=== PATIENT | male | born 1950 | race Caucasian/White ===

== ENCOUNTER 2016-10-31 15:22 | Emergency (ER) | payer OTHER ==
[~2016-10-31] VITALS: Ht 177.8 cm; Wt 120.2 kg
[~2016-10-31 15:22] MED LIST: AMLODIPINE10 MG PO; ASPIRIN EC81 M1 PO; ATENOLOL50 MG PO; BACTRIM DS 8001 TAB PO; CLONIDINE HCL0.1 MG PO; CLONIDINE HYDR0.1 MG PO; FLEXERIL 5MG TAB5 MG PO; GLIMEPIRIDE1 MG PO; GOOD SENSE ASP325 MG PO; HYZAAR 25 MG-101 TAB PO; LANTUS SOL100 UNIT/1 SC; LANTUS SOLOS100 U/ML SC; LEVOTHYROXIN0.137 MG PO; LEVOTHYROXINE137 MCG PO; MEDROL4 MG PO; METOPROLOL TAR100 M1 PO; MIRALAX17 GM PO; OMEPRAZOLE40 MG PO; PERCOCET 325 MG1 TA2 PO; PRAVASTATIN SOD40 MG PO; PRAVASTATIN40 MG PO; PYRIDIUM200 MG PO; ROXICODONE5 MG PO; SENNA CON/DOCUS1 TAB PO; TAMSULOSIN HCL0.4 M1 PO; TRAZODONE HCL150 M1 PO; TRAZODONE150 MG PO; ULTRAM(MONOGRAP50 MG PO; VALIUM2 MG PO; VALIUM5 M1 PO; VICODIN5-300 PO; VICTOZA 3-0.6 MG/0.1 PO; VICTOZA6 MG/ML SC; VOLTAREN GEL1% TOP; ZOFRAN4 M1 SL
--- NOTE | 2016-10-31 15:54 | ED DYSPNEA/ASTHMA COMPLAINT ---
History of Present Illness General Chief Complaint: Dyspnea (COPD, CHF, Other) Stated Complaint: BIBA FOR DYSPNEA ON EXERTION Source: patient, old records Exam Limitations: no limitations Allergies Coded Allergies: morphine (Mild, LOOPY 10/31/16) hydromorphone (DEPRESSED RESPIRATIONS 10/31/16) Reconcile Medications Amlodipine Besylate (Amlodipine) 10 MG TABLET 1 TAB PO DAILY HEART (Reported) Aspirin (Ecotrin*) 325 MG TABLET.DR 1 TAB PO DAILY HEART/BLOOD (Reported) Clonidine HCl 0.1 MG TABLET 1 TAB PO BID BP (Reported) Fluticasone/Vilanterol (Breo Ellipta 100-25 Mcg INH) (Unknown Strength) BLST.W.DEV (Unknown Dose) INH PRN RESPIRATORY (Reported) Folic Acid 1 MG TABLET 1 TAB PO DAILY SUPPLEMENT (Reported) Glimepiride 1 MG TAB 1 TAB PO DAILY DIABETES (Reported) Insulin Glargine,Hum.rec.anlog (Lantus Solostar) 100 UNIT/1 ML INSULN.PEN 68 UNITS SC AT BEDTIME DIABETES (Reported) Levothyroxine Sodium 137 MCG TABLET 2 TAB PO DAILY AC THYROID (Reported) Liraglutide (Victoza 3-Zeus) 0.6 MG/0.1 ML PEN.INJCTR 1.8 MG PO DAILY DIABETES (Reported) Losartan/Hydrochlorothiazide (Losartan-Hctz 100-25 MG Tab) 100 MG-25 MG TABLET 1 TAB PO DAILY BP (Reported) Metoprolol Tartrate 100 MG TABLET 1 TAB PO DAILY HEART (Reported) Omeprazole 40 MG CAPSULE.DR 1 CAP PO DAILY GI (Reported) Pravastatin Sodium (Pravastatin) 40 MG TAB 2 TAB PO QPM CHOLESTEROL (Reported ) Tamsulosin HCl 0.4 MG CAP.ER.24H 1 CAP PO DAILY PROSTATE (Reported) Trazodone HCl 150 MG TABLET 2 TAB PO QPM SLEEP (Reported) Triage Note: BIBA FROM HOME FOR SOB XMONTHS, PALPITATIONS, AND RIGHT SIDED CHEST PAIN. PT STATES PAIN RADIATES INTO BACK. UPON ARRIVAL PT A+OX4, CHEERFUL, SPEAKING IN LONG SENTENCES WITH NO RESP DIFFICULTY. 02 97% ON RA. Triage Nurses Notes Reviewed? yes Onset: Gradual Duration: constant Timing: recent history Severity: severe Activities at Onset: none HPI: Patient is a 66-year-old male with a past medical history of type 2 diabetes insulin-dependent, CKD, COPD not on home O2, previous smoker for 40 year history of 4 times a day smoking discontinued smoking approximately 3 years ago, CAD with 2 stents and thyroid cancer in remission who presents to emergency room same that yesterday evening at rest patient had dyspepsia epigastric discomfort and belching gas pain in which he states that it went away however an hour later patient then started complaining of gradual onset of substernal chest heaviness. Patient states that the chest heaviness has persisted for the past 18 hours and which she has had associated symptoms of left neck and jaw and arm heaviness. Patient does present with a remote chronic history of dyspnea and dyspnea on exertion FOR THE past 18 hours symptoms have been worse. Patient did take 325 mg aspirin today Patient denies any fever, chills, nausea vomiting back pain abdominal pain leg swelling hemoptysis (SEVEN CHANG) Vital Signs & Intake/Output Vital Signs & Intake/Output Vital Signs Date Time Temp Pulse Resp B/P Pulse O2 O2 Flow FiO2 Ox Delivery Rate 10/31 1753 86 106/00 10/31 1730 97.2 90 16 100/68 97 Room Air 10/31 1701 87 16 152/84 10/31 1531 83 16 137/90 97 Room Air 10/31 1530 97 Room Air Past History Travel History Traveled to [place] past 21 day No Medical History Any Pertinent Medical History? see below for history Neurological: NONE EENT: NONE Cardiovascular: CAD, hypertension Respiratory: COPD Gastrointestinal: NONE Hepatic: NONE Renal: chronic kidney disease Musculoskeletal: NONE Psychiatric: NONE Endocrine: diabetes, THYROID CA Cancer(s): THYROID CA History of MRSA: No History of VRE: No History of CDIFF: No Surgical History Surgical History: CARDIAC STENTS, THYROIDECTOMY Psychosocial History Who do you live with Significant Other Services at Home None What is your primary language Nepali Tobacco Use: Quit >30 days ago ETOH Use: denies use Illicit Drug Use: denies illicit drug use Family History Family History, If Any: FATHER Relation not specified for: FH: heart disease Hx Contributory? No (SEVEN CHANG) Review of Systems Review of Systems Constitutional: Reports: no symptoms. EENTM: Reports: no symptoms. Respiratory: Reports: see HPI. Cardiovascular: Reports: see HPI. GI: Reports: no symptoms. Genitourinary: Reports: no symptoms. Musculoskeletal: Reports: no symptoms. Skin: Reports: no symptoms. Neurological/Psychological: Reports: no symptoms. Hematologic/Endocrine: Reports: no symptoms. Immunologic/Allergic: Reports: no symptoms. All Other Systems: Reviewed and Negative (CHERYL VARGAS,SEVEN) Physical Exam Physical Exam General Appearance: no apparent distress, alert, comfortable Respiratory: chest non-tender, quiet respiration, decreased breath sounds Comments: HEENT: Normal EENT exam, extraocular motion intact, no nystagmus. Pupils equally round and reactive to light and accommodation. Nose is atraumatic. External auditory canal and Tympanic membranes clear. Pharynx normal. No swelling or edema. Neck: Supple, no lymphadenopathy, normal range of motion without pain or tenderness Back: Nontender, no CVA tenderness. Cardiovascular: Regular rate and rhythms no murmurs rubs or gallops, normal JVP Respiratory: Chest nontender. No respiratory distress.breath sounds clear to auscultation bilaterally Abdomen: Soft, nontender nondistended, no appreciable organomegaly. Normal bowel sounds. No ascites Extremity: No edema, no calf tenderness to palpation, normal and equal pulses. Neuro: Alert oriented x3, motor sensory normal, Skin: No appreciable rash on exposed skin, skin is warm and dry. Psych: Mood and affect is normal, memory and judgment is normal. Core Measures ACS in differential dx? Yes ASA ordered for poss ACS? WAS ADMINISTERED PRIOR TO ARRIVAL Severe Sepsis Present: No Septic Shock Present: No (CHERYL VARGAS,SEVEN) Progress Differential Diagnosis: asthma, AMI, bronchitis, costochondritis, CHF, COPD, musculoskeletal pain, pericarditis, pulmonary embolism, pneumonia, pneumothorax, rib fracture, unstable angina, CAD Diagnostic Imaging: Viewed by Me: Radiology Read. Radiology Impression: no acute abnormality Initial ED EKG: SINUS RHYTHM NOTED 83 BPM, LAD Prior EKG: unchanged Comments: PATIENT: DEEPIKA BRANDT PRESENT AGE: 66 PATIENT ACCOUNT NO: [id number] : 52 LOCATION: [facility] ORDERING PHYSICIAN: SEVEN VARGAS SERVICE DATE: 10/31/169335 EXAM TYPE: RAD - XRY-CHEST XRAY, PA AND LATERAL EXAMINATION: XR CHEST CLINICAL INFORMATION: Shortness breath. Chest pain. COMPARISON: Chest x-ray 03/02/2016 TECHNIQUE: PA and lateral views of the chest were obtained. FINDINGS: Asymmetric elevation of right diaphragm compared to left. No acute abnormality. No pulmonary vascular congestion. Lungs are clear. No pleural effusion pneumothorax. Orthopedic plate and screw at lower cervical spine. Multilevel degenerative spondylosis of dorsal spine Compared to prior study no change. IMPRESSION: No acute abnormality. (CHERYL VARGAS,SEVEN) Plan of Care: Orders Procedure Date/time Status Telemetry/Environmental Health Manager 10/31 1559 Active THYROID STIMULATING HORMONE 10/31 155 Complete TROPONIN LEVEL 10/31 155 Complete LIPASE 10/31 1559 Complete FREE T4 10/31 1559 Complete D-DIMER 10/31 1559 Complete COMPREHENSIVE METABOLIC PANEL 10/31 1559 Complete CBC WITHOUT DIFFERENTIAL 10/31 1559 Complete B-TYPE NATRIURETIC PEP (BNP) 10/31 155 Complete AMYLASE 10/31 155 Complete EKG 10/31 1523 Active Current Medications Sig/Julissa Start time Last Medication Dose Stop Time Status Admin Heparin Sodium 5,000 UNIT ONCE ONE 10/31 1745 CAN (Porcine) 10/31 1746 (Heparin Bolus) Nitroglycerin 0.4 MG ONCE ONE 10/31 1730 CAN (Nitrostat) 10/31 1731 Laboratory Tests 10/31/16 1607: Anion Gap 12, Estimated GFR 17 L, BUN/Creatinine Ratio 11.9, Glucose 69, Calcium 6.1 L, Total Bilirubin 0.6, AST 21, ALT 15 L, Alkaline Phosphatase 77, Troponin I 2.60 *H, Naw-Q-Udlthpxvijr Pept 9880 H, Total Protein 6.3, Albumin 3.4 L, Globulin 2.9, Albumin/Globulin Ratio 1.2, Amylase 45, Lipase 144, TSH < 0.015 L, Free T4 1.77, D-Dimer 430 H, CBC w Diff NO MAN DIFF REQ, RBC 4.71, MCV 77.6 L, MCH 26.6 L, RDW 12.6, MPV 7.0 L, Gran % 74.0, Lymphocytes % 15.3 L, Monocytes % 8.9, Eosinophils % 1.5, Basophils % 0.3, Absolute Granulocytes 5.0, Absolute Lymphocytes 1.0 L, Absolute Monocytes 0.6, Absolute Eosinophils 0.1, Absolute Basophils 0, PUBS MCHC 34.3 Patient on initial exam was in no apparent distress no respiratory distress patient did take 325 mg of aspirin earlier today. Patient still had concerning unrelenting chest heaviness for the past 18 hours. Patient was given sublingual nitroglycerin with no relief of symptoms. I discussed patient with Dr. Lee who evaluated patient's EKG which showed no concerning acute findings and no change from previous EKG on February 2016. It was noted through Dr. Lee that patient had a stress test performed last December with no acute findings however we discussed that due to patient's significant comorbidities and concerning chest heaviness that patient should be admitted. Discussed admission with Dr. RUELAS who evaluate the patient and agrees with disposition and plan. It was noted that patient did have a critical finding of a 2.6 troponin which I discussed again symptoms with Dr. Lee and which after second sublingual nitroglycerin glycerin he still had 5-10 chest heaviness in which at this time Dr. Lee had requested patient to be transferred to [facility] for cardiac catheterization in which Dr. VELAZCO was accepting physician for catheterization. Discussed disposition plan with patient who agrees and signed consent form to be transferred. Patient also was advised by Dr. Lee to receive IV heparin and heparin bolus. Patient had a negative fecal occult blood test administered prior to IV heparin Patient also was provided with Nitropaste and Lopressor On discharge patient was in no apparent distress and stable (SEVEN CHANG) Departure Departure Disposition: OTHER [facility] (ACUTE) Condition: Critical Clinical Impression Primary Impression: ACS (acute coronary syndrome) Secondary Impressions: Acute on chronic renal failure, Elevated troponin Referrals: CARLITA PAGE DO (PCP/Family) Departure Forms: Customer Survey General Discharge Information (SEVEN CHANG) PA/CHESTNUT TANNER Co-Sign Statement Statement: ED Attending supervision documentation- x I saw and evaluated the patient. I have also reviewed all the pertinent lab results and diagnostic results. I agree with the findings and the plan of care as documented in the PA's/CHESTNUT TANNER's documentation. [] I have reviewed the ED Record and agree with the PA's/CHESTNUT TANNER's documentation. [] Additions or exceptions (if any) to the PAs/CHESTNUT TANNER's note and plan are summarized below: [] (JESSENIA ELDRIDGE,SANYA) Critical Care Note Critical Care Note Critical Care Time: 30-74 min (SEVEN CHANG)
[2016-10-31 16:15] LABS: ABSOLUTE BASOPHIL COUNT 0 /CUMM (0.0-0.2); ABSOLUTE EOSINOPHIL COUNT 0.1 /CUMM (0.0-0.7); ABSOLUTE MONOCYTE COUNT 0.6 /CUMM (0.10-0.60); BASOPHIL % 0.3 % (0.0-2.0); EOSINOPHIL % 1.5 % (0-5); HEMATOCRIT 36.6 % (42-52); MEAN CORPUSCULAR HGB 26.6 PG (27.0-31.0); MEAN CORPUSCULAR HGB CONC 34.3 G/DL (33.0-37.0); MEAN CORPUSCULAR VOLUME 77.6 FL (80.0-94.0); PLATELET COUNT 277 /CUMM (130-400); RBC DISTRIBUTION WIDTH 12.6 % (11.5-14.5); RED BLOOD CELL CT 4.71 /CUMM (4.70-6.10); WHITE BLOOD CELL COUNT 6.8 /CUMM (4.8-10.8)
[2016-10-31] MEDS ORDERED: ASPIRIN EC325 M2 PO (16:21)
[2016-10-31] MEDS ORDERED: FOLIC ACID1 M1 PO (16:24)
[2016-10-31] MEDS ORDERED: LOSARTAN-HCTZ1 EAC2 PO (16:24)
[2016-10-31] MEDS ORDERED: BREO ELLIPTA 11 EACH INH (16:25)
--- NOTE | 2016-10-31 17:07 | RADIOLOGY REPORT ---
EXAMINATION: XR CHEST CLINICAL INFORMATION: Shortness breath. Chest pain. COMPARISON: Chest x-ray 03/02/2016 TECHNIQUE: PA and lateral views of the chest were obtained. FINDINGS: Asymmetric elevation of right diaphragm compared to left. No acute abnormality. No pulmonary vascular congestion. Lungs are clear. No pleural effusion pneumothorax. Orthopedic plate and screw at lower cervical spine. Multilevel degenerative spondylosis of dorsal spine Compared to prior study no change. IMPRESSION: No acute abnormality.
[2016-10-31 17:53] VITALS: BP 106/00
[2017-01-11] MEDS ORDERED: LIPITOR80 M1 PO (15:58)
[2017-01-11] MEDS ORDERED: ASPIRIN EC81 M1 PO (15:58)
[2017-01-11] MEDS ORDERED: BRILINTA90 M1 PO (15:58)
[2017-01-11] MEDS ORDERED: ISOSORBIDE MONO60 M1 PO (15:58)
[2017-01-11] MEDS ORDERED: RENVELA800 M1 PO (15:59)
[2017-01-11] MEDS ORDERED: NORVASC10 M1 PO (15:59)
== END 2016-10-31 17:57 | disposition short-term general hospital (02) ==
LOC: ERH 15:22
PROVIDERS: Physician Assistant
DX: I24.8 Other forms of acute ischemic heart disease (principal); N17.9 Acute kidney failure, unspecified; N18.9 Chronic kidney disease, unspecified; R77.8 Other specified abnormalities of plasma proteins; I10 Essential (primary) hypertension; J44.9 Chronic obstructive pulmonary disease, unspecified; Z87.891 Personal history of nicotine dependence
CPT/HCPCS: 93005; 93010; 96374; 96375; 99291; J1644; J3490

== ENCOUNTER → 2017-01-17 | Day surgery (SDC) | payer OTHER, MEDICARE ==
[~2017-01-17] VITALS: Ht 177.8 cm; Wt 108.9 kg
[~2017-01-17] MED LIST changes: +ASPIRIN EC325 M2 PO; +BREO ELLIPTA 11 EACH INH; +BRILINTA90 M1 PO; +FOLIC ACID1 M1 PO; +ISOSORBIDE MONO60 M1 PO; +LANTUS SOL100 UNIT/1 SQ; +LASIX40 M1 PO; +LEVEMIR100 UNIT/1 SC; +LIPITOR80 M1 PO; +LOSARTAN-HCTZ1 EAC2 PO; +NEPRO CARB STE237 ML PO; +NORVASC10 M1 PO; +PLAVIX75 M1 PO; +PROAIR HFA8.5 GM INH; +RENVELA800 M1 PO; +ROZEREM8 M1 PO; +SENNA S TABLET1 EACH PO; +SYMBICORT 16010.2 GM INH; +SYNTHROID200 MCG PO; +SYNTHROID25 MCG PO; +XANAX0.5 M1 PO; +ZOLOFT100 M1 PO; +ZOLOFT50 M1 PO
--- NOTE | 2017-01-17 09:55 | Operative Report ---
Operative/Inv Procedure Report Surgery Date: 01/17/17 Name of Procedure: L BRACHEOCEPHALIC AV FISTULA Pre-Operative Diagnosis: Chronic kidney disease Post-Operative Diagnosis: Same Estimated Blood Loss: scant Surgeon/Log Buyer: EDMUNDO PENA MD Anesthesia: local monitored anesthesi Operative/Procedure Note Note: The patient was brought to the operating room and placed on the operating table in the supine position and prepped and draped in the usual fashion. Prior to starting the procedure, a timeout was taken to confirm the patient and procedure. Additionally, a preoperative dose of Ancef was administered prior to incision. We began by anesthetizing the region beneath the antecubital crease on the left arm with 1% lidocaine and half percent Marcaine mixed 50-50. Approximately 3 cm incision was made to encompass the cephalic vein and the brachial artery. We dissected down to the brachial artery through the aponeurosis of the biceps muscle and encircled it proximally and distally. The cephalic vein was freed up for approximately 3 cm, and ligated distally at a bifurcation. The patient was given 3000 units of heparin which were allowed to circulate. We then swung the cephalic vein over to approximate the brachial artery. An end-to-side anastomosis was performed with a running 6-0 Prolene suture. At the completion, there was a strong thrill felt in the cephalic vein and a palpable left radial pulse. I irrigated the wound with nonheparinized saline. Some topical fibrillar was placed for hemostasis. The wound was closed in 2 layers including a running 3-0 Vicryl for the subcutaneous tissues, a running 4-0 Monocryl for the subcuticular layer and topical skin glue was placed. I was present and scrubbed throughout the procedure, there were no specimens sent. Needle counts were correct. CC: JULIA CHE MD; Geo SHINE MD
== END ==
LOC: STS 01:02
DX: E11.22 Type 2 diabetes mellitus with diabetic chronic kidney disease (principal); I13.10 Hypertensive heart and chronic kidney disease without heart failure, with stage 1 through stage 4 chronic kidney disease, or unspecified chronic kidney disease; N18.6 End stage renal disease; Z79.4 Long term (current) use of insulin; J44.9 Chronic obstructive pulmonary disease, unspecified; Z87.891 Personal history of nicotine dependence
CPT/HCPCS: J0690; J1644; J2250

== ENCOUNTER 2017-01-18 11:15 | Emergency (ER) | payer OTHER, MEDICARE ==
[~2017-01-18] VITALS: Ht 177.8 cm; Wt 108.9 kg
[~2017-01-18 11:15] MED LIST changes: -LANTUS SOL100 UNIT/1 SQ; -LASIX40 M1 PO; -LEVEMIR100 UNIT/1 SC; -NEPRO CARB STE237 ML PO; -PLAVIX75 M1 PO; -PROAIR HFA8.5 GM INH; -ROZEREM8 M1 PO; -SENNA S TABLET1 EACH PO; -SYMBICORT 16010.2 GM INH; -SYNTHROID200 MCG PO; -SYNTHROID25 MCG PO; -XANAX0.5 M1 PO; -ZOLOFT100 M1 PO; -ZOLOFT50 M1 PO
--- NOTE | 2017-01-18 13:19 | ED CARDIAC/CP/PALPITATIONS ---
History of Present Illness General Chief Complaint: General Adult Stated Complaint: PT FEEL LIKE HIS HEART IS POUNDING Source: patient, family, old records Exam Limitations: no limitations Vital Signs & Intake/Output Vital Signs & Intake/Output Vital Signs Date Time Temp Pulse Resp B/P Pulse O2 O2 Flow FiO2 Ox Delivery Rate 01/18 1330 97.7 92 18 131/75 96 Room Air 01/18 1144 98.9 96 20 111/69 100 Room Air Allergies Coded Allergies: morphine (Mild, LOOPY 01/18/17) hydromorphone (DEPRESSED RESPIRATIONS 01/18/17) Uncoded Allergies: CONTRAST DYE (CONTRAINDICATED 01/11/17) Reconcile Medications Amlodipine Besylate (Amlodipine) 10 MG TABLET 1 TAB PO DAILY HEART (Reported) Amlodipine Besylate (Norvasc) 10 MG TABLET 1 TAB PO DAILY HTN (Reported) Aspirin (Ecotrin*) 325 MG TABLET.DR 1 TAB PO DAILY HEART/BLOOD (Reported) Aspirin (Ecotrin*) 81 MG TABLET.DR 1 TAB PO DAILY CAD (Reported) Atorvastatin Calcium (Lipitor) 80 MG TABLET 1 TAB PO DAILY CHOLESTEROL ( Reported) Clonidine HCl 0.1 MG TABLET 1 TAB PO BID BP (Reported) Fluticasone/Vilanterol (Breo Ellipta 100-25 Mcg INH) (Unknown Strength) BLST.W.DEV (Unknown Dose) INH PRN RESPIRATORY (Reported) Folic Acid 1 MG TABLET 1 TAB PO DAILY SUPPLEMENT (Reported) Insulin Glargine,Hum.rec.anlog (Lantus Solostar) 100 UNIT/1 ML INSULN.PEN 62 UNITS SC AT BEDTIME DIABETES (Reported) Isosorbide Mononitrate (Isosorbide Mononitrate ER) 60 MG TAB.ER.24H 1 TAB PO DAILY CAD (Reported) Levothyroxine Sodium 137 MCG TABLET 2 TAB PO DAILY AC THYROID (Reported) Liraglutide (Victoza 3-Zeus) 0.6 MG/0.1 ML PEN.INJCTR 1.8 MG PO DAILY DIABETES (Reported) Metoprolol Tartrate 100 MG TABLET 1 TAB PO DAILY HEART (Reported) Omeprazole 40 MG CAPSULE.DR 1 CAP PO DAILY GI (Reported) Sevelamer Carbonate (Renvela) 800 MG TABLET 2 TAB PO TID ESRD (Reported) Tamsulosin HCl 0.4 MG CAP.ER.24H 1 CAP PO DAILY PROSTATE (Reported) Ticagrelor (Brilinta) 90 MG TABLET 1 TAB PO BID CAD (Reported) Trazodone HCl 150 MG TABLET 1 TAB PO QPM SLEEP (Reported) Triage Note: TRIAGE: PT TO ER WITH S/O C/C "I HAD A PROCEDURE DONE YESTERDAY IN MY ARM. THEY PUT A FISTULA IN. I CAME HOME AND WAS FINE UNTIL LAST NIGHT AT 11 PM I TOOK 2 PERCOCET AND I WOKE UP THIS MORNING ABOUT 4 O'CLOCK AND I JUST FEEL TERRIBLE. MY HEAD IS SPINNING. I HAVE NAUSEA. SPOTS BEFORE MY EYES. I THOUGHT MY PULSE WAS A LITTLE HIGH." PT COMPLAINS OF 02/16 TO L ARM S/P PROCEDURE YESTERDAY, SHARP IN NATURE, WORSE WITH MOVEMENT AND PAIN FREE IF NOT MOVING. Triage Nurses Notes Reviewed? yes HPI: Patient is a 67-year-old male postop day 1 left upper extremity AV fistula placement presents complaining of nausea and lightheadedness. Patient reports that he felt nauseous his way home from the surgery yesterday and vomited once. At 5:00 this morning patient awoke with nausea and lightheadedness. Mild to moderate pain to the area of the surgery. Patient took a dose of Percocet yesterday evening, has not taken any pain medication today. Patient concerned that there is infection related to the surgery and presents for evaluation. Surgery was performed at [facility] by Dr. Rodriguez. Patient has not spoken with his surgeon today. Patient denies chest pain, palpitations, difficulty breathing, fevers, chills, abdominal pain, diarrhea (NATALIA VARGAS,JOAN) Past History Travel History Traveled to [place] past 21 day No Medical History Any Pertinent Medical History? 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 No (JOAN MERCADO) Review of Systems Review of Systems Constitutional: Denies: chills, fever. EENTM: Reports: no symptoms. Respiratory: Denies: cough, short of breath. Cardiovascular: Denies: chest pain, palpitations. GI: Reports: nausea, vomiting (1 episode yesterday). Denies: abdominal pain. Musculoskeletal: Reports: see HPI. Skin: Reports: see HPI. Neurological/Psychological: Reports: no symptoms. Hematologic/Endocrine: Reports: bruising (mild around surgical site). Immunologic/Allergic: Reports: no symptoms. (JOAN MERCADO) Physical Exam Physical Exam General Appearance: alert, awake Head: atraumatic, normal appearance Eyes: Bilateral: normal appearance, PERRL, EOMI. Ears, Nose, Throat: normal pharynx, normal ENT inspection, hearing grossly normal Neck: normal inspection, supple, full range of motion Respiratory: normal breath sounds, chest non-tender, no respiratory distress, lungs clear Cardiovascular: regular rate/rhythm Peripheral Pulses: 2+ radial (L) Back: normal inspection, normal range of motion Neurologic/Psych: no motor/sensory deficits, awake, alert, oriented x 3, normal gait Skin: surgical wound left upper extremity anteriorly with Steri-Strips in place. 2-3 cm of surrounding ecchymosis. No erythema. No induration. No drainage Lymphatic: no axillary adenopathy Core Measures ACS in differential dx? Yes ASA ordered for poss ACS? No-ACS ruled out Severe Sepsis Present: No Septic Shock Present: No (JOAN MERCADO) Progress Differential Diagnosis: postoperative infection, postoperative seroma, hematoma, acute coronary syndrome, DVT Initial ED EKG: sinus rhythm 94 bpm left axis deviation, prolonged QT intervals, no acute changes from previous EKG Prior EKG: unchanged Rhythm Strip: normal sinus rhythm (JOAN MERCADO) Plan of Care: Orders Procedure Date/time Status EKG 01/18 1119 Active No signs of infection on exam. Patient denies chest pain or dyspnea. Does not feel similar to previous heart attack. I suspect that symptoms are secondary to anesthesia of his recent seizure as the nausea began on his way home from the hospital yesterday. Discussed with and seen by Dr. Joy. Discussed with Ezequiel Allison PA-C for Dr. Rodriguez: Have patient contact office for his post op visit, usually 10-14 days after surgery. Can be seen earlier if continues with any problems. (JOAN MERCADO) Departure Departure Time of Disposition: 1408 Disposition: HOME OR SELF CARE Condition: Stable Clinical Impression Primary Impression: Nausea Secondary Impressions: Lightheadedness Referrals: CARLITA PAGE DO (PCP/Family) Additional Instructions: Follow up with Dr. Rodriguez for further evaluation. Call today to arrange for your post-operative follow up appointment. Return to the ER if fevers, redness spreading from the surgical wound, pus from the wound or worsening of symptoms. Departure Forms: Customer Survey General Discharge Information (JOAN MERCADO) PA/PUBLICATION MANAGER Co-Sign Statement Statement: ED Attending supervision documentation- [X] I saw and evaluated the patient. I have also reviewed all the pertinent lab results and diagnostic results. I agree with the findings and the plan of care as documented in the PA's/PUBLICATION MANAGER's documentation. [] I have reviewed the ED Record and agree with the PA's/PUBLICATION MANAGER's documentation. [] Additions or exceptions (if any) to the PAs/PUBLICATION MANAGER's note and plan are summarized below: [] (JIMBO ELDRIDGE,TESFAYE Telles) Critical Care Note Critical Care Note Critical Care Time: non-applicable (JOAN MERCADO)
[2017-01-18 13:30] VITALS: BP 131/75
== END 2017-01-18 14:20 ==
LOC: ERH 11:15
DX: R11.0 Nausea (principal); R42 Dizziness and giddiness
CPT/HCPCS: 93005; 93010

== ENCOUNTER 2017-01-24 00:49 | Inpatient (IN) | payer OTHER, MEDICARE ==
[~2017-01-24] VITALS: Ht 177.8 cm; Wt 105.4 kg
--- NOTE | 2017-01-24 00:53 | ED CARDIAC/CP/PALPITATIONS ---
History of Present Illness General Chief Complaint: Chest Pain Stated Complaint: BIBA FOR CHEST PRESSURE Source: patient, old records, EMS Exam Limitations: no limitations Vital Signs & Intake/Output Vital Signs & Intake/Output Vital Signs Date Time Temp Pulse Resp B/P Pulse O2 O2 Flow FiO2 Ox Delivery Rate 01/24 0305 98.2 104 20 161/81 01/24 0305 104 161/81 01/24 0251 98.5 102 20 151/79 97 Nasal 2.0L Cannula 01/24 0204 97 Nasal 2.0L Cannula 01/24 0150 102 22 144/66 97 Nasal 2.0L Cannula 01/24 0135 104 158/72 01/24 0052 99.1 109 22 158/72 98 Nasal 2.0L Cannula Allergies Coded Allergies: morphine (Mild, LOOPY 01/18/17) hydromorphone (DEPRESSED RESPIRATIONS 01/18/17) Uncoded Allergies: CONTRAST DYE (CONTRAINDICATED 01/11/17) Reconcile Medications Amlodipine Besylate (Amlodipine) 10 MG TABLET 1 TAB PO DAILY HEART (Reported) Amlodipine Besylate (Norvasc) 10 MG TABLET 1 TAB PO DAILY HTN (Reported) Aspirin (Ecotrin*) 325 MG TABLET.DR 1 TAB PO DAILY HEART/BLOOD (Reported) Aspirin (Ecotrin*) 81 MG TABLET.DR 1 TAB PO DAILY CAD (Reported) Atorvastatin Calcium (Lipitor) 80 MG TABLET 1 TAB PO DAILY CHOLESTEROL ( Reported) Clonidine HCl 0.1 MG TABLET 1 TAB PO BID BP (Reported) Fluticasone/Vilanterol (Breo Ellipta 100-25 Mcg INH) (Unknown Strength) BLST.W.DEV (Unknown Dose) INH PRN RESPIRATORY (Reported) Folic Acid 1 MG TABLET 1 TAB PO DAILY SUPPLEMENT (Reported) Insulin Glargine,Hum.rec.anlog (Lantus Solostar) 100 UNIT/1 ML INSULN.PEN 62 UNITS SC AT BEDTIME DIABETES (Reported) Isosorbide Mononitrate (Isosorbide Mononitrate ER) 60 MG TAB.ER.24H 1 TAB PO DAILY CAD (Reported) Levothyroxine Sodium 137 MCG TABLET 2 TAB PO DAILY AC THYROID (Reported) Liraglutide (Victoza 3-Zeus) 0.6 MG/0.1 ML PEN.INJCTR 1.8 MG PO DAILY DIABETES (Reported) Metoprolol Tartrate 100 MG TABLET 1 TAB PO DAILY HEART (Reported) Omeprazole 40 MG CAPSULE.DR 1 CAP PO DAILY GI (Reported) Sevelamer Carbonate (Renvela) 800 MG TABLET 2 TAB PO TID ESRD (Reported) Tamsulosin HCl 0.4 MG CAP.ER.24H 1 CAP PO DAILY PROSTATE (Reported) Ticagrelor (Brilinta) 90 MG TABLET 1 TAB PO BID CAD (Reported) Trazodone HCl 150 MG TABLET 1 TAB PO QPM SLEEP (Reported) Triage Nurses Notes Reviewed? yes Onset: Gradual Duration: day(s):, waxing and waning Timing: recent history Quality/Severity: moderate Location: central Radiation: no radiation Activities at Onset: none Prior Chest Pain/Card Workup: heart attack Aspirin Today: 325 mg x 1, provided by EMS Associated Symptoms: chest pain, dyspnea, HPI: 67yo gentleman, h/o stents x 3 from [place] 2 months ago, presents with 1 day of substernal chest pressure, off and on, associated with shortness of breath, exertional, with pre-syncopal symptoms. He notes, "I can't lay flat... I prefer to sit straight up.... I've been like this all day." No lower extremity swelling, fever, chills, cough, sputum. Past History Travel History Traveled to [place] past 21 day No Medical History Any Pertinent Medical History? 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 No Review of Systems Review of Systems Constitutional: Reports: no symptoms. EENTM: Reports: no symptoms. Respiratory: Reports: no symptoms. Cardiovascular: Reports: no symptoms. GI: Reports: no symptoms. Genitourinary: Reports: no symptoms. Musculoskeletal: Reports: no symptoms. Skin: Reports: no symptoms. Neurological/Psychological: Reports: no symptoms. Hematologic/Endocrine: Reports: no symptoms. Immunologic/Allergic: Reports: no symptoms. All Other Systems: Reviewed and Negative Physical Exam Physical Exam General Appearance: well developed/nourished, mild distress Head: atraumatic, normal appearance Eyes: Bilateral: normal appearance. Ears, Nose, Throat: normal pharynx, normal ENT inspection Neck: normal inspection, supple, full range of motion Respiratory: normal breath sounds, chest non-tender, no respiratory distress, quiet respiration, lungs clear Cardiovascular: regular rate/rhythm Gastrointestinal: normal bowel sounds, soft, non-tender, no organomegaly Rectal: normal exam, heme negative stool Back: normal inspection, normal range of motion Extremities: normal inspection, normal capillary refill, normal range of motion, trace edema Neurologic/Psych: no motor/sensory deficits, awake, alert, oriented x 3 Skin: intact, normal color, warm/dry Core Measures ACS in differential dx? Yes ASA ordered for poss ACS? Yes-ordered Severe Sepsis Present: No Septic Shock Present: No Progress Differential Diagnosis: AMI, CHF/pulm edema, costochondritis, pneumonia Plan of Care: Orders Procedure Date/time Status Admit to inpatient 01/25 332 Active Patient Data 01/24 030 Active TROPONIN LEVEL 01/24 53 Complete PARTIAL THROMBOPLASTIN TIME 01/24 53 Complete PROTHROMBIN TIME 01/24 53 Complete COMPREHENSIVE METABOLIC PANEL 01/24 53 Complete CBC WITHOUT DIFFERENTIAL 01/24 53 Complete EKG 01/24 51 Active Current Medications Sig/Julissa Start time Last Medication Dose Stop Time Status Admin Heparin Sodium 25,000 UNIT Q24H 01/24 330 UNVr (Porcine) (Heparin) Sodium Chloride 500 ML Heparin Sodium 5,000 UNIT ONCE ONE 01/24 330 UNVr (Porcine) 01/24 331 (Heparin Bolus) Laboratory Tests 01/24/17 0125: Anion Gap 13, Estimated GFR 14 L, BUN/Creatinine Ratio 9.8, Glucose 98, Calcium 6.6 L, Total Bilirubin 0.7, AST 19, ALT 17 L, Alkaline Phosphatase 91, Troponin I 0.61 *H, Total Protein 6.2 L, Albumin 3.5, Globulin 2.7, Albumin/ Globulin Ratio 1.3, PT 11.8, INR 1.13, APTT 30, CBC w Diff NO MAN DIFF REQ, RBC 3.90 L, MCV 79.7 L, MCH 26.4 L, RDW 13.5, MPV 7.1 L, Gran % 80.7 H, Lymphocytes % 10.5 L, Monocytes % 7.7, Eosinophils % 1.1, Basophils % 0 L, Absolute Granulocytes 8.2 H, Absolute Lymphocytes 1.1 L, Absolute Monocytes 0.8 H, Absolute Eosinophils 0.1, Absolute Basophils 0, PUBS MCHC 33.2 Diagnostic Imaging: Viewed by Me: Radiology Read. Discussed w/RAD: Radiology Read. CXR Impression: MILD EDEMA... FULL REPORT BELOW. Pre-Hospital EKG: normal axis, normal intervals, normal p-waves, normal QRS complex, normal sinus rhythm Initial ED EKG: normal axis, normal intervals, normal p-waves, normal QRS complex, normal sinus rhythm, q waves v1,v2.. no change from prior Comments: PATIENT: DEEPIKA BRANDT PRESENT AGE: 67 PATIENT ACCOUNT NO: [id number] : 52 LOCATION: [facility] ORDERING PHYSICIAN: ONI GARCIA MD SERVICE DATE: 01/24/17 EXAM TYPE: RAD - XRY-PORTABLE CHEST XRAY EXAMINATION: XR PORTABLE CHEST CLINICAL INFORMATION: Dyspnea. COMPARISON: Chest radiograph 10/31/2016. TECHNIQUE: Portable AP view of the chest was obtained. FINDINGS: There is hilar vascular engorgement and increased interstitial markings with a lower lobe predominant distribution. Airspace disease cannot be excluded. There is central peribronchial thickening. No pneumothorax. The heart and upper mediastinal contours unremarkable. No acute osseous finding. Chronic changes of an anterior cervical discectomy and fusion within the lower cervical spine is done. IMPRESSION: There is hilar vascular engorgement and mild interstitial edema. DICTATED BY: KURT CANNON MD DATE/TIME DICTATED:01/24/17150 FISHER REEF NET:SAVANA DATE/TIME TRANSCRIBED:01/24/17150 CONFIDENTIAL, DO NOT COPY WITHOUT APPROPRIATE AUTHORIZATION. <Electronically signed in Other Vendor System> SIGNED BY: KURT CANNON MD 01/24 Departure Departure Disposition: STILL A PATIENT Condition: Stable Clinical Impression Primary Impression: Acute coronary syndrome Referrals: CARLITA PAGE DO (PCP/Family) Departure Forms: Customer Survey General Discharge Information Comments 4/17/17, 2:59am...discussed with dr. moreland. pt to be admitted to icu given + troponin. medical management. Admission Note Spoke With: RICH PELAEZ MDAlia Documentation of Exam: Documentation of any treatments & extenuating circumstances including Concerns Regarding Discharge (functional status, medication knowledge or non-compliance, living conditions, etc.) that warrant an admission rather than observation: pt with esrd, positive troponin, feeling better... given his comorbidities, pt to be admitted to the icu, cards to evaluate in AM. Critical Care Note Critical Care Note Critical Care Time: 30-74 min
[2017-01-24 01:43] LABS: ABSOLUTE BASOPHIL COUNT 0 /CUMM (0.0-0.2); ABSOLUTE EOSINOPHIL COUNT 0.1 /CUMM (0.0-0.7); ABSOLUTE GRANULOCYTE CT 8.2 /CUMM (1.4-6.5); ABSOLUTE LYMPH COUNT 1.1 /CUMM (1.2-3.4); ABSOLUTE MONOCYTE COUNT 0.8 /CUMM (0.10-0.60); BASOPHIL % 0 % (0.0-2.0); EOSINOPHIL % 1.1 % (0-5); GRANULOCYTE % 80.7 % (42.2-75.2); HEMATOCRIT 31.1 % (42-52); MEAN CORPUSCULAR HGB 26.4 PG (27.0-31.0); MEAN CORPUSCULAR HGB CONC 33.2 G/DL (33.0-37.0); MEAN CORPUSCULAR VOLUME 79.7 FL (80.0-94.0); MEAN PLATELET VOLUME 7.1 FL (7.4-10.4); PLATELET COUNT 311 /CUMM (130-400); RBC DISTRIBUTION WIDTH 13.5 % (11.5-14.5); WHITE BLOOD CELL COUNT 10.2 /CUMM (4.8-10.8)
[2017-01-24 01:52] LABS: PT 11.8 SEC (9.4-12.5); PTT 30 SEC (25-37)
--- NOTE | 2017-01-24 01:57 | RADIOLOGY REPORT ---
EXAMINATION: XR PORTABLE CHEST CLINICAL INFORMATION: Dyspnea. COMPARISON: Chest radiograph 10/31/2016. TECHNIQUE: Portable AP view of the chest was obtained. FINDINGS: There is hilar vascular engorgement and increased interstitial markings with a lower lobe predominant distribution. Airspace disease cannot be excluded. There is central peribronchial thickening. No pneumothorax. The heart and upper mediastinal contours unremarkable. No acute osseous finding. Chronic changes of an anterior cervical discectomy and fusion within the lower cervical spine is done. IMPRESSION: There is hilar vascular engorgement and mild interstitial edema.
--- NOTE | 2017-01-24 03:19 | History & Physical ---
LUKE ELDRIDGE,DAILY 01/24/17 0314: General Information and HPI MD Statement: I have seen and personally examined DEEPIKA BRANDT and documented this H&P. The patient is a 67 year old M who presented with a patient stated chief complaint of []. Source of Information: patient, family, EMS Exam Limitations: no limitations History of Present Illness: Patient is a 67-year-old male with significant past medical history of chronic back pain , cervical spine surgery(2013), hypertension, hyperlipidemia, hypothyroidism, type 2 diabetes mellitus, diabetic neuropathy, end-stage renal disease, AVF in left arm ( 01/17/2017, not used for dialysis), coronary artery disease, RCA 100%,distal LAD 80% s/p 6 stent, last stent placement was done 2 months ago, presented with history of gradually progressive heaviness of the chest, shortness of breath with exertion and presyncopal symptoms since 1 day He was complaining of chest pain localized to the center of the chest, 03/19. He feels like elephant is sitting on his chest. He took a couple of Tums but it did not help him. He thinks this pain is different from his previous pain when he had [place]. He was also complaining of generalized weakness, anorexia and decreased appetite. He lost around 30lb. According to the patient, he was not able to the sleep last night, he was sitting on the kitchen table all night. He feels short of breath, more when lying down and taking deep breathing. Denies cough, sore throat, stress, changes in the medication, palpitation, dizziness, dysuria, belly pain, leg swelling. According to him when he has his last WY, couple of years ago. He was sent to [facility] angiography and angioplasty. From there he was sent [place]. It was later decided him to have angioplasty. Because of the dye his kidney got affected, and he needed peritoneal dialysis twice.He had AVF 7 days ago, for possible dialysis in future. . Allergies -morphine, hydromorphine Family history -mother - heart disease Personal [id number] quit 4 years ago after smoking for about 40 years, alcohol-quit 30 years ago. Allergies/Medications Allergies: Coded Allergies: morphine (Mild, LOOPY 01/18/17) hydromorphone (DEPRESSED RESPIRATIONS 01/18/17) Uncoded Allergies: CONTRAST DYE (CONTRAINDICATED 01/11/17) Home Med list Amlodipine Besylate (Norvasc) 10 MG TABLET 1 TAB PO DAILY HTN (Reported) Aspirin (Ecotrin*) 81 MG TABLET.DR 1 TAB PO DAILY CAD (Reported) Atorvastatin Calcium (Lipitor) 80 MG TABLET 1 TAB PO DAILY CHOLESTEROL ( Reported) Clonidine HCl 0.1 MG TABLET 1 TAB PO BID BP (Reported) Folic Acid 1 MG TABLET 1 TAB PO DAILY SUPPLEMENT (Reported) Insulin Glargine,Hum.rec.anlog (Lantus Solostar) 100 UNIT/1 ML INSULN.PEN 62 UNITS SC AT BEDTIME DIABETES (Reported) Isosorbide Mononitrate (Isosorbide Mononitrate ER) 60 MG TAB.ER.24H 1 TAB PO DAILY CAD (Reported) Levothyroxine Sodium 137 MCG TABLET 2 TAB PO DAILY AC THYROID (Reported) Liraglutide (Victoza 3-Zeus) 0.6 MG/0.1 ML PEN.INJCTR 1.8 MG PO DAILY DIABETES (Reported) Metoprolol Tartrate 100 MG TABLET 1 TAB PO DAILY HEART (Reported) Sevelamer Carbonate (Renvela) 800 MG TABLET 2 TAB PO TID ESRD (Reported) Tamsulosin HCl 0.4 MG CAP.ER.24H 1 CAP PO DAILY PROSTATE (Reported) Ticagrelor (Brilinta) 90 MG TABLET 1 TAB PO BID CAD (Reported) Trazodone HCl 150 MG TABLET 1 TAB PO QPM SLEEP (Reported) Past History Travel History Traveled to [place] past 21 day No Medical History Neurological: NONE EENT: NONE Cardiovascular: CAD, hypertension Respiratory: COPD Gastrointestinal: NONE Hepatic: NONE Renal: chronic kidney disease, L ARM AVF PLACED 01/17/17 Musculoskeletal: chronic back pain, ?BACK PROBLEM REQUIRE SX Psychiatric: NONE Endocrine: diabetes Blood Disorders: NONE Cancer(s): THYROID CA 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 Denies: chills, diaphoresis, fever. Cardiovascular: Reports: orthopena, peripheral edema. Denies: chest pain, edema, palpitations. Respiratory: Reports: orthopnea, short of breath. Denies: cough, hemoptysis, sputum production, stridor, wheezing. GI: Denies: abdominal pain, bloating, constipation, diarrhea, distention, bowel incontinence, melena, nausea, bloody stool. Genitourinary: Denies: no symptoms. Musculoskeletal: Denies: no symptoms. Skin: Denies: no symptoms. Neurological/Psychological: Denies: anxiety, depressed. Exam & Diagnostic Data Last 24 Hrs of Vital Signs/I&O Vital Signs Date Time Temp Pulse Resp B/P Pulse O2 O2 Flow FiO2 Ox Delivery Rate 01/24 0430 97.9 99 20 142/69 99 Nasal 2.0L Cannula 01/24 0305 98.2 104 20 161/81 01/24 0305 104 161/81 01/24 0251 98.5 102 20 151/79 97 Nasal 2.0L Cannula 01/24 0204 97 Nasal 2.0L Cannula 01/24 0150 102 22 144/66 97 Nasal 2.0L Cannula 01/24 0135 104 158/72 01/24 0052 99.1 109 22 158/72 98 Nasal 2.0L Cannula Intake & Output 01/24 0800 01/24 0000 01/23 1600 Intake Total 0 Output Total Balance 0 Intake, Oral 0 Patient 106.594 kg Weight Physical Exam General Appearance Alert, Oriented X3, Cooperative, No Acute Distress Skin No Rashes, No Breakdown HEENT Atraumatic, PERRLA, EOMI Neck Supple, No JVD Cardiovascular Normal S1, Normal S2 Lungs Clear to Auscultation, Normal Air Movement Abdomen Soft, No Tenderness, distended Neurological Normal Speech Extremities No Clubbing, No Cyanosis, mild pedal edema Vascular Normal Pulses, Pulses Symmetrical Last 24 Hrs of Labs/Angus: Laboratory Tests 01/24/17 0125: Anion Gap 13, Estimated GFR 14 L, BUN/Creatinine Ratio 9.8, Glucose 98, Calcium 6.6 L, Total Bilirubin 0.7, AST 19, ALT 17 L, Alkaline Phosphatase 91, Troponin I 0.61 *H, Total Protein 6.2 L, Albumin 3.5, Globulin 2.7, Albumin/ Globulin Ratio 1.3, PT 11.8, INR 1.13, APTT 30, CBC w Diff NO MAN DIFF REQ, RBC 3.90 L, MCV 79.7 L, MCH 26.4 L, RDW 13.5, MPV 7.1 L, Gran % 80.7 H, Lymphocytes % 10.5 L, Monocytes % 7.7, Eosinophils % 1.1, Basophils % 0 L, Absolute Granulocytes 8.2 H, Absolute Lymphocytes 1.1 L, Absolute Monocytes 0.8 H, Absolute Eosinophils 0.1, Absolute Basophils 0, PUBS MCHC 33.2 Diagnostic Data EKG Results HR 94,NSR, Qs -V1,V2 CXR Results hilar vascular engorgement and mild interstitial edema. Assessment/Plan Assessment: Patient is a 67-year-old male with significant past medical history of chronic back pain , cervical spine surgery(2013), hypertension, hyperlipidemia, hypothyroidism, type 2 diabetes mellitus, diabetic neuropathy, end-stage renal disease, AVF in left arm ( 01/17/2017, not used for dialysis), coronary artery disease, RCA 100%,distal LAD 80% s/p stent presented with history of gradually progressive heaviness of the chest and shortness of breath since 1 day Vital signs at time of admission-temperature 99.1, pulse 109, respiratory rate 22, blood pressure 158/72, SPO2 98% and on 2 liters of nasal cannula Pertinent labs -hemoglobin 10 point 3, hematocrit 31.1, MCV 79.7, BUN / creatinine-42/4.3 Chest x-ray -hilar vascular engorgement and mild interstitial edema Echocardiogram 12/31/2015 LVEF 55-60%, mild to moderate aortic sclerosis and calcification, and TSH. Mild inferoposterior hypokinesia, Mild diastolic dysfunction Dipyridamole stress with nuclear imaging-no EKG evidence of stress-induced [place] Pulmonary function test 01/01/16 -restrictive ventilatory defect Plan - Chest pain secondary to Coronary artery disease - NSTEMI * We will admit the patient to ICU * We'll continue tab aspirin, isosorbide mononitrate * It is a possibility that patient had stent thrombosis. We will to see the EKG/ troponin. * We will follow the echocardiogram * We will follow cardiology recommendations * We will keep patient NPO for possible coronary catheterization * We'll continue heparin drip till Cardiac catheterization Hypertension * We will continue amlodipine, clonidine Hyperlipidemia * We will continue tablet atorvastatin Hypothyroidism * We'll continue levothyroxine Type 2 diabetes mellitus, * We will check the blood sugar TID/HS * Was given all of according to the sliding scale * Patient already had Lantus 62 U, we will start him on Levemir 31U BID CKD * Patient is having history of diabetes and also in the past he had contrast- induced nephropathy. * BUN /creatinine-42/4.3 * Patient recently had a fistula, a week ago for possible dialysis in future * We will regularly follow creatinine * If needed, then we will place a consult for per diem rn Diet -nothing by mouth for possible cardiac catheterization DVT prophylaxis-ALP S CODE STATUS-full code As Ranked By This Provider Problem List: 1. Acute on chronic renal failure 2. Elevated troponin 3. ACS (acute coronary syndrome) Core Measures/Miscellaneous Acute Coronary Syndrome ACS Diagnosis: Yes Date of most recent Echo 12/30/16 Last Known EF % 55 SHERRELL/ARB For EF <40% No No SHERRELL/ARB d/t Medical Contraindication ASA W/I 24hr of admit Yes Beta-Christine W/I 24hrs Yes LDL assessed W/I 24 hrs No Currently on Statin Yes Cerebrovascular Accident CVA/TIA Diagnosis: No Congestive Heart Failure CHF Diagnosis: No Venous Thromboembolism VTE Risk Factors: Age > 40, Obesity No [facility] VTE prophylaxis d/t: No contraindications No VTE Pharm Prophylaxis d/t: No contraindications VTE Diagnosis: No VTE Type: NONE VTE Confirmed by (Test): NONE Severe Sepsis Severe Sepsis Present: No Septic Shock Septic Shock Present: No Miscellaneous Documentation Attending Case Discussed With: Dr Daly Primary Care Physician: CARLITA PAGE DO Patient sees these Specialists Endocrinology-Manuel Agrawal MD Pulmonology-Dr. Moyer Cardiology-Dr. Rosa Mclaughlin Level of Patient Care: Critical Care (CRI) JESUS GREY 01/24/17 0319: Resident Review Statement Resident Statement: examined this patient, discussed with promotions intern, agreed with promotions intern, discussed with family, reviewed EMR data (avail), discussed with nursing , discussed with case mgmt, reviewed images, amended to note Other Findings: 67-year-old male with a past medical history of insulin-dependent diabetes complicated by neuropathy, hypertension, obstructive sleep apnea, severe neck pain secondary to cervical myelopathy, coronary artery disease status post cardiac stents, thyroid cancer status post thyroidectomy, presents to the ED with chief complaints of chest pressure. According to the patient he was in his usual state of health up until Tuesday night into Tuesday morning when he had this chest pressure that kept him up the whole night sitting on the kitchen table because he was unable to catch his breath if he laid down. He states that his symptoms resolved around Tuesday morning and it was not until he went to bed tonight but he woke up about 20 minutes later with similar complaints of chest pressure. He grades his stress pressure is a 6 out of 10 which is a 7 out of 10 when on its worst. He also describes it as a gas bubble and states that he took health services for and Tums but it did not really help with his indigestion. He states that this pain is different from the one that he had when he underwent a cardiac 2 months ago stating that that felt more like a knife going through distress. Of note patient was recently transferred from [facility] 4-year -old about 2 months ago where he underwent 3 stent placements. He states since then he's had a 30 pound weight loss. Patient states that the cardiac cath at left to him developing contrast-induced nephropathy with serum creatinine rising to up to 12. In anticipation of hemodialysis, he underwent AV fistula this past Tuesday. Patient denies any fever, chills, lower extremity swelling, states that he is much compliant with his medications as well as diet, denies nausea, palpitations , headache, lightheadedness, urinary complaints. He followed up with Dr. Lee about a month ago and apparently everything was normal. Vitals on admission blood pressure 158/72, respiratory rate 22, pulse 109, MAXIMUM TEMPERATURE 99.1 saturating 98% on 2 L of oxygen via nasal cannula. On physical exam he is alert and oriented 3 and in no acute distress sitting in bed. HEENT revealed PERRLA, moist mucous membranes. Examination of the neck did not reveal an elevated JVD, cardiovascular exam was pertinent for normal heart sounds, no murmurs rubs or gallops appreciated. A 2 exam was pertinent for mild basilar crackles. Abdominal exam is benign with abdomen soft, nontender, nondistended with normal bowel sounds heard in all 4 quadrants. Examination of lower extremities revealed trace edema bilaterally. Neuro exam was grossly unremarkable. Labs pertinent for normal white blood cell count of 10,200, and H&H of 10.3/31.1 , and MCV of 79.7 and a platelet count of 311,000. Serum chemistries revealed a sodium of 140, potassium of 4.1, bicarbonate 24, anion gap of 13, BUN 42 and a creatinine of 4.3 baseline is 2.6. LFTs pertinent for a total belligerent 0.7, AST/ALT of 19/17 and alkaline phosphatase of 91 with first set of troponin elevated at 0.61. Wax pertinent for an INR of 1.13. Chest x-ray consistent with hilar vascular engorgement and mild interstitial edema. EKG revealed sinus tachycardia with a heart rate of 109, Q waves in lead 1 and aVL. DE interval is 148, QTC 491 within normal axis. Echocardiogram done in December 2015 revealed normal left ventricular ejection fraction of 55-60%, hypokinetic inferior wall with normal posterior wall motion. Stress with nuclear imaging 100 revealed no EKG evidence of stress induced myocardial ischemia. In the ER he received 325 mg of aspirin 1, Lopressor 5 mg IV 1, Nitro-Bid 2 g topical patch was started on heparin drip. Assessment and plan Admit patient to critical care unit # Typical chest pain - NSTEMI vs unstable angina vs stent rethrombosis (unlikely - no EKG changes). elevated trops could just be because of Stage 4 CKD - Trend trops and EKG @ 6:30 AM and 12:30 PM Echocardiogram to rule out any regional wall motion abnormalities Cardiology consult with Dr. Lee in a.m. Nothing by mouth for now in anticipation of rising troponins and the possibility of a cardiac Continue on heparin for anticoagulation for now until pending cardiology recommendations #Coronary artery disease status post stent placement Continue on aspirin, Brillenta 90 mg twice a day, Lipitor 80 mg daily, isosorbide 60 mg daily, metoprolol 100 mg daily #BPH Continue on Flomax 0.4 mg daily #Anxiety Continue trazodone 150 g at bedtime #Hypothyroidism Continue on levothyroxine 0.274 mg #Hypertension Continue on amlodipine 10 mg daily, clonidine 0.1 mg twice a day by mouth #Insulin-dependent diabetes mellitus Patient is on Lantus 62 units at bedtime and on the toes on Continue to hold these medications and start him on Levemir 31 units twice a day and NovoLog sliding scale every 6 hours and sees currently nothing by mouth - DVT prophylaxis On IV heparin Diet Nothing by mouth for now CODE STATUS Full code BENIGNO ELDRIDGE, [facility] 01/24/17 0451: Attending MD Review Statement Attending Statement Attending MD Statement: examined this patient, discuss w/resident/PA/AUTO BODY REPAIR TECHNICIAN, agreed w/resident/PA/AUTO BODY REPAIR TECHNICIAN Attending Assessment/Plan: 67 yo M with h/o CAD s/p 3 stents (~ 2004), T2DM with neuropathy, CKD stage 4 -5 , HTN, PAD, hypothyroidism s/p thyroidectomy for thyroid cancer, was seen in the ER on Oct 31 for chest pain --> ACS--> transferred for cardiac cath to [facility] then to [facility] where he underwent cath and 3 stents were placed. Today, he is here for chest pressure that is ongoing since Tuesday night, causing him dyspnea and orthopnea. He transiently felt better on Tuesday morning but symptoms never completely resolved. Denies nausea, diaphoresis or palpitations. In the ER, nitro and aspirin were given with minimal relief in symptoms per patient. Of note, patient underwent left bracheocephalic AV fistula on January [address] Rodriguez in anticipation of dialysis. Vitals: afebrile, tachycardic to 100-110's, BP 142/69, sats 94% on 2L. Exam: AAO , no distress, No JVD. Chest b/l clear, Heart S1S2, systolic murmur+, Extremities: trace edema. Labs: microcytic anemia, BUN 42, creat 4.3, calcium 6.6, troponin 0.61, EKG: Sinus tachycardia, no acute changes, Qtc 491. CXR: hilar vascular engorgement and mild interstitial edema. Echo (2016): EF 55-60%, mild diastolic dysfunction. Rectal exam: guaiac neg. 1. ACS/ NSTEMI. ICU admit, vitals Q1 hour, serial EKG and troponin, Echo, aspirin, brillinta, IV heparin initiated, guaiac all stools. Cardio consult (Dr. Lee). Check lipid panel, TSH, free T4, HbA1c. Continue nitropaste, BB and statin. NPO pending cardiac eval. 2. Dyspnea/ Orthopnea could also be attributed to mild CHF. Daily weight, strict I/O's, check proBNP. Patient is not hypoxic, cannot appreciate JVD. CXR suggestive of mild interstitial edema. Patient has trace pedal edema. Will hold off on diuretics given patient has stage 4-5 CKD. Await cardiac recs. DVT ppx IV heparin. Full code. TTS > 45 mins
--- NOTE | 2017-01-24 04:52 | Admission Certification ---
Admission Certification Certification Statement - As attending physician, I certify that at the time of - admission, based on clinical presentation, severity of - symptoms, need for further diagnostic testing and - therapeutic interventions, and risk of adverse outcomes - without in-hospital treatment, in my clinical assessment, - this patient requires an acute hospital stay for a minimum - of two nights or longer. I have also considered psychsocial - factors such as support system, advanced age, financial - issues, cognitive issues, and failed out-patient treatments, - past re-admission history, safety of patient, and lack of - compliance as applicable. Specific rationale supporting this admission is: NSTEMI
--- NOTE | 2017-01-24 09:49 | Cons- Cardiology ---
General Information and HPI Consulting Request Date of Consult: 01/24/17 Requested By: BENIGNO ELDRIDGE,JOSE LUIS Reason for Consult: CAD, chest pain History of Present Illness: The patient is a 67-year-old male with history of diabetes mellitus, hypertension, hyperlipidemia, and CAD, status post stents, chronic kidney disease who presents with complaint of chest discomfort. In October he presented with chest discomfort and positive troponin, and he was transferred at that time to [facility] where cardiac catheterization showed multivessel CAD. Stents were placed in his diagonal and ramus arteries. His renal insufficiency was exacerbated by the catheterization, and he temporarily received dialysis which was discontinued after improvement in his renal function. One week ago, he underwent placement of an AV fistula in preparation for possible future dialysis. 2 days ago, he developed substernal chest pressure which has been intermittent since that time. The pressure has been up to an 8 out of 10 in severity, and has been associated with shortness of breath. The shortness of breath is worse with standing up. The chest discomfort is different from what he had 2 months ago, because his pain at that time was a sharp pain. No palpitations. No lightheadedness or dizziness. No nausea or vomiting. No diaphoresis. No syncope. No orthopnea. Allergies/Medications Allergies: Coded Allergies: morphine (Mild, LOOPY 01/18/17) hydromorphone (DEPRESSED RESPIRATIONS 01/18/17) Uncoded Allergies: CONTRAST DYE (CONTRAINDICATED 01/11/17) Home Med List: Amlodipine Besylate (Norvasc) 10 MG TABLET 1 TAB PO DAILY HTN (Reported) Aspirin (Ecotrin*) 81 MG TABLET.DR 1 TAB PO DAILY CAD (Reported) Atorvastatin Calcium (Lipitor) 80 MG TABLET 1 TAB PO DAILY CHOLESTEROL ( Reported) Clonidine HCl 0.1 MG TABLET 1 TAB PO BID BP (Reported) Folic Acid 1 MG TABLET 1 TAB PO DAILY SUPPLEMENT (Reported) Insulin Glargine,Hum.rec.anlog (Lantus Solostar) 100 UNIT/1 ML INSULN.PEN 62 UNITS SC AT BEDTIME DIABETES (Reported) Isosorbide Mononitrate (Isosorbide Mononitrate ER) 60 MG TAB.ER.24H 1 TAB PO DAILY CAD (Reported) Levothyroxine Sodium 137 MCG TABLET 2 TAB PO DAILY AC THYROID (Reported) Liraglutide (Victoza 3-Zeus) 0.6 MG/0.1 ML PEN.INJCTR 1.8 MG PO DAILY DIABETES (Reported) Metoprolol Tartrate 100 MG TABLET 1 TAB PO DAILY HEART (Reported) Sevelamer Carbonate (Renvela) 800 MG TABLET 2 TAB PO TID ESRD (Reported) Tamsulosin HCl 0.4 MG CAP.ER.24H 1 CAP PO DAILY PROSTATE (Reported) Ticagrelor (Brilinta) 90 MG TABLET 1 TAB PO BID CAD (Reported) Trazodone HCl 150 MG TABLET 1 TAB PO QPM SLEEP (Reported) Current Medications: Current Medications Sig/Julissa Start time Last Medication Dose Route Stop Time Status Admin Acetaminophen 650 MG Q6P PRN 01/24 0445 AC PO Acetaminophen 1,000 MG Q6P PRN 01/24 0445 AC IV Amlodipine Besylate 10 MG DAILY 01/24 1000 AC PO Aspirin 0 .STK-MED ONE 01/24 0305 DC PO Aspirin 325 MG ONCE ONE 01/24 0245 DC 01/24 PO 01/24 0246 0305 Aspirin Buffered 81 MG DAILY 01/24 1000 AC PO Atorvastatin Calcium 80 MG 1700 01/24 1700 AC PO Clonidine 0.1 MG BID 01/24 1000 AC PO Folic Acid 1 MG DAILY 01/24 1000 AC PO Heparin Sodium 0 .STK-MED ONE 01/24 0341 DC (Porcine) .ROUTE Heparin Sodium 25,000 UNIT Q24H 01/24 0330 AC 01/24 (Porcine) IV 0345 Sodium Chloride 500 ML Heparin Sodium 5,000 UNIT ONCE ONE 01/24 0330 DC 01/24 (Porcine) IV 01/24 0331 0345 Insulin Aspart 0 TIDAC 01/24 0800 CAN SC Insulin Detemir 31 UNITS BID 01/24 2200 AC SC Insulin Human Regular 0 Q6 01/24 0600 AC 01/24 SC 0637 Isosorbide 60 MG DAILY 01/24 1000 AC Mononitrate PO Levothyroxine Sodium 0.274 MG DAILY AC 01/24 0700 AC 01/24 PO 0700 Metoprolol Tartrate 100 MG DAILY 01/24 1000 AC PO Metoprolol Tartrate 0 .STK-MED ONE 01/24 0305 DC IV Metoprolol Tartrate 5 MG ONCE ONE 01/24 0245 DC 01/24 IV 01/24 0246 0305 Nitroglycerin 0 .STK-MED ONE 01/24 0702 DC TOP Nitroglycerin 0 .STK-MED ONE 01/24 0328 DC SL Nitroglycerin 0.4 MG ONCE ONE 01/24 0315 DC 01/24 SL 01/25 316 0329 Nitroglycerin 0 .STK-MED ONE 01/24 0142 DC TOP Nitroglycerin 2 GM Q6 01/24 0058 AC 01/24 TOP 0700 Sevelamer Carbonate 1,600 MG TID 01/24 1000 AC PO Tamsulosin HCl 0.4 MG DAILY 01/24 1000 AC PO Ticagrelor 90 MG BID 01/24 1000 AC PO Trazodone HCl 150 MG AT BEDTIME 01/24 2200 AC PO Review of Systems Review of Systems: No rash. No tremor. No melena. No hemoptysis. No hematemesis. All other systems were reviewed, and were noted to be negative. 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 Surgical History Surgical History: CARDIAC STENTS THYROIDECTOMY Family History Relations & Conditions If Any: FATHER FH: heart disease Psychosocial History Services at Home: None ETOH Use: denies use Illicit Drug Use: denies illicit drug use Exam & Diagnostic Data Vital Signs and I&O Vital Signs Date Time Temp Pulse Resp B/P Pulse O2 O2 Flow FiO2 Ox Delivery Rate 01/24 0840 96 20 147/73 97 Nasal 2.0L Cannula 01/24 0740 93 20 141/71 94 Nasal 2.0L Cannula 01/24 0627 97.4 95 20 144/72 96 Nasal 2.0L Cannula 01/24 0530 98.0 95 20 140/69 94 Nasal 2.0L Cannula 01/24 0430 97.9 99 20 142/69 99 Nasal 2.0L Cannula 01/24 0305 98.2 104 20 161/81 01/24 0305 104 161/81 01/24 0251 98.5 102 20 151/79 97 Nasal 2.0L Cannula 01/24 0204 97 Nasal 2.0L Cannula 01/24 0150 102 22 144/66 97 Nasal 2.0L Cannula 01/24 0135 104 158/72 01/24 0052 99.1 109 22 158/72 98 Nasal 2.0L Cannula Intake & Output 01/24 1600 01/24 0801/24 0000 01/23 0801/23 0000 Intake Total 0 Output Total 500 Balance -500 0 Intake, Oral 0 Output, Urine 500 Patient 235 lb Weight Physical Exam: Gen: The patient is in no acute distress HEENT: Normal nose, ears, and oropharynx. Pupils equal bilaterally. Conjunctiva normal. Neck: Supple with no JVD, no masses, and no thyromegaly Lungs: few scattered rales with normal respiratory effort Heart: RRR, S1, S2, 1/6 systolic murmur. Trace peripheral edema, 2+ pulses in the lower extremities bilaterally Abdomen: Soft, nontender, no masses. No hepatomegaly. No splenomegaly Extremities: No clubbing or cyanosis. Normal muscle strength in the upper and lower extremities Skin: Normal skin turgor with no skin ulcers or lesions noted. Neuro: Cranial nerves intact. Sensation intact Psych: Alert and oriented 3 with appropriate affect Labs/Angus Results: Laboratory Tests 01/24 01/24 0840 0625 Chemistry Phosphorus (2.5 - 4.5 mg/dL) 5.1 H Magnesium (1.6 - 2.3 mg/dL) 2.8 H Total Bilirubin (0.2 - 1.3 mg/dL) 0.8 Direct Bilirubin (< 0.4 mg/dL) 0.4 AST (17 - 59 U/L) 20 ALT (21 - 72 U/L) 22 Alkaline Phosphatase (< 127 U/L) 78 Troponin I (<0.11 ng/ml) 0.84 *H Total Protein (6.3 - 8.2 g/dL) 6.0 L Albumin (3.5 - 5.0 g/dL) 3.2 L Triglycerides (<150 mg/dL) 86 Cholesterol (< 200 MG/DL) 93 LDL Cholesterol, Calc (65 - 129 mg/dL) 42 L HDL Cholesterol (40 - 60 mg/dL) 34 L Cholesterol/HDL Ratio (0.00 - 4.88 %) 2.7 Urines Urinalysis LIGHT H Urine Color (YEL,AMB,STR) YEL Urine Clarity (CLEAR) CLEAR Urine pH (5.0 - 8.0) 6.0 Ur Specific [place] (1.001 - 1.035) 1.020 Urine Protein (NEG,<30 MG/DL) >=300 H Urine Ketones (NEG) NEG Urine Nitrite (NEG) NEG Urine Bilirubin (NEG) NEG Urine Urobilinogen (0.1 - 1.0 EU/dl) 0.2 Ur Leukocyte Esterase (NEG) NEG Ur Microscopic SEDIMENT EXAMINED Urine RBC (0 - 5 /HPF) RARE Urine WBC (0 - 2 /HPF) RARE Ur Epithelial Cells (NONE,FEW) FEW Granular Casts (NONE /LPF) RARE H Urine Mucus (FEW,NONE) FEW Urine Hemoglobin (NEG) SMALL H Urine Glucose (N MG/DL) NEG 01/24 0125 Chemistry Sodium (137 - 145 mmol/L) 140 Potassium (3.5 - 5.1 mmol/L) 4.1 Chloride (98 - 107 mmol/L) 102 Carbon Dioxide (22 - 30 mmol/L) 24 Anion Gap (5 - 16) 13 BUN (9 - 20 mg/dL) 42 H Creatinine (0.7 - 1.2 mg/dL) 4.3 H Estimated GFR (>60 ml/min) 14 L BUN/Creatinine Ratio (7 - 25 %) 9.8 Glucose (65 - 99 mg/dL) 98 Calcium (8.4 - 10.2 mg/dL) 6.6 L Magnesium (1.6 - 2.3 mg/dL) 2.2 Total Bilirubin (0.2 - 1.3 mg/dL) 0.7 AST (17 - 59 U/L) 19 ALT (21 - 72 U/L) 17 L Alkaline Phosphatase (< 127 U/L) 91 Troponin I (<0.11 ng/ml) 0.61 *H Hku-K-Pquuteexgce Pept (<125 pg/mL) 68490 H Total Protein (6.3 - 8.2 g/dL) 6.2 L Albumin (3.5 - 5.0 g/dL) 3.5 Globulin (1.9 - 4.2 gm/dL) 2.7 Albumin/Globulin Ratio (1.1 - 2.2 %) 1.3 Coagulation PT (9.4 - 12.5 SEC) 11.8 INR (0.90 - 1.17) 1.13 APTT (25 - 37 SEC) 30 Hematology CBC w Diff NO MAN DIFF REQ WBC (4.8 - 10.8 /CUMM) 10.2 RBC (4.70 - 6.10 /CUMM) 3.90 L Hgb (14.0 - 18.0 G/DL) 10.3 L Hct (42 - 52 %) 31.1 L MCV (80.0 - 94.0 FL) 79.7 L MCH (27.0 - 31.0 PG) 26.4 L RDW (11.5 - 14.5 %) 13.5 Plt Count (130 - 400 /CUMM) 311 MPV (7.4 - 10.4 FL) 7.1 L Gran % (42.2 - 75.2 %) 80.7 H Lymphocytes % (20.5 - 51.1 %) 10.5 L Monocytes % (1.7 - 9.3 %) 7.7 Eosinophils % (0 - 5 %) 1.1 Basophils % (0.0 - 2.0 %) 0 L Absolute Granulocytes (1.4 - 6.5 /CUMM) 8.2 H Absolute Lymphocytes (1.2 - 3.4 /CUMM) 1.1 L Absolute Monocytes (0.10 - 0.60 /CUMM) 0.8 H Absolute Eosinophils (0.0 - 0.7 /CUMM) 0.1 Absolute Basophils (0.0 - 0.2 /CUMM) 0 PUBS MCHC (33.0 - 37.0 G/DL) 33.2 Diagnostic Data EKG Results EKG tracing is independently reviewed, and reveals normal sinus rhythm at 94, left atrial abnormality, borderline left axis deviation, possible anteroseptal infarct age undetermined CXR Results There is hilar vascular engorgement and mild interstitial edema. Assessment/Plan Assessment/Plan Assessment: The patient is 67-year-old male with history of diabetes mellitus, chronic kidney disease, CAD status post multiple stents entering with chest pressure 2 days. He has a mild troponin elevation concerning for possible non-ST elevation myocardial infarction, however this may be exacerbated by the chronic kidney disease. When he presented in October he had a troponin of 2.6, and he was transferred for catheterization and stent placement at that time. Chest x-ray is consistent with some degree of congestive heart failure. Recommendations: * Continue aspirin * Continue Brilinta * IV heparin per protocol * Consult nephrology * Echocardiogram * Changed from Imdur to nitroglycerin paste, and titrate to symptom relief and blood pressure. * Sublingual nitroglycerin prn * Continue to monitor serial troponin * Given the significantly elevated creatinine, we will hold off for now on catheterization * Consult nephrology regarding whether a catheterization can be safely performed if needed. He was likely require dialysis after the catheterization. His AV fistula was placed one week ago, and not yet usable. * We will hold off on diuretic therapy for now given the elevated BUN and creatinine. * Continue serial troponin. * Would start diabetic diet since catheterization not planned for today Consult Acknowledgment - Thank you for your consult request.
[2017-01-24 10:00] VITALS: BP 152/86
[2017-01-24 10:51] LABS: PTT 39 SEC (25-37)
--- NOTE | 2017-01-24 13:55 | Cons- Nephrology ---
General Information and HPI Consulting Request Date of Consult: 01/24/17 Requested By: BENIGNO ELDRIDGE,JOSE LUIS Reason for Consult: CKD History of Present Illness: 67 yo male with advanced CKD due to diabetes. He was admitted to [facility] in October of 2016 with NSTEMI, had cardiac cathx2 with stenting. Baseline creatinine was in the 3s, he developed SABRINA and required acute PD for about 4 days before recovering function. Acute catheter was removed and he was followed by [facility] (previously by Dr. Palma) with a creatinine inthe 4s. He had a KAREY AVF created a week ago by Dr. Rodriguez. He now is admitted with substernal chest pressure and SOB. Cardiology is considering repeat cathterization and I was asked to see the patient. Family History: Negative for kidney disease. Allergies/Medications Allergies: Coded Allergies: morphine (Mild, LOOPY 01/18/17) hydromorphone (DEPRESSED RESPIRATIONS 01/18/17) Uncoded Allergies: CONTRAST DYE (CONTRAINDICATED 01/11/17) Home Med List: Amlodipine Besylate (Norvasc) 10 MG TABLET 1 TAB PO DAILY HTN (Reported) Aspirin (Ecotrin*) 81 MG TABLET.DR 1 TAB PO DAILY CAD (Reported) Atorvastatin Calcium (Lipitor) 80 MG TABLET 1 TAB PO DAILY CHOLESTEROL ( Reported) Clonidine HCl 0.1 MG TABLET 1 TAB PO BID BP (Reported) Folic Acid 1 MG TABLET 1 TAB PO DAILY SUPPLEMENT (Reported) Insulin Glargine,Hum.rec.anlog (Lantus Solostar) 100 UNIT/1 ML INSULN.PEN 62 UNITS SC AT BEDTIME DIABETES (Reported) Isosorbide Mononitrate (Isosorbide Mononitrate ER) 60 MG TAB.ER.24H 1 TAB PO DAILY CAD (Reported) Levothyroxine Sodium 137 MCG TABLET 2 TAB PO DAILY AC THYROID (Reported) Liraglutide (Victoza 3-Zeus) 0.6 MG/0.1 ML PEN.INJCTR 1.8 MG PO DAILY DIABETES (Reported) Metoprolol Tartrate 100 MG TABLET 1 TAB PO DAILY HEART (Reported) Sevelamer Carbonate (Renvela) 800 MG TABLET 2 TAB PO TID ESRD (Reported) Tamsulosin HCl 0.4 MG CAP.ER.24H 1 CAP PO DAILY PROSTATE (Reported) Ticagrelor (Brilinta) 90 MG TABLET 1 TAB PO BID CAD (Reported) Trazodone HCl 150 MG TABLET 1 TAB PO QPM SLEEP (Reported) Current Medications: Current Medications Sig/Julissa Start time Last Medication Dose Route Stop Time Status Admin Acetaminophen 650 MG Q6P PRN 01/24 0445 AC PO Acetaminophen 1,000 MG Q6P PRN 01/24 0445 AC IV Amlodipine Besylate 10 MG DAILY 01/24 1000 AC 01/24 PO 1058 Aspirin 0 .STK-MED ONE 01/24 0305 DC PO Aspirin 325 MG ONCE ONE 01/24 0245 DC 01/24 PO 01/24 0246 0305 Aspirin Buffered 81 MG DAILY 01/24 1000 AC 01/24 PO 1059 Atorvastatin Calcium 80 MG 1700 01/24 1700 AC PO Clonidine 0.1 MG BID 01/24 1000 AC 01/24 PO 1058 Folic Acid 1 MG DAILY 01/24 1000 AC 01/24 PO 1059 Heparin Sodium 6,400 UNIT ONCE ONE 01/24 1200 DC 01/24 (Porcine) IV 01/24 1201 1259 Heparin Sodium 0 .STK-MED ONE 01/24 0341 DC (Porcine) .ROUTE Heparin Sodium 25,000 UNIT Q24H 01/24 0330 AC 01/24 (Porcine) IV 0345 Sodium Chloride 500 ML Heparin Sodium 5,000 UNIT ONCE ONE 01/24 0330 DC 01/24 (Porcine) IV 01/24 0331 0345 Insulin Aspart 0 TIDAC 01/24 1700 AC SC Insulin Aspart 0 TIDAC 01/24 0800 CAN SC Insulin Detemir 31 UNITS BID 01/24 2200 AC SC Insulin Human Regular 0 Q6 01/24 0600 DC 01/24 SC 0637 Isosorbide 60 MG DAILY 01/24 1000 DC 01/24 Mononitrate PO 1059 Levothyroxine Sodium 0.274 MG DAILY AC 01/24 0700 AC 01/24 PO 0700 Metoprolol Tartrate 100 MG DAILY 01/24 1000 AC 01/24 PO 1100 Metoprolol Tartrate 0 .STK-MED ONE 01/24 0305 DC IV Metoprolol Tartrate 5 MG ONCE ONE 01/24 0245 DC 01/24 IV 01/24 0246 0305 Nitroglycerin 0 .STK-MED ONE 01/24 0702 DC TOP Nitroglycerin 0 .STK-MED ONE 01/24 0328 DC SL Nitroglycerin 0.4 MG ONCE ONE 01/24 0315 DC 01/24 SL 01/24 0316 0329 Nitroglycerin 0 .STK-MED ONE 01/24 0142 DC TOP Nitroglycerin 2 GM Q6 01/24 0058 AC 01/24 TOP 1255 Sevelamer Carbonate 1,600 MG TID 01/24 1000 AC 01/24 PO 1059 Tamsulosin HCl 0.4 MG DAILY 01/24 1000 AC 01/24 PO 1327 Ticagrelor 90 MG BID 01/24 1000 AC 01/24 PO 1059 Trazodone HCl 150 MG AT BEDTIME 01/24 2200 AC PO Review of Systems Review of Systems: No N/V. Negative except as noted above. 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 Home Services at Home: None Smoking Status: Former Smoker ETOH Use: denies use Illicit Drug Use: denies illicit drug use Exam & Diagnostic Data Vital Signs and I&O Vital Signs Date Time Temp Pulse Resp B/P Pulse O2 O2 Flow FiO2 Ox Delivery Rate 01/24 1327 88 128/68 01/24 1200 97 Nasal 2.0L Cannula 01/24 1100 93 144/90 01/24 1059 93 144/80 01/24 1058 93 144/80 01/24 1058 93 144/80 01/24 1000 98.6 96 18 152/86 95 Room Air 01/24 1000 97 Nasal 2.0L Cannula 01/24 0840 96 20 147/73 97 Nasal 2.0L Cannula 01/24 0740 93 20 141/71 94 Nasal 2.0L Cannula 01/24 0627 97.4 95 20 144/72 96 Nasal 2.0L Cannula 01/24 0530 98.0 95 20 140/69 94 Nasal 2.0L Cannula 01/24 0430 97.9 99 20 142/69 99 Nasal 2.0L Cannula 01/24 0305 98.2 104 20 161/81 01/24 0305 104 161/81 01/24 0251 98.5 102 20 151/79 97 Nasal 2.0L Cannula 01/24 0204 97 Nasal 2.0L Cannula 01/24 0150 102 22 144/66 97 Nasal 2.0L Cannula 01/24 0135 104 158/72 01/24 0052 99.1 109 22 158/72 98 Nasal 2.0L Cannula Intake & Output 01/24 1600 01/24 0400 01/23 0400 01/22 0400 Intake Total 0 Output Total 500 Balance -500 0 Intake, Oral 0 Output, Urine 500 Patient 236 lb 235 lb Weight Physical Exam: NAD. VS as above. Eyes: anicteric, YOAN Neck: no mas or thryomegaly Nodes: negative cervical/inguinal Skin: no rash or induration Lungs: clear P&A CV: no rub or murmur Abd: nontender, no organomegaly, BS positive Exts: no edema, good bruit over KAREY AVF Neuro: A&O, CN intact. No asterixis. Results Pertinent Lab Results: Laboratory Tests 01/24 01/24 01/24 1310 1000 0840 Chemistry Troponin I Pending Coagulation APTT (25 - 37 SEC) 39 H Urines Urinalysis LIGHT H Urine Color (YEL,AMB,STR) YEL Urine Clarity (CLEAR) CLEAR Urine pH (5.0 - 8.0) 6.0 Ur Specific [place] (1.001 - 1.035) 1.020 Urine Protein (NEG,<30 MG/DL) >=300 H Urine Ketones (NEG) NEG Urine Nitrite (NEG) NEG Urine Bilirubin (NEG) NEG Urine Urobilinogen (0.1 - 1.0 EU/dl) 0.2 Ur Leukocyte Esterase (NEG) NEG Ur Microscopic SEDIMENT EXAMINED Urine RBC (0 - 5 /HPF) RARE Urine WBC (0 - 2 /HPF) RARE Ur Epithelial Cells (NONE,FEW) FEW Granular Casts (NONE /LPF) RARE H Urine Mucus (FEW,NONE) FEW Urine Hemoglobin (NEG) SMALL H Urine Glucose (N MG/DL) NEG 01/24 01/24 0625 0125 Chemistry Sodium (137 - 145 mmol/L) 140 Potassium (3.5 - 5.1 mmol/L) 4.1 Chloride (98 - 107 mmol/L) 102 Carbon Dioxide (22 - 30 mmol/L) 24 Anion Gap (5 - 16) 13 BUN (9 - 20 mg/dL) 42 H Creatinine (0.7 - 1.2 mg/dL) 4.3 H Estimated GFR (>60 ml/min) 14 L BUN/Creatinine Ratio (7 - 25 %) 9.8 Glucose (65 - 99 mg/dL) 98 Calcium (8.4 - 10.2 mg/dL) 6.6 L Phosphorus (2.5 - 4.5 mg/dL) 5.1 H Magnesium (1.6 - 2.3 mg/dL) 2.8 H 2.2 Total Bilirubin (0.2 - 1.3 mg/dL) 0.8 0.7 Direct Bilirubin (< 0.4 mg/dL) 0.4 AST (17 - 59 U/L) 20 19 ALT (21 - 72 U/L) 22 17 L Alkaline Phosphatase (< 127 U/L) 78 91 Troponin I (<0.11 ng/ml) 0.84 *H 0.61 *H Ahr-T-Rojusnmrtak Pept (<125 pg/mL) 09124 H Total Protein (6.3 - 8.2 g/dL) 6.0 L 6.2 L Albumin (3.5 - 5.0 g/dL) 3.2 L 3.5 Globulin (1.9 - 4.2 gm/dL) 2.7 Albumin/Globulin Ratio (1.1 - 2.2 %) 1.3 Triglycerides (<150 mg/dL) 86 Cholesterol (< 200 MG/DL) 93 LDL Cholesterol, Calc (65 - 129 mg/dL) 42 L HDL Cholesterol (40 - 60 mg/dL) 34 L Cholesterol/HDL Ratio (0.00 - 4.88 %) 2.7 Coagulation PT (9.4 - 12.5 SEC) 11.8 INR (0.90 - 1.17) 1.13 APTT (25 - 37 SEC) 30 Hematology CBC w Diff NO MAN DIFF REQ WBC (4.8 - 10.8 /CUMM) 10.2 RBC (4.70 - 6.10 /CUMM) 3.90 L Hgb (14.0 - 18.0 G/DL) 10.3 L Hct (42 - 52 %) 31.1 L MCV (80.0 - 94.0 FL) 79.7 L MCH (27.0 - 31.0 PG) 26.4 L RDW (11.5 - 14.5 %) 13.5 Plt Count (130 - 400 /CUMM) 311 MPV (7.4 - 10.4 FL) 7.1 L Gran % (42.2 - 75.2 %) 80.7 H Lymphocytes % (20.5 - 51.1 %) 10.5 L Monocytes % (1.7 - 9.3 %) 7.7 Eosinophils % (0 - 5 %) 1.1 Basophils % (0.0 - 2.0 %) 0 L Absolute Granulocytes (1.4 - 6.5 /CUMM) 8.2 H Absolute Lymphocytes (1.2 - 3.4 /CUMM) 1.1 L Absolute Monocytes (0.10 - 0.60 /CUMM) 0.8 H Absolute Eosinophils (0.0 - 0.7 /CUMM) 0.1 Absolute Basophils (0.0 - 0.2 /CUMM) 0 PUBS MCHC (33.0 - 37.0 G/DL) 33.2 Assessment/Plan Assessment/Recommendations Assessment: CKD stage 5, not yet requiring dialysis. Electroylytes acceptable, except hypocalcemic, and patient not volume overloaded. He has known severe CAD and now presents with chest pressure and subjective SOB. He may requiring further cardiac intervention but he is reluctant given high risk of repeat SABRINA. He realizes that if he does have further renal function decline he would need dialysis by a dialysis catheter and that there is some risk of infection from that line. Eventually he is going to be on dialysis so it would be unfoturnate to suffer further myocardial damange just to avoid catheter and dialysis a few weeks/months earlier then he might otherwise. Unfortunately there is not much we can do to mitigate the catheterization risk other than some volume expansion beforehand and minimizing dye load. Recommendations: Patient and cardiology trying to decide on appropiate course at this point. Does not appear to need diuresis. If he goes for catheterization would try and give him NS at 100 cc/hr about 10 hours before cath and continue for 8 hours after cath. While in hospital I would get daily labs to track his renal function. I would check his PTH and vitamin D levels as I dont' see them in [facility] labs. Would consider stopping Renagel and use CaCO3 2500 mg po tid with meals as his phosphate binder.
[2017-01-24 16:00] VITALS: BP 1330/82
[2017-01-24 21:20] LABS: PTT > 120 SEC (25-37)
[2017-01-25] VITALS: BP 140/90
[2017-01-25 04:46] LABS: ABSOLUTE BASOPHIL COUNT 0 /CUMM (0.0-0.2); ABSOLUTE EOSINOPHIL COUNT 0.1 /CUMM (0.0-0.7); ABSOLUTE GRANULOCYTE CT 5.4 /CUMM (1.4-6.5); ABSOLUTE LYMPH COUNT 1.2 /CUMM (1.2-3.4); ABSOLUTE MONOCYTE COUNT 0.7 /CUMM (0.10-0.60); BASOPHIL % 0.3 % (0.0-2.0); EOSINOPHIL % 1.9 % (0-5); GRANULOCYTE % 72.3 % (42.2-75.2); HEMATOCRIT 28.3 % (42-52); MEAN CORPUSCULAR HGB 26.3 PG (27.0-31.0); MEAN CORPUSCULAR HGB CONC 33.1 G/DL (33.0-37.0); MEAN CORPUSCULAR VOLUME 79.6 FL (80.0-94.0); MEAN PLATELET VOLUME 6.9 FL (7.4-10.4); PLATELET COUNT 269 /CUMM (130-400); RBC DISTRIBUTION WIDTH 13.9 % (11.5-14.5); RED BLOOD CELL CT 3.56 /CUMM (4.70-6.10); WHITE BLOOD CELL COUNT 7.4 /CUMM (4.8-10.8)
[2017-01-25 04:58] LABS: PTT 39 SEC (25-37)
--- NOTE | 2017-01-25 07:06 | ECHOCARDIOGRAM REPORT ---
DEEPIKA BRANDT Age: 67 : 1950 Gender: M Exam Date: 01/24/2017 19:15 Exam Location: [facility] Ht (in): 70 Wt (lb): 235 BSA: 2.33 BP: 147 / 73 Ordering Physician: JESUS GREY MD Referring Physician: Lilibeth Lee MD Technologist: Pebbles Joseph CELINA Room Number: [id number] Indications: CHEST PAIN Rhythm: Sinus Technical Quality: Fair FINDINGS Left Ventricle Normal size left ventricle. Davey hypokinetic. Left ventricular wall thickness increased. Borderline normal left ventricular ejection fraction estimated at 50-55%. Right Ventricle Right ventricle not well visualized, grossly normal. Right Atrium Normal right atrial size. Left Atrium Moderate left atrial dilatation. Mitral Valve Mitral valve thickened. Moderate mitral regurgitation. Aortic Valve Trileaflet aortic valve. Diffuse thickening (sclerosis) of the aortic valve cusps without reduced excursion. No aortic stenosis. No aortic regurgitation. Tricuspid Valve Tricuspid valve not well visualized, grossly normal. Mild tricuspid regurgitation. Pulmonic Valve Pulmonic valve not well visualized, grossly normal. Trace pulmonic regurgitation. Pericardium No pericardial effusion. Great Vessels Normal size aortic root and proximal ascending aorta. CONCLUSIONS 1. Mild aortic sclerosis is present with no valvular stenosis or insufficiency. 2. Mitral leaflet thickening is present with moderate mitral insufficiency and moderate left atrial enlargement. 3. There is no significant pericardial fluid present. 4. The left ventricular chamber size is normal. There is focal hypokinesia of the distal septum and apical segments with an ejection fraction of 50-55%. 5. The right heart structures are grossly normal. Mild tricuspid insufficiency is present with minimal pulmonic insufficiency and no significant pulmonary hypertension. 6. Left ventricular diastolic dysfunction is present. Lilibeth Lee M.D. (Electronically Signed) Final Date: 25 January 2017 07:06 MEASUREMENTS (Male / Female) Normal Values 2D ECHO LV Diastolic Diameter PLAX 5.0 cm 4.2 - 5.9 / 3.9 - 5.3 cm LV Systolic Diameter PLAX 3.8 cm 2.1 - 4.0 cm LV Fractional Shortening PLAX 24.0 % 25 - 46 % LV Ejection Fraction 2D Teich 47.6 % IVS Diastolic Thickness 1.5 cm LVPW Diastolic Thickness 1.5 cm LV Relative Wall Thickness 0.6 RV Internal Dim ED PLAX 2.1 cm 1.9 - 3.8 cm LVOT Diameter 2.0 cm Aortic Root Diameter 3.4 cm LA Systolic Diameter LX 5.4 cm 3.0 - 4.0 / 2.7 - 3.8 cm LA Volume 59.0 cm 18 - 58 / 22 - 52 cm Ascending Aorta Diameter 3.2 cm DOPPLER AV Peak Velocity 129.0 cm/s AV Peak Gradient 6.7 mmHg AV Mean Velocity 97.2 cm/s AV Mean Gradient 4.0 mmHg AV Velocity Time Integral 28.9 cm LVOT Peak Velocity 84.2 cm/s LVOT Peak Gradient 2.8 mmHg LVOT Mean Velocity 64.2 cm/s LVOT Mean Gradient 2.0 mmHg LVOT Velocity Time Integral 18.5 cm LVOT Stroke Volume 58.1 cm AV Area Cont Eq vti 2.0 cm AV Area Cont Eq pk 2.1 cm MV Peak Velocity 139.0 cm/s MV Peak Gradient 7.7 mmHg MV Mean Velocity 81.9 cm/s MV Mean Gradient 3.0 mmHg Mitral E Point Velocity 143.0 cm/s Mitral A Point Velocity 76.5 cm/s Mitral E to A Ratio 1.9 MV PHT Velocity 147.0 cm/s MV Deceleration [place] 690.0 cm/s MV Pressure Half Time 63.9 ms MV Area PHT 3.4 cm MV Deceleration Time 132.0 ms TR Peak Velocity 89.5 cm/s TR Peak Gradient 3.2 mmHg Right Atrial Pressure 10.0 mmHg Pulmonary Artery Systolic Pressu 13.2 mmHg Right Ventricular Systolic Press 13.2 mmHg PV Peak Velocity 119.0 cm/s PV Peak Gradient 5.7 mmHg PV Mean Velocity 69.7 cm/s PV Mean Gradient 2.0 mmHg PV Velocity Time Integral 20.8 cm LV E' Lateral Velocity 6.8 cm/s Mitral E to LV E' Lateral Ratio 21.0 LV E' Septal Velocity 5.1 cm/s Mitral E to LV E' Septal Ratio 28.2
--- NOTE | 2017-01-25 07:28 | PN- Resident CRCU ---
Subjective HPI/CRCU Issues: I saw and examined the patient this am, he is sitting in bed alert and oriented not in distress. Denies any chest heaviness. Denies any SOB, dizziness, headache. Denies any abdominal pain, diarrhea or constipation. Patient reports anxiety attacks with feeling of heaviness on the chest, also reports improvement of his symptoms when he received melatonin. 24 Hour Events: Vital Signs Date Time Temp Pulse Resp B/P Pulse O2 O2 Flow FiO2 Ox Delivery Rate 01/25 1200 96 Nasal 2.0L Cannula 01/25 1006 91 148/76 01/25 1006 91 148/76 01/25 1006 91 148/76 01/25 1005 91 148/76 01/25 0800 97 Nasal 2.0L Cannula 01/25 0800 98.7 96 20 158/68 97 Nasal 2.0L Cannula 01/25 0400 96 Nasal 2.0L Cannula 01/25 0000 96 Nasal 2.0L Cannula 01/25 0000 98.8 104 20 140/90 96 Nasal 2.0L Cannula 01/24 2223 95 156/72 01/24 2000 Nasal 2.0L Cannula 01/24 1600 96 Nasal 2.0L Cannula 01/24 1600 98.4 90 18 1330/82 96 Room Air Intake & Output 01/25 1600 01/25 0800 01/25 0000 Intake Total 420 1151 Output Total 600 Balance -180 1151 Intake, IV 180 191 Intake, Oral 240 960 Output, Urine 600 Patient 107.076 kg Weight Objective Vital Signs & I&O Last 8 Hrs of Vitals and I&O: max Temp 99.5 GA 92-104 RR 16-29 BP 152/91 to 160/74 SO2 94-98% on 2L per NC Exam General Appearance: no apparent distress, alert, awake, comfortable Head: atraumatic, normal appearance Ears, Nose, Throat: normal ENT inspection Neck: supple Respiratory: normal breath sounds, chest non-tender, no respiratory distress Cardiovascular: regular rate/rhythm Gastrointestinal: soft, non-tender Extremities: normal inspection, normal capillary refill Skin: normal color, warm/dry Current Medications: Current Medications Sig/Julissa Start time Last Medication Dose Route Stop Time Status Admin Acetaminophen 650 MG Q6P PRN 01/24 0445 AC PO Acetaminophen 1,000 MG Q6P PRN 01/24 0445 AC IV Amlodipine Besylate 10 MG DAILY 01/24 1000 AC 01/25 PO 1005 Aspirin Buffered 81 MG DAILY 01/24 1000 AC 01/25 PO 1007 Atorvastatin Calcium 80 MG 1700 01/24 1700 AC 01/24 PO 1705 Calcium Carbonate 2,500 MG TID 01/24 1600 AC 01/25 PO 1009 Clonidine 0.1 MG BID 01/24 1000 AC 01/25 PO 1006 Folic Acid 1 MG DAILY 01/24 1000 AC 01/25 PO 1007 Heparin Sodium 6,408 UNIT BOLUS ONE 01/25 0530 DC 01/25 (Porcine) IV 01/25 0531 0553 Heparin Sodium 5,000 UNIT .STK-MED ONE 01/25 0529 DC (Porcine) IV 01/25 0530 Heparin Sodium 25,000 UNIT Q24H 01/24 0330 AC 01/25 (Porcine) IV 0314 Sodium Chloride 500 ML Insulin Aspart 0 TIDAC 01/24 1700 AC 01/25 SC 1150 Insulin Detemir 31 UNITS BID 01/24 2200 AC 01/25 SC 1009 Levothyroxine Sodium 0.274 MG DAILY AC 01/24 0700 AC 01/25 PO 0537 Melatonin 5 MG ONCE ONE 01/25 0330 DC 01/25 PO 01/25 0331 0321 Metoprolol Tartrate 100 MG DAILY 01/24 1000 AC 01/25 PO 1006 Nitroglycerin 2 GM Q6 01/24 0058 AC 01/25 TOP 1238 Sevelamer Carbonate 1,600 MG TID 01/24 1000 DC 01/24 PO 1059 Tamsulosin HCl 0.4 MG DAILY 01/24 1000 AC 01/25 PO 1006 Ticagrelor 90 MG BID 01/24 1000 AC 01/25 PO 1007 Trazodone HCl 150 MG AT BEDTIME 01/24 2200 AC 01/24 PO 2223 Impression/Plan Impression/Problem List Impression: Patient is a 67-year-old male with significant past medical history of chronic back pain , cervical spine surgery(2013), hypertension, hyperlipidemia, hypothyroidism, type 2 diabetes mellitus, diabetic neuropathy, end-stage renal disease, AVF in left arm ( 01/17/2017, not used for dialysis), coronary artery disease, RCA 100%, distal LAD 80% s/p stent presented with history of gradually progressive heaviness of the chest and shortness of breath since for 1 day. Vital signs at time of admission-temperature 99.1, pulse 109, respiratory rate 22, blood pressure 158/72, SPO2 98% and on 2 liters of nasal cannula Pertinent labs -hemoglobin 10 point 3, hematocrit 31.1, MCV 79.7, BUN / creatinine-42/4.3 Chest x-ray -hilar vascular engorgement and mild interstitial edema Echocardiogram on 12/31/2015 LVEF 55-60%, mild to moderate aortic sclerosis and calcification, and TSH. Mild inferoposterior hypokinesia, Mild diastolic dysfunction Dipyridamole stress with nuclear imaging-no EKG evidence of stress-induced VT Pulmonary function test 01/01/16 -restrictive ventilatory defect Problem list and plan: NSTEMI Currently no chest pain, troponin trended down to 0.46 today from peak of 0.84, no changes noted in the last EKG ECHO: Borderline normal left ventricular ejection fraction estimated at 50-55%. Patient reports that the heaviness he feels in the chest happens even when he is not exerting and he feels anxious at the same time that adds to the feeling. He was given melatonin last night that helped with his anxiety and could go to sleep. * continue aspirin, isosorbide mononitrate * We will follow cardiology recommendations * continuing heparin drip for today, may DC heparin per cardiology tomorrow * ordered melatonin at bed time as he reported it helped with his chest heaviness and anxiety * may benefit from treatment for anxiety Anemia seems to be chronic, microcytic most likely due to underlying CKD patient had colonoscopy 2 years ago, is due for colonoscopy in 1-2 months as he says, previous time he had 11 polyps removed as he reports and they were premalignant. does not report any recent changes in bowel habits, is usually constipated and when has severe constipation notices blood in the stool. * iron studies ordered this pm * will consider ferrous sulfate, also epogen per nephrology Hypertension * continue amlodipine, clonidine Hyperlipidemia * continue atorvastatin Hypothyroidism * continue levothyroxine Type 2 diabetes mellitus * Accuchecks TID AC * Insulin novolog SS CKD Patient is having history of diabetes with a recent contrast-induced nephropathy after cardiac catheterization. Patient has a fistula created on the left arm a week ago for possible need for dialysis in the future. BUN /creatinine - 45/4.5 today, slightly higher than yesterday * repeat BEP in am Diet - CC2 DVT prophylaxis-ALPS CODE STATUS-full code Problem List: 1. Type 2 diabetes mellitus Pain Ratin Tomorrow's Labs & Rationales: CBC (anemia), BEP (monitor Cr) Plan DVT/Prophylaxis: pharmacological, IV heparin
[2017-01-25 08:00] VITALS: BP 158/68
--- NOTE | 2017-01-25 08:15 | PN- Nephrology ---
Assessment/Plan Assessment: Stable from renal standpoint. Hemoglobin drifting down and I spoke with him about eventually needing EPO. Suggestion: No changes currently. Patient reluctant to have further cardiac intervention. Subjective Subjective: Complaining of some gas pains in epigastrium after eating. Objective Vital Signs and I&Os Vital Signs Date Time Temp Pulse Resp B/P Pulse O2 O2 Flow FiO2 Ox Delivery Rate 01/25 0400 96 Nasal 2.0L Cannula 01/25 0000 96 Nasal 2.0L Cannula 01/25 0000 98.8 104 20 140/90 96 Nasal 2.0L Cannula 01/24 2223 95 156/72 01/24 2000 Nasal 2.0L Cannula 01/24 1600 96 Nasal 2.0L Cannula 01/24 1600 98.4 90 18 1330/82 96 Room Air 01/24 1327 88 128/68 01/24 1200 97 Nasal 2.0L Cannula 01/24 1100 93 144/90 01/24 1059 93 144/80 01/24 1058 93 144/80 01/24 1058 93 144/80 01/24 1000 98.6 96 18 152/86 95 Room Air 01/24 1000 97 Nasal 2.0L Cannula 01/24 0840 96 20 147/73 97 Nasal 2.0L Cannula Intake & Output 01/25 1600 01/25 0400 01/24 1600 01/24 0400 01/23 1600 01/23 0400 Intake Total 420 1151 470 0 Output Total 600 500 Balance -180 1151 -30 0 Intake, IV 180 191 230 Intake, Oral 240 960 240 0 Output, Urine 600 500 Patient 236 lb 236 lb 235 lb Weight Physical Exam: NAD VS as above Lungs: clear CV: no rub Abd: non-tender Exts: no edema Neuro: A&O Current Medications: Current Medications Sig/Julissa Start time Last Medication Dose Route Stop Time Status Admin Acetaminophen 650 MG Q6P PRN 01/24 0445 AC PO Acetaminophen 1,000 MG Q6P PRN 01/24 0445 AC IV Amlodipine Besylate 10 MG DAILY 01/24 1000 AC 01/24 PO 1058 Aspirin Buffered 81 MG DAILY 01/24 1000 AC 01/24 PO 1059 Atorvastatin Calcium 80 MG 1700 01/24 1700 AC 01/24 PO 1705 Calcium Carbonate 2,500 MG TID 01/24 1600 AC 01/24 PO 2223 Clonidine 0.1 MG BID 01/24 1000 AC 01/24 PO 2223 Folic Acid 1 MG DAILY 01/24 1000 AC 01/24 PO 1059 Heparin Sodium 6,408 UNIT BOLUS ONE 01/25 0530 DC 01/25 (Porcine) IV 01/25 0531 0553 Heparin Sodium 10,000 UNIT .STK-MED ONE 01/24 1220 DC (Porcine) IV 01/24 1221 Heparin Sodium 6,400 UNIT ONCE ONE 01/24 1200 DC 01/24 (Porcine) IV 01/24 1201 1259 Heparin Sodium 25,000 UNIT Q24H 01/24 0330 AC 01/25 (Porcine) IV 0314 Sodium Chloride 500 ML Insulin Aspart 0 TIDAC 01/24 1700 AC 01/24 SC 1704 Insulin Detemir 31 UNITS BID 01/24 2200 01/24 SC 2223 Insulin Human Regular 0 Q6 01/24 0600 DC 01/24 SC 0637 Isosorbide 60 MG DAILY 01/24 1000 DC 01/24 Mononitrate PO 1059 Levothyroxine Sodium 0.274 MG DAILY AC 01/24 0700 AC 01/25 PO 0537 Melatonin 5 MG ONCE ONE 01/25 0330 DC 01/25 PO 01/25 0331 0321 Metoprolol Tartrate 100 MG DAILY 01/24 1000 AC 01/24 PO 1100 Nitroglycerin 2 GM Q6 01/24 0058 AC 01/25 TOP 0537 Sevelamer Carbonate 1,600 MG TID 01/24 1000 DC 01/24 PO 1059 Tamsulosin HCl 0.4 MG DAILY 01/24 1000 AC 01/24 PO 1327 Ticagrelor 90 MG BID 01/24 1000 AC 01/24 PO 2353 Trazodone HCl 150 MG AT BEDTIME 01/24 2200 01/24 PO 2223 Results Pertinent Lab Results: Laboratory Tests 01/25 01/24 01/24 0430 2035 1828 Chemistry Sodium (137 - 145 mmol/L) 137 Potassium (3.5 - 5.1 mmol/L) 4.5 Chloride (98 - 107 mmol/L) 99 Carbon Dioxide (22 - 30 mmol/L) 25 Anion Gap (5 - 16) 13 BUN (9 - 20 mg/dL) 45 H Creatinine (0.7 - 1.2 mg/dL) 4.5 H Estimated GFR (>60 ml/min) 13 L Glucose (65 - 99 mg/dL) 94 Calcium (8.4 - 10.2 mg/dL) 7.0 L Phosphorus (2.5 - 4.5 mg/dL) 5.0 H Magnesium (1.6 - 2.3 mg/dL) 2.5 H Total Bilirubin (0.2 - 1.3 mg/dL) 0.8 AST (17 - 59 U/L) 15 L ALT (21 - 72 U/L) 29 Troponin I (<0.11 ng/ml) Pending 0.57 *H Albumin (3.5 - 5.0 g/dL) 3.3 L Coagulation APTT (25 - 37 SEC) 39 H > 120 *H Hematology CBC w Diff NO MAN DIFF REQ WBC (4.8 - 10.8 /CUMM) 7.4 RBC (4.70 - 6.10 /CUMM) 3.56 L Hgb (14.0 - 18.0 G/DL) 9.4 L Hct (42 - 52 %) 28.3 L MCV (80.0 - 94.0 FL) 79.6 L MCH (27.0 - 31.0 PG) 26.3 L RDW (11.5 - 14.5 %) 13.9 Plt Count (130 - 400 /CUMM) 269 MPV (7.4 - 10.4 FL) 6.9 L Gran % (42.2 - 75.2 %) 72.3 Lymphocytes % (20.5 - 51.1 %) 15.8 L Monocytes % (1.7 - 9.3 %) 9.7 H Eosinophils % (0 - 5 %) 1.9 Basophils % (0.0 - 2.0 %) 0.3 Absolute Granulocytes (1.4 - 6.5 /CUMM) 5.4 Absolute Lymphocytes (1.2 - 3.4 /CUMM) 1.2 Absolute Monocytes (0.10 - 0.60 /CUMM) 0.7 H Absolute Eosinophils (0.0 - 0.7 /CUMM) 0.1 Absolute Basophils (0.0 - 0.2 /CUMM) 0 PUBS MCHC (33.0 - 37.0 G/DL) 33.1 01/24 01/24 01/24 1310 1000 0840 Chemistry Troponin I (<0.11 ng/ml) 0.78 *H Coagulation APTT (25 - 37 SEC) 39 H Urines Urinalysis LIGHT H Urine Color (YEL,AMB,STR) YEL Urine Clarity (CLEAR) CLEAR Urine pH (5.0 - 8.0) 6.0 Ur Specific [place] (1.001 - 1.035) 1.020 Urine Protein (NEG,<30 MG/DL) >=300 H Urine Ketones (NEG) NEG Urine Nitrite (NEG) NEG Urine Bilirubin (NEG) NEG Urine Urobilinogen (0.1 - 1.0 EU/dl) 0.2 Ur Leukocyte Esterase (NEG) NEG Ur Microscopic SEDIMENT EXAMINED Urine RBC (0 - 5 /HPF) RARE Urine WBC (0 - 2 /HPF) RARE Ur Epithelial Cells (NONE,FEW) FEW Granular Casts (NONE /LPF) RARE H Urine Mucus (FEW,NONE) FEW Urine Hemoglobin (NEG) SMALL H Urine Glucose (N MG/DL) NEG 01/24 01/24 0625 0125 Chemistry Sodium (137 - 145 mmol/L) 140 Potassium (3.5 - 5.1 mmol/L) 4.1 Chloride (98 - 107 mmol/L) 102 Carbon Dioxide (22 - 30 mmol/L) 24 Anion Gap (5 - 16) 13 BUN (9 - 20 mg/dL) 42 H Creatinine (0.7 - 1.2 mg/dL) 4.3 H Estimated GFR (>60 ml/min) 14 L BUN/Creatinine Ratio (7 - 25 %) 9.8 Glucose (65 - 99 mg/dL) 98 Calcium (8.4 - 10.2 mg/dL) 6.6 L Phosphorus (2.5 - 4.5 mg/dL) 5.1 H Magnesium (1.6 - 2.3 mg/dL) 2.8 H 2.2 Total Bilirubin (0.2 - 1.3 mg/dL) 0.8 0.7 Direct Bilirubin (< 0.4 mg/dL) 0.4 AST (17 - 59 U/L) 20 19 ALT (21 - 72 U/L) 22 17 L Alkaline Phosphatase (< 127 U/L) 78 91 Troponin I (<0.11 ng/ml) 0.84 *H 0.61 *H [id number] Pept (<125 pg/mL) 43653 H Total Protein (6.3 - 8.2 g/dL) 6.0 L 6.2 L Albumin (3.5 - 5.0 g/dL) 3.2 L 3.5 Globulin (1.9 - 4.2 gm/dL) 2.7 Albumin/Globulin Ratio (1.1 - 2.2 %) 1.3 Triglycerides (<150 mg/dL) 86 Cholesterol (< 200 MG/DL) 93 LDL Cholesterol, Calc (65 - 129 mg/dL) 42 L HDL Cholesterol (40 - 60 mg/dL) 34 L Cholesterol/HDL Ratio (0.00 - 4.88 %) 2.7 25-OH Vitamin D Total (30 - 100 ng/ml) 18.7 L PTH Intact (13.8 - 85 pg/ml) 58.1 Coagulation PT (9.4 - 12.5 SEC) 11.8 INR (0.90 - 1.17) 1.13 APTT (25 - 37 SEC) 30 Hematology CBC w Diff NO MAN DIFF REQ WBC (4.8 - 10.8 /CUMM) 10.2 RBC (4.70 - 6.10 /CUMM) 3.90 L Hgb (14.0 - 18.0 G/DL) 10.3 L Hct (42 - 52 %) 31.1 L MCV (80.0 - 94.0 FL) 79.7 L MCH (27.0 - 31.0 PG) 26.4 L RDW (11.5 - 14.5 %) 13.5 Plt Count (130 - 400 /CUMM) 311 MPV (7.4 - 10.4 FL) 7.1 L Gran % (42.2 - 75.2 %) 80.7 H Lymphocytes % (20.5 - 51.1 %) 10.5 L Monocytes % (1.7 - 9.3 %) 7.7 Eosinophils % (0 - 5 %) 1.1 Basophils % (0.0 - 2.0 %) 0 L Absolute Granulocytes (1.4 - 6.5 /CUMM) 8.2 H Absolute Lymphocytes (1.2 - 3.4 /CUMM) 1.1 L Absolute Monocytes (0.10 - 0.60 /CUMM) 0.8 H Absolute Eosinophils (0.0 - 0.7 /CUMM) 0.1 Absolute Basophils (0.0 - 0.2 /CUMM) 0 PUBS MCHC (33.0 - 37.0 G/DL) 33.2
--- NOTE | 2017-01-25 12:52 | PN- Cardiology ---
Subjective Subjective: The patient reports that he is comfortable. The chest pressure has resolved. No shortness of breath. No diaphoresis. No palpitations. No lightheadedness or dizziness. Objective Vital Signs and I&Os Vital Signs Date Time Temp Pulse Resp B/P Pulse O2 O2 Flow FiO2 Ox Delivery Rate 01/25 1006 91 148/76 01/25 1006 91 148/76 01/25 1006 91 148/76 01/25 1005 91 148/76 01/25 0800 97 Nasal 2.0L Cannula 01/25 0800 98.7 96 20 158/68 97 Nasal 2.0L Cannula 01/25 0400 96 Nasal 2.0L Cannula 01/25 0000 96 Nasal 2.0L Cannula 01/25 0000 98.8 104 20 140/90 96 Nasal 2.0L Cannula 01/24 2223 95 156/72 01/24 2000 Nasal 2.0L Cannula 01/24 1600 96 Nasal 2.0L Cannula 01/24 1600 98.4 90 18 1330/82 96 Room Air 01/24 1327 88 128/68 Intake & Output 01/25 1600 01/25 0800 01/25 0000 01/24 1600 01/24 0800 01/24 0000 Intake Total 420 1151 470 0 Output Total 600 500 Balance -180 1151 -30 0 Intake, IV 180 191 230 Intake, Oral 240 960 240 0 Output, Urine 600 500 Patient 236 lb 236 lb 235 lb Weight Physical Exam: Gen: The patient is in no acute distress HEENT: Normal nose, ears, and oropharynx. Pupils equal bilaterally. Conjunctiva normal. Neck: Supple with no JVD, no masses, and no thyromegaly Lungs: few scattered rales with normal respiratory effort Heart: RRR, S1, S2, 1/6 systolic murmur. Trace peripheral edema, 2+ pulses in the lower extremities bilaterally Abdomen: Soft, nontender, no masses. No hepatomegaly. No splenomegaly Extremities: No clubbing or cyanosis. Normal muscle strength in the upper and lower extremities Skin: Normal skin turgor with no skin ulcers or lesions noted. Current Medications: Current Medications Sig/Julissa Start time Last Medication Dose Route Stop Time Status Admin Acetaminophen 650 MG Q6P PRN 01/24 0445 AC PO Acetaminophen 1,000 MG Q6P PRN 01/24 0445 AC IV Amlodipine Besylate 10 MG DAILY 01/24 1000 AC 01/25 PO 1005 Aspirin Buffered 81 MG DAILY 01/24 1000 AC 01/25 PO 1007 Atorvastatin Calcium 80 MG 1700 01/24 1700 AC 01/24 PO 1705 Calcium Carbonate 2,500 MG TID 01/24 1600 AC 01/25 PO 1009 Clonidine 0.1 MG BID 01/24 1000 AC 01/25 PO 1006 Folic Acid 1 MG DAILY 01/24 1000 AC 01/25 PO 1007 Heparin Sodium 6,408 UNIT BOLUS ONE 01/25 0530 DC 01/25 (Porcine) IV 01/25 0531 0553 Heparin Sodium 25,000 UNIT Q24H 01/24 0330 AC 01/25 (Porcine) IV 0314 Sodium Chloride 500 ML Insulin Aspart 0 TIDAC 01/24 1700 AC 01/25 SC 1150 Insulin Detemir 31 UNITS BID 01/24 2200 AC 01/25 SC 1009 Isosorbide 60 MG DAILY 01/24 1000 DC 01/24 Mononitrate PO 1059 Levothyroxine Sodium 0.274 MG DAILY AC 01/24 0700 AC 01/25 PO 0537 Melatonin 5 MG ONCE ONE 01/25 0330 DC 01/25 PO 01/25 0331 0321 Metoprolol Tartrate 100 MG DAILY 01/24 1000 AC 01/25 PO 1006 Nitroglycerin 2 GM Q6 01/24 0058 AC 01/25 TOP 1238 Sevelamer Carbonate 1,600 MG TID 01/24 1000 DC 01/24 PO 1059 Tamsulosin HCl 0.4 MG DAILY 01/24 1000 AC 01/25 PO 1006 Ticagrelor 90 MG BID 01/24 1000 AC 01/25 PO 1007 Trazodone HCl 150 MG AT BEDTIME 01/24 2200 AC 01/24 PO 2223 Results Last 48 Hrs of Labs/Mics: Laboratory Tests 01/25/17 1240: APTT Pending 01/25/17 0430: Anion Gap 13, Estimated GFR 13 L, Glucose 94, Calcium 7.0 L, Phosphorus 5.0 H , Magnesium 2.5 H, Total Bilirubin 0.8, AST 15 L, ALT 29, Troponin I 0.46 *H, Albumin 3.3 L, APTT 39 H, CBC w Diff NO MAN DIFF REQ, RBC 3.56 L, MCV 79.6 L , MCH 26.3 L, RDW 13.9, MPV 6.9 L, Gran % 72.3, Lymphocytes % 15.8 L, Monocytes % 9.7 H, Eosinophils % 1.9, Basophils % 0.3, Absolute Granulocytes 5.4, Absolute Lymphocytes 1.2, Absolute Monocytes 0.7 H, Absolute Eosinophils 0.1, Absolute Basophils 0, PUBS MCHC 33.1 01/24/17 2035: Troponin I 0.57 *H 01/24/17 1828: APTT > 120 *H 01/24/17 1310: Troponin I 0.78 *H 01/24/17 1000: APTT 39 H 01/24/17 0840: Urinalysis LIGHT H, Urine Color YEL, Urine Clarity CLEAR, Urine pH 6.0, Ur Specific [place] 1.020, Urine Protein >=300 H, Urine Ketones NEG, Urine Nitrite NEG, Urine Bilirubin NEG, Urine Urobilinogen 0.2, Ur Leukocyte Esterase NEG, Ur Microscopic SEDIMENT EXAMINED, Urine RBC RARE, Urine WBC RARE, Ur Epithelial Cells FEW, Granular Casts RARE H, Urine Mucus FEW, Urine Hemoglobin SMALL H, Urine Glucose NEG 01/24/17 0625: Phosphorus 5.1 H, Magnesium 2.8 H, Total Bilirubin 0.8, Direct Bilirubin 0.4, AST 20, ALT 22, Alkaline Phosphatase 78, Troponin I 0.84 *H, Total Protein 6.0 L, Albumin 3.2 L, Triglycerides 86, Cholesterol 93, LDL Cholesterol, Calc 42 L , HDL Cholesterol 34 L, Cholesterol/HDL Ratio 2.7 01/24/17 0125: Anion Gap 13, Estimated GFR 14 L, BUN/Creatinine Ratio 9.8, Glucose 98, Calcium 6.6 L, Magnesium 2.2, Total Bilirubin 0.7, AST 19, ALT 17 L, Alkaline Phosphatase 91, Troponin I 0.61 *H, Isz-[id number]-Ulashriwusf Pept 06036 H, Total Protein 6.2 L, Albumin 3.5, Globulin 2.7, Albumin/Globulin Ratio 1.3, 25-OH Vitamin D Total 18.7 L, PTH Intact 58.1, PT 11.8, INR 1.13, APTT 30, CBC w Diff NO MAN DIFF REQ, RBC 3.90 L, MCV 79.7 L, MCH 26.4 L, RDW 13.5, MPV 7.1 L, Gran % 80.7 H, Lymphocytes % 10.5 L, Monocytes % 7.7, Eosinophils % 1.1, Basophils % 0 L, Absolute Granulocytes 8.2 H, Absolute Lymphocytes 1.1 L, Absolute Monocytes 0.8 H, Absolute Eosinophils 0.1, Absolute Basophils 0, PUBS MCHC 33.2 Recent Imaging Studies: Echocardiogram: 1. Mild aortic sclerosis is present with no valvular stenosis or insufficiency. 2. Mitral leaflet thickening is present with moderate mitral insufficiency and moderate left atrial enlargement. 3. There is no significant pericardial fluid present. 4. The left ventricular chamber size is normal. There is focal hypokinesia of the distal septum and apical segments with an ejection fraction of 50-55%. 5. The right heart structures are grossly normal. Mild tricuspid insufficiency is present with minimal pulmonic insufficiency and no significant pulmonary hypertension. 6. Left ventricular diastolic dysfunction is present. Assessment/Plan Assessment/Plan Assessment: 1. Diabetes mellitus 2. Chronic kidney disease 3. CAD, status post multiple stents 4. Chest discomfort with mild troponin elevation, possible non-ST elevation OR versus demand ischemia. 5. LVEF 50-55 percent with hypokinetic apex on echocardiogram Plan: * I discussed possible cardiac catheterization. This would need to be followed by dialysis using a temporary catheter. The patient expresses a desire to off for now on catheterization to avoid the need for a temporary dialysis catheter. * Continue current cardiac medications. * We will hold off on giving diuretics given the elevated creatinine * The patient may be transferred to the telemetry floor from a cardiac standpoint. Continue telemetry? Yes
[2017-01-25 13:13] LABS: PTT 105 SEC (25-37)
[2017-01-25 16:00] VITALS: BP 128/68
[2017-01-25 18:47] VITALS: BP 132/78
[2017-01-25 22:31] LABS: PTT 35 SEC (25-37)
[2017-01-26 00:04] VITALS: BP 130/70
[2017-01-26 00:10] VITALS: BP 130/70
--- NOTE | 2017-01-26 07:21 | PN- Housestaff ---
Subjective Follow-up For: NSTEMI Tele-Events Since Last Visit: Normal sinus rhythm HR 78-100 No events Subjective: Patient complained of chest discomfort overnight describing it as something heavy "sitting on his chest". Serial EKGs showed no ST-T wave abnormalities. Troponins were checked and found to be trending down. Patient was able to sleep after receiving 0.5 mg of PO Xanax. Patient seen and examined this morning. He continues to have chest discomfort but it is improved compared to last night. He is satting well on 3 L NC. Review of Systems Constitutional: Reports: see HPI. Objective Last 24 Hrs of Vital Signs/I&O Vital Signs Date Time Temp Pulse Resp B/P B/P Pulse O2 O2 Flow FiO2 Mean Ox Delivery Rate 01/26 2147 94 126/70 01/26 1530 98.3 79 18 122/64 93 Nasal 4.0L Cannula 01/26 1151 Nasal 4.0L Cannula 01/26 1150 90 Nasal 3.0L Cannula 01/26 1033 94 144/68 01/26 1033 94 144/68 01/26 1032 94 144/68 01/26 1032 94 144/68 01/26 0800 94 Nasal 3.0L Cannula 01/26 0753 98.7 103 20 144/68 94 Nasal 3.0L Cannula 01/26 0115 93 Nasal 3.0L Cannula 01/26 0010 98.2 92 20 130/70 90 Nasal 2.0L Cannula 01/26 0004 98.2 92 20 130/70 90 Nasal 2.0L Cannula 01/26 0000 96 Nasal 2.0L Cannula Intake & Output 01/26 1600 01/26 0800 01/26 0000 Intake Total 847.8 550 600 Output Total 400 700 Balance 447.8 -150 600 Intake, IV 147.8 Intake, Oral 700 550 600 Number 1 Bowel Movements Output, Urine 400 700 Patient 105.404 kg Weight Weight Standing Scale Measurement Method Physical Exam General Appearance: Alert, Oriented X3, No Acute Distress HEENT: Atraumatic, Mucous Membr. moist/pink Cardiovascular: Regular Rate, Normal S1, Normal S2 Lungs: Clear to Auscultation Abdomen: Soft, No Tenderness, Positive Bowel Sounds, Distended Extremities: No Clubbing, No Cyanosis, No Edema, AVF in Left Arm Current Medications: Current Medications Sig/Julissa Start time Last Medication Dose Route Stop Time Status Admin Acetaminophen 650 MG Q6P PRN 01/24 0445 AC PO Acetaminophen 1,000 MG Q6P PRN 01/24 0445 AC IV Albuterol Sulfate 3 ML ONCE ONE 01/26 0045 DC 01/26 INH 01/26 0046 0057 Alprazolam 0.5 MG ONCE ONE 01/26 1930 DC 01/26 PO 01/26 1931 1926 Alprazolam 0.5 MG ONCE ONE 01/26 0145 DC 01/26 PO 01/26 0146 0142 Amlodipine Besylate 10 MG DAILY 01/24 1000 AC 01/26 PO 1033 Aspirin Buffered 81 MG DAILY 01/24 1000 AC 01/26 PO 1032 Atorvastatin Calcium 80 MG 1700 01/24 1700 AC 01/26 PO 1637 Bisacodyl 5 MG DAILY 01/25 203 AC 01/26 PO 1038 Calcium Carbonate 2,500 MG TID 01/24 1600 AC 01/26 PO 2147 Clonidine 0.1 MG BID 01/24 1000 AC 01/26 PO 2147 Folic Acid 1 MG DAILY 01/24 1000 AC 01/26 PO 1032 Guaifenesin 10 ML Q6P PRN 01/26 0145 AC PO Heparin Sodium 6,426 UNIT BOLUS ONE 01/25 2325 DC 01/25 (Porcine) IV 01/25 2326 2347 Heparin Sodium 10,000 UNIT .STK-MED ONE 01/25 2319 DC (Porcine) IV 01/25 2320 Heparin Sodium 25,000 UNIT Q24H 01/24 0330 DC 01/26 (Porcine) IV 0238 Sodium Chloride 500 ML Insulin Aspart 0 TIDAC 01/24 1700 AC 01/26 SC 1749 Insulin Detemir 31 UNITS BID 01/24 2200 AC 01/26 SC 2148 Levothyroxine Sodium 0.274 MG DAILY AC 01/24 0700 AC 01/26 PO 0604 Melatonin 5 MG AT BEDTIME 01/25 2200 AC 01/26 PO 2148 Metoprolol Tartrate 100 MG DAILY 01/24 1000 AC 01/26 PO 1033 Nitroglycerin 2 GM Q6 01/24 0058 AC 01/26 TOP 1749 Polyethylene Glycol 17 GM DAILY 01/25 2037 AC PO Senna 187 MG AT BEDTIME 01/25 2200 AC 01/26 PO 2148 Tamsulosin HCl 0.4 MG DAILY 01/24 1000 AC 01/26 PO 1032 Ticagrelor 90 MG BID 01/24 1000 AC 01/26 PO 2147 Trazodone HCl 150 MG AT BEDTIME 01/24 2200 AC 01/26 PO 214 Last 24 Hrs of Lab/Angus Results Last 24 Hrs of Labs/Mics: Laboratory Tests 01/26/17 1600: APTT Cancelled 01/26/17 0620: Anion Gap 13, Estimated GFR 14 L, BUN/Creatinine Ratio 9.8, Magnesium 2.4 H, Troponin I 0.23 *H, APTT > 120 *H 01/26/17 0040: Troponin I 0.28 *H Orders Radiology Findings: Central vascular prominence without overt edema. Assessment/Plan Assessment: 67 y/o M with PMHx of T2DM, CAD c/b recent [place] s/p stent placement x3 and CKD stage 4-5 who presents with chest discomfort. #Chest pain: NSTEMI vs demand ischemia in the setting of troponin elevation, maximum troponin 0.84. Troponins have trended down. ECHO with hypokinetic apex and borderline normal LVEF estimated at 50-55%. * Continue telemetry monitoring. * Cardiology following. Appreciate their recs. * Discontinue IV heparin. * Ambulate with physical therapy. * Cardiac catheterization deferred due to risk of worsening kidney function. * Per cardiology, pharmacologic nuclear stress is unlikely to yield any useful information. * Continue topical nitroglycerin 2 mg PO Q6H. #Acute hypoxemic respiratory failure: History of MILES but not on CPAP. Currently requiring 3-4 L of NC. Was not on supplemental oxygen prior to admission. * Check ambulatory oxygen saturation. If normal, check nocturnal oxygen saturation. #CKD: No evidence of volume overload on exam. Creatinine 4.4 today. * Nephrology following. Appreciate their recs. * Continue to monitor lytes and kidney function. #Insulin-dependent T2DM: On Lantus 62 units SQ QHS and liraglutide 1.8 mg PO daily as outpatient. * Hold oral hypoglycemic agents while inpatient. * Continue Levemir 31 units SQ BID. * Accu-checks and low-dose Novolog SSI TIDAC. Diet: Consistent Carbohydrate 2 DVT PPx: ALPs CODE: FULL Problem List: 1. CKD (chronic kidney disease) 2. Elevated troponin 3. Chest pain 4. Acute hypoxemic respiratory failure 5. MILES (obstructive sleep apnea) 6. Insulin dependent type 2 diabetes mellitus Pain Ratin Pain Location: N/A Pain Goal: Remain pain free Pain Plan: Tylenol 1 g IV Q6H for moderate pain (scale 4-6) Tylenol 650 mg PO Q6H for mild pain (scale 1-3) Tomorrow's Labs & Rationales: BMP to monitor lytes and renal function in the setting of CKD
[2017-01-26 07:53] VITALS: BP 144/68
[2017-01-26 08:44] LABS: PTT > 120 SEC (25-37)
--- NOTE | 2017-01-26 09:17 | PN- Nephrology ---
Assessment/Plan Assessment: Stable from renal standpoint. Does not appear volume overloaded on exam. Suggestion: No changes currently. Subjective Subjective: Still with some chest discomfort overnight but doesn't want cath. Discussed with him worse case scenario is that he got cath and required dialysis through cathteter for 2-3 months before AVF ready. Although not ideal, this is certainly tolerable if he cannot otherwise function without chest pressure. Objective Vital Signs and I&Os Vital Signs Date Time Temp Pulse Resp B/P B/P Pulse O2 O2 Flow FiO2 Mean Ox Delivery Rate 01/26 0753 98.7 103 20 144/68 94 Nasal 3.0L Cannula 01/26 0115 93 Nasal 3.0L Cannula 01/26 0010 98.2 92 20 130/70 90 Nasal 2.0L Cannula 01/26 0004 98.2 92 20 130/70 90 Nasal 2.0L Cannula 01/26 0000 96 Nasal 2.0L Cannula 01/25 2206 83 132/78 01/25 1847 98.0 83 20 132/78 94 Nasal 3.0L Cannula 01/25 1600 96 Nasal 2.0L Cannula 01/25 1600 98.8 78 22 128/68 96 Nasal 2.0L Cannula 01/25 1200 96 Nasal 2.0L Cannula 01/25 1006 91 148/76 01/25 1006 91 148/76 01/25 1006 91 148/76 01/25 1005 91 148/76 Intake & Output 01/26 1600 01/26 0400 01/25 1600 01/25 0400 01/24 1600 01/24 0400 Intake Total 087 167 1372 1151 470 0 Output Total 700 1400 500 Balance -150 600 -90 1151 -30 0 Intake, IV 370 191 230 Intake, Oral 550 600 940 960 240 0 Output, Urine 700 1400 500 Patient 232 lb 236 lb 236 lb 235 lb Weight Weight Standing Scale Measurement Method Physical Exam: NAD VS as above Lungs: clear CV: no rub Abd: non-tender Exts: no edema Neuro: A&O Current Medications: Current Medications Sig/Julissa Start time Last Medication Dose Route Stop Time Status Admin Acetaminophen 650 MG Q6P PRN 01/24 445 AC PO Acetaminophen 1,000 MG Q6P PRN 01/24 445 AC IV Albuterol Sulfate 3 ML ONCE ONE 01/26 45 DC 01/26 INH 04/19 0046 0057 Alprazolam 0.5 MG ONCE ONE 01/26 0145 DC 01/26 PO 01/26 0146 0142 Amlodipine Besylate 10 MG DAILY 01/24 1000 AC 01/25 PO 1005 Aspirin Buffered 81 MG DAILY 01/24 1000 AC 01/25 PO 1007 Atorvastatin Calcium 80 MG 1700 01/24 1700 AC 01/25 PO 1622 Bisacodyl 5 MG DAILY 01/25 2037 AC PO Calcium Carbonate 2,500 MG TID 01/24 1600 AC 01/25 PO 2206 Clonidine 0.1 MG BID 01/24 1000 AC 01/25 PO 2206 Folic Acid 1 MG DAILY 01/24 1000 AC 01/25 PO 1007 Guaifenesin 10 ML Q6P PRN 01/26 0145 AC PO Heparin Sodium 6,426 UNIT BOLUS ONE 01/25 2325 DC 01/25 (Porcine) IV 01/25 2326 2347 Heparin Sodium 10,000 UNIT .STK-MED ONE 01/25 2319 DC (Porcine) IV 01/25 2320 Heparin Sodium 25,000 UNIT Q24H 01/24 0330 AC 01/26 (Porcine) IV 0238 Sodium Chloride 500 ML Insulin Aspart 0 TIDAC 01/24 1700 AC 01/25 SC 1150 Insulin Detemir 31 UNITS BID 01/24 2200 AC 01/25 SC 2207 Levothyroxine Sodium 0.274 MG DAILY AC 01/24 0700 AC 01/26 PO 0604 Melatonin 5 MG AT BEDTIME 01/25 2200 AC 01/25 PO 2206 Metoprolol Tartrate 100 MG DAILY 01/24 1000 AC 01/25 PO 1006 Nitroglycerin 2 GM Q6 01/24 0058 AC 01/26 TOP 0604 Polyethylene Glycol 17 GM DAILY 01/25 203 AC PO Senna 187 MG AT BEDTIME 01/25 2200 AC 01/25 PO 2227 Tamsulosin HCl 0.4 MG DAILY 01/24 1000 AC 01/25 PO 1006 Ticagrelor 90 MG BID 01/24 1000 AC 01/25 PO 2207 Trazodone HCl 150 MG AT BEDTIME 01/24 2200 AC 01/25 PO 220 Results Pertinent Lab Results: Laboratory Tests 01/26 01/26 01/25 01/25 0620 0040 2027 1240 Chemistry Sodium (137 - 145 mmol/L) 137 Potassium (3.5 - 5.1 mmol/L) 4.2 Chloride (98 - 107 mmol/L) 100 Carbon Dioxide (22 - 30 mmol/L) 25 Anion Gap (5 - 16) 13 BUN (9 - 20 mg/dL) 43 H Creatinine (0.7 - 1.2 mg/dL) 4.4 H Estimated GFR (>60 ml/min) 14 L BUN/Creatinine Ratio (7 - 25 %) 9.8 Magnesium (1.6 - 2.3 mg/dL) 2.4 H Troponin I (<0.11 ng/ml) 0.23 *H 0.28 *H Coagulation APTT (25 - 37 SEC) > 120 *H 35 105 *H 01/25 01/24 01/24 0430 2035 1828 Chemistry Sodium (137 - 145 mmol/L) 137 Potassium (3.5 - 5.1 mmol/L) 4.5 Chloride (98 - 107 mmol/L) 99 Carbon Dioxide (22 - 30 mmol/L) 25 Anion Gap (5 - 16) 13 BUN (9 - 20 mg/dL) 45 H Creatinine (0.7 - 1.2 mg/dL) 4.5 H Estimated GFR (>60 ml/min) 13 L Glucose (65 - 99 mg/dL) 94 Calcium (8.4 - 10.2 mg/dL) 7.0 L Phosphorus (2.5 - 4.5 mg/dL) 5.0 H Magnesium (1.6 - 2.3 mg/dL) 2.5 H Iron (49 - 181 ug/dL) 38 L TIBC (261 - 462 ug/dL) 229 L Ferritin (17.9 - 464 ng/mL) 158.0 Total Bilirubin (0.2 - 1.3 mg/dL) 0.8 AST (17 - 59 U/L) 15 L ALT (21 - 72 U/L) 29 Troponin I (<0.11 ng/ml) 0.46 *H 0.57 *H Albumin (3.5 - 5.0 g/dL) 3.3 L Coagulation APTT (25 - 37 SEC) 39 H > 120 *H Hematology CBC w Diff NO MAN DIFF REQ WBC (4.8 - 10.8 /CUMM) 7.4 RBC (4.70 - 6.10 /CUMM) 3.56 L Hgb (14.0 - 18.0 G/DL) 9.4 L Hct (42 - 52 %) 28.3 L MCV (80.0 - 94.0 FL) 79.6 L MCH (27.0 - 31.0 PG) 26.3 L RDW (11.5 - 14.5 %) 13.9 Plt Count (130 - 400 /CUMM) 269 MPV (7.4 - 10.4 FL) 6.9 L Gran % (42.2 - 75.2 %) 72.3 Lymphocytes % (20.5 - 51.1 %) 15.8 L Monocytes % (1.7 - 9.3 %) 9.7 H Eosinophils % (0 - 5 %) 1.9 Basophils % (0.0 - 2.0 %) 0.3 Absolute Granulocytes (1.4 - 6.5 /CUMM) 5.4 Absolute Lymphocytes (1.2 - 3.4 /CUMM) 1.2 Absolute Monocytes (0.10 - 0.60 /CUMM) 0.7 H Absolute Eosinophils (0.0 - 0.7 /CUMM) 0.1 Absolute Basophils (0.0 - 0.2 /CUMM) 0 PUBS MCHC (33.0 - 37.0 G/DL) 33.1 01/24 01/24 01/24 1310 1000 0840 Chemistry Troponin I (<0.11 ng/ml) 0.78 *H Coagulation APTT (25 - 37 SEC) 39 H Urines Urinalysis LIGHT H Urine Color (YEL,AMB,STR) YEL Urine Clarity (CLEAR) CLEAR Urine pH (5.0 - 8.0) 6.0 Ur Specific [place] (1.001 - 1.035) 1.020 Urine Protein (NEG,<30 MG/DL) >=300 H Urine Ketones (NEG) NEG Urine Nitrite (NEG) NEG Urine Bilirubin (NEG) NEG Urine Urobilinogen (0.1 - 1.0 EU/dl) 0.2 Ur Leukocyte Esterase (NEG) NEG Ur Microscopic SEDIMENT EXAMINED Urine RBC (0 - 5 /HPF) RARE Urine WBC (0 - 2 /HPF) RARE Ur Epithelial Cells (NONE,FEW) FEW Granular Casts (NONE /LPF) RARE H Urine Mucus (FEW,NONE) FEW Urine Hemoglobin (NEG) SMALL H Urine Glucose (N MG/DL) NEG 01/24 01/24 0625 0125 Chemistry Sodium (137 - 145 mmol/L) 140 Potassium (3.5 - 5.1 mmol/L) 4.1 Chloride (98 - 107 mmol/L) 102 Carbon Dioxide (22 - 30 mmol/L) 24 Anion Gap (5 - 16) 13 BUN (9 - 20 mg/dL) 42 H Creatinine (0.7 - 1.2 mg/dL) 4.3 H Estimated GFR (>60 ml/min) 14 L BUN/Creatinine Ratio (7 - 25 %) 9.8 Glucose (65 - 99 mg/dL) 98 Calcium (8.4 - 10.2 mg/dL) 6.6 L Phosphorus (2.5 - 4.5 mg/dL) 5.1 H Magnesium (1.6 - 2.3 mg/dL) 2.8 H 2.2 Total Bilirubin (0.2 - 1.3 mg/dL) 0.8 0.7 Direct Bilirubin (< 0.4 mg/dL) 0.4 AST (17 - 59 U/L) 20 19 ALT (21 - 72 U/L) 22 17 L Alkaline Phosphatase (< 127 U/L) 78 91 Troponin I (<0.11 ng/ml) 0.84 *H 0.61 *H Mnb-[id number]-[id number] Pept (<125 pg/mL) 42807 H Total Protein (6.3 - 8.2 g/dL) 6.0 L 6.2 L Albumin (3.5 - 5.0 g/dL) 3.2 L 3.5 Globulin (1.9 - 4.2 gm/dL) 2.7 Albumin/Globulin Ratio (1.1 - 2.2 %) 1.3 Triglycerides (<150 mg/dL) 86 Cholesterol (< 200 MG/DL) 93 LDL Cholesterol, Calc (65 - 129 mg/dL) 42 L HDL Cholesterol (40 - 60 mg/dL) 34 L Cholesterol/HDL Ratio (0.00 - 4.88 %) 2.7 25-OH Vitamin D Total (30 - 100 ng/ml) 18.7 L PTH Intact (13.8 - 85 pg/ml) 58.1 Coagulation PT (9.4 - 12.5 SEC) 11.8 INR (0.90 - 1.17) 1.13 APTT (25 - 37 SEC) 30 Hematology CBC w Diff NO MAN DIFF REQ WBC (4.8 - 10.8 /CUMM) 10.2 RBC (4.70 - 6.10 /CUMM) 3.90 L Hgb (14.0 - 18.0 G/DL) 10.3 L Hct (42 - 52 %) 31.1 L MCV (80.0 - 94.0 FL) 79.7 L MCH (27.0 - 31.0 PG) 26.4 L RDW (11.5 - 14.5 %) 13.5 Plt Count (130 - 400 /CUMM) 311 MPV (7.4 - 10.4 FL) 7.1 L Gran % (42.2 - 75.2 %) 80.7 H Lymphocytes % (20.5 - 51.1 %) 10.5 L Monocytes % (1.7 - 9.3 %) 7.7 Eosinophils % (0 - 5 %) 1.1 Basophils % (0.0 - 2.0 %) 0 L Absolute Granulocytes (1.4 - 6.5 /CUMM) 8.2 H Absolute Lymphocytes (1.2 - 3.4 /CUMM) 1.1 L Absolute Monocytes (0.10 - 0.60 /CUMM) 0.8 H Absolute Eosinophils (0.0 - 0.7 /CUMM) 0.1 Absolute Basophils (0.0 - 0.2 /CUMM) 0 PUBS MCHC (33.0 - 37.0 G/DL) 33.2
--- NOTE | 2017-01-26 11:17 | RADIOLOGY REPORT ---
EXAMINATION: XR PORTABLE CHEST CLINICAL INFORMATION: Shortness of breath. COMPARISON: 01/24/2017 TECHNIQUE: Portable AP view of the chest was obtained. FINDINGS: Cervical fusion hardware is noted. Cardiac leads overlie the chest. Central vascular prominence without overt edema. No pleural effusion or pneumothorax. The cardiomediastinal silhouette is within normal limits. IMPRESSION: Central vascular prominence without overt edema.
[2017-01-26 15:30] VITALS: BP 122/64
--- NOTE | 2017-01-26 16:01 | PN- Att Addend ---
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, reviewed EMR data (avail), discussed w/nursing, discussed w/ case mgmt Attending Assessment/Plan: Laboratory Tests 01/26/17 0620: Anion Gap 13, Estimated GFR 14 L, BUN/Creatinine Ratio 9.8, Magnesium 2.4 H, Troponin I 0.23 *H, APTT > 120 *H 01/26/17 0040: Troponin I 0.28 *H 01/25/172027: APTT 35 Vital Signs Date Time Temp Pulse Resp B/P B/P Pulse O2 O2 Flow FiO2 Mean Ox Delivery Rate 01/26 1151 Nasal 4.0L Cannula 01/26 1150 90 Nasal 3.0L Cannula 01/26 1033 94 144/68 01/26 1033 94 144/68 01/26 1032 94 144/68 01/26 1032 94 144/68 01/26 0800 94 Nasal 3.0L Cannula 01/26 0753 98.7 103 20 144/68 94 Nasal 3.0L Cannula 01/26 0115 93 Nasal 3.0L Cannula 01/26 0010 98.2 92 20 130/70 90 Nasal 2.0L Cannula 01/26 0004 98.2 92 20 130/70 90 Nasal 2.0L Cannula 01/26 0000 96 Nasal 2.0L Cannula 01/25 2206 83 132/78 04 1847 98.0 83 20 132/78 94 Nasal 3.0L Cannula 01/25 1600 96 Nasal 2.0L Cannula 01/25 1600 98.8 78 22 128/68 96 Nasal 2.0L Cannula pt seen and examined at bedside. Pt with recent [place] with CAD s/p stenting at [place]. Pt admitted with NSTEMI. Pt still requiring oxygen and on iv heparin drip. WIll d/w cardiology about stopping heparin drip. Pt has sleep apnea but has not used CPAP. will get oxygen evaluation and if needed will do nocturnal oxygen study. d/w pt the care plan in detail CKD- creatinine stable. will cont to monitor closely.
--- NOTE | 2017-01-26 18:21 | PN- Cardiology ---
Subjective Subjective: Feeling well with no further symptoms. NO chest pain of dyspnea. Objective Vital Signs and I&Os Vital Signs Date Time Temp Pulse Resp B/P B/P Pulse O2 O2 Flow FiO2 Mean Ox Delivery Rate 01/26 1530 98.3 79 18 122/64 93 Nasal 4.0L Cannula 01/26 1151 Nasal 4.0L Cannula 01/26 1150 90 Nasal 3.0L Cannula 01/26 1033 94 144/68 01/26 1033 94 144/68 01/26 1032 94 144/68 01/26 1032 94 144/68 01/26 0800 94 Nasal 3.0L Cannula 01/26 0753 98.7 103 20 144/68 94 Nasal 3.0L Cannula 01/26 0115 93 Nasal 3.0L Cannula 01/26 0010 98.2 92 20 130/70 90 Nasal 2.0L Cannula 01/26 0004 98.2 92 20 130/70 90 Nasal 2.0L Cannula 01/26 0000 96 Nasal 2.0L Cannula 01/25 2206 83 132/78 01/25 1847 98.0 83 20 132/78 94 Nasal 3.0L Cannula Intake & Output 01/26 1600 01/26 0800 01/26 0000 01/25 1600 01/25 0800 01/25 0000 Intake Total 847.8 550 600 454 593 8126 Output Total 400 700 800 600 Balance 447.8 -150 600 90 -180 1151 Intake, IV 147.8 190 180 191 Intake, Oral 700 550 600 700 240 960 Number 1 Bowel Movements Output, Urine 400 700 800 600 Patient 232 lb 236 lb Weight Weight Standing Scale Measurement Method Physical Exam: General Appearance Alert, Oriented X3, Cooperative, No Acute Distress Skin No Rashes, No Breakdown HEENT Atraumatic, PERRLA, EOMI Neck Supple, No JVD Cardiovascular Normal S1, Normal S2, 1/6 systolic murmur Lungs Clear to Auscultation, Normal Air Movement Abdomen Soft, No Tenderness, distended Neurological Normal Speech Extremities No Clubbing, No Cyanosis, mild pedal edema; AVF left arm Vascular Normal Pulses, Pulses Symmetrical Current Medications: Current Medications Sig/Julissa Start time Last Medication Dose Route Stop Time Status Admin Acetaminophen 650 MG Q6P PRN 01/24 445 AC PO Acetaminophen 1,000 MG Q6P PRN 01/245 AC IV Albuterol Sulfate 3 ML ONCE ONE 01/26 0045 DC 01/26 INH 01/26 0046 0057 Alprazolam 0.5 MG ONCE ONE 01/26 0145 DC 01/26 PO 01/26 0146 0142 Amlodipine Besylate 10 MG DAILY 01/24 1000 AC 01/26 PO 1033 Aspirin Buffered 81 MG DAILY 01/24 1000 AC 01/26 PO 1032 Atorvastatin Calcium 80 MG 1700 01/24 1700 AC 01/26 PO 1637 Bisacodyl 5 MG DAILY 01/25 2037 AC 01/26 PO 1038 Calcium Carbonate 2,500 MG TID 01/24 1600 AC 01/26 PO 1637 Clonidine 0.1 MG BID 01/24 1000 AC 01/26 PO 1032 Folic Acid 1 MG DAILY 01/24 1000 AC 01/26 PO 1032 Guaifenesin 10 ML Q6P PRN 01/26 0145 AC PO Heparin Sodium 6,426 UNIT BOLUS ONE 01/25 2325 DC 01/25 (Porcine) IV 01/25 2326 2347 Heparin Sodium 10,000 UNIT .STK-MED ONE 01/25 2319 DC (Porcine) IV 01/25 2320 Heparin Sodium 25,000 UNIT Q24H 01/24 0330 NM 01/26 (Porcine) IV 0238 Sodium Chloride 500 ML Insulin Aspart 0 TIDAC 01/24 1700 AC 01/26 SC 1749 Insulin Detemir 31 UNITS BID 01/24 2200 AC 01/26 SC 1035 Levothyroxine Sodium 0.274 MG DAILY AC 01/24 0700 AC 01/26 PO 0604 Melatonin 5 MG AT BEDTIME 01/25 2200 AC 01/25 PO 2206 Metoprolol Tartrate 100 MG DAILY 01/24 1000 AC 01/26 PO 1033 Nitroglycerin 2 GM Q6 01/24 0058 AC 01/26 TOP 1749 Polyethylene Glycol 17 GM DAILY 01/25 2037 AC PO Senna 187 MG AT BEDTIME 01/25 2200 AC 01/25 PO 2227 Tamsulosin HCl 0.4 MG DAILY 01/24 1000 AC 01/26 PO 1032 Ticagrelor 90 MG BID 01/24 1000 AC 01/26 PO 1030 Trazodone HCl 150 MG AT BEDTIME 01/24 2200 AC 01/25 PO 2206 Results Last 48 Hrs of Labs/Mics: Laboratory Tests 01/26/17 1600: APTT Cancelled 01/26/17 0620: Anion Gap 13, Estimated GFR 14 L, BUN/Creatinine Ratio 9.8, Magnesium 2.4 H, Troponin I 0.23 *H, APTT > 120 *H 01/26/17 0040: Troponin I 0.28 *H 01/25/172027: APTT 35 01/25/17 1240: APTT 105 *H 01/25/17 0430: Anion Gap 13, Estimated GFR 13 L, Glucose 94, Calcium 7.0 L, Phosphorus 5.0 H , Magnesium 2.5 H, Iron 38 L, TIBC 229 L, Ferritin 158.0, Total Bilirubin 0.8 , AST 15 L, ALT 29, Troponin I 0.46 *H, Albumin 3.3 L, APTT 39 H, CBC w Diff NO MAN DIFF REQ, RBC 3.56 L, MCV 79.6 L, MCH 26.3 L, RDW 13.9, MPV 6.9 L, Gran % 72.3, Lymphocytes % 15.8 L, Monocytes % 9.7 H, Eosinophils % 1.9, Basophils % 0.3, Absolute Granulocytes 5.4, Absolute Lymphocytes 1.2, Absolute Monocytes 0.7 H, Absolute Eosinophils 0.1, Absolute Basophils 0, PUBS MCHC 33.1 01/24/172034: Troponin I 0.57 *H 01/24/171827: APTT > 120 *H Assessment/Plan Assessment/Plan Assessment: 1. Diabetes mellitus 2. Chronic kidney disease 3. CAD, status post multiple stents 4. Chest discomfort with mild troponin elevation, possible non-ST elevation DE versus demand ischemia. 5. LVEF 50-55 percent with hypokinetic apex on echocardiogram Recommendations: - I had an extended discussion with the patient today about his current status and options for further evaluation vs watchful waiting. - After an extended discussion, we agreed that further evaluation, for now, will be placed on hold due to the risk of worsening renal function with invasive testing and the likelihood that non invasive testing with pharmacologic nuclear stress testing would be unlikley to yield any usefule information. - Discontinue heparin today. - COntinue other meds - OOB and ambulate Continue telemetry? Yes
[2017-01-26 23:41] VITALS: BP 130/62
--- NOTE | 2017-01-27 07:04 | PN- Housestaff ---
Subjective Follow-up For: NSTEMI Acute hypoxemic respiratory failure Anxiety Tele-Events Since Last Visit: Sinus rhythm HR 82-94 No events Subjective: No acute events overnight. Patient seen and examined this morning. He had an episode of anxiety overnight and felt like he could not breathe. It resolved after receiving 0.5 mg PO Xanax. This morning he denies chest pain or shortness of breath. His oxygen saturation was 91% after ambulation. His oxygen requirement has improved and he is on 2 L NC. Review of Systems Constitutional: Reports: see HPI. Objective Last 24 Hrs of Vital Signs/I&O Vital Signs Date Time Temp Pulse Resp B/P B/P Pulse O2 O2 Flow FiO2 Mean Ox Delivery Rate 01/27 0000 96 Nasal 4.0L Cannula 01/26 2341 99.4 88 18 130/62 96 Nasal Cannula 01/26 2147 94 126/70 01/26 1530 98.3 79 18 122/64 93 Nasal 4.0L Cannula 01/26 1151 Nasal 4.0L Cannula 01/26 1150 90 Nasal 3.0L Cannula 01/26 1033 94 144/68 01/26 1033 94 144/68 01/26 1032 94 144/68 01/26 1032 94 144/68 01/26 0800 94 Nasal 3.0L Cannula Intake & Output 01/27 0800 01/27 0000 01/26 1600 Intake Total 620 300 847.8 Output Total 450 400 Balance 170 300 447.8 Intake, IV 147.8 Intake, Oral 620 300 700 Number 1 Bowel Movements Output, Urine 450 400 Patient 107.048 kg Weight Weight Standing Scale Measurement Method Physical Exam General Appearance: Alert, Oriented X3, No Acute Distress HEENT: Atraumatic, Mucous Membr. moist/pink Neck: Supple Cardiovascular: Regular Rate, Normal S1, Normal S2, No Murmurs, Gallops, Rubs Lungs: Clear to Auscultation Abdomen: Soft, No Tenderness, Positive Bowel Sounds Extremities: No Clubbing, No Cyanosis, AVF in Left Arm Current Medications: Current Medications Sig/Julissa Start time Last Medication Dose Route Stop Time Status Admin Acetaminophen 650 MG Q6P PRN 01/24 445 AC PO Acetaminophen 1,000 MG Q6P PRN 01/24 445 AC IV Alprazolam 0.5 MG ONCE ONE 01/26 1930 DC 01/26 PO 04/19 1931 1926 Amlodipine Besylate 10 MG DAILY 01/24 1000 AC 01/26 PO 1033 Aspirin Buffered 81 MG DAILY 01/24 1000 AC 01/26 PO 1032 Atorvastatin Calcium 80 MG 1700 01/24 1700 AC 01/26 PO 1637 Bisacodyl 5 MG DAILY 01/25 203 AC 01/26 PO 1038 Calcium Carbonate 2,500 MG TID 01/24 1600 AC 01/26 PO 2147 Clonidine 0.1 MG BID 01/24 1000 AC 01/26 PO 2147 Folic Acid 1 MG DAILY 01/24 1000 AC 01/26 PO 1032 Guaifenesin 10 ML Q6P PRN 01/26 0145 AC PO Heparin Sodium 25,000 UNIT Q24H 01/24 0330 DC 01/26 (Porcine) IV 0238 Sodium Chloride 500 ML Insulin Aspart 0 TIDAC 01/24 1700 AC 01/26 SC 1749 Insulin Detemir 31 UNITS BID 01/24 220 AC 01/26 SC 2148 Levothyroxine Sodium 0.274 MG DAILY AC 01/24 0700 AC 01/26 PO 0604 Melatonin 5 MG AT BEDTIME 01/25 2200 AC 01/26 PO 2148 Metoprolol Tartrate 100 MG DAILY 01/24 1000 AC 01/26 PO 1033 Nitroglycerin 2 GM Q6 01/24 0058 AC 01/27 TOP 0602 Polyethylene Glycol 17 GM DAILY 01/25 2037 AC PO Senna 187 MG AT BEDTIME 01/25 220 AC 01/26 PO 2148 Tamsulosin HCl 0.4 MG DAILY 01/24 1000 AC 01/26 PO 1032 Ticagrelor 90 MG BID 01/24 1000 AC 01/26 PO 2147 Trazodone HCl 150 MG AT BEDTIME 01/24 2200 AC 01/26 PO 2147 Last 24 Hrs of Lab/Angus Results Last 24 Hrs of Labs/Mics: Laboratory Tests 01/27 0612 Chemistry Sodium (137 - 145 mmol/L) 137 Potassium (3.5 - 5.1 mmol/L) 4.4 Chloride (98 - 107 mmol/L) 100 Carbon Dioxide (22 - 30 mmol/L) 24 Anion Gap (5 - 16) 12 BUN (9 - 20 mg/dL) 47 H Creatinine (0.7 - 1.2 mg/dL) 4.4 H Estimated GFR (>60 ml/min) 14 L BUN/Creatinine Ratio (7 - 25 %) 10.7 Assessment/Plan Assessment: 67 y/o M with PMHx of T2DM, CAD c/b recent SC s/p stent placement x3 and CKD stage 4-5 who presents with chest discomfort. #Chest pain: NSTEMI vs demand ischemia in the setting of troponin elevation, maximum troponin 0.84. Troponins have trended down. ECHO with hypokinetic apex and borderline normal LVEF estimated at 50-55%. Stable off IV heparin. * Continue telemetry monitoring. * Cardiology following. Appreciate their recs. * Ambulate with physical therapy. * Further evaluation deferred since cardiac catheterization would have the risk of worsening kidney function and pharmacologic nuclear stress is unlikely to yield any useful information. * Continue topical nitroglycerin 2 mg Q6H. #Acute hypoxemic respiratory failure: Oxygenation requirement improved today, on 2 L NC. Ambulatory oxygen saturation was 91%. Pulmonology consulted. Per their eval, SOB is currently likely secondary to anxiety although it may have been initially secondary [place] [address]. Underlying COPD is stable with a restrictive pattern on pulmonary function tests with a possible mild obstruction. Patient is enrolled in low-dose CT scan screening given his extensive smoking history and next CT is scheduled in July 2017. * Follow up with coal feeder operator Dr. Moyer on discharge. * Outpatient sleep study planned for MILES per pulmonology. * Start Symbicort 160 over 4.5 g 2 puffs BID with rinsing of the mouth. * Add rescue inhaler to discharge medications. #Anxiety: Has been having nocturnal anxiety attacks. Suspected etiology for his shortness of breath per pulmonology. * Start Xanax 0.5 mg PO BID PRN for anxiety. #CKD: No evidence of volume overload on exam. Creatinine stable at 4.4 today. * Nephrology following. Appreciate their recs. * Continue to monitor lytes and kidney function. #Insulin-dependent T2DM: On Lantus 62 units SQ QHS and liraglutide 1.8 mg PO daily as outpatient. * Hold oral hypoglycemic agents while inpatient. * Continue Levemir 31 units SQ BID. * Accu-checks and low-dose Novolog SSI TIDAC. Diet: Consistent Carbohydrate 2 DVT PPx: ALPs CODE: FULL Problem List: 1. Insulin dependent type 2 diabetes mellitus 2. MILES (obstructive sleep apnea) 3. Acute hypoxemic respiratory failure 4. Chest pain 5. CKD (chronic kidney disease) 6. Elevated troponin 7. COPD (chronic obstructive pulmonary disease) 8. Anxiety 9. Presence of stent in coronary artery in patient with coronary artery disease Pain Ratin Pain Location: N/A Pain Goal: Remain pain free Pain Plan: Tylenol 1 g IV Q6H PRN for moderate pain (scale 4-6) Tylenol 650 mg PO Q6H PRN for mild pain (scale 1-3) Tomorrow's Labs & Rationales: BMP to monitor lytes and kidney function in the setting of CKD Discharge Plan Discharge Disposition: home Anticipated Discharge (Day): tomorrow
[2017-01-27 08:17] VITALS: BP 152/72
--- NOTE | 2017-01-27 09:22 | PN- Nephrology ---
Assessment/Plan Assessment: Stable creatinne. Not volume overloaded. Suggestion: No changes. Subjective Subjective: Still with a lot of anxiety at night. Unclear if having myocardial ischemia. Objective Vital Signs and I&Os Vital Signs Date Time Temp Pulse Resp B/P B/P Pulse O2 O2 Flow FiO2 Mean Ox Delivery Rate 01/27 0817 99.9 104 20 152/72 95 Nasal 4.0L Cannula 01/27 0800 Nasal 4.0L Cannula 01/27 0000 96 Nasal 4.0L Cannula 01/26 2341 99.4 88 18 130/62 96 Nasal Cannula 01/26 2147 94 126/70 01/26 1530 98.3 79 18 122/64 93 Nasal 4.0L Cannula 01/26 1151 Nasal 4.0L Cannula 01/26 1150 90 Nasal 3.0L Cannula 01/26 1033 94 144/68 01/26 1033 94 144/68 01/26 1032 94 144/68 01/26 1032 94 144/68 Intake & Output 01/27 1600 01/27 0400 01/26 1600 01/26 0400 01/25 1600 01/25 0400 Intake Total 448 413 0745.8 600 1310 1151 Output Total 450 1100 1400 Balance 170 300 297.8 600 -90 1151 Intake, IV 147.8 370 191 Intake, Oral 804 569 2769 600 940 960 Number 1 Bowel Movements Output, Urine 450 1100 1400 Patient 236 lb 232 lb 236 lb Weight Weight Standing Scale Standing Scale Measurement Method Physical Exam: NAD VS as above Lungs: clear CV: no rub Abd: non-tender Exts: no edema Neuro: A&O Current Medications: Current Medications Sig/Julissa Start time Last Medication Dose Route Stop Time Status Admin Acetaminophen 650 MG Q6P PRN 01/24 0445 AC PO Acetaminophen 1,000 MG Q6P PRN 01/24 0445 AC IV Alprazolam 0.5 MG ONCE ONE 01/26 1930 DC 01/26 PO 01/26 Amlodipine Besylate 10 MG DAILY 01/24 1000 AC 01/26 PO 1033 Aspirin Buffered 81 MG DAILY 01/24 1000 AC 01/26 PO 1032 Atorvastatin Calcium 80 MG 1700 01/24 1700 AC 01/26 PO 1637 Bisacodyl 5 MG DAILY 01/25 2037 AC 01/26 PO 1038 Calcium Carbonate 2,500 MG TID 01/24 1600 AC 01/26 PO 2147 Clonidine 0.1 MG BID 01/24 1000 AC 01/26 PO 2147 Folic Acid 1 MG DAILY 01/24 1000 AC 01/26 PO 1032 Guaifenesin 10 ML Q6P PRN 01/26 0145 AC PO Heparin Sodium 25,000 UNIT Q24H 01/24 0330 DC 01/26 (Porcine) IV 0238 Sodium Chloride 500 ML Insulin Aspart 0 TIDAC 01/24 1700 AC 01/26 SC 1749 Insulin Detemir 31 UNITS BID 01/24 2200 AC 01/26 SC 2148 Levothyroxine Sodium 0.274 MG DAILY AC 01/24 0700 AC 01/26 PO 0604 Melatonin 5 MG AT BEDTIME 01/25 2200 AC 01/26 PO 214 Metoprolol Tartrate 100 MG DAILY 01/24 1000 AC 01/26 PO 1033 Nitroglycerin 2 GM Q6 01/24 0058 AC 01/27 TOP 0602 Polyethylene Glycol 17 GM DAILY 01/25 203 AC PO Senna 187 MG AT BEDTIME 01/25 2200 AC 01/26 PO 2148 Tamsulosin HCl 0.4 MG DAILY 01/24 1000 AC 01/26 PO 1032 Ticagrelor 90 MG BID 01/24 1000 AC 01/26 PO 2147 Trazodone HCl 150 MG AT BEDTIME 01/24 2200 AC 01/26 PO 214 Results Pertinent Lab Results: Laboratory Tests 01/27 01/26 01/26 01/26 01/25 0612 1600 0620 0040 2027 Chemistry Sodium (137 - 145 mmol/L) 137 137 Potassium (3.5 - 5.1 mmol/L) 4.4 4.2 Chloride (98 - 107 mmol/L) 100 100 Carbon Dioxide (22 - 30 mmol/L) 24 25 Anion Gap (5 - 16) 12 13 BUN (9 - 20 mg/dL) 47 H 43 H Creatinine (0.7 - 1.2 mg/dL) 4.4 H 4.4 H Estimated GFR (>60 ml/min) 14 L 14 L BUN/Creatinine Ratio (7 - 25 %) 10.7 9.8 Magnesium (1.6 - 2.3 mg/dL) 2.4 H Troponin I (<0.11 ng/ml) 0.23 *H 0.28 *H Coagulation APTT (25 - 37 SEC) Cancelled > 120 *H 35 04/18 04/18 04/17 1240 4010 5 Chemistry Sodium (137 - 145 mmol/L) 137 Potassium (3.5 - 5.1 mmol/L) 4.5 Chloride (98 - 107 mmol/L) 99 Carbon Dioxide (22 - 30 mmol/L) 25 Anion Gap (5 - 16) 13 BUN (9 - 20 mg/dL) 45 H Creatinine (0.7 - 1.2 mg/dL) 4.5 H Estimated GFR (>60 ml/min) 13 L Glucose (65 - 99 mg/dL) 94 Calcium (8.4 - 10.2 mg/dL) 7.0 L Phosphorus (2.5 - 4.5 mg/dL) 5.0 H Magnesium (1.6 - 2.3 mg/dL) 2.5 H Iron (49 - 181 ug/dL) 38 L TIBC (261 - 462 ug/dL) 229 L Ferritin (17.9 - 464 ng/mL) 158.0 Total Bilirubin (0.2 - 1.3 mg/dL) 0.8 AST (17 - 59 U/L) 15 L ALT (21 - 72 U/L) 29 Troponin I (<0.11 ng/ml) 0.46 *H 0.57 *H Albumin (3.5 - 5.0 g/dL) 3.3 L Coagulation APTT (25 - 37 SEC) 105 *H 39 H Hematology CBC w Diff NO MAN DIFF REQ WBC (4.8 - 10.8 /CUMM) 7.4 RBC (4.70 - 6.10 /CUMM) 3.56 L Hgb (14.0 - 18.0 G/DL) 9.4 L Hct (42 - 52 %) 28.3 L MCV (80.0 - 94.0 FL) 79.6 L MCH (27.0 - 31.0 PG) 26.3 L RDW (11.5 - 14.5 %) 13.9 Plt Count (130 - 400 /CUMM) 269 MPV (7.4 - 10.4 FL) 6.9 L Gran % (42.2 - 75.2 %) 72.3 Lymphocytes % (20.5 - 51.1 %) 15.8 L Monocytes % (1.7 - 9.3 %) 9.7 H Eosinophils % (0 - 5 %) 1.9 Basophils % (0.0 - 2.0 %) 0.3 Absolute Granulocytes (1.4 - 6.5 /CUMM) 5.4 Absolute Lymphocytes (1.2 - 3.4 /CUMM) 1.2 Absolute Monocytes (0.10 - 0.60 /CUMM) 0.7 H Absolute Eosinophils (0.0 - 0.7 /CUMM) 0.1 Absolute Basophils (0.0 - 0.2 /CUMM) 0 PUBS MCHC (33.0 - 37.0 G/DL) 33.1 01/24 01/24 01/24 1828 1310 1000 Chemistry Troponin I (<0.11 ng/ml) 0.78 *H Coagulation APTT (25 - 37 SEC) > 120 *H 39 H
[2017-01-27] MEDS ORDERED: XANAX0.5 M1 PO (11:14)
--- NOTE | 2017-01-27 11:42 | Cons- Pulmonary ---
General Information and HPI Consulting Request Date of Consult: 01/27/17 Requested By: Dr. Shoemaker Reason for Consult: dyspnea Source of Information: patient Exam Limitations: no limitations History of Present Illness: Consultation requested for a 67 year old man for dyspnea. Known to me from the office. Last seen 05/2016. Carries a diagnosis of severe obstructive sleep apnea with loud snoring there were significant number of periodic limb movements. AHI is elevated to 42.4 per hour sleep with an oxygen saturation lowest 89%. Due to his previous financial circumstances he chose not to pursue therapy at that time and was to return for follow up. He also has COPD and has tried BREO without benefit, but has benefit from proair prior to exertion. Sees Dr. Benedict. Pt has a significant hx of DM, HNT, heart disease, high cholesterol, CKD, obesity. He also has chest pain on exertion that he has evaluated by Dr. Lee. He does have sleep disturbances and fatigue including significant snoring and has had a history of apneic episodes. He is a former smoker quit in 2012 however he has smoked up to 4 packs per day and has a very significant smoking history. LDCT - Chest CT performed in July 2015 for lung cancer screening. He is a right diaphragmatic elevation suggesting of possible right phrenic dysfunction and compressive atelectasis in the right lung base. It is noncalcified and calcified nodules in the right lung the largest being 0.5 cm. Three-vessel coronary artery atherosclerosis is noted. Lung cancer screening follow-up was recommended in 12 months. He has been prescribed pro-air in the past he is also on beta blockers. He has had Xopenex HFA as well. Pulmonary function testing was performed 01/01/2016 showing a restrictive ventilatory pattern. With a significant bronchodilator response suggesting reactive airway disease or mild obstruction. Allergies/Medications Allergies: Coded Allergies: morphine (Mild, LOOPY 01/18/17) hydromorphone (DEPRESSED RESPIRATIONS 01/18/17) Uncoded Allergies: CONTRAST DYE (CONTRAINDICATED 01/11/17) Home Med List: Alprazolam (Xanax) 0.5 MG TABLET 1 TAB PO DAILY PRN ANXIETY Amlodipine Besylate (Norvasc) 10 MG TABLET 1 TAB PO DAILY HTN (Reported) Aspirin (Ecotrin*) 81 MG TABLET.DR 1 TAB PO DAILY CAD (Reported) Atorvastatin Calcium (Lipitor) 80 MG TABLET 1 TAB PO DAILY CHOLESTEROL ( Reported) Clonidine HCl 0.1 MG TABLET 1 TAB PO BID BP (Reported) Folic Acid 1 MG TABLET 1 TAB PO DAILY SUPPLEMENT (Reported) Insulin Glargine,Hum.rec.anlog (Lantus Solostar) 100 UNIT/1 ML INSULN.PEN 62 UNITS SC AT BEDTIME DIABETES (Reported) Isosorbide Mononitrate (Isosorbide Mononitrate ER) 60 MG TAB.ER.24H 1 TAB PO DAILY CAD (Reported) Levothyroxine Sodium 137 MCG TABLET 2 TAB PO DAILY AC THYROID (Reported) Liraglutide (Victoza 3-Zeus) 0.6 MG/0.1 ML PEN.INJCTR 1.8 MG PO DAILY DIABETES (Reported) Metoprolol Tartrate 100 MG TABLET 1 TAB PO DAILY HEART (Reported) Sevelamer Carbonate (Renvela) 800 MG TABLET 2 TAB PO TID ESRD (Reported) Tamsulosin HCl 0.4 MG CAP.ER.24H 1 CAP PO DAILY PROSTATE (Reported) Ticagrelor (Brilinta) 90 MG TABLET 1 TAB PO BID CAD (Reported) Trazodone HCl 150 MG TABLET 1 TAB PO QPM SLEEP (Reported) Current Medications: Current Medications Sig/Julissa Start time Last Medication Dose Route Stop Time Status Admin Acetaminophen 650 MG Q6P PRN 01/24 0445 AC PO Acetaminophen 1,000 MG Q6P PRN 01/24 0445 AC IV Alprazolam 0.5 MG ONCE PRN 01/27 1045 AC PO 02/03 1044 Alprazolam 0.5 MG ONCE ONE 01/26 1930 DC 01/26 PO 01/26 193 1926 Amlodipine Besylate 10 MG DAILY 01/24 1000 AC 01/27 PO 1013 Aspirin Buffered 81 MG DAILY 01/24 1000 AC 01/27 PO 1013 Atorvastatin Calcium 80 MG 1700 01/24 1700 AC 01/26 PO 1637 Bisacodyl 5 MG DAILY 01/25 2037 AC 01/26 PO 1038 Budesonide/ 2 PUF BID 01/27 1120 AC Formoterol Fumarate INH Calcium Carbonate 2,500 MG TID 01/24 1600 AC 01/27 PO 1012 Clonidine 0.1 MG BID 01/24 1000 AC 01/27 PO 1013 Folic Acid 1 MG DAILY 01/24 1000 AC 01/27 PO 1013 Guaifenesin 10 ML Q6P PRN 01/26 0145 AC PO Heparin Sodium 25,000 UNIT Q24H 01/24 0330 DC 01/26 (Porcine) IV 0238 Sodium Chloride 500 ML Insulin Aspart 0 TIDAC 01/24 1700 AC 01/26 SC 1749 Insulin Detemir 31 UNITS BID 01/24 2200 AC 01/27 SC 1011 Levothyroxine Sodium 0.274 MG DAILY AC 01/24 0700 AC 01/27 PO 1012 Melatonin 5 MG AT BEDTIME 01/25 2200 AC 01/26 PO 2148 Metoprolol Tartrate 100 MG DAILY 01/24 1000 AC 01/27 PO 1013 Nitroglycerin 2 GM Q6 01/24 0058 AC 01/27 TOP 0602 Polyethylene Glycol 17 GM DAILY 01/25 2037 AC 01/27 PO 1013 Senna 187 MG AT BEDTIME 01/25 220 AC 01/26 PO 2148 Tamsulosin HCl 0.4 MG DAILY 01/24 1000 AC 01/27 PO 1013 Ticagrelor 90 MG BID 01/24 1000 AC 01/27 PO 1012 Trazodone HCl 150 MG AT BEDTIME 01/24 2200 AC 01/26 PO 2147 Review of Systems Comments 18 point review of systems performed. Pertinent positive and negative findings are in the HPI, otherwise negative. 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 Home Services at Home: None Smoking Status: Former Smoker ETOH Use: denies use Illicit Drug Use: denies illicit drug use Exam & Diagnostic Data Last 24 Hrs of Vital Signs/I&O Vital Signs Date Time Temp Pulse Resp B/P B/P Pulse O2 O2 Flow FiO2 Mean Ox Delivery Rate 01/27 1013 99.9 104 20 152/72 01/27 1013 99.9 104 20 152/72 01/27 1013 99.9 104 20 152/72 01/27 1013 99.9 104 20 152/72 01/27 0817 99.9 104 20 152/72 95 Nasal 4.0L Cannula 01/27 0800 Nasal 4.0L Cannula 01/27 0000 96 Nasal 4.0L Cannula 01/26 2341 99.4 88 18 130/62 96 Nasal Cannula 01/26 2147 94 126/70 01/26 1530 98.3 79 18 122/64 93 Nasal 4.0L Cannula 01/26 1151 Nasal 4.0L Cannula 01/26 1150 90 Nasal 3.0L Cannula Intake & Output 01/27 1600 01/27 0800 01/27 0000 Intake Total 620 300 Output Total 450 Balance 170 300 Intake, Oral 620 300 Output, Urine 450 Patient 236 lb Weight Weight Standing Scale Measurement Method Physical Exam Other Physical Findings: Gen - alert and awake HEENT - NCAT, pharyngeal crowding CVS - S1, S2, no murmurs, rubs or gallops Lungs - clear to auscultation bilaterally, prolonged expiratory phase Abdomen - soft, non-tender, bs+ Ext - no edema, no cyanosis Last 48 Hrs of Labs/Angus: Laboratory Tests 01/27/17 0612: Anion Gap 12, Estimated GFR 14 L, BUN/Creatinine Ratio 10.7 01/26/17 1600: APTT Cancelled 01/26/17 0620: Anion Gap 13, Estimated GFR 14 L, BUN/Creatinine Ratio 9.8, Magnesium 2.4 H, Troponin I 0.23 *H, APTT > 120 *H 01/26/17 0040: Troponin I 0.28 *H 01/25/17 2028: APTT 35 01/25/17 1240: APTT 105 *H Assessment/Plan Impression/Plan: Impression 67-year-old man * Shortness of breath that is likely initially from an elevated BNP and a fluid overload component that he currently does not have, his current shortness of breath is most likely secondary to an element of anxiety that the patient admits to. * Underlying COPD seems to be stable and has more of a restrictive pattern on PFTs with a possible mild obstruction * Underlying untreated sleep apnea that needs to be reevaluated on an outpatient basis Plan -Anxiolysis is recommended -Symbicort 160 over 4.5 g 2 puffs twice a day with rinsing of the mouth as a trial -Ensure the patient has a rescue inhaler with at home -Outpatient restudy of his sleep apnea -He is enrolled in the low-dose CAT scan screening for lung cancer program next one due in July 2017 DVT prophylaxis at all times Consult Acknowledgment - Thank you for your consult request.
--- NOTE | 2017-01-27 15:51 | PN- Att Addend ---
Attending MD Review Statement Attending Statement Attending MD Statement: examined this patient, discuss w/resident/PA/HUMAN CAPITAL CONSULTANT, agreed w/resident/PA/HUMAN CAPITAL CONSULTANT, reviewed EMR data (avail), discussed w/nursing, discussed w/ case mgmt Attending Assessment/Plan: Laboratory Tests 01/27/17 0612: Anion Gap 12, Estimated GFR 14 L, BUN/Creatinine Ratio 10.7 01/26/17 1600: APTT Cancelled Vital Signs Date Time Temp Pulse Resp B/P B/P Pulse O2 O2 Flow FiO2 Mean Ox Delivery Rate 01/27 1425 95 Venti Mask 28% 01/27 1013 99.9 104 20 152/72 01/27 1013 99.9 104 20 152/72 01/27 1013 99.9 104 20 152/72 01/27 1013 99.9 104 20 152/72 01/27 0817 99.9 104 20 152/72 95 Nasal 4.0L Cannula 01/27 0800 Nasal 4.0L Cannula 01/27 0000 96 Nasal 4.0L Cannula 01/26 2341 99.4 88 18 130/62 96 Nasal Cannula 01/26 2147 94 126/70 Patient seen and examined at bedside. Discussed with patient the care plan. Patient had an acute episode of anxiety this morning which was relieved with Ativan this morning. Patient continues to have anxiety and the sleep issues. We consulted Dr. Moyer from pulmonology given his prior history of sleep apnea and not using any CPAP at home. Dr. Moyer discussed with the patient and he will be scheduling patient for another sleep study. We will monitor the patient for anxiety attacks tonight and if he is stable we will discharge the patient on when necessary Ativan tomorrow.
[2017-01-27 16:00] VITALS: BP 134/82
--- NOTE | 2017-01-27 16:48 | PN- Cardiology ---
Subjective Subjective: Doing OK with no further chest discomfort. Episodes of nocturnal "anxiety" noted. Still desating with ambulation and on supplemental O2. Objective Vital Signs and I&Os Vital Signs Date Time Temp Pulse Resp B/P B/P Pulse O2 O2 Flow FiO2 Mean Ox Delivery Rate 01/27 1425 95 Venti Mask 28% 01/27 1013 99.9 104 20 152/72 01/27 1013 99.9 104 20 152/72 01/27 1013 99.9 104 20 152/72 01/27 1013 99.9 104 20 152/72 01/27 0817 99.9 104 20 152/72 95 Nasal 4.0L Cannula 01/27 0800 Nasal 4.0L Cannula 01/27 0000 96 Nasal 4.0L Cannula 01/26 2341 99.4 88 18 130/62 96 Nasal Cannula 01/26 2147 94 126/70 Intake & Output 01/27 1600 01/27 0800 01/27 0000 01/26 1600 01/26 0800 01/26 0000 Intake Total 560 620 300 847.8 550 600 Output Total 400 450 400 700 Balance 160 170 300 447.8 -150 600 Intake, IV 147.8 Intake, Oral 560 620 300 700 550 600 Number 1 Bowel Movements Output, Urine 400 450 400 700 Patient 236 lb 232 lb Weight Weight Standing Scale Standing Scale Measurement Method Current Medications: Current Medications Sig/Julissa Start time Last Medication Dose Route Stop Time Status Admin Acetaminophen 650 MG Q6P PRN 01/24 0445 AC PO Acetaminophen 1,000 MG Q6P PRN 01/24 0445 AC IV Alprazolam 0.5 MG BID PRN 01/27 1600 AC PO 02/03 1558 Alprazolam 0.5 MG ONCE PRN 01/27 1045 DC 01/27 PO 02/03 1044 1435 Alprazolam 0.5 MG ONCE ONE 01/26 1930 DC 01/26 PO 01/26 193 1926 Amlodipine Besylate 10 MG DAILY 01/24 1000 AC 01/27 PO 1013 Aspirin Buffered 81 MG DAILY 01/24 1000 AC 01/27 PO 1013 Atorvastatin Calcium 80 MG 1700 01/24 1700 AC 01/26 PO 1637 Bisacodyl 5 MG DAILY 01/25 2037 AC 01/26 PO 1038 Budesonide/ 2 PUF BID 01/27 1120 AC Formoterol Fumarate INH Calcium Carbonate 2,500 MG TID 01/24 1600 AC 01/27 PO 1012 Clonidine 0.1 MG BID 01/24 1000 AC 01/27 PO 1013 Folic Acid 1 MG DAILY 01/24 1000 AC 01/27 PO 1013 Guaifenesin 10 ML Q6P PRN 01/26 0145 AC PO Insulin Aspart 0 TIDAC 01/24 1700 AC 01/27 SC 1306 Insulin Detemir 31 UNITS BID 01/24 2200 AC 01/27 SC 1011 Levothyroxine Sodium 0.274 MG DAILY AC 01/24 0700 AC 01/27 PO 1012 Melatonin 5 MG AT BEDTIME 01/25 2200 AC 01/26 PO 2148 Metoprolol Tartrate 100 MG DAILY 01/24 1000 AC 01/27 PO 1013 Nitroglycerin 2 GM Q6 01/24 0058 AC 01/27 TOP 1251 Patient Medication 1 ED .STK-MED ONE 01/27 1151 NH Teaching ED 01/27 1152 Polyethylene Glycol 17 GM DAILY 01/25 2037 AC 01/27 PO 1013 Senna 187 MG AT BEDTIME 01/25 2200 AC 01/26 PO 2148 Tamsulosin HCl 0.4 MG DAILY 01/24 1000 AC 01/27 PO 1013 Ticagrelor 90 MG BID 01/24 1000 AC 01/27 PO 1012 Trazodone HCl 150 MG AT BEDTIME 01/24 2200 AC 01/26 PO 2147 Results Last 48 Hrs of Labs/Mics: Laboratory Tests 01/27/17 0612: Anion Gap 12, Estimated GFR 14 L, BUN/Creatinine Ratio 10.7 01/26/17 1600: APTT Cancelled 01/26/17 0620: Anion Gap 13, Estimated GFR 14 L, BUN/Creatinine Ratio 9.8, Magnesium 2.4 H, Troponin I 0.23 *H, APTT > 120 *H 01/26/17 0040: Troponin I 0.28 *H 01/25/172027: APTT 35 Assessment/Plan Assessment/Plan Assessment: 1. Diabetes mellitus 2. Chronic kidney disease 3. CAD, status post multiple stents 4. Chest discomfort with mild troponin elevation, possible non-ST elevation [place] versus demand ischemia. 5. LVEF 50-55 percent with hypokinetic apex on echocardiogram Recommendations: - I had an extended discussion with the patient today about his current status and options for further evaluation vs watchful waiting. - After an extended discussion, we agreed that further evaluation, for now, will be placed on hold due to the risk of worsening renal function with invasive testing and the likelihood that non invasive testing with pharmacologic nuclear stress testing would be unlikley to yield any usefule information. - Stable off heparin - In view of the patient's continued oxygen requirements, consider input from Dr. Moyer. - OOB as tolerated. Continue telemetry? Yes
[2017-01-27 23:56] VITALS: BP 124/82
--- NOTE | 2017-01-28 07:19 | PN- Housestaff ---
Subjective Follow-up For: Chest pain with troponin elevation, possible NSTEMI versus demand ischemia Dyspnea Anxiety Tele-Events Since Last Visit: Sinus rhythm HR 71-84 PVCs No events Subjective: No acute events overnight. Patient seen and examined this morning. He feels good and has no complaints. He took Xanax and melatonin last night which allowed him to sleep well without panic attacks. He denies chest pain. His oxygen saturation was 87% at rest and 86% with ambulation on room air. Review of Systems Constitutional: Reports: see HPI. Objective Last 24 Hrs of Vital Signs/I&O Vital Signs Date Time Temp Pulse Resp B/P B/P Pulse O2 O2 Flow FiO2 Mean Ox Delivery Rate 01/28 0944 90 134/72 01/28 0943 90 134/72 01/28 0939 90 134/72 01/28 0938 90 134/72 01/28 0842 98.3 90 18 134/72 94 Nasal 2.0L Cannula 01/28 0822 95 Nasal 2.0L Cannula 01/28 0000 96 Nasal 3.0L Cannula 01/27 2356 98.2 88 20 124/82 94 Nasal Cannula 01/27 2246 88 138/70 Intake & Output 01/28 1600 01/28 0800 01/28 0000 Intake Total 400 600 600 Output Total 375 Balance 400 600 225 Intake, Oral 400 600 600 Output, Urine 375 Patient 105.404 kg 105.233 kg Weight Weight Standing Scale Measurement Method Physical Exam General Appearance: Alert, Oriented X3, No Acute Distress HEENT: Atraumatic, Mucous Membr. moist/pink Neck: Supple Cardiovascular: Regular Rate, Normal S1, Normal S2, No Murmurs, Gallops, Rubs Lungs: Clear to Auscultation Abdomen: Soft, No Tenderness, Positive Bowel Sounds Extremities: No Clubbing, No Cyanosis, No Edema Current Medications: Current Medications Sig/Julissa Start time Last Medication Dose Route Stop Time Status Admin Acetaminophen 650 MG Q6P PRN 01/24 0445 DCD PO Acetaminophen 1,000 MG Q6P PRN 01/24 0445 DCD IV Alprazolam 0.5 MG ONCE ONE 01/28 0930 DC 01/28 PO 01/28 0931 0935 Alprazolam 0.5 MG AT BEDTIME PRN 01/28 0800 DCD PO 02/04 0759 Alprazolam 0.5 MG BID PRN 01/27 1600 DC 01/27 PO 02/03 1558 2245 Amlodipine Besylate 10 MG DAILY 01/24 1000 DCD 01/28 PO 0944 Aspirin Buffered 81 MG DAILY 01/24 1000 DCD 01/28 PO 0938 Atorvastatin Calcium 80 MG 1700 01/24 1700 DCD 01/27 PO 1722 Bisacodyl 5 MG DAILY 01/25 2037 DCD 01/26 PO 1038 Budesonide/ 2 PUF BID 01/27 1120 DCD 01/28 Formoterol Fumarate INH 0945 Calcium Carbonate 2,500 MG TID 01/24 1600 DCD 01/28 PO 1432 Clonidine 0.1 MG BID 01/24 1000 DCD 01/28 PO 0938 Folic Acid 1 MG DAILY 01/24 1000 DCD 01/28 PO 0940 Guaifenesin 10 ML Q6P PRN 01/26 0145 DCD PO Insulin Aspart 0 TIDAC 01/24 1700 DCD 01/28 SC 1221 Insulin Detemir 31 UNITS BID 01/24 2200 DCD 01/28 SC 0940 Levothyroxine Sodium 0.274 MG DAILY AC 01/24 0700 DCD 01/28 PO 0641 Melatonin 5 MG AT BEDTIME 01/25 2200 DCD 01/27 PO 2245 Metoprolol Tartrate 100 MG DAILY 01/24 1000 DCD 01/28 PO 0943 Nitroglycerin 2 GM Q6 01/24 0058 DCD 01/28 TOP 1221 Polyethylene Glycol 17 GM DAILY 01/25 2037 DCD 01/27 PO 1013 Senna 187 MG AT BEDTIME 01/25 2200 DCD 01/26 PO 2148 Tamsulosin HCl 0.4 MG DAILY 01/24 1000 DCD 01/28 PO 0939 Ticagrelor 90 MG BID 01/24 1000 DCD 01/28 PO 0935 Trazodone HCl 150 MG AT BEDTIME 01/24 2200 DCD 01/27 PO 2245 Last 24 Hrs of Lab/Angus Results Last 24 Hrs of Labs/Mics: Laboratory Tests 01/28/17 1000: Anion Gap 13, Estimated GFR 13 L, BUN/Creatinine Ratio 10.7 Assessment/Plan Assessment: 67 y/o M with PMHx of T2DM, CAD c/b recent [place] s/p stent placement x3 and CKD stage 4-5 who presents with chest discomfort. #Chest pain: NSTEMI vs demand ischemia in the setting of troponin elevation, maximum troponin 0.84. Troponins have trended down. ECHO with hypokinetic apex and borderline normal LVEF estimated at 50-55%. Stable off IV heparin. * Discharge home today with physical therapy. * Further evaluation deferred since cardiac catheterization would have the risk of worsening kidney function and pharmacologic nuclear stress is unlikely to yield any useful information. * Continue prior to admission cardiac medications including metoprolol 100 mg PO daily, aspirin 81 mg PO daily, atorvastatin 80 mg PO daily, Brilinta 90 mg PO BID, amlodipine 10 mg PO daily and Imdur 60 mg ER PO daily on discharge. #Acute hypoxemic respiratory failure: Likely secondary to anxiety per pulmonology. Underlying COPD is stable with a restrictive pattern on pulmonary function tests with a possible mild obstruction. SOB subjectively improved today but SpO2 was 86% at rest and 87% with ambulation on room air. * Follow up with hand ii cutter Dr. Moyer on discharge. * Send home with oxygen. * Outpatient sleep study planned for MILES per pulmonology. * Continue Symbicort 160 over 4.5 g 2 puffs BID with rinsing of the mouth on discharge. * Albuterol rescue inhaler added to discharge medications. * Patient is enrolled in low-dose CT scan screening given his extensive smoking history and next CT is scheduled in July 2017. #Anxiety: Has been having nocturnal anxiety attacks. Improved with Xanax. * 15-tab supply of Xanax 0.5 mg PO BID PRN for anxiety provided on discharge. #CKD: No evidence of volume overload on exam. Creatinine stable. * Follow up with mold stacker on discharge. Diet: Consistent Carbohydrate 2 DVT PPx: ALPs CODE: FULL Problem List: 1. Chest pain 2. Elevated troponin 3. CKD (chronic kidney disease) 4. Anxiety 5. Acute hypoxemic respiratory failure 6. MILES (obstructive sleep apnea) 7. COPD (chronic obstructive pulmonary disease) 8. Dyspnea Pain Ratin Pain Location: N/A Pain Goal: Remain pain free Pain Plan: Tylenol 650 mg PO Q6H PRN for mild pain (scale 1-3) Tylenol 1 g IV Q6H PRN for moderate pain (scale 4-6) Tomorrow's Labs & Rationales: None Discharge Plan Discharge Disposition: home Stable for Discharge? Yes Anticipated Discharge (Day): today
[2017-01-28] MEDS ORDERED: PROAIR HFA8.5 GM INH (07:21)
[2017-01-28] MEDS ORDERED: SYMBICORT 16010.2 GM INH ×2 (07:21→13:25)
--- NOTE | 2017-01-28 08:01 | PN- Cardiology ---
Subjective Subjective: The patient reports that he is feeling well. No further chest pain. No shortness of breath. No palpitations. No lightheadedness or dizziness. No diaphoresis. His anxiety is improved. Objective Vital Signs and I&Os Vital Signs Date Time Temp Pulse Resp B/P B/P Pulse O2 O2 Flow FiO2 Mean Ox Delivery Rate 01/28 0000 96 Nasal 3.0L Cannula 01/27 2356 98.2 88 20 124/82 94 Nasal Cannula 01/27 2246 88 138/70 01/27 1600 96 Nasal 2.0L Cannula 01/27 1600 98.4 80 20 134/82 92 Nasal 2.0L Cannula 01/27 1425 95 Venti Mask 28% 01/27 1013 99.9 104 20 152/72 01/27 1013 99.9 104 20 152/72 01/27 1013 99.9 104 20 152/72 01/27 1013 99.9 104 20 152/72 01/27 0817 99.9 104 20 15272 95 Nasal 4.0L Cannula 01/27 0800 Nasal 4.0L Cannula Intake & Output 01/28 0800 01/28 0000 01/27 1600 01/27 0800 01/27 0000 01/26 1600 Intake Total 600 600 560 620 300 847.8 Output Total 375 400 450 400 Balance 600 225 160 170 300 447.8 Intake, IV 147.8 Intake, Oral 600 600 560 620 300 700 Number 1 Bowel Movements Output, Urine 375 400 450 400 Patient 232 lb 236 lb Weight Weight Standing Scale Standing Scale Measurement Method Physical Exam: Gen: The patient is in no acute distress HEENT: Normal nose, ears, and oropharynx. Pupils equal bilaterally. Conjunctiva normal. Neck: Supple with no JVD, no masses, and no thyromegaly Lungs: few scattered rales with normal respiratory effort Heart: RRR, S1, S2, 1/6 systolic murmur. Trace peripheral edema, 2+ pulses in the lower extremities bilaterally Abdomen: Soft, nontender, no masses. No hepatomegaly. No splenomegaly Extremities: No clubbing or cyanosis. Normal muscle strength in the upper and lower extremities Skin: Normal skin turgor with no skin ulcers or lesions noted. Current Medications: Current Medications Sig/Julissa Start time Last Medication Dose Route Stop Time Status Admin Acetaminophen 650 MG Q6P PRN 01/24 0445 AC PO Acetaminophen 1,000 MG Q6P PRN 01/24 0445 AC IV Alprazolam 0.5 MG AT BEDTIME PRN 01/28 0800 AC PO 02/04 0759 Alprazolam 0.5 MG BID PRN 01/27 1600 DC 01/27 PO 02/03 1558 2245 Alprazolam 0.5 MG ONCE PRN 01/27 1045 DC 01/27 PO 02/03 1044 1435 Amlodipine Besylate 10 MG DAILY 01/24 1000 AC 01/27 PO 1013 Aspirin Buffered 81 MG DAILY 01/24 1000 AC 01/27 PO 1013 Atorvastatin Calcium 80 MG 1700 01/24 1700 AC 01/27 PO 1722 Bisacodyl 5 MG DAILY 01/25 2037 AC 01/26 PO 1038 Budesonide/ 2 PUF BID 01/27 1120 AC 01/27 Formoterol Fumarate INH 2244 Calcium Carbonate 2,500 MG TID 01/24 1600 AC 01/27 PO 2246 Clonidine 0.1 MG BID 01/24 1000 AC 01/27 PO 2246 Folic Acid 1 MG DAILY 01/24 1000 AC 01/27 PO 1013 Guaifenesin 10 ML Q6P PRN 01/26 0145 AC PO Insulin Aspart 0 TIDAC 01/24 1700 AC 01/27 SC 1726 Insulin Detemir 31 UNITS BID 01/24 2200 AC 01/27 SC 2246 Levothyroxine Sodium 0.274 MG DAILY AC 01/24 0700 AC 01/28 PO 0641 Melatonin 5 MG AT BEDTIME 01/25 2200 AC 01/27 PO 2245 Metoprolol Tartrate 100 MG DAILY 01/24 1000 AC 01/27 PO 1013 Nitroglycerin 2 GM Q6 01/24 0058 AC 01/28 TOP 0635 Patient Medication 1 ED .STK-MED ONE 01/27 1151 DC Teaching ED 01/27 1152 Polyethylene Glycol 17 GM DAILY 01/25 2037 AC 01/27 PO 1013 Senna 187 MG AT BEDTIME 01/25 2200 AC 01/26 PO 2148 Sodium Chloride 2 SPRAY ONCE ONE 01/27 1730 DC DALIA 01/27 1731 Tamsulosin HCl 0.4 MG DAILY 01/24 1000 AC 01/27 PO 1013 Ticagrelor 90 MG BID 01/24 1000 AC 01/27 PO 2247 Trazodone HCl 150 MG AT BEDTIME 01/24 2200 AC 01/27 PO 2245 Results Last 48 Hrs of Labs/Mics: Laboratory Tests 01/27/17 0612: Anion Gap 12, Estimated GFR 14 L, BUN/Creatinine Ratio 10.7 01/26/17 1600: APTT Cancelled Recent Imaging Studies: Chest x-ray 01/26/17: Central vascular prominence without overt edema. Assessment/Plan Assessment/Plan Assessment: 1. Diabetes mellitus 2. Chronic kidney disease 3. CAD, status post multiple stents 4. Chest discomfort with mild troponin elevation, possible non-ST elevation [place] versus demand ischemia. 5. LVEF 50-55 percent with hypokinetic apex on echocardiogram Plan: * Coronary artery disease will be treated conservatively for now given the risk of worsening renal function with invasive testing. * Continue current cardiac medications. * Follow up with Dr. Lee in one week after discharge. Continue telemetry? No
--- NOTE | 2017-01-28 08:06 | Patient Discharge Instructions ---
Discharge Instructions General Discharge Information You were seen/treated for: Chest pain with troponin elevation, possible NSTEMI versus demand ischemia Chronic kidney disease Dyspnea Watch for these problems: Chest pain, pressure or tightness Pain in your jaw, neck, arm, stomach or back Difficulty breathing Nausea or vomiting Dizziness or confusion Special Instructions: Please follow up with your primary care physician Dr. Lakeisha Benedict within one week of discharge. Please follow up with your pharmacy informatics manager Dr. Trevor Lee for your heart within one week of discharge Please follow up with your bond clerk Dr. Trevor Escamilla for your kidneys within two weeks of discharge. Please follow up with your welt slasher Dr. Inocencio Moyer for your lungs within two weeks of discharge. Please take all medications as prescribed. You can take [id number] melatonin at bedtime as needed for sleep. Diet Recommended Diet: Diabetic, Heart Healthy Activity Full Activity/No Limits: Yes Acute Coronary Syndrome Inclusion Criteria At DC or during hospital stay patient has or had the following: ACS DIAGNOSIS Yes Discharge Core Measures Meds if any: Prescribed or Continued at Discharge SHERRELL/ARB if EF <40% No (LVEF estimated at 50-55%) Aspirin Yes Beta-Christine Yes Statin Yes Meds if any: NOT Prescribed or Continued at Discharge Congestive Heart Failure Inclusion Criteria At DC or during hospital stay patient has or had the following: CHF DIAGNOSIS No Discharge Core Measures Meds if any: Prescribed or Continued at Discharge Meds if any: NOT Prescribed or Continued at Discharge Cerebrovascular accident Inclusion Criteria At DC or during hospital stay patient has or had the following: CVA/TIA Diagnosis No Discharge Core Measures Meds if any: Prescribed or Continued at Discharge Meds if any: NOT Prescribed or Continued at Discharge Venous thromboembolism Inclusion Criteria VTE Diagnosis No VTE Type NONE VTE Confirmed by (Test) NONE Discharge Core Measures - Per Current guidelines, there needs to be overlap - treatment for the first 5 days of Warfarin therapy. - If discharged on Warfarin prior to 5 days of - overlap therapy, the patient will need to be - assessed for post discharge needs including - *Post discharge parental anticoagulation - *Warfarin and/or parental anticoagulation education - *Follow up date to check INR post discharge At least 5 days overlap therapy as Inpatient No Meds if any: Prescribed or Continued at Discharge Note: Overlap Therapy is Warfarin and Anticoagulant Meds if any: NOT Prescribed or Continued at Discharge
--- NOTE | 2017-01-28 08:39 | PN- Nephrology ---
Assessment/Plan Assessment: Stable creatinne. Not volume overloaded. Suggestion: OK for discharge from renal standpoint. He will follow up with Dr. Espinoza in [place]. Subjective Subjective: Patient with no chest pain or anxiety attacks over night. Probably being discharged today. Objective Vital Signs and I&Os Vital Signs Date Time Temp Pulse Resp B/P B/P Pulse O2 O2 Flow FiO2 Mean Ox Delivery Rate 01/28 0822 95 Nasal 2.0L Cannula 01/28 0000 96 Nasal 3.0L Cannula 01/27 2356 98.2 88 20 124/82 94 Nasal Cannula 01/27 2246 88 138/70 01/27 1600 96 Nasal 2.0L Cannula 01/27 1600 98.4 80 20 134/82 92 Nasal 2.0L Cannula 01/27 1425 95 Venti Mask 28% 01/27 1013 99.9 104 20 152/72 01/27 1013 99.9 104 20 152/72 01/27 1013 99.9 104 20 152/72 01/27 1013 99.9 104 20 152/72 Intake & Output 01/28 1600 01/28 0400 01/27 1600 01/27 0400 01/26 1600 01/26 0400 Intake Total 353 907 3866 300 1397.8 600 Output Total 031 421 0408 Balance 600 225 330 300 297.8 600 Intake, IV 147.8 Intake, Oral 260 784 4584 300 1250 600 Number 1 Bowel Movements Output, Urine 657 020 2726 Patient 232 lb 236 lb 232 lb Weight Weight Standing Scale Standing Scale Standing Scale Measurement Method Physical Exam: NAD VS as above Lungs: clear CV: no rub Abd: non-tender Exts: no edema Neuro: A&O Current Medications: Current Medications Sig/Julissa Start time Last Medication Dose Route Stop Time Status Admin Acetaminophen 650 MG Q6P PRN 01/24 0445 AC PO Acetaminophen 1,000 MG Q6P PRN 01/24 0445 AC IV Alprazolam 0.5 MG AT BEDTIME PRN 01/28 0800 AC PO 02/04 0759 Alprazolam 0.5 MG BID PRN 01/27 1600 DC 01/27 PO 02/03 1558 2245 Alprazolam 0.5 MG ONCE PRN 01/27 1045 DC 01/27 PO 02/03 1044 1435 Amlodipine Besylate 10 MG DAILY 01/24 1000 AC 01/27 PO 1013 Aspirin Buffered 81 MG DAILY 01/24 1000 AC 01/27 PO 1013 Atorvastatin Calcium 80 MG 1700 01/24 1700 AC 01/27 PO 1722 Bisacodyl 5 MG DAILY 01/25 203 AC 01/26 PO 1038 Budesonide/ 2 PUF BID 01/27 1120 AC 01/27 Formoterol Fumarate INH 2244 Calcium Carbonate 2,500 MG TID 01/24 1600 AC 01/27 PO 2246 Clonidine 0.1 MG BID 01/24 1000 AC 01/27 PO 2246 Folic Acid 1 MG DAILY 01/24 1000 AC 01/27 PO 1013 Guaifenesin 10 ML Q6P PRN 01/26 0145 AC PO Insulin Aspart 0 TIDAC 01/24 1700 AC 01/27 SC 1726 Insulin Detemir 31 UNITS BID 01/24 220 AC 01/27 SC 2246 Levothyroxine Sodium 0.274 MG DAILY AC 01/24 0700 AC 01/28 PO 0641 Melatonin 5 MG AT BEDTIME 01/25 220 AC 01/27 PO 2245 Metoprolol Tartrate 100 MG DAILY 01/24 1000 AC 01/27 PO 1013 Nitroglycerin 2 GM Q6 01/24 0058 AC 01/28 TOP 0635 Patient Medication 1 ED .STK-MED ONE 01/27 1151 DC Teaching ED 01/27 1152 Polyethylene Glycol 17 GM DAILY 01/25 2037 AC 01/27 PO 1013 Senna 187 MG AT BEDTIME 01/25 220 AC 01/26 PO 2148 Sodium Chloride 2 SPRAY ONCE ONE 01/27 1730 DC DALIA 01/27 1731 Tamsulosin HCl 0.4 MG DAILY 01/24 1000 AC 01/27 PO 1013 Ticagrelor 90 MG BID 01/24 1000 AC 01/27 PO 2247 Trazodone HCl 150 MG AT BEDTIME 01/24 220 AC 01/27 PO 2245 Results Pertinent Lab Results: Laboratory Tests 01/27 01/26 01/26 01/26 01/25 0612 1600 0620 0040 2027 Chemistry Sodium (137 - 145 mmol/L) 137 137 Potassium (3.5 - 5.1 mmol/L) 4.4 4.2 Chloride (98 - 107 mmol/L) 100 100 Carbon Dioxide (22 - 30 mmol/L) 24 25 Anion Gap (5 - 16) 12 13 BUN (9 - 20 mg/dL) 47 H 43 H Creatinine (0.7 - 1.2 mg/dL) 4.4 H 4.4 H Estimated GFR (>60 ml/min) 14 L 14 L BUN/Creatinine Ratio (7 - 25 %) 10.7 9.8 Magnesium (1.6 - 2.3 mg/dL) 2.4 H Troponin I (<0.11 ng/ml) 0.23 *H 0.28 *H Coagulation APTT (25 - 37 SEC) Cancelled > 120 *H 35 01/25 1240 Coagulation APTT (25 - 37 SEC) 105 *H
[2017-01-28 08:42] VITALS: BP 134/72
[2017-01-28 09:44] VITALS: BP 134/72
[2017-01-28] MEDS ORDERED: XANAX0.5 M1 PO (10:03)
--- NOTE | 2017-01-28 10:21 | PN- Pulmonary ---
Subjective HPI/Critical Care Issues: pt seen and examined feeling much better anxiolysis provided significant relief did not desaturate on room air Objective Current Medications: Current Medications Sig/Julissa Start time Last Medication Dose Route Stop Time Status Admin Acetaminophen 650 MG Q6P PRN 01/24 0445 AC PO Acetaminophen 1,000 MG Q6P PRN 01/24 0445 AC IV Alprazolam 0.5 MG ONCE ONE 01/28 0930 DC 01/28 PO 01/28 0931 0935 Alprazolam 0.5 MG AT BEDTIME PRN 01/28 0800 AC PO 02/04 0759 Alprazolam 0.5 MG BID PRN 01/27 1600 DC 01/27 PO 02/03 1558 2245 Alprazolam 0.5 MG ONCE PRN 01/27 1045 DC 01/27 PO 02/03 1044 1435 Amlodipine Besylate 10 MG DAILY 01/24 1000 AC 01/28 PO 0944 Aspirin Buffered 81 MG DAILY 01/24 1000 AC 01/28 PO 0938 Atorvastatin Calcium 80 MG 1700 01/24 1700 AC 01/27 PO 1722 Bisacodyl 5 MG DAILY 01/25 2037 AC 01/26 PO 1038 Budesonide/ 2 PUF BID 01/27 1120 AC 01/28 Formoterol Fumarate INH 0945 Calcium Carbonate 2,500 MG TID 01/24 1600 AC 01/28 PO 0936 Clonidine 0.1 MG BID 01/24 1000 AC 01/28 PO 0938 Folic Acid 1 MG DAILY 01/24 1000 AC 01/28 PO 0940 Guaifenesin 10 ML Q6P PRN 01/26 0145 AC PO Insulin Aspart 0 TIDAC 01/24 1700 AC 01/27 SC 1726 Insulin Detemir 31 UNITS BID 01/24 2200 AC 01/28 SC 0940 Levothyroxine Sodium 0.274 MG DAILY AC 01/24 0700 AC 01/28 PO 0641 Melatonin 5 MG AT BEDTIME 01/25 2200 AC 01/27 PO 2245 Metoprolol Tartrate 100 MG DAILY 01/24 1000 AC 01/28 PO 0943 Nitroglycerin 2 GM Q6 01/24 0058 AC 01/28 TOP 0635 Patient Medication 1 ED .STK-MED ONE 01/27 1151 DC Teaching ED 01/27 1152 Polyethylene Glycol 17 GM DAILY 01/25 2037 AC 04/20 PO 1013 Senna 187 MG AT BEDTIME 01/25 2200 AC 01/26 PO 2148 Sodium Chloride 2 SPRAY ONCE ONE 01/27 1730 DC DALIA 01/27 1731 Tamsulosin HCl 0.4 MG DAILY 01/24 1000 AC 01/28 PO 0939 Ticagrelor 90 MG BID 01/24 1000 AC 01/28 PO 0935 Trazodone HCl 150 MG AT BEDTIME 01/24 2200 AC 01/27 PO 2245 Vital Signs & I&O Last 24 Hrs of Vitals and I&O: Vital Signs Date Time Temp Pulse Resp B/P B/P Pulse O2 O2 Flow FiO2 Mean Ox Delivery Rate 01/28 0944 90 134/72 01/28 0943 90 134/72 01/28 0939 90 134/72 01/28 0938 90 134/72 01/28 0842 98.3 90 18 134/72 94 Nasal 2.0L Cannula 01/28 0822 95 Nasal 2.0L Cannula 01/28 0000 96 Nasal 3.0L Cannula 01/27 2356 98.2 88 20 124/82 94 Nasal Cannula 01/27 2246 88 138/70 01/27 1600 96 Nasal 2.0L Cannula 01/27 1600 98.4 80 20 134/82 92 Nasal 2.0L Cannula 01/27 1425 95 Venti Mask 28% Intake & Output 01/28 1600 01/28 0800 01/28 0000 Intake Total 600 600 Output Total 375 Balance 600 225 Intake, Oral 600 600 Output, Urine 375 Patient 232 lb Weight Weight Standing Scale Measurement Method Exam Other Physical Findings: Gen - alert and awake HEENT - NCAT, pharyngeal crowding CVS - S1, S2, no murmurs, rubs or gallops Lungs - clear to auscultation bilaterally, prolonged expiratory phase Abdomen - soft, non-tender, bs+ Ext - no edema, no cyanosis Results Last 24 Hrs of Lab Results: Laboratory Tests 01/28/17 1000: Sodium Pending, Potassium Pending, Chloride Pending, Carbon Dioxide Pending, Anion Gap Pending, BUN Pending, Creatinine Pending, BUN/Creatinine Ratio Pending Impression/Plan Impression/Plan Impression/Plan: Impression 67-year-old man * Shortness of breath improved, most likely anxiety component contributed * Underlying COPD seems to be stable and has more of a restrictive pattern on PFTs with a possible mild obstruction * Underlying untreated sleep apnea that needs to be reevaluated on an outpatient basis Plan -Anxiolysis -Symbicort 160 over 4.5 g 2 puffs twice a day with rinsing of the mouth -Ensure the patient has a rescue inhaler with at home -Outpatient restudy of his sleep apnea -He is enrolled in the low-dose CAT scan screening for lung cancer program next one due in July 2017 DVT prophylaxis at all times Okay for dc from pulmonary perspective
--- NOTE | 2017-01-28 14:41 | PN- Att Addend ---
Attending MD Review Statement Attending Statement Attending MD Statement: examined this patient, discuss w/resident/PA/JUNIOR NET DEVELOPER, agreed w/resident/PA/JUNIOR NET DEVELOPER, discussed with family, reviewed EMR data (avail), discussed w/ nursing Attending Assessment/Plan: Laboratory Tests 01/28/17 1000: Anion Gap 13, Estimated GFR 13 L, BUN/Creatinine Ratio 10.7 Vital Signs Date Time Temp Pulse Resp B/P B/P Pulse O2 O2 Flow FiO2 Mean Ox Delivery Rate 01/28 0944 90 134/72 01/28 0943 90 134/72 01/28 0939 90 134/72 01/28 0938 90 134/72 01/28 0842 98.3 90 18 134/72 94 Nasal 2.0L Cannula 01/28 0822 95 Nasal 2.0L Cannula 01/28 0000 96 Nasal 3.0L Cannula 01/27 2356 98.2 88 20 124/82 94 Nasal Cannula 01/27 2246 88 138/70 01/27 1600 96 Nasal 2.0L Cannula 01/27 1600 98.4 80 20 134/82 92 Nasal 2.0L Cannula Patient seen and examined at bedside. Discussed with patient the care plan. Discussed with offender job retention specialist Dr. Moyer the care plan. Patient is given a be discharged home today with oxygen. Patient will follow-up with cardiology packaging engineer and offender job retention specialist after discharge. Patient is in a be scheduled for sleep study by pulmonology.
[2017-01-28] MEDS ORDERED: ISOSORBIDE MONO60 M1 PO (15:45)
--- NOTE | 2017-01-28 15:55 | Discharge Summary ---
Visit Information Visit Dates Admission Date: 01/24/17 Discharge Date: 01/28/17 Hospital Course Course Attending Physician: ERWIN WHITLEY MD Primary Care Physician: LAKEISHA PAGE DO Other Care Providers: Language Asst Manuel Agrawal MD [employer] Inocencio Moyer MD Sodium Methylate Operator Trevor Lee MD Chief Psychology Tyrone Mclaughlin MD Consulting Request: 1 Consulting Specialty: Cardiology Consulting Physician: Jose Angel Zamudio MD Reason for Consult: CAD, chest pain Consulting Request: 2 Consulting Specialty: Nephrology Consulting Physician: Trevor Escamilla MD Reason for Consult: CKD Consulting Request: 3 Consulting Specialty: Pulmonary Disease Consulting Physician: Inocencio Moyer MD Reason for Consult: Dyspnea Hospital Course: Mr. Dodd is a 67 y/o M with PMHx of CAD with stent placement, T2DM c/b peripheral neuropathy and CKD stage 5 who presented with intermittent chest discomfort associated with shortness of breath x2 days. Of note, patient was seen in the ED three months prior to current presentation for chest pain, diagnosed with ACS and transferred to [facility] where cardiac catheterization showed multivessel CABG with subsequent placement of stents in his diagonal and ramus arteries. He developed SABRINA secondary to contrast received during catheterization , and required temporary peritoneal dialysis for 4 days until his renal function recovered. One week ago, an AV fistula was placed in his left arm for possible future dialysis. On initial presentation, vitals were temp 99.1, HR 109, BP 158/ 72 and SpO2 98% on 2 L NC. Labs were remarkable for BUN/Cr 42/4.3, calcium 6.6, proBNP 53193 and troponin 0.61. EKG showed sinus tachycardia without any ST-T wave abnormalities. CXR was significant for hilar vascular engorgement and mild interstitial edema. In the ED, patient was given nitroglycerin and aspirin with minimal relief in his symptoms, as well as 5 mg of IV metoprolol with improvement of his tachycardia and blood pressure. He was started on IV heparin and subsequently admitted for suspected ACS. Below are the issues that were addressed during current admission: #NSTEMI: Serial EKGs and troponins were followed. Troponins peaked to 0.84 on the second set but later trended down. Current presentation was felt to represent NSTEMI in the setting of chest pain with mild troponin elevation. After interdisciplinary discussions involving cardiology and nephrology, cardiac catheterization was held due to risk of worsening renal function and pharmacologic nuclear stress was not performed as it was unlikely to yield any useful information. Patient was continued on his outpatient aspirin, Brilinta and metoprolol. [id number] Imdur was held and patient was started on nitroglycerin patch. ECHO was performed which revealed focal hypokinesia of the distal septum and apical segments with LVEF of 50-55%. Lipid panel was checked which revealed low HDL of 34 but normal total cholesterol, LDL and triglycerides. Chest discomfort had resolved by day 2 of admission. IV heparin was discontinued on day 3 of admission. * Patient was instructed to follow up with esthetician/spa coordinator Dr. Trevor Lee on discharge. * Patient will continue prior to admission cardiac medications including metoprolol 100 mg PO daily, aspirin 81 mg PO daily, atorvastatin 80 mg PO daily, Brilinta 90 mg PO BID, amlodipine 10 mg PO daily and Imdur 60 mg PO daily on discharge. #Acute hypoxemic respiratory failure: Patient endorsed shortness of breath throughout current hospitalization and required mostly 2-3 L NC. He also had episodes of anxiety during which he became increasingly dyspneic and desaturated requiring 4 L NC. Repeat CXR was ordered on day 3 of admission, which showed central vascular prominence without overt edema. Patient's professor of literature Dr. Moyer was consulted who felt that patient's shortness of breath was initially likely secondary to fluid overload in view of elevated proBNP and initial CXR with mild interstitial edema. However during the latter part of the admission, his shortness of breath was most likely secondary to anxiety. Patient was started on Xanax with resolution of anxiety attacks and improvement of his shortness of breath. Patient's COPD, which had shown a restrictive pattern on pulmonary function testing with possible mild obstruction, was felt to be stable and he was started on Symbicort. Of note, patient had severe MILES for which he had chosen not to pursue therapy in view of financial difficulties. On day of discharge, patient was still oxygen-dependent with an SpO2 of 86% at rest and 87 % with ambulation on room air. * Patient was discharged home on home oxygen and occupational therapy. * Patient was instructed to follow up with his professor of literature Dr. Moyer on discharge. * Outpatient sleep study is planned for MILES. * Patient will continue Symbicort 160 over 4.5 g 2 puffs BID with rinsing of the mouth on discharge. * Albuterol rescue inhaler was added to discharge medications. * 15-tab supply of Xanax 0.5 mg PO BID PRN for anxiety was provided on discharge. * Patient was instructed to take tfya-sey-peptrey melatonin as needed for sleep. * Patient is enrolled in low-dose CT scan screening given his extensive smoking history with next CT scheduled in July 2017. #CKD stage 5: Patient was seen by nephrology who felt that patient would have further decline in his renal function and would likely need dialysis by a dialysis catheter if he received cardiac catheterization as the left AV fistula had not matured yet. Patient expressed his desire to hold off on cardiac catheterization to avoid the need for a temporary dialysis catheter. Although patient presented with mild volume overload, diuresis was held in view of renal insufficiency. Renal function and lytes were monitored daily and BUN/Cr remained relatively stable throughout hospitalization. PTH and vitamin D levels were checked: PTH was normal at 58.1 and 25-OH vitamin D was low at 18.7. Iron studies were checked and revealed low iron and TIBC but normal ferritin. * Patient was instructed to follow up with his marble installer after discharge. Allergies: Coded Allergies: morphine (Mild, LOOPY 01/18/17) hydromorphone (DEPRESSED RESPIRATIONS 01/18/17) Uncoded Allergies: CONTRAST DYE (CONTRAINDICATED 01/11/17) Disposition Summary Disposition Principal Diagnosis: NSTEMI Additional Diagnosis: Acute hypoxemic respiratory failure Chronic kidney disease stage 5 Discharge Disposition: home health services Discharge Instructions General Discharge Information Code Status: Full Code Patient's Diet: Diabetic, Heart Healthy Patient's Activity: Full Activity/No Limits Follow-Up Instructions/Appts: Please follow up with your primary care physician Dr. Lakeisha Page within one week of discharge. Please follow up with your esthetician/spa coordinator Dr. Trevor Lee for your heart within one week of discharge Please follow up with your marble installer Dr. Trevor Escamilla for your kidneys within two weeks of discharge. Please follow up with your professor of literature Dr. Inocencio Moyer for your lungs within two weeks of discharge. Please take all medications as prescribed. You can take mnyc-kqt-gyxabyf melatonin at bedtime as needed for sleep. Medications at Discharge Discharge Medications: Continue taking these medications: Insulin Glargine,Hum.rec.anlog (Lantus Solostar) 100 UNIT/1 ML INSULN.PEN 62 Units Inject into fatty tissue AT BEDTIME Qty = 15 Comments: Last Taken:01/28/17 Time:31U LEMIMIR 2XS DAILY Liraglutide (Victoza 3-Zeus) 0.6 MG/0.1 ML PEN.INJCTR 1.8 Milligram ORAL DAILY Qty = 9 Metoprolol Tartrate (Metoprolol Tartrate) 100 MG TABLET 1 Tablet ORAL DAILY Qty = 14 Comments: Last Taken:02/01/17 Time:8AM Clonidine HCl (Clonidine HCl) 0.1 MG TABLET 1 Tablet ORAL TWICE DAILY Qty = 60 Comments: Last Taken:02/01/17 Time:8AM Levothyroxine Sodium (Levothyroxine Sodium) 137 MCG TABLET 2 Tablet ORAL DAILY BEFORE BREAKFAST Qty = 28 Comments: Last Taken:02/01/17 Time:0700 Trazodone HCl (Trazodone HCl) 150 MG TABLET 1 Tablet ORAL Every night Qty = 35 Comments: Last Taken:01/31/17 Time:2200 Tamsulosin HCl (Tamsulosin HCl) 0.4 MG CAP.ER.24H 1 Capsule ORAL DAILY Qty = 30 Comments: Last Taken:02/01/17 Time:8AM Folic Acid (Folic Acid) 1 MG TABLET 1 Tablet ORAL DAILY Qty = 30 Comments: Last Taken:02/01/17 Time 8AM Aspirin (Ecotrin*) 81 MG TABLET.DR 1 Tablet ORAL DAILY Comments: Last Taken:02/01/17 Time 8AM Atorvastatin Calcium (Lipitor) 80 MG TABLET 1 Tablet ORAL DAILY Comments: Last Taken:02/01/17 Time: 4:30 PM Ticagrelor (Brilinta) 90 MG TABLET 1 Tablet ORAL TWICE DAILY Comments: Last Taken:02/01/17 Time:8AM Amlodipine Besylate (Norvasc) 10 MG TABLET 1 Tablet ORAL DAILY Comments: Last Taken:02/01/17 Time:8AM Sevelamer Carbonate (Renvela) 800 MG TABLET 2 Tablet ORAL THREE TIMES DAILY Comments: Last Taken:02/01/17 Time: 4:30 PM Isosorbide Mononitrate (Isosorbide Mononitrate ER) 60 MG TAB.ER.24H 1 Tablet ORAL DAILY Qty = 30 Comments: Last Taken:02/01/17 Time:8AM This prescription has been renewed Start taking the following new medications: Alprazolam (Xanax) 0.5 MG TABLET 1 Tablet ORAL TWICE DAILY as needed for ANXIETY Qty = 15 No Refills Comments: NOT GIVEN Budesonide/Formoterol Fumarate (Symbicort 160-4.5 Mcg Inhaler) 160 MCG-4.5 MCG/ ACTUATION HFA.AER.AD 2 Puff Inhale through mouth TWICE DAILY Qty = 1 No Refills Instructions: Rinse your mouth after using inhaler. Comments: Last Taken:02/01/17 Time:1000 Albuterol Sulfate (Proair Hfa) 90 MCG HFA.AER.AD 2 Puff Inhale through mouth EVERY 4-6 HOURS NEEDED as needed for SHORTNESS OF BREATH Qty = 1 No Refills Comments: Last Taken:01/28/17 Time:1000 Copies To: CYDNEY PAGE DO, MD,TYRONE Osborne; RL ELDRIDGE,Geo KELLY; TERESA ELDRIDGE,INOCENCIO Attending MD Review Statement Documenting Attending: GUTIERREZ ELDRIDGE,ERWIN Mandel Other Findings: please see my separate attending note for more details
== END 2017-01-28 15:56 | disposition home health service (06) | DRG 280 ==
LOC: ENRESERVTM → ENRESERVDT → ERH 00:49 → CRI 03:32 → ERHI 03:32 → 1NO 03:32 → CRI 09:29 → 1NO 01-25 18:46 → ENPENDDIS 01-28 15:38 → 1NO 01-28 15:56
PROVIDERS: Internal Medicine; Internal Medicine Cardiovascular Disease; Internal Medicine Infectious Disease; Ophthalmology; Pediatrics; ADMIT Student in an Organized Health Care Education/Training Program
DX: I21.4 Non-ST elevation (NSTEMI) myocardial infarction (principal); J96.01 Acute respiratory failure with hypoxia; N17.9 Acute kidney failure, unspecified; F50.00 Anorexia nervosa, unspecified; I12.0 Hypertensive chronic kidney disease with stage 5 chronic kidney disease or end stage renal disease; I50.32 Chronic diastolic (congestive) heart failure; N18.5 Chronic kidney disease, stage 5; J98.11 Atelectasis; E11.40 Type 2 diabetes mellitus with diabetic neuropathy, unspecified; E11.22 Type 2 diabetes mellitus with diabetic chronic kidney disease; J44.9 Chronic obstructive pulmonary disease, unspecified; E78.5 Hyperlipidemia, unspecified; E03.9 Hypothyroidism, unspecified; Z79.4 Long term (current) use of insulin; G47.33 Obstructive sleep apnea (adult) (pediatric); I25.10 Atherosclerotic heart disease of native coronary artery without angina pectoris; Z95.5 Presence of coronary angioplasty implant and graft; Z87.891 Personal history of nicotine dependence; Z85.850 Personal history of malignant neoplasm of thyroid; N40.0 Benign prostatic hyperplasia without lower urinary tract symptoms; Z99.2 Dependence on renal dialysis
CPT/HCPCS: 1NSP; CCU; 36415; 81001; 82436; 93005; 93010; 93306; 96374; 96375; 97116-GO; 97161-GP; 97530-GO; 99291; J1644; J3490

== ENCOUNTER 2017-01-31 03:26 | Observation (INO) | payer OTHER, MEDICARE ==
[~2017-01-31] VITALS: Ht 177.8 cm; Wt 103.1 kg
[~2017-01-31 03:26] MED LIST changes: +PROAIR HFA8.5 GM INH; +SYMBICORT 16010.2 GM INH; +XANAX0.5 M1 PO
--- NOTE | 2017-01-31 03:28 | ED DYSPNEA/ASTHMA COMPLAINT ---
History of Present Illness General Chief Complaint: Dyspnea (COPD, CHF, Other) Stated Complaint: BIBA SOB Source: patient, old records, EMS Exam Limitations: no limitations Vital Signs & Intake/Output Vital Signs & Intake/Output Vital Signs Date Time Temp Pulse Resp B/P B/P Pulse O2 O2 Flow FiO2 Mean Ox Delivery Rate 01/31 0341 97.9 90 22 144/75 96 Nasal 2.0L Cannula 01/31 0337 96 Nasal 2.0L Cannula Allergies Coded Allergies: morphine (Mild, LOOPY 01/18/17) hydromorphone (DEPRESSED RESPIRATIONS 01/18/17) Uncoded Allergies: CONTRAST DYE (CONTRAINDICATED 01/11/17) Reconcile Medications Albuterol Sulfate (Proair Hfa) 90 MCG HFA.AER.AD 2 PUF INH Q4-6 PRN PRN SHORTNESS OF BREATH Alprazolam (Xanax) 0.5 MG TABLET 1 TAB PO BID PRN ANXIETY Amlodipine Besylate (Norvasc) 10 MG TABLET 1 TAB PO DAILY HTN (Reported) Aspirin (Ecotrin*) 81 MG TABLET.DR 1 TAB PO DAILY CAD (Reported) Atorvastatin Calcium (Lipitor) 80 MG TABLET 1 TAB PO DAILY CHOLESTEROL ( Reported) Budesonide/Formoterol Fumarate (Symbicort 160-4.5 Mcg Inhaler) 160 MCG-4.5 MCG/ ACTUATION HFA.AER.AD 2 PUF INH BID COPD Rinse your mouth after using inhaler. Clonidine HCl 0.1 MG TABLET 1 TAB PO BID BP (Reported) Folic Acid 1 MG TABLET 1 TAB PO DAILY SUPPLEMENT (Reported) Insulin Glargine,Hum.rec.anlog (Lantus Solostar) 100 UNIT/1 ML INSULN.PEN 62 UNITS SC AT BEDTIME DIABETES (Reported) Isosorbide Mononitrate (Isosorbide Mononitrate ER) 60 MG TAB.ER.24H 1 TAB PO DAILY CAD Levothyroxine Sodium 137 MCG TABLET 2 TAB PO DAILY AC THYROID (Reported) Liraglutide (Victoza 3-Zeus) 0.6 MG/0.1 ML PEN.INJCTR 1.8 MG PO DAILY DIABETES (Reported) Metoprolol Tartrate 100 MG TABLET 1 TAB PO DAILY HEART (Reported) Sevelamer Carbonate (Renvela) 800 MG TABLET 2 TAB PO TID ESRD (Reported) Tamsulosin HCl 0.4 MG CAP.ER.24H 1 CAP PO DAILY PROSTATE (Reported) Ticagrelor (Brilinta) 90 MG TABLET 1 TAB PO BID CAD (Reported) Trazodone HCl 150 MG TABLET 1 TAB PO QPM SLEEP (Reported) Triage Nurses Notes Reviewed? yes Onset: Gradual Duration: day(s): Timing: recent history Severity: moderate Activities at Onset: none Prior Episodes/Possible Cause: frequent episodes Modifying Factors: Improves With: rest. Associated Symptoms: WEAKNESS, DYSPNEA, HYPOXIA HPI: 67 yo gentleman with stage iv esrd, chf, discharged 3 days ago, presents with 3 days of progressive shortness of breath, windedness. He notes that he increased his nasal cannula 02 from 2 to 4lpm. He is unable to lie flat. He has no fever, chills, wheezing, sputum, chest pain. 911 was called. They found him with an 02 sat of 86-88% on 4l nc. He was given an albuterol neb without much relief. He is otherwise well. Past History Travel History Traveled to [place] past 21 day No Medical History Any Pertinent Medical History? 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 No Review of Systems Review of Systems Constitutional: Reports: no symptoms. EENTM: Reports: no symptoms. Respiratory: Reports: no symptoms. Cardiovascular: Reports: no symptoms. GI: Reports: no symptoms. Genitourinary: Reports: no symptoms. Musculoskeletal: Reports: no symptoms. Skin: Reports: no symptoms. Neurological/Psychological: Reports: no symptoms. Hematologic/Endocrine: Reports: no symptoms. Immunologic/Allergic: Reports: no symptoms. All Other Systems: Reviewed and Negative Physical Exam Physical Exam General Appearance: well developed/nourished, mild distress Head: atraumatic, normal appearance Eyes: Bilateral: normal appearance. Ears, Nose, Throat: normal pharynx Neck: normal inspection Respiratory: diminished at bases, no wheeze Cardiovascular: regular rate/rhythm Gastrointestinal: normal bowel sounds, soft, non-tender, no organomegaly Extremities: normal inspection, normal capillary refill, normal range of motion, trace edema bilateral lower extremities Neurologic/Psych: no motor/sensory deficits, awake, alert, oriented x 3 Skin: intact, normal color, warm/dry Core Measures ACS in differential dx? Yes ASA ordered for poss ACS? Yes-ordered Severe Sepsis Present: No Septic Shock Present: No Progress Differential Diagnosis: chf, copd, vs other. Plan of Care: Orders Procedure Date/time Status Nothing by Mouth 01/31 B Active Saline Lock 01/[address] in observation 01/31 455 Active Misc Message 01/31 455 Active ED Holding Orders 01/31 455 Active Patient Data 01/31 455 Active Vital Signs 01/31 455 Active Code Status 01/31 455 Active TROPONIN LEVEL 01/31 329 Complete PARTIAL THROMBOPLASTIN TIME 01/31 329 Complete PROTHROMBIN TIME 01/31 032 Complete COMPREHENSIVE METABOLIC PANEL 01/31 032 Complete CBC WITHOUT DIFFERENTIAL 01/31 032 Complete B-TYPE NATRIURETIC PEP (BNP) 01/31 032 Complete EKG 01/31 329 Active Current Medications Sig/Julissa Start time Last Medication Dose Stop Time Status Admin Aspirin 325 MG ONCE ONE 01/31 0500 UNVr (Aspirin) 01/31 0501 Laboratory Tests 01/31/17 0356: Anion Gap 14, Estimated GFR 13 L, BUN/Creatinine Ratio 10.9, Glucose 112 H, Calcium 8.1 L, Total Bilirubin 0.5, AST 12 L, ALT 27, Alkaline Phosphatase 73, Troponin I 0.50 *H, [id number]-H-Xmkxvvjztrh Pept 25988 H, Total Protein 6.0 L, Albumin 3.3 L, Globulin 2.7, Albumin/Globulin Ratio 1.2, PT 11.3, INR 1.08, APTT 32, CBC w Diff NO MAN DIFF REQ, RBC 3.64 L, MCV 80.0, MCH 26.3 L, RDW 13.4, MPV 6.4 L, Gran % 53.8, Lymphocytes % 31.4, Monocytes % 11.0 H, Eosinophils % 3.3, Basophils % 0.5, Absolute Granulocytes 3.3, Absolute Lymphocytes 1.9, Absolute Monocytes 0.7 H, Absolute Eosinophils 0.2, Absolute Basophils 0, PUBS MCHC 32.9 L Diagnostic Imaging: Viewed by Me: Radiology Read. Discussed w/RAD: Radiology Read. CXR Impression: hypoexpanded, small effusions. Initial ED EKG: normal axis, normal intervals, normal p-waves, normal QRS complex, normal sinus rhythm Prior EKG: unchanged Comments: PATIENT: DEEPIKA BRANDT PRESENT AGE: 67 PATIENT ACCOUNT NO: [id number] : 52 LOCATION: [facility] ORDERING PHYSICIAN: ONI GARCIA MD SERVICE DATE: 01/31/17 EXAM TYPE: RAD - XRY-PORTABLE CHEST XRAY EXAMINATION: XR PORTABLE CHEST CLINICAL INFORMATION: Dyspnea. Hypoxia. COMPARISON: 01/26/2017 TECHNIQUE: Portable AP view of the chest was obtained. FINDINGS: Cervical fusion hardware present. Low lung volumes. Small bilateral pleural effusions with basilar airspace opacities. No pneumothorax. The cardiomediastinal silhouette is unchanged. No acute osseous abnormality. IMPRESSION: Hypoexpanded lungs. Small pleural effusions with basilar airspace opacities which favor atelectasis, although pneumonia not excluded. DICTATED BY: RICHARD SHEPHERD MD DATE/TIME DICTATED:01/31/17435 PLANNING RN:SAVANA DATE/TIME TRANSCRIBED:01/31/17435 CONFIDENTIAL, DO NOT COPY WITHOUT APPROPRIATE AUTHORIZATION. <Electronically signed in Other Vendor System> SIGNED BY: RICHARD SHEPHERD MD 01/31 044 Departure Departure Disposition: STILL A PATIENT Condition: Stable Clinical Impression Primary Impression: Volume overload Secondary Impressions: Elevated troponin, ESRD (end stage renal disease) Referrals: CARLITA PAGE DO (PCP/Family) Departure Forms: Customer Survey General Discharge Information Comments 01/31/17, 5:04am... discussed with dr. mesa (cards)... pt with +troponin, no ekg changes, no chest pain... pt stable for tele. Observation Note Spoke With: NURIS CORTEZ MD Physician Advisor Notified: TESFAYE MONSON DO Place Patient In: Non-ED OBS Care Area Rationale for Observation: My rational for observation is as follows . Pt with volume overload, likely due to esrd. pt hypoxic to 86-88% on his baseline 02. now doing better with repositioning and increased 02... pt merits cards consult for elevated troponin (trending upwards) as well as renal consult to consider initiating dialysis Critical Care Note Critical Care Note Critical Care Time: 30-74 min
--- NOTE | 2017-01-31 03:39 | NUR ---
67YO MALE TO RM 5 VIA AMB FROM HOME W/CO SOB ON AND OFF TUESDAY AND TONITE. PT NORMALLY ON 2L NASAL 02 AND INCREASED HIMSELF TO 4L TONITE W/OUT RELIEF. HX DC 2MONTHS AGO, NEW ONSET RENAL FAILURE W/NEW FISTULA L AC AREA. STTES "HE HAS NOT NEEDED DIALYSIS JUST YET" DENIES ANY PAIN. UPON ARRIVAL O2 SAT ON 2L = [address] GARCIA.
--- NOTE | 2017-01-31 04:00 | NUR ---
BLOOD DRAWN AND SENT TO LAB [facility]
[2017-01-31 04:07] LABS: ABSOLUTE BASOPHIL COUNT 0 /CUMM (0.0-0.2); ABSOLUTE EOSINOPHIL COUNT 0.2 /CUMM (0.0-0.7); ABSOLUTE GRANULOCYTE CT 3.3 /CUMM (1.4-6.5); ABSOLUTE LYMPH COUNT 1.9 /CUMM (1.2-3.4); ABSOLUTE MONOCYTE COUNT 0.7 /CUMM (0.10-0.60); BASOPHIL % 0.5 % (0.0-2.0); EOSINOPHIL % 3.3 % (0-5); GRANULOCYTE % 53.8 % (42.2-75.2); HEMATOCRIT 29.1 % (42-52); MEAN CORPUSCULAR HGB 26.3 PG (27.0-31.0); MEAN CORPUSCULAR HGB CONC 32.9 G/DL (33.0-37.0); MEAN PLATELET VOLUME 6.4 FL (7.4-10.4); PLATELET COUNT 330 /CUMM (130-400); RBC DISTRIBUTION WIDTH 13.4 % (11.5-14.5); RED BLOOD CELL CT 3.64 /CUMM (4.70-6.10); WHITE BLOOD CELL COUNT 6.1 /CUMM (4.8-10.8)
[2017-01-31 04:24] LABS: PT 11.3 SEC (9.4-12.5); PTT 32 SEC (25-37)
--- NOTE | 2017-01-31 04:30 | NUR ---
PORTABLE CHEST XRAY DONE,PT STILL ATTACHED TO MONITOR, AWAITING RESULT.
--- NOTE | 2017-01-31 04:41 | RADIOLOGY REPORT ---
EXAMINATION: XR PORTABLE CHEST CLINICAL INFORMATION: Dyspnea. Hypoxia. COMPARISON: 01/26/2017 TECHNIQUE: Portable AP view of the chest was obtained. FINDINGS: Cervical fusion hardware present. Low lung volumes. Small bilateral pleural effusions with basilar airspace opacities. No pneumothorax. The cardiomediastinal silhouette is unchanged. No acute osseous abnormality. IMPRESSION: Hypoexpanded lungs. Small pleural effusions with basilar airspace opacities which favor atelectasis, although pneumonia not excluded.
--- NOTE | 2017-01-31 04:48 | NUR ---
CRITICAL TEST RESULTS [id number] DEEPIKA BRANDT 67 M TESTS AND RESULTS: TROP = 0.50 Results received and read back by: JIA MONTIEL Results received date and time: 01/31/17 0449 The following provider was notified of the results, and read the results back: DR GARCIA Notified date and time: 01/31/17 at 0442
--- NOTE | 2017-01-31 05:10 | History & Physical ---
LUKE ELDRIDGE,DAILY 01/31/17 0501: General Information and HPI MD Statement: I have seen and personally examined DEEPIKA BRANDT and documented this H&P. The patient is a 67 year old M who presented with a patient stated chief complaint of []. Source of Information: patient, family, old records Exam Limitations: no limitations History of Present Illness: Patient is a 67-year-old male with significant past medical history of chronic back pain , cervical spine surgery(2013), hypertension, hyperlipidemia, hypothyroidism, type 2 diabetes mellitus, diabetic neuropathy, end-stage renal disease, AVF in left arm ( 01/17/2017, not used for dialysis), coronary artery disease, RCA 100%,distal LAD 80% s/p 6 stent, last stent placement was done 2 months ago, BIBA from home with complaints of shortness of breath He was discharged on 2 liters of oxygen by nasal cannula. According to the patient he was doing well for the last 2 days, he started having shortness of breath, especially on lying in evening. Because of the shortness of breath he increased oxygen to 4 liter without any relief, creatinine to [facility]. He also claims that he is having cough and bringing up yellowish-green sputum. It first started when he was in the hospital but not bothering him. Denies -fever, chills, dizziness, chest pain, nausea, vomiting, abdominal pain, constipation, diarrhea, bilateral lower leg swelling. Allergies -morphine, hydromorphine Family history -mother - heart disease Personal [id number]-[id number]-du quit 4 years ago after smoking for about 40 years, alcohol-quit 30 years ago. Allergies/Medications Allergies: Coded Allergies: morphine (Mild, LOOPY 01/18/17) hydromorphone (DEPRESSED RESPIRATIONS 01/18/17) Uncoded Allergies: CONTRAST DYE (CONTRAINDICATED 01/11/17) Past History Travel History Traveled to [place] past 21 day No Medical History Neurological: NONE EENT: NONE Cardiovascular: CAD, hypertension, 6 CARDIAC STENTS Respiratory: COPD Gastrointestinal: constipation Hepatic: NONE Renal: chronic kidney disease, L ARM AVF PLACED 01/17/17 Musculoskeletal: chronic back pain, ?BACK PROBLEM REQUIRE SX Psychiatric: NONE Endocrine: diabetes Blood Disorders: NONE Cancer(s): THYROID CA CAFE LEAD/Reproductive: NONE History of MRSA: No History of VRE: No History of CDIFF: No Influenza Vaccine: 07/10/16 Surgical History Surgical History: CARDIAC STENTS X 6 THYROIDECTOMY LEFT LEG FX REPAIR ELBOW FX REPAIR SPINAL FUSION C4-C5 Past Family/Social History Family History Relations & Conditions if any FATHER FH: heart disease Psychosocial History Services at Home: None Review of Systems Review of Systems Constitutional: Denies: chills, diaphoresis, fever, malaise, weakness. Cardiovascular: Reports: orthopena, peripheral edema. Denies: chest pain, edema, palpitations, syncope. Respiratory: Reports: cough, orthopnea, short of breath, sputum production. Denies: hemoptysis, stridor, wheezing. GI: Denies: abdominal pain, bloating, constipation, diarrhea, distention, bowel incontinence, nausea, vomiting. Genitourinary: Denies: no symptoms. Musculoskeletal: Denies: no symptoms. Skin: Denies: no symptoms. Neurological/Psychological: Denies: no symptoms. Exam & Diagnostic Data Last 24 Hrs of Vital Signs/I&O Vital Signs Date Time Temp Pulse Resp B/P B/P Pulse O2 O2 Flow FiO2 Mean Ox Delivery Rate 01/31 0511 92 20 95 Nasal 2.0L Cannula 01/31 0341 97.9 90 22 144/75 96 Nasal 2.0L Cannula 01/31 0337 96 Nasal 2.0L Cannula Intake & Output 01/31 0800 01/31 0000 01/30 1600 Intake Total Output Total 370 Balance -370 Output, Urine 370 Patient 107.048 kg Weight Physical Exam General Appearance Alert, Oriented X3, Cooperative, No Acute Distress HEENT Atraumatic, PERRLA, EOMI Neck Supple, No JVD, No thryomegaly Cardiovascular Normal S1, Normal S2 Lungs Normal Air Movement, mild left basal crackles Abdomen Soft, No Tenderness Neurological Normal Speech Extremities No Clubbing, No Cyanosis, mild pitting edema Vascular Normal Pulses, Pulses Symmetrical Last 24 Hrs of Labs/Angus: Laboratory Tests 01/31/17 0356: Anion Gap 14, Estimated GFR 13 L, BUN/Creatinine Ratio 10.9, Glucose 112 H, Calcium 8.1 L, Total Bilirubin 0.5, AST 12 L, ALT 27, Alkaline Phosphatase 73, Troponin I 0.50 *H, Upy-U-Iqrhevtrytb Pept 38228 H, Total Protein 6.0 L, Albumin 3.3 L, Globulin 2.7, Albumin/Globulin Ratio 1.2, TSH 0.031 L, Free T4 1.86, PT 11.3, INR 1.08, APTT 32, CBC w Diff NO MAN DIFF REQ, RBC 3.64 L, MCV 80.0, MCH 26.3 L, RDW 13.4, MPV 6.4 L, Gran % 53.8, Lymphocytes % 31.4, Monocytes % 11.0 H, Eosinophils % 3.3, Basophils % 0.5, Absolute Granulocytes 3.3, Absolute Lymphocytes 1.9, Absolute Monocytes 0.7 H, Absolute Eosinophils 0.2, Absolute Basophils 0, PUBS MCHC 32.9 L Microbiology 01/31 549 URINE ROUT: Legionella Antigen - ORD 01/31 549 URINE ROUT: Streptococcus pneumoniae Antigen (M - ORD 01/31 538 LOWER RESP: Respiratory Culture - ORD 01/31 538 LOWER RESP: Gram Stain - ORD Diagnostic Data EKG Results Heart rate 89, NJ 180, QTC 487, QRS complex in V1, V2, V3 CXR Results Small bilateral pleural effusions with basilar airspace opacities. Assessment/Plan Assessment: Patient is a 67-year-old male with significant past medical history of chronic back pain , cervical spine surgery(2013), hypertension, hyperlipidemia, hypothyroidism, type 2 diabetes mellitus, diabetic neuropathy, end-stage renal disease, AVF in left arm ( 01/17/2017, not used for dialysis), coronary artery disease, RCA 100%,distal LAD 80% s/p 6 stent, last stent placement was done 2 months ago, presented with history of BIBA from home with complaints of shortness of breath Vital signs at time of temperature 97.9, pulse 90, respiratory rate 22, blood pressure 140/75, SPO2 96% on 2 liters of nasal cannula Pertinent labs -hemoglobin 9.6, hematocrit 29.1, MCV 80,K-5.3, BUN /creatinine- 51/4.7, proBNP-[id number], troponin 0.55 Chest x-ray -Small bilateral pleural effusions with basilar airspace opacities. Echocardiogram 12/31/2015 LVEF 55-60%, mild to moderate aortic sclerosis and calcification, and TSH. Mild inferoposterior hypokinesia, Mild diastolic dysfunction Dipyridamole stress with nuclear imaging-no EKG evidence of stress-induced CO Echocardiogram 01/24/2017 LVEF-50-55%,Left ventricular diastolic dysfunction Pulmonary function test 01/01/16 -restrictive ventilatory defect Plan - Shortness of breath, under evaluation troponins positive ruling out acute coronary syndrome , probably pulmonary hypertension * We will admit the patient to telemetry for observation * We'll continue tab aspirin, isosorbide mononitrate * We'll do serial the EKG/troponin. * We will follow cardiology recommendations * Patient was also complaining of the cough and bringing up some sputum, will get a sputum culture. Patient started having fever, then we will treat with antibiotic. * Is noncompliant with the CPAP and was advised to have sleep study as an outpatient. We will place pulmonary consult for further evaluation and management Hypertension * We will continue amlodipine, clonidine Hyperlipidemia * We will continue tablet atorvastatin Hypothyroidism * We'll continue levothyroxine Type 2 diabetes mellitus, * We will check the blood sugar TID/HS * Was given all of according to the sliding scale * Patient already had Lantus 62 U, we will start him on Levemir 31U BID CKD * Patient is having history of diabetes and also in the past he had contrast- induced nephropathy. * BUN /creatinine-51/4.7 * Patient recently had a fistula, 2 week ago for possible dialysis in future * We will regularly follow creatinine * If needed, then we will place a consult for stationary engineer supervisor Diet -renal dialysis diet DVT prophylaxis-ALP S CODE STATUS-full code As Ranked By This Provider Problem List: 1. Shortness of breath 2. ESRD (end stage renal disease) 3. CAD (coronary artery disease) Core Measures/Miscellaneous Acute Coronary Syndrome ACS Diagnosis: No Cerebrovascular Accident CVA/TIA Diagnosis: No Congestive Heart Failure CHF Diagnosis: No Venous Thromboembolism VTE Risk Factors: Age > 40, Obesity No [facility] VTE prophylaxis d/t: No contraindications No VTE Pharm Prophylaxis d/t: No contraindications VTE Diagnosis: No VTE Type: NONE VTE Confirmed by (Test): NONE Severe Sepsis Severe Sepsis Present: No Septic Shock Septic Shock Present: No Miscellaneous Documentation Attending Case Discussed With: NURIS CORTEZ MD Primary Care Physician: CARLITA PAGE DO Patient sees these Specialists Non Emergency Services Ambulance Driver-Dr. Lee Aircraft Avionics Technician Director [employer]-Dr. Moyer Level of Patient Care: Telemetry JESUS GREY 01/31/17 0514: Resident Review Statement Resident Statement: examined this patient, discussed with architecture intern, agreed with architecture intern, discussed with family, reviewed EMR data (avail), discussed with nursing , discussed with case mgmt, reviewed images, amended to note Other Findings: 67-year-old male with a past medical history of coronary artery disease status post stents and diagonal and rami, AK I secondary to contrast received during cath status post temporary peritoneal dialysis for 4 days, MILES, type 2 diabetes complicated by peripheral neuropathy, CKD stage IV who was recently discharged from the hospital on 01/28/2017 when he was admitted for CHF exacerbation presents to the ER with complaints of shortness of breath. According to the patient he was artur tomas on Tuesday01/28/17,a nd thought that he was doing better as he was able to lie flat in the bed without getting SOB. However, Tuesday inti Tuesday, his symptoms progressively worsened and he had to go up on his O2 requirements from 2.0 liters to 4.0 liters. Deneis fever, chills, worsening lower extremity swelling, non-complinace with meds, abdominal pain, nausea, vomiting, diarrhea, but does endorse purulent productive phlegm, and generalized wekaness with worsening shortness of breath. Rest of the history please refer to Dr. Chen's note above. . Vitals on admission blood pressure 144/75, respiratory rate 22, pulse 90, afebrile saturating 96% on 2 L of oxygen via nasal cannula. On physical exam he is alert, lethargic. HEENT revealed PERRLA, moist mucous membranes. Examination of the neck did not reveal an elevated JVD. Cardiovascular exam pertinent for normal S1, S2, no murmurs rubs or gallops appreciated. Chest was clear to auscultation bilaterally with no crackles or rhonchi appreciated. Abdominal exam was benign abdomen soft, nontender, nondistended normal bowel sounds in all 4 quadrants. Examination of the extremities revealed trace edema bilaterally. Neuro exam was grossly unremarkable. Labs pertinent for H&H of 9.6/29.1, normal MCV of 80.0, platelet count of 330, 000. Serum chemistries revealed a sodium of 140, particularly male with a potassium of 5.3, bicarbonate 24, anion gap of 14, BUN/creatinine 51 with a creatinine of 4.7. Serum glucose elevated to 112. LFTs unremarkable with an AST/ALT of 12/27 alkaline phosphatase of 73 with first set of troponin elevated 0.50 and a proBNP elevated to 12,200. INR was 1.08. Chest x-ray revealed hypoexpanded lungs, small pleural effusions with bibasilar airspace opacities consistent with atelectasis although pneumonia cannot be excluded. In the ED he received aspirin 325 mg orally 1. Last echocardiogram was done on 01/24/2017 which revealed mild aortic sclerosis with no valvular stenosis or insufficiency, mitral leaflet thickening with moderate mitral insufficiency and left atrial enlargement, no significant pericardial fluid, focal hypokinesia of the distal septum and apical segments with an EF of 50-55%. EKG: NSR, HR: 89, poor R wave progression, normal axis, no ST-T chanegs. - Assessment and plan Place patient on Telemetry under observation #Acute on chronic hyopxemic respiratory failure 2/2 CHF exacerbation vs HCAP given he was recentky discharged from hospital (has productiev purulent cugh, but no fever, leukocytosis) LRC and urinary antigen for strep PNA and Legionella. Castañeda off ABx for now, unless he spikes a temp. Continue to titrate oxygen to maintain O2 sats > 92%. #SABRINA on CKD stage - Cr : 4.7, previous admission was 4.2 - Most likely pre-renal. - Consider Nephro consult in AM - Avoid nephrotoxic agents. - Of note patient has an AV fistula on his left arm about two weeks ago. As per Nephro notes this past admission #Anemia - 2/2 anemia of chronic disease, insetting of renal failure, may require Epogen in future. # Elevated troponins - 2/2 Stage 4 CKD - Trend trops and EKG @ 12:00 4:00 PM Castañeda off heparin for now given no evidence of chest discomfort or EKG changes Cardiology consult with Dr. Lee in a.m. Patient recently had an echocardiogram that showed focal hypokinesia of the distal septum and apical segments with an EF of 50-55% #Coronary artery disease status post stent placement Continue on aspirin, Brillenta 90 mg twice a day, Lipitor 80 mg daily, isosorbide 60 mg daily, metoprolol 100 mg daily Treatment of coronary artery disease risk was consulted for now given worsening renal function with invasive testing # MILES noncompliant with using CPAP at home Patient was scheduled to follow-up with Dr. Moyer as an outpatient for sleep study For now continue on Symbicort 160 over 4.5 g 2 puffs twice a day #BPH Continue on Flomax 0.4 mg daily #Anxiety Continue trazodone 150 g at bedtime #Hypothyroidism Continue on levothyroxine 0.274 mg #Hypertension Continue on amlodipine 10 mg daily, clonidine 0.1 mg twice a day by mouth #Insulin-dependent diabetes mellitus Patient is on Lantus 62 units at bedtime and on the toes on Continue to hold these medications and start him on Levemir 31 units twice a day and NovoLog sliding scale every 6 hours and sees currently nothing by mouth - DVT prophylaxis Heparin 5000IU TID SC Diet Consistent carb 2 CODE STATUS Full code MARYLOU WHITLEYANTOINETTE 02/10/17 6060: General Information and HPI Allergies/Medications Home Med list Albuterol Sulfate (Proair Hfa) 90 MCG HFA.AER.AD 2 PUF INH Q4-6 PRN PRN SHORTNESS OF BREATH Alprazolam (Xanax) 0.5 MG TABLET 1 TAB PO BID PRN ANXIETY Amlodipine Besylate (Norvasc) 10 MG TABLET 1 TAB PO DAILY HTN (Reported) Aspirin (Ecotrin*) 81 MG TABLET.DR 1 TAB PO DAILY CAD (Reported) Atorvastatin Calcium (Lipitor) 80 MG TABLET 1 TAB PO DAILY CHOLESTEROL ( Reported) Budesonide/Formoterol Fumarate (Symbicort 160-4.5 Mcg Inhaler) 160 MCG-4.5 MCG/ ACTUATION HFA.AER.AD 2 PUF INH BID COPD Rinse your mouth after using inhaler. Clonidine HCl 0.1 MG TABLET 1 TAB PO BID BP (Reported) Folic Acid 1 MG TABLET 1 TAB PO DAILY SUPPLEMENT (Reported) Insulin Glargine,Hum.rec.anlog (Lantus Solostar) 100 UNIT/1 ML INSULN.PEN 62 UNITS SC AT BEDTIME DIABETES (Reported) Isosorbide Mononitrate (Isosorbide Mononitrate ER) 60 MG TAB.ER.24H 1 TAB PO DAILY CAD Levothyroxine Sodium (Synthroid) 200 MCG TABLET 0.2 MG PO DAILY AC THYROID Levothyroxine Sodium (Synthroid) 25 MCG TABLET 0.025 MG PO DAILY AC THYROID Liraglutide (Victoza 3-Zeus) 0.6 MG/0.1 ML PEN.INJCTR 1.8 MG PO DAILY DIABETES (Reported) Metoprolol Tartrate 100 MG TABLET 1 TAB PO DAILY HEART (Reported) Ramelteon (Rozerem) 8 MG TABLET 1 TAB PO AT BEDTIME SLEEP HELP Sertraline HCl (Zoloft) 50 MG TABLET 1 TAB PO DAILY ANXIETY Take 1/2 tab tomorrow (02/02), followed by 1 tab daily (02/03-) Sevelamer Carbonate (Renvela) 800 MG TABLET 2 TAB PO TID ESRD (Reported) Tamsulosin HCl 0.4 MG CAP.ER.24H 1 CAP PO DAILY PROSTATE (Reported) Ticagrelor (Brilinta) 90 MG TABLET 1 TAB PO BID CAD (Reported) Trazodone HCl 150 MG TABLET 1 TAB PO QPM SLEEP (Reported) Attending MD Review Statement Attending Statement Attending MD Statement: examined this patient, discuss w/resident/PA/AGRICULTURAL PRODUCE SORTER, agreed w/resident/PA/AGRICULTURAL PRODUCE SORTER, discussed with family, reviewed EMR data (avail), discussed with nursing Attending Assessment/Plan: please see my separate attending note for more details
--- NOTE | 2017-01-31 05:11 | NUR ---
ASA GIVEN PO DENIES ANY CP AT THIS TIME. 02 SAT ON 2L = 95
--- NOTE | 2017-01-31 05:40 | NUR ---
HOUSE STAFF HERE TO EVAL AND ENTER TELE ORDERS.
--- NOTE | 2017-01-31 06:26 | NUR ---
SPOKE W/ MD GARCIA AND MD STOVALL, PATIENT TO REMAIN TELE OBS, NOT TELE FULL ADMIT.
--- NOTE | 2017-01-31 07:18 | Event Note ---
Event Note Event Note: Update (01/31/17): - Patient's second set of troponins came back at 0.51, slightly increased from 0.50 on the first set. Patient continued to deny chest discomfort. Repeat EKG showed no ST-T abnormalities. Mild troponin elevation was was likely demand ischemia in the setting of CKD. - Patient was started on Lasix 40 mg IV x 1 followed by Lasix 40 mg PO daily with close monitoring of I/Os and daily BMPs by nephrology recommendations for mild fluid overload secondary to his CKD and acute on chronic diastolic CHF. Cardiology was in agreement. - Psychiatry consult was obtained for anxiety which was felt to be contributing to shortness of breath. Patient was started on Zoloft 25 mg PO daily with plans to increase to 50 mg PO daily after 3 days if patient tolerates medication as well as Rozerem 8 mg daily at bedtime for sleep. Xanax 0.25 mg PO TID PRN was continued.
--- NOTE | 2017-01-31 08:42 | NUR ---
BLOOD SUGAR CHECKED, 82. NO INSULINE GIVEN PSS. ON C2 DIET, JUST DELIVERED. PT EATING AND PLEASE.
--- NOTE | 2017-01-31 09:35 | NUR ---
MORNING MEDS GIVE, NO PROBLEMS SWALLOWING THEM AT ALL.
--- NOTE | 2017-01-31 10:45 | NUR ---
CRITICAL TEST RESULTS [id number] DEEPIKA BRANDT 67 M TESTS AND RESULTS: TROP 00.51 Results received and read back by: JULIA CUEVAS Results received date and time: 01/31/17 1808 The following provider was notified of the results, and read the results back: DR. MOSLEY Notified date and time: 01/31/17 at 1042
--- NOTE | 2017-01-31 11:22 | PN- Nephrology ---
Assessment/Plan Assessment: Renal function near recent baseline. CXR with some pleural fluid and mild edema on exam Suggestion: Would give pt dose of 40 mg of IV lasix today and start on 40 mg po daily. Watch BUN/cr which may increase with diuresis. Subjective Subjective: Patient just discharged so won't repeat consult. Readmitted with some SOB, anxiety. He has not been on lasix but noted some pedal swelling. Objective Vital Signs and I&Os Vital Signs Date Time Temp Pulse Resp B/P B/P Pulse O2 O2 Flow FiO2 Mean Ox Delivery Rate 01/31 1102 98.0 72 20 135/77 01/31 0934 84 152/78 01/31 0934 84 152/78 01/31 0934 84 152/78 01/31 0933 84 152/78 01/31 0933 84 152/78 01/31 0812 98.0 84 22 152/78 01/31 0643 96.1 96 20 156/74 93 Nasal 2.0L Cannula 01/31 0511 92 20 95 Nasal 2.0L Cannula 01/31 0341 97.9 90 22 144/75 96 Nasal 2.0L Cannula 01/31 0337 96 Nasal 2.0L Cannula Intake & Output 01/31 1600 01/31 0400 01/30 1600 01/30 0400 01/29 1600 01/29 0400 Intake Total Output Total 1120 Balance -1120 Output, Urine 1120 Patient 236 lb Weight Physical Exam: NAD VS as above Lungs: clear CV: no rub Abd: nontender Exts: 1+ ankle edema Neuro: A&O Current Medications: Current Medications Sig/Julissa Start time Last Medication Dose Route Stop Time Status Admin Acetaminophen 650 MG Q6P PRN 01/31 0530 AC PO Acetaminophen 1,000 MG Q6P PRN 01/31 0530 AC IV Alprazolam 0.25 MG TID PRN 01/31 0545 AC PO 02/07 0544 Amlodipine Besylate 10 MG DAILY 01/31 1000 AC 01/31 PO 0934 Aspirin 0 .STK-MED ONE 01/31 0510 DC PO Aspirin 325 MG ONCE ONE 01/31 0500 DC 01/31 PO 01/31 0501 0511 Aspirin Buffered 81 MG DAILY 01/31 1000 AC 01/31 PO 0933 Atorvastatin Calcium 80 MG 1700 01/31 1700 AC PO Budesonide/ 2 PUF BID 01/31 1000 AC 01/31 Formoterol Fumarate INH 0934 Budesonide/ 2 PUF BID 01/31 1000 CAN Formoterol Fumarate INH Clonidine 0.1 MG BID 01/31 1000 AC 01/31 PO 0933 Folic Acid 1 MG DAILY 01/31 1000 AC 01/31 PO 0934 Heparin Sodium 0 .STK-MED ONE 01/31 0645 DC (Porcine) .ROUTE Heparin Sodium 5,000 UNIT Q8 01/31 0600 AC 01/31 (Porcine) SC 0645 Insulin Aspart 0 TIDAC 01/31 0800 AC SC Insulin Detemir 31 UNITS BID 01/31 2200 AC SC Isosorbide 60 MG DAILY 01/31 1000 AC 01/31 Mononitrate PO 0933 Levothyroxine Sodium 0.274 MG DAILY AC 01/31 0700 AC 01/31 PO 0646 Metoprolol Tartrate 100 MG DAILY 01/31 1000 AC 01/31 PO 0934 Morphine Sulfate 2 MG Q4P PRN 01/31 0530 DC IV Sevelamer Carbonate 1,600 MG TID 01/31 1000 AC 01/31 PO 0934 Tamsulosin HCl 0.4 MG DAILY 01/31 1000 AC 01/31 PO 0934 Ticagrelor 90 MG BID 01/31 1000 AC 01/31 PO 0933 Trazodone HCl 150 MG QPM 01/31 2200 AC PO Results Pertinent Lab Results: Laboratory Tests 01/31 01/31 1006 0356 Chemistry Sodium (137 - 145 mmol/L) 140 Potassium (3.5 - 5.1 mmol/L) 5.3 H Chloride (98 - 107 mmol/L) 102 Carbon Dioxide (22 - 30 mmol/L) 24 Anion Gap (5 - 16) 14 BUN (9 - 20 mg/dL) 51 H Creatinine (0.7 - 1.2 mg/dL) 4.7 H Estimated GFR (>60 ml/min) 13 L BUN/Creatinine Ratio (7 - 25 %) 10.9 Glucose (65 - 99 mg/dL) 112 H Calcium (8.4 - 10.2 mg/dL) 8.1 L Total Bilirubin (0.2 - 1.3 mg/dL) 0.5 AST (17 - 59 U/L) 12 L ALT (21 - 72 U/L) 27 Alkaline Phosphatase (< 127 U/L) 73 Troponin I (<0.11 ng/ml) 0.51 *H 0.50 *H Zev-C-Bcsugbwyjjs Pept (<125 pg/mL) 20508 H Total Protein (6.3 - 8.2 g/dL) 6.0 L Albumin (3.5 - 5.0 g/dL) 3.3 L Globulin (1.9 - 4.2 gm/dL) 2.7 Albumin/Globulin Ratio (1.1 - 2.2 %) 1.2 TSH (0.270 - 4.200 uIU/mL) 0.031 L Free T4 (0.78 - 2.44 ng/dL) 1.86 Coagulation PT (9.4 - 12.5 SEC) 11.3 INR (0.90 - 1.17) 1.08 APTT (25 - 37 SEC) 32 Hematology CBC w Diff NO MAN DIFF REQ WBC (4.8 - 10.8 /CUMM) 6.1 RBC (4.70 - 6.10 /CUMM) 3.64 L Hgb (14.0 - 18.0 G/DL) 9.6 L Hct (42 - 52 %) 29.1 L MCV (80.0 - 94.0 FL) 80.0 MCH (27.0 - 31.0 PG) 26.3 L RDW (11.5 - 14.5 %) 13.4 Plt Count (130 - 400 /CUMM) 330 MPV (7.4 - 10.4 FL) 6.4 L Gran % (42.2 - 75.2 %) 53.8 Lymphocytes % (20.5 - 51.1 %) 31.4 Monocytes % (1.7 - 9.3 %) 11.0 H Eosinophils % (0 - 5 %) 3.3 Basophils % (0.0 - 2.0 %) 0.5 Absolute Granulocytes (1.4 - 6.5 /CUMM) 3.3 Absolute Lymphocytes (1.2 - 3.4 /CUMM) 1.9 Absolute Monocytes (0.10 - 0.60 /CUMM) 0.7 H Absolute Eosinophils (0.0 - 0.7 /CUMM) 0.2 Absolute Basophils (0.0 - 0.2 /CUMM) 0 PUBS MCHC (33.0 - 37.0 G/DL) 32.9 L
--- NOTE | 2017-01-31 11:47 | NUR ---
BED 187
--- NOTE | 2017-01-31 11:53 | Cons- Cardiology ---
General Information and HPI Consulting Request Date of Consult: 01/31/17 Requested By: ERWIN WHITLEY MD Reason for Consult: Congestive heart failure History of Present Illness: The patient is a 67-year-old male with history of hypertension, diabetes mellitus, coronary artery disease, and chronic kidney disease who is followed in the office by Dr. Lee. He is status post placement of an AV fistula 2 weeks ago in preparation for possible future dialysis. He was recently admitted with chest discomfort and mild troponin elevation. He was managed conservatively because of his significant chronic kidney disease, and because his dialysis catheters not yet functional. Discharge to home 3 days ago. Over the next few days he developed runs of breath and orthopnea. His oxygen requirement increased to 4 L without relief. He has not had recent chest pain. He complains of cough with yellowish-green sputum. No syncope. No palpitations. No diaphoresis. No nausea or vomiting. Allergies/Medications Allergies: Coded Allergies: morphine (Mild, LOOPY 01/18/17) hydromorphone (DEPRESSED RESPIRATIONS 01/18/17) Uncoded Allergies: CONTRAST DYE (CONTRAINDICATED 01/11/17) Home Med List: Albuterol Sulfate (Proair Hfa) 90 MCG HFA.AER.AD 2 PUF INH Q4-6 PRN PRN SHORTNESS OF BREATH Alprazolam (Xanax) 0.5 MG TABLET 1 TAB PO BID PRN ANXIETY Amlodipine Besylate (Norvasc) 10 MG TABLET 1 TAB PO DAILY HTN (Reported) Aspirin (Ecotrin*) 81 MG TABLET.DR 1 TAB PO DAILY CAD (Reported) Atorvastatin Calcium (Lipitor) 80 MG TABLET 1 TAB PO DAILY CHOLESTEROL ( Reported) Budesonide/Formoterol Fumarate (Symbicort 160-4.5 Mcg Inhaler) 160 MCG-4.5 MCG/ ACTUATION HFA.AER.AD 2 PUF INH BID COPD Rinse your mouth after using inhaler. Clonidine HCl 0.1 MG TABLET 1 TAB PO BID BP (Reported) Folic Acid 1 MG TABLET 1 TAB PO DAILY SUPPLEMENT (Reported) Insulin Glargine,Hum.rec.anlog (Lantus Solostar) 100 UNIT/1 ML INSULN.PEN 62 UNITS SC AT BEDTIME DIABETES (Reported) Isosorbide Mononitrate (Isosorbide Mononitrate ER) 60 MG TAB.ER.24H 1 TAB PO DAILY CAD Levothyroxine Sodium 137 MCG TABLET 2 TAB PO DAILY AC THYROID (Reported) Liraglutide (Victoza 3-Zeus) 0.6 MG/0.1 ML PEN.INJCTR 1.8 MG PO DAILY DIABETES (Reported) Metoprolol Tartrate 100 MG TABLET 1 TAB PO DAILY HEART (Reported) Sevelamer Carbonate (Renvela) 800 MG TABLET 2 TAB PO TID ESRD (Reported) Tamsulosin HCl 0.4 MG CAP.ER.24H 1 CAP PO DAILY PROSTATE (Reported) Ticagrelor (Brilinta) 90 MG TABLET 1 TAB PO BID CAD (Reported) Trazodone HCl 150 MG TABLET 1 TAB PO QPM SLEEP (Reported) Current Medications: Current Medications Sig/Julissa Start time Last Medication Dose Route Stop Time Status Admin Acetaminophen 650 MG Q6P PRN 01/31 0530 AC PO Acetaminophen 1,000 MG Q6P PRN 01/31 0530 AC IV Alprazolam 0.25 MG TID PRN 01/31 0545 AC PO 02/07 0544 Amlodipine Besylate 10 MG DAILY 01/31 1000 AC 01/31 PO 0934 Aspirin 0 .STK-MED ONE 01/31 0510 DC PO Aspirin 325 MG ONCE ONE 01/31 0500 DC 01/31 PO 01/31 0501 0511 Aspirin Buffered 81 MG DAILY 01/31 1000 AC 01/31 PO 0933 Atorvastatin Calcium 80 MG 1700 01/31 1700 AC PO Budesonide/ 2 PUF BID 01/31 1000 AC 01/31 Formoterol Fumarate INH 0934 Budesonide/ 2 PUF BID 01/31 1000 CAN Formoterol Fumarate INH Clonidine 0.1 MG BID 01/31 1000 AC 01/31 PO 0933 Folic Acid 1 MG DAILY 01/31 1000 AC 01/31 PO 0934 Heparin Sodium 0 .STK-MED ONE 01/31 0645 DC (Porcine) .ROUTE Heparin Sodium 5,000 UNIT Q8 01/31 0600 AC 01/31 (Porcine) SC 0645 Insulin Aspart 0 TIDAC 01/31 0800 AC SC Insulin Detemir 31 UNITS BID 01/31 2200 AC SC Isosorbide 60 MG DAILY 01/31 1000 AC 01/31 Mononitrate PO 0933 Levothyroxine Sodium 0.274 MG DAILY AC 01/31 0700 AC 01/31 PO 0646 Metoprolol Tartrate 100 MG DAILY 01/31 1000 AC 01/31 PO 0934 Morphine Sulfate 2 MG Q4P PRN 01/31 0530 DC IV Sevelamer Carbonate 1,600 MG TID 01/31 1000 AC 01/31 PO 0934 Tamsulosin HCl 0.4 MG DAILY 01/31 1000 AC 01/31 PO 0934 Ticagrelor 90 MG BID 01/31 1000 AC 01/31 PO 0933 Trazodone HCl 150 MG QPM 01/31 2200 AC PO Review of Systems Review of Systems: No fever. No chills. All other systems were reviewed, and were noted to be negative. 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: NONE Surgical History Surgical History: CARDIAC STENTS X 6 THYROIDECTOMY LEFT LEG FX REPAIR ELBOW FX REPAIR SPINAL FUSION C4-C5 Family History Relations & Conditions If Any: FATHER FH: heart disease Psychosocial History Services at Home: None Exam & Diagnostic Data Vital Signs and I&O Vital Signs Date Time Temp Pulse Resp B/P B/P Pulse O2 O2 Flow FiO2 Mean Ox Delivery Rate 01/31 1102 98.0 72 20 135/77 01/31 0934 84 152/78 01/31 0934 84 152/78 01/31 0934 84 152/78 01/31 0933 84 152/78 01/31 0933 84 152/78 01/31 0812 98.0 84 22 152/78 01/31 0800 97 Nasal 2.0L Cannula 01/31 0643 96.1 96 20 156/74 93 Nasal 2.0L Cannula 01/31 0511 92 20 95 Nasal 2.0L Cannula 01/31 0341 97.9 90 22 144/75 96 Nasal 2.0L Cannula 01/31 0337 96 Nasal 2.0L Cannula Intake & Output 01/31 1600 01/31 0800 01/31 0000 01/30 1600 01/30 0800 01/30 0000 Intake Total Output Total 750 370 Balance -750 -370 Output, Urine 750 370 Patient 236 lb Weight Physical Exam: Gen: The patient is in no acute distress HEENT: Normal nose, ears, and oropharynx. Pupils equal bilaterally. Conjunctiva normal. Neck: Supple with no JVD, no masses, and no thyromegaly Lungs: Rales in the bases bilaterally with normal respiratory effort Heart: RRR, S1, S2, 1/6 systolic murmur. 1+ peripheral edema, 2+ pulses in the lower extremities bilaterally Abdomen: Soft, nontender, no masses. No hepatomegaly. No splenomegaly Extremities: No clubbing or cyanosis. Normal muscle strength in the upper and lower extremities Skin: Normal skin turgor with no skin ulcers or lesions noted. Neuro: Cranial nerves intact. Sensation intact Psych: Alert and oriented 3 with appropriate affect Labs/Angus Results: Laboratory Tests 01/31 01/31 1006 0356 Chemistry Sodium (137 - 145 mmol/L) 140 Potassium (3.5 - 5.1 mmol/L) 5.3 H Chloride (98 - 107 mmol/L) 102 Carbon Dioxide (22 - 30 mmol/L) 24 Anion Gap (5 - 16) 14 BUN (9 - 20 mg/dL) 51 H Creatinine (0.7 - 1.2 mg/dL) 4.7 H Estimated GFR (>60 ml/min) 13 L BUN/Creatinine Ratio (7 - 25 %) 10.9 Glucose (65 - 99 mg/dL) 112 H Calcium (8.4 - 10.2 mg/dL) 8.1 L Total Bilirubin (0.2 - 1.3 mg/dL) 0.5 AST (17 - 59 U/L) 12 L ALT (21 - 72 U/L) 27 Alkaline Phosphatase (< 127 U/L) 73 Troponin I (<0.11 ng/ml) 0.51 *H 0.50 *H Usv-C-Lnkuvevqlaw Pept (<125 pg/mL) 39449 H Total Protein (6.3 - 8.2 g/dL) 6.0 L Albumin (3.5 - 5.0 g/dL) 3.3 L Globulin (1.9 - 4.2 gm/dL) 2.7 Albumin/Globulin Ratio (1.1 - 2.2 %) 1.2 TSH (0.270 - 4.200 uIU/mL) 0.031 L Free T4 (0.78 - 2.44 ng/dL) 1.86 Coagulation PT (9.4 - 12.5 SEC) 11.3 INR (0.90 - 1.17) 1.08 APTT (25 - 37 SEC) 32 Hematology CBC w Diff NO MAN DIFF REQ WBC (4.8 - 10.8 /CUMM) 6.1 RBC (4.70 - 6.10 /CUMM) 3.64 L Hgb (14.0 - 18.0 G/DL) 9.6 L Hct (42 - 52 %) 29.1 L MCV (80.0 - 94.0 FL) 80.0 MCH (27.0 - 31.0 PG) 26.3 L RDW (11.5 - 14.5 %) 13.4 Plt Count (130 - 400 /CUMM) 330 MPV (7.4 - 10.4 FL) 6.4 L Gran % (42.2 - 75.2 %) 53.8 Lymphocytes % (20.5 - 51.1 %) 31.4 Monocytes % (1.7 - 9.3 %) 11.0 H Eosinophils % (0 - 5 %) 3.3 Basophils % (0.0 - 2.0 %) 0.5 Absolute Granulocytes (1.4 - 6.5 /CUMM) 3.3 Absolute Lymphocytes (1.2 - 3.4 /CUMM) 1.9 Absolute Monocytes (0.10 - 0.60 /CUMM) 0.7 H Absolute Eosinophils (0.0 - 0.7 /CUMM) 0.2 Absolute Basophils (0.0 - 0.2 /CUMM) 0 PUBS MCHC (33.0 - 37.0 G/DL) 32.9 L Diagnostic Data EKG Results EKG tracing is independently reviewed, and reveals normal sinus rhythm at 92, left axis deviation, possible anteroseptal infarct age undetermined CXR Results Hypoexpanded lungs. Small pleural effusions with basilar airspace opacities which favor atelectasis, although pneumonia not excluded. Other Results Echocardiogram 01/25/17: 1. Mild aortic sclerosis is present with no valvular stenosis or insufficiency. 2. Mitral leaflet thickening is present with moderate mitral insufficiency and moderate left atrial enlargement. 3. There is no significant pericardial fluid present. 4. The left ventricular chamber size is normal. There is focal hypokinesia of the distal septum and apical segments with an ejection fraction of 50-55%. 5. The right heart structures are grossly normal. Mild tricuspid insufficiency is present with minimal pulmonic insufficiency and no significant pulmonary hypertension. 6. Left ventricular diastolic dysfunction is present. Assessment/Plan Assessment/Plan Assessment: 1. Diabetes mellitus 2. Chronic kidney disease 3. CAD, status post multiple stents 4. Chest discomfort with mild troponin elevation, possible recent non-ST elevation LA versus demand ischemia 5. LVEF 50-55 percent with hypokinetic apex on echocardiogram 6. Acute on chronic diastolic heart failure Plan: * Agree with plan for Lasix 40 mg IV 1 followed by 40 mg by mouth daily as per nephrology * Monitor input and output * Basic metabolic profile daily Consult Acknowledgment - Thank you for your consult request.
[2017-01-31 13:03] VITALS: BP 113/66
--- NOTE | 2017-01-31 13:58 | PN- Student ---
Subjective Subjective: Medical Student Daily Progress Note: Mr. Sergei Dodd is a 67yo M with PMH significant for CAD s/p multiple stents, type 2 DM, COPD, and ESRD with a recent admission for chest pain and positive troponins, felt to be NSTEMI vs demand ischemia. A cardiac cath was thought to be necessary on his last admission, but was delayed d/t ESRD. He was discharged on 01/28/17, and has had progressive dyspnea since, prompting his return to the ED on 01/31/17. Since admission, Mr. Dodd has complained of dyspnea. He feels like he can't catch his breath. He denies headache, vision changes, chest pain, nausea, vomiting, change in bowel habits, fever, chills, or any othr s/s of infection. He admits to a minimal cough with minimal productivity. He expresses frustration at not knowing exactly what is going on or what to expect in terms of illness and lifestyle limitations. Has mentioned "taking the easy or fast way out," although he denies that he actually wishes to harm himself. Current Medications Sig/Julissa Start time Last Medication Dose Route Stop Time Status Admin Acetaminophen 650 MG Q6P PRN 01/31 0530 AC PO Acetaminophen 1,000 MG Q6P PRN 01/31 0530 AC IV Alprazolam 0.25 MG TID PRN 01/31 0545 AC PO 02/07 0544 Amlodipine Besylate 10 MG DAILY 01/31 1000 AC 01/31 PO 0934 Aspirin 0 .STK-MED ONE 01/31 0510 DC PO Aspirin 325 MG ONCE ONE 01/31 0500 DC 01/31 PO 01/31 0501 0511 Aspirin Buffered 81 MG DAILY 01/31 1000 AC 01/31 PO 0933 Atorvastatin Calcium 80 MG 1700 01/31 1700 AC PO Budesonide/ 2 PUF BID 01/31 1000 AC 01/31 Formoterol Fumarate INH 0934 Budesonide/ 2 PUF BID 01/31 1000 CAN Formoterol Fumarate INH Clonidine 0.1 MG BID 01/31 1000 AC 01/31 PO 0933 Folic Acid 1 MG DAILY 01/31 1000 AC 01/31 PO 0934 Heparin Sodium 0 .STK-MED ONE 01/31 0645 DC (Porcine) .ROUTE Heparin Sodium 5,000 UNIT Q8 01/31 0600 AC 01/31 (Porcine) SC 0645 Insulin Aspart 0 TIDAC 01/31 0800 AC SC Insulin Detemir 31 UNITS BID 01/31 2200 AC SC Isosorbide 60 MG DAILY 01/31 1000 AC 01/31 Mononitrate PO 0933 Levothyroxine Sodium 0.274 MG DAILY AC 01/31 0700 AC 01/31 PO 0646 Metoprolol Tartrate 100 MG DAILY 01/31 1000 AC 01/31 PO 0934 Morphine Sulfate 2 MG Q4P PRN 01/31 0530 DC IV Sevelamer Carbonate 1,600 MG TID 01/31 1000 AC 01/31 PO 0934 Tamsulosin HCl 0.4 MG DAILY 01/31 1000 AC 01/31 PO 0934 Ticagrelor 90 MG BID 01/31 1000 AC 01/31 PO 0933 Trazodone HCl 150 MG QPM 01/31 2200 AC PO Objective Objective: Vital Signs Date Time Temp Pulse Resp B/P B/P Pulse O2 O2 Flow FiO2 Mean Ox Delivery Rate 01/31 1303 96.8 75 20 113/66 94 Nasal 2.0L Cannula 01/31 1102 98.0 72 20 135/77 01/31 0934 84 152/78 01/31 0934 84 152/78 01/31 0934 84 152/78 01/31 0933 84 152/78 01/31 0933 84 152/78 01/31 0812 98.0 84 22 152/78 01/31 0800 97 Nasal 2.0L Cannula 01/31 0643 96.1 96 20 156/74 93 Nasal 2.0L Cannula 01/31 0511 92 20 95 Nasal 2.0L Cannula 01/31 0341 97.9 90 22 144/75 96 Nasal 2.0L Cannula 01/31 0337 96 Nasal 2.0L Cannula Intake & Output 01/31 1600 01/31 0800 01/31 0000 Intake Total Output Total 750 370 Balance -750 -370 Output, Urine 750 370 Patient 186 lb 186 lb Weight Weight Reported by Patient Measurement Method Telemetry: NSR, rate in 70's General: awake, anxious HEENT: moist oral mucosa, no scleral icterus or conjunctival pallor CV: RRR, no murmurs Pulmonary: diminished, slight crackles on LLL GI: abdomen soft, non-tender. bowel sounds present Extremities: trace to +1 pitting edema of BLE Results Results: Laboratory Tests 01/31/17 1006: Troponin I 0.51 *H 01/31/17 0356: Anion Gap 14, Estimated GFR 13 L, BUN/Creatinine Ratio 10.9, Glucose 112 H, Calcium 8.1 L, Total Bilirubin 0.5, AST 12 L, ALT 27, Alkaline Phosphatase 73, Troponin I 0.50 *H, Dfh-R-Krbynyfmhnj Pept 27069 H, Total Protein 6.0 L, Albumin 3.3 L, Globulin 2.7, Albumin/Globulin Ratio 1.2, TSH 0.031 L, Free T4 1.86, PT 11.3, INR 1.08, APTT 32, CBC w Diff NO MAN DIFF REQ, RBC 3.64 L, MCV 80.0, MCH 26.3 L, RDW 13.4, MPV 6.4 L, Gran % 53.8, Lymphocytes % 31.4, Monocytes % 11.0 H, Eosinophils % 3.3, Basophils % 0.5, Absolute Granulocytes 3.3, Absolute Lymphocytes 1.9, Absolute Monocytes 0.7 H, Absolute Eosinophils 0.2, Absolute Basophils 0, PUBS MCHC 32.9 L Assessment/Plan Assessment: Mr. Sergei Dodd is a 67yo M with PMH significant for CAD s/p multiple stents, type 2 DM, COPD, and ESRD with progressive dyspnea since discharge from the hospital on 01/28/17. Plan: Dyspnea: CXR on admission showed bilateral pleural effusions with basilar airspace opacities. [place]-BNP [place] 47907. Likely d/t volume overload 2/2 renal failure. Anxiety could also be a factor. * Continue supplemental oxygen * Wean oxygen as tolerated * Lasix 40mg daily; IV 1x, po after * Continue Symbicort CAD: has had multiple stents, most recent in 10/2016. Cath was recommended on last admission, but delayed d/t ESRD. Treated conservatively with IV heparin, discharged on Brilinta, ASA. No CP on this admission, but troponin was 0.50 at time of admission. * Continue Brilinta 90 mg BID * Continue ASA 81 mg daily * Continue antihypertensive therapy with amlodipine 10mg daily, clonidine 0.1mg BID * Continue metoprolol 100 mg daily * Continue atorvastatin 80mg daily * Serial EKG and Troponin * Continue Telemetry monitoring * Cardiology consult and recommendations * Strict I&O, daily weight ESRD: has AVF in [facility], not yet matured. BUN/Cr: 51/4.7 on admission, Potassium 5.3. On Renvela 1600mg TID. * Nephrology recommendations * Continue Renvela * Monitor BMP daily * Renal/dialysis diet Insulin Dependent Type 2 DM: on insulin aspart SSI with meals, Levemir 31units at bedtime. Blood glucose relatively well controlled * Will continue SSI with meals * Continue Levemir at bedtime * Diabetic diet Hypothyroidism 2/2 thyroidectomy: patient has PMH of thyroid cancer s/p thyroidectomy. On levothyroxine 137mcg x2 tabs daily. * Continue levothyroxine Anxiety: Patient expresses frustration with current situation. Has made multiple statements about the "easy" or "fast" way out. Denies any intent to self harm. * Psychiatry consult * Continue Xanax 0.5mg BID prn * Continue psychiatric medication regimen Code Status: Full Diet: CC2 + 2gm Na/2 gm K restriction DVT prophylaxis: HSQ
--- NOTE | 2017-01-31 14:29 | NUR ---
Received pt from ER. Report from Chris MATTHEWS. Pt placed on tele-NSR 70s. 2L 94-96%, lungs sound clear/diminished bases. Pt states having difficulty breathing. No other complaints from pt. Skin CDI. No edema noted. Resting in recliner chair. Oriented to room. Will CTM.
--- NOTE | 2017-01-31 15:43 | PN- Att Addend ---
Attending Addendum Attending Brief Note Laboratory Tests 01/31/17 1006: Troponin I 0.51 *H 01/31/17 0356: Anion Gap 14, Estimated GFR 13 L, BUN/Creatinine Ratio 10.9, Glucose 112 H, Calcium 8.1 L, Total Bilirubin 0.5, AST 12 L, ALT 27, Alkaline Phosphatase 73, Troponin I 0.50 *H, Bvc-R-Xeffqjhyrtt Pept 79351 H, Total Protein 6.0 L, Albumin 3.3 L, Globulin 2.7, Albumin/Globulin Ratio 1.2, TSH 0.031 L, Free T4 1.86, PT 11.3, INR 1.08, APTT 32, CBC w Diff NO MAN DIFF REQ, RBC 3.64 L, MCV 80.0, MCH 26.3 L, RDW 13.4, MPV 6.4 L, Gran % 53.8, Lymphocytes % 31.4, Monocytes % 11.0 H, Eosinophils % 3.3, Basophils % 0.5, Absolute Granulocytes 3.3, Absolute Lymphocytes 1.9, Absolute Monocytes 0.7 H, Absolute Eosinophils 0.2, Absolute Basophils 0, PUBS MCHC 32.9 L Microbiology 01/31 811 URINE ROUT: Legionella Antigen - COMP 01/31 811 URINE ROUT: Streptococcus pneumoniae Antigen (M - COMP Vital Signs Date Time Temp Pulse Resp B/P B/P Pulse O2 O2 Flow FiO2 Mean Ox Delivery Rate 01/31 1303 96.8 75 20 113/66 94 Nasal 2.0L Cannula 01/31 1102 98.0 72 20 135/77 01/31 0934 84 152/78 01/31 0934 84 152/78 01/31 0934 84 152/78 01/31 0933 84 152/78 01/31 0933 84 152/78 01/31 0812 98.0 84 22 152/78 01/31 0800 97 Nasal 2.0L Cannula 01/31 0643 96.1 96 20 156/74 93 Nasal 2.0L Cannula 01/31 0511 92 20 95 Nasal 2.0L Cannula 01/31 0341 97.9 90 22 144/75 96 Nasal 2.0L Cannula 01/31 0337 96 Nasal 2.0L Cannula pt seen and examined at bedside. Discussed with patient the care plan. Patient was recently discharged from the hospital and has significant past medical history of CKD and CHF and anxiety issues and also has underlying sleep apnea. Patient did okay for 2 days post discharge but the third day he started having shortness of breath and anxiety issues and decided to come back to the ER for further evaluation. For his shortness of breath likely secondary to fluid overload related to his CKD as well as acute on chronic diastolic CHF we will give a trial of Lasix and monitor his renal functions very closely. Nephrology has been consulted and they will follow-up closely with us. Anxiety-we will consult psychiatry to see him for his anxiety issues. Troponin elevation-likely secondary to demand ischemia versus secondary to his chronic kidney disease, type 2 TX. d/w pt the care plan.
[2017-01-31 16:33] VITALS: BP 124/61
--- NOTE | 2017-01-31 17:21 | Cons- Psychiatry ---
Psychiatric Consult Date of Consult: 01/31/17 Reason for Consult: "Anxiety, overwhelmed with situation" History of Present Illness: Identifying Info: 67-year-old male presents to [facility] emergency department on 01/31/17 with 3 days of progressive shortness of breath and admitted to medicine. Of note, patient was discharged from [place] 3 days ago. CC: "I'm a miserable son of a bitch." HPI: Patient has been experiencing increasing anxiety over the past several months related to his deteriorating physical condition. He has been especially troubled by periods of shortness of breath during which he feels his anxiety increases greatly which makes it even more difficult for him to catch her breath. Denies any previous issues with anxiety and depression. Patient reports that for most of his life he has had somewhat of a "violent temper" and is quick to react to perceived slights. Of note the patient has been and 4 times. PMH: Please see the H&P for a complete listing Chronic back pain , cervical spine surgery(2013), hypertension, hyperlipidemia, hypothyroidism, type 2 diabetes mellitus, diabetic neuropathy, end-stage renal disease, AVF in left arm ( 01/17/2017, not used for dialysis), coronary artery disease, RCA 100%,distal LAD 80% s/p 6 stent, last stent placement was done 2 months ago Past Psych History: Denies One previous consult evaluation for capacity in October of 2014, during that time he was diagnosed with delirium due to medical condition versus (hospital administered) opiate intoxication Family Psych History: Son Bipolar Ex Bipolar Substance History Reports 17 years sobriety with history of polysubstance abuse including ETOH, hallucinogens "pretty much anything except for needles" Former 4 pack per day smoker, has not smoked for 4 years -Treatment Denies Family Substance History: Unobtained Social: Patient has 4 children aged 14-45 and 4 previous divorces. 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 Born and raised in [facility] now lives in [place] with his girlfriend. Abuse/Trauma: Unobtained Current Home Psychotropic Medications: Trazodone 150mg qhs Xanax 0.25 mg 3 times a day recently prescribed by [facility] Current Hospital Psychotropic Medications: Med Alprazolam 0.25 MG PO TID PRN 01/31/17 0545 Trazodone HCl 150 MG PO QPM 01/31/17 2200 Allergies: Coded Allergies: morphine (Mild, LOOPY 01/18/17) hydromorphone (DEPRESSED RESPIRATIONS 01/18/17) Uncoded Allergies: CONTRAST DYE (CONTRAINDICATED 01/11/17) Current Medications: Current Medications Sig/Julissa Start time Last Medication Dose Route Stop Time Status Admin Acetaminophen 650 MG Q6P PRN 01/31 0530 AC PO Acetaminophen 1,000 MG Q6P PRN 01/31 0530 AC IV Alprazolam 0.25 MG TID PRN 01/31 0545 AC PO 02/07 0544 Amlodipine Besylate 10 MG DAILY 01/31 1000 AC 01/31 PO 0934 Aspirin 0 .STK-MED ONE 01/31 0510 DC PO Aspirin 325 MG ONCE ONE 01/31 0500 DC 01/31 PO 01/31 0501 0511 Aspirin Buffered 81 MG DAILY 01/31 1000 AC 01/31 PO 0933 Atorvastatin Calcium 80 MG 1700 01/31 1700 AC 01/31 PO 1711 Budesonide/ 2 PUF BID 01/31 1000 AC 01/31 Formoterol Fumarate INH 0934 Budesonide/ 2 PUF BID 01/31 1000 CAN Formoterol Fumarate INH Clonidine 0.1 MG BID 01/31 1000 AC 01/31 PO 0933 Folic Acid 1 MG DAILY 01/31 1000 AC 01/31 PO 0934 Furosemide 40 MG DAILY 02/01 1000 AC PO Furosemide 40 MG ONCE ONE 01/31 1530 DC 01/31 IV 01/31 1531 1712 Heparin Sodium 0 .STK-MED ONE 01/31 0645 DC (Porcine) .ROUTE Heparin Sodium 5,000 UNIT Q8 01/31 0600 AC 01/31 (Porcine) SC 1712 Insulin Aspart 0 TIDAC 01/31 0800 AC SC Insulin Detemir 31 UNITS BID 01/31 2200 AC SC Isosorbide 60 MG DAILY 01/31 1000 AC 01/31 Mononitrate PO 0933 Levothyroxine Sodium 0.274 MG DAILY AC 01/31 0700 AC 01/31 PO 0646 Metoprolol Tartrate 100 MG DAILY 01/31 1000 AC 01/31 PO 0934 Morphine Sulfate 2 MG Q4P PRN 01/31 0530 DC IV Ramelteon 8 MG AT BEDTIME 01/31 2200 AC PO Sertraline HCl 25 MG DAILY 01/31 1600 AC 01/31 PO 1713 Sevelamer Carbonate 1,600 MG TID 01/31 1000 AC 01/31 PO 1712 Tamsulosin HCl 0.4 MG DAILY 01/31 1000 AC 01/31 PO 0934 Ticagrelor 90 MG BID 01/31 1000 AC 01/31 PO 0933 Trazodone HCl 150 MG QPM 01/31 2200 AC PO Past History Past Medical History Neurological: NONE EENT: NONE Cardiovascular: CAD, hypertension, 6 CARDIAC STENTS Respiratory: COPD Gastrointestinal: constipation Hepatic: NONE Renal: chronic kidney disease, L ARM AVF PLACED 01/17/17 Musculoskeletal: chronic back pain, ?BACK PROBLEM REQUIRE SX Psychiatric: NONE Endocrine: diabetes Blood Disorders: NONE Cancer(s): THYROID CA 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 Past Surgical History Surgical History: CARDIAC STENTS X 6 THYROIDECTOMY LEFT LEG FX REPAIR ELBOW FX REPAIR SPINAL FUSION C4-C5 Psychosocial History Strengths/Capabilities: Treatment motivated, supportive family Physical Limitations (Interventions): Multiple medical illnesses Psychiatric Treatment History Psych Treatment Psychiatric Treatment No Diagnosis: None previously Risk Factors: age (under 24/over 65), access to lethal means, chronic/serious med cond., high anxiety/distress, male Substance Use/Abuse History Drug Use/Abuse Substances Used/Abused Yes ((as above)) Substance Abuse Treatment Substance Abuse Treatment Past Substance Abuse [place] No Assessment/Plan Mental Status Mental Status Exam: Mental Status Exam Presentation/Appearance: Cooperative with evaluation. Hospital garb. Sitting in chair. Bearded. Orientation: Oriented to self, place, and situation, month but not day Sensorium: Awake and alert Eye contact: Appropriate Affect: Full range congruent with stated mood Mood: "Miserable" Depression: Denies Anxiety: Endorses when SOB Thought Content:. - Endorses chronic passive SI. No plan or intent. States and also believes they will not kill themselves. - Denies /HI, AH/VH, PI. - Denies Hopeless/Helpless Thoughts Thought Process: Linear Speech: Normal tone and rate Judgment: Intact Insight: Intact Cognition: Memory: Grossly intact Attention/Concentration: Grossly intact Brief ROS Gait:Not observed Sleep: Poor Appetite: Adequate Energy: Low IADLs/ADLs: Independent Patient is agreeable to trialing new medication for sleep, an antidepressant for anxiety, and following up outpatient psychiatric treatment at [facility] psychiatric services. Lab Results: Laboratory Tests 01/31/17 1006: Troponin I 0.51 *H 01/31/17 0356: Anion Gap 14, Estimated GFR 13 L, BUN/Creatinine Ratio 10.9, Glucose 112 H, Calcium 8.1 L, Total Bilirubin 0.5, AST 12 L, ALT 27, Alkaline Phosphatase 73, Troponin I 0.50 *H, [id number] Pept 53171 H, Total Protein 6.0 L, Albumin 3.3 L, Globulin 2.7, Albumin/Globulin Ratio 1.2, TSH 0.031 L, Free T4 1.86, PT 11.3, INR 1.08, APTT 32, CBC w Diff NO MAN DIFF REQ, RBC 3.64 L, MCV 80.0, MCH 26.3 L, RDW 13.4, MPV 6.4 L, Gran % 53.8, Lymphocytes % 31.4, Monocytes % 11.0 H, Eosinophils % 3.3, Basophils % 0.5, Absolute Granulocytes 3.3, Absolute Lymphocytes 1.9, Absolute Monocytes 0.7 H, Absolute Eosinophils 0.2, Absolute Basophils 0, PUBS MCHC 32.9 L Microbiology 01/31 811 URINE ROUT: Legionella Antigen - COMP 01/31 811 URINE ROUT: Streptococcus pneumoniae Antigen (M - COMP 01/31 538 LOWER RESP: Respiratory Culture - ORD 01/31 538 LOWER RESP: Gram Stain - ORD 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 Of note he has a history of impulsivity in remote history of polysubstance use but no floridly manic or depressive episodes. He would benefit from medication with anxiolytic properties that will not impact his breathing as well as psychotherapy. Provisional Treatment Plan: 1. Please order Zoloft 25 mg daily. If tolerated for 3 days increase to 50 mg. 2. Please start Rozerem 8 mg daily at bedtime for sleep. 3. Please continue current psychotropics as presently ordered. Could potentially benefit from alternate anxiolytic agent that would not impact respiratory status. Gabapentin as needed may be considered, however due to renal excretion would request nephrology and pharmacy input on dosing prior to initiating. Additional benzodiazepines, Atarax, and atypical antipsychotics should be avoided due to medical comorbidities. 4. Once disposition is known we will schedule the patient with [facility] outpatient psychiatry for intake appointment. Thank you for including psychiatry in this case we'll continue to follow.
[2017-02-01 00:50] VITALS: BP 146/79
--- NOTE | 2017-02-01 07:32 | PN- Housestaff ---
Subjective Follow-up For: Shortness of breath Acute on chronic diastolic CHF CKD stage 5 Anxiety disorder Tele-Events Since Last Visit: Sinus rhythm HR 73-78 No events Subjective: No acute events overnight. Patient seen and examined this morning. Shortness of breath has improved. He reports that he slept really well last night. He denies chest pain. He is dissatisfied with the sodium- and potassium-restricted diet that he is currently on. Review of Systems Constitutional: Reports: see HPI. Objective Last 24 Hrs of Vital Signs/I&O Vital Signs Date Time Temp Pulse Resp B/P B/P Pulse O2 O2 Flow FiO2 Mean Ox Delivery Rate 02/01 1530 97.9 75 18 124/78 96 Nasal Cannula 02/01 1411 96 Nasal 2.0L Cannula 02/01 0905 98.2 81 22 120/54 96 Nasal 2.0L Cannula 02/01 0809 97.8 90 22 146/79 02/01 0809 97.8 90 22 146/79 02/01 0809 97.8 90 22 146/79 02/01 0809 97.8 90 22 146/79 02/01 0808 97.8 90 22 146/79 02/01 0800 Nasal 2.0L Cannula 02/01 0050 97.8 90 22 146/79 98 Nasal Cannula 02/01 0000 Nasal 2.0L Cannula 01/31 2245 Nasal 2.0L Cannula 01/31 2233 84 138/78 Intake & Output 02/01 1600 02/01 0800 02/01 0000 Intake Total 800 480 570 Output Total 700 1600 1100 Balance 100 -1120 -530 Intake, IV 20 Intake, Oral 800 480 550 Number 0 Bowel Movements Output, Urine 700 1600 1100 Patient 103.079 kg Weight Weight Chair scale Measurement Method Physical Exam General Appearance: Alert, Oriented X3, No Acute Distress HEENT: Atraumatic, Mucous Membr. moist/pink Neck: Supple Cardiovascular: Regular Rate, Normal S1, Normal S2 Lungs: Few Bibasilar Crackles Abdomen: Soft, No Tenderness, Positive Bowel Sounds Extremities: No Clubbing, No Cyanosis, 1+ Pitting Edema on Bilateral Lower Extremities Current Medications: Current Medications Sig/Julissa Start time Last Medication Dose Route Stop Time Status Admin Acetaminophen 650 MG Q6P PRN 01/31 0530 AC PO Acetaminophen 1,000 MG Q6P PRN 01/31 0530 AC IV Albuterol Sulfate 3 ML Q4P PRN 01/31 2300 AC 01/31 INH 1955 Alprazolam 0.25 MG TID PRN 01/31 0545 AC PO 02/07 0544 Amlodipine Besylate 10 MG DAILY 01/31 1000 AC 02/01 PO 0809 Aspirin Buffered 81 MG DAILY 01/31 1000 AC 02/01 PO 0809 Atorvastatin Calcium 80 MG 1700 01/31 1700 AC 02/01 PO 1632 Budesonide/ 2 PUF BID 01/31 1000 AC 02/01 Formoterol Fumarate INH 0808 Clonidine 0.1 MG BID 01/31 1000 AC 02/01 PO 0809 Dextrose 25 GM ONCE ONE 02/01 0900 DC IV 02/01 0901 Folic Acid 1 MG DAILY 01/31 1000 AC 02/01 PO 0809 Furosemide 40 MG DAILY 02/01 1000 DC 02/01 PO 0809 Heparin Sodium 5,000 UNIT Q8 01/31 0600 AC 02/01 (Porcine) SC 1320 Insulin Aspart 0 TIDAC 01/31 0800 AC 02/01 SC 1708 Insulin Detemir 31 UNITS BID 01/31 2200 AC 02/01 SC 0814 Isosorbide 60 MG DAILY 01/31 1000 AC 02/01 Mononitrate PO 0808 Levothyroxine Sodium 0.225 MG DAILY AC 02/02 0700 CAN PO Levothyroxine Sodium 0.2 MG DAILY AC 02/02 0700 AC PO Levothyroxine Sodium 0.025 MG DAILY AC 02/02 0700 AC PO Levothyroxine Sodium 0.274 MG DAILY AC 01/31 0700 DC 02/01 PO 0640 Loperamide HCl 2 MG ONE ONE 02/01 1630 DC 02/01 PO 02/01 1631 1632 Metoprolol Tartrate 100 MG DAILY 01/31 1000 AC 02/01 PO 0809 Patient Medication 1 ED .STK-MED ONE 02/01 1356 DC Teaching ED 02/01 1357 Ramelteon 8 MG AT BEDTIME 01/31 2200 AC 01/31 PO 2230 Sertraline HCl 25 MG DAILY 01/31 1600 AC 02/01 PO 02/02 1001 0810 Sevelamer Carbonate 1,600 MG TID 01/31 1000 AC 02/01 PO 1632 Tamsulosin HCl 0.4 MG DAILY 01/31 1000 AC 02/01 PO 0809 Ticagrelor 90 MG BID 01/31 1000 AC 02/01 PO 0808 Trazodone HCl 150 MG QPM 01/31 2200 AC 01/31 PO 2228 Last 24 Hrs of Lab/Angus Results Last 24 Hrs of Labs/Mics: Laboratory Tests 02/01/17 0614: Anion Gap 14, Estimated GFR 12 L, BUN/Creatinine Ratio 10.6, Phosphorus 6.2 H, CBC w Diff NO MAN DIFF REQ, RBC 3.68 L, MCV 78.9 L, MCH 26.4 L, RDW 13.3, MPV 7.4, Gran % 59.6, Lymphocytes % 26.1, Monocytes % 10.5 H, Eosinophils % 3.0, Basophils % 0.8, Absolute Granulocytes 3.4, Absolute Lymphocytes 1.5, Absolute Monocytes 0.6, Absolute Eosinophils 0.2, Absolute Basophils 0, PUBS MCHC 33.5 Assessment/Plan Assessment: 67 y/o M with PMHx of CAD s/p multiple stent placement, CKD stage V and insulin- dependent T2DM who is under observation for shortness of breath, 3 days after being discharged from [place] where he was admitted for NSTEMI and acute hypoxemic respiratory failure. #SOB: Likely secondary to volume overload in the setting of CKD and acute on chronic diastolic CHF with contributions from anxiety. S/p 40 mg of IV Lasix yesterday and 40 mg PO Lasix this morning. No signs of CHF today. Remains on 2 L NC which is his new baseline oxygen requirement. * Patient is currently under observation. Discharge home today. * Patient instructed to follow up with cardiology after discharge. * Patient counseled on dietary habits and advised to follow diabetic diet with sodium and 1.5 L fluid restriction on discharge. #CKD stage V: Cr has increased slightly to 4.9 today from 4.7 after receiving 1 dose of IV Lasix. * Patient instructed to follow up with his induction b[facility] Dr. Nikolay Mclaughlin on discharge. * Hold Lasix on discharge per nephrology in light of worsening renal function. #Anxiety disorder: * Rozerem 8 mg PO daily added to discharge medications. * Patient will continue Zoloft on discharge. He will take 25 mg PO tomorrow () and increase dose to 50 mg the following day (02/03-). * Continue [id number] Xanax 0.5 mg PO BID PRN on discharge. * Appointment with [facility] scheduled on 02/14/17. #Hypothyroidism: TSH noted to be low at 0.031. * Levothyroxine dose decreased to 0.225 mg PO AC daily on discharge. Diet: Consistent Carbohydrate 3 with 2 g Na and 2 g K restriction DVT PPx: HSQ and ALPs CODE: FULL Problem List: 1. Shortness of breath 2. Volume overload 3. Anxiety disorder 4. Insulin dependent type 2 diabetes mellitus 5. CKD (chronic kidney disease), stage V 6. Hypothyroidism 7. Acute on chronic diastolic (congestive) heart failure Pain Ratin Pain Location: N/A Pain Goal: Remain pain free Pain Plan: Tylenol 1 g IV Q6H PRN for moderate pain (scale 4-6) Tylenol 650 mg PO Q6H PRN for mild pain (scale 1-3) Tomorrow's Labs & Rationales: None Discharge Plan Discharge Disposition: home Stable for Discharge? Yes Anticipated Discharge (Day): today
[2017-02-01 08:33] LABS: ABSOLUTE BASOPHIL COUNT 0 /CUMM (0.0-0.2); ABSOLUTE EOSINOPHIL COUNT 0.2 /CUMM (0.0-0.7); ABSOLUTE GRANULOCYTE CT 3.4 /CUMM (1.4-6.5); ABSOLUTE LYMPH COUNT 1.5 /CUMM (1.2-3.4); ABSOLUTE MONOCYTE COUNT 0.6 /CUMM (0.10-0.60); BASOPHIL % 0.8 % (0.0-2.0); GRANULOCYTE % 59.6 % (42.2-75.2); MEAN CORPUSCULAR HGB 26.4 PG (27.0-31.0); MEAN CORPUSCULAR HGB CONC 33.5 G/DL (33.0-37.0); MEAN CORPUSCULAR VOLUME 78.9 FL (80.0-94.0); MEAN PLATELET VOLUME 7.4 FL (7.4-10.4); PLATELET COUNT 384 /CUMM (130-400); RBC DISTRIBUTION WIDTH 13.3 % (11.5-14.5); RED BLOOD CELL CT 3.68 /CUMM (4.70-6.10); WHITE BLOOD CELL COUNT 5.7 /CUMM (4.8-10.8)
[2017-02-01 09:05] VITALS: BP 120/54
--- NOTE | 2017-02-01 09:29 | PN- Nephrology ---
Assessment/Plan Assessment: Renal function slight worse after Lasix yesterday. No signs of CHF today. Suggestion: Hold off on oral Lasix and watch volume status. Still no dialysis indication. Subjective Subjective: Patient slept well, no chest pain or SOB. Angry about diet. Objective Vital Signs and I&Os Vital Signs Date Time Temp Pulse Resp B/P B/P Pulse O2 O2 Flow FiO2 Mean Ox Delivery Rate 02/01 0905 98.2 81 22 120/54 96 Nasal 2.0L Cannula 02/01 0809 97.8 90 22 146/79 02/01 0809 97.8 90 22 146/79 02/01 0809 97.8 90 22 146/79 02/01 0809 97.8 90 22 146/79 02/01 0808 97.8 90 22 146/79 02/01 0800 Nasal 2.0L Cannula 02/01 0050 97.8 90 22 146/79 98 Nasal Cannula 02/01 0000 Nasal 2.0L Cannula 01/31 2245 Nasal 2.0L Cannula 01/31 2233 84 138/78 01/31 1633 96.8 78 22 124/61 96 Nasal 2.0L Cannula 01/31 1600 95 Nasal 2.0L Cannula 01/31 1303 96.8 75 20 113/66 94 Nasal 2.0L Cannula 01/31 1102 98.0 72 20 135/77 01/31 0934 84 152/78 01/31 0934 84 152/78 01/31 0934 84 152/78 01/31 0933 84 152/78 01/31 0933 84 152/78 Intake & Output 02/01 1600 02/01 0400 01/31 1600 01/31 0400 01/30 1600 01/30 0400 Intake Total 480 570 Output Total 1600 1100 1120 Balance -1120 -530 -1120 Intake, IV 20 Intake, Oral 480 550 Number 0 Bowel Movements Output, Urine 1600 1100 1120 Patient 227 lb 186 lb 236 lb Weight Weight Chair scale Reported by Patient Measurement Method Physical Exam: NAD VS as above Lungs: clear CV: no rub Abd: non-tender Exts: no edema Neuro: A&O Current Medications: Current Medications Sig/Julissa Start time Last Medication Dose Route Stop Time Status Admin Acetaminophen 650 MG Q6P PRN 01/31 0530 AC PO Acetaminophen 1,000 MG Q6P PRN 01/31 0530 AC IV Albuterol Sulfate 3 ML Q4P PRN 01/31 2300 AC 01/31 INH 1955 Alprazolam 0.25 MG TID PRN 01/31 0545 AC PO 02/07 0544 Amlodipine Besylate 10 MG DAILY 01/31 1000 AC 02/01 PO 0809 Aspirin Buffered 81 MG DAILY 01/31 1000 AC 02/01 PO 0809 Atorvastatin Calcium 80 MG 1700 01/31 1700 AC 01/31 PO 1711 Budesonide/ 2 PUF BID 01/31 1000 AC 02/01 Formoterol Fumarate INH 0808 Clonidine 0.1 MG BID 01/31 1000 AC 02/01 PO 0809 Dextrose 25 GM ONCE ONE 02/01 0900 DC IV 02/01 0901 Folic Acid 1 MG DAILY 01/31 1000 AC 02/01 PO 0809 Furosemide 40 MG DAILY 02/01 1000 AC 02/01 PO 0809 Furosemide 40 MG ONCE ONE 01/31 1530 DC 01/31 IV 01/31 1531 1712 Heparin Sodium 5,000 UNIT Q8 01/31 0600 AC 02/01 (Porcine) SC 0640 Insulin Aspart 0 TIDAC 01/31 0800 AC SC Insulin Detemir 31 UNITS BID 01/31 2200 AC 02/01 SC 0814 Isosorbide 60 MG DAILY 01/31 1000 AC 02/01 Mononitrate PO 0808 Levothyroxine Sodium 0.274 MG DAILY AC 01/31 0700 AC 02/01 PO 0640 Metoprolol Tartrate 100 MG DAILY 01/31 1000 AC 02/01 PO 0809 Ramelteon 8 MG AT BEDTIME 01/31 2200 AC 01/31 PO 2230 Sertraline HCl 25 MG DAILY 01/31 1600 AC 02/01 PO 02/02 1001 0810 Sevelamer Carbonate 1,600 MG TID 01/31 1000 AC 02/01 PO 0809 Tamsulosin HCl 0.4 MG DAILY 01/31 1000 AC 02/01 PO 0809 Ticagrelor 90 MG BID 01/31 1000 AC 02/01 PO 0808 Trazodone HCl 150 MG QPM 01/31 2200 AC 01/31 PO 2228 Results Pertinent Lab Results: Laboratory Tests 02/01 01/31 0614 1006 Chemistry Sodium (137 - 145 mmol/L) 141 Potassium (3.5 - 5.1 mmol/L) 4.7 Chloride (98 - 107 mmol/L) 102 Carbon Dioxide (22 - 30 mmol/L) 25 Anion Gap (5 - 16) 14 BUN (9 - 20 mg/dL) 52 H Creatinine (0.7 - 1.2 mg/dL) 4.9 H Estimated GFR (>60 ml/min) 12 L BUN/Creatinine Ratio (7 - 25 %) 10.6 Phosphorus (2.5 - 4.5 mg/dL) 6.2 H Troponin I (<0.11 ng/ml) 0.51 *H Hematology CBC w Diff NO MAN DIFF REQ WBC (4.8 - 10.8 /CUMM) 5.7 RBC (4.70 - 6.10 /CUMM) 3.68 L Hgb (14.0 - 18.0 G/DL) 9.7 L Hct (42 - 52 %) 29.0 L MCV (80.0 - 94.0 FL) 78.9 L MCH (27.0 - 31.0 PG) 26.4 L RDW (11.5 - 14.5 %) 13.3 Plt Count (130 - 400 /CUMM) 384 MPV (7.4 - 10.4 FL) 7.4 Gran % (42.2 - 75.2 %) 59.6 Lymphocytes % (20.5 - 51.1 %) 26.1 Monocytes % (1.7 - 9.3 %) 10.5 H Eosinophils % (0 - 5 %) 3.0 Basophils % (0.0 - 2.0 %) 0.8 Absolute Granulocytes (1.4 - 6.5 /CUMM) 3.4 Absolute Lymphocytes (1.2 - 3.4 /CUMM) 1.5 Absolute Monocytes (0.10 - 0.60 /CUMM) 0.6 Absolute Eosinophils (0.0 - 0.7 /CUMM) 0.2 Absolute Basophils (0.0 - 0.2 /CUMM) 0 PUBS MCHC (33.0 - 37.0 G/DL) 33.5 01/31 0356 Chemistry Sodium (137 - 145 mmol/L) 140 Potassium (3.5 - 5.1 mmol/L) 5.3 H Chloride (98 - 107 mmol/L) 102 Carbon Dioxide (22 - 30 mmol/L) 24 Anion Gap (5 - 16) 14 BUN (9 - 20 mg/dL) 51 H Creatinine (0.7 - 1.2 mg/dL) 4.7 H Estimated GFR (>60 ml/min) 13 L BUN/Creatinine Ratio (7 - 25 %) 10.9 Glucose (65 - 99 mg/dL) 112 H Calcium (8.4 - 10.2 mg/dL) 8.1 L Total Bilirubin (0.2 - 1.3 mg/dL) 0.5 AST (17 - 59 U/L) 12 L ALT (21 - 72 U/L) 27 Alkaline Phosphatase (< 127 U/L) 73 Troponin I (<0.11 ng/ml) 0.50 *H [id number] Pept (<125 pg/mL) 25946 H Total Protein (6.3 - 8.2 g/dL) 6.0 L Albumin (3.5 - 5.0 g/dL) 3.3 L Globulin (1.9 - 4.2 gm/dL) 2.7 Albumin/Globulin Ratio (1.1 - 2.2 %) 1.2 TSH (0.270 - 4.200 uIU/mL) 0.031 L Free T4 (0.78 - 2.44 ng/dL) 1.86 Coagulation PT (9.4 - 12.5 SEC) 11.3 INR (0.90 - 1.17) 1.08 APTT (25 - 37 SEC) 32 Hematology CBC w Diff NO MAN DIFF REQ WBC (4.8 - 10.8 /CUMM) 6.1 RBC (4.70 - 6.10 /CUMM) 3.64 L Hgb (14.0 - 18.0 G/DL) 9.6 L Hct (42 - 52 %) 29.1 L MCV (80.0 - 94.0 FL) 80.0 MCH (27.0 - 31.0 PG) 26.3 L RDW (11.5 - 14.5 %) 13.4 Plt Count (130 - 400 /CUMM) 330 MPV (7.4 - 10.4 FL) 6.4 L Gran % (42.2 - 75.2 %) 53.8 Lymphocytes % (20.5 - 51.1 %) 31.4 Monocytes % (1.7 - 9.3 %) 11.0 H Eosinophils % (0 - 5 %) 3.3 Basophils % (0.0 - 2.0 %) 0.5 Absolute Granulocytes (1.4 - 6.5 /CUMM) 3.3 Absolute Lymphocytes (1.2 - 3.4 /CUMM) 1.9 Absolute Monocytes (0.10 - 0.60 /CUMM) 0.7 H Absolute Eosinophils (0.0 - 0.7 /CUMM) 0.2 Absolute Basophils (0.0 - 0.2 /CUMM) 0 PUBS MCHC (33.0 - 37.0 G/DL) 32.9 L
[2017-02-01] MEDS ORDERED: SYNTHROID200 MCG PO (13:07)
[2017-02-01] MEDS ORDERED: SYNTHROID25 MCG PO (13:07)
--- NOTE | 2017-02-01 13:09 | PN- Cardiology ---
Subjective Subjective: Shortness of breath improved. No chest pain. No palpitations. No diaphoresis. Objective Vital Signs and I&Os Vital Signs Date Time Temp Pulse Resp B/P B/P Pulse O2 O2 Flow FiO2 Mean Ox Delivery Rate 02/01 0905 98.2 81 22 120/54 96 Nasal 2.0L Cannula 02/01 0809 97.8 90 22 146/79 02/01 0809 97.8 90 22 146/79 02/01 0809 97.8 90 22 146/79 02/01 0809 97.8 90 22 146/79 02/01 0808 97.8 90 22 146/79 02/01 0800 Nasal 2.0L Cannula 02/01 0050 97.8 90 22 146/79 98 Nasal Cannula 02/01 0000 Nasal 2.0L Cannula 01/31 2245 Nasal 2.0L Cannula 01/31 2233 84 138/78 01/31 1633 96.8 78 22 124/61 96 Nasal 2.0L Cannula 01/31 1600 95 Nasal 2.0L Cannula Intake & Output 02/01 1600 02/01 0800 02/01 0000 01/31 1600 01/31 0800 01/31 0000 Intake Total 480 570 Output Total 1600 1100 750 370 Balance -1120 -530 -750 -370 Intake, IV 20 Intake, Oral 480 550 Number 0 Bowel Movements Output, Urine 1600 1100 750 370 Patient 227 lb 186 lb 186 lb Weight Weight Chair scale Reported by Patient Measurement Method Physical Exam: Gen: The patient is in no acute distress HEENT: Normal nose, ears, and oropharynx. Pupils equal bilaterally. Conjunctiva normal. Neck: Supple with no JVD, no masses, and no thyromegaly Lungs: Rales in the bases bilaterally with normal respiratory effort Heart: RRR, S1, S2, 1/6 systolic murmur. 1+ peripheral edema, 2+ pulses in the lower extremities bilaterally Abdomen: Soft, nontender, no masses. No hepatomegaly. No splenomegaly Extremities: No clubbing or cyanosis. Normal muscle strength in the upper and lower extremities Skin: Normal skin turgor with no skin ulcers or lesions noted. Neuro: Cranial nerves intact. Sensation intact Current Medications: Current Medications Sig/Julissa Start time Last Medication Dose Route Stop Time Status Admin Acetaminophen 650 MG Q6P PRN 01/31 0530 AC PO Acetaminophen 1,000 MG Q6P PRN 01/31 0530 AC IV Albuterol Sulfate 3 ML Q4P PRN 01/31 2300 AC 01/31 INH 1955 Alprazolam 0.25 MG TID PRN 01/31 0545 AC PO 02/07 0544 Amlodipine Besylate 10 MG DAILY 01/31 1000 AC 02/01 PO 0809 Aspirin Buffered 81 MG DAILY 01/31 1000 AC 02/01 PO 0809 Atorvastatin Calcium 80 MG 1700 01/31 1700 AC 01/31 PO 1711 Budesonide/ 2 PUF BID 01/31 1000 AC 02/01 Formoterol Fumarate INH 0808 Clonidine 0.1 MG BID 01/31 1000 AC 02/01 PO 0809 Dextrose 25 GM ONCE ONE 02/01 0900 DC IV 02/01 0901 Folic Acid 1 MG DAILY 01/31 1000 AC 02/01 PO 0809 Furosemide 40 MG DAILY 02/01 1000 DC 02/01 PO 0809 Furosemide 40 MG ONCE ONE 01/31 1530 DC 01/31 IV 01/31 1531 1712 Heparin Sodium 5,000 UNIT Q8 01/31 0600 AC 02/01 (Porcine) SC 0640 Insulin Aspart 0 TIDAC 01/31 0800 AC SC Insulin Detemir 31 UNITS BID 01/31 2200 AC 02/01 SC 0814 Isosorbide 60 MG DAILY 01/31 1000 AC 02/01 Mononitrate PO 0808 Levothyroxine Sodium 0.225 MG DAILY AC 02/02 0700 CAN PO Levothyroxine Sodium 0.2 MG DAILY AC 02/02 0700 AC PO Levothyroxine Sodium 0.025 MG DAILY AC 02/02 0700 AC PO Levothyroxine Sodium 0.274 MG DAILY AC 01/31 0700 DC 02/01 PO 0640 Metoprolol Tartrate 100 MG DAILY 01/31 1000 AC 02/01 PO 0809 Ramelteon 8 MG AT BEDTIME 01/31 2200 AC 01/31 PO 2230 Sertraline HCl 25 MG DAILY 01/31 1600 AC 02/01 PO 02/02 1001 0810 Sevelamer Carbonate 1,600 MG TID 01/31 1000 AC 02/01 PO 0809 Tamsulosin HCl 0.4 MG DAILY 01/31 1000 AC 02/01 PO 0809 Ticagrelor 90 MG BID 01/31 1000 AC 02/01 PO 0808 Trazodone HCl 150 MG QPM 01/31 2200 AC 01/31 PO 2228 Results Last 48 Hrs of Labs/Mics: Laboratory Tests 02/01/17 0614: Anion Gap 14, Estimated GFR 12 L, BUN/Creatinine Ratio 10.6, Phosphorus 6.2 H, CBC w Diff NO MAN DIFF REQ, RBC 3.68 L, MCV 78.9 L, MCH 26.4 L, RDW 13.3, MPV 7.4, Gran % 59.6, Lymphocytes % 26.1, Monocytes % 10.5 H, Eosinophils % 3.0, Basophils % 0.8, Absolute Granulocytes 3.4, Absolute Lymphocytes 1.5, Absolute Monocytes 0.6, Absolute Eosinophils 0.2, Absolute Basophils 0, PUBS MCHC 33.5 01/31/17 1006: Troponin I 0.51 *H 01/31/17 0356: Anion Gap 14, Estimated GFR 13 L, BUN/Creatinine Ratio 10.9, Glucose 112 H, Calcium 8.1 L, Total Bilirubin 0.5, AST 12 L, ALT 27, Alkaline Phosphatase 73, Troponin I 0.50 *H, Yoo-V-Qxswwfepsti Pept 19252 H, Total Protein 6.0 L, Albumin 3.3 L, Globulin 2.7, Albumin/Globulin Ratio 1.2, TSH 0.031 L, Free T4 1.86, PT 11.3, INR 1.08, APTT 32, CBC w Diff NO MAN DIFF REQ, RBC 3.64 L, MCV 80.0, MCH 26.3 L, RDW 13.4, MPV 6.4 L, Gran % 53.8, Lymphocytes % 31.4, Monocytes % 11.0 H, Eosinophils % 3.3, Basophils % 0.5, Absolute Granulocytes 3.3, Absolute Lymphocytes 1.9, Absolute Monocytes 0.7 H, Absolute Eosinophils 0.2, Absolute Basophils 0, PUBS MCHC 32.9 L Microbiology 01/31 811 URINE ROUT: Legionella Antigen - COMP 01/31 811 URINE ROUT: Streptococcus pneumoniae Antigen (M - COMP Recent Imaging Studies: Chest x-ray: Hypoexpanded lungs. Small pleural effusions with basilar airspace opacities which favor atelectasis, although pneumonia not excluded. Assessment/Plan Assessment/Plan Assessment: 1. Diabetes mellitus 2. Chronic kidney disease 3. CAD, status post multiple stents 4. Chest discomfort with mild troponin elevation, possible recent non-ST elevation NM versus demand ischemia 5. LVEF 50-55 percent with hypokinetic apex on echocardiogram 6. Acute on chronic diastolic heart failure Plan: * Lasix to be held today as per nephrology * If okay with nephrology, would discharge on a low dose of oral Lasix to avoid recurrence of CHF. Continue telemetry? Yes
--- NOTE | 2017-02-01 13:14 | PN- Psychiatry ---
See Addendum Assessment/Plan Impression: Identifying Info: 67-year-old male presents to [facility] emergency department on 01/31/17 with 3 days of progressive shortness of breath and admitted to medicine. He currently resides with his signifcant other. SUBJECTIVE "I'm miserable... I wish I could take a shower." Pt reports some disapointment r/t changes in diet and not taking a shower in a few days but no other complaints at this time. Brief ROS Gait: Not observed Sleep: Improved but interupted r/t waking up to void Appetite: Adequate OBJECTIVE Mental Status Exam Presentation/Appearance: Cooperative with evaluation. Hospital garb. Sitting in chair. Bearded. Orientation: Oriented to self, place, and situation, month but not day Sensorium: Awake and alert Eye contact: Appropriate Affect: Full range congruent with stated mood Mood: "Pretty good" Depression: Denies Anxiety: Improved today, no periods of difficulty breathing Thought Content:. - Endorsed chronic passive SI yesterday, none today. No plan or intent. States and also believes they will not kill themselves. - Denies HI, AH/VH, PI. - Denies Hopeless/Helpless Thoughts Thought Process: Linear Speech: Normal tone and rate Judgment: Intact Insight: Intact Cognition: Memory: Grossly intact ASSESSMENT 67-year-old male presents with increased anxiety in the context of shortness of breath and several medical illnesses that could contribute to this feeling. Today presents with some improvement in mood and anxiety. Of note no passive SI today. Will likely see continued improvement as medical condition continues to improve. Differential diagnosis Anxiety disorder due to another medical condition Rule out unspecified bipolar spectrum disorder Suggestion: 1. Continue psychotropic medication as currently ordered, advance Zoloft to 50 mg on 02/03/2017. 2. Once disposition is known we will schedule the patient with [facility] outpatient psychiatry for intake appointment. Thank you for including psychiatry in this case we'll continue to follow. Subjective Subjective: (as above) Objective Last 24 Hrs of Vital Signs/I&O Current Medications Sig/Julissa Start time Last Medication Dose Route Stop Time Status Admin Acetaminophen 650 MG Q6P PRN 01/31 0530 AC PO Acetaminophen 1,000 MG Q6P PRN 01/31 0530 AC IV Albuterol Sulfate 3 ML Q4P PRN 01/31 2300 AC 04/24 INH 1955 Alprazolam 0.25 MG TID PRN 01/31 0545 AC PO 02/07 0544 Amlodipine Besylate 10 MG DAILY 01/31 1000 AC 02/01 PO 0809 Aspirin Buffered 81 MG DAILY 01/31 1000 AC 02/01 PO 0809 Atorvastatin Calcium 80 MG 1700 01/31 1700 AC 01/31 PO 1711 Budesonide/ 2 PUF BID 01/31 1000 AC 02/01 Formoterol Fumarate INH 0808 Clonidine 0.1 MG BID 01/31 1000 AC 02/01 PO 0809 Dextrose 25 GM ONCE ONE 02/01 0900 DC IV 02/01 0901 Folic Acid 1 MG DAILY 01/31 1000 AC 02/01 PO 0809 Furosemide 40 MG DAILY 02/01 1000 DC 02/01 PO 0809 Furosemide 40 MG ONCE ONE 01/31 1530 DC 01/31 IV 01/31 1531 1712 Heparin Sodium 5,000 UNIT Q8 01/31 0600 AC 02/01 (Porcine) SC 0640 Insulin Aspart 0 TIDAC 01/31 0800 AC SC Insulin Detemir 31 UNITS BID 01/31 2200 AC 02/01 SC 0814 Isosorbide 60 MG DAILY 01/31 1000 AC 02/01 Mononitrate PO 0808 Levothyroxine Sodium 0.225 MG DAILY AC 02/02 0700 CAN PO Levothyroxine Sodium 0.2 MG DAILY AC 02/02 0700 AC PO Levothyroxine Sodium 0.025 MG DAILY AC 02/02 0700 AC PO Levothyroxine Sodium 0.274 MG DAILY AC 01/31 0700 DC 02/01 PO 0640 Metoprolol Tartrate 100 MG DAILY 01/31 1000 AC 02/01 PO 0809 Ramelteon 8 MG AT BEDTIME 01/31 2200 AC 01/31 PO 2230 Sertraline HCl 25 MG DAILY 01/31 1600 AC 02/01 PO 02/02 1001 0810 Sevelamer Carbonate 1,600 MG TID 01/31 1000 AC 02/01 PO 0809 Tamsulosin HCl 0.4 MG DAILY 01/31 1000 AC 02/01 PO 0809 Ticagrelor 90 MG BID 01/31 1000 AC 02/01 PO 0808 Trazodone HCl 150 MG QPM 01/31 2200 AC 01/31 PO 2228 Laboratory Tests 02/01/17 0614: Anion Gap 14, Estimated GFR 12 L, BUN/Creatinine Ratio 10.6, Phosphorus 6.2 H, CBC w Diff NO MAN DIFF REQ, RBC 3.68 L, MCV 78.9 L, MCH 26.4 L, RDW 13.3, MPV 7.4, Gran % 59.6, Lymphocytes % 26.1, Monocytes % 10.5 H, Eosinophils % 3.0, Basophils % 0.8, Absolute Granulocytes 3.4, Absolute Lymphocytes 1.5, Absolute Monocytes 0.6, Absolute Eosinophils 0.2, Absolute Basophils 0, PUBS MCHC 33.5 Vital Signs Date Time Temp Pulse Resp B/P B/P Pulse O2 O2 Flow FiO2 Mean Ox Delivery Rate 02/01 0905 98.2 81 22 120/54 96 Nasal 2.0L Cannula 02/01 0809 97.8 90 22 146/79 02/01 0809 97.8 90 22 146/79 02/01 0809 97.8 90 22 146/79 02/01 0809 97.8 90 22 146/79 02/01 0808 97.8 90 22 146/79 02/01 0800 Nasal 2.0L Cannula 02/01 0050 97.8 90 22 146/79 98 Nasal Cannula 02/01 0000 Nasal 2.0L Cannula 01/31 2245 Nasal 2.0L Cannula 01/31 2233 84 138/78 01/31 1633 96.8 78 22 124/61 96 Nasal 2.0L Cannula 01/31 1600 95 Nasal 2.0L Cannula 01/31 1303 96.8 75 20 113/66 94 Nasal 2.0L Cannula Intake & Output 02/01 1600 02/01 0800 02/01 0000 Intake Total 480 570 Output Total 1600 1100 Balance -1120 -530 Intake, IV 20 Intake, Oral 480 550 Number 0 Bowel Movements Output, Urine 1600 1100 Patient 227 lb Weight Weight Chair scale Measurement Method
[2017-02-01 15:30] VITALS: BP 124/78
--- NOTE | 2017-02-01 15:43 | Patient Discharge Instructions ---
Discharge Instructions General Discharge Information You were seen/treated for: Dyspnea Acute on chronic diastolic heart failure Chronic kidney disease Anxiety disorder Demand ischemia Watch for these problems: Difficulty breathing Chest pain or discomfort Nausea or vomiting Lightheadedness or cold sweat Confusion or tiredness Special Instructions: Please follow up with your primary care physician Dr. Lakeisha Benedict within one week of discharge. Please follow up with your machinist/machine builder Dr. Trevor Lee for your heart within one week of discharge. Please follow up with your workforce planner Dr. Nikolay Mclaughlin for your kidneys within one week of discharge. Please follow up at the [facility] at [address] [place] [address] on 02/14/17 at 8:15 AM with Ting Tripathi LCSW. Diet Recommended Diet: Diabetic, Heart Healthy, 1500 ml fluid restriction Activity Full Activity/No Limits: Yes Acute Coronary Syndrome Inclusion Criteria At DC or during hospital stay patient has or had the following: ACS DIAGNOSIS No Discharge Core Measures Meds if any: Prescribed or Continued at Discharge Meds if any: NOT Prescribed or Continued at Discharge Congestive Heart Failure Inclusion Criteria At DC or during hospital stay patient has or had the following: CHF DIAGNOSIS Yes Discharge Core Measures Meds if any: Prescribed or Continued at Discharge SHERRELL/ARB for EF <40% No (LVEF estimated at 50-55%) Meds if any: NOT Prescribed or Continued at Discharge Cerebrovascular accident Inclusion Criteria At DC or during hospital stay patient has or had the following: CVA/TIA Diagnosis No Discharge Core Measures Meds if any: Prescribed or Continued at Discharge Meds if any: NOT Prescribed or Continued at Discharge Venous thromboembolism Inclusion Criteria VTE Diagnosis No VTE Type NONE VTE Confirmed by (Test) NONE Discharge Core Measures - Per Current guidelines, there needs to be overlap - treatment for the first 5 days of Warfarin therapy. - If discharged on Warfarin prior to 5 days of - overlap therapy, the patient will need to be - assessed for post discharge needs including - *Post discharge parental anticoagulation - *Warfarin and/or parental anticoagulation education - *Follow up date to check INR post discharge At least 5 days overlap therapy as Inpatient No Meds if any: Prescribed or Continued at Discharge Note: Overlap Therapy is Warfarin and Anticoagulant Meds if any: NOT Prescribed or Continued at Discharge
[2017-02-01] MEDS ORDERED: ROZEREM8 M1 PO (15:50)
[2017-02-01] MEDS ORDERED: ZOLOFT50 M1 PO (15:52)
--- NOTE | 2017-02-01 16:44 | PN- Att Addend ---
Attending MD Review Statement Attending Statement Attending MD Statement: examined this patient, discuss w/resident/PA/MANAGER RESEARCH, agreed w/resident/PA/MANAGER RESEARCH, reviewed EMR data (avail), discussed w/nursing, discussed w/ case mgmt Attending Assessment/Plan: Laboratory Tests 02/01/17 0614: Anion Gap 14, Estimated GFR 12 L, BUN/Creatinine Ratio 10.6, Phosphorus 6.2 H, CBC w Diff NO MAN DIFF REQ, RBC 3.68 L, MCV 78.9 L, MCH 26.4 L, RDW 13.3, MPV 7.4, Gran % 59.6, Lymphocytes % 26.1, Monocytes % 10.5 H, Eosinophils % 3.0, Basophils % 0.8, Absolute Granulocytes 3.4, Absolute Lymphocytes 1.5, Absolute Monocytes 0.6, Absolute Eosinophils 0.2, Absolute Basophils 0, PUBS MCHC 33.5 Vital Signs Date Time Temp Pulse Resp B/P B/P Pulse O2 O2 Flow FiO2 Mean Ox Delivery Rate 02/01 1530 97.9 75 18 124/78 96 Nasal Cannula 02/01 1411 96 Nasal 2.0L Cannula 02/01 0905 98.2 81 22 120/54 96 Nasal 2.0L Cannula 02/01 0809 97.8 90 22 146/79 02/01 0809 97.8 90 22 146/79 02/01 0809 97.8 90 22 146/79 02/01 0809 97.8 90 22 146/79 02/01 0808 97.8 90 22 146/79 02/01 0800 Nasal 2.0L Cannula 02/01 0050 97.8 90 22 146/79 98 Nasal Cannula 02/01 0000 Nasal 2.0L Cannula 01/31 2245 Nasal 2.0L Cannula 01/31 2233 84 138/78 Patient seen and examined at bedside. Discussed with patient the care plan. Patient is being started on Zoloft per psychiatry recommendation as well as Rozerem for sleep. Patient will be discharged home and we have decreased his levothyroxine dose to 225 g daily given his suppressed TSH. 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 Patient will follow-up with psychiatry post discharge for adjustment of his medications for anxiety. Patient was also counseled about fluid restriction to 1-1/2 L a day and was also consult on sodium restriction. Patient does understand the importance of fluid restriction and sodium restriction in his diet. Possible discharge today if his diarrhea resolves.
== END 2017-02-01 19:14 ==
LOC: ERH 03:26 → ERHI 04:55 → 1NO 04:55 → ENRESERV 05:55 → CANRESERV 06:13 → ENRESERV 06:13 → ERHI 08:31 → ENRESERV 11:26 → 1NO 13:06 → ENPENDDIS 02-01 16:10 → 1NO 02-01 19:14
PROVIDERS: Internal Medicine Infectious Disease; Pediatrics; ADMIT Internal Medicine
DX: I13.2 Hypertensive heart and chronic kidney disease with heart failure and with stage 5 chronic kidney disease, or end stage renal disease (principal); I50.33 Acute on chronic diastolic (congestive) heart failure; N17.9 Acute kidney failure, unspecified; I25.10 Atherosclerotic heart disease of native coronary artery without angina pectoris; E03.9 Hypothyroidism, unspecified; E78.5 Hyperlipidemia, unspecified; G47.33 Obstructive sleep apnea (adult) (pediatric); N40.0 Benign prostatic hyperplasia without lower urinary tract symptoms; F41.9 Anxiety disorder, unspecified; E11.22 Type 2 diabetes mellitus with diabetic chronic kidney disease; N18.6 End stage renal disease; E11.40 Type 2 diabetes mellitus with diabetic neuropathy, unspecified; Z79.4 Long term (current) use of insulin
CPT/HCPCS: 1NP; 82436; 87070; 87449; 87450; 93005; 93010; 96372; 96374; 99232; 99233; G0378; J0131; J1644; J1940; J3490

== ENCOUNTER 2017-02-20 02:53 | Inpatient (IN) | payer OTHER, MEDICARE ==
[~2017-02-20] VITALS: Ht 177.8 cm; Wt 99.8 kg
[~2017-02-20 02:53] MED LIST changes: +ROZEREM8 M1 PO; +SYNTHROID200 MCG PO; +SYNTHROID25 MCG PO; +ZOLOFT50 M1 PO
--- NOTE | 2017-02-20 02:54 | NUR ---
PT BIBA C/O 2/10 CHEST PAIN UNDERNEATH LEFT BREAST AND SLIGHT SHORTNESS OF BREATH. PT HAS EXTENSIVE CARDIAC HISTORY (STENTS), COPD, ACUTE KIDNEY FAILURE. PT IS GOING TO START DIALYSIS, FISTULA IN LEFT ARM. PT WEARS 2L NC AT BASELINE. PT RECIEVED 324MG ASPIRIN AND 2 SL NITRO BY EMS, PT REPORTS NO RELIEF FROM S/S.
--- NOTE | 2017-02-20 03:09 | NUR ---
AT BEDSIDE FOR PT EVAL
--- NOTE | 2017-02-20 03:17 | ED CARDIAC/CP/PALPITATIONS ---
History of Present Illness General Chief Complaint: Chest Pain Stated Complaint: BIBA, CP Source: patient, old records, EMS Exam Limitations: no limitations Vital Signs & Intake/Output Vital Signs & Intake/Output Vital Signs Date Time Temp Pulse Resp B/P B/P Pulse O2 O2 Flow FiO2 Mean Ox Delivery Rate 02/20 0338 97.6 84 20 132/62 02/20 0307 93 Nasal 2.0L Cannula 02/20 025 97.6 84 20 132 94 Nasal 2.0L Cannula Allergies Coded Allergies: morphine (Mild, LOOPY 01/18/17) hydromorphone (DEPRESSED RESPIRATIONS 01/18/17) Uncoded Allergies: CONTRAST DYE (CONTRAINDICATED 01/11/17) Reconcile Medications Albuterol Sulfate (Proair Hfa) 90 MCG HFA.AER.AD 2 PUF INH Q4-6 PRN PRN SHORTNESS OF BREATH Alprazolam (Xanax) 0.5 MG TABLET 1 TAB PO BID PRN ANXIETY Amlodipine Besylate (Norvasc) 10 MG TABLET 1 TAB PO DAILY HTN (Reported) Aspirin (Ecotrin*) 81 MG TABLET.DR 1 TAB PO DAILY CAD (Reported) Atorvastatin Calcium (Lipitor) 80 MG TABLET 1 TAB PO DAILY CHOLESTEROL ( Reported) Budesonide/Formoterol Fumarate (Symbicort 160-4.5 Mcg Inhaler) 160 MCG-4.5 MCG/ ACTUATION HFA.AER.AD 2 PUF INH BID COPD Rinse your mouth after using inhaler. Clonidine HCl 0.1 MG TABLET 1 TAB PO BID BP (Reported) Folic Acid 1 MG TABLET 1 TAB PO DAILY SUPPLEMENT (Reported) Insulin Glargine,Hum.rec.anlog (Lantus Solostar) 100 UNIT/1 ML INSULN.PEN 62 UNITS SC AT BEDTIME DIABETES (Reported) Isosorbide Mononitrate (Isosorbide Mononitrate ER) 60 MG TAB.ER.24H 1 TAB PO DAILY CAD Levothyroxine Sodium (Synthroid) 200 MCG TABLET 0.2 MG PO DAILY AC THYROID Levothyroxine Sodium (Synthroid) 25 MCG TABLET 0.025 MG PO DAILY AC THYROID Liraglutide (Victoza 3-Zeus) 0.6 MG/0.1 ML PEN.INJCTR 1.8 MG PO DAILY DIABETES (Reported) Metoprolol Tartrate 100 MG TABLET 1 TAB PO DAILY HEART (Reported) Ramelteon (Rozerem) 8 MG TABLET 1 TAB PO AT BEDTIME SLEEP HELP Sertraline HCl (Zoloft) 50 MG TABLET 1 TAB PO DAILY ANXIETY Take 1/2 tab tomorrow (02/02), followed by 1 tab daily (02/03-) Sevelamer Carbonate (Renvela) 800 MG TABLET 2 TAB PO TID ESRD (Reported) Tamsulosin HCl 0.4 MG CAP.ER.24H 1 CAP PO DAILY PROSTATE (Reported) Ticagrelor (Brilinta) 90 MG TABLET 1 TAB PO BID CAD (Reported) Trazodone HCl 150 MG TABLET 1 TAB PO QPM SLEEP (Reported) Triage Note: PT BIBA C/O 2/10 CHEST PAIN UNDERNEATH LEFT BREAST AND SLIGHT SHORTNESS OF BREATH. PT HAS EXTENSIVE CARDIAC HISTORY (STENTS), COPD, ACUTE KIDNEY FAILURE. PT IS GOING TO START DIALYSIS, FISTULA IN LEFT ARM. PT WEARS 2L NC AT BASELINE. PT RECIEVED 324MG ASPIRIN AND 2 SL NITRO BY EMS, PT REPORTS NO RELIEF FROM S/S. Triage Nurses Notes Reviewed? yes Onset: 5 hours Duration: hour(s):, constant, continues in ED Timing: recent history Quality/Severity: severe, pressure Location: central Radiation: no radiation Activities at Onset: rest Prior Chest Pain/Card Workup: cardiac cath, echocardiography, heart attack Modifying Factors: Improves With: nitroglycerin, rest. Nitro Today/Relief: 0.4 mg x 2, provided by EMS, provided by ED Aspirin Today: 81 mg x 4, provided by EMS Associated Symptoms: shortness of breath, weakness HPI: 5 hours prior to admission patient developed recurrent severe heavy substernal chest pain nonradiating constant worse with exertion associated with shortness of breath leg swelling. He denies fever chills nausea vomiting diarrhea abdominal pain headache dysuria rash bleeding. Past History Travel History Traveled to [place] past 21 day No Medical History Any Pertinent Medical History? 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 Yes Review of Systems Review of Systems Constitutional: Reports: no symptoms. EENTM: Reports: no symptoms. Respiratory: Reports: see HPI, short of breath. Cardiovascular: Reports: see HPI, chest pain, edema, peripheral edema. GI: Reports: no symptoms. Genitourinary: Reports: no symptoms. Musculoskeletal: Reports: no symptoms. Skin: Reports: no symptoms. Neurological/Psychological: Reports: no symptoms. Hematologic/Endocrine: Reports: no symptoms. Immunologic/Allergic: Reports: no symptoms. All Other Systems: Reviewed and Negative Physical Exam Physical Exam General Appearance: well developed/nourished, alert, awake, anxious, moderate distress, obese Head: atraumatic, normal appearance Eyes: Bilateral: normal appearance, PERRL, EOMI. Ears, Nose, Throat: normal pharynx, normal ENT inspection, hearing grossly normal, moist mucus membranes Neck: normal inspection, supple, full range of motion, no midline tenderness Respiratory: normal breath sounds, chest non-tender, no respiratory distress, quiet respiration, lungs clear Cardiovascular: regular rate/rhythm, normal peripheral pulses, norml femoral pulses equa Peripheral Pulses: 4+ carotid (R), 4+ carotid (L) Gastrointestinal: normal bowel sounds, soft, non-tender, no organomegaly Back: normal inspection, normal range of motion, no vertebral tenderness Extremities: normal capillary refill, normal range of motion, pedal edema, no ligament instability Neurologic/Psych: no motor/sensory deficits, awake, alert, oriented x 3, normal gait, normal mood/affect, medical i d sales II-XII nml as tested Reflexes: 2+: bicep (R), bicep (L). Skin: intact, normal color, warm/dry Lymphatic: no anterior cervical юлия Core Measures ACS in differential dx? Yes ASA ordered for poss ACS? Yes-ordered Severe Sepsis Present: No Septic Shock Present: No Progress Differential Diagnosis: AMI, CHF/pulm edema, costochondritis, hyperkalemia, pneumonia Plan of Care: Orders Procedure Date/time Status Regular Diet 05/14 B Active Patient Data 02/21 524 Active OXYGEN SETUP (GEN) 02/20 422 Active Saline Lock 02/20 422 Active Admit to inpatient 02/20 422 Active Vital Signs 02/20 422 Active Activity/Ambulation 02/20 422 Active Code Status 02/20 422 Active Intake & Output 02/20 339 Active TROPONIN LEVEL 02/21 316 Complete MAGNESIUM 02/21 316 Complete COMPREHENSIVE METABOLIC PANEL 02/21 316 Complete CBC WITHOUT DIFFERENTIAL 02/21 316 Complete B-TYPE NATRIURETIC PEP (BNP) 02/21 316 Complete EKG 02/20 254 Active Laboratory Tests 02/20/17 0329: Anion Gap 14, Estimated GFR 14 L, BUN/Creatinine Ratio 8.9, Glucose 73, Calcium 7.1 L, Magnesium 2.1, Total Bilirubin 0.6, AST 13 L, ALT 14 L, Alkaline Phosphatase 73, Troponin I 0.32 *H, Ifo-U-Ojotrgjfpsr Pept 48163 H, Total Protein 6.0 L, Albumin 3.4 L, Globulin 2.6, Albumin/Globulin Ratio 1.3, CBC w Diff NO MAN DIFF REQ, RBC 3.65 L, MCV 78.9 L, MCH 26.3 L, RDW 14.3, MPV 7.3 L, Gran % 68.8, Lymphocytes % 19.5 L, Monocytes % 9.4 H, Eosinophils % 1.8, Basophils % 0.5, Absolute Granulocytes 3.8, Absolute Lymphocytes 1.1 L, Absolute Monocytes 0.5, Absolute Eosinophils 0.1, Absolute Basophils 0, PUBS MCHC 33.4 Diagnostic Imaging: Viewed by Me: Radiology Read. Discussed w/RAD: Radiology Read. CXR Impression: no acute abnormality Initial ED EKG: normal axis, normal intervals, normal p-waves, normal QRS complex, normal sinus rhythm, nonspecific ST T wave chg Prior EKG: unchanged Rhythm Strip: normal sinus rhythm Departure Departure Time of Disposition: 356 Disposition: STILL A PATIENT Condition: Stable Clinical Impression Primary Impression: CHF (congestive heart failure) Qualifiers: Congestive heart failure type: unspecified congestive heart failure type Congestive heart failure chronicity: acute on chronic Qualified Code: I50.9 - Heart failure, unspecified Secondary Impressions: Chest pain Qualifiers: Chest pain type: chest pain due to myocardial ischemia Ischemic chest pain type: stable angina pectoris Qualified Code: I20.8 - Other forms of angina pectoris Elevated troponin ESRD (end stage renal disease) Referrals: CARLITA PAGE DO (PCP/Family) Departure Forms: Customer Survey General Discharge Information Admission Note Spoke With: R[facility]ELAEZ [facility] Documentation of Exam: Documentation of any treatments & extenuating circumstances including Concerns Regarding Discharge (functional status, medication knowledge or non-compliance, living conditions, etc.) that warrant an admission rather than observation: Cardiac monitoring serial lab exam serial EKG cardiology evaluation medication adjustment physical therapy continuing care discharge planning Critical Care Note Critical Care Note Critical Care Time: non-applicable
--- NOTE | 2017-02-20 03:29 | NUR ---
BLOOD OBTAINED AND SENT TO LAB -[facility]
--- NOTE | 2017-02-20 03:33 | RADIOLOGY REPORT ---
EXAMINATION: CHEST 1 VIEW CLINICAL INFORMATION: Chest pain, shortness of breath. COMPARISON: January 31, 2017. TECHNIQUE: An AP view of the chest is provided. FINDINGS: The cardiac silhouette is not enlarged. The mediastinal and hilar contours are unremarkable. There are neither pleural effusions nor pneumothoraces. In the setting of low lung volumes, there is streaky bibasilar opacification. The osseous structures are stable. Partially visualized is cervical spine fusion hardware. IMPRESSION: Limited evaluation secondary to low lung volumes. There is streaky bibasilar opacification which could be accentuated due to low lung volumes.
--- NOTE | 2017-02-20 03:38 | NUR ---
PT MEDICATED WITH 40MG LASIX, 2.5MG LOPRESSOR, 1G OFFIRMEV, AND 1SL NITRO PER EMAR
--- NOTE | 2017-02-20 03:39 | NUR ---
PT BP 132/62, O2 SAT 93% ON 2L
[2017-02-20 03:42] LABS: ABSOLUTE BASOPHIL COUNT 0 /CUMM (0.0-0.2); ABSOLUTE EOSINOPHIL COUNT 0.1 /CUMM (0.0-0.7); ABSOLUTE GRANULOCYTE CT 3.8 /CUMM (1.4-6.5); ABSOLUTE LYMPH COUNT 1.1 /CUMM (1.2-3.4); ABSOLUTE MONOCYTE COUNT 0.5 /CUMM (0.10-0.60); BASOPHIL % 0.5 % (0.0-2.0); EOSINOPHIL % 1.8 % (0-5); GRANULOCYTE % 68.8 % (42.2-75.2); HEMATOCRIT 28.8 % (42-52); MEAN CORPUSCULAR HGB 26.3 PG (27.0-31.0); MEAN CORPUSCULAR HGB CONC 33.4 G/DL (33.0-37.0); MEAN CORPUSCULAR VOLUME 78.9 FL (80.0-94.0); MEAN PLATELET VOLUME 7.3 FL (7.4-10.4); PLATELET COUNT 245 /CUMM (130-400); RBC DISTRIBUTION WIDTH 14.3 % (11.5-14.5); RED BLOOD CELL CT 3.65 /CUMM (4.70-6.10); WHITE BLOOD CELL COUNT 5.5 /CUMM (4.8-10.8)
--- NOTE | 2017-02-20 04:13 | NUR ---
CRITICAL TEST RESULTS [id number] JOVANNIJACKIEALFRED HerreraE 67 M TESTS AND RESULTS: TROPONIN 0.32 Results received and read back by: JEANNETTE MARIN Results received date and time: 02/20/17 0413 The following provider was notified of the results, and read the results back: Notified date and time: 02/20/17 at 0418
--- NOTE | 2017-02-20 04:38 | NUR ---
SECOND IV EST #20 IN RIGHT CEPHALLIC
--- NOTE | 2017-02-20 05:05 | History & Physical ---
BUNNY ELDRIDGE,[facility] 02/20/17 0504: General Information and HPI MD Statement: I have seen and personally examined DEEPIKA BRANDT and documented this H&P. The patient is a 67 year old M who presented with a patient stated chief complaint of [chest tightness]. Source of Information: patient Exam Limitations: no limitations History of Present Illness: Patient is a 67 year old gentleman with PMH of CAD s/p mutiple stent placements, T2DM, peripheral neuropathy, CKD stage 5, who presented with chest tightness and pressure that started 2:30 am last during the past night. Patient was sleeping at that time, he reports that he suddenly woke up and realized he has feeling of heaviness in the middle of the chest. Pain was 2/10, pressure like, constant with no radiation not associated with diaphoresis, dizziness, palpitation. Pain alleviates with sitting up and leaning forward. Patient also reports worsening leg edema for 2 days. Patient denies any exertional dyspnea or worsening chest pain on ambulation. Reports chronic feeling of SOB, however attributes it to anxiety and SO2 does not decrease. He is on 2L O2 per NC at home. He was recently discharged from [facility] January 2017, after an episode of SOB and chest tightness of similar nature. Troponin was elevated at that time which was thought to be due to the CKD or possible demand ischemia. Cardiac catheterization was not considered due to risk of worsening renal function. Also pharmacologic nuclear stress was not indicated as it was highly unlikely to provide additional information (patient had a cardiac cath. with stents placed 3 months prior to that episode). Allergies/Medications Allergies: Coded Allergies: morphine (Mild, LOOPY 01/18/17) hydromorphone (DEPRESSED RESPIRATIONS 01/18/17) Uncoded Allergies: CONTRAST DYE (CONTRAINDICATED 01/11/17) Home Med list Albuterol Sulfate (Proair Hfa) 90 MCG HFA.AER.AD 2 PUF INH Q4-6 PRN PRN SHORTNESS OF BREATH Alprazolam (Xanax) 0.5 MG TABLET 1 TAB PO BID PRN ANXIETY Amlodipine Besylate (Norvasc) 10 MG TABLET 1 TAB PO DAILY HTN (Reported) Aspirin (Ecotrin*) 81 MG TABLET.DR 1 TAB PO DAILY CAD (Reported) Atorvastatin Calcium (Lipitor) 80 MG TABLET 1 TAB PO DAILY CHOLESTEROL ( Reported) Budesonide/Formoterol Fumarate (Symbicort 160-4.5 Mcg Inhaler) 160 MCG-4.5 MCG/ ACTUATION HFA.AER.AD 2 PUF INH BID COPD Rinse your mouth after using inhaler. Clonidine HCl 0.1 MG TABLET 1 TAB PO BID BP (Reported) Folic Acid 1 MG TABLET 1 TAB PO DAILY SUPPLEMENT (Reported) Insulin Glargine,Hum.rec.anlog (Lantus Solostar) 100 UNIT/1 ML INSULN.PEN 62 UNITS SC AT BEDTIME DIABETES (Reported) Isosorbide Mononitrate (Isosorbide Mononitrate ER) 60 MG TAB.ER.24H 1 TAB PO DAILY CAD Levothyroxine Sodium (Synthroid) 200 MCG TABLET 0.2 MG PO DAILY AC THYROID Levothyroxine Sodium (Synthroid) 25 MCG TABLET 0.025 MG PO DAILY AC THYROID Liraglutide (Victoza 3-Zeus) 0.6 MG/0.1 ML PEN.INJCTR 1.8 MG PO DAILY DIABETES (Reported) Metoprolol Tartrate 100 MG TABLET 1 TAB PO DAILY HEART (Reported) Ramelteon (Rozerem) 8 MG TABLET 1 TAB PO AT BEDTIME SLEEP HELP Sertraline HCl (Zoloft) 50 MG TABLET 1 TAB PO DAILY ANXIETY Take 1/2 tab tomorrow (02/02), followed by 1 tab daily (02/03-) Sevelamer Carbonate (Renvela) 800 MG TABLET 2 TAB PO TID ESRD (Reported) Tamsulosin HCl 0.4 MG CAP.ER.24H 1 CAP PO DAILY PROSTATE (Reported) Ticagrelor (Brilinta) 90 MG TABLET 1 TAB PO BID CAD (Reported) Trazodone HCl 150 MG TABLET 1 TAB PO QPM SLEEP (Reported) Past History Travel History Traveled to [place] past 21 day No Medical History Neurological: NONE EENT: NONE Cardiovascular: CAD, hypertension, 6 CARDIAC STENTS Respiratory: COPD Gastrointestinal: constipation Hepatic: NONE Renal: chronic kidney disease, L ARM AVF PLACED 01/17/17 Musculoskeletal: chronic back pain, ?BACK PROBLEM REQUIRE SX Psychiatric: NONE Endocrine: diabetes Blood Disorders: NONE 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 Ambulation: cane IADLs Independent: shopping, housework, finances, food prep, telephone, transportation , medication admin. Review of Systems Review of Systems Constitutional: Denies: chills, fever, malaise, weakness, unexplained weight loss. EENTM: Reports: no symptoms. Cardiovascular: Reports: chest pain, edema. Denies: orthopena, palpitations, peripheral edema, syncope. Respiratory: Reports: cough (chronic), sputum production (increased recently). Denies: orthopnea, wheezing. GI: Denies: abdominal pain, changes in stool. Genitourinary: Denies: frequency, nocturia. Musculoskeletal: Reports: no symptoms. Skin: Reports: no symptoms. Neurological/Psychological: Reports: anxiety. Hematologic/Endocrine: Reports: no symptoms. Exam & Diagnostic Data Last 24 Hrs of Vital Signs/I&O Vital Signs Date Time Temp Pulse Resp B/P B/P Pulse O2 O2 Flow FiO2 Mean Ox Delivery Rate 02/20 0546 97.4 82 18 139/75 93 Nasal 2.0L Cannula 02/20 0338 97.6 84 20 132/62 02/20 0307 93 Nasal 2.0L Cannula 02/20 0254 97.6 84 20 132/62 94 Nasal 2.0L Cannula Intake & Output 02/20 0800 02/20 0000 02/19 1600 Intake Total 400 Output Total 625 Balance -225 Intake, IV 400 Output, Urine 625 Patient 107.955 kg Weight Weight Reported by Patient Measurement Method Physical Exam General Appearance Alert, Oriented X3, Cooperative, No Acute Distress Skin No Significant Lesion Skin Temp/Moisture Exam: Warm/Dry Sepsis Skin Exam (color): Normal for Ethnicity HEENT Atraumatic, EOMI, Mucous Membr. moist/pink, pupils round and reactive to light Neck Supple, No JVD Cardiovascular Regular Rate, Normal S1, Normal S2, No Murmurs Lungs Clear to Auscultation, Normal Air Movement Abdomen Normal Bowel Sounds, Soft, No Tenderness Neurological Normal Speech, Strength at 5/5 X4 Ext, Normal Tone, Sensation Intact Extremities 2+ pitting edema Bilaterally Vascular Normal Pulses, Pulses Symmetrical Last 24 Hrs of Labs/Angus: Laboratory Tests 02/20/17 0329: Anion Gap 14, Estimated GFR 14 L, BUN/Creatinine Ratio 8.9, Glucose 73, Calcium 7.1 L, Magnesium 2.1, Total Bilirubin 0.6, AST 13 L, ALT 14 L, Alkaline Phosphatase 73, Troponin I 0.32 *H, [id number] Pept 50376 H, Total Protein 6.0 L, Albumin 3.4 L, Globulin 2.6, Albumin/Globulin Ratio 1.3, CBC w Diff NO MAN DIFF REQ, RBC 3.65 L, MCV 78.9 L, MCH 26.3 L, RDW 14.3, MPV 7.3 L, Gran % 68.8, Lymphocytes % 19.5 L, Monocytes % 9.4 H, Eosinophils % 1.8, Basophils % 0.5, Absolute Granulocytes 3.8, Absolute Lymphocytes 1.1 L, Absolute Monocytes 0.5, Absolute Eosinophils 0.1, Absolute Basophils 0, PUBS MCHC 33.4 Microbiology 02/20 0650 BLOOD: Blood Culture - RECD 02/20 0635 BLOOD: Blood Culture - RECD 02/20 0630 URINE ROUT: Urine Culture - RECD Assessment/Plan Assessment: Patient is a 67 year old gentleman with PMH of CAD s/p stent placement, T2DM, peripheral neuropathy, CKD stage 5 (after a recent cardiac cath, fistula recently created in anticipation of possible need for dialysis), who presented with chest tightness and pressure. Problem list and plan: Chest tightness, elevated troponin, rule out ACS * constant pain, 2/10, midsternal, not positional. similar to last admission in January 2017, stress test was not done as the patient recently had cath. and stent placed. * EKG unremarkable, troponin 0.32 (lower than last troponin at discharge on ) - etiologies: demand ischemia, NSTEMI, CKD. * Follow up serial troponin and EKG x2 s and troponins were followed. * Place consult cardiology clinical nutrition manager * Continue metoprolol 100 mg PO daily, aspirin 81 mg PO daily, atorvastatin 80 mg PO daily, Brillinta 90 mg PO BID, amlodipine 10 mg PO daily and Imdur 60 mg PO daily COPD - stable * on 2L O2 at home * reports SOB off and on, attributes to anxiety, SO2 stays in normal range * O2 supplementation as needed * TRC/Nebs * smoking cessation counseling CKD stage 5 - stable * patient follows up with Dr. Jernigan. * Etiology is thought to be the underlying diabetes as well as the SABRINA superimposed by IV contrast during cardiac cath. * nephrology consult * monitor kidney function DM * Accuchecks TID AC HS * Levemir 25 units twice a day * Novolog sliding scale Anemia - stable * H/H 9.6/28.8, MCV 78.9, serum iron 38, TIBC 229, ferritin 158 * most likely due to chronic kidney disease Hypothyroidism * Continue levothyroxine 0.2574 mg MILES noncompliant with CPAP * Continue Symbicort BPH * Continue Flomax 0.4 mg daily Anxiety * Continue trazodone 150 mg daily Regular diet Mild pain pathway Full code As Ranked By This Provider Problem List: 1. Hypothyroidism 2. Diabetes mellitus 3. Elevated troponin 4. CKD (chronic kidney disease) 5. Chest pain Qualifiers Chest pain type: chest pain due to myocardial ischemia Ischemic chest pain type : stable angina pectoris Qualified Code: I20.8 - Other forms of angina pectoris 6. COPD (chronic obstructive pulmonary disease) 7. Anxiety Core Measures/Miscellaneous Acute Coronary Syndrome ACS Diagnosis: No Cerebrovascular Accident CVA/TIA Diagnosis: No Congestive Heart Failure CHF Diagnosis: No Venous Thromboembolism VTE Risk Factors: Acute medical illness, Age > 40 [facility] prophylaxis d/t: VTE low risk, No contraindications No VTE Pharm Prophylaxis d/t: VTE low risk, No contraindications VTE Diagnosis: No VTE Type: NONE VTE Confirmed by (Test): NONE Severe Sepsis Severe Sepsis Present: No Septic Shock Septic Shock Present: No Miscellaneous Documentation Attending Case Discussed With: IRENE KERN MD Primary Care Physician: CARLITA PAGE DO Patient sees these Specialists nephrology, Dr. Jernigan cardiology, Dr. Lee Level of Patient Care: Telemetry CHUCHO FONSECA 02/20/17 0548: Resident Review Statement Resident Statement: examined this patient, discussed with engineer internship, agreed with engineer internship Other Findings: This is a 67-year-old man with past medical history of coronary artery disease status post stent placement (Diagnol and RAMI),CKD stage 4 managed with peritoneal dialysis ( previosuly) however recently received a fistula placement with plan for hemodialysis ( in near future), obstructive sleep apnea noncompliant with cpap, type 2 diabetes mellitus complicated by peripheral neuropathy, COPD with last admission 01/31/2017 for acute on chronic hypoxic respiratory failure, SABRINA on CKD, elevated troponins probably secondary to stage IV CKD versus and NSTEMI in the setting of chest pain with mild troponin elevation. Echo performed in January 2017 showed focal hypokinesia of the distal septum and apical segments with LV EF of 50-55%.Patient was found to have acute hypoxemic respiratory failure secondary to anxiety, with restrictive pattern on the pulmonary function test. This time he was brought in with chief complain of chest pain underneath the left breast and mild shortness of breath. Pain started on the night of the admission, it was pressure-like pain 2 out of 10, moderate intensity, did not move anywhere, did not change with exertion, he said he felt better when he was in sitting position, no association with respiration. At baseline he uses 2 L of oxygen. He was found to have chronic kidney disease which was being managed with peritoneal dialysis however the plan was now up to get hemodialysis.He follows up with Dr jernigan as his nehprologist. Patient received 324 mg aspirin and 2 sublingual nitroglycerin by the EMS. He did not report much relief in his symptoms. Left arm fistula was placed 01/17/2017. vitals on admission temperature of 97.6, pulse of 84, respiration of 20, blood pressure 132/62. He was 93% saturating on 2 L of nasal cannula. White count of 5.5 ,H/H of 9.6/28.8, platelet of 245. Chemistries potassium of 3.5, sodium of 141, BUN/creatinine 39/4.4% (baseline is 4.4 in last few months, last noted to be 2.8 in February 2016, 3.6 in October 2016). Initial set of troponin positive at 0.32, proBNP elevated at 16,200. Previously also had elevated troponins alongwith elevated proBNP ( last troponin after trending up in january 2017 was 0.51) [place] [address]. Chest x-ray showed streaky bibasilar opacification with low lung volumes. EKG : NSR, 80, with old PA, no new St tave changes. Problem list along with assessment and plan #1 Elevated troponin in the Setting of CKD with mild pressure like CP, no new EKG changes and lower than previous admission troponin. Most likely secondary to CKD, but we will need to rule out ACS, NSTEMI Pain present at exertion as well as rest, not worsening, no change with inspiration, however does feel little better when sitting up. It is to be noted that patient has elevated troponins even on previous admission in january 2017, and they peaked at 0.51, however they were not trended further, prior ot that he is s/p stent placement after transferred in Oct 2016 at [facility]. * Trend troponins and EKG. * Cardiology consult with Dr. Calixto in the a.m. * Normally the patient follows with Dr. Lee. * Patient has a recent echocardiogram that showed focal hypokinesia of the distal septum and apical septum with an EF of 50-55% * Patient has h/o acute on chronic diastolic dysfunction and has b/l pedal edema and some crackles, hiwever xray doesnt show congestion. * Ct ASA, Brillinta, Statin. #2 CKD stage IV. * Baseline creatinine 4.4, current creatinine 4.8. * Most likely prerenal. * Patient has a AV fistula placed in January 2017. * Patient follows with Dr jernigan as OP. * Nephrology consult in a.m. * Further decision for dialysis as per nephrology. #3 Anemia - borderline microcytic * H/H 9.6/28.8 ,MCV 78.9,serum iron 38 mildly low, tibc 229 mildyl low, ferritin 158 - normal ( january 2017)possible secondary to anemia of chronic disease, in the setting of renal failure, and some iron deficiency. #4 Coronary artery disease status post stent placement. * Patient received 2 pills of 325 mg aspirin en route and nitroglycerin for chest pain. * Continue aspirin, Brylinta 90 mg twice a day, Lipitor 80 mg daily, isosorbide 60 mg daily, Toprol 100 mg daily. #5 Obstructive sleep apnea noncompliant with CPAP. * Continue Symbicort at home dosage. #6 BPH. * Continue Flomax 0.4 mg daily. #7 anxiety. * Continue trazodone 150 mg daily at bedtime. #8 hypothyroidism. * Continue levothyroxine 0.2574 mg. #9 hypertension. * Continue the gabapentin , clonidine 0.1 mg twice a day. #10 History of diabetes mellitus. * Continue fingerstick monitoring. * He is on Lantus 62 units at bedtime. * Hold all his antidiabetic medication. * Continue Levemir at 20% of the home dosage. * We will continue Levemir 25 units twice a day. * NovoLog sliding scale. DVT prophylaxis with heparin. Consistent carbohydrate Diet. Patient is full code. Mild Pain pathway with po tylenol for mild and iv tylenol for moderate and percocet 1 tab Q6P for severe PP. IRENE KERN MD 02/20/17 1443: Attending MD Review Statement Attending Statement Attending MD Statement: examined this patient, discuss w/resident/PA/DOLLY OPERATOR, agreed w/resident/PA/DOLLY OPERATOR, reviewed EMR data (avail), discussed with nursing, reviewed images, amended to note Attending Assessment/Plan: The patient is a 67 yo male with h/o CAD (s/p stents), COPD, DM2 (with neuropathy), CKD5 (s/p recent fistula placement) who presented on the morning of admission with substernal chest heaviness that came on at rest at 2:30 am that woke him from sleep. In the ED he received ASA and NTG with no relief. The patient states pain feels better when sitting up and leaning forward. Was noted to have elevated troponin I (however was less than on prior admit and patient has chronic renal failure). BNP was also elevated, however patient denies dyspnea (is on chronic oxygen 2L) and had no radiographic CHF and normal pulse oximetry on his usual level of oxygen. He had noted some increasing leg swelling x 2 days with pain behind left knee. Physical Exam: VS: T 97.4, P 84, R 20, BP 132/62, PO 94% 2L HEENT: eyes- PERRLA, EOMI kim- moist mucosa w/o lesions Neck: no JVD or bruits Chest: diminished BS, otherwise clear Cor: RRR, nl S1, S2 w/o murm or rub Abd: BS+, soft, NT Ext: tr-1+ edema bilaterally (at time of my exam), + tenderness left popliteal and distal thigh w/o cords palpable; + bruit in arm/fistula Neuro: alert & oriented x 3, non-focal exam except diminished sensory in distal LE Labs/Tests- as above Impression/Plan: #Chest Pain- as above, sudden onset of substernal chest heaviness at rest early this morning. Pain did not respond to NTG in ED. EKG w/o ischemic changes. Does feel better sitting up and leaning forward. Troponin I elevated (however less than prior admit and patient has CKD). Concern this could represent ACS. Other possibilities include uremic pericarditis with renal failure. Muscular also possibility. Plan: Admit to telemetry. Check serial troponin I levels to see if any "bump" occurs. Cardiology consult - Dr. Belcher (for Dr. Lee). Continue Metoprolol/ASA/Atorvastatin/Imdur/Brilinta/Amlodipine. Check ESR and ECHO (for pericarditis) along with uric acid level. #Chronic Hypoxic Respiratory Failure- patient on chronic oxygen at home and not requiring any greater amount at present. Presume COPD as cause. Plan: Continue oxygen and follow pulse oximetry. #COPD- has been stable. Plan: Continue Albuterol/Symbicort, etc. #CKD- stage 5- Creatinine is stable. Has fistula anticipating eventual dialysis. Followed by Dr. Jernigan. Plan: Continue to follow as per Nephrology. #Essential HTN- BP stable on meds. Plan: Continue Metoprolol/Amlodipine/Clonidine. #DM2- Sugars have been stable. Plan: Continue insulin/Victosa and follow sugars. #BPH- on Tamsulosin and stable. Plan: Continue Tamsulosin. #Anxiety/Depression- stable on Xanax, Trazodone and Sertraline. Plan: Continue meds #Hypothyroid- on Levothyroxine. Clinically euthyroid. Plan: Continue Levothyroxine. #Hypothyroid- on Levothyroxine. Clinically euthyroid. Plan: Continue Levothyroxine.
--- NOTE | 2017-02-20 06:07 | NUR ---
HOUSE STAFF AT BEDSIDE
--- NOTE | 2017-02-20 06:32 | NUR ---
URINE TRIO SENT BY THIS [facility]
--- NOTE | 2017-02-20 06:37 | NUR ---
PT GOING TO ROOM 174-1
--- NOTE | 2017-02-20 07:04 | NUR ---
PT BG [id number], HOUSE STAFF PAGER NUMBER [phone] MADE AWARE. PER HOUSE STAFF THEY WILL BE PUTTING ORDERS IN
--- NOTE | 2017-02-20 07:11 | NUR ---
RECEIVED REPORT ON PT FROM NURSE MACHADO AND SHE INFORMED ME THAT HOUSE STAFF WAS NOTIFIED OF PT'S BLD SUGAR AND DEXTROSE ORDERED. VITALS TAKEN AND PT OFFERED APPLE JUICE SINCE HE CAN NOT TOLERATE ORANGE JUICE OR MILK. PT IS NOT SYMPTOMATIC AND VITALS STABLE NOW. NURSE CHEEK CALLED AND WAS GIVEN REPORT. PT MEDICATED WITH MORNING MEDS EXCEPT FOR THE DEXTROSE ORDER. JACKSON OUT TO DR. POOL AND INFORMED OF PT'S CONDITION AND THAT HE IS DRINKING AND NOT SYMPTOMATIC AND PER HER HOLD OFF AND RECHECK PT'S BS AT 8AM AND NOTIFY HER AND WE WILL DECIDE THEN WHETHER TO ADMINISTER DEXTROSE OR NOT. PT AWARE OF POC AND NURSE CHEEK TO BE INFORMED
--- NOTE | 2017-02-20 08:00 | NUR ---
RECEIVED FROM ER: A 67 YEAR OLD MALE ADMITTED WITH CHF. SETTLED INTO BED. PLACED ON MONITOR NSR IN 80'S. ON 2L NC (BASELINE) SATURATION = 96%. PATIENT REPORTING AT HOME HAD BEEN FEELING CHEST HEAVINESS/SOB INCREASED. REVIEWED POC WITH PATIENT. SEE NURSING ASSESSMENT FLOWSHEETS FOR FURTHER DOCUMENTATION. CALL CHOI IN REACH.
[2017-02-20 08:04] VITALS: BP 148/80
--- NOTE | 2017-02-20 11:23 | ULTRASOUND REPORT ---
EXAMINATION: US VENOUS ULTRASOUND WITH DOPPLER LOWER EXTREMITY, RIGHT CLINICAL INFORMATION: Right leg and calf pain. Leg tenderness on exam. COMPARISON: Bilateral leg venous ultrasound 11/07/2014. TECHNIQUE: Ultrasound of the deep veins is performed from the hip to the calf with compression sonography and color and pulse Doppler assessment. Spectral analysis with color-flow imaging is performed. FINDINGS: There is normal venous compression and respiratory variation and augmented flow throughout the deep veins. The visualized common femoral vein, superficial femoral vein, profunda femoral vein, popliteal vein, and the trifurcation region shows no evidence of deep venous thrombosis. There is no significant popliteal fossa cyst. If the patient's symptoms persist, followup ultrasound in 5 days 7 days might be of value to exclude proximal propagation from a non-visualized calf vein. IMPRESSION: No DVT demonstrated in the right lower extremity.
--- NOTE | 2017-02-20 13:59 | Admission Certification ---
Admission Certification Certification Statement - As attending physician, I certify that at the time of - admission, based on clinical presentation, severity of - symptoms, need for further diagnostic testing and - therapeutic interventions, and risk of adverse outcomes - without in-hospital treatment, in my clinical assessment, - this patient requires an acute hospital stay for a minimum - of two nights or longer. I have also considered psychsocial - factors such as support system, advanced age, financial - issues, cognitive issues, and failed out-patient treatments, - past re-admission history, safety of patient, and lack of - compliance as applicable. Specific rationale supporting this admission is: The patient presents with substernal chest pressure and elevated troponin I level (?acute coronary syndrome) and elevated BNP. Needs telemetry admission to trend troponin levels. Cardiology consult Dr. Calixto (for Dr. Lee), ECHO, ESR, monitor chest pain.
[2017-02-20 15:00] VITALS: BP 140/74
--- NOTE | 2017-02-20 15:00 | NUR ---
PATIENT REPORTING 3/10 CHEST PAIN, ACHE FEELING. BP 140/74, P 80, 93% ON 3L NC. NOTIFIED [employer] DR REYES AND DR Chino LLANOS. [employer] ORDERED TROPONIN AND EKG, AND ORDERED TO GIVE PO PRN TYLENOL. WILL CONTINUE TO MONITOR.
--- NOTE | 2017-02-20 15:05 | Cons- Cardiology ---
General Information and HPI Consulting Request Date of Consult: 02/20/17 Requested By: BENIGNO ELDRIDGE,JOSE LUIS Reason for Consult: CHF and positive troponin in a 67-year-old man with known coronary artery disease and chronic kidney disease. Source of Information: patient, old records Exam Limitations: no limitations History of Present Illness: The patient is a 67-year-old man who has known diabetes, hypertension, coronary artery disease with multiple interventions in the past. He also has chronic kidney disease stage V and is being prepared for dialysis. He has been here twice in the last month for chest pain and elevated troponins and shortness of breath. Most recent admission was 01/31/2017. On that admission his troponin peaked at 0.51. On previous admission of 01/24/2017 his troponin peaked at 0.84 , and finally in October he had a peak troponin of 2.6. On his last admission he was discharged with the diagnosis of acute on chronic diastolic heart failure. On his October ER visit he was transferred from the ER to [facility] for intervention; the patient states he ended up with a 3 or 4 stents at that time in addition to previous stenting. He is not sure of the details. The patient has an AV fistula in the left arm but it is not ready for dialysis at this time. The patient was admitted with some chest pain which he describes as upper sternal discomfort in the middle of the night also associated with some shortness of breath. He also has had some edema recently. He is not apparently on any diuretics at home. Allergies/Medications Allergies: Coded Allergies: morphine (Mild, LOOPY 01/18/17) hydromorphone (DEPRESSED RESPIRATIONS 01/18/17) Uncoded Allergies: CONTRAST DYE (CONTRAINDICATED 01/11/17) Home Med List: Albuterol Sulfate (Proair Hfa) 90 MCG HFA.AER.AD 2 PUF INH Q4-6 PRN PRN SHORTNESS OF BREATH Alprazolam (Xanax) 0.5 MG TABLET 1 TAB PO BID PRN ANXIETY Amlodipine Besylate (Norvasc) 10 MG TABLET 1 TAB PO DAILY HTN (Reported) Aspirin (Ecotrin*) 81 MG TABLET.DR 1 TAB PO DAILY CAD (Reported) Atorvastatin Calcium (Lipitor) 80 MG TABLET 1 TAB PO DAILY CHOLESTEROL ( Reported) Budesonide/Formoterol Fumarate (Symbicort 160-4.5 Mcg Inhaler) 160 MCG-4.5 MCG/ ACTUATION HFA.AER.AD 2 PUF INH BID COPD Rinse your mouth after using inhaler. Clonidine HCl 0.1 MG TABLET 1 TAB PO BID BP (Reported) Folic Acid 1 MG TABLET 1 TAB PO DAILY SUPPLEMENT (Reported) Furosemide (Lasix) 40 MG TABLET 80 MG PO DAILY diuresis Insulin Glargine,Hum.rec.anlog (Lantus Solostar) 100 UNIT/ML (3 ML) INSULN.PEN 15 UNITS SQ BID DIABETES Isosorbide Mononitrate (Isosorbide Mononitrate ER) 60 MG TAB.ER.24H 1 TAB PO DAILY CAD Levothyroxine Sodium (Synthroid) 200 MCG TABLET 0.2 MG PO DAILY AC THYROID Levothyroxine Sodium (Synthroid) 25 MCG TABLET 0.025 MG PO DAILY AC THYROID Liraglutide (Victoza 3-Zeus) 0.6 MG/0.1 ML PEN.INJCTR 1.8 MG PO DAILY DIABETES (Reported) Metoprolol Tartrate 100 MG TABLET 1 TAB PO DAILY HEART (Reported) Ramelteon (Rozerem) 8 MG TABLET 1 TAB PO AT BEDTIME SLEEP HELP Sertraline HCl (Zoloft) 50 MG TABLET 1 TAB PO DAILY ANXIETY Take 1/2 tab tomorrow (02/02), followed by 1 tab daily (02/03-) Sevelamer Carbonate (Renvela) 800 MG TABLET 2 TAB PO TID ESRD (Reported) Tamsulosin HCl 0.4 MG CAP.ER.24H 1 CAP PO DAILY PROSTATE (Reported) Ticagrelor (Brilinta) 90 MG TABLET 1 TAB PO BID CAD (Reported) Trazodone HCl 150 MG TABLET 1 TAB PO QPM SLEEP (Reported) Current Medications: Current Medications Sig/Julissa Start time Last Medication Dose Route Stop Time Status Admin Acetaminophen 650 MG Q6P PRN 02/20 0600 AC PO Acetaminophen 0 .STK-MED ONE 02/21 336 DC IV Acetaminophen 1,000 MG ONCE ONE 02/20 330 DC 02/20 IV 02/20 Aspirin Buffered 81 MG DAILY 02/20 1000 AC 02/20 PO 1115 Atorvastatin Calcium 80 MG 1700 02/20 1700 AC PO Clonidine 0.1 MG BID 02/20 1000 AC 02/20 PO 1115 Dextrose 25 GM ONCE ONE 02/20 0715 DC IV 02/20 0716 Furosemide 0 .STK-MED ONE 02/20 0336 DC IV Furosemide 40 MG ONCE ONE 02/20 0330 DC 02/20 IV 02/20 0331 0338 Heparin Sodium 0 .STK-MED ONE 02/20 0730 DC (Porcine) .ROUTE Heparin Sodium 5,000 UNIT Q8 02/20 0600 AC 02/20 (Porcine) SC 1454 Insulin Detemir 25 UNITS BID 02/20 1000 AC 02/20 SC 1128 Levothyroxine Sodium 0.2 MG DAILY AC 02/20 0700 AC 02/20 PO 0735 Metoprolol Tartrate 0 .STK-MED ONE 02/20 0336 DC IV Metoprolol Tartrate 2.5 MG ONCE ONE 02/20 0330 DC 02/20 IV 02/20 0331 0338 Multivitamins 1 TAB DAILY 02/20 1000 AC 02/20 PO 1115 Nitroglycerin 0 .STK-MED ONE 02/20 0336 DC SL Nitroglycerin 0.4 MG ONCE ONE 02/20 0330 DC 02/20 SL 02/20 0331 0338 Polyethylene Glycol 17 GM DAILY PRN 02/20 0915 AC PO Senna 187 MG AT BEDTIME 02/20 2200 AC PO Senna 187 MG DAILY 02/20 1000 DC PO Tamsulosin HCl 0.4 MG DAILY 02/20 1000 AC 02/20 PO 1115 Ticagrelor 90 MG BID 02/20 1000 AC 02/20 PO 1114 Trazodone HCl 150 MG QPM 02/20 2200 AC PO Review of Systems Review of Systems: He has no other complaints in the review of systems. Past History Travel History Traveled to [place] past 21 day No Medical History Blood Transfusion Hx: No Neurological: NONE EENT: NONE Cardiovascular: CAD, hypertension, 6 CARDIAC STENTS Respiratory: COPD Gastrointestinal: constipation Hepatic: NONE Renal: chronic kidney disease, L ARM AVF PLACED 01/17/17 Musculoskeletal: chronic back pain, ?BACK PROBLEM REQUIRE SX Psychiatric: NONE Endocrine: diabetes Blood Disorders: NONE Cancer(s): THYROID CA WORK[employer]/Reproductive: NONE Surgical History Surgical History: CARDIAC STENTS X 6 THYROIDECTOMY LEFT LEG FX REPAIR ELBOW FX REPAIR SPINAL FUSION C4-C5 Family History Relations & Conditions If Any: FATHER FH: heart disease Psychosocial History Services at Home: None Smoking Status: Former Smoker (40 years 4p/d, quit 4 yrs ago) ETOH Use: occasional use Illicit Drug Use: denies illicit drug use Functional Ability ADLs Independent: dressing, eating, toileting, bathing. Ambulation: cane IADLs Independent: shopping, housework, finances, food prep, telephone, transportation , medication admin. Exam & Diagnostic Data Vital Signs and I&O Vital Signs Date Time Temp Pulse Resp B/P B/P Pulse O2 O2 Flow FiO2 Mean Ox Delivery Rate 02/20 1451 Nasal 3.0L Cannula 02/20 1115 74 144/70 02/20 0804 97.8 84 22 148/80 96 Nasal 2.0L Cannula 02/20 0800 96 Nasal 2.0L Cannula 02/20 0715 97.6 66 21 146/79 96 Nasal 2.0L Cannula 02/20 0546 97.4 82 18 139/75 93 Nasal 2.0L Cannula 02/20 0338 97.6 84 20 132/62 02/20 0307 93 Nasal 2.0L Cannula 02/20 0254 97.6 84 20 132/62 94 Nasal 2.0L Cannula Intake & Output 02/20 1600 02/20 0800 02/20 0000 02/19 1600 02/19 0800 02/19 0000 Intake Total 400 Output Total 625 Balance -225 Intake, IV 400 Output, Urine 625 Patient 227 lb Weight Weight Chair scale Measurement Method Physical Exam: The patient is a late middle-aged overweight male in no acute distress HEENT exam is normal Chest reveals bibasilar crackles about one third of the way up Heart reveals regular rhythm and no murmurs Extremities reveal 1-2+ edema of the ankles and lower legs Labs/Angus Results: Laboratory Tests 02/20 02/20 0945 0329 Chemistry Sodium (137 - 145 mmol/L) 141 Potassium (3.5 - 5.1 mmol/L) 3.5 Chloride (98 - 107 mmol/L) 105 Carbon Dioxide (22 - 30 mmol/L) 22 Anion Gap (5 - 16) 14 BUN (9 - 20 mg/dL) 39 H Creatinine (0.7 - 1.2 mg/dL) 4.4 H Estimated GFR (>60 ml/min) 14 L BUN/Creatinine Ratio (7 - 25 %) 8.9 Glucose (65 - 99 mg/dL) 73 Uric Acid (3.5 - 8.5 mg/dL) 9.3 H Calcium (8.4 - 10.2 mg/dL) 7.1 L Magnesium (1.6 - 2.3 mg/dL) 2.1 Total Bilirubin (0.2 - 1.3 mg/dL) 0.6 AST (17 - 59 U/L) 13 L ALT (21 - 72 U/L) 14 L Alkaline Phosphatase (< 127 U/L) 73 Troponin I (<0.11 ng/ml) 0.24 *H 0.32 *H [id number]-[id number] Pept (<125 pg/mL) 70633 H Total Protein (6.3 - 8.2 g/dL) 6.0 L Albumin (3.5 - 5.0 g/dL) 3.4 L Globulin (1.9 - 4.2 gm/dL) 2.6 Albumin/Globulin Ratio (1.1 - 2.2 %) 1.3 Hematology CBC w Diff NO MAN DIFF REQ WBC (4.8 - 10.8 /CUMM) 5.5 RBC (4.70 - 6.10 /CUMM) 3.65 L Hgb (14.0 - 18.0 G/DL) 9.6 L Hct (42 - 52 %) 28.8 L MCV (80.0 - 94.0 FL) 78.9 L MCH (27.0 - 31.0 PG) 26.3 L RDW (11.5 - 14.5 %) 14.3 Plt Count (130 - 400 /CUMM) 245 MPV (7.4 - 10.4 FL) 7.3 L Gran % (42.2 - 75.2 %) 68.8 Lymphocytes % (20.5 - 51.1 %) 19.5 L Monocytes % (1.7 - 9.3 %) 9.4 H Eosinophils % (0 - 5 %) 1.8 Basophils % (0.0 - 2.0 %) 0.5 Absolute Granulocytes (1.4 - 6.5 /CUMM) 3.8 Absolute Lymphocytes (1.2 - 3.4 /CUMM) 1.1 L Absolute Monocytes (0.10 - 0.60 /CUMM) 0.5 Absolute Eosinophils (0.0 - 0.7 /CUMM) 0.1 Absolute Basophils (0.0 - 0.2 /CUMM) 0 PUBS MCHC (33.0 - 37.0 G/DL) 33.4 ESR Westergren (0 - 10 MM) 74 H Diagnostic Data EKG Results EKG shows sinus rhythm at 80 with probable old anteroseptal myocardial infarction. There is no significant change from previous EKG. CXR Results PATIENT: DEEPIKA BRANDT PRESENT AGE: 67 PATIENT ACCOUNT NO: [id number] : 52 LOCATION: [facility] ORDERING PHYSICIAN: SANYA RUELAS MD SERVICE DATE: 02/20/17 EXAM TYPE: RAD - XRY-PORTABLE CHEST XRAY EXAMINATION: CHEST 1 VIEW CLINICAL INFORMATION: Chest pain, shortness of breath. COMPARISON: January 31, 2017. TECHNIQUE: An AP view of the chest is provided. FINDINGS: The cardiac silhouette is not enlarged. The mediastinal and hilar contours are unremarkable. There are neither pleural effusions nor pneumothoraces. In the setting of low lung volumes, there is streaky bibasilar opacification. The osseous structures are stable. Partially visualized is cervical spine fusion hardware. IMPRESSION: Limited evaluation secondary to low lung volumes. There is streaky bibasilar opacification which could be accentuated due to low lung volumes. DICTATED BY: IRENE DIAZ MD DATE/TIME DICTATED:02/20/17328 SYSTEM SUPPORT ANALYST:SAVANA DATE/TIME TRANSCRIBED:02/20/17328 CONFIDENTIAL, DO NOT COPY WITHOUT APPROPRIATE AUTHORIZATION. <Electronically signed in Other Vendor System> SIGNED BY: IRENE DIAZ MD 02/20/17 0333 Other Results CONCLUSIONS 1. Mild aortic sclerosis is present with no valvular stenosis or insufficiency. 2. Mitral leaflet thickening is present with moderate mitral insufficiency and moderate left atrial enlargement. 3. There is no significant pericardial fluid present. 4. The left ventricular chamber size is normal. There is focal hypokinesia of the distal septum and apical segments with an ejection fraction of 50-55%. 5. The right heart structures are grossly normal. Mild tricuspid insufficiency is present with minimal pulmonic insufficiency and no significant pulmonary hypertension. 6. Left ventricular diastolic dysfunction is present. Lilibeth Shine M.D. (Electronically Signed) Final Date: 25 January 2017 07:06 Assessment/Plan Assessment/Plan The patient is a 67-year-old man with extensive coronary artery disease, diabetes, end-stage renal disease, hypertension, dyslipidemia. He has been here 3 times in the past one month for chest pain and congestive heart failure and elevated troponins. He presents again with a similar presentation. On examination and chest x-ray he is in congestive heart failure (even though the chest x-ray was not read that way it is clearly congestive heart failure), and elevated troponin to 0.32 which has already decreased to 0.24. His BUN and creatinine are actually slightly lower than on his previous discharge. At the current time he is actually having some left-sided chest pain which is different from his previous admissions when he had upper sternal chest pain. He has not had any arrhythmias and his EKG doesn't show any acute changes. I recommend diuresing the patient with Lasix intravenously twice a day. I would repeat his chest x-ray tomorrow to see if there is clearing of his pulmonary edema. I would continue to trend his troponins. I would continue the rest of his medications. He should probably be discharged on a diuretic at the end of his stay. Nephrology should be consulted. Most likely he does not need further cardiac intervention but this will be decided by his further course. Copies To: Geo SHINE MD Consult Acknowledgment - Thank you for your consult request.
[2017-02-20 23:54] VITALS: BP 142/70
--- NOTE | 2017-02-21 06:24 | Event Note ---
Event Note Event Note: one set of blood cultures positve for gram postive cocci patient is afebrile, no white count,not septic or signs of infection. Plan : * will check morning labs. * Will hold off Antibiotics for now. * Ct to follow Cx ,most likely a contaminant.
--- NOTE | 2017-02-21 07:39 | NUR ---
0530 PT PRESENTED SLIGHTY CONFUSED AND FORGETTFUL, BS WAS 51, DELANEY HOLLIS MD AWARE AND 1 AMP OF DEXTROSE ORDERED AND ADMINISTERED. UPON RECHECK BS WAS 146. WILL CONTINUE TO MONITOR.
[2017-02-21 07:47] VITALS: BP 142/74
--- NOTE | 2017-02-21 08:10 | PN- Housestaff ---
Subjective Follow-up For: Chest pain Subjective: Seen and examined at bedside, seated comfortably. Reports that he had a good sleep after getting BZDZ. No longer reporting anxiety. Denies any chest pain, palpitation,shortness of breath,diaphoresis,focal neurological deficit,fever, chills,nausea, or vomiting. Acute o/n event of hypoglycemia is noted. Review of Systems Constitutional: Reports: no symptoms. Objective Last 24 Hrs of Vital Signs/I&O Vital Signs Date Time Temp Pulse Resp B/P B/P Pulse O2 O2 Flow FiO2 Mean Ox Delivery Rate 02/21 1655 98.3 85 20 134/74 97 Room Air 02/21 0902 82 142/74 02/21 0902 82 142/74 02/21 0853 97 Nasal 2.0L Cannula 02/21 0800 98 Nasal 2.0L Cannula 02/21 0747 98.1 82 20 142/74 95 Nasal 3.0L Cannula 02/21 0000 Nasal 3.0L Cannula 02/20 2354 99.0 78 20 142/70 97 Nasal Cannula 02/20 2201 81 158/82 Intake & Output 02/21 1600 02/21 0800 02/21 0000 Intake Total 300 490 Output Total 675 1500 1350 Balance -375 -1500 -860 Intake, IV 10 Intake, Oral 300 480 Number 2 Bowel Movements Output, Urine 675 1500 1350 Physical Exam General Appearance: Alert, Oriented X3, Cooperative Other Physical Findings: Skin No Significant Lesion Skin Temp/Moisture Exam: Warm/Dry Sepsis Skin Exam (color): Normal for Ethnicity HEENT Atraumatic, EOMI, Mucous Membr. moist/pink, pupils round and reactive to light Neck Supple, No JVD Cardiovascular Regular Rate, Normal S1, Normal S2, No Murmurs Lungs Clear to Auscultation, Normal Air Movement Abdomen Normal Bowel Sounds, Soft, No Tenderness Neurological Normal Speech, Strength at 5/5 X4 Ext, Normal Tone, Sensation Intact Extremities 2+ pitting edema Bilaterally Vascular Normal Pulses, Pulses Symmetrical Current Medications: Current Medications Sig/Julissa Start time Last Medication Dose Route Stop Time Status Admin Acetaminophen 1,000 MG Q6P PRN 02/20 2145 AC IV Acetaminophen 650 MG Q6P PRN 02/20 0600 AC 02/20 PO 1506 Alprazolam 0.25 MG ONCE ONE 02/21 1915 DC 02/21 PO 05/15 1916 1923 Alprazolam 0.5 MG BID PRN 02/20 1845 AC 02/20 PO 02/27 184 2202 Aspirin Buffered 81 MG DAILY 02/20 1000 AC 02/21 PO 0901 Atorvastatin Calcium 80 MG 1700 02/20 1700 AC 02/21 PO 1707 Clonidine 0.1 MG BID 02/20 1000 AC 02/21 PO 0902 Dextrose 25 GM ONCE ONE 02/21 0545 CAN PO 02/21 0546 Dextrose 25 GM ONCE ONE 02/21 0545 DC 02/21 IV 02/21 0546 0546 Furosemide 40 MG 7:30 AM, & 4:30 PM 02/21 0730 AC 02/21 IV 1708 Heparin Sodium 5,000 UNIT Q8 02/20 0600 AC 02/21 (Porcine) SC 1456 Insulin Aspart 0 TIDAC 02/21 1200 AC SC Insulin Detemir 15 UNITS BID 02/21 1000 AC 02/21 SC 1004 Insulin Detemir 25 UNITS BID 02/20 1000 DC 02/20 SC 2202 Levothyroxine Sodium 0.025 MG DAILY AC 02/21 0804 AC 02/21 PO 1004 Levothyroxine Sodium 0.2 MG DAILY AC 02/20 0700 AC 02/21 PO 0544 Multivitamins 1 TAB DAILY 02/20 1000 AC 02/21 PO 0901 Oxycodone/ 1 TAB Q6P PRN 02/20 2145 AC Acetaminophen PO Polyethylene Glycol 17 GM DAILY PRN 02/20 0915 AC PO Senna 187 MG AT BEDTIME 02/20 2200 AC 02/20 PO 2201 Sevelamer Carbonate 1,600 MG TIDPC 02/21 1300 DC PO Sevelamer Carbonate 1,600 MG WITH MEALS 02/21 1200 AC 02/21 PO 1707 Tamsulosin HCl 0.4 MG DAILY 02/20 1000 AC 02/21 PO 0902 Ticagrelor 90 MG BID 02/20 1000 AC 02/21 PO 0900 Trazodone HCl 150 MG QPM 02/20 2200 AC 02/20 PO 2201 Last 24 Hrs of Lab/Angus Results Last 24 Hrs of Labs/Mics: Laboratory Tests 02/21/17 1140: Troponin I 0.43 *H 02/21/17 0845: CBC w Diff NO MAN DIFF REQ, RBC 4.26 L, MCV 79.4 L, MCH 26.2 L, RDW 13.9, MPV 7.6, Gran % 65.1, Lymphocytes % 21.9, Monocytes % 10.4 H, Eosinophils % 2.2, Basophils % 0.4, Absolute Granulocytes 4.0, Absolute Lymphocytes 1.3, Absolute Monocytes 0.6, Absolute Eosinophils 0.1, Absolute Basophils 0, PUBS MCHC 33.0 02/21/17 0530: Anion Gap 16, Estimated GFR 14 L, BUN/Creatinine Ratio 9.8, Phosphorus 6.4 H, Magnesium 2.0, Iron 40 L, TIBC 285, % Saturation 14 L, Ferritin 94.8, Troponin I 0.31 *H 02/20/172049: Estimated GFR 14 L, BUN/Creatinine Ratio 9.3, Troponin I 0.30 *H [facility] 02/21 114 BLOOD: Blood Culture - RECD 02/21 114 BLOOD: Blood Culture - RECD Assessment/Plan Assessment: This is a 67 year old very pleasent gentleman with PMH of CAD s/p stent placement, T2DM, peripheral neuropathy, CKD stage 5 (after a recent cardiac cath , fistula recently created in anticipation of possible need for dialysis), presented with chest tightness and pressure. Problem list and plan: Chest tightness, elevated troponin, rule out ACS * Mild elevation of troponin with levels downtrending, Given patient's significant CKD, decreased troponin washout is expected. EKG unremarkable for any acute ischemic changes. Patient rcved BZDZP dose last night and report resolution of chest pain. Pt chest pain could most likely be anxiety related and less likely ACS. * Continue metoprolol 100 mg PO daily, aspirin 81 mg PO daily, atorvastatin 80 mg PO daily, Brillinta 90 mg PO BID, amlodipine 10 mg PO daily and Imdur 60 mg PO daily * Will continue to follow cardiology reccomendations COPD - stable * on 2L O2 at home * reports SOB off and on, attributes to anxiety, SO2 stays in normal range * O2 supplementation as needed * TRC/Nebs * smoking cessation counseling CKD stage 5 - stable * Etiology is thought to be the underlying diabetes as well as the SABRINA superimposed by IV contrast during cardiac cath. * Restarted Sevelemer and will continue furoseide diuresis of 80mg/day per nephro reccs (appreciated) DM * Accuchecks TID AC HS * Will decrease levemir to 15 bid * Novolog sliding scale Anemia - stable * H/H 9.6/28.8, MCV 78.9, serum iron 38, TIBC 229, ferritin 158 * most likely due to chronic kidney disease Hypothyroidism * Continue levothyroxine 0.2574 mg MILES noncompliant with CPAP * Continue Symbicort BPH * Continue Flomax 0.4 mg daily Anxiety * Continue trazodone 150 mg daily Regular diet Mild pain pathway Full code Problem List: 1. ESRD (end stage renal disease) Pain Ratin Pain Location: none Pain Goal: Remain pain free Pain Plan: per pain pathway Tomorrow's Labs & Rationales: BEP-CKD
--- NOTE | 2017-02-21 09:51 | Cons- Nephrology ---
General Information and HPI Consulting Request Date of Consult: 02/21/17 Requested By: FATOUMATA ELDRIDGE,LINDA Reason for Consult: CKD Source of Information: patient, old records Exam Limitations: no limitations History of Present Illness: 67 yr old WM w mult med problems including DM, HTN, severe CAD s/p mult PCIs, & advanced CKD admit yesterday w substernal chest pressure w/o radiation, SOB, diaphoresis, nausea, or vomiting. Similar admission last month but repeat cardiac cath deferred because of SABRINA risk. Known baseline Cr mid 4s in setting of hi grade proteinuria & retinopathy complicated by post cath/contrast ATN earlier this yr requiring course acute PD at [facility]. Had KAREY AVF created earlier in spring in anticipation future HD need. No current uremic sx. Denies SOB but has leg swelling. On ARB in past but no record of any recent CINTHIA interruption. Allergies/Medications Allergies: Coded Allergies: morphine (Mild, LOOPY 01/18/17) hydromorphone (DEPRESSED RESPIRATIONS 01/18/17) Uncoded Allergies: CONTRAST DYE (CONTRAINDICATED 01/11/17) Home Med List: Albuterol Sulfate (Proair Hfa) 90 MCG HFA.AER.AD 2 PUF INH Q4-6 PRN PRN SHORTNESS OF BREATH Alprazolam (Xanax) 0.5 MG TABLET 1 TAB PO BID PRN ANXIETY Amlodipine Besylate (Norvasc) 10 MG TABLET 1 TAB PO DAILY HTN (Reported) Aspirin (Ecotrin*) 81 MG TABLET.DR 1 TAB PO DAILY CAD (Reported) Atorvastatin Calcium (Lipitor) 80 MG TABLET 1 TAB PO DAILY CHOLESTEROL ( Reported) Budesonide/Formoterol Fumarate (Symbicort 160-4.5 Mcg Inhaler) 160 MCG-4.5 MCG/ ACTUATION HFA.AER.AD 2 PUF INH BID COPD Rinse your mouth after using inhaler. Clonidine HCl 0.1 MG TABLET 1 TAB PO BID BP (Reported) Folic Acid 1 MG TABLET 1 TAB PO DAILY SUPPLEMENT (Reported) Insulin Glargine,Hum.rec.anlog (Lantus Solostar) 100 UNIT/1 ML INSULN.PEN 62 UNITS SC AT BEDTIME DIABETES (Reported) Isosorbide Mononitrate (Isosorbide Mononitrate ER) 60 MG TAB.ER.24H 1 TAB PO DAILY CAD Levothyroxine Sodium (Synthroid) 200 MCG TABLET 0.2 MG PO DAILY AC THYROID Levothyroxine Sodium (Synthroid) 25 MCG TABLET 0.025 MG PO DAILY AC THYROID Liraglutide (Victoza 3-Zeus) 0.6 MG/0.1 ML PEN.INJCTR 1.8 MG PO DAILY DIABETES (Reported) Metoprolol Tartrate 100 MG TABLET 1 TAB PO DAILY HEART (Reported) Ramelteon (Rozerem) 8 MG TABLET 1 TAB PO AT BEDTIME SLEEP HELP Sertraline HCl (Zoloft) 50 MG TABLET 1 TAB PO DAILY ANXIETY Take 1/2 tab tomorrow (02/02), followed by 1 tab daily (02/03-) Sevelamer Carbonate (Renvela) 800 MG TABLET 2 TAB PO TID ESRD (Reported) Tamsulosin HCl 0.4 MG CAP.ER.24H 1 CAP PO DAILY PROSTATE (Reported) Ticagrelor (Brilinta) 90 MG TABLET 1 TAB PO BID CAD (Reported) Trazodone HCl 150 MG TABLET 1 TAB PO QPM SLEEP (Reported) Current Medications: Current Medications Sig/Julissa Start time Last Medication Dose Route Stop Time Status Admin Acetaminophen 1,000 MG Q6P PRN 02/20 2145 AC IV Acetaminophen 650 MG Q6P PRN 02/20 0600 AC 02/20 PO 1506 Alprazolam 0.5 MG BID PRN 02/20 1845 AC 02/20 PO 02/27 1844 2202 Aspirin Buffered 81 MG DAILY 02/20 1000 AC 02/21 PO 0901 Atorvastatin Calcium 80 MG 1700 02/20 1700 AC 02/20 PO 1658 Clonidine 0.1 MG BID 02/20 1000 AC 02/21 PO 0902 Dextrose 25 GM ONCE ONE 02/21 0545 CAN PO 02/21 0546 Dextrose 25 GM ONCE ONE 02/21 0545 DC 02/21 IV 02/21 0546 0546 Furosemide 40 MG 7:30 AM, & 4:30 PM 02/21 0730 AC 02/21 IV 0814 Furosemide 40 MG ONCE ONE 02/20 1515 DC 02/20 IV 02/20 1516 1658 Heparin Sodium 5,000 UNIT Q8 02/20 0600 AC 02/21 (Porcine) SC 0544 Insulin Aspart 0 TIDAC 02/21 1200 AC SC Insulin Detemir 15 UNITS BID 02/21 1000 AC SC Insulin Detemir 25 UNITS BID 02/20 1000 DC 02/20 SC 2202 Levothyroxine Sodium 0.025 MG DAILY AC 02/21 0804 AC PO Levothyroxine Sodium 0.2 MG DAILY AC 02/20 0700 AC 02/21 PO 0544 Multivitamins 1 TAB DAILY 02/20 1000 AC 02/21 PO 0901 Oxycodone/ 1 TAB Q6P PRN 02/20 2145 AC Acetaminophen PO Patient Medication 1 UNIT ONE NR 02/20 1600 DC Teaching ED 02/20 1630 Polyethylene Glycol 17 GM DAILY PRN 02/20 0915 AC PO Ramelteon 8 MG ONCE ONE 02/20 1845 DC 02/20 PO 02/20 1846 2202 Senna 187 MG AT BEDTIME 02/20 2200 AC 02/20 PO 2201 Senna 187 MG DAILY 02/20 1000 DC PO Tamsulosin HCl 0.4 MG DAILY 02/20 1000 AC 02/21 PO 0902 Ticagrelor 90 MG BID 02/20 1000 AC 02/21 PO 0900 Trazodone HCl 150 MG QPM 02/20 2200 AC 02/20 PO 2201 Review of Systems Review of Systems Constitutional: Reports: no symptoms. EENTM: Reports: no symptoms. Cardiovascular: Reports: chest pain. Respiratory: Reports: no symptoms. GI: Reports: no symptoms. Genitourinary: Reports: no symptoms. Musculoskeletal: Reports: no symptoms. Skin: Reports: no symptoms. Neurological/Psychological: Reports: no symptoms. Hematologic/Endocrine: Reports: no symptoms. Immunologic/Allergic: Reports: no symptoms. All Other Systems: Reviewed and Negative Past History Travel History Traveled to [place] past 21 day No Medical History Blood Transfusion Hx: No Neurological: NONE EENT: NONE Cardiovascular: CAD, hypertension, hyperlipidemia, 6 CARDIAC STENTS Respiratory: COPD Gastrointestinal: constipation Hepatic: NONE Renal: chronic kidney disease, L ARM AVF PLACED 01/17/17 Musculoskeletal: chronic back pain, ?BACK PROBLEM REQUIRE SX Psychiatric: NONE Endocrine: diabetes Blood Disorders: NONE Cancer(s): THYROID CA EDUCATION MANAGERS/Reproductive: NONE Surgical History Surgical History: CARDIAC STENTS X 6 THYROIDECTOMY LEFT LEG FX REPAIR ELBOW FX REPAIR SPINAL FUSION C4-C5 Family History Relations & Conditions If Any: FATHER FH: heart disease Relation not specified for: FH: diabetes mellitus FH: hypertension Psychosocial History Services at Home: None Smoking Status: Former Smoker (40 years 4p/d, quit 4 yrs ago) ETOH Use: occasional use Illicit Drug Use: denies illicit drug use Functional Ability ADLs Independent: dressing, eating, toileting, bathing. Ambulation: cane IADLs Independent: shopping, housework, finances, food prep, telephone, transportation , medication admin. 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[employer]) Exam & Diagnostic Data Vital Signs and I&O Vital Signs Date Time Temp Pulse Resp B/P B/P Pulse O2 O2 Flow FiO2 Mean Ox Delivery Rate 02/21 0902 82 142/74 02/21 0902 82 142/74 02/21 0853 97 Nasal 2.0L Cannula 02/21 0747 98.1 82 20 142/74 95 Nasal 3.0L Cannula 02/21 0000 Nasal 3.0L Cannula 02/20 2354 99.0 78 20 142/70 97 Nasal Cannula 02/20 2201 81 158/82 02/20 1600 96 Nasal 3.0L Cannula 02/20 1500 98.7 80 22 140/74 95 Nasal 3.0L Cannula 02/20 1451 Nasal 3.0L Cannula 02/20 1115 74 144/70 Intake & Output 02/21 1600 02/21 0400 02/20 1600 02/20 0400 02/19 1600 02/19 0400 Intake Total 490 360 400 Output Total 1500 1350 1525 Balance -1500 -860 -1165 400 Intake, IV 10 400 Intake, Oral 480 360 Output, Urine 1500 1350 1525 Patient 227 lb 238 lb Weight Weight Chair scale Reported by Patient Measurement Method Physical Exam General Appearance: well developed/nourished, no apparent distress, alert Head: atraumatic, normal appearance Eyes: Bilateral: normal appearance. Ears, Nose, Throat: normal ENT inspection Neck: normal inspection Respiratory: no respiratory distress, quiet respiration, decreased breath sounds (L base) Cardiovascular: regular rate/rhythm, friction rub (none) Gastrointestinal: soft, non-tender, no organomegaly Back: normal inspection Extremities: normal inspection (tr - 1+ legs), swelling (trace - 1+), + bruit KAREY AVF Neurologic/Psych: no motor/sensory deficits, awake, alert, oriented x 3, lead nurse II- XII nml as tested, no asterixis Skin: intact, normal color, warm/dry Lymphatic: no anterior cervical юлия, no axilary adenopathy Results Pertinent Lab Results: Laboratory Tests 02/21 02/21 02/20 02/20 02/20 0845 0530 2050 1510 0992 Chemistry Sodium (137 - 145 mmol/L) 142 Potassium (3.5 - 5.1 mmol/L) 3.9 Chloride (98 - 107 mmol/L) 105 Carbon Dioxide (22 - 30 mmol/L) 22 Anion Gap (5 - 16) 16 BUN (9 - 20 mg/dL) 41 H 41 H Creatinine (0.7 - 1.2 mg/dL) 4.2 H 4.4 H Estimated GFR (>60 ml/min) 14 L 14 L BUN/Creatinine Ratio (7 - 25 %) 9.8 9.3 Magnesium (1.6 - 2.3 mg/dL) 2.0 Troponin I (<0.11 ng/ml) 0.31 *H 0.30 *H 0.24 *H 0.24 *H Hematology CBC w Diff Pending WBC Pending RBC Pending Hgb Pending Hct Pending MCV Pending MCH Pending RDW Pending Plt Count Pending MPV Pending PUBS MCHC Pending ESR Westergren (0 - 10 MM) 74 H 02/20 0329 Chemistry Sodium (137 - 145 mmol/L) 141 Potassium (3.5 - 5.1 mmol/L) 3.5 Chloride (98 - 107 mmol/L) 105 Carbon Dioxide (22 - 30 mmol/L) 22 Anion Gap (5 - 16) 14 BUN (9 - 20 mg/dL) 39 H Creatinine (0.7 - 1.2 mg/dL) 4.4 H Estimated GFR (>60 ml/min) 14 L BUN/Creatinine Ratio (7 - 25 %) 8.9 Glucose (65 - 99 mg/dL) 73 Uric Acid (3.5 - 8.5 mg/dL) 9.3 H Calcium (8.4 - 10.2 mg/dL) 7.1 L Magnesium (1.6 - 2.3 mg/dL) 2.1 Total Bilirubin (0.2 - 1.3 mg/dL) 0.6 AST (17 - 59 U/L) 13 L ALT (21 - 72 U/L) 14 L Alkaline Phosphatase (< 127 U/L) 73 Troponin I (<0.11 ng/ml) 0.32 *H [id number] Pept (<125 pg/mL) 17892 H Total Protein (6.3 - 8.2 g/dL) 6.0 L Albumin (3.5 - 5.0 g/dL) 3.4 L Globulin (1.9 - 4.2 gm/dL) 2.6 Albumin/Globulin Ratio (1.1 - 2.2 %) 1.3 Hematology CBC w Diff NO MAN DIFF REQ WBC (4.8 - 10.8 /CUMM) 5.5 RBC (4.70 - 6.10 /CUMM) 3.65 L Hgb (14.0 - 18.0 G/DL) 9.6 L Hct (42 - 52 %) 28.8 L MCV (80.0 - 94.0 FL) 78.9 L MCH (27.0 - 31.0 PG) 26.3 L RDW (11.5 - 14.5 %) 14.3 Plt Count (130 - 400 /CUMM) 245 MPV (7.4 - 10.4 FL) 7.3 L Gran % (42.2 - 75.2 %) 68.8 Lymphocytes % (20.5 - 51.1 %) 19.5 L Monocytes % (1.7 - 9.3 %) 9.4 H Eosinophils % (0 - 5 %) 1.8 Basophils % (0.0 - 2.0 %) 0.5 Absolute Granulocytes (1.4 - 6.5 /CUMM) 3.8 Absolute Lymphocytes (1.2 - 3.4 /CUMM) 1.1 L Absolute Monocytes (0.10 - 0.60 /CUMM) 0.5 Absolute Eosinophils (0.0 - 0.7 /CUMM) 0.1 Absolute Basophils (0.0 - 0.2 /CUMM) 0 PUBS MCHC (33.0 - 37.0 G/DL) 33.4 Imaging/Other Studies: SERVICE DATE: 02/20/17 EXAM TYPE: RAD - XRY-PORTABLE CHEST XRAY EXAMINATION: CHEST 1 VIEW CLINICAL INFORMATION: Chest pain, shortness of breath. COMPARISON: January 31, 2017. TECHNIQUE: An AP view of the chest is provided. FINDINGS: The cardiac silhouette is not enlarged. The mediastinal and hilar contours are unremarkable. There are neither pleural effusions nor pneumothoraces. In the setting of low lung volumes, there is streaky bibasilar opacification. The osseous structures are stable. Partially visualized is cervical spine fusion hardware. IMPRESSION: Limited evaluation secondary to low lung volumes. There is streaky bibasilar opacification which could be accentuated due to low lung volumes. Assessment/Plan Assessment/Recommendations Assessment: 1. CKD: severe, advanced stage - early 5, due to presumed underlying diabetic & HTN nephrosclerosis & previous severe ATN. At baseline GFR w/o immediate renal replacement need but hi risk contrast ATN if requires repat cath/coronary angio --> pt aware. 2. Volume overload: mild w edema --> need maintenance diuretics. 3. Anemia: prob due to CKD; needs Fe stores checked --> can consider KATHARINE as oupt Recommendations: 1. Lasix 80 mg po qday 2. check phos 3. sevelamer 1600 mg meals 4. repeat renal function 5. check Fe sat & ferritin
[2017-02-21 10:42] LABS: ABSOLUTE BASOPHIL COUNT 0 /CUMM (0.0-0.2); ABSOLUTE MONOCYTE COUNT 0.6 /CUMM (0.10-0.60); RBC DISTRIBUTION WIDTH 13.9 % (11.5-14.5)
[2017-02-21 11:07] LABS: ABSOLUTE EOSINOPHIL COUNT 0.1 /CUMM (0.0-0.7); ABSOLUTE LYMPH COUNT 1.3 /CUMM (1.2-3.4); BASOPHIL % 0.4 % (0.0-2.0); EOSINOPHIL % 2.2 % (0-5); GRANULOCYTE % 65.1 % (42.2-75.2); MEAN CORPUSCULAR HGB 26.2 PG (27.0-31.0); MEAN CORPUSCULAR VOLUME 79.4 FL (80.0-94.0); MEAN PLATELET VOLUME 7.6 FL (7.4-10.4); PLATELET COUNT 234 /CUMM (130-400); RED BLOOD CELL CT 4.26 /CUMM (4.70-6.10); WHITE BLOOD CELL COUNT 6.1 /CUMM (4.8-10.8)
[2017-02-21 11:15] LABS: HEMATOCRIT 33.9 % (42-52)
--- NOTE | 2017-02-21 11:31 | PN- Cardiology ---
Subjective Subjective: Feeling better. Shortness of breath improving. No chest pain. No palpitations. No lightheadedness or dizziness. Objective Vital Signs and I&Os Vital Signs Date Time Temp Pulse Resp B/P B/P Pulse O2 O2 Flow FiO2 Mean Ox Delivery Rate 02/21 0902 82 142/74 02/21 0902 82 142/74 02/21 0853 97 Nasal 2.0L Cannula 02/21 0747 98.1 82 20 142/74 95 Nasal 3.0L Cannula 02/21 0000 Nasal 3.0L Cannula 02/20 2354 99.0 78 20 142/70 97 Nasal Cannula 02/20 2201 81 158/82 02/20 1600 96 Nasal 3.0L Cannula 02/20 1500 98.7 80 22 140/74 95 Nasal 3.0L Cannula 02/20 1451 Nasal 3.0L Cannula Intake & Output 02/21 1600 02/21 0800 02/21 0000 02/20 1600 02/20 0800 02/20 0000 Intake Total 490 360 400 Output Total 1500 1350 900 625 Balance -1500 -860 -540 -225 Intake, IV 10 400 Intake, Oral 480 360 Output, Urine 1500 1350 900 625 Patient 227 lb Weight Weight Chair scale Measurement Method Physical Exam: Gen: NAD HEENT: normal Lungs: Rales bilaterally, normal resp. effort Heart: RRR, S1, S2, no murmurs Abdomen: Soft, nontender, no masses Extremities: 1+ edema Neuro: Alert and oriented x 3, cranial nerves intact Current Medications: Current Medications Sig/Julissa Start time Last Medication Dose Route Stop Time Status Admin Acetaminophen 1,000 MG Q6P PRN 02/20 2145 AC IV Acetaminophen 650 MG Q6P PRN 02/20 0600 AC 02/20 PO 1506 Alprazolam 0.5 MG BID PRN 02/20 1845 AC 02/20 PO 02/27 184 2202 Aspirin Buffered 81 MG DAILY 02/20 1000 AC 02/21 PO 0901 Atorvastatin Calcium 80 MG 1700 02/20 1700 AC 02/20 PO 1658 Clonidine 0.1 MG BID 02/20 1000 AC 02/21 PO 0902 Dextrose 25 GM ONCE ONE 02/21 0545 CAN PO 02/21 0546 Dextrose 25 GM ONCE ONE 02/21 0545 DC 02/21 IV 02/21 0546 0546 Furosemide 40 MG 7:30 AM, & 4:30 PM 02/21 0730 AC 02/21 IV 0814 Furosemide 40 MG ONCE ONE 02/20 1515 DC 02/20 IV 02/20 1516 1658 Heparin Sodium 5,000 UNIT Q8 02/20 0600 AC 02/21 (Porcine) SC 0544 Insulin Aspart 0 TIDAC 02/21 1200 AC SC Insulin Detemir 15 UNITS BID 02/21 1000 AC 02/21 SC 1004 Insulin Detemir 25 UNITS BID 02/20 1000 DC 02/20 SC 2202 Levothyroxine Sodium 0.025 MG DAILY AC 02/21 0804 AC 02/21 PO 1004 Levothyroxine Sodium 0.2 MG DAILY AC 02/20 0700 AC 02/21 PO 0544 Multivitamins 1 TAB DAILY 02/20 1000 AC 02/21 PO 0901 Oxycodone/ 1 TAB Q6P PRN 02/20 2145 AC Acetaminophen PO Patient Medication 1 UNIT ONE NR 02/20 1600 DC Teaching ED 02/20 1630 Polyethylene Glycol 17 GM DAILY PRN 02/20 0915 AC PO Ramelteon 8 MG ONCE ONE 02/20 1845 DC 02/20 PO 02/20 1846 2202 Senna 187 MG AT BEDTIME 02/20 2200 AC 02/20 PO 2201 Senna 187 MG DAILY 02/20 1000 DC PO Tamsulosin HCl 0.4 MG DAILY 02/20 1000 AC 02/21 PO 0902 Ticagrelor 90 MG BID 02/20 1000 AC 02/21 PO 0900 Trazodone HCl 150 MG QPM 02/20 2200 AC 02/20 PO 2201 Results Last 48 Hrs of Labs/Mics: Laboratory Tests 02/21/17 0845: CBC w Diff NO MAN DIFF REQ, RBC 4.26 L, MCV 79.4 L, MCH 26.2 L, RDW 13.9, MPV 7.6, Gran % 65.1, Lymphocytes % 21.9, Monocytes % 10.4 H, Eosinophils % 2.2, Basophils % 0.4, Absolute Granulocytes 4.0, Absolute Lymphocytes 1.3, Absolute Monocytes 0.6, Absolute Eosinophils 0.1, Absolute Basophils 0, PUBS MCHC 33.0 02/21/17 0530: Anion Gap 16, Estimated GFR 14 L, BUN/Creatinine Ratio 9.8, Magnesium 2.0, Troponin I 0.31 *H 02/20/17 2050: Estimated GFR 14 L, BUN/Creatinine Ratio 9.3, Troponin I 0.30 *H 02/20/17 1510: Troponin I 0.24 *H 02/20/17 0945: Troponin I 0.24 *H, ESR Westergren 74 H 02/20/17 0329: Anion Gap 14, Estimated GFR 14 L, BUN/Creatinine Ratio 8.9, Glucose 73, Uric Acid 9.3 H, Calcium 7.1 L, Magnesium 2.1, Total Bilirubin 0.6, AST 13 L, ALT 14 L, Alkaline Phosphatase 73, Troponin I 0.32 *H, Xnx-V-Xpadpxnfsig Pept 31713 H, Total Protein 6.0 L, Albumin 3.4 L, Globulin 2.6, Albumin/Globulin Ratio 1.3, CBC w Diff NO MAN DIFF REQ, RBC 3.65 L, MCV 78.9 L, MCH 26.3 L, RDW 14.3 , MPV 7.3 L, Gran % 68.8, Lymphocytes % 19.5 L, Monocytes % 9.4 H, Eosinophils % 1.8, Basophils % 0.5, Absolute Granulocytes 3.8, Absolute Lymphocytes 1.1 L, Absolute Monocytes 0.5, Absolute Eosinophils 0.1, Absolute Basophils 0, PUBS MCHC 33.4 Assessment/Plan Assessment/Plan Assessment: 1. CAD 2. Diabetes mellitus 3. Chronic kidney disease, stage V 4. Acute HFpEF with improvement with diuresis Plan: * Continue IV Lasix * Monitor input and output * Check basic about profile daily * Likely ready for discharge tomorrow on by mouth Lasix Continue telemetry? Yes
--- NOTE | 2017-02-21 11:48 | PN- Att Addend ---
Attending Addendum Attending Brief Note Patient seen and examined, overall feeling better. He currently denies any chest pain/pressure or shortness of breath. No tele events overnight. Vital Signs Date Time Temp Pulse Resp B/P B/P Pulse O2 O2 Flow FiO2 Mean Ox Delivery Rate 02/21 0902 82 142/74 02/21 0902 82 142/74 02/21 0853 97 Nasal 2.0L Cannula 02/21 0747 98.1 82 20 142/74 95 Nasal 3.0L Cannula 02/21 0000 Nasal 3.0L Cannula 02/20 2354 99.0 78 20 142/70 97 Nasal Cannula 02/20 2201 81 158/82 02/20 1600 96 Nasal 3.0L Cannula 02/20 1500 98.7 80 22 140/74 95 Nasal 3.0L Cannula 02/20 1451 Nasal 3.0L Cannula on exam; aox3, nad. cv; s1,s2, rrr resp; clear b/l abd; soft, nt, bs+ ext; trace edema. Laboratory Tests 02/21 02/21 02/20 0845 0530 2049 Chemistry Sodium (137 - 145 mmol/L) 142 Potassium (3.5 - 5.1 mmol/L) 3.9 Chloride (98 - 107 mmol/L) 105 Carbon Dioxide (22 - 30 mmol/L) 22 Anion Gap (5 - 16) 16 BUN (9 - 20 mg/dL) 41 H 41 H Creatinine (0.7 - 1.2 mg/dL) 4.2 H 4.4 H Estimated GFR (>60 ml/min) 14 L 14 L BUN/Creatinine Ratio (7 - 25 %) 9.8 9.3 Magnesium (1.6 - 2.3 mg/dL) 2.0 Troponin I (<0.11 ng/ml) 0.31 *H 0.30 *H Hematology CBC w Diff NO MAN DIFF REQ WBC (4.8 - 10.8 /CUMM) 6.1 RBC (4.70 - 6.10 /CUMM) 4.26 L Hgb (14.0 - 18.0 G/DL) 11.2 L Hct (42 - 52 %) 33.9 L MCV (80.0 - 94.0 FL) 79.4 L MCH (27.0 - 31.0 PG) 26.2 L RDW (11.5 - 14.5 %) 13.9 Plt Count (130 - 400 /CUMM) 234 MPV (7.4 - 10.4 FL) 7.6 Gran % (42.2 - 75.2 %) 65.1 Lymphocytes % (20.5 - 51.1 %) 21.9 Monocytes % (1.7 - 9.3 %) 10.4 H Eosinophils % (0 - 5 %) 2.2 Basophils % (0.0 - 2.0 %) 0.4 Absolute Granulocytes (1.4 - 6.5 /CUMM) 4.0 Absolute Lymphocytes (1.2 - 3.4 /CUMM) 1.3 Absolute Monocytes (0.10 - 0.60 /CUMM) 0.6 Absolute Eosinophils (0.0 - 0.7 /CUMM) 0.1 Absolute Basophils (0.0 - 0.2 /CUMM) 0 PUBS MCHC (33.0 - 37.0 G/DL) 33.0 05/14 1510 Chemistry Troponin I (<0.11 ng/ml) 0.24 *H A/P; 67 y/o M with pmh sig for CAD s/p mutiple stent placements, T2DM, peripheral neuropathy, CKD stage 5, has an IIV fistula which is still maturing, admitted with Chest pain, fluid overload and + troponins. Patient has been started on IV Lasix. He did diurese significant amount of urine. Has been seen by nephrology and they are okay keeping the patient on maintenance diuretics. At this point we'll keep him on IV Lasix and likely tomorrow he will be switched to oral. Blood sugars stable on current regimen of insulin. Continue other current meds. DVT px; Hep sq.
--- NOTE | 2017-02-21 16:09 | RADIOLOGY REPORT ---
EXAMINATION: XR PORTABLE CHEST CLINICAL INFORMATION: Congestive heart failure. COMPARISON: 01/26/2017 and 02/20/2017 TECHNIQUE: Portable AP view of the chest was obtained. FINDINGS: Lungs remain hypoinflated. However, the aeration of the lower lobes has improved compared to 02/20/2017. The basilar opacities have significantly diminished. There is some residual atelectasis in the medial right base. The costophrenic sulci appear blunted, suggestive of small pleural effusions. Cardiac silhouette is normal in size. There is stable prominence of central pulmonary vessels without evidence of interstitial edema. The visualized cervical fusion hardware is intact. IMPRESSION: Lower lobe aeration has significantly improved compared to 02/20/2017. The interstitial prominence on the prior exam from 02/20/2017 might have been related to the hypoinflation and/or vascular congestion. This has improved. Currently, there is no evidence of interstitial edema. Small pleural effusions are present.
[2017-02-21 16:55] VITALS: BP 134/74
[2017-02-21 19:25] VITALS: BP 140/68
[2017-02-21 20:54] VITALS: BP 152/88
--- NOTE | 2017-02-21 21:05 | NUR ---
1900: PATIENT C/O MILD SOB AND ANXIETY, DENIES CP, DENIES HEART BURN, DENIES NUMBNES OR TINGLINGS, NO N&V. VSS AND RECORDED. PATIENT ASKING FOR ZOLOFT HOME MEDICATION. MD GRAPHIC DESIGNER NOTIFIED. 0.25MG XANAX ORDERED AND GIVEN. BP 140/68, HR 97, RR 18, SPO2 95% ON RA, TEMP 98.5 ORAL, NO PAIN. WCTM.
--- NOTE | 2017-02-21 21:10 | NUR ---
PATIENT C/O 2/10 CP DESCRIBED "IS LITTLE ACHING IN MY CHEST". VSS BP 152/88, HR 91, NSR, RR 18, SPO2 93% ON RA, TEMP 98.4 ORAL. PATIENT RESTING COMFORTABLY IN BED. DENIES ANY OTHER DISCOMFORT NO N&V, NO NUMBNES OR TINGLINGS. PATIENTS SAID "I FEEL FULL LIKE I ATE THANKSGIVING DINNER". MD CENTRAL OFFICE MAINTAINER NOTIFIED, EKG AND LABS ORDERED AND DONE. PRILOSEC ORDERED, WCTM.
[2017-02-21 23:30] VITALS: BP 132/78
--- NOTE | 2017-02-22 07:52 | PN- Housestaff ---
AMY ELDRIDGE,[facility] 02/22/17 0752: Subjective Follow-up For: Chest pain Subjective: Seen and examined at bedside. Currently does not endorse any acute complaints including increased anxiety, chest pain, palpitation, fever, chills, nausea, vomiting, abdominal pain or dysuria. Overnight event of anxiety requiring an alprazolam dose is noted. No other acute overnight event reported by nursing staff. Patient reports that his well feeling good and is ready for discharge. Review of Systems Constitutional: Reports: see HPI. Objective Last 24 Hrs of Vital Signs/I&O Vital Signs Date Time Temp Pulse Resp B/P B/P Pulse O2 O2 Flow FiO2 Mean Ox Delivery Rate 02/22 1206 94 Room Air 02/22 0909 80 108/68 02/22 0909 80 108/68 02/22 0812 99.0 80 18 108/68 93 Room Air 02/22 0800 96 Room Air 02/22 0000 95 Nasal 2.0L Cannula 02/21 2330 99.1 81 18 132/78 99 Nasal 2.0L Cannula 02/21 2124 92 152/88 02/21 2054 98.4 91 18 152/88 93 Room Air 02/21 2021 94 Room Air 02/21 1925 98.5 97 18 140/68 95 Room Air 02/21 1655 98.3 85 20 134/74 97 Room Air Intake & Output 02/22 1600 02/22 0800 02/22 0000 Intake Total 118 350 Output Total 825 1700 Balance -707 -1350 Intake, Oral 118 350 Output, Urine 825 1700 Patient 99.79 kg Weight Weight Chair scale Measurement Method Physical Exam General Appearance: Alert, Oriented X3, Cooperative Neck: Supple, No JVD Lymphatic: Axillary nl, Cervical nl Cardiovascular: Regular Rate, Normal S1, Normal S2 Lungs: Clear to Auscultation, Normal Air Movement Abdomen: Normal Bowel Sounds, Soft, No Tenderness, No Hepatospenomegaly Current Medications: Current Medications Sig/Julissa Start time Last Medication Dose Route Stop Time Status Admin Acetaminophen 1,000 MG Q6P PRN 02/20 2145 DCD IV Acetaminophen 650 MG Q6P PRN 02/20 0600 DCD 02/20 PO 1506 Alprazolam 0.25 MG ONCE ONE 02/22 0845 DC PO 02/22 0846 Alprazolam 0.25 MG ONCE ONE 02/21 1915 DC 02/21 PO 02/21 191 1923 Alprazolam 0.5 MG BID PRN 02/20 1845 DCD 02/21 PO 02/28 1844 2306 Aspirin Buffered 81 MG DAILY 02/20 1000 DCD 02/22 PO 0909 Atorvastatin Calcium 80 MG 1700 02/20 1700 DCD 02/21 PO 1707 Clonidine 0.1 MG BID 02/20 1000 DCD 02/22 PO 0909 Furosemide 80 MG DAILY 02/23 1000 DCD PO Furosemide 40 MG 7:30 AM, & 4:30 PM 02/21 0730 DC 02/22 IV 0650 Heparin Sodium 5,000 UNIT Q8 02/20 0600 DCD 02/22 (Porcine) SC 0650 Insulin Aspart 0 TIDAC 02/21 1200 DCD 02/22 SC 1214 Insulin Detemir 15 UNITS BID 02/21 1000 DCD 02/22 SC 0909 Levothyroxine Sodium 0.025 MG DAILY AC 02/21 0804 DCD 02/22 PO 0648 Levothyroxine Sodium 0.2 MG DAILY AC 02/20 0700 DCD 02/22 PO 0648 Multivitamins 1 TAB DAILY 02/20 1000 DCD 02/22 PO 0909 Omeprazole 40 MG DAILY AC 02/22 0700 DCD 02/22 PO 0648 Omeprazole 40 MG ONCE ONE 02/21 2100 DC 02/21 PO 02/21 2101 212 Oxycodone/ 1 TAB Q6P PRN 02/20 2145 DCD Acetaminophen PO Patient Medication 1 ED .STK-MED ONE 02/22 1341 PR Teaching ED 02/22 1342 Polyethylene Glycol 17 GM DAILY PRN 02/20 0915 DCD PO Senna 187 MG AT BEDTIME 02/20 2200 DCD 02/21 PO 2124 Sertraline HCl 50 MG DAILY 02/22 1000 DCD 02/22 PO 1020 Sevelamer Carbonate 1,600 MG WITH MEALS 02/21 1200 DCD 02/22 PO 1214 Tamsulosin HCl 0.4 MG DAILY 02/20 1000 DCD 02/22 PO 0909 Ticagrelor 90 MG BID 02/20 1000 DCD 02/22 PO 0909 Trazodone HCl 150 MG QPM 02/20 2200 DCD 02/21 PO 2124 Last 24 Hrs of Lab/Angus Results Last 24 Hrs of Labs/Mics: Laboratory Tests 02/22/17 0647: Anion Gap 14, Estimated GFR 14 L, BUN/Creatinine Ratio 10.5 02/21/17 2110: Troponin I 0.34 *H Assessment/Plan Assessment: This is a 67 year old very pleasent gentleman with PMH of CAD s/p stent placement, T2DM, peripheral neuropathy, CKD stage 5 (after a recent cardiac cath , fistula recently created in anticipation of possible need for dialysis), presented with chest tightness and pressure. Problem list and plan: Acute CHF with preserved ejection fraction * Patient improved with diuresis with follow-up chest x-ray shows interval improvement, will discharge patient with Lasix 80 mg by mouth daily. * Pt will follow up with Dr. Lee on an outpatient basis Chest tightness, elevated troponin, rule out ACS * Mild elevation of troponin with levels downtrending, Given patient's significant CKD, decreased troponin washout is expected. EKG unremarkable for any acute ischemic changes. Patient rcved BZDZP dose last night and report resolution of chest pain. Pt chest pain could most likely be anxiety related and less likely ACS. * Continue metoprolol 100 mg PO daily, aspirin 81 mg PO daily, atorvastatin 80 mg PO daily, Brillinta 90 mg PO BID, amlodipine 10 mg PO daily and Imdur 60 mg PO daily * Will continue to follow cardiology reccomendations COPD - stable * on 2L O2 at home * reports SOB off and on, attributes to anxiety, SO2 stays in normal range * O2 supplementation as needed * TRC/Nebs * smoking cessation counseling CKD stage 5 - stable * Etiology is thought to be the underlying diabetes as well as the SABRINA superimposed by IV contrast during cardiac cath. * Restarted Sevelemer and will continue furoseide diuresis of 80mg/day per nephro reccs (appreciated) DM * Accuchecks TID AC HS * will discharge with lantus 15 units bid with instruction to f/u with Dr Fajardo Anemia - stable * H/H 9.6/28.8, MCV 78.9, serum iron 38, TIBC 229, ferritin 158 * most likely due to chronic kidney disease Hypothyroidism * Continue levothyroxine 0.2574 mg MILES noncompliant with CPAP * Continue Symbicort BPH * Continue Flomax 0.4 mg daily Anxiety * Continue trazodone 150 mg daily Regular diet Mild pain pathway Full code Problem List: 1. Elevated troponin 2. ESRD (end stage renal disease) Pain Ratin Pain Location: none Pain Goal: Remain pain free Pain Plan: none Tomorrow's Labs & Rationales: none-discharge LINDA HAM MD 02/22/17 1140: Attending MD Review Statement Attending Statement Attending MD Statement: examined this patient, discuss w/resident/PA/CLINICAL BIOSTATISTICS DIRECTOR, agreed w/resident/PA/CLINICAL BIOSTATISTICS DIRECTOR, reviewed EMR data (avail), discussed with nursing, discussed with case mgmt, reviewed images, amended to note Attending Assessment/Plan: Patient seen and examined, had some chest pain last night she said that was helped by the antacid. Troponin was drawn but it was negative. This am he denies nay cp or sob. Vital Signs Date Time Temp Pulse Resp B/P B/P Pulse O2 O2 Flow FiO2 Mean Ox Delivery Rate 02/22 0909 80 108/68 02/22 0909 80 108/68 02/22 0812 99.0 80 18 108/68 93 Room Air 02/22 0800 96 Room Air 02/22 0000 95 Nasal 2.0L Cannula 02/21 2330 99.1 81 18 132/78 99 Nasal 2.0L Cannula 02/21 2124 92 152/88 02/21 2054 98.4 91 18 152/88 93 Room Air 02/21 2021 94 Room Air 02/21 1925 98.5 97 18 140/68 95 Room Air 02/21 1655 98.3 85 20 134/74 97 Room Air on exam; aox3, and. cv; s1, s2, rrr resp; clear abd; soft, nt, bs+ ext; trace edema. Laboratory Tests 02/22 02/21 0647 2110 Chemistry Sodium (137 - 145 mmol/L) 137 Potassium (3.5 - 5.1 mmol/L) 3.8 Chloride (98 - 107 mmol/L) 102 Carbon Dioxide (22 - 30 mmol/L) 21 L Anion Gap (5 - 16) 14 BUN (9 - 20 mg/dL) 44 H Creatinine (0.7 - 1.2 mg/dL) 4.2 H Estimated GFR (>60 ml/min) 14 L BUN/Creatinine Ratio (7 - 25 %) 10.5 Troponin I (<0.11 ng/ml) 0.34 *H A/P; 67 y/o M with pmh sig for CAD s/p mutiple stent placements, T2DM, peripheral neuropathy, CKD stage 5, has an IIV fistula which is still maturing, admitted with atypical Chest pain, fluid overload and + troponins which is chronic. Patient diuresed well on IV Lasix. Will be switched to oral Lasix for maintenance. Had been seen by nephrology and will be followed by his outpatient manager validation. I checked with him about his insulin. He was taking 50 units of Lantus at home. Here he is only getting 15 units twice a day ophthalmia. At this point we'll keep him on 30 units of Lantus upon discharge. This was confirmed with his emergency department director Manuel Agrawal MD. Patient was encouraged to keep monitoring his blood sugars. He will follow per Dr. Agrawal as outpatient for further insulin adjustment. Continue the rest of his renal medications as well as other medications. Patient medically stable for discharge home today.
[2017-02-22 08:12] VITALS: BP 108/68
--- NOTE | 2017-02-22 08:40 | PN- Nephrology ---
Assessment/Plan Assessment: 1. 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 Anemia: improved - no KATHARINE need 3. Volume overload: improved Suggestion: no objection to maintenance Lasix OK for discharge from renal perspective Subjective Subjective: Doing better w/o SOB or CP this morning No uremic sx Objective Vital Signs and I&Os Vital Signs Date Time Temp Pulse Resp B/P B/P Pulse O2 O2 Flow FiO2 Mean Ox Delivery Rate 02/22 0812 99.0 80 18 108/68 93 Room Air 02/22 0800 96 Room Air 02/22 0000 95 Nasal 2.0L Cannula 02/21 2330 99.1 81 18 132/78 99 Nasal 2.0L Cannula 02/21 2124 92 152/88 02/21 2054 98.4 91 18 152/88 93 Room Air 02/21 2021 94 Room Air 02/21 1925 98.5 97 18 140/68 95 Room Air 02/21 1655 98.3 85 20 134/74 97 Room Air 02/21 0902 82 142/74 02/21 0902 82 142/74 02/21 0853 97 Nasal 2.0L Cannula Intake & Output 02/22 1600 02/22 0400 02/21 1600 02/21 0400 02/20 1600 02/20 0400 Intake Total 118 350 300 490 360 400 Output Total 825 1700 2175 1350 1525 Balance -707 -1350 -1875 -860 -1165 400 Intake, IV 10 400 Intake, Oral 118 350 300 480 360 Number 2 Bowel Movements Output, Urine 825 1700 2175 1350 1525 Patient 220 lb 227 lb 238 lb Weight Weight Chair scale Chair scale Reported by Patient Measurement Method Physical Exam General Appearance: well developed/nourished, no apparent distress Head: atraumatic, normal appearance Respiratory: decreased breath sounds (L base) Cardiovascular: regular rate/rhythm, friction rub (none) Abdomen: soft, non-tender Extremities: no edema, + bruit L arm AVF Neurologic/Psychiatric: awake, alert Current Medications: Current Medications Sig/Julissa Start time Last Medication Dose Route Stop Time Status Admin Acetaminophen 1,000 MG Q6P PRN 02/20 2145 AC IV Acetaminophen 650 MG Q6P PRN 02/20 0600 AC 02/20 PO 1506 Alprazolam 0.25 MG ONCE ONE 02/21 1915 DC 02/21 PO 02/21 191 1923 Alprazolam 0.5 MG BID PRN 02/20 1845 AC 02/21 PO 02/27 184 2306 Aspirin Buffered 81 MG DAILY 02/20 1000 AC 02/21 PO 0901 Atorvastatin Calcium 80 MG 1700 02/20 1700 AC 02/21 PO 1707 Clonidine 0.1 MG BID 02/20 1000 AC 02/21 PO 2124 Furosemide 80 MG DAILY 02/23 1000 AC PO Furosemide 40 MG 7:30 AM, & 4:30 PM 02/21 0730 DC 02/22 IV 0650 Heparin Sodium 5,000 UNIT Q8 02/20 0600 AC 02/22 (Porcine) SC 0650 Insulin Aspart 0 TIDAC 02/21 1200 AC SC Insulin Detemir 15 UNITS BID 02/21 1000 AC 02/21 SC 2125 Levothyroxine Sodium 0.025 MG DAILY AC 02/21 0804 AC 02/22 PO 0648 Levothyroxine Sodium 0.2 MG DAILY AC 02/20 0700 AC 02/22 PO 0648 Multivitamins 1 TAB DAILY 02/20 1000 AC 02/21 PO 0901 Omeprazole 40 MG DAILY AC 02/22 0700 AC 02/22 PO 0648 Omeprazole 40 MG ONCE ONE 02/21 2100 DC 02/21 PO 02/21 Oxycodone/ 1 TAB Q6P PRN 02/20 2145 AC Acetaminophen PO Polyethylene Glycol 17 GM DAILY PRN 02/20 0915 AC PO Senna 187 MG AT BEDTIME 02/20 2200 AC 02/21 PO 212 Sertraline HCl 50 MG DAILY 02/22 1000 UNVr PO Sevelamer Carbonate 1,600 MG TIDPC 02/21 1300 DC PO Sevelamer Carbonate 1,600 MG WITH MEALS 02/21 1200 AC 02/22 PO 0815 Tamsulosin HCl 0.4 MG DAILY 02/20 1000 AC 02/21 PO 0902 Ticagrelor 90 MG BID 02/20 1000 AC 02/21 PO 212 Trazodone HCl 150 MG QPM 02/20 2200 AC 02/21 PO 2123 Results Pertinent Lab Results: Laboratory Tests 02/22 02/21 02/21 0647 2110 1140 Chemistry Sodium (137 - 145 mmol/L) 137 Potassium (3.5 - 5.1 mmol/L) 3.8 Chloride (98 - 107 mmol/L) 102 Carbon Dioxide (22 - 30 mmol/L) 21 L Anion Gap (5 - 16) 14 BUN (9 - 20 mg/dL) 44 H Creatinine (0.7 - 1.2 mg/dL) 4.2 H Estimated GFR (>60 ml/min) 14 L BUN/Creatinine Ratio (7 - 25 %) 10.5 Troponin I (<0.11 ng/ml) 0.34 *H 0.43 *H 02/21 02/21 02/20 0845 0530 2050 Chemistry Sodium (137 - 145 mmol/L) 142 Potassium (3.5 - 5.1 mmol/L) 3.9 Chloride (98 - 107 mmol/L) 105 Carbon Dioxide (22 - 30 mmol/L) 22 Anion Gap (5 - 16) 16 BUN (9 - 20 mg/dL) 41 H 41 H Creatinine (0.7 - 1.2 mg/dL) 4.2 H 4.4 H Estimated GFR (>60 ml/min) 14 L 14 L BUN/Creatinine Ratio (7 - 25 %) 9.8 9.3 Phosphorus (2.5 - 4.5 mg/dL) 6.4 H Magnesium (1.6 - 2.3 mg/dL) 2.0 Iron (49 - 181 ug/dL) 40 L TIBC (261 - 462 ug/dL) 285 % Saturation (16 - 45 %) 14 L Ferritin (17.9 - 464 ng/mL) 94.8 Troponin I (<0.11 ng/ml) 0.31 *H 0.30 *H Hematology CBC w Diff NO MAN DIFF REQ WBC (4.8 - 10.8 /CUMM) 6.1 RBC (4.70 - 6.10 /CUMM) 4.26 L Hgb (14.0 - 18.0 G/DL) 11.2 L Hct (42 - 52 %) 33.9 L MCV (80.0 - 94.0 FL) 79.4 L MCH (27.0 - 31.0 PG) 26.2 L RDW (11.5 - 14.5 %) 13.9 Plt Count (130 - 400 /CUMM) 234 MPV (7.4 - 10.4 FL) 7.6 Gran % (42.2 - 75.2 %) 65.1 Lymphocytes % (20.5 - 51.1 %) 21.9 Monocytes % (1.7 - 9.3 %) 10.4 H Eosinophils % (0 - 5 %) 2.2 Basophils % (0.0 - 2.0 %) 0.4 Absolute Granulocytes (1.4 - 6.5 /CUMM) 4.0 Absolute Lymphocytes (1.2 - 3.4 /CUMM) 1.3 Absolute Monocytes (0.10 - 0.60 /CUMM) 0.6 Absolute Eosinophils (0.0 - 0.7 /CUMM) 0.1 Absolute Basophils (0.0 - 0.2 /CUMM) 0 PUBS MCHC (33.0 - 37.0 G/DL) 33.0 02/20 02/20 02/20 1510 0945 0329 Chemistry Sodium (137 - 145 mmol/L) 141 Potassium (3.5 - 5.1 mmol/L) 3.5 Chloride (98 - 107 mmol/L) 105 Carbon Dioxide (22 - 30 mmol/L) 22 Anion Gap (5 - 16) 14 BUN (9 - 20 mg/dL) 39 H Creatinine (0.7 - 1.2 mg/dL) 4.4 H Estimated GFR (>60 ml/min) 14 L BUN/Creatinine Ratio (7 - 25 %) 8.9 Glucose (65 - 99 mg/dL) 73 Uric Acid (3.5 - 8.5 mg/dL) 9.3 H Calcium (8.4 - 10.2 mg/dL) 7.1 L Magnesium (1.6 - 2.3 mg/dL) 2.1 Total Bilirubin (0.2 - 1.3 mg/dL) 0.6 AST (17 - 59 U/L) 13 L ALT (21 - 72 U/L) 14 L Alkaline Phosphatase (< 127 U/L) 73 Troponin I (<0.11 ng/ml) 0.24 *H 0.24 *H 0.32 *H [id number] Pept (<125 pg/mL) 73089 H Total Protein (6.3 - 8.2 g/dL) 6.0 L Albumin (3.5 - 5.0 g/dL) 3.4 L Globulin (1.9 - 4.2 gm/dL) 2.6 Albumin/Globulin Ratio (1.1 - 2.2 %) 1.3 Hematology CBC w Diff NO MAN DIFF REQ WBC (4.8 - 10.8 /CUMM) 5.5 RBC (4.70 - 6.10 /CUMM) 3.65 L Hgb (14.0 - 18.0 G/DL) 9.6 L Hct (42 - 52 %) 28.8 L MCV (80.0 - 94.0 FL) 78.9 L MCH (27.0 - 31.0 PG) 26.3 L RDW (11.5 - 14.5 %) 14.3 Plt Count (130 - 400 /CUMM) 245 MPV (7.4 - 10.4 FL) 7.3 L Gran % (42.2 - 75.2 %) 68.8 Lymphocytes % (20.5 - 51.1 %) 19.5 L Monocytes % (1.7 - 9.3 %) 9.4 H Eosinophils % (0 - 5 %) 1.8 Basophils % (0.0 - 2.0 %) 0.5 Absolute Granulocytes (1.4 - 6.5 /CUMM) 3.8 Absolute Lymphocytes (1.2 - 3.4 /CUMM) 1.1 L Absolute Monocytes (0.10 - 0.60 /CUMM) 0.5 Absolute Eosinophils (0.0 - 0.7 /CUMM) 0.1 Absolute Basophils (0.0 - 0.2 /CUMM) 0 PUBS MCHC (33.0 - 37.0 G/DL) 33.4 ESR Westergren (0 - 10 MM) 74 H Imaging/Other Studies: CXR: Lower lobe aeration has significantly improved compared to 02/20/2017. The interstitial prominence on the prior exam from 02/20/2017 might have been related to the hypoinflation and/or vascular congestion. This has improved. Currently, there is no evidence of interstitial edema. Small pleural effusions are present.
[2017-02-22 09:09] VITALS: BP 108/68
[2017-02-22] MEDS ORDERED: LASIX40 M1 PO ×2 (09:37→09:54)
--- NOTE | 2017-02-22 09:42 | Patient Discharge Instructions ---
Discharge Instructions General Discharge Information You were seen/treated for: CHEST PAIN Special Instructions: PLEASE FOLLOW UP WITH YOUR PRIMARY CARE WITHIN 1 WEEK PLEASE SEK MEDICAL ATTENTION IF YOUR DEVELOP CHEST PAIN PLEASE FOLLOW UP WITH YOUR NEPHROLOGY CLINIC AT [facility] WITHIN 1 WEEK THERE HAS BEEN CHANGES TO YOUR LANTUS INSULIN (DOSE HAS BEEN DECREASED). PLEASE CHECK YOUR SUGARS REGULARLY AND WATCH FOR LOW SUGARS PLEASE FOLLOW UP WTH YOUR CLINICAL STAFF PHARMACIST WITHIN 1 WEEK PLEASE FOLLOW UP WITH THE [employer] LINE WORKER REFERRAL (DR SHINE) WITHIN 1 WEEK Acute Coronary Syndrome Inclusion Criteria At DC or during hospital stay patient has or had the following: ACS DIAGNOSIS No Discharge Core Measures Meds if any: Prescribed or Continued at Discharge Meds if any: NOT Prescribed or Continued at Discharge Congestive Heart Failure Inclusion Criteria At DC or during hospital stay patient has or had the following: CHF DIAGNOSIS No Discharge Core Measures Meds if any: Prescribed or Continued at Discharge Meds if any: NOT Prescribed or Continued at Discharge Cerebrovascular accident Inclusion Criteria At DC or during hospital stay patient has or had the following: CVA/TIA Diagnosis No Discharge Core Measures Meds if any: Prescribed or Continued at Discharge Meds if any: NOT Prescribed or Continued at Discharge Venous thromboembolism Inclusion Criteria VTE Diagnosis No VTE Type NONE VTE Confirmed by (Test) NONE Discharge Core Measures - Per Current guidelines, there needs to be overlap - treatment for the first 5 days of Warfarin therapy. - If discharged on Warfarin prior to 5 days of - overlap therapy, the patient will need to be - assessed for post discharge needs including - *Post discharge parental anticoagulation - *Warfarin and/or parental anticoagulation education - *Follow up date to check INR post discharge At least 5 days overlap therapy as Inpatient No Meds if any: Prescribed or Continued at Discharge Note: Overlap Therapy is Warfarin and Anticoagulant Meds if any: NOT Prescribed or Continued at Discharge
[2017-02-22] MEDS ORDERED: LEVEMIR100 UNIT/1 SC (11:18)
[2017-02-22] MEDS ORDERED: LANTUS SOL100 UNIT/1 SQ (11:34)
--- NOTE | 2017-02-22 12:23 | PN- Cardiology ---
Subjective Subjective: The patient reports that he is feeling better. Shortness of breath is significantly improved. No chest pain. No palpitations. No diaphoresis. No lightheadedness or dizziness. No nausea or vomiting. Objective Vital Signs and I&Os Vital Signs Date Time Temp Pulse Resp B/P B/P Pulse O2 O2 Flow FiO2 Mean Ox Delivery Rate 02/22 1206 94 Room Air 02/22 0909 80 108/68 02/22 0909 80 108/68 02/22 0812 99.0 80 18 108/68 93 Room Air 02/22 0800 96 Room Air 02/22 0000 95 Nasal 2.0L Cannula 02/21 2330 99.1 81 18 132/78 99 Nasal 2.0L Cannula 02/21 2124 92 152/88 02/21 2054 98.4 91 18 152/88 93 Room Air 02/21 2021 94 Room Air 02/21 1925 98.5 97 18 140/68 95 Room Air 02/21 1655 98.3 85 20 134/74 97 Room Air Intake & Output 02/22 1600 02/22 0800 02/22 0000 02/21 1600 02/21 0800 02/21 0000 Intake Total 118 350 300 490 Output Total 825 7258 266 5208 1350 Balance -707 -1350 -375 -1500 -860 Intake, IV 10 Intake, Oral 118 350 300 480 Number 2 Bowel Movements Output, Urine 825 0554 428 3585 1350 Patient 220 lb Weight Weight Chair scale Measurement Method Physical Exam: Gen: NAD HEENT: normal Lungs: Rales bilaterally, normal resp. effort Heart: RRR, S1, S2, no murmurs Abdomen: Soft, nontender, no masses Extremities: 1+ edema Neuro: Alert and oriented x 3, cranial nerves intact Current Medications: Current Medications Sig/Julissa Start time Last Medication Dose Route Stop Time Status Admin Acetaminophen 1,000 MG Q6P PRN 02/20 2145 AC IV Acetaminophen 650 MG Q6P PRN 02/20 0600 AC 02/20 PO 1506 Alprazolam 0.25 MG ONCE ONE 02/22 0845 DC PO 02/22 0846 Alprazolam 0.25 MG ONCE ONE 02/21 1915 DC 02/21 PO 02/21 191 1923 Alprazolam 0.5 MG BID PRN 02/20 1845 AC 02/21 PO 05/21 1844 2306 Aspirin Buffered 81 MG DAILY 02/20 1000 AC 02/22 PO 0909 Atorvastatin Calcium 80 MG 1700 02/20 1700 AC 02/21 PO 1707 Clonidine 0.1 MG BID 02/20 1000 AC 02/22 PO 0909 Furosemide 80 MG DAILY 02/23 1000 AC PO Furosemide 40 MG 7:30 AM, & 4:30 PM 02/21 0730 DC 02/22 IV 0650 Heparin Sodium 5,000 UNIT Q8 02/20 0600 AC 02/22 (Porcine) SC 0650 Insulin Aspart 0 TIDAC 02/21 1200 AC 02/22 SC 1214 Insulin Detemir 15 UNITS BID 02/21 1000 AC 02/22 SC 0909 Levothyroxine Sodium 0.025 MG DAILY AC 02/21 0804 AC 02/22 PO 0648 Levothyroxine Sodium 0.2 MG DAILY AC 02/20 0700 AC 02/22 PO 0648 Multivitamins 1 TAB DAILY 02/20 1000 AC 02/22 PO 0909 Omeprazole 40 MG DAILY AC 02/22 0700 AC 02/22 PO 0648 Omeprazole 40 MG ONCE ONE 02/21 2100 DC 02/21 PO 02/21 210 2124 Oxycodone/ 1 TAB Q6P PRN 02/20 2145 AC Acetaminophen PO Polyethylene Glycol 17 GM DAILY PRN 02/20 0915 AC PO Senna 187 MG AT BEDTIME 02/20 2200 AC 02/21 PO 2124 Sertraline HCl 50 MG DAILY 02/22 1000 AC 02/22 PO 1020 Sevelamer Carbonate 1,600 MG TIDPC 02/21 1300 DC PO Sevelamer Carbonate 1,600 MG WITH MEALS 02/21 1200 AC 02/22 PO 1214 Tamsulosin HCl 0.4 MG DAILY 02/20 1000 AC 02/22 PO 0909 Ticagrelor 90 MG BID 02/20 1000 AC 02/22 PO 0909 Trazodone HCl 150 MG QPM 02/20 2200 AC 02/21 PO 2124 Results Last 48 Hrs of Labs/Mics: Laboratory Tests 02/22/17 0647: Anion Gap 14, Estimated GFR 14 L, BUN/Creatinine Ratio 10.5 02/21/17 2110: Troponin I 0.34 *H 02/21/17 1140: Troponin I 0.43 *H 02/21/17 0845: CBC w Diff NO MAN DIFF REQ, RBC 4.26 L, MCV 79.4 L, MCH 26.2 L, RDW 13.9, MPV 7.6, Gran % 65.1, Lymphocytes % 21.9, Monocytes % 10.4 H, Eosinophils % 2.2, Basophils % 0.4, Absolute Granulocytes 4.0, Absolute Lymphocytes 1.3, Absolute Monocytes 0.6, Absolute Eosinophils 0.1, Absolute Basophils 0, PUBS MCHC 33.0 02/21/17 0530: Anion Gap 16, Estimated GFR 14 L, BUN/Creatinine Ratio 9.8, Phosphorus 6.4 H, Magnesium 2.0, Iron 40 L, TIBC 285, % Saturation 14 L, Ferritin 94.8, Troponin I 0.31 *H 02/20/17 2050: Estimated GFR 14 L, BUN/Creatinine Ratio 9.3, Troponin I 0.30 *H 02/20/17 1510: Troponin I 0.24 *H Assessment/Plan Assessment/Plan Assessment: 1. CAD 2. Diabetes mellitus 3. Chronic kidney disease, stage V 4. Acute HFpEF with improvement with diuresis Plan: * Change Lasix to 80 mg by mouth daily * Clear for discharge to home from cardiac standpoint. * Follow up with Dr. Lee in one week. Continue telemetry? No
--- NOTE | 2017-02-23 07:44 | ECHOCARDIOGRAM REPORT ---
DEEPIKA BRANDT Age: 67 : 1950 Gender: M Exam Date: 02/21/2017 16:09 Exam Location: [place] Ht (in): 70 Wt (lb): 238 BSA: 2.35 BP: 142 / 74 Ordering Physician: VICTORIA RUSSELL MD Referring Physician: Lilibeth Lee MD Technologist: Pebbles Joseph [facility] Room Number: 171 Indications: CHEST PAIN Rhythm: Sinus Technical Quality: Fair FINDINGS Left Ventricle Normal size left ventricle. Borderline normal left ventricular ejection fraction estimated at 50-55%. Hypokinetic septum. [place] hypokinetic. Right Ventricle Right ventricle not well visualized, grossly normal. Right Atrium Normal right atrial size. Left Atrium Moderate left atrial dilatation. Mitral Valve Mitral valve thickened. Mitral annular calcification. Mild-to- moderate mitral regurgitation. Aortic Valve Trileaflet aortic valve. Diffuse thickening (sclerosis) of the aortic valve cusps without reduced excursion. No aortic stenosis. No aortic regurgitation. Tricuspid Valve Tricuspid valve not well visualized, grossly normal. Trace to mild tricuspid regurgitation. Pulmonic Valve Structurally normal pulmonic valve. Trace pulmonic regurgitation. Pericardium No pericardial effusion. Great Vessels Aortic root and proximal ascending aorta not well visualized, grossly normal. CONCLUSIONS 1. This was a technically difficult examination. 2. Aortic sclerosis is present with no valvular stenosis or insufficiency. 3. Mitral leaflet thickening is present with anular calcification and mild to moderate mitral insufficiency with moderate left atrial enlargement. 4. There is no significant pericardial fluid present. 5. The left ventricular chamber size is normal with hypokinesia of the distal septum and apex and an ejection fraction of approximately 50-55%. 6. Minimal to mild tricuspid aind pulmonic insufficiency are present. The RV systolic pressure was not accurately assessed. Lilibeth Lee M.D. (Electronically Signed) Final Date: 23 Feb 2017 07:43 MEASUREMENTS (Male / Female) Normal Values 2D ECHO LV Diastolic Diameter PLAX 5.5 cm 4.2 - 5.9 / 3.9 - 5.3 cm LV Systolic Diameter PLAX 3.4 cm 2.1 - 4.0 cm LV Fractional Shortening PLAX 38.2 % 25 - 46 % LV Ejection Fraction 2D Teich 67.8 % IVS Diastolic Thickness 1.1 cm LVPW Diastolic Thickness 1.1 cm LV Relative Wall Thickness 0.4 RV Internal Dim ED PLAX 3.0 cm 1.9 - 3.8 cm LVOT Diameter 2.1 cm Aortic Root Diameter 3.2 cm LA Systolic Diameter LX 5.3 cm 3.0 - 4.0 / 2.7 - 3.8 cm LA Volume 70.0 cm 18 - 58 / 22 - 52 cm Ascending Aorta Diameter 3.3 cm DOPPLER AV Peak Velocity 138.0 cm/s AV Peak Gradient 7.6 mmHg AV Mean Velocity 99.6 cm/s AV Mean Gradient 4.0 mmHg AV Velocity Time Integral 32.0 cm LVOT Peak Velocity 76.0 cm/s LVOT Peak Gradient 2.3 mmHg LVOT Mean Velocity 48.4 cm/s LVOT Mean Gradient 1.0 mmHg LVOT Velocity Time Integral 17.9 cm LVOT Stroke Volume 62.0 cm AV Area Cont Eq vti 1.9 cm AV Area Cont Eq pk 1.9 cm MV Peak Velocity 126.0 cm/s MV Peak Gradient 6.4 mmHg MV Mean Velocity 74.1 cm/s MV Mean Gradient 3.0 mmHg Mitral E Point Velocity 109.0 cm/s Mitral A Point Velocity 86.6 cm/s Mitral E to A Ratio 1.3 MV PHT Velocity 128.0 cm/s MV Deceleration [place] 646.0 cm/s MV Pressure Half Time 59.4 ms MV Area PHT 3.7 cm MV Deceleration Time 153.0 ms PV Peak Velocity 93.0 cm/s PV Peak Gradient 3.5 mmHg PV Mean Velocity 64.2 cm/s PV Mean Gradient 2.0 mmHg PV Velocity Time Integral 20.3 cm LV E' Lateral Velocity 8.0 cm/s Mitral E to LV E' Lateral Ratio 13.6 LV E' Septal Velocity 4.6 cm/s Mitral E to LV E' Septal Ratio 23.8
--- NOTE | 2017-03-23 17:13 | Discharge Summary ---
Visit Information Visit Dates Admission Date: 02/20/17 Discharge Date: 02/22/17 Hospital Course Course Attending Physician: LINDA HAM MD Primary Care Phys[facility]: This is a 67 yo male with past medical hx of CAD s/p stents, COPD, DM2 (with neuropathy), CKD5 (s/p recent fistula placement) who presented to [facility] with substernal chest heaviness that came on at rest at aorund 2:30 am that woke him from his sleep sleep.The patient states pain feels better when sitting up and leaning forward. He also complained of lower extremity edema but no dyspnea. In the ED he received ASA and NTG with no relief. VS at presentation: T 97.4, P 84, R 20, BP 132/62, PO 94% 2L Physiscal exam General: AOx3 Skin No Significant Lesion Skin Temp/Moisture Exam: Warm/Dry Sepsis Skin Exam (color): Normal for Ethnicity HEENT Atraumatic, EOMI, Mucous Membr. moist/pink, pupils round and reactive to light Neck Supple, No JVD Cardiovascular Regular Rate, Normal S1, Normal S2, No Murmurs Lungs Clear to Auscultation, Normal Air Movement Abdomen Normal Bowel Sounds, Soft, No Tenderness Neurological Normal Speech, Strength at 5/5 X4 Ext, Normal Tone, Sensation Intact Extremities 2+ pitting edema Bilaterally Vascular Normal Pulses, Pulses Symmetrica WBC of 5.5 ,H/H of 9.6/28.8, platelet of 245. Potassium of 3.5, sodium of 141, BUN/creatinine 39/4.4% (baseline is 4.4 in last few months, last noted to be 2.8 in February 2016, 3.6 in October 2016). Initial set of troponin positive at 0.32, proBNP elevated at 16,200. Previously also had elevated troponins alongwith elevated proBNP ( last troponin after trending up in january 2017 was 0.51) [place] [id number] Chest x-ray showed streaky bibasilar opacification with low lung volumes. EKG : NSR, 80, with old MA, no new St tave changes. Pt was then admitted to Telemetry floor for 3 days. The following issues were addressed during hospital stay: #Chest Pain- patient did present with slightly elevated troponins, but trended down from 0.31 to 0.43 to 0.31 measured at 6h intervals. Serial EKGs obtain did not show any acute ischemic changes. Given that the patient has chronic kidney disease the slight elevation of troponin was expected. Cardiology was consulted and did not feel that this was an ACS event. There was initial concern for [place] pericarditis, however echo was unremarkable and patient chest pain subsided the following day. #CKD stage V with volume overload- As evident by lower extremity edema. Pt had a left hand fistula that was still not matured , placed less than 2 months ago, in anticipation of dialysis. Nephrology was consulted, and patient was started on IV 80 mg Lasix and several SEVELEMR 1600 mg with meals. Patient diuresed well and on discharge date was sent home with 80 mg oral lasix Rx and to f/u with nephrology regarding dialysis planning. #Chronic Hypoxic Respiratory Failure- patient on chronic oxygen at home and did not requiring any greater amount at present. #Essential HTN- BP stable on meds. Continued on Metoprolol/Amlodipine/Clonidine. #Anxiety/Depression- Patient did have some episodes of increased anxiety while hospitalized , this was believed to have been contributory to his chest pain. He received 0.25 mg Xanax as needed for his anxiety. His trazodone and sertraline was continued during hospital stay. Allergies: Coded Allergies: Iodinated Contrast- Oral and IV Dye (PER PT STATES HIS KIDNEYS ARE SHOT HE IS ON DIALYSIS 03/27/17) morphine (Mild, LOOPY 01/18/17) hydromorphone (DEPRESSED RESPIRATIONS 01/18/17) Significant Procedures: EXAM TYPE: CARD - ECHOCARDIOGRAM DEEPIKA BRANDT Age: 67 : 1950 Gender: M Exam Date: 02/21/2017 16:09 Exam Location: [place] Ht (in): 70 Wt (lb): 238 BSA: 2.35 BP: 142 / 74 Ordering Physician: VICTORIA RUSSELL MD Referring Physician: Lilibeth Shine MD Technologist: Pebbles Jsoeph [facility] Room Number: 171 Indications: CHEST PAIN Rhythm: Sinus Technical Quality: Fair FINDINGS Left Ventricle Normal size left ventricle. Borderline normal left ventricular ejection fraction estimated at 50-55%. Hypokinetic septum. [place] hypokinetic. Right Ventricle Right ventricle not well visualized, grossly normal. Right Atrium Normal right atrial size. Left Atrium Moderate left atrial dilatation. Mitral Valve Mitral valve thickened. Mitral annular calcification. Mild-to- moderate mitral regurgitation. Aortic Valve Trileaflet aortic valve. Diffuse thickening (sclerosis) of the aortic valve cusps without reduced excursion. No aortic stenosis. No aortic regurgitation. Tricuspid Valve Tricuspid valve not well visualized, grossly normal. Trace to mild tricuspid regurgitation. Pulmonic Valve Structurally normal pulmonic valve. Trace pulmonic regurgitation. Pericardium No pericardial effusion. Great Vessels Aortic root and proximal ascending aorta not well visualized, grossly normal. CONCLUSIONS 1. This was a technically difficult examination. 2. Aortic sclerosis is present with no valvular stenosis or insufficiency. 3. Mitral leaflet thickening is present with anular calcification and mild to moderate mitral insufficiency with moderate left atrial enlargement. 4. There is no significant pericardial fluid present. 5. The left ventricular chamber size is normal with hypokinesia of the distal septum and apex and an ejection fraction of approximately 50-55%. 6. Minimal to mild tricuspid aind pulmonic insufficiency are present. The RV systolic pressure was not accurately assessed. Lilibeth Shine M.D. (Electronically Signed) Final Date: 23 Feb 2017 07:43 MEASUREMENTS (Male / Female) Normal Values 2D ECHO LV Diastolic Diameter PLAX 5.5 cm 4.2 - 5.9 / 3.9 - 5.3 cm LV Systolic Diameter PLAX 3.4 cm 2.1 - 4.0 cm LV Fractional Shortening PLAX 38.2 % 25 - 46 % LV Ejection Fraction 2D Teich 67.8 % IVS Diastolic Thickness 1.1 cm LVPW Diastolic Thickness 1.1 cm LV Relative Wall Thickness 0.4 RV Internal Dim ED PLAX 3.0 cm 1.9 - 3.8 cm LVOT Diameter 2.1 cm Aortic Root Diameter 3.2 cm LA Systolic Diameter LX 5.3 cm 3.0 - 4.0 / 2.7 - 3.8 cm LA Volume 70.0 cm 18 - 58 / 22 - 52 cm Ascending Aorta Diameter 3.3 cm DOPPLER AV Peak Velocity 138.0 cm/s AV Peak Gradient 7.6 mmHg AV Mean Velocity 99.6 cm/s AV Mean Gradient 4.0 mmHg AV Velocity Time Integral 32.0 cm LVOT Peak Velocity 76.0 cm/s LVOT Peak Gradient 2.3 mmHg LVOT Mean Velocity 48.4 cm/s LVOT Mean Gradient 1.0 mmHg LVOT Velocity Time Integral 17.9 cm LVOT Stroke Volume 62.0 cm AV Area Cont Eq vti 1.9 cm AV Area Cont Eq pk 1.9 cm MV Peak Velocity 126.0 cm/s MV Peak Gradient 6.4 mmHg MV Mean Velocity 74.1 cm/s MV Mean Gradient 3.0 mmHg Mitral E Point Velocity 109.0 cm/s Mitral A Point Velocity 86.6 cm/s Mitral E to A Ratio 1.3 MV PHT Velocity 128.0 cm/s MV Deceleration [place] 646.0 cm/s MV Pressure Half Time 59.4 ms MV Area PHT 3.7 cm MV Deceleration Time 153.0 ms PV Peak Velocity 93.0 cm/s PV Peak Gradient 3.5 mmHg PV Mean Velocity 64.2 cm/s PV Mean Gradient 2.0 mmHg PV Velocity Time Integral 20.3 cm LV E' Lateral Velocity 8.0 cm/s Mitral E to LV E' Lateral Ratio 13.6 LV E' Septal Velocity 4.6 cm/s Mitral E to LV E' Septal Ratio 23.8 DICTATED BY: Geo SHINE MD Disposition Summary Disposition Principal Diagnosis: CHEST PAIN Additional Diagnosis: FLUID OVERLOAD Discharge Disposition: home health services Discharge Instructions General Discharge Information Code Status: Full Code Patient's Diet: DIABETIC Patient's Activity: TOLERATED Follow-Up Instructions/Appts: PT TO F/U WITH PCP PT TO F/U WITH NEPHROLOGY. Medications at Discharge Discharge Medications: Continue taking these medications: Liraglutide (Victoza 3-Zeus) 0.6 MG/0.1 ML PEN.INJCTR 1.8 Milligram ORAL TAKE AT BEDTIME Qty = 9 Comments: Last Taken: 03/23/17 Time: 11:30 AM Metoprolol Tartrate (Metoprolol Tartrate) 100 MG TABLET 1 Tablet ORAL DAILY Qty = 14 Comments: Last Taken: 03/23/17 Time:11:30 AM Clonidine HCl (Clonidine HCl) 0.1 MG TABLET 1 Tablet ORAL TWICE DAILY Qty = 60 Comments: NOT GIVEN IN HOSPITAL Trazodone HCl (Trazodone HCl) 150 MG TABLET 1 Tablet ORAL Every night Qty = 35 Comments: Last Taken: 03/22/17 Time: 10:00 PM Tamsulosin HCl (Tamsulosin HCl) 0.4 MG CAP.ER.24H 1 Capsule ORAL DAILY Qty = 30 Comments: NOT GIVEN IN HOSPITAL Folic Acid (Folic Acid) 1 MG TABLET 1 Tablet ORAL DAILY Qty = 30 Comments: Last Taken: 03/23/17 Time:11:30 AM Aspirin (Ecotrin*) 81 MG TABLET.DR 1 Tablet ORAL TAKE AT BEDTIME Comments: Last Taken: 03/23/17 Time 11:00 AM Atorvastatin Calcium (Lipitor) 80 MG TABLET 1 Tablet ORAL TAKE AT BEDTIME Comments: Last Taken: 03/22/17 Time: 6:30 PM Ticagrelor (Brilinta) 90 MG TABLET 1 Tablet ORAL TWICE DAILY Comments: Last Taken: NOT GIVEN IN HOSPITAL Time: Amlodipine Besylate (Norvasc) 10 MG TABLET 1 Tablet ORAL DAILY Comments: NOT GIVEN IN HOSPITAL Sevelamer Carbonate (Renvela) 800 MG TABLET 2 Tablet ORAL THREE TIMES DAILY Comments: NOT GIVEN IN HOSPITAL Alprazolam (Xanax) 0.5 MG TABLET 1 Tablet ORAL TWICE DAILY as needed for ANXIETY Qty = 15 Comments: Last Taken: 03/23/17 Time: 11:30 AM Budesonide/Formoterol Fumarate (Symbicort 160-4.5 Mcg Inhaler) 160 MCG-4.5 MCG/ ACTUATION HFA.AER.AD 2 Puff Inhale through mouth TWICE DAILY Qty = 1 Instructions: Rinse your mouth after using inhaler. Comments: Last Taken: 03/23/17 Time: 11:30 AM Isosorbide Mononitrate (Isosorbide Mononitrate ER) 60 MG TAB.ER.24H 1 Tablet ORAL DAILY Qty = 30 Comments: Last Taken: 03/23/17 Time: 11:30 AM Levothyroxine Sodium (Synthroid) 200 MCG TABLET 0.2 Milligram ORAL DAILY BEFORE BREAKFAST Days = 28 Comments: Last Taken: 03/23/17 Time: 11:30 AM Ramelteon (Rozerem) 8 MG TABLET 1 Tablet ORAL AT BEDTIME Qty = 30 Comments: Last Taken: 03/22/17 Time: 10:00 PM Start taking the following new medications: Furosemide (Lasix) 40 MG TABLET 80 Milligram ORAL DAILY Qty = 30 No Refills Comments: Last Taken: 03/23/17 Time: 11:30 AM The following medications have been changed: Old: Insulin Glargine,Hum.rec.anlog (Lantus Solostar) 100 UNIT/1 ML INSULN.PEN 62 Units Inject into fatty tissue AT BEDTIME Qty = 15 New: Insulin Glargine,Hum.rec.anlog (Lantus Solostar) 100 UNIT/ML (3 ML) INSULN.PEN 15 Units SUB-Q TWICE DAILY Qty = 30 Comments: NOT GIVEN IN HOSPITAL Copies To: CARLITA PAGE DO Qty = 30 No Refills Comments: Last Taken: 03/23/17 Time: 11:30 AM The following medications have been changed: Old: Insulin Glargine,Hum.rec.anlog (Lantus Solostar) 100 UNIT/1 ML INSULN.PEN 62 Units Inject into fatty tissue AT BEDTIME Qty = 15 New: Insulin Glargine,Hum.rec.anlog (Lantus Solostar) 100 UNIT/ML (3 ML) INSULN.PEN 15 Units SUB-Q TWICE DAILY Qty = 30 Comments: NOT GIVEN IN HOSPITAL Copies To: CARLITA PAGE DO
== END 2017-02-22 12:45 | disposition home health service (06) | DRG 291 ==
LOC: ERH 02:53 → 1NO 04:22 → ERHI 04:22 → ENRESERV 06:46 → 1NO 07:52
PROVIDERS: Emergency Medicine; Ophthalmology; ADMIT Student in an Organized Health Care Education/Training Program
DX: I13.2 Hypertensive heart and chronic kidney disease with heart failure and with stage 5 chronic kidney disease, or end stage renal disease (principal); I50.33 Acute on chronic diastolic (congestive) heart failure; J96.11 Chronic respiratory failure with hypoxia; N18.5 Chronic kidney disease, stage 5; E11.22 Type 2 diabetes mellitus with diabetic chronic kidney disease; E11.42 Type 2 diabetes mellitus with diabetic polyneuropathy; I25.10 Atherosclerotic heart disease of native coronary artery without angina pectoris; Z95.5 Presence of coronary angioplasty implant and graft; J44.9 Chronic obstructive pulmonary disease, unspecified; G47.33 Obstructive sleep apnea (adult) (pediatric); Z91.19 Patient's noncompliance with other medical treatment and regimen; E03.9 Hypothyroidism, unspecified; D63.1 Anemia in chronic kidney disease; Z85.850 Personal history of malignant neoplasm of thyroid; Z87.891 Personal history of nicotine dependence; Z79.4 Long term (current) use of insulin; N40.0 Benign prostatic hyperplasia without lower urinary tract symptoms; E78.5 Hyperlipidemia, unspecified
CPT/HCPCS: 1NP; 1NSP; 36415; 82436; 87040; 87086; 87147; 90834; 93005; 93010; 93306; 96374; 96375; J0131; J1644; J1940; J3490

== ENCOUNTER 2017-03-13 02:14 | Inpatient (IN) | payer OTHER, MEDICARE ==
[~2017-03-13] VITALS: Ht 177.8 cm; Wt 92.8 kg
[~2017-03-13 02:14] MED LIST changes: +LANTUS SOL100 UNIT/1 SQ; +LASIX40 M1 PO; +LEVEMIR100 UNIT/1 SC
--- NOTE | 2017-03-13 02:28 | ED DYSPNEA/ASTHMA COMPLAINT ---
History of Present Illness General Chief Complaint: Dyspnea (COPD, CHF, Other) Stated Complaint: SOB Source: patient, old records, EMS Exam Limitations: no limitations Vital Signs & Intake/Output Vital Signs & Intake/Output Vital Signs Date Time Temp Pulse Resp B/P B/P Pulse O2 O2 Flow FiO2 Mean Ox Delivery Rate 03/13 0236 97.6 83 28 117/65 97 Nasal 3.0L Cannula Allergies Coded Allergies: morphine (Mild, LOOPY 01/18/17) hydromorphone (DEPRESSED RESPIRATIONS 01/18/17) Uncoded Allergies: CONTRAST DYE (CONTRAINDICATED 01/11/17) Reconcile Medications Albuterol Sulfate (Proair Hfa) 90 MCG HFA.AER.AD 2 PUF INH Q4-6 PRN PRN SHORTNESS OF BREATH Alprazolam (Xanax) 0.5 MG TABLET 1 TAB PO BID PRN ANXIETY Amlodipine Besylate (Norvasc) 10 MG TABLET 1 TAB PO DAILY HTN (Reported) Aspirin (Ecotrin*) 81 MG TABLET.DR 1 TAB PO DAILY CAD (Reported) Atorvastatin Calcium (Lipitor) 80 MG TABLET 1 TAB PO DAILY CHOLESTEROL ( Reported) Budesonide/Formoterol Fumarate (Symbicort 160-4.5 Mcg Inhaler) 160 MCG-4.5 MCG/ ACTUATION HFA.AER.AD 2 PUF INH BID COPD Rinse your mouth after using inhaler. Clonidine HCl 0.1 MG TABLET 1 TAB PO BID BP (Reported) Folic Acid 1 MG TABLET 1 TAB PO DAILY SUPPLEMENT (Reported) Furosemide (Lasix) 40 MG TABLET 80 MG PO DAILY diuresis Insulin Glargine,Hum.rec.anlog (Lantus Solostar) 100 UNIT/ML (3 ML) INSULN.PEN 15 UNITS SQ BID DIABETES Isosorbide Mononitrate (Isosorbide Mononitrate ER) 60 MG TAB.ER.24H 1 TAB PO DAILY CAD Levothyroxine Sodium (Synthroid) 200 MCG TABLET 0.2 MG PO DAILY AC THYROID Levothyroxine Sodium (Synthroid) 25 MCG TABLET 0.025 MG PO DAILY AC THYROID Liraglutide (Victoza 3-Zeus) 0.6 MG/0.1 ML PEN.INJCTR 1.8 MG PO DAILY DIABETES (Reported) Metoprolol Tartrate 100 MG TABLET 1 TAB PO DAILY HEART (Reported) Ramelteon (Rozerem) 8 MG TABLET 1 TAB PO AT BEDTIME SLEEP HELP Sertraline HCl (Zoloft) 100 MG TABLET 1 TAB PO DAILY ANXIETY (Reported) Sertraline HCl (Zoloft) 50 MG TABLET 1 TAB PO DAILY ANXIETY Take 1/2 tab tomorrow (02/02), followed by 1 tab daily (02/03-) Sevelamer Carbonate (Renvela) 800 MG TABLET 2 TAB PO TID ESRD (Reported) Tamsulosin HCl 0.4 MG CAP.ER.24H 1 CAP PO DAILY PROSTATE (Reported) Ticagrelor (Brilinta) 90 MG TABLET 1 TAB PO BID CAD (Reported) Trazodone HCl 150 MG TABLET 1 TAB PO QPM SLEEP (Reported) Triage Nurses Notes Reviewed? yes HPI: This is 67 year old male with history of stage renal disease, CAD, 6 cardiac stents (3 in october 2016) who presents with 3 months of progressive worsening shortness of breath but worse in the last 2 days. He states that unless he bends forward and has his legs leaning off a bed, that he feels a 300 lb weight on his chest. Patient reports lasix 80 mg daily. Received full aspirin by EMS. Patient denies any significant change in his weight but states he goes up or down by half a pound. He states his numbers have recently been getting worse. He follows up with Dr. Shine, Dr. Moyer and Lakeisha Page DO. He uses oxygen at baseline 2 L. 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 Patient has a left arm fistula that he states is not mature to use yet. Past History Travel History Traveled to [place] past 21 day No Medical History Any Pertinent Medical History? see below for history Neurological: NONE EENT: NONE Cardiovascular: CAD, hypertension, hyperlipidemia, 6 CARDIAC STENTS Respiratory: COPD Gastrointestinal: constipation Hepatic: NONE Renal: chronic kidney disease, L ARM AVF PLACED 01/17/17 Musculoskeletal: chronic back pain, ?BACK PROBLEM REQUIRE SX Psychiatric: NONE Endocrine: diabetes Blood Disorders: NONE Cancer(s): THYROID [place] [employer]ER/Reproductive: NONE History of MRSA: No History of VRE: No History of CDIFF: No Surgical History Surgical History: CARDIAC STENTS X 6 THYROIDECTOMY LEFT LEG FX REPAIR ELBOW FX REPAIR SPINAL FUSION C4-C5 Psychosocial History Who do you live with Significant Other Services at Home None What is your primary language Malay Tobacco Use: Quit >30 days ago Family History Family History, If Any: FATHER FH: heart disease Relation not specified for: FH: diabetes mellitus FH: hypertension Hx Contributory? Yes Review of Systems Review of Systems Constitutional: Denies: chills, fever. EENTM: Reports: no symptoms. Respiratory: Reports: short of breath. Denies: cough, sputum production. Cardiovascular: Denies: chest pain. GI: Denies: abdominal pain. Genitourinary: Reports: no symptoms. Musculoskeletal: Reports: no symptoms. Skin: Reports: no symptoms. Neurological/Psychological: Reports: no symptoms. Hematologic/Endocrine: Denies: bruising, bleeding, polyuria, polydipsia. Immunologic/Allergic: Denies: splenectomy. All Other Systems: Reviewed and Negative Progress Differential Diagnosis: AMI, CHF, pneumonia, PERICARDITIS, UREMIA Plan of Care: Orders Procedure Date/time Status Consistent Carbohydrate 1 03/13 B Active LACTIC ACID 03/13 0524 Active Patient Data 03/[address] in observation 03/13 412 Active ED Holding Orders 03/13 412 Active Vital Signs 03/13 412 Active Code Status 03/13 041 Active EKG 03/13 0401 Active PARTIAL THROMBOPLASTIN TIME 03/13 224 Complete PROTHROMBIN TIME 03/13 224 Complete LACTIC ACID 03/13 224 Complete Telemetry/Track Service Person 03/13 221 Active BLOOD CULTURE 03/13 221 Active TROPONIN LEVEL 03/13 221 Complete COMPREHENSIVE METABOLIC PANEL 03/13 221 Complete CBC WITHOUT DIFFERENTIAL 03/13 221 Complete B-TYPE NATRIURETIC PEP (BNP) 03/13 221 Complete EKG 03/13 221 Active Laboratory Tests 03/13/17 0300: Lactic Acid 0.9 03/13/17 0300: Anion Gap 17 H, Estimated GFR 9 L, BUN/Creatinine Ratio 13.5, Glucose 127 H, Calcium 6.4 L, Total Bilirubin 0.9, AST 19, ALT 27, Alkaline Phosphatase 82, Troponin I 0.52 *H, Emj-C-Sthsxklxysc Pept 21630 H, Total Protein 6.8, Albumin 4.1, Globulin 2.7, Albumin/Globulin Ratio 1.5, PT 11.8, INR 1.13, APTT 29, CBC w Diff NO MAN DIFF REQ, RBC 3.49 L, MCV 77.9 L, MCH 26.4 L, RDW 13.8, MPV 7.4, Gran % 64.9, Lymphocytes % 21.5, Monocytes % 10.7 H, Eosinophils % 2.3, Basophils % 0.6, Absolute Granulocytes 4.1, Absolute Lymphocytes 1.3, Absolute Monocytes 0.7 H, Absolute Eosinophils 0.1, Absolute Basophils 0, PUBS MCHC 33.8 Microbiology 03/13 0315 BLOOD: Blood Culture - RECD 03/13 0300 BLOOD: Blood Culture - RECD Diagnostic Imaging: Viewed by Me: Radiology Read. Discussed w/RAD: Radiology Read. CXR Impression: PATIENT: DEEPIKA BRANDT PRESENT AGE: 67 PATIENT ACCOUNT NO: [id number] : 52 LOCATION: [facility] [place] ORDERING PHYSICIAN: YARON NIEVES MD SERVICE DATE: 03/13/17 EXAM TYPE: RAD - XRY -PORTABLE CHEST XRAY EXAMINATION: XR PORTABLE CHEST CLINICAL INFORMATION: Dyspnea for months. COMPARISON: 02/21/2017 TECHNIQUE: Portable frontal view of the chest was obtained. FINDINGS: Low lung volumes. Small pleural effusions with basilar opacities. Central vascular prominence. No overt edema. No pneumothorax. The cardiomediastinal silhouette is grossly unchanged, although visualization is limited. IMPRESSION: Small bilateral pleural effusions with associated airspace opacity. This is increased from prior. Central vascular prominence without overt edema. DICTATED BY: RICHARD SHEPHERD MD DATE/TIME DICTATED:03/13/17242 LOST AND FOUND CLERK:SAVANA DATE/TIME TRANSCRIBED:03/13/17242 CONFIDENTIAL, DO NOT COPY WITHOUT APPROPRIATE AUTHORIZATION. <Electronically signed in Other Vendor System> SIGNED BY: RICHARD SHEPHERD MD 03/13/17246 Initial ED EKG: NSR Prior EKG: unchanged Repeat EKG: unchanged Rhythm Strip: normal sinus rhythm Departure Departure Time of Disposition: 403 Disposition: STILL A PATIENT Condition: Stable Clinical Impression Primary Impression: Pleural effusion associated with hepatic disorder Secondary Impressions: Elevated troponin, Uremic pericarditis Referrals: LAKEISHA PAGE DO (PCP/Family) Geo SHINE MD, MD, ROMAN Departure Forms: Customer Survey General Discharge Information Admission Note Documentation of Exam: Documentation of any treatments & extenuating circumstances including Concerns Regarding Discharge (functional status, medication knowledge or non-compliance, living conditions, etc.) that warrant an admission rather than observation: Observation Note Spoke With: BENIGNO ELDRIDGE,[facility] Physician Advisor Notified: TESFAYE MONSON DO Place Patient In: Non-ED OBS Care Area Rationale for Observation: My rational for observation is as follows [TELE MONITOR, DIURESIS, ASPIRIN, NITRATES, CARDIOLOGY CONSULTATION, RENAL EVALUATION FOR POSSIBLE DIALYSIS WORSENING CREATINING IN SETTING OF CHF, TREND TROPONINS].
--- NOTE | 2017-03-13 02:35 | NUR ---
PER PT FEELING UNWELL X 3 MONTHS IN AND OUT OF HOSPITAL, REPORTS UNABLE TO SIT UP OR LIE FLAT ONLY GOOD BREATHING WHEN SITTING OFF SIDE OF BED, REPORTS INCREASED PEDAL EDEMA.. TOOK 3 SL NTG WITHOUT EFFECT. REPORTS NO INCREASED CP. GIVEN 324 MG ASA IN FIELD.
--- NOTE | 2017-03-13 02:38 | NUR ---
PER PT UNABLE TO USE L ARM SHUNT PLACED IN JANUARY FOR FUTURE DIALYSIS. RESTICTED BAND PLACED.
--- NOTE | 2017-03-13 02:47 | RADIOLOGY REPORT ---
EXAMINATION: XR PORTABLE CHEST CLINICAL INFORMATION: Dyspnea for months. COMPARISON: 02/21/2017 TECHNIQUE: Portable frontal view of the chest was obtained. FINDINGS: Low lung volumes. Small pleural effusions with basilar opacities. Central vascular prominence. No overt edema. No pneumothorax. The cardiomediastinal silhouette is grossly unchanged, although visualization is limited. IMPRESSION: Small bilateral pleural effusions with associated airspace opacity. This is increased from prior. Central vascular prominence without overt edema.
--- NOTE | 2017-03-13 02:52 | NUR ---
PT BASELINE 2 LITERS NC. NO RELIEF FROM FIELD NTG. ALERT MENTATING WELL
--- NOTE | 2017-03-13 03:10 | NUR ---
SITTING UP ON SIDE ON BED LEANING ON BEDSIDE TABLE --STTES "THIS IS THE BEST POSITION FOR ME" CM = NSR 70'S
[2017-03-13 03:15] LABS: ABSOLUTE BASOPHIL COUNT 0 /CUMM (0.0-0.2); ABSOLUTE EOSINOPHIL COUNT 0.1 /CUMM (0.0-0.7); ABSOLUTE GRANULOCYTE CT 4.1 /CUMM (1.4-6.5); ABSOLUTE LYMPH COUNT 1.3 /CUMM (1.2-3.4); ABSOLUTE MONOCYTE COUNT 0.7 /CUMM (0.10-0.60); BASOPHIL % 0.6 % (0.0-2.0); EOSINOPHIL % 2.3 % (0-5); GRANULOCYTE % 64.9 % (42.2-75.2); HEMATOCRIT 27.2 % (42-52); MEAN CORPUSCULAR HGB 26.4 PG (27.0-31.0); MEAN CORPUSCULAR HGB CONC 33.8 G/DL (33.0-37.0); MEAN CORPUSCULAR VOLUME 77.9 FL (80.0-94.0); MEAN PLATELET VOLUME 7.4 FL (7.4-10.4); PLATELET COUNT 369 /CUMM (130-400); RBC DISTRIBUTION WIDTH 13.8 % (11.5-14.5); RED BLOOD CELL CT 3.49 /CUMM (4.70-6.10); WHITE BLOOD CELL COUNT 6.3 /CUMM (4.8-10.8)
[2017-03-13 03:22] LABS: PT 11.8 SEC (9.4-12.5); PTT 29 SEC (25-37)
[2017-03-13] MEDS ORDERED: ZOLOFT100 M1 PO (03:35)
--- NOTE | 2017-03-13 04:59 | NUR ---
Emergency Dept [facility] Admit Note: To be admitted to [facility] by DR. PELAEZ with CHEST PAIN as the diagnosis, to TELE 1NO RM#[id number] A 23HR OBS location. Nursing Planner Scheduler and admitting notified 03/13/17 at [id number]
--- NOTE | 2017-03-13 05:10 | NUR ---
HOUSE STAFF HERE TO JF
--- NOTE | 2017-03-13 05:26 | History & Physical ---
LEE ELDRIDGE,JAKUBDON 03/13/17 0512: General Information and HPI MD Statement: I have seen and personally examined DEEPIKA BRANDT and documented this H&P. The patient is a 67 year old M who presented with a patient stated chief complaint of [chest pain]. Source of Information: patient, old records Exam Limitations: no limitations History of Present Illness: This is a 67 year old male with PMH of CAD s/p stent placement, DM 2 on insulin, peripheral neuropathy, hyperlipidemia, CKD V with l. arm fistula placed around 2 months ago, who comes to ED for a CC of chest pressure and SOB. Pt denies cp but states that he has chest pressure. It started over a month ago , and is what brought him for his last hospitalization. The chest pressure went away in the interim after he left [facility] but about 5 days ago the pressure came back "all of a sudden." Pt is unable to quantify orthopnea other than he was ablet to lie flat about 5 days ago but now he needs to sleep in upright position. Pain is NOT sharp or stabbing. Deep breath increases the pressure sensation. He states that this pain is different from his CO. He also states pain is positional and worsens when laying back, its better when he leans forward. Since last admission, for elevated troponin and chest pain, he states that he was initially improving. He was d/c on O2 but was he weaned off O2 at rest and was evenutally able to go 400 ft w/o O2. Pt states he has acutely worsened in the last 4-5 days. On inital questioning his complaints seem predominantly sleep related despite a potent cocktail of sleep medication. UPon further questioning he reveals that his O2 requirement has acutely worsened over the past 5 days and that his exercise tolerance has substantially acutely decreased. No change in medications. He has an immature fistual never used for dialysis. Has had dialysis one in past this Luke for double dose of contrast and apparently acute worsening of renal function. Fistula placed month and a half ago. No recent illnesses, no sick contacts, no recent travel. No nausea or vomiting. No diarrhea. Has intermittent constipation. Sees Dr. Moyer for pulm, Dr. Lee for cardio, Dr. Mclaughlin for nephro Allergies/Medications Allergies: Coded Allergies: morphine (Mild, LOOPY 01/18/17) hydromorphone (DEPRESSED RESPIRATIONS 01/18/17) Uncoded Allergies: CONTRAST DYE (CONTRAINDICATED 01/11/17) Home Med list Albuterol Sulfate (Proair Hfa) 90 MCG HFA.AER.AD 2 PUF INH Q4-6 PRN PRN SHORTNESS OF BREATH Alprazolam (Xanax) 0.5 MG TABLET 1 TAB PO BID PRN ANXIETY Amlodipine Besylate (Norvasc) 10 MG TABLET 1 TAB PO DAILY HTN (Reported) Aspirin (Ecotrin*) 81 MG TABLET.DR 1 TAB PO DAILY CAD (Reported) Atorvastatin Calcium (Lipitor) 80 MG TABLET 1 TAB PO DAILY CHOLESTEROL ( Reported) Budesonide/Formoterol Fumarate (Symbicort 160-4.5 Mcg Inhaler) 160 MCG-4.5 MCG/ ACTUATION HFA.AER.AD 2 PUF INH BID COPD Rinse your mouth after using inhaler. Clonidine HCl 0.1 MG TABLET 1 TAB PO BID BP (Reported) Folic Acid 1 MG TABLET 1 TAB PO DAILY SUPPLEMENT (Reported) Furosemide (Lasix) 40 MG TABLET 80 MG PO DAILY diuresis Insulin Glargine,Hum.rec.anlog (Lantus Solostar) 100 UNIT/ML (3 ML) INSULN.PEN 15 UNITS SQ BID DIABETES Isosorbide Mononitrate (Isosorbide Mononitrate ER) 60 MG TAB.ER.24H 1 TAB PO DAILY CAD Levothyroxine Sodium (Synthroid) 200 MCG TABLET 0.2 MG PO DAILY AC THYROID Levothyroxine Sodium (Synthroid) 25 MCG TABLET 0.025 MG PO DAILY AC THYROID Liraglutide (Victoza 3-Zeus) 0.6 MG/0.1 ML PEN.INJCTR 1.8 MG PO DAILY DIABETES (Reported) Metoprolol Tartrate 100 MG TABLET 1 TAB PO DAILY HEART (Reported) Ramelteon (Rozerem) 8 MG TABLET 1 TAB PO AT BEDTIME SLEEP HELP Sertraline HCl (Zoloft) 100 MG TABLET 1 TAB PO DAILY ANXIETY (Reported) Sertraline HCl (Zoloft) 50 MG TABLET 1 TAB PO DAILY ANXIETY Take 1/2 tab tomorrow (02/02), followed by 1 tab daily (02/03-) Sevelamer Carbonate (Renvela) 800 MG TABLET 2 TAB PO TID ESRD (Reported) Tamsulosin HCl 0.4 MG CAP.ER.24H 1 CAP PO DAILY PROSTATE (Reported) Ticagrelor (Brilinta) 90 MG TABLET 1 TAB PO BID CAD (Reported) Trazodone HCl 150 MG TABLET 1 TAB PO QPM SLEEP (Reported) Past History Travel History Traveled to [place] past 21 day No Medical History Neurological: NONE EENT: NONE Cardiovascular: CAD, hypertension, hyperlipidemia, 6 CARDIAC STENTS Respiratory: COPD Gastrointestinal: constipation Hepatic: NONE Renal: chronic kidney disease, L ARM AVF PLACED 01/17/17 Musculoskeletal: chronic back pain, ?BACK PROBLEM REQUIRE SX Psychiatric: NONE Endocrine: diabetes Blood Disorders: NONE Cancer(s): THYROID CA 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 Ambulation: cane IADLs Independent: shopping, housework, finances, food prep, telephone, transportation , medication admin. Review of Systems Review of Systems Constitutional: Reports: see HPI. Exam & Diagnostic Data Last 24 Hrs of Vital Signs/I&O Vital Signs Date Time Temp Pulse Resp B/P B/P Pulse O2 O2 Flow FiO2 Mean Ox Delivery Rate 03/13 0843 Nasal 2.0L Cannula 03/13 0644 92 Nasal 3.0L Cannula 03/13 0637 97.5 78 22 138/68 92 Nasal 3.0L Cannula / 0545 97.1 75 20 125/63 94 Nasal 4.0L Cannula 03/13 0340 72 16 110/62 96 Nasal 2.0L Cannula / 0236 97.6 83 28 117/65 97 Nasal 3.0L Cannula Intake & Output 03/13 1600 / 0800 03/13 0000 Intake Total Output Total Balance Patient 97.296 kg Weight Weight Chair scale Measurement Method Physical Exam General Appearance Alert, Oriented X3, Cooperative, Mild Distress HEENT Atraumatic, PERRLA, EOMI Neck Supple Cardiovascular Normal S1, Normal S2 Lungs Normal Air Movement Abdomen Normal Bowel Sounds, Soft, No Tenderness Extremities fistula l. kayli with audible flow, 2+ edema in bilat LE. Assessment/Plan Assessment: This is a 67 yo male with significant cardiac history for CAD and stent placement, T2DM on insulin, hyperlipidemia, CKD V who comes for CC Sob and Chest pressure. Pt is placed in telemetry for obs. PLAN Chest pressure: Pt states that his pressure started over a month ago but it seems to have worsened in the last five days. There was initial concern for pericarditis given the positional nature of his pain and his acutel worsening renal function. However, given his description of pain, it doesn't seem to fit; however cannot rule out. His presentation of orthopnea, worsening bilat LE edema and SOB seems to fit with CHF exacerbation. Pt was seen by Dr. Lee last week and asked to continue Lasix. Pt does have + trop of .52; however he has had troponins consistently positive in his previous admissions. * vitals * I/Os * daily weight * trop and ekg to rule out acs * cardio consult * Echo * Lasix 40mg IV BID * Metoprolol PO bid * ASA 81 Acute Injury on CKD V: Pt now has Cr 6. This is worse than his baseline, likely 2/2 his worsening cardiovascular status. * renal consult DM: Chronic and stable. * FS * RISS * Levemir As Ranked By This Provider Problem List: 1. Elevated troponin 2. Acute on chronic renal failure Core Measures/Miscellaneous Acute Coronary Syndrome ACS Diagnosis: No Cerebrovascular Accident CVA/TIA Diagnosis: No Congestive Heart Failure CHF Diagnosis: No Venous Thromboembolism VTE Risk Factors: Acute medical illness, Age > 40 No [facility] VTE prophylaxis d/t: VTE low risk, No contraindications No VTE Pharm Prophylaxis d/t: VTE low risk, No contraindications VTE Diagnosis: No VTE Type: NONE VTE Confirmed by (Test): NONE Severe Sepsis Severe Sepsis Present: No Septic Shock Septic Shock Present: No Miscellaneous Documentation Attending Case Discussed With: BENIGNO ELDRIDGE,[facility] Primary Care Physician: CARLITA PAGE DO Patient sees these Specialists UNKNOWN Level of Patient Care: Telemetry HENRI FIGUEROA MD,TESHA 03/13/17 0541: Resident Review Statement Resident Statement: examined this patient, discussed with product management intern, agreed with product management intern, reviewed EMR data (avail) Other Findings: 67-year-old male with past medical history significant for coronary artery disease status post stent placement, diabetes type 2 on insulin dependence, peripheral neuropathy, hyperlipidemia, COPD, chronic kidney disease stage V, left-sided fistula placed by nephrology pocket which or, came to emergency department with chief complaint of inability to sleep because of chest pressure on lying down and shortness of breath. Patient categorically denied any chest pain. According to the patient when he was discharged from [facility] last time, he was able to wean him off from oxygen and was walking without requiring any oxygen. He was also able to sleep straight on the bed. 5 days ago patient started feeling some trouble breathing and was only able to sleep for 3-1/2 hours in a recliner. Patient started requiring 2 L of oxygen but that still did not help him to sleep and decreases shortness of breath on exertion. According to the patient the symptoms started only 5 days ago. He denied any upper respiratory tract infection, any sick contacts or any chest pain during this course of time. Patient also noticed increased bilateral lower extremity edema during this course of time. Vitals on admission, patient afebrile no tachycardia but tachypnea, systolic blood pressure of 117 diastolic 65, oxygen saturation of 97 on 3 L of oxygen. On examination patient was alert and oriented to time person and place and mild distress when he laid down and was able to sit with minimal discomfort in sitting position. S1 and S2 audible without any rub or murmur. Left arm revealed healing AV fistula, abdominal examination was benign, bilateral lower extremity 2-3+ edema, grossly intact neurological examination. Patient was admitted on telemetry so for the management of following problems Acute on chronic congestive heart failure with preserved ejection fraction/rule out ACS -Most likely acute CHF exacerbation vs ACS vs non compliance with medications -No acute EKG ST changes and negative troponin 0.52 - Hemodynamically stable, 2-3+ve B/L Lowr extremity edema - CXR Small bilateral pleural effusions with associated airspace opacity. This is increased from prior. Central vascular prominence without overt edema. Patient saw Dr. Lee a week ago before this admission stored continue by mouth Lasix. - Admit to telemetry - Vitals q Shift - Monitor I/O - Daily weight - Trend troponins and EKG to rule out the possibility of ACS, positive troponins of 0.52 might be demand ischemia - Cardio consult placed - Last Echo was done in 02/21/17 and showed left ventricular ejection fraction estimated at 50-55%. - ECHO - Consider Furosemide 40mg IV BID for now - Continue Metoprolol PO Daily - lipid panel checked recently - ASA 81 mg Po daily. - CHF diet Acute on chronic kidney injury Most likely secondary to decreased effective arterial volume secondary to congestive heart failure leading to acute on chronic kidney injury. Patient might respond to Lasix, follow-up with morning BEP. Renal consult placed Insulin-dependent diabetes mellitus Accu-Cheks Continuing insulin sliding scale and long-acting insulin Patient is on subcutaneous heparin for DVT prophylaxis Patient is full code Patient is currently on diabetic diet Patient is on pain pathway but will only use mild pain pathway since patient is allergic to morphine and hydromorphone. Patient is under observation on Telemetry BENIGNO ELDRIDGE, [facility] 03/13/17 0707: Attending MD Review Statement Attending Statement Attending MD Statement: examined this patient, discuss w/resident/PA/PORTER SAMPLE CASE, agreed w/resident/PA/PORTER SAMPLE CASE Attending Assessment/Plan: 67 yo M with h/o CAD s/p stents (Oct 2016), COPD, T2DM, neuropathy, chronic hypoxic respiratory failure on 2L O2 (that was recently weaned off per patient), MILES noncompliant with CPAP, HFpEF, CKD stage 5 s/p AV fistula 2 months ago, has been admitted thrice over past 2 months (most recently discharged February 22) for chest pain, dyspnea and positive troponins, is here for c/o chest pressure ( under bilateral breast) worse with lying down better leaning forward, dyspnea on exertion, and LE edema over the past 1 week. He reports compliance with Lasix. No recent URI. VSS, except for sats 92% on 3L. Labs: H/H 9.2/27.2, microcytic anemia, Na 135, AG 17, BUN 88, creat 6.5, lactic acid normal, Ca 6.4, Trop 0.52, proBNP 82436. CXR: small bilateral pleural effusions increased from prior, no overt edema. Echo (February 2017): EF 50-55%. EKG: SR, LBBB. 1. Acute on chronic HfpEF with worsening renal functions, demand ischemia vs. NSTEMI. Uremic pericarditis is a possibility given his symptoms. Tele 23 Obs, strict I/O's, daily weights, IV lasix 40 mg given in ER, monitor diuresis, reassess need for further lasix in AM, monitor renal functions. Trend troponin, no need to repeat Echo. Obtain Cardio and nephro consult. ?eventual need for dialysis. Continue aspirin, imdur, brillinta and metoprolol. 2. Chronic microcytic anemia ?anemia of chronic disease in the setting of renal failure. 3. Diabetes management. DVT ppx Hep SC. Full code
--- NOTE | 2017-03-13 05:51 | NUR ---
REPORT CALLED TO CASSIE COLBERT
[2017-03-13 06:37] VITALS: BP 138/68
--- NOTE | 2017-03-13 06:46 | NUR ---
PT ARRIVED TO THE UNIT APPROX 0615 VIA STRETCHER. WEIGHED PRIOR TO PLACING IN HOSPITAL BED- 214.8LBS. A/OX3. CLEAR SPEECH. C/O WEAKNESS WHEN AMBULATING LONG DISTANCES. LUNG SOUNDS DIMINISHED AT BASES. C/O EX SOB. NO COUGH. NAD. SAT 92% ON 3LNC. BASELINE 2LNC. RRR. STATES NO CHEST PAIN WHEN SITTING UP BUT PRESSURE WHEN LAYING DOWN. BLE +1 EDEMA. SKIN INTACT OTHERWISE. VSS. LAYING COMFORTABLY IN BED. WILL CTM.
--- NOTE | 2017-03-13 09:52 | PN- Att Addend ---
Attending Addendum Attending Brief Note Patient seen and examined, claims that he received breathing treatment if her breathing is slightly better this morning but he is sure that this improvement but not last longer. Vital Signs Date Time Temp Pulse Resp B/P B/P Pulse O2 O2 Flow FiO2 Mean Ox Delivery Rate 03/13 0843 Nasal 2.0L Cannula 03/13 0644 92 Nasal 3.0L Cannula 03/13 0637 97.5 78 22 138/68 92 Nasal 3.0L Cannula 03/13 0545 97.1 75 20 125/63 94 Nasal 4.0L Cannula 03/13 0340 72 16 110/62 96 Nasal 2.0L Cannula 03/13 0236 97.6 83 28 117/65 97 Nasal 3.0L Cannula on exam; aox3, nad. cv; s1, s2, rrr resp; b/l basal crackles. abd; soft, nt, bs+ ext 1+ edema. Laboratory Tests 03/13 03/13 03/13 0850 0524 0300 Chemistry Sodium Pending Potassium Pending Chloride Pending Carbon Dioxide Pending Anion Gap Pending BUN Pending Creatinine Pending BUN/Creatinine Ratio Pending Lactic Acid (0.7 - 2.1 mmol/L) Cancelled 0.9 Troponin I Pending 03/13 0300 Chemistry Sodium (137 - 145 mmol/L) 135 L Potassium (3.5 - 5.1 mmol/L) 3.9 Chloride (98 - 107 mmol/L) 95 L Carbon Dioxide (22 - 30 mmol/L) 22 Anion Gap (5 - 16) 17 H BUN (9 - 20 mg/dL) 88 H Creatinine (0.7 - 1.2 mg/dL) 6.5 *H Estimated GFR (>60 ml/min) 9 L BUN/Creatinine Ratio (7 - 25 %) 13.5 Glucose (65 - 99 mg/dL) 127 H Calcium (8.4 - 10.2 mg/dL) 6.4 L Total Bilirubin (0.2 - 1.3 mg/dL) 0.9 AST (17 - 59 U/L) 19 ALT (21 - 72 U/L) 27 Alkaline Phosphatase (< 127 U/L) 82 Troponin I (<0.11 ng/ml) 0.52 *H [id number] Pept (<125 pg/mL) 01146 H Total Protein (6.3 - 8.2 g/dL) 6.8 Albumin (3.5 - 5.0 g/dL) 4.1 Globulin (1.9 - 4.2 gm/dL) 2.7 Albumin/Globulin Ratio (1.1 - 2.2 %) 1.5 Coagulation PT (9.4 - 12.5 SEC) 11.8 INR (0.90 - 1.17) 1.13 APTT (25 - 37 SEC) 29 Hematology CBC w Diff NO MAN DIFF REQ WBC (4.8 - 10.8 /CUMM) 6.3 RBC (4.70 - 6.10 /CUMM) 3.49 L Hgb (14.0 - 18.0 G/DL) 9.2 L Hct (42 - 52 %) 27.2 L MCV (80.0 - 94.0 FL) 77.9 L MCH (27.0 - 31.0 PG) 26.4 L RDW (11.5 - 14.5 %) 13.8 Plt Count (130 - 400 /CUMM) 369 MPV (7.4 - 10.4 FL) 7.4 Gran % (42.2 - 75.2 %) 64.9 Lymphocytes % (20.5 - 51.1 %) 21.5 Monocytes % (1.7 - 9.3 %) 10.7 H Eosinophils % (0 - 5 %) 2.3 Basophils % (0.0 - 2.0 %) 0.6 Absolute Granulocytes (1.4 - 6.5 /CUMM) 4.1 Absolute Lymphocytes (1.2 - 3.4 /CUMM) 1.3 Absolute Monocytes (0.10 - 0.60 /CUMM) 0.7 H Absolute Eosinophils (0.0 - 0.7 /CUMM) 0.1 Absolute Basophils (0.0 - 0.2 /CUMM) 0 PUBS MCHC (33.0 - 37.0 G/DL) 33.8 A/P; 67 y/o M with pmh sig for CAD s/p stents (Oct 2016), COPD, T2DM, neuropathy , chronic hypoxic respiratory failure on 2L O2 (that was recently weaned off per patient), MILES noncompliant with CPAP, HFpEF, CKD stage 5 s/p AV fistula 2 months ago, has been admitted multiple times for the same complaint and now is placed on telemetry observation with some chest pressure, chronically positive troponins as well as some fluid overload on the chest x-ray. This morning second troponin is pending. Continue IV Lasix at 40 mg daily. Nephrology and cardiology consults are pending. Continue other current home medications/current medications. Nephrology to decide about timing for hemodialysis. DVT px; Hep sq.
--- NOTE | 2017-03-13 13:04 | Cons- Cardiology ---
General Information and HPI Consulting Request Date of Consult: 03/13/17 Requested By: BENIGNO ELDRIDGE,JOSE LUIS Reason for Consult: Congestive heart failure Source of Information: patient, old records History of Present Illness: This is a 67 y/o Male with a PMF of CAD s/p multiple PCI, diabetes, HTN, CKD stage 5 s/p AV fistula creation (not mature), and HFpEF with multiple recent admissions for dyspnea with volume overload, chest discomfort, and elevated troponin. He presents to [place] with recurrent symptoms, primarily dyspnea with worsening orthopnea and increased LE edema. Also asscoaited with chest discomfort although somewhat different from his pre-PCI angina earlier this year. Denies syncope, slurring of speech, focal weakness, or fevers. Has decreased exertional tolerance. Recently weaned off home O2. Allergies/Medications Allergies: Coded Allergies: morphine (Mild, LOOPY 01/18/17) hydromorphone (DEPRESSED RESPIRATIONS 01/18/17) Uncoded Allergies: CONTRAST DYE (CONTRAINDICATED 01/11/17) Home Med List: Albuterol Sulfate (Proair Hfa) 90 MCG HFA.AER.AD 2 PUF INH Q4-6 PRN PRN SHORTNESS OF BREATH Alprazolam (Xanax) 0.5 MG TABLET 1 TAB PO BID PRN ANXIETY Amlodipine Besylate (Norvasc) 10 MG TABLET 1 TAB PO DAILY HTN (Reported) Aspirin (Ecotrin*) 81 MG TABLET.DR 1 TAB PO DAILY CAD (Reported) Atorvastatin Calcium (Lipitor) 80 MG TABLET 1 TAB PO DAILY CHOLESTEROL ( Reported) Budesonide/Formoterol Fumarate (Symbicort 160-4.5 Mcg Inhaler) 160 MCG-4.5 MCG/ ACTUATION HFA.AER.AD 2 PUF INH BID COPD Rinse your mouth after using inhaler. Clonidine HCl 0.1 MG TABLET 1 TAB PO BID BP (Reported) Folic Acid 1 MG TABLET 1 TAB PO DAILY SUPPLEMENT (Reported) Furosemide (Lasix) 40 MG TABLET 80 MG PO DAILY diuresis Insulin Glargine,Hum.rec.anlog (Lantus Solostar) 100 UNIT/ML (3 ML) INSULN.PEN 15 UNITS SQ BID DIABETES Isosorbide Mononitrate (Isosorbide Mononitrate ER) 60 MG TAB.ER.24H 1 TAB PO DAILY CAD Levothyroxine Sodium (Synthroid) 200 MCG TABLET 0.2 MG PO DAILY AC THYROID Levothyroxine Sodium (Synthroid) 25 MCG TABLET 0.025 MG PO DAILY AC THYROID Liraglutide (Victoza 3-Zeus) 0.6 MG/0.1 ML PEN.INJCTR 1.8 MG PO DAILY DIABETES (Reported) Metoprolol Tartrate 100 MG TABLET 1 TAB PO DAILY HEART (Reported) Ramelteon (Rozerem) 8 MG TABLET 1 TAB PO AT BEDTIME SLEEP HELP Sertraline HCl (Zoloft) 100 MG TABLET 1 TAB PO DAILY ANXIETY (Reported) Sertraline HCl (Zoloft) 50 MG TABLET 1 TAB PO DAILY ANXIETY Take 1/2 tab tomorrow (02/02), followed by 1 tab daily (02/03-) Sevelamer Carbonate (Renvela) 800 MG TABLET 2 TAB PO TID ESRD (Reported) Tamsulosin HCl 0.4 MG CAP.ER.24H 1 CAP PO DAILY PROSTATE (Reported) Ticagrelor (Brilinta) 90 MG TABLET 1 TAB PO BID CAD (Reported) Trazodone HCl 150 MG TABLET 1 TAB PO QPM SLEEP (Reported) Current Medications: Current Medications Sig/Julissa Start time Last Medication Dose Route Stop Time Status Admin Acetaminophen 650 MG Q6P PRN 03/13 0700 AC PO Albuterol Sulfate 3 ML BID 03/13 1000 AC INH Albuterol Sulfate 2 PUF Q4-6 PRN PRN 03/13 0600 AC INH Alprazolam 0.5 MG BID 03/13 1000 AC 03/13 PO 03/20 0959 1049 Aspirin Buffered 81 MG DAILY 03/13 1000 AC 03/13 PO 1050 Atorvastatin Calcium 80 MG 1700 03/13 1700 AC PO Budesonide/ 2 PUF BID 03/13 1000 AC 03/13 Formoterol Fumarate INH 1051 Folic Acid 1 MG DAILY 03/13 1000 AC 03/13 PO 1050 Furosemide 0 .STK-MED ONE 03/13 0419 DC IV Furosemide 40 MG ONCE ONE 03/13 0300 DC 03/13 IV 03/13 0301 0417 Heparin Sodium 5,000 UNIT Q8 03/13 0658 AC (Porcine) SC Insulin Aspart 0 TIDAC 03/13 0800 AC 03/13 SC 1213 Insulin Detemir 15 UNITS BID 03/13 1000 AC 03/13 SC 1049 Isosorbide 60 MG DAILY 03/13 1000 AC 06/ Mononitrate PO 1050 Levothyroxine Sodium 0.2 MG DAILY AC 03/13 0700 AC 06/ PO 1049 Metoprolol Tartrate 100 MG DAILY 03/13 1000 AC / PO 1050 Ramelteon 8 MG AT BEDTIME /04 2200 AC PO Sertraline HCl 100 MG DAILY / 1000 AC 06/ PO 1050 Ticagrelor 90 MG BID 03/13 1000 AC 06/ PO 1049 Trazodone HCl 150 MG AT BEDTIME /04 2200 AC PO Review of Systems Review of Systems: Review of systems as per HPI. The remainder of a 10 point review of systems was reviewed and was otherwise negative. 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 Ambulation: cane IADLs Independent: shopping, housework, finances, food prep, telephone, transportation , medication admin. Exam & Diagnostic Data Vital Signs and I&O Vital Signs Date Time Temp Pulse Resp B/P B/P Pulse O2 O2 Flow FiO2 Mean Ox Delivery Rate / 1050 78 138/68 / 1050 78 138/68 / 0843 Nasal 2.0L Cannula 03/13 0644 92 Nasal 3.0L Cannula 03/13 0637 97.5 78 22 138/68 92 Nasal 3.0L Cannula 03/13 0545 97.1 75 20 125/63 94 Nasal 4.0L Cannula 03/13 0340 72 16 110/62 96 Nasal 2.0L Cannula 03/13 0236 97.6 83 28 117/65 97 Nasal 3.0L Cannula Intake & Output 03/13 1600 03/13 0800 03/13 0000 03/12 1600 03/12 0800 03/12 0000 Intake Total Output Total Balance Patient 215 lb Weight Weight Chair scale Measurement Method Physical Exam: General: no apparent distress. Alert. On nasal cannula. Eyes: No obvious scleral icterus. HEENT: Mild JVD Cardiovascular: Normal intensity S1/S2. PMI not grossly displaced. Respiratory: Basilar rales Abdomen: no guarding or rebound tenderness. Musculoskeletal: No clubbing or cyanosis noted, 1+ lower extremity edema Skin: Warm, fistula noted Neurologic: No gross focal deficits noted. Labs/Angus Results: Laboratory Tests 03/13 03/13 03/13 03/13 1430 0850 0524 0300 Chemistry Sodium (137 - 145 mmol/L) 137 Potassium (3.5 - 5.1 mmol/L) 3.8 Chloride (98 - 107 mmol/L) 98 Carbon Dioxide (22 - 30 mmol/L) 22 Anion Gap (5 - 16) 17 H BUN (9 - 20 mg/dL) 86 H Creatinine (0.7 - 1.2 mg/dL) 6.1 *H Estimated GFR (>60 ml/min) 9 L BUN/Creatinine Ratio (7 - 25 %) 14.1 Lactic Acid (0.7 - 2.1 mmol/L) Cancelled 0.9 Troponin I (<0.11 ng/ml) 0.42 *H 0.46 *H 03/13 0300 Chemistry Sodium (137 - 145 mmol/L) 135 L Potassium (3.5 - 5.1 mmol/L) 3.9 Chloride (98 - 107 mmol/L) 95 L Carbon Dioxide (22 - 30 mmol/L) 22 Anion Gap (5 - 16) 17 H BUN (9 - 20 mg/dL) 88 H Creatinine (0.7 - 1.2 mg/dL) 6.5 *H Estimated GFR (>60 ml/min) 9 L BUN/Creatinine Ratio (7 - 25 %) 13.5 Glucose (65 - 99 mg/dL) 127 H Calcium (8.4 - 10.2 mg/dL) 6.4 L Total Bilirubin (0.2 - 1.3 mg/dL) 0.9 AST (17 - 59 U/L) 19 ALT (21 - 72 U/L) 27 Alkaline Phosphatase (< 127 U/L) 82 Troponin I (<0.11 ng/ml) 0.52 *H Uvo-W-Gqumzvwqhyh Pept (<125 pg/mL) 47583 H Total Protein (6.3 - 8.2 g/dL) 6.8 Albumin (3.5 - 5.0 g/dL) 4.1 Globulin (1.9 - 4.2 gm/dL) 2.7 Albumin/Globulin Ratio (1.1 - 2.2 %) 1.5 Coagulation PT (9.4 - 12.5 SEC) 11.8 INR (0.90 - 1.17) 1.13 APTT (25 - 37 SEC) 29 Hematology CBC w Diff NO MAN DIFF REQ WBC (4.8 - 10.8 /CUMM) 6.3 RBC (4.70 - 6.10 /CUMM) 3.49 L Hgb (14.0 - 18.0 G/DL) 9.2 L Hct (42 - 52 %) 27.2 L MCV (80.0 - 94.0 FL) 77.9 L MCH (27.0 - 31.0 PG) 26.4 L RDW (11.5 - 14.5 %) 13.8 Plt Count (130 - 400 /CUMM) 369 MPV (7.4 - 10.4 FL) 7.4 Gran % (42.2 - 75.2 %) 64.9 Lymphocytes % (20.5 - 51.1 %) 21.5 Monocytes % (1.7 - 9.3 %) 10.7 H Eosinophils % (0 - 5 %) 2.3 Basophils % (0.0 - 2.0 %) 0.6 Absolute Granulocytes (1.4 - 6.5 /CUMM) 4.1 Absolute Lymphocytes (1.2 - 3.4 /CUMM) 1.3 Absolute Monocytes (0.10 - 0.60 /CUMM) 0.7 H Absolute Eosinophils (0.0 - 0.7 /CUMM) 0.1 Absolute Basophils (0.0 - 0.2 /CUMM) 0 PUBS MCHC (33.0 - 37.0 G/DL) 33.8 Diagnostic Data EKG Results Tracing personally reviewed; SR at 77 bpm, prwp, LVH with QRS widening CXR Results IMPRESSION: Small bilateral pleural effusions with associated airspace opacity. This is increased from prior. Central vascular prominence without overt edema. Other Results Recent Echo: 1. This was a technically difficult examination. 2. Aortic sclerosis is present with no valvular stenosis or insufficiency. 3. Mitral leaflet thickening is present with anular calcification and mild to moderate mitral insufficiency with moderate left atrial enlargement. 4. There is no significant pericardial fluid present. 5. The left ventricular chamber size is normal with hypokinesia of the distal septum and apex and an ejection fraction of approximately 50-55%. 6. Minimal to mild tricuspid aind pulmonic insufficiency are present. The RV systolic pressure was not accurately assessed. Telemetry tracings personally reviewed; shows sinus rhythm. Assessment/Plan Assessment/Plan 1. Acute on chronic HFpEF 2. CKD V with immature AV fistula 3. CAD s/p prior multiple PCI 4. Demand ischemia from volume overload 5. HTN/diabetes 6. Anemia Symptoms primarily from recurrent volume overload with flat troponin curve not consistent with acute coronary syndrome. Dialysis plan per Nephrology; AV fistula has not been felt mature for use and patient has been reluctant to use dialysis catheter. Agree with need for IV diuresis despite increased creatinine. He is not hyperkalemic. Continue antianginal regimen including B-surya and Imdur. Ranexa is not recommended in advanced CKD. Repeat Echo not required at this time. Continue on telemetry today. James Romero MD [facility] Consult Acknowledgment - Thank you for your consult request.
--- NOTE | 2017-03-13 13:36 | Cons- Nephrology ---
General Information and HPI Consulting Request Date of Consult: 03/13/17 Requested By: BENIGNO ELDRIDGE,RICHAlia Reason for Consult: CKD History of Present Illness: 68 yo male with history of DM, htn, severe CAD s/p multiple stents. He has advanced ckd followed in [place], had AVF created in January of this year. He has had SABRINA from cardiac cath in past and requried a few days of acute PD. He is now admitted with chest pressure, SOB. He has a large anxiety component to his discomfort but is volume overloaded. He was started on IV lasix and had had some improvement in his symptoms. FH: negative for renal disease. Allergies/Medications Allergies: Coded Allergies: morphine (Mild, LOOPY 01/18/17) hydromorphone (DEPRESSED RESPIRATIONS 01/18/17) Uncoded Allergies: CONTRAST DYE (CONTRAINDICATED 01/11/17) Home Med List: Albuterol Sulfate (Proair Hfa) 90 MCG HFA.AER.AD 2 PUF INH Q4-6 PRN PRN SHORTNESS OF BREATH Alprazolam (Xanax) 0.5 MG TABLET 1 TAB PO BID PRN ANXIETY Amlodipine Besylate (Norvasc) 10 MG TABLET 1 TAB PO DAILY HTN (Reported) Aspirin (Ecotrin*) 81 MG TABLET.DR 1 TAB PO DAILY CAD (Reported) Atorvastatin Calcium (Lipitor) 80 MG TABLET 1 TAB PO DAILY CHOLESTEROL ( Reported) Budesonide/Formoterol Fumarate (Symbicort 160-4.5 Mcg Inhaler) 160 MCG-4.5 MCG/ ACTUATION HFA.AER.AD 2 PUF INH BID COPD Rinse your mouth after using inhaler. Clonidine HCl 0.1 MG TABLET 1 TAB PO BID BP (Reported) Folic Acid 1 MG TABLET 1 TAB PO DAILY SUPPLEMENT (Reported) Furosemide (Lasix) 40 MG TABLET 80 MG PO DAILY diuresis Insulin Glargine,Hum.rec.anlog (Lantus Solostar) 100 UNIT/ML (3 ML) INSULN.PEN 15 UNITS SQ BID DIABETES Isosorbide Mononitrate (Isosorbide Mononitrate ER) 60 MG TAB.ER.24H 1 TAB PO DAILY CAD Levothyroxine Sodium (Synthroid) 200 MCG TABLET 0.2 MG PO DAILY AC THYROID Levothyroxine Sodium (Synthroid) 25 MCG TABLET 0.025 MG PO DAILY AC THYROID Liraglutide (Victoza 3-Zeus) 0.6 MG/0.1 ML PEN.INJCTR 1.8 MG PO DAILY DIABETES (Reported) Metoprolol Tartrate 100 MG TABLET 1 TAB PO DAILY HEART (Reported) Ramelteon (Rozerem) 8 MG TABLET 1 TAB PO AT BEDTIME SLEEP HELP Sertraline HCl (Zoloft) 100 MG TABLET 1 TAB PO DAILY ANXIETY (Reported) Sertraline HCl (Zoloft) 50 MG TABLET 1 TAB PO DAILY ANXIETY Take 1/2 tab tomorrow (02/02), followed by 1 tab daily (02/03-) Sevelamer Carbonate (Renvela) 800 MG TABLET 2 TAB PO TID ESRD (Reported) Tamsulosin HCl 0.4 MG CAP.ER.24H 1 CAP PO DAILY PROSTATE (Reported) Ticagrelor (Brilinta) 90 MG TABLET 1 TAB PO BID CAD (Reported) Trazodone HCl 150 MG TABLET 1 TAB PO QPM SLEEP (Reported) Current Medications: Current Medications Sig/Julissa Start time Last Medication Dose Route Stop Time Status Admin Acetaminophen 650 MG Q6P PRN 03/13 0700 AC PO Albuterol Sulfate 3 ML BID 03/13 1000 AC INH Albuterol Sulfate 2 PUF Q4-6 PRN PRN 03/13 0600 AC INH Alprazolam 0.5 MG BID 03/13 1000 AC 03/13 PO 03/20 0959 1049 Aspirin Buffered 81 MG DAILY 03/13 1000 AC 03/13 PO 1050 Atorvastatin Calcium 80 MG 1700 03/13 1700 AC PO Budesonide/ 2 PUF BID 03/13 1000 AC 03/13 Formoterol Fumarate INH 1051 Folic Acid 1 MG DAILY 03/13 1000 AC 03/13 PO 1050 Furosemide 40 MG DAILY 03/13 1325 AC IV Furosemide 0 .STK-MED ONE 03/13 0419 DC IV Furosemide 40 MG ONCE ONE 03/13 0300 DC / IV 03/13 0301 0417 Heparin Sodium 5,000 UNIT Q8 03/13 0658 AC (Porcine) SC Insulin Aspart 0 TIDAC 03/13 0800 AC 03/13 SC 1213 Insulin Detemir 15 UNITS BID 03/13 1000 AC 03/13 SC 1049 Isosorbide 60 MG DAILY 03/13 1000 AC 03/13 Mononitrate PO 1050 Levothyroxine Sodium 0.2 MG DAILY AC 03/13 0700 AC / PO 1049 Metoprolol Tartrate 100 MG DAILY 03/13 1000 AC 06/ PO 1050 Ramelteon 8 MG AT BEDTIME / 2200 AC PO Sertraline HCl 100 MG DAILY / 1000 AC 06/ PO 1050 Ticagrelor 90 MG BID / 1000 AC 06/ PO 1049 Trazodone HCl 150 MG AT BEDTIME / 2200 AC PO Review of Systems Review of Systems: Negative except as noted above. 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 Ambulation: cane IADLs Independent: shopping, housework, finances, food prep, telephone, transportation , medication admin. Exam & Diagnostic Data Vital Signs and I&O Vital Signs Date Time Temp Pulse Resp B/P B/P Pulse O2 O2 Flow FiO2 Mean Ox Delivery Rate 03/13 1050 78 138/68 03/13 1050 78 138/68 / 0843 Nasal 2.0L Cannula 03/13 0644 92 Nasal 3.0L Cannula 03/13 0637 97.5 78 22 138/68 92 Nasal 3.0L Cannula 03/13 0545 97.1 75 20 125/63 94 Nasal 4.0L Cannula / 0340 72 16 110/62 96 Nasal 2.0L Cannula / 0236 97.6 83 28 117/65 97 Nasal 3.0L Cannula Intake & Output 03/13 1600 03/13 0400 03/12 1600 03/12 0400 03/11 0400 Intake Total Output Total Balance Patient 215 lb 223 lb Weight Weight Chair scale Measurement Method Physical Exam: NAD. VS as above. Eyes: anicteric, YOAN Neck: no mas or thryomegaly Nodes: negative cervical/inguinal Skin: no rash or induration Lungs: clear P&A CV: no rub or murmur Abd: nontender, no organomegaly, BS positive Exts: 2+ edema , good bruit over KAREY AVF but poor proxiimal vein development Neuro: A&O, CN intact. No asterixis. Results Pertinent Lab Results: Laboratory Tests 03/13 03/13 03/13 0850 0524 0300 Chemistry Sodium (137 - 145 mmol/L) 137 Potassium (3.5 - 5.1 mmol/L) 3.8 Chloride (98 - 107 mmol/L) 98 Carbon Dioxide (22 - 30 mmol/L) 22 Anion Gap (5 - 16) 17 H BUN (9 - 20 mg/dL) 86 H Creatinine (0.7 - 1.2 mg/dL) 6.1 *H Estimated GFR (>60 ml/min) 9 L BUN/Creatinine Ratio (7 - 25 %) 14.1 Lactic Acid (0.7 - 2.1 mmol/L) Cancelled 0.9 Troponin I (<0.11 ng/ml) 0.46 *H 03/13 0300 Chemistry Sodium (137 - 145 mmol/L) 135 L Potassium (3.5 - 5.1 mmol/L) 3.9 Chloride (98 - 107 mmol/L) 95 L Carbon Dioxide (22 - 30 mmol/L) 22 Anion Gap (5 - 16) 17 H BUN (9 - 20 mg/dL) 88 H Creatinine (0.7 - 1.2 mg/dL) 6.5 *H Estimated GFR (>60 ml/min) 9 L BUN/Creatinine Ratio (7 - 25 %) 13.5 Glucose (65 - 99 mg/dL) 127 H Calcium (8.4 - 10.2 mg/dL) 6.4 L Total Bilirubin (0.2 - 1.3 mg/dL) 0.9 AST (17 - 59 U/L) 19 ALT (21 - 72 U/L) 27 Alkaline Phosphatase (< 127 U/L) 82 Troponin I (<0.11 ng/ml) 0.52 *H Xir-[id number]-Nnuqtpneabq Pept (<125 pg/mL) 03114 H Total Protein (6.3 - 8.2 g/dL) 6.8 Albumin (3.5 - 5.0 g/dL) 4.1 Globulin (1.9 - 4.2 gm/dL) 2.7 Albumin/Globulin Ratio (1.1 - 2.2 %) 1.5 Coagulation PT (9.4 - 12.5 SEC) 11.8 INR (0.90 - 1.17) 1.13 APTT (25 - 37 SEC) 29 Hematology CBC w Diff NO MAN DIFF REQ WBC (4.8 - 10.8 /CUMM) 6.3 RBC (4.70 - 6.10 /CUMM) 3.49 L Hgb (14.0 - 18.0 G/DL) 9.2 L Hct (42 - 52 %) 27.2 L MCV (80.0 - 94.0 FL) 77.9 L MCH (27.0 - 31.0 PG) 26.4 L RDW (11.5 - 14.5 %) 13.8 Plt Count (130 - 400 /CUMM) 369 MPV (7.4 - 10.4 FL) 7.4 Gran % (42.2 - 75.2 %) 64.9 Lymphocytes % (20.5 - 51.1 %) 21.5 Monocytes % (1.7 - 9.3 %) 10.7 H Eosinophils % (0 - 5 %) 2.3 Basophils % (0.0 - 2.0 %) 0.6 Absolute Granulocytes (1.4 - 6.5 /CUMM) 4.1 Absolute Lymphocytes (1.2 - 3.4 /CUMM) 1.3 Absolute Monocytes (0.10 - 0.60 /CUMM) 0.7 H Absolute Eosinophils (0.0 - 0.7 /CUMM) 0.1 Absolute Basophils (0.0 - 0.2 /CUMM) 0 PUBS MCHC (33.0 - 37.0 G/DL) 33.8 Assessment/Plan Assessment/Recommendations Assessment: CKD, advanced, now presents with some volume overload and chest pain. Has O2 at home but was sob despite using. Volume overloaded. Creatinine higher but no absolute reason to start dialysis, AVF may not be ready, patient doese not want dialsyis catheter. Iron studies last time were borderline low. Recommendations: Would continue patient on IV Lasix. May need Epo but would need to be managed by [facility] who are is nephrologists. While in the hospital would give him Venofrer 200 mg IV daily x [address] Rodriguez for possible augmentation angioplasty of AVF. He should get daily labs and if fails to repond to diuresis or if chemistries worsen he migh need to start dialsyis through [facility].
[2017-03-13 15:30] VITALS: BP 116/64
--- NOTE | 2017-03-13 17:01 | NUR ---
THIS RN WAS PASSING PATIENT HIS MEDS @ 1050 WHEN HE STARTED TO C/O C/P 5-[address] ONEIL (AGING ROOM OPERATOR) ENTERED ROOM AT THIS TIME TO ASSESS PATIENT. REPORTED SYMPTOMS TO DR. TRACI REYES, COVERING DRIER AND PULVERIZER TENDER. TROPONINS TRENDING DOWN, NEXT TROPONIN TO BE DRAWN AT 1400.
--- NOTE | 2017-03-13 17:21 | Cons- Vascular Surgery ---
General Information and HPI Consulting Request Date of Consult: 03/13/17 Requested By: BENIGNO ELDRIDGE,JOSE LUIS Reason for Consult: Evaluation of AV fistula Source of Information: patient, old records Exam Limitations: no limitations History of Present Illness: 67-year-old male with extensive medical history including chronic kidney disease and recent placement of AV fistula pending dialysis treatment was admitted overnight for chest pain, mildly elevated troponin and CHF. He has a past medical history significant for coronary artery disease with stents, COPD type 2 diabetes and sleep apnea, chronic hypoxic respiratory failure chronic kidney disease stage V, placement of a brachiocephalic AV fistula of the left upper extremity on 01/17/[address] Rodriguez. Vascular surgery was asked to comment on the status of the AV fistula as dialysis may be required due to patient's fluid overload status. Patient has no complaints of pain in the left upper extremity and has had no problems since the fistula was placed. Allergies/Medications Allergies: Coded Allergies: morphine (Mild, LOOPY 01/18/17) hydromorphone (DEPRESSED RESPIRATIONS 01/18/17) Uncoded Allergies: CONTRAST DYE (CONTRAINDICATED 01/11/17) Home Med List: Albuterol Sulfate (Proair Hfa) 90 MCG HFA.AER.AD 2 PUF INH Q4-6 PRN PRN SHORTNESS OF BREATH Alprazolam (Xanax) 0.5 MG TABLET 1 TAB PO BID PRN ANXIETY Amlodipine Besylate (Norvasc) 10 MG TABLET 1 TAB PO DAILY HTN (Reported) Aspirin (Ecotrin*) 81 MG TABLET.DR 1 TAB PO DAILY CAD (Reported) Atorvastatin Calcium (Lipitor) 80 MG TABLET 1 TAB PO DAILY CHOLESTEROL ( Reported) Budesonide/Formoterol Fumarate (Symbicort 160-4.5 Mcg Inhaler) 160 MCG-4.5 MCG/ ACTUATION HFA.AER.AD 2 PUF INH BID COPD Rinse your mouth after using inhaler. Clonidine HCl 0.1 MG TABLET 1 TAB PO BID BP (Reported) Folic Acid 1 MG TABLET 1 TAB PO DAILY SUPPLEMENT (Reported) Furosemide (Lasix) 40 MG TABLET 80 MG PO DAILY diuresis Insulin Glargine,Hum.rec.anlog (Lantus Solostar) 100 UNIT/ML (3 ML) INSULN.PEN 15 UNITS SQ BID DIABETES Isosorbide Mononitrate (Isosorbide Mononitrate ER) 60 MG TAB.ER.24H 1 TAB PO DAILY CAD Levothyroxine Sodium (Synthroid) 200 MCG TABLET 0.2 MG PO DAILY AC THYROID Levothyroxine Sodium (Synthroid) 25 MCG TABLET 0.025 MG PO DAILY AC THYROID Liraglutide (Victoza 3-Zeus) 0.6 MG/0.1 ML PEN.INJCTR 1.8 MG PO DAILY DIABETES (Reported) Metoprolol Tartrate 100 MG TABLET 1 TAB PO DAILY HEART (Reported) Ramelteon (Rozerem) 8 MG TABLET 1 TAB PO AT BEDTIME SLEEP HELP Sertraline HCl (Zoloft) 100 MG TABLET 1 TAB PO DAILY ANXIETY (Reported) Sertraline HCl (Zoloft) 50 MG TABLET 1 TAB PO DAILY ANXIETY Take 1/2 tab tomorrow (02/02), followed by 1 tab daily (02/03-) Sevelamer Carbonate (Renvela) 800 MG TABLET 2 TAB PO TID ESRD (Reported) Tamsulosin HCl 0.4 MG CAP.ER.24H 1 CAP PO DAILY PROSTATE (Reported) Ticagrelor (Brilinta) 90 MG TABLET 1 TAB PO BID CAD (Reported) Trazodone HCl 150 MG TABLET 1 TAB PO QPM SLEEP (Reported) Past History Medical History Blood Transfusion Hx: No Neurological: NONE EENT: NONE Cardiovascular: CAD, hypertension, hyperlipidemia, 6 CARDIAC STENTS Respiratory: COPD Gastrointestinal: constipation Hepatic: NONE Renal: chronic kidney disease, L ARM AVF PLACED 01/17/17 Musculoskeletal: chronic back pain, ?BACK PROBLEM REQUIRE SX Psychiatric: NONE Endocrine: diabetes Blood Disorders: NONE 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 Ambulation: cane IADLs Independent: shopping, housework, finances, food prep, telephone, transportation , medication admin. Review of Systems Review of Systems: Review of systems: See HPI, all other systems negative. Constitutional: No chills fever or weight loss HEENT: No visual changes no sore throat no congestion Cardiovascular: Chest pain and shortness of breath, positive lower extremity edema that has been increasing over the last few days. Respiratory: Positive shortness of breath dyspnea on exertion, GI: No nausea no vomiting : No dysuria no hematuria Skin: No rashes Musclulo skeletal: No back pain no neck pain, Neurologic: No numbness no confusion Psych: No stress anxiety or depression,. Heme/endocrine: No bruising no bleeding no polyuria or polydipsia Immunology: No splenectomy or history of AIDS Exam & Diagnostic Data Vital Signs and I&O Vital Signs Date Time Temp Pulse Resp B/P B/P Pulse O2 O2 Flow FiO2 Mean Ox Delivery Rate 03/13 1530 97.5 74 16 116/64 92 Nasal 3.0L Cannula 03/13 1050 78 138/68 03/13 1050 78 138/68 03/13 0843 Nasal 2.0L Cannula 03/13 0800 92 Nasal 2.0L Cannula 03/13 0644 92 Nasal 3.0L Cannula 03/13 0637 97.5 78 22 138/68 92 Nasal 3.0L Cannula 03/13 0545 97.1 75 20 125/63 94 Nasal 4.0L Cannula 03/13 0340 72 16 110/62 96 Nasal 2.0L Cannula 03/13 0236 97.6 83 28 117/65 97 Nasal 3.0L Cannula Intake & Output 03/13 1600 03/13 0800 /04 0000 06/03 1600 03 0800 03/12 0000 Intake Total 600 Output Total 850 Balance -250 Intake, Oral 600 Number 0 Bowel Movements Output, Urine 850 Patient 215 lb Weight Weight Chair scale Measurement Method Physical Exam: Well-developed well-nourished no apparent distress. Sitting in a chair, on nasal cannula HEENT: Atraumatic, extraocular motion intact Neck: Supple, no lymphadenopathy Respiratory: No respiratory distress Extremities: +2 pitting bilateral lower extremity edema, no calf pain Neuro: Alert and oriented x3 Psych: Mood affect normal, normal memory normal judgment. Skin: Warm and dry, no rash on exposed skin Left upper extremity AV fistula: Positive thrill, positive radial pulse 1+. Minimal swelling around the fistula site, incision is well-healed, clean dry and intact, no erythema. The arm is neurovascularly intact. Last 24 Hours of Labs: Laboratory Tests 03/13 03/13 03/13 03/13 1430 0850 0524 0300 Chemistry Sodium (137 - 145 mmol/L) 137 Potassium (3.5 - 5.1 mmol/L) 3.8 Chloride (98 - 107 mmol/L) 98 Carbon Dioxide (22 - 30 mmol/L) 22 Anion Gap (5 - 16) 17 H BUN (9 - 20 mg/dL) 86 H Creatinine (0.7 - 1.2 mg/dL) 6.1 *H Estimated GFR (>60 ml/min) 9 L BUN/Creatinine Ratio (7 - 25 %) 14.1 Lactic Acid (0.7 - 2.1 mmol/L) Cancelled 0.9 Troponin I (<0.11 ng/ml) 0.42 *H 0.46 *H 03/13 0300 Chemistry Sodium (137 - 145 mmol/L) 135 L Potassium (3.5 - 5.1 mmol/L) 3.9 Chloride (98 - 107 mmol/L) 95 L Carbon Dioxide (22 - 30 mmol/L) 22 Anion Gap (5 - 16) 17 H BUN (9 - 20 mg/dL) 88 H Creatinine (0.7 - 1.2 mg/dL) 6.5 *H Estimated GFR (>60 ml/min) 9 L BUN/Creatinine Ratio (7 - 25 %) 13.5 Glucose (65 - 99 mg/dL) 127 H Calcium (8.4 - 10.2 mg/dL) 6.4 L Total Bilirubin (0.2 - 1.3 mg/dL) 0.9 AST (17 - 59 U/L) 19 ALT (21 - 72 U/L) 27 Alkaline Phosphatase (< 127 U/L) 82 Troponin I (<0.11 ng/ml) 0.52 *H [id number] Pept (<125 pg/mL) 10379 H Total Protein (6.3 - 8.2 g/dL) 6.8 Albumin (3.5 - 5.0 g/dL) 4.1 Globulin (1.9 - 4.2 gm/dL) 2.7 Albumin/Globulin Ratio (1.1 - 2.2 %) 1.5 Coagulation PT (9.4 - 12.5 SEC) 11.8 INR (0.90 - 1.17) 1.13 APTT (25 - 37 SEC) 29 Hematology CBC w Diff NO MAN DIFF REQ WBC (4.8 - 10.8 /CUMM) 6.3 RBC (4.70 - 6.10 /CUMM) 3.49 L Hgb (14.0 - 18.0 G/DL) 9.2 L Hct (42 - 52 %) 27.2 L MCV (80.0 - 94.0 FL) 77.9 L MCH (27.0 - 31.0 PG) 26.4 L RDW (11.5 - 14.5 %) 13.8 Plt Count (130 - 400 /CUMM) 369 MPV (7.4 - 10.4 FL) 7.4 Gran % (42.2 - 75.2 %) 64.9 Lymphocytes % (20.5 - 51.1 %) 21.5 Monocytes % (1.7 - 9.3 %) 10.7 H Eosinophils % (0 - 5 %) 2.3 Basophils % (0.0 - 2.0 %) 0.6 Absolute Granulocytes (1.4 - 6.5 /CUMM) 4.1 Absolute Lymphocytes (1.2 - 3.4 /CUMM) 1.3 Absolute Monocytes (0.10 - 0.60 /CUMM) 0.7 H Absolute Eosinophils (0.0 - 0.7 /CUMM) 0.1 Absolute Basophils (0.0 - 0.2 /CUMM) 0 PUBS MCHC (33.0 - 37.0 G/DL) 33.8 Imaging Results: Ultrasound of the left upper extremity to evaluate the shunt was performed today , results are pending Assessment/Plan Assessment/Plan 67-year-old male with multiple comorbidities including diabetes coronary disease chronic kidney disease stage V who previously had an AV fistula place on January 17, approximately 7 weeks ago, presents now with fluid overload status and renal insufficiency with chest pain and shortness ob breath and possible need for dialysis. DW Dr Brito. Await results of ultrasound. Would hold off on use of fistula at this time, this could take a few more weeks to mature. If urgent dialysis is needed, recommend placement of a Srinath catheter. Vascular surgeon to evaluate in the next 1-2 days. Problem List: 1. Acute on chronic renal failure 2. CHF (congestive heart failure) Consult Acknowledgment - Thank you for your consult request.
[2017-03-13 22:02] VITALS: BP 120/60
--- NOTE | 2017-03-13 23:02 | NUR ---
2129 PATIENT C/O EPISTAXIS TO LEFT NARIS. GAUZE PACKED AND PRESSURE APPLIED. MD HOWARD NOTIFIED AND IN TO ASSESS. PACKING WET AND REAPPLIED, PRESSURE APPLIED. SC HEPARIN HELD PER MD HOWARD ORDER. MD HOWARD AND MD ÁLVAREZ CAROLINA IN ROOM TO REASSESS, WCTM.
--- NOTE | 2017-03-14 06:23 | Event Note ---
Event Note Event Note: Pt had epistaxis overnight. On anticoagulants, ASA and on NC O2. Attempted to pack and hold pressure; pt con't bleed. Changed NC to face mask and applied intranasal Oxymetazoline. Bleeding stopped.
[2017-03-14 08:00] VITALS: BP 120/70
--- NOTE | 2017-03-14 08:11 | PN- Housestaff ---
AMY ELDRIDGE,TRACI 03/14/17 0810: Subjective Follow-up For: CHEST PAIN Subjective: Seen and examined at bedside. Overnight event of transient episode of epistaxis requiring oxymetazoline spray is noted. Currently does not endorse any chest pain or palpitation. No acute overnight telemetry event noted. Review of Systems Constitutional: Reports: see HPI. Objective Last 24 Hrs of Vital Signs/I&O Vital Signs Date Time Temp Pulse Resp B/P B/P Pulse O2 O2 Flow FiO2 Mean Ox Delivery Rate 03/14 1045 92 Nasal 4.0L Cannula 03/14 0957 97.8 78 20 120/70 / 0957 97.8 78 20 120/70 / 0800 94 Nasal 3.0L Cannula / 0800 97.8 78 20 120/70 94 Nasal 3.0L Cannula 03/14 0643 94 Nasal 4.0L Cannula 03/14 0000 Nasal 3.5L Cannula 03/13 2202 97.3 81 22 120/60 93 Nasal 3.0L Cannula 03/13 1855 92 Nasal 2.0L Cannula 03/13 1600 93 Nasal 2.0L Cannula 03/13 1530 97.5 74 16 116/64 92 Nasal 3.0L Cannula Intake & Output 03/14 1600 06/05 0800 06/05 0000 Intake Total 980 770 Output Total 800 200 Balance 180 570 Intake, IV 10 120 Intake, Oral 970 650 Number 0 Bowel Movements Output, Urine 800 200 Patient 98.43 kg Weight Weight Standing Scale Measurement Method Physical Exam General Appearance: Alert, Oriented X3, Cooperative Neck: Supple, No JVD, No thryomegaly Lymphatic: Cervical nl Cardiovascular: Regular Rate, Normal S1, Normal S2 Lungs: Left basilar crackles. Neurological: Normal Speech, Sensation Intact Extremities: No Clubbing, No Cyanosis, bilateral lower extremity edema +2 Assessment/Plan Assessment: This is a 67-year-old male with past medical history significant for coronary artery disease status post stent placement, diabetes type 2 on insulin dependence, peripheral neuropathy, hyperlipidemia, COPD, chronic kidney disease stage V, left-sided fistula placed by nephrology (2months), came to emergency department with chief complaint of inability to sleep because of chest pressure on lying down and shortness of breath. Serial troponins and EKG was trend and ACS was ruled out. Pt labs were remarkable for acute worsening of BUN and creatinine. Impression and plan #Volume overload. Acute worsening CKD super imposed by acute CHF Decompensation. Patient clinically has lower extremity edema and shortness of breath with BP remarkable for increasing creatinine and BUN. Eventual plan was for patient to start dialysis as the left arm fistula was placed 2 months ago but currently patent but not ready for use. She was started on Lasix IV 40 mg yesterday however did not diurese adequately. Was seen by nephrology today who recommended increasing Lasix to 80 twice a day with a diuresis goal of 2 L per day. #Hx of CAD ACS r/out. Continue ASA, statin. #Hx of Hypothyroidism Continue Levothyroxine #Hx of Diabetes Novolog ssc Accu cheks tid/hs Problem List: 1. Acute on chronic renal failure Pain Ratin Pain Location: NONE Pain Goal: Remain pain free Pain Plan: PER PATHWAY Tomorrow's Labs & Rationales: ANNIE SMITH MD,DAVE 03/14/17 1457: Attending MD Review Statement Attending Statement Attending MD Statement: examined this patient, discuss w/resident/PA/POEM WRITER, agreed w/resident/PA/POEM WRITER, reviewed EMR data (avail), discussed with nursing, discussed with case mgmt, amended to note Attending Assessment/Plan: Patient seen and examined. Resting comfortably not in acute distress. Reports feeling better. Denies any symptoms at rest. Patient however continues to show evidence of volume overload. He continues to require oxygen supplementation currently requiring 4 L as opposed to his 2 L at home. On examination breath sounds are markedly diminished in the bases. He continues to have 1+ pedal edema bilateral lower extremities. He in and out shows a positive fluid balance yesterday and so far today. Patient is now agreeable to undergoing hemodialysis via an Bao catheter is a need requires. Nephrology and cardiology follow-up appreciated. Recommendations: -Increase Lasix dose as recommended by nephrology service with close monitoring. -Vascular surgery consultation to expedite maturation of his dialysis access. -Taper down oxygen supplementation as tolerated.
--- NOTE | 2017-03-14 08:59 | ULTRASOUND REPORT ---
EXAMINATION: US HEMODIALYSIS ACCESS SHUNT CLINICAL INFORMATION: Difficulty accessing hemodialysis fistula. COMPARISON: None TECHNIQUE: Bedside portable ultrasound of the left upper extremity hemodialysis access was performed using grayscale, color Doppler, and spectral Doppler technique.. FINDINGS: Limited bedside portable exam. The proximal brachial artery is patent with a low resistance waveform. The cephalic vein fistula is patent with a low resistance waveform. There is mild aneurysmal change just distal to the arterial anastomosis. There is no mural thrombus. No fluid collection. IMPRESSION: Limited bedside portable exam shows that the left upper extremity brachiocephalic hemodialysis fistula is patent.
--- NOTE | 2017-03-14 10:23 | PN- Cardiology ---
Subjective Subjective: Shortness of breath is somewhat better today, however he remains significantly short of breath. No chest pain. No palpitations. No diaphoresis. No nausea or vomiting Objective Vital Signs and I&Os Vital Signs Date Time Temp Pulse Resp B/P B/P Pulse O2 O2 Flow FiO2 Mean Ox Delivery Rate 03/14 0957 97.8 78 20 120/70 03/14 0957 97.8 78 20 120/70 / 0800 97.8 78 20 120/70 94 Nasal 3.0L Cannula 03/14 0643 94 Nasal 4.0L Cannula 03/14 0000 Nasal 3.5L Cannula 03/13 2202 97.3 81 22 120/60 93 Nasal 3.0L Cannula 03/13 1855 92 Nasal 2.0L Cannula 03/13 1600 93 Nasal 2.0L Cannula 03/13 1530 97.5 74 16 116/64 92 Nasal 3.0L Cannula 03/13 1050 78 138/68 03/13 1050 78 138/68 Intake & Output 03/14 1600 03/14 0800 03/14 0000 03/13 1600 03/13 0800 03/13 0000 Intake Total 980 770 600 Output Total 800 200 850 Balance 180 570 -250 Intake, IV 10 120 Intake, Oral 970 650 600 Number 0 0 Bowel Movements Output, Urine 800 200 850 Patient 217 lb 215 lb Weight Weight Standing Scale Chair scale Measurement Method Physical Exam: Gen: NAD HEENT: normal Lungs: Scattered rales bilaterally, normal resp. effort Heart: RRR, S1, S2, no murmurs Abdomen: Soft, nontender, no masses Extremities: 2+ edema Neuro: Alert and oriented x 3, cranial nerves intact Current Medications: Current Medications Sig/Julissa Start time Last Medication Dose Route Stop Time Status Admin Acetaminophen 650 MG Q6P PRN 03/13 0700 AC PO Albuterol Sulfate 3 ML BID 03/13 1000 AC 03/14 INH 0642 Albuterol Sulfate 2 PUF Q4-6 PRN PRN 03/13 0600 AC 03/13 INH 1702 Alprazolam 0.5 MG BID 03/13 1000 AC 03/14 PO 03/20 0959 0957 Aspirin Buffered 81 MG DAILY 03/13 1000 AC 03/14 PO 0957 Atorvastatin Calcium 80 MG 1700 03/13 1700 AC 03/13 PO 1703 Budesonide/ 2 PUF BID 03/13 1000 AC 03/14 Formoterol Fumarate INH 0956 Folic Acid 1 MG DAILY 03/13 1000 AC 03/14 PO 0957 Furosemide 40 MG DAILY 03/13 1325 AC 03/14 IV 0958 Heparin Sodium 5,000 UNIT Q8 03/13 0658 AC 03/14 (Porcine) SC 0605 Insulin Aspart 0 TIDAC 03/13 0800 AC 03/13 SC 1704 Insulin Detemir 15 UNITS BID 03/13 1000 AC 03/14 SC 0958 Iron Sucrose 200 MG DAILY@1500 03/13 1500 AC 03/13 Sodium Chloride 100 ML IV 03/17 1514 1704 Isosorbide 60 MG DAILY 03/13 1000 AC 03/14 Mononitrate PO 0957 Levothyroxine Sodium 0.2 MG DAILY AC 03/13 0700 AC 03/14 PO 0601 Metoprolol Tartrate 100 MG DAILY 03/13 1000 AC 03/14 PO 0957 Non-Formulary 0 SEE ADMIN CRITERIA 03/13 1345 CAN Medication ANY Oxymetazoline HCl 2 SPRAY BID 03/13 2200 AC 03/14 DALIA 1006 Phenylephrine HCl 2 SPRAY Q6P PRN 03/13 2200 DC DALIA Ramelteon 8 MG AT BEDTIME 03/13 2200 AC 03/13 PO 2059 Sertraline HCl 100 MG DAILY 03/13 1000 AC 03/14 PO 0957 Sodium Chloride 2 SPRAY Q4P PRN 03/13 2130 AC DALIA Ticagrelor 90 MG BID 03/13 1000 AC 03/14 PO 0959 Trazodone HCl 150 MG AT BEDTIME 03/13 2200 AC 03/13 PO 205 Results Last 48 Hrs of Labs/Mics: Laboratory Tests 03/14/17 0557: Anion Gap 18 H, Estimated GFR 8 L, BUN/Creatinine Ratio 13.7 03/13/17 1430: Troponin I 0.42 *H 03/13/17 0850: Anion Gap 17 H, Estimated GFR 9 L, BUN/Creatinine Ratio 14.1, Troponin I 0.46 *H 03/13/17 0524: Lactic Acid Cancelled 03/13/17 0300: Lactic Acid 0.9 03/13/17 0300: Anion Gap 17 H, Estimated GFR 9 L, BUN/Creatinine Ratio 13.5, Glucose 127 H, Calcium 6.4 L, Total Bilirubin 0.9, AST 19, ALT 27, Alkaline Phosphatase 82, Troponin I 0.52 *H, [id number] Pept 44660 H, Total Protein 6.8, Albumin 4.1, Globulin 2.7, Albumin/Globulin Ratio 1.5, PT 11.8, INR 1.13, APTT 29, CBC w Diff NO MAN DIFF REQ, RBC 3.49 L, MCV 77.9 L, MCH 26.4 L, RDW 13.8, MPV 7.4, Gran % 64.9, Lymphocytes % 21.5, Monocytes % 10.7 H, Eosinophils % 2.3, Basophils % 0.6, Absolute Granulocytes 4.1, Absolute Lymphocytes 1.3, Absolute Monocytes 0.7 H, Absolute Eosinophils 0.1, Absolute Basophils 0, PUBS MCHC 33.8 Recent Imaging Studies: Chest x-ray 03/13/17: Small bilateral pleural effusions with associated airspace opacity. This is increased from prior. Central vascular prominence without overt edema. Echocardiogram: 1. This was a technically difficult examination. 2. Aortic sclerosis is present with no valvular stenosis or insufficiency. 3. Mitral leaflet thickening is present with annular calcification and mild to moderate mitral insufficiency with moderate left atrial enlargement. 4. There is no significant pericardial fluid present. 5. The left ventricular chamber size is normal with hypokinesia of the distal septum and apex and an ejection fraction of approximately 50-55%. 6. Minimal to mild tricuspid aind pulmonic insufficiency are present. The RV systolic pressure was not accurately assessed. Assessment/Plan Assessment/Plan Assessment: 1. CAD 2. Diabetes mellitus 3. Chronic kidney disease, stage V 4. Acute HFpEF, somewhat better with diuresis, however creatinine is increased Plan: * Continue IV Lasix if okay with nephrology * Possible dialysis if indicated as per nephrology Continue telemetry? Yes
--- NOTE | 2017-03-14 13:28 | PN- Nephrology ---
Assessment/Plan Assessment: CKD V. CHF. Still volume overloaded. Rec: 1) Lasix 80 IV bid target U.O . > 2L day 2) Please check PT/INR/PTT, hepatitis B S Ag, Ab, hep C Ab (can do in AM) - he will need these if he starts dailysis (likely) 3) Daily labs 4) Please ask Dr. Rodriguez to f/u AVF.may need additonal maturation procedure. It looks good and is developing reasonably well It is too early to use, however. he will need an ROBINA if he starts HD. I spoke to Mr. Dodd at length today about his CKD and dialysis. We discussed where he would get dialysis (his [facility] is in [place]). He had already been thinking about this and wants to go to [place] if he needs dialysis. I did ask him to let Dr. Mclaughlin know this (I suspect he is already aware given pt's home). Serg Pradhan MD. Suggestion: . Subjective Subjective: PT still edematous. Coming to the conclusion he will need to start dialysis. Objective Vital Signs and I&Os Vital Signs 120/70 78 97.8 Wt 217 Lungs diminished bases Cor RRR Abd soft n/T Ext 2+edema Results Pertinent Lab Results: 138/ 96 / 92 / 3.7 / 24 / 6.7\
[2017-03-14 15:30] VITALS: BP 102/60
[2017-03-15 00:08] VITALS: BP 122/62
--- NOTE | 2017-03-15 06:36 | PN- Housestaff ---
JAIRO PEÑA MD 03/15/17 0636: Subjective Follow-up For: Acute on chronic CHF CKD Stage V Tele-Events Since Last Visit: NSR HR 76-83 Subjective: Patient seen and examined. He is seen sitting upright in his chair resting comfortably maintained on supplemental oxygen via nasal cannula. He appears to be in no acute distress. He reports sleeping "the best he has slept in five months". He admits to a persistent chest discomfort that is characterized as "someone sitting" on his chest. He otherwise feels fine and denies any new subjective complaints. Additionally he denies any headache, fever, chills, palpitations, worsening shortness of breath, nausea, vomiting, diarrhea. No overnight events reported. Review of Systems Constitutional: Reports: see HPI. Objective Last 24 Hrs of Vital Signs/I&O Vital Signs Date Time Temp Pulse Resp B/P B/P Pulse O2 O2 Flow FiO2 Mean Ox Delivery Rate 03/15 0008 98.0 81 22 122/62 91 Nasal 4.0L Cannula 03/15 0000 94 Nasal 3.0L Cannula 03/14 1835 92 Nasal 4.0L Cannula / 1600 94 Nasal 3.0L Cannula /05 1530 98.0 76 16 102/60 93 Nasal 4.0L Cannula /05 1045 92 Nasal 4.0L Cannula /05 0957 97.8 78 20 120/70 06/05 0957 97.8 78 20 120/70 06/05 0800 94 Nasal 3.0L Cannula /05 0800 97.8 78 20 120/70 94 Nasal 3.0L Cannula Intake & Output 03/15 0800 06/ 0000 03/14 1600 Intake Total 240 450 480 Output Total 700 500 Balance -460 -50 480 Intake, Oral 240 450 480 Number 1 Bowel Movements Output, Urine 700 500 Patient 98.146 kg Weight Weight Standing Scale Measurement Method Physical Exam General Appearance: Alert, Oriented X3, Cooperative, No Acute Distress Other Physical Findings: General- well developed, obese middle aged man in no acute distress HEENT- NCAT, PERRL, EOMI, anicteric sclera, moist mucous membranes, nasal cannula in place Neck- Supple, no JVD CVS- S1, S2 w/o m/g/r; RRR Resp- CTA bilaterally GI- Soft, obese, nontender, nondistended, bowel sounds intact Neuro- Awake and alert, CN II - XII grossly intact Ext- normal pulses, 2+ bilateral lower extremity edema, no cyanosis Current Medications: Current Medications Sig/Julissa Start time Last Medication Dose Route Stop Time Status Admin Acetaminophen 650 MG Q6P PRN 03/13 0700 AC PO Albuterol Sulfate 3 ML BID 03/13 1000 AC 03/14 INH 2200 Albuterol Sulfate 2 PUF Q4-6 PRN PRN 03/13 0600 AC 03/14 INH 2139 Alprazolam 0.5 MG BID 03/13 1000 AC / PO 03/20 0959 2142 Aspirin Buffered 81 MG DAILY / 1000 AC / PO 0957 Atorvastatin Calcium 80 MG 1700 / 1700 AC 03/14 PO 1637 Budesonide/ 2 PUF BID 03/13 1000 AC 03/14 Formoterol Fumarate INH 2135 Folic Acid 1 MG DAILY / 1000 AC 03/14 PO 0957 Furosemide 80 MG BID 03/14 2200 AC 03/14 IV 2031 Furosemide 40 MG ONCE ONE 03/14 1345 DC 06/ IV 03/14 1346 1637 Furosemide 40 MG DAILY 03/13 1325 DC 06/ IV 0958 Heparin Sodium 5,000 UNIT Q8 03/13 0658 AC 03/15 (Porcine) SC 0603 Insulin Aspart 0 TIDAC 03/13 0800 AC 03/14 SC 1227 Insulin Detemir 15 UNITS BID 03/13 1000 AC 03/14 SC 2142 Iron Sucrose 200 MG DAILY@1500 / 1500 AC 03/14 Sodium Chloride 100 ML IV 03/17 1514 1635 Isosorbide 60 MG DAILY 03/13 1000 AC 03/14 Mononitrate PO 0957 Levothyroxine Sodium 0.2 MG DAILY AC 03/13 0700 AC 03/15 PO 0604 Metoprolol Tartrate 100 MG DAILY 03/13 1000 AC / PO 0957 Oxymetazoline HCl 2 SPRAY BID 03/13 2200 AC 03/14 DALIA 2135 Patient Medication 1 ED .STK-MED ONE 03/14 1417 DC Teaching ED 03/14 1418 Potassium Chloride 40 MEQ ONCE ONE 03/14 1400 DC 06/05 PO 03/14 1401 1637 Ramelteon 8 MG AT BEDTIME 03/13 2200 AC 03/14 PO 2136 Senna 374 MG AT BEDTIME 03/140 AC 03/14 PO 2135 Sertraline HCl 100 MG DAILY 03/13 1000 AC 03/14 PO 0957 Sodium Chloride 2 SPRAY Q4P PRN 03/13 2130 AC DALIA Ticagrelor 90 MG BID 03/13 1000 AC 03/14 PO 2136 Trazodone HCl 150 MG AT BEDTIME 03/130 AC 03/14 PO 2135 Last 24 Hrs of Lab/Angus Results Last 24 Hrs of Labs/Mics: Laboratory Tests 03/15/17 0617: Sodium Pending, Potassium Pending, Chloride Pending, Carbon Dioxide Pending, Anion Gap Pending, BUN Pending, Creatinine Pending, BUN/Creatinine Ratio Pending , PT Pending, INR Pending, Hepatitis A IgM Ab Pending, Hep Bs Antigen Pending, Hep B Core IgM Ab Conf Pending, Hepatitis C Antibody Pending Assessment/Plan Assessment: Patient continues to require supplemental oxygen higher than his home dose. He otherwise feels well, but reports persistent chest discomfort and mildly worse lower extremity swelling. Patient denies any further episodes of epistaxis. Case was discussed with interventional radiologist and nephrology mobile sales consultant and it was determined that patient will likely require an dialysis catheter; however is currently on ticagrelor and should be held off this medication prior to the procedure. Ticagrelor will be held in anticipation for this procedure later this week. Acute Systolic Congestive Heart Failure / Atrial Flutter / CKD V / CAD / HLD Patient with extesive cardiac history seen for evaluation of chest pain and shortness of breath. Patient of origination specialist Dr. Lee. -Telemetry -Daily weights, strict ins & outs, goal 2.0L negative balance / day -Lasix 80mg IV BID -Aspirin 81mg PO Daily -Atorvastatin 80mg PO Daily -Metoprolol 100mg PO Daily -Ticagrelor ON HOLD -Imdur 60mg PO Daily -Venofer 200mg IV Daily, x5 doses -Cardiology consult, following -Nephrology consult, following -Vascular surgery consult, following Chronic Obstructive Pulmonary Disease Patient with history of -TRC with albuterol/ipratropoum PRN -Supplemental oxygen, taper as tolerated, 2.0L baseline -Symbicort Insulin-dependent Diabetes Mellitus -Accuchecks TIDAC/HS -Hold oral hypoglycemics -Novolog SSI -Levemir 15 Units SC BID Anxiety / Depression -Sertraline 100mg PO Daily -Alprazolam 0.5mg PO BID Hypothyroidism-Levothyroixine 200mcg PO Daily Pain Plan-Acetaminophen Bowel Regimen-Senna Insomnia-Ramelteon / Trazodone Diet- CHF Diet DVT PPx- Subcutaneous Heparin Code Status- FULL CODE Problem List: 1. CHF (congestive heart failure) 2. CKD (chronic kidney disease), stage V Pain Ratin Pain Location: Chest Pain Goal: Pain 4 or less Pain Plan: See assessment Tomorrow's Labs & Rationales: BEP - CKD DAVE SMITH MD 03/15/17 0942: Attending MD Review Statement Attending Statement Attending MD Statement: examined this patient, discuss w/resident/PA/PODIATRY ASSISTANT, agreed w/resident/PA/PODIATRY ASSISTANT, reviewed EMR data (avail), discussed with nursing, discussed with case mgmt, amended to note Attending Assessment/Plan: Patient seen and examined. Resting comfortably and not in any acute distress. No issues overnight. However continues to complain of shortness of breath with exertion. Continues complain of chest pain on and off. He continues to be on an increased oxygen supplementation compared to baseline. Breath sounds remain diminished in the bases and peripheral edema is persistent. Had a positive fluid balance over 24 hours yesterday. So far today he appears to be maintaining a negative fluid balance. The vascular surgery service has been contacted and they're currently deferring any procedure to augment maturation of his fistula. Recommendations: -Scheduled kev catheter placement by the interventional radiology service today. -Continue Lasix 80 mg IV twice daily pending initiation of hemodialysis. -Following initiation of hemodialysis recommend follow-up with the cardiology service regarding any need for further ischemic workup in the future given his complaints of chest pain on and off, hypokinesis on echocardiogram and positive troponins, although his elevated troponins may be attributable to his renal disease. disease.
[2017-03-15 08:00] VITALS: BP 100/64
[2017-03-15 08:18] LABS: PT 12.7 SEC (9.4-12.5)
--- NOTE | 2017-03-15 09:38 | PN- Cardiology ---
Subjective Subjective: Shortness of breath is slightly better. He notes occasional mild tightness in the chest. No palpitations. No shortness of breath. No diaphoresis. No nausea or vomiting. Objective Vital Signs and I&Os Vital Signs Date Time Temp Pulse Resp B/P B/P Pulse O2 O2 Flow FiO2 Mean Ox Delivery Rate 03/15 0816 94 Nasal 4.0L Cannula 03/15 0800 94 Nasal 3.0L Cannula 03/15 08 98.2 83 24 100/64 94 Nasal 4.0L Cannula 03/15 0008 98.0 81 22 122/62 91 Nasal 4.0L Cannula 03/15 0000 94 Nasal 3.0L Cannula 03/14 1835 92 Nasal 4.0L Cannula 03/14 1600 94 Nasal 3.0L Cannula 03/14 1530 98.0 76 16 102/60 93 Nasal 4.0L Cannula 03/14 1045 92 Nasal 4.0L Cannula 03/14 0957 97.8 78 20 120/70 03/14 0957 97.8 78 20 120/70 Intake & Output 03/15 1600 03/15 0800 03/15 0000 03/14 1600 03/14 0800 03/14 0000 Intake Total 240 450 480 980 770 Output Total 700 500 800 200 Balance -460 -50 480 180 570 Intake, IV 10 120 Intake, Oral 240 450 480 970 650 Number 1 0 Bowel Movements Output, Urine 700 500 800 200 Patient 216 lb 217 lb Weight Weight Standing Scale Standing Scale Measurement Method Physical Exam: Gen: NAD HEENT: normal Lungs: Scattered rales bilaterally, normal resp. effort Heart: RRR, S1, S2, no murmurs Abdomen: Soft, nontender, no masses Extremities: 2+ edema Neuro: Alert and oriented x 3, cranial nerves intact Results Last 48 Hrs of Labs/Mics: Laboratory Tests 03/15/17 0617: Anion Gap 18 H, Estimated GFR 9 L, BUN/Creatinine Ratio 14.5, PT 12.7 H, INR 1.21 H, Hepatitis A IgM Ab Pending, Hep Bs Antigen Pending, Hep B Core IgM Ab Conf Pending, Hepatitis C Antibody Pending 03/14/17 0557: Anion Gap 18 H, Estimated GFR 8 L, BUN/Creatinine Ratio 13.7 03/13/17 1430: Troponin I 0.42 *H Assessment/Plan Assessment/Plan Assessment: 1. CAD 2. Diabetes mellitus 3. Chronic kidney disease, stage V 4. Acute HFpEF, somewhat better with diuresis Plan: * Continue 80 mg IV every 12 hours if okay with nephrology * Possible dialysis if indicated as per nephrology * Follow input and output * Check basic metabolic profile daily Continue telemetry? Yes
--- NOTE | 2017-03-15 14:57 | PN- Nephrology ---
Assessment/Plan Assessment: CKD V. CHF. Good diuresis to lasix. Poor po intake (no appetite). IR would like Brillinta (anti platelet agent off for a while prior to ROBINA placement). Mr Dodd is agreeable in starting dialysis. There is no role for a temporary catheter as it gives him two procedures (he would need an ROBINA) and its concomittent risk including higher infection risk of non-tunnelled catheter. I would avoid unnecessary procedures (a temporary catheter would be an unnecessary procedure) Stop Brillinta as you have done. Continue IV lasix bid as you are doing (he is having an excellent diuresis). If appetite does not improve would arrange for ROBINA catheter later this week. Please ask PT to see and assess/ ambulate. Discussed with medical team. Serg Pradhan MD. Suggestion: . Subjective Subjective: PT still weak. SOB a bit better, no appetite energy. Objective Vital Signs and I&Os Vital Signs M Weak BP 110/60 P 88 T 98.2 Lungs diminished bases Cor RRR Abd soft Ext 2+edema Results Pertinent Lab Results: Laboratory Tests 03/15 03/14 03/13 03/13 0617 0557 1430 0850 Chemistry Sodium (137 - 145 mmol/L) 137 138 137 Potassium (3.5 - 5.1 mmol/L) 4.2 3.7 3.8 Chloride (98 - 107 mmol/L) 97 L 96 L 98 Carbon Dioxide (22 - 30 mmol/L) 22 24 22 Anion Gap (5 - 16) 18 H 18 H 17 H BUN (9 - 20 mg/dL) 93 H 92 H 86 H Creatinine (0.7 - 1.2 mg/dL) 6.4 *H 6.7 *H 6.1 *H Estimated GFR (>60 ml/min) 9 L 8 L 9 L BUN/Creatinine Ratio (7 - 25 %) 14.5 13.7 14.1 Troponin I (<0.11 ng/ml) 0.42 *H 0.46 *H Coagulation PT (9.4 - 12.5 SEC) 12.7 H INR (0.90 - 1.17) 1.21 H Serology Hepatitis A IgM Ab (NONREACTIVE) NONREACTIVE Hep Bs Antigen (NONREACTIVE) NONREACTIVE Hep B Core IgM Ab Conf (NONREACTIVE) NONREACTIVE Hepatitis C Antibody (NONREACTIVE) NONREACTIVE 03/13 03/13 03/13 0524 0300 0300 Chemistry Sodium (137 - 145 mmol/L) 135 L Potassium (3.5 - 5.1 mmol/L) 3.9 Chloride (98 - 107 mmol/L) 95 L Carbon Dioxide (22 - 30 mmol/L) 22 Anion Gap (5 - 16) 17 H BUN (9 - 20 mg/dL) 88 H Creatinine (0.7 - 1.2 mg/dL) 6.5 *H Estimated GFR (>60 ml/min) 9 L BUN/Creatinine Ratio (7 - 25 %) 13.5 Glucose (65 - 99 mg/dL) 127 H Lactic Acid (0.7 - 2.1 mmol/L) Cancelled 0.9 Calcium (8.4 - 10.2 mg/dL) 6.4 L Total Bilirubin (0.2 - 1.3 mg/dL) 0.9 AST (17 - 59 U/L) 19 ALT (21 - 72 U/L) 27 Alkaline Phosphatase (< 127 U/L) 82 Troponin I (<0.11 ng/ml) 0.52 *H [id number] Pept (<125 pg/mL) 68463 H Total Protein (6.3 - 8.2 g/dL) 6.8 Albumin (3.5 - 5.0 g/dL) 4.1 Globulin (1.9 - 4.2 gm/dL) 2.7 Albumin/Globulin Ratio (1.1 - 2.2 %) 1.5 Coagulation PT (9.4 - 12.5 SEC) 11.8 INR (0.90 - 1.17) 1.13 APTT (25 - 37 SEC) 29 Hematology CBC w Diff NO MAN DIFF REQ WBC (4.8 - 10.8 /CUMM) 6.3 RBC (4.70 - 6.10 /CUMM) 3.49 L Hgb (14.0 - 18.0 G/DL) 9.2 L Hct (42 - 52 %) 27.2 L MCV (80.0 - 94.0 FL) 77.9 L MCH (27.0 - 31.0 PG) 26.4 L RDW (11.5 - 14.5 %) 13.8 Plt Count (130 - 400 /CUMM) 369 MPV (7.4 - 10.4 FL) 7.4 Gran % (42.2 - 75.2 %) 64.9 Lymphocytes % (20.5 - 51.1 %) 21.5 Monocytes % (1.7 - 9.3 %) 10.7 H Eosinophils % (0 - 5 %) 2.3 Basophils % (0.0 - 2.0 %) 0.6 Absolute Granulocytes (1.4 - 6.5 /CUMM) 4.1 Absolute Lymphocytes (1.2 - 3.4 /CUMM) 1.3 Absolute Monocytes (0.10 - 0.60 /CUMM) 0.7 H Absolute Eosinophils (0.0 - 0.7 /CUMM) 0.1 Absolute Basophils (0.0 - 0.2 /CUMM) 0 PUBS MCHC (33.0 - 37.0 G/DL) 33.8
[2017-03-15 15:30] VITALS: BP 108/78
[2017-03-15 19:54] VITALS: BP 124/70
[2017-03-16 01:00] VITALS: BP 122/70
--- NOTE | 2017-03-16 07:01 | PN- Housestaff ---
JAIRO PEÑA MD 03/16/17 0701: Subjective Follow-up For: Acute on chronic CHF CKD Stage V Subjective: Patient seen and examined. He is seen sitting upright in his chair at bedside maintained on supplemental oxygen via nasal cannula. He appears to be in no acute distress. He reports sleeping well last night and denies any new subjective complaints. He shortness of breath persists, but is no better or worse. He still has a nonproductive cough. His left lower extremity feels more swollen to him than yesterday. He denies any chest pain/discomfort. Additionally he denies any fever, chills, palpitations, nausea, vomiting, diarrhea. No overnight events reported. Review of Systems Constitutional: Reports: see HPI. Objective Last 24 Hrs of Vital Signs/I&O Vital Signs Date Time Temp Pulse Resp B/P B/P Pulse O2 O2 Flow FiO2 Mean Ox Delivery Rate 03/16 0100 97.8 91 18 122/70 92 Nasal 4.0L Cannula 03/16 0000 Nasal 4.0L Cannula 03/15 1954 82 124/70 03/15 1733 95 Nasal 4.0L Cannula 03/15 1600 Nasal 3.0L Cannula 03/15 1530 97.8 71 18 108/78 93 Nasal 4.0L Cannula 03/15 1047 88 110/60 03/15 1046 88 110/64 03/15 0936 Nasal 4.0L Cannula 03/15 0816 94 Nasal 4.0L Cannula 03/15 0800 94 Nasal 3.0L Cannula 03/15 0800 98.2 83 24 100/64 94 Nasal 4.0L Cannula Intake & Output 03/16 0800 06/ 0000 03/15 1600 Intake Total 240 440 440 Output Total 650 475 250 Balance -410 -35 190 Intake, Oral 240 440 440 Number 1 1 Bowel Movements Output, Urine 650 475 250 Patient 97.636 kg 97.976 kg Weight Weight Chair scale Chair scale Measurement Method Physical Exam General Appearance: Alert, Oriented X3, Cooperative, No Acute Distress Other Physical Findings: General- well developed, obese middle aged man in no acute distress HEENT- NCAT, PERRL, EOMI, anicteric sclera, moist mucous membranes, nasal cannula in place Neck- Supple, no JVD CVS- S1, S2 w/o m/g/r; RRR Resp- CTA bilaterally GI- Soft, obese, nontender, nondistended, bowel sounds intact Neuro- Awake and alert, CN II - XII grossly intact Ext- normal pulses, 2+ bilateral lower extremity edema, no cyanosis Current Medications: Current Medications Sig/Julissa Start time Last Medication Dose Route Stop Time Status Admin Acetaminophen 650 MG Q6P PRN 03/13 0700 AC PO Albuterol Sulfate 3 ML BID 03/13 1000 AC 03/15 INH 2150 Albuterol Sulfate 2 PUF Q4-6 PRN PRN 03/13 0600 AC 03/14 INH 2139 Alprazolam 0.5 MG BID 03/13 1000 AC 03/15 PO 03/20 0959 2139 Aspirin Buffered 81 MG DAILY 03/13 1000 AC 03/15 PO 1047 Atorvastatin Calcium 80 MG 1700 03/13 1700 AC 03/15 PO 1708 Budesonide/ 2 PUF BID 03/13 1000 AC 03/15 Formoterol Fumarate INH 2139 Folic Acid 1 MG DAILY 03/13 1000 AC 03/15 PO 1047 Furosemide 80 MG BID 03/14 2200 AC 03/15 IV 1954 Heparin Sodium 5,000 UNIT Q8 03/13 0658 AC 03/16 (Porcine) SC 0512 Insulin Aspart 0 TIDAC 03/13 0800 AC 03/14 SC 1227 Insulin Detemir 15 UNITS BID 03/13 1000 AC 03/15 SC 2139 Iron Sucrose 200 MG DAILY@1500 03/13 1500 AC 03/15 Sodium Chloride 100 ML IV 03/17 1514 1447 Isosorbide 60 MG DAILY 03/13 1000 AC 03/15 Mononitrate PO 1047 Levothyroxine Sodium 0.2 MG DAILY AC 03/16 0700 AC 03/16 PO 0624 Levothyroxine Sodium 0.2 MG DAILY AC 03/13 0700 DC 03/15 PO 0604 Metoprolol Tartrate 100 MG DAILY 03/13 1000 AC 03/15 PO 1046 Oxymetazoline HCl 2 SPRAY BID 03/13 2200 AC 03/15 DALIA 1048 Ramelteon 8 MG AT BEDTIME 03/13 2200 AC 03/15 PO 2139 Senna 374 MG AT BEDTIME 03/14 2200 AC 03/14 PO 2136 Sertraline HCl 100 MG DAILY 03/13 1000 AC 03/15 PO 1047 Sodium Chloride 2 SPRAY Q4P PRN 03/13 2130 AC DALIA Ticagrelor 90 MG BID 03/13 1000 DC 03/15 PO 1049 Trazodone HCl 150 MG AT BEDTIME 03/13 2200 AC 03/15 PO 2138 Last 24 Hrs of Lab/Angus Results Last 24 Hrs of Labs/Mics: Laboratory Tests 03/16/17 0700: Sodium Pending, Potassium Pending, Chloride Pending, Carbon Dioxide Pending, Anion Gap Pending, BUN Pending, Creatinine Pending, BUN/Creatinine Ratio Pending Assessment/Plan Assessment: Patient is still requiring 4.0L oxygen, which is more than his baseline 2.0L. He otherwise feels well and denies any further chest discomfort. He does feel his left leg is more swollen today. The extremity is more tense than yesterday. Ticagrelor remains on hold in anticipation of the Bao Cath placement on tomorrow. He is to be kept NPO in anticipation of this. Formal vascular surgeon recommendations still pending. Acute Systolic Congestive Heart Failure / Atrial Flutter / CKD V / CAD / HLD Patient with extesive cardiac history seen for evaluation of chest pain and shortness of breath. Patient of corporate paralegal Dr. Lee. -Telemetry -Daily weights, strict ins & outs, goal 2.0L negative balance / day -Lasix 80mg IV BID -Aspirin 81mg PO Daily -Atorvastatin 80mg PO Daily -Metoprolol 100mg PO Daily -Ticagrelor ON HOLD -Imdur 60mg PO Daily -Venofer 200mg IV Daily, x5 doses -Cardiology consult, following -Nephrology consult, following -Vascular surgery consult, following Chronic Obstructive Pulmonary Disease / Chronic Hypoxic Respiratory Failure -TRC with albuterol/ipratropoum PRN -Supplemental oxygen, taper as tolerated, 2.0L baseline -Symbicort Insulin-dependent Diabetes Mellitus -Accuchecks TIDAC/HS -Hold oral hypoglycemics -Novolog SSI -Levemir 15 Units SC BID Anxiety / Depression -Sertraline 100mg PO Daily -Alprazolam 0.5mg PO BID Hypothyroidism-Levothyroixine 200mcg PO Daily Pain Plan-Acetaminophen Bowel Regimen-Senna Insomnia-Ramelteon / Trazodone Diet- CHF Diet DVT PPx- Subcutaneous Heparin Code Status- FULL CODE Problem List: 1. CHF (congestive heart failure) Pain Ratin Pain Location: None Pain Goal: Remain pain free Pain Plan: See assessment Tomorrow's Labs & Rationales: BEP-CKD LUIS ELDRIDGE,DAVE 03/16/17 1346: Attending MD Review Statement Attending Statement Attending MD Statement: examined this patient, discuss w/resident/PA/BRIM EDGE TRIMMER, agreed w/resident/PA/BRIM EDGE TRIMMER, reviewed EMR data (avail), discussed with nursing, discussed with case mgmt, amended to note Attending Assessment/Plan: Problems: -Acute on chronic systolic heart failure -Coronary artery disease status post cardiac catheterization October 2016. Revealed extensive coronary artery disease not amenable to optimal revascularization. He does have 2 drug-eluting stents in place. He was deemed not a candidate for CABG due to the nature of his cardiac vasculature. -End-stage renal disease. -COPD -Insulin-dependent diabetes mellitus -Anxiety disorder/depression -Hypothyroidism -Chronic anemia. Plan: -Case discussed with patient's corporate paralegal Lilibeth Lee MD. Due to the fact that patient had a drug-eluting stent placed earlier on this ear he should ideally have uninterrupted antiplatelet therapy however due to the risk of bleeding intervention radiology service as recommended briefly holding his antiplatelet therapy. Procedure was initially planned to be done on Tuesday however Colin discussion with Lilibeth Lee MD interventional radiology service will be placing his Bao catheter tomorrow. --Following the procedure since patient will be on hemodialysis he'll receive antiplatelet therapy with Plavix going forward. He will receive a loading of 300 mg and then maintenance dose of 75 mg daily. - pending hemodialysis continue aggressive diuresis with Lasix 80 mg IV twice daily. -Continue his other cardiac regimen. -Continue IV iron per recommendations of the nephrology service. -Hopefully his cardiac symptoms were resolved following hemodialysis. Due to the low likelihood of optimal revascularization he will continue with medical management for his coronary artery disease.
[2017-03-16 08:06] VITALS: BP 120/70
--- NOTE | 2017-03-16 09:25 | NUR ---
Physical Therapy - Consult received and chart reviewed, pt is mobilizing independent in room per nursing. Nursing to increase activity as tolerated, no acute skilled PT needed at this time. Please reconsult if mobility status declines.
[2017-03-16 16:11] VITALS: BP 120/80
--- NOTE | 2017-03-16 16:40 | PN- Nephrology ---
Assessment/Plan Assessment: CKD V. CHF. Plans noted. Pt for ROBINA noted. Will start dialysis after ROBINA placed (either tomorrow or Tuesday depending on timing of placement). Serg Pradhan MD. Suggestion: . Subjective Subjective: Still edematous. Plans noted. ROBINA tomorrow. Objective Vital Signs and I&Os Vital Signs 120.80 80 98.3 Lungs clear Cor RRR Abd soft N/T Ext neg edema Results Pertinent Lab Results: 138 / 95 / 88 / 3.8 / 26 /6.2\
--- NOTE | 2017-03-16 20:09 | PN- Cardiology ---
Subjective Subjective: Stable and unchanged. Still with MORALES. Objective Vital Signs and I&Os Vital Signs Date Time Temp Pulse Resp B/P B/P Pulse O2 O2 Flow FiO2 Mean Ox Delivery Rate 03/16 1925 91 Nasal 4.0L Cannula 03/16 1611 98.3 80 20 120/80 91 03/16 1050 95 Nasal 4.0L Cannula 03/16 1029 84 120/70 03/16 1029 84 120/70 03/16 0806 98.4 84 18 120/70 94 Nasal 4.0L Cannula 03/16 0800 94 Nasal 4.0L Cannula 03/16 0100 97.8 91 18 122/70 92 Nasal 4.0L Cannula 03/16 0000 Nasal 4.0L Cannula Intake & Output 03/16 1600 03/16 0803/16 0000 03/15 1600 03/15 0800 03/15 0000 Intake Total 720 240 440 440 240 450 Output Total 175 650 475 250 700 500 Balance 545 -410 -35 190 -460 -50 Intake, Oral 720 240 440 440 240 450 Number 1 1 1 Bowel Movements Output, Urine 175 650 475 250 700 500 Patient 215 lb 216 lb 216 lb Weight Weight Chair scale Chair scale Standing Scale Measurement Method Current Medications: Current Medications Sig/Julissa Start time Last Medication Dose Route Stop Time Status Admin Acetaminophen 650 MG Q6P PRN 03/13 0700 AC PO Albuterol Sulfate 3 ML BID 03/13 1000 AC 03/16 INH 1925 Albuterol Sulfate 2 PUF Q4-6 PRN PRN 03/13 0600 AC 03/14 INH 2139 Alprazolam 0.5 MG BID 03/13 1000 AC 03/16 PO 03/20 0959 1032 Aspirin Buffered 81 MG DAILY 03/13 1000 AC 03/16 PO 1029 Atorvastatin Calcium 80 MG 1700 / 1700 AC 03/16 PO 1710 Budesonide/ 2 PUF BID 03/13 1000 AC 03/16 Formoterol Fumarate INH 1028 Folic Acid 1 MG DAILY / 1000 AC 03/16 PO 1029 Furosemide 80 MG BID 03/14 2200 AC 03/16 IV 1028 Heparin Sodium 5,000 UNIT Q8 / 0658 AC 03/16 (Porcine) SC 1451 Insulin Aspart 0 TIDAC 03/13 0800 AC 03/16 SC 1710 Insulin Detemir 15 UNITS BID 06/04 1000 AC 03/16 SC 1028 Iron Sucrose 200 MG DAILY@1500 03/13 1500 AC 03/16 Sodium Chloride 100 ML IV 03/17 1514 1710 Isosorbide 60 MG DAILY 03/13 1000 AC 03/16 Mononitrate PO 1029 Levothyroxine Sodium 0.2 MG DAILY AC 03/16 0700 AC 03/16 PO 0624 Levothyroxine Sodium 0.2 MG DAILY AC 03/13 0700 DC 03/15 PO 0604 Metoprolol Tartrate 100 MG DAILY 03/13 1000 AC 03/16 PO 1029 Oxymetazoline HCl 2 SPRAY BID 03/13 2200 AC 03/15 DALIA 1048 Ramelteon 8 MG AT BEDTIME 03/13 2200 AC 03/15 PO 2139 Senna 374 MG AT BEDTIME 03/14 2200 AC 03/14 PO 2136 Sertraline HCl 100 MG DAILY 03/13 1000 AC 03/16 PO 1029 Sodium Chloride 2 SPRAY Q4P PRN 03/13 2130 AC 03/16 DALIA 1036 Trazodone HCl 150 MG AT BEDTIME 03/13 2200 AC 03/15 PO 2138 Results Last 48 Hrs of Labs/Mics: Laboratory Tests 03/16/17 0700: Anion Gap 18 H, Estimated GFR 9 L, BUN/Creatinine Ratio 14.2 03/15/17 0617: Anion Gap 18 H, Estimated GFR 9 L, BUN/Creatinine Ratio 14.5, PT 12.7 H, INR 1.21 H, Hepatitis A IgM Ab NONREACTIVE, Hep Bs Antigen NONREACTIVE, Hep B Core IgM Ab Conf NONREACTIVE, Hepatitis C Antibody NONREACTIVE Assessment/Plan Assessment/Plan Assessment: 1. CAD 2. Diabetes mellitus 3. Chronic kidney disease, stage V 4. Acute HFpEF, somewhat better with diuresis Plan: * Continue 80 mg IV every 12 hours if okay with nephrology * Possible dialysis if indicated as per nephrology * Follow input and output * Check basic metabolic profile daily I discussed the situation with the IM team and with interventional radiology. In view of the multiple recent drug eluting stents, I would favor minimizing the patients time off of antiplatelet therapy. After extended discussion,we have arrived at the following plan: - AshCath placement tomorrow. - Post catheter placement, restart ASA and start Plavix 300 mg x one dose, followed by 75 mg daily to begin the following day. - Dialysis per Nephrology. - THe plan was discussed in detail with the patient as well. Continue telemetry? Yes
--- NOTE | 2017-03-16 21:01 | NUR ---
PT HAS A 10 RUN BEAT OF V TACHY AT ABOUT 18:53 TODAY. PT IS ASYMPTOMATIC. PT IS SPEAKING CLEARLY. NO NUMBNESS/TINGLING. EQUAL FACIAL SYMMETRY. PT STATES "I FEEL FINE." NO C/O CP. DR. PEÑA INFORMED AND ASSESSED PT. CONTINUING TO MONITOR PT.
[2017-03-17 00:21] VITALS: BP 136/74
--- NOTE | 2017-03-17 06:04 | PN- Housestaff ---
JAIRO PEÑA MD 03/17/17 0603: Subjective Follow-up For: Acute on chronic CHF CKD Stage V Tele-Events Since Last Visit: NSR HR 80-90 No ectopy overnight 10-beat VT yesterday afternoon Subjective: Patient seen and examined. He is seen sitting upright in his chair at bedside resting comfortably maintained on supplemental oxygen via nasal cannula. He appears to be in no acute distress. He reports not sleeping well last night, but otherwise feels well. He reports his lower extremities are persistently swollen but do appear mildly improved today. He reports that he is now making small amounts of urine. Additionally he denies any headache, fever, chills, chest pain/discomfort, palpitiations, shortness of breath, nausea, vomiting, diarrhea. No overnight events reported. Review of Systems Constitutional: Reports: see HPI. Objective Last 24 Hrs of Vital Signs/I&O Vital Signs Date Time Temp Pulse Resp B/P B/P Pulse O2 O2 Flow FiO2 Mean Ox Delivery Rate 03/17 0945 94 Nasal 4.0L Cannula 03/17 0916 90 122/70 03/17 0916 90 122/70 03/17 0842 98.6 90 18 122/70 03/17 0021 98.1 94 20 136/74 90 Nasal Cannula 03/17 0000 Nasal 4.0L Cannula 03/16 1925 91 Nasal 4.0L Cannula 03/16 1611 98.3 80 20 120/80 91 /07 1600 92 Nasal 4.0L Cannula Intake & Output 03/17 1600 08 0800 0608 0000 Intake Total 300 180 Output Total 950 300 Balance -650 -120 Intake, IV 300 30 Intake, Oral 0 150 Output, Urine 950 300 Patient 97.069 kg Weight Weight Chair scale Measurement Method Physical Exam General Appearance: Alert, Oriented X3, Cooperative, No Acute Distress Other Physical Findings: General- well developed, obese middle aged man in no acute distress HEENT- NCAT, PERRL, EOMI, anicteric sclera, moist mucous membranes, nasal cannula in place Neck- Supple, no JVD CVS- S1, S2 w/o m/g/r; RRR Resp- CTA bilaterally GI- Soft, obese, nontender, nondistended, bowel sounds intact Neuro- Awake and alert, CN II - XII grossly intact Ext- normal pulses, 2+ bilateral lower extremity edema, no cyanosis Current Medications: Current Medications Sig/Julissa Start time Last Medication Dose Route Stop Time Status Admin Acetaminophen 650 MG Q6P PRN 03/13 0700 AC PO Albuterol Sulfate 3 ML BID 03/13 1000 AC 03/17 INH 0943 Albuterol Sulfate 2 PUF Q4-6 PRN PRN 03/13 0600 AC 06 INH 2139 Alprazolam 0.5 MG BID 03/13 1000 AC / PO 06 0959 0914 Aspirin Buffered 81 MG DAILY 03/13 1000 AC 03/17 PO 0915 Atorvastatin Calcium 80 MG 1700 06/04 1700 AC 03/16 PO 1710 Budesonide/ 2 PUF BID 03/13 1000 AC 03/17 Formoterol Fumarate INH 0913 Dextrose/Sodium 1,000 ML Q20H / 0300 AC 03/17 Chloride IV 0302 Folic Acid 1 MG DAILY 03/13 1000 AC 03/17 PO 0915 Furosemide 80 MG BID 03/14 2200 AC 03/17 IV 0913 Heparin Sodium 5,000 UNIT Q8 / 0658 AC 03/17 (Porcine) SC 0656 Insulin Aspart 0 TIDAC 03/13 0800 DC 03/16 SC 1710 Insulin Detemir 7 UNITS BID 03/17 1000 AC 03/17 SC 0914 Insulin Detemir 15 UNITS BID 03/13 1000 DC 03/16 SC 2156 Insulin Human Regular 0 Q6 /08 0600 AC 03/17 SC 0657 Iron Sucrose 200 MG DAILY@1500 / 1500 AC 03/16 Sodium Chloride 100 ML IV 03/17 1514 1710 Isosorbide 60 MG DAILY 03/13 1000 AC 03/17 Mononitrate PO 0916 Levothyroxine Sodium 0.2 MG DAILY AC 03/16 0700 AC 03/17 PO 0656 Lidocaine 0 .STK-MED ONE 03/17 1028 DC .ROUTE Lidocaine/Epinephrine 0 .STK-MED ONE 03/17 1029 DC .ROUTE Metoprolol Tartrate 100 MG DAILY 03/13 1000 AC 03/17 PO 0916 Oxymetazoline HCl 2 SPRAY BID 03/13 2200 AC 03/15 DALIA 1048 Ramelteon 8 MG AT BEDTIME 03/13 2200 AC 03/16 PO 2156 Senna 374 MG AT BEDTIME 03/14 2200 AC 03/16 PO 2155 Sertraline HCl 100 MG DAILY 03/13 1000 AC 03/17 PO 0916 Sodium Chloride 2 SPRAY Q4P PRN 03/13 2130 AC 03/16 DALIA 1036 Trazodone HCl 150 MG AT BEDTIME 03/13 2200 AC 03/16 PO 2155 Last 24 Hrs of Lab/Angus Results Last 24 Hrs of Labs/Mics: Laboratory Tests 03/17/17 0612: Anion Gap 18 H, Estimated GFR 10 L, BUN/Creatinine Ratio 15.8 Assessment/Plan Assessment: Patient was kept NPO overnight in anticipation of placement of a dialysis catheter today. Patient underwent the procedure and tolerated it well for which he then went to hemodialysis. He is still requiring 4.0L supplemental oxygen. He was given plavix 300mg by mouth after the procedure and will be continued on 75mg daily thereafter. Acute Systolic Congestive Heart Failure / Atrial Flutter / CKD V / CAD / HLD Patient with extesive cardiac history seen for evaluation of chest pain and shortness of breath. Patient of manager art Dr. Lee. -Telemetry -Daily weights, strict ins & outs -Lasix 80mg IV BID -Aspirin 81mg PO Daily -Atorvastatin 80mg PO Daily -Metoprolol 100mg PO Daily -Ticagrelor ON HOLD -Imdur 60mg PO Daily -Venofer 200mg IV Daily, x5 doses -Cardiology consult, following -Nephrology consult, following -Vascular surgery consult, recommendations pending Chronic Obstructive Pulmonary Disease / Chronic Hypoxic Respiratory Failure -TRC with albuterol/ipratropoum PRN -Supplemental oxygen, taper as tolerated, 2.0L baseline -Symbicort Insulin-dependent Diabetes Mellitus -Accuchecks TIDAC/HS -Hold oral hypoglycemics -Novolog SSI -Levemir 15 Units SC BID Anxiety / Depression -Sertraline 100mg PO Daily -Alprazolam 0.5mg PO BID Hypothyroidism-Levothyroixine 200mcg PO Daily Pain Plan-Acetaminophen Bowel Regimen-Senna Insomnia-Ramelteon / Trazodone Diet- CHF Diet DVT PPx- Subcutaneous Heparin Code Status- FULL CODE Problem List: 1. CHF (congestive heart failure) 2. CKD (chronic kidney disease), stage V Pain Ratin Pain Location: None Pain Goal: Remain pain free Pain Plan: See assessment Tomorrow's Labs & Rationales: ANNIE SMITH MDDAVE 03/17/17 1059: Attending MD Review Statement Attending Statement Attending MD Statement: examined this patient, discuss w/resident/PA/STEEL MELTER, agreed w/resident/PA/STEEL MELTER, reviewed EMR data (avail), discussed with nursing, discussed with case mgmt, amended to note Attending Assessment/Plan: Patient seen and examined. Resting comfortably not in any acute distress. No issues overnight. So far patient remains hemodynamically stable. Weight has been stable over the past 2 days with no changes. He continues to require oxygen supplementation at 4 L/m. Breath sounds remain diminished on examination however peripheral edema has significantly improved. Scheduled to undergo Bao catheter placement today. Hemodialysis will be initiated per recommendations of the nephrology service. He will receive Plavix loading after placement of the Bao catheter. Once hemodialysis has been initiated outpatient is cleared by the nephrology service he will be discharged home to continue outpatient hemodialysis.
[2017-03-17 08:42] VITALS: BP 122/70
--- NOTE | 2017-03-17 10:39 | NUR ---
PHYSICAL THERAPY: PT REFUSING PT TODAY DUE TO GOING FOR PROCEDURE THIS MORNING
--- NOTE | 2017-03-17 10:43 | PN- Nephrology ---
Assessment/Plan Assessment: CKD V. CHF. ROBINA today around 11AM. If that goes close to on time I will plan 1st HD this afternoon with fluid removal as tolerated. Serg Pradhan MD. Suggestion: . Subjective Subjective: Still SOB. For ROBINA today. Walked a bit yesterday but SOB/fatigue to door. PT saw patient. Objective Vital Signs and I&Os M weak 122/70 90 98.6 Lungs diminished bases Cor RRR Abd soft n/T Ext 2+edema Results Pertinent Lab Results: 137 / 95 / 90 / 4.0 / 18 / 5.7\ Hep B S Ag negative
--- NOTE | 2017-03-17 13:24 | PN- Cardiology ---
Subjective Subjective: Stable and slightly improved clinically today. Respiratory status somewhat better. NO new cardiovascular symptoms. Dialysis catheter placement today. Objective Vital Signs and I&Os Vital Signs Date Time Temp Pulse Resp B/P B/P Pulse O2 O2 Flow FiO2 Mean Ox Delivery Rate 03/17 0945 94 Nasal 4.0L Cannula 03/17 0916 90 122/70 03/17 0916 90 122/70 03/17 0842 98.6 90 18 122/70 03/17 0800 91 Nasal 4.0L Cannula 03/17 0021 98.1 94 20 136/74 90 Nasal Cannula 03/17 0000 Nasal 4.0L Cannula 03/16 1925 91 Nasal 4.0L Cannula 03/16 1611 98.3 80 20 120/80 91 03/16 1600 92 Nasal 4.0L Cannula Intake & Output 03/17 1600 03/17 0800 03/17 0000 03/16 1600 03/16 0800 03/16 0000 Intake Total 30 300 180 720 240 440 Output Total 300 950 300 175 650 475 Balance -270 -650 -120 545 -410 -35 Intake, IV 300 30 Intake, Oral 30 0 150 720 240 440 Number 1 Bowel Movements Output, Urine 300 950 300 175 650 475 Patient 214 lb 215 lb 216 lb Weight Weight Chair scale Chair scale Chair scale Measurement Method Physical Exam: General- well developed, obese WM in NAD; alert and oriented HEENT- NCAT, PERRL, EOMI, anicteric sclera, moist mucous membranes, nasal cannula in place Neck- Supple, no JVD, carotids normal bilaterally6 CVS- Regular S1, S2 , 1/6 systolic murmur LSB Resp- Clear bilaterally GI- Soft, obese, nontender, nondistended, bowel sounds intact Neuro- Awake and alert, CN II - XII grossly intact Ext- normal pulses, 2+ bilateral lower extremity edema, no cyanosis Current Medications: Current Medications Sig/Julissa Start time Last Medication Dose Route Stop Time Status Admin Acetaminophen 650 MG Q6P PRN 03/13 07 AC PO Albuterol Sulfate 3 ML BID 03/13 1000 AC 03/17 INH 0943 Albuterol Sulfate 2 PUF Q4-6 PRN PRN 03/13 0600 AC 03/14 INH 2139 Alprazolam 0.5 MG BID 03/13 1000 AC 03/17 PO 03/20 0959 0914 Aspirin Buffered 81 MG DAILY 03/13 1000 AC PO 0915 Atorvastatin Calcium 80 MG 1700 06/04 1700 AC 06/ PO 1710 Budesonide/ 2 PUF BID 06/04 1000 AC 06/08 Formoterol Fumarate INH 0913 Dextrose/Sodium 1,000 ML Q20H 06/08 0300 AC 06/08 Chloride IV 0302 Folic Acid 1 MG DAILY 06/04 1000 AC 06/ PO 0915 Furosemide 80 MG BID 06/ 2200 AC 06/ IV 0913 Heparin Sodium 5,000 UNIT Q8 / 0658 AC 03/17 (Porcine) SC 0656 Insulin Aspart 0 TIDAC / 0800 DC 03/16 SC 1710 Insulin Detemir 7 UNITS BID 03/17 1000 AC 03/17 SC 0914 Insulin Detemir 15 UNITS BID / 1000 DC 03/16 SC 2156 Insulin Human Regular 0 Q6 / 0600 AC 03/17 SC 0657 Iron Sucrose 200 MG DAILY@1500 / 1500 AC 03/16 Sodium Chloride 100 ML IV 03/17 1514 1710 Isosorbide 60 MG DAILY 03/13 1000 AC 03/17 Mononitrate PO 0916 Levothyroxine Sodium 0.2 MG DAILY AC 03/16 0700 AC 03/17 PO 0656 Lidocaine 0 .STK-MED ONE 03/17 1028 DC .ROUTE Lidocaine/Epinephrine 0 .STK-MED ONE 03/17 1029 DC .ROUTE Metoprolol Tartrate 100 MG DAILY / 1000 AC / PO 0916 Oxymetazoline HCl 2 SPRAY BID 03/13 2200 AC 03/15 DALIA 1048 Patient Medication 1 ED .STK-MED ONE 03/17 1312 DC Teaching ED 03/17 1313 Ramelteon 8 MG AT BEDTIME / 2200 AC /07 PO 2156 Senna 374 MG AT BEDTIME / 2200 AC / PO 2155 Sertraline HCl 100 MG DAILY / 1000 AC / PO 0916 Sodium Chloride 2 SPRAY Q4P PRN 03/13 2130 AC 03/16 DALIA 1036 Trazodone HCl 150 MG AT BEDTIME / 2200 AC / PO 2155 Results Last 48 Hrs of Labs/Mics: Laboratory Tests 03/17/17 0612: Anion Gap 18 H, Estimated GFR 10 L, BUN/Creatinine Ratio 15.8 03/16/17 0700: Anion Gap 18 H, Estimated GFR 9 L, BUN/Creatinine Ratio 14.2 Assessment/Plan Assessment/Plan Assessment: 1. CAD 2. Diabetes mellitus 3. Chronic kidney disease, stage V 4. Acute HFpEF, somewhat better with diuresis Plan: * Continue 80 mg IV every 12 hours if okay with nephrology * Possible dialysis if indicated as per nephrology * Follow input and output * Check basic metabolic profile daily I discussed the situation with the IM team and with interventional radiology. In view of the multiple recent drug eluting stents, I would favor minimizing the patients time off of antiplatelet therapy. After extended discussion,we have arrived at the following plan: - AshCath placement today - Post catheter placement, restart ASA and start Plavix 300 mg x one dose, followed by 75 mg daily to begin the following day. - Dialysis per Nephrology. - THe plan was discussed in detail with the patient as well.
--- NOTE | 2017-03-17 15:05 | NUR ---
janae working on dialysis slot
[2017-03-17 16:00] LABS: ABSOLUTE BASOPHIL COUNT 0 /CUMM (0.0-0.2); ABSOLUTE EOSINOPHIL COUNT 0.1 /CUMM (0.0-0.7); ABSOLUTE GRANULOCYTE CT 4.3 /CUMM (1.4-6.5); ABSOLUTE LYMPH COUNT 0.9 /CUMM (1.2-3.4); ABSOLUTE MONOCYTE COUNT 0.6 /CUMM (0.10-0.60); BASOPHIL % 0.5 % (0.0-2.0); EOSINOPHIL % 2.5 % (0-5); GRANULOCYTE % 71.3 % (42.2-75.2); HEMATOCRIT 26.3 % (42-52); MEAN CORPUSCULAR HGB 26.3 PG (27.0-31.0); MEAN CORPUSCULAR HGB CONC 33.2 G/DL (33.0-37.0); MEAN CORPUSCULAR VOLUME 79.2 FL (80.0-94.0); MEAN PLATELET VOLUME 7.6 FL (7.4-10.4); PLATELET COUNT 292 /CUMM (130-400); RBC DISTRIBUTION WIDTH 14.4 % (11.5-14.5); RED BLOOD CELL CT 3.32 /CUMM (4.70-6.10); WHITE BLOOD CELL COUNT 6.1 /CUMM (4.8-10.8)
[2017-03-17 17:00] VITALS: BP 122/78
--- NOTE | 2017-03-17 17:12 | INTERVENTIONAL RADIOLOGY RPT ---
CLINICAL HISTORY: The patient is a 67-year-old male with ESRD, who presents to interventional radiology for placement of a tunneled central venous catheter for hemodialysis. PROCEDURES: 1. Real-time ultrasound-guided access into the right internal jugular vein after documentation of selected vessel patency, and permanent imaging storing in the patient records. 2. Placement of a tunneled 15.5 Fr 27 cm tip to cuff length dual lumen central venous catheter. PHYSICIANS: Dr. Pb Subramanian (attending). The attending radiologist was present during the procedure and related imaging, and reviewed the report. MONITORING: The procedure was performed with monitored anesthesia care. Continuous blood pressure, pulse oximetry as well as heartrate monitoring was performed by and anesthesiologist. MEDICATIONS: 1. 10 mL of 1% lidocaine SQ. 2. 10 mL of 1% lidocaine with epinephrine SQ. 3. Please see anesthesia charting for additional medications given during the procedure. COMPLICATIONS: None. ESTIMATED BLOOD LOSS: <5 mL SPECIMENS: None. CONTRAST: None. FLUOROSCOPY TIME: 3.4 minutes PROCEDURE NOTE: Informed consent was obtained from the patient prior to the procedure. During this process, the procedure and potential alternatives were explained along with the intended outcome and benefits. The risks of the procedure, including the possibility of an unsuccessful procedure, as well as the risk of not doing the procedure, were discussed. The patient was given the opportunity to ask questions regarding the procedure and appeared competent to make decisions. A signed consent form documenting this discussion was placed in the medical record. A time-out procedure was performed. The patient was placed supine on the fluoroscopy table. The neck and chest were prepped and draped in usual sterile fashion. All elements of maximal sterile barrier technique followed including use of cap, mask, sterile gown, sterile gloves, a sterile full body drape and hand hygiene. Also followed skin preparation with 2% chlorhexidine for cutaneous antisepsis, and sterile ultrasound preparation with sterile gel and probe cover when applicable. Local anesthesia was administered to the access site with lidocaine. The right internal jugular vein was accessed using ultrasound with a 5 Fr Micropuncture set. A 0.018 wire was advanced into the high right atrium for measuring purposes. The 0.018 wire was subsequently exchanged for a 0.035 Amplatz wire that was advanced to the IVC to maintain access during the tunneling process. Next, subcutaneous lidocaine was administered to the chest, and a subcutaneous tunnel that connects to the venotomy site was created using blunt dissection. The dialysis catheter was sized for the correct tunnel length. The catheter was then pulled through the tunnel. The micropuncture set sheath in the IJ was exchanged over the wire for sequential dilators and lastly a peel-away sheath. The inner dilator and Amplatz wire were removed, and the catheter was advanced through the sheath. The sheath was peeled away. The catheter was tested, flushed, and sutured to the skin with its tip in the high right atrium. The catheter ports were packed with normal saline as the patient was going directly to hemodialysis. The dermatotomy site at the neck was closed with a 4-0 Vicryl suture. FINDINGS: 1. Patent right internal jugular vein. 2. Tip of catheter in the high right atrium. 3. Catheter flushes and aspirates very well with a 10 mL syringe. 4. No pneumothorax. IMPRESSION: Successful and uncomplicated placement of a right internal jugular tunneled hemodialysis catheter. PLAN: 1. The patient was stable after the procedure and was transferred to the interventional recovery area. The patient will be transferred to dialysis. 2. The catheter may be used immediately. 3. The suture securing the catheter should remain in place for 4 weeks or greater.
[2017-03-17 23:13] VITALS: BP 122/60
--- NOTE | 2017-03-18 07:00 | PN- Housestaff ---
JAIRO PEÑA MD 03/18/17 0700: Subjective Follow-up For: Acute on chronic CHF CKD Stage V Tele-Events Since Last Visit: NSR HR 80's-90's 3-beat VT Subjective: Patient seen and examined. He is seen sitting upright in his chair at bedside resting comfortably maintained on supplemental oxygen. He appears to be in no acute distress. He reports sleeping "great" last night and admits to dramatic improved in his lower extremity swelling. He tolerated the dialysis well yesterday and overall feels much improved. He does however admit to still being weak, only able to ambulate to the bathroom and back comfortably. Otherwise he denies any fevever, chills, chest pain/discomfort, worsening shortness of breath, cough, nausea, vomiting. No overnight events reported. Review of Systems Constitutional: Reports: see HPI. Objective Last 24 Hrs of Vital Signs/I&O Vital Signs Date Time Temp Pulse Resp B/P B/P Pulse O2 O2 Flow FiO2 Mean Ox Delivery Rate 03/18 0000 94 Nasal 3.5L Cannula 03/17 2313 99.3 95 16 122/60 91 Nasal Cannula 03/17 1815 94 Nasal 3.5L Cannula 03/17 1700 99.3 81 18 122/78 95 Nasal 3.5L Cannula 03/17 1600 Nasal 4.0L Cannula 03/17 0945 94 Nasal 4.0L Cannula 03/17 0916 90 122/70 03/17 0916 90 122/70 03/17 0842 98.6 90 18 122/70 Intake & Output 03/18 1600 03/18 0800 03/18 0000 Intake Total 200 500 Output Total 300 300 Balance -100 200 Intake, IV 20 Intake, Oral 200 480 Output, Urine 300 300 Patient 93.497 kg Weight Weight Chair scale Measurement Method Physical Exam General Appearance: Alert, Oriented X3, Cooperative, No Acute Distress Other Physical Findings: General- well developed, obese middle aged man in no acute distress HEENT- NCAT, PERRL, EOMI, anicteric sclera, moist mucous membranes, nasal cannula in place Neck- Supple, no JVD CVS- S1, S2 w/o m/g/r; RRR Resp- CTA bilaterally GI- Soft, obese, nontender, nondistended, bowel sounds intact Neuro- Awake and alert, CN II - XII grossly intact Ext- normal pulses, no cyanosis/clubbing/edema Current Medications: Current Medications Sig/Julissa Start time Last Medication Dose Route Stop Time Status Admin Acetaminophen 650 MG .STK-MED ONE 03/17 2058 DC PO 03/17 2059 Acetaminophen 650 MG Q6P PRN 03/13 0700 AC 03/17 PO 205 Albuterol Sulfate 3 ML BID 03/13 1000 AC 03/17 INH 1815 Albuterol Sulfate 2 PUF Q4-6 PRN PRN 03/13 0600 AC 03/14 INH 2139 Alprazolam 0.5 MG BID 03/13 1000 AC 03/17 PO 03/20 0959 2058 Aspirin Buffered 81 MG DAILY 03/13 1000 AC 03/17 PO 0915 Atorvastatin Calcium 80 MG 1700 03/13 1700 AC 03/17 PO 1844 Budesonide/ 2 PUF BID 03/13 1000 AC 03/17 Formoterol Fumarate INH 2057 Clopidogrel Bisulfate 75 MG DAILY 03/18 1000 AC PO Clopidogrel Bisulfate 300 MG ONCE ONE 03/17 1445 DC 03/17 PO 03/17 1446 1845 Dextrose/Sodium 1,000 ML Q20H / 0300 DC 03/17 Chloride IV 0302 Fentanyl Citrate 200 MCG .STK-MED ONE 03/17 1237 DC IM 03/17 1238 Folic Acid 1 MG DAILY 03/13 1000 AC 03/17 PO 0915 Furosemide 80 MG BID 03/14 2200 AC 03/17 IV 2058 Heparin Sodium 5,000 UNIT Q8 03/13 0658 AC 03/18 (Porcine) SC 0618 Insulin Aspart 0 TIDAC 03/17 1700 AC SC Insulin Detemir 15 UNITS BID 03/17 2200 AC 03/17 SC 205 Insulin Detemir 7 UNITS BID 03/17 1000 DC 03/17 SC 0914 Insulin Human Regular 0 Q6 03/17 0600 DC 03/17 SC 0657 Iron Sucrose 200 MG DAILY@1500 03/13 1500 DC 03/17 Sodium Chloride 100 ML IV 03/17 1514 1844 Isosorbide 60 MG DAILY 03/13 1000 AC 03/17 Mononitrate PO 0916 Ketamine HCl 50 MG .STK-MED ONE 03/17 1237 DC IM 03/17 1238 Levothyroxine Sodium 0.2 MG DAILY AC 03/16 0700 AC 03/18 PO 0619 Lidocaine 0 .STK-MED ONE 03/17 1028 DC .ROUTE Lidocaine/Epinephrine 0 .STK-MED ONE 03/17 1029 DC .ROUTE Metoprolol Tartrate 100 MG DAILY 03/13 1000 AC 03/17 PO 09 Midazolam HCl 5 MG .STK-MED ONE 03/17 1236 DC IM 03/17 1237 Oxymetazoline HCl 2 SPRAY BID 03/13 2200 AC 03/15 DALIA 1048 Patient Medication 1 ED .STK-MED ONE 03/17 1312 DC Teaching ED 03/17 1313 Ramelteon 8 MG AT BEDTIME 03/13 2200 AC 03/17 PO 2058 Senna 374 MG AT BEDTIME 03/14 2200 AC 03/17 PO 2057 Sertraline HCl 100 MG DAILY 03/13 1000 AC 03/17 PO 09 Sodium Chloride 2 SPRAY Q4P PRN 03/13 2130 AC 03/16 DALIA 1036 Trazodone HCl 150 MG AT BEDTIME 03/13 2200 AC 03/17 PO 2058 Last 24 Hrs of Lab/Angus Results Last 24 Hrs of Labs/Mics: Laboratory Tests 03/17/17 1428: Anion Gap 14, Estimated GFR 10 L, BUN/Creatinine Ratio 15.2, Glucose 137 H, Calcium 6.0 L, CBC w Diff NO MAN DIFF REQ, RBC 3.32 L, MCV 79.2 L, MCH 26.3 L, RDW 14.4, MPV 7.6, Gran % 71.3, Lymphocytes % 15.3 L, Monocytes % 10.4 H, Eosinophils % 2.5, Basophils % 0.5, Absolute Granulocytes 4.3, Absolute Lymphocytes 0.9 L, Absolute Monocytes 0.6, Absolute Eosinophils 0.1, Absolute Basophils 0, PUBS MCHC 33.2, Hep Bs Antibody Pending Assessment/Plan Assessment: Patient underwent hemodialysis yesterday and reported dramatic improvement. He is tolerating plavix well with no complications. He is to undergo another session of hemodialysis today and will most likely stay over the weekend. He oxygen requirements remain elevated but are somewhat improved today. He is encouraged to ambulate. PA/Lateral CXR will be obtained after tomororws hemodialysis session. Acute Systolic Congestive Heart Failure / Atrial Flutter / CKD V / CAD / HLD Patient with extesive cardiac history seen for evaluation of chest pain and shortness of breath. Patient of stem roller Dr. Lee. -Telemetry -Daily weights, strict ins & outs -Lasix 80mg IV BID -Aspirin 81mg PO Daily -Atorvastatin 80mg PO Daily -Metoprolol 100mg PO Daily -Ticagrelor ON HOLD -Imdur 60mg PO Daily -Venofer 200mg IV Daily, x5 doses -Cardiology consult, following -Nephrology consult, following -Vascular surgery consult, recommendations pending Chronic Obstructive Pulmonary Disease / Chronic Hypoxic Respiratory Failure -TRC with albuterol/ipratropoum PRN -Supplemental oxygen, taper as tolerated, 2.0L baseline -Symbicort Insulin-dependent Diabetes Mellitus -Accuchecks TIDAC/HS -Hold oral hypoglycemics -Novolog SSI -Levemir 15 Units SC BID Anxiety / Depression -Sertraline 100mg PO Daily -Alprazolam 0.5mg PO BID Hypothyroidism-Levothyroixine 200mcg PO Daily Pain Plan-Acetaminophen Bowel Regimen-Senna Insomnia-Ramelteon / Trazodone Diet- CHF Diet DVT PPx- Subcutaneous Heparin Code Status- FULL CODE Problem List: 1. CHF (congestive heart failure) 2. ESRD (end stage renal disease) Pain Ratin Pain Location: None Pain Goal: Remain pain free Pain Plan: See assessment Tomorrow's Labs & Rationales: None, being ordered by Hemodialysis team [facility]17 1135: Attending MD Review Statement Attending Statement Attending MD Statement: examined this patient, discuss w/resident/PA/VARIETY LATHE OPERATOR, agreed w/resident/PA/VARIETY LATHE OPERATOR, reviewed EMR data (avail), discussed with nursing, discussed with case mgmt, amended to note Attending Assessment/Plan: Patient seen and examined. Resting comfortably and not in any acute distress. He feels better after hemodialysis yesterday. He has lost 4 kg overnight. On examination his peripheral edema has improved significantly and is currently nonexistent. He is maintaining saturation on 3 L of oxygen. Recommendations: -Patient is scheduled for another session of hemodialysis today. -Please follow-up with the nephrology service whether dialysis is going to be just temporary for the hospitalization will be continued long-term upon discharge. -Due to his physical deconditioning she will be discharged to shelter facility once a bed becomes available an outpatient dialysis arrangements have been made if necessary. -His new discharge medications include Plavix 75 mg orally daily. Please follow -up with the nephrology service regarding the need for Lasix orally daily upon discharge. -Case discussed with the nephrology service, So far the nephrology service recommends monitoring the patient in the hospital over the weekend. Further decisions regarding the need for outpatient dialysis will be decided at that time per their recommendation. -Discontinue telemetry monitoring and transfer patient to the general medicine floor once cleared by the cardiology service.
--- NOTE | 2017-03-18 08:59 | PN- Cardiology ---
Subjective Subjective: Dialysis catheter has been placed, and dialysis initiated. The patient reports feeling much better since starting dialysis. Shortness of breath is improving. No chest pain. No palpitations. No diaphoresis. Objective Vital Signs and I&Os Vital Signs Date Time Temp Pulse Resp B/P B/P Pulse O2 O2 Flow FiO2 Mean Ox Delivery Rate 03/18 0847 95 Nasal 3.0L Cannula 03/18 0000 94 Nasal 3.5L Cannula 03/17 2313 99.3 95 16 122/60 91 Nasal Cannula 03/17 1815 94 Nasal 3.5L Cannula 03/17 1700 99.3 81 18 122/78 95 Nasal 3.5L Cannula 03/17 1600 Nasal 4.0L Cannula 03/17 0945 94 Nasal 4.0L Cannula 03/17 0916 90 122/70 03/17 0916 90 122/70 Intake & Output 03/18 1600 09 0800 /09 0000 03/17 1600 03/17 0800 03/17 0000 Intake Total 200 500 30 300 180 Output Total 300 300 300 950 300 Balance -100 200 -270 -650 -120 Intake, IV 20 300 30 Intake, Oral 200 480 30 0 150 Output, Urine 300 300 300 950 300 Patient 206 lb 214 lb 214 lb Weight Weight Chair scale Chair scale Measurement Method Physical Exam: Gen: NAD HEENT: normal Lungs: Scattered rales bilaterally, normal resp. effort Heart: RRR, S1, S2, no murmurs Abdomen: Soft, nontender, no masses Extremities: 2+ edema Neuro: Alert and oriented x 3, cranial nerves intact Current Medications: Current Medications Sig/Julissa Start time Last Medication Dose Route Stop Time Status Admin Acetaminophen 650 MG .STK-MED ONE 03/17 2058 DC PO 03/17 2059 Acetaminophen 650 MG Q6P PRN 03/13 07 AC 03/17 PO 2057 Albuterol Sulfate 3 ML BID 03/13 1000 AC 03/18 INH 0839 Albuterol Sulfate 2 PUF Q4-6 PRN PRN 03/13 06 AC 03/14 INH 2139 Alprazolam 0.5 MG BID 03/13 1000 AC 03/17 PO 03/20 959 205 Aspirin Buffered 81 MG DAILY 03/13 1000 AC 03/17 PO 0915 Atorvastatin Calcium 80 MG 1700 03/13 1700 AC 03/17 PO 1844 Budesonide/ 2 PUF BID 03/13 1000 AC 03/17 Formoterol Fumarate INH 2058 Clopidogrel Bisulfate 75 MG DAILY 03/18 1000 AC PO Clopidogrel Bisulfate 300 MG ONCE ONE 03/17 1445 DC 03/17 PO 03/17 1446 1845 Dextrose/Sodium 1,000 ML Q20H 03/17 0300 DC 03/17 Chloride IV 0302 Fentanyl Citrate 200 MCG .STK-MED ONE 03/17 1237 DC IM 03/17 1238 Folic Acid 1 MG DAILY 03/13 1000 AC 03/17 PO 0915 Furosemide 80 MG BID 03/14 2200 AC 03/17 IV 2058 Heparin Sodium 5,000 UNIT Q8 03/13 0658 AC 03/18 (Porcine) SC 0618 Insulin Aspart 0 TIDAC 03/17 1700 AC SC Insulin Detemir 15 UNITS BID 03/17 2200 AC 03/17 SC 205 Insulin Detemir 7 UNITS BID 03/17 1000 DC 03/17 SC 0914 Insulin Human Regular 0 Q6 03/17 0600 DC 03/17 SC 0657 Iron Sucrose 200 MG DAILY@1500 03/13 1500 DC 03/17 Sodium Chloride 100 ML IV 03/17 1514 1844 Isosorbide 60 MG DAILY 03/13 1000 AC 03/17 Mononitrate PO 0916 Ketamine HCl 50 MG .STK-MED ONE 03/17 1237 DC IM 03/17 1238 Levothyroxine Sodium 0.2 MG DAILY AC 03/16 0700 AC 03/18 PO 0619 Lidocaine 0 .STK-MED ONE 03/17 1028 DC .ROUTE Lidocaine/Epinephrine 0 .STK-MED ONE 03/17 1029 DC .ROUTE Metoprolol Tartrate 100 MG DAILY 03/13 1000 AC 03/17 PO 0916 Midazolam HCl 5 MG .STK-MED ONE 03/17 1236 DC IM 03/17 1237 Oxymetazoline HCl 2 SPRAY BID 03/13 2200 AC 03/15 DALIA 1048 Patient Medication 1 ED .STK-MED ONE 03/17 1312 DC Teaching ED 03/17 1313 Ramelteon 8 MG AT BEDTIME 03/13 2200 AC 03/17 PO 2058 Senna 374 MG AT BEDTIME 03/14 2200 AC 03/17 PO 2057 Sertraline HCl 100 MG DAILY 03/13 1000 AC 03/17 PO 0916 Sodium Chloride 2 SPRAY Q4P PRN 03/13 2130 AC 03/16 DALIA 1036 Trazodone HCl 150 MG AT BEDTIME 03/13 2200 AC 03/17 PO 2059 Results Last 48 Hrs of Labs/Mics: Laboratory Tests 03/17/17 1428: Anion Gap 14, Estimated GFR 10 L, BUN/Creatinine Ratio 15.2, Glucose 137 H, Calcium 6.0 L, CBC w Diff NO MAN DIFF REQ, RBC 3.32 L, MCV 79.2 L, MCH 26.3 L, RDW 14.4, MPV 7.6, Gran % 71.3, Lymphocytes % 15.3 L, Monocytes % 10.4 H, Eosinophils % 2.5, Basophils % 0.5, Absolute Granulocytes 4.3, Absolute Lymphocytes 0.9 L, Absolute Monocytes 0.6, Absolute Eosinophils 0.1, Absolute Basophils 0, PUBS MCHC 33.2, Hep Bs Antibody Pending 03/17/17 0612: Anion Gap 18 H, Estimated GFR 10 L, BUN/Creatinine Ratio 15.8 Assessment/Plan Assessment/Plan Assessment: 1. CAD 2. Diabetes mellitus 3. Chronic kidney disease, stage V 4. Acute HFpEF, somewhat better with diuresis Plan: * Dialysis as per nephrology * Check with nephrology regarding whether to continue Lasix now that the patient is on dialysis. * Follow input and output * Check basic metabolic profile daily Continue telemetry? Yes
[2017-03-18 10:00] VITALS: BP 120/68
[2017-03-18 14:14] LABS: ABSOLUTE BASOPHIL COUNT 0 /CUMM (0.0-0.2); ABSOLUTE EOSINOPHIL COUNT 0.1 /CUMM (0.0-0.7); ABSOLUTE GRANULOCYTE CT 4.5 /CUMM (1.4-6.5); ABSOLUTE LYMPH COUNT 0.5 /CUMM (1.2-3.4); ABSOLUTE MONOCYTE COUNT 0.6 /CUMM (0.10-0.60); BASOPHIL % 0.6 % (0.0-2.0); EOSINOPHIL % 1.4 % (0-5); GRANULOCYTE % 78.5 % (42.2-75.2); HEMATOCRIT 28.6 % (42-52); MEAN CORPUSCULAR HGB 26.2 PG (27.0-31.0); MEAN CORPUSCULAR HGB CONC 32.7 G/DL (33.0-37.0); MEAN CORPUSCULAR VOLUME 80.1 FL (80.0-94.0); MEAN PLATELET VOLUME 7.7 FL (7.4-10.4); PLATELET COUNT 270 /CUMM (130-400); RBC DISTRIBUTION WIDTH 14.8 % (11.5-14.5); RED BLOOD CELL CT 3.57 /CUMM (4.70-6.10); WHITE BLOOD CELL COUNT 5.7 /CUMM (4.8-10.8)
--- NOTE | 2017-03-18 14:30 | Discharge Summary ---
Visit Information Visit Dates Admission Date: 03/15/17 Discharge Date: 03/23/17 Hospital Course Course Attending Physician: DAVE SMITH M.D Primary Care Physician: CARLITA PAGE DO Consulting Request: 1 Consulting Specialty: Cardiology Consulting Request: 2 Consulting Specialty: Nephrology Consulting Request: 3 Consulting Specialty: Thoracic/Vascular Surgery Hospital Course: 67-year-old male with a past medical history of coronary artery disease status post stent placements, insulin-dependent diabetes mellitus, peripheral neuropathy, hyperlipidemia, CK D stage V status post left-sided fistula placed by nephrology prior to coming to the ED presented with chief complaint of inability to sleep because of chest pressure on lying down and shortness of breath. Vitals at the time of admission blood pressure 138/68, respiratory rate of 22, pulse 78, afebrile saturating 92% on 3 L of oxygen via nasal cannula. On physical exam he is alert and oriented 3, in mild distress on lying down. Cardiovascular exam pertinent for a normal S1, S2, no murmurs rubs appreciated. Examination of the extremities revealed a left arm well-healing AV fistula, bilateral lower extremity 2-3+ edema. Abdominal exam was benign abdomen soft, nontender, normal bowel sounds in all 4 quadrants. Neuro exam was grossly unremarkable. Labs were pertinent for microcytic anemia with an H&H of 9.2/27.2, normal white blood cell count 6300 and a platelet count of 369,000. Serum chemistries pertinent for hyponatremia with a sodium of 135, potassium of 3.9, BUN 88 with a creatinine of 6.5. BNP was elevated to 25,400. First set of troponin positive at 0.52. LFTs unremarkable with an AST/ALT of 19/27, total bili of 0.9 and alkaline phosphatase of 82. Chest x-ray revealed small bilateral pleural effusions have increased from prior , no overt edema. Echo done in February 2017 showed an EF of 50-55%. EKG showed normal sinus rhythm with left bundle branch block He was admitted to the telemetry floor for acute on chronic heart failure with worsening renal function, demand ischemia. He was evaluated by cardiology, vascular surgery and nephrology and the following problems were addressed: #Acute hypoxemic respiratory failure This was thought to be secondary to fluid overload in the setting of worsening renal function. He was diuresed with IV Lasix to achieve a net negative of 2 L on a daily basis. Of note he had an AV fistula that was placed on 01/17/2017 approximately 7 weeks prior to arrival in the ER. Vascular was consulted who recommended holding off the use of fistula at this time and if it was deemed to have urgent dialysis that an Bao cath be placed. Patient was on dual antiplatelet therapy including Brilinta which was held in anticipation of placement of Bao cath. He was started on Plavix post placement/ He also underwent dialysis and will be following up with Nephrology on discharge. # CKD Stage V Patient underwent Bao Cath placement and was started on dialysis. Of note, he continues to produce minimal amount of urine. He is to F/U with his news assignment editor upon discharge. He was also placed on Lasix 80mg PO daily as per cardiology and nephro recs. He has an outpatient dialysis slot at [facility] for tomorrow at 2 PM. He will aslo be started on Epogen with dialysis as an outpatient. #COPD He was continued on TRC/Nebs. Supplemental O2 with 2.0 liters being at baseline. #IDDM We held his OHG agents in the hospital. He was maintained on Novolog sliding scale. His FSGs ranged 117-264. #CAD S/P stents He was continued on ASA 81 mg daily, Atorvstatin 80mg daily, Imdur 60mg daily, Lopressor 100mg BID. Brillinta was D/C and he was started on Plavix 75mg daily s/p Bao Cath placement. Amlodipine was also discontinued as per nephro recs. #Hypothyroidism - He was continued on Levothyroxine 200mcg PO daily. #Anxiety/ Depression He was continued on Sertraline 100mg PO daily, and Alprazolam 0.5mg BID PO. Complications: None Allergies: Coded Allergies: morphine (Mild, LOOPY 01/18/17) hydromorphone (DEPRESSED RESPIRATIONS 01/18/17) Uncoded Allergies: CONTRAST DYE (CONTRAINDICATED 01/11/17) Significant Procedures: SERVICE DATE: 03/13/17- EXAM TYPE: US - US-HEMODIAL ACCESS SHUNT FINDINGS: Limited bedside portable exam. The proximal brachial artery is patent with a low resistance waveform. The cephalic vein fistula is patent with a low resistance waveform. There is mild aneurysmal change just distal to the arterial anastomosis. There is no mural thrombus. No fluid collection. IMPRESSION: Limited bedside portable exam shows that the left upper extremity brachiocephalic hemodialysis fistula is patent. SERVICE DATE: 03/13/17 EXAM TYPE: RAD - XRY-PORTABLE CHEST XRAY FINDINGS: Low lung volumes. Small pleural effusions with basilar opacities. Central vascular prominence. No overt edema. No pneumothorax. The cardiomediastinal silhouette is grossly unchanged, although visualization is limited. IMPRESSION: Small bilateral pleural effusions with associated airspace opacity. This is increased from prior. Central vascular prominence without overt edema. SERVICE DATE: 03/17/17 EXAM TYPE: IR - FLUORO GUID VENOUS ACCESS; INTERVENTIONAL SETUP; US-GUIDANCE VASCULAR ACCESS CLINICAL HISTORY: The patient is a 67-year-old male with ESRD, who presents to interventional radiology for placement of a tunneled central venous catheter for hemodialysis. PROCEDURES: 1. Real-time ultrasound-guided access into the right internal jugular vein after documentation of selected vessel patency, and permanent imaging storing in the patient records. 2. Placement of a tunneled 15.5 Fr 27 cm tip to cuff length dual lumen central venous catheter. PHYSICIANS: Dr. Pb Subramanian (attending). The attending radiologist was present during the procedure and related imaging, and reviewed the report. MONITORING: The procedure was performed with monitored anesthesia care. Continuous blood pressure, pulse oximetry as well as heartrate monitoring was performed by and anesthesiologist. MEDICATIONS: 1. 10 mL of 1% lidocaine SQ. 2. 10 mL of 1% lidocaine with epinephrine SQ. 3. Please see anesthesia charting for additional medications given during the procedure. COMPLICATIONS: None. ESTIMATED BLOOD LOSS: <5 mL SPECIMENS: None. CONTRAST: None. FLUOROSCOPY TIME: 3.4 minutes PROCEDURE NOTE: Informed consent was obtained from the patient prior to the procedure. During this process, the procedure and potential alternatives were explained along with the intended outcome and benefits. The risks of the procedure, including the possibility of an unsuccessful procedure, as well as the risk of not doing the procedure, were discussed. The patient was given the opportunity to ask questions regarding the procedure and appeared competent to make decisions. A signed consent form documenting this discussion was placed in the medical record. A time-out procedure was performed. The patient was placed supine on the fluoroscopy table. The neck and chest were prepped and draped in usual sterile fashion. All elements of maximal sterile barrier technique followed including use of cap, mask, sterile gown, sterile gloves, a sterile full body drape and hand hygiene. Also followed skin preparation with 2% chlorhexidine for cutaneous antisepsis, and sterile ultrasound preparation with sterile gel and probe cover when applicable. Local anesthesia was administered to the access site with lidocaine. The right internal jugular vein was accessed using ultrasound with a 5 Fr Micropuncture set. A 0.018 wire was advanced into the high right atrium for measuring purposes. The 0.018 wire was subsequently exchanged for a 0.035 Amplatz wire that was advanced to the IVC to maintain access during the tunneling process. Next, subcutaneous lidocaine was administered to the chest, and a subcutaneous tunnel that connects to the venotomy site was created using blunt dissection. The dialysis catheter was sized for the correct tunnel length. The catheter was then pulled through the tunnel. The micropuncture set sheath in the IJ was exchanged over the wire for sequential dilators and lastly a peel-away sheath. The inner dilator and Amplatz wire were removed, and the catheter was advanced through the sheath. The sheath was peeled away. The catheter was tested, flushed, and sutured to the skin with its tip in the high right atrium. The catheter ports were packed with normal saline as the patient was going directly to hemodialysis. The dermatotomy site at the neck was closed with a 4-0 Vicryl suture. FINDINGS: 1. Patent right internal jugular vein. 2. Tip of catheter in the high right atrium. 3. Catheter flushes and aspirates very well with a 10 mL syringe. 4. No pneumothorax. IMPRESSION: Successful and uncomplicated placement of a right internal jugular tunneled hemodialysis catheter. PLAN: 1. The patient was stable after the procedure and was transferred to the interventional recovery area. The patient will be transferred to dialysis. 2. The catheter may be used immediately. 3. The suture securing the catheter should remain in place for 4 weeks or greater. Disposition Summary Disposition Principal Diagnosis: Acute hypoxic respiratory failure 2/2 volume overload. ESRD Additional Diagnosis: CAD s/p stents Hypothyroidism IDDM Anxiey/ Depression COPD on home O2 (2.0 lietrs) Discharge Disposition: SNF Discharge Instructions General Discharge Information Code Status: Full Code Patient's Diet: Renal dialysis Patient's Activity: As tolerated Follow-Up Instructions/Appts: Please follow up with your primary care physician in one week. Please follow up with your news assignment editor in one week. Please follow up with your cook night in one week. Please follow up with your vascular surgeon in one week. Medications at Discharge Discharge Medications: Stop taking the following medications: Ticagrelor (Brilinta) 90 MG TABLET ORAL TWICE DAILY Amlodipine Besylate (Norvasc) 10 MG TABLET ORAL DAILY Continue taking these medications: Liraglutide (Victoza 3-Zeus) 0.6 MG/0.1 ML PEN.INJCTR 1.8 Milligram ORAL DAILY Qty = 9 Comments: Last Taken: 03/23/17 Time: 11:30 AM Metoprolol Tartrate (Metoprolol Tartrate) 100 MG TABLET 1 Tablet ORAL DAILY Qty = 14 Comments: Last Taken: 03/23/17 Time:11:30 AM Clonidine HCl (Clonidine HCl) 0.1 MG TABLET 1 Tablet ORAL TWICE DAILY Qty = 60 Comments: NOT GIVEN IN HOSPITAL Trazodone HCl (Trazodone HCl) 150 MG TABLET 1 Tablet ORAL Every night Qty = 35 Comments: Last Taken: 03/22/17 Time: 10:00 PM Tamsulosin HCl (Tamsulosin HCl) 0.4 MG CAP.ER.24H 1 Capsule ORAL DAILY Qty = 30 Comments: NOT GIVEN IN HOSPITAL Folic Acid (Folic Acid) 1 MG TABLET 1 Tablet ORAL DAILY Qty = 30 Comments: Last Taken: 03/23/17 Time:11:30 AM Aspirin (Ecotrin*) 81 MG TABLET.DR 1 Tablet ORAL DAILY Comments: Last Taken: 03/23/17 Time 11:00 AM Atorvastatin Calcium (Lipitor) 80 MG TABLET 1 Tablet ORAL DAILY Comments: Last Taken: 03/22/17 Time: 6:30 PM Sevelamer Carbonate (Renvela) 800 MG TABLET 2 Tablet ORAL THREE TIMES DAILY Comments: NOT GIVEN IN HOSPITAL Albuterol Sulfate (Proair Hfa) 90 MCG HFA.AER.AD 2 Puff Inhale through mouth EVERY 4-6 HOURS NEEDED as needed for SHORTNESS OF BREATH Qty = 1 Comments: Last Taken: 03/14/17 Time: 9:30 PM Alprazolam (Xanax) 0.5 MG TABLET 1 Tablet ORAL TWICE DAILY as needed for ANXIETY Qty = 15 Comments: Last Taken: 03/23/17 Time: 11:30 AM Budesonide/Formoterol Fumarate (Symbicort 160-4.5 Mcg Inhaler) 160 MCG-4.5 MCG/ ACTUATION HFA.AER.AD 2 Puff Inhale through mouth TWICE DAILY Qty = 1 Instructions: Rinse your mouth after using inhaler. Comments: Last Taken: 03/23/17 Time: 11:30 AM Isosorbide Mononitrate (Isosorbide Mononitrate ER) 60 MG TAB.ER.24H 1 Tablet ORAL DAILY Qty = 30 Comments: Last Taken: 03/23/17 Time: 11:30 AM Levothyroxine Sodium (Synthroid) 200 MCG TABLET 0.2 Milligram ORAL DAILY BEFORE BREAKFAST Days = 28 Comments: Last Taken: 03/23/17 Time: 11:30 AM Levothyroxine Sodium (Synthroid) 25 MCG TABLET 0.025 Milligram ORAL DAILY BEFORE BREAKFAST Days = 30 Comments: NOT GIVEN IN HOSPITAL Ramelteon (Rozerem) 8 MG TABLET 1 Tablet ORAL AT BEDTIME Qty = 30 Comments: Last Taken: 03/22/17 Time: 10:00 PM Sertraline HCl (Zoloft) 50 MG TABLET 1 Tablet ORAL DAILY Qty = 30 Instructions: Take 1/2 tab tomorrow (02/02), followed by 1 tab daily (02/03-) Comments: Last Taken: 03/23/17 Time: 11:30 AM Furosemide (Lasix) 40 MG TABLET 80 Milligram ORAL DAILY Qty = 30 Comments: Last Taken: 03/23/17 Time: 11:30 AM Insulin Glargine,Hum.rec.anlog (Lantus Solostar) 100 UNIT/ML (3 ML) INSULN.PEN 15 Units SUB-Q TWICE DAILY Qty = 30 Comments: NOT GIVEN IN HOSPITAL Sertraline HCl (Zoloft) 100 MG TABLET 1 Tablet ORAL DAILY Comments: Last Taken:03/23/17 Time:11:30 AM Start taking the following new medications: Clopidogrel Bisulfate (Plavix) 75 MG TABLET 75 Milligram ORAL DAILY Qty = 30 No Refills Comments: Last Taken:03/23/17 Time:11:30 AM Copies To: CARLITA PAGE DO; GEOVANY ELDRIDGE,TYRONE PENA MD,EDMUNDO; RL ELDRIDGE,Geo KELLY Attending MD Review Statement Documenting Attending: DAVE SMITH M.D Other Findings: I have reviewed the discharge summary. LETICIA Attending MD Review Statement Documenting Attending: DAVE SMITH M.D
--- NOTE | 2017-03-18 14:35 | PN- Nephrology ---
Assessment/Plan Assessment: ESRD. Had 1st Rx yesterday. Will plan dialysis today with 2-3L UF and again tomorrow. Please recheck CXR PA/Lateral after Tuesday's Rx. Continue to ambulate. Serg Pradhan MD. Suggestion: . Subjective Subjective: Patient starting dialysis. Appreciate IR help with line yesterday. Had 1st HD yesterday with 3L removed. feels better today but still with MORALES (only able to walk to door). Objective Vital Signs and I&Os 120/68 98 99.3 Lungs diminished no rales Cor RRR Abd soft Ext tr edema Results Pertinent Lab Results: labs pending
[2017-03-18 15:30] VITALS: BP 122/68
[2017-03-19 00:30] VITALS: BP 116/84
--- NOTE | 2017-03-19 08:17 | PN- Housestaff ---
JAIRO PEÑA MD 03/19/17 0817: Subjective Follow-up For: Acute on chronic CHF CKD Stage V Subjective: Patient seen and examined. He is seen sitting upright in bed resting comfortably maintained on supplemental oxygen via nasal cannula. He appears to be in no acute distress. He reports feeling dramatically better after his several rounds of hemodialysis, but admits to persistent shortness of breath and decreased exercise tolerance. Otherwise he denies any fever, chills, chest pain, palpitations, shortness of breath, nausea, vomiting, diarrhea. Review of Systems Constitutional: Reports: see HPI. Objective Last 24 Hrs of Vital Signs/I&O Vital Signs Date Time Temp Pulse Resp B/P B/P Pulse O2 O2 Flow FiO2 Mean Ox Delivery Rate 03/20 0000 96 Nasal 3.0L Cannula 03/19 195 97 Nasal 3.0L Cannula 03/19 1716 94 Nasal 3.0L Cannula 03/19 1013 140/64 03/19 1012 140/68 03/19 1007 98 Nasal 3.0L Cannula 03/19 0907 94 Nasal 3.0L Cannula 03/19 09 98.4 83 20 140/70 98 Nasal Cannula Intake & Output 03/20 0800 03/20 0000 03/19 1600 Intake Total 200 400 Output Total 250 450 Balance -50 -50 Intake, Oral 200 400 Output, Urine 250 450 Physical Exam General Appearance: Alert, Oriented X3, Cooperative, No Acute Distress Other Physical Findings: General- well developed, obese middle aged man in no acute distress HEENT- NCAT, PERRL, EOMI, anicteric sclera, moist mucous membranes, nasal cannula in place Neck- Supple, no JVD CVS- S1, S2 w/o m/g/r; RRR Resp- CTA bilaterally GI- Soft, obese, nontender, nondistended, bowel sounds intact Neuro- Awake and alert, CN II - XII grossly intact Ext- normal pulses, no cyanosis/clubbing/edema Current Medications: Current Medications: Current Medications Sig/Julissa Start time Last Medication Dose Route Stop Time Status Admin Acetaminophen 650 MG Q6P PRN 03/13 0700 AC 03/18 PO 2257 Al Hydroxide/Mg 30 ML Q4-6 PRN PRN 03/18 2200 AC 03/18 Hydroxide PO 215 Albuterol Sulfate 3 ML BID 03/13 1000 AC 03/19 INH 195 Albuterol Sulfate 2 PUF Q4-6 PRN PRN 03/13 0600 AC 03/14 INH 213 Alprazolam 0.5 MG BID 03/13 1000 AC 03/19 PO 03/20 0959 2124 Aspirin Buffered 81 MG DAILY 03/13 1000 AC 03/19 PO 1013 Atorvastatin Calcium 80 MG 1700 03/13 1700 AC 03/19 PO 1931 Budesonide/ 2 PUF BID 03/13 1000 AC 03/19 Formoterol Fumarate INH 2126 Clopidogrel Bisulfate 75 MG DAILY 03/18 1000 AC 03/19 PO 1013 Folic Acid 1 MG DAILY 03/13 1000 AC 03/19 PO 1013 Furosemide 80 MG DAILY 03/20 1000 AC PO Furosemide 80 MG BID 03/14 2200 DC 03/19 IV 1012 Heparin Sodium 5,000 UNIT Q8 03/13 0658 AC 03/20 (Porcine) SC 0607 Insulin Aspart 0 TIDAC 03/17 1700 AC 03/19 SC 1301 Insulin Detemir 15 UNITS BID 03/17 2200 AC 03/19 SC 2125 Isosorbide 60 MG DAILY 03/13 1000 AC 03/19 Mononitrate PO 1013 Levothyroxine Sodium 0.2 MG DAILY AC 03/16 0700 AC 03/20 PO 0608 Metoprolol Tartrate 100 MG DAILY 03/13 1000 AC 03/19 PO 1012 Oxymetazoline HCl 2 SPRAY BID 03/13 2200 AC 03/19 DALIA 1024 Ramelteon 8 MG AT BEDTIME 03/13 2200 AC 03/19 PO 2125 Senna 374 MG AT BEDTIME 03/14 2200 AC 03/19 PO 2124 Sertraline HCl 100 MG DAILY 03/13 1000 AC 03/19 PO 1012 Sodium Chloride 2 SPRAY Q4P PRN 03/13 2130 AC 03/16 DALIA 1036 Trazodone HCl 150 MG AT BEDTIME 03/13 2200 AC 03/19 PO 212 Last 24 Hrs of Lab/Angus Results Last 24 Hrs of Labs/Mics: Laboratory Tests 03/19/17 1413: Glucose 207 H, Calcium 7.2 L, CBC w Diff NO MAN DIFF REQ, RBC 3.62 L, MCV 80.5, MCH 25.9 L, RDW 15.0 H, MPV 7.4, Gran % 72.4, Lymphocytes % 13.1 L, Monocytes % 11.8 H, Eosinophils % 2.1, Basophils % 0.6, Absolute Granulocytes 4.9, Absolute Lymphocytes 0.9 L, Absolute Monocytes 0.8 H, Absolute Eosinophils 0.1, Absolute Basophils 0, PUBS MCHC 32.2 L 03/19/17 0705: Anion Gap 15, Estimated GFR 17 L, BUN/Creatinine Ratio 9.2 Assessment/Plan Assessment: Patient continues with hemodialysis with improving creatinine day over day. He does have persistent shortness of breath. PA/Lateral chest x-ray demonstrated cardiomegaly without acute pulmonary edema and small pleural effusions. He is continued on higher than baseline supplemental oxygen. Lasix were converted to 80mg by mouth daily per recommendations of nephrology windows consultant. PT evaluation remains with recommendations to have patient attend short term rehabiliation. Acute Systolic Congestive Heart Failure / Atrial Flutter / CKD V / CAD / HLD Patient with extesive cardiac history seen for evaluation of chest pain and shortness of breath. Patient of supervisor beehive kiln Dr. Lee. -Telemetry -Daily weights, strict ins & outs -Lasix 80mg IV BID -Aspirin 81mg PO Daily -Atorvastatin 80mg PO Daily -Metoprolol 100mg PO Daily -Ticagrelor ON HOLD -Imdur 60mg PO Daily -Venofer 200mg IV Daily, x5 doses -Cardiology consult, following -Nephrology consult, following -Vascular surgery consult, recommendations pending Chronic Obstructive Pulmonary Disease / Chronic Hypoxic Respiratory Failure -TRC with albuterol/ipratropoum PRN -Supplemental oxygen, taper as tolerated, 2.0L baseline -Symbicort Insulin-dependent Diabetes Mellitus -Accuchecks TIDAC/HS -Hold oral hypoglycemics -Novolog SSI -Levemir 15 Units SC BID Anxiety / Depression -Sertraline 100mg PO Daily -Alprazolam 0.5mg PO BID Hypothyroidism-Levothyroixine 200mcg PO Daily Pain Plan-Acetaminophen Bowel Regimen-Senna Insomnia-Ramelteon / Trazodone Diet- CHF Diet DVT PPx- Subcutaneous Heparin Code Status- FULL CODE Problem List: 1. CHF (congestive heart failure) Pain Ratin Pain Location: None Pain Goal: Remain pain free Pain Plan: See assessment Tomorrow's Labs & Rationales: BEP Consulting Request: Consulting Specialty: Thoracic/Vascular Surgery SHERLY ELDRIDGE,NYE 03/19/17 1331: Attending MD Review Statement Attending Statement Attending MD Statement: examined this patient, discuss w/resident/PA/RN GYN, agreed w/resident/PA/RN GYN, reviewed EMR data (avail), discussed with nursing, discussed with case mgmt, reviewed images, amended to note Attending Assessment/Plan: 67-year-old gentleman with past medical history significant for stage V CKD most likely due to diabetes mellitus, coronary artery disease, hypertension, hyperlipidemia, atrial flutter, CHF has been admitted on the floor for fluid overload due to chronic kidney disease and acute on chronic congestive heart failure. And was seen and examined while he was laying on his bed with no active issues or complaints. Patient has been started on dialysis recently and an Bao catheter has been placed which is yet to be matured. He is also kept on IV Lasix and is being followed by supervisor beehive kiln and endorsement clerk. Patient will remain on the floor over the weekend and most likely will get his dialysis today.
[2017-03-19 09:00] VITALS: BP 140/70
--- NOTE | 2017-03-19 13:04 | PN- Cardiology ---
Subjective Subjective: * Patient remains short of breath and can only walk a couple steps before becoming winded. * sinus rhythm * calcium decreased to 6.0 * creatinine 3.7 and now on dialysis Objective Vital Signs and I&Os Vital Signs Date Time Temp Pulse Resp B/P B/P Pulse O2 O2 Flow FiO2 Mean Ox Delivery Rate 03/19 1013 140/64 03/19 1012 140/68 03/19 1007 98 Nasal 3.0L Cannula 03/19 0907 94 Nasal 3.0L Cannula 03/19 0900 98.4 83 20 140/70 98 Nasal Cannula 03/19 0030 99.1 88 18 116/84 20 03/19 0000 92 Nasal 3.0L Cannula 03/18 1953 97 Nasal 3.0L Cannula 03/18 1600 92 Nasal 3.0L Cannula 03/18 1530 98.4 71 16 122/68 92 Nasal 3.0L Cannula Intake & Output 03/19 1600 03/19 0800 03/19 0000 03/18 1600 03/18 0800 03/18 0000 Intake Total 100 400 400 200 500 Output Total 150 200 300 300 Balance 100 250 200 -100 200 Intake, IV 20 Intake, Oral 100 400 400 200 480 Output, Urine 150 200 300 300 Patient 205 lb 203 lb 206 lb Weight Weight Chair scale Chair scale Measurement Method Physical Exam: General: WD/ WN male in NAD; alert and oriented x 3 Neck: no JVD Heart: RRR w/o murmur Lungs: scant crackles at the bases bilaterally Extremities: no edema Assessment/Plan Assessment/Plan * Patient is doing better now that dialysis has been initiated although he still has significant exertional shortness of breath. Obtain a PA and lateral chest X- ray. * Check corrected calcium level and replete is necessary. * Continue IV Lasix for now. Continue telemetry? Yes
[2017-03-19 15:16] LABS: ABSOLUTE BASOPHIL COUNT 0 /CUMM (0.0-0.2); ABSOLUTE EOSINOPHIL COUNT 0.1 /CUMM (0.0-0.7); ABSOLUTE GRANULOCYTE CT 4.9 /CUMM (1.4-6.5); ABSOLUTE LYMPH COUNT 0.9 /CUMM (1.2-3.4); ABSOLUTE MONOCYTE COUNT 0.8 /CUMM (0.10-0.60); BASOPHIL % 0.6 % (0.0-2.0); EOSINOPHIL % 2.1 % (0-5); GRANULOCYTE % 72.4 % (42.2-75.2); HEMATOCRIT 29.1 % (42-52); MEAN CORPUSCULAR HGB 25.9 PG (27.0-31.0); MEAN CORPUSCULAR HGB CONC 32.2 G/DL (33.0-37.0); MEAN CORPUSCULAR VOLUME 80.5 FL (80.0-94.0); MEAN PLATELET VOLUME 7.4 FL (7.4-10.4); PLATELET COUNT 274 /CUMM (130-400); RED BLOOD CELL CT 3.62 /CUMM (4.70-6.10); WHITE BLOOD CELL COUNT 6.7 /CUMM (4.8-10.8)
--- NOTE | 2017-03-19 18:13 | PN- Nephrology ---
Assessment/Plan Assessment: ESRD. On dialysis now. Plan about 2L . Still SOB with walking. would check CXR today or tomorrow. Serg Pradhan MD. Suggestion: . Subjective Subjective: Pt on dialysis now. feels better. still sob but energy much better. Objective Vital Signs and I&Os 140/64 83 98.4 Lungs clear distant BS Cor RRR Abd soft Ext neg edema Results Pertinent Lab Results: labs pending
--- NOTE | 2017-03-19 18:58 | RADIOLOGY REPORT ---
EXAMINATION: XR CHEST CLINICAL INFORMATION: Acute hypoxic respiratory failure. COMPARISON: 03/13/2017 TECHNIQUE: 2 views of the chest were obtained. FINDINGS: Lungs are hypoinflated resulting in crowding of bronchovascular structures in the bases. There are small pleural effusions with bibasilar atelectasis. No evidence of cephalization of pulmonary venous flow or interstitial edema. Cardiac silhouette is mildly enlarged. The tip of the tunneled central venous catheter is in the region of the proximal right atrium. No pneumothorax. No acute skeletal abnormality. The visualized fusion hardware in the lower cervical spine is grossly intact IMPRESSION: 1. Cardiomegaly without acute pulmonary edema. 2. Small pleural effusions and bibasilar atelectasis.
--- NOTE | 2017-03-20 07:12 | PN- Housestaff ---
SHERLY ELDRIDGE,[facility] 03/20/17 0712: Subjective Follow-up For: Acute on chronic CHF CKD Stage V Tele-Events Since Last Visit: Sinus rhythm heart rate 86-100 Subjective: Recent seen and examined this morning. He is lying comfortably in bed in no acute distress, offers no complaints. Review of Systems Constitutional: Reports: see HPI. Objective Last 24 Hrs of Vital Signs/I&O Vital Signs Date Time Temp Pulse Resp B/P B/P Pulse O2 O2 Flow FiO2 Mean Ox Delivery Rate 03/20 0000 96 Nasal 3.0L Cannula 03/19 195 97 Nasal 3.0L Cannula 03/19 1716 94 Nasal 3.0L Cannula 03/19 1013 140/64 03/19 1012 140/68 03/19 1007 98 Nasal 3.0L Cannula 03/19 0907 94 Nasal 3.0L Cannula 03/19 0900 98.4 83 20 140/70 98 Nasal Cannula Intake & Output 03/20 0800 03/20 0000 03/19 1600 Intake Total 480 200 400 Output Total 250 2250 450 Balance 230 -2050 -50 Intake, Oral 480 200 400 Output, 2000 Dialysate Output, Urine 250 250 450 Physical Exam General Appearance: Alert, Oriented X3, Cooperative, No Acute Distress Cardiovascular: Regular Rate, Normal S1, Normal S2, No Murmurs Lungs: Clear to Auscultation, Normal Air Movement Abdomen: Normal Bowel Sounds, Soft, No Tenderness, No Hepatospenomegaly Extremities: No Clubbing, No Cyanosis, No Edema Current Medications: Current Medications Sig/Julissa Start time Last Medication Dose Route Stop Time Status Admin Acetaminophen 650 MG Q6P PRN 03/13 0700 AC 03/18 PO 2257 Al Hydroxide/Mg 30 ML Q4-6 PRN PRN 03/18 2200 AC 03/18 Hydroxide PO 215 Albuterol Sulfate 3 ML BID 03/13 1000 AC 03/19 INH 195 Albuterol Sulfate 2 PUF Q4-6 PRN PRN 03/13 0600 AC 03/14 INH 213 Alprazolam 0.5 MG BID 03/13 1000 AC 03/19 PO 03/20 959 2124 Aspirin Buffered 81 MG DAILY 03/13 1000 AC 03/19 PO 1013 Atorvastatin Calcium 80 MG 1700 / 1700 AC 03/19 PO 1931 Budesonide/ 2 PUF BID 03/13 1000 AC 03/19 Formoterol Fumarate INH 2126 Clopidogrel Bisulfate 75 MG DAILY 03/18 1000 AC 03/19 PO 1013 Folic Acid 1 MG DAILY 03/13 1000 AC 03/19 PO 1013 Furosemide 80 MG DAILY 03/20 1000 AC PO Furosemide 80 MG BID 03/14 2200 DC 03/19 IV 1012 Heparin Sodium 5,000 UNIT Q8 03/13 0658 AC 03/20 (Porcine) SC 0607 Insulin Aspart 0 TIDAC 03/17 1700 AC 03/19 SC 1301 Insulin Detemir 15 UNITS BID 03/17 2200 AC 03/19 SC 2125 Isosorbide 60 MG DAILY 03/13 1000 AC 03/19 Mononitrate PO 1013 Levothyroxine Sodium 0.2 MG DAILY AC 03/16 0700 AC 03/20 PO 0608 Metoprolol Tartrate 100 MG DAILY 03/13 1000 AC 03/19 PO 1012 Oxymetazoline HCl 2 SPRAY BID 03/13 2200 AC 03/19 DALIA 1024 Ramelteon 8 MG AT BEDTIME 03/13 2200 AC 03/19 PO 2125 Senna 374 MG AT BEDTIME 03/14 2200 AC 03/19 PO 2124 Sertraline HCl 100 MG DAILY 03/13 1000 AC 03/19 PO 1012 Sodium Chloride 2 SPRAY Q4P PRN 03/13 2130 AC 03/16 DALIA 1036 Trazodone HCl 150 MG AT BEDTIME 03/13 2200 AC 03/19 PO 2124 Last 24 Hrs of Lab/Angus Results Last 24 Hrs of Labs/Mics: Laboratory Tests 03/20/17 0620: Anion Gap 13, Estimated GFR 19 L, BUN/Creatinine Ratio 7.0 03/19/17 1413: Glucose 207 H, Calcium 7.2 L, CBC w Diff NO MAN DIFF REQ, RBC 3.62 L, MCV 80.5, MCH 25.9 L, RDW 15.0 H, MPV 7.4, Gran % 72.4, Lymphocytes % 13.1 L, Monocytes % 11.8 H, Eosinophils % 2.1, Basophils % 0.6, Absolute Granulocytes 4.9, Absolute Lymphocytes 0.9 L, Absolute Monocytes 0.8 H, Absolute Eosinophils 0.1, Absolute Basophils 0, PUBS MCHC 32.2 L Assessment/Plan Assessment: Patient continues with hemodialysis with improving creatinine day over day. He does have persistent shortness of breath. PA/Lateral chest x-ray demonstrated cardiomegaly without acute pulmonary edema and small pleural effusions. He is continued on higher than baseline supplemental oxygen. Lasix were converted to 80mg by mouth daily per recommendations of nephrology biometrics consultant. PT evaluation remains with recommendations to have patient attend short term rehabiliation. Acute Systolic Congestive Heart Failure / Atrial Flutter / CKD V / CAD / HLD Patient with extesive cardiac history seen for evaluation of chest pain and shortness of breath. Patient of [address] year [address] Lee. -Telemetry -Daily weights, strict ins & outs -Lasix 80mg IV BID -Aspirin 81mg PO Daily -Atorvastatin 80mg PO Daily -Metoprolol 100mg PO Daily -Ticagrelor ON HOLD -Imdur 60mg PO Daily -Venofer 200mg IV Daily, x5 doses -Cardiology consult, following -Nephrology consult, following -Vascular surgery consult, recommendations pending Chronic Obstructive Pulmonary Disease / Chronic Hypoxic Respiratory Failure -TRC with albuterol/ipratropoum PRN -Supplemental oxygen, taper as tolerated, 2.0L baseline -Symbicort Insulin-dependent Diabetes Mellitus -Accuchecks TIDAC/HS -Hold oral hypoglycemics -Novolog SSI -Levemir 15 Units SC BID Anxiety / Depression -Sertraline 100mg PO Daily -Alprazolam 0.5mg PO BID Hypothyroidism-Levothyroixine 200mcg PO Daily Pain Plan-Acetaminophen Bowel Regimen-Senna Insomnia-Ramelteon / Trazodone Diet- CHF Diet DVT PPx- Subcutaneous Heparin Code Status- FULL CODE Problem List: 1. CHF (congestive heart failure) Pain Ratin Pain Location: none Pain Goal: Remain pain free Pain Plan: miold pain pathway Tomorrow's Labs & Rationales: bep Consulting Request: Consulting Specialty: Thoracic/Vascular Surgery SHERLY ELDRIDGE,[facility] 03/20/17 1257: Attending Review Statement Attending Statement Attending MD Statement: examined this patient, discuss w/resident/PA/DIRECTOR [employer], agreed w/resident/PA/DIRECTOR [employer], reviewed EMR data (avail), discussed with nursing, discussed with case mgmt, reviewed images, amended to note Attending Assessment/Plan: 67-year-old gentleman with past medical history significant for stage V CKD most likely due to long standing diabetes mellitus, coronary artery disease, hypertension, hyperlipidemia, atrial flutter, CHF has been admitted on the floor for fluid overload due to chronic kidney disease and acute on chronic congestive heart failure. He was seen and examined while he was laying on his bed with no active issues or complaints. Patient has been started on dialysis recently and an Bao catheter has been placed which is yet to be matured. He is also kept on IV Lasix and is being followed by 4 year olds preschool teacher and remote advisor. About 8 L of fluid were taken out of yesterday through dialysis and patient reports that his shortness of breath has mildly improved.
[2017-03-20 08:37] VITALS: BP 138/60
[2017-03-20 16:25] VITALS: BP 118/65
[2017-03-20 23:38] VITALS: BP 124/70
--- NOTE | 2017-03-21 07:28 | PN- Housestaff ---
MARIANA ELDRIDGE,JAIRO 03/21/17 0728: Subjective Follow-up For: Acute on chronic CHF CKD Stage V Subjective: Patient seen and examined. He is seen sitting upright in bed resting comfortably. He appears mildly uncomfortably, leaning over a garbage can. He reports vomititng just prior to my arrival, stating that he had a "sick stomach " after dialysis. He states it feels like heartburn. Otherwise he still has mild shortness of breath and feels weak. Additionally he denies any headache, fever, chills, chest pain, palpitations, diarrhea. Review of Systems Constitutional: Reports: see HPI. Objective Last 24 Hrs of Vital Signs/I&O Vital Signs Date Time Temp Pulse Resp B/P B/P Pulse O2 O2 Flow FiO2 Mean Ox Delivery Rate 03/21 1410 86 163/73 03/21 1409 80 163/93 03/21 0845 Nasal 4.0L Cannula 03/21 0800 Nasal 3.0L Cannula 03/21 0000 Nasal 3.0L Cannula 03/20 2338 97.9 86 20 124/70 96 Nasal Cannula 03/20 1635 98 Nasal 3.0L Cannula 03/20 1625 99.1 75 20 118/65 99 Nasal 3.0L Cannula Intake & Output 03/21 1600 03/21 0800 03/21 0000 Intake Total 100 100 Output Total Balance 100 100 Intake, Oral 100 100 Patient 92.079 kg Weight Weight Standing Scale Measurement Method Physical Exam General Appearance: Alert, Oriented X3, Cooperative, Mild Distress Other Physical Findings: General- well developed, obese middle aged man in mild distress HEENT- NCAT, PERRL, EOMI, anicteric sclera, moist mucous membranes, nasal cannula in place Neck- Supple, no JVD CVS- S1, S2 w/o m/g/r; RRR Resp- CTA bilaterally GI- Soft, obese, nontender, nondistended, bowel sounds intact Neuro- Awake and alert, CN II - XII grossly intact Ext- normal pulses, no cyanosis/clubbing/edema Current Medications: Current Medications Sig/Julissa Start time Last Medication Dose Route Stop Time Status Admin Acetaminophen 650 MG Q6P PRN 03/13 0700 AC 03/18 PO 2257 Al Hydroxide/Mg 30 ML ONCE ONE 03/21 1330 DC 03/21 Hydroxide PO 03/21 1331 1401 Al Hydroxide/Mg 30 ML .STK-MED ONE 03/20 2021 DC Hydroxide PO 03/20 2022 Al Hydroxide/Mg 30 ML Q4-6 PRN PRN 03/18 2200 AC 03/20 Hydroxide PO 2019 Albuterol Sulfate 3 ML BID 06/ 1000 AC 03/20 INH 1537 Albuterol Sulfate 2 PUF Q4-6 PRN PRN 03/13 0600 AC 03/14 INH 2139 Alprazolam 0.5 MG BID 03/20 1515 AC 03/21 PO 03/27 1514 1400 Aspirin Buffered 81 MG DAILY 03/13 1000 AC 03/21 PO 1411 Atorvastatin Calcium 80 MG 1700 03/13 1700 AC 03/20 PO 1604 Budesonide/ 2 PUF BID 03/13 1000 AC 03/21 Formoterol Fumarate INH 1408 Clopidogrel Bisulfate 75 MG DAILY 03/18 1000 AC 03/21 PO 1410 Folic Acid 1 MG DAILY / 1000 AC 03/21 PO 1409 Furosemide 80 MG DAILY 03/20 1000 AC 03/21 PO 1401 Heparin Sodium 5,000 UNIT Q8 / 0658 AC 03/21 (Porcine) SC 1408 Insulin Aspart 0 TIDAC 03/17 1700 AC 03/20 SC 1210 Insulin Detemir 15 UNITS BID 03/17 2200 AC 03/21 SC 1402 Isosorbide 60 MG DAILY 03/13 1000 AC 03/21 Mononitrate PO 1410 Levothyroxine Sodium 0.2 MG DAILY AC 03/16 0700 AC 03/21 PO 0603 Metoprolol Tartrate 100 MG DAILY 03/13 1000 AC 03/21 PO 1409 Ondansetron HCl 4 MG Q6P PRN 03/21 1600 AC IV Oxymetazoline HCl 2 SPRAY BID 03/13 2200 AC 03/20 DALIA 2113 Ramelteon 8 MG AT BEDTIME 03/13 2200 AC 03/20 PO 211 Senna 374 MG AT BEDTIME 03/14 2200 AC 03/20 PO 211 Sertraline HCl 100 MG DAILY 03/13 1000 AC 03/21 PO 1402 Sodium Chloride 2 SPRAY Q4P PRN 03/13 2130 AC 03/16 DALIA 1036 Trazodone HCl 150 MG AT BEDTIME 03/13 2200 AC 03/20 PO 211 Last 24 Hrs of Lab/Angus Results Last 24 Hrs of Labs/Mics: Laboratory Tests 03/21/17 0835: Anion Gap 12, Estimated GFR 14 L, BUN/Creatinine Ratio 9.5, CBC w Diff NO MAN DIFF REQ, RBC 3.55 L, MCV 79.0 L, MCH 26.4 L, RDW 14.4, MPV 7.5, Gran % 64.2, Lymphocytes % 20.5, Monocytes % 11.3 H, Eosinophils % 3.4, Basophils % 0.6, Absolute Granulocytes 3.6, Absolute Lymphocytes 1.2, Absolute Monocytes 0.6, Absolute Eosinophils 0.2, Absolute Basophils 0, PUBS MCHC 33.3 Assessment/Plan Assessment: Patient developed nausea with nonbloody, bilious vomiting after his session of hemodialysis today with associated heartburn. Vitals remain within normal limts, physical exam demonstrates clear lungs with markedly improved lower extremity edema. Telemetry is discontinued and patient is to be transferred to the general medicine floor. He is to remain in hospital for further dialysis sessions per nephroloy. Discharge dose of lasix must be confirmed with nephrology. Acute Systolic Congestive Heart Failure / Atrial Flutter / CKD V / CAD / HLD Patient with extesive cardiac history seen for evaluation of chest pain and shortness of breath. Patient of orthopedic designer Dr. Lee. -Telemetry -Daily weights, strict ins & outs -Lasix 80mg PO Daily -Aspirin 81mg PO Daily -Atorvastatin 80mg PO Daily -Metoprolol 100mg PO Daily -Plavix 75mg PO Daily -Imdur 60mg PO Daily -Venofer 200mg IV Daily, x5 doses -Cardiology consult, following -Nephrology consult, following Chronic Obstructive Pulmonary Disease / Chronic Hypoxic Respiratory Failure -TRC with albuterol/ipratropoum PRN -Supplemental oxygen, taper as tolerated, 2.0L baseline -Symbicort Insulin-dependent Diabetes Mellitus -Accuchecks TIDAC/HS -Hold oral hypoglycemics -Novolog SSI -Levemir 15 Units SC BID Anxiety / Depression -Sertraline 100mg PO Daily -Alprazolam 0.5mg PO BID Hypothyroidism-Levothyroixine 200mcg PO Daily Pain Plan-Acetaminophen Bowel Regimen-Senna Insomnia-Ramelteon / Trazodone Diet- CHF Diet DVT PPx- Subcutaneous Heparin Code Status- FULL CODE Problem List: 1. CHF (congestive heart failure) Pain Ratin Pain Location: None Pain Goal: Remain pain free Pain Plan: See assessment Tomorrow's Labs & Rationales: BEP with hemodialysis Consulting Request: Consulting Specialty: Thoracic/Vascular Surgery DENICE SMITH MDANDRIYSHERYL 03/21/17 9548: Attending MD Review Statement Attending Statement Attending MD Statement: examined this patient, discuss w/resident/PA/TECHNICIAN PREVENTATIVE MEDICINE, agreed w/resident/PA/TECHNICIAN [employer]AT[employer] MEDICINE, reviewed EMR data (avail), discussed with nursing, discussed with case mgmt, amended to note Attending Assessment/Plan: Patient seen and examined. He has lost significant weight with dialysis. His weight is down about 9kg. Peripheral edema has completely resolved. Examination he has audible entry in the lung bases. He subjectively reports feeling better however he still admits to dyspnea with exertion. He also continues to require oxygen supplementation. Given his significant volume loss with dialysis over the weekend there is concern that his ongoing symptoms may be of cardiac etiology rather than purely volume related. Unfortunately he known coronary artery disease not amenable to revascularization. We'll continue to optimize medical therapy as directed by the cardiology service. We'll continue with dialysis in the inpatient setting until he is deemed optimal for discharge and outpatient hemodialysis. He remains on diuretic therapy with Lasix for now.
[2017-03-21] MEDS ORDERED: PLAVIX75 M1 PO (07:51)
--- NOTE | 2017-03-21 07:53 | Patient Discharge Instructions ---
Discharge Instructions General Discharge Information Special Instructions: Take Plavix as directed, stop taking Ticagrelor. Continue all your previous home medications. Follow up with your plastic mixer and speech therapy teacher for further evaluation. Schedule as appointment with your primary care provider in the near future. Acute Coronary Syndrome Inclusion Criteria At DC or during hospital stay patient has or had the following: ACS DIAGNOSIS No Discharge Core Measures Meds if any: Prescribed or Continued at Discharge Meds if any: NOT Prescribed or Continued at Discharge Congestive Heart Failure Inclusion Criteria At DC or during hospital stay patient has or had the following: CHF DIAGNOSIS Yes Discharge Core Measures Meds if any: Prescribed or Continued at Discharge SHERRELL/ARB for EF <40% No Meds if any: NOT Prescribed or Continued at Discharge No SHERRELL/ARB d/t Renal Failure/Azotemia Cerebrovascular accident Inclusion Criteria At DC or during hospital stay patient has or had the following: CVA/TIA Diagnosis No Discharge Core Measures Meds if any: Prescribed or Continued at Discharge Meds if any: NOT Prescribed or Continued at Discharge Venous thromboembolism Inclusion Criteria VTE Diagnosis No VTE Type NONE VTE Confirmed by (Test) NONE Discharge Core Measures - Per Current guidelines, there needs to be overlap - treatment for the first 5 days of Warfarin therapy. - If discharged on Warfarin prior to 5 days of - overlap therapy, the patient will need to be - assessed for post discharge needs including - *Post discharge parental anticoagulation - *Warfarin and/or parental anticoagulation education - *Follow up date to check INR post discharge At least 5 days overlap therapy as Inpatient No Meds if any: Prescribed or Continued at Discharge Note: Overlap Therapy is Warfarin and Anticoagulant Meds if any: NOT Prescribed or Continued at Discharge
--- NOTE | 2017-03-21 08:52 | PN- Nephrology ---
Assessment/Plan Assessment: Better with dialysis but still with signficant MORALES, not yet ready for discharge. Suggestion: UF 2 liters today with dialysis. Continue with ambulation/PT. Subjective Subjective: Patient seen on dialysis. He still gets SOB on exertion. No chest pain. Objective Vital Signs and I&Os Vital Signs Date Time Temp Pulse Resp B/P B/P Pulse O2 O2 Flow FiO2 Mean Ox Delivery Rate 03/21 0000 Nasal 3.0L Cannula 03/20 2338 97.9 86 20 124/70 96 Nasal Cannula 03/20 1635 98 Nasal 3.0L Cannula 03/20 1625 99.1 75 20 118/65 99 Nasal 3.0L Cannula 03/20 1540 99 Nasal 3.0L Cannula 03/20 1004 134/64 03/20 1003 134/64 03/20 0901 98 Nasal 3.0L Cannula 03/20 0851 94 Nasal 3.0L Cannula Intake & Output 03/21 1600 03/21 0400 03/20 1600 03/20 0400 03/19 1600 03/19 0400 Intake Total 100 100 880 200 500 400 Output Total 700 2250 450 150 Balance 100 100 180 -2050 50 250 Intake, Oral 100 100 880 200 500 400 Output, 2000 Dialysate Output, Urine 700 250 450 150 Patient 203 lb 205 lb 203 lb Weight Weight Standing Scale Chair scale Measurement Method Physical Exam: NAD VS as above Lungs: decreased breath sounds CV: no rub Abd: nontedner Exts: no edema Neuro A&O,no asterixis Current Medications: Current Medications Sig/Julissa Start time Last Medication Dose Route Stop Time Status Admin Acetaminophen 650 MG Q6P PRN 03/13 0700 AC 03/18 PO 2257 Al Hydroxide/Mg 30 ML .STK-MED ONE 03/20 2021 DC Hydroxide PO 03/20 2022 Al Hydroxide/Mg 30 ML Q4-6 PRN PRN 03/18 2200 AC 03/20 Hydroxide PO 2019 Albuterol Sulfate 3 ML BID 03/13 1000 AC 03/20 INH 1537 Albuterol Sulfate 2 PUF Q4-6 PRN PRN 03/13 0600 AC 03/14 INH 2139 Alprazolam 0.5 MG BID 03/20 220 DC PO 03/27 215 Alprazolam 0.5 MG BID 03/20 1515 AC 03/20 PO 03/27 1514 2114 Alprazolam 0.5 MG BID 03/13 1000 DC 03/19 PO 03/20 0959 2124 Aspirin Buffered 81 MG DAILY 03/13 1000 AC 03/20 PO 1003 Atorvastatin Calcium 80 MG 1700 03/13 1700 AC 03/20 PO 1604 Budesonide/ 2 PUF BID 03/13 1000 AC 03/20 Formoterol Fumarate INH 2115 Clopidogrel Bisulfate 75 MG DAILY 03/18 1000 AC 03/20 PO 1004 Folic Acid 1 MG DAILY 03/13 1000 AC 03/20 PO 1003 Furosemide 80 MG DAILY 03/20 1000 AC 03/20 PO 1003 Heparin Sodium 5,000 UNIT Q8 03/13 0658 AC 03/21 (Porcine) SC 06 Insulin Aspart 0 TIDAC 03/17 1700 AC 03/20 SC 1210 Insulin Detemir 15 UNITS BID 03/17 2200 AC 03/20 SC 211 Isosorbide 60 MG DAILY 03/13 1000 AC 03/20 Mononitrate PO 1003 Levothyroxine Sodium 0.2 MG DAILY AC 03/16 0700 AC 03/21 PO 0603 Metoprolol Tartrate 100 MG DAILY 03/13 1000 AC 03/20 PO 1004 Oxymetazoline HCl 2 SPRAY BID 03/13 2200 AC 03/20 DALIA 211 Ramelteon 8 MG AT BEDTIME 03/13 220 AC 03/20 PO 211 Senna 374 MG AT BEDTIME 03/14 2200 AC 03/20 PO 211 Sertraline HCl 100 MG DAILY 03/13 1000 AC 03/20 PO 1004 Sodium Chloride 2 SPRAY Q4P PRN 03/13 2130 AC 03/16 DALIA 1036 Trazodone HCl 150 MG AT BEDTIME 03/13 220 AC 03/20 PO 2112 Results Pertinent Lab Results: Laboratory Tests 03/20 03/19 03/19 0620 1413 0705 Chemistry Sodium (137 - 145 mmol/L) 136 L 140 Potassium (3.5 - 5.1 mmol/L) 4.3 3.9 Chloride (98 - 107 mmol/L) 97 L 99 Carbon Dioxide (22 - 30 mmol/L) 25 26 Anion Gap (5 - 16) 13 15 BUN (9 - 20 mg/dL) 23 H 34 H Creatinine (0.7 - 1.2 mg/dL) 3.3 H 3.7 H Estimated GFR (>60 ml/min) 19 L 17 L BUN/Creatinine Ratio (7 - 25 %) 7.0 9.2 Glucose (65 - 99 mg/dL) 207 H Calcium (8.4 - 10.2 mg/dL) 7.2 L Hematology CBC w Diff NO MAN DIFF REQ WBC (4.8 - 10.8 /CUMM) 6.7 RBC (4.70 - 6.10 /CUMM) 3.62 L Hgb (14.0 - 18.0 G/DL) 9.4 L Hct (42 - 52 %) 29.1 L MCV (80.0 - 94.0 FL) 80.5 MCH (27.0 - 31.0 PG) 25.9 L RDW (11.5 - 14.5 %) 15.0 H Plt Count (130 - 400 /CUMM) 274 MPV (7.4 - 10.4 FL) 7.4 Gran % (42.2 - 75.2 %) 72.4 Lymphocytes % (20.5 - 51.1 %) 13.1 L Monocytes % (1.7 - 9.3 %) 11.8 H Eosinophils % (0 - 5 %) 2.1 Basophils % (0.0 - 2.0 %) 0.6 Absolute Granulocytes (1.4 - 6.5 /CUMM) 4.9 Absolute Lymphocytes (1.2 - 3.4 /CUMM) 0.9 L Absolute Monocytes (0.10 - 0.60 /CUMM) 0.8 H Absolute Eosinophils (0.0 - 0.7 /CUMM) 0.1 Absolute Basophils (0.0 - 0.2 /CUMM) 0 PUBS MCHC (33.0 - 37.0 G/DL) 32.2 L 03/18 1315 Chemistry Sodium (137 - 145 mmol/L) 135 L Potassium (3.5 - 5.1 mmol/L) 4.2 Chloride (98 - 107 mmol/L) 94 L Carbon Dioxide (22 - 30 mmol/L) 27 Anion Gap (5 - 16) 14 BUN (9 - 20 mg/dL) 58 H Creatinine (0.7 - 1.2 mg/dL) 4.7 H Estimated GFR (>60 ml/min) 13 L BUN/Creatinine Ratio (7 - 25 %) 12.3 Hematology CBC w Diff NO MAN DIFF REQ WBC (4.8 - 10.8 /CUMM) 5.7 RBC (4.70 - 6.10 /CUMM) 3.57 L Hgb (14.0 - 18.0 G/DL) 9.4 L Hct (42 - 52 %) 28.6 L MCV (80.0 - 94.0 FL) 80.1 MCH (27.0 - 31.0 PG) 26.2 L RDW (11.5 - 14.5 %) 14.8 H Plt Count (130 - 400 /CUMM) 270 MPV (7.4 - 10.4 FL) 7.7 Gran % (42.2 - 75.2 %) 78.5 H Lymphocytes % (20.5 - 51.1 %) 8.2 L Monocytes % (1.7 - 9.3 %) 11.3 H Eosinophils % (0 - 5 %) 1.4 Basophils % (0.0 - 2.0 %) 0.6 Absolute Granulocytes (1.4 - 6.5 /CUMM) 4.5 Absolute Lymphocytes (1.2 - 3.4 /CUMM) 0.5 L Absolute Monocytes (0.10 - 0.60 /CUMM) 0.6 Absolute Eosinophils (0.0 - 0.7 /CUMM) 0.1 Absolute Basophils (0.0 - 0.2 /CUMM) 0 PUBS MCHC (33.0 - 37.0 G/DL) 32.7 L
[2017-03-21 09:26] LABS: ABSOLUTE BASOPHIL COUNT 0 /CUMM (0.0-0.2); ABSOLUTE EOSINOPHIL COUNT 0.2 /CUMM (0.0-0.7); ABSOLUTE GRANULOCYTE CT 3.6 /CUMM (1.4-6.5); ABSOLUTE LYMPH COUNT 1.2 /CUMM (1.2-3.4); ABSOLUTE MONOCYTE COUNT 0.6 /CUMM (0.10-0.60); BASOPHIL % 0.6 % (0.0-2.0); EOSINOPHIL % 3.4 % (0-5); GRANULOCYTE % 64.2 % (42.2-75.2); MEAN CORPUSCULAR HGB 26.4 PG (27.0-31.0); MEAN CORPUSCULAR HGB CONC 33.3 G/DL (33.0-37.0); MEAN PLATELET VOLUME 7.5 FL (7.4-10.4); PLATELET COUNT 244 /CUMM (130-400); RBC DISTRIBUTION WIDTH 14.4 % (11.5-14.5); RED BLOOD CELL CT 3.55 /CUMM (4.70-6.10); WHITE BLOOD CELL COUNT 5.7 /CUMM (4.8-10.8)
--- NOTE | 2017-03-21 09:49 | NUR ---
janae working with Sana at [facility] to obtain a outpt slot for pt . Pt EKG is in his hard chart and when he is done with dialysis Janae will send, completing record for slot. Sana will report slot and note it in sw record and report to cm.
--- NOTE | 2017-03-21 11:15 | PN- Cardiology ---
Subjective Subjective: The patient is seen on dialysis. He reports that he is feeling better. Shortness of breath is improving. No chest pain. No diaphoresis. No palpitations. Objective Vital Signs and I&Os Vital Signs Date Time Temp Pulse Resp B/P B/P Pulse O2 O2 Flow FiO2 Mean Ox Delivery Rate 03/21 0845 Nasal 4.0L Cannula 03/21 0800 Nasal 3.0L Cannula 03/21 0000 Nasal 3.0L Cannula 03/20 2338 97.9 86 20 124/70 96 Nasal Cannula 03/20 1635 98 Nasal 3.0L Cannula 03/20 1625 99.1 75 20 118/65 99 Nasal 3.0L Cannula 03/20 1540 99 Nasal 3.0L Cannula Intake & Output 03/21 1600 03/21 0800 03/21 0000 03/20 1600 03/20 0800 03/20 0000 Intake Total 100 100 400 480 200 Output Total 321 259 2034 Balance 100 100 -50 230 -2050 Intake, Oral 100 100 400 480 200 Output, 2000 Dialysate Output, Urine 450 250 250 Patient 203 lb Weight Weight Standing Scale Measurement Method Physical Exam: Gen: NAD HEENT: normal Lungs: Scattered rales bilaterally, normal resp. effort Heart: RRR, S1, S2, no murmurs Abdomen: Soft, nontender, no masses Extremities: 2+ edema Neuro: Alert and oriented x 3, cranial nerves intact Current Medications: Current Medications Sig/Julissa Start time Last Medication Dose Route Stop Time Status Admin Acetaminophen 650 MG Q6P PRN 03/13 0700 AC 03/18 PO 2257 Al Hydroxide/Mg 30 ML .STK-MED ONE 03/20 2021 DC Hydroxide PO 03/20 2022 Al Hydroxide/Mg 30 ML Q4-6 PRN PRN 03/18 2200 AC 03/20 Hydroxide PO 2019 Albuterol Sulfate 3 ML BID 03/13 1000 AC 03/20 INH 1537 Albuterol Sulfate 2 PUF Q4-6 PRN PRN 03/13 0600 AC 03/14 INH 2139 Alprazolam 0.5 MG BID 03/20 220 DC PO 03/27 215 Alprazolam 0.5 MG BID 03/20 1515 AC 03/20 PO 03/27 151 2114 Aspirin Buffered 81 MG DAILY 03/13 1000 AC 03/20 PO 1003 Atorvastatin Calcium 80 MG 1700 03/13 1700 AC 03/20 PO 1604 Budesonide/ 2 PUF BID 03/13 1000 AC 03/20 Formoterol Fumarate INH 2115 Clopidogrel Bisulfate 75 MG DAILY 03/18 1000 AC 03/20 PO 1004 Folic Acid 1 MG DAILY 03/13 1000 AC 03/20 PO 1003 Furosemide 80 MG DAILY 03/20 1000 AC 03/20 PO 1003 Heparin Sodium 5,000 UNIT Q8 03/13 0658 AC 03/21 (Porcine) SC 06 Insulin Aspart 0 TIDAC 03/17 1700 AC 03/20 SC 1210 Insulin Detemir 15 UNITS BID 03/17 2200 AC 03/20 SC 2113 Isosorbide 60 MG DAILY 03/13 1000 AC 03/20 Mononitrate PO 1003 Levothyroxine Sodium 0.2 MG DAILY AC 03/16 0700 AC 03/21 PO 0603 Metoprolol Tartrate 100 MG DAILY 03/13 1000 AC 03/20 PO 1004 Oxymetazoline HCl 2 SPRAY BID 03/13 2200 AC 03/20 DALIA 2113 Ramelteon 8 MG AT BEDTIME 03/13 2200 AC 03/20 PO 2114 Senna 374 MG AT BEDTIME 05 2200 AC 03/20 PO 2115 Sertraline HCl 100 MG DAILY 03/13 1000 AC 03/20 PO 1004 Sodium Chloride 2 SPRAY Q4P PRN 03/13 2130 AC 03/16 DALIA 1036 Trazodone HCl 150 MG AT BEDTIME 04 2200 AC 03/20 PO 211 Results Last 48 Hrs of Labs/Mics: Laboratory Tests 03/21/17 0835: Anion Gap 12, Estimated GFR 14 L, BUN/Creatinine Ratio 9.5, CBC w Diff NO MAN DIFF REQ, RBC 3.55 L, MCV 79.0 L, MCH 26.4 L, RDW 14.4, MPV 7.5, Gran % 64.2, Lymphocytes % 20.5, Monocytes % 11.3 H, Eosinophils % 3.4, Basophils % 0.6, Absolute Granulocytes 3.6, Absolute Lymphocytes 1.2, Absolute Monocytes 0.6, Absolute Eosinophils 0.2, Absolute Basophils 0, PUBS MCHC 33.3 03/20/17 0620: Anion Gap 13, Estimated GFR 19 L, BUN/Creatinine Ratio 7.0 03/19/17 1413: Glucose 207 H, Calcium 7.2 L, CBC w Diff NO MAN DIFF REQ, RBC 3.62 L, MCV 80.5, MCH 25.9 L, RDW 15.0 H, MPV 7.4, Gran % 72.4, Lymphocytes % 13.1 L, Monocytes % 11.8 H, Eosinophils % 2.1, Basophils % 0.6, Absolute Granulocytes 4.9, Absolute Lymphocytes 0.9 L, Absolute Monocytes 0.8 H, Absolute Eosinophils 0.1, Absolute Basophils 0, PUBS MCHC 32.2 L Recent Imaging Studies: Chest x-ray 03/19/17: 1. Cardiomegaly without acute pulmonary edema. 2. Small pleural effusions and bibasilar atelectasis. Assessment/Plan Assessment/Plan Assessment: 1. CAD 2. Diabetes mellitus 3. Chronic kidney disease, stage V 4. Acute HFpEF, improving with dialysis Plan: * Dialysis as per nephrology * Continue by mouth Lasix. * Check basic metabolic profile daily Continue telemetry? Yes
--- NOTE | 2017-03-21 11:53 | NUR ---
PHYSICAL THERAPY: ATTMEPTED TO SEE Pt THIS A.M.; Pt OFF THE FLOOR AT DIALYSIS. WILL F/U ABLE UPON RETURN TO FLOOR.
--- NOTE | 2017-03-21 13:23 | NUR ---
PHYSICAL THERAPY: ATTEMPTED TO SEE Pt UPON ARRIVAL BACK TO ROOM, Pt SEATED EDGE OF BED, VOMITTING. PER RN, Pt NAUSEA AND VOMITTING SINCE DIALYSIS, AWAITING MD CONSULT. WILL DEFER P.T. AT THIS TIME; F/U APPROPRIATE.
[2017-03-21 16:07] VITALS: BP 169/61
[2017-03-22 00:08] VITALS: BP 110/60
[2017-03-22 00:17] VITALS: BP 110/60
--- NOTE | 2017-03-22 07:10 | PN- Housestaff ---
JAIRO PEÑA MD 03/22/17 0710: Subjective Follow-up For: Acute on chronic CHF CKD Stage V Tele-Events Since Last Visit: Gen Med Hold Subjective: Patient seen and examined. He is seen sitting upright in his chair at bedside not wearing any supplemental oxygen. He appears to be in no acute distress. He admits to a long lasting episode of nausea with nonbloody, bilious vomiting and heart burn for several hours that started during hemodialysis. His symptoms resolved with maalox and with eating. He otherwise felt well and slept comfortably. He is breathing well on room air today and saturating adequately, he is on 2.0L baseline oxygen at home. He denies any new subjective complaints. Additionally he denies any headache, fever, chills, chest pain, palpitations, shortness of breath, nausea, vomiting, diarrhea. Review of Systems Constitutional: Reports: see HPI. Objective Last 24 Hrs of Vital Signs/I&O Vital Signs Date Time Temp Pulse Resp B/P B/P Pulse O2 O2 Flow FiO2 Mean Ox Delivery Rate 03/22 0825 98.5 80 20 118/62 92 03/22 0017 99.3 76 18 110/60 95 Room Air 03/22 0008 99.3 76 18 110/60 95 Room Air 03/22 0000 Room Air 03/21 1930 98 Room Air 03/21 1607 99.1 78 16 169/61 100 Nasal 3.0L Cannula 03/21 1600 97 Room Air 03/21 1410 86 163/73 03/21 1409 80 163/93 Intake & Output 03/22 1600 03/22 0800 03/22 0000 Intake Total 240 420 Output Total Balance 240 420 Intake, IV 20 Intake, Oral 240 400 Number 0 Bowel Movements Patient 91.399 kg Weight Weight Standing Scale Measurement Method Physical Exam General Appearance: Alert, Oriented X3, Cooperative, No Acute Distress Other Physical Findings: General- well developed, obese middle aged man in mild distress HEENT- NCAT, PERRL, EOMI, anicteric sclera, moist mucous membranes Neck- Supple, no JVD Chest- S1, S2 w/o m/g/r; RRR, Bao-cath in place without any surrounding erythema /drainage/induration Resp- CTA bilaterally GI- Soft, obese, nontender, nondistended, bowel sounds intact Neuro- Awake and alert, CN II - XII grossly intact Ext- normal pulses, no cyanosis/clubbing/edema Current Medications: Current Medications Sig/Julissa Start time Last Medication Dose Route Stop Time Status Admin Acetaminophen 650 MG Q6P PRN 03/13 0700 AC 06 PO 2257 Al Hydroxide/Mg 30 ML .STK-MED ONE 03/21 1602 DC Hydroxide PO 03/21 1603 Al Hydroxide/Mg 30 ML ONCE ONE 03/21 1330 DC 06 Hydroxide PO 03/21 1331 1401 Al Hydroxide/Mg 30 ML Q4-6 PRN PRN 03/18 2200 AC 03/21 Hydroxide PO 1603 Albuterol Sulfate 3 ML BID / 1000 AC 03/20 INH 1537 Albuterol Sulfate 2 PUF Q4-6 PRN PRN 03/13 0600 AC 03/14 INH 2139 Alprazolam 0.5 MG BID 03/20 1515 AC 03/21 PO 03/27 1514 2216 Aspirin Buffered 81 MG DAILY / 1000 AC 03/21 PO 1411 Atorvastatin Calcium 80 MG 1700 06/04 1700 AC 03/21 PO 1801 Budesonide/ 2 PUF BID / 1000 AC 03/21 Formoterol Fumarate INH 2217 Clopidogrel Bisulfate 75 MG DAILY / 1000 AC 03/21 PO 1410 Folic Acid 1 MG DAILY /04 1000 AC 03/21 PO 1409 Furosemide 80 MG DAILY 03/20 1000 AC 03/21 PO 1401 Heparin Sodium 5,000 UNIT Q8 / 0658 AC 03/22 (Porcine) SC 0611 Insulin Aspart 0 TIDAC 03/17 1700 AC 03/21 SC 1803 Insulin Detemir 15 UNITS BID 03/17 2200 AC 03/21 SC 2218 Isosorbide 60 MG DAILY / 1000 AC 03/21 Mononitrate PO 1410 Levothyroxine Sodium 0.2 MG DAILY AC 03/16 0700 AC 03/22 PO 0611 Magnesium Hydroxide 30 ML .STK-MED ONE 03/21 1359 DC PO 03/21 1400 Metoprolol Tartrate 100 MG DAILY /04 1000 AC 03/21 PO 1409 Ondansetron HCl 4 MG Q6P PRN 03/21 1600 DC 03/21 IV 1603 Oxymetazoline HCl 2 SPRAY BID 03/13 2200 AC 03/20 DALIA 2113 Pantoprazole Sodium 40 MG DAILY 03/21 1815 AC 03/21 IV 1931 Ramelteon 8 MG AT BEDTIME 03/13 2200 AC / PO 2217 Senna 374 MG AT BEDTIME /05 2200 AC / PO 2217 Sertraline HCl 100 MG DAILY 03/13 1000 AC / PO 1402 Sodium Chloride 2 SPRAY Q4P PRN 03/13 2130 AC 06/07 DALIA 1036 Trazodone HCl 150 MG AT BEDTIME 03/13 2200 AC 03/21 PO 2216 Assessment/Plan Assessment: Patient is markedly clinically improved today after several session of hemodialysis in the previous days. His lower extremity swelling has long since improved. He is to receive dialysis tomororw and is anticipated to be dishcarged to home. Nephro vitamins started. Follow up iron studies and phosphorus. Confirm with Nephrology the need for lasix on discharge and any dose adjustments. Acute Systolic Congestive Heart Failure / Atrial Flutter / CKD V / CAD / HLD Patient with extesive cardiac history seen for evaluation of chest pain and shortness of breath. Patient of tube drawer Dr. Lee. -Telemetry -Daily weights, strict ins & outs -Lasix 80mg PO Daily -Aspirin 81mg PO Daily -Atorvastatin 80mg PO Daily -Metoprolol 100mg PO Daily -Plavix 75mg PO Daily -Imdur 60mg PO Daily -Nepho-vitamins -Venofer 200mg IV Daily, x5 doses -Cardiology consult, following -Nephrology consult, following Chronic Obstructive Pulmonary Disease / Chronic Hypoxic Respiratory Failure -TRC with albuterol/ipratropoum PRN -Supplemental oxygen, taper as tolerated, 2.0L baseline -Symbicort Insulin-dependent Diabetes Mellitus -Accuchecks TIDAC/HS -Hold oral hypoglycemics -Novolog SSI -Levemir 15 Units SC BID Anxiety / Depression -Sertraline 100mg PO Daily -Alprazolam 0.5mg PO BID Hypothyroidism-Levothyroixine 200mcg PO Daily Pain Plan-Acetaminophen Bowel Regimen-Senna Insomnia-Ramelteon / Trazodone Diet- CHF Diet DVT PPx- Subcutaneous Heparin Code Status- FULL CODE Problem List: 1. CHF (congestive heart failure) 2. CKD (chronic kidney disease), stage V Pain Ratin Pain Location: None Pain Goal: Remain pain free Pain Plan: See assessment Tomorrow's Labs & Rationales: Labs with hemodialysis Consulting Request: Consulting Specialty: Thoracic/Vascular Surgery DENICE SMITH MDJAZMYNESharon 03/22/17 1127: Attending MD Review Statement Attending Statement Attending MD Statement: examined this patient, discuss w/resident/PA/PRODUCTION OPERATOR, agreed w/resident/PA/PRODUCTION OPERATOR, discussed with family, reviewed EMR data (avail), discussed with nursing, discussed with case mgmt, amended to note Attending Assessment/Plan: Patient seen and examined. Resting comfortably and not in any acute distress. He feels much better today. He continues to lose weight with dialysis. He has been weaned off oxygen supplementation. Lungs are clear to auscultation bilaterally. He has no peripheral edema. He is looking for to ambulating around the nursing unit today. Recommendations: -Follow-up with the nephrology service regarding need for ongoing diuretic therapy. Patient's urine output daily is about 700 mL. -A recommendations are to discontinue Lasix we will consider resuming his amlodipine for blood pressure control. Currently he has been doing well off amlodipine. -Patient is medically stable to be discharged once cleared by the nephrology service. He'll be [facility] [place] a [place] [facility] for [facility]-term rehabilitation due to his deconditioning. He has been downgraded to general medical service.
[2017-03-22 08:25] VITALS: BP 118/62
--- NOTE | 2017-03-22 09:34 | PN- Cardiology ---
[facility] 03/22/17 0933: Subjective Subjective: Patient seen and examined, he reports that he feels great today, he slept comfortably at night, he denies any shortness of breath, chest pain, heart racing, no fever, chills, and there is no change in bowel habits. He reports that after he lost a lot amount of fluid he feels some pain in his bilateral foot when he walk. He reported that he still produces clear phlegm when he cough. Vitals stable He is in negative fluid balance, his weight is a stable 202Ib, yesterday 203Ib. Review of Systems Constitutional: Reports: no symptoms. EENTM: Reports: no symptoms. Cardiovascular: Reports: no symptoms. Respiratory: Reports: no symptoms. Gastrointestinal: Reports: no symptoms. Genitourinary: Reports: no symptoms. Musculoskeletal: Reports: see HPI. Skin: Reports: no symptoms. Neurological/Psychological: Reports: no symptoms. Hematologic/Endocrine: Reports: no symptoms. Immunologic/Allergic: Reports: no symptoms. All Other Systems: Reviewed and Negative Objective Vital Signs and I&Os Vital Signs Date Time Temp Pulse Resp B/P B/P Pulse O2 O2 Flow FiO2 Mean Ox Delivery Rate 03/22 0854 95 Nasal 3.0L Cannula 03/22 0825 98.5 80 20 118/62 92 03/22 0017 99.3 76 18 110/60 95 Room Air 03/22 0008 99.3 76 18 110/60 95 Room Air 03/22 0000 Room Air 03/21 1930 98 Room Air 03/21 1607 99.1 78 16 169/61 100 Nasal 3.0L Cannula 03/21 1600 97 Room Air 03/21 1410 86 163/73 03/21 1409 80 163/93 Intake & Output 03/22 1600 03/22 0800 03/22 0000 03/21 1600 03/21 0800 03/21 0000 Intake Total 240 420 240 100 100 Output Total 1999 Balance 240 420 -1760 100 100 Intake, IV 20 Intake, Oral 240 400 240 100 100 Number 0 Bowel Movements Output, 1999 Dialysate Patient 202 lb 203 lb Weight Weight Standing Scale Standing Scale Measurement Method Physical Exam General Appearance: well developed/nourished, no apparent distress, alert, awake , comfortable Head: atraumatic, normal appearance Neck: normal inspection, supple, full range of motion Respiratory: normal breath sounds, no respiratory distress, decrease breath sound at the bases Cardiovascular: regular rate/rhythm, normal peripheral pulses Peripheral Pulses: 3+ dorsalis pedis (R), 3+ dorsalis pedis (L) Abdomen: normal bowel sounds, soft, non-tender Extremities: normal inspection, normal capillary refill, normal range of motion, no edema Current Medications: Current Medications Sig/Julissa Start time Last Medication Dose Route Stop Time Status Admin Acetaminophen 650 MG Q6P PRN 03/13 0700 AC 03/18 PO 2257 Al Hydroxide/Mg 30 ML .STK-MED ONE 03/21 1602 DC Hydroxide PO 03/21 1603 Al Hydroxide/Mg 30 ML ONCE ONE 03/21 1330 DC 03/21 Hydroxide PO 03/21 1331 1401 Al Hydroxide/Mg 30 ML Q4-6 PRN PRN 03/18 2200 AC 03/21 Hydroxide PO 1603 Albuterol Sulfate 3 ML BID / 1000 AC 03/20 INH 1537 Albuterol Sulfate 2 PUF Q4-6 PRN PRN 03/13 0600 AC 03/14 INH 2139 Alprazolam 0.5 MG BID 03/20 1515 AC 03/21 PO 03/27 1514 2216 Aspirin Buffered 81 MG DAILY / 1000 AC 03/21 PO 1411 Atorvastatin Calcium 80 MG 1700 03/13 1700 AC 03/21 PO 1801 Budesonide/ 2 PUF BID / 1000 AC 03/21 Formoterol Fumarate INH 2217 Clopidogrel Bisulfate 75 MG DAILY 03/18 1000 AC 03/21 PO 1410 Folic Acid 1 MG DAILY / 1000 AC 03/21 PO 1409 Furosemide 80 MG DAILY 03/20 1000 AC 03/21 PO 1401 Heparin Sodium 5,000 UNIT Q8 / 0658 AC 03/22 (Porcine) SC 0611 Insulin Aspart 0 TIDAC 03/17 1700 AC 03/21 SC 1803 Insulin Detemir 15 UNITS BID 03/17 2200 AC 03/21 SC 2218 Isosorbide 60 MG DAILY / 1000 AC 03/21 Mononitrate PO 1410 Levothyroxine Sodium 0.2 MG DAILY AC 03/16 0700 AC 03/22 PO 0611 Magnesium Hydroxide 30 ML .STK-MED ONE 03/21 1359 DC PO 03/21 1400 Metoprolol Tartrate 100 MG DAILY 03/13 1000 AC 03/21 PO 1409 Ondansetron HCl 4 MG Q6P PRN 03/21 1600 DC 03/21 IV 1603 Oxymetazoline HCl 2 SPRAY BID 03/13 220 AC 03/20 DALIA 2113 Pantoprazole Sodium 40 MG DAILY 03/21 1815 AC 03/21 IV 1931 Ramelteon 8 MG AT BEDTIME 03/13 2200 AC 03/21 PO 2217 Senna 374 MG AT BEDTIME 03/14 2200 AC 03/21 PO 2217 Sertraline HCl 100 MG DAILY 03/13 1000 AC 03/21 PO 1402 Sodium Chloride 2 SPRAY Q4P PRN 03/13 2130 AC 03/16 DALIA 1036 Trazodone HCl 150 MG AT BEDTIME 03/13 220 AC 03/21 PO 2216 Results Last 48 Hrs of Labs/Mics: Laboratory Tests 03/21/17 0835: Anion Gap 12, Estimated GFR 14 L, BUN/Creatinine Ratio 9.5, Troponin I 0.13 *H, CBC w Diff NO MAN DIFF REQ, RBC 3.55 L, MCV 79.0 L, MCH 26.4 L, RDW 14.4, MPV 7.5, Gran % 64.2, Lymphocytes % 20.5, Monocytes % 11.3 H, Eosinophils % 3.4, Basophils % 0.6, Absolute Granulocytes 3.6, Absolute Lymphocytes 1.2, Absolute Monocytes 0.6, Absolute Eosinophils 0.2, Absolute Basophils 0, PUBS MCHC 33.3 Recent Imaging Studies: CXR on 03/22/2017: 1. Cardiomegaly without acute pulmonary edema. 2. Small pleural effusions and bibasilar atelectasis. Assessment/Plan Assessment/Plan 67-year-old male with a past medical history of coronary artery disease status post stent placements, insulin-dependent diabetes mellitus, peripheral neuropathy, hyperlipidemia, CK D stage V status post left-sided fistula placed by nephrology prior to coming to the ED presented with chief complaint of inability to sleep because of chest pressure on lying down and shortness of breath. Admitted to telemetry floor to manage acute on chronic HFpEF, chronic kidney disease stage V, demand ischemia from volume overload. Currently patient is status post dialysis cath placement and he got 3 dialysis. Assessment; #CAD #Chronic kidney disease, stage V, status post dialysis cath placement (he already got 3 dialysis) #Acute HFpEF improving #History of diabetes Plan; * Continue by mouth Lasix 80 mg daily * Continue other cardiac medication which includes: Atorvastatin 80 mg by mouth daily, metoprolol 100 mg by mouth daily, Plavix 75 mg by mouth daily, Imdur 60 mg by mouth daily and aspirin 81 mg daily. * Check BEP every day * Strict I's and O's and daily weights * Dialysis as per nephrology, Creainine today is 4.3 * PT DVT prophylaxis Full code Continue telemetry? Yes Problem List: 1. CKD (chronic kidney disease), stage V 2. Acute on chronic diastolic (congestive) heart failure MARIA GUADALUPE KAHN MD 03/22/17 1045: Attending MD Review Statement Attending Statement Attending MD Statement: examined this patient, discuss w/resident/PA/WARP DRAWER, agreed w/resident/PA/WARP DRAWER, discussed with family, reviewed EMR data (avail), discussed w/ nursing, reviewed images, amended to note Attending Assessment/Plan: The patient is feeling better. No chest pain. No palpitations. No shortness of breath. No diaphoresis. Laboratory Tests 03/21 0835 Chemistry Sodium (137 - 145 mmol/L) 133 L Potassium (3.5 - 5.1 mmol/L) 4.1 Chloride (98 - 107 mmol/L) 95 L Carbon Dioxide (22 - 30 mmol/L) 26 Anion Gap (5 - 16) 12 BUN (9 - 20 mg/dL) 41 H Creatinine (0.7 - 1.2 mg/dL) 4.3 H Estimated GFR (>60 ml/min) 14 L BUN/Creatinine Ratio (7 - 25 %) 9.5 Troponin I (<0.11 ng/ml) 0.13 *H Hematology CBC w Diff NO MAN DIFF REQ WBC (4.8 - 10.8 /CUMM) 5.7 RBC (4.70 - 6.10 /CUMM) 3.55 L Hgb (14.0 - 18.0 G/DL) 9.3 L Hct (42 - 52 %) 28.0 L MCV (80.0 - 94.0 FL) 79.0 L MCH (27.0 - 31.0 PG) 26.4 L RDW (11.5 - 14.5 %) 14.4 Plt Count (130 - 400 /CUMM) 244 MPV (7.4 - 10.4 FL) 7.5 Gran % (42.2 - 75.2 %) 64.2 Lymphocytes % (20.5 - 51.1 %) 20.5 Monocytes % (1.7 - 9.3 %) 11.3 H Eosinophils % (0 - 5 %) 3.4 Basophils % (0.0 - 2.0 %) 0.6 Absolute Granulocytes (1.4 - 6.5 /CUMM) 3.6 Absolute Lymphocytes (1.2 - 3.4 /CUMM) 1.2 Absolute Monocytes (0.10 - 0.60 /CUMM) 0.6 Absolute Eosinophils (0.0 - 0.7 /CUMM) 0.2 Absolute Basophils (0.0 - 0.2 /CUMM) 0 PUBS MCHC (33.0 - 37.0 G/DL) 33.3 Vital Signs Date Time Temp Pulse Resp B/P B/P Pulse O2 O2 Flow FiO2 Mean Ox Delivery Rate 03/22 1014 120/62 03/22 1014 120/62 03/22 0854 95 Nasal 3.0L Cannula 03/22 0825 98.5 80 20 118/62 92 03/22 0017 99.3 76 18 110/60 95 Room Air 03/22 0008 99.3 76 18 110/60 95 Room Air 03/22 0000 Room Air 03/21 1930 98 Room Air 03/21 1607 99.1 78 16 169/61 100 Nasal 3.0L Cannula 03/21 1600 97 Room Air 03/21 1410 86 163/73 03/21 1409 80 163/93 Physical Exam: Gen: NAD HEENT: normal Lungs: Scattered rales bilaterally, normal resp. effort Heart: RRR, S1, S2, no murmurs Abdomen: Soft, nontender, no masses Extremities: 2+ edema Neuro: Alert and oriented x 3, cranial nerves intact Assessment: 1. CAD 2. Diabetes mellitus 3. Chronic kidney disease, stage V 4. Acute HFpEF, improving with dialysis Plan: * Dialysis as per nephrology * Continue by mouth Lasix. * Check basic metabolic profile daily
[2017-03-22 12:49] VITALS: BP 112/70
--- NOTE | 2017-03-22 12:59 | NUR ---
PT ARRIVED TO FLOOR FROM 1NO VIA STRETCHER. VSS. pt stated he ate lunch but sugar had not been checked. will check sugar and update provider on reason if it is high. NO C/O CP OR SOB. NON-SKID SOCKS PROVIDED. SAFETY MAINTAINED. CALL LIGHT IN REACH.
--- NOTE | 2017-03-22 14:26 | PN- Nephrology ---
Assessment/Plan Assessment: 1. 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 Congestive heart failure, improved and negative enzymes 3. Elevated troponin levels consistent with non-ST elevation [place] versus demand ischemia. 4. Anemia Suggestion: 1. Will arrange for hemodialysis tomorrow and can then be discharged after treatment to short-term rehabilitation 2. Patient has an outpatient dialysis slot at [facility] for 03/24 at 2 PM 3. Please check serum phosphorus level and iron stores in anticipation of possible need for a phosphate binder and an KATHARINE 4. Begin Nephro-Khanh 1 daily Subjective Subjective: Patient states that he "feels great" without any shortness of breath or pain. He was dialyzed uneventfully yesterday and has an outpatient slot for at 2 PM at [facility]. Objective Vital Signs and I&Os Vital Signs Date Time Temp Pulse Resp B/P B/P Pulse O2 O2 Flow FiO2 Mean Ox Delivery Rate 03/22 1249 98.2 75 18 112/70 92 Room Air 03/22 1054 91 Room Air 03/22 1014 120/62 03/22 1014 120/62 03/22 0854 95 Nasal 3.0L Cannula 03/22 0825 98.5 80 20 118/62 92 03/22 0017 99.3 76 18 110/60 95 Room Air 03/22 0008 99.3 76 18 110/60 95 Room Air 03/22 0000 Room Air 03/21 1930 98 Room Air 03/21 1607 99.1 78 16 169/61 100 Nasal 3.0L Cannula 03/21 1600 97 Room Air Intake & Output 03/22 1600 03/22 0400 03/21 1600 03/21 0400 03/20 1600 03/20 0400 Intake Total 240 420 340 100 880 200 Output Total 1999 700 2250 Balance 240 420 -1660 100 180 -2050 Intake, IV 20 Intake, Oral 240 400 340 100 880 200 Number 0 Bowel Movements Output, 1999 1999 Dialysate Output, Urine 700 250 Patient 202 lb 203 lb Weight Weight Standing Scale Standing Scale Measurement Method Physical Exam: General: Well-developed white male in no acute distress Skin: No rash or jaundice HEENT: Conjunctivae pink, sclerae anicteric, mucous membranes moist Chest: Clear with diminished breath sounds in general and especially at bases Heart: Regular rate and rhythm without S3 or rub Abdomen: Soft and nontender Extremities: Without cyanosis or edema; the left upper arm AVF is patent Neuro: No asterixis or myoclonus Current Medications: Current Medications Sig/Julissa Start time Last Medication Dose Route Stop Time Status Admin Acetaminophen 650 MG Q6P PRN 06/ 0700 AC 03/18 PO 2257 Al Hydroxide/Mg 30 ML .STK-MED ONE 03/21 1602 DC Hydroxide PO 03/21 1603 Al Hydroxide/Mg 30 ML Q4-6 PRN PRN 03/18 2200 AC 03/21 Hydroxide PO 1603 Albuterol Sulfate 3 ML BID / 1000 AC 03/22 INH 1044 Albuterol Sulfate 2 PUF Q4-6 PRN PRN 03/13 0600 AC 03/14 INH 2139 Alprazolam 0.5 MG BID 03/20 1515 AC 03/22 PO 03/27 1514 1014 Aspirin Buffered 81 MG DAILY / 1000 AC 03/22 PO 1014 Atorvastatin Calcium 80 MG 1700 03/13 1700 AC 03/21 PO 1801 Budesonide/ 2 PUF BID / 1000 AC 03/22 Formoterol Fumarate INH 1017 Clopidogrel Bisulfate 75 MG DAILY 03/18 1000 AC 03/22 PO 1015 Folic Acid 1 MG DAILY / 1000 AC 03/22 PO 1014 Furosemide 80 MG DAILY 03/20 1000 AC 03/22 PO 1014 Heparin Sodium 5,000 UNIT Q8 / 0658 AC 03/22 (Porcine) SC 1334 Insulin Aspart 0 TIDAC 03/17 1700 AC 03/22 SC 1209 Insulin Detemir 15 UNITS BID 03/17 2200 AC 03/22 SC 1015 Isosorbide 60 MG DAILY / 1000 AC 03/22 Mononitrate PO 1014 Levothyroxine Sodium 0.2 MG DAILY AC 03/16 0700 AC 03/22 PO 0611 Metoprolol Tartrate 100 MG DAILY 03/13 1000 AC 03/22 PO 1014 Ondansetron HCl 4 MG Q6P PRN 03/21 1600 DC 03/21 IV 1603 Oxymetazoline HCl 2 SPRAY BID 03/13 2200 AC 03/22 DALIA 1017 Pantoprazole Sodium 40 MG DAILY@03/22 2000 AC IV Pantoprazole Sodium 40 MG DAILY 03/21 1815 DC 03/21 IV 1931 Patient Medication 1 ED .STK-MED ONE 03/22 1406 [facility] ED 03/22 1407 Ramelteon 8 MG AT BEDTIME / 2200 AC / PO 2217 Senna 374 MG AT BEDTIME 03/14 2200 AC 03/21 PO 2217 Sertraline HCl 100 MG DAILY 03/13 1000 AC 03/22 PO 1017 Sodium Chloride 2 SPRAY Q4P PRN 03/13 2130 AC 03/16 DALIA 1036 Trazodone HCl 150 MG AT BEDTIME 03/13 2200 AC 03/21 PO 2216 Results Pertinent Lab Results: Laboratory Tests 03/21 03/20 0835 0620 Chemistry Sodium (137 - 145 mmol/L) 133 L 136 L Potassium (3.5 - 5.1 mmol/L) 4.1 4.3 Chloride (98 - 107 mmol/L) 95 L 97 L Carbon Dioxide (22 - 30 mmol/L) 26 25 Anion Gap (5 - 16) 12 13 BUN (9 - 20 mg/dL) 41 H 23 H Creatinine (0.7 - 1.2 mg/dL) 4.3 H 3.3 H Estimated GFR (>60 ml/min) 14 L 19 L BUN/Creatinine Ratio (7 - 25 %) 9.5 7.0 Troponin I (<0.11 ng/ml) 0.13 *H Hematology CBC w Diff NO MAN DIFF REQ WBC (4.8 - 10.8 /CUMM) 5.7 RBC (4.70 - 6.10 /CUMM) 3.55 L Hgb (14.0 - 18.0 G/DL) 9.3 L Hct (42 - 52 %) 28.0 L MCV (80.0 - 94.0 FL) 79.0 L MCH (27.0 - 31.0 PG) 26.4 L RDW (11.5 - 14.5 %) 14.4 Plt Count (130 - 400 /CUMM) 244 MPV (7.4 - 10.4 FL) 7.5 Gran % (42.2 - 75.2 %) 64.2 Lymphocytes % (20.5 - 51.1 %) 20.5 Monocytes % (1.7 - 9.3 %) 11.3 H Eosinophils % (0 - 5 %) 3.4 Basophils % (0.0 - 2.0 %) 0.6 Absolute Granulocytes (1.4 - 6.5 /CUMM) 3.6 Absolute Lymphocytes (1.2 - 3.4 /CUMM) 1.2 Absolute Monocytes (0.10 - 0.60 /CUMM) 0.6 Absolute Eosinophils (0.0 - 0.7 /CUMM) 0.2 Absolute Basophils (0.0 - 0.2 /CUMM) 0 PUBS MCHC (33.0 - 37.0 G/DL) 33.3
[2017-03-22 15:07] VITALS: BP 110/70
[2017-03-22 22:24] VITALS: BP 118/68
[2017-03-23 06:00] VITALS: BP 110/60
--- NOTE | 2017-03-23 07:26 | PN- Housestaff ---
See Addendum Subjective Follow-up For: Acute on chronic CHF CKD Stage V Subjective: Patient seen and examined this morning. He is resting comfortably in chair with no acute complaints. Denies shortness of breath, chest pain, palpitations, headache, fever, chills, c/d/n/v. No events reported overnight. Review of Systems Constitutional: Reports: see HPI. Objective Last 24 Hrs of Vital Signs/I&O Vital Signs Date Time Temp Pulse Resp B/P B/P Pulse O2 O2 Flow FiO2 Mean Ox Delivery Rate 03/23 0600 98.1 74 18 110/60 93 Room Air 03/22 2224 99.6 89 19 118/68 93 Room Air 03/22 1955 Room Air 03/22 1530 Nasal 2.0L Cannula 03/22 1507 98.4 72 18 110/70 92 Room Air 03/22 1249 98.2 75 18 112/70 92 Room Air 03/22 1054 91 Room Air 03/22 1014 120/62 03/22 1014 120/62 03/22 0854 95 Nasal 3.0L Cannula 03/22 0825 98.5 80 20 118/62 92 Intake & Output 03/23 0800 03/23 0000 03/22 1600 Intake Total 20 Output Total 150 Balance -130 Intake, IV 20 Output, Urine 150 Physical Exam General Appearance: Alert, Oriented X3, Cooperative, No Acute Distress Other Physical Findings: HEENT- NCAT, PERRL, EOMI, anicteric sclera, moist mucous membranes, nasal cannula in place Neck- Supple, no JVD CVS- S1, S2 w/o m/g/r; RRR Resp- CTA bilaterally GI- Soft, obese, nontender, nondistended, bowel sounds intact Neuro- Awake and alert, CN II - XII grossly intact Ext- normal pulses, no cyanosis/clubbing/edema Current Medications: Current Medications Sig/Julissa Start time Last Medication Dose Route Stop Time Status Admin Acetaminophen 650 MG Q6P PRN 03/13 0700 AC 03/18 PO 2257 Al Hydroxide/Mg 30 ML Q4-6 PRN PRN 03/18 2200 AC 03/21 Hydroxide PO 1603 Albuterol Sulfate 3 ML BID 03/13 1000 AC 03/22 INH 1950 Albuterol Sulfate 2 PUF Q4-6 PRN PRN 03/13 0600 AC 03/14 INH 2139 Alprazolam 0.5 MG BID 03/20 1515 AC 03/22 PO 03/27 1514 2203 Aspirin Buffered 81 MG DAILY 03/13 1000 AC 03/22 PO 1014 Atorvastatin Calcium 80 MG 1700 03/13 1700 AC 03/22 PO 1827 Budesonide/ 2 PUF BID 03/13 1000 AC 03/22 Formoterol Fumarate INH 2205 Clopidogrel Bisulfate 75 MG DAILY 03/18 1000 AC 03/22 PO 1015 Folic Acid 1 MG DAILY 03/13 1000 AC 03/22 PO 1014 Furosemide 80 MG DAILY 03/20 1000 AC 03/22 PO 1014 Heparin Sodium 5,000 UNIT Q8 03/13 0658 AC 03/23 (Porcine) SC 0627 Insulin Aspart 0 TIDAC 03/17 1700 AC 03/22 SC 1209 Insulin Detemir 15 UNITS BID 03/17 2200 AC 03/22 SC 2209 Isosorbide 60 MG DAILY 03/13 1000 AC 03/22 Mononitrate PO 1014 Levothyroxine Sodium 0.2 MG DAILY AC 03/16 0700 AC 03/22 PO 0611 Metoprolol Tartrate 100 MG DAILY 03/13 1000 AC 03/22 PO 1014 Multivitamins 1 TAB DAILY 03/22 1658 AC 03/22 PO 2203 Oxymetazoline HCl 2 SPRAY BID 03/13 2200 AC 03/22 DALIA 1017 Pantoprazole Sodium 40 MG DAILY@03/22 2000 AC 03/22 IV 2211 Pantoprazole Sodium 40 MG DAILY 03/21 1815 DC 03/21 IV 1931 Patient Medication 1 ED .STK-MED ONE 03/22 1406 ME Teaching ED 03/22 1407 Ramelteon 8 MG AT BEDTIME 03/13 2200 AC 03/22 PO 2203 Senna 374 MG AT BEDTIME 03/14 2200 AC 03/22 PO 2203 Sertraline HCl 100 MG DAILY 03/13 1000 AC 03/22 PO 1017 Sodium Chloride 2 SPRAY Q4P PRN 03/13 2130 AC 03/16 DALIA 1036 Trazodone HCl 150 MG AT BEDTIME 03/13 2200 AC 03/22 PO 2203 Assessment/Plan Assessment: Patient is markedly clinically improved today after several session of hemodialysis in the previous days. His lower extremity swelling has long since improved. He is to receive dialysis tomororw and is anticipated to be dishcarged to home. Nephro vitamins started. Follow up iron studies and phosphorus. Confirm with Nephrology the need for lasix on discharge and any dose adjustments. Acute Systolic Congestive Heart Failure / Atrial Flutter / CKD V / CAD / HLD Patient with extesive cardiac history seen for evaluation of chest pain and shortness of breath. 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 -Telemetry -Daily weights, strict ins & outs -Lasix 80mg PO Daily -Aspirin 81mg PO Daily -Atorvastatin 80mg PO Daily -Metoprolol 100mg PO Daily -Plavix 75mg PO Daily -Imdur 60mg PO Daily -Nepho-vitamins -Venofer 200mg IV Daily, x5 doses -Cardiology consult, following -Nephrology consult, following Chronic Obstructive Pulmonary Disease / Chronic Hypoxic Respiratory Failure -TRC with albuterol/ipratropoum PRN -Supplemental oxygen, taper as tolerated, 2.0L baseline -Symbicort Insulin-dependent Diabetes Mellitus -Accuchecks TIDAC/HS -Hold oral hypoglycemics -Novolog SSI -Levemir 15 Units SC BID Anxiety / Depression -Sertraline 100mg PO Daily -Alprazolam 0.5mg PO BID Hypothyroidism-Levothyroixine 200mcg PO Daily Pain Plan-Acetaminophen Bowel Regimen-Senna Insomnia-Ramelteon / Trazodone Diet- CHF Diet DVT PPx- Subcutaneous Heparin Code Status- FULL CODE Problem List: 1. COPD (chronic obstructive pulmonary disease) 2. Insulin dependent type 2 diabetes mellitus 3. MILES (obstructive sleep apnea) 4. CHF (congestive heart failure) 5. Pleural effusion associated with hepatic disorder 6. CKD (chronic kidney disease), stage V 7. Acute on chronic diastolic (congestive) heart failure Pain Ratin Pain Location: 0 Pain Goal: Remain pain free Pain Plan: Mild pathway Tomorrow's Labs & Rationales: None Consulting Request: Consulting Specialty: Thoracic/Vascular Surgery Consulting Request: Consulting Specialty: Thoracic/Vascular Surgery
--- NOTE | 2017-03-23 09:35 | PN- Nephrology ---
Assessment/Plan Assessment: 1. 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 Congestive heart failure 3. Elevated troponin levels consistent with non-ST elevation [place] versus demand ischemia. 4. Anemia Suggestion: 1. Hemodialysis today in progress with ultrafiltration to approximately 90 kg which will be his target weight for now. 2. Patient has an outpatient dialysis slot at [facility] for tomorrow at 2 PM 3. Will start Epogen with dialysis as an outpatient 4. Okay for discharge after dialysis today to short-term rehabilitation Subjective Subjective: Patient offers no complaints today. Seen with dialysis. Phosphorus level 5.0, iron stores appear to be adequate. Objective Vital Signs and I&Os Vital Signs Date Time Temp Pulse Resp B/P B/P Pulse O2 O2 Flow FiO2 Mean Ox Delivery Rate 03/23 0600 98.1 74 18 110/60 93 Room Air 03/22 2224 99.6 89 19 118/68 93 Room Air 03/22 1955 Room Air 03/22 1530 Nasal 2.0L Cannula 03/22 1507 98.4 72 18 110/70 92 Room Air 03/22 1249 98.2 75 18 112/70 92 Room Air 03/22 1054 91 Room Air 03/22 1014 120/62 03/22 1014 120/62 Intake & Output 03/23 1600 03/23 0400 03/22 1600 03/22 0400 03/21 1600 03/21 0400 Intake Total 240 20 240 420 340 100 Output Total 150 2000 Balance 240 -130 240 420 -1660 100 Intake, IV 20 20 Intake, Oral 240 240 400 340 100 Number 0 Bowel Movements Output, 2000 Dialysate Output, Urine 150 Patient 205 lb 202 lb 203 lb Weight Weight Standing Scale Standing Scale Measurement Method Physical Exam: General: Well-developed white male in no acute distress Skin: No rash or jaundice HEENT: Conjunctivae pink, sclerae anicteric, mucous membranes moist Chest: Clear with diminished breath sounds in general and especially at bases Heart: Regular rate and rhythm without S3 or rub Abdomen: Soft and nontender Extremities: Without cyanosis or edema; the left upper arm AVF is patent Neuro: No asterixis or myoclonus Current Medications: Current Medications Sig/Julissa Start time Last Medication Dose Route Stop Time Status Admin Acetaminophen 650 MG Q6P PRN 03/13 0700 AC 03/18 PO 2257 Al Hydroxide/Mg 30 ML Q4-6 PRN PRN 06/09 2200 AC 03/21 Hydroxide PO 1603 Albuterol Sulfate 3 ML BID / 1000 AC 03/22 INH 1950 Albuterol Sulfate 2 PUF Q4-6 PRN PRN 03/13 0600 AC 03/14 INH 2139 Alprazolam 0.5 MG BID 03/20 1515 AC 03/22 PO 18 1514 2203 Aspirin Buffered 81 MG DAILY / 1000 AC 03/22 PO 1014 Atorvastatin Calcium 80 MG 1700 03/13 1700 AC 03/22 PO 1827 Budesonide/ 2 PUF BID / 1000 AC 03/22 Formoterol Fumarate INH 2205 Clopidogrel Bisulfate 75 MG DAILY 03/18 1000 AC 03/22 PO 1015 Folic Acid 1 MG DAILY 03/13 1000 AC 03/22 PO 1014 Furosemide 80 MG DAILY 03/20 1000 AC 03/22 PO 1014 Heparin Sodium 5,000 UNIT Q8 / 0658 AC 03/23 (Porcine) SC 0627 Insulin Aspart 0 TIDAC 03/17 1700 AC 03/22 SC 1209 Insulin Detemir 15 UNITS BID 03/17 2200 AC 03/22 SC 2209 Isosorbide 60 MG DAILY 03/13 1000 AC 03/22 Mononitrate PO 1014 Levothyroxine Sodium 0.2 MG DAILY AC 03/16 0700 AC 03/22 PO 0611 Metoprolol Tartrate 100 MG DAILY 03/13 1000 AC 03/22 PO 1014 Multivitamins 1 TAB DAILY 03/22 1658 AC 03/22 PO 2203 Oxymetazoline HCl 2 SPRAY BID 03/13 2200 AC 03/22 DALIA 1017 Pantoprazole Sodium 40 MG DAILY@03/22 AC 03/22 IV 2211 Pantoprazole Sodium 40 MG DAILY 03/21 1815 DC 03/21 IV 1931 Patient Medication 1 ED .STK-MED ONE 03/22 1406 DC Teaching ED 03/22 1407 Ramelteon 8 MG AT BEDTIME 03/13 2200 AC 03/22 PO 2203 Senna 374 MG AT BEDTIME 03/14 2200 AC 03/22 PO 2203 Sertraline HCl 100 MG DAILY 03/13 1000 AC 03/22 PO 1017 Sodium Chloride 2 SPRAY Q4P PRN 03/13 2130 AC 03/16 DALIA 1036 Trazodone HCl 150 MG AT BEDTIME 03/13 2200 AC 03/22 PO 2203 Results Pertinent Lab Results: Laboratory Tests 03/21 0835 Chemistry Sodium (137 - 145 mmol/L) 133 L Potassium (3.5 - 5.1 mmol/L) 4.1 Chloride (98 - 107 mmol/L) 95 L Carbon Dioxide (22 - 30 mmol/L) 26 Anion Gap (5 - 16) 12 BUN (9 - 20 mg/dL) 41 H Creatinine (0.7 - 1.2 mg/dL) 4.3 H Estimated GFR (>60 ml/min) 14 L BUN/Creatinine Ratio (7 - 25 %) 9.5 Phosphorus (2.5 - 4.5 mg/dL) 5.0 H Iron (49 - 181 ug/dL) 57 TIBC (261 - 462 ug/dL) 269 Ferritin (17.9 - 464 ng/mL) 415.0 Troponin I (<0.11 ng/ml) 0.13 *H Hematology CBC w Diff NO MAN DIFF REQ WBC (4.8 - 10.8 /CUMM) 5.7 RBC (4.70 - 6.10 /CUMM) 3.55 L Hgb (14.0 - 18.0 G/DL) 9.3 L Hct (42 - 52 %) 28.0 L MCV (80.0 - 94.0 FL) 79.0 L MCH (27.0 - 31.0 PG) 26.4 L RDW (11.5 - 14.5 %) 14.4 Plt Count (130 - 400 /CUMM) 244 MPV (7.4 - 10.4 FL) 7.5 Gran % (42.2 - 75.2 %) 64.2 Lymphocytes % (20.5 - 51.1 %) 20.5 Monocytes % (1.7 - 9.3 %) 11.3 H Eosinophils % (0 - 5 %) 3.4 Basophils % (0.0 - 2.0 %) 0.6 Absolute Granulocytes (1.4 - 6.5 /CUMM) 3.6 Absolute Lymphocytes (1.2 - 3.4 /CUMM) 1.2 Absolute Monocytes (0.10 - 0.60 /CUMM) 0.6 Absolute Eosinophils (0.0 - 0.7 /CUMM) 0.2 Absolute Basophils (0.0 - 0.2 /CUMM) 0 PUBS MCHC (33.0 - 37.0 G/DL) 33.3
[2017-03-23 09:50] LABS: ABSOLUTE BASOPHIL COUNT 0 /CUMM (0.0-0.2); ABSOLUTE EOSINOPHIL COUNT 0.1 /CUMM (0.0-0.7); ABSOLUTE GRANULOCYTE CT 3.5 /CUMM (1.4-6.5); ABSOLUTE LYMPH COUNT 1.1 /CUMM (1.2-3.4); ABSOLUTE MONOCYTE COUNT 0.5 /CUMM (0.10-0.60); BASOPHIL % 0.5 % (0.0-2.0); EOSINOPHIL % 1.3 % (0-5); GRANULOCYTE % 66.4 % (42.2-75.2); HEMATOCRIT 26.6 % (42-52); MEAN CORPUSCULAR HGB 26.3 PG (27.0-31.0); MEAN CORPUSCULAR HGB CONC 32.9 G/DL (33.0-37.0); MEAN PLATELET VOLUME 8.2 FL (7.4-10.4); PLATELET COUNT 197 /CUMM (130-400); RBC DISTRIBUTION WIDTH 15.5 % (11.5-14.5); RED BLOOD CELL CT 3.33 /CUMM (4.70-6.10); WHITE BLOOD CELL COUNT 5.2 /CUMM (4.8-10.8)
--- NOTE | 2017-03-23 10:16 | NUR ---
physical therapy p off floor at dialysis at this time, cancel PT for today
--- NOTE | 2017-03-23 10:33 | PN- Cardiology ---
LI,[facility] 03/23/17 1032: Subjective Subjective: Patient seen and examined. he is not in acute distress, he denies any headache, fever, chills, chest pain, palpitations, diarrhea. Vitals stable Review of Systems Constitutional: Reports: no symptoms. EENTM: Reports: no symptoms. Cardiovascular: Reports: no symptoms. Respiratory: Reports: no symptoms. Gastrointestinal: Reports: nausea, vomiting. Genitourinary: Reports: no symptoms. Musculoskeletal: Reports: no symptoms. Skin: Reports: no symptoms. Neurological/Psychological: Reports: no symptoms. All Other Systems: Reviewed and Negative Objective Vital Signs and I&Os Vital Signs Date Time Temp Pulse Resp B/P B/P Pulse O2 O2 Flow FiO2 Mean Ox Delivery Rate 03/23 0600 98.1 74 18 110/60 93 Room Air 03/22 2224 99.6 89 19 118/68 93 Room Air 03/22 1955 Room Air 03/22 1530 Nasal 2.0L Cannula 03/22 1507 98.4 72 18 110/70 92 Room Air 03/22 1249 98.2 75 18 112/70 92 Room Air 03/22 1054 91 Room Air Intake & Output 03/23 1600 03/23 0800 03/23 0000 03/22 1600 03/22 0800 03/22 0000 Intake Total 240 20 240 420 Output Total 150 Balance 240 -130 240 420 Intake, IV 20 20 Intake, Oral 240 240 400 Number 0 Bowel Movements Output, Urine 150 Patient 205 lb 202 lb Weight Weight Standing Scale Measurement Method Physical Exam General Appearance: well developed/nourished, no apparent distress, alert, awake Head: atraumatic, normal appearance Neck: normal inspection, supple Respiratory: normal breath sounds, chest non-tender, no respiratory distress Cardiovascular: regular rate/rhythm, edema, normal peripheral pulses Peripheral Pulses: 3+ dorsalis pedis (R), 3+ dorsalis pedis (L) Abdomen: normal bowel sounds, soft, non-tender Extremities: normal inspection, normal capillary refill, normal range of motion, no edema Current Medications: Current Medications Sig/Julissa Start time Last Medication Dose Route Stop Time Status Admin Acetaminophen 650 MG Q6P PRN 06/ 0700 AC 03/18 PO 2257 Al Hydroxide/Mg 30 ML Q4-6 PRN PRN 03/18 2200 AC 03/21 Hydroxide PO 1603 Albuterol Sulfate 3 ML BID 03/13 1000 AC 03/22 INH 1950 Albuterol Sulfate 2 PUF Q4-6 PRN PRN 03/13 0600 AC 03/14 INH 2139 Alprazolam 0.5 MG BID 03/20 1515 AC 03/22 PO 03/27 1514 2203 Aspirin Buffered 81 MG DAILY 03/13 1000 AC 03/22 PO 1014 Atorvastatin Calcium 80 MG 1700 03/13 1700 AC 03/22 PO 1827 Budesonide/ 2 PUF BID 03/13 1000 AC 03/22 Formoterol Fumarate INH 2205 Clopidogrel Bisulfate 75 MG DAILY 03/18 1000 AC 03/22 PO 1015 Folic Acid 1 MG DAILY 03/13 1000 AC 03/22 PO 1014 Furosemide 80 MG DAILY 03/20 1000 AC 03/22 PO 1014 Heparin Sodium 5,000 UNIT Q8 03/13 0658 AC 03/23 (Porcine) SC 0627 Insulin Aspart 0 TIDAC 03/17 1700 AC 03/22 SC 1209 Insulin Detemir 15 UNITS BID 03/17 2200 AC 03/22 SC 2209 Isosorbide 60 MG DAILY 03/13 1000 AC 03/22 Mononitrate PO 1014 Levothyroxine Sodium 0.2 MG DAILY AC 03/16 0700 AC 03/22 PO 0611 Metoprolol Tartrate 100 MG DAILY 03/13 1000 AC 03/22 PO 1014 Multivitamins 1 TAB DAILY 03/22 1658 AC 03/22 PO 2203 Oxymetazoline HCl 2 SPRAY BID 03/13 2200 AC 03/22 DALIA 1017 Pantoprazole Sodium 40 MG DAILY@03/22 AC 03/22 IV 2211 Patient Medication 1 ED .STK-MED ONE 03/22 1406 DC Teaching ED 03/22 1407 Ramelteon 8 MG AT BEDTIME 03/13 2200 AC 03/22 PO 2203 Senna 374 MG AT BEDTIME 03/14 2200 AC 03/22 PO 2203 Sertraline HCl 100 MG DAILY 03/13 1000 AC 03/22 PO 1017 Sodium Chloride 2 SPRAY Q4P PRN 03/13 2130 AC 03/16 DALIA 1036 Trazodone HCl 150 MG AT BEDTIME 03/13 2200 AC 03/22 PO 2203 Results Last 48 Hrs of Labs/Mics: Laboratory Tests 03/23/17 0800: Anion Gap 14, Estimated GFR 12 L, BUN/Creatinine Ratio 8.2, Glucose 147 H, Calcium 7.6 L, Magnesium 2.3, Albumin 3.7, CBC w Diff NO MAN DIFF REQ, RBC 3.33 L, MCV 80.0, MCH 26.3 L, RDW 15.5 H, MPV 8.2, Gran % 66.4, Lymphocytes % 21.8 , Monocytes % 10.0 H, Eosinophils % 1.3, Basophils % 0.5, Absolute Granulocytes 3.5, Absolute Lymphocytes 1.1 L, Absolute Monocytes 0.5, Absolute Eosinophils 0.1, Absolute Basophils 0, PUBS MCHC 32.9 L Assessment/Plan Assessment/Plan 67-year-old male with a past medical history of coronary artery disease status post stent placements, insulin-dependent diabetes mellitus, peripheral neuropathy, hyperlipidemia, CK D stage V status post left-sided fistula placed by nephrology prior to coming to the ED presented with chief complaint of inability to sleep because of chest pressure on lying down and shortness of breath. Admitted to telemetry floor to manage acute on chronic HFpEF, chronic kidney disease stage V, demand ischemia from volume overload. Currently patient is status post dialysis cath placement and he got 3 dialysis. Assessment; #CAD #Chronic kidney disease, stage V, status post dialysis cath placement s/p dialysis today #Acute HFpEF improving #History of diabetes Plan; * Continue by mouth Lasix 80 mg daily * Continue other cardiac medications which includes: Atorvastatin 80 mg by mouth daily, metoprolol 100 mg by mouth daily, Plavix 75 mg by mouth daily, Imdur 60 mg by mouth daily and aspirin 81 mg daily. * Had dialysis today. * Anticipated discharge * F/U with DVT prophylaxis Full code Continue telemetry? Not applicable Problem List: 1. CHF (congestive heart failure) 2. ESRD (end stage renal disease) MARIA GUADALUPE KAHN MD 03/23/17 1456: Attending MD Review Statement Attending Statement Attending MD Statement: examined this patient, discuss w/resident/PA/SOLAR MANUFACTURER'S REPRESENTATIVE, agreed w/resident/PA/SOLAR MANUFACTURER'S REPRESENTATIVE, discussed with family, reviewed EMR data (avail), discussed w/ nursing, reviewed images, amended to note Attending Assessment/Plan: The patient is comfortable. He is ready for discharge. Shortness of breath is improved. No chest pain. No palpitations. Gen: NAD HEENT: normal Lungs: Scattered rales bilaterally, normal resp. effort Heart: RRR, S1, S2, no murmurs Abdomen: Soft, nontender, no masses Extremities: 2+ edema Neuro: Alert and oriented x 3, cranial nerves intact Assessment: 1. CAD 2. Diabetes mellitus 3. Chronic kidney disease, stage V 4. Acute HFpEF, improving with dialysis Plan: * Dialysis as per nephrology * Continue by mouth Lasix. * Patient is planned for discharge today. * Follow up with Dr. Lee in one to 2 weeks.
[2017-03-23 11:20] VITALS: BP 118/74
[2017-03-23 12:12] VITALS: BP 118/74
--- NOTE | 2017-03-23 13:18 | NUR ---
Aware of patient initiating hemodialysis; presumably chronic. My colleague, Femi Bahena, had met with patient last week and was in communication with [facility] regarding a slot in the outpatient setting. Yesterday, received a call from [facility] informing me that a slot has been assigned beginning March 24 at 2:00pm. Mr. Dodd has also decided to accept a bed offer at [facility] for STR; transportation to dialysis will be provided by [employer] on Tuesdays and ; he will utilize his significant other and [employer] on other days. First transport arranged for tomorrow afternon. packing room supervisor at [facility] between 1:15 and 1:45. This information has been provided to [facility]. Please call if other social work needs arise.
== END 2017-03-23 14:47 | DRG 291 ==
LOC: ERH 02:14 → 1NO 04:12 → ERHI 04:12 → ENRESERV 04:57 → 1NO 06:09 → 2NB 03-22 12:41 → ENPENDDIS 03-23 08:22 → 2NB 03-23 14:47
PROVIDERS: Emergency Medicine; Internal Medicine Nephrology; Student in an Organized Health Care Education/Training Program; ADMIT Student in an Organized Health Care Education/Training Program
PROC: 5A1D60Z (ICD-10-PCS; 2017-03-15)
PROC: 02HV33Z Insertion of Infusion Device into Superior Vena Cava, Percutaneous Approach (ICD-10-PCS; principal; 2017-03-17)
PROC: B518ZZA Fluoroscopy of Superior Vena Cava, Guidance (ICD-10-PCS; principal; 2017-03-17)
DX: I13.2 Hypertensive heart and chronic kidney disease with heart failure and with stage 5 chronic kidney disease, or end stage renal disease (principal); N17.9 Acute kidney failure, unspecified; I50.33 Acute on chronic diastolic (congestive) heart failure; J96.10 Chronic respiratory failure, unspecified whether with hypoxia or hypercapnia; E11.22 Type 2 diabetes mellitus with diabetic chronic kidney disease; E11.42 Type 2 diabetes mellitus with diabetic polyneuropathy; Z99.81 Dependence on supplemental oxygen; N18.6 End stage renal disease; I24.8 Other forms of acute ischemic heart disease; I48.92 Unspecified atrial flutter; J44.9 Chronic obstructive pulmonary disease, unspecified; I25.10 Atherosclerotic heart disease of native coronary artery without angina pectoris; E78.5 Hyperlipidemia, unspecified; Z79.4 Long term (current) use of insulin; G47.33 Obstructive sleep apnea (adult) (pediatric); Z87.891 Personal history of nicotine dependence
CPT/HCPCS: 04007; 1NP; 2NBP; 36415; 77001; 82436; 87040; 93005; 93010; 97110-GO; 97116-GO; 97161-GP; C1752; J1644; J1756; J1815; J1940; J2405; J3490; J7042

== ENCOUNTER 2017-03-27 13:40 | Inpatient (IN) | payer OTHER, MEDICARE ==
[~2017-03-27] VITALS: Ht 177.8 cm; Wt 91.9 kg
[~2017-03-27 13:40] MED LIST changes: +PLAVIX75 M1 PO; +ZOLOFT100 M1 PO
--- NOTE | 2017-03-27 13:49 | NUR ---
TRIAGE: 67 Y/O MALE BIBA FROM [facility] WITH MULTIPLE COMPLAINTS: "I'VE BEEN CONSTIPATED, I HAVE ANXIETY, I'VE BEEN VOMITING." NO VOMITING NOTICED IN TRIAGE. AFEBRILE. ON 2L SUPPLEMENTAL OXYGEN FOR HX OF COPD - SPO2 100%. NO RESP DISTRESS NOTED.
--- NOTE | 2017-03-27 14:03 | NUR ---
PT NOW COMPLAINING OF CP, EKG ORDERED
--- NOTE | 2017-03-27 14:38 | ED GI/GU/ABDOMINAL COMPLAINT ---
History of Present Illness General Chief Complaint: General Adult Stated Complaint: BIBA, +NV, CONSTIPATION Source: patient, old records Exam Limitations: no limitations Vital Signs & Intake/Output Vital Signs & Intake/Output Vital Signs Date Time Temp Pulse Resp B/P B/P Pulse O2 O2 Flow FiO2 Mean Ox Delivery Rate 03/28 0036 99 Room Air 03/28 0013 136/70 03/27 2158 98.0 86 16 119/68 98 Room Air 03/27 1729 99.0 90 18 131/68 100 Nasal 2.0L Cannula 03/27 1447 100 Nasal 2.0L Cannula 03/27 1347 99.1 115 22 124/73 100 Nasal 2.0L Cannula ED Intake and Output 03/28 0000 03/27 1200 Intake Total Output Total Balance Patient 210 lb Weight Weight Reported by Patient Measurement Method Allergies Coded Allergies: Iodinated Contrast- Oral and IV Dye (PER PT STATES HIS KIDNEYS ARE SHOT HE IS ON DIALYSIS 03/27/17) morphine (Mild, LOOPY 01/18/17) hydromorphone (DEPRESSED RESPIRATIONS 01/18/17) Reconcile Medications Albuterol Sulfate (Proair Hfa) 90 MCG HFA.AER.AD 2 PUF INH Q4H PRN SOB ( Reported) Alprazolam (Xanax) 0.5 MG TABLET 1 TAB PO BID PRN ANXIETY Aspirin (Ecotrin*) 81 MG TABLET.DR 1 TAB PO QHS CAD (Reported) Atorvastatin Calcium (Lipitor) 80 MG TABLET 1 TAB PO QHS CHOLESTEROL ( Reported) Budesonide/Formoterol Fumarate (Symbicort 160-4.5 Mcg Inhaler) 160 MCG-4.5 MCG/ ACTUATION HFA.AER.AD 2 PUF INH BID COPD Rinse your mouth after using inhaler. Clonidine HCl 0.1 MG TABLET 1 TAB PO BID BP (Reported) Clopidogrel Bisulfate (Plavix) 75 MG TABLET 75 MG PO DAILY ANTIPLATELET Folic Acid 1 MG TABLET 1 TAB PO DAILY SUPPLEMENT (Reported) Furosemide (Lasix) 40 MG TABLET 80 MG PO DAILY diuresis Insulin Glargine,Hum.rec.anlog (Lantus Solostar) 100 UNIT/ML (3 ML) INSULN.PEN 15 UNITS SQ BID DIABETES Isosorbide Mononitrate (Isosorbide Mononitrate ER) 60 MG TAB.ER.24H 1 TAB PO DAILY CAD Levothyroxine Sodium (Synthroid) 200 MCG TABLET 0.2 MG PO DAILY AC THYROID Liraglutide (Victoza 3-Zeus) 0.6 MG/0.1 ML PEN.INJCTR 1.8 MG PO QHS DIABETES ( Reported) Metoprolol Tartrate 100 MG TABLET 1 TAB PO DAILY HEART (Reported) Nut.tx.impaired Renal Fxn,Soy (Nepro Carb Steady) (Unknown Strength) LIQUID 120 ML PO BID UNKNOWN (Reported) Ramelteon (Rozerem) 8 MG TABLET 1 TAB PO AT BEDTIME SLEEP HELP Sennosides/Docusate Sodium (Senna S Tablet) 8.6 MG-50 MG TABLET 2 TAB PO QHS GI (Reported) Sertraline HCl (Zoloft) 100 MG TABLET 1 TAB PO DAILY ANXIETY (Reported) Sevelamer Carbonate (Renvela) 800 MG TABLET 2 TAB PO TID ESRD (Reported) Tamsulosin HCl 0.4 MG CAP.ER.24H 1 CAP PO DAILY PROSTATE (Reported) Trazodone HCl 150 MG TABLET 1 TAB PO QPM SLEEP (Reported) Triage Note: TRIAGE: 67 Y/O MALE BIBA FROM [facility] WITH MULTIPLE COMPLAINTS: "I'VE BEEN CONSTIPATED, I HAVE ANXIETY, I'VE BEEN VOMITING." NO VOMITING NOTICED IN TRIAGE. AFEBRILE. ON 2L SUPPLEMENTAL OXYGEN FOR HX OF COPD - SPO2 100%. NO RESP DISTRESS NOTED. Triage Nurses Notes Reviewed? yes Onset: Abrupt Duration: hour(s):, day(s): (8), constant, continues in ED, getting worse Timing: single episode today Quality/Severity: fullness, moderate Severity Numbers: 6 Location: generalized abdomen Radiation: no radiation Activities at Onset: rest Prior Abdominal Problems: constipation Past Sexual History: Unobtainable at this time Sexually Active: No No Modifying Factors: none Associated Symptoms: abdominal pain, fever/chills, nausea/vomiting, constipation HPI: 67-year-old male with a past medical history of chronic kidney disease on dialysis, CAD status post stents, COPD on when necessary oxygen, and hypertension brought in by ambulance [facility] for evaluation of nausea and vomiting fever abdominal pain and constipation for the past day. Patient reports that when he woke up this morning he was experiencing shaking chills, sweats, nausea, abdominal pain, multiple episodes of vomiting and increased anxiety. Abdominal pain is located in the bilateral lower abdomen and described as pressure or fullness. he rates the pain as a 6 out of 10 that does not radiate. Patient reports that he has a history of constipation and has not had a bowel movement since Tuesday. I taking MiraLAX without any improvement. Additionally patient reports that every few breaths he will get a pain on the left side of his chest. Pain is very brief and only several seconds. And is described as sharp 3 out of 10. 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 (JD BERNAL PA-C) Past History Travel History Traveled to [place] past 21 day No Medical History Any Pertinent Medical History? 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 Yes (JD BERNAL PA-C) Review of Systems Review of Systems Constitutional: Reports: see HPI, chills, fever. EENTM: Reports: no symptoms. Respiratory: Reports: see HPI, short of breath. Cardiovascular: Reports: see HPI, chest pain. GI: Reports: see HPI, abdominal pain, constipation, nausea, vomiting. Genitourinary: Reports: no symptoms. Musculoskeletal: Reports: no symptoms. Skin: Reports: no symptoms. Neurological/Psychological: Reports: no symptoms. Hematologic/Endocrine: Reports: no symptoms. Immunologic/Allergic: Reports: no symptoms. All Other Systems: Reviewed and Negative (JD BERNAL PA-C) Physical Exam Physical Exam General Appearance: well developed/nourished, no apparent distress, alert, awake , anxious, mild distress Head: atraumatic, normal appearance Eyes: Bilateral: normal appearance, PERRL, EOMI, normal inspection. Ears, Nose, Throat, Mouth: hearing grossly normal, moist mucous membrane, Tympanic normal Neck: normal inspection, supple, full range of motion, normal alignment, no midline tenderness Respiratory: normal breath sounds, chest non-tender, crackles Cardiovascular: regular rate/rhythm, normal peripheral pulses Peripheral Pulses: 2+ radial (R), 2+ radial (L), 2+ dorsalis pedis (R), 2+ dorsalis pedis (L) Gastrointestinal: normal bowel sounds, soft, distention, tenderness (diffuse) Rectal: normal inspection, normal rectal tone, heme negative stool Back: normal inspection, normal range of motion, no vertebral tenderness Extremities: normal range of motion, pain with movement Neurologic/Psych: no motor/sensory deficits, awake, alert, oriented x 3, normal gait, normal mood/affect Skin: intact, normal color, diaphoresis Core Measures ACS in differential dx? Yes Severe Sepsis Present: No Septic Shock Present: No (GABE LAWRENCE,JD) Progress Differential Diagnosis: AMI, appendicitis, biliary colic, bowel obstruction, cholecystitis, diverticulitis, gastritis, ischemic bowel, peptic ulcer, PUD/GERD , SBO, chf, copd, sepsis, pna Plan of Care: Orders Procedure Date/time Status Clear Liquid Diet 03/28 B Active CBC WITHOUT DIFFERENTIAL 03/28 0600 Active BASIC ELECTROLYTES PLUS BUN&CR 03/28 0600 Active EKG 03/28 0600 Active TROPONIN LEVEL 03/28 0400 Active EKG 03/28 0400 Active Vital Signs 03/27 2320 Complete Teach/Educate 03/27 2320 Active Pain Treatment and Response 03/27 2320 Active Nutritional Intake, Monitor 03/27 232 Active Isolation 03/27 2320 Active Intake & Output 03/27 2320 Complete Patient Care Conference 03/27 2320 Active Activity/Ambulation 03/27 2320 Complete TROPONIN LEVEL 03/27 2216 Complete EKG 03/27 2215 Active PT Evaluate & Treat 03/27 2208 Active Pathway - chart 03/27 2208 Active House Staff 03/27 2208 Active Code Status 03/27 2208 Active Add-on Test (ER Only) 03/27 2112 Active BLOOD CULTURE 03/27 2021 Active BLOOD CULTURE 03/27 2020 Active Patient Data 03/27 1957 Active Saline Lock 03/27 194 Active Misc Message 03/27 194 Active ED Holding Orders 03/27 194 Active Admit to inpatient 03/27 194 Active Vital Signs 03/27 194 Active Code Status 03/27 194 Complete EKG 03/27 1735 Active Add-on Test (ER Only) 03/27 1506 Active Telemetry/Desk Monitor 03/27 1506 Active D-DIMER 03/27 1506 Complete TROPONIN LEVEL 03/27 1430 Complete LIPASE 03/27 1430 Complete DIRECT BILIRUBIN 03/27 1430 Complete C-REACTIVE PROTEIN 03/27 1430 Complete B-TYPE NATRIURETIC PEP (BNP) 03/27 1430 Complete COMPREHENSIVE METABOLIC PANEL 03/27 1424 Complete CBC WITHOUT DIFFERENTIAL 03/27 1424 Complete EKG 03/27 1403 Active Intake & Output 03/27 1346 Active TRC EVALUATION (GEN) 03/27 UNK Active Weight 03/27 UNK Active VTE Mechanical Prophylaxis 03/27 UNK Complete VTE Mechanical Prophylaxis 03/27 UNK Active Vital Signs 03/27 UNK Complete Intake & Output 03/27 UNK Complete FingerStick- Glucose 03/27 UNK Active Activity/Ambulation 03/27 UNK Active NUTRITIONAL CONSULT 03/27 UNK Active Current Medications Sig/Julissa Start time Last Medication Dose Stop Time Status Admin Aspirin Buffered 81 MG AT BEDTIME 03/280 AC (Ecotrin) Atorvastatin Calcium 80 MG AT BEDTIME 03/28 2200 AC (Lipitor) Ramelteon 8 MG AT BEDTIME 03/28 2200 AC (Rozerem) Senna/Docusate Sodium 2 TAB AT BEDTIME 03/28 2200 AC (Senokot S) Trazodone HCl 150 MG QPM 03/28 2200 AC (Desyrel) Clonidine 0.1 MG BID 03/28 1000 AC (Catapres) Clopidogrel Bisulfate 75 MG DAILY 03/28 1000 AC (Plavix) Folic Acid 1 MG DAILY 03/28 1000 AC (Folic Acid) Furosemide 80 MG DAILY 03/28 1000 AC (Lasix) Isosorbide 60 MG DAILY 03/28 1000 AC Mononitrate (Imdur) Metoprolol Tartrate 100 MG DAILY 03/28 1000 AC (Lopressor) Sertraline HCl 100 MG DAILY 03/28 1000 AC (Zoloft) Sevelamer Carbonate 1,600 MG TID 03/28 1000 AC (Renvela) Tamsulosin HCl 0.4 MG DAILY 03/28 1000 AC (Flomax) Insulin Aspart 0 TIDAC 03/28 0800 AC (NovoLOG) Levothyroxine Sodium 0.2 MG DAILY AC 03/28 0700 AC (Synthroid) Heparin Sodium 5,000 UNIT Q8 03/28 06 AC (Porcine) Albuterol Sulfate 2 PUF Q4P PRN 03/27 221 AC (Ventolin) Alprazolam 0.5 MG BID PRN 03/27 2215 AC 03/28 (Xanax) 04/03 2214 0010 Prochlorperazine 10 MG Q6-PRN PRN 03/27 221 AC (Compazine) Budesonide/ 2 PUF BID 03/27 221 AC Formoterol Fumarate (Symbicort) Acetaminophen 650 MG Q6P PRN 03/27 2200 AC (Tylenol) Acetaminophen 1,000 MG Q8P PRN 03/27 2200 AC (Ofirmev) Laboratory Tests 03/27/17 2255: Troponin I 0.71 *H 03/27/17 1506: Troponin I Cancelled, C-Reactive Prot, Quant Cancelled, Vra-G-Wzvdgjmkdwc Pept Cancelled, Lipase Cancelled 03/27/17 1430: Anion Gap 20 H, Estimated GFR 17 L, BUN/Creatinine Ratio 6.9 L, Glucose 106 H, Calcium 8.6, Total Bilirubin 2.0 H, Direct Bilirubin 0.5 H, AST 32, ALT 50, Alkaline Phosphatase 99, Troponin I 0.18 *H, C-Reactive Prot, Quant 2.6 H, Pro- B-Natriuretic Pept 12321 H, Total Protein 7.4, Albumin 4.3, Globulin 3.1, Albumin/Globulin Ratio 1.4, Lipase 166, D-Dimer High Sensitivty 2992 H, CBC w Diff NO MAN DIFF REQ, RBC 4.00 L, MCV 80.1, MCH 26.5 L, RDW 16.2 H, MPV 7.9, Gran % 90.0 H, Lymphocytes % 4.4 L, Monocytes % 5.0, Eosinophils % 0.5, Basophils % 0.1, Absolute Granulocytes 4.5, Absolute Lymphocytes 0.2 L, Absolute Monocytes 0.3, Absolute Eosinophils 0, Absolute Basophils 0, PUBS MCHC 33.1 Microbiology 03/27 2255 BLOOD: Blood Culture - RECD 03/27 2037 BLOOD: Blood Culture - RECD 3:00 PM: Seen and evaluated. As time he is reporting abdominal pain, constipation and increased anxiety. Patient reports that he vomited up his Xanax earlier today. She does appear to be breathing rapidly but his oxygen saturation is 100 on 2 L nasal cannula. Patient feels as though the breathing is related to his anxiety. Basic blood will be drawn, noncontrast CT of the abdomen and pelvis ordered. We'll consider glycerin suppository. 4:14 PM she reevaluated. He reports increasing nausea and upset stomach. Zofran 4 mg IV ordered. 517 p.m.: Patient reports improvement in nausea with Zofran. He still reporting lower abdominal pressure. CT scan of the abdomen and pelvis did not show any acute abnormalities. small Bilateral pleural effusions present and Mild constipation was present. Patient reports he has not had a normal bowel movement since last Tuesday. Patient will be given a bisacodyl suppository per rectum to stimulate a bowel movement. So waiting on BNP, d-dimer, and troponin. Otherwise lab results are unchanged from previous. 538 PM: Troponin is elevated to 0.18 and BNP is elevated to 31,000. Previous lab results indicate that patient has had elevated troponin for a significant amount of time. BNP has been increasing for the last few months. Patient is still reporting pain on the left side of his upper abdomen/chest and shortness of breath. Dr. Zamudio was paged for input as to patient's disposition. Spoke with Dr. Zamudio at 6:17 PM and he feels that the patient should be brought in as a full admit. We will discuss the case with case management. Spoke with Dr. Boss patient will be admitted to telemetry for acute coronary syndrome and chf Exacerbation. Blood cultures were added due to the fact the patient reports signs of fever and jail reported 101 temp earlier in the day. (GABE LAWRENCE,JD) Initial ED EKG: sinus tach, left atrial abn, incomplete LBBB, LVH Prior EKG: unchanged Comments: PATIENT: DEEPIKA BRANDT PRESENT AGE: 67 PATIENT ACCOUNT NO: [id number] : 52 LOCATION: [facility] ORDERING PHYSICIAN: JD BERNAL PA-C SERVICE DATE: 03/27/17 EXAM TYPE: RAD - XRY-PORTABLE CHEST XRAY EXAMINATION: XR PORTABLE CHEST CLINICAL INFORMATION: Shortness of breath. Chest pain. COMPARISON: Chest x-ray 03/19/2017. TECHNIQUE: Portable frontal view of the chest was obtained. FINDINGS: The lungs are well-expanded and clear without focal airspace consolidation. No pleural effusions or pneumothoraces are identified. Cardiomediastinal contours are within normal limits. There is a large bore right jugular central venous catheter terminating within the right atrium. Soft tissues are unremarkable. No acute osseous abnormality is identified. IMPRESSION: No acute pulmonary process. DICTATED BY: PEGGY HERNANDEZ MD DATE/TIME DICTATED:03/27/171542 PRECIPITATE WASHER:SAVANA DATE/TIME TRANSCRIBED:03/27/171542 CONFIDENTIAL, DO NOT COPY WITHOUT APPROPRIATE AUTHORIZATION. <Electronically signed in Other Vendor System> SIGNED BY: PEGGY HERNANDEZ MD 03/27/171546 PATIENT: DEEPIKA BRANDT PRESENT AGE: 67 PATIENT ACCOUNT NO: [id number] : 52 LOCATION: [facility] ORDERING PHYSICIAN: JD BERNAL PA-C SERVICE DATE: 03/27/17 EXAM TYPE: CAT - CT ABD & PELVIS W/O IV CONTRAS EXAMINATION: CT ABDOMEN AND PELVIS WITHOUT CONTRAST CLINICAL INFORMATION: Diffuse abdominal pain, nausea, vomiting and constipation. COMPARISON: CT abdomen and pelvis without IV contrast 05/30/2015. TECHNIQUE: Multidetector volumetric imaging was performed from the superior aspect of the liver through the pubic symphysis. Sagittal and coronal reformatted images were obtained on the technologist's workstation. DLP: 804 mGy-cm. FINDINGS: LUNG BASES: There is a right lower lobe 5 mm nodule image 4, series 2. It is new since 2015 exam. There is a right middle lobe bandlike atelectasis. There is bilateral pleural effusion slightly greater on the left. There is a calcified granuloma right lower lobe. Heart size is normal. There are coronary artery calcifications. There is a tunneled central venous catheter in proximal right atrium. LIVER, GALLBLADDER, AND BILIARY TREE: The liver is normal in size, shape, and attenuation. There is small coarse calcifications in the left lobe of liver. No focal mass seen. The gallbladder is unremarkable with no evidence of radiopaque gallstones, gallbladder wall thickening, or obvious pericholecystic inflammatory changes. PANCREAS: Unremarkable. SPLEEN: Unremarkable. ADRENAL GLANDS: Unremarkable. KIDNEYS AND URETERS: The kidneys are normal in size, shape, and attenuation. There is a moderate size cyst midpole right measuring 5.2 cm. There are additional exophytic small lesions in both kidneys and small cysts in the left kidney. There are bilateral renal hilar calcifications. Small stone in the renal hilar region cannot be excluded. There is no hydronephrosis seen. BLADDER: Unremarkable. GASTROINTESTINAL TRACT: There is scattered stool seen throughout entire colon without distention. The small bowel loops are normal caliber. No free air or free fluid seen. There is inflammatory process seen in the abdomen. ABDOMINAL WALL: There is small ill-defined densities in the anterior abdominal wall probably injections granuloma. There is a moderate size well-defined lipoma left lower lateral abdominal wall measuring 10.7 x 5.5 cm. It is probably the same size as before. No evidence of abdominal wall hernia seen. LYMPH NODES: Normal. VASCULAR: Unremarkable. PELVIC VISCERA: The prostate gland is small. There is no free fluid. No abnormal pelvic lymph nodes noted. OSSEOUS STRUCTURES: No lytic or sclerotic process seen. There is mild ventral spondylosis lower dorsal spine. IMPRESSION: No acute intra-abdominal process seen. Minimal constipation without obstruction. Bilateral cortical and exophytic renal cysts are stable. Multiple renal vascular hilar calcifications are noted. Small stones cannot be excluded. However there is no hydronephrosis. Small nodule right lower lobe. Bilateral small pleural effusions slightly greater on the left. Recommend CT chest correlation. There is bandlike atelectasis right middle lobe. Small lateral abdominal wall lipoma. It is stable compared to previous study. DICTATED BY: DON MONZON MD DATE/TIME DICTATED:03/27/171535 PRECIPITATE WASHER:SAVANA DATE/TIME TRANSCRIBED:03/27/171535 CONFIDENTIAL, DO NOT COPY WITHOUT APPROPRIATE AUTHORIZATION. <Electronically signed in Other Vendor System> SIGNED BY: DON MONZON MD 03/27/17 1630 (JD BERNAL PA-C) Departure Departure Disposition: STILL A PATIENT Condition: Stable Clinical Impression Primary Impression: Chest pain Qualifiers: Chest pain type: chest pain on breathing Qualified Code: R07.1 - Chest pain on breathing Secondary Impressions: CHF (congestive heart failure) Qualifiers: Congestive heart failure type: unspecified congestive heart failure type Congestive heart failure chronicity: acute on chronic Qualified Code: I50.9 - Heart failure, unspecified SOB (shortness of breath) Referrals: CARLITA PAGE DO (PCP/Family) Departure Forms: Customer Survey General Discharge Information Admission Note Spoke With: JOSE LUIS PELAEZ MD Documentation of Exam: Documentation of any treatments & extenuating circumstances including Concerns Regarding Discharge (functional status, medication knowledge or non-compliance, living conditions, etc.) that warrant an admission rather than observation: Patient will require dialysis, serial labs, cardiology consult, nephrology consult, medication adjustment, physical therapy consult, serial imaging, rule out acute coronary syndrome. (GABE LAWRENCE,JD) PA/COMPOUNDING SCALER Co-Sign Statement Statement: ED Attending supervision documentation- [] I saw and evaluated the patient. I have also reviewed all the pertinent lab results and diagnostic results. I agree with the findings and the plan of care as documented in the PA's/COMPOUNDING SCALER's documentation. [x] I have reviewed the ED Record and agree with the PA's/COMPOUNDING SCALER's documentation. [] Additions or exceptions (if any) to the PAs/COMPOUNDING SCALER's note and plan are summarized below: [] (RADHA ELDRIDGE,ONI Neri)
--- NOTE | 2017-03-27 14:43 | NUR ---
PROVIDER AT BEDSIDE FOR EVAL. IV EST TO RAC
[2017-03-27 14:51] LABS: ABSOLUTE BASOPHIL COUNT 0 /CUMM (0.0-0.2); ABSOLUTE EOSINOPHIL COUNT 0 /CUMM (0.0-0.7); ABSOLUTE GRANULOCYTE CT 4.5 /CUMM (1.4-6.5); ABSOLUTE LYMPH COUNT 0.2 /CUMM (1.2-3.4); ABSOLUTE MONOCYTE COUNT 0.3 /CUMM (0.10-0.60); BASOPHIL % 0.1 % (0.0-2.0); EOSINOPHIL % 0.5 % (0-5); MEAN CORPUSCULAR HGB 26.5 PG (27.0-31.0); MEAN CORPUSCULAR HGB CONC 33.1 G/DL (33.0-37.0); MEAN CORPUSCULAR VOLUME 80.1 FL (80.0-94.0); MEAN PLATELET VOLUME 7.9 FL (7.4-10.4); PLATELET COUNT 216 /CUMM (130-400); RBC DISTRIBUTION WIDTH 16.2 % (11.5-14.5); WHITE BLOOD CELL COUNT 5.1 /CUMM (4.8-10.8)
[2017-03-27 15:01] LABS: HEMATOCRIT 32.1 % (42-52)
--- NOTE | 2017-03-27 15:25 | NUR ---
PATIENT RETURNS FROM CT SCAN.
--- NOTE | 2017-03-27 15:47 | RADIOLOGY REPORT ---
EXAMINATION: XR PORTABLE CHEST CLINICAL INFORMATION: Shortness of breath. Chest pain. COMPARISON: Chest x-ray 03/19/2017. TECHNIQUE: Portable frontal view of the chest was obtained. FINDINGS: The lungs are well-expanded and clear without focal airspace consolidation. No pleural effusions or pneumothoraces are identified. Cardiomediastinal contours are within normal limits. There is a large bore right jugular central venous catheter terminating within the right atrium. Soft tissues are unremarkable. No acute osseous abnormality is identified. IMPRESSION: No acute pulmonary process.
--- NOTE | 2017-03-27 16:14 | NUR ---
PT MEDICATED PER EMAR
--- NOTE | 2017-03-27 16:30 | CT SCAN REPORT ---
EXAMINATION: CT ABDOMEN AND PELVIS WITHOUT CONTRAST CLINICAL INFORMATION: Diffuse abdominal pain, nausea, vomiting and constipation. COMPARISON: CT abdomen and pelvis without IV contrast 05/30/2015. TECHNIQUE: Multidetector volumetric imaging was performed from the superior aspect of the liver through the pubic symphysis. Sagittal and coronal reformatted images were obtained on the technologist's workstation. DLP: 804 mGy-cm. FINDINGS: LUNG BASES: There is a right lower lobe 5 mm nodule image 4, series 2. It is new since 2015 exam. There is a right middle lobe bandlike atelectasis. There is bilateral pleural effusion slightly greater on the left. There is a calcified granuloma right lower lobe. Heart size is normal. There are coronary artery calcifications. There is a tunneled central venous catheter in proximal right atrium. LIVER, GALLBLADDER, AND BILIARY TREE: The liver is normal in size, shape, and attenuation. There is small coarse calcifications in the left lobe of liver. No focal mass seen. The gallbladder is unremarkable with no evidence of radiopaque gallstones, gallbladder wall thickening, or obvious pericholecystic inflammatory changes. PANCREAS: Unremarkable. SPLEEN: Unremarkable. ADRENAL GLANDS: Unremarkable. KIDNEYS AND URETERS: The kidneys are normal in size, shape, and attenuation. There is a moderate size cyst midpole right measuring 5.2 cm. There are additional exophytic small lesions in both kidneys and small cysts in the left kidney. There are bilateral renal hilar calcifications. Small stone in the renal hilar region cannot be excluded. There is no hydronephrosis seen. BLADDER: Unremarkable. GASTROINTESTINAL TRACT: There is scattered stool seen throughout entire colon without distention. The small bowel loops are normal caliber. No free air or free fluid seen. There is inflammatory process seen in the abdomen. ABDOMINAL WALL: There is small ill-defined densities in the anterior abdominal wall probably injections granuloma. There is a moderate size well-defined lipoma left lower lateral abdominal wall measuring 10.7 x 5.5 cm. It is probably the same size as before. No evidence of abdominal wall hernia seen. LYMPH NODES: Normal. VASCULAR: Unremarkable. PELVIC VISCERA: The prostate gland is small. There is no free fluid. No abnormal pelvic lymph nodes noted. OSSEOUS STRUCTURES: No lytic or sclerotic process seen. There is mild ventral spondylosis lower dorsal spine. IMPRESSION: No acute intra-abdominal process seen. Minimal constipation without obstruction. Bilateral cortical and exophytic renal cysts are stable. Multiple renal vascular hilar calcifications are noted. Small stones cannot be excluded. However there is no hydronephrosis. Small nodule right lower lobe. Bilateral small pleural effusions slightly greater on the left. Recommend CT chest correlation. There is bandlike atelectasis right middle lobe. Small lateral abdominal wall lipoma. It is stable compared to previous study.
--- NOTE | 2017-03-27 17:00 | NUR ---
PT STATES THAT HIS NAUSEA IS MUCH BETTER S/P MEDICATION. SAM BERNAL AWARE
--- NOTE | 2017-03-27 17:30 | NUR ---
CRITICAL TEST RESULTS [id number] DEEPIKA BRANDT 67 M TESTS AND RESULTS: TROPONIN 0.18 Results received and read back by: ALFA MERCEDES Results received date and time: 03/27/17 1731 The following provider was notified of the results, and read the results back: SAM BERNAL Notified date and time: 03/27/17 at 1730
--- NOTE | 2017-03-27 17:31 | NUR ---
PA AT BEDSIDE AND PT PLACED ON MONITOR
[2017-03-27] MEDS ORDERED: PROAIR HFA8.5 GM INH (17:36)
[2017-03-27] MEDS ORDERED: SENNA S TABLET1 EACH PO (17:40)
[2017-03-27] MEDS ORDERED: NEPRO CARB STE237 ML PO (17:42)
--- NOTE | 2017-03-27 18:28 | NUR ---
A FRIEND OF THE PT CALLED HER NAME IS BLU AND ASKED IF PT WAS IN ER AND STATUS OF PT.. PRIOR TO THIS PERSON GETTING ANY INFO ON PT, PT WAS ASKED IF IT IS OK TO STATE THAT HE IS HERE AND HIS STATUS.. PT SAID "YES, SHE IS THE BOSS"
--- NOTE | 2017-03-27 20:38 | NUR ---
TBA BLOOD CULTURES ORDERED REPEAT ZOFRAN DOSE FOR NAUSEA
--- NOTE | 2017-03-27 20:49 | NUR ---
PT'S RM ASSIGNMENT 175 BED 1
--- NOTE | 2017-03-27 21:33 | NUR ---
PT RESTING WITH LIGHTS OFF.. PT CALLED GIRLFRIEND TO UPDATE. NAUSEA IS UNDER CONTROL.
--- NOTE | 2017-03-27 21:52 | History & Physical ---
JEAN-CLAUDE JACKSON 03/27/17 2151: General Information and HPI MD Statement: I have seen and personally examined DEEPIKA BRANDT and documented this H&P. The patient is a 67 year old M who presented with a patient stated chief complaint of vomitting Source of Information: patient, old records Exam Limitations: no limitations History of Present Illness: 67 year old gentleman from [facility], with past medical hx of CAD s/p stents , COPD on intermittent oxygen, DM2 complicated with neuropathy, ESRD s/p immature fistula after which BAO cath was placed, on hemodialysis TTS brought to ED for evaluation of multiple episodes of vomitting. He was was admitted 03/15/17 for acute hypoxemic respiratory failure secondary to fluid overload and was discharged to [facility] for rehab on 03/23/17. Since discharge he has been feel better and states that he was very active and mobile there. This morning when he woke he felt very cold and had chills, this was followed by multiple episodes of non bloody bilious vomitting which was associated with non radiating 4/10 midepigastric band like pain. On interview he denied abdominal pain. A fever of 100.1 was also documented. For dinner he had a ham sandwhich and this morning he had yoruba toast. Endorses 4 day history of constipation which was relieved after he had formed nonbloody BM today. Denied chest pain, shortness of breath, dizziness, dysuria, unsure about sick contacts. Continues to have decreased UO. Allergies/Medications Allergies: Coded Allergies: Iodinated Contrast- Oral and IV Dye (PER PT STATES HIS KIDNEYS ARE SHOT HE IS ON DIALYSIS 03/27/17) morphine (Mild, LOOPY 01/18/17) hydromorphone (DEPRESSED RESPIRATIONS 01/18/17) Home Med list Albuterol Sulfate (Proair Hfa) 90 MCG HFA.AER.AD 2 PUF INH Q4H PRN SOB ( Reported) Alprazolam (Xanax) 0.5 MG TABLET 1 TAB PO BID PRN ANXIETY Aspirin (Ecotrin*) 81 MG TABLET.DR 1 TAB PO QHS CAD (Reported) Atorvastatin Calcium (Lipitor) 80 MG TABLET 1 TAB PO QHS CHOLESTEROL ( Reported) Budesonide/Formoterol Fumarate (Symbicort 160-4.5 Mcg Inhaler) 160 MCG-4.5 MCG/ ACTUATION HFA.AER.AD 2 PUF INH BID COPD Rinse your mouth after using inhaler. Clonidine HCl 0.1 MG TABLET 1 TAB PO BID BP (Reported) Clopidogrel Bisulfate (Plavix) 75 MG TABLET 75 MG PO DAILY ANTIPLATELET Folic Acid 1 MG TABLET 1 TAB PO DAILY SUPPLEMENT (Reported) Furosemide (Lasix) 40 MG TABLET 80 MG PO DAILY diuresis Insulin Glargine,Hum.rec.anlog (Lantus Solostar) 100 UNIT/ML (3 ML) INSULN.PEN 15 UNITS SQ BID DIABETES Isosorbide Mononitrate (Isosorbide Mononitrate ER) 60 MG TAB.ER.24H 1 TAB PO DAILY CAD Levothyroxine Sodium (Synthroid) 200 MCG TABLET 0.2 MG PO DAILY AC THYROID Liraglutide (Victoza 3-Zeus) 0.6 MG/0.1 ML PEN.INJCTR 1.8 MG PO QHS DIABETES ( Reported) Metoprolol Tartrate 100 MG TABLET 1 TAB PO DAILY HEART (Reported) Nut.tx.impaired Renal Fxn,Soy (Nepro Carb Steady) (Unknown Strength) LIQUID 120 ML PO BID UNKNOWN (Reported) Ramelteon (Rozerem) 8 MG TABLET 1 TAB PO AT BEDTIME SLEEP HELP Sennosides/Docusate Sodium (Senna S Tablet) 8.6 MG-50 MG TABLET 2 TAB PO QHS GI (Reported) Sertraline HCl (Zoloft) 100 MG TABLET 1 TAB PO DAILY ANXIETY (Reported) Sevelamer Carbonate (Renvela) 800 MG TABLET 2 TAB PO TID ESRD (Reported) Tamsulosin HCl 0.4 MG CAP.ER.24H 1 CAP PO DAILY PROSTATE (Reported) Trazodone HCl 150 MG TABLET 1 TAB PO QPM SLEEP (Reported) Compliance With Home Meds: GOOD Past History Travel History Traveled to [place] past 21 day No Medical History Neurological: NONE EENT: NONE Cardiovascular: CAD, hypertension, hyperlipidemia, 6 CARDIAC STENTS Respiratory: COPD Gastrointestinal: constipation Hepatic: NONE Renal: chronic kidney disease, L ARM AVF PLACED 01/17/17 Musculoskeletal: chronic back pain, ?BACK PROBLEM REQUIRE SX Psychiatric: NONE Endocrine: diabetes Blood Disorders: NONE Cancer(s): THYROID CA 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 Ambulation: cane IADLs Independent: shopping, housework, finances, food prep, telephone, transportation , medication admin. Sexual History Past Sexual History Unobtainable at this time Sexually Active No Review of Systems Review of Systems Constitutional: Reports: chills, fever. Cardiovascular: Denies: chest pain, edema, orthopena, palpitations, peripheral edema, syncope. Respiratory: Denies: cough, hemoptysis, orthopnea, short of breath, sputum production, stridor, wheezing. GI: Reports: abdominal pain, vomiting. Denies: bloating, constipation, diarrhea, distention, bowel incontinence, melena, nausea, bloody stool, changes in stool, steatorrhea. Genitourinary: Denies: discharge, dysuria, frequency, hematuria, hesitation, nocturia, pain, urgency. Exam & Diagnostic Data Last 24 Hrs of Vital Signs/I&O Vital Signs Date Time Temp Pulse Resp B/P B/P Pulse O2 O2 Flow FiO2 Mean Ox Delivery Rate 03/27 2158 98.0 86 16 119/68 98 Room Air 03/27 1729 99.0 90 18 131/68 100 Nasal 2.0L Cannula 03/27 1447 100 Nasal 2.0L Cannula 03/27 1347 99.1 115 22 124/73 100 Nasal 2.0L Cannula Intake & Output 03/27 1600 03/27 0800 03/27 0000 Intake Total Output Total Balance Patient 210 lb Weight Weight Reported by Patient Measurement Method Physical Exam General Appearance Alert, Oriented X3, Cooperative, No Acute Distress Skin Bao cath on right upper chest, no signs of infection in surrounding skin HEENT Atraumatic, PERRLA, EOMI, Mucous Membr. moist/pink Neck Supple Lymphatic Cervical nl Cardiovascular Regular Rate, Normal S1, Normal S2 Lungs decreased breath sounds on left middle lung area Abdomen Normal Bowel Sounds, Soft, mild guarding, tenderness to palpation in LLQ Extremities No Edema, Normal Pulses Last 24 Hrs of Labs/Angus: Laboratory Tests 03/27/17 1506: Troponin I Cancelled, C-Reactive Prot, Quant Cancelled, Bkd-R-Hewbstlagug Pept Cancelled, Lipase Cancelled 03/27/17 1430: Anion Gap 20 H, Estimated GFR 17 L, BUN/Creatinine Ratio 6.9 L, Glucose 106 H, Calcium 8.6, Total Bilirubin 2.0 H, Direct Bilirubin 0.5 H, AST 32, ALT 50, Alkaline Phosphatase 99, Troponin I 0.18 *H, C-Reactive Prot, Quant 2.6 H, Pro- B-Natriuretic Pept 86407 H, Total Protein 7.4, Albumin 4.3, Globulin 3.1, Albumin/Globulin Ratio 1.4, Lipase 166, D-Dimer High Sensitivty 2992 H, CBC w Diff NO MAN DIFF REQ, RBC 4.00 L, MCV 80.1, MCH 26.5 L, RDW 16.2 H, MPV 7.9, Gran % 90.0 H, Lymphocytes % 4.4 L, Monocytes % 5.0, Eosinophils % 0.5, Basophils % 0.1, Absolute Granulocytes 4.5, Absolute Lymphocytes 0.2 L, Absolute Monocytes 0.3, Absolute Eosinophils 0, Absolute Basophils 0, PUBS MCHC 33.1 Microbiology 03/27 2037 BLOOD: Blood Culture - RECD 03/27 2021 BLOOD: Blood Culture - ORD Diagnostic Data EKG Results sinus tachycardia, LBBB CXR Results FINDINGS: The lungs are well-expanded and clear without focal airspace consolidation. No pleural effusions or pneumothoraces are identified. Cardiomediastinal contours are within normal limits. There is a large bore right jugular central venous catheter terminating within the right atrium. Soft tissues are unremarkable. No acute osseous abnormality is identified. IMPRESSION: No acute pulmonary process. Other Results CT ABDOMEN AND PELVIS WITHOUT CONTRAST FINDINGS: LUNG BASES: There is a right lower lobe 5 mm nodule image 4, series 2. It is new since 2015 exam. There is a right middle lobe bandlike atelectasis. There is bilateral pleural effusion slightly greater on the left. There is a calcified granuloma right lower lobe. Heart size is normal. There are coronary artery calcifications. There is a tunneled central venous catheter in proximal right atrium. LIVER, GALLBLADDER, AND BILIARY TREE: The liver is normal in size, shape, and attenuation. There is small coarse calcifications in the left lobe of liver. No focal mass seen. The gallbladder is unremarkable with no evidence of radiopaque gallstones, gallbladder wall thickening, or obvious pericholecystic inflammatory changes. PANCREAS: Unremarkable. SPLEEN: Unremarkable. ADRENAL GLANDS: Unremarkable. KIDNEYS AND URETERS: The kidneys are normal in size, shape, and attenuation. There is a moderate size cyst midpole right measuring 5.2 cm. There are additional exophytic small lesions in both kidneys and small cysts in the left kidney. There are bilateral renal hilar calcifications. Small stone in the renal hilar region cannot be excluded. There is no hydronephrosis seen. BLADDER: Unremarkable. GASTROINTESTINAL TRACT: There is scattered stool seen throughout entire colon without distention. The small bowel loops are normal caliber. No free air or free fluid seen. There is inflammatory process seen in the abdomen. ABDOMINAL WALL: There is small ill-defined densities in the anterior abdominal wall probably injections granuloma. There is a moderate size well-defined lipoma left lower lateral abdominal wall measuring 10.7 x 5.5 cm. It is probably the same size as before. No evidence of abdominal wall hernia seen. LYMPH NODES: Normal. VASCULAR: Unremarkable. PELVIC VISCERA: The prostate gland is small. There is no free fluid. No abnormal pelvic lymph nodes noted. OSSEOUS STRUCTURES: No lytic or sclerotic process seen. There is mild ventral spondylosis lower dorsal spine. IMPRESSION: No acute intra-abdominal process seen. Minimal constipation without obstruction. Bilateral cortical and exophytic renal cysts are stable. Multiple renal vascular hilar calcifications are noted. Small stones cannot be excluded. However there is no hydronephrosis. Small nodule right lower lobe. Bilateral small pleural effusions slightly greater on the left. Recommend CT chest correlation. There is bandlike atelectasis right middle lobe. Small lateral abdominal wall lipoma. It is stable compared to previous study. Assessment/Plan Assessment: 67 year old gentleman from [facility], with past medical hx of CAD s/p stents , COPD on intermittent oxygen, DM2 complicated with neuropathy, ESRD s/p immature fistula after which BAO cath was placed, on hemodialysis TTS brought to ED for evaluation of multiple episodes of vomitting. Labs significant for positive trop,elevated probnp, elevated D-dimer, Creatinine at his current baseline. As Ranked By This Provider Problem List: 1. Bilious vomiting Assessment/Plan d/d gastroenteritis vs diverticulits (LLQ pain to tenderness, no h/o diverticulosis) manage nausea with zofran or tigan if QTC prolonged no further episodes in ED afebrile, no increased wbc, watch off antibiotics no acute pathology on CT ABD/Pelvis 2. CKD (chronic kidney disease), stage V Assessment/Plan nephro consult placed dialysis on TTS Continue Renvela, Nephro krish 3. Congestive heart failure with preserved left ventricular function, NYHA class 1 Assessment/Plan Elevated ProbNp however Clinically no evidence of CHF exacerbation admit to tele floor elevated trop mostly likely demand ischemia 2/2 underlying renal d/s, will continue to trend trop and EKG elevated dimer possible secondary to renal insufficiency, well score 0, EKG NSR continue home dose of lasix and imur Echo 02/21/17 EF 50-55%, hypokinetic septum and apex cardio consult in am 4. Insulin dependent type 2 diabetes mellitus Assessment/Plan accuchecks hold oral hypoglycemis place on ISS and long acting insulin 5. Hypothyroidism Assessment/Plan continue synthroid 6. CAD (coronary artery disease) Assessment/Plan continue metoprolol, asa, liptor, clonidine, plavix 7. COPD (chronic obstructive pulmonary disease) Assessment/Plan TRC/neb continue proair and symbicort CXR normal outpt f/up for 5mm lung nodule in RLL new from previous scan of 2014 8. DVT prophylaxis Assessment/Plan sc heparin 9. Full code status Core Measures/Miscellaneous Acute Coronary Syndrome ACS Diagnosis: No Cerebrovascular Accident CVA/TIA Diagnosis: No Congestive Heart Failure CHF Diagnosis: Yes Date of most recent Echo: 03/10/17 VTE (View Protocol) VTE Risk Factors: Acute medical illness, Age > 40 [facility] d/t: No contraindications No VTE Pharm Prophylaxis d/t: No contraindications VTE Diagnosis: No VTE Type: NONE VTE Confirmed by (Test): NONE Sepsis (View Protocol) Severe Sepsis Present: No Septic Shock Septic Shock Present: No Miscellaneous Documentation Attending Case Discussed With: DAVE SMITH M.D Primary Care Physician: CARLITA PAGE DO Patient sees these Specialists none Level of Patient Care: Telemetry JASON LUIS 03/28/17 0206: Resident Review Statement Resident Statement: examined this patient, discussed with gallery intern, reviewed images, amended to note Other Findings: 67-year-old gentleman with extensive past medical history presented to the hospital ED with multiple episodes of vomiting, soon after the patient finished his breakfast; Brune[place] toast. Patient did have ham sandwich last night. Also reports constipation for several days. Found to have mild rise in troponin. To be admitted for telemetry to rule out ACS. Acute gastroenteritis: CT abdomen pelvis obtained, unrevealing of any intra- abdominal pathology. Current illness characterized by episodes of vomiting, likely of viral origin-rotavirus, norovirus etc. Clear liquid diet. Symptomatic treatment. Type II PA: Serial troponins and EKG. Cardiology evaluation. End-stage renal disease on hemodialysis: Nephrology consult. Essential hypertension: Continue home medications. Continue home medications for anxiety and depression. Full code Heparin for DVT prophylaxis. Clear liquid diet, advance as tolerated. BENIGNO ELDRIDGE, [facility] 03/28/17 0346: Attending MD Review Statement Attending Statement Attending MD Statement: examined this patient, discuss w/resident/PA/COVERING MACHINE OPERATOR HELPER, agreed w/resident/PA/COVERING MACHINE OPERATOR HELPER Attending Assessment/Plan: 67 yo M with h/o CAD s/p stents (Oct 2016), COPD, T2DM, neuropathy, chronic hypoxic respiratory failure on 2L O2, MILES noncompliant with CPAP, HFpEF, CKD stage 5 s/p AV fistula (January 2017), multiple admits for chest pain, dyspnea and elevated troponins, initiated on HD (TTS) via [facility] during recent admission for fluid voerload (03/15-03/23) and then discharged to [facility], is brought in for evaluation of shaking chills, fever of 101.7, nausea, vomiting, lower abdominal cramping and dyspnea. He reports eating ham sandwich last night and a yoruba toast this morning, nothing out of the usual. He denies abdominal pain, reports constipation which has resolved after he got a suppository in the ER. He reports the chest discomfort is no different from the last time, though it is intermittent. Vitals: Tmax 99.1, initially tachycardic to 110's, BP 131/68, sats 100% on 2L. Exam: AAO, MMM, Chest bibasilar crackles+, Right Bao cath site C/D/I, Heart S1S2 regular, Abd soft NT, LE: no edema. Left arm AV-fistula+. Labs: H/H 10/32.1, D- dimer 2992, AG 20, BUN 25, creat 3.6, T. Bili 2.0, normal transaminases, troponin 0.18, CRP 2.6, proBNP 98846. CT abd/pelvis: no acute process, constipation, renal cysts, RLL small nodule, bilateral pleural effusions. CXR: right jugular CVC, no acute process. Echo (February 2017): EF 50-55%. EKG: Sinus tachycardia, LVH, Qtc 508. Rectal exam: guaiac neg stool. 1. Nausea, vomiting, lower abdominal cramps likely 2/[address] is negative for acute pathology. Monitor for fever. Blood cultures drawn in ER. Monitor off antibiotics. Supportive care with anti-emetics , encourage clear liquids, no IV fluids given dialysis patient. Nutrition consult to help patient with dialysis diet. 2. Elevated troponin in this patient with h/o CAD. No new EKG changes. Demand ischemia. Tele admit, will trend troponins. Continue aspirin and plavix, imdur, metoprolol and statin. Cardio consult in AM. No need to repeat Echo. 3. CKD stage 5 on dialysis, not in fluid overload state, with chronically elevated proBNP not in acute worsening of HFpEF. Plan for scheduled dialysis on Tuesday. Obtain nephro consult. Continue lasix. 4. Chronic hypoxic respiratory failure, COPD, MILES, using intermittent 2L O2 via NC. Continue TRC nebs and symbicort. Outpatient restudy of sleep apnea pending. Low dose CT screening for lung cancer due in July 2017. DVT ppx Hep SC. Full code.
--- NOTE | 2017-03-27 23:10 | NUR ---
REPORT GIVEN TO CASSIE PORTILLO
--- NOTE | 2017-03-28 00:17 | Admission Certification ---
Admission Certification Certification Statement - As attending physician, I certify that at the time of - admission, based on clinical presentation, severity of - symptoms, need for further diagnostic testing and - therapeutic interventions, and risk of adverse outcomes - without in-hospital treatment, in my clinical assessment, - this patient requires an acute hospital stay for a minimum - of two nights or longer. I have also considered psychsocial - factors such as support system, advanced age, financial - issues, cognitive issues, and failed out-patient treatments, - past re-admission history, safety of patient, and lack of - compliance as applicable. Specific rationale supporting this admission is: Gastroenteritis, fever, elevated troponin, ESRD on dialysis.
[2017-03-28 06:23] LABS: ABSOLUTE BASOPHIL COUNT 0 /CUMM (0.0-0.2); ABSOLUTE EOSINOPHIL COUNT 0.2 /CUMM (0.0-0.7); ABSOLUTE LYMPH COUNT 1.3 /CUMM (1.2-3.4); ABSOLUTE MONOCYTE COUNT 0.7 /CUMM (0.10-0.60); BASOPHIL % 0.8 % (0.0-2.0); EOSINOPHIL % 2.9 % (0-5); GRANULOCYTE % 57.7 % (42.2-75.2); HEMATOCRIT 28.2 % (42-52); MEAN CORPUSCULAR HGB 26.5 PG (27.0-31.0); MEAN CORPUSCULAR HGB CONC 32.7 G/DL (33.0-37.0); MEAN CORPUSCULAR VOLUME 80.9 FL (80.0-94.0); MEAN PLATELET VOLUME 8.2 FL (7.4-10.4); PLATELET COUNT 214 /CUMM (130-400); RBC DISTRIBUTION WIDTH 16.4 % (11.5-14.5); RED BLOOD CELL CT 3.49 /CUMM (4.70-6.10); WHITE BLOOD CELL COUNT 5.2 /CUMM (4.8-10.8)
--- NOTE | 2017-03-28 08:05 | Cons- Urology ---
General Information and HPI Consulting Request Date of Consult: 03/28/17 Requested By: DAVE SMITH M.D Reason for Consult: bilateral renal cysts. ? bilateral stones Source of Information: patient, old records Exam Limitations: no limitations History of Present Illness: 67-year-old gentleman with multiple medical problems, including renal failure on hemodialysis. The patient was in a longterm facility and brought to the [facility] with complaints of nausea vomiting. CAT scan was performed revealing no evidence of solid tumor in either kidney, renal artery calcification, no evidence of stone or obstruction. Additionally the patient denies renal colic. The patient voiced once a week easily, with no hematuria. Allergies/Medications Allergies: Coded Allergies: Iodinated Contrast- Oral and IV Dye (PER PT STATES HIS KIDNEYS ARE SHOT HE IS ON DIALYSIS 03/27/17) morphine (Mild, LOOPY 01/18/17) hydromorphone (DEPRESSED RESPIRATIONS 01/18/17) Home Med List: Albuterol Sulfate (Proair Hfa) 90 MCG HFA.AER.AD 2 PUF INH Q4H PRN SOB ( Reported) Alprazolam (Xanax) 0.5 MG TABLET 1 TAB PO BID PRN ANXIETY Aspirin (Ecotrin*) 81 MG TABLET.DR 1 TAB PO QHS CAD (Reported) Atorvastatin Calcium (Lipitor) 80 MG TABLET 1 TAB PO QHS CHOLESTEROL ( Reported) Budesonide/Formoterol Fumarate (Symbicort 160-4.5 Mcg Inhaler) 160 MCG-4.5 MCG/ ACTUATION HFA.AER.AD 2 PUF INH BID COPD Rinse your mouth after using inhaler. Clonidine HCl 0.1 MG TABLET 1 TAB PO BID BP (Reported) Clopidogrel Bisulfate (Plavix) 75 MG TABLET 75 MG PO DAILY ANTIPLATELET Folic Acid 1 MG TABLET 1 TAB PO DAILY SUPPLEMENT (Reported) Furosemide (Lasix) 40 MG TABLET 80 MG PO DAILY diuresis Insulin Glargine,Hum.rec.anlog (Lantus Solostar) 100 UNIT/ML (3 ML) INSULN.PEN 15 UNITS SQ BID DIABETES Isosorbide Mononitrate (Isosorbide Mononitrate ER) 60 MG TAB.ER.24H 1 TAB PO DAILY CAD Levothyroxine Sodium (Synthroid) 200 MCG TABLET 0.2 MG PO DAILY AC THYROID Liraglutide (Victoza 3-Zeus) 0.6 MG/0.1 ML PEN.INJCTR 1.8 MG PO QHS DIABETES ( Reported) Metoprolol Tartrate 100 MG TABLET 1 TAB PO DAILY HEART (Reported) Nut.tx.impaired Renal Fxn,Soy (Nepro Carb Steady) (Unknown Strength) LIQUID 120 ML PO BID UNKNOWN (Reported) Ramelteon (Rozerem) 8 MG TABLET 1 TAB PO AT BEDTIME SLEEP HELP Sennosides/Docusate Sodium (Senna S Tablet) 8.6 MG-50 MG TABLET 2 TAB PO QHS GI (Reported) Sertraline HCl (Zoloft) 100 MG TABLET 1 TAB PO DAILY ANXIETY (Reported) Sevelamer Carbonate (Renvela) 800 MG TABLET 2 TAB PO TID ESRD (Reported) Tamsulosin HCl 0.4 MG CAP.ER.24H 1 CAP PO DAILY PROSTATE (Reported) Trazodone HCl 150 MG TABLET 1 TAB PO QPM SLEEP (Reported) Current Medications: Current Medications Sig/Julissa Start time Last Medication Dose Route Stop Time Status Admin Acetaminophen 650 MG Q6P PRN 03/27 2200 AC PO Acetaminophen 1,000 MG Q8P PRN 03/27 2200 AC IV Albuterol Sulfate 2 PUF Q4P PRN 03/27 2215 AC INH Alprazolam 0.5 MG BID PRN 03/27 2215 AC 03/28 PO 04/03 2214 0010 Aspirin Buffered 81 MG AT BEDTIME 03/28 2200 AC PO Atorvastatin Calcium 80 MG AT BEDTIME 03/28 2200 AC PO Bisacodyl 10 MG ONCE ONE 03/27 1715 DC 03/27 KS 03/27 1716 1724 Budesonide/ 2 PUF BID 03/27 2211 AC 03/27 Formoterol Fumarate INH 2215 Clonidine 0.1 MG BID 03/28 1000 AC PO Clonidine 0.1 MG ONCE ONE 03/27 2345 DC 03/28 PO 03/27 2346 0013 Clopidogrel Bisulfate 75 MG DAILY 03/28 1000 AC PO Folic Acid 1 MG DAILY 03/28 1000 AC PO Furosemide 80 MG DAILY 03/28 1000 AC PO Heparin Sodium 5,000 UNIT Q8 03/28 0600 AC 03/28 (Porcine) SC 0643 Insulin Aspart 0 TIDAC 03/28 0800 AC SC Isosorbide 60 MG DAILY 03/28 1000 AC Mononitrate PO Levothyroxine Sodium 0.2 MG DAILY AC 03/28 0700 AC 03/28 PO 0643 Metoprolol Tartrate 100 MG DAILY 03/28 1000 AC PO Ondansetron HCl 4 MG ONCE ONE 03/27 2045 DC 03/27 IV 03/27 Ondansetron HCl 0 .STK-MED ONE 03/27 2037 DC .ROUTE Ondansetron HCl 0 .STK-MED ONE 03/27 161 DC .ROUTE Ondansetron HCl 4 MG ONCE ONE 03/27 1615 DC 03/27 IV 03/27 161 1614 Prochlorperazine 10 MG Q6-PRN PRN 03/27 2215 AC IV Ramelteon 8 MG AT BEDTIME 03/28 2200 AC PO Ramelteon 8 MG ONCE ONE 03/27 2345 DC 03/28 PO 03/27 2346 0010 Senna/Docusate Sodium 2 TAB AT BEDTIME 03/28 2200 AC PO Sertraline HCl 100 MG DAILY 03/28 1000 AC PO Sevelamer Carbonate 1,600 MG TID 03/28 1000 AC PO Tamsulosin HCl 0.4 MG DAILY 03/28 1000 AC PO Trazodone HCl 150 MG QPM 03/28 2200 DC PO Trazodone HCl 150 MG QPM 03/28 2200 AC PO Trazodone HCl 150 MG ONCE ONE 03/27 2345 DC 03/28 PO 03/27 2346 0017 Past History Medical History Neurological: NONE EENT: NONE Cardiovascular: CAD, hypertension, hyperlipidemia, 6 CARDIAC STENTS Respiratory: COPD Gastrointestinal: constipation Hepatic: NONE Renal: chronic kidney disease, L ARM AVF PLACED 01/17/17 Musculoskeletal: chronic back pain, ?BACK PROBLEM REQUIRE SX Psychiatric: NONE Endocrine: diabetes Blood Disorders: NONE 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 Acute Rehab Services at Home: Physical Therapy Smoking Status: Former Smoker ETOH Use: denies use Illicit Drug Use: denies illicit drug use Functional Ability ADLs Independent: dressing, eating, toileting, bathing. Ambulation: cane IADLs Independent: shopping, housework, finances, food prep, telephone, transportation , medication admin. Review of Systems Review of Systems Constitutional: Reports: no symptoms. EENTM: Reports: no symptoms. Cardiovascular: Reports: no symptoms. Respiratory: Reports: no symptoms. GI: Reports: no symptoms. Genitourinary: Reports: no symptoms. Skin: Reports: no symptoms. Exam & Diagnostic Data Vital Signs and I&O Vital Signs Date Time Temp Pulse Resp B/P B/P Pulse O2 O2 Flow FiO2 Mean Ox Delivery Rate 03/28 0036 99 Room Air 03/28 0013 136/70 03/27 2158 98.0 86 16 119/68 98 Room Air 03/27 1729 99.0 90 18 131/68 100 Nasal 2.0L Cannula 03/27 1447 100 Nasal 2.0L Cannula 03/27 1347 99.1 115 22 124/73 100 Nasal 2.0L Cannula Intake & Output 03/28 1600 03/28 0800 03/28 0000 03/27 1600 03/27 0800 03/27 0000 Intake Total 680 Output Total Balance 680 Intake, Oral 680 Patient 200 lb 210 lb Weight Weight Standing Scale Reported by Patient Measurement Method Physical Exam General Appearance: well developed/nourished, no apparent distress Head: atraumatic, normal appearance Eyes: Bilateral: normal appearance. Neck: normal inspection Respiratory: normal breath sounds Cardiovascular: regular rate/rhythm Gastrointestinal: normal bowel sounds, soft Back: no vertebral tenderness Extremities: normal inspection Reproductive: Normal male genitalia Last 24 Hours of Labs: Laboratory Tests 03/28 03/28 03/27 0530 0530 2255 Chemistry Sodium (137 - 145 mmol/L) 136 L Potassium (3.5 - 5.1 mmol/L) 3.6 Chloride (98 - 107 mmol/L) 98 Carbon Dioxide (22 - 30 mmol/L) 25 Anion Gap (5 - 16) 14 BUN (9 - 20 mg/dL) 34 H Creatinine (0.7 - 1.2 mg/dL) 4.2 H Estimated GFR (>60 ml/min) 14 L BUN/Creatinine Ratio (7 - 25 %) 8.1 Troponin I (<0.11 ng/ml) 0.75 *H 0.71 *H Hematology CBC w Diff NO MAN DIFF REQ WBC (4.8 - 10.8 /CUMM) 5.2 RBC (4.70 - 6.10 /CUMM) 3.49 L Hgb (14.0 - 18.0 G/DL) 9.2 L Hct (42 - 52 %) 28.2 L MCV (80.0 - 94.0 FL) 80.9 MCH (27.0 - 31.0 PG) 26.5 L RDW (11.5 - 14.5 %) 16.4 H Plt Count (130 - 400 /CUMM) 214 MPV (7.4 - 10.4 FL) 8.2 Gran % (42.2 - 75.2 %) 57.7 Lymphocytes % (20.5 - 51.1 %) 25.3 Monocytes % (1.7 - 9.3 %) 13.3 H Eosinophils % (0 - 5 %) 2.9 Basophils % (0.0 - 2.0 %) 0.8 Absolute Granulocytes (1.4 - 6.5 /CUMM) 3.0 Absolute Lymphocytes (1.2 - 3.4 /CUMM) 1.3 Absolute Monocytes (0.10 - 0.60 /CUMM) 0.7 H Absolute Eosinophils (0.0 - 0.7 /CUMM) 0.2 Absolute Basophils (0.0 - 0.2 /CUMM) 0 PUBS MCHC (33.0 - 37.0 G/DL) 32.7 L 03/27 03/27 1506 1430 Chemistry Sodium (137 - 145 mmol/L) 140 Potassium (3.5 - 5.1 mmol/L) 3.7 Chloride (98 - 107 mmol/L) 97 L Carbon Dioxide (22 - 30 mmol/L) 22 Anion Gap (5 - 16) 20 H BUN (9 - 20 mg/dL) 25 H Creatinine (0.7 - 1.2 mg/dL) 3.6 H Estimated GFR (>60 ml/min) 17 L BUN/Creatinine Ratio (7 - 25 %) 6.9 L Glucose (65 - 99 mg/dL) 106 H Calcium (8.4 - 10.2 mg/dL) 8.6 Total Bilirubin (0.2 - 1.3 mg/dL) 2.0 H Direct Bilirubin (< 0.4 mg/dL) 0.5 H AST (17 - 59 U/L) 32 ALT (21 - 72 U/L) 50 Alkaline Phosphatase (< 127 U/L) 99 Troponin I (<0.11 ng/ml) Cancelled 0.18 *H C-Reactive Prot, Quant (<1.0 mg/dL) Cancelled 2.6 H Jet-A-Mcpqgsedpht Pept (<125 pg/mL) Cancelled 82110 H Total Protein (6.3 - 8.2 g/dL) 7.4 Albumin (3.5 - 5.0 g/dL) 4.3 Globulin (1.9 - 4.2 gm/dL) 3.1 Albumin/Globulin Ratio (1.1 - 2.2 %) 1.4 Lipase (23 - 300 U/L) Cancelled 166 Coagulation D-Dimer High Sensitivty (0 - 243 ng/ml) 2992 H Hematology CBC w Diff NO MAN DIFF REQ WBC (4.8 - 10.8 /CUMM) 5.1 RBC (4.70 - 6.10 /CUMM) 4.00 L Hgb (14.0 - 18.0 G/DL) 10.6 L Hct (42 - 52 %) 32.1 L MCV (80.0 - 94.0 FL) 80.1 MCH (27.0 - 31.0 PG) 26.5 L RDW (11.5 - 14.5 %) 16.2 H Plt Count (130 - 400 /CUMM) 216 MPV (7.4 - 10.4 FL) 7.9 Gran % (42.2 - 75.2 %) 90.0 H Lymphocytes % (20.5 - 51.1 %) 4.4 L Monocytes % (1.7 - 9.3 %) 5.0 Eosinophils % (0 - 5 %) 0.5 Basophils % (0.0 - 2.0 %) 0.1 Absolute Granulocytes (1.4 - 6.5 /CUMM) 4.5 Absolute Lymphocytes (1.2 - 3.4 /CUMM) 0.2 L Absolute Monocytes (0.10 - 0.60 /CUMM) 0.3 Absolute Eosinophils (0.0 - 0.7 /CUMM) 0 Absolute Basophils (0.0 - 0.2 /CUMM) 0 PUBS MCHC (33.0 - 37.0 G/DL) 33.1 Imaging Results: PATIENT: DEEPIKA BRANDT PRESENT AGE: 67 PATIENT ACCOUNT NO: [id number] : 52 LOCATION: [facility] ORDERING PHYSICIAN: JD BERNAL PA-C SERVICE DATE: 03/27/177066 EXAM TYPE: CAT - CT ABD & PELVIS W/O IV CONTRAS EXAMINATION: CT ABDOMEN AND PELVIS WITHOUT CONTRAST CLINICAL INFORMATION: Diffuse abdominal pain, nausea, vomiting and constipation. COMPARISON: CT abdomen and pelvis without IV contrast 05/30/2015. TECHNIQUE: Multidetector volumetric imaging was performed from the superior aspect of the liver through the pubic symphysis. Sagittal and coronal reformatted images were obtained on the technologist's workstation. DLP: 804 mGy-cm. FINDINGS: LUNG BASES: There is a right lower lobe 5 mm nodule image 4, series 2. It is new since 2015 exam. There is a right middle lobe bandlike atelectasis. There is bilateral pleural effusion slightly greater on the left. There is a calcified granuloma right lower lobe. Heart size is normal. There are coronary artery calcifications. There is a tunneled central venous catheter in proximal right atrium. LIVER, GALLBLADDER, AND BILIARY TREE: The liver is normal in size, shape, and attenuation. There is small coarse calcifications in the left lobe of liver. No focal mass seen. The gallbladder is unremarkable with no evidence of radiopaque gallstones, gallbladder wall thickening, or obvious pericholecystic inflammatory changes. PANCREAS: Unremarkable. SPLEEN: Unremarkable. ADRENAL GLANDS: Unremarkable. KIDNEYS AND URETERS: The kidneys are normal in size, shape, and attenuation. There is a moderate size cyst midpole right measuring 5.2 cm. There are additional exophytic small lesions in both kidneys and small cysts in the left kidney. There are bilateral renal hilar calcifications. Small stone in the renal hilar region cannot be excluded. There is no hydronephrosis seen. BLADDER: Unremarkable. GASTROINTESTINAL TRACT: There is scattered stool seen throughout entire colon without distention. The small bowel loops are normal caliber. No free air or free fluid seen. There is inflammatory process seen in the abdomen. ABDOMINAL WALL: There is small ill-defined densities in the anterior abdominal wall probably injections granuloma. There is a moderate size well-defined lipoma left lower lateral abdominal wall measuring 10.7 x 5.5 cm. It is probably the same size as before. No evidence of abdominal wall hernia seen. LYMPH NODES: Normal. VASCULAR: Unremarkable. PELVIC VISCERA: The prostate gland is small. There is no free fluid. No abnormal pelvic lymph nodes noted. OSSEOUS STRUCTURES: No lytic or sclerotic process seen. There is mild ventral spondylosis lower dorsal spine. IMPRESSION: No acute intra-abdominal process seen. Minimal constipation without obstruction. Bilateral cortical and exophytic renal cysts are stable. Multiple renal vascular hilar calcifications are noted. Small stones cannot be excluded. However there is no hydronephrosis. Small nodule right lower lobe. Bilateral small pleural effusions slightly greater on the left. Recommend CT chest correlation. There is bandlike atelectasis right middle lobe. Small lateral abdominal wall lipoma. It is stable compared to previous study. Assessment/Plan Assessment/Plan Patient with multiple medical problems admitted with vague abdominal pain. Symptoms of renal colic was not elicited on history intake. Additionally there is no CVA tenderness bilaterally. CT scan confirms bilateral renal cysts, likely acquired on dialysis. No evidence of obstructing stone bilaterally. No evidence of solid tumor bilaterally. Latter and prostate are unremarkable. Plans for the patient to be evaluated for other causes of abdominal pain, but currently is pain-free. No additional recommendations at this time. Copies To: BENTON BENAVIDES MD Consult Acknowledgment - Thank you for your consult request. Attending MD Review Statement Attending Statement Attending MD Statement: examined this patient, discussed w/nursing Attending Assessment/Plan: pt with vague abdominal pain: unlikely of origin.
[2017-03-28 08:20] VITALS: BP 110/60
--- NOTE | 2017-03-28 10:22 | PN- Att Addend ---
Attending Addendum Attending Brief Note Patient seen and examined. Jovial, resting comfortably, not in any distress. Denies chest pain or shortness of breath. Denies palpitations. He did well ambulating with physical therapy services morning and is excited to hear that can go home once medically cleared rather than go back to the senior living facility. He denies nausea vomiting. Denies abdominal pain. Denies diarrhea. He admits to avoiding school amounts of urine and denies dysuria. On examination he is nontoxic looking. Right-sided tunnel catheter is intact with minimal erythema entry point. There is no discharge. The area is not tender to touch. He has mildly diminished breath sounds in lung bases. Lungs otherwise clear to auscultation. Abdomen is soft and nontender. He has no peripheral edema. Problems: 1. Fever with concern for sepsis. 2. Elevated troponins; with no EKG changes or symptoms. 3. End-stage renal disease on hemodialysis; awaiting maturation of AV fistula. Currently being dialyzed via recently placed tunneled catheter Plan: -Follow-up blood cultures. -Follow-up with the nephrology service for hemodialysis tomorrow. -He did well with physical therapy service and has been cleared for discharge home once medically ready. -He stable for a pulmonary standpoint maintaining saturation on room air. He saturating 99% on room air.
--- NOTE | 2017-03-28 13:58 | PN- Housestaff ---
Subjective Follow-up For: Gastroenteritis Elevated troponins Subjective: This morning patient is alert, awake and oriented. He denies any nausea, vomiting, abdominal pain. He had a bowel movement yesterday after suppository. He is passing flatus. He is tolerating clear liquid diet. Review of Systems Constitutional: Reports: see HPI. Objective Last 24 Hrs of Vital Signs/I&O Vital Signs Date Time Temp Pulse Resp B/P B/P Pulse O2 O2 Flow FiO2 Mean Ox Delivery Rate 03/28 1043 110/60 03/28 0922 Room Air Room Air 03/28 0922 99 Room Air Room Air 03/28 0910 110/60 03/28 0909 110/60 03/28 0909 110/60 03/28 0820 98.0 73 18 110/60 94 Room Air 03/28 0036 99 Room Air 03/28 0013 136/70 03/27 2158 98.0 86 16 119/68 98 Room Air 03/27 1729 99.0 90 18 131/68 100 Nasal 2.0L Cannula 03/27 1447 100 Nasal 2.0L Cannula 03/27 1347 99.1 115 22 124/73 100 Nasal 2.0L Cannula Intake & Output 03/28 1600 03/28 0800 03/28 0000 Intake Total 680 Output Total Balance 680 Intake, Oral 680 Patient 200 lb 200 lb Weight Weight Standing Scale Measurement Method Physical Exam General Appearance: Alert, Oriented X3, Cooperative, No Acute Distress Skin: Right sided upper chest [place] Cardiovascular: Regular Rate, No Murmurs Lungs: Clear to Auscultation Abdomen: Normal Bowel Sounds, Soft, No Tenderness Neurological: Normal Speech, Strength at 5/5 X4 Ext, Sensation Intact, Cranial Nerves 3-12 NL Extremities: No Edema Current Medications: Current Medications Sig/Julissa Start time Last Medication Dose Route Stop Time Status Admin Acetaminophen 650 MG Q6P PRN 03/27 2200 AC PO Acetaminophen 1,000 MG Q8P PRN 03/27 2200 AC IV Albuterol Sulfate 3 ML Q4H PRN 03/28 930 AC INH Albuterol Sulfate 2 PUF Q4P PRN 03/27 2215 AC INH Alprazolam 0.5 MG BID PRN 03/27 2215 AC 03/28 PO 04/03 Aspirin Buffered 81 MG AT BEDTIME 03/28 2200 AC PO Atorvastatin Calcium 80 MG AT BEDTIME 03/28 2200 AC PO Bisacodyl 10 MG ONCE ONE 03/27 1715 DC 03/27 KS 03/27 1716 1724 Budesonide/ 2 PUF BID 03/27 2211 AC 03/28 Formoterol Fumarate INH 0912 Clonidine 0.1 MG BID 03/28 1000 AC 03/28 PO 1043 Clonidine 0.1 MG ONCE ONE 03/27 2345 DC 03/28 PO 03/27 2346 0013 Clopidogrel Bisulfate 75 MG DAILY 03/28 1000 AC 03/28 PO 0910 Folic Acid 1 MG DAILY 03/28 1000 AC 03/28 PO 0909 Furosemide 80 MG DAILY 03/28 1000 AC 03/28 PO 0909 Heparin Sodium 5,000 UNIT Q8 03/28 0600 AC 03/28 (Porcine) SC 0643 Insulin Aspart 0 TIDAC 03/28 0800 AC SC Isosorbide 60 MG DAILY 03/28 1000 AC 03/28 Mononitrate PO 0909 Levothyroxine Sodium 0.2 MG DAILY AC 03/28 0700 AC 03/28 PO 0643 Metoprolol Tartrate 100 MG DAILY 03/28 1000 AC 03/28 PO 0910 Ondansetron HCl 4 MG ONCE ONE 03/27 2045 DC 03/27 IV 03/27 2046 2046 Ondansetron HCl 0 .STK-MED ONE 03/27 2037 DC .ROUTE Ondansetron HCl 0 .STK-MED ONE 03/27 1616 DC .ROUTE Ondansetron HCl 4 MG ONCE ONE 03/27 1615 DC 03/27 IV 03/27 1616 1614 Prochlorperazine 10 MG Q6-PRN PRN 03/27 2215 AC 03/28 IV 1207 Ramelteon 8 MG AT BEDTIME 03/28 2200 AC PO Ramelteon 8 MG ONCE ONE 03/27 2345 DC 03/28 PO 03/27 2346 0010 Senna/Docusate Sodium 2 TAB AT BEDTIME 03/28 2200 AC PO Sertraline HCl 100 MG DAILY 03/28 1000 AC 03/28 PO 0910 Sevelamer Carbonate 1,600 MG TID 03/28 1000 AC 03/28 PO 0910 Tamsulosin HCl 0.4 MG DAILY 03/28 1000 AC 03/28 PO 0909 Trazodone HCl 150 MG QPM 06/19 2200 DC PO Trazodone HCl 150 MG QPM 03/28 2200 AC PO Trazodone HCl 150 MG ONCE ONE 03/27 2345 DC 03/28 PO 03/27 2346 0017 Last 24 Hrs of Lab/Angus Results Last 24 Hrs of Labs/Mics: Laboratory Tests 03/28/17 1240: Troponin I 0.50 *H 03/28/17 0530: Troponin I 0.75 *H 03/28/17 0530: Anion Gap 14, Estimated GFR 14 L, BUN/Creatinine Ratio 8.1, CBC w Diff NO MAN DIFF REQ, RBC 3.49 L, MCV 80.9, MCH 26.5 L, RDW 16.4 H, MPV 8.2, Gran % 57.7, Lymphocytes % 25.3, Monocytes % 13.3 H, Eosinophils % 2.9, Basophils % 0.8, Absolute Granulocytes 3.0, Absolute Lymphocytes 1.3, Absolute Monocytes 0.7 H, Absolute Eosinophils 0.2, Absolute Basophils 0, PUBS MCHC 32.7 L 03/27/17 2255: Troponin I 0.71 *H 03/27/17 1506: Troponin I Cancelled, C-Reactive Prot, Quant Cancelled, Itz-Y-Tqwagbysuzm Pept Cancelled, Lipase Cancelled 03/27/17 1430: Anion Gap 20 H, Estimated GFR 17 L, BUN/Creatinine Ratio 6.9 L, Glucose 106 H, Calcium 8.6, Total Bilirubin 2.0 H, Direct Bilirubin 0.5 H, AST 32, ALT 50, Alkaline Phosphatase 99, Troponin I 0.18 *H, C-Reactive Prot, Quant 2.6 H, Pro- B-Natriuretic Pept 48653 H, Total Protein 7.4, Albumin 4.3, Globulin 3.1, Albumin/Globulin Ratio 1.4, Lipase 166, D-Dimer High Sensitivty 2992 H, CBC w Diff NO MAN DIFF REQ, RBC 4.00 L, MCV 80.1, MCH 26.5 L, RDW 16.2 H, MPV 7.9, Gran % 90.0 H, Lymphocytes % 4.4 L, Monocytes % 5.0, Eosinophils % 0.5, Basophils % 0.1, Absolute Granulocytes 4.5, Absolute Lymphocytes 0.2 L, Absolute Monocytes 0.3, Absolute Eosinophils 0, Absolute Basophils 0, PUBS MCHC 33.1 Microbiology 03/28 0756 BLOOD: Blood Culture - CAN Cancelled: Cancelled via OE: Per MD Decision 03/27 6587 BLOOD: Blood Culture - RECD 03/27 2037 BLOOD: Blood Culture - RECD Assessment/Plan Assessment: 67 year old Man with PMH of CAD s/p stents (Oct 2016), COPD, T2DM, neuropathy, chronic hypoxic respiratory failure on 2L O2, MILES noncompliant with CPAP, HFpEF, CKD stage 5 s/p AV fistula (January 2017), multiple admits for chest pain, dyspnea and elevated troponins, initiated on HD (TTS) via [facility] during recent admission for fluid voerload (03/15-03/23). Problem list 1. Nausea/vomiting/abdominal pain. most likely Gastroenteritis. Likely viral. Afebrile since admission. WBC count is normal. CT is negative for acute pathology. Blood cultures pending. 2. Elevated troponins. Most likely secondary to chronic kidney disease and poor clearance Denies chest pain. No EKG changes. Troponins are chronically elevated since October. 3. History of end-stage renal disease on dialysis, Tuesday and Tuesday 4. Bilateral cortical and exophytic renal cysts. stable PLAN * Monitor vitals closely. Watch for fevers * Followup blood cultures * Appreciated urology consult * Cardio consult pending * Patient is due for hemodialysis tomorrow * Advance diet as tolerated * Bowel regimen * Continue home medications * Physical therapy evaluation and treatment * Subcutaneous heparin for DVT prophylaxis * Full code Problem List: 1. Bilious vomiting Pain Ratin Pain Location: none Pain Goal: Pain 4 or less Pain Plan: tylenol Tomorrow's Labs & Rationales: bep DVT/Prophylaxis: pharmacological
[2017-03-28 15:48] VITALS: BP 96/54
--- NOTE | 2017-03-28 16:09 | PN- Nephrology ---
Assessment/Plan Assessment: 1. ESRD secondary to diabetic nephropathy - on hemodialysis Tuesday, and Tuesday 2. Transient vomiting and fever with negative blood cultures and normal WBC; no further GI symptoms at this time 3. Elevated troponins likely secondary to demand ischemia in setting of CKD 4. 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 Continue to monitor off antibiotics 2. We will arrange for hemodialysis here tomorrow with ultrafiltration to his target weight over 4 hours as tolerated 3. Continue outpatient medications 4. Diet: 2 g sodium, 2 g potassium, 80 g protein, no concentrated sweets, 1200 mL fluid limit per day 5. Mobilize as feasible Subjective Subjective: Patient was readmitted several days after discharge because of vomiting and fever. These symptoms and findings appear to have been transient and may have represented an acute gastroenteritis. He is no longer febrile and WBC remains within normal limits. It is always of concern when a patient with a dialysis catheter presents with fever but he does not appear to be septic, there is no leukocytosis and his blood cultures are negative. He appears to have clinically stabilized at this time and his dialysis day is tomorrow. Objective Vital Signs and I&Os Vital Signs Date Time Temp Pulse Resp B/P B/P Pulse O2 O2 Flow FiO2 Mean Ox Delivery Rate 03/28 1548 99.4 80 18 96/54 94 Room Air 03/28 1043 110/60 03/28 0922 Room Air Room Air 03/28 0922 99 Room Air Room Air 03/28 0910 110/60 03/28 0909 110/60 03/28 0909 110/60 03/28 0820 98.0 73 18 110/60 94 Room Air 03/28 0036 99 Room Air 03/28 0013 136/70 03/27 2158 98.0 86 16 119/68 98 Room Air 03/27 1729 99.0 90 18 131/68 100 Nasal 2.0L Cannula Intake & Output 03/28 1600 03/28 0400 03/27 1600 03/27 0400 03/26 1600 03/26 0400 Intake Total 1080 Output Total 300 Balance 780 Intake, Oral 1080 Output, 50 Emesis Output, Urine 250 Patient 200 lb 200 lb 210 lb Weight Weight Standing Scale Standing Scale Reported by Patient Measurement Method Physical Exam: General: Well-developed white male in no acute distress Skin: No rash or jaundice HEENT: Conjunctivae pink, sclerae anicteric, mucous membranes moist Chest: Clear with diminished breath sounds in general and especially at bases Heart: Regular rate and rhythm without S3 or rub Abdomen: Soft and nontender without palpable masses or organomegaly Extremities: Without cyanosis or edema; the left upper arm AVF is patent Neuro: No asterixis or myoclonus Results Pertinent Lab Results: Laboratory Tests 03/28 03/28 03/28 1240 0530 0530 Chemistry Sodium (137 - 145 mmol/L) 136 L Potassium (3.5 - 5.1 mmol/L) 3.6 Chloride (98 - 107 mmol/L) 98 Carbon Dioxide (22 - 30 mmol/L) 25 Anion Gap (5 - 16) 14 BUN (9 - 20 mg/dL) 34 H Creatinine (0.7 - 1.2 mg/dL) 4.2 H Estimated GFR (>60 ml/min) 14 L BUN/Creatinine Ratio (7 - 25 %) 8.1 Troponin I (<0.11 ng/ml) 0.50 *H 0.75 *H Hematology CBC w Diff NO MAN DIFF REQ WBC (4.8 - 10.8 /CUMM) 5.2 RBC (4.70 - 6.10 /CUMM) 3.49 L Hgb (14.0 - 18.0 G/DL) 9.2 L Hct (42 - 52 %) 28.2 L MCV (80.0 - 94.0 FL) 80.9 MCH (27.0 - 31.0 PG) 26.5 L RDW (11.5 - 14.5 %) 16.4 H Plt Count (130 - 400 /CUMM) 214 MPV (7.4 - 10.4 FL) 8.2 Gran % (42.2 - 75.2 %) 57.7 Lymphocytes % (20.5 - 51.1 %) 25.3 Monocytes % (1.7 - 9.3 %) 13.3 H Eosinophils % (0 - 5 %) 2.9 Basophils % (0.0 - 2.0 %) 0.8 Absolute Granulocytes (1.4 - 6.5 /CUMM) 3.0 Absolute Lymphocytes (1.2 - 3.4 /CUMM) 1.3 Absolute Monocytes (0.10 - 0.60 /CUMM) 0.7 H Absolute Eosinophils (0.0 - 0.7 /CUMM) 0.2 Absolute Basophils (0.0 - 0.2 /CUMM) 0 PUBS MCHC (33.0 - 37.0 G/DL) 32.7 L 03/27 03/27 03/27 2255 1506 1430 Chemistry Sodium (137 - 145 mmol/L) 140 Potassium (3.5 - 5.1 mmol/L) 3.7 Chloride (98 - 107 mmol/L) 97 L Carbon Dioxide (22 - 30 mmol/L) 22 Anion Gap (5 - 16) 20 H BUN (9 - 20 mg/dL) 25 H Creatinine (0.7 - 1.2 mg/dL) 3.6 H Estimated GFR (>60 ml/min) 17 L BUN/Creatinine Ratio (7 - 25 %) 6.9 L Glucose (65 - 99 mg/dL) 106 H Calcium (8.4 - 10.2 mg/dL) 8.6 Total Bilirubin (0.2 - 1.3 mg/dL) 2.0 H Direct Bilirubin (< 0.4 mg/dL) 0.5 H AST (17 - 59 U/L) 32 ALT (21 - 72 U/L) 50 Alkaline Phosphatase (< 127 U/L) 99 Troponin I (<0.11 ng/ml) 0.71 *H Cancelled 0.18 *H C-Reactive Prot, Quant (<1.0 mg/dL) Cancelled 2.6 H [id number] Pept (<125 pg/mL) Cancelled 66514 H Total Protein (6.3 - 8.2 g/dL) 7.4 Albumin (3.5 - 5.0 g/dL) 4.3 Globulin (1.9 - 4.2 gm/dL) 3.1 Albumin/Globulin Ratio (1.1 - 2.2 %) 1.4 Lipase (23 - 300 U/L) Cancelled 166 Coagulation D-Dimer High Sensitivty (0 - 243 ng/ml) 2992 H Hematology CBC w Diff NO MAN DIFF REQ WBC (4.8 - 10.8 /CUMM) 5.1 RBC (4.70 - 6.10 /CUMM) 4.00 L Hgb (14.0 - 18.0 G/DL) 10.6 L Hct (42 - 52 %) 32.1 L MCV (80.0 - 94.0 FL) 80.1 MCH (27.0 - 31.0 PG) 26.5 L RDW (11.5 - 14.5 %) 16.2 H Plt Count (130 - 400 /CUMM) 216 MPV (7.4 - 10.4 FL) 7.9 Gran % (42.2 - 75.2 %) 90.0 H Lymphocytes % (20.5 - 51.1 %) 4.4 L Monocytes % (1.7 - 9.3 %) 5.0 Eosinophils % (0 - 5 %) 0.5 Basophils % (0.0 - 2.0 %) 0.1 Absolute Granulocytes (1.4 - 6.5 /CUMM) 4.5 Absolute Lymphocytes (1.2 - 3.4 /CUMM) 0.2 L Absolute Monocytes (0.10 - 0.60 /CUMM) 0.3 Absolute Eosinophils (0.0 - 0.7 /CUMM) 0 Absolute Basophils (0.0 - 0.2 /CUMM) 0 PUBS MCHC (33.0 - 37.0 G/DL) 33.1
[2017-03-28 23:41] VITALS: BP 110/66
[2017-03-29 08:00] VITALS: BP 108/64
[2017-03-29 08:17] LABS: ABSOLUTE BASOPHIL COUNT 0 /CUMM (0.0-0.2); ABSOLUTE EOSINOPHIL COUNT 0.1 /CUMM (0.0-0.7); ABSOLUTE GRANULOCYTE CT 2.6 /CUMM (1.4-6.5); ABSOLUTE MONOCYTE COUNT 0.6 /CUMM (0.10-0.60); BASOPHIL % 0.4 % (0.0-2.0); EOSINOPHIL % 3.2 % (0-5); GRANULOCYTE % 58.9 % (42.2-75.2); HEMATOCRIT 25.4 % (42-52); MEAN CORPUSCULAR HGB 26.4 PG (27.0-31.0); MEAN CORPUSCULAR HGB CONC 32.7 G/DL (33.0-37.0); MEAN CORPUSCULAR VOLUME 80.6 FL (80.0-94.0); MEAN PLATELET VOLUME 8.6 FL (7.4-10.4); PLATELET COUNT 159 /CUMM (130-400); RBC DISTRIBUTION WIDTH 16.6 % (11.5-14.5); RED BLOOD CELL CT 3.15 /CUMM (4.70-6.10); WHITE BLOOD CELL COUNT 4.4 /CUMM (4.8-10.8)
--- NOTE | 2017-03-29 10:26 | PN- Housestaff ---
VICTORIA RUSSELL 03/29/17 1017: Subjective Follow-up For: Nausea/vomiting/abdominal pain Elevated troponins Tele-Events Since Last Visit: Sinus rhythm heart rate in the range of 60-70 Subjective: This morning patient is alert, awake and oriented. His vitals are stable. He is still complaining of nausea after eating food. Still on full liquid diet. Reports chills and sweats yesterday. Denies any vomiting and abdominal pain. Going for dialysis today. Review of Systems Constitutional: Reports: see HPI. Objective Last 24 Hrs of Vital Signs/I&O Vital Signs Date Time Temp Pulse Resp B/P B/P Pulse O2 O2 Flow FiO2 Mean Ox Delivery Rate 03/29 09 124/70 03/29 0926 124/70 03/29 0925 124/70 03/29 0925 124/70 03/29 0800 97.8 68 18 108/64 98 Room Air 03/28 2341 98.1 70 18 110/66 97 Room Air 03/28 2130 97 Room Air 03/28 2114 80 110/60 03/28 1548 99.4 80 18 96/54 94 Room Air 03/28 1043 110/60 Intake & Output 03/29 1600 03/29 0800 03/29 0000 Intake Total 100 200 Output Total Balance 100 200 Intake, Oral 100 200 Patient 205 lb Weight Weight Standing Scale Measurement Method Physical Exam General Appearance: Alert, Oriented X3, Cooperative, No Acute Distress Neck: right-sided dialysis catheter Cardiovascular: Regular Rate Lungs: Clear to Auscultation Abdomen: Normal Bowel Sounds, Soft, No Tenderness Neurological: Normal Speech, Strength at 5/5 X4 Ext, Sensation Intact, Cranial Nerves 3-12 NL Extremities: No Edema Current Medications: Current Medications Sig/Julissa Start time Last Medication Dose Route Stop Time Status Admin Acetaminophen 650 MG Q6P PRN 03/27 2200 AC PO Acetaminophen 1,000 MG Q8P PRN 03/27 2200 AC IV Albuterol Sulfate 3 ML Q4H PRN 03/28 930 AC INH Albuterol Sulfate 2 PUF Q4P PRN 03/27 2215 AC INH Alprazolam 0.5 MG BID PRN 03/27 2215 AC 03/29 PO 04/03 Aspirin Buffered 81 MG AT BEDTIME 03/28 2200 AC 03/28 PO 2114 Atorvastatin Calcium 80 MG AT BEDTIME 03/28 2200 AC 03/28 PO 2114 Budesonide/ 2 PUF BID 03/27 2211 AC 03/29 Formoterol Fumarate INH 0935 Clonidine 0.1 MG BID 03/28 1000 AC 03/29 PO 09 Clopidogrel Bisulfate 75 MG DAILY 03/28 1000 AC 03/29 PO 09 Folic Acid 1 MG DAILY 03/28 1000 AC 03/29 PO 0926 Furosemide 80 MG DAILY 03/28 1000 AC 03/29 PO 09 Heparin Sodium 5,000 UNIT Q8 03/28 0600 AC 03/29 (Porcine) SC 06 Insulin Aspart 0 TIDAC 03/28 0800 AC 03/29 SC 0934 Isosorbide 60 MG DAILY 03/28 1000 AC 03/29 Mononitrate PO 09 Levothyroxine Sodium 0.2 MG DAILY AC 03/28 0700 AC 03/29 PO 0639 Metoprolol Tartrate 100 MG DAILY 03/28 1000 AC 03/29 PO 09 Polyethylene Glycol 17 GM DAILY 03/28 1353 AC 03/29 PO 09 Prochlorperazine 10 MG Q6-PRN PRN 03/27 221 AC 03/28 IV 1207 Promethazine HCl 25 MG .STK-MED ONE 03/28 1156 DC IM 03/28 1157 Ramelteon 8 MG AT BEDTIME 03/28 2200 AC 03/28 PO 2115 Senna/Docusate Sodium 2 TAB AT BEDTIME 03/28 2200 AC 03/28 PO 2111 Sertraline HCl 100 MG DAILY 03/28 1000 AC 03/29 PO 925 Sevelamer Carbonate 1,600 MG TID 03/28 1000 AC 03/29 PO 09 Tamsulosin HCl 0.4 MG DAILY 03/28 1000 AC 03/29 PO 09 Trazodone HCl 150 MG QPM 03/28 2200 DC PO Trazodone HCl 150 MG QPM 03/280 AC 03/28 PO 2112 Last 24 Hrs of Lab/Angus Results Last 24 Hrs of Labs/Mics: Laboratory Tests 03/29/17 0717: Anion Gap 12, Estimated GFR 11 L, BUN/Creatinine Ratio 8.5, CBC w Diff NO MAN DIFF REQ, RBC 3.15 L, MCV 80.6, MCH 26.4 L, RDW 16.6 H, MPV 8.6, Gran % 58.9, Lymphocytes % 22.9, Monocytes % 14.6 H, Eosinophils % 3.2, Basophils % 0.4, Absolute Granulocytes 2.6, Absolute Lymphocytes 1.0 L, Absolute Monocytes 0.6, Absolute Eosinophils 0.1, Absolute Basophils 0, PUBS MCHC 32.7 L 03/28/17 1240: Troponin I 0.50 *H Microbiology 03/29 1000 BLOOD: Blood Culture - ORD Assessment/Plan Assessment: 67 year old Man with PMH of CAD s/p stents (Oct 2016), COPD, T2DM, neuropathy, chronic hypoxic respiratory failure on 2L O2, MILES noncompliant with CPAP, HFpEF, CKD stage 5 s/p AV fistula (January 2017), multiple admits for chest pain, dyspnea and elevated troponins, initiated on HD (TTS) via [facility] during recent admission for fluid overload (03/15-03/23). Problem list 1. Nausea/vomiting/abdominal pain. most likely Gastroenteritis. Likely viral. No fever reported so far. WBC count is normal. Blood cultures negative to date 2. Elevated troponins. Most likely secondary to chronic kidney disease and poor clearance. 3. History of end-stage renal disease on dialysis, Tuesday and Tuesday 4. Bilateral cortical and exophytic renal cysts. stable PLAN * Monitor vitals closely. Watch for fevers * Followup final blood cultures * We'll try to obtain blood cultures from dialysis catheter * Cardio consult pending * Patient is due for hemodialysis today * Advanced diet to regular today * Continue Bowel regimen * Continue home medications * Continue Physical therapy * Subcutaneous heparin for DVT prophylaxis * Full code Problem List: 1. Elevated troponin Pain Ratin Pain Location: none Pain Goal: Pain 4 or less Pain Plan: tylenol Tomorrow's Labs & Rationales: bep DVT/Prophylaxis: pharmacological Consulting Request: Consulting Specialty: Cardiology DAVE SMITH MD 03/29/17 1705: Attending MD Review Statement Attending Statement Attending MD Statement: examined this patient, discuss w/resident/PA/CLIP BAKER, agreed w/resident/PA/CLIP BAKER, reviewed EMR data (avail), discussed with nursing, discussed with case mgmt, amended to note Attending Assessment/Plan: Patient seen and examined. Resting comfortably limits in any acute distress. His been afebrile hemodynamically stable. This morning denied nausea vomiting. Denied abdominal pain. Was tolerating his meals. He was scheduled to be discharged home after hemodialysis today but developed right course and feeling of malaise. On exam lungs are clear bilaterally. Abdomen is soft and nontender. He has no peripheral edema. He has no evidence of infection at present. Images complain of right was repeat blood cultures have been sent. We will reevaluate patient after results are obtained.
--- NOTE | 2017-03-29 10:43 | Patient Discharge Instructions ---
Discharge Instructions General Discharge Information You were seen/treated for: Bacterial infection in the blood Hemodialysis for kidney disease You had these procedures: Dialysis Watch for these problems: #1 fever, associated with chills. #2 shortness of breath, chest pain, palpitations/tachycardia/racing of heart. #3 lightheadedness, dizziness. Special Instructions: #1 please follow-up with your primary care doctor within 1-2 weeks of discharge. #2 please follow-up with your kidney doctor within 1-2 weeks of discharge. Please continue to follow your hemodialysis schedule. #3 please follow-up with your real estate professional/heart doctor within 1-2 weeks of discharge. #4 please take your medications as prescribed. Diet Continue normal diet: Yes Activity Full Activity/No Limits: Yes Acute Coronary Syndrome Inclusion Criteria At DC or during hospital stay patient has or had the following: ACS DIAGNOSIS No Discharge Core Measures Meds if any: Prescribed or Continued at Discharge Meds if any: NOT Prescribed or Continued at Discharge Congestive Heart Failure Inclusion Criteria At DC or during hospital stay patient has or had the following: CHF DIAGNOSIS No Discharge Core Measures Meds if any: Prescribed or Continued at Discharge Meds if any: NOT Prescribed or Continued at Discharge Cerebrovascular accident Inclusion Criteria At DC or during hospital stay patient has or had the following: CVA/TIA Diagnosis No Discharge Core Measures Meds if any: Prescribed or Continued at Discharge Meds if any: NOT Prescribed or Continued at Discharge Venous thromboembolism Inclusion Criteria VTE Diagnosis No VTE Type NONE VTE Confirmed by (Test) NONE Discharge Core Measures - Per Current guidelines, there needs to be overlap - treatment for the first 5 days of Warfarin therapy. - If discharged on Warfarin prior to 5 days of - overlap therapy, the patient will need to be - assessed for post discharge needs including - *Post discharge parental anticoagulation - *Warfarin and/or parental anticoagulation education - *Follow up date to check INR post discharge At least 5 days overlap therapy as Inpatient No Meds if any: Prescribed or Continued at Discharge Note: Overlap Therapy is Warfarin and Anticoagulant Meds if any: NOT Prescribed or Continued at Discharge
--- NOTE | 2017-03-29 11:49 | Cons- Cardiology ---
General Information and HPI Consulting Request Date of Consult: 03/29/17 Requested By: DAVE SMITH M.D Reason for Consult: Congestive heart failure History of Present Illness: The patient is a 67-year-old male with history of coronary artery disease, status post multiple PCI, diabetes mellitus, hypertension, HFpEF, and end-stage renal disease. He was recently started on dialysis, and discharged to short- term rehabilitation. Yesterday morning he awakened with complaint of chills. He had multiple vomiting episodes. He was found to have a fever and abdominal discomfort. He is admitted for gastroenteritis. He has had no recent chest pain. No palpitations. No syncope. No orthopnea. No lightheadedness or dizziness. He continues to complain of chills. Allergies/Medications Allergies: Coded Allergies: Iodinated Contrast- Oral and IV Dye (PER PT STATES HIS KIDNEYS ARE SHOT HE IS ON DIALYSIS 03/27/17) morphine (Mild, LOOPY 01/18/17) hydromorphone (DEPRESSED RESPIRATIONS 01/18/17) Home Med List: Albuterol Sulfate (Proair Hfa) 90 MCG HFA.AER.AD 2 PUF INH Q4H PRN SOB ( Reported) Alprazolam (Xanax) 0.5 MG TABLET 1 TAB PO BID PRN ANXIETY Aspirin (Ecotrin*) 81 MG TABLET.DR 1 TAB PO QHS CAD (Reported) Atorvastatin Calcium (Lipitor) 80 MG TABLET 1 TAB PO QHS CHOLESTEROL ( Reported) Budesonide/Formoterol Fumarate (Symbicort 160-4.5 Mcg Inhaler) 160 MCG-4.5 MCG/ ACTUATION HFA.AER.AD 2 PUF INH BID COPD Rinse your mouth after using inhaler. Clonidine HCl 0.1 MG TABLET 1 TAB PO BID BP (Reported) Clopidogrel Bisulfate (Plavix) 75 MG TABLET 75 MG PO DAILY ANTIPLATELET Folic Acid 1 MG TABLET 1 TAB PO DAILY SUPPLEMENT (Reported) Furosemide (Lasix) 40 MG TABLET 80 MG PO DAILY diuresis Insulin Glargine,Hum.rec.anlog (Lantus Solostar) 100 UNIT/ML (3 ML) INSULN.PEN 15 UNITS SQ BID DIABETES Isosorbide Mononitrate (Isosorbide Mononitrate ER) 60 MG TAB.ER.24H 1 TAB PO DAILY CAD Levothyroxine Sodium (Synthroid) 200 MCG TABLET 0.2 MG PO DAILY AC THYROID Liraglutide (Victoza 3-Zeus) 0.6 MG/0.1 ML PEN.INJCTR 1.8 MG PO QHS DIABETES ( Reported) Metoprolol Tartrate 100 MG TABLET 1 TAB PO DAILY HEART (Reported) Nut.tx.impaired Renal Fxn,Soy (Nepro Carb Steady) (Unknown Strength) LIQUID 120 ML PO BID UNKNOWN (Reported) Ramelteon (Rozerem) 8 MG TABLET 1 TAB PO AT BEDTIME SLEEP HELP Sennosides/Docusate Sodium (Senna S Tablet) 8.6 MG-50 MG TABLET 2 TAB PO QHS GI (Reported) Sertraline HCl (Zoloft) 100 MG TABLET 1 TAB PO DAILY ANXIETY (Reported) Sevelamer Carbonate (Renvela) 800 MG TABLET 2 TAB PO TID ESRD (Reported) Tamsulosin HCl 0.4 MG CAP.ER.24H 1 CAP PO DAILY PROSTATE (Reported) Trazodone HCl 150 MG TABLET 1 TAB PO QPM SLEEP (Reported) Current Medications: Current Medications Sig/Julissa Start time Last Medication Dose Route Stop Time Status Admin Acetaminophen 650 MG Q6P PRN 03/27 2200 AC PO Acetaminophen 1,000 MG Q8P PRN 03/27 2200 AC IV Albuterol Sulfate 3 ML Q4H PRN 03/28 0930 AC INH Albuterol Sulfate 2 PUF Q4P PRN 03/27 2215 AC INH Alprazolam 0.5 MG BID PRN 03/27 2215 AC 03/29 PO 04/03 221 0929 Aspirin Buffered 81 MG AT BEDTIME 03/28 2200 AC 03/28 PO 2114 Atorvastatin Calcium 80 MG AT BEDTIME 03/28 220 AC 03/28 PO 2114 Budesonide/ 2 PUF BID 03/27 221 AC 03/29 Formoterol Fumarate INH 0935 Clonidine 0.1 MG BID 03/28 1000 AC 03/29 PO 924 Clopidogrel Bisulfate 75 MG DAILY 03/28 1000 AC 03/29 PO 09 Epoetin [place] 8,000 UNIT TuThSa PRN 03/29 1100 AC IV Folic Acid 1 MG DAILY 03/28 1000 AC 03/29 PO 09 Furosemide 80 MG DAILY 03/28 1000 AC 03/29 PO 09 Heparin Sodium 5,000 UNIT Q8 03/28 0600 AC 03/29 (Porcine) SC 0600 Insulin Aspart 0 TIDAC 03/28 0800 AC 03/29 SC 0934 Isosorbide 60 MG DAILY 03/28 1000 AC 03/29 Mononitrate PO 0925 Levothyroxine Sodium 0.2 MG DAILY AC 03/28 0700 AC 03/29 PO 0639 Metoprolol Tartrate 100 MG DAILY 03/28 1000 AC 03/29 PO 0926 Polyethylene Glycol 17 GM DAILY 03/28 1353 AC 03/29 PO 0927 Prochlorperazine 10 MG Q6-PRN PRN 03/27 2215 AC 03/28 IV 1207 Promethazine HCl 25 MG .STK-MED ONE 03/28 1156 DC IM 03/28 1157 Ramelteon 8 MG AT BEDTIME 03/28 2200 AC 03/28 PO 211 Senna/Docusate Sodium 2 TAB AT BEDTIME 03/28 2200 AC 03/28 PO 211 Sertraline HCl 100 MG DAILY 03/28 1000 AC 03/29 PO 0926 Sevelamer Carbonate 1,600 MG TID 03/28 1000 AC 03/29 PO 0926 Tamsulosin HCl 0.4 MG DAILY 03/28 1000 AC 03/29 PO 0926 Trazodone HCl 150 MG QPM 03/28 220 DC PO Trazodone HCl 150 MG QPM 03/28 2200 AC 03/28 PO 211 Review of Systems Review of Systems: No rash. No tremor. No melena. All other systems were reviewed, and were noted to be negative. 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 Acute Rehab Services at Home: Physical Therapy Smoking Status: Former Smoker ETOH Use: denies use Illicit Drug Use: denies illicit drug use Functional Ability ADLs Independent: dressing, eating, toileting, bathing. Ambulation: cane IADLs Independent: shopping, housework, finances, food prep, telephone, transportation , medication admin. Exam & Diagnostic Data Vital Signs and I&O Vital Signs Date Time Temp Pulse Resp B/P B/P Pulse O2 O2 Flow FiO2 Mean Ox Delivery Rate 03/29 1102 91 Room Air Room Air 03/29 0926 124/70 03/29 0926 124/70 03/29 0925 124/70 03/29 0925 124/70 03/29 0800 97.8 68 18 108/64 98 Room Air 03/28 2341 98.1 70 18 110/66 97 Room Air 03/28 2130 97 Room Air 03/28 2114 80 110/60 03/28 1548 99.4 80 18 96/54 94 Room Air Intake & Output 03/29 1600 03/29 0800 03/29 0000 03/28 1600 03/28 0800 03/28 0000 Intake Total 100 200 400 680 Output Total 300 Balance 100 200 100 680 Intake, Oral 100 200 400 680 Output, 50 Emesis Output, Urine 250 Patient 205 lb 200 lb 200 lb Weight Weight Standing Scale Standing Scale Measurement Method Physical Exam: Gen: The patient is in no acute distress HEENT: Normal nose, ears, and oropharynx. Pupils equal bilaterally. Conjunctiva normal. Neck: Supple with no JVD, no masses, and no thyromegaly Lungs: Scattered rales with normal respiratory effort Heart: RRR, S1, S2, 1/6 systolic murmur. 2+ edema, 2+ pulses in the lower extremities bilaterally Abdomen: Soft, nontender, no masses. No hepatomegaly. No splenomegaly Extremities: No clubbing or cyanosis. Normal muscle strength in the upper and lower extremities Skin: Normal skin turgor with no skin ulcers or lesions noted. Neuro: Cranial nerves intact. Sensation intact Psych: Alert and oriented 3 with appropriate affect Labs/Angus Results: Laboratory Tests 03/29 03/28 03/28 0717 1240 0530 Chemistry Sodium (137 - 145 mmol/L) 131 L Potassium (3.5 - 5.1 mmol/L) 3.5 Chloride (98 - 107 mmol/L) 94 L Carbon Dioxide (22 - 30 mmol/L) 24 Anion Gap (5 - 16) 12 BUN (9 - 20 mg/dL) 45 H Creatinine (0.7 - 1.2 mg/dL) 5.3 *H Estimated GFR (>60 ml/min) 11 L BUN/Creatinine Ratio (7 - 25 %) 8.5 Troponin I (<0.11 ng/ml) 0.50 *H 0.75 *H Hematology CBC w Diff NO MAN DIFF REQ WBC (4.8 - 10.8 /CUMM) 4.4 L RBC (4.70 - 6.10 /CUMM) 3.15 L Hgb (14.0 - 18.0 G/DL) 8.3 L Hct (42 - 52 %) 25.4 L MCV (80.0 - 94.0 FL) 80.6 MCH (27.0 - 31.0 PG) 26.4 L RDW (11.5 - 14.5 %) 16.6 H Plt Count (130 - 400 /CUMM) 159 MPV (7.4 - 10.4 FL) 8.6 Gran % (42.2 - 75.2 %) 58.9 Lymphocytes % (20.5 - 51.1 %) 22.9 Monocytes % (1.7 - 9.3 %) 14.6 H Eosinophils % (0 - 5 %) 3.2 Basophils % (0.0 - 2.0 %) 0.4 Absolute Granulocytes (1.4 - 6.5 /CUMM) 2.6 Absolute Lymphocytes (1.2 - 3.4 /CUMM) 1.0 L Absolute Monocytes (0.10 - 0.60 /CUMM) 0.6 Absolute Eosinophils (0.0 - 0.7 /CUMM) 0.1 Absolute Basophils (0.0 - 0.2 /CUMM) 0 PUBS MCHC (33.0 - 37.0 G/DL) 32.7 L 03/28 03/27 03/27 0530 2255 1506 Chemistry Sodium (137 - 145 mmol/L) 136 L Potassium (3.5 - 5.1 mmol/L) 3.6 Chloride (98 - 107 mmol/L) 98 Carbon Dioxide (22 - 30 mmol/L) 25 Anion Gap (5 - 16) 14 BUN (9 - 20 mg/dL) 34 H Creatinine (0.7 - 1.2 mg/dL) 4.2 H Estimated GFR (>60 ml/min) 14 L BUN/Creatinine Ratio (7 - 25 %) 8.1 Troponin I (<0.11 ng/ml) 0.71 *H Cancelled C-Reactive Prot, Quant Cancelled Jsu-B-Hodtdgxptjg Pept Cancelled Lipase Cancelled Hematology CBC w Diff NO MAN DIFF REQ WBC (4.8 - 10.8 /CUMM) 5.2 RBC (4.70 - 6.10 /CUMM) 3.49 L Hgb (14.0 - 18.0 G/DL) 9.2 L Hct (42 - 52 %) 28.2 L MCV (80.0 - 94.0 FL) 80.9 MCH (27.0 - 31.0 PG) 26.5 L RDW (11.5 - 14.5 %) 16.4 H Plt Count (130 - 400 /CUMM) 214 MPV (7.4 - 10.4 FL) 8.2 Gran % (42.2 - 75.2 %) 57.7 Lymphocytes % (20.5 - 51.1 %) 25.3 Monocytes % (1.7 - 9.3 %) 13.3 H Eosinophils % (0 - 5 %) 2.9 Basophils % (0.0 - 2.0 %) 0.8 Absolute Granulocytes (1.4 - 6.5 /CUMM) 3.0 Absolute Lymphocytes (1.2 - 3.4 /CUMM) 1.3 Absolute Monocytes (0.10 - 0.60 /CUMM) 0.7 H Absolute Eosinophils (0.0 - 0.7 /CUMM) 0.2 Absolute Basophils (0.0 - 0.2 /CUMM) 0 PUBS MCHC (33.0 - 37.0 G/DL) 32.7 L 03/27 1430 Chemistry Sodium (137 - 145 mmol/L) 140 Potassium (3.5 - 5.1 mmol/L) 3.7 Chloride (98 - 107 mmol/L) 97 L Carbon Dioxide (22 - 30 mmol/L) 22 Anion Gap (5 - 16) 20 H BUN (9 - 20 mg/dL) 25 H Creatinine (0.7 - 1.2 mg/dL) 3.6 H Estimated GFR (>60 ml/min) 17 L BUN/Creatinine Ratio (7 - 25 %) 6.9 L Glucose (65 - 99 mg/dL) 106 H Calcium (8.4 - 10.2 mg/dL) 8.6 Total Bilirubin (0.2 - 1.3 mg/dL) 2.0 H Direct Bilirubin (< 0.4 mg/dL) 0.5 H AST (17 - 59 U/L) 32 ALT (21 - 72 U/L) 50 Alkaline Phosphatase (< 127 U/L) 99 Troponin I (<0.11 ng/ml) 0.18 *H C-Reactive Prot, Quant (<1.0 mg/dL) 2.6 H Ehj-L-Tyxzsjnpmgn Pept (<125 pg/mL) 80621 H Total Protein (6.3 - 8.2 g/dL) 7.4 Albumin (3.5 - 5.0 g/dL) 4.3 Globulin (1.9 - 4.2 gm/dL) 3.1 Albumin/Globulin Ratio (1.1 - 2.2 %) 1.4 Lipase (23 - 300 U/L) 166 Coagulation D-Dimer High Sensitivty (0 - 243 ng/ml) 2992 H Hematology CBC w Diff NO MAN DIFF REQ WBC (4.8 - 10.8 /CUMM) 5.1 RBC (4.70 - 6.10 /CUMM) 4.00 L Hgb (14.0 - 18.0 G/DL) 10.6 L Hct (42 - 52 %) 32.1 L MCV (80.0 - 94.0 FL) 80.1 MCH (27.0 - 31.0 PG) 26.5 L RDW (11.5 - 14.5 %) 16.2 H Plt Count (130 - 400 /CUMM) 216 MPV (7.4 - 10.4 FL) 7.9 Gran % (42.2 - 75.2 %) 90.0 H Lymphocytes % (20.5 - 51.1 %) 4.4 L Monocytes % (1.7 - 9.3 %) 5.0 Eosinophils % (0 - 5 %) 0.5 Basophils % (0.0 - 2.0 %) 0.1 Absolute Granulocytes (1.4 - 6.5 /CUMM) 4.5 Absolute Lymphocytes (1.2 - 3.4 /CUMM) 0.2 L Absolute Monocytes (0.10 - 0.60 /CUMM) 0.3 Absolute Eosinophils (0.0 - 0.7 /CUMM) 0 Absolute Basophils (0.0 - 0.2 /CUMM) 0 PUBS MCHC (33.0 - 37.0 G/DL) 33.1 Diagnostic Data EKG Results EKG tracing is independently reviewed, and reveals normal sinus rhythm at 97, left atrial abnormality, incomplete left bundle-branch block, left clavicle hypertrophy CXR Results No acute pulmonary process. Other Results 1. This was a technically difficult examination. 2. Aortic sclerosis is present with no valvular stenosis or insufficiency. 3. Mitral leaflet thickening is present with anular calcification and mild to moderate mitral insufficiency with moderate left atrial enlargement. 4. There is no significant pericardial fluid present. 5. The left ventricular chamber size is normal with hypokinesia of the distal septum and apex and an ejection fraction of approximately 50-55%. 6. Minimal to mild tricuspid aind pulmonic insufficiency are present. The RV systolic pressure was not accurately assessed. Assessment/Plan Assessment/Plan Assessment: 1. Coronary artery disease, stable 2. Diabetes mellitus 3. End-stage renal disease, on hemodialysis 4. Chronic HFpEF, improved on dialysis 5. Acute gastroenteritis, likely viral 6. Elevated troponin secondary to demand ischemia, stable Plan: * Continue by mouth Lasix * Dialysis as per nephrology * Continue other cardiac medications Consult Acknowledgment - Thank you for your consult request.
--- NOTE | 2017-03-29 14:58 | PN- Nephrology ---
Assessment/Plan Assessment: 1. ESRD secondary to diabetic nephropathy - on hemodialysis Tuesday, and Tuesday 2. Transient vomiting and fever with negative blood cultures and normal WBC; nausea this a.m., rigors during dialysis 3. Elevated troponins likely secondary to demand ischemia in setting of CKD 4. 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 Hemodialysis today in progress 2. Will obtain blood cultures during dialysis 3. Continue to monitor off antibiotics Subjective Subjective: Having severe rigors during dialysis today without associated fever. He was nauseated this morning but no vomiting. Hemodialysis in progress. Objective Vital Signs and I&Os Vital Signs Date Time Temp Pulse Resp B/P B/P Pulse O2 O2 Flow FiO2 Mean Ox Delivery Rate 03/29 1102 91 Room Air Room Air 03/29 0926 124/70 03/29 0926 124/70 03/29 0925 124/70 03/29 0925 124/70 03/29 0800 97.8 68 18 108/64 98 Room Air 03/28 2341 98.1 70 18 110/66 97 Room Air 03/28 2130 97 Room Air 03/28 2114 80 110/60 03/28 1548 99.4 80 18 96/54 94 Room Air Intake & Output 03/29 1600 03/29 0400 03/28 1600 03/28 0400 03/27 1600 03/27 0400 Intake Total 050 959 5944 Output Total 300 Balance 100 200 780 Intake, Oral 213 473 1425 Output, 50 Emesis Output, Urine 250 Patient 205 lb 200 lb 200 lb 210 lb Weight Weight Standing Scale Standing Scale Standing Scale Reported by Patient Measurement Method Physical Exam: General: Well-developed white male in no acute distress Skin: No rash or jaundice HEENT: Conjunctivae pink, sclerae anicteric, mucous membranes moist Chest: Clear with diminished breath sounds in general and especially at bases Heart: Regular rate and rhythm without S3 or rub Abdomen: Soft and nontender without palpable masses or organomegaly Extremities: Without cyanosis or edema; the left upper arm AVF is patent Neuro: No asterixis or myoclonus Results Pertinent Lab Results: Laboratory Tests 03/29 03/28 03/28 0717 1240 0530 Chemistry Sodium (137 - 145 mmol/L) 131 L Potassium (3.5 - 5.1 mmol/L) 3.5 Chloride (98 - 107 mmol/L) 94 L Carbon Dioxide (22 - 30 mmol/L) 24 Anion Gap (5 - 16) 12 BUN (9 - 20 mg/dL) 45 H Creatinine (0.7 - 1.2 mg/dL) 5.3 *H Estimated GFR (>60 ml/min) 11 L BUN/Creatinine Ratio (7 - 25 %) 8.5 Troponin I (<0.11 ng/ml) 0.50 *H 0.75 *H Hematology CBC w Diff NO MAN DIFF REQ WBC (4.8 - 10.8 /CUMM) 4.4 L RBC (4.70 - 6.10 /CUMM) 3.15 L Hgb (14.0 - 18.0 G/DL) 8.3 L Hct (42 - 52 %) 25.4 L MCV (80.0 - 94.0 FL) 80.6 MCH (27.0 - 31.0 PG) 26.4 L RDW (11.5 - 14.5 %) 16.6 H Plt Count (130 - 400 /CUMM) 159 MPV (7.4 - 10.4 FL) 8.6 Gran % (42.2 - 75.2 %) 58.9 Lymphocytes % (20.5 - 51.1 %) 22.9 Monocytes % (1.7 - 9.3 %) 14.6 H Eosinophils % (0 - 5 %) 3.2 Basophils % (0.0 - 2.0 %) 0.4 Absolute Granulocytes (1.4 - 6.5 /CUMM) 2.6 Absolute Lymphocytes (1.2 - 3.4 /CUMM) 1.0 L Absolute Monocytes (0.10 - 0.60 /CUMM) 0.6 Absolute Eosinophils (0.0 - 0.7 /CUMM) 0.1 Absolute Basophils (0.0 - 0.2 /CUMM) 0 PUBS MCHC (33.0 - 37.0 G/DL) 32.7 L 03/28 03/27 03/27 0530 2255 1506 Chemistry Sodium (137 - 145 mmol/L) 136 L Potassium (3.5 - 5.1 mmol/L) 3.6 Chloride (98 - 107 mmol/L) 98 Carbon Dioxide (22 - 30 mmol/L) 25 Anion Gap (5 - 16) 14 BUN (9 - 20 mg/dL) 34 H Creatinine (0.7 - 1.2 mg/dL) 4.2 H Estimated GFR (>60 ml/min) 14 L BUN/Creatinine Ratio (7 - 25 %) 8.1 Troponin I (<0.11 ng/ml) 0.71 *H Cancelled C-Reactive Prot, Quant Cancelled Xvf-L-Tgtavfadmyo Pept Cancelled Lipase Cancelled Hematology CBC w Diff NO MAN DIFF REQ WBC (4.8 - 10.8 /CUMM) 5.2 RBC (4.70 - 6.10 /CUMM) 3.49 L Hgb (14.0 - 18.0 G/DL) 9.2 L Hct (42 - 52 %) 28.2 L MCV (80.0 - 94.0 FL) 80.9 MCH (27.0 - 31.0 PG) 26.5 L RDW (11.5 - 14.5 %) 16.4 H Plt Count (130 - 400 /CUMM) 214 MPV (7.4 - 10.4 FL) 8.2 Gran % (42.2 - 75.2 %) 57.7 Lymphocytes % (20.5 - 51.1 %) 25.3 Monocytes % (1.7 - 9.3 %) 13.3 H Eosinophils % (0 - 5 %) 2.9 Basophils % (0.0 - 2.0 %) 0.8 Absolute Granulocytes (1.4 - 6.5 /CUMM) 3.0 Absolute Lymphocytes (1.2 - 3.4 /CUMM) 1.3 Absolute Monocytes (0.10 - 0.60 /CUMM) 0.7 H Absolute Eosinophils (0.0 - 0.7 /CUMM) 0.2 Absolute Basophils (0.0 - 0.2 /CUMM) 0 PUBS MCHC (33.0 - 37.0 G/DL) 32.7 L 03/27 1430 Chemistry Sodium (137 - 145 mmol/L) 140 Potassium (3.5 - 5.1 mmol/L) 3.7 Chloride (98 - 107 mmol/L) 97 L Carbon Dioxide (22 - 30 mmol/L) 22 Anion Gap (5 - 16) 20 H BUN (9 - 20 mg/dL) 25 H Creatinine (0.7 - 1.2 mg/dL) 3.6 H Estimated GFR (>60 ml/min) 17 L BUN/Creatinine Ratio (7 - 25 %) 6.9 L Glucose (65 - 99 mg/dL) 106 H Calcium (8.4 - 10.2 mg/dL) 8.6 Total Bilirubin (0.2 - 1.3 mg/dL) 2.0 H Direct Bilirubin (< 0.4 mg/dL) 0.5 H AST (17 - 59 U/L) 32 ALT (21 - 72 U/L) 50 Alkaline Phosphatase (< 127 U/L) 99 Troponin I (<0.11 ng/ml) 0.18 *H C-Reactive Prot, Quant (<1.0 mg/dL) 2.6 H Swg-W-Bmhsbwfuogq Pept (<125 pg/mL) 29722 H Total Protein (6.3 - 8.2 g/dL) 7.4 Albumin (3.5 - 5.0 g/dL) 4.3 Globulin (1.9 - 4.2 gm/dL) 3.1 Albumin/Globulin Ratio (1.1 - 2.2 %) 1.4 Lipase (23 - 300 U/L) 166 Coagulation D-Dimer High Sensitivty (0 - 243 ng/ml) 2992 H Hematology CBC w Diff NO MAN DIFF REQ WBC (4.8 - 10.8 /CUMM) 5.1 RBC (4.70 - 6.10 /CUMM) 4.00 L Hgb (14.0 - 18.0 G/DL) 10.6 L Hct (42 - 52 %) 32.1 L MCV (80.0 - 94.0 FL) 80.1 MCH (27.0 - 31.0 PG) 26.5 L RDW (11.5 - 14.5 %) 16.2 H Plt Count (130 - 400 /CUMM) 216 MPV (7.4 - 10.4 FL) 7.9 Gran % (42.2 - 75.2 %) 90.0 H Lymphocytes % (20.5 - 51.1 %) 4.4 L Monocytes % (1.7 - 9.3 %) 5.0 Eosinophils % (0 - 5 %) 0.5 Basophils % (0.0 - 2.0 %) 0.1 Absolute Granulocytes (1.4 - 6.5 /CUMM) 4.5 Absolute Lymphocytes (1.2 - 3.4 /CUMM) 0.2 L Absolute Monocytes (0.10 - 0.60 /CUMM) 0.3 Absolute Eosinophils (0.0 - 0.7 /CUMM) 0 Absolute Basophils (0.0 - 0.2 /CUMM) 0 PUBS MCHC (33.0 - 37.0 G/DL) 33.1
[2017-03-29 17:26] VITALS: BP 98/60
[2017-03-29 22:00] VITALS: BP 110/68
[2017-03-30 08:12] VITALS: BP 124/78
--- NOTE | 2017-03-30 09:19 | PN- Housestaff ---
VICTORIA RUSSELL 03/30/17 0919: Subjective Follow-up For: Nausea/vomiting/abdominal pain Elevated troponins fever Tele-Events Since Last Visit: Sinus rhythm Heart rate 66-71 No overnight events Subjective: This morning patient is alert, awake and oriented. He is tolerating his diet well. MAXIMUM TEMPERATURE 100.4 this morning. Denies any cough, chest pain, abdominal pain, diarrhea or urinary symptoms. Review of Systems Constitutional: Reports: see HPI. Objective Last 24 Hrs of Vital Signs/I&O Vital Signs Date Time Temp Pulse Resp B/P B/P Pulse O2 O2 Flow FiO2 Mean Ox Delivery Rate 03/30 1139 69 124/78 03/30 1138 69 124/78 03/30 1138 69 124/78 03/30 1138 69 124/78 03/30 1018 97 Room Air 03/30 0812 100.4 69 20 124/78 98 Room Air 03/29 2200 98.0 79 20 110/68 95 Room Air 03/29 2055 79 110/68 03/29 1726 97.7 80 20 98/60 Intake & Output 03/30 1600 03/30 0800 03/30 0000 Intake Total 120 120 Output Total 200 Balance -80 120 Intake, Oral 120 120 Output, Urine 200 Patient 206 lb 205 lb Weight Weight Chair scale Chair scale Measurement Method Physical Exam General Appearance: Alert, Oriented X3, Cooperative, No Acute Distress Neck: Supple Cardiovascular: Regular Rate Lungs: Clear to Auscultation Abdomen: Normal Bowel Sounds, Soft, No Tenderness Extremities: No Edema Current Medications: Current Medications Sig/Julissa Start time Last Medication Dose Route Stop Time Status Admin Acetaminophen 650 MG Q6P PRN 03/27 2200 AC PO Acetaminophen 1,000 MG Q8P PRN 03/27 2200 AC IV Albuterol Sulfate 3 ML Q4H PRN 03/28 930 AC INH Albuterol Sulfate 2 PUF Q4P PRN 03/27 2215 AC INH Alprazolam 0.5 MG BID PRN 03/27 2215 AC 03/30 PO 04/03 2214 114 Aspirin Buffered 81 MG AT BEDTIME 03/28 2200 AC 03/29 PO 2049 Atorvastatin Calcium 80 MG AT BEDTIME 03/28 2200 AC 03/29 PO 2049 Budesonide/ 2 PUF BID 03/27 2211 AC 03/30 Formoterol Fumarate INH 1140 Clonidine 0.1 MG BID 03/28 1000 AC 03/30 PO 1138 Clopidogrel Bisulfate 75 MG DAILY 03/28 1000 AC 03/30 PO 1139 Epoetin [place] 8,000 UNIT TuThSa PRN 03/29 1100 AC IV Folic Acid 1 MG DAILY 03/28 1000 AC 03/30 PO 1138 Furosemide 80 MG DAILY 03/28 1000 AC 03/30 PO 1138 Heparin Sodium 5,000 UNIT Q8 03/28 0600 AC 03/30 (Porcine) SC 1137 Insulin Aspart 1 UNITS ONCE ONE 03/29 2115 DC 03/29 SC 03/29 Insulin Aspart 0 TIDAC 03/28 0800 AC 03/30 SC 1148 Isosorbide 60 MG DAILY 03/28 1000 AC 03/30 Mononitrate PO 1138 Levothyroxine Sodium 0.2 MG DAILY AC 03/28 0700 AC 03/30 PO 0547 Metoprolol Tartrate 100 MG DAILY 03/28 1000 AC 03/30 PO 1139 Polyethylene Glycol 17 GM DAILY 03/28 1353 AC 03/30 PO 1139 Prochlorperazine 10 MG Q6-PRN PRN 03/27 2215 AC 03/30 IV 1425 Ramelteon 8 MG AT BEDTIME 03/28 2200 AC 03/29 PO 2049 Senna/Docusate Sodium 2 TAB AT BEDTIME 03/28 2200 AC 03/29 PO 2049 Sertraline HCl 100 MG DAILY 03/28 1000 AC 03/30 PO 1137 Sevelamer Carbonate 1,600 MG TID 03/28 1000 AC 03/30 PO 1139 Tamsulosin HCl 0.4 MG DAILY 03/28 1000 AC 03/30 PO 1138 Trazodone HCl 150 MG QPM 03/28 2200 AC 03/29 PO 2049 Last 24 Hrs of Lab/Angus Results Last 24 Hrs of Labs/Mics: Laboratory Tests 03/30/17 0900: Anion Gap 11, Estimated GFR 16 L, BUN/Creatinine Ratio 6.7 L, CBC w Diff NO MAN DIFF REQ, RBC 3.33 L, MCV 81.1, MCH 26.5 L, RDW 17.1 H, MPV 9.2, Gran % 67.8, Lymphocytes % 18.8 L, Monocytes % 10.7 H, Eosinophils % 2.3, Basophils % 0.4, Absolute Granulocytes 2.3, Absolute Lymphocytes 0.6 L, Absolute Monocytes 0.4, Absolute Eosinophils 0.1, Absolute Basophils 0, PUBS MCHC 32.7 L Microbiology 03/29 1515 BLOOD: Blood Culture - RES 03/29 1505 BLOOD: Blood Culture - RES Assessment/Plan Assessment: 67 year old Man with PMH of CAD s/p stents (Oct 2016), COPD, T2DM, neuropathy, chronic hypoxic respiratory failure on 2L O2, MILES noncompliant with CPAP, HFpEF, CKD stage 5 s/p AV fistula (January 2017), multiple admits for chest pain, dyspnea and elevated troponins, initiated on HD (TTS) via [facility] during recent admission for fluid overload (03/15-03/23). Problem list 1. Nausea/vomiting/abdominal pain. most likely Gastroenteritis. Likely viral. 2. Elevated troponins. Most likely secondary to chronic kidney disease and poor clearance. 3. History of end-stage renal disease on dialysis, Tuesday and Tuesday 4. Bilateral cortical and exophytic renal cysts. stable 5. fever. etiology unclear. No obvious source of infection PLAN * Monitor vitals closely. * Followup final blood cultures * Cardio consult appreciated * Patient is due for hemodialysis tomorrow * Continue Bowel regimen * Continue home medications * Continue Physical therapy * Anticipated discharge for tomorrow * Continue to monitor off antibiotics * Subcutaneous heparin for DVT prophylaxis * Full code Problem List: 1. 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 Resting comfortably and not in any acute distress. No events on telemetry. He is alert and oriented 3. Denies nausea vomiting. Denies abdominal pain. Denies diarrhea. Earlier on this morning he had a temperature 100.4. He however does not appear toxic. Is hemodynamically stable. He is currently afebrile. Denies cough or shortness of breath. Denies abdominal pain. Denies diarrhea. On examination he has no rash on his body. No jugular venous distention. Lungs are clear to auscultation bilaterally. Abdomen is soft and nontender. He has no peripheral edema. Blood cultures from admission and blood cultures repeated yesterday are negative. We'll continue to monitor him clinically for any obvious source of infection. If he remains afebrile overnight he'll be discharged home after hemodialysis tomorrow.
--- NOTE | 2017-03-30 10:03 | PN- Cardiology ---
Subjective Subjective: Patient seen and examined, he slept well overnight but they changed the bedding twice because of profound sweating, he still feel nauseous but no more vomiting, he denies any chest pain, shortness of breath, palpitation, fever, chills, and there is no change in urinary or bowel habits. Vitals is a stable except for low-grade fever today at a.m. 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 EENTM: Reports: no symptoms. Cardiovascular: Reports: no symptoms. Respiratory: Reports: no symptoms. Gastrointestinal: Reports: nausea. Genitourinary: Reports: no symptoms. Musculoskeletal: Reports: no symptoms. Skin: Reports: no symptoms. Neurological/Psychological: Reports: no symptoms. Hematologic/Endocrine: Reports: no symptoms. Immunologic/Allergic: Reports: no symptoms. All Other Systems: Reviewed and Negative Objective Vital Signs and I&Os Vital Signs Date Time Temp Pulse Resp B/P B/P Pulse O2 O2 Flow FiO2 Mean Ox Delivery Rate 03/30 0812 100.4 69 20 124/78 98 Room Air 03/29 2200 98.0 79 20 110/68 95 Room Air 03/29 2055 79 110/68 03/29 1726 97.7 80 20 98/60 03/29 1102 91 Room Air Room Air Intake & Output 03/30 1600 03/30 0800 03/30 0000 03/29 1600 03/29 0800 03/29 0000 Intake Total 120 120 400 100 200 Output Total 200 100 Balance -80 120 300 100 200 Intake, Oral 120 120 400 100 200 Number 2 Bowel Movements Output, Urine 200 100 Patient 206 lb 205 lb 205 lb Weight Weight Chair scale Chair scale Standing Scale Measurement Method Physical Exam General Appearance: well developed/nourished, no apparent distress, alert, anxious, comfortable Head: atraumatic, normal appearance Ears, Nose, Throat: normal pharynx, normal ENT inspection Neck: normal inspection, supple, full range of motion Respiratory: normal breath sounds, chest non-tender, no respiratory distress, bibasilar crackles Cardiovascular: regular rate/rhythm, normal peripheral pulses, no edema Peripheral Pulses: 3+ dorsalis pedis (R), 3+ dorsalis pedis (L) Abdomen: normal bowel sounds, soft, non-tender Extremities: normal inspection, no edema Current Medications: Current Medications Sig/Julissa Start time Last Medication Dose Route Stop Time Status Admin Acetaminophen 650 MG Q6P PRN 03/27 2200 AC PO Acetaminophen 1,000 MG Q8P PRN 03/27 2200 AC IV Albuterol Sulfate 3 ML Q4H PRN 03/28 0930 AC INH Albuterol Sulfate 2 PUF Q4P PRN 03/27 2215 AC INH Alprazolam 0.5 MG BID PRN 03/27 2215 AC 03/29 PO 04/03 [id number] Aspirin Buffered 81 MG AT BEDTIME 03/28 2200 AC 03/29 PO 2049 Atorvastatin Calcium 80 MG AT BEDTIME 03/28 2200 AC 03/29 PO 2049 Budesonide/ 2 PUF BID 03/27 2211 AC 03/29 Formoterol Fumarate INH 2048 Clonidine 0.1 MG BID 03/28 1000 AC 03/29 PO 2054 Clopidogrel Bisulfate 75 MG DAILY 03/28 1000 AC 03/29 PO 09 Epoetin [place] 8,000 UNIT TuThSa PRN 03/29 1100 AC IV Folic Acid 1 MG DAILY 03/28 1000 AC 03/29 PO 0926 Furosemide 80 MG DAILY 03/28 1000 AC 03/29 PO 0926 Heparin Sodium 5,000 UNIT Q8 03/28 06 AC 03/30 (Porcine) SC 0547 Insulin Aspart 1 UNITS ONCE ONE 03/29 2115 DC 03/29 SC 03/29 Insulin Aspart 0 TIDAC 03/28 0800 AC 03/29 SC 0934 Isosorbide 60 MG DAILY 03/28 1000 AC 03/29 Mononitrate PO 0925 Levothyroxine Sodium 0.2 MG DAILY AC 03/28 0700 AC 03/30 PO 0547 Metoprolol Tartrate 100 MG DAILY 03/28 1000 AC 03/29 PO 0926 Polyethylene Glycol 17 GM DAILY 03/28 1353 AC 03/29 PO 27 Prochlorperazine 10 MG Q6-PRN PRN 03/27 221 AC 03/29 IV 203 Ramelteon 8 MG AT BEDTIME 03/28 2200 AC 03/29 PO 2049 Senna/Docusate Sodium 2 TAB AT BEDTIME 03/28 2200 AC 03/29 PO 2049 Sertraline HCl 100 MG DAILY 03/28 1000 AC 03/29 PO 925 Sevelamer Carbonate 1,600 MG TID 03/28 1000 AC 03/29 PO 2048 Tamsulosin HCl 0.4 MG DAILY 03/28 1000 AC 03/29 PO 09 Trazodone HCl 150 MG QPM 03/28 2200 AC 03/29 PO 2049 Results Last 48 Hrs of Labs/Mics: Laboratory Tests 03/30/17 0900: Sodium Pending, Potassium Pending, Chloride Pending, Carbon Dioxide Pending, Anion Gap Pending, BUN Pending, Creatinine Pending, BUN/Creatinine Ratio Pending , CBC w Diff Pending, WBC Pending, RBC Pending, Hgb Pending, Hct Pending, MCV Pending, MCH Pending, RDW Pending, Plt Count Pending, MPV Pending, PUBS MCHC Pending 03/29/17 0717: Anion Gap 12, Estimated GFR 11 L, BUN/Creatinine Ratio 8.5, CBC w Diff NO MAN DIFF REQ, RBC 3.15 L, MCV 80.6, MCH 26.4 L, RDW 16.6 H, MPV 8.6, Gran % 58.9, Lymphocytes % 22.9, Monocytes % 14.6 H, Eosinophils % 3.2, Basophils % 0.4, Absolute Granulocytes 2.6, Absolute Lymphocytes 1.0 L, Absolute Monocytes 0.6, Absolute Eosinophils 0.1, Absolute Basophils 0, PUBS MCHC 32.7 L 03/28/17 1240: Troponin I 0.50 *H Recent Imaging Studies: CXR: No acute pulmonary process. Abdomen/pelvis CT: No acute intra-abdominal process seen. Minimal constipation without obstruction. Bilateral cortical and exophytic renal cysts are stable. Multiple renal vascular hilar calcifications are noted. Small stones cannot be excluded. However there is no hydronephrosis. Small nodule right lower lobe. Bilateral small pleural effusions slightly greater on the left. Recommend CT chest correlation. There is bandlike atelectasis right middle lobe. Small lateral abdominal wall lipoma. It is stable compared to previous study. Assessment/Plan Assessment/Plan 67 yo M with h/o CAD s/p stents (Oct 2016), COPD, T2DM, neuropathy, chronic hypoxic respiratory failure on 2L O2, MILES noncompliant with CPAP, HFpEF, CKD stage 5 s/p AV fistula (January 2017), multiple admits for chest pain, dyspnea and elevated troponins, initiated on HD (TTS) via [facility] during recent admission for fluid voerload (03/15-03/23) and then discharged to [facility], is brought in for evaluation of shaking chills, fever of 101.7, nausea, vomiting, lower abdominal cramping and dyspnea. Admitted for viral gastroenteritis and found to have elevated troponin with no new EKG changes. Assessment: #Viral gastroenteritis #Elevated troponin which is most likely related to demand ischemia in the setting of chronic kidney disease #CHFrEF #CKD stage V on dialysis #Chronic hypoxic respiratory failure related to COPD/obstructive sleep apnea on 2 L oxygen Plan: * Continue to trend troponin until peaked * Continue by mouth Lasix 80 mg daily * Continue other cardiac medications which includes: Atorvastatin 80 mg by mouth daily, metoprolol 100 mg by mouth daily, Plavix 75 mg by mouth daily, Imdur 60 mg by mouth daily and aspirin 81 mg daily. * HD per nephrology Continue telemetry? Yes Problem List: 1. Congestive heart failure with preserved left ventricular function, NYHA class 1 2. COPD (chronic obstructive pulmonary disease) 3. ESRD (end stage renal disease) 4. Gastroenteritis
[2017-03-30 10:04] LABS: ABSOLUTE BASOPHIL COUNT 0 /CUMM (0.0-0.2); ABSOLUTE EOSINOPHIL COUNT 0.1 /CUMM (0.0-0.7); ABSOLUTE GRANULOCYTE CT 2.3 /CUMM (1.4-6.5); ABSOLUTE LYMPH COUNT 0.6 /CUMM (1.2-3.4); ABSOLUTE MONOCYTE COUNT 0.4 /CUMM (0.10-0.60); BASOPHIL % 0.4 % (0.0-2.0); EOSINOPHIL % 2.3 % (0-5); GRANULOCYTE % 67.8 % (42.2-75.2); MEAN CORPUSCULAR HGB 26.5 PG (27.0-31.0); MEAN CORPUSCULAR HGB CONC 32.7 G/DL (33.0-37.0); MEAN CORPUSCULAR VOLUME 81.1 FL (80.0-94.0); MEAN PLATELET VOLUME 9.2 FL (7.4-10.4); PLATELET COUNT 128 /CUMM (130-400); RBC DISTRIBUTION WIDTH 17.1 % (11.5-14.5); RED BLOOD CELL CT 3.33 /CUMM (4.70-6.10); WHITE BLOOD CELL COUNT 3.4 /CUMM (4.8-10.8)
--- NOTE | 2017-03-30 11:02 | PN- Nephrology ---
Assessment/Plan Assessment: 1. ESRD secondary to diabetic nephropathy - on hemodialysis Tuesday, and Tuesday 2. Transient vomiting and fever with negative blood cultures and normal WBC, rigors during dialysis yesterday, none since then. 3. Elevated troponins likely secondary to demand ischemia in setting of CKD 4. 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 Hemodialysis scheduled for tomorrow 2. Consider discharge after dialysis tomorrow if stable 3. Continue to monitor off antibiotics Subjective Subjective: Patient looks and feels well. He had no further rigors or any other symptoms after dialysis yesterday. He did have a low grade temperature this morning of 100.4 and on questioning he had some night sweats last evening. Objective Vital Signs and I&Os Vital Signs Date Time Temp Pulse Resp B/P B/P Pulse O2 O2 Flow FiO2 Mean Ox Delivery Rate 03/30 1018 97 Room Air 03/30 0812 100.4 69 20 124/78 98 Room Air 03/29 2200 98.0 79 20 110/68 95 Room Air 03/29 2055 79 110/68 03/29 1726 97.7 80 20 98/60 03/29 1102 91 Room Air Room Air Intake & Output 03/30 1600 03/30 0400 03/29 1600 03/29 0400 03/28 1600 03/28 0400 Intake Total 120 120 173 019 8712 Output Total 200 100 300 Balance -80 120 400 200 780 Intake, Oral 120 120 982 828 7014 Number 2 Bowel Movements Output, 50 Emesis Output, Urine 200 100 250 Patient 206 lb 205 lb 205 lb 200 lb 200 lb Weight Weight Chair scale Chair scale Standing Scale Standing Scale Standing Scale Measurement Method Physical Exam: General: Well-developed white male in no acute distress Skin: No rash or jaundice HEENT: Conjunctivae pink, sclerae anicteric, mucous membranes moist Chest: Clear with diminished breath sounds in general and especially at bases Heart: Regular rate and rhythm without S3 or rub Abdomen: Soft and nontender without palpable masses or organomegaly Extremities: Without cyanosis or edema; the left upper arm AVF is patent Neuro: No asterixis or myoclonus Current Medications: Current Medications Sig/Julissa Start time Last Medication Dose Route Stop Time Status Admin Acetaminophen 650 MG Q6P PRN 03/27 2200 AC PO Acetaminophen 1,000 MG Q8P PRN 03/27 2200 AC IV Albuterol Sulfate 3 ML Q4H PRN 03/28 0930 AC INH Albuterol Sulfate 2 PUF Q4P PRN 03/27 221 AC INH Alprazolam 0.5 MG BID PRN 03/27 2215 AC 03/29 PO 04/03 Aspirin Buffered 81 MG AT BEDTIME 03/28 220 AC 03/29 PO 2049 Atorvastatin Calcium 80 MG AT BEDTIME 03/28 220 AC 03/29 PO 2049 Budesonide/ 2 PUF BID 03/27 221 AC 03/29 Formoterol Fumarate INH 2048 Clonidine 0.1 MG BID 03/28 1000 AC 03/29 PO 2054 Clopidogrel Bisulfate 75 MG DAILY 03/28 1000 AC 03/29 PO 09 Epoetin [place] 8,000 UNIT TuThSa PRN 03/29 1100 AC IV Folic Acid 1 MG DAILY 03/28 1000 AC 03/29 PO 09 Furosemide 80 MG DAILY 03/28 1000 AC 03/29 PO 09 Heparin Sodium 5,000 UNIT Q8 03/28 0600 AC 03/30 (Porcine) SC 0547 Insulin Aspart 1 UNITS ONCE ONE 03/29 2115 DC 03/29 SC 03/296 2115 Insulin Aspart 0 TIDAC 03/28 0800 AC 03/29 SC 0934 Isosorbide 60 MG DAILY 03/28 1000 AC 03/29 Mononitrate PO 924 Levothyroxine Sodium 0.2 MG DAILY AC 03/28 0700 AC 03/30 PO 0547 Metoprolol Tartrate 100 MG DAILY 03/28 1000 AC 03/29 PO 0926 Polyethylene Glycol 17 GM DAILY 03/28 1353 AC 03/29 PO 0927 Prochlorperazine 10 MG Q6-PRN PRN 03/27 221 AC 03/29 IV 2039 Ramelteon 8 MG AT BEDTIME 03/28 2200 AC 03/29 PO 2049 Senna/Docusate Sodium 2 TAB AT BEDTIME 03/28 2200 AC 03/29 PO 2049 Sertraline HCl 100 MG DAILY 03/28 1000 AC 03/29 PO 925 Sevelamer Carbonate 1,600 MG TID 03/28 1000 AC 03/29 PO 2048 Tamsulosin HCl 0.4 MG DAILY 03/28 1000 AC 03/29 PO 925 Trazodone HCl 150 MG QPM 03/28 2200 AC 03/29 PO 2049 Results Pertinent Lab Results: Lobe rales and is more lower abnormal lesions. There is Laboratory Tests 03/30 03/29 0900 0717 Chemistry Sodium (137 - 145 mmol/L) 132 L 131 L Potassium (3.5 - 5.1 mmol/L) 4.1 3.5 Chloride (98 - 107 mmol/L) 95 L 94 L Carbon Dioxide (22 - 30 mmol/L) 26 24 Anion Gap (5 - 16) 11 12 BUN (9 - 20 mg/dL) 26 H 45 H Creatinine (0.7 - 1.2 mg/dL) 3.9 H 5.3 *H Estimated GFR (>60 ml/min) 16 L 11 L BUN/Creatinine Ratio (7 - 25 %) 6.7 L 8.5 Hematology CBC w Diff NO MAN DIFF REQ NO MAN DIFF REQ WBC (4.8 - 10.8 /CUMM) 3.4 L 4.4 L RBC (4.70 - 6.10 /CUMM) 3.33 L 3.15 L Hgb (14.0 - 18.0 G/DL) 8.8 L 8.3 L Hct (42 - 52 %) 27.0 L 25.4 L MCV (80.0 - 94.0 FL) 81.1 80.6 MCH (27.0 - 31.0 PG) 26.5 L 26.4 L RDW (11.5 - 14.5 %) 17.1 H 16.6 H Plt Count (130 - 400 /CUMM) 128 L 159 MPV (7.4 - 10.4 FL) 9.2 8.6 Gran % (42.2 - 75.2 %) 67.8 58.9 Lymphocytes % (20.5 - 51.1 %) 18.8 L 22.9 Monocytes % (1.7 - 9.3 %) 10.7 H 14.6 H Eosinophils % (0 - 5 %) 2.3 3.2 Basophils % (0.0 - 2.0 %) 0.4 0.4 Absolute Granulocytes (1.4 - 6.5 /CUMM) 2.3 2.6 Absolute Lymphocytes (1.2 - 3.4 /CUMM) 0.6 L 1.0 L Absolute Monocytes (0.10 - 0.60 /CUMM) 0.4 0.6 Absolute Eosinophils (0.0 - 0.7 /CUMM) 0.1 0.1 Absolute Basophils (0.0 - 0.2 /CUMM) 0 0 PUBS MCHC (33.0 - 37.0 G/DL) 32.7 L 32.7 L 03/28 03/28 03/28 1240 0530 0530 Chemistry Sodium (137 - 145 mmol/L) 136 L Potassium (3.5 - 5.1 mmol/L) 3.6 Chloride (98 - 107 mmol/L) 98 Carbon Dioxide (22 - 30 mmol/L) 25 Anion Gap (5 - 16) 14 BUN (9 - 20 mg/dL) 34 H Creatinine (0.7 - 1.2 mg/dL) 4.2 H Estimated GFR (>60 ml/min) 14 L BUN/Creatinine Ratio (7 - 25 %) 8.1 Troponin I (<0.11 ng/ml) 0.50 *H 0.75 *H Hematology CBC w Diff NO MAN DIFF REQ WBC (4.8 - 10.8 /CUMM) 5.2 RBC (4.70 - 6.10 /CUMM) 3.49 L Hgb (14.0 - 18.0 G/DL) 9.2 L Hct (42 - 52 %) 28.2 L MCV (80.0 - 94.0 FL) 80.9 MCH (27.0 - 31.0 PG) 26.5 L RDW (11.5 - 14.5 %) 16.4 H Plt Count (130 - 400 /CUMM) 214 MPV (7.4 - 10.4 FL) 8.2 Gran % (42.2 - 75.2 %) 57.7 Lymphocytes % (20.5 - 51.1 %) 25.3 Monocytes % (1.7 - 9.3 %) 13.3 H Eosinophils % (0 - 5 %) 2.9 Basophils % (0.0 - 2.0 %) 0.8 Absolute Granulocytes (1.4 - 6.5 /CUMM) 3.0 Absolute Lymphocytes (1.2 - 3.4 /CUMM) 1.3 Absolute Monocytes (0.10 - 0.60 /CUMM) 0.7 H Absolute Eosinophils (0.0 - 0.7 /CUMM) 0.2 Absolute Basophils (0.0 - 0.2 /CUMM) 0 PUBS MCHC (33.0 - 37.0 G/DL) 32.7 L 03/27 03/27 03/27 2255 1506 1430 Chemistry Sodium (137 - 145 mmol/L) 140 Potassium (3.5 - 5.1 mmol/L) 3.7 Chloride (98 - 107 mmol/L) 97 L Carbon Dioxide (22 - 30 mmol/L) 22 Anion Gap (5 - 16) 20 H BUN (9 - 20 mg/dL) 25 H Creatinine (0.7 - 1.2 mg/dL) 3.6 H Estimated GFR (>60 ml/min) 17 L BUN/Creatinine Ratio (7 - 25 %) 6.9 L Glucose (65 - 99 mg/dL) 106 H Calcium (8.4 - 10.2 mg/dL) 8.6 Total Bilirubin (0.2 - 1.3 mg/dL) 2.0 H Direct Bilirubin (< 0.4 mg/dL) 0.5 H AST (17 - 59 U/L) 32 ALT (21 - 72 U/L) 50 Alkaline Phosphatase (< 127 U/L) 99 Troponin I (<0.11 ng/ml) 0.71 *H Cancelled 0.18 *H C-Reactive Prot, Quant (<1.0 mg/dL) Cancelled 2.6 H [id number] Pept (<125 pg/mL) Cancelled 79152 H Total Protein (6.3 - 8.2 g/dL) 7.4 Albumin (3.5 - 5.0 g/dL) 4.3 Globulin (1.9 - 4.2 gm/dL) 3.1 Albumin/Globulin Ratio (1.1 - 2.2 %) 1.4 Lipase (23 - 300 U/L) Cancelled 166 Coagulation D-Dimer High Sensitivty (0 - 243 ng/ml) 2992 H Hematology CBC w Diff NO MAN DIFF REQ WBC (4.8 - 10.8 /CUMM) 5.1 RBC (4.70 - 6.10 /CUMM) 4.00 L Hgb (14.0 - 18.0 G/DL) 10.6 L Hct (42 - 52 %) 32.1 L MCV (80.0 - 94.0 FL) 80.1 MCH (27.0 - 31.0 PG) 26.5 L RDW (11.5 - 14.5 %) 16.2 H Plt Count (130 - 400 /CUMM) 216 MPV (7.4 - 10.4 FL) 7.9 Gran % (42.2 - 75.2 %) 90.0 H Lymphocytes % (20.5 - 51.1 %) 4.4 L Monocytes % (1.7 - 9.3 %) 5.0 Eosinophils % (0 - 5 %) 0.5 Basophils % (0.0 - 2.0 %) 0.1 Absolute Granulocytes (1.4 - 6.5 /CUMM) 4.5 Absolute Lymphocytes (1.2 - 3.4 /CUMM) 0.2 L Absolute Monocytes (0.10 - 0.60 /CUMM) 0.3 Absolute Eosinophils (0.0 - 0.7 /CUMM) 0 Absolute Basophils (0.0 - 0.2 /CUMM) 0 PUBS MCHC (33.0 - 37.0 G/DL) 33.1
--- NOTE | 2017-03-30 11:35 | PN- Cardiology ---
Subjective Subjective: The patient appears stable from a cardiac standpoint. No new cardiac symptoms or issues. Objective Vital Signs and I&Os Vital Signs Date Time Temp Pulse Resp B/P B/P Pulse O2 O2 Flow FiO2 Mean Ox Delivery Rate 03/30 1018 97 Room Air 03/30 0812 100.4 69 20 124/78 98 Room Air 03/290 98.0 79 20 110/68 95 Room Air 03/295 79 110/68 03/29 1726 97.7 80 20 98/60 Intake & Output 03/30 1600 03/30 0800 03/30 0000 03/29 1600 03/29 0800 03/29 0000 Intake Total 120 120 400 100 200 Output Total 200 100 Balance -80 120 300 100 200 Intake, Oral 120 120 400 100 200 Number 2 Bowel Movements Output, Urine 200 100 Patient 206 lb 205 lb 205 lb Weight Weight Chair scale Chair scale Standing Scale Measurement Method Physical Exam: General Appearance Alert, Oriented X3, Cooperative, No Acute Distress Skin Bao cath on right upper chest, no signs of infection in surrounding skin HEENT Atraumatic, PERRLA, EOMI, Mucous Membr. moist/pink Neck Supple, JVP normal, carotid shows normal Lymphatic Cervical nl Cardiovascular Regular Rate, Normal S1, Normal S2, 1/6 systolic murmur Lungs scattered rhonchi Abdomen Normal Bowel Sounds, Soft, mild guarding, tenderness to palpation in LLQ Extremities No Edema, Normal Pulses Current Medications: Current Medications Sig/Julissa Start time Last Medication Dose Route Stop Time Status Admin Acetaminophen 650 MG Q6P PRN 03/27 2200 AC PO Acetaminophen 1,000 MG Q8P PRN 03/27 2200 AC IV Albuterol Sulfate 3 ML Q4H PRN 03/28 930 AC INH Albuterol Sulfate 2 PUF Q4P PRN 03/27 2215 AC INH Alprazolam 0.5 MG BID PRN 03/27 2215 AC 03/29 PO 04/03 Aspirin Buffered 81 MG AT BEDTIME 03/28 2200 AC 03/29 PO 2049 Atorvastatin Calcium 80 MG AT BEDTIME 03/28 2200 AC 03/29 PO 2049 Budesonide/ 2 PUF BID 03/27 2211 AC 03/29 Formoterol Fumarate INH 2048 Clonidine 0.1 MG BID 03/28 1000 AC 03/29 PO 2054 Clopidogrel Bisulfate 75 MG DAILY 03/28 1000 AC 03/29 PO 09 Epoetin [place] 8,000 UNIT TuThSa PRN 03/29 1100 AC IV Folic Acid 1 MG DAILY 03/28 1000 AC 03/29 PO 09 Furosemide 80 MG DAILY 03/28 1000 AC 03/29 PO 09 Heparin Sodium 5,000 UNIT Q8 03/28 0600 AC 03/30 (Porcine) SC 0547 Insulin Aspart 1 UNITS ONCE ONE 03/29 2115 DC 03/29 SC 03/29 Insulin Aspart 0 TIDAC 03/28 0800 AC 03/29 SC 0934 Isosorbide 60 MG DAILY 03/28 1000 AC 03/29 Mononitrate PO 09 Levothyroxine Sodium 0.2 MG DAILY AC 03/28 0700 AC 03/30 PO 0547 Metoprolol Tartrate 100 MG DAILY 03/28 1000 AC 03/29 PO 09 Polyethylene Glycol 17 GM DAILY 03/28 1353 AC 03/29 PO 0927 Prochlorperazine 10 MG Q6-PRN PRN 03/27 2215 AC 03/29 IV 203 Ramelteon 8 MG AT BEDTIME 03/28 2200 AC 03/29 PO 2049 Senna/Docusate Sodium 2 TAB AT BEDTIME 03/28 2200 AC 03/29 PO 2049 Sertraline HCl 100 MG DAILY 03/28 1000 AC 03/29 PO 925 Sevelamer Carbonate 1,600 MG TID 03/28 1000 AC 03/29 PO 2048 Tamsulosin HCl 0.4 MG DAILY 03/28 1000 AC 03/29 PO 09 Trazodone HCl 150 MG QPM 03/28 2200 AC 03/29 PO 2049 Results Last 48 Hrs of Labs/Mics: Laboratory Tests 03/30/17 0900: Anion Gap 11, Estimated GFR 16 L, BUN/Creatinine Ratio 6.7 L, CBC w Diff NO MAN DIFF REQ, RBC 3.33 L, MCV 81.1, MCH 26.5 L, RDW 17.1 H, MPV 9.2, Gran % 67.8, Lymphocytes % 18.8 L, Monocytes % 10.7 H, Eosinophils % 2.3, Basophils % 0.4, Absolute Granulocytes 2.3, Absolute Lymphocytes 0.6 L, Absolute Monocytes 0.4, Absolute Eosinophils 0.1, Absolute Basophils 0, PUBS MCHC 32.7 L 03/29/17 0717: Anion Gap 12, Estimated GFR 11 L, BUN/Creatinine Ratio 8.5, CBC w Diff NO MAN DIFF REQ, RBC 3.15 L, MCV 80.6, MCH 26.4 L, RDW 16.6 H, MPV 8.6, Gran % 58.9, Lymphocytes % 22.9, Monocytes % 14.6 H, Eosinophils % 3.2, Basophils % 0.4, Absolute Granulocytes 2.6, Absolute Lymphocytes 1.0 L, Absolute Monocytes 0.6, Absolute Eosinophils 0.1, Absolute Basophils 0, PUBS MCHC 32.7 L 03/28/17 1240: Troponin I 0.50 *H Assessment/Plan Assessment/Plan Assessment: #Viral gastroenteritis #Elevated troponin which is most likely related to demand ischemia in the setting of chronic kidney disease #CHFrEF #CKD stage V on dialysis #Chronic hypoxic respiratory failure related to COPD/obstructive sleep apnea on 2 L oxygen Recommendations: -Continue as outlined by the medical staff. -Trend troponin - If the troponin increases repeat echocardiogram to reassess LV wall motion. Continue telemetry? Yes
[2017-03-30 16:54] VITALS: BP 98/60
[2017-03-30 18:00] VITALS: BP 80/48
--- NOTE | 2017-03-30 18:00 | NUR ---
PATIENT REPORTS WEAKNESS/DIZZINESS UPON STANDING TO ATTEMPT TO GET TO TOILET; PATIENT NOW DIAPHORETIC; BP 80/48 FINGERSTICK 203; PER DR. TAMMI BUTLER BOLUS TOTAL 500MLS; PATIENT PLACED IN [place] BUT NOT TOLERATING DUE TO HEADACHE; MD AWARE WILL MONITOR
[2017-03-30 19:00] VITALS: BP 90/60
--- NOTE | 2017-03-30 19:00 | NUR ---
RECHECK BP 90/60 -DR LUIGI FRANCIS NOTIFIED; PER MD BOLUS ANOTHER 500MLS IVFL; WILL MONITOR
--- NOTE | 2017-03-30 20:18 | Event Note ---
Event Note Event Note: I was called by the nurse that the patient has having low blood pressure, 70/60 and generalized sweating. I went at the bedside monitor the blood pressure by myself, which was very low 78/60. We gave 500 mL IV bolus, take the blood sugar which was 203, did EKG which showed no any new changes and order Troponin state. After 500 bolus, the blood pressure was up to 98/60.Later he patient also complained of severe headache, although neurological examination was normal, so we gave IV, acetaminophen. We signed out to night team to follow-up with troponin and if needed, call cardiology consult.
--- NOTE | 2017-03-30 20:23 | Event Note ---
Event Note Event Note: Notified by RN of critical value on Mr. Dodd. Troponin increased from 0.5 to 2.76. Patient completely asymptomatic, including no chest pain, palpitations, shortness of breath or any other headache. EKG obtained shows NSR HR [address]/T wave changes but QRS complexes changes from prior, possibly suggesting misplacement of limb leads. Will repeat EKG now. Repeat EKG shows no significant change from initial EKG suggesting possible limb lead switch. Notified patient's acting manager Dr. Rosa MD who suggested trending troponins and continue ASA/plavix/statin. Follow troponin elevated to 5.12. Patient asymptomatic. EKG shows no new ST/T wave changes. This can be due to new ACS event vs hypotensive episode patient previously had. Will continue to trend with next trop/EKG at [address] Addy MD updated as well as attending acting manager Dr. Rosa MD. No response has been heard so far. Peripheral blood cultures returned 1/4 positive for GPCs in clusters which may represent contamination. Initial BCs from admission show NGTD. On examination, patient completely asymptomatic without focal process evident. Examination benign (including no adventitious sounds on lung examination, abdominal exam non -tender to palpation with +BS x4). CXR and abdominal imaging from admission show no identifiable source of infection. However, patient did have a low grade fever yesterday which is concerning. We would consider vancomycin, however patient is a dialysis patient and is due for dialysis today. Will discuss this with AM team and further decision about dosing vancomycin or other antibiotic therapy after dialysis can be entertained.
[2017-03-30 22:00] VITALS: BP 110/0
--- NOTE | 2017-03-30 22:00 | NUR ---
RECHECK BP 110/D; PATIENT NO LONGER DIAPHORETIC; STILL REPORTS HEADACHE BUT REFUSING TYLENOL- DR JAQUELIN FRANZ NOTIFIED
[2017-03-30 23:55] VITALS: BP 106/0
--- NOTE | 2017-03-31 07:32 | RADIOLOGY REPORT ---
EXAMINATION:\H\ \N\XR CHEST CLINICAL INFORMATION: Increased oxygen requirement. Possible pneumonia. COMPARISON: Chest radiograph 03/27/2017, CT abdomen and pelvis 03/27/2017. TECHNIQUE: Frontal view of the chest was obtained. FINDINGS: A right internal jugular dual lumen catheter is again noted terminating projection with the right atrium. Low lung volumes are present with the right hemidiaphragm terminating projection with the anterior segment of the right fourth rib. Mild right base airspace opacity is present with partial obscuration of the right hemidiaphragmatic margin. Mild blunting of right costophrenic sulcus is noted. No pneumothoraces are visualized. Cardiac silhouette is grossly normal in size making allowances for portable technique and low inspiratory effort. Partial visualization is made of a lower cervical anterior spinal fusion plate. Multiple artifacts overlie the thorax. IMPRESSION: 1. Small right pleural effusion and mild right base airspace disease. The right base airspace disease may represent compressive atelectasis secondary to the small pleural effusion or early radiographic evidence of pneumonia. The pleural effusion appears increased in size compared with 03/27/2017.
[2017-03-31 08:29] VITALS: BP 102/60
[2017-03-31 09:18] LABS: ABSOLUTE BASOPHIL COUNT 0 /CUMM (0.0-0.2); ABSOLUTE EOSINOPHIL COUNT 0.1 /CUMM (0.0-0.7); ABSOLUTE GRANULOCYTE CT 3.7 /CUMM (1.4-6.5); ABSOLUTE LYMPH COUNT 0.6 /CUMM (1.2-3.4); ABSOLUTE MONOCYTE COUNT 0.4 /CUMM (0.10-0.60); BASOPHIL % 0.4 % (0.0-2.0); EOSINOPHIL % 1.9 % (0-5); GRANULOCYTE % 77.2 % (42.2-75.2); HEMATOCRIT 23.7 % (42-52); MEAN CORPUSCULAR HGB 25.9 PG (27.0-31.0); MEAN CORPUSCULAR HGB CONC 31.9 G/DL (33.0-37.0); MEAN CORPUSCULAR VOLUME 81.3 FL (80.0-94.0); MEAN PLATELET VOLUME 9.2 FL (7.4-10.4); PLATELET COUNT 127 /CUMM (130-400); RBC DISTRIBUTION WIDTH 16.8 % (11.5-14.5); RED BLOOD CELL CT 2.91 /CUMM (4.70-6.10); WHITE BLOOD CELL COUNT 4.8 /CUMM (4.8-10.8)
--- NOTE | 2017-03-31 09:32 | PN- Housestaff ---
VICTORIA RUSSELL 03/31/17 0919: Subjective Follow-up For: Nausea/vomiting/abdominal pain Elevated troponins fever Tele-Events Since Last Visit: 4 beats run of V. tach Subjective: Yesterday his blood pressure was on low side and he was given IV fluids. He was also shaky and having Rigors. No fever reported last night. This morning patient is feeling better. He reports mild cough with clear phlegm but denies any nasal congestion, sinus congestion, chest pain or discomfort, breathing difficulty, nausea, vomiting, abdominal pain, diarrhea or constipation. He reports urinary frequency but denies any pain or burning on micturition. Review of Systems Constitutional: Reports: see HPI. Objective Last 24 Hrs of Vital Signs/I&O Vital Signs Date Time Temp Pulse Resp B/P B/P Pulse O2 O2 Flow FiO2 Mean Ox Delivery Rate 03/31 0829 97.8 70 20 102/60 97 Room Air 03/31 0000 Nasal 3.0L Cannula 03/30 2355 99.6 66 20 106/0 94 Room Air 03/30 2242 110/0 03/30 2200 110/0 03/30 1905 94 Nasal 2.0L Cannula 03/30 1900 90/60 03/30 1800 98.7 78 18 80/48 97 Nasal 3.0L Cannula 03/30 1654 99.4 78 20 98/60 98 03/30 1600 Nasal 2.0L Cannula 03/30 1139 69 124/78 03/30 1138 69 124/78 03/30 1138 69 124/78 03/30 1138 69 124/78 03/30 1018 97 Room Air Intake & Output 03/31 1600 03/31 0800 03/31 0000 Intake Total 220 1120 Output Total 300 Balance -80 1120 Intake, IV 1000 Intake, Oral 220 120 Number 1 Bowel Movements Output, Urine 300 Patient 211 lb Weight Weight Chair scale Measurement Method Physical Exam General Appearance: Alert, Oriented X3, Cooperative, No Acute Distress Skin: right dialysis catheter. No signs of infection HEENT: Mucous Membr. moist/pink Neck: Supple Cardiovascular: Regular Rate, No Murmurs Lungs: Clear to Auscultation Abdomen: Normal Bowel Sounds, Soft, No Tenderness, obese Neurological: Normal Speech, Strength at 5/5 X4 Ext, Sensation Intact, Cranial Nerves 3-12 NL Extremities: No Edema, No Tenderness/Swelling Current Medications: Current Medications Sig/Julissa Start time Last Medication Dose Route Stop Time Status Admin Acetaminophen 650 MG Q6P PRN 03/27 2200 AC 03/30 PO 1642 Acetaminophen 1,000 MG Q8P PRN 03/27 220 AC IV Albuterol Sulfate 3 ML Q4H PRN 03/28 0930 AC INH Albuterol Sulfate 2 PUF Q4P PRN 03/27 221 AC INH Alprazolam 0.5 MG BID PRN 03/27 2215 AC 03/30 PO 04/03 221 221 Aspirin Buffered 81 MG AT BEDTIME 03/28 2200 AC 03/30 PO 2206 Atorvastatin Calcium 80 MG AT BEDTIME 03/28 2200 AC 03/30 PO 2207 Budesonide/ 2 PUF BID 03/27 221 AC 03/30 Formoterol Fumarate INH 2206 Clonidine 0.1 MG BID 03/28 1000 AC 03/30 PO 1138 Clopidogrel Bisulfate 75 MG DAILY 03/28 1000 AC 03/30 PO 1139 Epoetin [place] 8,000 UNIT TuThSa PRN 03/29 1100 AC IV Folic Acid 1 MG DAILY 03/28 1000 AC 03/30 PO 1138 Furosemide 80 MG DAILY 03/28 1000 AC 03/30 PO 1138 Heparin Sodium 5,000 UNIT Q8 03/28 0600 AC 03/31 (Porcine) SC 0605 Insulin Aspart 0 TIDAC 03/28 0800 AC 03/30 SC 1148 Isosorbide 60 MG DAILY 03/28 1000 AC 03/30 Mononitrate PO 1138 Levothyroxine Sodium 0.2 MG DAILY AC 03/28 0700 AC 03/31 PO 0600 Metoprolol Tartrate 100 MG DAILY 03/28 1000 AC 03/30 PO 1139 Polyethylene Glycol 17 GM DAILY 03/28 1353 AC 03/30 PO 1139 Prochlorperazine 10 MG Q6-PRN PRN 03/27 2215 AC 03/30 IV 2215 Ramelteon 8 MG AT BEDTIME 03/28 2200 AC 03/30 PO 2206 Senna/Docusate Sodium 2 TAB AT BEDTIME 03/28 2200 AC 03/30 PO 2206 Sertraline HCl 100 MG DAILY 03/28 1000 AC 03/30 PO 1137 Sevelamer Carbonate 1,600 MG WM 03/30 1700 AC PO Sevelamer Carbonate 1,600 MG TID 03/28 1000 DC 03/30 PO 1139 Sodium Chloride 500 ML BOLUS ONE 03/30 2000 DC 03/30 IV 03/30 Sodium Chloride 250 ML BOLUS ONE 03/30 1800 DC 03/30 IV 03/30 1859 1850 Sodium Chloride 250 ML BOLUS ONE 03/30 1745 DC 03/30 IV 03/30 1844 1834 Tamsulosin HCl 0.4 MG DAILY 03/28 1000 AC 03/30 PO 1138 Trazodone HCl 150 MG QPM 03/28 2200 AC 03/30 PO 2206 Last 24 Hrs of Lab/Angus Results Last 24 Hrs of Labs/Mics: Laboratory Tests 03/31/17 0830: Sodium Pending, Potassium Pending, Chloride Pending, Carbon Dioxide Pending, Anion Gap Pending, BUN Pending, Creatinine Pending, BUN/Creatinine Ratio Pending , Calcium Pending, Phosphorus Pending, Magnesium Pending, Albumin Pending, CBC w Diff Pending, WBC Pending, RBC Pending, Hgb Pending, Hct Pending, MCV Pending, MCH Pending, RDW Pending, Plt Count Pending, MPV Pending, PUBS MCHC Pending 03/31/17 0640: Troponin I 4.64 *H 03/31/17 0115: Troponin I 5.12 *H 03/30/17 1915: Troponin I 2.76 *H Microbiology 03/31 0739 URINE ROUT: Urine Culture - ORD 03/31 0703 URINE ROUT: Urine Culture - ORD Assessment/Plan Assessment: 67 year old Man with PMH of CAD s/p stents (Oct 2016), COPD, T2DM, neuropathy, MILES noncompliant with CPAP, HFpEF, CKD stage 5 s/p AV fistula (January 2017), multiple admits for chest pain, dyspnea and elevated troponins, initiated on HD (TTS) via [facility] during recent admission for fluid overload (03/15-03/23). Problem list 1. Nausea/vomiting/abdominal pain. most likely Gastroenteritis. Likely viral. resolved 2. Elevated troponins. Most likely secondary to chronic kidney disease and poor clearance. Troponins bumped up to 5 last night. No significant EKG changes. Patient is asymptomatic 3. History of end-stage renal disease on dialysis, Tuesday and Tuesday 4. Bilateral cortical and exophytic renal cysts. stable 5. fever/chills and rigors. etiology unclear. No obvious source of infection. Blood culture March 29 one set growing gram-positive cocci. Dialysis catheter site does not show any evidence of infection. Reports urinary frequency. 6. Chronic anemia due to iron deficiency and CKD. H&H 7.04/01.7 today PLAN * Monitor vitals closely. * Followup final blood cultures identification and sensitivities * follow-up cardio recommendations for today * ID consult * Follow-up UA and urine culture * Patient is going for hemodialysis today * Continue Bowel regimen PRN * Stool Guaiac * Continue home medications * Continue Physical therapy * Continue to monitor off antibiotics for now * Subcutaneous heparin for DVT prophylaxis * Full code Problem List: 1. Gastroenteritis Pain Ratin Pain Location: none Pain Goal: Pain 4 or less Pain Plan: tylenol Tomorrow's Labs & Rationales: cbc DVT/Prophylaxis: pharmacological Consulting Request: Consulting Specialty: Infectious Disease LUIS ELDRIDGE,DAVE 03/31/17 1700: Attending MD Review Statement Attending Statement Attending MD Statement: examined this patient, discuss w/resident/PA/SWEATBAND FLANGER, agreed w/resident/PA/SWEATBAND FLANGER, reviewed EMR data (avail), discussed with nursing, discussed with case mgmt, amended to note Attending Assessment/Plan: Patient seen and examined. Overnight events noted. Currently afebrile and hemodynamically stable. Denies chest pain or shortness of breath. He denies any redness today despite hemodialysis. His blood pressure has been stable post dialysis despite hemofiltration today. He continues to maintain saturation on room air. On examination breath sounds are decreased on the right side consistent with a small right pleural effusion and airspace disease noted on x- ray. X-ray suggests increased in size compared to March 27. He is clinically stable however his fever yesterday morning, complaint of rigors on/off, hypotension, and positive blood cultures (1 out of 2 sets) raises concern for an infectious process. He was seen by the ID service and started on IV vancomycin. Laboratory data shows a downward trend of his hemoglobin level this morning with no evidence of bleeding externally. His cardiac enzymes are starting to trend downwards. On examination his right IJ Bao catheter site shows no evidence of inflammation. There is no erythema, swelling or tenderness. His left AV fistula is also without evidence of inflammation. Problems: 1. Bacteremia; with concern for sepsis 2. New right-sided pleural effusion 3. End-stage renal disease with dialysis via recently placed right sided catheter 4. Coronary artery disease status post PCI and stent placement earlier on this year on dual antiplatelet therapy. Per discussion with his cardiology service he does have known coronary disease not amenable to revascularization intervention. Plan: Plan: -Continue IV vancomycin as recommended by the ID service. Follow blood cultures. -Obtain chest CT for better evaluation of his right-sided pleural effusion particularly in the setting of decreasing hemoglobin level and concern for sepsis in a patient with a recently placed right-sided catheter. - Repeat hemoglobin level this evening and transfuse to keep hemoglobin greater than 7. Check stool guaiac -Continue telemetry monitoring.
--- NOTE | 2017-03-31 10:55 | PN- Nephrology ---
Assessment/Plan Assessment: is 1. ESRD secondary to diabetic nephropathy - on hemodialysis Tuesday, and Tuesday 2. Transient vomiting and fever with one of 2 blood cultures positive for gram- positive cocci; afebrile today with normal WBC 3. Elevated troponins likely secondary to demand ischemia in setting of CKD 4. 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 Hemodialysis today in progress with ultrafiltration to his dry weight 2. Suggest empiric antibiotic therapy i.e. vancomycin pending final culture results 3. ID consult Subjective Subjective: Patient had a low-grade fever yesterday of 100.4 but has been afebrile since then. One of 2 blood cultures growing gram-positive cocci in clusters. WBC remains within normal limits. Patient has had sweats at night but no rigors today. Seen with hemodialysis. Objective Vital Signs and I&Os Vital Signs Date Time Temp Pulse Resp B/P B/P Pulse O2 O2 Flow FiO2 Mean Ox Delivery Rate 03/31 0829 97.8 70 20 102/60 97 Room Air 03/31 0000 Nasal 3.0L Cannula 03/30 2355 99.6 66 20 106/0 94 Room Air 03/30 2242 110/0 03/30 2200 110/0 03/30 1905 94 Nasal 2.0L Cannula 03/30 1900 90/60 03/30 1800 98.7 78 18 80/48 97 Nasal 3.0L Cannula 03/30 1654 99.4 78 20 98/60 98 03/30 1600 Nasal 2.0L Cannula 03/30 1139 69 124/78 03/30 1138 69 124/78 03/30 1138 69 124/78 03/30 1138 69 124/78 Intake & Output 03/31 1600 03/31 0400 03/30 1600 03/30 0400 03/29 1600 03/29 0400 Intake Total 220 1120 1320 120 500 200 Output Total 300 1700 100 Balance -80 1120 -380 120 400 200 Intake, IV 1000 Intake, Oral 995 272 9796 120 500 200 Number 1 1 2 Bowel Movements Output, Urine 300 1700 100 Patient 211 lb 206 lb 205 lb 205 lb Weight Weight Chair scale Chair scale Chair scale Standing Scale Measurement Method Physical Exam: General: Well-developed white male in no acute distress Skin: No rash or jaundice HEENT: Conjunctivae pink, sclerae anicteric, mucous membranes moist Chest: Clear anterolaterally Heart: Regular rate and rhythm without S3 or rub Abdomen: Soft and nontender without palpable masses or organomegaly Extremities: Without cyanosis or edema; the left upper arm AVF is patent Neuro: No asterixis or myoclonus Current Medications: Current Medications Sig/Julissa Start time Last Medication Dose Route Stop Time Status Admin Acetaminophen 650 MG Q6P PRN 03/27 2200 AC 03/30 PO 1642 Acetaminophen 1,000 MG Q8P PRN 03/27 2200 AC IV Albuterol Sulfate 3 ML Q4H PRN 03/28 0930 AC INH Albuterol Sulfate 2 PUF Q4P PRN 03/27 221 AC INH Alprazolam 0.5 MG BID PRN 03/27 2215 AC 03/30 PO 04/03 221 221 Aspirin Buffered 81 MG AT BEDTIME 03/28 2200 AC 03/30 PO 2206 Atorvastatin Calcium 80 MG AT BEDTIME 03/28 2200 AC 03/30 PO 2207 Budesonide/ 2 PUF BID 03/27 221 AC 03/30 Formoterol Fumarate INH 2206 Clonidine 0.1 MG BID 03/28 1000 AC 03/30 PO 1138 Clopidogrel Bisulfate 75 MG DAILY 03/28 1000 AC 03/30 PO 1139 Epoetin [place] 8,000 UNIT TuThSa PRN 03/29 1100 AC IV Folic Acid 1 MG DAILY 03/28 1000 AC 03/30 PO 1138 Furosemide 80 MG DAILY 03/28 1000 AC 03/30 PO 1138 Heparin Sodium 5,000 UNIT Q8 03/28 0600 AC 03/31 (Porcine) SC 0605 Insulin Aspart 0 TIDAC 03/28 0800 AC 03/30 SC 1148 Isosorbide 60 MG DAILY 03/28 1000 AC 03/30 Mononitrate PO 1138 Levothyroxine Sodium 0.2 MG DAILY AC 03/28 0700 AC 03/31 PO 0600 Metoprolol Tartrate 100 MG DAILY 03/28 1000 AC 03/30 PO 1139 Polyethylene Glycol 17 GM DAILY 03/28 1353 AC 03/30 PO 1139 Prochlorperazine 10 MG Q6-PRN PRN 03/27 2215 AC 03/30 IV 2215 Ramelteon 8 MG AT BEDTIME 03/28 2200 AC 03/30 PO 2206 Senna/Docusate Sodium 2 TAB AT BEDTIME 03/28 2200 AC 03/30 PO 220 Sertraline HCl 100 MG DAILY 03/28 1000 AC 03/30 PO 1137 Sevelamer Carbonate 1,600 MG WM 03/30 1700 AC PO Sevelamer Carbonate 1,600 MG TID 03/28 1000 DC 03/30 PO 1139 Sodium Chloride 500 ML BOLUS ONE 03/30 2000 DC 03/30 IV 03/30 Sodium Chloride 250 ML BOLUS ONE 03/30 1800 DC 03/30 IV 03/30 185 185 Sodium Chloride 250 ML BOLUS ONE 03/30 174 DC 03/30 IV 03/30 184 1834 Tamsulosin HCl 0.4 MG DAILY 03/28 1000 AC 03/30 PO 1138 Trazodone HCl 150 MG QPM 03/28 2200 AC 03/30 PO 2205 Results Pertinent Lab Results: Laboratory Tests 03/31 03/31 03/31 0921 0830 0640 Chemistry Sodium (137 - 145 mmol/L) 130 L Potassium (3.5 - 5.1 mmol/L) 3.8 Chloride (98 - 107 mmol/L) 97 L Carbon Dioxide (22 - 30 mmol/L) 24 Anion Gap (5 - 16) 10 BUN (9 - 20 mg/dL) 42 H Creatinine (0.7 - 1.2 mg/dL) 4.9 H Estimated GFR (>60 ml/min) 12 L BUN/Creatinine Ratio (7 - 25 %) 8.6 Calcium (8.4 - 10.2 mg/dL) 6.7 L Phosphorus (2.5 - 4.5 mg/dL) 4.5 Magnesium (1.6 - 2.3 mg/dL) 2.4 H Troponin I (<0.11 ng/ml) Cancelled 4.64 *H Albumin (3.5 - 5.0 g/dL) 3.3 L Hematology CBC w Diff NO MAN DIFF REQ WBC (4.8 - 10.8 /CUMM) 4.8 RBC (4.70 - 6.10 /CUMM) 2.91 L Hgb (14.0 - 18.0 G/DL) 7.6 L Hct (42 - 52 %) 23.7 L MCV (80.0 - 94.0 FL) 81.3 MCH (27.0 - 31.0 PG) 25.9 L RDW (11.5 - 14.5 %) 16.8 H Plt Count (130 - 400 /CUMM) 127 L MPV (7.4 - 10.4 FL) 9.2 Gran % (42.2 - 75.2 %) 77.2 H Lymphocytes % (20.5 - 51.1 %) 11.9 L Monocytes % (1.7 - 9.3 %) 8.6 Eosinophils % (0 - 5 %) 1.9 Basophils % (0.0 - 2.0 %) 0.4 Absolute Granulocytes (1.4 - 6.5 /CUMM) 3.7 Absolute Lymphocytes (1.2 - 3.4 /CUMM) 0.6 L Absolute Monocytes (0.10 - 0.60 /CUMM) 0.4 Absolute Eosinophils (0.0 - 0.7 /CUMM) 0.1 Absolute Basophils (0.0 - 0.2 /CUMM) 0 PUBS MCHC (33.0 - 37.0 G/DL) 31.9 L 03/31 03/30 03/30 0115 1915 0900 Chemistry Sodium (137 - 145 mmol/L) 132 L Potassium (3.5 - 5.1 mmol/L) 4.1 Chloride (98 - 107 mmol/L) 95 L Carbon Dioxide (22 - 30 mmol/L) 26 Anion Gap (5 - 16) 11 BUN (9 - 20 mg/dL) 26 H Creatinine (0.7 - 1.2 mg/dL) 3.9 H Estimated GFR (>60 ml/min) 16 L BUN/Creatinine Ratio (7 - 25 %) 6.7 L Troponin I (<0.11 ng/ml) 5.12 *H 2.76 *H Hematology CBC w Diff NO MAN DIFF REQ WBC (4.8 - 10.8 /CUMM) 3.4 L RBC (4.70 - 6.10 /CUMM) 3.33 L Hgb (14.0 - 18.0 G/DL) 8.8 L Hct (42 - 52 %) 27.0 L MCV (80.0 - 94.0 FL) 81.1 MCH (27.0 - 31.0 PG) 26.5 L RDW (11.5 - 14.5 %) 17.1 H Plt Count (130 - 400 /CUMM) 128 L MPV (7.4 - 10.4 FL) 9.2 Gran % (42.2 - 75.2 %) 67.8 Lymphocytes % (20.5 - 51.1 %) 18.8 L Monocytes % (1.7 - 9.3 %) 10.7 H Eosinophils % (0 - 5 %) 2.3 Basophils % (0.0 - 2.0 %) 0.4 Absolute Granulocytes (1.4 - 6.5 /CUMM) 2.3 Absolute Lymphocytes (1.2 - 3.4 /CUMM) 0.6 L Absolute Monocytes (0.10 - 0.60 /CUMM) 0.4 Absolute Eosinophils (0.0 - 0.7 /CUMM) 0.1 Absolute Basophils (0.0 - 0.2 /CUMM) 0 PUBS MCHC (33.0 - 37.0 G/DL) 32.7 L 03/29 03/28 0717 1240 Chemistry Sodium (137 - 145 mmol/L) 131 L Potassium (3.5 - 5.1 mmol/L) 3.5 Chloride (98 - 107 mmol/L) 94 L Carbon Dioxide (22 - 30 mmol/L) 24 Anion Gap (5 - 16) 12 BUN (9 - 20 mg/dL) 45 H Creatinine (0.7 - 1.2 mg/dL) 5.3 *H Estimated GFR (>60 ml/min) 11 L BUN/Creatinine Ratio (7 - 25 %) 8.5 Troponin I (<0.11 ng/ml) 0.50 *H Hematology CBC w Diff NO MAN DIFF REQ WBC (4.8 - 10.8 /CUMM) 4.4 L RBC (4.70 - 6.10 /CUMM) 3.15 L Hgb (14.0 - 18.0 G/DL) 8.3 L Hct (42 - 52 %) 25.4 L MCV (80.0 - 94.0 FL) 80.6 MCH (27.0 - 31.0 PG) 26.4 L RDW (11.5 - 14.5 %) 16.6 H Plt Count (130 - 400 /CUMM) 159 MPV (7.4 - 10.4 FL) 8.6 Gran % (42.2 - 75.2 %) 58.9 Lymphocytes % (20.5 - 51.1 %) 22.9 Monocytes % (1.7 - 9.3 %) 14.6 H Eosinophils % (0 - 5 %) 3.2 Basophils % (0.0 - 2.0 %) 0.4 Absolute Granulocytes (1.4 - 6.5 /CUMM) 2.6 Absolute Lymphocytes (1.2 - 3.4 /CUMM) 1.0 L Absolute Monocytes (0.10 - 0.60 /CUMM) 0.6 Absolute Eosinophils (0.0 - 0.7 /CUMM) 0.1 Absolute Basophils (0.0 - 0.2 /CUMM) 0 PUBS MCHC (33.0 - 37.0 G/DL) 32.7 L
--- NOTE | 2017-03-31 11:01 | PN- Cardiology ---
Subjective Subjective: Denies any chest discomfort. Elevated troponin noted. NO new ECG changes Protracted episode of rigors / chills yesterday followed by diaphoresis and prolonged period of profoiund fatigue noted by patient Objective Vital Signs and I&Os Vital Signs Date Time Temp Pulse Resp B/P B/P Pulse O2 O2 Flow FiO2 Mean Ox Delivery Rate 03/31 0829 97.8 70 20 102/60 97 Room Air 03/31 0000 Nasal 3.0L Cannula 03/30 2355 99.6 66 20 106/0 94 Room Air 03/30 2242 110/0 03/30 2200 110/0 03/30 1905 94 Nasal 2.0L Cannula 03/30 1900 90/60 03/30 1800 98.7 78 18 80/48 97 Nasal 3.0L Cannula 03/30 1654 99.4 78 20 98/60 98 03/30 1600 Nasal 2.0L Cannula 03/30 1139 69 124/78 03/30 1138 69 124/78 03/30 1138 69 124/78 03/30 1138 69 124/78 Intake & Output 03/31 1600 03/31 0800 03/31 0000 03/30 1600 03/30 0800 03/30 0000 Intake Total 220 1120 1200 120 120 Output Total 300 1500 200 Balance -80 1120 -300 -80 120 Intake, IV 1000 Intake, Oral 264 405 4326 120 120 Number 1 1 Bowel Movements Output, Urine 300 1500 200 Patient 211 lb 206 lb 205 lb Weight Weight Chair scale Chair scale Chair scale Measurement Method Current Medications: Current Medications Sig/Julissa Start time Last Medication Dose Route Stop Time Status Admin Acetaminophen 650 MG Q6P PRN 03/27 2200 AC 03/30 PO 1642 Acetaminophen 1,000 MG Q8P PRN 03/27 2200 AC IV Albuterol Sulfate 3 ML Q4H PRN 03/28 0930 AC INH Albuterol Sulfate 2 PUF Q4P PRN 03/27 2215 AC INH Alprazolam 0.5 MG BID PRN 03/27 2215 AC 03/30 PO 04/03 Aspirin Buffered 81 MG AT BEDTIME 03/28 2200 AC 03/30 PO 2205 Atorvastatin Calcium 80 MG AT BEDTIME 03/28 2200 AC 03/30 PO 2206 Budesonide/ 2 PUF BID 03/27 2211 AC 03/30 Formoterol Fumarate INH 2206 Clonidine 0.1 MG BID 03/28 1000 AC 03/30 PO 1138 Clopidogrel Bisulfate 75 MG DAILY 03/28 1000 AC 03/30 PO 1139 Epoetin [place] 8,000 UNIT TuThSa PRN 03/29 1100 AC IV Folic Acid 1 MG DAILY 03/28 1000 AC 03/30 PO 1138 Furosemide 80 MG DAILY 03/28 1000 AC 03/30 PO 1138 Heparin Sodium 5,000 UNIT Q8 03/28 0600 AC 03/31 (Porcine) SC 0605 Insulin Aspart 0 TIDAC 03/28 0800 AC 03/30 SC 1148 Isosorbide 60 MG DAILY 03/28 1000 AC 03/30 Mononitrate PO 1138 Levothyroxine Sodium 0.2 MG DAILY AC 03/28 0700 AC 03/31 PO 0600 Metoprolol Tartrate 100 MG DAILY 03/28 1000 AC 03/30 PO 1139 Polyethylene Glycol 17 GM DAILY 03/28 1353 AC 03/30 PO 1139 Prochlorperazine 10 MG Q6-PRN PRN 03/27 2215 AC 03/30 IV 2215 Ramelteon 8 MG AT BEDTIME 03/28 2200 AC 03/30 PO 2206 Senna/Docusate Sodium 2 TAB AT BEDTIME 03/28 2200 AC 03/30 PO 2206 Sertraline HCl 100 MG DAILY 03/28 1000 AC 03/30 PO 1137 Sevelamer Carbonate 1,600 MG WM 03/30 1700 AC PO Sevelamer Carbonate 1,600 MG TID 03/28 1000 DC 03/30 PO 1139 Sodium Chloride 500 ML BOLUS ONE 03/30 2000 DC 03/30 IV 03/30 Sodium Chloride 250 ML BOLUS ONE 03/30 1800 DC 03/30 IV 03/30 185 1850 Sodium Chloride 250 ML BOLUS ONE 03/30 1745 DC 03/30 IV 03/30 1844 1834 Tamsulosin HCl 0.4 MG DAILY 03/28 1000 AC 03/30 PO 1138 Trazodone HCl 150 MG QPM 03/28 2200 AC 03/30 PO 2206 Results Last 48 Hrs of Labs/Mics: Laboratory Tests 03/31/17 0921: Troponin I Cancelled 03/31/17 0830: Anion Gap 10, Estimated GFR 12 L, BUN/Creatinine Ratio 8.6, Calcium 6.7 L, Phosphorus 4.5, Magnesium 2.4 H, Albumin 3.3 L, CBC w Diff NO MAN DIFF REQ, RBC 2.91 L, MCV 81.3, MCH 25.9 L, RDW 16.8 H, MPV 9.2, Gran % 77.2 H, Lymphocytes % 11.9 L, Monocytes % 8.6, Eosinophils % 1.9, Basophils % 0.4, Absolute Granulocytes 3.7, Absolute Lymphocytes 0.6 L, Absolute Monocytes 0.4, Absolute Eosinophils 0.1, Absolute Basophils 0, PUBS MCHC 31.9 L 03/31/17 0640: Troponin I 4.64 *H 03/31/17 0115: Troponin I 5.12 *H 03/30/17 1915: Troponin I 2.76 *H 03/30/17 0900: Anion Gap 11, Estimated GFR 16 L, BUN/Creatinine Ratio 6.7 L, CBC w Diff NO MAN DIFF REQ, RBC 3.33 L, MCV 81.1, MCH 26.5 L, RDW 17.1 H, MPV 9.2, Gran % 67.8, Lymphocytes % 18.8 L, Monocytes % 10.7 H, Eosinophils % 2.3, Basophils % 0.4, Absolute Granulocytes 2.3, Absolute Lymphocytes 0.6 L, Absolute Monocytes 0.4, Absolute Eosinophils 0.1, Absolute Basophils 0, PUBS MCHC 32.7 L Assessment/Plan Assessment/Plan Assessment: #Viral gastroenteritis #Elevated troponin which is most likely related to demand ischemia in the setting of chronic kidney disease #CHFrEF #CKD stage V on dialysis #Chronic hypoxic respiratory failure related to COPD/obstructive sleep apnea on 2 L oxygen Recommendations: -Continue as outlined by the medical staff. -Trend troponin - If the troponin increases repeat echocardiogram to reassess LV wall motion. - Echo pending - Inview of recurrent episodes of chills, decreasing WBC count, etc. consider input from ID.
--- NOTE | 2017-03-31 12:55 | Cons- Infect Disease ---
General Information and HPI Consulting Request Date of Consult: 03/31/17 Requested By: DAVE SMITH M.D Reason for Consult: Positive blood culture for gram-positive cocci in clusters Source of Information: patient, old records History of Present Illness: This is a 67-year-old man with a history of coronary artery disease, status post stents, COPD, diabetes complicated by neuropathy and end-stage renal disease, status post creation of a left upper extremity AV fistula 2 months prior to admission and hospitalized 2 weeks prior to admission with volume overload, at which time an Bao catheter was placed in the right IJ and he was begun on hemodialysis, discharged just 4 days prior to admission to a short-term rehabilitation facility and continued on dialysis with no problems reported, admitted on March 27 with the acute onset of rigors, nausea and vomiting. On admission he was afebrile. Laboratory data revealed a white blood cell count of 5000, BUN/creatinine 25 and 3.6, bilirubin 2.0, troponin 0.18, proBNP 31,400, d- dimer 2992. Chest x-ray was negative. CT of the abdomen and pelvis was negative for any acute process. He was followed off antibiotics. Since admission he has continued to have rigors once daily. He remained afebrile until March 30, when he developed a temperature to 100.4, but he has had no recurrent fevers. Last evening he developed hypotension associated with a headache, and he was given 500 mL of fluid. This was associated with an increasing troponin, which is felt by Cardiology to represent demand ischemia. He continues to report occasional nausea but has had no further vomiting and denies any abdominal pain or diarrhea. He did report chest pain in the emergency room but has had no further chest pain and has no shortness of breath. He does report a mild cough with occasional white phlegm. He urinates a minimal amount but has no dysuria and reports no back pain. Allergies/Medications Allergies: Coded Allergies: Iodinated Contrast- Oral and IV Dye (PER PT STATES HIS KIDNEYS ARE SHOT HE IS ON DIALYSIS 03/27/17) morphine (Mild, LOOPY 01/18/17) hydromorphone (DEPRESSED RESPIRATIONS 01/18/17) Home Med List: Albuterol Sulfate (Proair Hfa) 90 MCG HFA.AER.AD 2 PUF INH Q4H PRN SOB ( Reported) Alprazolam (Xanax) 0.5 MG TABLET 1 TAB PO BID PRN ANXIETY Aspirin (Ecotrin*) 81 MG TABLET.DR 1 TAB PO QHS CAD (Reported) Atorvastatin Calcium (Lipitor) 80 MG TABLET 1 TAB PO QHS CHOLESTEROL ( Reported) Budesonide/Formoterol Fumarate (Symbicort 160-4.5 Mcg Inhaler) 160 MCG-4.5 MCG/ ACTUATION HFA.AER.AD 2 PUF INH BID COPD Rinse your mouth after using inhaler. Clonidine HCl 0.1 MG TABLET 1 TAB PO BID BP (Reported) Clopidogrel Bisulfate (Plavix) 75 MG TABLET 75 MG PO DAILY ANTIPLATELET Folic Acid 1 MG TABLET 1 TAB PO DAILY SUPPLEMENT (Reported) Furosemide (Lasix) 40 MG TABLET 80 MG PO DAILY diuresis Insulin Glargine,Hum.rec.anlog (Lantus Solostar) 100 UNIT/ML (3 ML) INSULN.PEN 15 UNITS SQ BID DIABETES Isosorbide Mononitrate (Isosorbide Mononitrate ER) 60 MG TAB.ER.24H 1 TAB PO DAILY CAD Levothyroxine Sodium (Synthroid) 200 MCG TABLET 0.2 MG PO DAILY AC THYROID Liraglutide (Victoza 3-Zeus) 0.6 MG/0.1 ML PEN.INJCTR 1.8 MG PO QHS DIABETES ( Reported) Metoprolol Tartrate 100 MG TABLET 1 TAB PO DAILY HEART (Reported) Nut.tx.impaired Renal Fxn,Soy (Nepro Carb Steady) (Unknown Strength) LIQUID 120 ML PO BID UNKNOWN (Reported) Ramelteon (Rozerem) 8 MG TABLET 1 TAB PO AT BEDTIME SLEEP HELP Sennosides/Docusate Sodium (Senna S Tablet) 8.6 MG-50 MG TABLET 2 TAB PO QHS GI (Reported) Sertraline HCl (Zoloft) 100 MG TABLET 1 TAB PO DAILY ANXIETY (Reported) Sevelamer Carbonate (Renvela) 800 MG TABLET 2 TAB PO TID ESRD (Reported) Tamsulosin HCl 0.4 MG CAP.ER.24H 1 CAP PO DAILY PROSTATE (Reported) Trazodone HCl 150 MG TABLET 1 TAB PO QPM SLEEP (Reported) Past History Travel History Traveled to [place] past 21 day No Medical History Neurological: NONE EENT: NONE Cardiovascular: CAD, hypertension, hyperlipidemia, PVD, 6 CARDIAC STENTS Respiratory: COPD Hepatic: NONE Renal: chronic kidney disease, L ARM AVF PLACED 01/17/17 Musculoskeletal: chronic back pain, ?BACK PROBLEM REQUIRE SX Psychiatric: NONE Endocrine: diabetes Blood Disorders: NONE Cancer(s): THYROID CA BACK PANEL PADDER/Reproductive: NONE History of MRSA: No History of VRE: No History of CDIFF: No Isolation History: Standard Surgical History Surgical History: CARDIAC STENTS X 6 THYROIDECTOMY LEFT LEG FX REPAIR ELBOW FX REPAIR SPINAL FUSION C4-C5 AV fistula Family History Relations & Conditions If Any: FATHER FH: heart disease Relation not specified for: FH: diabetes mellitus FH: hypertension Psychosocial History Where Do You Live? Acute Rehab Services at Home: Physical Therapy Smoking Status: Former Smoker ETOH Use: denies use Illicit Drug Use: denies illicit drug use Functional Ability ADLs Independent: dressing, eating, toileting, bathing. Ambulation: cane IADLs Independent: shopping, housework, finances, food prep, telephone, transportation , medication admin. Sexual History Sexually Active: No Review of Systems Review of Systems GI: Reports: constipation. All Other Systems: Reviewed and Negative Exam & Diagnostic Data Last 24 Hrs of Vital Signs/I&O Vital Signs Date Time Temp Pulse Resp B/P B/P Pulse O2 O2 Flow FiO2 Mean Ox Delivery Rate 03/31 0829 97.8 70 20 102/60 97 Room Air 03/31 0000 Nasal 3.0L Cannula 03/30 2355 99.6 66 20 106/0 94 Room Air 03/30 2242 110/0 03/30 2200 110/0 03/30 1905 94 Nasal 2.0L Cannula 03/30 1900 90/60 03/30 1800 98.7 78 18 80/48 97 Nasal 3.0L Cannula 03/30 1654 99.4 78 20 98/60 98 03/30 1600 Nasal 2.0L Cannula Intake & Output 03/31 1600 03/31 0800 03/31 0000 Intake Total 220 1120 Output Total 300 Balance -80 1120 Intake, IV 1000 Intake, Oral 220 120 Number 1 Bowel Movements Output, Urine 300 Patient 211 lb Weight Weight Chair scale Measurement Method Physical Exam Other Physical Findings: He is awake and alert in no acute distress. MAXIMUM TEMPERATURE 100.4. Skin ecchymosis over the right lower quadrant. HEENT exam is negative. Neck is supple with no adenopathy; right IJ Bao catheter with no inflammation at the site. Lungs decreased breath sounds at the right base. Heart regular rhythm with no murmur. Abdomen is soft, nontender with positive bowel sounds. Back no CVA tenderness. Extremities no cyanosis, clubbing or edema; left upper extremity AV fistula with a positive bruit and thrill with no overlying inflammation. Neuro is without focality. Last 24 Hours of Lab Results: Laboratory Tests 03/31 03/31 03/31 0921 0830 0640 Chemistry Sodium (137 - 145 mmol/L) 130 L Potassium (3.5 - 5.1 mmol/L) 3.8 Chloride (98 - 107 mmol/L) 97 L Carbon Dioxide (22 - 30 mmol/L) 24 Anion Gap (5 - 16) 10 BUN (9 - 20 mg/dL) 42 H Creatinine (0.7 - 1.2 mg/dL) 4.9 H Estimated GFR (>60 ml/min) 12 L BUN/Creatinine Ratio (7 - 25 %) 8.6 Calcium (8.4 - 10.2 mg/dL) 6.7 L Phosphorus (2.5 - 4.5 mg/dL) 4.5 Magnesium (1.6 - 2.3 mg/dL) 2.4 H Troponin I (<0.11 ng/ml) Cancelled 4.64 *H Albumin (3.5 - 5.0 g/dL) 3.3 L Hematology CBC w Diff NO MAN DIFF REQ WBC (4.8 - 10.8 /CUMM) 4.8 RBC (4.70 - 6.10 /CUMM) 2.91 L Hgb (14.0 - 18.0 G/DL) 7.6 L Hct (42 - 52 %) 23.7 L MCV (80.0 - 94.0 FL) 81.3 MCH (27.0 - 31.0 PG) 25.9 L RDW (11.5 - 14.5 %) 16.8 H Plt Count (130 - 400 /CUMM) 127 L MPV (7.4 - 10.4 FL) 9.2 Gran % (42.2 - 75.2 %) 77.2 H Lymphocytes % (20.5 - 51.1 %) 11.9 L Monocytes % (1.7 - 9.3 %) 8.6 Eosinophils % (0 - 5 %) 1.9 Basophils % (0.0 - 2.0 %) 0.4 Absolute Granulocytes (1.4 - 6.5 /CUMM) 3.7 Absolute Lymphocytes (1.2 - 3.4 /CUMM) 0.6 L Absolute Monocytes (0.10 - 0.60 /CUMM) 0.4 Absolute Eosinophils (0.0 - 0.7 /CUMM) 0.1 Absolute Basophils (0.0 - 0.2 /CUMM) 0 PUBS MCHC (33.0 - 37.0 G/DL) 31.9 L 03/31 03/30 0115 1915 Chemistry Troponin I (<0.11 ng/ml) 5.12 *H 2.76 *H Last 24 Hours of Angus Results: Blood cultures 2 March 27 negative Blood cultures March 29 one bottle positive for gram-positive cocci in clusters Diagnostic Data Recent Imaging Findings: Chest x-ray March 31 reveals a small right pleural effusion and mild right basilar airspace disease CT of the abdomen and pelvis March 27 no acute process, but does reveal right middle lobe atelectasis Assessment/Plan Assessment/Plan Impression: This is a 67-year-old man with coronary artery disease, COPD and diabetes, with end-stage renal disease, status post creation of a left upper extremity AV fistula 2 months prior to admission and begun on dialysis on his recent admission just 2 weeks prior to admission via a right IJ Bao catheter which was placed on that admission, admitted on March 27, just 4 days after discharge, with the acute onset of rigors with nausea and vomiting, found to be afebrile with a normal white blood cell count, with continued rigors since admission and with a low-grade fever yesterday now found to have 1 blood culture from yesterday positive for gram-positive cocci in clusters. The significance of this culture is unclear. It may represent a contaminant, as only one bottle is positive, but , given the low-grade fever and hypotension yesterday and his complaints of daily rigors the possibility of line sepsis must be considered, and he should be treated for this possibility pending further evaluation. He has no other obvious source of sepsis, with his chest x-ray more suggestive of atelectasis than pneumonia, and with the recent CT of the abdomen and pelvis negative for any acute intra-abdominal process. The elevated troponin is felt to represent demand ischemia but he may warrant further evaluation per Cardiology. Suggestion: 1. Repeat blood cultures 2 from the periphery and 1 from the dialysis catheter at dialysis 2. Urinalysis and urine culture 3. Further evaluation of the increasing troponin per Cardiology 4. Begin Vancomycin 1 g IV 1 pending above Consult Acknowledgment - Thank you for your consult request.
--- NOTE | 2017-03-31 14:46 | NUR ---
ALL PT MEDS WERE SCANNED AND THEN COMPUTER FROZE. IT HAD TO OVERRIDE AND MEDS WERE DOCUMENTED 30MINUTES LATER. ANDRES IS AWARE
[2017-03-31 15:30] VITALS: BP 110/68
[2017-03-31 17:53] LABS: ABSOLUTE BASOPHIL COUNT 0 /CUMM (0.0-0.2); ABSOLUTE EOSINOPHIL COUNT 0 /CUMM (0.0-0.7); ABSOLUTE GRANULOCYTE CT 3.2 /CUMM (1.4-6.5); ABSOLUTE LYMPH COUNT 0.2 /CUMM (1.2-3.4); ABSOLUTE MONOCYTE COUNT 0 /CUMM (0.10-0.60); BASOPHIL % 0.2 % (0.0-2.0); EOSINOPHIL % 1.2 % (0-5); HEMATOCRIT 27.9 % (42-52); MEAN CORPUSCULAR HGB 26.5 PG (27.0-31.0); MEAN CORPUSCULAR HGB CONC 32.9 G/DL (33.0-37.0); MEAN CORPUSCULAR VOLUME 80.6 FL (80.0-94.0); MEAN PLATELET VOLUME 8.9 FL (7.4-10.4); PLATELET COUNT 175 /CUMM (130-400); RBC DISTRIBUTION WIDTH 16.9 % (11.5-14.5); RED BLOOD CELL CT 3.46 /CUMM (4.70-6.10); WHITE BLOOD CELL COUNT 3.5 /CUMM (4.8-10.8)
--- NOTE | 2017-03-31 19:11 | CT SCAN REPORT ---
EXAMINATION: CT CHEST WITHOUT CONTRAST CLINICAL INFORMATION: Chills and rigors without leukocytosis. Evaluate for worsening effusion or bleed. New right IJ line and effusion. COMPARISON: 07/26/2016, chest x-ray performed earlier the same day and 03/19/2017. Chest x-ray 03/02/2016. Abdomen and pelvis CT 03/27/2017. TECHNIQUE: Multidetector volumetric CT imaging of the chest was done. Axial MIP volume rendering provided. Sagittal and coronal reformatted images were obtained. DLP: 451 mGy-cm FINDINGS: There are small bilateral pleural effusions, right side greater than left which are a new finding compared with the most recent chest CT, and increased in size on the right side compared with the abdominal CT 03/27/2017. Hounsfield unit measurements bilaterally are consistent with simple fluid or a transudate without evidence of an exudative effusion or hemothorax. Right hemidiaphragm remains elevated with associated right middle lobe atelectasis which has increased compared with the previous exam. No suspicious-appearing pulmonary nodules are seen. A few under 6 mm pulmonary nodules in the right lung base are unchanged compared to the July 2015 exam likely incidental. There is a new right-sided dual-lumen hemodialysis catheter not completely visualized proximally with its tip low in the right atrium just proximal to the valve. There is no mediastinal, lower cervical, or hilar lymphadenopathy identified. There is extensive atherosclerotic coronary calcifications with mild prominence of the left ventricle. Nodularity in the retroareolar left breast greater than right suggests gynecomastia. Clinical correlation recommended. The left side appears largely unchanged, right side appears slightly increased. There is no evidence of axillary lymphadenopathy. Included portions of the upper abdomen demonstrate a somewhat collapsed gallbladder without evidence of radiopaque calculi. Mild mural thickening and pericholecystic fluid is suggested. Clinical correlation for acute cholecystitis is recommended. Findings are new compared with the 03/27/2017 CT scan. A few scattered calcified hepatic granulomas are seen. Splenic size is upper limits normal. There is an exophytic 5 cm cyst partially visualized off the medial right kidney. Calcifications lower pole right kidney are likely vascular. No aggressive-appearing osseous lesions are seen. There are postsurgical changes in the lower cervical spine. IMPRESSION: 1. There is stable elevated right hemidiaphragm with associated right middle lobe atelectasis and bilateral pleural effusions increasing on the right, stable on the left since the recent abdominal CT. 2. A right-sided dual-lumen hemodialysis catheter is identified with its tip extending deep into the right atrium with the patient in the supine position. Clinical correlation recommended. 3. Stable-appearing under 6 mm pulmonary nodules in the right lower lung field. 4. Stable-appearing nodularity in the left breast. 5. Gallbladder is somewhat contracted limiting evaluation with question of developing acute cholecystitis. Clinical correlation recommended.
[2017-04-01 00:30] VITALS: BP 102/52
[2017-04-01 07:56] VITALS: BP 110/74
[2017-04-01 08:00] LABS: ABSOLUTE BASOPHIL COUNT 0 /CUMM (0.0-0.2); ABSOLUTE EOSINOPHIL COUNT 0 /CUMM (0.0-0.7); ABSOLUTE LYMPH COUNT 0.5 /CUMM (1.2-3.4); ABSOLUTE MONOCYTE COUNT 0.4 /CUMM (0.10-0.60)
[2017-04-01 08:24] LABS: ABSOLUTE GRANULOCYTE CT 5.5 /CUMM (1.4-6.5); BASOPHIL % 0.3 % (0.0-2.0); EOSINOPHIL % 0.1 % (0-5); GRANULOCYTE % 84.9 % (42.2-75.2); HEMATOCRIT 24.3 % (42-52); MEAN CORPUSCULAR HGB 26.7 PG (27.0-31.0); MEAN CORPUSCULAR HGB CONC 33.5 G/DL (33.0-37.0); MEAN CORPUSCULAR VOLUME 79.7 FL (80.0-94.0); MEAN PLATELET VOLUME 9.7 FL (7.4-10.4); PLATELET COUNT 138 /CUMM (130-400); RBC DISTRIBUTION WIDTH 17.2 % (11.5-14.5); RED BLOOD CELL CT 3.05 /CUMM (4.70-6.10)
[2017-04-01 08:29] LABS: WHITE BLOOD CELL COUNT 6.5 /CUMM (4.8-10.8)
--- NOTE | 2017-04-01 09:08 | PN- Housestaff ---
VICTORIA RUSSELL 04/01/17 0907: Subjective Follow-up For: Nausea/vomiting/abdominal pain Elevated troponins fever Tele-Events Since Last Visit: Sinus rhythm Heart rate 50-63 No overnight events Subjective: Patient is alert, awake and oriented. He is still complaining of Rigors and chills daily. Reports nausea and Vomited yesterday. He denies any abdominal pain or urinary symptoms. Review of Systems Constitutional: Reports: see HPI. Objective Last 24 Hrs of Vital Signs/I&O Vital Signs Date Time Temp Pulse Resp B/P B/P Pulse O2 O2 Flow FiO2 Mean Ox Delivery Rate 04/01 1319 97.6 96 Nasal 2.0L Cannula 04/01 1136 91 Room Air Room Air 04/01 0917 98.1 62 14 102/52 04/01 0917 98.1 62 14 102/52 04/01 0916 98.1 14 102/52 04/01 0915 62 102/52 04/01 0756 98.1 62 14 110/74 93 Room Air 04/01 0030 98.2 60 18 102/52 100 Room Air 04/01 0000 Nasal 2.0L Cannula 03/31 2125 92/50 03/31 2016 97 Room Air Room Air 03/31 1600 Nasal 2.0L Cannula 03/31 1530 98.6 67 18 110/68 95 Room Air 03/31 1419 97 Room Air Room Air 03/31 1416 136/70 03/31 1416 136/60 03/31 1416 136/70 03/31 1416 136/70 Intake & Output 04/01 1600 04/01 0800 04/01 0000 Intake Total 120 60 Output Total 200 100 Balance -80 -40 Intake, Oral 120 60 Number 2 Bowel Movements Output, 100 Emesis Output, Urine 200 Patient 206 lb Weight Weight Chair scale Measurement Method Physical Exam General Appearance: Alert, Oriented X3, Cooperative, No Acute Distress Neck: Supple Cardiovascular: Regular Rate Lungs: Clear to Auscultation Abdomen: Normal Bowel Sounds, Soft, No Tenderness Extremities: No Edema Current Medications: Current Medications Sig/Julissa Start time Last Medication Dose Route Stop Time Status Admin Acetaminophen 650 MG Q6P PRN 03/27 2200 AC 04/01 PO 1253 Acetaminophen 1,000 MG Q8P PRN 03/27 2200 AC IV Albuterol Sulfate 3 ML Q4H PRN 03/28 0930 AC INH Albuterol Sulfate 2 PUF Q4P PRN 03/27 2215 AC INH Alprazolam 0.5 MG BID PRN 03/27 2215 AC 04/01 PO 04/03 2214 0916 Aspirin Buffered 81 MG AT BEDTIME 03/28 2200 AC 03/31 PO 2123 Atorvastatin Calcium 80 MG AT BEDTIME 03/28 2200 AC 03/31 PO 2123 Budesonide/ 2 PUF BID 03/27 2211 AC 04/01 Formoterol Fumarate INH 0912 Clonidine 0.1 MG BID 03/28 1000 AC 03/31 PO 1416 Clopidogrel Bisulfate 75 MG DAILY 03/28 1000 AC 04/01 PO 0916 Epoetin [place] 8,000 UNIT TuThSa PRN 03/29 1100 AC IV Folic Acid 1 MG DAILY 03/28 1000 AC 04/01 PO 0917 Furosemide 80 MG DAILY 03/28 1000 AC 04/01 PO 0917 Heparin Sodium 5,000 UNIT Q8 03/28 0600 AC 04/01 (Porcine) SC 0603 Insulin Aspart 0 TIDAC 03/28 0800 AC 03/30 SC 1148 Isosorbide 60 MG DAILY 03/28 1000 AC 03/31 Mononitrate PO 1416 Levothyroxine Sodium 0.2 MG DAILY AC 03/28 0700 AC 04/01 PO 0603 Metoprolol Tartrate 100 MG DAILY 03/28 1000 AC 04/01 PO 0916 Polyethylene Glycol 17 GM DAILY 03/28 1353 AC 03/30 PO 1139 Prochlorperazine 10 MG Q6-PRN PRN 03/27 2215 AC 04/01 IV 1030 Ramelteon 8 MG AT BEDTIME 03/28 2200 AC 03/31 PO 2123 Senna/Docusate Sodium 2 TAB AT BEDTIME 03/28 2200 AC 03/30 PO 2206 Sertraline HCl 100 MG DAILY 03/28 1000 AC 04/01 PO 0916 Sevelamer Carbonate 1,600 MG WM 03/30 1700 AC 04/01 PO 0818 Tamsulosin HCl 0.4 MG DAILY 03/28 1000 AC 04/01 PO 0917 Trazodone HCl 150 MG QPM 03/28 2200 AC 03/31 PO 2123 Trimethobenzamide HCl 200 MG 4 TIMES/DAY PRN 03/31 1730 AC 04/01 IM 1245 Vancomycin HCl 1,250 MG ONCE ONE 03/31 1300 DC 03/31 Sodium Chloride 250 ML IV 03/31 4773 6115 Last 24 Hrs of Lab/Angus Results Last 24 Hrs of Labs/Mics: Laboratory Tests 04/01/17 0605: CBC w Diff NO MAN DIFF REQ, RBC 3.05 L, MCV 79.7 L, MCH 26.7 L, RDW 17.2 H, MPV 9.7, Gran % 84.9 H, Lymphocytes % 8.0 L, Monocytes % 6.7, Eosinophils % 0.1, Basophils % 0.3, Absolute Granulocytes 5.5, Absolute Lymphocytes 0.5 L, Absolute Monocytes 0.4, Absolute Eosinophils 0, Absolute Basophils 0, PUBS MCHC 33.5 03/31/17 1738: CBC w Diff NO MAN DIFF REQ, RBC 3.46 L, MCV 80.6, MCH 26.5 L, RDW 16.9 H, MPV 8.9, Gran % 92.0 H, Lymphocytes % 5.4 L, Monocytes % 1.2 L, Eosinophils % 1.2 , Basophils % 0.2, Absolute Granulocytes 3.2, Absolute Lymphocytes 0.2 L, Absolute Monocytes 0 L, Absolute Eosinophils 0, Absolute Basophils 0, PUBS MCHC 32.9 L 03/31/17 1431: Urinalysis HEAVY H, Urine Color YEL, Urine Clarity CLDY H, Urine pH 5.5, Ur Specific Harmon >= 1.030, Urine Protein >=300 H, Urine Ketones TRACE H, Urine Nitrite NEG, Urine Bilirubin POS@ICTO H, Urine Urobilinogen 0.2, Ur Leukocyte Esterase NEG, Ur Microscopic SEDIMENT EXAMINED, Urine WBC 10-15 H, Granular Casts 5-10 H, Micro UA Comment , Urine Hemoglobin SMALL H, Urine Glucose NEG Microbiology 03/31 1431 URINE ROUT: Urine Culture - RES 03/31 1405 BLOOD: Blood Culture - RES 03/31 1400 BLOOD: Blood Culture - RES Assessment/Plan Assessment: 67 year old Man with PMH of CAD s/p stents (Oct 2016), COPD, T2DM, neuropathy, MILES noncompliant with CPAP, HFpEF, CKD stage 5 s/p AV fistula (January 2017), multiple admits for chest pain, dyspnea and elevated troponins, initiated on HD (TTS) via [facility] during recent admission for fluid overload (03/15-03/23). Problem list 1. Naueas/Vomiting/chills and rigors/. etiology unclear. Could be a dialysis catheter vs ? Acute cholecystitis. Blood culture March 29 one set growing staph coagulase negative. Most likely contamination. 2. Elevated troponins. Most likely secondary to chronic kidney disease and poor clearance. Repeat echocardiogram shows worsening of the apical wall motion abnormality. Ejection fraction approximate 45%. 3. History of end-stage renal disease on dialysis, Tuesday and Tuesday 4. Bilateral cortical and exophytic renal cysts. stable 5. Chronic anemia due to iron deficiency and CKD. H&H 8.11/02.3 today PLAN * Monitor vitals closely. * Followup blood cultures and line culture * Off Abx per ID * RUQ U/S abdomen * NPO * ? Surgical consult * High risk for any surgical intervention for cardiac standpoint * Continue home medications * Subcutaneous heparin for DVT prophylaxis * Full code Problem List: 1. Nausea Pain Ratin Pain Location: none Pain Goal: Pain 4 or less Pain Plan: tylenol Tomorrow's Labs & Rationales: cbc,bep,LFTs DVT/Prophylaxis: pharmacological SVITLANA SMITH MD 04/01/17 1231: Attending MD Review Statement Attending Statement Attending MD Statement: examined this patient, discuss w/resident/PA/TOW PICKER, agreed w/resident/PA/TOW PICKER, reviewed EMR data (avail), discussed with nursing, reviewed images Attending Assessment/Plan: Patient continues to complain of rigors and not feeling good. He also has some nausea. He says his rigors come every day around [address] chest reviewed and it shows mild pericholecystic fluid and possibility of acute cholecystitis. Physical exam rodriguez he has right lower quadrant tenderness I couldn't appreciate significant right upper quadrant tenderness. This is a 67-year-old male with significant coronary artery disease whose had drug-eluting stents placed 2 months ago and is on dual antiplatelet therapy, he also has diabetes and ESRD on hemodialysis via a right IJ catheter. He is being treated for sepsis as evidenced by hypotension, low-grade fever, bacteremia with coag negative staph (but now is of unclear significance). And the issue is the question of acute cholecystitis. He is nothing by mouth awaiting an ultrasound later today and if the ultrasound results are equivocal he'll likely need a HIDA scan. I did speak to the b2b sales representative Dr. Lee and given all of his multiple comorbidities and specifically his significant triple-vessel coronary artery disease he is very high risk for any surgical intervention and will need to talk to ID and surgery based on his ultrasound results.
--- NOTE | 2017-04-01 10:55 | PN- Infect Dx ---
Subjective Subjective: Afebrile. He again had rigors last evening but his night was otherwise uneventful. He does continue to report nausea, with no vomiting, and soft stools, with no abdominal pain. Objective Last 24 Hrs of Vital Signs/I&O Vital Signs Date Time Temp Pulse Resp B/P B/P Pulse O2 O2 Flow FiO2 Mean Ox Delivery Rate 04/01 917 98.1 62 14 102/52 04/01 0917 98.1 62 14 102/52 04/01 0916 98.1 14 102/52 04/01 0915 62 102/52 04/01 0756 98.1 62 14 110/74 93 Room Air 04/01 0030 98.2 60 18 102/52 100 Room Air 04/01 0000 Nasal 2.0L Cannula 03/31 2125 92/50 03/31 2016 97 Room Air Room Air 03/31 1600 Nasal 2.0L Cannula 03/31 1530 98.6 67 18 110/68 95 Room Air 03/31 1419 97 Room Air Room Air 03/31 1416 136/70 03/31 1416 136/60 03/31 1416 136/70 03/31 1416 136/70 Intake & Output 04/01 1600 04/01 0800 04/01 0000 Intake Total 120 60 Output Total 200 100 Balance -80 -40 Intake, Oral 120 60 Number 2 Bowel Movements Output, 100 Emesis Output, Urine 200 Patient 206 lb Weight Weight Chair scale Measurement Method Physical Exam Other Physical Findings: He appears comfortable in no acute distress Neck right IJ Bao catheter with no inflammation at the site Lungs decreased breath sounds at the right base Heart regular rhythm with no murmur Abdomen is soft, tender on deep palpation of the right lower quadrant, with no guarding or rebound, positive bowel sounds Extremities trace edema both lower extremities Results Last 24 Hours of Lab Results: Laboratory Tests 04/01 03/31 0605 1738 Hematology CBC w Diff NO MAN DIFF REQ NO MAN DIFF REQ WBC (4.8 - 10.8 /CUMM) 6.5 3.5 L RBC (4.70 - 6.10 /CUMM) 3.05 L 3.46 L Hgb (14.0 - 18.0 G/DL) 8.1 L 9.2 L Hct (42 - 52 %) 24.3 L 27.9 L MCV (80.0 - 94.0 FL) 79.7 L 80.6 MCH (27.0 - 31.0 PG) 26.7 L 26.5 L RDW (11.5 - 14.5 %) 17.2 H 16.9 H Plt Count (130 - 400 /CUMM) 138 175 MPV (7.4 - 10.4 FL) 9.7 8.9 Gran % (42.2 - 75.2 %) 84.9 H 92.0 H Lymphocytes % (20.5 - 51.1 %) 8.0 L 5.4 L Monocytes % (1.7 - 9.3 %) 6.7 1.2 L Eosinophils % (0 - 5 %) 0.1 1.2 Basophils % (0.0 - 2.0 %) 0.3 0.2 Absolute Granulocytes (1.4 - 6.5 /CUMM) 5.5 3.2 Absolute Lymphocytes (1.2 - 3.4 /CUMM) 0.5 L 0.2 L Absolute Monocytes (0.10 - 0.60 /CUMM) 0.4 0 L Absolute Eosinophils (0.0 - 0.7 /CUMM) 0 0 Absolute Basophils (0.0 - 0.2 /CUMM) 0 0 PUBS MCHC (33.0 - 37.0 G/DL) 33.5 32.9 L 03/31 03/31 1431 1256 Chemistry BUN (9 - 20 mg/dL) 12 Urines Urinalysis HEAVY H Urine Color (YEL,AMB,STR) YEL Urine Clarity (CLEAR) CLDY H Urine pH (5.0 - 8.0) 5.5 Ur Specific [place] (1.001 - 1.035) >= 1.030 Urine Protein (NEG,<30 MG/DL) >=300 H Urine Ketones (NEG) TRACE H Urine Nitrite (NEG) NEG Urine Bilirubin (NEG) POS@ICTO H Urine Urobilinogen (0.1 - 1.0 EU/dl) 0.2 Ur Leukocyte Esterase (NEG) NEG Ur Microscopic SEDIMENT EXAMINED Urine WBC (0 - 2 /HPF) 10-15 H Granular Casts (NONE /LPF) 5-10 H Micro UA Comment Urine Hemoglobin (NEG) SMALL H Urine Glucose (N MG/DL) NEG Last 24 Hours of Angus Results: Blood cultures March 29 one bottle positive for coag-negative Staph Blood cultures March 31 negative so far Urine culture March 31 negative Recent Imaging Studies: CT of the chest March 31 reveals small bilateral pleural effusions, right greater than left, not seen on the previous CT, suggestive of simple fluid or a transudate; elevated right hemidiaphragm with associated right middle lobe atelectasis; collapsed gallbladder with no evidence of calculi, but with mild mural thickening and pericholecystic fluid Assessment/Plan Impression: Recurrent rigors with no further fevers and with white blood cell count remaining normal now on Vancomycin, begun yesterday for one positive blood culture, identified today as a coag-negative Staph, which may represent a contaminant particularly as the repeat blood cultures sent yesterday are so far negative. The CT scan of the chest does suggest possible cholecystitis and, with his continued complaints of nausea and his presenting symptoms of nausea and vomiting with an elevated bilirubin, this should be pursued. Of note his CT of the abdomen and pelvis on admission was negative for any acute process, but was without contrast. Suggestion: 1. Right upper quadrant ultrasound 2. Further evaluation, for example HIDA scan, based on above 3. Follow-up recent cultures 4. Follow off antibiotics pending above
--- NOTE | 2017-04-01 11:00 | NUR ---
PATIENT HAD AN EPISODE OF SHIVERING ACCOMPANIED WITH NAUSEA. PATIENT REPORTED HAVING THE CHILLS. TEMP 97.8. BP 100/48. HR 68. DR SMITH AWARE OF PATIENT HAVING THESE EPISODES. ABDOMINAL U/S ORDERED. PATIENT GIVEN TIGAN IM FOR NAUSEA. PATIENT REPORTED HAVING THESE SYMPTOMS DAILY WHICH LASTED FOR APPRX 2HRS AND HE HAS BEING SEEING ID DOCTOR. HE IS CURRENTLY ON IV VANCO. LAST DIALYZE 03/31. HE REMAINS ALERT AND ORIENTATED DURING EPISODE. WILL CONTINUE TO MONITOR.
--- NOTE | 2017-04-01 13:12 | PN- Cardiology ---
Subjective Subjective: The patient is doing okay from a cardiac standpoint. He had another episode of [place] and sweats earlier this morning. Feeling better now. Infectious disease input noted. Objective Vital Signs and I&Os Vital Signs Date Time Temp Pulse Resp B/P B/P Pulse O2 O2 Flow FiO2 Mean Ox Delivery Rate 04/01 1136 91 Room Air Room Air 04/01 0917 98.1 62 14 102/52 04/01 0917 98.1 62 14 102/52 04/01 0916 98.1 14 102/52 04/01 0915 62 102/52 04/01 0756 98.1 62 14 110/74 93 Room Air 04/01 0030 98.2 60 18 102/52 100 Room Air 04/01 0000 Nasal 2.0L Cannula 03/31 2125 92/50 03/31 2016 97 Room Air Room Air 03/31 1600 Nasal 2.0L Cannula 03/31 1530 98.6 67 18 110/68 95 Room Air 03/31 1419 97 Room Air Room Air 03/31 1416 136/70 03/31 1416 136/60 03/31 1416 136/70 03/31 1416 136/70 Intake & Output 04/01 1600 04/01 0800 04/01 0000 03/31 1600 03/31 0800 03/31 0000 Intake Total 240 21 5471 220 1120 Output Total 200 100 200 300 Balance -80 -40 2250 -80 1120 Intake, 2000 Dialysate Intake, IV 50 1000 Intake, Oral 120 60 400 220 120 Number 2 1 Bowel Movements Output, 100 Emesis Output, Urine 200 200 300 Patient 206 lb 211 lb Weight Weight Chair scale Chair scale Measurement Method Current Medications: Current Medications Sig/Julissa Start time Last Medication Dose Route Stop Time Status Admin Acetaminophen 650 MG Q6P PRN 03/27 2200 AC 04/01 PO 1253 Acetaminophen 1,000 MG Q8P PRN 03/27 2200 AC IV Albuterol Sulfate 3 ML Q4H PRN 03/28 930 AC INH Albuterol Sulfate 2 PUF Q4P PRN 03/27 2215 AC INH Alprazolam 0.5 MG BID PRN 03/27 2215 AC 04/01 PO 04/0316 Aspirin Buffered 81 MG AT BEDTIME 03/28 2200 AC 03/31 PO 2122 Atorvastatin Calcium 80 MG AT BEDTIME 03/28 2200 AC 03/31 PO 2123 Budesonide/ 2 PUF BID 03/27 2211 AC 04/01 Formoterol Fumarate INH 0912 Clonidine 0.1 MG BID 03/28 1000 AC 03/31 PO 1416 Clopidogrel Bisulfate 75 MG DAILY 03/28 1000 AC 04/01 PO 0916 Epoetin [place] 8,000 UNIT TuThSa PRN 03/29 1100 AC IV Folic Acid 1 MG DAILY 03/28 1000 AC 04/01 PO 0917 Furosemide 80 MG DAILY 03/28 1000 AC 04/01 PO 0917 Heparin Sodium 5,000 UNIT Q8 03/28 0600 AC 04/01 (Porcine) SC 0603 Insulin Aspart 0 TIDAC 03/28 0800 AC 03/30 SC 1148 Isosorbide 60 MG DAILY 03/28 1000 AC 03/31 Mononitrate PO 1416 Levothyroxine Sodium 0.2 MG DAILY AC 03/28 0700 AC 04/01 PO 0603 Metoprolol Tartrate 100 MG DAILY 03/28 1000 AC 04/01 PO 0916 Polyethylene Glycol 17 GM DAILY 03/28 1353 AC 03/30 PO 1139 Prochlorperazine 10 MG Q6-PRN PRN 03/27 2215 AC 04/01 IV 1030 Ramelteon 8 MG AT BEDTIME 03/28 2200 AC 03/31 PO 2123 Senna/Docusate Sodium 2 TAB AT BEDTIME 03/28 2200 AC 03/30 PO 2206 Sertraline HCl 100 MG DAILY 03/28 1000 AC 04/01 PO 0916 Sevelamer Carbonate 1,600 MG WM 03/30 1700 AC 04/01 PO 0818 Tamsulosin HCl 0.4 MG DAILY 03/28 1000 AC 04/01 PO 0917 Trazodone HCl 150 MG QPM 03/28 2200 AC 03/31 PO 2123 Trimethobenzamide HCl 200 MG 4 TIMES/DAY PRN 03/31 1730 AC 04/01 IM 1245 Vancomycin HCl 1,250 MG ONCE ONE 03/31 1300 DC 03/31 Sodium Chloride 250 ML IV 03/31 1359 1445 Results Last 48 Hrs of Labs/Mics: Laboratory Tests 04/01/17 0605: CBC w Diff NO MAN DIFF REQ, RBC 3.05 L, MCV 79.7 L, MCH 26.7 L, RDW 17.2 H, MPV 9.7, Gran % 84.9 H, Lymphocytes % 8.0 L, Monocytes % 6.7, Eosinophils % 0.1, Basophils % 0.3, Absolute Granulocytes 5.5, Absolute Lymphocytes 0.5 L, Absolute Monocytes 0.4, Absolute Eosinophils 0, Absolute Basophils 0, PUBS MCHC 33.5 03/31/17 1738: CBC w Diff NO MAN DIFF REQ, RBC 3.46 L, MCV 80.6, MCH 26.5 L, RDW 16.9 H, MPV 8.9, Gran % 92.0 H, Lymphocytes % 5.4 L, Monocytes % 1.2 L, Eosinophils % 1.2 , Basophils % 0.2, Absolute Granulocytes 3.2, Absolute Lymphocytes 0.2 L, Absolute Monocytes 0 L, Absolute Eosinophils 0, Absolute Basophils 0, PUBS MCHC 32.9 L 03/31/17 1431: Urinalysis HEAVY H, Urine Color YEL, Urine Clarity CLDY H, Urine pH 5.5, Ur Specific [place] >= 1.030, Urine Protein >=300 H, Urine Ketones TRACE H, Urine Nitrite NEG, Urine Bilirubin POS@ICTO H, Urine Urobilinogen 0.2, Ur Leukocyte Esterase NEG, Ur Microscopic SEDIMENT EXAMINED, Urine WBC 10-15 H, Granular Casts 5-10 H, Micro UA Comment , Urine Hemoglobin SMALL H, Urine Glucose NEG 03/31/17 1256: 03/31/17 0921: Troponin I Cancelled 03/31/17 0830: Anion Gap 10, Estimated GFR 12 L, BUN/Creatinine Ratio 8.6, Calcium 6.7 L, Phosphorus 4.5, Magnesium 2.4 H, Albumin 3.3 L, CBC w Diff NO MAN DIFF REQ, RBC 2.91 L, MCV 81.3, MCH 25.9 L, RDW 16.8 H, MPV 9.2, Gran % 77.2 H, Lymphocytes % 11.9 L, Monocytes % 8.6, Eosinophils % 1.9, Basophils % 0.4, Absolute Granulocytes 3.7, Absolute Lymphocytes 0.6 L, Absolute Monocytes 0.4, Absolute Eosinophils 0.1, Absolute Basophils 0, PUBS MCHC 31.9 L 03/31/17 0739: Urine Color Cancelled, Urine Clarity Cancelled, Urine pH Cancelled, Ur Specific [place] Cancelled, Urine Protein Cancelled, Urine Ketones Cancelled, Urine Nitrite Cancelled, Urine Bilirubin Cancelled, Urine Urobilinogen Cancelled, Ur Leukocyte Esterase Cancelled, Ur Microscopic Cancelled, Urine Hemoglobin Cancelled, Urine Glucose Cancelled 03/31/17 0700: CBC w Diff Cancelled, WBC Cancelled, RBC Cancelled, Hgb Cancelled, Hct Cancelled , MCV Cancelled, MCH Cancelled, RDW Cancelled, Plt Count Cancelled, MPV Cancelled, PUBS MCHC Cancelled 03/31/17 0640: Troponin I 4.64 *H 03/31/17 0115: Troponin I 5.12 *H 03/30/17 1915: Troponin I 2.76 *H Assessment/Plan Assessment/Plan Assessment: #Viral gastroenteritis #Elevated troponin which is most likely related to demand ischemia in the setting of chronic kidney disease #CHFrEF #CKD stage V on dialysis #Chronic hypoxic respiratory failure related to COPD/obstructive sleep apnea on 2 L oxygen Recommendations: -Continue as outlined - Repeat echocardiogram shows worsening of the apical wall motion abnormality. Current ejection fraction approximate 45%. -Infectious disease input noted. Possibility of cholecystitis noted. Gallbladder ultrasound pending. Further plans after that. -From the point of view of the patient's cardiac status, the patient would be elevated at elevated risk for any surgical intervention. The patient had 2 high risk drug eluting stents placed in late October. If at all possible, his dual antiplatelet regimen should be maintained. In addition, the patient had a recent elevated troponin of greater than 5 and his echocardiogram shows worsening of his left ventricular function with worsening of his apical wall motion abnormality. Any consideration for a cholecystostomy tube would have to taken to consideration the fact that we will prefer to avoid any interruption of his dual antiplatelet regimen.
--- NOTE | 2017-04-01 15:24 | ULTRASOUND REPORT ---
EXAMINATION: US ABDOMEN COMPLETE CLINICAL INFORMATION: CT chest suspects acute cholecystitis. COMPARISON: CT chest 03/31/2017, CT abdomen and pelvis 03/27/2017. TECHNIQUE: Real-time imaging of the abdominal viscera. Technically difficult exam due to overlying bowel gas. FINDINGS: PANCREAS: The visualized pancreatic head and body are unremarkable. The tail is obscured by bowel gas. ABDOMINAL AORTA: Not well visualized. INFERIOR VENA CAVA: Visualized portions are normal. LIVER: Normal. The liver demonstrates normal size, contour and echogenicity. No focal lesion or intrahepatic biliary duct dilatation. GALLBLADDER: The gallbladder is physiologically distended, no gallstones or sludge identified. There is gallbladder wall thickening measuring 8 mm with a small amount of pericholecystic fluid. The sonographic Lester's sign is reportedly negative. COMMON BILE DUCT: Normal in caliber measuring 3 cm in diameter. RIGHT KIDNEY: A 3.7 x 3.9 x 3.7 cm cyst in the upper pole of the right kidney. No hydronephrosis or renal calculi are identified. There is increased renal cortical echogenicity. The kidney measures 9.6 cm in maximum dimension. LEFT KIDNEY: A 3.1 x 3.6 x 3.5 cm cyst in the lower pole of the left kidney and a 1.6 x 1.5 x 1.2 cm cyst in the interpolar region of the left kidney. There is increased renal cortical echogenicity. No hydronephrosis. No renal calculi or focal parenchymal lesions. The kidney measures 11.2 cm in maximum dimension. SPLEEN: The spleen is enlarged measuring 16 cm in maximal diameter. FREE FLUID: There is a right-sided pleural effusion noted. IMPRESSION: 1. Gallbladder wall thickening and a small amount of pericholecystic fluid is present. No stones or sludge identified within the gallbladder and sonographic Lester's sign is reportedly negative. Findings are nonspecific. If there is clinical concern for acute cholecystitis, would recommend further evaluation with a HIDA scan. 2. Bilateral renal cysts. Increased renal parenchymal echogenicity suggests underlying medical renal disease. 3. Mild splenomegaly. 4. Right pleural effusion.
--- NOTE | 2017-04-01 16:12 | PN- Nephrology ---
Assessment/Plan Assessment: 1. ESRD secondary to diabetic nephropathy - on hemodialysis Tuesday, and Tuesday 2. Transient vomiting and fever with one of 4 blood cultures positive for coag neg staph; yesterday's culture results x3 pending; afebrile last 48 hrs, with normal WBC 3. Imaging studies --> R pleral effusion, increase GB wall thickness without calculi or sludge; T.bili 2.0, o/w nl LFT's 4. Elevated troponins likely secondary to demand ischemia in setting of CKD 5. 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 Consider HIDA scan 2. Hemodialysis tomorrow; will increase dialysate calcium to 3.0 mEq per liter 3. Observe off abx per ID, pending culture results Subjective Subjective: Patient had rigors again last evening but he remains afebrile with normal WBC. One of 4 blood cultures have grown coagulase-negative staph; results of 3 blood cultures from yesterday still pending. Imaging studies showed a right pleural effusion and thickness of the gallbladder wall but without cholelithiasis or sludge. LFTs have been normal except for an elevated total bilirubin of 2.0. Objective Vital Signs and I&Os Vital Signs Date Time Temp Pulse Resp B/P B/P Pulse O2 O2 Flow FiO2 Mean Ox Delivery Rate 04/01 1319 97.6 96 Nasal 2.0L Cannula 04/01 1136 91 Room Air Room Air 04/01 0917 98.1 62 14 102/52 04/01 0917 98.1 62 14 102/52 04/01 0916 98.1 14 102/52 04/01 0915 62 102/52 04/01 0756 98.1 62 14 110/74 93 Room Air 04/01 0030 98.2 60 18 102/52 100 Room Air 04/01 0000 Nasal 2.0L Cannula 03/31 2125 92/50 03/31 2016 97 Room Air Room Air Intake & Output 04/01 1600 04/01 0400 03/31 1600 03/31 0400 03/30 1600 03/30 0400 Intake Total 028 08 3331 1120 1320 120 Output Total 200 734 468 0401 Balance 160 -40 2170 1120 -380 120 Intake, 2000 Dialysate Intake, IV 50 1000 Intake, Oral 360 60 431 182 0588 120 Number 2 1 1 Bowel Movements Output, 100 Emesis Output, Urine 974 257 9711 Patient 206 lb 211 lb 206 lb 205 lb Weight Weight Chair scale Chair scale Chair scale Chair scale Measurement Method Physical Exam: General: Well-developed white male in no acute distress Skin: No rash or jaundice HEENT: Conjunctivae pink, sclerae anicteric, mucous membranes moist Chest: Clear with diminished breath sounds at right base Heart: Regular rate and rhythm without S3 or rub Abdomen: Soft and nontender without palpable masses or organomegaly; +/- Lester sign Extremities: Without cyanosis or edema; the left upper arm AVF is patent Neuro: No asterixis or myoclonus Current Medications: Current Medications Sig/Julissa Start time Last Medication Dose Route Stop Time Status Admin Acetaminophen 650 MG Q6P PRN 03/27 2200 AC 04/01 PO 1253 Acetaminophen 1,000 MG Q8P PRN 03/27 2200 AC IV Albuterol Sulfate 3 ML Q4H PRN 03/28 0930 AC INH Albuterol Sulfate 2 PUF Q4P PRN 03/27 221 AC INH Alprazolam 0.5 MG BID PRN 03/27 2215 AC 04/01 PO 04/03 221 0916 Aspirin Buffered 81 MG AT BEDTIME 03/28 2200 AC 03/31 PO 2123 Atorvastatin Calcium 80 MG AT BEDTIME 03/28 2200 AC 03/31 PO 2123 Budesonide/ 2 PUF BID 03/27 221 AC 04/01 Formoterol Fumarate INH 0912 Clonidine 0.1 MG BID 03/28 1000 AC 03/31 PO 1416 Clopidogrel Bisulfate 75 MG DAILY 03/28 1000 AC 04/01 PO 0916 Epoetin [place] 8,000 UNIT TuThSa PRN 03/29 1100 AC IV Folic Acid 1 MG DAILY 03/28 1000 AC 04/01 PO 0917 Furosemide 80 MG DAILY 03/28 1000 AC 04/01 PO 0917 Heparin Sodium 5,000 UNIT Q8 03/28 06 AC 04/01 (Porcine) SC 1406 Insulin Aspart 0 TIDAC 03/28 0800 AC 03/30 SC 1148 Isosorbide 60 MG DAILY 03/28 1000 AC 03/31 Mononitrate PO 1416 Levothyroxine Sodium 0.2 MG DAILY AC 03/28 0700 AC 04/01 PO 0603 Metoprolol Tartrate 100 MG DAILY 03/28 1000 AC 04/01 PO 0916 Polyethylene Glycol 17 GM DAILY 03/28 1353 AC 03/30 PO 1139 Prochlorperazine 10 MG Q6-PRN PRN 03/27 2215 AC 04/01 IV 1030 Ramelteon 8 MG AT BEDTIME 03/28 2200 AC 03/31 PO 2123 Senna/Docusate Sodium 2 TAB AT BEDTIME 03/28 2200 AC 03/30 PO 2206 Sertraline HCl 100 MG DAILY 03/28 1000 AC 04/01 PO 0916 Sevelamer Carbonate 1,600 MG WM 03/30 1700 AC 04/01 PO 0818 Tamsulosin HCl 0.4 MG DAILY 03/28 1000 AC 04/01 PO 0917 Trazodone HCl 150 MG QPM 03/28 2200 AC 03/31 PO 2123 Trimethobenzamide HCl 200 MG 4 TIMES/DAY PRN 03/31 1730 AC 04/01 IM 1245 Results Pertinent Lab Results: Laboratory Tests 04/01 03/31 0605 1738 Hematology CBC w Diff NO MAN DIFF REQ NO MAN DIFF REQ WBC (4.8 - 10.8 /CUMM) 6.5 3.5 L RBC (4.70 - 6.10 /CUMM) 3.05 L 3.46 L Hgb (14.0 - 18.0 G/DL) 8.1 L 9.2 L Hct (42 - 52 %) 24.3 L 27.9 L MCV (80.0 - 94.0 FL) 79.7 L 80.6 MCH (27.0 - 31.0 PG) 26.7 L 26.5 L RDW (11.5 - 14.5 %) 17.2 H 16.9 H Plt Count (130 - 400 /CUMM) 138 175 MPV (7.4 - 10.4 FL) 9.7 8.9 Gran % (42.2 - 75.2 %) 84.9 H 92.0 H Lymphocytes % (20.5 - 51.1 %) 8.0 L 5.4 L Monocytes % (1.7 - 9.3 %) 6.7 1.2 L Eosinophils % (0 - 5 %) 0.1 1.2 Basophils % (0.0 - 2.0 %) 0.3 0.2 Absolute Granulocytes (1.4 - 6.5 /CUMM) 5.5 3.2 Absolute Lymphocytes (1.2 - 3.4 /CUMM) 0.5 L 0.2 L Absolute Monocytes (0.10 - 0.60 /CUMM) 0.4 0 L Absolute Eosinophils (0.0 - 0.7 /CUMM) 0 0 Absolute Basophils (0.0 - 0.2 /CUMM) 0 0 PUBS MCHC (33.0 - 37.0 G/DL) 33.5 32.9 L 03/31 03/31 03/31 1431 1256 0921 Chemistry BUN (9 - 20 mg/dL) 12 Troponin I Cancelled Urines Urinalysis HEAVY H Urine Color (YEL,AMB,STR) YEL Urine Clarity (CLEAR) CLDY H Urine pH (5.0 - 8.0) 5.5 Ur Specific [place] (1.001 - 1.035) >= 1.030 Urine Protein (NEG,<30 MG/DL) >=300 H Urine Ketones (NEG) TRACE H Urine Nitrite (NEG) NEG Urine Bilirubin (NEG) POS@ICTO H Urine Urobilinogen (0.1 - 1.0 EU/dl) 0.2 Ur Leukocyte Esterase (NEG) NEG Ur Microscopic SEDIMENT EXAMINED Urine WBC (0 - 2 /HPF) 10-15 H Granular Casts (NONE /LPF) 5-10 H Micro UA Comment Urine Hemoglobin (NEG) SMALL H Urine Glucose (N MG/DL) NEG 03/31 03/31 03/31 0830 0739 0700 Chemistry Sodium (137 - 145 mmol/L) 130 L Potassium (3.5 - 5.1 mmol/L) 3.8 Chloride (98 - 107 mmol/L) 97 L Carbon Dioxide (22 - 30 mmol/L) 24 Anion Gap (5 - 16) 10 BUN (9 - 20 mg/dL) 42 H Creatinine (0.7 - 1.2 mg/dL) 4.9 H Estimated GFR (>60 ml/min) 12 L BUN/Creatinine Ratio (7 - 25 %) 8.6 Calcium (8.4 - 10.2 mg/dL) 6.7 L Phosphorus (2.5 - 4.5 mg/dL) 4.5 Magnesium (1.6 - 2.3 mg/dL) 2.4 H Albumin (3.5 - 5.0 g/dL) 3.3 L Hematology CBC w Diff NO MAN DIFF REQ Cancelled WBC (4.8 - 10.8 /CUMM) 4.8 Cancelled RBC (4.70 - 6.10 /CUMM) 2.91 L Cancelled Hgb (14.0 - 18.0 G/DL) 7.6 L Cancelled Hct (42 - 52 %) 23.7 L Cancelled MCV (80.0 - 94.0 FL) 81.3 Cancelled MCH (27.0 - 31.0 PG) 25.9 L Cancelled RDW (11.5 - 14.5 %) 16.8 H Cancelled Plt Count (130 - 400 /CUMM) 127 L Cancelled MPV (7.4 - 10.4 FL) 9.2 Cancelled Gran % (42.2 - 75.2 %) 77.2 H Lymphocytes % (20.5 - 51.1 %) 11.9 L Monocytes % (1.7 - 9.3 %) 8.6 Eosinophils % (0 - 5 %) 1.9 Basophils % (0.0 - 2.0 %) 0.4 Absolute Granulocytes (1.4 - 6.5 /CUMM) 3.7 Absolute Lymphocytes (1.2 - 3.4 /CUMM) 0.6 L Absolute Monocytes (0.10 - 0.60 /CUMM) 0.4 Absolute Eosinophils (0.0 - 0.7 /CUMM) 0.1 Absolute Basophils (0.0 - 0.2 /CUMM) 0 PUBS MCHC (33.0 - 37.0 G/DL) 31.9 L Cancelled Urines Urine Color Cancelled Urine Clarity Cancelled Urine pH Cancelled Ur Specific [place] Cancelled Urine Protein Cancelled Urine Ketones Cancelled Urine Nitrite Cancelled Urine Bilirubin Cancelled Urine Urobilinogen Cancelled Ur Leukocyte Esterase Cancelled Ur Microscopic Cancelled Urine Hemoglobin Cancelled Urine Glucose Cancelled 03/31 03/31 03/30 0640 0115 1915 Chemistry Troponin I (<0.11 ng/ml) 4.64 *H 5.12 *H 2.76 *H 03/30 0900 Chemistry Sodium (137 - 145 mmol/L) 132 L Potassium (3.5 - 5.1 mmol/L) 4.1 Chloride (98 - 107 mmol/L) 95 L Carbon Dioxide (22 - 30 mmol/L) 26 Anion Gap (5 - 16) 11 BUN (9 - 20 mg/dL) 26 H Creatinine (0.7 - 1.2 mg/dL) 3.9 H Estimated GFR (>60 ml/min) 16 L BUN/Creatinine Ratio (7 - 25 %) 6.7 L Hematology CBC w Diff NO MAN DIFF REQ WBC (4.8 - 10.8 /CUMM) 3.4 L RBC (4.70 - 6.10 /CUMM) 3.33 L Hgb (14.0 - 18.0 G/DL) 8.8 L Hct (42 - 52 %) 27.0 L MCV (80.0 - 94.0 FL) 81.1 MCH (27.0 - 31.0 PG) 26.5 L RDW (11.5 - 14.5 %) 17.1 H Plt Count (130 - 400 /CUMM) 128 L MPV (7.4 - 10.4 FL) 9.2 Gran % (42.2 - 75.2 %) 67.8 Lymphocytes % (20.5 - 51.1 %) 18.8 L Monocytes % (1.7 - 9.3 %) 10.7 H Eosinophils % (0 - 5 %) 2.3 Basophils % (0.0 - 2.0 %) 0.4 Absolute Granulocytes (1.4 - 6.5 /CUMM) 2.3 Absolute Lymphocytes (1.2 - 3.4 /CUMM) 0.6 L Absolute Monocytes (0.10 - 0.60 /CUMM) 0.4 Absolute Eosinophils (0.0 - 0.7 /CUMM) 0.1 Absolute Basophils (0.0 - 0.2 /CUMM) 0 PUBS MCHC (33.0 - 37.0 G/DL) 32.7 L
--- NOTE | 2017-04-01 16:52 | ECHOCARDIOGRAM REPORT ---
DEEPIKA BRANDT Age: 67 : 1950 Gender: M Exam Date: 03/31/2017 18:49 Exam Location: [place] Ht (in): 70 Wt (lb): 211 BSA: 2.20 BP: 136 / 70 Ordering Physician: VICTORIA RUSSELL MD Referring Physician: Lilibeth Lee MD Technologist: Pebbles Joseph [facility] Room Number: 176 Indications: HYPOTENSION Rhythm: Sinus Technical Quality: Fair, Technically difficult study FINDINGS Left Ventricle Normal size left ventricle. Hypokinetic septum. Allen akinetic. Mildly abnormal left ventricular ejection fraction estimated at 40- 45%. Right Ventricle Right ventricle not well visualized, grossly normal. Right Atrium Normal right atrial size. Left Atrium Mild to moderate left atrial dilatation. Mitral Valve Mitral valve thickened. Mild mitral annular calcification. Mild mitral regurgitation. Aortic Valve Trileaflet aortic valve. Diffuse thickening (sclerosis) of the aortic valve cusps without reduced excursion. No aortic stenosis. No aortic regurgitation. Tricuspid Valve Tricuspid valve not well visualized, grossly normal. Mild-to- moderate tricuspid regurgitation. Right ventricular systolic pressure estimated at 38 mmHg. Pulmonic Valve Pulmonic valve not well visualized, grossly normal. Mild pulmonic regurgitation. Pericardium No pericardial effusion. Normal pericardium. Great Vessels Aortic root and proximal ascending aorta not well visualized, grossly normal. CONCLUSIONS 1. MIld to moderate aortic sclerosis is present with no valvular stenosis or insufficiency. 2. Mitral leaflet thickening is present with mild to moderate anular calcification and mild mitral insufficiency with mild to moderate left atrial enlargement. 3. There is no pericardial fluid detected on this study. 4. The left ventricular chamber size is normal with mild LVH and an ejection fraction of approximately 45%. There is hypokines of the septum and essential akinesia with some dyskinesia of the apical segments with no evidence of thrombus. Additional images were obtained after the administration of IV contrast. 5. Mild to moderate tricuspid insufficiency is present with mild pulmonic insufficiency and no significant pulmonary hypertension. 6. Since the prior study, the apical wall motion abnormality appears to be worse and the LV ejection fraction has decreased slightly. Lilibeth Lee M.D. (Electronically Signed) Final Date: 01 April 2017 16:51 MEASUREMENTS (Male / Female) Normal Values 2D ECHO LV Diastolic Diameter PLAX 5.1 cm 4.2 - 5.9 / 3.9 - 5.3 cm LV Systolic Diameter PLAX 3.6 cm 2.1 - 4.0 cm LV Fractional Shortening PLAX 29.4 % 25 - 46 % LV Ejection Fraction 2D Teich 56.0 % IVS Diastolic Thickness 1.1 cm LVPW Diastolic Thickness 1.2 cm LV Relative Wall Thickness 0.5 RV Internal Dim ED PLAX 2.8 cm 1.9 - 3.8 cm LVOT Diameter 2.1 cm Aortic Root Diameter 3.1 cm LA Systolic Diameter LX 4.5 cm 3.0 - 4.0 / 2.7 - 3.8 cm LA Volume 56.0 cm 18 - 58 / 22 - 52 cm Ascending Aorta Diameter 3.3 cm DOPPLER AV Peak Velocity 131.0 cm/s AV Peak Gradient 6.9 mmHg AV Mean Velocity 94.7 cm/s AV Mean Gradient 4.0 mmHg AV Velocity Time Integral 26.1 cm LVOT Peak Velocity 119.0 cm/s LVOT Peak Gradient 5.7 mmHg LVOT Mean Velocity 81.5 cm/s LVOT Mean Gradient 3.0 mmHg LVOT Velocity Time Integral 18.7 cm LVOT Stroke Volume 64.8 cm AV Area Cont Eq vti 2.5 cm AV Area Cont Eq pk 3.1 cm MV Peak Velocity 96.3 cm/s MV Peak Gradient 3.7 mmHg MV Mean Velocity 51.9 cm/s MV Mean Gradient 1.0 mmHg Mitral E Point Velocity 98.2 cm/s Mitral A Point Velocity 68.6 cm/s Mitral E to A Ratio 1.4 MV PHT Velocity 100.0 cm/s MV Deceleration Elk 487.0 cm/s MV Pressure Half Time 61.6 ms MV Area PHT 3.6 cm MV Deceleration Time 177.0 ms TR Peak Velocity 282.0 cm/s TR Peak Gradient 31.8 mmHg Right Atrial Pressure 5.0 mmHg Pulmonary Artery Systolic Pressu 36.8 mmHg Right Ventricular Systolic Press 36.8 mmHg PV Peak Velocity 99.3 cm/s PV Peak Gradient 3.9 mmHg PV Mean Velocity 67.5 cm/s PV Mean Gradient 2.0 mmHg PV Velocity Time Integral 20.8 cm LV E' Lateral Velocity 15.6 cm/s Mitral E to LV E' Lateral Ratio 6.3 LV E' Septal Velocity 6.2 cm/s Mitral E to LV E' Septal Ratio 15.7
[2017-04-01 17:40] VITALS: BP 108/58
--- NOTE | 2017-04-01 17:46 | NUCLEAR MEDICINE REPORT ---
EXAMINATION: NM HIDA SCAN CLINICAL INFORMATION: Acute cholecystitis. COMPARISON: Ultrasound performed earlier the same day. TECHNIQUE: Exam was performed after injection of 5.7 mCi of technetium 99m Choletec. Images were acquired over a 45 minute time period. FINDINGS: There is normal uptake of radiopharmaceutical in the gallbladder with excretion into the duodenum. No ejection fraction was calculated. IMPRESSION: Normal hepatobiliary scan.
[2017-04-01 23:28] VITALS: BP 102/58
[2017-04-02 08:34] VITALS: BP 112/62
[2017-04-02 09:12] LABS: ABSOLUTE BASOPHIL COUNT 0 /CUMM (0.0-0.2); ABSOLUTE EOSINOPHIL COUNT 0.1 /CUMM (0.0-0.7); ABSOLUTE GRANULOCYTE CT 4.1 /CUMM (1.4-6.5); ABSOLUTE LYMPH COUNT 0.7 /CUMM (1.2-3.4); ABSOLUTE MONOCYTE COUNT 0.7 /CUMM (0.10-0.60); BASOPHIL % 0.3 % (0.0-2.0); EOSINOPHIL % 1.8 % (0-5); GRANULOCYTE % 73.3 % (42.2-75.2); HEMATOCRIT 23.5 % (42-52); MEAN CORPUSCULAR HGB 26.1 PG (27.0-31.0); MEAN CORPUSCULAR HGB CONC 32.3 G/DL (33.0-37.0); MEAN CORPUSCULAR VOLUME 80.9 FL (80.0-94.0); MEAN PLATELET VOLUME 10.2 FL (7.4-10.4); PLATELET COUNT 129 /CUMM (130-400); RBC DISTRIBUTION WIDTH 16.8 % (11.5-14.5); RED BLOOD CELL CT 2.91 /CUMM (4.70-6.10); WHITE BLOOD CELL COUNT 5.6 /CUMM (4.8-10.8)
--- NOTE | 2017-04-02 10:24 | PN- Housestaff ---
LUKE ELDRIDGE,DAILY 04/02/17 1024: Subjective Follow-up For: Gram-positive Septicemia , probably secondary to dialysis catheter infection Complaints: abdominal discomfort, distension Tele-Events Since Last Visit: Normal sinus rhythm, heart rate between 59-68, No any overnight events Subjective: Patient is seen and examined at the bedside. He was feeling better but he still having abdominal discomfort. He had a soft bowel movement. Denies of any loose bowel movement. He thinks Maalox help him, for a while. We discussed and I added the Maalox and famotidine in regular doses. I was called by the pharmacy that Maalox is not appropriate for patient with chronic kidney disease. We stopped Maalox start patient on simethicon. We also decreased the dose of famotidine to once a day. Discussed with Dr. Larios, that his blood culture is growing gram-positive cocci in clusters. He advised to take the blood culture from the venous side and catheter site. He also advised to do randam vancomycin level, which come back as 8.4. Discussed with the pharmacy and we gave one dose of 1 gram of vancomycin. Patient again had an episode of chills in evening around 4 o'clock. Review of Systems Constitutional: Reports: no symptoms. Gastrointestinal: Reports: abdominal pain, bloating, distention. Objective Last 24 Hrs of Vital Signs/I&O Vital Signs Date Time Temp Pulse Resp B/P B/P Pulse O2 O2 Flow FiO2 Mean Ox Delivery Rate 04/02 2150 96 Nasal 2.0L Cannula 04/02 1706 98.8 69 20 110/60 94 Nasal 2.0L Cannula 04/02 1330 74 150/72 04/02 1330 97.3 74 150/72 04/02 1330 97.3 74 150/72 04/02 1330 97.3 74 18 150/72 04/02 0834 97.3 63 18 112/62 98 Room Air 04/02 0000 Nasal 2.0L Cannula 04/01 2328 98.9 61 18 102/58 95 Room Air 04/01 2235 62 112/60 Intake & Output 04/02 1600 04/02 0800 04/02 0000 Intake Total 240 100 320 Output Total 1500 0 120 Balance -1260 100 200 Intake, Oral 240 100 320 Output, 1500 Dialysate Output, Urine 0 120 Patient 94.404 kg 95.254 kg Weight Weight Chair scale Standing Scale Measurement Method Physical Exam General Appearance: Alert, Oriented X3, Cooperative, Mild Distress Skin: pale Cardiovascular: Normal S1, Normal S2 Lungs: Clear to Auscultation, Normal Air Movement Abdomen: Soft, tender,distended, bowel sounds is positive Extremities: No Clubbing, No Cyanosis, No Edema Current Medications: Current Medications Sig/Julissa Start time Last Medication Dose Route Stop Time Status Admin Acetaminophen 650 MG Q6P PRN 03/27 2200 AC 04/02 PO 1657 Acetaminophen 1,000 MG Q8P PRN 03/27 2200 AC IV Al Hydroxide/Mg 30 ML Q6 04/02 1350 DC Hydroxide PO Al Hydroxide/Mg 30 ML ONCE ONE 04/02 0515 DC 04/02 Hydroxide PO 04/02 0516 0513 Al Hydroxide/Mg 30 ML .STK-MED ONE 04/02 0314 DC Hydroxide PO 04/02 0315 Al Hydroxide/Mg 30 ML ONCE ONE 04/01 2215 DC 04/01 Hydroxide PO 04/01 221 2220 Al Hydroxide/Mg 30 ML .STK-MED ONE 04/01 2204 DC Hydroxide PO 04/01 2205 Albuterol Sulfate 3 ML Q4H PRN 03/28 0930 AC INH Albuterol Sulfate 2 PUF Q4P PRN 03/27 2215 AC INH Alprazolam 0.5 MG BID PRN 03/27 2215 AC 04/02 PO 04/03 2214 2141 Aspirin Buffered 81 MG AT BEDTIME 03/28 2200 AC 04/02 PO 2141 Atorvastatin Calcium 80 MG AT BEDTIME 03/28 2200 AC 04/02 PO 2142 Budesonide/ 2 PUF BID 03/27 2211 AC 04/02 Formoterol Fumarate INH 2141 Clonidine 0.1 MG BID 03/28 1000 AC 04/02 PO 2141 Clopidogrel Bisulfate 75 MG DAILY 03/28 1000 AC 04/02 PO 1329 Epoetin [place] 8,000 UNIT TuThSa PRN 03/29 1100 AC IV Famotidine 20 MG DAILY 04/03 1000 AC PO Famotidine 20 MG BID 04/02 1400 DC PO Famotidine 20 MG ONCE ONE 04/02 0715 DC 04/02 PO 04/02 0716 0728 Folic Acid 1 MG DAILY 03/28 1000 AC 04/02 PO 1331 Furosemide 80 MG DAILY 03/28 1000 AC 04/02 PO 1330 Heparin Sodium 5,000 UNIT Q8 03/28 0600 AC 04/02 (Porcine) SC 2147 Insulin Aspart 0 TIDAC 03/28 0800 AC 04/02 SC 1804 Isosorbide 60 MG DAILY 03/28 1000 AC 04/02 Mononitrate PO 1330 Levothyroxine Sodium 0.2 MG DAILY AC 03/28 0700 AC 04/02 PO 0630 Metoprolol Tartrate 100 MG DAILY 03/28 1000 AC 04/02 PO 1330 Polyethylene Glycol 17 GM DAILY 03/28 1353 AC 03/30 PO 1139 Prochlorperazine 10 MG Q6-PRN PRN 03/27 2215 AC 04/02 IV 1323 Ramelteon 8 MG AT BEDTIME 03/28 2200 AC 04/02 PO 2141 Senna/Docusate Sodium 2 TAB AT BEDTIME 03/28 2200 AC 04/02 PO 1330 Sertraline HCl 100 MG DAILY 03/28 1000 AC 04/02 PO 1329 Sevelamer Carbonate 1,600 MG WM 03/30 1700 AC 04/02 PO 1800 Simethicone 80 MG Q8 04/02 1402 AC 04/02 PO 2142 Tamsulosin HCl 0.4 MG DAILY 03/28 1000 AC 04/02 PO 1330 Trazodone HCl 150 MG QPM 03/28 2200 AC 04/02 PO 2142 Trimethobenzamide HCl 200 MG 4 TIMES/DAY PRN 03/31 1730 AC 04/01 IM 2057 Vancomycin HCl 1,000 MG ONCE ONE 04/02 1100 DC 04/02 Sodium Chloride 250 ML IV 04/02 1159 1326 Last 24 Hrs of Lab/Angus Results Last 24 Hrs of Labs/Mics: Laboratory Tests 04/02/17 1355: PT 12.1, INR 1.15 04/02/17 1006: Vancomycin Trough Cancelled 04/02/17 0805: Anion Gap 13, Estimated GFR 14 L, BUN/Creatinine Ratio 9.5, Glucose 157 H, Calcium 6.9 L, Total Bilirubin 1.1, Direct Bilirubin 0.7 H, AST 65 H, ALT 75 H, Alkaline Phosphatase 81, Total Protein 6.0 L, Albumin 3.3 L, CBC w Diff NO MAN DIFF REQ, RBC 2.91 L, MCV 80.9, MCH 26.1 L, RDW 16.8 H, MPV 10.2, Gran % 73.3, Lymphocytes % 13.0 L, Monocytes % 11.6 H, Eosinophils % 1.8, Basophils % 0.3, Absolute Granulocytes 4.1, Absolute Lymphocytes 0.7 L, Absolute Monocytes 0.7 H, Absolute Eosinophils 0.1, Absolute Basophils 0, PUBS MCHC 32.3 L, Random Vancomycin 8.4 04/02/17 0600: Sodium Cancelled, Potassium Cancelled, Chloride Cancelled, Carbon Dioxide Cancelled, Anion Gap Cancelled, BUN Cancelled, Creatinine Cancelled, BUN/ Creatinine Ratio Cancelled, Total Bilirubin Cancelled, Direct Bilirubin Cancelled, AST Cancelled, ALT Cancelled, Alkaline Phosphatase Cancelled, Total Protein Cancelled, Albumin Cancelled, CBC w Diff Cancelled, WBC Cancelled, RBC Cancelled, Hgb Cancelled, Hct Cancelled, MCV Cancelled, MCH Cancelled, RDW Cancelled, Plt Count Cancelled, MPV Cancelled, PUBS MCHC Cancelled Microbiology 04/02 1355 BLOOD: Blood Culture - RECD 04/02 1044 BLOOD: Blood Culture - RECD Assessment/Plan Assessment: 67 year old Man with PMH of CAD s/p stents (Oct 2016), COPD, T2DM, neuropathy, MILES noncompliant with CPAP, HFpEF, CKD stage 5 s/p AV fistula (January 2017), multiple admits for chest pain, dyspnea and elevated troponins, initiated on HD (TTS) via [facility] during recent admission for fluid overload (03/15-03/23). Problem list 1. Naueas/Vomiting/chills and rigors/. etiology unclear. Could be a dialysis catheter vs ? Acute cholecystitis. Blood culture March 29 one set growing staph coagulase negative. Most likely contamination. 2. Elevated troponins. Most likely secondary to chronic kidney disease and poor clearance. Repeat echocardiogram shows worsening of the apical wall motion abnormality. Ejection fraction approximate 45%. 3. History of end-stage renal disease on dialysis, Tuesday and Tuesday 4. Bilateral cortical and exophytic renal cysts. stable 5. Chronic anemia due to iron deficiency and CKD. H&H 8.11/02.3 today PLAN * Monitor vitals closely. * Followup blood cultures and line culture * We dosed vancomycin today- 1gm, advised to follow-up with Hollis Larios MD in regards to vancomycin trough level and further dosing. * High risk for any surgical intervention for cardiac standpoint * Continue home medications * Subcutaneous heparin for DVT prophylaxis * Full code Problem List: 1. ESRD (end stage renal disease) 2. Type 2 diabetes mellitus 3. Septicemia 4. Infection, dialysis vascular access Pain Ratin Pain Location: Abdomen Pain Goal: Remain pain free Pain Plan: Tylenol as needed Tomorrow's Labs & Rationales: We'll decide after asking to the attending DVT/Prophylaxis: mechanical, pharmacological, early ambulation low risk [id number] 04/02/17 1047: Attending MD Review Statement Attending Statement Attending MD Statement: examined this patient, discuss w/resident/PA/BUSINESS TECHNOLOGY ANALYST, agreed w/resident/PA/BUSINESS TECHNOLOGY ANALYST, discussed with family, reviewed EMR data (avail), discussed with nursing, discussed with case mgmt, reviewed images, amended to note Attending Assessment/Plan: "67-year-old male with history of coronary artery disease status post PCI earlier on this year on aspirin/Plavix, end-stage renal disease started on hemodialysis via right IJ catheter earlier this month while awaiting maturity of his left AV fistula. He was managed earlier this month for volume overload which responded to diuresis and he was discharged to [facility]. He returned with complaints of abdominal pain diarrhea and fever. He has been asymptomatic and hemodynamically stable here. Blood cultures were negative and he was afebrile until he started complaining of rigors. He then developed a fever of 100.4. Repeat blood cultures are now growing GPC in 1 out of 2 bottles. Seen by ID and started on IV vancomycin on . Currently afebrile and hemodynamically stable. " Patient is extremely high risk for any kind of surgical procedure as he has significant triple-vessel disease with recent drug-eluting stents and is on dual antiplatelet therapy which per cardiology should not be stopped. USG was equivocal and HIDA was done which was negative. denies any new complaints, vital stable, labs reviewed Patient is in HD, f/u ID, repeat blood culture, vanco dosing.
--- NOTE | 2017-04-02 10:50 | PN- Infect Dx ---
Subjective Subjective: Afebrile. He complains of indigestion, but denies any nausea or vomiting. He has no abdominal pain. He had rigors again yesterday but they were less severe and lasted for a shorter period of time. Objective Last 24 Hrs of Vital Signs/I&O Vital Signs Date Time Temp Pulse Resp B/P B/P Pulse O2 O2 Flow FiO2 Mean Ox Delivery Rate 04/02 0834 97.3 63 18 112/62 98 Room Air 04/02 0000 Nasal 2.0L Cannula 04/01 2328 98.9 61 18 102/58 95 Room Air 04/01 2235 62 112/60 04/01 1740 98.8 63 18 108/58 95 Nasal 2.0L Cannula 04/01 1600 95 Nasal 2.0L Cannula 04/01 1319 97.6 96 Nasal 2.0L Cannula 04/01 1136 91 Room Air Room Air Intake & Output 04/02 1600 04/02 0800 04/02 0000 Intake Total 100 320 Output Total 0 120 Balance 100 200 Intake, Oral 100 320 Output, Urine 0 120 Patient 210 lb Weight Weight Standing Scale Measurement Method Physical Exam Other Physical Findings: He appears comfortable, currently on dialysis, in no acute distress Neck right IJ Bao catheter with no inflammation at the site Lungs are clear Heart regular rhythm with no murmur Abdomen soft, nontender with positive bowel sounds Extremities no cyanosis, clubbing or edema Results Last 24 Hours of Lab Results: Laboratory Tests 04/02 04/02 04/02 1006 0805 0600 Chemistry Sodium (137 - 145 mmol/L) 131 L Cancelled Potassium (3.5 - 5.1 mmol/L) 3.4 L Cancelled Chloride (98 - 107 mmol/L) 93 L Cancelled Carbon Dioxide (22 - 30 mmol/L) 24 Cancelled Anion Gap (5 - 16) 13 Cancelled BUN (9 - 20 mg/dL) 41 H Cancelled Creatinine (0.7 - 1.2 mg/dL) 4.3 H Cancelled Estimated GFR (>60 ml/min) 14 L BUN/Creatinine Ratio (7 - 25 %) 9.5 Cancelled Glucose (65 - 99 mg/dL) 157 H Calcium (8.4 - 10.2 mg/dL) 6.9 L Total Bilirubin (0.2 - 1.3 mg/dL) 1.1 Cancelled Direct Bilirubin (< 0.4 mg/dL) 0.7 H Cancelled AST (17 - 59 U/L) 65 H Cancelled ALT (21 - 72 U/L) 75 H Cancelled Alkaline Phosphatase (< 127 U/L) 81 Cancelled Total Protein (6.3 - 8.2 g/dL) 6.0 L Cancelled Albumin (3.5 - 5.0 g/dL) 3.3 L Cancelled Hematology CBC w Diff NO MAN DIFF REQ WBC (4.8 - 10.8 /CUMM) 5.6 RBC (4.70 - 6.10 /CUMM) 2.91 L Hgb (14.0 - 18.0 G/DL) 7.6 L Hct (42 - 52 %) 23.5 L MCV (80.0 - 94.0 FL) 80.9 MCH (27.0 - 31.0 PG) 26.1 L RDW (11.5 - 14.5 %) 16.8 H Plt Count (130 - 400 /CUMM) 129 L MPV (7.4 - 10.4 FL) 10.2 Gran % (42.2 - 75.2 %) 73.3 Lymphocytes % (20.5 - 51.1 %) 13.0 L Monocytes % (1.7 - 9.3 %) 11.6 H Eosinophils % (0 - 5 %) 1.8 Basophils % (0.0 - 2.0 %) 0.3 Absolute Granulocytes (1.4 - 6.5 /CUMM) 4.1 Absolute Lymphocytes (1.2 - 3.4 /CUMM) 0.7 L Absolute Monocytes (0.10 - 0.60 /CUMM) 0.7 H Absolute Eosinophils (0.0 - 0.7 /CUMM) 0.1 Absolute Basophils (0.0 - 0.2 /CUMM) 0 PUBS MCHC (33.0 - 37.0 G/DL) 32.3 L Toxicology Vancomycin Trough Cancelled Random Vancomycin (ug/ml) Pending Last 24 Hours of Angus Results: Blood cultures March 31 one bottle (drawn peripherally) positive for gram- positive cocci in clusters, with the second set drawn peripherally and a third set drawn via the Bao catheter negative so far Urine culture March 31 negative Recent Imaging Studies: Abdominal ultrasound April 01 reveals gallbladder wall thickening with a small amount of pericholecystic fluid, with no stones or sludge and with a negative Lester sign; mild splenomegaly; right pleural effusion HIDA scan April 01 negative Assessment/Plan Impression: Recurrent rigors, though apparently less severe, with no further fevers and with white blood cell count remaining normal status post 1 dose of Vancomycin, given after dialysis 2 days ago, for one positive blood culture, identified as coag- negative Staph, and now with a second blood culture, sent 2 days ago, positive. Though these may both represent contaminants the possibility of line sepsis secondary to the Bao catheter must be considered and would continue him on Vancomycin pending further evaluation. If this does represent line sepsis the catheter may be able to be kept in if his blood cultures clear. His workup for cholecystitis was negative with a negative HIDA scan. Suggestion: 1. Repeat blood cultures 2 today (1 from the periphery and 1 from the Bao catheter) 2. Add Vancomycin random level to this morning's labs 3. Follow-up recent cultures 4. Re-dose with Vancomycin today based on his random level per dialysis protocol
--- NOTE | 2017-04-02 13:09 | Discharge Summary ---
Visit Information Visit Dates Admission Date: 03/27/17 Hospital Course Course Attending Physician: RICARDO ELDRIDGE,[place] [facility]: 67 yo M with h/o CAD s/p 2 drug eluting stents (Oct 2016) on dual antiplatelet therapy, COPD, T2DM, neuropathy, chronic hypoxic respiratory failure on 2L O2, MILES noncompliant with CPAP, HFpEF, CKD stage 5 s/p AV fistula (January 2017), multiple admits for chest pain, dyspnea and elevated troponins, initiated on HD (TTS) via [facility] during recent admission for fluid voerload (03/15-03/23) [facility] ER for evaluation of shaking chills, fever of 101.7, nausea, vomiting, lower abdominal cramping and dyspnea. Vitals: Tmax 99.1, initially tachycardic to 110's, BP 131/68, sats 100% on 2L. Exam: AAO, MMM, Chest bibasilar crackles+, Right Bao cath site C/D/I, Heart S1S2 regular, Abd soft NT, LE: no edema. Left arm AV-fistula+. Labs: H/H 10/32.1, D-dimer 2992, AG 20, BUN 25, creat 3.6, T. Bili 2.0, normal transaminases, troponin 0.18, CRP 2.6, proBNP 19311. CT abd/pelvis: no acute process, constipation, renal cysts, RLL small nodule, bilateral pleural effusions. CXR: right jugular CVC, no acute process. Echo (February 2017): EF 50-55%. EKG: Sinus tachycardia, LVH, Qtc 508. Rectal exam: guaiac neg stool. He was admitted on telemetry floor. 1. Nausea/vomiting/lower abdominal pain/episodes of chills and rigors: Most likely secondary to acute viral gastroenteritis. He was monitored off antibiotics. Supportive care was provided including antiemetics and increased fluid intake. His symptoms got better initially. Later on he was again nauseaous with poor appetite. Blood culture on March 29 grew staph coagulase negative. He continued having episodes of chills and rigors followed by sweating and lack of energy almost everyday lasting for 45 min to 1 hour. He also developed temperature to 100.41 time. He also became hypotensive. ID was consulted for sepsis. He was seen by Dr. Larios. According to his opinion it could be contaminant as only one bottle is positive but given the low-grade fever and hypotension Line sepsis could be a possibility. Blood cultures were repeated both peripheral and from dialysis catheter. Vancomycin was started per dialysis protocol. One set of blood cultures drawn again grew staph coagulase negative. Line Cultures remained negative. Urine culture was also negative. Vancomycin was continued. Per ID continue Vancomycin per dialysis protocol to plan on a 10-14 day course of treatment. He also had CT chest without IV contrast on March 31. IMPRESSION: 1. There is stable elevated right hemidiaphragm with associated right middle lobe atelectasis and bilateral pleural effusions increasing on the right, stable on the left since the recent abdominal CT. 2. A right-sided dual-lumen hemodialysis catheter is identified with its tip extending deep into the right atrium with the patient in the supine position. Clinical correlation recommended. 3. Stable-appearing under 6 mm pulmonary nodules in the right lower lung field. 4. Stable-appearing nodularity in the left breast. 5. Gallbladder is somewhat contracted limiting evaluation with question of developing acute cholecystitis. For suspicion of cholecystitis he was made nothing by mouth. Also had an abdominal ultrasound. ABD USG: IMPRESSION: 1. Gallbladder wall thickening and a small amount of pericholecystic fluid is present. No stones or sludge identified within the gallbladder and sonographic Lester's sign is reportedly negative. Findings are nonspecific. If there is clinical concern for acute cholecystitis, would recommend further evaluation with a HIDA scan. 2. Bilateral renal cysts. Increased renal parenchymal echogenicity suggests underlying medical renal disease. 3. Mild splenomegaly. 4. Right pleural effusion. Abdominal ultrasound was inconclusive so HIDA scan was ordered to confirm cholecystitis. HIDA SCAN was done on 04/01/17 and it was normal. Patient continued having episodes of chills and rigors but definite etiology was still not clear. Vancomycin was continued per ID recommendations. No more fevers reported. Thyroid function tests were normal. 2. Elevated troponins Patient had chronically elevated troponins on admission. He was seen by risk specialist. As patient was not complaining of any chest pain and there were no acute EKG changes so it was thought that it was most likely related to demand ischemia in the setting of chronic kidney disease. During the course of hospitalization patient's troponins bumped up to 5.12 and then trended down. No EKG changes. Per cardio echocardiogram was repeated. ECHO 03/31/17 CONCLUSIONS 1. MIld to moderate aortic sclerosis is present with no valvular stenosis or insufficiency. 2. Mitral leaflet thickening is present with mild to moderate anular calcification and mild mitral insufficiency with mild to moderate left atrial enlargement. 3. There is no pericardial fluid detected on this study. 4. The left ventricular chamber size is normal with mild LVH and an ejection fraction of approximately 45%. There is hypokines of the septum and essential akinesia with some dyskinesia of the apical segments with no evidence of thrombus. Additional images were obtained after the administration of IV contrast. 5. Mild to moderate tricuspid insufficiency is present with mild pulmonic insufficiency and no significant pulmonary hypertension. 6. Since the prior study, the apical wall motion abnormality appears to be worse and the LV ejection fraction has decreased slightly. 3. ESRD secondary to diabetic nephropathy - on hemodialysis Tuesday, and Tuesday. He was seen by title department manager and hemodialysis was continued as scheduled. As patient had staph coagulase bacteremia and after ruling out all other sources it was presumed that dialysis catheter could be the source. Vascular surgery was called regarding status of his left upper extremity AV fistula. Later on after discussion with Dr. Vigil and Dr. Larios Plan was to removal of Bao cath after Dialysis on tuesday (04/08/2017) and Vancomycin per dialysis protocol. Then replacement of tunneled dialysis catheter by IR on Tuesday (04/11/2017). Patient was updated about the plan. He would be NPO after midnight tuesday night. 4. Acute on chronic Anemia On admission his H&H was 10.6/32.1. He was on dual antiplatelet therapy for recent drug-eluting stents. His H&H dropped down to 6.9/20.9. He was given 2 units of blood transfusion with dialysis on April 05. His hematocrit remained stable after that. Stool guaiac was checked......... 5. Bilateral cortical and exophytic renal cysts on CT scan He was seen by urologist, Dr. Chairez. As symptoms of renal colic were not elicited on history intake. Additionally there was no CVA tenderness bilaterally. CT scan showed no evidence of obstructing stone bilaterally. No evidence of solid tumor bilaterally. Bladder and prostate were unremarkable. He did not give any additional recommendations for that. Complications: Staph coagulase bacteremia Allergies: Coded Allergies: Iodinated Contrast- Oral and IV Dye (PER PT STATES HIS KIDNEYS ARE SHOT HE IS ON DIALYSIS 03/27/17) morphine (Mild, LOOPY 01/18/17) hydromorphone (DEPRESSED RESPIRATIONS 01/18/17) Disposition Summary Disposition Principal Diagnosis: Staph coagulase bacteremia Additional Diagnosis: Acute on chronic anemia Discharge Disposition: home or self care Discharge Instructions General Discharge Information Code Status: Full Code Patient's Diet: Renal dialysis diet Patient's Activity: Independent Follow-Up Instructions/Appts: 1. Please follow-up with her primary care provider after discharge 2. Please follow-up with your risk specialist after discharge 3. Please follow-up with your title department manager after discharge Medications at Discharge Discharge Medications: Continue taking these medications: Liraglutide (Victoza 3-Zeus) 0.6 MG/0.1 ML PEN.INJCTR 1.8 Milligram ORAL TAKE AT BEDTIME Qty = 9 Comments: NOT GIVEN IN HOSPITAL Metoprolol Tartrate (Metoprolol Tartrate) 100 MG TABLET 1 Tablet ORAL DAILY Qty = 14 Comments: Last Taken: 04/15/17 Time:2:00 PM Clonidine HCl (Clonidine HCl) 0.1 MG TABLET 1 Tablet ORAL TWICE DAILY Qty = 60 Comments: Last Taken:04/15/16 Time:2:00 PM Trazodone HCl (Trazodone HCl) 150 MG TABLET 1 Tablet ORAL Every night Qty = 35 Comments: Last Taken: 04/15/17 Time: 10:30 PM Tamsulosin HCl (Tamsulosin HCl) 0.4 MG CAP.ER.24H 1 Capsule ORAL DAILY Qty = 30 Comments: Last Taken:04/15/17 Time:2:00 PM Folic Acid (Folic Acid) 1 MG TABLET 1 Tablet ORAL DAILY Qty = 30 Comments: Last Taken: 04/15/17 Time:2:00 PM Aspirin (Ecotrin*) 81 MG TABLET.DR 1 Tablet ORAL TAKE AT BEDTIME Comments: Last Taken: 04/14/17 Time 10:30 PM Atorvastatin Calcium (Lipitor) 80 MG TABLET 1 Tablet ORAL TAKE AT BEDTIME Comments: Last Taken: 04/14/17 Time: 10:30 PM Sevelamer Carbonate (Renvela) 800 MG TABLET 2 Tablet ORAL THREE TIMES DAILY Comments: Last Taken:04/15/17 Time:1:30 PM Alprazolam (Xanax) 0.5 MG TABLET 1 Tablet ORAL TWICE DAILY as needed for ANXIETY Qty = 15 Comments: Last Taken: 04/15/17 Time: 2:15 PM Budesonide/Formoterol Fumarate (Symbicort 160-4.5 Mcg Inhaler) 160 MCG-4.5 MCG/ ACTUATION HFA.AER.AD 2 Puff Inhale through mouth TWICE DAILY Qty = 1 Instructions: Rinse your mouth after using inhaler. Comments: Last Taken: 04/15/17 Time: 2:00 PM Isosorbide Mononitrate (Isosorbide Mononitrate ER) 60 MG TAB.ER.24H 1 Tablet ORAL DAILY Qty = 30 Comments: Last Taken: 04/15/17 Time: 2:00 PM Levothyroxine Sodium (Synthroid) 200 MCG TABLET 0.2 Milligram ORAL DAILY BEFORE BREAKFAST Days = 28 Comments: Last Taken: 04/14/17 Time: 5:45 AM Ramelteon (Rozerem) 8 MG TABLET 1 Tablet ORAL AT BEDTIME Qty = 30 Comments: NOT GIVEN IN HOSPITAL Furosemide (Lasix) 40 MG TABLET 80 Milligram ORAL DAILY Qty = 30 Comments: Last Taken: 04/15/17 Time: 2:00 PM Insulin Glargine,Hum.rec.anlog (Lantus Solostar) 100 UNIT/ML (3 ML) INSULN.PEN 15 Units SUB-Q TWICE DAILY Qty = 30 Comments: NOT GIVEN IN HOSPITAL Sertraline HCl (Zoloft) 100 MG TABLET 1 Tablet ORAL DAILY Comments: Last Taken:04/15/17 Time:2:00 PM Clopidogrel Bisulfate (Plavix) 75 MG TABLET 75 Milligram ORAL DAILY Qty = 30 Comments: Last Taken:04/15/17 Time:2:00 PM Albuterol Sulfate (Proair Hfa) 90 MCG HFA.AER.AD 2 Puff Inhale through mouth Q4H as needed for SOB Comments: NOT GIVEN IN HOSPITAL Sennosides/Docusate Sodium (Senna S Tablet) 8.6 MG-50 MG TABLET 2 Tablet ORAL TAKE AT BEDTIME Comments: Last Taken:04/14/17 Time:10:30 PM Nut.tx.impaired Renal Fxn,Soy (Nepro Carb Steady) (Unknown Strength) LIQUID 120 Milliliters ORAL TWICE DAILY Comments: NOT GIVEN IN HOSPITAL Copies To: CARLITA PAGE DO
[2017-04-02 15:10] LABS: PT 12.1 SEC (9.4-12.5)
--- NOTE | 2017-04-02 16:47 | PN- Nephrology ---
Assessment/Plan Assessment: ESRD - HD performed earlier today. KAREY AVF looks like it's developing well. Bacteremia - Again was noted to have GPC's. Otherwise afebrile with normal WBC. Is being followed by ID. Currently on treatment with Vanc. Cultures drawn again today. Obvious concern is for infection related to his line which may need to be removed. Suggestion: -Dialysis performed earlier today -f/u blood cultures from today - if positive, may need to remove line. Next dialysis is not until Tuesday -Please call the office at [phone] or my cell [phone] if cultures from today are positive -Appreciate ID recs Please call [phone] with ?'s Subjective Subjective: Dialysis performed earlier today Pt still feeling crappy Objective Vital Signs and I&Os Vital Signs Date Time Temp Pulse Resp B/P B/P Pulse O2 O2 Flow FiO2 Mean Ox Delivery Rate 04/02 1330 74 150/72 04/02 1330 97.3 74 150/72 04/02 1330 97.3 74 150/72 04/02 1330 97.3 74 18 150/72 04/02 0834 97.3 63 18 112/62 98 Room Air 04/02 0000 Nasal 2.0L Cannula 04/01 2328 98.9 61 18 102/58 95 Room Air 04/01 2235 62 112/60 04/01 1740 98.8 63 18 108/58 95 Nasal 2.0L Cannula Intake & Output 04/02 1600 04/02 0400 04/01 1600 04/01 0400 03/31 1600 03/31 0400 Intake Total 340 320 024 44 2667 1120 Output Total 1500 120 200 100 500 Balance -1160 200 160 -40 2170 1120 Intake, 2000 Dialysate Intake, IV 50 1000 Intake, Oral 340 320 360 60 620 120 Number 2 1 Bowel Movements Output, 1500 Dialysate Output, 100 Emesis Output, Urine 0 120 200 500 Patient 208 lb 206 lb 211 lb Weight Weight Chair scale Chair scale Chair scale Measurement Method Physical Exam: Gen - OK appearing HEENT - supple CV - RRR, no m/r/g Chest - clear, no w/r/r Abd - soft, nondistended Ext - no significant edema Neuro - AOX3, grossly nonfocal Access - ROBINA cath, KAREY AVF +thrill/+bruit Current Medications: Current Medications Sig/Julissa Start time Last Medication Dose Route Stop Time Status Admin Acetaminophen 650 MG Q6P PRN 03/27 2200 AC 04/01 PO 1253 Acetaminophen 1,000 MG Q8P PRN 03/27 2200 AC IV Al Hydroxide/Mg 30 ML Q6 04/02 1350 DC Hydroxide PO Al Hydroxide/Mg 30 ML ONCE ONE 04/02 0515 DC 04/02 Hydroxide PO 04/02 0516 0513 Al Hydroxide/Mg 30 ML .STK-MED ONE 04/02 0314 DC Hydroxide PO 04/02 0315 Al Hydroxide/Mg 30 ML ONCE ONE 04/01 2215 DC 04/01 Hydroxide PO 04/01 2216 2220 Al Hydroxide/Mg 30 ML .STK-MED ONE 04/01 2204 DC Hydroxide PO 04/01 2205 Albuterol Sulfate 3 ML Q4H PRN 03/28 0930 AC INH Albuterol Sulfate 2 PUF Q4P PRN 03/27 2215 AC INH Alprazolam 0.5 MG BID PRN 03/27 2215 AC 04/02 PO 04/03 2214 1329 Aspirin Buffered 81 MG AT BEDTIME 03/28 2200 AC 04/01 PO 2235 Atorvastatin Calcium 80 MG AT BEDTIME 03/28 2200 AC 04/01 PO 2235 Budesonide/ 2 PUF BID 03/27 2211 AC 04/02 Formoterol Fumarate INH 1329 Clonidine 0.1 MG BID 03/28 1000 AC 04/02 PO 1330 Clopidogrel Bisulfate 75 MG DAILY 03/28 1000 AC 04/02 PO 1329 Epoetin [place] 8,000 UNIT TuThSa PRN 03/29 1100 AC IV Famotidine 20 MG DAILY 04/03 1000 AC PO Famotidine 20 MG BID 04/02 1400 DC PO Famotidine 20 MG ONCE ONE 04/02 0715 DC 04/02 PO 04/02 0716 0728 Folic Acid 1 MG DAILY 03/28 1000 AC 04/02 PO 1331 Furosemide 80 MG DAILY 03/28 1000 AC 04/02 PO 1330 Heparin Sodium 5,000 UNIT Q8 03/28 0600 AC 04/02 (Porcine) SC 1338 Insulin Aspart 0 TIDAC 03/28 0800 AC 04/02 SC 1336 Isosorbide 60 MG DAILY 03/28 1000 AC 04/02 Mononitrate PO 1330 Levothyroxine Sodium 0.2 MG DAILY AC 03/28 0700 AC 04/02 PO 0630 Metoprolol Tartrate 100 MG DAILY 03/28 1000 AC 04/02 PO 1330 Polyethylene Glycol 17 GM DAILY 03/28 1353 AC 03/30 PO 1139 Prochlorperazine 10 MG Q6-PRN PRN 03/27 2215 AC 04/02 IV 1323 Ramelteon 8 MG AT BEDTIME 03/28 2200 AC 04/01 PO 2235 Senna/Docusate Sodium 2 TAB AT BEDTIME 03/28 2200 AC 04/02 PO 1330 Sertraline HCl 100 MG DAILY 03/28 1000 AC 04/02 PO 1329 Sevelamer Carbonate 1,600 MG WM 03/30 1700 AC 04/02 PO 1331 Simethicone 80 MG Q8 04/02 1402 AC PO Tamsulosin HCl 0.4 MG DAILY 03/28 1000 AC 04/02 PO 1330 Trazodone HCl 150 MG QPM 03/28 2200 AC 04/01 PO 2235 Trimethobenzamide HCl 200 MG 4 TIMES/DAY PRN 03/31 1730 AC 04/01 IM 2057 Vancomycin HCl 1,000 MG ONCE ONE 04/02 1100 DC 04/02 Sodium Chloride 250 ML IV 04/02 1159 1326 Results Pertinent Lab Results: Laboratory Tests 04/02 04/02 04/02 1355 1006 0805 Chemistry Sodium (137 - 145 mmol/L) 131 L Potassium (3.5 - 5.1 mmol/L) 3.4 L Chloride (98 - 107 mmol/L) 93 L Carbon Dioxide (22 - 30 mmol/L) 24 Anion Gap (5 - 16) 13 BUN (9 - 20 mg/dL) 41 H Creatinine (0.7 - 1.2 mg/dL) 4.3 H Estimated GFR (>60 ml/min) 14 L BUN/Creatinine Ratio (7 - 25 %) 9.5 Glucose (65 - 99 mg/dL) 157 H Calcium (8.4 - 10.2 mg/dL) 6.9 L Total Bilirubin (0.2 - 1.3 mg/dL) 1.1 Direct Bilirubin (< 0.4 mg/dL) 0.7 H AST (17 - 59 U/L) 65 H ALT (21 - 72 U/L) 75 H Alkaline Phosphatase (< 127 U/L) 81 Total Protein (6.3 - 8.2 g/dL) 6.0 L Albumin (3.5 - 5.0 g/dL) 3.3 L Coagulation PT (9.4 - 12.5 SEC) 12.1 INR (0.90 - 1.17) 1.15 Hematology CBC w Diff NO MAN DIFF REQ WBC (4.8 - 10.8 /CUMM) 5.6 RBC (4.70 - 6.10 /CUMM) 2.91 L Hgb (14.0 - 18.0 G/DL) 7.6 L Hct (42 - 52 %) 23.5 L MCV (80.0 - 94.0 FL) 80.9 MCH (27.0 - 31.0 PG) 26.1 L RDW (11.5 - 14.5 %) 16.8 H Plt Count (130 - 400 /CUMM) 129 L MPV (7.4 - 10.4 FL) 10.2 Gran % (42.2 - 75.2 %) 73.3 Lymphocytes % (20.5 - 51.1 %) 13.0 L Monocytes % (1.7 - 9.3 %) 11.6 H Eosinophils % (0 - 5 %) 1.8 Basophils % (0.0 - 2.0 %) 0.3 Absolute Granulocytes (1.4 - 6.5 /CUMM) 4.1 Absolute Lymphocytes (1.2 - 3.4 /CUMM) 0.7 L Absolute Monocytes (0.10 - 0.60 /CUMM) 0.7 H Absolute Eosinophils (0.0 - 0.7 /CUMM) 0.1 Absolute Basophils (0.0 - 0.2 /CUMM) 0 PUBS MCHC (33.0 - 37.0 G/DL) 32.3 L Toxicology Vancomycin Trough Cancelled Random Vancomycin (ug/ml) 8.4 04/02 04/01 0600 0605 Chemistry Sodium Cancelled Potassium Cancelled Chloride Cancelled Carbon Dioxide Cancelled Anion Gap Cancelled BUN Cancelled Creatinine Cancelled BUN/Creatinine Ratio Cancelled Total Bilirubin Cancelled Direct Bilirubin Cancelled AST Cancelled ALT Cancelled Alkaline Phosphatase Cancelled Total Protein Cancelled Albumin Cancelled Hematology CBC w Diff Cancelled NO MAN DIFF REQ WBC (4.8 - 10.8 /CUMM) Cancelled 6.5 RBC (4.70 - 6.10 /CUMM) Cancelled 3.05 L Hgb (14.0 - 18.0 G/DL) Cancelled 8.1 L Hct (42 - 52 %) Cancelled 24.3 L MCV (80.0 - 94.0 FL) Cancelled 79.7 L MCH (27.0 - 31.0 PG) Cancelled 26.7 L RDW (11.5 - 14.5 %) Cancelled 17.2 H Plt Count (130 - 400 /CUMM) Cancelled 138 MPV (7.4 - 10.4 FL) Cancelled 9.7 Gran % (42.2 - 75.2 %) 84.9 H Lymphocytes % (20.5 - 51.1 %) 8.0 L Monocytes % (1.7 - 9.3 %) 6.7 Eosinophils % (0 - 5 %) 0.1 Basophils % (0.0 - 2.0 %) 0.3 Absolute Granulocytes (1.4 - 6.5 /CUMM) 5.5 Absolute Lymphocytes (1.2 - 3.4 /CUMM) 0.5 L Absolute Monocytes (0.10 - 0.60 /CUMM) 0.4 Absolute Eosinophils (0.0 - 0.7 /CUMM) 0 Absolute Basophils (0.0 - 0.2 /CUMM) 0 PUBS MCHC (33.0 - 37.0 G/DL) Cancelled 33.5 03/31 03/31 3619 3261 Hematology CBC w Diff NO MAN DIFF REQ WBC (4.8 - 10.8 /CUMM) 3.5 L RBC (4.70 - 6.10 /CUMM) 3.46 L Hgb (14.0 - 18.0 G/DL) 9.2 L Hct (42 - 52 %) 27.9 L MCV (80.0 - 94.0 FL) 80.6 MCH (27.0 - 31.0 PG) 26.5 L RDW (11.5 - 14.5 %) 16.9 H Plt Count (130 - 400 /CUMM) 175 MPV (7.4 - 10.4 FL) 8.9 Gran % (42.2 - 75.2 %) 92.0 H Lymphocytes % (20.5 - 51.1 %) 5.4 L Monocytes % (1.7 - 9.3 %) 1.2 L Eosinophils % (0 - 5 %) 1.2 Basophils % (0.0 - 2.0 %) 0.2 Absolute Granulocytes (1.4 - 6.5 /CUMM) 3.2 Absolute Lymphocytes (1.2 - 3.4 /CUMM) 0.2 L Absolute Monocytes (0.10 - 0.60 /CUMM) 0 L Absolute Eosinophils (0.0 - 0.7 /CUMM) 0 Absolute Basophils (0.0 - 0.2 /CUMM) 0 PUBS MCHC (33.0 - 37.0 G/DL) 32.9 L Urines Urinalysis HEAVY H Urine Color (YEL,AMB,STR) YEL Urine Clarity (CLEAR) CLDY H Urine pH (5.0 - 8.0) 5.5 Ur Specific [place] (1.001 - 1.035) >= 1.030 Urine Protein (NEG,<30 MG/DL) >=300 H Urine Ketones (NEG) TRACE H Urine Nitrite (NEG) NEG Urine Bilirubin (NEG) POS@ICTO H Urine Urobilinogen (0.1 - 1.0 EU/dl) 0.2 Ur Leukocyte Esterase (NEG) NEG Ur Microscopic SEDIMENT EXAMINED Urine WBC (0 - 2 /HPF) 10-15 H Granular Casts (NONE /LPF) 5-10 H Micro UA Comment Urine Hemoglobin (NEG) SMALL H Urine Glucose (N MG/DL) NEG 03/31 03/31 03/31 1256 0921 0830 Chemistry Sodium (137 - 145 mmol/L) 130 L Potassium (3.5 - 5.1 mmol/L) 3.8 Chloride (98 - 107 mmol/L) 97 L Carbon Dioxide (22 - 30 mmol/L) 24 Anion Gap (5 - 16) 10 BUN (9 - 20 mg/dL) 12 42 H Creatinine (0.7 - 1.2 mg/dL) 4.9 H Estimated GFR (>60 ml/min) 12 L BUN/Creatinine Ratio (7 - 25 %) 8.6 Calcium (8.4 - 10.2 mg/dL) 6.7 L Phosphorus (2.5 - 4.5 mg/dL) 4.5 Magnesium (1.6 - 2.3 mg/dL) 2.4 H Troponin I Cancelled Albumin (3.5 - 5.0 g/dL) 3.3 L Hematology CBC w Diff NO MAN DIFF REQ WBC (4.8 - 10.8 /CUMM) 4.8 RBC (4.70 - 6.10 /CUMM) 2.91 L Hgb (14.0 - 18.0 G/DL) 7.6 L Hct (42 - 52 %) 23.7 L MCV (80.0 - 94.0 FL) 81.3 MCH (27.0 - 31.0 PG) 25.9 L RDW (11.5 - 14.5 %) 16.8 H Plt Count (130 - 400 /CUMM) 127 L MPV (7.4 - 10.4 FL) 9.2 Gran % (42.2 - 75.2 %) 77.2 H Lymphocytes % (20.5 - 51.1 %) 11.9 L Monocytes % (1.7 - 9.3 %) 8.6 Eosinophils % (0 - 5 %) 1.9 Basophils % (0.0 - 2.0 %) 0.4 Absolute Granulocytes (1.4 - 6.5 /CUMM) 3.7 Absolute Lymphocytes (1.2 - 3.4 /CUMM) 0.6 L Absolute Monocytes (0.10 - 0.60 /CUMM) 0.4 Absolute Eosinophils (0.0 - 0.7 /CUMM) 0.1 Absolute Basophils (0.0 - 0.2 /CUMM) 0 PUBS MCHC (33.0 - 37.0 G/DL) 31.9 L 03/31 03/31 03/31 03/31 03/30 0739 0700 0640 0115 1915 Chemistry Troponin I (<0.11 ng/ml) 4.64 *H 5.12 *H 2.76 *H Hematology CBC w Diff Cancelled WBC Cancelled RBC Cancelled Hgb Cancelled Hct Cancelled MCV Cancelled MCH Cancelled RDW Cancelled Plt Count Cancelled MPV Cancelled PUBS MCHC Cancelled Urines Urine Color Cancelled Urine Clarity Cancelled Urine pH Cancelled Ur Specific [place] Cancelled Urine Protein Cancelled Urine Ketones Cancelled Urine Nitrite Cancelled Urine Bilirubin Cancelled Urine Urobilinogen Cancelled Ur Leukocyte Esterase Cancelled Ur Microscopic Cancelled Urine Hemoglobin Cancelled Urine Glucose Cancelled Imaging/Other Studies: EXAM TYPE: NUC - HIDA SCAN EXAMINATION: NM HIDA SCAN CLINICAL INFORMATION: Acute cholecystitis. COMPARISON: Ultrasound performed earlier the same day. TECHNIQUE: Exam was performed after injection of 5.7 mCi of technetium 99m Choletec. Images were acquired over a 45 minute time period. FINDINGS: There is normal uptake of radiopharmaceutical in the gallbladder with excretion into the duodenum. No ejection fraction was calculated. IMPRESSION: Normal hepatobiliary scan.
[2017-04-02 17:06] VITALS: BP 110/60
--- NOTE | 2017-04-02 18:00 | NUR ---
PATIENT BACK FROM HEMODIALYSIS C/O NAUSEA COMPAZINE IV GIVEN. PATIENT STARTED COMPLAINING OF CHILLS AND SHIVERING. VITAL SIGN ASSESS. BP 142/68, HR 68, TEMP 97.9. RR 20. PATIENT O2 SAT 84. PATIENT ALSO COMPLAINED OF SLIGHT HEADACHE AND WAS GIVEN TYLENOL. HYDRAULIC PLUMBER HELPER SLIM AWARE. BLOOD CULTURES DRAWN AND SENT. IV VANCO GIVEN. WILL FOLLOW PLAN OF CARE.
--- NOTE | 2017-04-02 19:52 | PN- Cardiology ---
Subjective Subjective: Overall feels improved, but did have a 45 minute episode of shaking chills earlier. Objective Vital Signs and I&Os Vital Signs Date Time Temp Pulse Resp B/P B/P Pulse O2 O2 Flow FiO2 Mean Ox Delivery Rate 04/02 1706 98.8 69 20 110/60 94 Nasal 2.0L Cannula 04/02 1330 74 150/72 04/02 1330 97.3 74 150/72 04/02 1330 97.3 74 150/72 04/02 1330 97.3 74 18 150/72 04/02 0834 97.3 63 18 112/62 98 Room Air 04/02 0000 Nasal 2.0L Cannula 04/01 2328 98.9 61 18 102/58 95 Room Air 04/01 2235 62 112/60 Intake & Output 04/02 1600 04/02 0800 04/02 0000 04/01 1600 04/01 0800 04/01 0000 Intake Total 240 100 320 240 120 60 Output Total 1500 0 120 200 100 Balance -1260 100 200 240 -80 -40 Intake, Oral 240 100 320 240 120 60 Number 2 Bowel Movements Output, 1500 Dialysate Output, 100 Emesis Output, Urine 0 120 200 Patient 208 lb 210 lb 206 lb Weight Weight Chair scale Standing Scale Chair scale Measurement Method Physical Exam: Well-developed, overweight male in no acute distress with nasal option and place. Vital signs: See above. Neck: No JVD, no bruits. Lungs: Clear to auscultation. Heart: S1, S2 with no murmur, gallop, or rub appreciated. Abdomen: Soft, nontender, positive bowel sounds. Extremities: No edema. Current Medications: Current Medications Sig/Julissa Start time Last Medication Dose Route Stop Time Status Admin Acetaminophen 650 MG Q6P PRN 03/270 AC 04/02 PO 1657 Acetaminophen 1,000 MG Q8P PRN 03/27 220 AC IV Al Hydroxide/Mg 30 ML Q6 04/02 1350 DC Hydroxide PO Al Hydroxide/Mg 30 ML ONCE ONE 04/02 0515 DC 04/02 Hydroxide PO 04/02 0516 0513 Al Hydroxide/Mg 30 ML .STK-MED ONE 04/02 0314 DC Hydroxide PO 04/02 0315 Al Hydroxide/Mg 30 ML ONCE ONE 04/015 DC 04/01 Hydroxide PO 04/01 2216 2220 Al Hydroxide/Mg 30 ML .STK-MED ONE 04/01 2204 DC Hydroxide PO 04/01 2205 Albuterol Sulfate 3 ML Q4H PRN 03/28 930 AC INH Albuterol Sulfate 2 PUF Q4P PRN 03/27 221 AC INH Alprazolam 0.5 MG BID PRN 03/27 2215 AC 04/02 PO 04/03 2214 1329 Aspirin Buffered 81 MG AT BEDTIME 03/28 2200 AC 04/01 PO 2235 Atorvastatin Calcium 80 MG AT BEDTIME 03/28 2200 AC 04/01 PO 2235 Budesonide/ 2 PUF BID 03/27 221 AC 04/02 Formoterol Fumarate INH 1329 Clonidine 0.1 MG BID 03/28 1000 AC 04/02 PO 1330 Clopidogrel Bisulfate 75 MG DAILY 03/28 1000 AC 04/02 PO 1329 Epoetin [place] 8,000 UNIT TuThSa PRN 03/29 1100 AC IV Famotidine 20 MG DAILY 04/03 1000 AC PO Famotidine 20 MG BID 04/02 1400 DC PO Famotidine 20 MG ONCE ONE 04/02 0715 DC 04/02 PO 04/02 0716 0728 Folic Acid 1 MG DAILY 03/28 1000 AC 04/02 PO 1331 Furosemide 80 MG DAILY 03/28 1000 AC 04/02 PO 1330 Heparin Sodium 5,000 UNIT Q8 03/28 0600 AC 04/02 (Porcine) SC 1338 Insulin Aspart 0 TIDAC 03/28 0800 AC 04/02 SC 1804 Isosorbide 60 MG DAILY 03/28 1000 AC 04/02 Mononitrate PO 1330 Levothyroxine Sodium 0.2 MG DAILY AC 03/28 0700 AC 04/02 PO 0630 Metoprolol Tartrate 100 MG DAILY 03/28 1000 AC 04/02 PO 1330 Polyethylene Glycol 17 GM DAILY 03/28 1353 AC 03/30 PO 1139 Prochlorperazine 10 MG Q6-PRN PRN 03/27 2215 AC 04/02 IV 1323 Ramelteon 8 MG AT BEDTIME 03/28 2200 AC 04/01 PO 2235 Senna/Docusate Sodium 2 TAB AT BEDTIME 03/28 2200 AC 04/02 PO 1330 Sertraline HCl 100 MG DAILY 03/28 1000 AC 04/02 PO 1329 Sevelamer Carbonate 1,600 MG WM 03/30 1700 AC 04/02 PO 1800 Simethicone 80 MG Q8 04/02 1402 AC 04/02 PO 1800 Tamsulosin HCl 0.4 MG DAILY 03/28 1000 AC 04/02 PO 1330 Trazodone HCl 150 MG QPM 03/28 2200 AC 04/01 PO 2235 Trimethobenzamide HCl 200 MG 4 TIMES/DAY PRN 03/31 1730 AC 04/01 IM 2057 Vancomycin HCl 1,000 MG ONCE ONE 04/02 1100 DC 04/02 Sodium Chloride 250 ML IV 04/02 1159 1326 Results Last 48 Hrs of Labs/Mics: Laboratory Tests 04/02/17 1355: PT 12.1, INR 1.15 04/02/17 1006: Vancomycin Trough Cancelled 04/02/17 0805: Anion Gap 13, Estimated GFR 14 L, BUN/Creatinine Ratio 9.5, Glucose 157 H, Calcium 6.9 L, Total Bilirubin 1.1, Direct Bilirubin 0.7 H, AST 65 H, ALT 75 H, Alkaline Phosphatase 81, Total Protein 6.0 L, Albumin 3.3 L, CBC w Diff NO MAN DIFF REQ, RBC 2.91 L, MCV 80.9, MCH 26.1 L, RDW 16.8 H, MPV 10.2, Gran % 73.3, Lymphocytes % 13.0 L, Monocytes % 11.6 H, Eosinophils % 1.8, Basophils % 0.3, Absolute Granulocytes 4.1, Absolute Lymphocytes 0.7 L, Absolute Monocytes 0.7 H, Absolute Eosinophils 0.1, Absolute Basophils 0, PUBS MCHC 32.3 L, Random Vancomycin 8.4 04/02/17 0600: Sodium Cancelled, Potassium Cancelled, Chloride Cancelled, Carbon Dioxide Cancelled, Anion Gap Cancelled, BUN Cancelled, Creatinine Cancelled, BUN/ Creatinine Ratio Cancelled, Total Bilirubin Cancelled, Direct Bilirubin Cancelled, AST Cancelled, ALT Cancelled, Alkaline Phosphatase Cancelled, Total Protein Cancelled, Albumin Cancelled, CBC w Diff Cancelled, WBC Cancelled, RBC Cancelled, Hgb Cancelled, Hct Cancelled, MCV Cancelled, MCH Cancelled, RDW Cancelled, Plt Count Cancelled, MPV Cancelled, PUBS MCHC Cancelled 04/01/17 0605: CBC w Diff NO MAN DIFF REQ, RBC 3.05 L, MCV 79.7 L, MCH 26.7 L, RDW 17.2 H, MPV 9.7, Gran % 84.9 H, Lymphocytes % 8.0 L, Monocytes % 6.7, Eosinophils % 0.1, Basophils % 0.3, Absolute Granulocytes 5.5, Absolute Lymphocytes 0.5 L, Absolute Monocytes 0.4, Absolute Eosinophils 0, Absolute Basophils 0, PUBS MCHC 33.5 Recent Imaging Studies: HIDA scan (04/01/2017): There is normal uptake of radiopharmaceutical in the gallbladder with excretion into the duodenum. No ejection fraction was calculated. IMPRESSION: Normal hepatobiliary scan. Assessment/Plan Assessment/Plan 67-y-o-w-m w/ hx HTN, DM, ESRD w/ recent HD, chronic hypoxemic respiratory failure secondary to COPD/MILES, CAD s/p multiple PCIs, & HFpEF who presented on 03/27/2017 with shaking chills, ultimately felt to be secondary to viral gastroenteritis w/ troponin elevation secondary to demand ischemia/CKD vs NSTEMI. Recommendations: * Continue on telemetry. * Continue present cardiac regimen and note current EF approximately 45%. * Continue to follow-up on ID recommendations. * Continue DVT prophylaxis. Continue telemetry? Yes
[2017-04-02 22:00] VITALS: BP 124/60
[2017-04-03 08:15] VITALS: BP 132/80
--- NOTE | 2017-04-03 09:12 | PN- Housestaff ---
GARCÍA ELDRIDGE,SUSAN 04/03/1712: Subjective Follow-up For: Gram-positive septicemia, unknown source, possible dialysis catheter site infection. Complaints: chills Tele-Events Since Last Visit: Sinus bradycardia, sinus rhythm, heart rate ranging from 57-68, with PVCs. Subjective: Patient followed up by me today. He complained of chills yesterday, otherwise no other complaints. Vitals have been stable, no spike in temperature noted. Review of Systems Constitutional: Reports: chills. Objective Last 24 Hrs of Vital Signs/I&O Vital Signs Date Time Temp Pulse Resp B/P B/P Pulse O2 O2 Flow FiO2 Mean Ox Delivery Rate 04/03 1940 98 Room Air Room Air 04/03 1628 99.7 74 20 122/80 92 Room Air 04/03 0958 97.9 62 132/80 04/03 0958 132/80 04/03 0958 97.9 62 20 132/80 04/03 0957 62 132/80 04/03 0815 97.9 62 20 132/80 96 Room Air 04/02 2200 98.2 68 20 124/60 95 Room Air 04/02 2150 96 Nasal 2.0L Cannula Intake & Output 04/03 1600 04/03 0800 04/03 0000 Intake Total 480 480 400 Output Total 125 125 Balance 480 355 275 Intake, IV Intake, Oral 480 480 400 Output, Urine 125 125 Patient 95.708 kg Weight Weight Standing Scale Measurement Method Physical Exam General Appearance: Alert, Oriented X3, Cooperative, No Acute Distress Other Physical Findings: Skin: pale Cardiovascular: Normal S1, Normal S2 Lungs: Clear to Auscultation, Normal Air Movement Abdomen: Soft, tender,distended, bowel sounds is positive Extremities: No Clubbing, No Cyanosis, Edema Current Medications: Current Medications Sig/Julissa Start time Last Medication Dose Route Stop Time Status Admin Acetaminophen 650 MG Q6P PRN 03/27 2200 AC 04/02 PO 165 Acetaminophen 1,000 MG Q8P PRN 03/27 2200 AC IV Albuterol Sulfate 3 ML Q4H PRN 03/28 930 AC INH Albuterol Sulfate 2 PUF Q4P PRN 03/27 2215 AC INH Alprazolam 0.5 MG BID PRN 03/27 2215 AC 04/03 PO 04/03 2214 1005 Aspirin Buffered 81 MG AT BEDTIME 03/28 2200 AC 04/02 PO 2141 Atorvastatin Calcium 80 MG AT BEDTIME 03/28 2200 AC 04/02 PO 2142 Budesonide/ 2 PUF BID 03/27 2211 AC 04/03 Formoterol Fumarate INH 0957 Clonidine 0.1 MG BID 03/28 1000 AC 04/03 PO 0957 Clopidogrel Bisulfate 75 MG DAILY 03/28 1000 AC 04/03 PO 0958 Epoetin [place] 8,000 UNIT TuThSa PRN 03/29 1100 AC IV Famotidine 20 MG DAILY 04/03 1000 AC 04/03 PO 0958 Folic Acid 1 MG DAILY 03/28 1000 AC 04/03 PO 0958 Furosemide 80 MG DAILY 03/28 1000 AC 04/03 PO 0958 Heparin Sodium 5,000 UNIT Q8 03/28 0600 AC 04/03 (Porcine) SC 1326 Hydromorphone HCl 2 MG .STK-MED ONE 04/03 0915 DC IM 04/03 0916 Insulin Aspart 0 TIDAC 03/28 0800 AC 04/03 SC 1734 Isosorbide 60 MG DAILY 03/28 1000 AC 04/03 Mononitrate PO 0958 Levothyroxine Sodium 0.2 MG DAILY AC 03/28 0700 AC 04/03 PO 0654 Metoprolol Tartrate 100 MG DAILY 03/28 1000 AC 04/03 PO 0958 Polyethylene Glycol 17 GM DAILY 03/28 1353 AC 03/30 PO 1139 Prochlorperazine 10 MG Q6-PRN PRN 03/27 2215 AC 04/02 IV 1323 Ramelteon 8 MG AT BEDTIME 03/28 2200 AC 04/02 PO 2141 Senna/Docusate Sodium 2 TAB AT BEDTIME 03/28 2200 AC 04/02 PO 1330 Sertraline HCl 100 MG DAILY 03/28 1000 AC 04/03 PO 0958 Sevelamer Carbonate 1,600 MG WM 03/30 1700 AC 04/03 PO 1734 Simethicone 80 MG Q8 04/02 1402 AC 04/03 PO 1325 Tamsulosin HCl 0.4 MG DAILY 03/28 1000 AC 04/03 PO 0958 Trazodone HCl 150 MG QPM 03/28 2200 AC 04/02 PO 2142 Trimethobenzamide HCl 200 MG 4 TIMES/DAY PRN 03/31 1730 AC 04/01 IM 2056 Last 24 Hrs of Lab/Angus Results Last 24 Hrs of Labs/Mics: Laboratory Tests 04/03/17 1150: Anion Gap 11, Estimated GFR 19 L, BUN/Creatinine Ratio 7.3, Random Vancomycin 13.8 Assessment/Plan Assessment: 67 year old Man with PMH of CAD s/p stents (Oct 2016), COPD, T2DM, neuropathy, MILES noncompliant with CPAP, HFpEF, CKD stage 5 s/p AV fistula (January 2017), multiple admits for chest pain, dyspnea and elevated troponins, initiated on HD (TTS) via [facility] during recent admission for fluid overload (03/15-03/23). A/P: 1. Nausea/Vomiting/chills and rigors/. etiology unclear. Could be a dialysis catheter vs ? Acute cholecystitis (HIDA scan negative). Blood culture March 29 one set growing staph coagulase negative. Most likely contamination. Will follow ID input. 2. Elevated troponins. Most likely secondary to chronic kidney disease and poor clearance. Repeat echocardiogram shows worsening of the apical wall motion abnormality. Ejection fraction approximate 45%. 3. History of end-stage renal disease on dialysis, Tuesday and Tuesday. Vanc level to be drawn and dosed on dialysis days per Vanco dislysis protocol. 4. Bilateral cortical and exophytic renal cysts. stable 5. Chronic anemia due to iron deficiency and CKD. H&H 8.1/24.3 today Potassium better today. Continue home meds Diet: Renal dislysis diet DVT ppx: SQ Heparin Code status: Full code Problem List: 1. Septicemia 2. Infection, dialysis vascular access Pain Ratin Pain Location: - Pain Goal: Pain 4 or less Pain Plan: prn Tomorrow's Labs & Rationales: CBC, Vanc level if he goes to dialysis tomorrow, ANMOL FRANCISCO 04/03/17 1127: Attending MD Review Statement Attending Statement Attending MD Statement: examined this patient, discuss w/resident/PA/SENIOR NET DEVELOPER ARCHITECT, agreed w/resident/PA/SENIOR NET DEVELOPER ARCHITECT, discussed with family, reviewed EMR data (avail), discussed with nursing, discussed with case mgmt, reviewed images, amended to note Attending Assessment/Plan: "67-year-old male with history of coronary artery disease status post PCI earlier on this year on aspirin/Plavix, end-stage renal disease started on hemodialysis via right IJ catheter earlier this month while awaiting maturity of his left AV fistula. He was managed earlier this month for volume overload which responded to diuresis and [facility] He returned with complaints of abdominal pain diarrhea and fever. He has been asymptomatic and hemodynamically stable here. Blood cultures were negative and he was afebrile until he started complaining of rigors. He then developed a fever of 100.4. Repeat blood cultures are now growing GPC in 1 out of 2 bottles. Seen by ID and started on IV vancomycin on . Currently afebrile and hemodynamically stable. " Patient is extremely high risk for any kind of surgical procedure as he has significant triple-vessel disease with recent drug-eluting stents and is on dual antiplatelet therapy which per cardiology should not be stopped. USG was equivocal and HIDA was done which was negative. denies any new complaints, vital stable, labs reviewed, f/u bep today Patient HD tomorrow, f/u ID, f/u repeat blood culture, vanco dosing.
[2017-04-03 16:28] VITALS: BP 122/80
[2017-04-03 23:42] VITALS: BP 122/66
[2017-04-04 08:21] VITALS: BP 128/64
[2017-04-04 08:38] LABS: ABSOLUTE BASOPHIL COUNT 0 /CUMM (0.0-0.2); ABSOLUTE EOSINOPHIL COUNT 0.1 /CUMM (0.0-0.7); ABSOLUTE GRANULOCYTE CT 2.9 /CUMM (1.4-6.5); ABSOLUTE LYMPH COUNT 0.9 /CUMM (1.2-3.4); ABSOLUTE MONOCYTE COUNT 0.4 /CUMM (0.10-0.60); BASOPHIL % 0.5 % (0.0-2.0); GRANULOCYTE % 67.7 % (42.2-75.2); MEAN CORPUSCULAR HGB 26.3 PG (27.0-31.0); MEAN CORPUSCULAR HGB CONC 32.6 G/DL (33.0-37.0); MEAN CORPUSCULAR VOLUME 80.6 FL (80.0-94.0); MEAN PLATELET VOLUME 10.3 FL (7.4-10.4); PLATELET COUNT 115 /CUMM (130-400); RBC DISTRIBUTION WIDTH 16.4 % (11.5-14.5); RED BLOOD CELL CT 2.82 /CUMM (4.70-6.10); WHITE BLOOD CELL COUNT 4.3 /CUMM (4.8-10.8)
[2017-04-04 08:44] LABS: HEMATOCRIT 22.7 % (42-52)
--- NOTE | 2017-04-04 09:05 | PN- Housestaff ---
VICTORIA RUSSELL 04/04/17 0900: Subjective Follow-up For: Staph coagulase bacteremia Elevated troponins Chronic kidney disease Tele-Events Since Last Visit: 8 beat run of VItzel tach Subjective: This morning patient is complaining of some discomfort at the site of his dialysis catheter. He denies any nausea, vomiting, abdominal pain, urinary symptoms, diarrhea or constipation. He is complaining of poor sleep last night. Had 20 minute episode of rigors and chills yesterday. Review of Systems Constitutional: Reports: see HPI. Objective Last 24 Hrs of Vital Signs/I&O Vital Signs Date Time Temp Pulse Resp B/P B/P Pulse O2 O2 Flow FiO2 Mean Ox Delivery Rate 04/04 0854 126/64 04/04 0852 126/64 04/04 0851 126/64 04/04 0851 126/64 04/04 0821 98.0 64 20 128/64 97 Room Air 04/04 0000 Room Air 04/03 2342 98.7 70 20 122/66 95 Room Air 04/03 1940 98 Room Air Room Air 04/03 1628 99.7 74 20 122/80 92 Room Air Intake & Output 04/04 1600 04/04 0800 04/04 0000 Intake Total 250 480 Output Total Balance 250 480 Intake, IV 0 Intake, Oral 250 480 Number 0 Bowel Movements Patient 213 lb Weight Weight Chair scale Measurement Method Physical Exam General Appearance: Alert, Oriented X3, Cooperative, No Acute Distress Skin: clotted blood at dialysis catheter site. no tenderness Cardiovascular: Regular Rate, No Murmurs Lungs: Clear to Auscultation Abdomen: Normal Bowel Sounds, Soft, No Tenderness Neurological: Normal Speech, Strength at 5/5 X4 Ext, Sensation Intact, Cranial Nerves 3-12 NL Extremities: No Edema Current Medications: Current Medications Sig/Julissa Start time Last Medication Dose Route Stop Time Status Admin Acetaminophen 650 MG Q6P PRN 03/270 AC 04/02 PO 1657 Acetaminophen 1,000 MG Q8P PRN 03/27 220 AC IV Albuterol Sulfate 3 ML Q4H PRN 03/28 0930 AC INH Albuterol Sulfate 2 PUF Q4P PRN 03/27 2215 AC INH Alprazolam 0.5 MG BID PRN 04/04 1030 AC PO 04/11 1029 Alprazolam 0.5 MG BID PRN 04/04 1030 CAN PO 04/11 1029 Alprazolam 0.5 MG ONCE ONE 04/03 2330 DC 04/03 PO 04/03 2331 2353 Alprazolam 0.5 MG BID PRN 03/27 2215 DC 04/03 PO 04/03 2214 1005 Aspirin Buffered 81 MG AT BEDTIME 03/28 2200 AC 04/03 PO 2209 Atorvastatin Calcium 80 MG AT BEDTIME 03/28 2200 AC 04/03 PO 2210 Budesonide/ 2 PUF BID 03/27 2211 AC 04/04 Formoterol Fumarate INH 0852 Clonidine 0.1 MG BID 03/28 1000 AC 04/04 PO 0851 Clopidogrel Bisulfate 75 MG DAILY 03/28 1000 AC 04/04 PO 0852 Epoetin [place] 8,000 UNIT TuThSa PRN 03/29 1100 AC IV Famotidine 20 MG ONCE ONE 04/03 2330 DC 04/03 PO 04/03 2331 2353 Famotidine 20 MG DAILY 04/03 1000 AC 04/04 PO 0852 Folic Acid 1 MG DAILY 03/28 1000 AC 04/04 PO 0851 Furosemide 80 MG DAILY 03/28 1000 AC 04/04 PO 0852 Heparin Sodium 5,000 UNIT Q8 03/28 0600 AC 04/04 (Porcine) SC 0521 Insulin Aspart 0 TIDAC 03/28 0800 AC 04/04 SC 0851 Isosorbide 60 MG DAILY 03/28 1000 AC 04/04 Mononitrate PO 0851 Levothyroxine Sodium 0.2 MG DAILY AC 03/28 0700 AC 04/04 PO 0521 Melatonin 5 MG ONCE ONE 04/04 0330 DC 04/04 PO 04/04 0331 0330 Metoprolol Tartrate 100 MG DAILY 03/28 1000 AC 04/04 PO 0854 Polyethylene Glycol 17 GM DAILY 03/28 1353 AC 03/30 PO 1139 Prochlorperazine 10 MG Q6-PRN PRN 03/27 2215 AC 04/02 IV 1323 Ramelteon 8 MG AT BEDTIME 03/28 2200 AC 04/03 PO 2210 Senna/Docusate Sodium 2 TAB AT BEDTIME 03/28 2200 AC 04/02 PO 1330 Sertraline HCl 100 MG DAILY 03/28 1000 AC 04/04 PO 0852 Sevelamer Carbonate 1,600 MG WM 06/21 1700 AC 04/04 PO 0740 Simethicone 80 MG Q8 04/02 1402 AC 04/04 PO 0521 Tamsulosin HCl 0.4 MG DAILY 03/28 1000 AC 04/04 PO 0852 Trazodone HCl 150 MG QPM 03/28 2200 AC 04/03 PO 2210 Trimethobenzamide HCl 200 MG 4 TIMES/DAY PRN 03/31 1730 AC 04/01 IM 2057 Vancomycin HCl 1,000 MG ONCE ONE 04/05 1700 AC Sodium Chloride 250 ML IV 04/05 1759 Vancomycin HCl 1,000 MG ONE 04/05 0915 CAN IV 04/05 0916 Vancomycin HCl See Dose TuThSa PRN 04/04 0930 AC Insts (1) IV Dose Instructions: (1)Vancomycin HCl: DOSE BASED ON RANDOM VANCO LEVELS Last 24 Hrs of Lab/Angus Results Last 24 Hrs of Labs/Mics: Laboratory Tests 04/04/17 0658: Anion Gap 11, Estimated GFR 15 L, BUN/Creatinine Ratio 8.0, CBC w Diff NO MAN DIFF REQ, RBC 2.82 L, MCV 80.6, MCH 26.3 L, RDW 16.4 H, MPV 10.3, Gran % 67.7 , Lymphocytes % 20.5, Monocytes % 9.3, Eosinophils % 2.0, Basophils % 0.5, Absolute Granulocytes 2.9, Absolute Lymphocytes 0.9 L, Absolute Monocytes 0.4, Absolute Eosinophils 0.1, Absolute Basophils 0, PUBS MCHC 32.6 L, Random Vancomycin 11.9 04/03/17 1150: Anion Gap 11, Estimated GFR 19 L, BUN/Creatinine Ratio 7.3, Random Vancomycin 13.8 Assessment/Plan Assessment: 67 year old Man with PMH of CAD s/p stents (Oct 2016), COPD, T2DM, neuropathy, MLIES noncompliant with CPAP, HFpEF, CKD stage 5 s/p AV fistula (January 2017), multiple admits for chest pain, dyspnea and elevated troponins, initiated on HD (TTS) via [facility] during recent admission for fluid overload (03/15-03/23). 1. Chills and rigors. etiology unclear. Could be a dialysis catheter. Acute cholecystitis ruled out (HIDA scan negative). Blood culture March 29 and one set growing staph coagulase negative. 2. Elevated troponins. Most likely secondary to chronic kidney disease and poor clearance vs demand ischemia vs NSTEMI. Echocardiogram shows worsening of the apical wall motion abnormality. Ejection fraction approximate 45%. 3. History of end-stage renal disease on dialysis, Tuesday and Tuesday. 4. Bilateral cortical and exophytic renal cysts. stable 5. Acute on Chronic anemia. H&H 7.4/22.7 today. Patient is on dual antiplatelet therapy PLAN * Monitor vitals closely * Follow-up repeat blood cultures and line Cultures * On vancomycin per dialysis protocol protocol * Follow further ID recommendations * Type and cross * Check stool guaiac * Blood transfusion with dialysis tomorrow * Dialysis tomorrow * ALPS for DVT prophylaxis * Full code Diet: Renal dislysis diet DVT ppx: SQ Heparin Code status: Full code Problem List: 1. Septicemia Pain Ratin Pain Location: none Pain Goal: Pain 4 or less Pain Plan: tylenol Tomorrow's Labs & Rationales: cbc DVT/Prophylaxis: mechanical SVITLANA SMITH MD 04/04/17 1416: Attending MD Review Statement Attending Statement Attending MD Statement: examined this patient, discuss w/resident/PA/NOVELTIES SALES REPRESENTATIVE, agreed w/resident/PA/NOVELTIES SALES REPRESENTATIVE, reviewed EMR data (avail), discussed with nursing, discussed with case mgmt Attending Assessment/Plan: The patient continues to complain of nausea and he also still complains of chills. Of note his ultrasound was equivocal but his HIDA was negative for acute cholecystitis. His repeat blood cultures drawn peripherally on the is growing coag negative staph. I spoke to ID at length and there are 2 possibilities - one is that this is true coag negative staph septicemia with ongoing chills suggestive of line sepsis versus the coag negative staph is a contaminant and the chills are unrelated to that. At this point will defer to ID and continue the IV Vanco. He is having some discomfort around the [place] cath site and will need to talk to renal about further investigation. His hemoglobin is slowly drifting down. We did speak to renal and will type and screen him and transfuse him 2 units with dialysis tomorrow. Will guaiac all stool but so far he's been guaiac negative. Recent drug-eluting stent and needs his antiplatelet agents.
--- NOTE | 2017-04-04 10:25 | PN- Nephrology ---
Assessment/Plan Assessment: 1. End-stage renal disease. He is due for dialysis tomorrow. 2. Positive blood cultures. He has 2-blood cultures that were positive for staph epi on 2 separate days. The major concern here is whether or not his catheter is infected. Thus far, none of the blood cultures sent from the catheter have turned positive. 3. Anemia. Agree with Suggestion: 1. We'll plan on transfusion with dialysis tomorrow. 2. At this point, I do not see in objective reason to exchange her change his catheter. Subjective Subjective: Patient is still complaining of writers every day around noon. He cannot tell me if his temperature increases with this. He was also complaining of pain at the exit site of the Bao catheter. Objective Vital Signs and I&Os Vital Signs Date Time Temp Pulse Resp B/P B/P Pulse O2 O2 Flow FiO2 Mean Ox Delivery Rate 04/04 0854 126/64 04/04 0852 126/64 04/04 0851 126/64 04/04 0851 126/64 04/04 0821 98.0 64 20 128/64 97 Room Air 04/04 0000 Room Air 04/03 2342 98.7 70 20 122/66 95 Room Air 04/03 1940 98 Room Air Room Air 04/03 1628 99.7 74 20 122/80 92 Room Air Intake & Output 04/04 1600 04/04 0400 04/03 1600 04/03 0400 04/02 1600 04/02 0400 Intake Total 250 480 960 400 340 320 Output Total 515 750 9416 120 Balance 250 480 835 275 -1160 200 Intake, IV 0 Intake, Oral 250 480 960 400 340 320 Number 0 Bowel Movements Output, 1500 Dialysate Output, Urine 125 125 0 120 Patient 213 lb 211 lb 208 lb Weight Weight Chair scale Standing Scale Chair scale Measurement Method Physical Exam General Appearance: well developed/nourished, no apparent distress, alert, awake Head: atraumatic, normal appearance Ears, Nose, Throat: normal pharynx, normal ENT inspection, hearing grossly normal Neck: normal inspection, supple, full range of motion Peripheral Pulses: 2+ tibialis posterior (R), 2+ tibialis posterior (L), 2+ dorsalis pedis (R), 2+ dorsalis pedis (L) Abdomen: normal bowel sounds, soft, non-tender Back: no CVA tenderness Extremities: normal inspection, normal capillary refill, normal range of motion Neurologic/Psychiatric: no motor/sensory deficits, awake, alert, oriented x 3, normal mood/affect Skin: intact, normal color Lymphatic: adenopathy Other Physical Findings: Of note, there was no evidence of purulence or drainage from the Bao cath. Current Medications: Current Medications Sig/Julissa Start time Last Medication Dose Route Stop Time Status Admin Acetaminophen 650 MG Q6P PRN 03/27 2200 AC 04/02 PO 1657 Acetaminophen 1,000 MG Q8P PRN 03/27 220 AC IV Albuterol Sulfate 3 ML Q4H PRN 03/28 0930 AC INH Albuterol Sulfate 2 PUF Q4P PRN 03/27 221 AC INH Alprazolam 0.5 MG BID PRN 04/04 1030 AC PO 04/11 1029 Alprazolam 0.5 MG BID PRN 04/04 1030 CANr PO 04/11 1029 Alprazolam 0.5 MG ONCE ONE 04/03 2330 DC 04/03 PO 04/03 2331 2353 Alprazolam 0.5 MG BID PRN 03/27 2215 DC 04/03 PO 04/03 2214 1005 Aspirin Buffered 81 MG AT BEDTIME 03/28 220 AC 04/03 PO 2209 Atorvastatin Calcium 80 MG AT BEDTIME 03/28 2200 AC 04/03 PO 2210 Budesonide/ 2 PUF BID 03/27 2211 AC 04/04 Formoterol Fumarate INH 0852 Clonidine 0.1 MG BID 03/28 1000 AC 04/04 PO 0851 Clopidogrel Bisulfate 75 MG DAILY 03/28 1000 AC 04/04 PO 0852 Epoetin [place] 8,000 UNIT TuThSa PRN 03/29 1100 AC IV Famotidine 20 MG ONCE ONE 04/03 2330 DC 04/03 PO 04/03 2331 2353 Famotidine 20 MG DAILY 04/03 1000 AC 04/04 PO 0852 Folic Acid 1 MG DAILY 03/28 1000 AC 04/04 PO 0851 Furosemide 80 MG DAILY 03/28 1000 AC 04/04 PO 0852 Heparin Sodium 5,000 UNIT Q8 03/28 0600 AC 04/04 (Porcine) SC 0521 Insulin Aspart 0 TIDAC 03/28 0800 AC 04/04 SC 0851 Isosorbide 60 MG DAILY 03/28 1000 AC 04/04 Mononitrate PO 0851 Levothyroxine Sodium 0.2 MG DAILY AC 03/28 0700 AC 04/04 PO 0521 Melatonin 5 MG ONCE ONE 04/04 0330 DC 04/04 PO 04/04 0331 0330 Metoprolol Tartrate 100 MG DAILY 03/28 1000 AC 04/04 PO 0854 Polyethylene Glycol 17 GM DAILY 03/28 1353 AC 03/30 PO 1139 Prochlorperazine 10 MG Q6-PRN PRN 03/27 2215 AC 04/02 IV 1323 Ramelteon 8 MG AT BEDTIME 03/28 2200 AC 04/03 PO 2210 Senna/Docusate Sodium 2 TAB AT BEDTIME 03/28 2200 AC 04/02 PO 1330 Sertraline HCl 100 MG DAILY 03/28 1000 AC 04/04 PO 0852 Sevelamer Carbonate 1,600 MG WM 03/30 1700 AC 04/04 PO 0740 Simethicone 80 MG Q8 04/02 1402 AC 04/04 PO 0521 Tamsulosin HCl 0.4 MG DAILY 03/28 1000 AC 04/04 PO 0852 Trazodone HCl 150 MG QPM 03/28 2200 AC 04/03 PO 2210 Trimethobenzamide HCl 200 MG 4 TIMES/DAY PRN 03/31 1730 AC 04/01 IM 2057 Vancomycin HCl 1,000 MG ONCE ONE 04/05 1700 AC Sodium Chloride 250 ML IV 04/05 1759 Vancomycin HCl 1,000 MG ONE 04/05 0915 CAN IV 04/05 0916 Vancomycin HCl See Dose TuThSa PRN 04/04 0930 AC Insts (1) IV Dose Instructions: (1)Vancomycin HCl: DOSE BASED ON RANDOM VANCO LEVELS Results Pertinent Lab Results: Laboratory Tests 04/04 04/03 04/02 0658 1150 1355 Chemistry Sodium (137 - 145 mmol/L) 131 L 131 L Potassium (3.5 - 5.1 mmol/L) 3.8 3.9 Chloride (98 - 107 mmol/L) 94 L 95 L Carbon Dioxide (22 - 30 mmol/L) 26 26 Anion Gap (5 - 16) 11 11 BUN (9 - 20 mg/dL) 32 H 24 H Creatinine (0.7 - 1.2 mg/dL) 4.0 H 3.3 H Estimated GFR (>60 ml/min) 15 L 19 L BUN/Creatinine Ratio (7 - 25 %) 8.0 7.3 Coagulation PT (9.4 - 12.5 SEC) 12.1 INR (0.90 - 1.17) 1.15 Hematology CBC w Diff NO MAN DIFF REQ WBC (4.8 - 10.8 /CUMM) 4.3 L RBC (4.70 - 6.10 /CUMM) 2.82 L Hgb (14.0 - 18.0 G/DL) 7.4 *L Hct (42 - 52 %) 22.7 L MCV (80.0 - 94.0 FL) 80.6 MCH (27.0 - 31.0 PG) 26.3 L RDW (11.5 - 14.5 %) 16.4 H Plt Count (130 - 400 /CUMM) 115 L MPV (7.4 - 10.4 FL) 10.3 Gran % (42.2 - 75.2 %) 67.7 Lymphocytes % (20.5 - 51.1 %) 20.5 Monocytes % (1.7 - 9.3 %) 9.3 Eosinophils % (0 - 5 %) 2.0 Basophils % (0.0 - 2.0 %) 0.5 Absolute Granulocytes (1.4 - 6.5 /CUMM) 2.9 Absolute Lymphocytes (1.2 - 3.4 /CUMM) 0.9 L Absolute Monocytes (0.10 - 0.60 /CUMM) 0.4 Absolute Eosinophils (0.0 - 0.7 /CUMM) 0.1 Absolute Basophils (0.0 - 0.2 /CUMM) 0 PUBS MCHC (33.0 - 37.0 G/DL) 32.6 L Toxicology Random Vancomycin (ug/ml) 11.9 13.8 04/02 04/02 04/02 1006 0805 0600 Chemistry Sodium (137 - 145 mmol/L) 131 L Cancelled Potassium (3.5 - 5.1 mmol/L) 3.4 L Cancelled Chloride (98 - 107 mmol/L) 93 L Cancelled Carbon Dioxide (22 - 30 mmol/L) 24 Cancelled Anion Gap (5 - 16) 13 Cancelled BUN (9 - 20 mg/dL) 41 H Cancelled Creatinine (0.7 - 1.2 mg/dL) 4.3 H Cancelled Estimated GFR (>60 ml/min) 14 L BUN/Creatinine Ratio (7 - 25 %) 9.5 Cancelled Glucose (65 - 99 mg/dL) 157 H Calcium (8.4 - 10.2 mg/dL) 6.9 L Total Bilirubin (0.2 - 1.3 mg/dL) 1.1 Cancelled Direct Bilirubin (< 0.4 mg/dL) 0.7 H Cancelled AST (17 - 59 U/L) 65 H Cancelled ALT (21 - 72 U/L) 75 H Cancelled Alkaline Phosphatase (< 127 U/L) 81 Cancelled Total Protein (6.3 - 8.2 g/dL) 6.0 L Cancelled Albumin (3.5 - 5.0 g/dL) 3.3 L Cancelled Hematology CBC w Diff NO MAN DIFF REQ Cancelled WBC (4.8 - 10.8 /CUMM) 5.6 Cancelled RBC (4.70 - 6.10 /CUMM) 2.91 L Cancelled Hgb (14.0 - 18.0 G/DL) 7.6 L Cancelled Hct (42 - 52 %) 23.5 L Cancelled MCV (80.0 - 94.0 FL) 80.9 Cancelled MCH (27.0 - 31.0 PG) 26.1 L Cancelled RDW (11.5 - 14.5 %) 16.8 H Cancelled Plt Count (130 - 400 /CUMM) 129 L Cancelled MPV (7.4 - 10.4 FL) 10.2 Cancelled Gran % (42.2 - 75.2 %) 73.3 Lymphocytes % (20.5 - 51.1 %) 13.0 L Monocytes % (1.7 - 9.3 %) 11.6 H Eosinophils % (0 - 5 %) 1.8 Basophils % (0.0 - 2.0 %) 0.3 Absolute Granulocytes (1.4 - 6.5 /CUMM) 4.1 Absolute Lymphocytes (1.2 - 3.4 /CUMM) 0.7 L Absolute Monocytes (0.10 - 0.60 /CUMM) 0.7 H Absolute Eosinophils (0.0 - 0.7 /CUMM) 0.1 Absolute Basophils (0.0 - 0.2 /CUMM) 0 PUBS MCHC (33.0 - 37.0 G/DL) 32.3 L Cancelled Toxicology Vancomycin Trough Cancelled Random Vancomycin (ug/ml) 8.4
--- NOTE | 2017-04-04 11:03 | PN- Cardiology ---
Subjective Subjective: The patient continues to complain of intermittent chills. No chest pain. No shortness of breath. No palpitations. No diaphoresis. Objective Vital Signs and I&Os Vital Signs Date Time Temp Pulse Resp B/P B/P Pulse O2 O2 Flow FiO2 Mean Ox Delivery Rate 04/04 0854 126/64 04/04 0852 126/64 04/04 0851 126/64 04/04 0851 126/64 04/04 0821 98.0 64 20 128/64 97 Room Air 04/04 0000 Room Air 04/03 2342 98.7 70 20 122/66 95 Room Air 04/03 1940 98 Room Air Room Air 04/03 1628 99.7 74 20 122/80 92 Room Air Intake & Output 04/04 1600 04/04 0800 04/04 0000 04/03 1600 04/03 0800 04/03 0000 Intake Total 250 480 480 480 400 Output Total 125 125 Balance 250 480 480 355 275 Intake, IV 0 Intake, Oral 250 480 480 480 400 Number 0 Bowel Movements Output, Urine 125 125 Patient 213 lb 211 lb Weight Weight Chair scale Standing Scale Measurement Method Physical Exam: Gen: The patient is in no acute distress HEENT: Normal nose, ears, and oropharynx. Pupils equal bilaterally. Conjunctiva normal. Neck: Supple with no JVD, no masses, and no thyromegaly Lungs: Scattered rales with normal respiratory effort Heart: RRR, S1, S2, 1/6 systolic murmur. 2+ edema, 2+ pulses in the lower extremities bilaterally Abdomen: Soft, nontender, no masses. No hepatomegaly. No splenomegaly Extremities: No clubbing or cyanosis. Normal muscle strength in the upper and lower extremities Skin: Normal skin turgor with no skin ulcers or lesions noted. Neuro: Cranial nerves intact. Sensation intact Current Medications: Current Medications Sig/Julissa Start time Last Medication Dose Route Stop Time Status Admin Acetaminophen 650 MG Q6P PRN 03/27 2200 AC 04/02 PO 1657 Acetaminophen 1,000 MG Q8P PRN 03/27 2200 AC IV Albuterol Sulfate 3 ML Q4H PRN 03/28 0930 AC INH Albuterol Sulfate 2 PUF Q4P PRN 03/27 2215 AC INH Alprazolam 0.5 MG BID PRN 04/04 1030 AC 04/04 PO 04/11 1029 1030 Alprazolam 0.5 MG BID PRN 04/04 1030 CAN PO 04/11 1029 Alprazolam 0.5 MG ONCE ONE 04/03 2330 DC 04/03 PO 04/03 2331 2353 Alprazolam 0.5 MG BID PRN 03/27 2215 DC 04/03 PO 04/03 2214 1005 Aspirin Buffered 81 MG AT BEDTIME 03/28 2200 AC 04/03 PO 2209 Atorvastatin Calcium 80 MG AT BEDTIME 03/28 2200 AC 04/03 PO 2210 Budesonide/ 2 PUF BID 03/27 2211 AC 04/04 Formoterol Fumarate INH 0852 Clonidine 0.1 MG BID 03/28 1000 AC 04/04 PO 0851 Clopidogrel Bisulfate 75 MG DAILY 03/28 1000 AC 04/04 PO 0852 Epoetin [place] 8,000 UNIT TuThSa PRN 03/29 1100 AC IV Famotidine 20 MG ONCE ONE 04/03 2330 DC 04/03 PO 04/03 2331 2353 Famotidine 20 MG DAILY 04/03 1000 AC 04/04 PO 0852 Folic Acid 1 MG DAILY 03/28 1000 AC 04/04 PO 0851 Furosemide 80 MG DAILY 03/28 1000 AC 04/04 PO 0852 Heparin Sodium 5,000 UNIT Q8 03/28 0600 DC 04/04 (Porcine) SC 0521 Insulin Aspart 0 TIDAC 03/28 0800 AC 04/04 SC 0851 Isosorbide 60 MG DAILY 03/28 1000 AC 04/04 Mononitrate PO 0851 Levothyroxine Sodium 0.2 MG DAILY AC 03/28 0700 AC 04/04 PO 0521 Melatonin 5 MG ONCE ONE 04/04 0330 DC 04/04 PO 04/04 0331 0330 Metoprolol Tartrate 100 MG DAILY 03/28 1000 AC 04/04 PO 0854 Polyethylene Glycol 17 GM DAILY 03/28 1353 AC 03/30 PO 1139 Prochlorperazine 10 MG Q6-PRN PRN 03/27 2215 AC 04/02 IV 1323 Ramelteon 8 MG AT BEDTIME 03/28 2200 AC 04/03 PO 2210 Senna/Docusate Sodium 2 TAB AT BEDTIME 03/28 2200 AC 04/02 PO 1330 Sertraline HCl 100 MG DAILY 03/28 1000 AC 04/04 PO 0852 Sevelamer Carbonate 1,600 MG WM 03/30 1700 AC 04/04 PO 0740 Simethicone 80 MG Q8 04/02 1402 AC 04/04 PO 0521 Tamsulosin HCl 0.4 MG DAILY 03/28 1000 AC 04/04 PO 0852 Trazodone HCl 150 MG QPM 03/28 2200 AC 04/03 PO 2210 Trimethobenzamide HCl 200 MG 4 TIMES/DAY PRN 03/31 1730 AC 04/01 IM 2057 Vancomycin HCl 1,000 MG ONCE ONE 04/05 1700 AC Sodium Chloride 250 ML IV 04/05 1759 Vancomycin HCl 1,000 MG ONE 04/05 0915 CAN IV 04/05 0916 Vancomycin HCl See Dose TuThSa PRN 04/04 0930 AC Insts (1) IV Dose Instructions: (1)Vancomycin HCl: DOSE BASED ON RANDOM VANCO LEVELS Results Last 48 Hrs of Labs/Mics: Laboratory Tests 04/04/17 0658: Anion Gap 11, Estimated GFR 15 L, BUN/Creatinine Ratio 8.0, CBC w Diff NO MAN DIFF REQ, RBC 2.82 L, MCV 80.6, MCH 26.3 L, RDW 16.4 H, MPV 10.3, Gran % 67.7 , Lymphocytes % 20.5, Monocytes % 9.3, Eosinophils % 2.0, Basophils % 0.5, Absolute Granulocytes 2.9, Absolute Lymphocytes 0.9 L, Absolute Monocytes 0.4, Absolute Eosinophils 0.1, Absolute Basophils 0, PUBS MCHC 32.6 L, Random Vancomycin 11.9 04/03/17 1150: Anion Gap 11, Estimated GFR 19 L, BUN/Creatinine Ratio 7.3, Random Vancomycin 13.8 04/02/17 1355: PT 12.1, INR 1.15 Assessment/Plan Assessment/Plan Assessment: 1. Coronary artery disease, stable 2. Diabetes mellitus 3. End-stage renal disease, on hemodialysis 4. Chronic HFpEF, improved on dialysis 5. Acute gastroenteritis, likely viral 6. Elevated troponin secondary to demand ischemia, stable Plan: * Continue by mouth Lasix * Dialysis as per nephrology * Continue other cardiac medications Continue telemetry? No
--- NOTE | 2017-04-04 11:42 | PN- Infect Dx ---
Subjective Subjective: Afebrile. He continues to complain of rigors, with a prolonged episode 2 days ago and a shorter episode yesterday. He also notes some discomfort at the right IJ Bao catheter site. He continues to complain of nausea with no vomiting or abdominal pain. Objective Last 24 Hrs of Vital Signs/I&O Vital Signs Date Time Temp Pulse Resp B/P B/P Pulse O2 O2 Flow FiO2 Mean Ox Delivery Rate 04/04 0854 126/64 04/04 0852 126/64 04/04 0851 126/64 04/04 0851 126/64 04/04 0821 98.0 64 20 128/64 97 Room Air 04/04 0000 Room Air 04/03 2342 98.7 70 20 122/66 95 Room Air 04/03 1940 98 Room Air Room Air 04/03 1628 99.7 74 20 122/80 92 Room Air Intake & Output 04/04 1600 04/04 0800 04/04 0000 Intake Total 250 480 Output Total Balance 250 480 Intake, IV 0 Intake, Oral 250 480 Number 0 Bowel Movements Patient 213 lb Weight Weight Chair scale Measurement Method Physical Exam Other Physical Findings: He appears comfortable in no acute distress Neck right IJ Bao catheter slightly tender to palpation, with no erythema or drainage Lungs are clear Heart regular rhythm with no murmur Abdomen is soft, nontender with positive bowel sounds Extremities no cyanosis, clubbing or edema Results Last 24 Hours of Lab Results: Laboratory Tests 04/04 04/03 0658 1150 Chemistry Sodium (137 - 145 mmol/L) 131 L 131 L Potassium (3.5 - 5.1 mmol/L) 3.8 3.9 Chloride (98 - 107 mmol/L) 94 L 95 L Carbon Dioxide (22 - 30 mmol/L) 26 26 Anion Gap (5 - 16) 11 11 BUN (9 - 20 mg/dL) 32 H 24 H Creatinine (0.7 - 1.2 mg/dL) 4.0 H 3.3 H Estimated GFR (>60 ml/min) 15 L 19 L BUN/Creatinine Ratio (7 - 25 %) 8.0 7.3 Hematology CBC w Diff NO MAN DIFF REQ WBC (4.8 - 10.8 /CUMM) 4.3 L RBC (4.70 - 6.10 /CUMM) 2.82 L Hgb (14.0 - 18.0 G/DL) 7.4 *L Hct (42 - 52 %) 22.7 L MCV (80.0 - 94.0 FL) 80.6 MCH (27.0 - 31.0 PG) 26.3 L RDW (11.5 - 14.5 %) 16.4 H Plt Count (130 - 400 /CUMM) 115 L MPV (7.4 - 10.4 FL) 10.3 Gran % (42.2 - 75.2 %) 67.7 Lymphocytes % (20.5 - 51.1 %) 20.5 Monocytes % (1.7 - 9.3 %) 9.3 Eosinophils % (0 - 5 %) 2.0 Basophils % (0.0 - 2.0 %) 0.5 Absolute Granulocytes (1.4 - 6.5 /CUMM) 2.9 Absolute Lymphocytes (1.2 - 3.4 /CUMM) 0.9 L Absolute Monocytes (0.10 - 0.60 /CUMM) 0.4 Absolute Eosinophils (0.0 - 0.7 /CUMM) 0.1 Absolute Basophils (0.0 - 0.2 /CUMM) 0 PUBS MCHC (33.0 - 37.0 G/DL) 32.6 L Toxicology Random Vancomycin (ug/ml) 11.9 13.8 Last 24 Hours of Angus Results: Blood cultures March 31 one bottle positive for coag-negative Staph Blood cultures 2 April 02 remain negative Assessment/Plan Impression: Recurrent rigors, with no further documented fevers or hypotension and with white blood cell count remaining normal, despite now 4 days of Vancomycin for possible coag-negative Staph line sepsis, though most of his blood cultures, including the most recent ones obtained 2 days ago, remain negative, suggesting that the positive cultures may represent contaminants. Though coag-negative Staph line sepsis can often be treated without removal of the catheter if his rigors persists and no other source of sepsis is identified the catheter may need to be removed, particularly as it is now tender to palpation. Suggestion: 1. Follow-up recent blood cultures 2. Obtain a random Vancomycin level prior to dialysis on April 05 3. Would plan to re-dose with Vancomycin tomorrow after dialysis per dialysis protocol 4. Will discuss further with Renal regarding removal of the catheter if his rigors and/or tenderness at the catheter site persist
[2017-04-04 16:21] VITALS: BP 124/60
[2017-04-04 23:33] VITALS: BP 120/72
[2017-04-05 07:17] VITALS: BP 110/60
--- NOTE | 2017-04-05 09:14 | PN- Nephrology ---
Assessment/Plan Assessment: 1. End-stage renal disease. Seen with hemodialysis in progress. 2. Positive blood cultures. He has 2-blood cultures that were positive for staph epi on 2 separate days. The major concern here is whether or not his catheter is infected. There is been no further growth and he is on vancomycin. He is still having rogors. 3. Anemia. He is being transfused. Will likely need increase his Epogen. Suggestion: 1. Antibiotics as per Dr. Larios 2. Next hemodialysis will be on 3. Will increase Epogen with next visit Subjective Subjective: Patient seen with dialysis. Thus far uneventful. Objective Vital Signs and I&Os Vital Signs Date Time Temp Pulse Resp B/P B/P Pulse O2 O2 Flow FiO2 Mean Ox Delivery Rate 04/05 0717 98.2 59 20 110/60 100 Room Air 04/04 2333 98.5 68 20 120/72 94 Room Air 04/04 2200 60 102/60 04/04 1852 97 Nasal 2.0L Cannula 04/04 1701 Nasal 2.0L Cannula 04/04 1621 97.7 66 20 124/60 95 Room Air 04/04 1600 Nasal 2.0L Cannula 04/04 1411 95 Room Air Intake & Output 04/05 1600 04/05 0400 04/04 1600 04/04 0400 04/03 1600 04/03 0400 Intake Total 400 600 650 480 960 400 Output Total 350 125 125 Balance 400 600 300 480 835 275 Intake, IV 0 Intake, Oral 400 600 650 480 960 400 Number 0 Bowel Movements Output, Urine 350 125 125 Patient 213 lb 213 lb 211 lb Weight Weight Chair scale Chair scale Standing Scale Measurement Method Physical Exam: General Appearance: well developed/nourished, no apparent distress, alert, awake Head: atraumatic, normal appearance Ears, Nose, Throat: normal pharynx, normal ENT inspection, hearing grossly normal Neck: normal inspection, supple, full range of motion Abdomen: normal bowel sounds, soft, non-tender Extremities: normal inspection, normal capillary refill, normal range of motion Neurologic/Psychiatric: no motor/sensory deficits, awake, alert, oriented x 3, normal mood/affect Skin: intact, normal color Lymphatic: noadenopathy Current Medications: Current Medications Sig/Julissa Start time Last Medication Dose Route Stop Time Status Admin Acetaminophen 650 MG Q6P PRN 03/27 2200 AC 04/02 PO 1657 Acetaminophen 1,000 MG Q8P PRN 03/27 2200 AC IV Albuterol Sulfate 3 ML Q4H PRN 03/28 0930 AC INH Albuterol Sulfate 2 PUF Q4P PRN 03/27 2215 AC INH Alprazolam 0.5 MG BID PRN 04/04 1030 AC 04/04 PO 04/11 1029 1709 Alprazolam 0.5 MG BID PRN 04/04 1030 CAN PO 04/11 1029 Aspirin Buffered 81 MG AT BEDTIME 03/28 2200 AC 04/04 PO 2127 Atorvastatin Calcium 80 MG AT BEDTIME 03/28 2200 AC 04/04 PO 2127 Benzonatate 100 MG TID 04/05 1000 AC PO Budesonide/ 2 PUF BID 03/27 2211 AC 04/04 Formoterol Fumarate INH 2128 Clonidine 0.1 MG BID 03/28 1000 AC 04/04 PO 0851 Clopidogrel Bisulfate 75 MG DAILY 03/28 1000 AC 04/04 PO 0852 Epoetin [place] 8,000 UNIT TuThSa PRN 03/29 1100 AC IV Famotidine 20 MG DAILY 04/03 1000 AC 04/04 PO 0852 Folic Acid 1 MG DAILY 03/28 1000 AC 04/04 PO 0851 Furosemide 80 MG DAILY 03/28 1000 AC 04/04 PO 0852 Heparin Sodium 5,000 UNIT Q8 03/28 0600 DC 04/04 (Porcine) SC 0521 Insulin Aspart 0 TIDAC 03/28 0800 AC 04/04 SC 1255 Isosorbide 60 MG DAILY 03/28 1000 AC 04/04 Mononitrate PO 0851 Levothyroxine Sodium 0.2 MG DAILY AC 03/28 0700 AC 04/05 PO 0634 Metoprolol Tartrate 100 MG DAILY 03/28 1000 AC 04/04 PO 0854 Polyethylene Glycol 17 GM DAILY 03/28 1353 AC 03/30 PO 1139 Prochlorperazine 10 MG Q6-PRN PRN 03/27 2215 AC 04/02 IV 1323 Ramelteon 8 MG AT BEDTIME 03/28 2200 AC 04/04 PO 2127 Senna/Docusate Sodium 2 TAB AT BEDTIME 03/28 2200 AC 04/02 PO 1330 Sertraline HCl 100 MG DAILY 03/28 1000 AC 04/04 PO 0852 Sevelamer Carbonate 1,600 MG WM 03/30 1700 AC 04/04 PO 1709 Simethicone 80 MG Q8 04/02 1402 AC 04/05 PO 0634 Tamsulosin HCl 0.4 MG DAILY 03/28 1000 AC 04/04 PO 0852 Trazodone HCl 150 MG QPM 03/28 2200 AC 04/04 PO 2127 Trimethobenzamide HCl 200 MG 4 TIMES/DAY PRN 03/31 1730 AC 04/01 IM 2057 Vancomycin HCl 1,000 MG ONCE ONE 04/05 1700 AC Sodium Chloride 250 ML IV 04/05 1759 Vancomycin HCl 1,000 MG ONE 04/05 0915 CAN IV 04/05 0916 Vancomycin HCl See Dose TuThSa PRN 04/04 0930 AC Insts (1) IV Dose Instructions: (1)Vancomycin HCl: DOSE BASED ON RANDOM VANCO LEVELS Results Pertinent Lab Results: Laboratory Tests 04/05 04/05 04/04 0815 0600 1800 Chemistry Sodium Pending Potassium Pending Chloride Pending Carbon Dioxide Pending Anion Gap Pending BUN Pending Creatinine Pending BUN/Creatinine Ratio Pending Calcium Pending Hematology CBC w Diff Pending Cancelled WBC Pending Cancelled RBC Pending Cancelled Hgb Pending Cancelled Hct Pending Cancelled MCV Pending Cancelled MCH Pending Cancelled RDW Pending Cancelled Plt Count Pending Cancelled MPV Pending Cancelled PUBS MCHC Pending Cancelled Toxicology Random Vancomycin Pending Cancelled 04/04 04/03 04/02 0658 1150 1355 Chemistry Sodium (137 - 145 mmol/L) 131 L 131 L Potassium (3.5 - 5.1 mmol/L) 3.8 3.9 Chloride (98 - 107 mmol/L) 94 L 95 L Carbon Dioxide (22 - 30 mmol/L) 26 26 Anion Gap (5 - 16) 11 11 BUN (9 - 20 mg/dL) 32 H 24 H Creatinine (0.7 - 1.2 mg/dL) 4.0 H 3.3 H Estimated GFR (>60 ml/min) 15 L 19 L BUN/Creatinine Ratio (7 - 25 %) 8.0 7.3 Coagulation PT (9.4 - 12.5 SEC) 12.1 INR (0.90 - 1.17) 1.15 Hematology CBC w Diff NO MAN DIFF REQ WBC (4.8 - 10.8 /CUMM) 4.3 L RBC (4.70 - 6.10 /CUMM) 2.82 L Hgb (14.0 - 18.0 G/DL) 7.4 *L Hct (42 - 52 %) 22.7 L MCV (80.0 - 94.0 FL) 80.6 MCH (27.0 - 31.0 PG) 26.3 L RDW (11.5 - 14.5 %) 16.4 H Plt Count (130 - 400 /CUMM) 115 L MPV (7.4 - 10.4 FL) 10.3 Gran % (42.2 - 75.2 %) 67.7 Lymphocytes % (20.5 - 51.1 %) 20.5 Monocytes % (1.7 - 9.3 %) 9.3 Eosinophils % (0 - 5 %) 2.0 Basophils % (0.0 - 2.0 %) 0.5 Absolute Granulocytes (1.4 - 6.5 /CUMM) 2.9 Absolute Lymphocytes (1.2 - 3.4 /CUMM) 0.9 L Absolute Monocytes (0.10 - 0.60 /CUMM) 0.4 Absolute Eosinophils (0.0 - 0.7 /CUMM) 0.1 Absolute Basophils (0.0 - 0.2 /CUMM) 0 PUBS MCHC (33.0 - 37.0 G/DL) 32.6 L Toxicology Random Vancomycin (ug/ml) 11.9 13.8 04/02 1006 Toxicology Vancomycin Trough Cancelled
[2017-04-05 09:25] LABS: ABSOLUTE BASOPHIL COUNT 0 /CUMM (0.0-0.2); MEAN CORPUSCULAR HGB 26.3 PG (27.0-31.0); RED BLOOD CELL CT 2.64 /CUMM (4.70-6.10)
[2017-04-05 09:31] LABS: ABSOLUTE EOSINOPHIL COUNT 0.1 /CUMM (0.0-0.7); ABSOLUTE LYMPH COUNT 0.8 /CUMM (1.2-3.4); ABSOLUTE MONOCYTE COUNT 0.5 /CUMM (0.10-0.60); BASOPHIL % 0.3 % (0.0-2.0); HEMATOCRIT 20.9 % (42-52); MEAN CORPUSCULAR HGB CONC 33.2 G/DL (33.0-37.0); MEAN CORPUSCULAR VOLUME 79.2 FL (80.0-94.0); MEAN PLATELET VOLUME 10.9 FL (7.4-10.4); PLATELET COUNT 125 /CUMM (130-400); RBC DISTRIBUTION WIDTH 16.3 % (11.5-14.5); WHITE BLOOD CELL COUNT 5.4 /CUMM (4.8-10.8)
--- NOTE | 2017-04-05 09:35 | PN- Housestaff ---
Subjective Follow-up For: Staph coagulase bacteremia Elevated troponins Chronic kidney disease rigors/chills Subjective: This morning patient is complaining of cough and bringing up clear phlegm. He denies any chest pain or discomfort. He reports decreased appetite. Denies any abdominal pain, diarrhea or constipation. Denies any urinary symptoms. Review of Systems Constitutional: Reports: see HPI. Objective Last 24 Hrs of Vital Signs/I&O Vital Signs Date Time Temp Pulse Resp B/P B/P Pulse O2 O2 Flow FiO2 Mean Ox Delivery Rate 04/05 0717 98.2 59 20 110/60 100 Room Air 04/04 2333 98.5 68 20 120/72 94 Room Air 04/04 2200 60 102/60 04/04 1852 97 Nasal 2.0L Cannula 04/04 1701 Nasal 2.0L Cannula 04/04 1621 97.7 66 20 124/60 95 Room Air 04/04 1600 Nasal 2.0L Cannula 04/04 1411 95 Room Air Intake & Output 04/05 1600 04/05 0800 04/05 0000 Intake Total 400 600 Output Total Balance 400 600 Intake, Oral 400 600 Patient 213 lb Weight Weight Chair scale Measurement Method Physical Exam General Appearance: Alert, Oriented X3, Cooperative, No Acute Distress Cardiovascular: Regular Rate Lungs: decreased air entry on right side Abdomen: Normal Bowel Sounds, Soft, No Tenderness Neurological: Normal Speech, Strength at 5/5 X4 Ext, Sensation Intact, Cranial Nerves 3-12 NL Extremities: No Edema Current Medications: Current Medications Sig/Julissa Start time Last Medication Dose Route Stop Time Status Admin Acetaminophen 650 MG Q6P PRN 03/27 2200 AC 04/02 PO 1657 Acetaminophen 1,000 MG Q8P PRN 03/27 2200 AC IV Albuterol Sulfate 3 ML Q4H PRN 03/28 0930 AC INH Albuterol Sulfate 2 PUF Q4P PRN 03/27 2215 AC INH Alprazolam 0.5 MG BID PRN 04/04 1030 AC 04/04 PO 04/11 1029 1709 Alprazolam 0.5 MG BID PRN 04/04 1030 CAN PO 04/11 1029 Aspirin Buffered 81 MG AT BEDTIME 03/28 220 AC 04/04 PO 2126 Atorvastatin Calcium 80 MG AT BEDTIME 03/28 220 AC 04/04 PO 212 Benzonatate 100 MG TID 04/05 1000 AC PO Budesonide/ 2 PUF BID 03/27 2211 AC 04/04 Formoterol Fumarate INH 2128 Clonidine 0.1 MG BID 03/28 1000 AC 04/04 PO 0851 Clopidogrel Bisulfate 75 MG DAILY 03/28 1000 AC 04/04 PO 0852 Epoetin [place] 8,000 UNIT TuThSa PRN 03/29 1100 AC IV Famotidine 20 MG DAILY 04/03 1000 AC 04/04 PO 0852 Folic Acid 1 MG DAILY 03/28 1000 AC 04/04 PO 0851 Furosemide 80 MG DAILY 03/28 1000 AC 04/04 PO 0852 Heparin Sodium 5,000 UNIT Q8 03/28 0600 DC 04/04 (Porcine) SC 0521 Insulin Aspart 0 TIDAC 03/28 0800 AC 04/04 SC 1255 Isosorbide 60 MG DAILY 03/28 1000 AC 04/04 Mononitrate PO 0851 Levothyroxine Sodium 0.2 MG DAILY AC 03/28 0700 AC 04/05 PO 0634 Metoprolol Tartrate 100 MG DAILY 03/28 1000 AC 04/04 PO 0854 Polyethylene Glycol 17 GM DAILY 03/28 1353 AC 03/30 PO 1139 Prochlorperazine 10 MG Q6-PRN PRN 03/27 2215 AC 04/02 IV 1323 Ramelteon 8 MG AT BEDTIME 03/28 2200 AC 04/04 PO 2127 Senna/Docusate Sodium 2 TAB AT BEDTIME 03/28 2200 AC 04/02 PO 1330 Sertraline HCl 100 MG DAILY 03/28 1000 AC 04/04 PO 0852 Sevelamer Carbonate 1,600 MG WM 03/30 1700 AC 04/04 PO 1709 Simethicone 80 MG Q8 04/02 1402 AC 04/05 PO 0634 Tamsulosin HCl 0.4 MG DAILY 03/28 1000 AC 04/04 PO 0852 Trazodone HCl 150 MG QPM 03/28 2200 AC 04/04 PO 2127 Trimethobenzamide HCl 200 MG 4 TIMES/DAY PRN 03/31 1730 AC 04/01 IM 2057 Vancomycin HCl 1,000 MG ONCE ONE 04/05 1700 AC Sodium Chloride 250 ML IV 04/05 1759 Vancomycin HCl See Dose TuThSa PRN 04/04 0930 AC Insts (1) IV Dose Instructions: (1)Vancomycin HCl: DOSE BASED ON RANDOM VANCO LEVELS Last 24 Hrs of Lab/Angus Results Last 24 Hrs of Labs/Mics: Laboratory Tests 04/05/17 0815: Sodium Pending, Potassium Pending, Chloride Pending, Carbon Dioxide Pending, Anion Gap Pending, BUN Pending, Creatinine Pending, BUN/Creatinine Ratio Pending , Calcium Pending, Random Vancomycin Pending 04/05/17 0600: CBC w Diff Pending, WBC Pending, RBC Pending, Hgb Pending, Hct Pending, MCV Pending, MCH Pending, RDW Pending, Plt Count Pending, MPV Pending, PUBS MCHC Pending, Random Vancomycin Cancelled 04/04/17 1800: CBC w Diff Cancelled, WBC Cancelled, RBC Cancelled, Hgb Cancelled, Hct Cancelled , MCV Cancelled, MCH Cancelled, RDW Cancelled, Plt Count Cancelled, MPV Cancelled, PUBS MCHC Cancelled Assessment/Plan Assessment: 67 year old Man with PMH of CAD s/p stents (Oct 2016), COPD, T2DM, neuropathy, MILES noncompliant with CPAP, HFpEF, CKD stage 5 s/p AV fistula (January 2017), multiple admits for chest pain, dyspnea and elevated troponins, initiated on HD (TTS) via [facility] during recent admission for fluid overload (03/15-03/23). 1. Chills and rigors. etiology unclear. Could be due to dialysis catheter. Blood culture March 29 and one set growing staph coagulase negative. WBC count normal. No fever in last 48 hours 2. Elevated troponins. Most likely secondary to chronic kidney disease and poor clearance vs demand ischemia vs NSTEMI. Echocardiogram shows worsening of the apical wall motion abnormality. Ejection fraction approximate 45%. 3. History of end-stage renal disease on dialysis, Tuesday and Tuesday. 4. Bilateral cortical and exophytic renal cysts. stable 5. Acute on Chronic anemia. H&H 6.9/20.9 today. Patient is on dual antiplatelet therapy 6. Transaminitis. ? liver congestion 7 . Hyponatremia. Most likely secondary to fluid overload 8 . Thrombocytopenia. Platelet count 125. No evidence of active bleeding PLAN * Monitor vitals closely * repeat blood cultures and line Cultures NTD * On vancomycin per dialysis protocol protocol * Follow further ID recommendations * Scheduled for dialysis today * 2 units of blood transfusion with dialysis * Check iron studies * Tessalon caps for cough * Incentive spirometry * Check stool guaiac * ALPS for DVT prophylaxis * Full code Diet: Renal dislysis diet DVT ppx: SQ Heparin Code status: Full code Problem List: 1. Septicemia Pain Ratin Pain Location: none Pain Goal: Pain 4 or less Pain Plan: tylenol Tomorrow's Labs & Rationales: cbc DVT/Prophylaxis: mechanical
[2017-04-05 13:32] VITALS: BP 130/82
--- NOTE | 2017-04-05 13:42 | PN- Infect Dx ---
Subjective Subjective: Afebrile without complaints. He does report rigors lasting about 45 minutes yesterday. Objective Last 24 Hrs of Vital Signs/I&O Vital Signs Date Time Temp Pulse Resp B/P B/P Pulse O2 O2 Flow FiO2 Mean Ox Delivery Rate 04/05 1332 97.8 62 20 130/82 99 Room Air 04/05 0717 98.2 59 20 110/60 100 Room Air 04/04 2333 98.5 68 20 120/72 94 Room Air 04/04 2200 60 102/60 04/04 1852 97 Nasal 2.0L Cannula 04/04 1701 Nasal 2.0L Cannula 04/04 1621 97.7 66 20 124/60 95 Room Air 04/04 1600 Nasal 2.0L Cannula 04/04 1411 95 Room Air Intake & Output 04/05 1600 04/05 0800 04/05 0000 Intake Total 400 600 Output Total Balance 400 600 Intake, Oral 400 600 Patient 207 lb Weight Weight Chair scale Measurement Method Physical Exam Other Physical Findings: He appears comfortable in no acute distress Neck right IJ catheter with no inflammation at the site Lungs are clear Heart regular rhythm with no murmur Abdomen is soft, nontender with positive bowel sounds Extremities no cyanosis, clubbing or edema Results Last 24 Hours of Lab Results: Laboratory Tests 04/05 04/05 04/05 0842 0815 0600 Chemistry Sodium (137 - 145 mmol/L) 129 L Potassium (3.5 - 5.1 mmol/L) 3.8 Chloride (98 - 107 mmol/L) 94 L Carbon Dioxide (22 - 30 mmol/L) 24 Anion Gap (5 - 16) 12 BUN (9 - 20 mg/dL) 45 H Creatinine (0.7 - 1.2 mg/dL) 4.7 H Estimated GFR (>60 ml/min) 13 L BUN/Creatinine Ratio (7 - 25 %) 9.6 Calcium (8.4 - 10.2 mg/dL) 7.6 L Iron (49 - 181 ug/dL) 60 TIBC (261 - 462 ug/dL) 277 Ferritin (17.9 - 464 ng/mL) 485.0 H Total Bilirubin (0.2 - 1.3 mg/dL) 1.3 Direct Bilirubin (< 0.4 mg/dL) 0.7 H AST (17 - 59 U/L) 99 H ALT (21 - 72 U/L) 114 H Alkaline Phosphatase (< 127 U/L) 91 Total Protein (6.3 - 8.2 g/dL) 5.7 L Albumin (3.5 - 5.0 g/dL) 3.3 L Vitamin B12 (239 - 931 pg/mL) 920 Folate (2.76 - 20.0 ng/mL) 18.0 Hematology CBC w Diff Cancelled NO MAN DIFF REQ WBC (4.8 - 10.8 /CUMM) Cancelled 5.4 RBC (4.70 - 6.10 /CUMM) Cancelled 2.64 L Hgb (14.0 - 18.0 G/DL) Cancelled 6.9 *L Hct (42 - 52 %) Cancelled 20.9 L MCV (80.0 - 94.0 FL) Cancelled 79.2 L MCH (27.0 - 31.0 PG) Cancelled 26.3 L RDW (11.5 - 14.5 %) Cancelled 16.3 H Plt Count (130 - 400 /CUMM) Cancelled 125 L MPV (7.4 - 10.4 FL) Cancelled 10.9 H Gran % (42.2 - 75.2 %) 73.0 Lymphocytes % (20.5 - 51.1 %) 14.8 L Monocytes % (1.7 - 9.3 %) 9.9 H Eosinophils % (0 - 5 %) 2.0 Basophils % (0.0 - 2.0 %) 0.3 Absolute Granulocytes (1.4 - 6.5 /CUMM) 4.0 Absolute Lymphocytes (1.2 - 3.4 /CUMM) 0.8 L Absolute Monocytes (0.10 - 0.60 /CUMM) 0.5 Absolute Eosinophils (0.0 - 0.7 /CUMM) 0.1 Absolute Basophils (0.0 - 0.2 /CUMM) 0 PUBS MCHC (33.0 - 37.0 G/DL) Cancelled 33.2 Toxicology Random Vancomycin (ug/ml) 10.5 Cancelled 04/04 1800 Hematology CBC w Diff Cancelled WBC Cancelled RBC Cancelled Hgb Cancelled Hct Cancelled MCV Cancelled MCH Cancelled RDW Cancelled Plt Count Cancelled MPV Cancelled PUBS MCHC Cancelled Last 24 Hours of Angus Results: Blood cultures April 02 remain negative Assessment/Plan Impression: Recurrent rigors, with no further documented fevers or hypotension and with white blood cell count remaining normal, despite now 5 days of Vancomycin for possible coag-negative Staph line sepsis, though most of his blood cultures, including the most recent ones obtained 3 days ago, remain negative, suggesting that the positive cultures may represent contaminants. Though coag-negative Staph line sepsis can often be treated without removal of the catheter if his rigors persists and no other source of sepsis is identified the catheter may need to be removed. Other, noninfectious, causes of rigors should also be considered, including thyroid disease, and he is on Synthroid. Suggestion: 1. Follow-up recent blood cultures 2. Check thyroid function tests 3. Continue Vancomycin after dialysis per dialysis protocol
--- NOTE | 2017-04-05 15:08 | PN- Att Addend ---
Attending Addendum Attending Brief Note Patient seen and examined. Plan of care discussed with the medical team and the patient. Available lab work and radiology test reports were reviewed. Patient was seen during hemodialysis. His feeling cold but denies any chills. Denies any fever or chest pain or difficulty breathing. Overall he appears comfortable. Vital Signs Date Time Temp Pulse Resp B/P B/P Pulse O2 O2 Flow FiO2 Mean Ox Delivery Rate 04/05 1422 Room Air 04/05 1339 62 130/82 04/05 1338 62 130/82 04/05 1338 62 130/82 04/05 1337 62 130/82 04/05 1332 97.8 62 20 130/82 99 Room Air 04/05 0717 98.2 59 20 110/60 100 Room Air 04/04 2333 98.5 68 20 120/72 94 Room Air 04/04 2200 60 102/60 04/04 1852 97 Nasal 2.0L Cannula 04/04 1701 Nasal 2.0L Cannula 04/04 1621 97.7 66 20 124/60 95 Room Air 04/04 1600 Nasal 2.0L Cannula Intake & Output 04/05 1600 04/05 0800 04/05 0000 Intake Total 1070 400 600 Output Total 2.5 Balance 1067.5 400 600 Intake, Blood 700 Product Intake, IV 250 Intake, Oral 120 400 600 Output, 2.5 Dialysate Patient 207 lb Weight Weight Chair scale Measurement Method Exam: General: Patient awake alert oriented without any distress CVS: S1 plus S2 without any murmur or gallops Chest: Few scattered crepitation without any wheeze. There is no respiratory distress. Dialysis catheter intact Abdomen: Soft nontender, bowel sound present, no guarding or rebound GAMBRELER HELPER: Awake alert oriented without any focal neuro deficit and follows command appropriately Extremities: No edema; no clubbing or cyanosis noted Laboratory Tests 04/05 04/05 04/05 0842 0815 0600 Chemistry Sodium (137 - 145 mmol/L) 129 L Potassium (3.5 - 5.1 mmol/L) 3.8 Chloride (98 - 107 mmol/L) 94 L Carbon Dioxide (22 - 30 mmol/L) 24 Anion Gap (5 - 16) 12 BUN (9 - 20 mg/dL) 45 H Creatinine (0.7 - 1.2 mg/dL) 4.7 H Estimated GFR (>60 ml/min) 13 L BUN/Creatinine Ratio (7 - 25 %) 9.6 Calcium (8.4 - 10.2 mg/dL) 7.6 L Iron (49 - 181 ug/dL) 60 TIBC (261 - 462 ug/dL) 277 Ferritin (17.9 - 464 ng/mL) 485.0 H Total Bilirubin (0.2 - 1.3 mg/dL) 1.3 Direct Bilirubin (< 0.4 mg/dL) 0.7 H AST (17 - 59 U/L) 99 H ALT (21 - 72 U/L) 114 H Alkaline Phosphatase (< 127 U/L) 91 Total Protein (6.3 - 8.2 g/dL) 5.7 L Albumin (3.5 - 5.0 g/dL) 3.3 L Vitamin B12 (239 - 931 pg/mL) 920 Folate (2.76 - 20.0 ng/mL) 18.0 Hematology CBC w Diff Cancelled NO MAN DIFF REQ WBC (4.8 - 10.8 /CUMM) Cancelled 5.4 RBC (4.70 - 6.10 /CUMM) Cancelled 2.64 L Hgb (14.0 - 18.0 G/DL) Cancelled 6.9 *L Hct (42 - 52 %) Cancelled 20.9 L MCV (80.0 - 94.0 FL) Cancelled 79.2 L MCH (27.0 - 31.0 PG) Cancelled 26.3 L RDW (11.5 - 14.5 %) Cancelled 16.3 H Plt Count (130 - 400 /CUMM) Cancelled 125 L MPV (7.4 - 10.4 FL) Cancelled 10.9 H Gran % (42.2 - 75.2 %) 73.0 Lymphocytes % (20.5 - 51.1 %) 14.8 L Monocytes % (1.7 - 9.3 %) 9.9 H Eosinophils % (0 - 5 %) 2.0 Basophils % (0.0 - 2.0 %) 0.3 Absolute Granulocytes (1.4 - 6.5 /CUMM) 4.0 Absolute Lymphocytes (1.2 - 3.4 /CUMM) 0.8 L Absolute Monocytes (0.10 - 0.60 /CUMM) 0.5 Absolute Eosinophils (0.0 - 0.7 /CUMM) 0.1 Absolute Basophils (0.0 - 0.2 /CUMM) 0 PUBS MCHC (33.0 - 37.0 G/DL) Cancelled 33.2 Toxicology Random Vancomycin (ug/ml) 10.5 Cancelled 04/04 1800 Hematology CBC w Diff Cancelled WBC Cancelled RBC Cancelled Hgb Cancelled Hct Cancelled MCV Cancelled MCH Cancelled RDW Cancelled Plt Count Cancelled MPV Cancelled PUBS MCHC Cancelled Cultures of blood from 24 so far are negative. Assessment * Chills and rigors likely sepsis staph coag negative- patient has been afebrile * Elevated troponin presumably from chronic kidney disease; CAD * Diabetes * End-stage renal disease on hemodialysis * Recent acute gastritis likely viral * Acute and chronic anemia * Transaminitis * Hyponatremia * Thrombocytopenia Plan * Continue vancomycin with dialysis * Continue other medications * Continue dialysis 3 times per week * Continue to monitor for fever * Follow blood culture report from April 02 * Check TFTs
--- NOTE | 2017-04-05 17:24 | NUR ---
PT VOMITED 225ML OF LIGHT BROWN EMESIS. HE STATED THIS IS THE SECOND TIME SINCE HE HAS BEEN HERE. IV COMPAZINE GIVEN. DR.ARCHANA BUTLER WAS UPDATED. ALSO PER , NO NEED TO RE-CHECK CBC TODAY. WILL RE-EVAL POST TRANSFUSION H+H TOMORROW WITH LABS
[2017-04-05 23:01] VITALS: BP 118/58
[2017-04-06 06:58] VITALS: BP 122/70
[2017-04-06 08:02] LABS: ABSOLUTE BASOPHIL COUNT 0 /CUMM (0.0-0.2); ABSOLUTE EOSINOPHIL COUNT 0 /CUMM (0.0-0.7); ABSOLUTE GRANULOCYTE CT 4.5 /CUMM (1.4-6.5); ABSOLUTE LYMPH COUNT 0.8 /CUMM (1.2-3.4); ABSOLUTE MONOCYTE COUNT 0.5 /CUMM (0.10-0.60); BASOPHIL % 0.3 % (0.0-2.0); EOSINOPHIL % 0 % (0-5); GRANULOCYTE % 76.2 % (42.2-75.2); MEAN CORPUSCULAR HGB 26.5 PG (27.0-31.0); MEAN CORPUSCULAR HGB CONC 32.7 G/DL (33.0-37.0); MEAN CORPUSCULAR VOLUME 81.2 FL (80.0-94.0); MEAN PLATELET VOLUME 10.6 FL (7.4-10.4); PLATELET COUNT 121 /CUMM (130-400); RBC DISTRIBUTION WIDTH 16.3 % (11.5-14.5); WHITE BLOOD CELL COUNT 5.9 /CUMM (4.8-10.8)
[2017-04-06 08:18] LABS: HEMATOCRIT 26.9 % (42-52); RED BLOOD CELL CT 3.31 /CUMM (4.70-6.10)
--- NOTE | 2017-04-06 08:26 | PN- Att Addend ---
Attending Addendum Attending Brief Note Patient seen and examined. Plan of care discussed with the medical team and the patient. Available lab work and radiology test reports were reviewed. His feeling cold and reports intermittent chills but overall feels better. Denies any fever or chest pain or difficulty breathing. Overall he appears comfortable. His last episode of chills was yesterday afternoon. Patient states that his chills usually appear in the early afternoon. Today he denies any pain. He reports offered clear sputum which is apparently chronic. Vital Signs Date Time Temp Pulse Resp B/P B/P Pulse O2 O2 Flow FiO2 Mean Ox Delivery Rate 04/06 0658 98.0 67 20 122/70 99 Room Air 04/05 2301 99.2 67 16 118/58 97 Room Air 04/05 1919 97 Room Air Room Air 04/05 1422 Room Air 04/05 1339 62 130/82 04/05 1338 62 130/82 04/05 1338 62 130/82 04/05 1337 62 130/82 04/05 1332 97.8 62 20 130/82 99 Room Air Intake & Output 04/06 1600 04/06 0800 04/06 0000 Intake Total 580 Output Total 375 Balance 205 Intake, Oral 580 Output, 225 Emesis Output, Urine 150 Patient 208 lb Weight Weight Chair scale Measurement Method Exam: General: Patient awake alert oriented without any distress CVS: S1 plus S2 without any murmur or gallops Chest: Few scattered crepitation without any wheeze. There is no respiratory distress. Dialysis catheter intact Abdomen: Soft nontender, bowel sound present, no guarding or rebound BENDER HAND: Awake alert oriented without any focal neuro deficit and follows command appropriately Extremities: No edema; no clubbing or cyanosis noted Laboratory Tests 04/06 04/05 0720 0842 Chemistry Sodium (137 - 145 mmol/L) 133 L Potassium (3.5 - 5.1 mmol/L) 4.1 Chloride (98 - 107 mmol/L) 98 Carbon Dioxide (22 - 30 mmol/L) 23 Anion Gap (5 - 16) 12 BUN (9 - 20 mg/dL) 28 H Creatinine (0.7 - 1.2 mg/dL) 3.4 H Estimated GFR (>60 ml/min) 18 L BUN/Creatinine Ratio (7 - 25 %) 8.2 Hematology CBC w Diff NO MAN DIFF REQ Cancelled WBC (4.8 - 10.8 /CUMM) 5.9 Cancelled RBC (4.70 - 6.10 /CUMM) 3.31 L Cancelled Hgb (14.0 - 18.0 G/DL) 8.8 L Cancelled Hct (42 - 52 %) 26.9 L Cancelled MCV (80.0 - 94.0 FL) 81.2 Cancelled MCH (27.0 - 31.0 PG) 26.5 L Cancelled RDW (11.5 - 14.5 %) 16.3 H Cancelled Plt Count (130 - 400 /CUMM) 121 L Cancelled MPV (7.4 - 10.4 FL) 10.6 H Cancelled Gran % (42.2 - 75.2 %) 76.2 H Lymphocytes % (20.5 - 51.1 %) 14.3 L Monocytes % (1.7 - 9.3 %) 9.2 Eosinophils % (0 - 5 %) 0 Basophils % (0.0 - 2.0 %) 0.3 Absolute Granulocytes (1.4 - 6.5 /CUMM) 4.5 Absolute Lymphocytes (1.2 - 3.4 /CUMM) 0.8 L Absolute Monocytes (0.10 - 0.60 /CUMM) 0.5 Absolute Eosinophils (0.0 - 0.7 /CUMM) 0 Absolute Basophils (0.0 - 0.2 /CUMM) 0 PUBS MCHC (33.0 - 37.0 G/DL) 32.7 L Cancelled Assessment * Chills and rigors likely sepsis staph coag negative- patient has been afebrile * Elevated troponin presumably from chronic kidney disease; CAD * Diabetes * End-stage renal disease on hemodialysis * Recent acute gastritis likely viral * Acute and chronic anemia * Transaminitis * Hyponatremia * Thrombocytopenia Plan * Continue vancomycin with dialysis * Continue other medications * Continue dialysis 3 times per week * Continue to monitor for fever; given the patient had staph coag negative in blood at 2 different times it appears the patient likely has underlying source of infection. Potential possibilities include dialysis catheter, endocarditis or osteomyelitis. Patient echocardiogram on March 31 had not shown any clear vegetations. I will recommend further workup such as LILIANE and bone scan if patient continues to have chills. * If patient has further fever chills I would draw 2 peripheral cultures and one from the dialysis catheter. * Follow blood culture report from April 02
--- NOTE | 2017-04-06 10:04 | PN- Nephrology ---
Assessment/Plan Assessment: 1. End-stage renal disease. Next Hemodialysis will be tomorrow. 2. Positive blood cultures. He has 2-blood cultures that were positive for staph epi on 2 separate days. The major concern here is whether or not his catheter is infected. The blood cultures sent with dialysis on April 02 remain negative or no growth. It may be that the catheter will need to be removed. My fear is is that will be done and he will still have the rigors. 3. Anemia. He is being transfused. Will likely need increase his Epogen. Suggestion: 1. Antibiotics as per Dr. Larios 2. Next hemodialysis will be on 3. Will increase Epogen with next visit Subjective Subjective: He is going to attempt to walk today. He still is having episodes of rigors. He finds them quite debilitating. Objective Vital Signs and I&Os Vital Signs Date Time Temp Pulse Resp B/P B/P Pulse O2 O2 Flow FiO2 Mean Ox Delivery Rate 04/06 0932 124/74 04/06 0931 124/74 04/06 0931 124/74 04/06 0931 124/74 04/06 0835 99 Room Air 04/06 0658 98.0 67 20 122/70 99 Room Air 04/05 2301 99.2 67 16 118/58 97 Room Air 04/05 1919 97 Room Air Room Air 04/05 1422 Room Air 04/05 1339 62 130/82 04/05 1338 62 130/82 04/05 1338 62 130/82 04/05 1337 62 130/82 04/05 1332 97.8 62 20 130/82 99 Room Air Intake & Output 04/06 1600 04/06 0400 04/05 1600 04/05 0400 04/04 1600 04/04 0400 Intake Total 691 437 6949 600 650 480 Output Total 375 2500 350 Balance 600 205 -1030 600 300 480 Intake, Blood 700 Product Intake, IV 250 0 Intake, Oral 600 580 520 600 650 480 Number 0 Bowel Movements Output, 2500 Dialysate Output, 225 Emesis Output, Urine 150 350 Patient 208 lb 207 lb 213 lb Weight Weight Chair scale Chair scale Chair scale Measurement Method Physical Exam: General Appearance: well developed/nourished, no apparent distress, alert, awake Head: atraumatic, normal appearance Ears, Nose, Throat: normal pharynx, normal ENT inspection, hearing grossly normal Neck: normal inspection, supple, full range of motion, Bao catheter in right IJ Abdomen: normal bowel sounds, soft, non-tender Extremities: normal inspection, normal capillary refill, normal range of motion Neurologic/Psychiatric: no motor/sensory deficits, awake, alert, oriented x 3, normal mood/affect. Skin: intact, normal color Lymphatic: no lymphadenopathy Results Pertinent Lab Results: Laboratory Tests 04/06 04/05 04/05 0720 0842 0815 Chemistry Sodium (137 - 145 mmol/L) 133 L 129 L Potassium (3.5 - 5.1 mmol/L) 4.1 3.8 Chloride (98 - 107 mmol/L) 98 94 L Carbon Dioxide (22 - 30 mmol/L) 23 24 Anion Gap (5 - 16) 12 12 BUN (9 - 20 mg/dL) 28 H 45 H Creatinine (0.7 - 1.2 mg/dL) 3.4 H 4.7 H Estimated GFR (>60 ml/min) 18 L 13 L BUN/Creatinine Ratio (7 - 25 %) 8.2 9.6 Calcium (8.4 - 10.2 mg/dL) 7.6 L Iron (49 - 181 ug/dL) 60 TIBC (261 - 462 ug/dL) 277 Ferritin (17.9 - 464 ng/mL) 485.0 H Total Bilirubin (0.2 - 1.3 mg/dL) 1.3 Direct Bilirubin (< 0.4 mg/dL) 0.7 H AST (17 - 59 U/L) 99 H ALT (21 - 72 U/L) 114 H Alkaline Phosphatase (< 127 U/L) 91 Total Protein (6.3 - 8.2 g/dL) 5.7 L Albumin (3.5 - 5.0 g/dL) 3.3 L Vitamin B12 (239 - 931 pg/mL) 920 Folate (2.76 - 20.0 ng/mL) 18.0 TSH (0.270 - 4.200 uIU/mL) 1.020 Free T4 (0.78 - 2.44 ng/dL) 1.95 Thyroxine (T4) (4.5 - 10.9 ug/dL) 5.9 Hematology CBC w Diff NO MAN DIFF REQ Cancelled WBC (4.8 - 10.8 /CUMM) 5.9 Cancelled RBC (4.70 - 6.10 /CUMM) 3.31 L Cancelled Hgb (14.0 - 18.0 G/DL) 8.8 L Cancelled Hct (42 - 52 %) 26.9 L Cancelled MCV (80.0 - 94.0 FL) 81.2 Cancelled MCH (27.0 - 31.0 PG) 26.5 L Cancelled RDW (11.5 - 14.5 %) 16.3 H Cancelled Plt Count (130 - 400 /CUMM) 121 L Cancelled MPV (7.4 - 10.4 FL) 10.6 H Cancelled Gran % (42.2 - 75.2 %) 76.2 H Lymphocytes % (20.5 - 51.1 %) 14.3 L Monocytes % (1.7 - 9.3 %) 9.2 Eosinophils % (0 - 5 %) 0 Basophils % (0.0 - 2.0 %) 0.3 Absolute Granulocytes (1.4 - 6.5 /CUMM) 4.5 Absolute Lymphocytes (1.2 - 3.4 /CUMM) 0.8 L Absolute Monocytes (0.10 - 0.60 /CUMM) 0.5 Absolute Eosinophils (0.0 - 0.7 /CUMM) 0 Absolute Basophils (0.0 - 0.2 /CUMM) 0 PUBS MCHC (33.0 - 37.0 G/DL) 32.7 L Cancelled Toxicology Random Vancomycin (ug/ml) 10.5 /27 04/04 0600 1800 Hematology CBC w Diff NO MAN DIFF REQ Cancelled WBC (4.8 - 10.8 /CUMM) 5.4 Cancelled RBC (4.70 - 6.10 /CUMM) 2.64 L Cancelled Hgb (14.0 - 18.0 G/DL) 6.9 *L Cancelled Hct (42 - 52 %) 20.9 L Cancelled MCV (80.0 - 94.0 FL) 79.2 L Cancelled MCH (27.0 - 31.0 PG) 26.3 L Cancelled RDW (11.5 - 14.5 %) 16.3 H Cancelled Plt Count (130 - 400 /CUMM) 125 L Cancelled MPV (7.4 - 10.4 FL) 10.9 H Cancelled Gran % (42.2 - 75.2 %) 73.0 Lymphocytes % (20.5 - 51.1 %) 14.8 L Monocytes % (1.7 - 9.3 %) 9.9 H Eosinophils % (0 - 5 %) 2.0 Basophils % (0.0 - 2.0 %) 0.3 Absolute Granulocytes (1.4 - 6.5 /CUMM) 4.0 Absolute Lymphocytes (1.2 - 3.4 /CUMM) 0.8 L Absolute Monocytes (0.10 - 0.60 /CUMM) 0.5 Absolute Eosinophils (0.0 - 0.7 /CUMM) 0.1 Absolute Basophils (0.0 - 0.2 /CUMM) 0 PUBS MCHC (33.0 - 37.0 G/DL) 33.2 Cancelled Toxicology Random Vancomycin Cancelled 04/04 04/03 0658 1150 Chemistry Sodium (137 - 145 mmol/L) 131 L 131 L Potassium (3.5 - 5.1 mmol/L) 3.8 3.9 Chloride (98 - 107 mmol/L) 94 L 95 L Carbon Dioxide (22 - 30 mmol/L) 26 26 Anion Gap (5 - 16) 11 11 BUN (9 - 20 mg/dL) 32 H 24 H Creatinine (0.7 - 1.2 mg/dL) 4.0 H 3.3 H Estimated GFR (>60 ml/min) 15 L 19 L BUN/Creatinine Ratio (7 - 25 %) 8.0 7.3 Hematology CBC w Diff NO MAN DIFF REQ WBC (4.8 - 10.8 /CUMM) 4.3 L RBC (4.70 - 6.10 /CUMM) 2.82 L Hgb (14.0 - 18.0 G/DL) 7.4 *L Hct (42 - 52 %) 22.7 L MCV (80.0 - 94.0 FL) 80.6 MCH (27.0 - 31.0 PG) 26.3 L RDW (11.5 - 14.5 %) 16.4 H Plt Count (130 - 400 /CUMM) 115 L MPV (7.4 - 10.4 FL) 10.3 Gran % (42.2 - 75.2 %) 67.7 Lymphocytes % (20.5 - 51.1 %) 20.5 Monocytes % (1.7 - 9.3 %) 9.3 Eosinophils % (0 - 5 %) 2.0 Basophils % (0.0 - 2.0 %) 0.5 Absolute Granulocytes (1.4 - 6.5 /CUMM) 2.9 Absolute Lymphocytes (1.2 - 3.4 /CUMM) 0.9 L Absolute Monocytes (0.10 - 0.60 /CUMM) 0.4 Absolute Eosinophils (0.0 - 0.7 /CUMM) 0.1 Absolute Basophils (0.0 - 0.2 /CUMM) 0 PUBS MCHC (33.0 - 37.0 G/DL) 32.6 L Toxicology Random Vancomycin (ug/ml) 11.9 13.8
--- NOTE | 2017-04-06 12:01 | PN- Housestaff ---
Subjective Follow-up For: Staph coagulase bacteremia Elevated troponins Chronic kidney disease rigors/chills Subjective: The patient vomited during dialysis yesterday. He also had a 45 minutes of chills and rigors yesterday. This morning patient cough has improved. He denies any chest pain or discomfort. His concern about his chills and rigors and wants to know the reason behind it. Review of Systems Constitutional: Reports: see HPI. Objective Last 24 Hrs of Vital Signs/I&O Vital Signs Date Time Temp Pulse Resp B/P B/P Pulse O2 O2 Flow FiO2 Mean Ox Delivery Rate 04/06 0932 124/74 04/06 0931 124/74 04/06 0931 124/74 04/06 0931 124/74 04/06 0835 99 Room Air 04/06 0658 98.0 67 20 122/70 99 Room Air 04/05 2301 99.2 67 16 118/58 97 Room Air 04/05 1919 97 Room Air Room Air 04/05 1422 Room Air 04/05 1339 62 130/82 04/05 1338 62 130/82 04/05 1338 62 130/82 04/05 1337 62 130/82 04/05 1332 97.8 62 20 130/82 99 Room Air Intake & Output 04/06 1600 04/06 0800 04/06 0000 Intake Total 600 580 Output Total 375 Balance 600 205 Intake, Oral 600 580 Output, 225 Emesis Output, Urine 150 Patient 208 lb Weight Weight Chair scale Measurement Method Physical Exam General Appearance: Alert, Oriented X3, Cooperative, No Acute Distress Neck: Supple Cardiovascular: Regular Rate Lungs: Clear to Auscultation Abdomen: Normal Bowel Sounds, Soft, No Tenderness Extremities: No Edema Assessment/Plan Assessment: 67 year old Man with PMH of CAD s/p stents (Oct 2016), COPD, T2DM, neuropathy, MILES noncompliant with CPAP, HFpEF, CKD stage 5 s/p AV fistula (January 2017), multiple admits for chest pain, dyspnea and elevated troponins, initiated on HD (TTS) via [facility] during recent admission for fluid overload (03/15-03/23). 1. Chills and rigors. etiology unclear. Could be due to dialysis catheter. Blood culture March 29 and one set growing staph coagulase negative. WBC count normal. No fever in last 48 hours 2. Elevated troponins. Most likely secondary to chronic kidney disease and poor clearance vs demand ischemia vs NSTEMI. Echocardiogram shows worsening of the apical wall motion abnormality. Ejection fraction approximate 45%. 3. History of end-stage renal disease on dialysis, Tuesday and Tuesday. 4. Bilateral cortical and exophytic renal cysts. stable 5. Acute on Chronic anemia. Status post 2 units of blood transfusion. H&H 8.8/ 26.9 today. patient is on dual antiplatelet therapy 6. Transaminitis PLAN * Monitor vitals closely * repeat blood cultures and line Cultures NTD * On vancomycin per dialysis protocol protocol * Next dialysis on * Incentive spirometry * Repeat blood cultures if any other episode of chills and rigors * Check stool guaiac * ALPS for DVT prophylaxis * Full code Problem List: 1. Infection, dialysis vascular access Pain Ratin Pain Location: none Pain Goal: Pain 4 or less Pain Plan: tylenol Tomorrow's Labs & Rationales: cbc
[2017-04-06 14:47] VITALS: BP 106/68
[2017-04-06 23:23] VITALS: BP 130/78
[2017-04-07 07:53] VITALS: BP 106/62
[2017-04-07 07:58] LABS: ABSOLUTE BASOPHIL COUNT 0 /CUMM (0.0-0.2); ABSOLUTE EOSINOPHIL COUNT 0.1 /CUMM (0.0-0.7); ABSOLUTE GRANULOCYTE CT 2.9 /CUMM (1.4-6.5); ABSOLUTE LYMPH COUNT 1.1 /CUMM (1.2-3.4); ABSOLUTE MONOCYTE COUNT 0.5 /CUMM (0.10-0.60); BASOPHIL % 0.4 % (0.0-2.0); EOSINOPHIL % 1.3 % (0-5); GRANULOCYTE % 62.8 % (42.2-75.2); HEMATOCRIT 27.4 % (42-52); MEAN CORPUSCULAR HGB 26.9 PG (27.0-31.0); MEAN CORPUSCULAR HGB CONC 33.4 G/DL (33.0-37.0); MEAN CORPUSCULAR VOLUME 80.5 FL (80.0-94.0); MEAN PLATELET VOLUME 10.3 FL (7.4-10.4); PLATELET COUNT 129 /CUMM (130-400); RBC DISTRIBUTION WIDTH 16.1 % (11.5-14.5); WHITE BLOOD CELL COUNT 4.7 /CUMM (4.8-10.8)
[2017-04-07 08:38] LABS: ABSOLUTE BASOPHIL COUNT 0 /CUMM (0.0-0.2); ABSOLUTE EOSINOPHIL COUNT 0.1 /CUMM (0.0-0.7); ABSOLUTE GRANULOCYTE CT 2.8 /CUMM (1.4-6.5); ABSOLUTE MONOCYTE COUNT 0.5 /CUMM (0.10-0.60); BASOPHIL % 0.5 % (0.0-2.0); EOSINOPHIL % 3.3 % (0-5); GRANULOCYTE % 63.5 % (42.2-75.2); HEMATOCRIT 25.3 % (42-52); MEAN CORPUSCULAR HGB 26.5 PG (27.0-31.0); MEAN CORPUSCULAR HGB CONC 33.4 G/DL (33.0-37.0); MEAN CORPUSCULAR VOLUME 79.2 FL (80.0-94.0); MEAN PLATELET VOLUME 10.6 FL (7.4-10.4); PLATELET COUNT 122 /CUMM (130-400); RBC DISTRIBUTION WIDTH 16.4 % (11.5-14.5); WHITE BLOOD CELL COUNT 4.4 /CUMM (4.8-10.8)
--- NOTE | 2017-04-07 10:16 | PN- Nephrology ---
Assessment/Plan Assessment: 1. End-stage renal disease. Next Hemodialysis will be Tuesday 2. Positive blood cultures. He remains on therapy for the positive blood cultures. Blood cultures from Tuesday remain no growth. 3. Status post transfusion on Tuesday. Suggestion: 1. Antibiotics as per Dr. Larios 2. Next hemodialysis will be on Tuesday. Vancomycin can be given as an outpatient at the dialysis unit. Subjective Subjective: Patient seen with hemodialysis in progress. He tells me, yesterday was a great day. He did not have any rigors. He feels well. Objective Vital Signs and I&Os Vital Signs Date Time Temp Pulse Resp B/P B/P Pulse O2 O2 Flow FiO2 Mean Ox Delivery Rate 04/07 0753 97.8 57 20 106/62 94 Room Air 04/06 2323 98.0 59 16 130/78 100 Room Air 04/06 2208 60 130/78 04/06 1858 97 Room Air 04/06 1447 97.9 62 20 106/68 99 Room Air Intake & Output 04/07 1600 04/07 0400 04/06 1600 04/06 0400 04/05 1600 04/05 0400 Intake Total 383 77 [id number] 365 6265 600 Output Total 150 395 542 3051 Balance 450 50 800 205 -1030 600 Intake, Blood 700 Product Intake, IV 250 Intake, Oral 611 62 3979 580 520 600 Output, 2500 Dialysate Output, 225 Emesis Output, Urine 150 200 150 Patient 209 lb 208 lb 207 lb Weight Weight Chair scale Chair scale Chair scale Measurement Method Physical Exam: General Appearance: well developed/nourished, no apparent distress, alert, awake Head: atraumatic, normal appearance Ears, Nose, Throat: normal ENT inspection, hearing grossly normal Neck: normal inspection, supple, full range of motion, Bao catheter in right IJ Abdomen: normal bowel sounds, soft, non-tender, no masses, no organomegaly. Extremities: normal inspection, normal capillary refill, normal range of motion Neurologic/Psychiatric: no motor/sensory deficits, awake, alert, oriented x 3, normal mood/affect. Skin: intact, normal color Current Medications: Current Medications Sig/Julissa Start time Last Medication Dose Route Stop Time Status Admin Acetaminophen 650 MG Q6P PRN 03/27 2200 AC 04/02 PO 1657 Acetaminophen 1,000 MG Q8P PRN 03/27 2200 AC IV Albuterol Sulfate 3 ML Q4H PRN 03/28 0930 AC INH Albuterol Sulfate 2 PUF Q4P PRN 03/27 2215 AC INH Alprazolam 0.5 MG BID PRN 04/04 1030 AC 04/06 PO 04/11 1029 2210 Aspirin Buffered 81 MG AT BEDTIME 03/28 2200 AC 04/06 PO 2209 Atorvastatin Calcium 80 MG AT BEDTIME 03/28 2200 AC 04/06 PO 2209 Benzonatate 100 MG TID 04/05 1000 AC 04/06 PO 2210 Budesonide/ 2 PUF BID 03/27 2211 AC 04/06 Formoterol Fumarate INH 2209 Clonidine 0.1 MG BID 03/28 1000 AC 04/06 PO 2208 Clopidogrel Bisulfate 75 MG DAILY 03/28 1000 AC 04/06 PO 0932 Epoetin [place] 8,000 UNIT TuThSa PRN 03/29 1100 AC IV Famotidine 20 MG DAILY 04/03 1000 AC 04/06 PO 0932 Folic Acid 1 MG DAILY 03/28 1000 AC 04/06 PO 0931 Furosemide 80 MG DAILY 03/28 1000 AC 04/06 PO 0931 Insulin Aspart 0 TIDAC 03/28 0800 AC 04/06 SC 1212 Isosorbide 60 MG DAILY 03/28 1000 AC 04/06 Mononitrate PO 0931 Levothyroxine Sodium 0.2 MG DAILY AC 03/28 0700 AC 04/07 PO 0547 Melatonin 5 MG ONCE ONE 04/07 0215 DC 04/07 PO 04/07 0216 0207 Metoprolol Tartrate 100 MG DAILY 03/28 1000 AC 04/06 PO 0932 Polyethylene Glycol 17 GM DAILY 03/28 1353 AC 03/30 PO 1139 Prochlorperazine 10 MG Q6-PRN PRN 03/27 2215 AC 04/05 IV 1714 Ramelteon 8 MG AT BEDTIME 03/28 2200 AC 04/06 PO 2209 Senna/Docusate Sodium 2 TAB AT BEDTIME 03/28 220 AC 04/02 PO 1330 Sertraline HCl 100 MG DAILY 03/28 1000 AC 04/06 PO 0931 Sevelamer Carbonate 1,600 MG WM 03/30 1700 AC 04/06 PO 1640 Simethicone 80 MG Q8 04/02 1402 AC 04/07 PO 0547 Tamsulosin HCl 0.4 MG DAILY 03/28 1000 AC 04/06 PO 0931 Trazodone HCl 150 MG QPM 03/28 2200 AC 04/06 PO 2208 Trimethobenzamide HCl 200 MG 4 TIMES/DAY PRN 03/31 1730 AC 04/01 IM 2056 Vancomycin HCl 1,000 MG ONCE ONE 04/07 1200 AC Sodium Chloride 250 ML IV 04/07 1259 Vancomycin HCl See Dose TuThSa PRN 04/04 0930 AC Insts (1) IV Dose Instructions: (1)Vancomycin HCl: DOSE BASED ON RANDOM VANCO LEVELS Results Pertinent Lab Results: Laboratory Tests 04/07 04/07 0752 0645 Chemistry Sodium (137 - 145 mmol/L) 131 L Potassium (3.5 - 5.1 mmol/L) 3.6 Chloride (98 - 107 mmol/L) 95 L Carbon Dioxide (22 - 30 mmol/L) 25 Anion Gap (5 - 16) 11 BUN (9 - 20 mg/dL) 40 H Creatinine (0.7 - 1.2 mg/dL) 4.1 H Estimated GFR (>60 ml/min) 15 L BUN/Creatinine Ratio (7 - 25 %) 9.8 Calcium (8.4 - 10.2 mg/dL) 7.1 L Phosphorus (2.5 - 4.5 mg/dL) 2.9 Magnesium (1.6 - 2.3 mg/dL) 2.1 Albumin (3.5 - 5.0 g/dL) 3.2 L Hematology CBC w Diff NO MAN DIFF REQ NO MAN DIFF REQ WBC (4.8 - 10.8 /CUMM) 4.4 L 4.7 L RBC (4.70 - 6.10 /CUMM) 3.20 L 3.40 L Hgb (14.0 - 18.0 G/DL) 8.5 L 9.1 L Hct (42 - 52 %) 25.3 L 27.4 L MCV (80.0 - 94.0 FL) 79.2 L 80.5 MCH (27.0 - 31.0 PG) 26.5 L 26.9 L RDW (11.5 - 14.5 %) 16.4 H 16.1 H Plt Count (130 - 400 /CUMM) 122 L 129 L MPV (7.4 - 10.4 FL) 10.6 H 10.3 Gran % (42.2 - 75.2 %) 63.5 62.8 Lymphocytes % (20.5 - 51.1 %) 22.1 24.2 Monocytes % (1.7 - 9.3 %) 10.6 H 11.3 H Eosinophils % (0 - 5 %) 3.3 1.3 Basophils % (0.0 - 2.0 %) 0.5 0.4 Absolute Granulocytes (1.4 - 6.5 /CUMM) 2.8 2.9 Absolute Lymphocytes (1.2 - 3.4 /CUMM) 1.0 L 1.1 L Absolute Monocytes (0.10 - 0.60 /CUMM) 0.5 0.5 Absolute Eosinophils (0.0 - 0.7 /CUMM) 0.1 0.1 Absolute Basophils (0.0 - 0.2 /CUMM) 0 0 PUBS MCHC (33.0 - 37.0 G/DL) 33.4 33.4 Toxicology Random Vancomycin (ug/ml) 8.7 04/06 04/05 04/05 0720 0842 0815 Chemistry Sodium (137 - 145 mmol/L) 133 L 129 L Potassium (3.5 - 5.1 mmol/L) 4.1 3.8 Chloride (98 - 107 mmol/L) 98 94 L Carbon Dioxide (22 - 30 mmol/L) 23 24 Anion Gap (5 - 16) 12 12 BUN (9 - 20 mg/dL) 28 H 45 H Creatinine (0.7 - 1.2 mg/dL) 3.4 H 4.7 H Estimated GFR (>60 ml/min) 18 L 13 L BUN/Creatinine Ratio (7 - 25 %) 8.2 9.6 Calcium (8.4 - 10.2 mg/dL) 7.6 L Iron (49 - 181 ug/dL) 60 TIBC (261 - 462 ug/dL) 277 Ferritin (17.9 - 464 ng/mL) 485.0 H Total Bilirubin (0.2 - 1.3 mg/dL) 1.3 Direct Bilirubin (< 0.4 mg/dL) 0.7 H AST (17 - 59 U/L) 99 H ALT (21 - 72 U/L) 114 H Alkaline Phosphatase (< 127 U/L) 91 Total Protein (6.3 - 8.2 g/dL) 5.7 L Albumin (3.5 - 5.0 g/dL) 3.3 L Vitamin B12 (239 - 931 pg/mL) 920 Folate (2.76 - 20.0 ng/mL) 18.0 TSH (0.270 - 4.200 uIU/mL) 1.020 Free T4 (0.78 - 2.44 ng/dL) 1.95 Thyroxine (T4) (4.5 - 10.9 ug/dL) 5.9 Hematology CBC w Diff NO MAN DIFF REQ Cancelled WBC (4.8 - 10.8 /CUMM) 5.9 Cancelled RBC (4.70 - 6.10 /CUMM) 3.31 L Cancelled Hgb (14.0 - 18.0 G/DL) 8.8 L Cancelled Hct (42 - 52 %) 26.9 L Cancelled MCV (80.0 - 94.0 FL) 81.2 Cancelled MCH (27.0 - 31.0 PG) 26.5 L Cancelled RDW (11.5 - 14.5 %) 16.3 H Cancelled Plt Count (130 - 400 /CUMM) 121 L Cancelled MPV (7.4 - 10.4 FL) 10.6 H Cancelled Gran % (42.2 - 75.2 %) 76.2 H Lymphocytes % (20.5 - 51.1 %) 14.3 L Monocytes % (1.7 - 9.3 %) 9.2 Eosinophils % (0 - 5 %) 0 Basophils % (0.0 - 2.0 %) 0.3 Absolute Granulocytes (1.4 - 6.5 /CUMM) 4.5 Absolute Lymphocytes (1.2 - 3.4 /CUMM) 0.8 L Absolute Monocytes (0.10 - 0.60 /CUMM) 0.5 Absolute Eosinophils (0.0 - 0.7 /CUMM) 0 Absolute Basophils (0.0 - 0.2 /CUMM) 0 PUBS MCHC (33.0 - 37.0 G/DL) 32.7 L Cancelled Toxicology Random Vancomycin (ug/ml) 10.5 04/05 04/04 0600 1800 Hematology CBC w Diff NO MAN DIFF REQ Cancelled WBC (4.8 - 10.8 /CUMM) 5.4 Cancelled RBC (4.70 - 6.10 /CUMM) 2.64 L Cancelled Hgb (14.0 - 18.0 G/DL) 6.9 *L Cancelled Hct (42 - 52 %) 20.9 L Cancelled MCV (80.0 - 94.0 FL) 79.2 L Cancelled MCH (27.0 - 31.0 PG) 26.3 L Cancelled RDW (11.5 - 14.5 %) 16.3 H Cancelled Plt Count (130 - 400 /CUMM) 125 L Cancelled MPV (7.4 - 10.4 FL) 10.9 H Cancelled Gran % (42.2 - 75.2 %) 73.0 Lymphocytes % (20.5 - 51.1 %) 14.8 L Monocytes % (1.7 - 9.3 %) 9.9 H Eosinophils % (0 - 5 %) 2.0 Basophils % (0.0 - 2.0 %) 0.3 Absolute Granulocytes (1.4 - 6.5 /CUMM) 4.0 Absolute Lymphocytes (1.2 - 3.4 /CUMM) 0.8 L Absolute Monocytes (0.10 - 0.60 /CUMM) 0.5 Absolute Eosinophils (0.0 - 0.7 /CUMM) 0.1 Absolute Basophils (0.0 - 0.2 /CUMM) 0 PUBS MCHC (33.0 - 37.0 G/DL) 33.2 Cancelled Toxicology Random Vancomycin Cancelled
--- NOTE | 2017-04-07 11:11 | PN- Att Addend ---
Attending Addendum Attending Brief Note Patient seen and examined. Plan of care discussed with the medical team and the patient. Available lab work and radiology test reports were reviewed. He does not report any further chills yesterday. Patient seen during hemodialysis. Overall he appears comfortable and denies any fever or chest pain or difficulty breathing. Overall he appears comfortable. His last episode of chills was 2 days ago. Patient states that his chills usually appear in the early afternoon. Today he denies any pain. He reports mild cough with clear sputum which is apparently chronic. Vital Signs Date Time Temp Pulse Resp B/P B/P Pulse O2 O2 Flow FiO2 Mean Ox Delivery Rate 04/07 0753 97.8 57 20 106/62 94 Room Air 04/06 2323 98.0 59 16 130/78 100 Room Air 04/06 2208 60 130/78 04/06 1858 97 Room Air 04/06 1447 97.9 62 20 106/68 99 Room Air Intake & Output 04/07 1600 04/07 0800 04/07 0000 Intake Total 600 50 Output Total 150 Balance 450 50 Intake, Oral 600 50 Output, Urine 150 Patient 209 lb Weight Weight Chair scale Measurement Method Exam: General: Patient awake alert oriented without any distress CVS: S1 plus S2 without any murmur or gallops Chest: Few scattered crepitation without any wheeze. There is no respiratory distress. Dialysis catheter intact Abdomen: Soft nontender, bowel sound present, no guarding or rebound INSURANCE CLAIM APPROVER: Awake alert oriented without any focal neuro deficit and follows command appropriately Extremities: No edema; no clubbing or cyanosis noted Laboratory Tests 04/07 04/07 0752 0645 Chemistry Sodium (137 - 145 mmol/L) 131 L Potassium (3.5 - 5.1 mmol/L) 3.6 Chloride (98 - 107 mmol/L) 95 L Carbon Dioxide (22 - 30 mmol/L) 25 Anion Gap (5 - 16) 11 BUN (9 - 20 mg/dL) 40 H Creatinine (0.7 - 1.2 mg/dL) 4.1 H Estimated GFR (>60 ml/min) 15 L BUN/Creatinine Ratio (7 - 25 %) 9.8 Calcium (8.4 - 10.2 mg/dL) 7.1 L Phosphorus (2.5 - 4.5 mg/dL) 2.9 Magnesium (1.6 - 2.3 mg/dL) 2.1 Albumin (3.5 - 5.0 g/dL) 3.2 L Hematology CBC w Diff NO MAN DIFF REQ NO MAN DIFF REQ WBC (4.8 - 10.8 /CUMM) 4.4 L 4.7 L RBC (4.70 - 6.10 /CUMM) 3.20 L 3.40 L Hgb (14.0 - 18.0 G/DL) 8.5 L 9.1 L Hct (42 - 52 %) 25.3 L 27.4 L MCV (80.0 - 94.0 FL) 79.2 L 80.5 MCH (27.0 - 31.0 PG) 26.5 L 26.9 L RDW (11.5 - 14.5 %) 16.4 H 16.1 H Plt Count (130 - 400 /CUMM) 122 L 129 L MPV (7.4 - 10.4 FL) 10.6 H 10.3 Gran % (42.2 - 75.2 %) 63.5 62.8 Lymphocytes % (20.5 - 51.1 %) 22.1 24.2 Monocytes % (1.7 - 9.3 %) 10.6 H 11.3 H Eosinophils % (0 - 5 %) 3.3 1.3 Basophils % (0.0 - 2.0 %) 0.5 0.4 Absolute Granulocytes (1.4 - 6.5 /CUMM) 2.8 2.9 Absolute Lymphocytes (1.2 - 3.4 /CUMM) 1.0 L 1.1 L Absolute Monocytes (0.10 - 0.60 /CUMM) 0.5 0.5 Absolute Eosinophils (0.0 - 0.7 /CUMM) 0.1 0.1 Absolute Basophils (0.0 - 0.2 /CUMM) 0 0 PUBS MCHC (33.0 - 37.0 G/DL) 33.4 33.4 Toxicology Random Vancomycin (ug/ml) 8.7 Microbiology Date/Time Procedure - Status Source Growth 04/07 0203 Clostridium difficile Toxin A & B - COLB STOOL Assessment * Chills and rigors likely sepsis staph coag negative- patient has been afebrile ; it appears his chills have stopped * Elevated troponin presumably from chronic kidney disease; CAD * Diabetes * End-stage renal disease on hemodialysis * Recent acute gastritis likely viral * Acute and chronic anemia * Transaminitis * Hyponatremia * Thrombocytopenia Plan * Continue vancomycin with dialysis- patient likely will need at least 2 weeks of IV vancomycin with dialysis. * Follow random vancomycin level results * Continue other medications * Continue dialysis 3 times per week * Continue to monitor for fever; given the patient had staph coag negative in blood at 2 different times it appears the patient likely has underlying source of infection. Potential possibilities include dialysis catheter, endocarditis or osteomyelitis. Patient echocardiogram on March 31 had not shown any clear vegetations. I will recommend further workup such as LILIANE and bone scan if patient continues to have chills. * If patient has further fever chills I would draw 2 peripheral cultures and one from the dialysis catheter.
--- NOTE | 2017-04-07 13:45 | PN- Housestaff ---
Subjective Follow-up For: Staph coagulase bacteremia Elevated troponins Chronic kidney disease rigors/chills Subjective: Patient is getting dialysis this morning. He denies having any further episode of chills or rigors yesterday. He feels better. He had one episode of watery bowel movement yesterday. Review of Systems Constitutional: Reports: see HPI. Objective Last 24 Hrs of Vital Signs/I&O Vital Signs Date Time Temp Pulse Resp B/P B/P Pulse O2 O2 Flow FiO2 Mean Ox Delivery Rate 04/07 1219 128/72 04/07 1219 128/72 04/07 1218 128/72 04/07 1218 128/72 04/07 0753 97.8 57 20 106/62 94 Room Air 04/06 2323 98.0 59 16 130/78 100 Room Air 04/06 2208 60 130/78 04/06 1858 97 Room Air 04/06 1447 97.9 62 20 106/68 99 Room Air Intake & Output 04/07 1600 04/07 0800 04/07 0000 Intake Total 600 50 Output Total 150 Balance 450 50 Intake, Oral 600 50 Output, Urine 150 Patient 210 lb 209 lb Weight Weight Chair scale Chair scale Measurement Method Physical Exam General Appearance: Alert, Oriented X3, Cooperative, No Acute Distress Assessment/Plan Assessment: 67 year old Man with PMH of CAD s/p stents (Oct 2016), COPD, T2DM, neuropathy, MILES noncompliant with CPAP, HFpEF, CKD stage 5 s/p AV fistula (January 2017), multiple admits for chest pain, dyspnea and elevated troponins, initiated on HD (TTS) via [facility] during recent admission for fluid overload (03/15-03/23). 1. Chills and rigors. etiology unclear. Could be due to dialysis catheter. Blood culture March 29 and one set growing staph coagulase negative. WBC count normal. No fever in last 48 hours 2. Elevated troponins. Most likely secondary to chronic kidney disease and poor clearance vs demand ischemia vs NSTEMI. Echocardiogram shows worsening of the apical wall motion abnormality. Ejection fraction approximate 45%. 3. History of end-stage renal disease on dialysis, Tuesday and Tuesday. 4. Bilateral cortical and exophytic renal cysts. stable 5. Acute on Chronic anemia. Status post 2 units of blood transfusion. H&H 8.5/ 25.3 today. patient is on dual antiplatelet therapy 6. Transaminitis PLAN * Monitor vitals closely * On vancomycin per dialysis protocol * Next dialysis on Tuesday * Cont Incentive spirometry * Repeat blood cultures if any other episode of chills and rigors * Follow-up further ID recommendations * Check stool guaiac * ALPS for DVT prophylaxis * Full code Problem List: 1. Infection, dialysis vascular access Pain Ratin Pain Location: none Pain Goal: Pain 4 or less Pain Plan: tylenol Tomorrow's Labs & Rationales: cbc DVT/Prophylaxis: mechanical
--- NOTE | 2017-04-07 15:39 | PN- Infect Dx ---
Subjective Subjective: Afebrile. He has had no further episodes of rigors yesterday or today and feels quite well today. Objective Last 24 Hrs of Vital Signs/I&O Vital Signs Date Time Temp Pulse Resp B/P B/P Pulse O2 O2 Flow FiO2 Mean Ox Delivery Rate 04/07 1520 98.1 04/07 1351 95 Room Air Room Air 04/07 1219 128/72 04/07 1219 128/72 04/07 1218 128/72 04/07 1218 128/72 04/07 0753 97.8 57 20 106/62 94 Room Air 04/06 2323 98.0 59 16 130/78 100 Room Air 04/06 2208 60 130/78 04/06 1858 97 Room Air Intake & Output 04/07 1600 04/07 0800 04/07 0000 Intake Total 600 50 Output Total 150 Balance 450 50 Intake, Oral 600 50 Output, Urine 150 Patient 210 lb 209 lb Weight Weight Chair scale Chair scale Measurement Method Physical Exam Other Physical Findings: He appears comfortable in no acute distress Neck right IJ Bao catheter with no inflammation at the site Lungs are clear Heart regular rhythm with no murmur Extremities no cyanosis, clubbing or edema Results Last 24 Hours of Lab Results: Laboratory Tests 04/07 04/07 04/07 1155 0755 0752 Chemistry Sodium (137 - 145 mmol/L) 131 L Potassium (3.5 - 5.1 mmol/L) 3.6 Chloride (98 - 107 mmol/L) 95 L Carbon Dioxide (22 - 30 mmol/L) 25 Anion Gap (5 - 16) 11 BUN (9 - 20 mg/dL) 11 40 H Creatinine (0.7 - 1.2 mg/dL) 4.1 H Estimated GFR (>60 ml/min) 15 L BUN/Creatinine Ratio (7 - 25 %) 9.8 Calcium (8.4 - 10.2 mg/dL) 7.1 L Phosphorus (2.5 - 4.5 mg/dL) 2.9 Magnesium (1.6 - 2.3 mg/dL) 2.1 Albumin (3.5 - 5.0 g/dL) 3.2 L Hematology CBC w Diff NO MAN DIFF REQ WBC (4.8 - 10.8 /CUMM) 4.4 L RBC (4.70 - 6.10 /CUMM) 3.20 L Hgb (14.0 - 18.0 G/DL) 8.5 L Hct (42 - 52 %) 25.3 L MCV (80.0 - 94.0 FL) 79.2 L MCH (27.0 - 31.0 PG) 26.5 L RDW (11.5 - 14.5 %) 16.4 H Plt Count (130 - 400 /CUMM) 122 L MPV (7.4 - 10.4 FL) 10.6 H Gran % (42.2 - 75.2 %) 63.5 Lymphocytes % (20.5 - 51.1 %) 22.1 Monocytes % (1.7 - 9.3 %) 10.6 H Eosinophils % (0 - 5 %) 3.3 Basophils % (0.0 - 2.0 %) 0.5 Absolute Granulocytes (1.4 - 6.5 /CUMM) 2.8 Absolute Lymphocytes (1.2 - 3.4 /CUMM) 1.0 L Absolute Monocytes (0.10 - 0.60 /CUMM) 0.5 Absolute Eosinophils (0.0 - 0.7 /CUMM) 0.1 Absolute Basophils (0.0 - 0.2 /CUMM) 0 PUBS MCHC (33.0 - 37.0 G/DL) 33.4 Toxicology Random Vancomycin (ug/ml) 5.2 Cancelled 8.7 04/07 0645 Hematology CBC w Diff NO MAN DIFF REQ WBC (4.8 - 10.8 /CUMM) 4.7 L RBC (4.70 - 6.10 /CUMM) 3.40 L Hgb (14.0 - 18.0 G/DL) 9.1 L Hct (42 - 52 %) 27.4 L MCV (80.0 - 94.0 FL) 80.5 MCH (27.0 - 31.0 PG) 26.9 L RDW (11.5 - 14.5 %) 16.1 H Plt Count (130 - 400 /CUMM) 129 L MPV (7.4 - 10.4 FL) 10.3 Gran % (42.2 - 75.2 %) 62.8 Lymphocytes % (20.5 - 51.1 %) 24.2 Monocytes % (1.7 - 9.3 %) 11.3 H Eosinophils % (0 - 5 %) 1.3 Basophils % (0.0 - 2.0 %) 0.4 Absolute Granulocytes (1.4 - 6.5 /CUMM) 2.9 Absolute Lymphocytes (1.2 - 3.4 /CUMM) 1.1 L Absolute Monocytes (0.10 - 0.60 /CUMM) 0.5 Absolute Eosinophils (0.0 - 0.7 /CUMM) 0.1 Absolute Basophils (0.0 - 0.2 /CUMM) 0 PUBS MCHC (33.0 - 37.0 G/DL) 33.4 Last 24 Hours of Angus Results: No recent cultures Assessment/Plan Impression: Stable with no recent rigors, no further documented fevers and with white blood cell count remaining normal on Vancomycin Day 6 of treatment for possible coag- negative Staph line sepsis, though most of his blood cultures, including the most recent ones obtained 5 days ago, remain negative, suggesting that the positive cultures may represent contaminants. Suggestion: 1. Continue Vancomycin per dialysis protocol to plan on a 10-14 day course of treatment
--- NOTE | 2017-04-07 18:59 | NUR ---
NURSING NOTE; PT DEVELOPED RIGORS THIS AFTERNOON AT 1615. BECAME NAUSEOUS WITH VOMITING. AFEBRILE. MEDICATED WITH IV COMPAZINE ORDERED. PT NOTED IT WAS A SHORT EPISODE.
[2017-04-07 22:18] VITALS: BP 122/64
[2017-04-08 07:16] VITALS: BP 128/62
--- NOTE | 2017-04-08 08:17 | PN- Att Addend ---
Attending Addendum Attending Brief Note Patient seen and examined. Plan of care discussed with the medical team and the patient. Available lab work and radiology test reports were reviewed. Patient again had episode of chills for for 45 minutes yesterday at 2 PM. Overall he appears comfortable and denies any fever or chest pain or difficulty breathing. Today he denies any pain. He reports mild cough with clear sputum which is apparently chronic. Vital Signs Date Time Temp Pulse Resp B/P B/P Pulse O2 O2 Flow FiO2 Mean Ox Delivery Rate 04/08 0716 97.6 61 20 128/62 99 Room Air 04/08 0000 96 Nasal 2.0L Cannula 04/07 2222 66 122/64 04/07 2218 98.6 67 20 122/64 99 Nasal 3.0L Cannula 04/07 2048 96 Room Air Room Air 04/07 1520 98.1 04/07 1351 95 Room Air Room Air 04/07 1219 128/72 04/07 1219 128/72 04/07 1218 128/72 04/07 1218 128/72 Intake & Output 04/08 1600 04/08 0800 04/08 0000 Intake Total 200 420 Output Total 100 Balance 200 320 Intake, Oral 200 420 Number 0 Bowel Movements Output, Urine 100 Exam: General: Patient awake alert oriented without any distress CVS: S1 plus S2 without any murmur or gallops Chest: Few scattered crepitation without any wheeze. There is no respiratory distress. Dialysis catheter intact Abdomen: Soft nontender, bowel sound present, no guarding or rebound MANAGER ADMINISTRATION: Awake alert oriented without any focal neuro deficit and follows command appropriately Extremities: No edema; no clubbing or cyanosis noted Laboratory Tests 04/07 1155 Chemistry BUN (9 - 20 mg/dL) 11 Toxicology Random Vancomycin (ug/ml) 5.2 Assessment * Chills and rigors likely sepsis staph coag negative- patient has been afebrile despite intermittent chills * Elevated troponin presumably from chronic kidney disease; CAD * Diabetes * End-stage renal disease on hemodialysis * Recent acute gastritis likely viral * Acute and chronic anemia * Transaminitis * Hyponatremia * Thrombocytopenia Plan * Continue vancomycin with dialysis- patient likely will need at least 2 weeks of IV. We will check with Dr. Larios to see if Vanco dose needs to be adjusted given his random Vanco level is low. * Ambulate patient with a cane * possible discharge home if no further workup is recommended by ID * Continue to monitor for fever; given the patient had staph coag negative in blood at 2 different times it appears the patient likely has underlying source of infection. Potential possibilities include dialysis catheter, endocarditis or osteomyelitis. Patient echocardiogram on March 31 had not shown any clear vegetations. I will recommend further workup such as LILIANE and bone scan if patient continues to have chills. * If patient has further fever chills I would draw 2 peripheral cultures and one from the dialysis catheter.
--- NOTE | 2017-04-08 08:31 | PN- Housestaff ---
Subjective Follow-up For: Staph coagulase bacteremia Elevated troponins Chronic kidney disease rigors/chills Subjective: This morning patient is feeling better. He again had a 20 minute episode of chills and rigors yesterday. Now he relates these episodes to cold but still anxious to go home. Review of Systems Constitutional: Reports: see HPI. Objective Last 24 Hrs of Vital Signs/I&O Vital Signs Date Time Temp Pulse Resp B/P B/P Pulse O2 O2 Flow FiO2 Mean Ox Delivery Rate 04/08 0716 97.6 61 20 128/62 99 Room Air 04/08 0000 96 Nasal 2.0L Cannula 04/07 2222 66 122/64 04/07 2218 98.6 67 20 122/64 99 Nasal 3.0L Cannula 04/07 2048 96 Room Air Room Air 04/07 1520 98.1 04/07 1351 95 Room Air Room Air 04/07 1219 128/72 04/07 1219 128/72 04/07 1218 128/72 04/07 1218 128/72 Intake & Output 04/08 1600 04/08 0800 04/08 0000 Intake Total 200 420 Output Total 100 Balance 200 320 Intake, Oral 200 420 Number 0 Bowel Movements Output, Urine 100 Physical Exam General Appearance: Alert, Oriented X3, Cooperative, No Acute Distress Neck: Supple Cardiovascular: Regular Rate Lungs: Clear to Auscultation Abdomen: Normal Bowel Sounds, Soft, No Tenderness Extremities: No Edema Assessment/Plan Assessment: 67 year old Man with PMH of CAD s/p stents (Oct 2016), COPD, T2DM, neuropathy, MILES noncompliant with CPAP, HFpEF, CKD stage 5 s/p AV fistula (January 2017), multiple admits for chest pain, dyspnea and elevated troponins, initiated on HD (TTS) via [facility] during recent admission for fluid overload (03/15-03/23). 1. Chills and rigors. etiology unclear. Could be due to dialysis catheter. Blood culture March 29 and one set growing staph coagulase negative. WBC count normal. No fever in last 48 hours 2. Elevated troponins. Most likely secondary to chronic kidney disease and poor clearance vs demand ischemia vs NSTEMI. Echocardiogram shows worsening of the apical wall motion abnormality. Ejection fraction approximate 45%. 3. History of end-stage renal disease on dialysis, Tuesday and Tuesday. 4. Bilateral cortical and exophytic renal cysts. stable 5. Acute on Chronic anemia. Status post 2 units of blood transfusion. stable 6. Transaminitis PLAN * Monitor vitals closely * On vancomycin per dialysis protocol. Plan is for total of 10-14 days antibiotics * Next dialysis on Tuesday * Cont Incentive spirometry * ALPS for DVT prophylaxis * Full code Problem List: 1. Septicemia Pain Ratin Pain Location: none Pain Goal: Remain pain free Pain Plan: tylenol Tomorrow's Labs & Rationales: cbc DVT/Prophylaxis: mechanical
--- NOTE | 2017-04-08 10:40 | PN- Infect Dx ---
Subjective Subjective: Afebrile. He reports an episode of rigors yesterday lasting approximately 35 minutes and an episode of nausea with vomiting. Objective Last 24 Hrs of Vital Signs/I&O Vital Signs Date Time Temp Pulse Resp B/P B/P Pulse O2 O2 Flow FiO2 Mean Ox Delivery Rate 04/08 0908 128/62 04/08 0908 128/62 04/08 0907 128/62 04/08 0907 128/62 04/08 0716 97.6 61 20 128/62 99 Room Air 04/08 0000 96 Nasal 2.0L Cannula 04/07 2222 66 122/64 04/07 2218 98.6 67 20 122/64 99 Nasal 3.0L Cannula 04/07 2048 96 Room Air Room Air 04/07 1520 98.1 04/07 1351 95 Room Air Room Air 04/07 1219 128/72 04/07 1219 128/72 04/07 1218 128/72 04/07 1218 128/72 Intake & Output 04/08 1600 04/08 0800 04/08 0000 Intake Total 200 420 Output Total 100 Balance 200 320 Intake, Oral 200 420 Number 0 Bowel Movements Output, Urine 100 Patient 212 lb Weight Weight Chair scale Measurement Method Physical Exam Other Physical Findings: He appears comfortable in no acute distress Neck right IJ Bao catheter with no inflammation at the site Lungs are clear Heart regular rhythm with no murmur Abdomen soft, nontender with positive bowel sounds Extremities no cyanosis, clubbing or edema Results Last 24 Hours of Lab Results: Laboratory Tests 04/07 1155 Chemistry BUN (9 - 20 mg/dL) 11 Toxicology Random Vancomycin (ug/ml) 5.2 Last 24 Hours of Angus Results: Blood cultures April 07 negative Assessment/Plan Impression: Recurrent rigors, with no recent documented fevers and with white blood cell count remaining normal on Vancomycin Day 7 of treatment for possible coag- negative Staph line sepsis, though most of his blood cultures are negative, suggesting that the positive cultures may represent contaminants. He has no other obvious source of sepsis; therefore it may be necessary to consider removal of the catheter given his persistent rigors. If his AV fistula could be used and then the catheter could obviously be removed. Suggestion: 1. Vascular surgery follow-up regarding status of his left upper extremity AV fistula 2. Consider removal of the Bao catheter after dialysis tomorrow as discussed with Renal (if this is done the catheter tip should be cultured) 3. Continue Vancomycin per dialysis protocol to complete a 10 day course of treatment
--- NOTE | 2017-04-08 10:43 | PN- Nephrology ---
See Addendum Assessment/Plan Assessment: 1. End-stage renal disease. Next Hemodialysis will be Tuesday 2. Positive blood cultures. He remains on therapy for the positive blood cultures. Blood cultures from Tuesday remain no growth. The readers have returned yesterday. 3. Status post transfusion on Tuesday. Will increase Epogen Suggestion: 1. Antibiotics as per Dr. Larios 2. Next hemodialysis will be on Tuesday. Vancomycin can be given as an outpatient at the dialysis unit. Subjective Subjective: Patient feels well today. However, he apparently developed about 30-45 minutes of rigors again yesterday Objective Vital Signs and I&Os Vital Signs Date Time Temp Pulse Resp B/P B/P Pulse O2 O2 Flow FiO2 Mean Ox Delivery Rate 04/08 0908 128/62 04/08 0908 128/62 04/08 0907 128/62 04/08 0907 128/62 04/08 0716 97.6 61 20 128/62 99 Room Air 04/08 0000 96 Nasal 2.0L Cannula 04/07 2222 66 122/64 04/07 2218 98.6 67 20 122/64 99 Nasal 3.0L Cannula 04/07 2048 96 Room Air Room Air 04/07 1520 98.1 04/07 1351 95 Room Air Room Air Intake & Output 04/08 1600 04/08 0400 04/07 1600 04/07 0400 04/06 1600 04/06 0400 Intake Total 529 541 1827 50 1000 580 Output Total 100 300 200 375 Balance 345 842 6118 50 800 205 Intake, 1000 Dialysate Intake, IV 250 Intake, Oral 452 840 1762 50 1000 580 Number 0 Bowel Movements Output, 225 Emesis Output, Urine 100 300 200 150 Patient 212 lb 210 lb 208 lb Weight Weight Chair scale Chair scale Chair scale Measurement Method Physical Exam: General Appearance: well developed/nourished, no apparent distress, alert, awake Head: atraumatic, normal appearance Ears, Nose, Throat: normal ENT inspection, hearing grossly normal Neck: normal inspection, supple, full range of motion, Bao catheter in right IJ Abdomen: normal bowel sounds, soft, non-tender, no masses, no organomegaly. Extremities: normal inspection, normal capillary refill, normal range of motion Neurologic/Psychiatric: no motor/sensory deficits, awake, alert, oriented x 3, normal mood/affect. Skin: intact, normal color Current Medications: Current Medications Sig/Julissa Start time Last Medication Dose Route Stop Time Status Admin Acetaminophen 650 MG Q6P PRN 03/27 2200 AC 04/02 PO 1657 Acetaminophen 1,000 MG Q8P PRN 03/27 2200 AC IV Albuterol Sulfate 3 ML Q4H PRN 03/28 0930 DC INH Albuterol Sulfate 2 PUF Q4P PRN 03/27 2215 AC INH Alprazolam 0.5 MG BID PRN 04/04 1030 AC 04/08 PO 04/11 1029 0911 Aspirin Buffered 81 MG AT BEDTIME 03/28 2200 AC 04/07 PO 2222 Atorvastatin Calcium 80 MG AT BEDTIME 03/28 2200 AC 04/07 PO 2222 Benzonatate 100 MG TID 04/05 1000 AC 04/08 PO 0907 Budesonide/ 2 PUF BID 03/27 2211 AC 04/08 Formoterol Fumarate INH 0919 Clonidine 0.1 MG BID 03/28 1000 AC 04/08 PO 0907 Clopidogrel Bisulfate 75 MG DAILY 03/28 1000 AC 04/08 PO 0907 Epoetin [place] 8,000 UNIT TuThSa PRN 03/29 1100 AC IV Famotidine 20 MG DAILY 04/03 1000 AC 04/08 PO 0907 Folic Acid 1 MG DAILY 03/28 1000 AC 04/08 PO 0908 Furosemide 80 MG DAILY 03/28 1000 AC 04/08 PO 0907 Insulin Aspart 0 TIDAC 03/28 0800 AC 04/08 SC 0916 Isosorbide 60 MG DAILY 03/28 1000 AC 04/08 Mononitrate PO 0908 Levothyroxine Sodium 0.2 MG DAILY AC 03/28 0700 AC 04/08 PO 0558 Metoprolol Tartrate 100 MG DAILY 03/28 1000 AC 04/08 PO 0908 Polyethylene Glycol 17 GM DAILY 03/28 1353 AC 03/30 PO 1139 Prochlorperazine 10 MG Q6-PRN PRN 03/27 2215 AC 04/07 IV 1628 Ramelteon 8 MG AT BEDTIME 03/28 2200 AC 04/07 PO 2223 Senna/Docusate Sodium 2 TAB AT BEDTIME 03/28 2200 AC 04/02 PO 1330 Sertraline HCl 100 MG DAILY 03/28 1000 AC 04/08 PO 0908 Sevelamer Carbonate 1,600 MG WM 03/30 1700 AC 04/07 PO 1222 Simethicone 80 MG Q8 04/02 1402 AC 04/08 PO 0558 Tamsulosin HCl 0.4 MG DAILY 03/28 1000 AC 04/08 PO 0907 Trazodone HCl 150 MG QPM 03/28 2200 AC 04/07 PO 2222 Trimethobenzamide HCl 200 MG 4 TIMES/DAY PRN 03/31 1730 AC 04/01 IM 2057 Vancomycin HCl 1,000 MG ONCE ONE 04/07 1200 DC 04/07 Sodium Chloride 250 ML IV 04/07 1259 1220 Vancomycin HCl See Dose TuThSa PRN 04/04 0930 AC Insts (1) IV Dose Instructions: (1)Vancomycin HCl: DOSE BASED ON RANDOM VANCO LEVELS Results Pertinent Lab Results: Laboratory Tests 04/07 04/07 04/07 1155 0755 0752 Chemistry Sodium (137 - 145 mmol/L) 131 L Potassium (3.5 - 5.1 mmol/L) 3.6 Chloride (98 - 107 mmol/L) 95 L Carbon Dioxide (22 - 30 mmol/L) 25 Anion Gap (5 - 16) 11 BUN (9 - 20 mg/dL) 11 40 H Creatinine (0.7 - 1.2 mg/dL) 4.1 H Estimated GFR (>60 ml/min) 15 L BUN/Creatinine Ratio (7 - 25 %) 9.8 Calcium (8.4 - 10.2 mg/dL) 7.1 L Phosphorus (2.5 - 4.5 mg/dL) 2.9 Magnesium (1.6 - 2.3 mg/dL) 2.1 Albumin (3.5 - 5.0 g/dL) 3.2 L Hematology CBC w Diff NO MAN DIFF REQ WBC (4.8 - 10.8 /CUMM) 4.4 L RBC (4.70 - 6.10 /CUMM) 3.20 L Hgb (14.0 - 18.0 G/DL) 8.5 L Hct (42 - 52 %) 25.3 L MCV (80.0 - 94.0 FL) 79.2 L MCH (27.0 - 31.0 PG) 26.5 L RDW (11.5 - 14.5 %) 16.4 H Plt Count (130 - 400 /CUMM) 122 L MPV (7.4 - 10.4 FL) 10.6 H Gran % (42.2 - 75.2 %) 63.5 Lymphocytes % (20.5 - 51.1 %) 22.1 Monocytes % (1.7 - 9.3 %) 10.6 H Eosinophils % (0 - 5 %) 3.3 Basophils % (0.0 - 2.0 %) 0.5 Absolute Granulocytes (1.4 - 6.5 /CUMM) 2.8 Absolute Lymphocytes (1.2 - 3.4 /CUMM) 1.0 L Absolute Monocytes (0.10 - 0.60 /CUMM) 0.5 Absolute Eosinophils (0.0 - 0.7 /CUMM) 0.1 Absolute Basophils (0.0 - 0.2 /CUMM) 0 PUBS MCHC (33.0 - 37.0 G/DL) 33.4 Toxicology Random Vancomycin (ug/ml) 5.2 Cancelled 8.7 04/07 04/06 0645 0720 Chemistry Sodium (137 - 145 mmol/L) 133 L Potassium (3.5 - 5.1 mmol/L) 4.1 Chloride (98 - 107 mmol/L) 98 Carbon Dioxide (22 - 30 mmol/L) 23 Anion Gap (5 - 16) 12 BUN (9 - 20 mg/dL) 28 H Creatinine (0.7 - 1.2 mg/dL) 3.4 H Estimated GFR (>60 ml/min) 18 L BUN/Creatinine Ratio (7 - 25 %) 8.2 Hematology CBC w Diff NO MAN DIFF REQ NO MAN DIFF REQ WBC (4.8 - 10.8 /CUMM) 4.7 L 5.9 RBC (4.70 - 6.10 /CUMM) 3.40 L 3.31 L Hgb (14.0 - 18.0 G/DL) 9.1 L 8.8 L Hct (42 - 52 %) 27.4 L 26.9 L MCV (80.0 - 94.0 FL) 80.5 81.2 MCH (27.0 - 31.0 PG) 26.9 L 26.5 L RDW (11.5 - 14.5 %) 16.1 H 16.3 H Plt Count (130 - 400 /CUMM) 129 L 121 L MPV (7.4 - 10.4 FL) 10.3 10.6 H Gran % (42.2 - 75.2 %) 62.8 76.2 H Lymphocytes % (20.5 - 51.1 %) 24.2 14.3 L Monocytes % (1.7 - 9.3 %) 11.3 H 9.2 Eosinophils % (0 - 5 %) 1.3 0 Basophils % (0.0 - 2.0 %) 0.4 0.3 Absolute Granulocytes (1.4 - 6.5 /CUMM) 2.9 4.5 Absolute Lymphocytes (1.2 - 3.4 /CUMM) 1.1 L 0.8 L Absolute Monocytes (0.10 - 0.60 /CUMM) 0.5 0.5 Absolute Eosinophils (0.0 - 0.7 /CUMM) 0.1 0 Absolute Basophils (0.0 - 0.2 /CUMM) 0 0 PUBS MCHC (33.0 - 37.0 G/DL) 33.4 32.7 L
[2017-04-08 14:47] VITALS: BP 126/74
[2017-04-08 15:46] LABS: ABSOLUTE BASOPHIL COUNT 0 /CUMM (0.0-0.2); ABSOLUTE EOSINOPHIL COUNT 0 /CUMM (0.0-0.7); ABSOLUTE GRANULOCYTE CT 2.3 /CUMM (1.4-6.5); ABSOLUTE LYMPH COUNT 0.2 /CUMM (1.2-3.4); ABSOLUTE MONOCYTE COUNT 0 /CUMM (0.10-0.60); BASOPHIL % 0.1 % (0.0-2.0); EOSINOPHIL % 0.4 % (0-5); GRANULOCYTE % 91.1 % (42.2-75.2); HEMATOCRIT 24.6 % (42-52); MEAN CORPUSCULAR HGB 26.6 PG (27.0-31.0); MEAN CORPUSCULAR HGB CONC 33.3 G/DL (33.0-37.0); MEAN PLATELET VOLUME 9.8 FL (7.4-10.4); PLATELET COUNT 105 /CUMM (130-400); RBC DISTRIBUTION WIDTH 16.1 % (11.5-14.5); RED BLOOD CELL CT 3.08 /CUMM (4.70-6.10); WHITE BLOOD CELL COUNT 2.5 /CUMM (4.8-10.8)
[2017-04-08 17:00] VITALS: BP 120/70
--- NOTE | 2017-04-08 17:43 | INTERVENTIONAL RADIOLOGY RPT ---
CLINICAL HISTORY: The patient is a 67-year-old male with ESRD, who presents to interventional radiology for removal of a tunneled central venous catheter for hemodialysis. PROCEDURES: Removal of the tunneled dialysis catheter PHYSICIANS: Dr. Pb Subramanian (attending). The attending radiologist was present during the procedure and related imaging, and reviewed the report. MEDICATIONS: None COMPLICATIONS: None. ESTIMATED BLOOD LOSS: <5 mL SPECIMENS: None. CONTRAST: None. FLUOROSCOPY TIME: None. PROCEDURE NOTE: Informed consent was obtained from the patient prior to the procedure. During this process, the procedure and potential alternatives were explained along with the intended outcome and benefits. The risks of the procedure, including the possibility of an unsuccessful procedure, as well as the risk of not doing the procedure, were discussed. The patient was given the opportunity to ask questions regarding the procedure and appeared competent to make decisions. A signed consent form documenting this discussion was placed in the medical record. A time-out procedure was performed. The right neck and chest as well as the external portion of the tunneled dialysis catheter were prepped and draped in usual sterile fashion. The hemodialysis catheter was removed with gentle traction. The catheter came out easily and in one piece. The cuff was removed with the catheter. Direct pressure was applied at the venotomy site and along the tunnel until hemostasis was achieved. The exit site of the tunnel was covered with skin adhesive. The catheter tip was sent for culture. FINDINGS: The exit site of the catheter tunnel was non-erythematous and non- tender. IMPRESSION: Successful removal of the tunneled dialysis catheter in the right chest. PLAN: 1. The patient was stable after the procedure and will be transferred back to his medical room. 2. The patient was instructed regarding wound care.
[2017-04-08 21:29] VITALS: BP 124/64
[2017-04-09 07:43] VITALS: BP 126/76
[2017-04-09 07:57] LABS: ABSOLUTE BASOPHIL COUNT 0 /CUMM (0.0-0.2); ABSOLUTE EOSINOPHIL COUNT 0.1 /CUMM (0.0-0.7); ABSOLUTE GRANULOCYTE CT 2.8 /CUMM (1.4-6.5); ABSOLUTE LYMPH COUNT 1.3 /CUMM (1.2-3.4); ABSOLUTE MONOCYTE COUNT 0.5 /CUMM (0.10-0.60); BASOPHIL % 0.7 % (0.0-2.0); EOSINOPHIL % 1.2 % (0-5); GRANULOCYTE % 58.8 % (42.2-75.2); HEMATOCRIT 27.9 % (42-52); MEAN CORPUSCULAR HGB 26.7 PG (27.0-31.0); MEAN CORPUSCULAR HGB CONC 32.8 G/DL (33.0-37.0); MEAN CORPUSCULAR VOLUME 81.3 FL (80.0-94.0); RED BLOOD CELL CT 3.44 /CUMM (4.70-6.10)
--- NOTE | 2017-04-09 08:19 | PN- Housestaff ---
Subjective Follow-up For: Staph coagulase bacteremia Elevated troponins in setting of ESRD Hx of CAD s/p UTE ESRD on HD Complaints: no complaints Tele-Events Since Last Visit: NSR HR: 60-64. No overnight events Subjective: Patient seen and examined at bedside. He has no complaints and remains afebrile overnight. He underwent dialysis yesterday and removal of tunelled dialysis catheter. He will be NPO after midnight tmrw for plcament fo Bao cath. Currently off Plavix. Review of Systems Constitutional: Denies: chills, fever. Cardiovascular: Denies: chest pain, palpitations. Respiratory: Denies: cough, short of breath, sputum production. Gastrointestinal: Denies: abdominal pain, constipation, diarrhea, nausea, changes in stool, vomiting. Genitourinary: Reports: no symptoms. Musculoskeletal: Denies: back pain, joint pain. Neurological/Psychological: Denies: headache, numbness, tingling, tremors. Objective Last 24 Hrs of Vital Signs/I&O Vital Signs Date Time Temp Pulse Resp B/P B/P Pulse O2 O2 Flow FiO2 Mean Ox Delivery Rate 04/09 0743 97.8 54 20 126/76 98 Room Air 04/08 2129 98.1 60 20 124/64 93 Room Air 04/08 2106 72 124/64 04/08 1700 98.2 63 20 120/70 94 Room Air 04/08 1447 98.9 68 20 126/74 94 Room Air 04/08 0908 128/62 04/08 0908 128/62 04/08 0907 128/62 04/08 0907 128/62 Intake & Output 04/09 1600 04/09 0800 04/09 0000 Intake Total 120 1000 Output Total 500 75 Balance -380 925 Intake, IV 250 Intake, Oral 120 750 Output, Urine 500 75 Patient 213 lb Weight Weight Chair scale Measurement Method Physical Exam General Appearance: Alert, Oriented X3, Cooperative, No Acute Distress HEENT: Atraumatic, PERRLA, EOMI, Mucous Membr. moist/pink Neck: Supple, No JVD Cardiovascular: Regular Rate, Normal S1, Normal S2 Lungs: Clear to Auscultation, Normal Air Movement Abdomen: Normal Bowel Sounds, Soft, No Tenderness Neurological: Normal Speech, Strength at 5/5 X4 Ext, Normal Tone, Sensation Intact, Cranial Nerves 3-12 NL, Reflexes 2+ Extremities: No Clubbing, No Cyanosis, No Edema, Normal Pulses, No Tenderness/ Swelling Current Medications: Current Medications Sig/Julissa Start time Last Medication Dose Route Stop Time Status Admin Acetaminophen 650 MG Q6P PRN 03/27 2200 AC 04/02 PO 1657 Acetaminophen 1,000 MG Q8P PRN 03/27 2200 AC IV Albuterol Sulfate 2 PUF Q4P PRN 03/27 2215 AC INH Alprazolam 0.5 MG BID PRN 04/04 1030 AC 04/08 PO 04/11 1029 2108 Aspirin Buffered 81 MG AT BEDTIME 03/28 2200 AC 04/08 PO 210 Atorvastatin Calcium 80 MG AT BEDTIME 03/28 220 AC 04/08 PO 210 Benzonatate 100 MG TID 04/05 1000 AC 04/08 PO 2101 Budesonide/ 2 PUF BID 03/27 221 AC 04/08 Formoterol Fumarate INH 2102 Clonidine 0.1 MG BID 03/28 1000 AC 04/08 PO 210 Clopidogrel Bisulfate 75 MG DAILY 03/28 1000 DC 04/08 PO 0907 Epoetin [place] 1,000 UNITS ONCE ONE 04/08 1545 CAN IV 04/08 1546 Epoetin [place] 1,000 UNIT ONCE ONE 04/08 1545 CAN IV 04/08 1546 Epoetin [place] 10,000 UNIT ONCE ONE 04/08 1545 DC IV 04/08 1546 Epoetin [place] 8,000 UNIT TuThSa PRN 03/29 1100 AC IV Famotidine 20 MG DAILY 04/03 1000 AC 04/08 PO 0907 Folic Acid 1 MG DAILY 03/28 1000 AC 04/08 PO 0908 Furosemide 80 MG DAILY 03/28 1000 AC 04/08 PO 0907 Insulin Aspart 0 TIDAC 03/28 0800 AC 04/09 SC 0756 Isosorbide 60 MG DAILY 03/28 1000 AC 04/08 Mononitrate PO 0908 Levothyroxine Sodium 0.2 MG DAILY AC 03/28 0700 AC 04/09 PO 0622 Lidocaine 0 .STK-MED ONE 04/08 1653 DC .ROUTE Melatonin 3 MG AT BEDTIME 04/09 2200 AC 04/09 PO 0122 Metoprolol Tartrate 100 MG DAILY 03/28 1000 AC 04/08 PO 0908 Patient Medication 1 ED .STK-MED ONE 04/08 1404 DC Teaching ED 04/08 1405 Polyethylene Glycol 17 GM DAILY 03/28 1353 AC 03/30 PO 1139 Prochlorperazine 10 MG Q6-PRN PRN 03/27 2215 AC 04/07 IV 1628 Ramelteon 8 MG AT BEDTIME 03/28 2200 DC 04/08 PO 210 Senna/Docusate Sodium 2 TAB AT BEDTIME 03/28 2200 AC 04/08 PO 210 Sertraline HCl 100 MG DAILY 03/28 1000 AC 04/08 PO 0908 Sevelamer Carbonate 1,600 MG WM 03/30 1700 AC 04/09 PO 0757 Simethicone 80 MG Q8 04/02 1402 AC 04/09 PO 06 Tamsulosin HCl 0.4 MG DAILY 03/28 1000 AC 04/08 PO 09 Trazodone HCl 150 MG QPM 03/28 2200 AC 04/08 PO 210 Trimethobenzamide HCl 200 MG 4 TIMES/DAY PRN 03/31 1730 AC 04/01 IM 205 Vancomycin HCl 1,000 MG ONCE ONE 04/08 1800 DC 04/08 Sodium Chloride 250 ML IV 04/08 1859 1855 Vancomycin HCl See Dose TuThSa PRN 04/04 0930 AC Insts (1) IV Dose Instructions: (1)Vancomycin HCl: DOSE BASED ON RANDOM VANCO LEVELS Last 24 Hrs of Lab/Angus Results Last 24 Hrs of Labs/Mics: Laboratory Tests 04/09/17 0630: CBC w Diff Pending, WBC Pending, RBC Pending, Hgb Pending, Hct Pending, MCV Pending, MCH Pending, RDW Pending, Plt Count Pending, MPV Pending, Gran % Pending, Lymphocytes % Pending, Monocytes % Pending, Eosinophils % Pending, Basophils % Pending, Absolute Granulocytes Pending, Absolute Lymphocytes Pending , Absolute Monocytes Pending, Absolute Eosinophils Pending, Absolute Basophils Pending, PUBS MCHC Pending 04/08/17 1509: Anion Gap 10, Estimated GFR 24 L, BUN/Creatinine Ratio 8.5, Calcium 7.5 L, CBC w Diff MAN DIFF ORDERED, RBC 3.08 L, MCV 80.0, MCH 26.6 L, RDW 16.1 H, MPV 9.8, Gran % 91.1 H, Lymphocytes % 7.2 L, Monocytes % 1.2 L, Eosinophils % 0.4 , Basophils % 0.1, Absolute Granulocytes 2.3, Segmented Neutrophils 92 H, Absolute Lymphocytes 0.2 L, Lymphocytes 6 L, Monocytes 1 L, Absolute Monocytes 0 L, Absolute Eosinophils 0, Basophils 1, Absolute Basophils 0, Platelet Estimate DECREASED, Poikilocytosis FEW, Anisocytosis 1+, Macrocytic Cells FEW, Ovalocytes FEW, PUBS MCHC 33.3, Random Vancomycin 10.4 04/08/17 1348: Random Vancomycin Cancelled 04/08/17 1347: Random Vancomycin Cancelled Microbiology 04/08 1706 CATH TIP: Catheter Tip Culture - RECD 04/08 1600 BODY FLUID: Body Fluid Culture - COLB 04/08 1600 BODY FLUID: Gram Stain - COLB Orders Fingersticks (last 24 hrs): 172 201 135 186 Assessment/Plan Assessment: 67 year old Man with PMH of CAD s/p stents (Oct 2016), COPD, T2DM, neuropathy, MILES noncompliant with CPAP, HFpEF, CKD stage 5 s/p AV fistula (January 2017), multiple admits for chest pain, dyspnea and elevated troponins, initiated on HD (TTS) via [facility] during recent admission for fluid overload (03/15-03/23). 1. Chills and rigors. Afebrile within the past 24 hrs. Could be due to dialysis catheter and patient underwent removal of his catheter yesterday. Blood culture March 29 and one set growing staph coagulase negative. WBC count normal. Continues to remain afebrile. 2. Elevated troponins. Most likely secondary to chronic kidney disease and poor clearance vs demand ischemia vs NSTEMI. Echocardiogram shows worsening of the apical wall motion abnormality. Ejection fraction approximate 45%. 3. History of end-stage renal disease on dialysis, Tuesday and Tuesday. However patient's tuneled catheter was removed yesterday and will be replaced on Tuesday. 4. Bilateral cortical and exophytic renal cysts. Stable 5. Acute on Chronic anemia. Status post 2 units of blood transfusion. Stable 6. CAD s/p UTE. He is on Plavix and ASA. Plavix is being held in anticipation of Bao cath placement on Tuesday. PLAN * Monitor vitals closely * On vancomycin per dialysis protocol. Plan is for total of 10-14 days antibiotics * Next dialysis on Tuesday. His subsequent dialysis days next week as per Nephro would be Tuesday and Tuesday. * Cont Incentive spirometry * f/u catheter tip culture. * ALPS for DVT prophylaxis * Full code Problem List: 1. Infection, dialysis vascular access 2. ESRD (end stage renal disease) 3. Volume overload Pain Ratin Pain Location: n/a Pain Goal: Remain pain free Pain Plan: tyelnol Tomorrow's Labs & Rationales: cbc - WBC bep - Cr
[2017-04-09 09:52] LABS: PLATELET COUNT 132 /CUMM (130-400); WHITE BLOOD CELL COUNT 4.7 /CUMM (4.8-10.8)
--- NOTE | 2017-04-09 10:32 | PN- Att Addend ---
Attending Addendum Attending Brief Note Patient seen and examined. Plan of care discussed with the medical team and the patient. Available lab work and radiology test reports were reviewed. No chills yesterday. His catheter was removed yesterday. Overall he appears comfortable and denies any fever or chest pain or difficulty breathing. Today he denies any pain. He reports mild cough with clear sputum which is apparently chronic. Vital Signs Date Time Temp Pulse Resp B/P B/P Pulse O2 O2 Flow FiO2 Mean Ox Delivery Rate 04/09 0834 67 126/76 04/09 0834 67 126/76 04/09 0833 67 126/76 04/09 0833 67 126/76 04/09 0743 97.8 54 20 126/76 98 Room Air 04/08 2129 98.1 60 20 124/64 93 Room Air 04/08 2106 72 124/64 04/08 1700 98.2 63 20 120/70 94 Room Air 04/08 1447 98.9 68 20 126/74 94 Room Air Intake & Output 04/09 1600 04/09 0800 04/09 0000 Intake Total 120 1000 Output Total 500 75 Balance -380 925 Intake, IV 250 Intake, Oral 120 750 Output, Urine 500 75 Patient 214 lb 213 lb Weight Weight Chair scale Chair scale Measurement Method Exam: General: Patient awake alert oriented without any distress CVS: S1 plus S2 without any murmur or gallops Chest: Few scattered crepitation without any wheeze. There is no respiratory distress. Dialysis catheter has been removed Abdomen: Soft nontender, bowel sound present, no guarding or rebound CARD FIXER: Awake alert oriented without any focal neuro deficit and follows command appropriately Extremities: No edema; no clubbing or cyanosis noted Laboratory Tests 04/09 04/08 0630 1509 Chemistry Sodium (137 - 145 mmol/L) 131 L Potassium (3.5 - 5.1 mmol/L) 3.7 Chloride (98 - 107 mmol/L) 96 L Carbon Dioxide (22 - 30 mmol/L) 25 Anion Gap (5 - 16) 10 BUN (9 - 20 mg/dL) 23 H Creatinine (0.7 - 1.2 mg/dL) 2.7 H Estimated GFR (>60 ml/min) 24 L BUN/Creatinine Ratio (7 - 25 %) 8.5 Calcium (8.4 - 10.2 mg/dL) 7.5 L Hematology CBC w Diff NO MAN DIFF REQ MAN DIFF ORDERED WBC (4.8 - 10.8 /CUMM) 4.7 L 2.5 L RBC (4.70 - 6.10 /CUMM) 3.44 L 3.08 L Hgb (14.0 - 18.0 G/DL) 9.2 L 8.2 L Hct (42 - 52 %) 27.9 L 24.6 L MCV (80.0 - 94.0 FL) 81.3 80.0 MCH (27.0 - 31.0 PG) 26.7 L 26.6 L RDW (11.5 - 14.5 %) 16.0 H 16.1 H Plt Count (130 - 400 /CUMM) 132 105 L MPV (7.4 - 10.4 FL) 11.0 H 9.8 Gran % (42.2 - 75.2 %) 58.8 91.1 H Lymphocytes % (20.5 - 51.1 %) 28.4 7.2 L Monocytes % (1.7 - 9.3 %) 10.9 H 1.2 L Eosinophils % (0 - 5 %) 1.2 0.4 Basophils % (0.0 - 2.0 %) 0.7 0.1 Absolute Granulocytes (1.4 - 6.5 /CUMM) 2.8 2.3 Segmented Neutrophils (42.2 - 75.2 %) 92 H Absolute Lymphocytes (1.2 - 3.4 /CUMM) 1.3 0.2 L Lymphocytes (20.5 - 51.1 %) 6 L Monocytes (1.7 - 9.3 %) 1 L Absolute Monocytes (0.10 - 0.60 /CUMM) 0.5 0 L Absolute Eosinophils (0.0 - 0.7 /CUMM) 0.1 0 Basophils (0.0 - 2.0 %) 1 Absolute Basophils (0.0 - 0.2 /CUMM) 0 0 Platelet Estimate (ADEQUATE) DECREASED Poikilocytosis FEW Anisocytosis 1+ Macrocytic Cells FEW Ovalocytes FEW PUBS MCHC (33.0 - 37.0 G/DL) 32.8 L 33.3 Toxicology Random Vancomycin (ug/ml) 10.4 04/08 04/08 1348 1347 Toxicology Random Vancomycin Cancelled Cancelled Microbiology Date/Time Procedure - Status Source Growth 04/08 1706 Catheter Tip Culture - RECD CATH TIP 04/08 1600 Body Fluid Culture - COLB BODY FLUID 04/08 1600 Gram Stain - COLB BODY FLUID Assessment * Chills and rigors likely sepsis staph coag negative- patient has been afebrile despite intermittent chills; presumed source was dialysis catheter which has been removed * Elevated troponin presumably from chronic kidney disease; CAD * Diabetes * End-stage renal disease on hemodialysis * Recent acute gastritis likely viral * Acute and chronic anemia * Transaminitis * Hyponatremia * Thrombocytopenia Plan * Continue vancomycin with dialysis- patient likely will need at least 2 weeks of IV. * Next dialysis on Tuesday * Catheter placement for dialysis on Tuesday * Ambulate patient with a cane * Await catheter tip culture report
--- NOTE | 2017-04-09 10:55 | PN- Infect Dx ---
Subjective Subjective: Afebrile. He has had no further rigors since removal of the Bao catheter yesterday. He does note shortness of breath with no chest pain or cough. Objective Last 24 Hrs of Vital Signs/I&O Vital Signs Date Time Temp Pulse Resp B/P B/P Pulse O2 O2 Flow FiO2 Mean Ox Delivery Rate 04/09 0834 67 126/76 04/09 0834 67 126/76 04/09 0833 67 126/76 04/09 0833 67 126/76 04/09 0743 97.8 54 20 126/76 98 Room Air 04/08 2129 98.1 60 20 124/64 93 Room Air 04/08 2106 72 124/64 04/08 1700 98.2 63 20 120/70 94 Room Air 04/08 1447 98.9 68 20 126/74 94 Room Air Intake & Output 04/09 1600 04/09 0800 04/09 0000 Intake Total 120 1000 Output Total 500 75 Balance -380 925 Intake, IV 250 Intake, Oral 120 750 Output, Urine 500 75 Patient 214 lb 213 lb Weight Weight Chair scale Chair scale Measurement Method Physical Exam Other Physical Findings: He appears comfortable in no acute distress Neck hemorrhagic lesion at the site of the recent Bao catheter Lungs are clear Heart regular rhythm with no murmur Extremities no cyanosis, clubbing or edema Results Last 24 Hours of Lab Results: Laboratory Tests 04/09 04/08 0630 1509 Chemistry Sodium (137 - 145 mmol/L) 131 L Potassium (3.5 - 5.1 mmol/L) 3.7 Chloride (98 - 107 mmol/L) 96 L Carbon Dioxide (22 - 30 mmol/L) 25 Anion Gap (5 - 16) 10 BUN (9 - 20 mg/dL) 23 H Creatinine (0.7 - 1.2 mg/dL) 2.7 H Estimated GFR (>60 ml/min) 24 L BUN/Creatinine Ratio (7 - 25 %) 8.5 Calcium (8.4 - 10.2 mg/dL) 7.5 L Hematology CBC w Diff NO MAN DIFF REQ MAN DIFF ORDERED WBC (4.8 - 10.8 /CUMM) 4.7 L 2.5 L RBC (4.70 - 6.10 /CUMM) 3.44 L 3.08 L Hgb (14.0 - 18.0 G/DL) 9.2 L 8.2 L Hct (42 - 52 %) 27.9 L 24.6 L MCV (80.0 - 94.0 FL) 81.3 80.0 MCH (27.0 - 31.0 PG) 26.7 L 26.6 L RDW (11.5 - 14.5 %) 16.0 H 16.1 H Plt Count (130 - 400 /CUMM) 132 105 L MPV (7.4 - 10.4 FL) 11.0 H 9.8 Gran % (42.2 - 75.2 %) 58.8 91.1 H Lymphocytes % (20.5 - 51.1 %) 28.4 7.2 L Monocytes % (1.7 - 9.3 %) 10.9 H 1.2 L Eosinophils % (0 - 5 %) 1.2 0.4 Basophils % (0.0 - 2.0 %) 0.7 0.1 Absolute Granulocytes (1.4 - 6.5 /CUMM) 2.8 2.3 Segmented Neutrophils (42.2 - 75.2 %) 92 H Absolute Lymphocytes (1.2 - 3.4 /CUMM) 1.3 0.2 L Lymphocytes (20.5 - 51.1 %) 6 L Monocytes (1.7 - 9.3 %) 1 L Absolute Monocytes (0.10 - 0.60 /CUMM) 0.5 0 L Absolute Eosinophils (0.0 - 0.7 /CUMM) 0.1 0 Basophils (0.0 - 2.0 %) 1 Absolute Basophils (0.0 - 0.2 /CUMM) 0 0 Platelet Estimate (ADEQUATE) DECREASED Poikilocytosis FEW Anisocytosis 1+ Macrocytic Cells FEW Ovalocytes FEW PUBS MCHC (33.0 - 37.0 G/DL) 32.8 L 33.3 Toxicology Random Vancomycin (ug/ml) 10.4 04/08 04/08 1348 1347 Toxicology Random Vancomycin Cancelled Cancelled Last 24 Hours of Angus Results: Blood cultures 2 April 07 negative Bao catheter tip culture April 08 greater than 15 colonies of gram-positive cocci Assessment/Plan Impression: Stable status post removal of Bao catheter yesterday because of recurrent rigors raising concern for persistent line sepsis, with 2 positive blood cultures for coag negative Staph, though most of his blood cultures have remained negative, and with the catheter tip culture positive for gram-positive cocci. He has remained afebrile with white blood cell count normal on Vancomycin now Day 8 of treatment. The significance of his recent dyspnea is unclear and will need further evaluation if it persists. Suggestion: 1. Further evaluation of his dyspnea if it persists per Medicine 2. Vascular surgery follow-up regarding status of his left upper extremity AV fistula 3. Follow-up recent blood cultures and catheter tip culture 4. Re-dose with Vancomycin on April 11 after dialysis per protocol
--- NOTE | 2017-04-09 12:50 | PN- Nephrology ---
Assessment/Plan Assessment: End-stage renal disease: No acute dialytic need. We'll plan for next dialysis Tuesday afternoon after the Bao catheter is placed. Make nothing by mouth after midnight on Tuesday night. Patient advised to limit his fluid intake over the weekend and continue following a renal diet. Would fluid restrict to 1 L per day. His AV fistula is underdeveloped and not ready for cannulation. Coag-negative staph bacteremia with suspected catheter-related bacteremia: Repeat blood cultures were negative. Continue IV antibiotics 3 times per week schedule. Suggestion: As above Please confirm patient is on a 1 L per day fluid restrict Nothing by mouth at midnight Tuesday Chris Ashley MD Subjective Subjective: Feels better today. Denies chills or rigors Dialysis catheter was removed yesterday after dialysis Tip of catheter growing coag-negative staph Review of Systems: Denies fever or chills Denies nausea or vomiting Objective Vital Signs and I&Os Vital Signs Date Time Temp Pulse Resp B/P B/P Pulse O2 O2 Flow FiO2 Mean Ox Delivery Rate 04/09 0834 67 126/76 04/09 0834 67 126/76 04/09 0833 67 126/76 04/09 0833 67 126/76 04/09 0800 98 Room Air 04/09 0743 97.8 54 20 126/76 98 Room Air 04/08 2129 98.1 60 20 124/64 93 Room Air 04/08 2106 72 124/64 04/08 1700 98.2 63 20 120/70 94 Room Air 04/08 1447 98.9 68 20 126/74 94 Room Air Intake & Output 04/09 1600 04/09 0400 04/08 1600 04/08 0400 04/07 1600 04/07 0400 Intake Total 120 1000 443 989 4952 50 Output Total 500 75 150 100 300 Balance -380 925 926 696 7289 50 Intake, 1000 Dialysate Intake, IV 250 250 Intake, Oral 120 750 016 843 2034 50 Number 0 Bowel Movements Output, Urine 500 75 150 100 300 Patient 214 lb 213 lb 212 lb 210 lb Weight Weight Chair scale Chair scale Chair scale Chair scale Measurement Method Physical Exam: General: NAD, A+O x3. HEENT: NC/AT. CV: RRR, no m/r/g Pulm: CTAB, no rales Abd: soft, NT Lower Ext: 1+ edema Upper Ext: LUE AVF +thrill/bruit, underdeveloped Neuro: neg tremor, asterixis Skin: no rash, jaundice : no hua catheter Current Medications: Current Medications Sig/Julissa Start time Last Medication Dose Route Stop Time Status Admin Acetaminophen 650 MG Q6P PRN 03/27 2200 AC 04/02 PO 1657 Acetaminophen 1,000 MG Q8P PRN 03/27 220 AC IV Albuterol Sulfate 2 PUF Q4P PRN 03/27 221 AC INH Alprazolam 0.5 MG BID PRN 04/04 1030 AC 04/09 PO 04/11 1029 0839 Aspirin Buffered 81 MG AT BEDTIME 03/28 2200 AC 04/08 PO 2101 Atorvastatin Calcium 80 MG AT BEDTIME 03/28 2200 AC 04/08 PO 2102 Benzonatate 100 MG TID 04/05 1000 AC 04/09 PO 0835 Budesonide/ 2 PUF BID 03/27 221 AC 04/09 Formoterol Fumarate INH 0839 Clonidine 0.1 MG BID 03/28 1000 AC 04/09 PO 0833 Clopidogrel Bisulfate 75 MG DAILY 03/28 1000 DC 04/08 PO 0907 Epoetin [place] 1,000 UNITS ONCE ONE 04/08 1545 CAN IV 04/08 1546 Epoetin [place] 1,000 UNIT ONCE ONE 04/08 1545 CAN IV 04/08 1546 Epoetin [place] 10,000 UNIT ONCE ONE 04/08 1545 DC IV 04/08 1546 Epoetin [place] 8,000 UNIT TuThSa PRN 03/29 1100 AC IV Famotidine 20 MG DAILY 04/03 1000 AC 04/09 PO 0834 Folic Acid 1 MG DAILY 03/28 1000 AC 04/09 PO 0834 Furosemide 80 MG DAILY 03/28 1000 AC 04/09 PO 0834 Insulin Aspart 0 TIDAC 03/28 08 AC 04/09 SC 1220 Isosorbide 60 MG DAILY 03/28 1000 AC 04/09 Mononitrate PO 0833 Levothyroxine Sodium 0.2 MG DAILY AC 03/28 07 AC 04/09 PO 0622 Lidocaine 0 .STK-MED ONE 04/08 1653 DC .ROUTE Melatonin 3 MG AT BEDTIME 04/09 2200 AC 04/09 PO 0122 Metoprolol Tartrate 100 MG DAILY 03/28 1000 AC 04/09 PO 0834 Patient Medication 1 ED .STK-MED ONE 04/08 1404 DC Teaching ED 04/08 1405 Polyethylene Glycol 17 GM DAILY 03/28 1353 AC 03/30 PO 1139 Prochlorperazine 10 MG Q6-PRN PRN 03/27 2215 AC 04/07 IV 1628 Ramelteon 8 MG AT BEDTIME 03/28 2200 DC 04/08 PO 2102 Senna/Docusate Sodium 2 TAB AT BEDTIME 03/28 2200 AC 04/08 PO 2102 Sertraline HCl 100 MG DAILY 03/28 1000 AC 04/09 PO 0835 Sevelamer Carbonate 1,600 MG WM 03/30 1700 AC 04/09 PO 1220 Simethicone 80 MG Q8 04/02 1402 AC 04/09 PO 0622 Tamsulosin HCl 0.4 MG DAILY 03/28 1000 AC 04/09 PO 0834 Trazodone HCl 150 MG QPM 03/28 2200 AC 04/08 PO 2102 Trimethobenzamide HCl 200 MG 4 TIMES/DAY PRN 03/31 1730 AC 04/01 IM 2057 Vancomycin HCl See Dose MoThSa PRN 04/11 1200 AC Insts (1) IV Vancomycin HCl 1,000 MG ONCE ONE 04/08 1800 DC 04/08 Sodium Chloride 250 ML IV 04/08 1859 1855 Vancomycin HCl See Dose TuThSa PRN 04/04 0930 DC Insts (2) IV Dose Instructions: (1)Vancomycin HCl: DOSE BASED ON RANDOM VANCO LEVELS (2)Vancomycin HCl: DOSE BASED ON RANDOM VANCO LEVELS Results Pertinent Lab Results: Laboratory Tests 04/09 04/08 0630 1509 Chemistry Sodium (137 - 145 mmol/L) 131 L Potassium (3.5 - 5.1 mmol/L) 3.7 Chloride (98 - 107 mmol/L) 96 L Carbon Dioxide (22 - 30 mmol/L) 25 Anion Gap (5 - 16) 10 BUN (9 - 20 mg/dL) 23 H Creatinine (0.7 - 1.2 mg/dL) 2.7 H Estimated GFR (>60 ml/min) 24 L BUN/Creatinine Ratio (7 - 25 %) 8.5 Calcium (8.4 - 10.2 mg/dL) 7.5 L Hematology CBC w Diff NO MAN DIFF REQ MAN DIFF ORDERED WBC (4.8 - 10.8 /CUMM) 4.7 L 2.5 L RBC (4.70 - 6.10 /CUMM) 3.44 L 3.08 L Hgb (14.0 - 18.0 G/DL) 9.2 L 8.2 L Hct (42 - 52 %) 27.9 L 24.6 L MCV (80.0 - 94.0 FL) 81.3 80.0 MCH (27.0 - 31.0 PG) 26.7 L 26.6 L RDW (11.5 - 14.5 %) 16.0 H 16.1 H Plt Count (130 - 400 /CUMM) 132 105 L MPV (7.4 - 10.4 FL) 11.0 H 9.8 Gran % (42.2 - 75.2 %) 58.8 91.1 H Lymphocytes % (20.5 - 51.1 %) 28.4 7.2 L Monocytes % (1.7 - 9.3 %) 10.9 H 1.2 L Eosinophils % (0 - 5 %) 1.2 0.4 Basophils % (0.0 - 2.0 %) 0.7 0.1 Absolute Granulocytes (1.4 - 6.5 /CUMM) 2.8 2.3 Segmented Neutrophils (42.2 - 75.2 %) 92 H Absolute Lymphocytes (1.2 - 3.4 /CUMM) 1.3 0.2 L Lymphocytes (20.5 - 51.1 %) 6 L Monocytes (1.7 - 9.3 %) 1 L Absolute Monocytes (0.10 - 0.60 /CUMM) 0.5 0 L Absolute Eosinophils (0.0 - 0.7 /CUMM) 0.1 0 Basophils (0.0 - 2.0 %) 1 Absolute Basophils (0.0 - 0.2 /CUMM) 0 0 Platelet Estimate (ADEQUATE) DECREASED Poikilocytosis FEW Anisocytosis 1+ Macrocytic Cells FEW Ovalocytes FEW PUBS MCHC (33.0 - 37.0 G/DL) 32.8 L 33.3 Toxicology Random Vancomycin (ug/ml) 10.4 04/08 04/08 04/07 04/07 1348 1347 1155 0755 Chemistry BUN (9 - 20 mg/dL) 11 Toxicology Random Vancomycin (ug/ml) Cancelled Cancelled 5.2 Cancelled 04/07 04/07 0752 0645 Chemistry Sodium (137 - 145 mmol/L) 131 L Potassium (3.5 - 5.1 mmol/L) 3.6 Chloride (98 - 107 mmol/L) 95 L Carbon Dioxide (22 - 30 mmol/L) 25 Anion Gap (5 - 16) 11 BUN (9 - 20 mg/dL) 40 H Creatinine (0.7 - 1.2 mg/dL) 4.1 H Estimated GFR (>60 ml/min) 15 L BUN/Creatinine Ratio (7 - 25 %) 9.8 Calcium (8.4 - 10.2 mg/dL) 7.1 L Phosphorus (2.5 - 4.5 mg/dL) 2.9 Magnesium (1.6 - 2.3 mg/dL) 2.1 Albumin (3.5 - 5.0 g/dL) 3.2 L Hematology CBC w Diff NO MAN DIFF REQ NO MAN DIFF REQ WBC (4.8 - 10.8 /CUMM) 4.4 L 4.7 L RBC (4.70 - 6.10 /CUMM) 3.20 L 3.40 L Hgb (14.0 - 18.0 G/DL) 8.5 L 9.1 L Hct (42 - 52 %) 25.3 L 27.4 L MCV (80.0 - 94.0 FL) 79.2 L 80.5 MCH (27.0 - 31.0 PG) 26.5 L 26.9 L RDW (11.5 - 14.5 %) 16.4 H 16.1 H Plt Count (130 - 400 /CUMM) 122 L 129 L MPV (7.4 - 10.4 FL) 10.6 H 10.3 Gran % (42.2 - 75.2 %) 63.5 62.8 Lymphocytes % (20.5 - 51.1 %) 22.1 24.2 Monocytes % (1.7 - 9.3 %) 10.6 H 11.3 H Eosinophils % (0 - 5 %) 3.3 1.3 Basophils % (0.0 - 2.0 %) 0.5 0.4 Absolute Granulocytes (1.4 - 6.5 /CUMM) 2.8 2.9 Absolute Lymphocytes (1.2 - 3.4 /CUMM) 1.0 L 1.1 L Absolute Monocytes (0.10 - 0.60 /CUMM) 0.5 0.5 Absolute Eosinophils (0.0 - 0.7 /CUMM) 0.1 0.1 Absolute Basophils (0.0 - 0.2 /CUMM) 0 0 PUBS MCHC (33.0 - 37.0 G/DL) 33.4 33.4 Toxicology Random Vancomycin (ug/ml) 8.7
--- NOTE | 2017-04-09 14:59 | PN- Vascular Surgery ---
Surgical Brief Attending Note Brief Attending Note: s/p left brachial-ceph AVF about 10wks ago. recent bacteremia. Tunneled catheter removed yesterday. plan for new one on Tuesday by IR. asked to evaluate left arm AVF for possible use. Exam LEFT: palpable thrill over cephalic vein A/P Recommend Left arm fistula u/s to assess for maturation, venous stenosis. May need fisutologram pending results, prior to use. Proceed with tunneled catheter on Tuesday with IR.
[2017-04-09 15:30] VITALS: BP 112/60
[2017-04-09 21:43] VITALS: BP 126/62
[2017-04-10 07:00] VITALS: BP 120/80
--- NOTE | 2017-04-10 10:50 | PN- Att Addend ---
Attending Addendum Attending Brief Note Patient seen and examined. Plan of care discussed with the medical team and the patient. Available lab work and radiology test reports were reviewed. No chills the last 2 days. His catheter was removed on Tuesday. Overall he appears comfortable and denies any fever or chest pain. He reports the mild to moderate difficulty breathing today. He is currently on 2 L of oxygen. Today he denies any pain. He reports mild cough with clear sputum which is apparently chronic. Vital Signs Date Time Temp Pulse Resp B/P B/P Pulse O2 O2 Flow FiO2 Mean Ox Delivery Rate 04/10 0913 62 120/80 04/10 0912 62 120/80 04/10 0912 62 120/80 04/10 0912 62 120/80 04/10 0700 97.8 65 20 120/80 98 Nasal 2.0L Cannula 04/09 2143 97.8 61 20 126/62 94 Room Air 04/09 2120 61 126/62 04/09 1600 92 Room Air 04/09 1530 98.2 63 20 112/60 92 Room Air Intake & Output 04/10 1600 04/10 0800 04/10 0000 Intake Total 100 340 Output Total 200 250 Balance -100 90 Intake, Oral 100 340 Number 1 1 Bowel Movements Output, Urine 200 250 Catheter tip culture is growing staph coag negative; sensitivities pending Exam: General: Patient awake alert oriented without any distress CVS: S1 plus S2 without any murmur or gallops Chest: Basal crepitations bilaterally but more pronounced on the left side. No wheezing. There is no respiratory distress. Dialysis catheter has been removed Abdomen: Soft nontender, bowel sound present, no guarding or rebound POLE INCISOR OPERATOR: Awake alert oriented without any focal neuro deficit and follows command appropriately Extremities: No edema; no clubbing or cyanosis noted No no labs done today Assessment * Chills and rigors likely sepsis staph coag negative- patient has been afebrile despite intermittent chills; presumed source was dialysis catheter which has been removed; dialysis catheter tip is growing staph coag negative. * Mild shorts of breath likely fluid buildup * Elevated troponin presumably from chronic kidney disease; CAD * Diabetes * End-stage renal disease on hemodialysis * Recent acute gastritis likely viral * Acute and chronic anemia * Transaminitis * Hyponatremia * Thrombocytopenia Plan * Continue vancomycin with dialysis- patient likely will need at least 2 weeks of IV. * Patient's difficult breathing worsens he may need urgent dialysis catheter placement and dialysis today. * Lasix 80 mg IV 1 * Closely monitor history status * Limited fluid intake 1 L per day * Continue oxygen * Next dialysis on Tuesday * Catheter placement for dialysis on Tuesday; patient be nothing by mouth * Ambulate patient with a cane
[2017-04-10 11:17] LABS: ABSOLUTE BASOPHIL COUNT 0 /CUMM (0.0-0.2); ABSOLUTE EOSINOPHIL COUNT 0.1 /CUMM (0.0-0.7); ABSOLUTE GRANULOCYTE CT 4.1 /CUMM (1.4-6.5); ABSOLUTE LYMPH COUNT 1.1 /CUMM (1.2-3.4); ABSOLUTE MONOCYTE COUNT 0.4 /CUMM (0.10-0.60); BASOPHIL % 0.2 % (0.0-2.0); EOSINOPHIL % 1.3 % (0-5); GRANULOCYTE % 71.4 % (42.2-75.2); HEMATOCRIT 26.2 % (42-52); MEAN CORPUSCULAR HGB 26.6 PG (27.0-31.0); MEAN CORPUSCULAR HGB CONC 33.1 G/DL (33.0-37.0); MEAN CORPUSCULAR VOLUME 80.4 FL (80.0-94.0); MEAN PLATELET VOLUME 9.9 FL (7.4-10.4); PLATELET COUNT 149 /CUMM (130-400); RBC DISTRIBUTION WIDTH 16.2 % (11.5-14.5); RED BLOOD CELL CT 3.26 /CUMM (4.70-6.10); WHITE BLOOD CELL COUNT 5.7 /CUMM (4.8-10.8)
--- NOTE | 2017-04-10 11:53 | PN- Housestaff ---
Subjective Follow-up For: ESRD on Dialysis Bao cath infection and removal of the catheter on Tuesday Complaints: Patient complains of heaviness on his chest Tele-Events Since Last Visit: no event note NSRR; 76-96 b/min Subjective: Subjective Patient seen and examined. Patient had his last dilysis on Tuesday, very short, and he missed one of his dialysis sessions last week. When I saw the ptient, he was sleeping comfortabely in his bed/ w/o O2. He denies any chest pain, palpitation, NVD or SOB but reports chest heaviness. Obejective: VS are stable. Patient current weight is 216 lb ( post dialysis is about 209lb). Urine out put over night was 450 ml and he is on po lasix. Exam: General: Patient awake alert oriented without any distress CVS: S1 plus S2 without any murmur or gallops, no JVD Chest: Basal crepitations bilaterally but more pronounced on the left side. No wheezing, no crackles, Dialysis catheter has been removed Abdomen: Soft nontender, bowel sound present MANAGER PROPERTY: Awake alert oriented without any focal neuro deficit and follows command appropriately Extremities: No edema; no clubbing or cyanosis noted Pertinent data: Tip of the catheter: Staph Coag negative Assessment and plan: 67 year old Man with PMH of CAD s/p stents (Oct 2016), COPD, T2DM, neuropathy, MILES noncompliant with CPAP, HFpEF, CKD stage 5 s/p AV fistula (January 2017), multiple admits for chest pain, dyspnea and elevated troponins, [facility] for [facility] overload (03/15-03/23). 1. Bacteremia 2/2 to catheter infection on Vancomycin 3 times per week dose during dialysis 2. History of end-stage renal disease on dialysis, Tuesday and Tuesday. * Cath was D/C yesterday, patient is scheduled for catheter placement * 1000 ml fluid restriction * daily weight showes increase to 215 from baseline 209lb, Calling nephrology regarding giving one dose on IV lasix; however, patient is clinically stable. NPO overnight for catheter placement; Doplex Ultrasound of the left brachial artery is still pending (Attending, Dr. Sotelo, contacted the radiology department. He has a clear promise from [facility] that scan will be read by the end of today. ) 3. Bactreremia. On vancomycine, dosed on dialysis days. Re-dose with Vancomycin on April 11 after dialysis per protocol 4. Elevated Troponin: no active cardiac issues, possibly due to ESRD, toll ticket clerk has not seen him since . Review of Systems Constitutional: Reports: see HPI. Objective Last 24 Hrs of Vital Signs/I&O Vital Signs Date Time Temp Pulse Resp B/P B/P Pulse O2 O2 Flow FiO2 Mean Ox Delivery Rate 04/10 913 62 120/80 04/10 09 62 120/80 04/10 0912 62 120/80 04/10 0912 62 120/80 04/10 0700 97.8 65 20 120/80 98 Nasal 2.0L Cannula 04/09 2143 97.8 61 20 126/62 94 Room Air 04/09 2120 61 126/62 04/09 1600 92 Room Air 04/09 1530 98.2 63 20 112/60 92 Room Air Intake & Output 04/10 1600 04/10 0800 04/10 0000 Intake Total 100 340 Output Total 200 250 Balance -100 90 Intake, Oral 100 340 Number 1 1 Bowel Movements Output, Urine 200 250 Patient 215 lb Weight Weight Chair scale Measurement Method Physical Exam General Appearance: Alert, Oriented X3, Cooperative, No Acute Distress HEENT: Atraumatic, PERRLA, EOMI Cardiovascular: Normal S1, Normal S2 Lungs: decreased air entry at the bases B/L Abdomen: Soft, No Tenderness Extremities: No Cyanosis, No Edema Assessment/Plan Assessment: discussed above Problem List: 1. Infection, dialysis vascular access Pain Ratin Pain Location: n/a Pain Goal: Remain pain free Pain Plan: tylenol as needed Tomorrow's Labs & Rationales: cbc bep bacteremia and low sodium
[2017-04-10 13:09] VITALS: BP 144/70
--- NOTE | 2017-04-10 13:52 | ULTRASOUND REPORT ---
EXAMINATION: US DUPLEX UPPER EXTREMITY ARTERY/GRAFT LIMITED, LEFT CLINICAL INFORMATION: End-stage renal disease status post left brachiocephalic AV fistula. Possible stenosis in cephalic vein fistula. COMPARISON: 03/13/2017 TECHNIQUE: Grayscale and color Doppler and spectral Doppler imaging of the left upper extremity hemodialysis access shunt was performed. FINDINGS: The left subclavian artery and axillary arteries are patent with low resistant waveforms. The brachiocephalic AV fistula is patent with low resistance waveforms. The left mid and distal brachial arteries are patent beyond the anastomosis of the brachiocephalic fistula. IMPRESSION: The left upper extremity brachiocephalic AV fistula appears patent. No clear sonographic evidence of stenosis.
[2017-04-10 22:00] VITALS: BP 122/68
--- NOTE | 2017-04-11 07:13 | PN- Housestaff ---
Subjective Follow-up For: ESRD staph coag neg bacteremia Complaints: no complaints Tele-Events Since Last Visit: Normal sinus rhythm, heart rate 64-no overnight events were noted. Subjective: The patient was comfortable this morning. He stated that he was short of breath , this a.m. Remained afebrile overnight. He did not have any chills or rigors overnight. Review of Systems Constitutional: Reports: see HPI. Objective Last 24 Hrs of Vital Signs/I&O Vital Signs Date Time Temp Pulse Resp B/P B/P Pulse O2 O2 Flow FiO2 Mean Ox Delivery Rate 04/11 0846 97 Nasal 2.0L Cannula 04/11 0720 98.7 65 18 134/76 99 Nasal Cannula 04/11 0000 Nasal 2.0L Cannula 04/10 2200 97.9 74 18 122/68 95 Room Air 04/10 1600 94 Room Air 04/10 1309 97.9 59 20 144/70 94 Room Air Intake & Output 04/11 1600 04/11 0800 07 0000 Intake Total 0 490 Output Total 550 1000 Balance -550 -510 Intake, IV 0 0 Intake, Oral 0 490 Number 0 0 Bowel Movements Output, Urine 550 1000 Patient 209 lb Weight Weight Chair scale Measurement Method Physical Exam General Appearance: Alert, Oriented X3, Cooperative, No Acute Distress Skin: No Rashes, no erythema or tenderness at the panchito cath removal site. Skin Temp/Moisture Exam: Warm/Dry Sepsis Skin Exam (color): Normal for Ethnicity HEENT: Atraumatic, PERRLA, EOMI, Mucous Membr. moist/pink Neck: Supple, No JVD, No thryomegaly Lymphatic: Cervical nl Cardiovascular: Regular Rate, Normal S1, Normal S2 Lungs: Normal Air Movement Abdomen: Normal Bowel Sounds, Soft, No Tenderness Neurological: Normal Speech, Normal Tone, Sensation Intact, Cranial Nerves 3-12 NL Extremities: No Cyanosis, No Edema, Normal Pulses, av fistula in place Vascular: Pulses Symmetrical Sepsis Peripheral Pulse Location: Dorsalis Pedis Sepsis Peripheral Pulse Exam: Normal Current Medications: Current Medications Sig/Julisas Start time Last Medication Dose Route Stop Time Status Admin Acetaminophen 650 MG Q6P PRN 03/270 AC 04/02 PO 1657 Acetaminophen 1,000 MG Q8P PRN 03/27 2200 AC IV Albuterol Sulfate 2 PUF Q4P PRN 03/27 2215 AC INH Alprazolam 0.5 MG BID PRN 04/04 1030 DC 04/10 PO 04/11 1029 2203 Aspirin Buffered 81 MG AT BEDTIME 03/28 2200 AC 04/10 PO 2204 Atorvastatin Calcium 80 MG AT BEDTIME 03/28 2200 AC 04/10 PO 2204 Benzonatate 100 MG TID 04/05 1000 AC 04/10 PO 2203 Budesonide/ 2 PUF BID 03/27 2211 AC 04/10 Formoterol Fumarate INH 2204 Clonidine 0.1 MG BID 03/28 1000 AC 04/10 PO 2204 Epoetin [place] 8,000 UNIT TuThSa PRN 03/29 1100 AC IV Famotidine 20 MG DAILY 04/03 1000 AC 04/10 PO 0913 Fentanyl Citrate 0 .STK-MED ONE 04/11 1115 DC .ROUTE Folic Acid 1 MG DAILY 03/28 1000 AC 04/10 PO 0912 Furosemide 80 MG DAILY 03/28 1000 AC 04/10 PO 0913 Insulin Aspart 0 TIDAC 03/28 0800 AC 04/10 SC 1746 Isosorbide 60 MG DAILY 03/28 1000 AC 04/10 Mononitrate PO 0912 Levothyroxine Sodium 0.2 MG DAILY AC 03/28 0700 AC 04/11 PO 0632 Melatonin 3 MG AT BEDTIME 04/09 2200 AC 04/10 PO 2204 Metoprolol Tartrate 100 MG DAILY 03/28 1000 AC 04/10 PO 0913 Midazolam HCl 0 .STK-MED ONE 04/11 1115 DC .ROUTE Polyethylene Glycol 17 GM DAILY 03/28 1353 AC 03/30 PO 1139 Prochlorperazine 10 MG Q6-PRN PRN 03/27 2215 AC 04/07 IV 1628 Ramelteon 8 MG ONE TIME ONE 04/10 2130 DC 04/10 PO 04/10 2131 2203 Senna/Docusate Sodium 2 TAB AT BEDTIME 03/28 2200 AC 04/09 PO 2122 Sertraline HCl 100 MG DAILY 03/28 1000 AC 04/10 PO 0913 Sevelamer Carbonate 1,600 MG WM 03/30 1700 AC 04/10 PO 1746 Simethicone 80 MG Q8 04/02 1402 AC 04/11 PO 0632 Tamsulosin HCl 0.4 MG DAILY 03/28 1000 AC 04/10 PO 0912 Trazodone HCl 150 MG QPM 03/28 2200 AC 04/10 PO 2204 Trimethobenzamide HCl 200 MG 4 TIMES/DAY PRN 03/31 1730 AC 04/01 IM 2056 Vancomycin HCl See Dose MoThSa PRN 04/11 1200 AC Insts (1) IV Dose Instructions: (1)Vancomycin HCl: DOSE BASED ON RANDOM VANCO LEVELS Last 24 Hrs of Lab/Angus Results Last 24 Hrs of Labs/Mics: Laboratory Tests 04/11/17 1210: Vancomycin Trough Pending 04/11/17 0650: Anion Gap 12, Estimated GFR 17 L, BUN/Creatinine Ratio 9.2, CBC w Diff NO MAN DIFF REQ, RBC 3.43 L, MCV 80.6, MCH 26.9 L, RDW 16.2 H, MPV 9.9, Gran % 78.4 H, Lymphocytes % 15.8 L, Monocytes % 4.2, Eosinophils % 1.4, Basophils % 0.2, Absolute Granulocytes 4.6, Absolute Lymphocytes 0.9 L, Absolute Monocytes 0.2, Absolute Eosinophils 0.1, Absolute Basophils 0, PUBS MCHC 33.4 Assessment/Plan Assessment: He is a 67 year old man with PMH of CAD s/p stents (Oct 2016), COPD, T2DM, neuropathy, MILES noncompliant with CPAP, HFpEF, CKD stage 5 s/p AV fistula (January 2017), multiple admits for chest pain, dyspnea and elevated troponins, initiated on HD (TTS) via [facility] during recent admission for fluid overload (03/15-03/23) is being currently managed for staph coag negative bacteremia likely from the catheter tip. In the last 24 hours, vitals remained stable. Lab findings indicated no leukocytosis, H&H stable hemoglobin 9.3, platelets 180, electrolytes within normal limits. BUN 33, serum creatinine 3.6. Microbiology findings revealed growth of coag-negative staph sensitive to cefazolin. Differential diagnosis: #1 bacteremia #2 volume overload #3 end-stage renal disease on hemodialysis. Below is the problem list and plan: #1 staph coag negative bacteremia-likely source is the tip of a rash catheter, which was removed. Srinath catheter was placed this a.m. Patient received vancomycin day 13. Discussed with Hollis Larios MD about the duration of treatment for bacteremia with coag negative staph-who recommended discontinuing vancomycin dose after being administered on 04/14/2017. Blood cultures remain negative so far. Continue to monitor vitals closely. #2 hemodialysis-for end-stage renal disease: Continue hemodialysis as per schedule, from now on. Underwent dialysis today, and was dosed with vancomycin. Next hemodialysis on 04/14/2017, aspirin nephrology. Continue Renvela. #3 history of coronary artery disease, elevated troponin-differential diagnosis include cardiac involvement or end-stage renal disease. Continue aspirin and restart Plavix. #4 hypertension-continue Lopressor, isosorbide mononitrate, Lasix, and clonidine. Blood pressure adequately controlled on current regimen. #5 diabetes-blood sugar adequately controlled on current sliding scale insulin only. Problem List: 1. Infection, dialysis vascular access 2. Septicemia 3. Congestive heart failure with preserved left ventricular function, NYHA class 1 4. COPD (chronic obstructive pulmonary disease) Pain Ratin Pain Location: neck Pain Goal: Pain 4 or less Pain Plan: tylenol Tomorrow's Labs & Rationales: cbc bep
[2017-04-11 07:20] VITALS: BP 134/76
[2017-04-11 08:08] LABS: ABSOLUTE BASOPHIL COUNT 0 /CUMM (0.0-0.2); ABSOLUTE EOSINOPHIL COUNT 0.1 /CUMM (0.0-0.7); ABSOLUTE GRANULOCYTE CT 4.6 /CUMM (1.4-6.5); ABSOLUTE LYMPH COUNT 0.9 /CUMM (1.2-3.4); ABSOLUTE MONOCYTE COUNT 0.2 /CUMM (0.10-0.60); BASOPHIL % 0.2 % (0.0-2.0); EOSINOPHIL % 1.4 % (0-5); GRANULOCYTE % 78.4 % (42.2-75.2); HEMATOCRIT 27.7 % (42-52); MEAN CORPUSCULAR HGB 26.9 PG (27.0-31.0); MEAN CORPUSCULAR HGB CONC 33.4 G/DL (33.0-37.0); MEAN CORPUSCULAR VOLUME 80.6 FL (80.0-94.0); MEAN PLATELET VOLUME 9.9 FL (7.4-10.4); PLATELET COUNT 180 /CUMM (130-400); RBC DISTRIBUTION WIDTH 16.2 % (11.5-14.5); RED BLOOD CELL CT 3.43 /CUMM (4.70-6.10); WHITE BLOOD CELL COUNT 5.8 /CUMM (4.8-10.8)
--- NOTE | 2017-04-11 10:23 | PN- Infect Dx ---
Subjective Subjective: Afebrile. He does report increased shortness of breath but has had no further rigors since removal of the Bao catheter. Objective Last 24 Hrs of Vital Signs/I&O Vital Signs Date Time Temp Pulse Resp B/P B/P Pulse O2 O2 Flow FiO2 Mean Ox Delivery Rate 04/11 0846 97 Nasal 2.0L Cannula 04/11 0720 98.7 65 18 134/76 99 Nasal Cannula 04/11 0000 Nasal 2.0L Cannula 04/10 2200 97.9 74 18 122/68 95 Room Air 04/10 1600 94 Room Air 04/10 1309 97.9 59 20 144/70 94 Room Air Intake & Output 04/11 1600 04/11 0800 07 0000 Intake Total 0 490 Output Total 550 1000 Balance -550 -510 Intake, IV 0 0 Intake, Oral 0 490 Number 0 0 Bowel Movements Output, Urine 550 1000 Patient 209 lb Weight Weight Chair scale Measurement Method Physical Exam Other Physical Findings: He appears comfortable in no acute distress Neck crusted lesion at the site of the recent Bao catheter, with no erythema or tenderness Lungs are clear Heart regular rhythm with no murmur Extremities no cyanosis, clubbing or edema Results Last 24 Hours of Lab Results: Laboratory Tests 04/11 04/10 0650 1105 Chemistry Sodium (137 - 145 mmol/L) 134 L 135 L Potassium (3.5 - 5.1 mmol/L) 4.0 4.4 Chloride (98 - 107 mmol/L) 98 99 Carbon Dioxide (22 - 30 mmol/L) 24 26 Anion Gap (5 - 16) 12 9 BUN (9 - 20 mg/dL) 33 H 30 H Creatinine (0.7 - 1.2 mg/dL) 3.6 H 3.5 H Estimated GFR (>60 ml/min) 17 L 18 L BUN/Creatinine Ratio (7 - 25 %) 9.2 8.6 Hematology CBC w Diff NO MAN DIFF REQ NO MAN DIFF REQ WBC (4.8 - 10.8 /CUMM) 5.8 5.7 RBC (4.70 - 6.10 /CUMM) 3.43 L 3.26 L Hgb (14.0 - 18.0 G/DL) 9.3 L 8.7 L Hct (42 - 52 %) 27.7 L 26.2 L MCV (80.0 - 94.0 FL) 80.6 80.4 MCH (27.0 - 31.0 PG) 26.9 L 26.6 L RDW (11.5 - 14.5 %) 16.2 H 16.2 H Plt Count (130 - 400 /CUMM) 180 149 MPV (7.4 - 10.4 FL) 9.9 9.9 Gran % (42.2 - 75.2 %) 78.4 H 71.4 Lymphocytes % (20.5 - 51.1 %) 15.8 L 19.3 L Monocytes % (1.7 - 9.3 %) 4.2 7.8 Eosinophils % (0 - 5 %) 1.4 1.3 Basophils % (0.0 - 2.0 %) 0.2 0.2 Absolute Granulocytes (1.4 - 6.5 /CUMM) 4.6 4.1 Absolute Lymphocytes (1.2 - 3.4 /CUMM) 0.9 L 1.1 L Absolute Monocytes (0.10 - 0.60 /CUMM) 0.2 0.4 Absolute Eosinophils (0.0 - 0.7 /CUMM) 0.1 0.1 Absolute Basophils (0.0 - 0.2 /CUMM) 0 0 PUBS MCHC (33.0 - 37.0 G/DL) 33.4 33.1 Last 24 Hours of Angus Results: Bao catheter tip April 08 greater than 15 colonies of coag-negative Staph Blood cultures 2 April 07 remain negative Recent Imaging Studies: Arterial Doppler of the left upper extremity April 09 reveals a brachiocephalic AV fistula which appears patent Assessment/Plan Impression: Stable status post removal of Bao catheter 3 days ago because of recurrent rigors, which appear to have resolved with its removal. As the catheter tip culture was positive for coag negative Staph, he likely did have line sepsis and suspect that this was the source of his rigors, with 2 blood cultures also positive for coag-negative Staph. He remains afebrile with white blood cell count normal on Vancomycin now Day 10 of treatment. His dyspnea may suggest fluid overload secondary to his renal failure. His AV fistula is apparently patent but it is not clear if it is able to be used and this will need to be discussed with vascular surgery. Suggestion: 1. Vascular surgery follow-up regarding whether the fistula can be used 2. Placement of a new dialysis catheter today if fistula cannot be used 3. Re-dose with Vancomycin today after dialysis per protocol
--- NOTE | 2017-04-11 10:37 | PN- Att Addend ---
Attending Addendum Attending Brief Note Patient seen and examined. Plan of care discussed with the medical team and the patient. Available lab work and radiology test reports were reviewed. No chills the last 3 days. His catheter was removed last Tuesday. Overall he appears comfortable and denies any fever or chest pain. He reports the mild difficulty breathing today. He is currently on 2 L of oxygen. he denies any pain. He reports mild cough with clear sputum which is apparently chronic. Vital Signs Date Time Temp Pulse Resp B/P B/P Pulse O2 O2 Flow FiO2 Mean Ox Delivery Rate 04/11 0846 97 Nasal 2.0L Cannula 04/11 0720 98.7 65 18 134/76 99 Nasal Cannula 04/11 0000 Nasal 2.0L Cannula 04/10 2200 97.9 74 18 122/68 95 Room Air 04/10 1600 94 Room Air 04/10 1309 97.9 59 20 144/70 94 Room Air Intake & Output 04/11 1600 04/11 0800 07 0000 Intake Total 0 490 Output Total 550 1000 Balance -550 -510 Intake, IV 0 0 Intake, Oral 0 490 Number 0 0 Bowel Movements Output, Urine 550 1000 Patient 209 lb Weight Weight Chair scale Measurement Method Exam: General: Patient awake alert oriented without any distress CVS: S1 plus S2 without any murmur or gallops Chest: Basal crepitations bilaterally but more pronounced on the left side. No wheezing. There is no respiratory distress. Dialysis catheter has been removed Abdomen: Soft nontender, bowel sound present, no guarding or rebound [employer]: Awake alert oriented without any focal neuro deficit and follows command appropriately Extremities: No edema; no clubbing or cyanosis noted No no labs done today Doppler of AV fistula The left upper extremity brachiocephalic AV fistula appears patent. No clear sonographic evidence of stenosis. Assessment * Chills and rigors likely sepsis staph coag negative- patient has been afebrile despite intermittent chills; presumed source was dialysis catheter which has been removed; dialysis catheter tip is growing staph coag negative. * Mild shorts of breath likely fluid buildup * Elevated troponin presumably from chronic kidney disease; CAD * Diabetes * End-stage renal disease on hemodialysis * Recent acute gastritis likely viral * Acute and chronic anemia * Transaminitis * Hyponatremia * Thrombocytopenia Plan * Continue vancomycin with dialysis for a total of 2 weeks. * Plan for dialysis catheter insertion and dialysis today * Limit fluid intake 1 L per day * Continue oxygen and taper as tolerated * Next dialysis on Tuesday * Ambulate patient with a cane * Potential discharge for tomorrow
--- NOTE | 2017-04-11 12:28 | PN- Nephrology ---
Assessment/Plan Assessment: 1, ESRD: HD in progress - UF 3 liters as BP allows 2. Line sepsis: coag neg Staph via BC & cath tip; continue IV Vanco Suggestion: next HD Thur IV Vanco per protocol Subjective Subjective: Mild SOB - no CP No rigors - no fever New R IJ tunneled HD cath placed this morning Objective Vital Signs and I&Os Vital Signs Date Time Temp Pulse Resp B/P B/P Pulse O2 O2 Flow FiO2 Mean Ox Delivery Rate 04/11 0846 97 Nasal 2.0L Cannula 04/11 0720 98.7 65 18 134/76 99 Nasal Cannula 04/11 0000 Nasal 2.0L Cannula 04/10 2200 97.9 74 18 122/68 95 Room Air 04/10 1600 94 Room Air 04/10 1309 97.9 59 20 144/70 94 Room Air Intake & Output 04/11 1600 04/11 0400 04/10 1600 04/10 0400 04/09 1600 04/09 0400 Intake Total 0 490 420 198 294 5216 Output Total 550 1000 625 250 500 75 Balance -550 -510 -205 90 160 925 Intake, IV 0 0 250 Intake, Oral 0 490 420 340 660 750 Number 0 0 2 1 Bowel Movements Output, Urine 550 1000 625 250 500 75 Patient 209 lb 215 lb 214 lb 213 lb Weight Weight Chair scale Chair scale Chair scale Chair scale Measurement Method Physical Exam General Appearance: well developed/nourished, no apparent distress Head: atraumatic, normal appearance Ears, Nose, Throat: normal ENT inspection Neck: R IJ cath tunneled subclavianm location Respiratory: quiet respiration, lungs clear Cardiovascular: regular rate/rhythm Abdomen: soft, non-tender, no organomegaly Extremities: pedal edema, + bruit KAREY AVF - not mature Neurologic/Psychiatric: awake, alert, oriented x 3 Current Medications: Current Medications Sig/Julissa Start time Last Medication Dose Route Stop Time Status Admin Acetaminophen 650 MG Q6P PRN 03/27 2200 AC 04/02 PO 1656 Acetaminophen 1,000 MG Q8P PRN 03/27 2200 AC IV Albuterol Sulfate 2 PUF Q4P PRN 03/27 2215 AC INH Alprazolam 0.5 MG BID PRN 04/04 1030 DC 04/10 PO 04/11 1029 2203 Aspirin Buffered 81 MG AT BEDTIME 03/28 2200 AC 04/10 PO 2204 Atorvastatin Calcium 80 MG AT BEDTIME 03/28 2200 AC 04/10 PO 2204 Benzonatate 100 MG TID 04/05 1000 AC 04/10 PO 2203 Budesonide/ 2 PUF BID 03/27 2211 AC 04/10 Formoterol Fumarate INH 2204 Clonidine 0.1 MG BID 03/28 1000 AC 04/10 PO 2204 Epoetin [place] 8,000 UNIT TuThSa PRN 03/29 1100 AC IV Famotidine 20 MG DAILY 04/03 1000 AC 04/10 PO 0913 Fentanyl Citrate 0 .STK-MED ONE 04/11 1115 DC .ROUTE Folic Acid 1 MG DAILY 03/28 1000 AC 04/10 PO 0912 Furosemide 80 MG DAILY 03/28 1000 AC 04/10 PO 0913 Insulin Aspart 0 TIDAC 03/28 0800 AC 04/10 SC 1746 Isosorbide 60 MG DAILY 03/28 1000 AC 04/10 Mononitrate PO 0912 Levothyroxine Sodium 0.2 MG DAILY AC 03/28 0700 AC 04/11 PO 0632 Melatonin 3 MG AT BEDTIME 04/09 2200 AC 04/10 PO 2204 Metoprolol Tartrate 100 MG DAILY 03/28 1000 AC 04/10 PO 0913 Midazolam HCl 0 .STK-MED ONE 04/11 1115 DC .ROUTE Polyethylene Glycol 17 GM DAILY 03/28 1353 AC 03/30 PO 1139 Prochlorperazine 10 MG Q6-PRN PRN 03/27 2215 AC 04/07 IV 1628 Ramelteon 8 MG ONE TIME ONE 04/10 2130 DC 04/10 PO 04/10 2131 220 Senna/Docusate Sodium 2 TAB AT BEDTIME 03/28 2200 AC 04/09 PO 2122 Sertraline HCl 100 MG DAILY 03/28 1000 AC 04/10 PO 0913 Sevelamer Carbonate 1,600 MG WM 03/30 1700 AC 04/10 PO 1746 Simethicone 80 MG Q8 04/02 1402 AC 04/11 PO 0632 Tamsulosin HCl 0.4 MG DAILY 03/28 1000 AC 04/10 PO 0912 Trazodone HCl 150 MG QPM 03/28 2200 AC 04/10 PO 2204 Trimethobenzamide HCl 200 MG 4 TIMES/DAY PRN 03/31 1730 AC 04/01 IM 2056 Vancomycin HCl See Dose MoThSa PRN 04/11 1200 AC Insts (1) IV Dose Instructions: (1)Vancomycin HCl: DOSE BASED ON RANDOM VANCO LEVELS Results Pertinent Lab Results: Laboratory Tests 04/11 04/10 0650 1105 Chemistry Sodium (137 - 145 mmol/L) 134 L 135 L Potassium (3.5 - 5.1 mmol/L) 4.0 4.4 Chloride (98 - 107 mmol/L) 98 99 Carbon Dioxide (22 - 30 mmol/L) 24 26 Anion Gap (5 - 16) 12 9 BUN (9 - 20 mg/dL) 33 H 30 H Creatinine (0.7 - 1.2 mg/dL) 3.6 H 3.5 H Estimated GFR (>60 ml/min) 17 L 18 L BUN/Creatinine Ratio (7 - 25 %) 9.2 8.6 Hematology CBC w Diff NO MAN DIFF REQ NO MAN DIFF REQ WBC (4.8 - 10.8 /CUMM) 5.8 5.7 RBC (4.70 - 6.10 /CUMM) 3.43 L 3.26 L Hgb (14.0 - 18.0 G/DL) 9.3 L 8.7 L Hct (42 - 52 %) 27.7 L 26.2 L MCV (80.0 - 94.0 FL) 80.6 80.4 MCH (27.0 - 31.0 PG) 26.9 L 26.6 L RDW (11.5 - 14.5 %) 16.2 H 16.2 H Plt Count (130 - 400 /CUMM) 180 149 MPV (7.4 - 10.4 FL) 9.9 9.9 Gran % (42.2 - 75.2 %) 78.4 H 71.4 Lymphocytes % (20.5 - 51.1 %) 15.8 L 19.3 L Monocytes % (1.7 - 9.3 %) 4.2 7.8 Eosinophils % (0 - 5 %) 1.4 1.3 Basophils % (0.0 - 2.0 %) 0.2 0.2 Absolute Granulocytes (1.4 - 6.5 /CUMM) 4.6 4.1 Absolute Lymphocytes (1.2 - 3.4 /CUMM) 0.9 L 1.1 L Absolute Monocytes (0.10 - 0.60 /CUMM) 0.2 0.4 Absolute Eosinophils (0.0 - 0.7 /CUMM) 0.1 0.1 Absolute Basophils (0.0 - 0.2 /CUMM) 0 0 PUBS MCHC (33.0 - 37.0 G/DL) 33.4 33.1 04/09 04/08 0630 1509 Chemistry Sodium (137 - 145 mmol/L) 131 L Potassium (3.5 - 5.1 mmol/L) 3.7 Chloride (98 - 107 mmol/L) 96 L Carbon Dioxide (22 - 30 mmol/L) 25 Anion Gap (5 - 16) 10 BUN (9 - 20 mg/dL) 23 H Creatinine (0.7 - 1.2 mg/dL) 2.7 H Estimated GFR (>60 ml/min) 24 L BUN/Creatinine Ratio (7 - 25 %) 8.5 Calcium (8.4 - 10.2 mg/dL) 7.5 L Hematology CBC w Diff NO MAN DIFF REQ MAN DIFF ORDERED WBC (4.8 - 10.8 /CUMM) 4.7 L 2.5 L RBC (4.70 - 6.10 /CUMM) 3.44 L 3.08 L Hgb (14.0 - 18.0 G/DL) 9.2 L 8.2 L Hct (42 - 52 %) 27.9 L 24.6 L MCV (80.0 - 94.0 FL) 81.3 80.0 MCH (27.0 - 31.0 PG) 26.7 L 26.6 L RDW (11.5 - 14.5 %) 16.0 H 16.1 H Plt Count (130 - 400 /CUMM) 132 105 L MPV (7.4 - 10.4 FL) 11.0 H 9.8 Gran % (42.2 - 75.2 %) 58.8 91.1 H Lymphocytes % (20.5 - 51.1 %) 28.4 7.2 L Monocytes % (1.7 - 9.3 %) 10.9 H 1.2 L Eosinophils % (0 - 5 %) 1.2 0.4 Basophils % (0.0 - 2.0 %) 0.7 0.1 Absolute Granulocytes (1.4 - 6.5 /CUMM) 2.8 2.3 Segmented Neutrophils (42.2 - 75.2 %) 92 H Absolute Lymphocytes (1.2 - 3.4 /CUMM) 1.3 0.2 L Lymphocytes (20.5 - 51.1 %) 6 L Monocytes (1.7 - 9.3 %) 1 L Absolute Monocytes (0.10 - 0.60 /CUMM) 0.5 0 L Absolute Eosinophils (0.0 - 0.7 /CUMM) 0.1 0 Basophils (0.0 - 2.0 %) 1 Absolute Basophils (0.0 - 0.2 /CUMM) 0 0 Platelet Estimate (ADEQUATE) DECREASED Poikilocytosis FEW Anisocytosis 1+ Macrocytic Cells FEW Ovalocytes FEW PUBS MCHC (33.0 - 37.0 G/DL) 32.8 L 33.3 Toxicology Random Vancomycin (ug/ml) 10.4 04/08 04/08 1348 1347 Toxicology Random Vancomycin Cancelled Cancelled
--- NOTE | 2017-04-11 16:03 | ULTRASOUND REPORT ---
PROCEDURE: ULTRASOUND AND FLUOROSCOPICALLY GUIDED RIGHT INTERNAL JUGULAR VEIN TUNNELED PERMACATHETER PLACEMENT Interventional radiologist: Kevin Marquez M.D. CLINICAL HISTORY: 67-year-old male with renal failure and nonmaturing fistula. Replacement of tunneled hemodialysis catheter requested. COMPARISON: Chest CT 03/31/2017 and prior tunneled hemodialysis catheter placement 03/17/2017 SEDATION: Intravenous conscious sedation was performed with full clinical nurse monitoring. An independent third-alliance party monitor nurse was utilized for full clinical nurse monitoring. The total sedation time was 25 minutes. A total of 1 mg of Versed and 50 mcg of fentanyl was utilized. FLUOROSCOPIC TIME: 4.3 TECHNIQUE: Informed consent was obtained from the patient prior to the procedure. During this process, the procedure and potential alternatives were explained along with the intended outcome and benefits. The risks of the procedure, including the possibility of an unsuccessful procedure, as well as the risk of not doing the procedure were discussed. The patient was given the opportunity to ask questions regarding the procedure and appeared competent to make medical decisions. A signed consent form which documents this discussion was placed in the medical record. Following informed consent the patient was placed supine on the fluoroscopic table. A timeout procedure was performed. The right neck and chest were prepped and draped in usual sterile fashion. All elements of maximal sterile barrier technique were followed including use of cap, mask, sterile gown, sterile gloves, a sterile full body drape and hand hygiene. The skin was prepared with 2% chlorhexidine for cutaneous antisepsis and sterile ultrasound preparation with sterile gel and probe cover was performed when applicable. Using ultrasound guidance the right internal jugular vein was localized. Ultrasound was utilized to assess the vascular structures for access. A standard puncture into the right internal jugular vein was performed with a Micro-Stick system. Measurements were taken and the wire advanced down the IVC to confirm venous placement. 1% lidocaine with epinephrine was placed along the anterior chest wall tunneling site. A linear incision was made. The 27 cm tip to cuff tunneled hemodialysis catheter was tunneled in the subcutaneous tissues, exiting at the venotomy site. Serial dilatation was performed over the 0.035 inches wire. A peel-away sheath was placed over the wire and the catheter advanced down the peel-away sheath. The peel-away sheath was removed. Fluoroscopic imaging confirmed location of the catheter tip within the right atrium. Dermabond was utilized to close the venotomy site. Silk suture was utilized for catheter securement. The catheter was flushed with 500 units of heparin split between the 2 lumens for dwell. The patient tolerated the procedure well. The patient was transferred to the recovery room in good condition. ULTRASOUND-GUIDED VASCULAR ACCESS: Ultrasound was used to identify the right internal jugular vein. The right internal jugular vein was confirmed to be patent. Real time imaging confirmed needle access into the right internal jugular vein. An image was saved for permanent recording in PACS. IMPRESSION: Successful placement of 27 cm tip to cuff tunneled hemodialysis catheter using fluoroscopic and ultrasound guidance.
--- NOTE | 2017-04-11 22:53 | Discharge Summary ---
Hospital Course Allergies: Coded Allergies: Iodinated Contrast- Oral and IV Dye (PER PT STATES HIS KIDNEYS ARE SHOT HE IS ON DIALYSIS 03/27/17) morphine (Mild, LOOPY 01/18/17) hydromorphone (DEPRESSED RESPIRATIONS 01/18/17) Discharge Instructions General Discharge Information Code Status: Full Code Medications at Discharge Discharge Medications: Continue taking these medications: Liraglutide (Victoza 3-Zeus) 0.6 MG/0.1 ML PEN.INJCTR 1.8 Milligram ORAL TAKE AT BEDTIME Qty = 9 Comments: Last Taken: 03/23/17 Time: 11:30 AM Metoprolol Tartrate (Metoprolol Tartrate) 100 MG TABLET 1 Tablet ORAL DAILY Qty = 14 Comments: Last Taken: 03/23/17 Time:11:30 AM Clonidine HCl (Clonidine HCl) 0.1 MG TABLET 1 Tablet ORAL TWICE DAILY Qty = 60 Comments: NOT GIVEN IN HOSPITAL Trazodone HCl (Trazodone HCl) 150 MG TABLET 1 Tablet ORAL Every night Qty = 35 Comments: Last Taken: 03/22/17 Time: 10:00 PM Tamsulosin HCl (Tamsulosin HCl) 0.4 MG CAP.ER.24H 1 Capsule ORAL DAILY Qty = 30 Comments: NOT GIVEN IN HOSPITAL Folic Acid (Folic Acid) 1 MG TABLET 1 Tablet ORAL DAILY Qty = 30 Comments: Last Taken: 03/23/17 Time:11:30 AM Aspirin (Ecotrin*) 81 MG TABLET.DR 1 Tablet ORAL TAKE AT BEDTIME Comments: Last Taken: 03/23/17 Time 11:00 AM Atorvastatin Calcium (Lipitor) 80 MG TABLET 1 Tablet ORAL TAKE AT BEDTIME Comments: Last Taken: 03/22/17 Time: 6:30 PM Sevelamer Carbonate (Renvela) 800 MG TABLET 2 Tablet ORAL THREE TIMES DAILY Comments: NOT GIVEN IN HOSPITAL Alprazolam (Xanax) 0.5 MG TABLET 1 Tablet ORAL TWICE DAILY as needed for ANXIETY Qty = 15 Comments: Last Taken: 03/23/17 Time: 11:30 AM Budesonide/Formoterol Fumarate (Symbicort 160-4.5 Mcg Inhaler) 160 MCG-4.5 MCG/ ACTUATION HFA.AER.AD 2 Puff Inhale through mouth TWICE DAILY Qty = 1 Instructions: Rinse your mouth after using inhaler. Comments: Last Taken: 03/23/17 Time: 11:30 AM Isosorbide Mononitrate (Isosorbide Mononitrate ER) 60 MG TAB.ER.24H 1 Tablet ORAL DAILY Qty = 30 Comments: Last Taken: 03/23/17 Time: 11:30 AM Levothyroxine Sodium (Synthroid) 200 MCG TABLET 0.2 Milligram ORAL DAILY BEFORE BREAKFAST Days = 28 Comments: Last Taken: 03/23/17 Time: 11:30 AM Ramelteon (Rozerem) 8 MG TABLET 1 Tablet ORAL AT BEDTIME Qty = 30 Comments: Last Taken: 03/22/17 Time: 10:00 PM Furosemide (Lasix) 40 MG TABLET 80 Milligram ORAL DAILY Qty = 30 Comments: Last Taken: 03/23/17 Time: 11:30 AM Insulin Glargine,Hum.rec.anlog (Lantus Solostar) 100 UNIT/ML (3 ML) INSULN.PEN 15 Units SUB-Q TWICE DAILY Qty = 30 Comments: NOT GIVEN IN HOSPITAL Sertraline HCl (Zoloft) 100 MG TABLET 1 Tablet ORAL DAILY Comments: Last Taken:03/23/17 Time:11:30 AM Clopidogrel Bisulfate (Plavix) 75 MG TABLET 75 Milligram ORAL DAILY Qty = 30 Comments: Last Taken:03/23/17 Time:11:30 AM Albuterol Sulfate (Proair Hfa) 90 MCG HFA.AER.AD 2 Puff Inhale through mouth Q4H as needed for SOB Sennosides/Docusate Sodium (Senna S Tablet) 8.6 MG-50 MG TABLET 2 Tablet ORAL TAKE AT BEDTIME Nut.tx.impaired Renal Fxn,Soy (Nepro Carb Steady) (Unknown Strength) LIQUID 120 Milliliters ORAL TWICE DAILY
[2017-04-11 23:00] VITALS: BP 106/80
[2017-04-12 06:41] VITALS: BP 126/70
[2017-04-12 08:09] LABS: ABSOLUTE BASOPHIL COUNT 0 /CUMM (0.0-0.2); ABSOLUTE EOSINOPHIL COUNT 0 /CUMM (0.0-0.7); ABSOLUTE GRANULOCYTE CT 3.2 /CUMM (1.4-6.5); ABSOLUTE LYMPH COUNT 0.9 /CUMM (1.2-3.4); ABSOLUTE MONOCYTE COUNT 0.3 /CUMM (0.10-0.60); BASOPHIL % 0.1 % (0.0-2.0); EOSINOPHIL % 0.6 % (0-5); HEMATOCRIT 26.9 % (42-52); MEAN CORPUSCULAR HGB 26.4 PG (27.0-31.0); MEAN CORPUSCULAR HGB CONC 32.7 G/DL (33.0-37.0); MEAN PLATELET VOLUME 8.9 FL (7.4-10.4); PLATELET COUNT 196 /CUMM (130-400); RBC DISTRIBUTION WIDTH 16.3 % (11.5-14.5); RED BLOOD CELL CT 3.32 /CUMM (4.70-6.10); WHITE BLOOD CELL COUNT 4.4 /CUMM (4.8-10.8)
--- NOTE | 2017-04-12 09:38 | PN- Housestaff ---
Subjective Follow-up For: Coag negative staph sepsis -from dialysis catheter ESRD on hemodialysis Acute on chronic anemia Shortness of breath-probably bilateral pleural effusion Complaints: shortness of breath especially while lying, pain at the site of old Srinath catheter Tele-Events Since Last Visit: Normal sinus rhythm, heart rate between 64-68, PVCs, Subjective: Patient is seen and examined at the bedside. He was complaining of shortness of breath while lying down and abdominal discomfort and pain at the site of old catheter On 04/12/2017, 11:15, patient had an episodes of chills and rigor. Discussed with Hollis Larios MD over the phone. He advised for blood cultures and repeat LFT. The patient persistent to have chills and rigor, then we will plan for CT scan of chest, abdomen and pelvis. Review of Systems Constitutional: Reports: no symptoms, weakness. Respiratory: Reports: short of breath. Gastrointestinal: Reports: abdominal pain, distention. Objective Last 24 Hrs of Vital Signs/I&O Vital Signs Date Time Temp Pulse Resp B/P B/P Pulse O2 O2 Flow FiO2 Mean Ox Delivery Rate 04/12 0917 124/70 04/12 0916 124/70 04/12 0916 124/70 04/12 0915 124/70 04/12 0810 97 Nasal 2.0L Cannula 04/12 0641 98.4 69 20 126/70 91 Room Air 04/12 0000 Nasal 2.0L Cannula 04/11 2348 72 106/80 07 2300 98.5 72 20 106/80 97 Nasal Cannula 04/11 1701 124/74 04/11 1701 128/74 04/11 1701 128/74 04/11 1613 94 Nasal 2.0L Cannula Intake & Output 04/12 1600 04 0800 04/12 0000 Intake Total 100 3350 Output Total 450 Balance -350 3350 Intake, 3000 Dialysate Intake, IV 250 Intake, Oral 100 100 Output, Urine 450 Patient 92.079 kg Weight Physical Exam General Appearance: Alert, Oriented X3, Cooperative, No Acute Distress Cardiovascular: Normal S1, Normal S2 Lungs: decrease air entry at the bases of lungs, Abdomen: Soft, No Tenderness, distended Neurological: Normal Speech Extremities: No Clubbing, No Cyanosis, No Edema Current Medications: Current Medications Sig/Julissa Start time Last Medication Dose Route Stop Time Status Admin Acetaminophen 650 MG .STK-MED ONE 04/11 1725 DC PO 04/11 1726 Acetaminophen 650 MG Q6P PRN 03/27 2200 AC 04/11 PO 1727 Acetaminophen 1,000 MG Q8P PRN 03/27 2200 AC IV Acetaminophen/ 1 TAB ONCE ONE 04/11 2015 DC 04/11 Hydrocodone Bitart PO 04/11 Albuterol Sulfate 2 PUF Q4P PRN 03/27 2215 AC INH Alprazolam 0.5 MG BID PRN 04/12 0930 AC 04/12 PO 04/19 0929 0928 Alprazolam 0.5 MG BID PRN 04/04 1030 DC 04/10 PO 04/11 1029 2203 Aspirin Buffered 81 MG AT BEDTIME 03/28 2200 AC 04/11 PO 2348 Atorvastatin Calcium 80 MG AT BEDTIME 03/28 2200 AC 04/11 PO 2348 Benzonatate 100 MG TID 04/05 1000 AC 04/12 PO 0916 Budesonide/ 2 PUF BID 03/27 2211 AC 04/12 Formoterol Fumarate INH 0921 Clonidine 0.1 MG BID 03/28 1000 AC 04/12 PO 0916 Clopidogrel Bisulfate 75 MG DAILY 04/12 1000 AC 04/12 PO 0915 Epoetin [place] 10,000 UNIT PER PROTOCL PRN 04/11 1345 AC IV Epoetin [place] 8,000 UNIT TuThSa PRN 03/29 1100 DC IV Famotidine 20 MG DAILY 04/03 1000 AC 04/12 PO 0917 Fentanyl Citrate 0 .STK-MED ONE 04/11 1115 DC .ROUTE Folic Acid 1 MG DAILY 03/28 1000 AC 04/12 PO 0916 Furosemide 80 MG DAILY 03/28 1000 AC 04/12 PO 0916 Insulin Aspart 0 TIDAC 03/28 0800 AC 04/10 SC 1746 Isosorbide 60 MG DAILY 03/28 1000 AC 04/12 Mononitrate PO 0917 Levothyroxine Sodium 0.2 MG DAILY AC 03/28 0700 AC 04/12 PO 0526 Melatonin 3 MG AT BEDTIME 04/09 2200 AC 04/11 PO 2348 Metoprolol Tartrate 100 MG DAILY 03/28 1000 AC 04/12 PO 0916 Midazolam HCl 0 .STK-MED ONE 04/11 1115 DC .ROUTE Polyethylene Glycol 17 GM DAILY 04/12 1000 CAN PO Polyethylene Glycol 17 GM DAILY 03/28 1353 AC 03/30 PO 1139 Prochlorperazine 10 MG Q6-PRN PRN 03/27 2215 AC 04/07 IV 1628 Senna/Docusate Sodium 2 TAB AT BEDTIME 03/28 2200 AC 04/11 PO 2347 Sertraline HCl 100 MG DAILY 03/28 1000 AC 04/12 PO 0915 Sevelamer Carbonate 1,600 MG WM 03/30 1700 AC 04/11 PO 1704 Simethicone 80 MG Q8 04/02 1402 AC 04/12 PO 0525 Tamsulosin HCl 0.4 MG DAILY 03/28 1000 AC 04/12 PO 0915 Trazodone HCl 150 MG QPM 03/28 2200 AC 04/11 PO 2347 Trimethobenzamide HCl 200 MG 4 TIMES/DAY PRN 03/31 1730 AC 04/01 IM 2057 Vancomycin HCl See Dose TuThSa PRN 04/14 1000 AC Insts (1) IV Vancomycin HCl 1,000 MG ONCE ONE 04/11 1500 DC 04/11 Sodium Chloride 250 ML IV 04/11 1559 1704 Vancomycin HCl See Dose MoThSa PRN 04/11 1200 DC Insts (2) IV 04/11 2359 Dose Instructions: (1)Vancomycin HCl: DOSE BASED ON RANDOM VANCO LEVELS (2)Vancomycin HCl: DOSE BASED ON RANDOM VANCO LEVELS Last 24 Hrs of Lab/Angus Results Last 24 Hrs of Labs/Mics: Laboratory Tests 04/12/17 0727: Anion Gap 12, Estimated GFR 26 L, BUN/Creatinine Ratio 5.6 L, CBC w Diff NO MAN DIFF REQ, RBC 3.32 L, MCV 81.0, MCH 26.4 L, RDW 16.3 H, MPV 8.9, Gran % 73.0, Lymphocytes % 19.6 L, Monocytes % 6.7, Eosinophils % 0.6, Basophils % 0.1 , Absolute Granulocytes 3.2, Absolute Lymphocytes 0.9 L, Absolute Monocytes 0.3 , Absolute Eosinophils 0, Absolute Basophils 0, PUBS MCHC 32.7 L 04/11/17 1210: Vancomycin Trough 11.7 Assessment/Plan Assessment: He is a 67 year old man with PMH of CAD s/p stents (Oct 2016), COPD, T2DM, neuropathy, MILES noncompliant with CPAP, HFpEF, CKD stage 5 s/p AV fistula (January 2017), multiple admits for chest pain, dyspnea and elevated troponins, initiated on HD (TTS) via [facility] during recent admission for fluid overload (03/15-03/23) is being currently managed for staph coag negative bacteremia likely from the catheter tip. Plan * Patient is not stable for discharge today. * Patient was complaining of orthopnea, so we advised for chest x-ray which showed increase in pulmonary edema. Advised by Dr. Sotelo to give IV Lasix 80 milligrams. Pt already had Lasix 80 milligrams by mouth. Discussed with the earth sciences professor, advised to give an extra dose of injection Lasix 80 milligrams state, get troponins done and patient will have dialysis on Tuesday. * Patient had episode of rigors and chills-discussed with Dr. Larios, advised for blood culture, and repeat LFTs * Discontinue vancomycin dose after being administered on 04/14/2017. * Next hemodialysis on 04/13/2017 * Continue aspirin, Plavix, Lopressor, isosorbide mononitrate, Lasix, clonidine * Novalog according to the sliding scale * Vital signs every shift Problem List: 1. Infection, dialysis vascular access 2. ESRD (end stage renal disease) Pain Ratin Pain Location: right side old catheter acess site Pain Goal: Remain pain free Pain Plan: Avoid NSAIDs Tomorrow's Labs & Rationales: will do blood work up on the day of dialysis DVT/Prophylaxis: mechanical, pharmacological, early ambulation low risk Pain Goal: Remain pain free Pain Plan: Avoid NSAIDs Tomorrow's Labs & Rationales: will do blood work up on the day of dialysis DVT/Prophylaxis: mechanical, pharmacological, early ambulation low risk
--- NOTE | 2017-04-12 09:44 | PN- Att Addend ---
Attending Addendum Attending Brief Note Patient seen and examined. Plan of care discussed with the medical team and the patient. Available lab work and radiology test reports were reviewed. No chills or fever reported. Patient is status post a new dialysis catheter insertion yesterday. He complains of pain over the catheter site today. He also complains of being short of breath especially on lying down. He reports the increase quantity of clear sputum. No chest pains reported. Vital Signs Date Time Temp Pulse Resp B/P B/P Pulse O2 O2 Flow FiO2 Mean Ox Delivery Rate 04/12 0917 124/70 04/12 0916 124/70 04/12 0916 124/70 04/12 0915 124/70 04/12 0810 97 Nasal 2.0L Cannula 04/12 0641 98.4 69 20 126/70 91 Room Air 04/12 0000 Nasal 2.0L Cannula 04/11 2348 72 106/80 04/11 2300 98.5 72 20 106/80 97 Nasal Cannula 04/11 1701 124/74 04/11 1701 128/74 04/11 1701 128/74 04/11 1613 94 Nasal 2.0L Cannula Intake & Output 04/12 1600 04/12 0800 04/12 0000 Intake Total 100 3350 Output Total 450 Balance -350 3350 Intake, 3000 Dialysate Intake, IV 250 Intake, Oral 100 100 Output, Urine 450 Patient 203 lb Weight Exam: General: Patient awake alert oriented without any distress CVS: S1 plus S2 without any murmur or gallops Chest: Basal crepitations bilaterally but more pronounced on the left side. No wheezing. There is no respiratory distress. Dialysis catheter has been removed Abdomen: Soft nontender, bowel sound present, no guarding or rebound [employer] DEVELOP[employer] OFFICER: Awake alert oriented without any focal neuro deficit and follows command appropriately Extremities: No edema; no clubbing or cyanosis noted Laboratory Tests 04/12 04/11 0727 1210 Chemistry Sodium (137 - 145 mmol/L) 138 Potassium (3.5 - 5.1 mmol/L) 3.9 Chloride (98 - 107 mmol/L) 100 Carbon Dioxide (22 - 30 mmol/L) 26 Anion Gap (5 - 16) 12 BUN (9 - 20 mg/dL) 14 Creatinine (0.7 - 1.2 mg/dL) 2.5 H Estimated GFR (>60 ml/min) 26 L BUN/Creatinine Ratio (7 - 25 %) 5.6 L Hematology CBC w Diff NO MAN DIFF REQ WBC (4.8 - 10.8 /CUMM) 4.4 L RBC (4.70 - 6.10 /CUMM) 3.32 L Hgb (14.0 - 18.0 G/DL) 8.8 L Hct (42 - 52 %) 26.9 L MCV (80.0 - 94.0 FL) 81.0 MCH (27.0 - 31.0 PG) 26.4 L RDW (11.5 - 14.5 %) 16.3 H Plt Count (130 - 400 /CUMM) 196 MPV (7.4 - 10.4 FL) 8.9 Gran % (42.2 - 75.2 %) 73.0 Lymphocytes % (20.5 - 51.1 %) 19.6 L Monocytes % (1.7 - 9.3 %) 6.7 Eosinophils % (0 - 5 %) 0.6 Basophils % (0.0 - 2.0 %) 0.1 Absolute Granulocytes (1.4 - 6.5 /CUMM) 3.2 Absolute Lymphocytes (1.2 - 3.4 /CUMM) 0.9 L Absolute Monocytes (0.10 - 0.60 /CUMM) 0.3 Absolute Eosinophils (0.0 - 0.7 /CUMM) 0 Absolute Basophils (0.0 - 0.2 /CUMM) 0 PUBS MCHC (33.0 - 37.0 G/DL) 32.7 L Toxicology Vancomycin Trough (10.0 - 20.0 ug/mL) 11.7 Doppler of AV fistula The left upper extremity brachiocephalic AV fistula appears patent. No clear sonographic evidence of stenosis. Assessment * Chills and rigors likely sepsis staph coag negative- patient has been afebrile despite intermittent chills; presumed source was dialysis catheter which has been removed; dialysis catheter tip is growing staph coag negative. Sensitivities show that it is sensitive to oxacillin. * Mild shorts of breath likely fluid buildup despite dialysis yesterday. * Rule out pneumonia given difficulty breathing and increased sputum production * Elevated troponin presumably from chronic kidney disease; CAD * Diabetes * End-stage renal disease on hemodialysis * Recent acute gastritis likely viral * Acute and chronic anemia * Transaminitis * Hyponatremia * Thrombocytopenia Plan * Please obtain chest x-ray PA and lateral to rule out pneumonia or pleural fluid or CHF * Chest x-ray shows signs of CHF or pleural fluid I would repeat a dose of Lasix IV 80 mg 1 and check with neurology whether patient can be of for dialysis again today * Limit fluid intake 1 L per day * Continue oxygen and taper as tolerated * Ambulate patient with a cane/walker * Please add Tylenol for mild pain; Ultram for moderate pain. Patient can also take Vicodin when necessary for severe pain * Patient not stable for discharge
--- NOTE | 2017-04-12 09:49 | RADIOLOGY REPORT ---
EXAMINATION: XR CHEST CLINICAL INFORMATION: Pleural effusions and pulmonary edema COMPARISON: 03/31/2017. TECHNIQUE: 2 views of the chest were obtained. FINDINGS: Right jugular line extends to the proximal right atrium. Cervical ACDF plate and screws is demonstrated. The cardiac silhouette is enlarged with coronary stents. Lung volumes are decreased. Vascular congestion and increased interstitial markings have worsened since the prior study. A small right pleural effusion and patchy right basilar opacity and trace left pleural effusion and patchy left retrocardiac opacity is identified, similar to prior. Osteophyte formation is seen in the thoracic spine. IMPRESSION: Worsening mild interstitial pulmonary edema. Persistent bibasilar opacities with small pleural effusions.
--- NOTE | 2017-04-12 12:32 | PN- Nephrology ---
Assessment/Plan Assessment: 1, ESRD: no HD need today 2. Line sepsis: coag neg Staph via BC & cath tip; continue IV Vanco 3. SOB: not overtly overloaded on exam but no objection to additional Lasix; needs ischemic event excluded Suggestion: 1. check troponin 2. lasix 80 mg IV 3. IV Vanco per protocol 4. repeat HD tomorrow Subjective Subjective: SOB earlier today - 1 episode vomiting w/o CP, arm pain or jaw pain Objective Vital Signs and I&Os Vital Signs Date Time Temp Pulse Resp B/P B/P Pulse O2 O2 Flow FiO2 Mean Ox Delivery Rate 04/12 0917 124/70 04/12 0916 124/70 04/12 0916 124/70 04/12 0915 124/70 04/12 0810 97 Nasal 2.0L Cannula 04/12 0641 98.4 69 20 126/70 91 Room Air 04/12 0000 Nasal 2.0L Cannula 04/11 2348 72 106/80 04/11 2300 98.5 72 20 106/80 97 Nasal Cannula 04/11 1701 124/74 04/11 1701 128/74 04/11 1701 128/74 04/11 1613 94 Nasal 2.0L Cannula Intake & Output 04/12 1600 04/12 0400 04/11 1600 04/11 0400 04/10 1600 04/10 0400 Intake Total 100 3350 100 490 420 340 Output Total 445 303 8537 625 250 Balance -350 3350 -450 -510 -205 90 Intake, 3000 Dialysate Intake, IV 250 0 0 Intake, Oral 100 100 100 490 420 340 Number 0 0 2 1 Bowel Movements Output, Urine 648 000 0602 625 250 Patient 203 lb 209 lb 215 lb Weight Weight Chair scale Chair scale Measurement Method Physical Exam General Appearance: no apparent distress, alert Head: atraumatic, normal appearance Ears, Nose, Throat: normal ENT inspection Neck: R IJ cath Respiratory: no respiratory distress, decreased R base; clear L Cardiovascular: regular rate/rhythm Abdomen: soft, non-tender Extremities: no edema, + bruit L arm AVF Neurologic/Psychiatric: awake, alert, oriented x 3 Current Medications: Current Medications Sig/Julissa Start time Last Medication Dose Route Stop Time Status Admin Acetaminophen 650 MG .STK-MED ONE 04/11 1725 DC PO 04/11 172 Acetaminophen 650 MG Q6P PRN 03/27 2200 AC 04/11 PO 1727 Acetaminophen 1,000 MG Q8P PRN 03/27 2200 AC IV Acetaminophen/ 1 TAB ONCE ONE 04/11 2015 DC 04/11 Hydrocodone Bitart PO 04/11 Albuterol Sulfate 2 PUF Q4P PRN 03/27 2215 AC INH Alprazolam 0.5 MG BID PRN 04/12 0930 AC 04/12 PO 04/19 09 0928 Aspirin Buffered 81 MG AT BEDTIME 03/28 2200 AC 04/11 PO 2348 Atorvastatin Calcium 80 MG AT BEDTIME 03/28 2200 AC 04/11 PO 2348 Benzonatate 100 MG TID 04/05 1000 AC 04/12 PO 0916 Budesonide/ 2 PUF BID 03/27 221 AC 04/12 Formoterol Fumarate INH 0921 Clonidine 0.1 MG BID 03/28 1000 AC 04/12 PO 0916 Clopidogrel Bisulfate 75 MG DAILY 04/12 1000 AC 04/12 PO 0915 Epoetin [place] 10,000 UNIT PER PROTOCL PRN 04/11 1345 AC IV Epoetin [place] 8,000 UNIT TuThSa PRN 03/29 1100 DC IV Famotidine 20 MG DAILY 04/03 1000 AC 04/12 PO 0917 Folic Acid 1 MG DAILY 03/28 1000 AC 04/12 PO 0916 Furosemide 80 MG ONCE ONE 04/12 1230 UNVr IV 04/12 1231 Furosemide 40 MG ONCE ONE 04/12 1215 CANr IV 04/12 1216 Furosemide 80 MG DAILY 03/28 1000 AC 04/12 PO 0916 Insulin Aspart 0 TIDAC 03/28 0800 AC 04/12 SC 0903 Isosorbide 60 MG DAILY 03/28 1000 AC 04/12 Mononitrate PO 0917 Levothyroxine Sodium 0.2 MG DAILY AC 03/28 0700 AC 04/12 PO 0526 Melatonin 3 MG AT BEDTIME 04/09 2200 AC 04/11 PO 2348 Metoprolol Tartrate 100 MG DAILY 03/28 1000 AC 04/12 PO 0916 Polyethylene Glycol 17 GM DAILY 04/12 1000 CAN PO Polyethylene Glycol 17 GM DAILY 03/28 1353 AC 03/30 PO 1139 Prochlorperazine 10 MG Q6-PRN PRN 03/27 2215 AC 04/07 IV 1628 Senna/Docusate Sodium 2 TAB AT BEDTIME 03/28 2200 AC 04/11 PO 2347 Sertraline HCl 100 MG DAILY 03/28 1000 AC 04/12 PO 0915 Sevelamer Carbonate 1,600 MG WM 03/30 1700 AC 04/12 PO 0835 Simethicone 80 MG Q8 04/02 1402 AC 04/12 PO 0525 Tamsulosin HCl 0.4 MG DAILY 03/28 1000 AC 04/12 PO 0915 Trazodone HCl 150 MG QPM 03/28 2200 AC 04/11 PO 2347 Trimethobenzamide HCl 200 MG 4 TIMES/DAY PRN 03/31 1730 AC 04/01 IM 2057 Vancomycin HCl See Dose TuThSa PRN 04/14 1000 AC Insts (1) IV Vancomycin HCl 1,000 MG ONCE ONE 04/11 1500 DC 04/11 Sodium Chloride 250 ML IV 04/11 1559 1704 Vancomycin HCl See Dose MoThSa PRN 04/11 1200 DC Insts (2) IV 04/11 2359 Dose Instructions: (1)Vancomycin HCl: DOSE BASED ON RANDOM VANCO LEVELS (2)Vancomycin HCl: DOSE BASED ON RANDOM VANCO LEVELS Results Pertinent Lab Results: Laboratory Tests 04/12 04/11 0727 1210 Chemistry Sodium (137 - 145 mmol/L) 138 Potassium (3.5 - 5.1 mmol/L) 3.9 Chloride (98 - 107 mmol/L) 100 Carbon Dioxide (22 - 30 mmol/L) 26 Anion Gap (5 - 16) 12 BUN (9 - 20 mg/dL) 14 Creatinine (0.7 - 1.2 mg/dL) 2.5 H Estimated GFR (>60 ml/min) 26 L BUN/Creatinine Ratio (7 - 25 %) 5.6 L Total Bilirubin (0.2 - 1.3 mg/dL) 1.4 H Direct Bilirubin (< 0.4 mg/dL) 0.6 H AST (17 - 59 U/L) 27 ALT (21 - 72 U/L) 51 Alkaline Phosphatase (< 127 U/L) 121 Total Protein (6.3 - 8.2 g/dL) 5.7 L Albumin (3.5 - 5.0 g/dL) 3.3 L Hematology CBC w Diff NO MAN DIFF REQ WBC (4.8 - 10.8 /CUMM) 4.4 L RBC (4.70 - 6.10 /CUMM) 3.32 L Hgb (14.0 - 18.0 G/DL) 8.8 L Hct (42 - 52 %) 26.9 L MCV (80.0 - 94.0 FL) 81.0 MCH (27.0 - 31.0 PG) 26.4 L RDW (11.5 - 14.5 %) 16.3 H Plt Count (130 - 400 /CUMM) 196 MPV (7.4 - 10.4 FL) 8.9 Gran % (42.2 - 75.2 %) 73.0 Lymphocytes % (20.5 - 51.1 %) 19.6 L Monocytes % (1.7 - 9.3 %) 6.7 Eosinophils % (0 - 5 %) 0.6 Basophils % (0.0 - 2.0 %) 0.1 Absolute Granulocytes (1.4 - 6.5 /CUMM) 3.2 Absolute Lymphocytes (1.2 - 3.4 /CUMM) 0.9 L Absolute Monocytes (0.10 - 0.60 /CUMM) 0.3 Absolute Eosinophils (0.0 - 0.7 /CUMM) 0 Absolute Basophils (0.0 - 0.2 /CUMM) 0 PUBS MCHC (33.0 - 37.0 G/DL) 32.7 L Toxicology Vancomycin Trough (10.0 - 20.0 ug/mL) 11.7 07/03 07/02 0650 1105 Chemistry Sodium (137 - 145 mmol/L) 134 L 135 L Potassium (3.5 - 5.1 mmol/L) 4.0 4.4 Chloride (98 - 107 mmol/L) 98 99 Carbon Dioxide (22 - 30 mmol/L) 24 26 Anion Gap (5 - 16) 12 9 BUN (9 - 20 mg/dL) 33 H 30 H Creatinine (0.7 - 1.2 mg/dL) 3.6 H 3.5 H Estimated GFR (>60 ml/min) 17 L 18 L BUN/Creatinine Ratio (7 - 25 %) 9.2 8.6 Hematology CBC w Diff NO MAN DIFF REQ NO MAN DIFF REQ WBC (4.8 - 10.8 /CUMM) 5.8 5.7 RBC (4.70 - 6.10 /CUMM) 3.43 L 3.26 L Hgb (14.0 - 18.0 G/DL) 9.3 L 8.7 L Hct (42 - 52 %) 27.7 L 26.2 L MCV (80.0 - 94.0 FL) 80.6 80.4 MCH (27.0 - 31.0 PG) 26.9 L 26.6 L RDW (11.5 - 14.5 %) 16.2 H 16.2 H Plt Count (130 - 400 /CUMM) 180 149 MPV (7.4 - 10.4 FL) 9.9 9.9 Gran % (42.2 - 75.2 %) 78.4 H 71.4 Lymphocytes % (20.5 - 51.1 %) 15.8 L 19.3 L Monocytes % (1.7 - 9.3 %) 4.2 7.8 Eosinophils % (0 - 5 %) 1.4 1.3 Basophils % (0.0 - 2.0 %) 0.2 0.2 Absolute Granulocytes (1.4 - 6.5 /CUMM) 4.6 4.1 Absolute Lymphocytes (1.2 - 3.4 /CUMM) 0.9 L 1.1 L Absolute Monocytes (0.10 - 0.60 /CUMM) 0.2 0.4 Absolute Eosinophils (0.0 - 0.7 /CUMM) 0.1 0.1 Absolute Basophils (0.0 - 0.2 /CUMM) 0 0 PUBS MCHC (33.0 - 37.0 G/DL) 33.4 33.1 Imaging/Other Studies: CXR: poor inspiration w smal R effusion & increased interstitial
[2017-04-12 15:41] VITALS: BP 120/62
[2017-04-12 22:00] VITALS: BP 112/70
[2017-04-13 07:28] VITALS: BP 120/72
--- NOTE | 2017-04-13 08:02 | PN- Housestaff ---
BREE POOLE 04/13/17 0758: Subjective Follow-up For: - ESRD - Fluid overload - Staph coag neg bacteremia Complaints: no complaints Tele-Events Since Last Visit: No overnight tele events. Pt remained in NSR, w/ HR 62-65 Subjective: The patient was comfortable this morning. Did not have any complaints. Did not have any shortness of breath, chest discomfort. Stated that he walked yesterday , with no difficulty in breathing. Did not complain of any pain around the area of catheter insertion. Yesterday, he was found to be more short of breath, and was given 1 dose of intravenous Lasix 80 mg, with resolution of symptoms. He also had similar complaints from the past-chills associated with rigors. During the day, had a chance to discuss with Dr. Kim about the source of infection in this patient. As per Hollis Larios MD, it would be prudent to get an echocardiogram done, and if it's negative could pursue a LILIANE to rule out any infectious endocarditis. Ideally coagulase-negative staph does not seem any [place] valves, however in the setting of unexplained source of infection that this needs to be ruled out. Discussed with Dr. Lee, who was of the opinion that an echocardiogram could be done, and if read pursue LILIANE on Tuesday. Explained the change in management plan with the patient. Review of Systems Constitutional: Reports: see HPI. Objective Last 24 Hrs of Vital Signs/I&O Vital Signs Date Time Temp Pulse Resp B/P B/P Pulse O2 O2 Flow FiO2 Mean Ox Delivery Rate 04/13 0728 97.8 66 20 120/72 99 Nasal Cannula 04/13 0000 96 Nasal 2.0L Cannula 04/12 2226 67 120/70 04/12 2200 98.3 67 20 112/70 100 Nasal 2.5L Cannula 04/12 1600 94 Nasal 2.0L Cannula 04/12 1541 98.1 65 20 120/62 91 Nasal Cannula 04/12 0917 124/70 04/12 0916 124/70 04/12 0916 124/70 04/12 0915 124/70 04/12 0810 97 Nasal 2.0L Cannula Intake & Output 04/13 1600 04/13 0800 04/13 0000 Intake Total 400 760 Output Total 125 Balance 275 760 Intake, IV 10 Intake, Oral 400 750 Output, Urine 125 Patient 205 lb Weight Weight Chair scale Measurement Method Physical Exam General Appearance: No Acute Distress Other Physical Findings: General Exam: AAOx3, No acute distress, Skin: No rashes, no breakdown, no erythema or tenderness around the catheter insertion site. HEENT: PERRLA, EOMI Neck: Supple, No JVD No cervical lymphadenopathy CVS: Reg Rate, Normal S1,S2, No MGR Resp: Normal air entry, no ronchi/rales Abdomen: Soft, No tenderness, Normal Bowel Sounds Neuro: Normal Speech, Strength 5/5 b/l x 4 extremities, Sensation intact, CN III -XII NL, Reflexes 2+ Extremities: No cyanosis, pedal edema 1+. Current Medications: Current Medications Sig/Julissa Start time Last Medication Dose Route Stop Time Status Admin Acetaminophen 650 MG Q6P PRN 03/270 AC 04/11 PO 1727 Acetaminophen 1,000 MG Q8P PRN 03/27 2200 AC IV Albuterol Sulfate 2 PUF Q4P PRN 03/27 2215 AC INH Alprazolam 0.5 MG BID PRN 04/12 0930 AC 04/12 PO 04/19 0929 2231 Aspirin Buffered 81 MG AT BEDTIME 03/28 2200 AC 04/12 PO 2225 Atorvastatin Calcium 80 MG AT BEDTIME 03/28 2200 AC 04/12 PO 2225 Benzonatate 100 MG TID 04/05 1000 AC 04/12 PO 2227 Budesonide/ 2 PUF BID 03/27 2211 AC 04/12 Formoterol Fumarate INH 2232 Clonidine 0.1 MG BID 03/28 1000 AC 04/12 PO 2226 Clopidogrel Bisulfate 75 MG DAILY 04/12 1000 AC 04/12 PO 0915 Epoetin [place] 10,000 UNIT PER PROTOCL PRN 04/11 1345 AC IV Famotidine 20 MG DAILY 04/03 1000 AC 04/12 PO 0917 Folic Acid 1 MG DAILY 03/28 1000 AC 04/12 PO 0916 Furosemide 80 MG ONCE ONE 04/12 1230 DC 04/12 IV 04/12 1231 1235 Furosemide 40 MG ONCE ONE 04/12 1215 CAN IV 04/12 1216 Furosemide 80 MG DAILY 03/28 1000 AC 04/12 PO 0916 Insulin Aspart 0 TIDAC 03/28 0800 AC 04/12 SC 1244 Isosorbide 60 MG DAILY 03/28 1000 AC 04/12 Mononitrate PO 0917 Levothyroxine Sodium 0.2 MG DAILY AC 03/28 0700 AC 04/13 PO 0615 Melatonin 3 MG AT BEDTIME 04/09 2200 AC 04/12 PO 2225 Metoprolol Tartrate 100 MG DAILY 03/28 1000 AC 04/12 PO 0916 Polyethylene Glycol 17 GM DAILY 04/12 1000 CAN PO Polyethylene Glycol 17 GM DAILY 03/28 1353 AC 03/30 PO 1139 Prochlorperazine 10 MG Q6-PRN PRN 03/27 2215 AC 04/07 IV 1628 Senna/Docusate Sodium 2 TAB AT BEDTIME 03/28 2200 AC 04/12 PO 2225 Sertraline HCl 100 MG DAILY 03/28 1000 AC 04/12 PO 0915 Sevelamer Carbonate 1,600 MG WM 03/30 1700 AC 04/12 PO 0835 Simethicone 80 MG Q8 04/02 1402 AC 04/13 PO 0615 Tamsulosin HCl 0.4 MG DAILY 03/28 1000 AC 04/12 PO 0915 Trazodone HCl 150 MG QPM 03/28 2200 AC 04/12 PO 2226 Trimethobenzamide HCl 200 MG 4 TIMES/DAY PRN 03/31 1730 AC 04/01 IM 2057 Vancomycin HCl See Dose TuThSa PRN 04/14 1000 AC Insts (1) IV Dose Instructions: (1)Vancomycin HCl: DOSE BASED ON RANDOM VANCO LEVELS Last 24 Hrs of Lab/Angus Results Last 24 Hrs of Labs/Mics: Laboratory Tests 04/12/17 1226: Troponin I Cancelled Microbiology 04/12 1445 BLOOD: Blood Culture - RECD 04/12 1315 BLOOD: Blood Culture - RECD 04/12 1128 LOWER RESP: Respiratory Culture - COLB 04/12 1128 LOWER RESP: Gram Stain - COLB Assessment/Plan Assessment: He is a 67 year old man with PMH of CAD s/p stents (Oct 2016), COPD, T2DM, neuropathy, MILES noncompliant with CPAP, HFpEF, CKD stage 5 s/p AV fistula (January 2017), multiple admits for chest pain, dyspnea and elevated troponins, initiated on HD (TTS) via [facility] during recent admission for fluid overload (03/15-03/23) is being currently managed for staph coag negative bacteremia likely from the catheter tip. In the last 24 hours, vitals remained stable. Lab findings indicated no leukocytosis, H&H stable, hemoglobin 7.8, hematocrit 23.5. Electrolytes-sodium 134, BUN 30, serum creatinine 3.6, random vancomycin level (predialysis)-10.9. Differential diagnosis: #1 bacteremia (coag-negative staph) number to volume overload #3 end-stage renal disease on hemodialysis Below is the problem list and plan: #1 staph coag negative bacteremia-until proven otherwise, tip of catheter was seeded, but source is still unclear. The catheter was removed, and a new tunneled catheter was placed yesterday. Hemodialysis was done this morning. Repeat blood cultures have been negative so far, and the source of infection is still unclear at this time. As per the infectious disease foreign law consultant, it was thought to be prudent to check echocardiogram to rule out any valvular cause- infective endocarditis. Last dose of vancomycin to be administered today. Continue to monitor the vitals closely. Transthoracic echocardiogram was ordered this a.m. Plan to follow-up the results, and if are negative for any vegetation/signs of any infective endocarditis, plan is to do a transthoracic esophageal echocardiogram. #2 hemodialysis for end-stage renal disease-plan to continue hemodialysis as per schedule. If the patient continues to remain in the hospital, would contact the nephrology for planning hemodialysis. #3 history of coronary artery disease, and elevated troponin-since he had shortness of breath yesterday, troponin 1 was checked which was 0.18. It was likely because of demand/hemodialysis that resulted in recommendation of cardiac enzyme. Continue aspirin and Plavix as recommended by the cardiology. #4 hypertension-blood pressure adequately controlled on Lopressor, isosorbide mononitrate, Lasix and clonidine. Continue to watch blood pressure closely. #5 diabetes-blood sugars remain in the range of 80-180. Continue current schedule of insulin sliding scale.Of note, home dose of long acting insulin is currently on hold. #6 DVT prophylaxis-currently pharmacologically. The patient had low H&H on also from cytopenia. Informed the nurse, that it is important that the patient remains on ALPS at all times. Problem List: 1. Infection, dialysis vascular access 2. COPD (chronic obstructive pulmonary disease) 3. CHF (congestive heart failure) 4. ESRD (end stage renal disease) 5. Volume overload Pain Ratin Pain Location: none Pain Goal: Pain 4 or less Pain Plan: -tylenol prn Tomorrow's Labs & Rationales: Complete blood count-to monitor for leukocytosis, and low H&H. Basic electrolyte panel-the patient is on hemodialysis. DVT/Prophylaxis: ANMOL Bolanos 04/13/17 1117: Attending Review Statement Attending Statement Attending MD Statement: examined this patient, discuss w/resident/PA/RELIEF CAPTAIN, agreed w/resident/PA/RELIEF CAPTAIN, discussed with family, reviewed EMR data (avail), discussed with nursing, discussed with case mgmt, reviewed images, amended to note Attending Assessment/Plan: Assessment Chills and rigors likely sepsis staph coag negative- patient has been afebrile despite intermittent chills; presumed source was dialysis catheter which has been removed; dialysis catheter tip is growing staph coag negative. Sensitivities show that it is sensitive to oxacillin. Mild shorts of breath likely fluid buildup despite dialysis yesterday. Rule out pneumonia given difficulty breathing and increased sputum production Elevated troponin presumably from chronic kidney disease; CAD Diabetes End-stage renal disease on hemodialysis Recent acute gastritis likely viral Acute and chronic anemia Transaminitis Hyponatremia Thrombocytopenia Plan Chest x-ray shows signs of CHF or pleural fluid underwent HD today Limit fluid intake 1 L per day Continue oxygen and taper as tolerated Ambulate patient with a cane/walker Please add Tylenol for mild pain; Ultram for moderate pain. Patient can also take Vicodin when necessary for severe pain f/u ID and nephro for d/c plans
--- NOTE | 2017-04-13 08:13 | PN- Nephrology ---
See Addendum Assessment/Plan Assessment: 1. ESRD: HD underway 2. Line sepsis: coag neg Staph via BC & cath tip; continue IV Vanco 3. SOB: improved; UF 3 liters w HD as BP tolerates Suggestion: 1. IV Vanco per protocol 2. ? d/c plan - has outpt HD seat for tomorrow Subjective Subjective: SOB better No CP ? rigors yesterday but no documented fever Objective Vital Signs and I&Os Vital Signs Date Time Temp Pulse Resp B/P B/P Pulse O2 O2 Flow FiO2 Mean Ox Delivery Rate 04/13 728 97.8 66 20 120/72 99 Nasal Cannula 04/13 0000 96 Nasal 2.0L Cannula 04/12 2226 67 120/70 04/12 2200 98.3 67 20 112/70 100 Nasal 2.5L Cannula 04/12 1600 94 Nasal 2.0L Cannula 04/12 1541 98.1 65 20 120/62 91 Nasal Cannula 04/12 0917 124/70 04/12 0916 124/70 04/12 0916 124/70 04/12 0915 124 Intake & Output 04/13 1600 04/13 0400 04/12 1600 04/12 0400 04/11 1600 04/11 0400 Intake Total 400 569 833 6147 100 490 Output Total 125 719 755 5974 Balance 275 760 -80 3350 -450 -510 Intake, 3000 Dialysate Intake, IV 10 20 250 0 0 Intake, Oral 400 750 500 100 100 490 Number 0 0 Bowel Movements Output, Urine 125 [phone] Patient 205 lb 203 lb 209 lb Weight Weight Chair scale Chair scale Measurement Method Physical Exam General Appearance: well developed/nourished, no apparent distress Head: atraumatic, normal appearance Neck: R IJ cath Respiratory: decreased R base Cardiovascular: regular rate/rhythm Abdomen: soft, non-tender Extremities: no edema, + bruit KAREY AVF Neurologic/Psychiatric: awake, alert, oriented x 3 Results Pertinent Lab Results: Laboratory Tests 04/12 04/12 04/11 1226 0727 1210 Chemistry Sodium (137 - 145 mmol/L) 138 Potassium (3.5 - 5.1 mmol/L) 3.9 Chloride (98 - 107 mmol/L) 100 Carbon Dioxide (22 - 30 mmol/L) 26 Anion Gap (5 - 16) 12 BUN (9 - 20 mg/dL) 14 Creatinine (0.7 - 1.2 mg/dL) 2.5 H Estimated GFR (>60 ml/min) 26 L BUN/Creatinine Ratio (7 - 25 %) 5.6 L Total Bilirubin (0.2 - 1.3 mg/dL) 1.4 H Direct Bilirubin (< 0.4 mg/dL) 0.6 H AST (17 - 59 U/L) 27 ALT (21 - 72 U/L) 51 Alkaline Phosphatase (< 127 U/L) 121 Troponin I (<0.11 ng/ml) Cancelled 0.18 *H Total Protein (6.3 - 8.2 g/dL) 5.7 L Albumin (3.5 - 5.0 g/dL) 3.3 L Hematology CBC w Diff NO MAN DIFF REQ WBC (4.8 - 10.8 /CUMM) 4.4 L RBC (4.70 - 6.10 /CUMM) 3.32 L Hgb (14.0 - 18.0 G/DL) 8.8 L Hct (42 - 52 %) 26.9 L MCV (80.0 - 94.0 FL) 81.0 MCH (27.0 - 31.0 PG) 26.4 L RDW (11.5 - 14.5 %) 16.3 H Plt Count (130 - 400 /CUMM) 196 MPV (7.4 - 10.4 FL) 8.9 Gran % (42.2 - 75.2 %) 73.0 Lymphocytes % (20.5 - 51.1 %) 19.6 L Monocytes % (1.7 - 9.3 %) 6.7 Eosinophils % (0 - 5 %) 0.6 Basophils % (0.0 - 2.0 %) 0.1 Absolute Granulocytes (1.4 - 6.5 /CUMM) 3.2 Absolute Lymphocytes (1.2 - 3.4 /CUMM) 0.9 L Absolute Monocytes (0.10 - 0.60 /CUMM) 0.3 Absolute Eosinophils (0.0 - 0.7 /CUMM) 0 Absolute Basophils (0.0 - 0.2 /CUMM) 0 PUBS MCHC (33.0 - 37.0 G/DL) 32.7 L Toxicology Vancomycin Trough (10.0 - 20.0 ug/mL) 11.7 07/03 07/02 0650 1105 Chemistry Sodium (137 - 145 mmol/L) 134 L 135 L Potassium (3.5 - 5.1 mmol/L) 4.0 4.4 Chloride (98 - 107 mmol/L) 98 99 Carbon Dioxide (22 - 30 mmol/L) 24 26 Anion Gap (5 - 16) 12 9 BUN (9 - 20 mg/dL) 33 H 30 H Creatinine (0.7 - 1.2 mg/dL) 3.6 H 3.5 H Estimated GFR (>60 ml/min) 17 L 18 L BUN/Creatinine Ratio (7 - 25 %) 9.2 8.6 Hematology CBC w Diff NO MAN DIFF REQ NO MAN DIFF REQ WBC (4.8 - 10.8 /CUMM) 5.8 5.7 RBC (4.70 - 6.10 /CUMM) 3.43 L 3.26 L Hgb (14.0 - 18.0 G/DL) 9.3 L 8.7 L Hct (42 - 52 %) 27.7 L 26.2 L MCV (80.0 - 94.0 FL) 80.6 80.4 MCH (27.0 - 31.0 PG) 26.9 L 26.6 L RDW (11.5 - 14.5 %) 16.2 H 16.2 H Plt Count (130 - 400 /CUMM) 180 149 MPV (7.4 - 10.4 FL) 9.9 9.9 Gran % (42.2 - 75.2 %) 78.4 H 71.4 Lymphocytes % (20.5 - 51.1 %) 15.8 L 19.3 L Monocytes % (1.7 - 9.3 %) 4.2 7.8 Eosinophils % (0 - 5 %) 1.4 1.3 Basophils % (0.0 - 2.0 %) 0.2 0.2 Absolute Granulocytes (1.4 - 6.5 /CUMM) 4.6 4.1 Absolute Lymphocytes (1.2 - 3.4 /CUMM) 0.9 L 1.1 L Absolute Monocytes (0.10 - 0.60 /CUMM) 0.2 0.4 Absolute Eosinophils (0.0 - 0.7 /CUMM) 0.1 0.1 Absolute Basophils (0.0 - 0.2 /CUMM) 0 0 PUBS MCHC (33.0 - 37.0 G/DL) 33.4 33.1
--- NOTE | 2017-04-13 10:58 | PN- Infect Dx ---
Subjective Subjective: Afebrile. He reports mild dyspnea. He reports rigors lasting 45 minutes yesterday, after which he felt "wiped out". He also apparently had an episode of nausea and vomiting. He feels improved this morning with no specific complaints at this time. Objective Last 24 Hrs of Vital Signs/I&O Vital Signs Date Time Temp Pulse Resp B/P B/P Pulse O2 O2 Flow FiO2 Mean Ox Delivery Rate 04/13 0800 Nasal 2.0L Cannula 04/13 0728 97.8 66 20 120/72 99 Nasal Cannula 04/13 0000 96 Nasal 2.0L Cannula 04/12 2226 67 120/70 04/12 2200 98.3 67 20 112/70 100 Nasal 2.5L Cannula 04/12 1600 94 Nasal 2.0L Cannula 04/12 1541 98.1 65 20 120/62 91 Nasal Cannula Intake & Output 04/13 1600 04/13 0800 04/13 0000 Intake Total 400 760 Output Total 125 Balance 275 760 Intake, IV 10 Intake, Oral 400 750 Output, Urine 125 Patient 210 lb 205 lb Weight Weight Chair scale Chair scale Measurement Method Physical Exam Other Physical Findings: He appears comfortable on dialysis Neck right upper neck at the site of the previous Bao catheter slightly tender to palpation; right IJ Bao catheter site with no inflammation Lungs decreased breath sounds at both bases Heart regular rhythm with no murmur Abdomen is soft, nontender with positive bowel sounds Extremities no cyanosis, clubbing or edema Results Last 24 Hours of Lab Results: Laboratory Tests 04/12 1226 Chemistry Troponin I Cancelled Last 24 Hours of Angus Results: Blood cultures 2 April 12 negative Recent Imaging Studies: Chest x-ray April 12, personally reviewed, reveals increased interstitial markings Assessment/Plan Impression: Recurrent rigors yesterday after several days with no rigors following removal of the Bao catheter for presumed line sepsis secondary to coag negative Staph, with the catheter tip culture also positive for coag negative Staph. He remains afebrile with white blood cell count normal on Vancomycin now Day 12 of treatment, but the recurrence of his rigors does suggest the possibility of an occult focus of infection. Endocarditis is possible, though [place] valve endocarditis secondary to coag-negative Staph is unusual. His dyspnea suggests fluid overload, with chest x-ray revealing increased interstitial markings. Suggestion: 1. Repeat echocardiogram and consider LILIANE if negative 2. Vascular surgery follow-up regarding his fistula 3. Re-dose with Vancomycin today after dialysis per protocol
--- NOTE | 2017-04-13 12:20 | PN- Cardiology ---
Subjective Subjective: The patient is currently in dialysis. Stable. Recurrent episodes of Shelton's since removal of a rash. Follow-up echocardiogram pending Objective Vital Signs and I&Os Vital Signs Date Time Temp Pulse Resp B/P B/P Pulse O2 O2 Flow FiO2 Mean Ox Delivery Rate 04/13 1111 Nasal 2.0L Cannula 04/13 08 Nasal 2.0L Cannula 04/13 0728 97.8 66 20 120/72 99 Nasal Cannula 04/13 0000 96 Nasal 2.0L Cannula 04/12 2226 67 120/70 04/12 2200 98.3 67 20 112/70 100 Nasal 2.5L Cannula 04/12 1600 94 Nasal 2.0L Cannula 04/12 1541 98.1 65 20 120/62 91 Nasal Cannula Intake & Output 04/13 1600 04/13 0804/13 0000 04/12 1600 04/12 0804/12 0000 Intake Total 400 760 624 758 1435 Output Total 125 150 450 Balance 275 760 270 -350 3350 Intake, 3000 Dialysate Intake, IV 10 20 250 Intake, Oral 400 750 400 100 100 Output, Urine 125 150 450 Patient 210 lb 205 lb 203 lb Weight Weight Chair scale Chair scale Measurement Method Current Medications: Current Medications Sig/Julissa Start time Last Medication Dose Route Stop Time Status Admin Acetaminophen 650 MG Q6P PRN 03/27 2200 AC 04/11 PO 1727 Acetaminophen 1,000 MG Q8P PRN 03/27 220 AC IV Albuterol Sulfate 2 PUF Q4P PRN 03/27 2215 AC INH Alprazolam 0.5 MG BID PRN 04/12 0930 AC 04/12 PO 04/19 929 223 Aspirin Buffered 81 MG AT BEDTIME 03/28 2200 AC 04/12 PO 222 Atorvastatin Calcium 80 MG AT BEDTIME 03/28 220 AC 04/12 PO 222 Benzonatate 100 MG TID 04/05 1000 AC 04/12 PO 222 Budesonide/ 2 PUF BID 03/27 2211 AC 04/12 Formoterol Fumarate INH 2232 Clonidine 0.1 MG BID 03/28 1000 AC 04/12 PO 2226 Clopidogrel Bisulfate 75 MG DAILY 04/12 1000 AC 04/12 PO 0915 Epoetin [place] 10,000 UNIT PER PROTOCL PRN 04/11 1345 AC IV Famotidine 20 MG DAILY 04/03 1000 AC 04/12 PO 0917 Folic Acid 1 MG DAILY 03/28 1000 AC 04/12 PO 0916 Furosemide 80 MG ONCE ONE 04/12 1230 DC 04/12 IV 04/12 1231 1235 Furosemide 40 MG ONCE ONE 04/12 1215 CAN IV 04/12 1216 Furosemide 80 MG DAILY 03/28 1000 AC 04/12 PO 0916 Insulin Aspart 0 TIDAC 03/28 0800 AC 04/12 SC 1244 Isosorbide 60 MG DAILY 03/28 1000 AC 04/12 Mononitrate PO 0917 Levothyroxine Sodium 0.2 MG DAILY AC 03/28 0700 AC 04/13 PO 0615 Melatonin 3 MG AT BEDTIME 04/09 2200 AC 04/12 PO 2225 Metoprolol Tartrate 100 MG DAILY 03/28 1000 AC 04/12 PO 0916 Polyethylene Glycol 17 GM DAILY 03/28 1353 AC 03/30 PO 1139 Prochlorperazine 10 MG Q6-PRN PRN 03/27 2215 AC 04/07 IV 1628 Senna/Docusate Sodium 2 TAB AT BEDTIME 03/28 2200 AC 04/12 PO 2225 Sertraline HCl 100 MG DAILY 03/28 1000 AC 04/12 PO 0915 Sevelamer Carbonate 1,600 MG WM 03/30 1700 AC 04/12 PO 0835 Simethicone 80 MG Q8 04/02 1402 AC 04/13 PO 0615 Tamsulosin HCl 0.4 MG DAILY 03/28 1000 AC 04/12 PO 0915 Trazodone HCl 150 MG QPM 03/28 2200 AC 04/12 PO 2226 Trimethobenzamide HCl 200 MG 4 TIMES/DAY PRN 03/31 1730 AC 04/01 IM 2057 Vancomycin HCl See Dose TuThSa PRN 04/14 1000 AC Insts (1) IV Dose Instructions: (1)Vancomycin HCl: DOSE BASED ON RANDOM VANCO LEVELS Results Last 48 Hrs of Labs/Mics: Laboratory Tests 04/13/17 1112: Random Vancomycin Cancelled 04/12/17 1226: Troponin I Cancelled 04/12/17 0727: Anion Gap 12, Estimated GFR 26 L, BUN/Creatinine Ratio 5.6 L, Total Bilirubin 1.4 H, Direct Bilirubin 0.6 H, AST 27, ALT 51, Alkaline Phosphatase 121, Troponin I 0.18 *H, Total Protein 5.7 L, Albumin 3.3 L, CBC w Diff NO MAN DIFF REQ, RBC 3.32 L, MCV 81.0, MCH 26.4 L, RDW 16.3 H, MPV 8.9, Gran % 73.0, Lymphocytes % 19.6 L, Monocytes % 6.7, Eosinophils % 0.6, Basophils % 0.1, Absolute Granulocytes 3.2, Absolute Lymphocytes 0.9 L, Absolute Monocytes 0.3, Absolute Eosinophils 0, Absolute Basophils 0, PUBS MCHC 32.7 L Assessment/Plan Assessment/Plan Assessment: #Viral gastroenteritis #Elevated troponin which is most likely related to demand ischemia in the setting of chronic kidney disease #CHFrEF #CKD stage V on dialysis #Chronic hypoxic respiratory failure related to COPD/obstructive sleep apnea on 2 L oxygen Recommendations: -Continue as outlined - Repeat echocardiogram requested by ID. -I suspect, if endocarditis is considered a possibility, that the patient might require a LILIANE however.
[2017-04-13 13:15] VITALS: BP 132/72
[2017-04-13 13:59] LABS: ABSOLUTE BASOPHIL COUNT 0 /CUMM (0.0-0.2); ABSOLUTE EOSINOPHIL COUNT 0 /CUMM (0.0-0.7); ABSOLUTE GRANULOCYTE CT 2.8 /CUMM (1.4-6.5); ABSOLUTE MONOCYTE COUNT 0.3 /CUMM (0.10-0.60); BASOPHIL % 0.5 % (0.0-2.0); EOSINOPHIL % 0 % (0-5); GRANULOCYTE % 68.5 % (42.2-75.2); HEMATOCRIT 23.5 % (42-52); MEAN CORPUSCULAR HGB 26.4 PG (27.0-31.0); MEAN CORPUSCULAR HGB CONC 33.1 G/DL (33.0-37.0); MEAN CORPUSCULAR VOLUME 79.7 FL (80.0-94.0); MEAN PLATELET VOLUME 9.7 FL (7.4-10.4); PLATELET COUNT 155 /CUMM (130-400); RBC DISTRIBUTION WIDTH 16.5 % (11.5-14.5); RED BLOOD CELL CT 2.95 /CUMM (4.70-6.10); WHITE BLOOD CELL COUNT 4.1 /CUMM (4.8-10.8)
--- NOTE | 2017-04-13 22:00 | NUR ---
NURSING NOTE; AT 1930, PT HAD EPISODE OF RIGORS. AFEBRILE. TEMP 98.2. PT NAUSEOUS WITH DRY HEAVING. EPISODE LASTED ABOUT AN HOUR. TEMP AT 2134 99.8.
[2017-04-13 23:18] VITALS: BP 104/52
[2017-04-14 06:56] VITALS: BP 114/66
--- NOTE | 2017-04-14 07:43 | PN- Housestaff ---
BREE POOLE 04/14/17 0742: Subjective Follow-up For: - ESRD - staph coag negative bacteremia. Complaints: no complaints Tele-Events Since Last Visit: No overnight tele events. Subjective: The patient was comfortable this morning. Did not have any new complaints. Overnight he had Shelton's, associated with nausea. Vitals remained stable overnight. He was afebrile. Review of Systems Constitutional: Reports: no symptoms. Objective Last 24 Hrs of Vital Signs/I&O Vital Signs Date Time Temp Pulse Resp B/P B/P Pulse O2 O2 Flow FiO2 Mean Ox Delivery Rate 04/14 0656 98.2 63 20 114/66 94 Room Air 04/14 0000 Nasal 2.5L Cannula 04/13 2318 98.5 63 18 104/52 99 07/05 2243 75 104/52 07/ 1600 98 Nasal 2.5L Cannula 04/13 1339 70 132/72 07/05 1339 70 132/72 07/05 1339 70 132/72 07/05 1339 70 132/72 07/05 1315 97.4 67 20 132/72 98 Nasal 2.0L Cannula 04/13 1111 Nasal 2.0L Cannula 04/13 0800 Nasal 2.0L Cannula Intake & Output 04/14 0800 07/ 0000 07/05 1600 Intake Total 150 810 240 Output Total 125 Balance 150 685 240 Intake, IV 0 250 Intake, Oral 150 560 240 Number 0 0 Bowel Movements Output, Urine 125 Patient 203 lb 200 lb Weight Weight Chair scale Chair scale Measurement Method Physical Exam General Appearance: Alert Other Physical Findings: General Exam: AAOx3, No acute distress, Skin: No rashes, no breakdown HEENT: PERRLA, EOMI Neck: Supple, No JVD No cervical lymphadenopathy CVS: Reg Rate, Normal S1,S2, No MGR Resp: Normal air entry, no ronchi/rales Abdomen: Soft, No tenderness, Normal Bowel Sounds Neuro: Normal Speech, Strength 5/5 b/l x 4 extremities, Sensation intact, CN III -XII NL, Reflexes 2+ Extremities: No cyanosis, 1+ pedal edema Current Medications: Current Medications Sig/Julissa Start time Last Medication Dose Route Stop Time Status Admin Acetaminophen 650 MG Q6P PRN 03/27 2200 AC 07/ PO 1727 Acetaminophen 1,000 MG Q8P PRN 03/27 2200 AC IV Albuterol Sulfate 2 PUF Q4P PRN 03/27 221 AC INH Alprazolam 0.5 MG BID PRN 04/12 0930 AC 04/13 PO 04/19 09 2246 Aspirin Buffered 81 MG AT BEDTIME 03/28 2200 AC 04/13 PO 2243 Atorvastatin Calcium 80 MG AT BEDTIME 03/28 2200 AC 04/13 PO 2243 Benzonatate 100 MG TID 04/05 1000 AC 04/13 PO 2243 Budesonide/ 2 PUF BID 03/27 2211 AC 04/13 Formoterol Fumarate INH 2243 Clonidine 0.1 MG BID 03/28 1000 AC 04/13 PO 2243 Clopidogrel Bisulfate 75 MG DAILY 04/12 1000 AC 04/13 PO 1340 Epoetin [place] 8,000 UNIT TuThSa PRN 04/14 0730 AC IV Epoetin [place] 10,000 UNIT PER PROTOCL PRN 04/11 1345 DC IV Famotidine 20 MG DAILY 04/03 1000 AC 04/13 PO 1340 Folic Acid 1 MG DAILY 03/28 1000 AC 04/13 PO 1339 Furosemide 80 MG DAILY 03/28 1000 AC 04/13 PO 1339 Insulin Aspart 0 TIDAC 03/28 0800 AC 04/13 SC 1741 Isosorbide 60 MG DAILY 03/28 1000 AC 04/13 Mononitrate PO 1339 Levothyroxine Sodium 0.2 MG DAILY AC 03/28 0700 AC 04/14 PO 0544 Melatonin 3 MG AT BEDTIME 04/09 2200 AC 04/13 PO 2243 Metoprolol Tartrate 100 MG DAILY 03/28 1000 AC 04/13 PO 1339 Polyethylene Glycol 17 GM DAILY 03/28 1353 AC 04/13 PO 1344 Prochlorperazine 10 MG Q6-PRN PRN 03/27 2215 AC 04/07 IV 1628 Senna/Docusate Sodium 2 TAB AT BEDTIME 03/28 2200 AC 04/12 PO 2225 Sertraline HCl 100 MG DAILY 03/28 1000 AC 04/13 PO 1340 Sevelamer Carbonate 1,600 MG WM 03/30 1700 AC 04/13 PO 1741 Simethicone 80 MG Q8 04/02 1402 AC 04/14 PO 0544 Tamsulosin HCl 0.4 MG DAILY 03/28 1000 AC 04/13 PO 1339 Trazodone HCl 150 MG QPM 03/28 2200 AC 04/13 PO 2242 Trimethobenzamide HCl 200 MG 4 TIMES/DAY PRN 03/31 1730 AC 04/01 IM 7 Vancomycin HCl See Dose TuThSa PRN 04/14 1000 AC Insts (1) IV Vancomycin HCl 1,000 MG ONCE ONE 04/13 1445 DC 04/13 Sodium Chloride 250 ML IV 04/13 1544 2128 Dose Instructions: (1)Vancomycin HCl: DOSE BASED ON RANDOM VANCO LEVELS Last 24 Hrs of Lab/Angus Results Last 24 Hrs of Labs/Mics: Laboratory Tests 04/13/17 1112: Random Vancomycin Cancelled 04/13/17 0815: Anion Gap 12, Estimated GFR 17 L, BUN/Creatinine Ratio 8.3, CBC w Diff NO MAN DIFF REQ, RBC 2.95 L, MCV 79.7 L, MCH 26.4 L, RDW 16.5 H, MPV 9.7, Gran % 68.5, Lymphocytes % 24.8, Monocytes % 6.2, Eosinophils % 0, Basophils % 0.5, Absolute Granulocytes 2.8, Absolute Lymphocytes 1.0 L, Absolute Monocytes 0.3, Absolute Eosinophils 0, Absolute Basophils 0, PUBS MCHC 33.1, Random Vancomycin 10.9 Assessment/Plan Assessment: He is a 67 year old man with PMH of CAD s/p stents (Oct 2016), COPD, T2DM, neuropathy, MILES noncompliant with CPAP, HFpEF, CKD stage 5 s/p AV fistula (January 2017), multiple admits for chest pain, dyspnea and elevated troponins, initiated on HD (TTS) via [facility] during recent admission for fluid overload (03/15-03/23) is being currently managed for staph coag negative bacteremia likely from the catheter tip. In the last 24 hours, vitals remained stable. Lab findings indicated no leukocytosis, H&H stable, hemoglobin 7.8, hematocrit 23.4. Electrolytes-sodium 134, BUN 24, serum creatinine 3.0, random vancomycin level (predialysis)- 15.4. Differential diagnosis: #1 bacteremia (coag-negative staph) #2 volume overload # 3 end-stage renal disease on hemodialysis Below is the problem list and plan: #1 staph coag negative bacteremia-until proven otherwise, tip of catheter was seeded, but source is still unclear. The catheter was removed, and a new tunneled catheter was placed for dialysis. Hemodialysis was done this morning, to continue the schedule. Repeat blood cultures 04/12/2017 have been negative so far, and the source of infection is still unclear at this time. Await results from echocardiogram, and if they're negative, would have to do a LILIANE to rule out infective endocarditis. Last dose of vancomycin 750 mg as per predialysis vancomycin level, given. #2 hemodialysis for end-stage renal disease-plan to continue hemodialysis as per schedule. #3 history of coronary artery disease, and elevated troponin-0.18. Last troponin was slightly elevated, was attributed to kidney disease. #4 hypertension-blood pressure adequately controlled on Lopressor, isosorbide mononitrate, Lasix and clonidine. Continue to watch blood pressure closely. #5 diabetes-blood sugars remain stable. Continue current schedule of insulin sliding scale.Of note, home dose of long acting insulin is currently on hold. #6 DVT prophylaxis-currently pharmacologically. The patient had low H&H on also from cytopenia. Informed the nurse, that it is important that the patient remains on ALPS at all times. Problem List: 1. Infection, dialysis vascular access 2. Septicemia 3. COPD (chronic obstructive pulmonary disease) Pain Ratin Pain Location: back Pain Goal: Pain 4 or less Pain Plan: Tylenol when necessary Tomorrow's Labs & Rationales: Basic electrolyte panel-with BUN/creatinine to monitor for abnormal kidney function. Complete blood picture-to check for leukocytosis, the patient had coag-negative bacteremia ANMOL MOLINA 04/14/17 0845: Attending MD Review Statement Attending Statement Attending MD Statement: examined this patient, discuss w/resident/PA/GENERATION TECHNOLOGIST, agreed w/resident/PA/GENERATION TECHNOLOGIST, discussed with family, reviewed EMR data (avail), discussed with nursing, discussed with case mgmt, reviewed images, amended to note Attending Assessment/Plan: Assessment Chills and rigors likely sepsis staph coag negative- patient has been afebrile despite intermittent chills; presumed source was dialysis catheter which has been removed; dialysis catheter tip is growing staph coag negative. Sensitivities show that it is sensitive to oxacillin. Mild shorts of breath likely fluid buildup despite dialysis yesterday. Rule out pneumonia given difficulty breathing and increased sputum production Elevated troponin presumably from chronic kidney disease; CAD Diabetes End-stage renal disease on hemodialysis Recent acute gastritis likely viral Acute and chronic anemia Transaminitis Hyponatremia Thrombocytopenia Plan Chest x-ray shows signs of CHF or pleural fluid underwent HD yesterday and today again. ECHO pending. Continue oxygen and taper as tolerated Ambulate patient with a cane/walker Please add Tylenol for mild pain; Ultram for moderate pain. Patient can also take Vicodin when necessary for severe pain f/u ID and nephro for d/c plans.
--- NOTE | 2017-04-14 08:11 | PN- Nephrology ---
Assessment/Plan Assessment: 1. ESRD: repeat HD underway 2. Line sepsis: coag neg Staph via BC & cath tip --> removed; suspect not having true rigors w/o fever or leukocytosis & neg cultures since HD cath removed 3. SOB: improved; repeat UF 3 liters w HD today Suggestion: next HD Sat ? d/c plan --> has outpt HD seat Subjective Subjective: Discharge delayed due to ? rigors Had another episode last evening w/o fever or sweats relieved w hot coffee Last documented + culture 04/08: HD cath tip coag neg Staph 1 episode vomiting yesterday w/o diarrhea SOB better - no CP Objective Vital Signs and I&Os Vital Signs Date Time Temp Pulse Resp B/P B/P Pulse O2 O2 Flow FiO2 Mean Ox Delivery Rate 04/14 0656 98.2 63 20 114/66 94 Room Air 04/14 0000 Nasal 2.5L Cannula 04/13 2318 98.5 63 18 104/52 99 04/13 2243 75 104/52 04/13 1600 98 Nasal 2.5L Cannula 04/13 1339 70 132/72 07/05 1339 70 132/72 07/ 1339 70 132/72 07/05 1339 70 132/72 07/05 1315 97.4 67 20 132/72 98 Nasal 2.0L Cannula 04/13 1111 Nasal 2.0L Cannula Intake & Output 04/14 1600 04/14 0400 04/13 1600 04/13 0400 04/12 1600 04/12 0400 Intake Total 150 810 640 700 546 7052 Output Total 125 125 600 Balance 150 685 515 760 -80 3350 Intake, 3000 Dialysate Intake, IV 0 250 10 20 250 Intake, Oral 150 560 640 750 500 100 Number 0 0 Bowel Movements Output, Urine 125 125 600 Patient 203 lb 200 lb 205 lb 203 lb Weight Weight Chair scale Chair scale Chair scale Measurement Method Physical Exam General Appearance: well developed/nourished, no apparent distress Head: atraumatic, normal appearance Neck: R IJ HD cath Respiratory: decreased R base Cardiovascular: regular rate/rhythm Abdomen: soft, non-tender Extremities: + bruit L arm AVF Neurologic/Psychiatric: awake, alert, oriented x 3 Skin: intact Results Pertinent Lab Results: Laboratory Tests 04/13 04/13 04/12 1112 0815 1226 Chemistry Sodium (137 - 145 mmol/L) 134 L Potassium (3.5 - 5.1 mmol/L) 3.7 Chloride (98 - 107 mmol/L) 97 L Carbon Dioxide (22 - 30 mmol/L) 25 Anion Gap (5 - 16) 12 BUN (9 - 20 mg/dL) 30 H Creatinine (0.7 - 1.2 mg/dL) 3.6 H Estimated GFR (>60 ml/min) 17 L BUN/Creatinine Ratio (7 - 25 %) 8.3 Troponin I Cancelled Hematology CBC w Diff NO MAN DIFF REQ WBC (4.8 - 10.8 /CUMM) 4.1 L RBC (4.70 - 6.10 /CUMM) 2.95 L Hgb (14.0 - 18.0 G/DL) 7.8 L Hct (42 - 52 %) 23.5 L MCV (80.0 - 94.0 FL) 79.7 L MCH (27.0 - 31.0 PG) 26.4 L RDW (11.5 - 14.5 %) 16.5 H Plt Count (130 - 400 /CUMM) 155 MPV (7.4 - 10.4 FL) 9.7 Gran % (42.2 - 75.2 %) 68.5 Lymphocytes % (20.5 - 51.1 %) 24.8 Monocytes % (1.7 - 9.3 %) 6.2 Eosinophils % (0 - 5 %) 0 Basophils % (0.0 - 2.0 %) 0.5 Absolute Granulocytes (1.4 - 6.5 /CUMM) 2.8 Absolute Lymphocytes (1.2 - 3.4 /CUMM) 1.0 L Absolute Monocytes (0.10 - 0.60 /CUMM) 0.3 Absolute Eosinophils (0.0 - 0.7 /CUMM) 0 Absolute Basophils (0.0 - 0.2 /CUMM) 0 PUBS MCHC (33.0 - 37.0 G/DL) 33.1 Toxicology Random Vancomycin (ug/ml) Cancelled 10.9 07/04 07/03 0727 1210 Chemistry Sodium (137 - 145 mmol/L) 138 Potassium (3.5 - 5.1 mmol/L) 3.9 Chloride (98 - 107 mmol/L) 100 Carbon Dioxide (22 - 30 mmol/L) 26 Anion Gap (5 - 16) 12 BUN (9 - 20 mg/dL) 14 Creatinine (0.7 - 1.2 mg/dL) 2.5 H Estimated GFR (>60 ml/min) 26 L BUN/Creatinine Ratio (7 - 25 %) 5.6 L Total Bilirubin (0.2 - 1.3 mg/dL) 1.4 H Direct Bilirubin (< 0.4 mg/dL) 0.6 H AST (17 - 59 U/L) 27 ALT (21 - 72 U/L) 51 Alkaline Phosphatase (< 127 U/L) 121 Troponin I (<0.11 ng/ml) 0.18 *H Total Protein (6.3 - 8.2 g/dL) 5.7 L Albumin (3.5 - 5.0 g/dL) 3.3 L Hematology CBC w Diff NO MAN DIFF REQ WBC (4.8 - 10.8 /CUMM) 4.4 L RBC (4.70 - 6.10 /CUMM) 3.32 L Hgb (14.0 - 18.0 G/DL) 8.8 L Hct (42 - 52 %) 26.9 L MCV (80.0 - 94.0 FL) 81.0 MCH (27.0 - 31.0 PG) 26.4 L RDW (11.5 - 14.5 %) 16.3 H Plt Count (130 - 400 /CUMM) 196 MPV (7.4 - 10.4 FL) 8.9 Gran % (42.2 - 75.2 %) 73.0 Lymphocytes % (20.5 - 51.1 %) 19.6 L Monocytes % (1.7 - 9.3 %) 6.7 Eosinophils % (0 - 5 %) 0.6 Basophils % (0.0 - 2.0 %) 0.1 Absolute Granulocytes (1.4 - 6.5 /CUMM) 3.2 Absolute Lymphocytes (1.2 - 3.4 /CUMM) 0.9 L Absolute Monocytes (0.10 - 0.60 /CUMM) 0.3 Absolute Eosinophils (0.0 - 0.7 /CUMM) 0 Absolute Basophils (0.0 - 0.2 /CUMM) 0 PUBS MCHC (33.0 - 37.0 G/DL) 32.7 L Toxicology Vancomycin Trough (10.0 - 20.0 ug/mL) 11.7
[2017-04-14 10:03] LABS: ABSOLUTE BASOPHIL COUNT 0 /CUMM (0.0-0.2); ABSOLUTE EOSINOPHIL COUNT 0 /CUMM (0.0-0.7); ABSOLUTE GRANULOCYTE CT 3.1 /CUMM (1.4-6.5); ABSOLUTE LYMPH COUNT 1.1 /CUMM (1.2-3.4); ABSOLUTE MONOCYTE COUNT 0.3 /CUMM (0.10-0.60); BASOPHIL % 0.2 % (0.0-2.0); EOSINOPHIL % 0.3 % (0-5); GRANULOCYTE % 68.9 % (42.2-75.2); HEMATOCRIT 23.4 % (42-52); MEAN CORPUSCULAR HGB CONC 33.3 G/DL (33.0-37.0); MEAN PLATELET VOLUME 9.4 FL (7.4-10.4); PLATELET COUNT 168 /CUMM (130-400); RBC DISTRIBUTION WIDTH 16.3 % (11.5-14.5); RED BLOOD CELL CT 2.88 /CUMM (4.70-6.10); WHITE BLOOD CELL COUNT 4.5 /CUMM (4.8-10.8)
[2017-04-14 12:36] VITALS: BP 140/68
[2017-04-14 16:51] VITALS: BP 126/72
--- NOTE | 2017-04-14 17:39 | PN- Infect Dx ---
Subjective Subjective: Afebrile. He had another episode of rigors last evening, associated with a cough and retching, and is having them again now for the past 10 minutes. Objective Last 24 Hrs of Vital Signs/I&O Vital Signs Date Time Temp Pulse Resp B/P B/P Pulse O2 O2 Flow FiO2 Mean Ox Delivery Rate 04/14 1651 98.0 78 20 126/72 95 Room Air 04/14 1319 66 120/60 04/14 1318 66 120/60 04/14 1318 66 120/60 04/14 1317 66 120/60 04/14 1236 97.9 66 20 140/68 98 Room Air 04/14 0656 98.2 63 20 114/66 94 Room Air 04/14 0000 Nasal 2.5L Cannula 04/13 2318 98.5 63 18 104/52 99 04/13 2243 75 104/52 Intake & Output 04/14 1600 04/14 0800 07 0000 Intake Total 300 150 810 Output Total 100 125 Balance 200 150 685 Intake, IV 0 250 Intake, Oral 300 150 560 Number 0 0 Bowel Movements Output, Urine 100 125 Patient 203 lb Weight Weight Chair scale Measurement Method Physical Exam Other Physical Findings: He appears uncomfortable with ongoing rigors Neck right IJ Bao catheter with no inflammation at the site Lungs are clear Heart regular rhythm with no murmur Abdomen is soft, nontender with positive bowel sounds Results Last 24 Hours of Lab Results: Laboratory Tests 04/14 04/14 04/14 1200 0828 0823 Chemistry BUN (9 - 20 mg/dL) 6 L Calcium Cancelled Phosphorus Cancelled Magnesium Cancelled Albumin Cancelled Toxicology Random Vancomycin Cancelled 04/14 0800 Chemistry Sodium (137 - 145 mmol/L) 134 L Potassium (3.5 - 5.1 mmol/L) 3.8 Chloride (98 - 107 mmol/L) 97 L Carbon Dioxide (22 - 30 mmol/L) 27 Anion Gap (5 - 16) 10 BUN (9 - 20 mg/dL) 24 H Creatinine (0.7 - 1.2 mg/dL) 3.0 H Estimated GFR (>60 ml/min) 21 L BUN/Creatinine Ratio (7 - 25 %) 8.0 Calcium (8.4 - 10.2 mg/dL) 7.3 L Phosphorus (2.5 - 4.5 mg/dL) 3.3 Magnesium (1.6 - 2.3 mg/dL) 1.8 Albumin (3.5 - 5.0 g/dL) 3.0 L Hematology CBC w Diff NO MAN DIFF REQ WBC (4.8 - 10.8 /CUMM) 4.5 L RBC (4.70 - 6.10 /CUMM) 2.88 L Hgb (14.0 - 18.0 G/DL) 7.8 L Hct (42 - 52 %) 23.4 L MCV (80.0 - 94.0 FL) 81.0 MCH (27.0 - 31.0 PG) 27.0 RDW (11.5 - 14.5 %) 16.3 H Plt Count (130 - 400 /CUMM) 168 MPV (7.4 - 10.4 FL) 9.4 Gran % (42.2 - 75.2 %) 68.9 Lymphocytes % (20.5 - 51.1 %) 24.3 Monocytes % (1.7 - 9.3 %) 6.3 Eosinophils % (0 - 5 %) 0.3 Basophils % (0.0 - 2.0 %) 0.2 Absolute Granulocytes (1.4 - 6.5 /CUMM) 3.1 Absolute Lymphocytes (1.2 - 3.4 /CUMM) 1.1 L Absolute Monocytes (0.10 - 0.60 /CUMM) 0.3 Absolute Eosinophils (0.0 - 0.7 /CUMM) 0 Absolute Basophils (0.0 - 0.2 /CUMM) 0 PUBS MCHC (33.0 - 37.0 G/DL) 33.3 Toxicology Random Vancomycin (ug/ml) 15.4 Last 24 Hours of Angus Results: Blood cultures April 12 negative Assessment/Plan Impression: Recurrent rigors for the past several days despite continuation of Vancomycin now Day 13 of treatment for presumed coag negative Staph line sepsis and despite removal of what was felt to be an infected Bao catheter, with repeat blood cultures over the past 2 weeks remaining negative and with his temperatures and white blood cell count remaining normal. He has no other obvious source of sepsis. Endocarditis is possible, though circle valve endocarditis secondary to coag-negative Staph is unusual and, as noted, his recent blood cultures remain negative. Suggestion: 1. Repeat echocardiogram 2. Consider LILIANE if transthoracic echo is negative 3. Vascular surgery follow-up as an outpatient regarding his fistula 4. Re-dose with Vancomycin today after dialysis per protocol; then follow off antibiotics
--- NOTE | 2017-04-14 20:05 | PN- Cardiology ---
Subjective Subjective: NO clinical change. MOre alert. Stable. Objective Vital Signs and I&Os Vital Signs Date Time Temp Pulse Resp B/P B/P Pulse O2 O2 Flow FiO2 Mean Ox Delivery Rate 04/14 1651 98.0 78 20 126/72 95 Room Air 04/14 1319 66 120/60 / 1318 66 120/60 / 1318 66 120/60 / 1317 66 120/60 / 1236 97.9 66 20 140/68 98 Room Air 04/14 0656 98.2 63 20 114/66 94 Room Air 04/14 0000 Nasal 2.5L Cannula 04/13 2318 98.5 63 18 104/52 99 04/13 2243 75 104/52 Intake & Output 04/14 1600 04/14 0800 04/14 0000 04/13 1600 04/13 0804/13 0000 Intake Total 300 150 810 240 400 760 Output Total 100 125 125 Balance 200 150 685 240 275 760 Intake, IV 0 250 10 Intake, Oral 300 150 560 240 400 750 Number 0 0 Bowel Movements Output, Urine 100 125 125 Patient 203 lb 200 lb 205 lb Weight Weight Chair scale Chair scale Chair scale Measurement Method Current Medications: Current Medications Sig/Julissa Start time Last Medication Dose Route Stop Time Status Admin Acetaminophen 650 MG Q6P PRN 03/27 2200 AC 04/11 PO 1727 Acetaminophen 1,000 MG Q8P PRN 03/27 2200 AC IV Albuterol Sulfate 2 PUF Q4P PRN 03/27 221 AC INH Alprazolam 0.5 MG BID PRN 04/12 0930 AC 04/14 PO 04/19 0929 1320 Aspirin Buffered 81 MG AT BEDTIME 03/28 220 AC 04/13 PO 2243 Atorvastatin Calcium 80 MG AT BEDTIME 03/28 220 AC 04/13 PO 2243 Benzonatate 100 MG TID 04/05 1000 AC 04/14 PO 1833 Budesonide/ 2 PUF BID 03/27 221 AC 04/14 Formoterol Fumarate INH 1321 Clonidine 0.1 MG BID 03/28 1000 AC 04/14 PO 1318 Clopidogrel Bisulfate 75 MG DAILY 04/12 1000 AC 04/14 PO 1319 Epoetin [place] 8,000 UNIT TuThSa PRN 04/14 0730 AC IV Epoetin [place] 10,000 UNIT PER PROTOCL PRN 04/11 1345 DC IV Famotidine 20 MG DAILY 04/03 1000 AC 04/14 PO 1319 Folic Acid 1 MG DAILY 03/28 1000 AC 04/14 PO 1318 Furosemide 80 MG DAILY 03/28 1000 AC 04/14 PO 1318 Insulin Aspart 0 TIDAC 03/28 0800 AC 04/13 SC 1741 Isosorbide 60 MG DAILY 03/28 1000 AC 04/14 Mononitrate PO 1317 Levothyroxine Sodium 0.2 MG DAILY AC 03/28 0700 AC 04/14 PO 0544 Melatonin 3 MG AT BEDTIME 04/09 2200 AC 04/13 PO 2243 Metoprolol Tartrate 100 MG DAILY 03/28 1000 AC 04/14 PO 1319 Polyethylene Glycol 17 GM DAILY 03/28 1353 AC 04/14 PO 1314 Prochlorperazine 10 MG Q6-PRN PRN 03/27 2215 AC 04/07 IV 1628 Senna/Docusate Sodium 2 TAB AT BEDTIME 03/28 2200 AC 04/12 PO 2225 Sertraline HCl 100 MG DAILY 03/28 1000 AC 04/14 PO 1319 Sevelamer Carbonate 1,600 MG WM 03/30 1700 AC 04/14 PO 1322 Simethicone 80 MG Q8 04/02 1402 AC 04/14 PO 1319 Tamsulosin HCl 0.4 MG DAILY 03/28 1000 AC 04/14 PO 1318 Trazodone HCl 150 MG QPM 03/28 2200 AC 04/13 PO 2242 Trimethobenzamide HCl 200 MG 4 TIMES/DAY PRN 03/31 1730 AC 04/01 IM 2057 Vancomycin HCl 750 MG ONCE ONE 04/14 1230 DC 04/14 Sodium Chloride 250 ML IV 04/14 1329 1648 Vancomycin HCl 750 MG ONCE ONE 04/14 1215 CAN IV 04/14 1216 Vancomycin HCl See Dose TuThSa PRN 04/14 1000 CAN Insts (1) IV Dose Instructions: (1)Vancomycin HCl: DOSE BASED ON RANDOM VANCO LEVELS Results Last 48 Hrs of Labs/Mics: Laboratory Tests 04/14/17 1200: 04/14/17 0828: Random Vancomycin Cancelled 04/14/17 0823: Calcium Cancelled, Phosphorus Cancelled, Magnesium Cancelled, Albumin Cancelled 04/14/17 0800: Anion Gap 10, Estimated GFR 21 L, BUN/Creatinine Ratio 8.0, Calcium 7.3 L, Phosphorus 3.3, Magnesium 1.8, Albumin 3.0 L, CBC w Diff NO MAN DIFF REQ, RBC 2.88 L, MCV 81.0, MCH 27.0, RDW 16.3 H, MPV 9.4, Gran % 68.9, Lymphocytes % 24.3, Monocytes % 6.3, Eosinophils % 0.3, Basophils % 0.2, Absolute Granulocytes 3.1, Absolute Lymphocytes 1.1 L, Absolute Monocytes 0.3, Absolute Eosinophils 0 , Absolute Basophils 0, PUBS MCHC 33.3, Random Vancomycin 15.4 04/13/17 1112: Random Vancomycin Cancelled 04/13/17 0815: Anion Gap 12, Estimated GFR 17 L, BUN/Creatinine Ratio 8.3, CBC w Diff NO MAN DIFF REQ, RBC 2.95 L, MCV 79.7 L, MCH 26.4 L, RDW 16.5 H, MPV 9.7, Gran % 68.5, Lymphocytes % 24.8, Monocytes % 6.2, Eosinophils % 0, Basophils % 0.5, Absolute Granulocytes 2.8, Absolute Lymphocytes 1.0 L, Absolute Monocytes 0.3, Absolute Eosinophils 0, Absolute Basophils 0, PUBS MCHC 33.1, Random Vancomycin 10.9 Assessment/Plan Assessment/Plan Assessment: #Viral gastroenteritis #Elevated troponin which is most likely related to demand ischemia in the setting of chronic kidney disease #CHFrEF #CKD stage V on dialysis #Chronic hypoxic respiratory failure related to COPD/obstructive sleep apnea on 2 L oxygen Recommendations: -Continue as outlined - Repeat echocardiogram requested by ID still pending -I suspect, if endocarditis is considered a possibility, that the patient might require a LILIANE however. -Please keep NPO after midnight tonite in case LILIANE required.
[2017-04-14 23:50] VITALS: BP 118/70
--- NOTE | 2017-04-15 06:56 | PN- Housestaff ---
BREE POOLE 04/15/17 0656: Subjective Follow-up For: - End-stage renal disease - Staph coag negative bacteremia - Rule out infective endocarditis. Complaints: no complaints Tele-Events Since Last Visit: Overnight, no telemetry events were noted. Patient remained in normal sinus rhythm. Heart rate in the range of 58-64. Subjective: Mr. Dodd is comfortable this morning. Did not have any complaints. Stated that he had rigors yesterday evening. But did not have any fever. Vitals were stable overnight. He remained afebrile. He had a session of dialysis yesterday. And last dose of vancomycin was given after checking the vancomycin levels, predialysis. Discussed with Hollis Larios MD. Review of Systems Constitutional: Reports: see HPI. Objective Last 24 Hrs of Vital Signs/I&O Vital Signs Date Time Temp Pulse Resp B/P B/P Pulse O2 O2 Flow FiO2 Mean Ox Delivery Rate 04/14 2350 98.9 66 18 118/70 100 Nasal 2.0L Cannula 04/14 2244 66 118/70 04/14 1651 98.0 78 20 126/72 95 Room Air 07/ 1319 66 120/60 07/06 1318 66 120/60 07/06 1318 66 120/60 07/06 1317 66 120/60 /06 1236 97.9 66 20 140/68 98 Room Air Intake & Output 04/15 0800 07/07 0000 06 1600 Intake Total 240 300 Output Total 100 100 Balance 140 200 Intake, Oral 240 300 Output, Urine 100 100 Physical Exam General Appearance: Alert Other Physical Findings: General Exam: AAOx3, No acute distress, Skin: No rashes, no breakdown HEENT: PERRLA, EOMI Neck: Supple, No JVD No cervical lymphadenopathy CVS: Reg Rate, Normal S1,S2, No MGR Resp: Normal air entry, no ronchi/rales Abdomen: Soft, No tenderness, Normal Bowel Sounds Neuro: Normal Speech, Strength 5/5 b/l x 4 extremities, Sensation intact, CN III -XII NL, Reflexes 2+ Extremities: No cyanosis, 1+ pedal edema Current Medications: Current Medications Sig/Julissa Start time Last Medication Dose Route Stop Time Status Admin Acetaminophen 650 MG Q6P PRN 03/27 2200 AC 04/11 PO 1727 Acetaminophen 1,000 MG Q8P PRN 03/27 220 AC IV Albuterol Sulfate 2 PUF Q4P PRN 03/27 221 AC INH Alprazolam 0.5 MG BID PRN 04/12 0930 AC 04/14 PO 04/19 09 2237 Aspirin Buffered 81 MG AT BEDTIME 03/28 2200 AC 04/14 PO 2237 Atorvastatin Calcium 80 MG AT BEDTIME 03/28 2200 AC 04/14 PO 2237 Benzonatate 100 MG TID 04/05 1000 AC 04/14 PO 2237 Budesonide/ 2 PUF BID 03/27 221 AC 04/14 Formoterol Fumarate INH 2237 Clonidine 0.1 MG BID 03/28 1000 AC 04/14 PO 2244 Clopidogrel Bisulfate 75 MG DAILY 04/12 1000 AC 04/14 PO 1319 Epoetin [place] 8,000 UNIT TuThSa PRN 04/14 0730 AC IV Epoetin [place] 10,000 UNIT PER PROTOCL PRN 04/11 1345 DC IV Famotidine 20 MG DAILY 04/03 1000 AC 04/14 PO 1319 Folic Acid 1 MG DAILY 03/28 1000 AC 04/14 PO 1318 Furosemide 80 MG DAILY 03/28 1000 AC 04/14 PO 1318 Insulin Aspart 0 TIDAC 03/28 0800 AC 04/13 SC 1741 Isosorbide 60 MG DAILY 03/28 1000 AC 04/14 Mononitrate PO 1317 Levothyroxine Sodium 0.2 MG DAILY AC 03/28 0700 AC 04/14 PO 0544 Melatonin 3 MG AT BEDTIME 04/09 2200 AC 04/14 PO 2237 Metoprolol Tartrate 100 MG DAILY 03/28 1000 AC 04/14 PO 1319 Polyethylene Glycol 17 GM DAILY 03/28 1353 AC 04/14 PO 1314 Prochlorperazine 10 MG Q6-PRN PRN 03/27 2215 AC 04/07 IV 1628 Senna/Docusate Sodium 2 TAB AT BEDTIME 03/28 2200 AC 04/14 PO 2237 Sertraline HCl 100 MG DAILY 03/28 1000 AC 04/14 PO 1319 Sevelamer Carbonate 1,600 MG WM 03/30 1700 AC 04/14 PO 1322 Simethicone 80 MG Q8 04/02 1402 AC 04/14 PO 2237 Tamsulosin HCl 0.4 MG DAILY 03/28 1000 AC 04/14 PO 1318 Trazodone HCl 150 MG QPM 03/28 2200 AC 04/14 PO 2238 Trimethobenzamide HCl 200 MG 4 TIMES/DAY PRN 03/31 1730 AC 04/01 IM 2057 Vancomycin HCl 750 MG ONCE ONE 04/14 1230 DC 04/14 Sodium Chloride 250 ML IV 04/14 1329 1648 Vancomycin HCl 750 MG ONCE ONE 04/14 1215 CAN IV 04/14 1216 Vancomycin HCl See Dose TuThSa PRN 04/14 1000 CAN Insts (1) IV Dose Instructions: (1)Vancomycin HCl: DOSE BASED ON RANDOM VANCO LEVELS Last 24 Hrs of Lab/Angus Results Last 24 Hrs of Labs/Mics: Laboratory Tests 04/14/17 1200: 04/14/17 0828: Random Vancomycin Cancelled 04/14/17 0823: Calcium Cancelled, Phosphorus Cancelled, Magnesium Cancelled, Albumin Cancelled 04/14/17 0800: Anion Gap 10, Estimated GFR 21 L, BUN/Creatinine Ratio 8.0, Calcium 7.3 L, Phosphorus 3.3, Magnesium 1.8, Albumin 3.0 L, CBC w Diff NO MAN DIFF REQ, RBC 2.88 L, MCV 81.0, MCH 27.0, RDW 16.3 H, MPV 9.4, Gran % 68.9, Lymphocytes % 24.3, Monocytes % 6.3, Eosinophils % 0.3, Basophils % 0.2, Absolute Granulocytes 3.1, Absolute Lymphocytes 1.1 L, Absolute Monocytes 0.3, Absolute Eosinophils 0 , Absolute Basophils 0, PUBS MCHC 33.3, Random Vancomycin 15.4 Assessment/Plan Assessment: He is a 67 year old man with PMH of CAD s/p stents (Oct 2016), COPD, T2DM, neuropathy, MILES noncompliant with CPAP, HFpEF, CKD stage 5 s/p AV fistula (January 2017), multiple admits for chest pain, dyspnea and elevated troponins, initiated on HD (TTS) via [facility] during recent admission for fluid overload (03/15-03/23) is being currently managed for staph coag negative bacteremia likely from the catheter tip. In the last 24 hours, vitals remained stable. Lab findings indicated no leukocytosis, H&H stable, hemoglobin 7.8, hematocrit 23.4. Electrolytes-sodium 134, BUN 24, serum creatinine 3.0, random vancomycin level (predialysis)- 15.4. Differential diagnosis: #1 bacteremia (coag-negative staph) #2 volume overload # 3 end-stage renal disease on hemodialysis Below is the problem list and plan: #1 staph coag negative bacteremia-until proven otherwise, tip of catheter was seeded, but source is still unclear. A new catheter was placed today. No hemodialysis session today. Repeat blood cultures are negative so far. If infection is indeed the cause of these rigors, source is unclear. Transthoracic and transesophageal echocardiogram did not reveal any evidence for vegetations/ infective endocarditis. Vancomycin has been discontinued yesterday. #2 hemodialysis for end-stage renal disease-plan to continue hemodialysis as per schedule. Discussed with the refund specialist. #3 history of coronary artery disease, and elevated troponin-0.18. Last troponin was slightly elevated, was attributed to kidney disease. #4 hypertension-blood pressure adequately controlled on Lopressor, isosorbide mononitrate, Lasix and clonidine. Continue to watch blood pressure closely. #5 diabetes-blood sugars remain stable. Continue current schedule of insulin sliding scale. #6 DVT prophylaxis-currently pharmacologically. Continue Alps. Problem List: 1. Infection, dialysis vascular access 2. COPD (chronic obstructive pulmonary disease) 3. AV fistula Pain Ratin Pain Location: none Pain Goal: Pain 4 or less Pain Plan: tylenol prn Tomorrow's Labs & Rationales: no labs necessary. ANMOL MOLINA 04/15/17 1425: Attending MD Review Statement Attending Statement Attending MD Statement: examined this patient, discuss w/resident/PA/HYDRODYNAMICIST, agreed w/resident/PA/HYDRODYNAMICIST, discussed with family, reviewed EMR data (avail), discussed with nursing, discussed with case mgmt, reviewed images, amended to note Attending Assessment/Plan: Assessment Chills and rigors likely sepsis staph coag negative- patient has been afebrile despite intermittent chills; presumed source was dialysis catheter which has been removed; dialysis catheter tip is growing staph coag negative. Sensitivities show that it is sensitive to oxacillin. Fluid overload improved. Elevated troponin presumably from chronic kidney disease; CAD Diabetes End-stage renal disease on hemodialysis Recent acute gastritis likely viral Acute and chronic anemia Transaminitis Hyponatremia Thrombocytopenia Plan Chest x-ray shows signs of CHF or pleural fluid underwent HD LILIANE negative for vegetative lesions as per cardiology f/u ID and nephro for d/c plans. completed abx course during the hospital stay. Anticipate d/c soon to home with o/p f/u nephrology with dialysis.
[2017-04-15 07:15] VITALS: BP 116/62
--- NOTE | 2017-04-15 13:35 | PN- Cardiology ---
Objective Vital Signs and I&Os Vital Signs Date Time Temp Pulse Resp B/P B/P Pulse O2 O2 Flow FiO2 Mean Ox Delivery Rate 04/15 08 Room Air 04/15 0715 98.1 62 18 116/62 100 Nasal 2.0L Cannula 04/14 2350 98.9 66 18 118/70 100 Nasal 2.0L Cannula 04/14 2244 66 118/70 04/14 1651 98.0 78 20 126/72 95 Room Air Intake & Output 04/15 0804/15 0000 04/14 1600 04/14 0804/14 0000 Intake Total 240 300 150 810 Output Total 100 100 125 Balance 140 200 150 685 Intake, IV 0 250 Intake, Oral 240 300 150 560 Number 0 0 Bowel Movements Output, Urine 100 100 125 Patient 203 lb 203 lb Weight Weight Chair scale Measurement Method Current Medications: Current Medications Sig/Julissa Start time Last Medication Dose Route Stop Time Status Admin Acetaminophen 650 MG Q6P PRN 03/27 220 AC 04/11 PO 1727 Acetaminophen 1,000 MG Q8P PRN 03/27 220 AC IV Albuterol Sulfate 2 PUF Q4P PRN 03/27 221 AC INH Alprazolam 0.5 MG BID PRN 04/12 0930 AC 04/14 PO 04/19 0929 2237 Aspirin Buffered 81 MG AT BEDTIME 03/28 220 AC 04/14 PO 223 Atorvastatin Calcium 80 MG AT BEDTIME 03/28 2200 AC 04/14 PO 2237 Benzonatate 100 MG TID 04/05 1000 AC 04/14 PO 2237 Budesonide/ 2 PUF BID 03/27 2211 AC 04/14 Formoterol Fumarate INH 2237 Clonidine 0.1 MG BID 03/28 1000 AC 04/14 PO 2244 Clopidogrel Bisulfate 75 MG DAILY 04/12 1000 AC 04/14 PO 1319 Epoetin [place] 8,000 UNIT TuThSa PRN 04/14 0730 AC IV Famotidine 20 MG DAILY 04/03 1000 AC 04/14 PO 1319 Folic Acid 1 MG DAILY 03/28 1000 AC 04/14 PO 1318 Furosemide 80 MG DAILY 03/28 1000 AC 04/14 PO 1318 Insulin Aspart 0 TIDAC 03/28 0800 AC 04/13 SC 1741 Isosorbide 60 MG DAILY 03/28 1000 AC 04/14 Mononitrate PO 1317 Levothyroxine Sodium 0.2 MG DAILY AC 03/28 0700 AC 04/14 PO 0544 Lidocaine 0 .STK-MED ONE 04/15 1120 DC TOP Melatonin 3 MG AT BEDTIME 04/09 2200 AC 04/14 PO 2237 Metoprolol Tartrate 100 MG DAILY 03/28 1000 AC 04/14 PO 1319 Polyethylene Glycol 17 GM DAILY 03/28 1353 AC 04/14 PO 1314 Prochlorperazine 10 MG Q6-PRN PRN 03/27 2215 AC 04/07 IV 1628 Senna/Docusate Sodium 2 TAB AT BEDTIME 03/28 2200 AC 04/14 PO 2237 Sertraline HCl 100 MG DAILY 03/28 1000 AC 04/14 PO 1319 Sevelamer Carbonate 1,600 MG WM 03/30 1700 AC 04/14 PO 1322 Simethicone 80 MG Q8 04/02 1402 AC 04/14 PO 2237 Tamsulosin HCl 0.4 MG DAILY 03/28 1000 AC 04/14 PO 1318 Trazodone HCl 150 MG QPM 03/28 2200 AC 04/14 PO 2238 Trimethobenzamide HCl 200 MG 4 TIMES/DAY PRN 03/31 1730 AC 04/01 IM 2057 Results Last 48 Hrs of Labs/Mics: Laboratory Tests 04/15/17 0753: Anion Gap 11, Estimated GFR 26 L, BUN/Creatinine Ratio 7.6 04/14/17 1200: 04/14/17 0828: Random Vancomycin Cancelled 04/14/17 0823: Calcium Cancelled, Phosphorus Cancelled, Magnesium Cancelled, Albumin Cancelled 04/14/17 0800: Anion Gap 10, Estimated GFR 21 L, BUN/Creatinine Ratio 8.0, Calcium 7.3 L, Phosphorus 3.3, Magnesium 1.8, Albumin 3.0 L, CBC w Diff NO MAN DIFF REQ, RBC 2.88 L, MCV 81.0, MCH 27.0, RDW 16.3 H, MPV 9.4, Gran % 68.9, Lymphocytes % 24.3, Monocytes % 6.3, Eosinophils % 0.3, Basophils % 0.2, Absolute Granulocytes 3.1, Absolute Lymphocytes 1.1 L, Absolute Monocytes 0.3, Absolute Eosinophils 0 , Absolute Basophils 0, PUBS MCHC 33.3, Random Vancomycin 15.4 Assessment/Plan Assessment/Plan Assessment: #Viral gastroenteritis #Elevated troponin which is most likely related to demand ischemia in the setting of chronic kidney disease #CHFrEF #CKD stage V on dialysis #Chronic hypoxic respiratory failure related to COPD/obstructive sleep apnea on 2 L oxygen Recommendations: -Continue as outlined - The patient's repeat transthoracic echocardiogram today showed no significant change from previously. The left ventricular function had improved slightly. There was no evidence of vegetation. -Subsequently, a transesophageal echo cardiac gram was performed. The transesophageal echo cardiac gram sodium evidence of valvular vegetations. The indwelling catheter was visualized in the right atrium and showed no evidence of associated lesions. Overall, there was no evidence of vegetation.
--- NOTE | 2017-04-15 13:36 | PN- Nephrology ---
Assessment/Plan Assessment: 1. ESRD: no HD need today 2. Line sepsis: coag neg Staph via BC & cath tip --> removed; last Vanco yesterday 3. SOB: improved; but still prob bilat effusions & will UF w HD tomorrow Suggestion: HD tomorrow --> UF another 3 liters Subjective Subjective: Continues to have episodic 'whole body shakes' ? relieved by hot coffee No fever No cough; no vomiting LILIANE done today no vegetations Objective Vital Signs and I&Os Vital Signs Date Time Temp Pulse Resp B/P B/P Pulse O2 O2 Flow FiO2 Mean Ox Delivery Rate 04/15 08 Room Air 04/15 0715 98.1 62 18 116/62 100 Nasal 2.0L Cannula 04/14 2350 98.9 66 18 118/70 100 Nasal 2.0L Cannula 04/14 2244 66 118/70 04/14 1651 98.0 78 20 126/72 95 Room Air Intake & Output 04/15 1600 04/15 0400 04/14 1600 04/14 0400 04/13 1600 04/13 0400 Intake Total 240 450 810 640 760 Output Total 100 100 125 125 Balance 140 350 685 515 760 Intake, IV 0 250 10 Intake, Oral 240 450 560 640 750 Number 0 0 Bowel Movements Output, Urine 100 100 125 125 Patient 203 lb 203 lb 200 lb 205 lb Weight Weight Chair scale Chair scale Chair scale Measurement Method Physical Exam General Appearance: well developed/nourished, no apparent distress, alert Head: atraumatic, normal appearance Ears, Nose, Throat: normal ENT inspection Neck: normal inspection (R IJ HD cath) Respiratory: decreased breath sounds (bases) Cardiovascular: regular rate/rhythm Abdomen: soft, non-tender Extremities: + bruit KAREY AVF - not mature Skin: intact, normal color Current Medications: Current Medications Sig/Julissa Start time Last Medication Dose Route Stop Time Status Admin Acetaminophen 650 MG Q6P PRN 03/27 2200 AC 04/11 PO 172 Acetaminophen 1,000 MG Q8P PRN 03/27 2200 AC IV Albuterol Sulfate 2 PUF Q4P PRN 03/27 2215 AC INH Alprazolam 0.5 MG BID PRN 04/12 930 AC 04/14 PO 04/19 Aspirin Buffered 81 MG AT BEDTIME 03/28 2200 AC 04/14 PO 2237 Atorvastatin Calcium 80 MG AT BEDTIME 03/28 2200 AC 04/14 PO 2237 Benzonatate 100 MG TID 04/05 1000 AC 04/14 PO 2237 Budesonide/ 2 PUF BID 03/27 2211 AC 04/14 Formoterol Fumarate INH 2237 Clonidine 0.1 MG BID 03/28 1000 AC 04/14 PO 2244 Clopidogrel Bisulfate 75 MG DAILY 04/12 1000 AC 04/14 PO 1319 Epoetin [place] 8,000 UNIT TuThSa PRN 04/14 0730 AC IV Famotidine 20 MG DAILY 04/03 1000 AC 04/14 PO 1319 Folic Acid 1 MG DAILY 03/28 1000 AC 04/14 PO 1318 Furosemide 80 MG DAILY 03/28 1000 AC 04/14 PO 1318 Insulin Aspart 0 TIDAC 03/28 0800 AC 04/13 SC 1741 Isosorbide 60 MG DAILY 03/28 1000 AC 04/14 Mononitrate PO 1317 Levothyroxine Sodium 0.2 MG DAILY AC 03/28 0700 AC 04/14 PO 0544 Lidocaine 0 .STK-MED ONE 04/15 1120 DC TOP Melatonin 3 MG AT BEDTIME 04/09 2200 AC 04/14 PO 2237 Metoprolol Tartrate 100 MG DAILY 03/28 1000 AC 04/14 PO 1319 Polyethylene Glycol 17 GM DAILY 03/28 1353 AC 04/14 PO 1314 Prochlorperazine 10 MG Q6-PRN PRN 03/27 2215 04/07 IV 1628 Senna/Docusate Sodium 2 TAB AT BEDTIME 03/28 2200 AC 04/14 PO 2237 Sertraline HCl 100 MG DAILY 03/28 1000 AC 04/14 PO 1319 Sevelamer Carbonate 1,600 MG WM 03/30 1700 AC 04/14 PO 1322 Simethicone 80 MG Q8 04/02 1402 AC 04/14 PO 2237 Tamsulosin HCl 0.4 MG DAILY 03/28 1000 AC 04/14 PO 1318 Trazodone HCl 150 MG QPM 03/28 2200 AC 04/14 PO 2238 Trimethobenzamide HCl 200 MG 4 TIMES/DAY PRN 03/31 1730 AC 04/01 IM 2057 Vancomycin HCl 750 MG ONCE ONE 04/14 1230 DC 04/14 Sodium Chloride 250 ML IV 04/14 1329 1648 Results Pertinent Lab Results: Laboratory Tests 04/15 04/14 04/14 04/14 0753 1200 0828 0823 Chemistry Sodium (137 - 145 mmol/L) 133 L Potassium (3.5 - 5.1 mmol/L) 3.7 Chloride (98 - 107 mmol/L) 98 Carbon Dioxide (22 - 30 mmol/L) 24 Anion Gap (5 - 16) 11 BUN (9 - 20 mg/dL) 19 6 L Creatinine (0.7 - 1.2 mg/dL) 2.5 H Estimated GFR (>60 ml/min) 26 L BUN/Creatinine Ratio (7 - 25 %) 7.6 Calcium Cancelled Phosphorus Cancelled Magnesium Cancelled Albumin Cancelled Toxicology Random Vancomycin Cancelled 04/14 04/13 0800 1112 Chemistry Sodium (137 - 145 mmol/L) 134 L Potassium (3.5 - 5.1 mmol/L) 3.8 Chloride (98 - 107 mmol/L) 97 L Carbon Dioxide (22 - 30 mmol/L) 27 Anion Gap (5 - 16) 10 BUN (9 - 20 mg/dL) 24 H Creatinine (0.7 - 1.2 mg/dL) 3.0 H Estimated GFR (>60 ml/min) 21 L BUN/Creatinine Ratio (7 - 25 %) 8.0 Calcium (8.4 - 10.2 mg/dL) 7.3 L Phosphorus (2.5 - 4.5 mg/dL) 3.3 Magnesium (1.6 - 2.3 mg/dL) 1.8 Albumin (3.5 - 5.0 g/dL) 3.0 L Hematology CBC w Diff NO MAN DIFF REQ WBC (4.8 - 10.8 /CUMM) 4.5 L RBC (4.70 - 6.10 /CUMM) 2.88 L Hgb (14.0 - 18.0 G/DL) 7.8 L Hct (42 - 52 %) 23.4 L MCV (80.0 - 94.0 FL) 81.0 MCH (27.0 - 31.0 PG) 27.0 RDW (11.5 - 14.5 %) 16.3 H Plt Count (130 - 400 /CUMM) 168 MPV (7.4 - 10.4 FL) 9.4 Gran % (42.2 - 75.2 %) 68.9 Lymphocytes % (20.5 - 51.1 %) 24.3 Monocytes % (1.7 - 9.3 %) 6.3 Eosinophils % (0 - 5 %) 0.3 Basophils % (0.0 - 2.0 %) 0.2 Absolute Granulocytes (1.4 - 6.5 /CUMM) 3.1 Absolute Lymphocytes (1.2 - 3.4 /CUMM) 1.1 L Absolute Monocytes (0.10 - 0.60 /CUMM) 0.3 Absolute Eosinophils (0.0 - 0.7 /CUMM) 0 Absolute Basophils (0.0 - 0.2 /CUMM) 0 PUBS MCHC (33.0 - 37.0 G/DL) 33.3 Toxicology Random Vancomycin (ug/ml) 15.4 Cancelled 04/13 0815 Chemistry Sodium (137 - 145 mmol/L) 134 L Potassium (3.5 - 5.1 mmol/L) 3.7 Chloride (98 - 107 mmol/L) 97 L Carbon Dioxide (22 - 30 mmol/L) 25 Anion Gap (5 - 16) 12 BUN (9 - 20 mg/dL) 30 H Creatinine (0.7 - 1.2 mg/dL) 3.6 H Estimated GFR (>60 ml/min) 17 L BUN/Creatinine Ratio (7 - 25 %) 8.3 Hematology CBC w Diff NO MAN DIFF REQ WBC (4.8 - 10.8 /CUMM) 4.1 L RBC (4.70 - 6.10 /CUMM) 2.95 L Hgb (14.0 - 18.0 G/DL) 7.8 L Hct (42 - 52 %) 23.5 L MCV (80.0 - 94.0 FL) 79.7 L MCH (27.0 - 31.0 PG) 26.4 L RDW (11.5 - 14.5 %) 16.5 H Plt Count (130 - 400 /CUMM) 155 MPV (7.4 - 10.4 FL) 9.7 Gran % (42.2 - 75.2 %) 68.5 Lymphocytes % (20.5 - 51.1 %) 24.8 Monocytes % (1.7 - 9.3 %) 6.2 Eosinophils % (0 - 5 %) 0 Basophils % (0.0 - 2.0 %) 0.5 Absolute Granulocytes (1.4 - 6.5 /CUMM) 2.8 Absolute Lymphocytes (1.2 - 3.4 /CUMM) 1.0 L Absolute Monocytes (0.10 - 0.60 /CUMM) 0.3 Absolute Eosinophils (0.0 - 0.7 /CUMM) 0 Absolute Basophils (0.0 - 0.2 /CUMM) 0 PUBS MCHC (33.0 - 37.0 G/DL) 33.1 Toxicology Random Vancomycin (ug/ml) 10.9
[2017-04-15 13:38] VITALS: BP 130/70
[2017-04-15 14:09] VITALS: BP 130/70
--- NOTE | 2017-04-15 17:00 | ECHOCARDIOGRAM REPORT ---
DEEPIKA BRANDT Age: 67 : 1950 Gender: M Exam Date: 04/15/2017 11:39 Exam Location: [place] Ht (in): 70 Wt (lb): 203 BSA: 2.15 BP: 120 / 72 Ordering Physician: BREE POOLE MD Referring Physician: BREE POOLE MD Technologist: Luca Babb [facility] Room Number: [id number] Indications: INFECTIVE ENDOCARDITIS Rhythm: Sinus Technical Quality: Good FINDINGS Left Ventricle Normal size left ventricle. [place] akinetic. Mildly abnormal left ventricular ejection fraction estimated at 45-50%. Right Ventricle Right ventricle at upper limits of normal. Right Atrium Mild right atrial dilatation. Left Atrium Moderate left atrial dilatation. Mitral Valve Mitral valve thickened. Moderate mitral annular calcification. Mild mitral regurgitation. Aortic Valve Trileaflet aortic valve. Diffuse thickening (sclerosis) of the aortic valve cusps without reduced excursion. No aortic stenosis. Trace aortic regurgitation. Tricuspid Valve Tricuspid valve not well visualized, grossly normal. Mild tricuspid regurgitation. Right ventricular systolic pressure estimated at 44 mmHg. Pulmonic Valve Pulmonic valve not well visualized, grossly normal. Pericardium Small pericardial effusion. Great Vessels Normal size aortic root and proximal ascending aorta. CONCLUSIONS 1. Mild to moderate aortic sclerosis is present with minimal aortic insufficiency. 2. MItral leaflet thickening is present with mild to moderate anular calcification and mild mitral insufficiency with moderate left atrial enlargement. 3. A very small pericardial effusion is present 4. The left ventricular chamber size is upper normal. [place] of the apical segments is present with an ejection fraction of 45-50%. Mild eccentric hypertrophy is present. 5. The right heart chambers are upper normal in size with mild tricuspid insufficiency and an RV systolic pressure of 44 mmHg. 6. A catheter isnoted in the right atrial cavity. 7. There are no definite vegetations detected. If clinically indicated a LILIANE would better exclude valvular vegetative lesions. Lilibeth Lee M.D. (Electronically Signed) Final Date: 15 April 2017 16:59 MEASUREMENTS (Male / Female) Normal Values 2D ECHO LV Diastolic Diameter PLAX 5.5 cm 4.2 - 5.9 / 3.9 - 5.3 cm LV Systolic Diameter PLAX 4.0 cm 2.1 - 4.0 cm LV Fractional Shortening PLAX 27.3 % 25 - 46 % LV Ejection Fraction 2D Teich 52.5 % IVS Diastolic Thickness 1.1 cm LVPW Diastolic Thickness 1.2 cm LV Relative Wall Thickness 0.4 RV Internal Dim ED PLAX 4.2 cm 1.9 - 3.8 cm LVOT Diameter 2.1 cm Aortic Root Diameter 3.1 cm LA Systolic Diameter LX 3.8 cm 3.0 - 4.0 / 2.7 - 3.8 cm Ascending Aorta Diameter 3.3 cm DOPPLER AV Peak Velocity 170.0 cm/s AV Peak Gradient 11.6 mmHg AV Mean Velocity 110.0 cm/s AV Mean Gradient 6.0 mmHg AV Velocity Time Integral 40.0 cm LVOT Peak Velocity 82.0 cm/s LVOT Peak Gradient 2.7 mmHg LVOT Mean Velocity 44.9 cm/s LVOT Mean Gradient 1.0 mmHg LVOT Velocity Time Integral 16.8 cm LVOT Stroke Volume 56.7 cm AV Area Cont Eq vti 1.4 cm AV Area Cont Eq pk 1.6 cm MV Peak Velocity 118.0 cm/s MV Peak Gradient 5.6 mmHg MV Mean Velocity 68.7 cm/s MV Mean Gradient 2.0 mmHg Mitral E Point Velocity 114.0 cm/s Mitral A Point Velocity 67.1 cm/s Mitral E to A Ratio 1.7 MV PHT Velocity 124.0 cm/s MV Deceleration Barron 345.0 cm/s MV Pressure Half Time 107.8 ms MV Area PHT 2.0 cm MV Deceleration Time 201.0 ms TR Peak Velocity 312.0 cm/s TR Peak Gradient 38.9 mmHg Right Atrial Pressure 10.0 mmHg Pulmonary Artery Systolic Pressu 48.9 mmHg Right Ventricular Systolic Press 48.9 mmHg PV Peak Velocity 86.9 cm/s PV Peak Gradient 3.0 mmHg PV Mean Velocity 63.2 cm/s PV Mean Gradient 2.0 mmHg PV Velocity Time Integral 23.8 cm LV E' Lateral Velocity 8.9 cm/s Mitral E to LV E' Lateral Ratio 12.9 LV E' Septal Velocity 4.2 cm/s Mitral E to LV E' Septal Ratio 27.2
--- NOTE | 2017-04-15 19:56 | ECHOCARDIOGRAM REPORT ---
DEEPIKA BRANDT Age: 67 : Gender: M Exam Date: 04/15/2017 08:07 Exam Location: [facility] Ht (in): 70 Wt (lb): 203 BSA: 2.15 BP: 129 / 67 Ordering Physician: VIET POOLE MD Referring Physician: VIET POOLE MD Technologist: Luca Babb RDCS Room Number: 176-1 Indications: INFECTIVE ENDOCARDITIS Rhythm: Technical Quality: Medications Ease of Transducer Insertion Complications Technical Difficulty FINDINGS Left Ventricle Normal size left ventricle. [place] hypokinetic. Right Ventricle Right ventricle at upper limits of normal. Right Atrium Mild right atrial dilatation. Left Atrium Left atrial dilatation. LA Appendage Normal left atrial appendage. IA Septum Normal interatrial septum. Mitral Valve Mitral valve thickened. Mild mitral regurgitation. Aortic Valve Trileaflet aortic valve. Diffuse thickening (sclerosis) of the aortic valve cusps without reduced excursion. No aortic stenosis. Trace aortic regurgitation. Tricuspid Valve Tricuspid valve not well visualized, grossly normal. Mild tricuspid regurgitation. Pulmonic Valve Pulmonic valve not well visualized, grossly normal. Trace to mild pulmonic regurgitation. Pericardium Small pericardial effusion. Left pleural effusion. Great Vessels Normal size aortic root. Normal size aortic root and proximal ascending aorta. Grade I plaque seen in the aortic arch. CONCLUSIONS 1. There are no vegetative lesions detected on this examination. 2. Aortic sclerosis is present with minimal aortic insufficiency. 3. Mitral leaflet thickening is present with mild mitral insufficiency and left atrial enlargement. 4. The left atrial appendage is normal with no thrombus detected. 5. The pulmonary venous anatomy is normal bilaterally 6. The left ventricular chamber size is normal. Apical hypokinesia is present. 7. The right heart chambers are enlarged. Mild tricuspid and pulmonic insufficiency are present. 8. There is no atrial level shunt present. 9. A catheter extends into the mid portion of the right atrial cavity and shows no evidence of thrombus or vegetation. 10. Mild atheromatous plaque is present in the distal aortic arch. 11. A very small pericardial effusion is present; a left pleural effusion is also noted Lilibeth Lee M.D. (Electronically Signed) Final Date: 15 April 2017 19:56 MEASUREMENTS (Male / Female) Normal Values
== END 2017-04-15 16:25 | disposition home health service (06) | DRG 314 ==
LOC: ERH 13:40 → ENTRNSPT 17:17 → 1NO 19:46 → ERHI 19:46 → ENRESERV 20:33 → 1NO 23:38 → CMPTRNSPT 03-28 07:13 → 1NO 03-28 07:57 → ENPENDDIS 04-15 15:15 → 1NO 04-15 16:25
PROVIDERS: Emergency Medicine; Internal Medicine; Internal Medicine Endocrinology, Diabetes & Metabolism; Internal Medicine Hematology & Oncology; Internal Medicine Infectious Disease; Internal Medicine Interventional Cardiology; Internal Medicine Nephrology; Student in an Organized Health Care Education/Training Program; ADMIT Student in an Organized Health Care Education/Training Program
PROC: 5A1D60Z (ICD-10-PCS; principal; 2017-03-29)
PROC: 30233N1 Transfusion of Nonautologous Red Blood Cells into Peripheral Vein, Percutaneous Approach (ICD-10-PCS; 2017-04-05)
PROC: 0JPTXXZ Removal of Tunneled Vascular Access Device from Trunk Subcutaneous Tissue and Fascia, External Approach (ICD-10-PCS; 2017-04-08)
PROC: 02PYX3Z Removal of Infusion Device from Great Vessel, External Approach (ICD-10-PCS; 2017-04-08)
PROC: 0JH63XZ Insertion of Tunneled Vascular Access Device into Chest Subcutaneous Tissue and Fascia, Percutaneous Approach (ICD-10-PCS; 2017-04-11)
PROC: 02H633Z Insertion of Infusion Device into Right Atrium, Percutaneous Approach (ICD-10-PCS; 2017-04-11)
DX: T80.211A Bloodstream infection due to central venous catheter, initial encounter (principal); N18.6 End stage renal disease; I13.2 Hypertensive heart and chronic kidney disease with heart failure and with stage 5 chronic kidney disease, or end stage renal disease; J96.11 Chronic respiratory failure with hypoxia; A41.9 Sepsis, unspecified organism; I24.8 Other forms of acute ischemic heart disease; E11.22 Type 2 diabetes mellitus with diabetic chronic kidney disease; D69.6 Thrombocytopenia, unspecified; I50.32 Chronic diastolic (congestive) heart failure; E87.1 Hypo-osmolality and hyponatremia; E11.42 Type 2 diabetes mellitus with diabetic polyneuropathy; Z99.2 Dependence on renal dialysis; Z79.4 Long term (current) use of insulin; J44.9 Chronic obstructive pulmonary disease, unspecified; Z99.81 Dependence on supplemental oxygen; I25.10 Atherosclerotic heart disease of native coronary artery without angina pectoris; Z95.5 Presence of coronary angioplasty implant and graft; G47.33 Obstructive sleep apnea (adult) (pediatric); Z91.19 Patient's noncompliance with other medical treatment and regimen; N28.1 Cyst of kidney, acquired; E78.5 Hyperlipidemia, unspecified; K59.00 Constipation, unspecified; G89.29 Other chronic pain; M54.9 Dorsalgia, unspecified; Z85.850 Personal history of malignant neoplasm of thyroid; E11.51 Type 2 diabetes mellitus with diabetic peripheral angiopathy without gangrene; Z87.891 Personal history of nicotine dependence; A08.4 Viral intestinal infection, unspecified; D63.1 Anemia in chronic kidney disease; D50.9 Iron deficiency anemia, unspecified
CPT/HCPCS: 04007; 1NP; 87070; 87075; 87184; 87205; 36415; 74176; 77001; 78226; 81001; 82436; 86920; 87040; 87086; 87147; 93005; 93010; 93306; 93325; 96374; 97116-GO; 97161-GP; A9537; C1752; C1769; C8929; J0780; J0885; J1644; J1940; J2405; J2550; J3250; J3370; J3490; J7040; P9016; Q9957

== ENCOUNTER 2017-04-22 09:26 | Inpatient (IN) | payer OTHER, MEDICARE ==
[~2017-04-22] VITALS: Ht 177.8 cm; Wt 87.2 kg
[~2017-04-22 09:26] MED LIST changes: +NEPRO CARB STE237 ML PO; +SENNA S TABLET1 EACH PO; -VICTOZA 3-0.6 MG/0.1 PO; +VICTOZA 3-0.6 MG/0.1 SC
--- NOTE | 2017-04-22 09:37 | ED GENERAL ADULT ---
History of Present Illness General Chief Complaint: General Adult Stated Complaint: BIBA, HYPOTENSION Source: patient Exam Limitations: no limitations Allergies Coded Allergies: Iodinated Contrast- Oral and IV Dye (PER PT STATES HIS KIDNEYS ARE SHOT HE IS ON DIALYSIS 03/27/17) morphine (Mild, LOOPY 01/18/17) hydromorphone (DEPRESSED RESPIRATIONS 01/18/17) Triage Nurses Notes Reviewed? yes Onset: Abrupt Duration: hour(s): Timing: recent history HPI: 04/22/17 10:30 AM 67-year-old man presents to the emergency department for hypotension and weakness. The patient has a history of renal failure and insulin-dependent diabetes. He was seen at Manuel Agrawal MD's office today and was referred to the ED by ambulance. He denies chest pain or shortness of breath. He is due for dialysis tomorrow. The onset of the symptoms of been abrupt, the duration is been just today, the severity is significant as his symptoms required him to come to the ED for care. (ERMIAS SHARIF,TESFAYE Fernandez) Vital Signs & Intake/Output Vital Signs & Intake/Output Vital Signs Date Time Temp Pulse Resp B/P B/P Pulse O2 O2 Flow FiO2 Mean Ox Delivery Rate 04/22 1500 98.8 60 20 142/64 100 Room Air Room Air 04/22 1337 96.0 68 20 127/63 100 Room Air 04/22 1131 96.0 70 20 145/67 100 Room Air 04/22 1054 100 Room Air 04/22 0947 97.0 61 18 114/60 100 Room Air Reconcile Medications Albuterol Sulfate (Proair Hfa) 90 MCG HFA.AER.AD 2 PUF INH Q4H PRN SOB ( Reported) Alprazolam (Xanax) 0.5 MG TABLET 1 TAB PO BID PRN ANXIETY Aspirin (Ecotrin*) 81 MG TABLET.DR 1 TAB PO QPM CAD (Reported) Atorvastatin Calcium (Lipitor) 80 MG TABLET 1 TAB PO QPM CHOLESTEROL ( Reported) Budesonide/Formoterol Fumarate (Symbicort 160-4.5 Mcg Inhaler) 160 MCG-4.5 MCG/ ACTUATION HFA.AER.AD 2 PUF INH BID COPD Rinse your mouth after using inhaler. Clonidine HCl 0.1 MG TABLET 1 TAB PO BID BP (Reported) Clopidogrel Bisulfate (Plavix) 75 MG TABLET 75 MG PO DAILY ANTIPLATELET Folic Acid 1 MG TABLET 1 TAB PO DAILY SUPPLEMENT (Reported) Furosemide (Lasix) 40 MG TABLET 80 MG PO DAILY diuresis Insulin Glargine,Hum.rec.anlog (Lantus Solostar) 100 UNIT/ML (3 ML) INSULN.PEN 5 UNIT SC BID DIABETES (Reported) Isosorbide Mononitrate (Isosorbide Mononitrate ER) 60 MG TAB.ER.24H 1 TAB PO DAILY CAD Levothyroxine Sodium (Synthroid) 200 MCG TABLET 0.2 MG PO DAILY AC THYROID Liraglutide (Victoza 3-Zeus) 0.6 MG/0.1 ML (18 MG/3 ML) PEN.INJCTR 1.8 MG SC QPM DIABETES (Reported) Metoprolol Tartrate 100 MG TABLET 1 TAB PO DAILY HEART (Reported) Nut.tx.impaired Renal Fxn,Soy (Nepro Carb Steady) (Unknown Strength) LIQUID 120 ML PO BID UNKNOWN (Reported) Ramelteon (Rozerem) 8 MG TABLET 1 TAB PO AT BEDTIME SLEEP HELP Sennosides/Docusate Sodium (Senna S Tablet) 8.6 MG-50 MG TABLET 2 TAB PO QPM GI (Reported) Sertraline HCl (Zoloft) 100 MG TABLET 1 TAB PO DAILY ANXIETY (Reported) Sevelamer Carbonate (Renvela) 800 MG TABLET 2 TAB PO TID ESRD (Reported) Tamsulosin HCl 0.4 MG CAP.ER.24H 1 CAP PO DAILY PROSTATE (Reported) Trazodone HCl 150 MG TABLET 1 TAB PO QPM SLEEP (Reported) (RL ELDRIDGE,Geo KELLY) Past History Travel History Traveled to [place] past 21 day No Medical History Any Pertinent Medical History? 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 No (TESFAYE MONSON DO) Review of Systems Review of Systems Constitutional: Denies: fever. EENTM: Denies: visual changes. Respiratory: Denies: short of breath. Cardiovascular: Denies: chest pain. GI: Denies: abdominal pain. Genitourinary: Reports: no symptoms. Musculoskeletal: Reports: no symptoms. Skin: Reports: no symptoms. Neurological/Psychological: Reports: no symptoms. Hematologic/Endocrine: Reports: no symptoms. Immunologic/Allergic: Reports: no symptoms. (TESFAYE MONSON DO) Physical Exam Physical Exam General Appearance: well developed/nourished, alert, awake, anxious, mild distress Head: atraumatic, normal appearance Eyes: Bilateral: normal appearance, PERRL, EOMI. Ears, Nose, Throat: normal pharynx, normal ENT inspection, hearing grossly normal Neck: normal inspection, supple Respiratory: normal breath sounds, chest non-tender, no respiratory distress Cardiovascular: regular rate/rhythm Peripheral Pulses: 3+ radial (R), 3+ radial (L) Gastrointestinal: soft, non-tender Back: normal range of motion Extremities: pedal edema Neurologic/Psych: no motor/sensory deficits, awake, alert, oriented x 3 Skin: intact, normal color, warm/dry Core Measures ACS in differential dx? Yes ASA ordered for poss ACS? Yes-ordered CVA/TIA Diagnosis: No Severe Sepsis Present: No Septic Shock Present: No (TESFAEY MONSON DO) Progress Differential Diagnoses I considered the following diagnoses in my evaluation of the patient: [ Dehydration, electrolyte derangement, acute coronary syndrome, anemia] Initial ED EKG: NSR, nonspecific ST T wave chg Prior EKG: changed (TESFAYE MONSON DO) Plan of Care: Orders Procedure Date/time Status CBC WITHOUT DIFFERENTIAL 04/23 06 Active BASIC ELECTROLYTES PLUS BUN&CR 04/23 0600 Active Heart Healthy Diet 04/22 D Active TROPONIN LEVEL 04/22 2300 Active EKG 04/22 2300 Active Hemo-Dialysis 04/22 1839 Active TROPONIN LEVEL 04/22 1700 Complete EKG 04/22 1700 Active Hemo-Dialysis 04/22 1512 Active Teach/Educate 04/22 1454 Active Pain Treatment and Response 04/22 1454 Active Nutritional Intake, Monitor 04/22 1454 Active Isolation 04/22 1454 Active Patient Care Conference 04/22 1454 Active Activity/Ambulation 04/22 1454 Active Pathway - chart 04/22 1317 Active House Staff 04/22 1317 Active Patient Data 04/22 1317 Active Code Status 04/22 1317 Active ED- NURSING MISC 04/22 1304 Active Patient Data 04/22 1301 Active ED Holding Orders 04/22 1251 Active Admit to inpatient 04/22 1251 Active Vital Signs 04/22 1251 Active Code Status 04/22 1251 Complete Intake & Output 04/22 1053 Active Saline Lock 04/22 1024 Active TROPONIN LEVEL 04/22 1024 Complete D-DIMER 04/22 1024 Complete COMPREHENSIVE METABOLIC PANEL 04/22 1024 Complete CBC WITHOUT DIFFERENTIAL 04/22 1024 Complete B-TYPE NATRIURETIC PEP (BNP) 04/22 1024 Complete EKG 04/22 0946 Active VTE Mechanical Prophylaxis 04/22 UNK Active MISTAKE 04/22 UNK Active Telemetry/Occ Ther 04/22 UNK Active FingerStick- Glucose 04/22 UNK Active Enema 04/22 UNK Active Current Medications Sig/Julissa Start time Last Medication Dose Stop Time Status Admin Clopidogrel Bisulfate 75 MG DAILY 04/23 1000 AC (Plavix) Folic Acid 1 MG DAILY 04/23 1000 AC (Folic Acid) Isosorbide 60 MG DAILY 04/23 1000 AC Mononitrate (Imdur) Multivitamins 1 TAB DAILY 04/23 1000 AC (Nephrocaps) Sertraline HCl 100 MG DAILY 04/23 1000 AC (Zoloft) Tamsulosin HCl 0.4 MG DAILY 04/23 1000 AC (Flomax) Epoetin [place] 8,000 UNIT TuThSa 04/23 0800 AC (Epogen Inj 4000 (DIALYSIS PATIENT)) Levothyroxine Sodium 0.2 MG DAILY AC 04/23 0700 AC (Synthroid) Aspirin Buffered 81 MG QPM 04/22 2200 AC (Ecotrin) Atorvastatin Calcium 80 MG QPM 04/22 2200 AC (Lipitor) Docusate Sodium 100 MG BID 04/22 2200 AC (Colace) Ramelteon 8 MG AT BEDTIME 04/22 2200 AC (Rozerem) Trazodone HCl 150 MG AT BEDTIME 04/22 2200 AC (Desyrel) Bisacodyl 10 MG DAILY PRN 04/22 1800 AC 04/22 (Dulcolax Supp) 2124 Insulin Aspart 0 TIDAC 04/22 1700 AC (NovoLOG) Sevelamer Carbonate 1,600 MG WM 04/22 1700 CAN (Renvela) Sevelamer Carbonate 1,600 MG WM 04/22 1700 AC 04/22 (Renvela) 1736 Albuterol Sulfate 2 PUF Q4P PRN 04/22 1345 AC (Ventolin) Alprazolam 0.5 MG BID PRN 04/22 1345 AC (Xanax) 04/29 1344 Acetaminophen 325 MG Q6P PRN 04/22 1330 AC (Tylenol) Acetaminophen 1,000 MG Q6P PRN 04/22 1330 AC (Ofirmev) Hydromorphone HCl 1 MG Q6 PRN 04/22 1330 CAN (Dilaudid) Enoxaparin Sodium 30 MG DAILY 04/22 1316 AC 04/22 (Lovenox) 1431 Laboratory Tests 04/22/17 1710: Troponin I 0.48 *H 04/22/17 1050: Anion Gap 15, Estimated GFR 22 L, BUN/Creatinine Ratio 3.8 L, Glucose 142 H, Calcium 8.0 L, Total Bilirubin 1.4 H, AST 27, ALT 31, Alkaline Phosphatase 119 , Troponin I 0.67 *H, Slz-I-Kyutvvhfdmp Pept 84094 H, Total Protein 6.6, Albumin 3.8, Globulin 2.8, Albumin/Globulin Ratio 1.4, D-Dimer High Sensitivty 496 H, CBC w Diff NO MAN DIFF REQ, RBC 3.71 L, MCV 81.6, MCH 27.0, RDW 17.8 H , MPV 7.8, Gran % 49.9, Lymphocytes % 39.3, Monocytes % 9.2, Eosinophils % 0.8, Basophils % 0.8, Absolute Granulocytes 1.8, Absolute Lymphocytes 1.4, Absolute Monocytes 0.3, Absolute Eosinophils 0, Absolute Basophils 0, PUBS MCHC 33.1 Departure Departure Disposition: STILL A PATIENT Condition: Stable Clinical Impression Primary Impression: NSTEMI (non-ST elevated myocardial infarction) Secondary Impressions: EKG abnormality, Troponin level elevated Referrals: CARLITA PAGE DO (PCP/Family) Departure Forms: Customer Survey General Discharge Information Comments The patient was seen by Dr. Lee in the ED who agreed with the plan of care. Admission Note Spoke With: BENNIE FUCHS MD Documentation of Exam: Documentation of any treatments & extenuating circumstances including Concerns Regarding Discharge (functional status, medication knowledge or non-compliance, living conditions, etc.) that warrant an admission rather than observation: [The patient needs serial troponins, cardiology consultation, monitoring of blood pressure, inpatient dialysis, likely inpatient echocardiogram] Chest x-ray results below IMPRESSION: Previously seen pulmonary edema has resolved. There is trace atelectasis at the right lung base and the lungs are otherwise clear. DICTATED BY: TESFAYE WANG MD DATE/TIME DICTATED:04/22/171111 RADIATION CONTROL TECHNICIAN:SAVANA DATE/TIME TRANSCRIBED:04/22/171111 CONFIDENTIAL, DO NOT COPY WITHOUT APPROPRIATE AUTHORIZATION. <Electronically signed in Other Vendor System> SIGNED BY: TESFAYE WANG MD 04/22/17 1118 (TESFAYE MONSON DO) Critical Care Note Critical Care Note Critical Care Time: 30-74 min (TESFAYE MONSON DO)
--- NOTE | 2017-04-22 09:46 | NUR ---
PT ALEX FROM DR MATA'S OFFICE FOR HYPOTENSION AND "LIGHTHEADEDNESS" PER PT HE HAS BEEN STRUGGLING WITH HYPOTENSION LATELY, STATING "MY PRESSURE HAS BEEN ALL OVER THE PLACE USUALLY LOW 90'S AND THE HIGHEST IS 120'S" PT ALERT AND ORIENTED ON ARRIVAL TO ED, APPEARS SLIGHTLY PALE, REPORTING LAST DIALYSIS TX YESTERDAY. PT REPORTING HE FELL "A FEW DAYS AGO I THINK I TOOK TOO MUCH INSULIN" APPEARS TO HAVE A BRUSE AND ABRASION TO R CHEEK AND ABOVE R EYE. FISTULA IN KAREY AND ROBINA CATH IN R UPPER CHEST. BP STABLE ON ARRIVAL REPORTING "FEELING OK RIGHT NOW" DENIES CP, SOB, MORALES, NVD.
--- NOTE | 2017-04-22 09:48 | NUR ---
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
--- NOTE | 2017-04-22 10:09 | NUR ---
DR MONSON AT BEDSIDE
--- NOTE | 2017-04-22 10:50 | NUR ---
LABS SENT. PORT CXR AT BEDSIDE.
[2017-04-22 11:05] LABS: ABSOLUTE BASOPHIL COUNT 0 /CUMM (0.0-0.2); ABSOLUTE EOSINOPHIL COUNT 0 /CUMM (0.0-0.7); ABSOLUTE GRANULOCYTE CT 1.8 /CUMM (1.4-6.5); ABSOLUTE LYMPH COUNT 1.4 /CUMM (1.2-3.4); ABSOLUTE MONOCYTE COUNT 0.3 /CUMM (0.10-0.60); BASOPHIL % 0.8 % (0.0-2.0); EOSINOPHIL % 0.8 % (0-5); GRANULOCYTE % 49.9 % (42.2-75.2); HEMATOCRIT 30.3 % (42-52); MEAN CORPUSCULAR HGB CONC 33.1 G/DL (33.0-37.0); MEAN CORPUSCULAR VOLUME 81.6 FL (80.0-94.0); MEAN PLATELET VOLUME 7.8 FL (7.4-10.4); PLATELET COUNT 192 /CUMM (130-400); RBC DISTRIBUTION WIDTH 17.8 % (11.5-14.5); RED BLOOD CELL CT 3.71 /CUMM (4.70-6.10); WHITE BLOOD CELL COUNT 3.6 /CUMM (4.8-10.8)
--- NOTE | 2017-04-22 11:18 | RADIOLOGY REPORT ---
EXAMINATION: XR PORTABLE CHEST CLINICAL INFORMATION: Hypotension. COMPARISON: Chest x-ray 04/12/2017. FINDINGS: Right IJ dialysis catheter tip is again noted to project over the right atrium. Asymmetric elevation of the right hemidiaphragm. Previously seen pulmonary edema has resolved. There is mild streaky atelectasis at the right lung base. No focal consolidation, pleural effusion, or pneumothorax. Cardiac silhouette size is normal. ACDF hardware within the lower cervical spine. No acute osseous findings. IMPRESSION: Previously seen pulmonary edema has resolved. There is trace atelectasis at the right lung base and the lungs are otherwise clear.
--- NOTE | 2017-04-22 11:21 | NUR ---
PT TO AND FROM CAT SCAN
[2017-04-22] MEDS ORDERED: LANTUS SOL100 UNIT/1 SC (11:37)
--- NOTE | 2017-04-22 11:38 | NUR ---
CRITICAL TEST RESULTS [id number] DEEPIKA BRANDT 67 M TESTS AND RESULTS: TROPONIN 0.67 Results received and read back by: JACQUELIN CORDOBA Results received date and time: 04/22/17 1138 The following provider was notified of the results, and read the results back: DR MONSON Notified date and time: 04/22/17 at 1138
--- NOTE | 2017-04-22 11:53 | CT SCAN REPORT ---
CT ABDOMEN AND PELVIS WITHOUT CONTRAST CLINICAL INFORMATION: Abdominal pain. Constipation. COMPARISON: Abdominal CT 03/27/2017. TECHNIQUE: Multidetector volumetric imaging was performed from the superior aspect of the liver through the pubic symphysis. Sagittal and coronal reformatted images were obtained on the technologist's workstation. FINDINGS: There are small left and trace right pleural effusions. Stable appearing 5 mm triangular shaped nodule within the right lower lobe adjacent to the fissure. Partially imaged pacemaker leads. Limited evaluation of the unenhanced liver, spleen, adrenal glands, gallbladder, and pancreas reveals no definite abnormality. The kidneys are symmetric in size without evidence of hydronephrosis or nephrolithiasis. There are bilateral renal cysts. There is aortoiliac atherosclerotic calcification. Bilateral renal hilar atherosclerotic calcification in abdominal aortic branch vessel atherosclerotic calcification. Similar moderate volume intracolonic stool. The large and small bowel are normal in caliber without evidence of mechanical obstruction. No focal inflammatory changes adjacent to the large or the small bowel. The appendix is normal. There is no free air and there is no intra-abdominal free fluid. No mesenteric or retroperitoneal adenopathy. The pelvic viscera are normal. No pelvic adenopathy. No free fluid within the pelvis. There are no acute osseous abnormalities. Lower thoracic spondylosis. Stable appearing lipoma within the left lower lateral abdominal wall. Small fat-containing umbilical hernia. Injection granuloma in the lower abdominal wall. IMPRESSION: - No acute findings. Stable appearing moderate volume intracolonic stool without bowel obstruction. - Small left and trace right pleural effusions. Stable appearing 5 mm right lower lobe pulmonary nodule. - Bilateral renal cysts.
--- NOTE | 2017-04-22 12:21 | Cons- Cardiology ---
General Information and HPI Consulting Request Date of Consult: 04/22/17 Requested By: Dr. Pina Reason for Consult: Hypotension with elevated troponin Source of Information: patient, old records Exam Limitations: no limitations History of Present Illness: The patient is a 67 year old male with an extensive history who is well known to me. He was recently discharged from [facility] and is now readmitted from Dr. Agrawal's office with weakness and hypotension as well as an elevated troponin in the ER. The patient notes that he felt very lightheaded in the office. In addition, he had episodes of lightheadedness and weakness over the last several days. He denies any true LOC but did fall at least once, striking the right side of his head. The rigors noted during the recent hospitalization seem to have resolved. He has not had any significant chest discomfort He has been extremely constipated. Allergies/Medications Allergies: Coded Allergies: Iodinated Contrast- Oral and IV Dye (PER PT STATES HIS KIDNEYS ARE SHOT HE IS ON DIALYSIS 03/27/17) morphine (Mild, LOOPY 01/18/17) hydromorphone (DEPRESSED RESPIRATIONS 01/18/17) Home Med List: Albuterol Sulfate (Proair Hfa) 90 MCG HFA.AER.AD 2 PUF INH Q4H PRN SOB ( Reported) Alprazolam (Xanax) 0.5 MG TABLET 1 TAB PO BID PRN ANXIETY Aspirin (Ecotrin*) 81 MG TABLET.DR 1 TAB PO QPM CAD (Reported) Atorvastatin Calcium (Lipitor) 80 MG TABLET 1 TAB PO QPM CHOLESTEROL ( Reported) Budesonide/Formoterol Fumarate (Symbicort 160-4.5 Mcg Inhaler) 160 MCG-4.5 MCG/ ACTUATION HFA.AER.AD 2 PUF INH BID COPD Rinse your mouth after using inhaler. Clonidine HCl 0.1 MG TABLET 1 TAB PO BID BP (Reported) Clopidogrel Bisulfate (Plavix) 75 MG TABLET 75 MG PO DAILY ANTIPLATELET Folic Acid 1 MG TABLET 1 TAB PO DAILY SUPPLEMENT (Reported) Furosemide (Lasix) 40 MG TABLET 80 MG PO DAILY diuresis Insulin Glargine,Hum.rec.anlog (Lantus Solostar) 100 UNIT/ML (3 ML) INSULN.PEN 5 UNIT SC BID DIABETES (Reported) Isosorbide Mononitrate (Isosorbide Mononitrate ER) 60 MG TAB.ER.24H 1 TAB PO DAILY CAD Levothyroxine Sodium (Synthroid) 200 MCG TABLET 0.2 MG PO DAILY AC THYROID Liraglutide (Victoza 3-Zeus) 0.6 MG/0.1 ML (18 MG/3 ML) PEN.INJCTR 1.8 MG SC QPM DIABETES (Reported) Metoprolol Tartrate 100 MG TABLET 1 TAB PO DAILY HEART (Reported) Nut.tx.impaired Renal Fxn,Soy (Nepro Carb Steady) (Unknown Strength) LIQUID 120 ML PO BID UNKNOWN (Reported) Ramelteon (Rozerem) 8 MG TABLET 1 TAB PO AT BEDTIME SLEEP HELP Sennosides/Docusate Sodium (Senna S Tablet) 8.6 MG-50 MG TABLET 2 TAB PO QPM GI (Reported) Sertraline HCl (Zoloft) 100 MG TABLET 1 TAB PO DAILY ANXIETY (Reported) Sevelamer Carbonate (Renvela) 800 MG TABLET 2 TAB PO TID ESRD (Reported) Tamsulosin HCl 0.4 MG CAP.ER.24H 1 CAP PO DAILY PROSTATE (Reported) Trazodone HCl 150 MG TABLET 1 TAB PO QPM SLEEP (Reported) Current Medications: Current Medications Sig/Julissa Start time Last Medication Dose Route Stop Time Status Admin Aspirin 0 .STK-MED ONE 04/22 1205 DC PO Aspirin 162 MG ONCE ONE 04/22 1145 DC PO 04/22 1146 Past History Travel History Traveled to [place] past 21 day No Medical History Neurological: NONE EENT: NONE Cardiovascular: CAD, hypertension, hyperlipidemia, PVD, 6 CARDIAC STENTS Respiratory: COPD Gastrointestinal: NONE Hepatic: NONE Renal: chronic kidney disease, L ARM AVF PLACED 01/17/17 Musculoskeletal: chronic back pain, ?BACK PROBLEM REQUIRE SX Psychiatric: NONE Endocrine: diabetes Blood Disorders: NONE 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 Ambulation: cane IADLs Independent: shopping, housework, finances, food prep, telephone, transportation , medication admin. Exam & Diagnostic Data Vital Signs and I&O Vital Signs Date Time Temp Pulse Resp B/P B/P Pulse O2 O2 Flow FiO2 Mean Ox Delivery Rate 04/22 1131 96.0 70 20 145/67 100 Room Air 04/22 1054 100 Room Air 04/22 0947 97.0 61 18 114/60 100 Room Air Intake & Output 04/22 1600 04/22 0800 04/22 0000 04/21 0804/21 0000 Intake Total Output Total Balance Patient 200 lb Weight Weight Reported by Patient Measurement Method Physical Exam: General Appearance Alert, Oriented X3, Cooperative, No Acute Distress Skin No Rashes, No Breakdown, No Significant Lesion, few bruises on his face HEENT Atraumatic, PERRLA, EOMI, Mucous Membr. moist/pink, few bruises on his face Neck Supple, No JVD Cardiovascular Regular Rate, Normal S1, Normal S2, 1/6 systolic murmur Lungs Clear to Auscultation, Normal Air Movement Abdomen Normal Bowel Sounds, Soft, No Tenderness Neurological Normal Speech, Strength at 5/5 X4 Ext, Normal Tone Extremities No Cyanosis, No Edema Labs/Angus Results: Laboratory Tests 04/22 1050 Chemistry Sodium (137 - 145 mmol/L) 138 Potassium (3.5 - 5.1 mmol/L) 3.6 Chloride (98 - 107 mmol/L) 100 Carbon Dioxide (22 - 30 mmol/L) 23 Anion Gap (5 - 16) 15 BUN (9 - 20 mg/dL) 11 Creatinine (0.7 - 1.2 mg/dL) 2.9 H Estimated GFR (>60 ml/min) 22 L BUN/Creatinine Ratio (7 - 25 %) 3.8 L Glucose (65 - 99 mg/dL) 142 H Calcium (8.4 - 10.2 mg/dL) 8.0 L Total Bilirubin (0.2 - 1.3 mg/dL) 1.4 H AST (17 - 59 U/L) 27 ALT (21 - 72 U/L) 31 Alkaline Phosphatase (< 127 U/L) 119 Troponin I (<0.11 ng/ml) 0.67 *H Dcw-H-Yxcrywswwgm Pept (<125 pg/mL) 00279 H Total Protein (6.3 - 8.2 g/dL) 6.6 Albumin (3.5 - 5.0 g/dL) 3.8 Globulin (1.9 - 4.2 gm/dL) 2.8 Albumin/Globulin Ratio (1.1 - 2.2 %) 1.4 Coagulation D-Dimer High Sensitivty (0 - 243 ng/ml) 496 H Hematology CBC w Diff NO MAN DIFF REQ WBC (4.8 - 10.8 /CUMM) 3.6 L RBC (4.70 - 6.10 /CUMM) 3.71 L Hgb (14.0 - 18.0 G/DL) 10.0 L Hct (42 - 52 %) 30.3 L MCV (80.0 - 94.0 FL) 81.6 MCH (27.0 - 31.0 PG) 27.0 RDW (11.5 - 14.5 %) 17.8 H Plt Count (130 - 400 /CUMM) 192 MPV (7.4 - 10.4 FL) 7.8 Gran % (42.2 - 75.2 %) 49.9 Lymphocytes % (20.5 - 51.1 %) 39.3 Monocytes % (1.7 - 9.3 %) 9.2 Eosinophils % (0 - 5 %) 0.8 Basophils % (0.0 - 2.0 %) 0.8 Absolute Granulocytes (1.4 - 6.5 /CUMM) 1.8 Absolute Lymphocytes (1.2 - 3.4 /CUMM) 1.4 Absolute Monocytes (0.10 - 0.60 /CUMM) 0.3 Absolute Eosinophils (0.0 - 0.7 /CUMM) 0 Absolute Basophils (0.0 - 0.2 /CUMM) 0 PUBS MCHC (33.0 - 37.0 G/DL) 33.1 Diagnostic Data EKG Results NSR; NSSTTWCs CXR Results FINDINGS: Right IJ dialysis catheter tip is again noted to project over the right atrium. Asymmetric elevation of the right hemidiaphragm. Previously seen pulmonary edema has resolved. There is mild streaky atelectasis at the right lung base. No focal consolidation, pleural effusion, or pneumothorax. Cardiac silhouette size is normal. ACDF hardware within the lower cervical spine. No acute osseous findings. IMPRESSION: Previously seen pulmonary edema has resolved. There is trace atelectasis at the right lung base and the lungs are otherwise clear. Other Results Abdominal/pelvic CT scan: IMPRESSION: - No acute findings. Stable appearing moderate volume intracolonic stool without bowel obstruction. - Small left and trace right pleural effusions. Stable appearing 5 mm right lower lobe pulmonary nodule. - Bilateral renal cysts. Assessment/Plan Assessment/Plan Assessment: 1. Hypotension with lightheadedness; possibly orthostatic hypotension 2. Elevated troponin 3. History of CAD; status post Ramus and M1 stents in 10/26 4. ESRD on HD 5. 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 History of HTN 7. History of IDDM 8. Recent Coag negative staph bacteremia 9. Normocytic anemia 10. Hypocalcemia Recommendations: - Admit the patient to telemetry - Trend troponins until decreasing - No need to repeat echocardiogram for the present. - Check orthostatic heart rate and BP q shift. - Serial ECGs to rule out interval changes - Nephrology input pending - At the time of the patient's recent cardiac cath, there was no other CAD amenable to intervention. Of concern, the patients antiplatelet regimen was transiently interrupted recently for the placement of 2 tunneled dialysis catheters. - Further plans depending on the troponin curve and the patient's clinical course. Consult Acknowledgment - Thank you for your consult request.
--- NOTE | 2017-04-22 12:28 | NUR ---
DR SHINE AT BEDSIDE.
--- NOTE | 2017-04-22 13:34 | History & Physical ---
MAGDY ELDRIDGE,UTE 04/22/17 1334: General Information and HPI MD Statement: I have seen and personally examined DEEPIKA BRANDT and documented this H&P. The patient is a 67 year old M who presented with a patient stated chief complaint of hypotension and weakness. Source of Information: patient, old records Exam Limitations: no limitations History of Present Illness: 67 years old gentleman from [facility]. with PMH of CAD S/P stents, COPD on intermittent oxygen diabetes mellitus type 2, diabetic neuropathy, ESRD S/P fistula after which Bao cath was placed, on hemodialysis TTS, was admitted to the ED today for hypotension, the patient was at Dr. Humphrey' office today and his systolic blood pressure was 70, EMS was called and the patient was transferred to the hospital. patient reports feeling lightheaded , he was recently discharged last week from [facility] after he recieved a course of antibiotics for treatment of coagulase negative septicemia.Patient's also reports constipation for 5 days He denies any fever or chills or shortness of breath Allergies/Medications Allergies: Coded Allergies: Iodinated Contrast- Oral and IV Dye (PER PT STATES HIS KIDNEYS ARE SHOT HE IS ON DIALYSIS 03/27/17) morphine (Mild, LOOPY 01/18/17) hydromorphone (DEPRESSED RESPIRATIONS 01/18/17) Home Med list Albuterol Sulfate (Proair Hfa) 90 MCG HFA.AER.AD 2 PUF INH Q4H PRN SOB ( Reported) Alprazolam (Xanax) 0.5 MG TABLET 1 TAB PO BID PRN ANXIETY Aspirin (Ecotrin*) 81 MG TABLET.DR 1 TAB PO QPM CAD (Reported) Atorvastatin Calcium (Lipitor) 80 MG TABLET 1 TAB PO QPM CHOLESTEROL ( Reported) Budesonide/Formoterol Fumarate (Symbicort 160-4.5 Mcg Inhaler) 160 MCG-4.5 MCG/ ACTUATION HFA.AER.AD 2 PUF INH BID COPD Rinse your mouth after using inhaler. Clonidine HCl 0.1 MG TABLET 1 TAB PO BID BP (Reported) Clopidogrel Bisulfate (Plavix) 75 MG TABLET 75 MG PO DAILY ANTIPLATELET Folic Acid 1 MG TABLET 1 TAB PO DAILY SUPPLEMENT (Reported) Furosemide (Lasix) 40 MG TABLET 80 MG PO DAILY diuresis Insulin Glargine,Hum.rec.anlog (Lantus Solostar) 100 UNIT/ML (3 ML) INSULN.PEN 5 UNIT SC BID DIABETES (Reported) Isosorbide Mononitrate (Isosorbide Mononitrate ER) 60 MG TAB.ER.24H 1 TAB PO DAILY CAD Levothyroxine Sodium (Synthroid) 200 MCG TABLET 0.2 MG PO DAILY AC THYROID Liraglutide (Victoza 3-Zeus) 0.6 MG/0.1 ML (18 MG/3 ML) PEN.INJCTR 1.8 MG SC QPM DIABETES (Reported) Metoprolol Tartrate 100 MG TABLET 1 TAB PO DAILY HEART (Reported) Nut.tx.impaired Renal Fxn,Soy (Nepro Carb Steady) (Unknown Strength) LIQUID 120 ML PO BID UNKNOWN (Reported) Ramelteon (Rozerem) 8 MG TABLET 1 TAB PO AT BEDTIME SLEEP HELP Sennosides/Docusate Sodium (Senna S Tablet) 8.6 MG-50 MG TABLET 2 TAB PO QPM GI (Reported) Sertraline HCl (Zoloft) 100 MG TABLET 1 TAB PO DAILY ANXIETY (Reported) Sevelamer Carbonate (Renvela) 800 MG TABLET 2 TAB PO TID ESRD (Reported) Tamsulosin HCl 0.4 MG CAP.ER.24H 1 CAP PO DAILY PROSTATE (Reported) Trazodone HCl 150 MG TABLET 1 TAB PO QPM SLEEP (Reported) Past History Travel History Traveled to [place] past 21 day No Medical History Blood Transfusion Hx: No Neurological: NONE EENT: NONE Cardiovascular: CAD, hypertension, hyperlipidemia, PVD, 6 CARDIAC STENTS Respiratory: COPD Gastrointestinal: NONE Hepatic: NONE Renal: chronic kidney disease, L ARM AVF PLACED 01/17/17 Musculoskeletal: chronic back pain, ?BACK PROBLEM REQUIRE SX Psychiatric: NONE Endocrine: diabetes Blood Disorders: NONE Cancer(s): THYROID CA 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 Ambulation: cane IADLs Independent: shopping, housework, finances, food prep, telephone, transportation , medication admin. Review of Systems Review of Systems Constitutional: Denies: see HPI (lightheaded). Cardiovascular: Denies: chest pain, orthopena. Respiratory: Denies: cough, hemoptysis, short of breath. Exam & Diagnostic Data Last 24 Hrs of Vital Signs/I&O Vital Signs Date Time Temp Pulse Resp B/P B/P Pulse O2 O2 Flow FiO2 Mean Ox Delivery Rate 04/22 1337 96.0 68 20 127/63 100 Room Air 04/22 1131 96.0 70 20 145/67 100 Room Air 04/22 1054 100 Room Air 04/22 0947 97.0 61 18 114/60 100 Room Air Intake & Output 04/22 1600 04/22 0800 04/22 0000 Intake Total Output Total Balance Patient 200 lb Weight Weight Reported by Patient Measurement Method Physical Exam General Appearance Alert, Oriented X3, Cooperative, No Acute Distress Skin No Rashes, No Breakdown, No Significant Lesion, few bruises on his face HEENT Atraumatic, PERRLA, EOMI, Mucous Membr. moist/pink, few bruises on his face Neck Supple, No JVD Cardiovascular Regular Rate, Normal S1, Normal S2, No Murmurs Lungs Clear to Auscultation, Normal Air Movement Abdomen Normal Bowel Sounds, Soft, No Tenderness Neurological Normal Speech, Strength at 5/5 X4 Ext, Normal Tone Extremities No Cyanosis, No Edema Diagnostic Data CXR Results FINDINGS: Right IJ dialysis catheter tip is again noted to project over the right atrium. Asymmetric elevation of the right hemidiaphragm. Previously seen pulmonary edema has resolved. There is mild streaky atelectasis at the right lung base. No focal consolidation, pleural effusion, or pneumothorax. Cardiac silhouette size is normal. ACDF hardware within the lower cervical spine. No acute osseous findings. IMPRESSION: Previously seen pulmonary edema has resolved. There is trace atelectasis at the right lung base and the lungs are otherwise clear. Other Results Abdominal/pelvic CT scan: IMPRESSION: - No acute findings. Stable appearing moderate volume intracolonic stool without bowel obstruction. - Small left and trace right pleural effusions. Stable appearing 5 mm right lower lobe pulmonary nodule. - Bilateral renal cysts. Assessment/Plan Assessment: 67 years old gentleman from [facility]. with PMH of CAD S/P stents, COPD on intermittent oxygen diabetes mellitus type 2, diabetic neuropathy, ESRD S/P fistula after which Bao cath was placed, on hemodialysis TTS (, , Tuesday), he was discharged on 04/15/17 from [facility] after a lenghty stay for treatment of coagulase negative septicemia likely secondary to line sepsis. He was treated with vancomycin for 13 days and then infected Bao cath was removed. He was admitted to the ED today for hypotension, the patient was at Dr. Humphrey' office today and his systolic blood pressure was 70, EMS was called and the patient was transferred to the hospital. patient reports feeling lightheaded and dizzy but did not lose consciousness, Patient's also reports constipation for 5 days. He denies any fever or chills or shortness of breath pertinent vitals in the ED: BP: 127/63, temp 96, RR: 20, Pusle 68 Pertinent labs in the ED: WBCs: 3.6, Hgb: 10, D-dimer 496, creatinine 2.9.9, troponin 0.067, proBNP 27,600 CXR: No pulmonary edema, trace atelectasis at the right lung base CT abdomen and pelvis: small left right pleural effusion, right lower lobe nodule, bilateral renal cysts #Hypotension: currently stable with bp OF 127/63 Monitor on telemetry Check orthostatics and vitals daily weights Hold blood pressure medications( lasix, clonidine and metoprolol) # ESRD on hemodialysis: dialysis 3 times/week 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 # CAD S/P stent Continue home meds :aspirin and statin and Plavix and Imdur Hold beta blockers until blood pressure improves # DVT prophylaxis: SC. Levonox #Pt is full code #Heart healthy diet As Ranked By This Provider Problem List: 1. Diabetes mellitus 2. COPD (chronic obstructive pulmonary disease) 3. ESRD (end stage renal disease) on dialysis 4. Hypotension 5. Elevated troponin 6. CAD (coronary artery disease) Core Measures/Miscellaneous Acute Coronary Syndrome ACS Diagnosis: No Cerebrovascular Accident CVA/TIA Diagnosis: No Congestive Heart Failure CHF Diagnosis: No VTE (View Protocol) VTE Risk Factors: Age > 40 No [facility] VTE prophylaxis d/t: No contraindications No VTE Pharm Prophylaxis d/t: No contraindications VTE Diagnosis: No VTE Type: NONE VTE Confirmed by (Test): NONE Sepsis (View Protocol) Severe Sepsis Present: No Septic Shock Septic Shock Present: No Miscellaneous Documentation Attending Case Discussed With: ANMOL MOLINA MD Primary Care Physician: CARLITA PAGE DO Patient sees these Specialists endocrinology nephrology cardiology Level of Patient Care: Telemetry GERBER BETHEA 04/22/17 1430: Resident Review Statement Resident Statement: examined this patient, discussed with internal combustion engineer Other Findings: Mr. 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 Agrawal's office for dizziness and hypotension. Patient was recently discharged on 04/15/2017 after a prolonged hospitalization for rigirs from presumed coag-negative staph line sepsis. He was treated with vancomycin for 13 days and infected Bao catheter was removed. He had a new catheter placed. He was watched off antibiotics thereafter with negative blood cultures for 2 weeks and normal white count and temperature. Endocarditis was ruled out with a negative LILIANE. Patient reports that after going home he felt weak and dizzy he continued to have dialysis on Tuesday/ and Tuesday. Also reports an episode of hypoglycemia when he felt sick ,fell down on the ground hitting his head and face. He had no loss of consciousness, however felt sweaty and lightheaded. He was seen by Dr. Conley's office today and the blood pressure was noted to be 70 over Doppler. EMS was called and patient brought to the hospital immediately. His insulin dose was also reduced by Manuel Agrawal MD owing to the recent hypoglycemic episode. Patient has no complaints at this time except lightheadedness. Denies any fevers, chills, chest pain, shortness of breath, nausea, vomiting, abdominal pain, urinary or bowel symptoms. Was evaluated by Dr. Lee in the ED. Patient received 162 mg aspirin . On arrival to the ED his temperature was 97, pulse 61, respiration 18, blood pressure 114/60, pulse ox 100% on room air. Pertinent labs showed an H&H of 10/30(baseline), BUN 11, creatinine 2.9, troponin 0.67, proBNP 27,600, d-dimer 496. EKG normal sinus rhythm, no significant ST-T wave changes Chest x-ray showed resolution of pulmonary edema. Trace atelectasis at the right lung base. CT abdomen and pelvis had no acute findings. Small left and trace right pleural effusion. Stable 5 mm right lower lobe nodule. Bilateral renal cysts. Physical exam Gen: Awake alert and oriented with no distress HEENT: Bruising no bruit noted over the right eyebrow and right cheek secondary to fall. PERRLA, EOMI. Right neck IJ catheter with no inflammation Lungs: Decreased bilateral breath sounds CVS: S1 and S2 heard, no murmurs Or Gallops Extremities: Left upper extremity fistulA, bruit, trace, no pedal edema Plan #1 Hypotension and dizziness: Likely orthostatic hypotension/ overmedication Admit patient to telemetry Check orthostatics We will hold home medications metoprolol, and clonidine Close monitoring of the blood pressure #2 elevated troponin: Patient is asymptomatic with no new EKG changes and negative cardiac biomarkers Likely demand ischemia and chronic kidney disease 3 sets of troponin and EKG to rule out ACS #3 HFwrEF: EF of 45-50% with akinetic apex. Elevated proBNP at 27,600 Monitor ins and outs Daily weight checks Continue Lasix at home dose of 40 bid with close monitoring of the blood pressure. Cardiology on board #4 End-stage renal disease on hemodialysis Patient is scheduled for dialysis on Tuesday//Tuesday Continue sevelamer To twice weekly with hemodialysis Nephrology on board #5 Hypertension Holding on metoprolol and clonidine at this time due to low blood pressure Can resume metoprolol in a.m. if blood pressure stable Follow cardiology recommendations #6 insulin-dependent diabetes melitis with recent episode of hypoglycemia Daily Accu-Cheks NovoLog sliding scale low-dose Endocrinology consult(Dr. Agrawal was planning to take him off insulin due to low requirements) #7 Recent staph coagulase-negative bacteremia with replacement of Bao cath Posttreatment with 13 days of vancomycin, catheter site looks clean and intact Negative TTE/LILIANE for vegetation No symptoms at this time #8 history of coronary artery disease status post stents Continue aspirin, statin, Plavix, Imdur Continue beta surya once blood pressure more stable #9 DVT prophylaxis Subcutaneous Lovenox Full code Diabetic diet ANMOL MOLINA 04/22/17 1459: Attending MD Review Statement Attending Statement Attending MD Statement: examined this patient, discuss w/resident/PA/MAGAZINE KEEPER, agreed w/resident/PA/MAGAZINE KEEPER, discussed with family, reviewed EMR data (avail), discussed with nursing, discussed with case mgmt, reviewed images, amended to note Attending Assessment/Plan: 67 o/m with recent extensive w/u for bacteremia comes with hypotension and weakness, cardiology and nephrology consulted, Patient has elevated troponin in ER, admit to telemetry monitoring r/o ACS. Nephrology recommends to hold clonidine for now and thinks more of medication related. obtain serial cardiac enzymes and ekg, follow cardiology about a/c. Patient antihypertensives on hold. gi/dvt prophylaxis.
--- NOTE | 2017-04-22 13:37 | NUR ---
HOUSESTAFF IN FOR EVAL
--- NOTE | 2017-04-22 13:53 | NUR ---
PT TO ROOM 177 BED 1
--- NOTE | 2017-04-22 14:12 | NUR ---
RENAL AT BEDSIDE.
--- NOTE | 2017-04-22 14:28 | NUR ---
REPORT TO CHUCKIE MATTHEWS ON [address]
--- NOTE | 2017-04-22 14:40 | Cons- Nephrology ---
General Information and HPI Consulting Request Date of Consult: 04/22/17 Requested By: JESSE ELDRIDGE,ANMOL Reason for Consult: ESRD Source of Information: patient, old records Exam Limitations: no limitations History of Present Illness: 67 yr old WM w mult med problems imcliding DM, HTN, CAD s/p mult PCIs, recent coag neg Staph line sepsis, & ESRD on chronic HD admit this morning after developing dizziness & hypotension to 70s systolic during routine outpt Endo f/ u. Had taken usual doses clonidine, metoprolol, lasix, & isosorbide. Denies CP or SOB but troponin elevated. Completed course IV Vanco last week & no recent fever or rigors. Last HD yesterday & w/o uremic sx. Allergies/Medications Allergies: Coded Allergies: Iodinated Contrast- Oral and IV Dye (PER PT STATES HIS KIDNEYS ARE SHOT HE IS ON DIALYSIS 03/27/17) morphine (Mild, LOOPY 01/18/17) hydromorphone (DEPRESSED RESPIRATIONS 01/18/17) Home Med List: Albuterol Sulfate (Proair Hfa) 90 MCG HFA.AER.AD 2 PUF INH Q4H PRN SOB ( Reported) Alprazolam (Xanax) 0.5 MG TABLET 1 TAB PO BID PRN ANXIETY Aspirin (Ecotrin*) 81 MG TABLET.DR 1 TAB PO QPM CAD (Reported) Atorvastatin Calcium (Lipitor) 80 MG TABLET 1 TAB PO QPM CHOLESTEROL ( Reported) Budesonide/Formoterol Fumarate (Symbicort 160-4.5 Mcg Inhaler) 160 MCG-4.5 MCG/ ACTUATION HFA.AER.AD 2 PUF INH BID COPD Rinse your mouth after using inhaler. Clonidine HCl 0.1 MG TABLET 1 TAB PO BID BP (Reported) Clopidogrel Bisulfate (Plavix) 75 MG TABLET 75 MG PO DAILY ANTIPLATELET Folic Acid 1 MG TABLET 1 TAB PO DAILY SUPPLEMENT (Reported) Furosemide (Lasix) 40 MG TABLET 80 MG PO DAILY diuresis Insulin Glargine,Hum.rec.anlog (Lantus Solostar) 100 UNIT/ML (3 ML) INSULN.PEN 5 UNIT SC BID DIABETES (Reported) Isosorbide Mononitrate (Isosorbide Mononitrate ER) 60 MG TAB.ER.24H 1 TAB PO DAILY CAD Levothyroxine Sodium (Synthroid) 200 MCG TABLET 0.2 MG PO DAILY AC THYROID Liraglutide (Victoza 3-Zeus) 0.6 MG/0.1 ML (18 MG/3 ML) PEN.INJCTR 1.8 MG SC QPM DIABETES (Reported) Metoprolol Tartrate 100 MG TABLET 1 TAB PO DAILY HEART (Reported) Nut.tx.impaired Renal Fxn,Soy (Nepro Carb Steady) (Unknown Strength) LIQUID 120 ML PO BID UNKNOWN (Reported) Ramelteon (Rozerem) 8 MG TABLET 1 TAB PO AT BEDTIME SLEEP HELP Sennosides/Docusate Sodium (Senna S Tablet) 8.6 MG-50 MG TABLET 2 TAB PO QPM GI (Reported) Sertraline HCl (Zoloft) 100 MG TABLET 1 TAB PO DAILY ANXIETY (Reported) Sevelamer Carbonate (Renvela) 800 MG TABLET 2 TAB PO TID ESRD (Reported) Tamsulosin HCl 0.4 MG CAP.ER.24H 1 CAP PO DAILY PROSTATE (Reported) Trazodone HCl 150 MG TABLET 1 TAB PO QPM SLEEP (Reported) Current Medications: Current Medications Sig/Julissa Start time Last Medication Dose Route Stop Time Status Admin Acetaminophen 325 MG Q6P PRN 04/22 1330 AC PO Acetaminophen 1,000 MG Q6P PRN 04/22 1330 AC IV Albuterol Sulfate 2 PUF Q4P PRN 04/22 1345 AC INH Alprazolam 0.5 MG BID PRN 04/22 1345 AC PO 04/29 1344 Aspirin 0 .STK-MED ONE 04/22 1205 DC PO Aspirin 162 MG ONCE ONE 04/22 1145 DC 04/22 PO 04/22 1146 1145 Aspirin Buffered 81 MG QPM 04/22 2200 AC PO Atorvastatin Calcium 80 MG QPM 04/22 2200 AC PO Clopidogrel Bisulfate 75 MG DAILY 04/23 1000 AC PO Enoxaparin Sodium 30 MG DAILY 04/22 1316 AC SC Folic Acid 1 MG DAILY 04/23 1000 AC PO Hydromorphone HCl 1 MG Q6 PRN 04/22 1330 CAN IV Isosorbide 60 MG DAILY 04/23 1000 AC Mononitrate PO Levothyroxine Sodium 0.2 MG DAILY AC 04/23 0700 AC PO Ramelteon 8 MG AT BEDTIME 04/22 2200 AC PO Sertraline HCl 100 MG DAILY 04/23 1000 AC PO Sevelamer Carbonate 1,600 MG WM 04/22 1700 AC PO Tamsulosin HCl 0.4 MG DAILY 04/23 1000 AC PO Trazodone HCl 150 MG AT BEDTIME 04/22 2200 AC PO Review of Systems Review of Systems Constitutional: Reports: no symptoms. EENTM: Reports: no symptoms. Cardiovascular: Reports: no symptoms, see HPI. Respiratory: Reports: no symptoms. GI: Reports: no symptoms, constipation. Genitourinary: Reports: no symptoms. Musculoskeletal: Reports: no symptoms. Skin: Reports: no symptoms. Neurological/Psychological: Reports: no symptoms. Hematologic/Endocrine: Reports: no symptoms. Immunologic/Allergic: Reports: no symptoms. 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 Ambulation: cane IADLs Independent: shopping, housework, finances, food prep, telephone, transportation , medication admin. Exam & Diagnostic Data Vital Signs and I&O Vital Signs Date Time Temp Pulse Resp B/P B/P Pulse O2 O2 Flow FiO2 Mean Ox Delivery Rate 04/22 1337 96.0 68 20 127/63 100 Room Air 04/22 1131 96.0 70 20 145/67 100 Room Air 04/22 1054 100 Room Air 04/22 0947 97.0 61 18 114/60 100 Room Air Intake & Output 04/22 1600 04/22 0400 04/21 1600 04/21 0400 04/20 1600 04/20 0400 Intake Total Output Total Balance Patient 200 lb Weight Weight Reported by Patient Measurement Method Physical Exam General Appearance: well developed/nourished, no apparent distress, alert Head: normal appearance, Abrasion L face & temporal scalp from previous mechanical fall Eyes: Bilateral: normal appearance. 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 tested Skin: intact, normal color, abrasions as noted Lymphatic: no anterior cervical юлия, no axillary adenopathy Results Pertinent Lab Results: Laboratory Tests 04/22 1050 Chemistry Sodium (137 - 145 mmol/L) 138 Potassium (3.5 - 5.1 mmol/L) 3.6 Chloride (98 - 107 mmol/L) 100 Carbon Dioxide (22 - 30 mmol/L) 23 Anion Gap (5 - 16) 15 BUN (9 - 20 mg/dL) 11 Creatinine (0.7 - 1.2 mg/dL) 2.9 H Estimated GFR (>60 ml/min) 22 L BUN/Creatinine Ratio (7 - 25 %) 3.8 L Glucose (65 - 99 mg/dL) 142 H Calcium (8.4 - 10.2 mg/dL) 8.0 L Total Bilirubin (0.2 - 1.3 mg/dL) 1.4 H AST (17 - 59 U/L) 27 ALT (21 - 72 U/L) 31 Alkaline Phosphatase (< 127 U/L) 119 Troponin I (<0.11 ng/ml) 0.67 *H [id number] Pept (<125 pg/mL) 17702 H Total Protein (6.3 - 8.2 g/dL) 6.6 Albumin (3.5 - 5.0 g/dL) 3.8 Globulin (1.9 - 4.2 gm/dL) 2.8 Albumin/Globulin Ratio (1.1 - 2.2 %) 1.4 Coagulation D-Dimer High Sensitivty (0 - 243 ng/ml) 496 H Hematology CBC w Diff NO MAN DIFF REQ WBC (4.8 - 10.8 /CUMM) 3.6 L RBC (4.70 - 6.10 /CUMM) 3.71 L Hgb (14.0 - 18.0 G/DL) 10.0 L Hct (42 - 52 %) 30.3 L MCV (80.0 - 94.0 FL) 81.6 MCH (27.0 - 31.0 PG) 27.0 RDW (11.5 - 14.5 %) 17.8 H Plt Count (130 - 400 /CUMM) 192 MPV (7.4 - 10.4 FL) 7.8 Gran % (42.2 - 75.2 %) 49.9 Lymphocytes % (20.5 - 51.1 %) 39.3 Monocytes % (1.7 - 9.3 %) 9.2 Eosinophils % (0 - 5 %) 0.8 Basophils % (0.0 - 2.0 %) 0.8 Absolute Granulocytes (1.4 - 6.5 /CUMM) 1.8 Absolute Lymphocytes (1.2 - 3.4 /CUMM) 1.4 Absolute Monocytes (0.10 - 0.60 /CUMM) 0.3 Absolute Eosinophils (0.0 - 0.7 /CUMM) 0 Absolute Basophils (0.0 - 0.2 /CUMM) 0 PUBS MCHC (33.0 - 37.0 G/DL) 33.1 Imaging/Other Studies: CXR: FINDINGS: Right IJ dialysis catheter tip is again noted to project over the right atrium. Asymmetric elevation of the right hemidiaphragm. Previously seen pulmonary edema has resolved. There is mild streaky atelectasis at the right lung base. No focal consolidation, pleural effusion, or pneumothorax. Cardiac silhouette size is normal. ACDF hardware within the lower cervical spine. No acute osseous findings. IMPRESSION: Previously seen pulmonary edema has resolved. There is trace atelectasis at the right lung base and the lungs are otherwise clear. CT: IMPRESSION: - No acute findings. Stable appearing moderate volume intracolonic stool without bowel obstruction. - Small left and trace right pleural effusions. Stable appearing 5 mm right lower lobe pulmonary nodule. - Bilateral renal cysts. Assessment/Plan Assessment/Recommendations Assessment: 1. ESRD: due to DM & HTN; no HD indication today. 2. Hypotension: improved; suspect med related rather than due to acute [place]; prob needs clonidine withdrawal. 3. Elevated tropnin: suspect due to ESRD & demand ischemia in face of hypotension rathe rthan primary [place] but needs card eval. Recommendations: 1. Hold clonidine 2. HD tomorrow 3. Card consult 4. EPO 8000 units IV tiw w HD 5. Sevelamer 1600 mg meals
--- NOTE | 2017-04-22 14:44 | NUR ---
PT TO FLOOR VIA STRETCHER WITH THIS RN AND TRANSPORT ON MONITOR. ALL PAPERWORK AND BELONGINGS SENT. CLINICAL STATUS UNCHANGED.
[2017-04-22 15:00] VITALS: BP 142/64
--- NOTE | 2017-04-22 15:51 | NUR ---
PATIENT ARRIVED ON UNIT FROM ER VIA STRETCHER. PATIENT ADMITTED WITH POSITIVE TROPONIN. DENIES CP.NSR ON TELE. ALERT AND ORIENTATED X3. ON RA. PATIENT DOES COMPLAINS OF ABD CRAMP. LAST BM 5 DAYS AGO. PATIENT HAS BEEN TRYING LAXATIVES AT THE [facility] WITH NO RESULT. MD AWARE PRN ENEMA ORDERED. ROBINA CATH TO RIGHT CHEST WALL. MATURING AV FISTULA TO LEFT FOREARM. +BRUIT AND THRILL. LAST DIALIZED YESTERDAY. NO COMPLAINT AT THIS TIME. ORIENTATED TO ROOM AND CALL LIGHT. WILL FOLLOW PLAN OF CARE.
[2017-04-22 23:29] VITALS: BP 140/60
--- NOTE | 2017-04-23 05:54 | PN- Housestaff ---
See Addendum Subjective Follow-up For: - Hypotension - ESRD on HD (TTS) - CAD s/p stent - Elevated troponins in setting of ESRD Tele-Events Since Last Visit: Normal sinus rythm HR: 60's no oevrnight events. Subjective: Patient seen and exmained at bedside. He states he didnt get out of bed last night and so can not comment onw hwtehr he is dizzzy. Dneis chest pain, shortness ofbreath, nausea, vomiting. Of note he was orthostat positive Review of Systems Constitutional: Denies: chills, diaphoresis, fever. Cardiovascular: Denies: chest pain, orthopena, palpitations. Respiratory: Denies: cough, short of breath, sputum production. Gastrointestinal: Denies: abdominal pain, bloody stool, vomiting. Genitourinary: Reports: no symptoms. Musculoskeletal: Denies: back pain. Neurological/Psychological: Denies: headache, numbness, tingling, tremors. Objective Last 24 Hrs of Vital Signs/I&O Vital Signs Date Time Temp Pulse Resp B/P B/P Pulse O2 O2 Flow FiO2 Mean Ox Delivery Rate 04/22 2329 99.0 62 20 140/60 98 Room Air 04/22 1500 98.8 60 20 142/64 100 Room Air Room Air 04/22 1337 96.0 68 20 127/63 100 Room Air 04/22 1131 96.0 70 20 145/67 100 Room Air 04/22 1054 100 Room Air 04/22 0947 97.0 61 18 114/60 100 Room Air Intake & Output 04/23 0800 04/23 0000 04/22 1600 Intake Total 240 Output Total 350 Balance -110 Intake, Oral 240 Number 1 Bowel Movements Output, Urine 350 Patient 200 lb Weight Weight Reported by Patient Measurement Method Physical Exam General Appearance: Alert, Oriented X3, Cooperative, No Acute Distress HEENT: Atraumatic, PERRLA, EOMI, has a bruise on his forhead and ifraorbital rigde. Neck: Supple, No JVD, No LAD Cardiovascular: Normal S1, Normal S2 Lungs: Clear to Auscultation, Normal Air Movement Abdomen: Normal Bowel Sounds, Soft, No Tenderness Neurological: Normal Speech, Strength at 5/5 X4 Ext, Normal Tone, Sensation Intact, Cranial Nerves 3-12 NL, Reflexes 2+ Extremities: No Cyanosis, No Edema, Normal Pulses Current Medications: Current Medications Sig/Julissa Start time Last Medication Dose Route Stop Time Status Admin Acetaminophen 325 MG Q6P PRN 04/22 1330 AC PO Acetaminophen 1,000 MG Q6P PRN 04/22 1330 AC IV Albuterol Sulfate 2 PUF Q4P PRN 04/22 1345 AC INH Alprazolam 0.5 MG BID PRN 04/22 1345 AC 04/22 PO 04/29 1344 2303 Aspirin 0 .STK-MED ONE 04/22 1205 DC PO Aspirin 162 MG ONCE ONE 04/22 1145 DC 04/22 PO 04/22 1146 1145 Aspirin Buffered 81 MG QPM 04/22 2200 AC 04/22 PO 2300 Atorvastatin Calcium 80 MG QPM 04/22 2200 AC 04/22 PO 2300 Bisacodyl 10 MG DAILY PRN 04/22 1800 AC 04/22 VA 2124 Clopidogrel Bisulfate 75 MG DAILY 04/23 1000 AC PO Docusate Sodium 100 MG BID 04/22 2200 AC 04/22 PO 2300 Enoxaparin Sodium 30 MG DAILY 04/22 1316 AC 04/22 SC 1431 Epoetin [place] 8,000 UNIT TuThSa 04/23 0800 AC SC Folic Acid 1 MG DAILY 04/23 1000 AC PO Hydromorphone HCl 1 MG Q6 PRN 04/22 1330 CAN IV Insulin Aspart 0 TIDAC 04/22 1700 AC SC Isosorbide 60 MG DAILY 04/23 1000 AC Mononitrate PO Levothyroxine Sodium 0.2 MG DAILY AC 04/23 0700 AC PO Melatonin 5 MG AT BEDTIME 04/23 0200 AC 04/23 PO 0208 Multivitamins 1 TAB DAILY 04/23 1000 AC PO Ramelteon 8 MG AT BEDTIME 04/22 2200 AC 04/22 PO 2300 Sertraline HCl 100 MG DAILY 04/23 1000 AC PO Sevelamer Carbonate 1,600 MG WM 04/22 1700 CAN PO Sevelamer Carbonate 1,600 MG WM 04/22 1700 AC 04/22 PO 1736 Tamsulosin HCl 0.4 MG DAILY 04/23 1000 AC PO Trazodone HCl 150 MG AT BEDTIME 04/22 2200 AC 04/22 PO 2300 Last 24 Hrs of Lab/Angus Results Last 24 Hrs of Labs/Mics: Laboratory Tests 04/22/17 2250: Troponin I 0.37 *H 04/22/17 1710: Troponin I 0.48 *H 04/22/17 1050: Anion Gap 15, Estimated GFR 22 L, BUN/Creatinine Ratio 3.8 L, Glucose 142 H, Calcium 8.0 L, Total Bilirubin 1.4 H, AST 27, ALT 31, Alkaline Phosphatase 119 , Troponin I 0.67 *H, [id number] Pept 68942 H, Total Protein 6.6, Albumin 3.8, Globulin 2.8, Albumin/Globulin Ratio 1.4, D-Dimer High Sensitivty 496 H, CBC w Diff NO MAN DIFF REQ, RBC 3.71 L, MCV 81.6, MCH 27.0, RDW 17.8 H , MPV 7.8, Gran % 49.9, Lymphocytes % 39.3, Monocytes % 9.2, Eosinophils % 0.8, Basophils % 0.8, Absolute Granulocytes 1.8, Absolute Lymphocytes 1.4, Absolute Monocytes 0.3, Absolute Eosinophils 0, Absolute Basophils 0, PUBS MCHC 33.1 Assessment/Plan Assessment: Mr. 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 Agrawal's office for dizziness and hypotension. Assessment and Plan: # Hypotension and dizziness 2/2 orthostatic hypotension/ overmedication Check orthostatics q shift Continue to hold home medications metoprolol, and clonidine Close monitoring of the blood pressure # elevated troponin In the setting of ESRD on HD Patient is asymptomatic with no new EKG changes and negative cardiac biomarkers Likely demand ischemia troponins trended dowbn # HFwrEF EF of 45-50% with akinetic apex. Elevated proBNP at 27,600 Monitor ins and outs Daily weight checks Continue to hold Lasix 40 bid with close monitoring of the blood pressure. Cardiology on board. F/U recs #4 End-stage renal disease on hemodialysis Patient is scheduled for dialysis on Tuesday//Tuesday He will b undergoing dialysis today Continue sevelamer Nephrology on board. F/U recommendations # Hypertension Holding on metoprolol and clonidine at this time due to low blood pressure Can resume metoprolol if blood pressure stable Follow cardiology recommendations # Insulin-dependent diabetes melitis with recent episode of hypoglycemia Daily Accu-Cheks NovoLog sliding scale low-dose Endocrinology consult(Dr. Agrawal was planning to take him off insulin due to low requirements) # Recent staph coagulase-negative bacteremia with replacement of Bao cath Posttreatment with 13 days of vancomycin, catheter site looks clean and intact Negative TTE/LILIANE for vegetation No symptoms at this time # history of coronary artery disease status post stents Continue aspirin, statin, Plavix, Imdur Continue beta surya once blood pressure more stable -DVT prophylaxis Subcutaneous Lovenox Full code Diabetic diet Problem List: 1. Hypotension 2. Elevated troponin 3. CAD (coronary artery disease) 4. ESRD (end stage renal disease) on dialysis Pain Ratin Pain Location: n/a Pain Goal: Remain pain free Pain Plan: tylenol Tomorrow's Labs & Rationales: cbc- WBC - BEP- Cr
[2017-04-23 06:51] VITALS: BP 110/66
[2017-04-23 08:37] LABS: ABSOLUTE BASOPHIL COUNT 0 /CUMM (0.0-0.2); ABSOLUTE EOSINOPHIL COUNT 0.1 /CUMM (0.0-0.7); ABSOLUTE LYMPH COUNT 1.5 /CUMM (1.2-3.4); ABSOLUTE MONOCYTE COUNT 0.4 /CUMM (0.10-0.60); BASOPHIL % 1.2 % (0.0-2.0); EOSINOPHIL % 2.2 % (0-5); GRANULOCYTE % 33.3 % (42.2-75.2); MEAN CORPUSCULAR HGB 27.4 PG (27.0-31.0); MEAN CORPUSCULAR HGB CONC 33.7 G/DL (33.0-37.0); MEAN CORPUSCULAR VOLUME 81.4 FL (80.0-94.0); MEAN PLATELET VOLUME 8.2 FL (7.4-10.4); PLATELET COUNT 157 /CUMM (130-400); RED BLOOD CELL CT 3.45 /CUMM (4.70-6.10); WHITE BLOOD CELL COUNT 2.9 /CUMM (4.8-10.8)
--- NOTE | 2017-04-23 09:22 | Cons- Endocrinology ---
General Information and HPI Consulting Request Date of Consult: 04/23/17 Requested By: medical team Reason for Consult: unontrolled diabetes Source of Information: patient, family, old records Exam Limitations: no limitations History of Present Illness: This 67-year-old male with a known on standing history of type 2 diabetes was seen in the office for routine visit yesterday. When he got up in the waiting room to walk into the examination room he felt very dizzy and we had to place him in a wheelchair. His blood pressure was noted to be low while sitting only 93/60. He reported episodes of lightheadedness at home. On one occasion while at home he got out of bed to go to the bathroom and fell to the floor and struck his head. The patient has multiple medical problems including type 2 diabetes mellitus, hypertension, cardiomyopathy, congestive heart failure, recent coagulase- negative staph sepsis, end-stage renal disease on hemodialysis on Tuesday and Saturdays, artery disease status post stents, and hypothyroidism, and a remote history of thyroid cancer which has not been an issue recently.. In the emergency room his troponin was found to be elevated. At home for his diabetes the patient was taken Lantus 5 units daily. He was also on Victoza 1.8 mg daily. Allergies/Medications Allergies: Coded Allergies: Iodinated Contrast- Oral and IV Dye (PER PT STATES HIS KIDNEYS ARE SHOT HE IS ON DIALYSIS 03/27/17) morphine (Mild, LOOPY 01/18/17) hydromorphone (DEPRESSED RESPIRATIONS 01/18/17) Home Med List: Albuterol Sulfate (Proair Hfa) 90 MCG HFA.AER.AD 2 PUF INH Q4H PRN SOB ( Reported) Alprazolam (Xanax) 0.5 MG TABLET 1 TAB PO BID PRN ANXIETY Aspirin (Ecotrin*) 81 MG TABLET.DR 1 TAB PO QPM CAD (Reported) Atorvastatin Calcium (Lipitor) 80 MG TABLET 1 TAB PO QPM CHOLESTEROL ( Reported) Budesonide/Formoterol Fumarate (Symbicort 160-4.5 Mcg Inhaler) 160 MCG-4.5 MCG/ ACTUATION HFA.AER.AD 2 PUF INH BID COPD Rinse your mouth after using inhaler. Clonidine HCl 0.1 MG TABLET 1 TAB PO BID BP (Reported) Clopidogrel Bisulfate (Plavix) 75 MG TABLET 75 MG PO DAILY ANTIPLATELET Folic Acid 1 MG TABLET 1 TAB PO DAILY SUPPLEMENT (Reported) Furosemide (Lasix) 40 MG TABLET 80 MG PO DAILY diuresis Insulin Glargine,Hum.rec.anlog (Lantus Solostar) 100 UNIT/ML (3 ML) INSULN.PEN 5 UNIT SC BID DIABETES (Reported) Isosorbide Mononitrate (Isosorbide Mononitrate ER) 60 MG TAB.ER.24H 1 TAB PO DAILY CAD Levothyroxine Sodium (Synthroid) 200 MCG TABLET 0.2 MG PO DAILY AC THYROID Liraglutide (Victoza 3-Zeus) 0.6 MG/0.1 ML (18 MG/3 ML) PEN.INJCTR 1.8 MG SC QPM DIABETES (Reported) Metoprolol Tartrate 100 MG TABLET 1 TAB PO DAILY HEART (Reported) Nut.tx.impaired Renal Fxn,Soy (Nepro Carb Steady) (Unknown Strength) LIQUID 120 ML PO BID UNKNOWN (Reported) Ramelteon (Rozerem) 8 MG TABLET 1 TAB PO AT BEDTIME SLEEP HELP Sennosides/Docusate Sodium (Senna S Tablet) 8.6 MG-50 MG TABLET 2 TAB PO QPM GI (Reported) Sertraline HCl (Zoloft) 100 MG TABLET 1 TAB PO DAILY ANXIETY (Reported) Sevelamer Carbonate (Renvela) 800 MG TABLET 2 TAB PO TID ESRD (Reported) Tamsulosin HCl 0.4 MG CAP.ER.24H 1 CAP PO DAILY PROSTATE (Reported) Trazodone HCl 150 MG TABLET 1 TAB PO QPM SLEEP (Reported) Review of Systems Review of Systems Constitutional: Reports: weakness. Denies: chills, fever. Cardiovascular: Denies: chest pain. Respiratory: Denies: cough, short of breath. GI: Denies: abdominal pain, nausea, vomiting. Genitourinary: Denies: discharge. Skin: Reports: no symptoms. Past History Travel History Traveled to [place] past 21 day No Medical History Blood Transfusion Hx: Yes Neurological: NONE EENT: NONE Cardiovascular: CAD, hypertension, hyperlipidemia, PVD, 6 CARDIAC STENTS Respiratory: COPD Gastrointestinal: NONE Hepatic: NONE Renal: chronic kidney disease, L ARM AVF PLACED 01/17/17 Musculoskeletal: chronic back pain, ?BACK PROBLEM REQUIRE SX Psychiatric: NONE Endocrine: diabetes Blood Disorders: NONE Cancer(s): THYROID CA FIRE MARSHAL REFINERY/Reproductive: NONE Surgical History Surgical History: CARDIAC STENTS X 6 THYROIDECTOMY LEFT LEG FX REPAIR ELBOW FX REPAIR SPINAL FUSION C4-C5 AV fistula Family History Relations & Conditions If Any: FATHER FH: heart disease Relation not specified for: FH: diabetes mellitus FH: hypertension Psychosocial History Where Do You Live? Home Services at Home: Physical Therapy Smoking Status: Former Smoker ETOH Use: denies use Illicit Drug Use: denies illicit drug use Functional Ability ADLs Independent: dressing, eating, toileting, bathing. Ambulation: cane IADLs Independent: shopping, housework, finances, food prep, telephone, transportation , medication admin. Exam & Diagnostic Data Last 24 Hrs of Vital Signs/I&O Vital Signs Date Time Temp Pulse Resp B/P B/P Pulse O2 O2 Flow FiO2 Mean Ox Delivery Rate 04/23 0651 98.4 62 20 110/66 97 Room Air 04/22 2329 99.0 62 20 140/60 98 Room Air 04/22 1500 98.8 60 20 142/64 100 Room Air Room Air 04/22 1337 96.0 68 20 127/63 100 Room Air 04/22 1131 96.0 70 20 145/67 100 Room Air 04/22 1054 100 Room Air 04/22 0947 97.0 61 18 114/60 100 Room Air Intake & Output 04/23 1600 15 0800 07/15 0000 Intake Total 120 240 Output Total 350 Balance 120 -110 Intake, Oral 120 240 Number 1 Bowel Movements Output, Urine 350 Patient 184 lb Weight Weight Chair scale Measurement Method Vital Signs Date Time Temp Pulse Resp B/P B/P Pulse O2 O2 Flow FiO2 Mean Ox Delivery Rate 04/23 0651 98.4 62 20 110/66 97 Room Air 04/22 2329 99.0 62 20 140/60 98 Room Air 04/22 1500 98.8 60 20 142/64 100 Room Air Room Air 04/22 1337 96.0 68 20 127/63 100 Room Air 04/22 1131 96.0 70 20 145/67 100 Room Air 04/22 1054 100 Room Air 04/22 0947 97.0 61 18 114/60 100 Room Air Intake & Output 04/23 1600 /15 0800 07/15 0000 Intake Total 120 240 Output Total 350 Balance 120 -110 Intake, Oral 120 240 Number 1 Bowel Movements Output, Urine 350 Patient 184 lb Weight Weight Chair scale Measurement Method Physical Exam General Appearance: alert, awake, comfortable Head: ecchymosis right forehead Eyes: Bilateral: normal appearance. Neck: normal inspection Respiratory: normal breath sounds Cardiovascular: regular rate/rhythm Gastrointestinal: normal bowel sounds, soft Extremities: normal inspection Skin: intact Labs/Angus Results: Laboratory Tests 04/23 04/22 04/22 0645 2250 1710 Chemistry Sodium (137 - 145 mmol/L) 135 L Potassium (3.5 - 5.1 mmol/L) 3.0 L Chloride (98 - 107 mmol/L) 100 Carbon Dioxide (22 - 30 mmol/L) 22 Anion Gap (5 - 16) 13 BUN (9 - 20 mg/dL) 15 Creatinine (0.7 - 1.2 mg/dL) 3.6 H Estimated GFR (>60 ml/min) 17 L BUN/Creatinine Ratio (7 - 25 %) 4.2 L Troponin I (<0.11 ng/ml) 0.37 *H 0.48 *H Hematology CBC w Diff NO MAN DIFF REQ WBC (4.8 - 10.8 /CUMM) 2.9 L RBC (4.70 - 6.10 /CUMM) 3.45 L Hgb (14.0 - 18.0 G/DL) 9.4 L Hct (42 - 52 %) 28.0 L MCV (80.0 - 94.0 FL) 81.4 MCH (27.0 - 31.0 PG) 27.4 RDW (11.5 - 14.5 %) 18.0 H Plt Count (130 - 400 /CUMM) 157 MPV (7.4 - 10.4 FL) 8.2 Gran % (42.2 - 75.2 %) 33.3 L Lymphocytes % (20.5 - 51.1 %) 50.7 Monocytes % (1.7 - 9.3 %) 12.6 H Eosinophils % (0 - 5 %) 2.2 Basophils % (0.0 - 2.0 %) 1.2 Absolute Granulocytes (1.4 - 6.5 /CUMM) 1.0 L Absolute Lymphocytes (1.2 - 3.4 /CUMM) 1.5 Absolute Monocytes (0.10 - 0.60 /CUMM) 0.4 Absolute Eosinophils (0.0 - 0.7 /CUMM) 0.1 Absolute Basophils (0.0 - 0.2 /CUMM) 0 PUBS MCHC (33.0 - 37.0 G/DL) 33.7 07/14 1050 Chemistry Sodium (137 - 145 mmol/L) 138 Potassium (3.5 - 5.1 mmol/L) 3.6 Chloride (98 - 107 mmol/L) 100 Carbon Dioxide (22 - 30 mmol/L) 23 Anion Gap (5 - 16) 15 BUN (9 - 20 mg/dL) 11 Creatinine (0.7 - 1.2 mg/dL) 2.9 H Estimated GFR (>60 ml/min) 22 L BUN/Creatinine Ratio (7 - 25 %) 3.8 L Glucose (65 - 99 mg/dL) 142 H Calcium (8.4 - 10.2 mg/dL) 8.0 L Total Bilirubin (0.2 - 1.3 mg/dL) 1.4 H AST (17 - 59 U/L) 27 ALT (21 - 72 U/L) 31 Alkaline Phosphatase (< 127 U/L) 119 Troponin I (<0.11 ng/ml) 0.67 *H Efu-K-Qlzbdgnufly Pept (<125 pg/mL) 15483 H Total Protein (6.3 - 8.2 g/dL) 6.6 Albumin (3.5 - 5.0 g/dL) 3.8 Globulin (1.9 - 4.2 gm/dL) 2.8 Albumin/Globulin Ratio (1.1 - 2.2 %) 1.4 Coagulation D-Dimer High Sensitivty (0 - 243 ng/ml) 496 H Hematology CBC w Diff NO MAN DIFF REQ WBC (4.8 - 10.8 /CUMM) 3.6 L RBC (4.70 - 6.10 /CUMM) 3.71 L Hgb (14.0 - 18.0 G/DL) 10.0 L Hct (42 - 52 %) 30.3 L MCV (80.0 - 94.0 FL) 81.6 MCH (27.0 - 31.0 PG) 27.0 RDW (11.5 - 14.5 %) 17.8 H Plt Count (130 - 400 /CUMM) 192 MPV (7.4 - 10.4 FL) 7.8 Gran % (42.2 - 75.2 %) 49.9 Lymphocytes % (20.5 - 51.1 %) 39.3 Monocytes % (1.7 - 9.3 %) 9.2 Eosinophils % (0 - 5 %) 0.8 Basophils % (0.0 - 2.0 %) 0.8 Absolute Granulocytes (1.4 - 6.5 /CUMM) 1.8 Absolute Lymphocytes (1.2 - 3.4 /CUMM) 1.4 Absolute Monocytes (0.10 - 0.60 /CUMM) 0.3 Absolute Eosinophils (0.0 - 0.7 /CUMM) 0 Absolute Basophils (0.0 - 0.2 /CUMM) 0 PUBS MCHC (33.0 - 37.0 G/DL) 33.1 Assessment/Plan Assessment/Plan This 67-year-old male has a long-standing history of type 2 diabetes with severe complications. He has end-stage renal disease and is on hemodialysis. He presents with hypotension and dizziness when standing up and he incurred a fall at home. His blood pressure was extremely low in my office and he was sent to the emergency room for further evaluation. His blood pressure medications are being tapered. His troponin was found to be elevated initially and this is felt to be demand ischemia cardiology consult has been obtained. With regard to his diabetes I would discontinue the Lantus for now. He is on low-dose sliding scale NovoLog and his sugars have been below and 150 since coming to the hospital. For now I would keep him on the present sliding-scale and just observe his sugars. Further recommendations will be made once we see the pattern of his blood sugars. Suggest that we recheck his thyroid function tests including a free T4 and TSH. When the patient goes home his Victoza should be eliminated from his home medication list.. Consult Acknowledgment - Thank you for your consult request.
--- NOTE | 2017-04-23 11:03 | PN- Nephrology ---
Assessment/Plan Assessment: ESRD on dialysis now. Tolerating well. will continue TTS dialysis Suggestion: ESRD on dialysis. K low Would replace K (40 mEq) Subjective Subjective: Pt on dialysis BP okay No SOB Objective Vital Signs and I&Os M NAD 110/66 98.4 62 Skin neg rash Lungs clear Cor RRR Abd soft Ext neg edema Results Pertinent Lab Results: 135 / 100 / 15 3.0 / 22 / 3.6
--- NOTE | 2017-04-23 13:25 | PN- Cardiology ---
Subjective Subjective: Patient seen during dialysis. Denies any chest pain, dyspnea, or palpitations. Does note some fatigue. Objective Vital Signs and I&Os Vital Signs Date Time Temp Pulse Resp B/P B/P Pulse O2 O2 Flow FiO2 Mean Ox Delivery Rate 04/23 0651 98.4 62 20 110/66 97 Room Air 04/22 2329 99.0 62 20 140/60 98 Room Air 04/22 1500 98.8 60 20 142/64 100 Room Air Room Air 04/22 1337 96.0 68 20 127/63 100 Room Air Intake & Output 04/23 1600 04/23 0804/23 0000 04/22 1600 04/22 0804/22 0000 Intake Total 120 240 Output Total 350 Balance 120 -110 Intake, Oral 120 240 Number 1 Bowel Movements Output, Urine 350 Patient 189 lb 184 lb 200 lb Weight Weight Standing Scale Chair scale Reported by Patient Measurement Method Physical Exam: General: no apparent distress. Alert. Eyes: No obvious scleral icterus. HEENT: No jugular venous distention or abnormal jugular venous pulsations. Cardiovascular: Normal intensity S1/S2. Regular Respiratory: Lungs clear to auscultation bilaterally. Abdomen: Soft, nontender with no guarding or rebound tenderness. Musculoskeletal: No clubbing or cyanosis noted, no edema Skin: Warm Neurologic: No gross focal deficits noted. Current Medications: Current Medications Sig/Julissa Start time Last Medication Dose Route Stop Time Status Admin Acetaminophen 325 MG Q6P PRN 04/22 1330 AC PO Acetaminophen 1,000 MG Q6P PRN 04/22 1330 AC IV Albuterol Sulfate 2 PUF Q4P PRN 04/22 1345 AC INH Alprazolam 0.5 MG BID PRN 04/22 1345 AC 04/22 PO 04/29 1344 2303 Aspirin Buffered 81 MG QPM 04/22 2200 AC 04/22 PO 2300 Atorvastatin Calcium 80 MG QPM 04/22 2200 AC 04/22 PO 2300 Bisacodyl 10 MG DAILY PRN 04/22 1800 AC 04/22 NM 2124 Clopidogrel Bisulfate 75 MG DAILY 04/23 1000 AC PO Docusate Sodium 100 MG BID 04/22 2200 AC 04/22 PO 2300 Enoxaparin Sodium 30 MG DAILY 04/22 1316 AC 04/22 SC 1431 Epoetin [place] 8,000 UNIT TuThSa 04/23 0800 AC SC Folic Acid 1 MG DAILY 04/23 1000 AC PO Hydromorphone HCl 1 MG Q6 PRN 04/22 1330 CAN IV Insulin Aspart 0 TIDAC 04/22 1700 AC SC Isosorbide 60 MG DAILY 04/23 1000 AC Mononitrate PO Levothyroxine Sodium 0.2 MG DAILY AC 04/23 0700 AC 04/23 PO 0710 Melatonin 5 MG AT BEDTIME 04/23 0200 AC 04/23 PO 0208 Multivitamins 1 TAB DAILY 04/23 1000 AC PO Ramelteon 8 MG AT BEDTIME 04/22 2200 AC 04/22 PO 2300 Sertraline HCl 100 MG DAILY 04/23 1000 AC PO Sevelamer Carbonate 1,600 MG WM 04/22 1700 CAN PO Sevelamer Carbonate 1,600 MG WM 04/22 1700 AC 04/22 PO 1736 Tamsulosin HCl 0.4 MG DAILY 04/23 1000 AC PO Trazodone HCl 150 MG AT BEDTIME 04/22 2200 AC 04/22 PO 2300 Results Last 48 Hrs of Labs/Mics: Laboratory Tests 04/23/17 0948: Hep Bs Antibody Cancelled 04/23/17 0645: Anion Gap 13, Estimated GFR 17 L, BUN/Creatinine Ratio 4.2 L, TSH 26.100 H, Thyroxine (T4) 3.5 L, CBC w Diff NO MAN DIFF REQ, RBC 3.45 L, MCV 81.4, MCH 27.4, RDW 18.0 H, MPV 8.2, Gran % 33.3 L, Lymphocytes % 50.7, Monocytes % 12.6 H, Eosinophils % 2.2, Basophils % 1.2, Absolute Granulocytes 1.0 L, Absolute Lymphocytes 1.5, Absolute Monocytes 0.4, Absolute Eosinophils 0.1, Absolute Basophils 0, PUBS MCHC 33.7, Hep Bs Antibody NONREACTIVE 04/22/17 2250: Troponin I 0.37 *H 04/22/17 1710: Troponin I 0.48 *H 04/22/17 1050: Anion Gap 15, Estimated GFR 22 L, BUN/Creatinine Ratio 3.8 L, Glucose 142 H, Calcium 8.0 L, Total Bilirubin 1.4 H, AST 27, ALT 31, Alkaline Phosphatase 119 , Troponin I 0.67 *H, Jzp-Y-Afxzhyeoxzv Pept 36111 H, Total Protein 6.6, Albumin 3.8, Globulin 2.8, Albumin/Globulin Ratio 1.4, D-Dimer High Sensitivty 496 H, CBC w Diff NO MAN DIFF REQ, RBC 3.71 L, MCV 81.6, MCH 27.0, RDW 17.8 H , MPV 7.8, Gran % 49.9, Lymphocytes % 39.3, Monocytes % 9.2, Eosinophils % 0.8, Basophils % 0.8, Absolute Granulocytes 1.8, Absolute Lymphocytes 1.4, Absolute Monocytes 0.3, Absolute Eosinophils 0, Absolute Basophils 0, PUBS MCHC 33.1 Recent Imaging Studies: Telemetry tracings were personally reviewed and shows sinus rhythm with a possible episode of AIVR Assessment/Plan Assessment/Plan 1. Hypotension with lightheadedness; possibly orthostatic hypotension 2. Elevated troponin 3. History of CAD; status post Ramus and M1 stents in 10/26 4. ESRD on HD 5. 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 History of HTN 7. History of IDDM 8. Recent Coag negative staph bacteremia 9. Normocytic anemia 10. Hypocalcemia The patient was seen during dialysis. He remains hemodynamically stable. Denies any chest pain, palpitations, or dyspnea. He does note some fatigue. Flat troponin curve suggestive of demand ischemia. Document orthostatic vital signs. Continue the current cardiac regimen. Plan to resume beta surya as blood pressure tolerates. James Romero MD [facility] Continue telemetry? Yes
[2017-04-23 15:26] VITALS: BP 116/54
[2017-04-23 19:47] VITALS: BP 108/50
[2017-04-23 22:47] VITALS: BP 98/60
[2017-04-24 06:38] VITALS: BP 132/70
[2017-04-24 08:24] LABS: ABSOLUTE GRANULOCYTE CT 1.9 /CUMM (1.4-6.5); ABSOLUTE LYMPH COUNT 1.2 /CUMM (1.2-3.4); ABSOLUTE MONOCYTE COUNT 0.3 /CUMM (0.10-0.60); BASOPHIL % 0.5 % (0.0-2.0); HEMATOCRIT 28.7 % (42-52); MEAN CORPUSCULAR HGB 26.8 PG (27.0-31.0); MEAN CORPUSCULAR VOLUME 81.3 FL (80.0-94.0); MEAN PLATELET VOLUME 8.4 FL (7.4-10.4); PLATELET COUNT 148 /CUMM (130-400); RED BLOOD CELL CT 3.52 /CUMM (4.70-6.10); WHITE BLOOD CELL COUNT 3.3 /CUMM (4.8-10.8)
--- NOTE | 2017-04-24 08:32 | NUR ---
0000 PT VOMITED APPROX 700ML OF UNDISGETED FOODS.GUAIC NEGATIVE.VITALS STABLE.EXCEPT TEMP 100.1.INTER NASO MADE AWARE NEW ORDERS GIVEN FOR TIGAN.GIVEN WITH GOOD EFFECT.
[2017-04-24 09:21] LABS: EOSINOPHIL % 0.3 % (0-5); GRANULOCYTE % 55.6 % (42.2-75.2)
--- NOTE | 2017-04-24 09:41 | PN- Diabetes ---
Assessment/Plan Assessment: The patient had one episode of vomiting last night. However he ate breakfast well today. He had hemodialysis yesterday. The patient is on low-dose NovoLog sliding scale for his diabetes. Blood sugars yesterday were 126 before breakfast, 104 before lunch, 220 at suppertime, and 125 at bedtime. The patient's thyroid tests reveal a TSH of 26.1. Therefore patient's test show evidence of hypothyroidism despite the administration of 200 g of levothyroxin a day. This could be related to sevelemer which can interfere with the absorption of thyroid hormone. Plan: The patient's serum phosphorus is low but we should not give phosphate supplements to a patient with renal failure. Neutra-Phos needs to be canceled. The patient is actually on a phosphate binder. With regard to his sugars we can keep him on low dose NovoLog sliding scale starting with the sugar above 200. I would revise the NovoLog sliding scale 3 times a day before meals only to be less than 200 give no insulin, 201-250 give 2 units NovoLog, 251-300 give 3 units NovoLog, 301-350 give 4 units NovoLog, 351 -400 give 5 units NovoLog. At this point the patient does not need any basal insulin. With regard to his thyroid we should change the time of the administration of his thyroid hormone. It should be oh by at least 4 hours from the sevelemer. Therefore I would change his levothyroxine to 200 g given daily at bedtime Subjective Subjective: Feels okay Review of Systems Constitutional: Denies: chills, fever. Cardiovascular: Denies: chest pain. Respiratory: Denies: cough, short of breath. Gastrointestinal: Denies: abdominal pain, nausea, vomiting. Skin: Reports: no symptoms. Objective Last 24 Hrs of Vital Signs/I&O Vital Signs Date Time Temp Pulse Resp B/P B/P Pulse O2 O2 Flow FiO2 Mean Ox Delivery Rate 04/24 0638 100.0 76 20 132/70 100 Room Air 04/24 0006 100.2 100 04/23 2247 98.0 69 16 98/60 98 Room Air 04/23 1947 63 108/50 04/23 1526 98.0 64 20 116/54 98 Room Air 04/23 1352 98.4 62 138/70 04/23 1345 62 138/70 Intake & Output 04/24 1600 04/24 0800 04/24 0000 Intake Total 200 400 Output Total 100 700 Balance -100 -500 400 Intake, IV 0 Intake, Oral 200 400 Number 1 Bowel Movements Output, 700 Emesis Output, Urine 100 Patient 195 lb Weight Weight Standing Scale Measurement Method Vital Signs Date Time Temp Pulse Resp B/P B/P Pulse O2 O2 Flow FiO2 Mean Ox Delivery Rate 04/24 0638 100.0 76 20 132/70 100 Room Air 04/24 0006 100.2 100 04/23 2247 98.0 69 16 98/60 98 Room Air 04/23 1947 63 108/50 04/23 1526 98.0 64 20 116/54 98 Room Air 04/23 1352 98.4 62 138/70 04/23 1345 62 138/70 Intake & Output 04/24 1600 04/24 0800 04/24 0000 Intake Total 200 400 Output Total 100 700 Balance -100 -500 400 Intake, IV 0 Intake, Oral 200 400 Number 1 Bowel Movements Output, 700 Emesis Output, Urine 100 Patient 195 lb Weight Weight Standing Scale Measurement Method Physical Exam General Appearance: well developed/nourished, alert, awake Head: normal appearance Neck: normal inspection Respiratory: lungs clear Cardiovascular: regular rate/rhythm Abdomen: normal bowel sounds, soft Extremities: normal inspection Current Medications: Current Medications Sig/Julissa Start time Last Medication Dose Route Stop Time Status Admin Acetaminophen 325 MG Q6P PRN 04/22 1330 AC PO Acetaminophen 1,000 MG Q6P PRN 04/22 1330 AC IV Albuterol Sulfate 2 PUF Q4P PRN 04/22 1345 AC INH Alprazolam 0.5 MG BID PRN 04/22 1345 AC 04/23 PO 04/29 1344 2125 Aspirin Buffered 81 MG QPM 04/22 2200 AC 04/23 PO 2122 Atorvastatin Calcium 80 MG QPM 04/22 2200 AC 04/23 PO 2122 Bisacodyl 10 MG DAILY PRN 04/22 1800 AC 04/22 OK 2124 Clopidogrel Bisulfate 75 MG DAILY 04/23 1000 AC 04/23 PO 1345 Docusate Sodium 100 MG BID 04/22 2200 AC 04/23 PO 2122 Enoxaparin Sodium 30 MG DAILY 04/22 1316 AC 04/23 SC 1353 Epoetin [place] 8,000 UNIT TuThSa 04/23 0800 AC 04/23 SC 1351 Folic Acid 1 MG DAILY 04/23 1000 AC 04/23 PO 1345 Insulin Aspart 0 TIDAC 04/22 1700 AC 04/23 SC 1718 Isosorbide 60 MG DAILY 04/23 1000 AC 04/23 Mononitrate PO 1345 Levothyroxine Sodium 0.2 MG DAILY AC 04/23 0700 AC 04/24 PO 0629 Melatonin 5 MG AT BEDTIME 04/23 0200 AC 04/23 PO 2122 Metoprolol Tartrate 12.5 MG BID 04/24 1000 AC PO Multivitamins 1 TAB DAILY 04/23 1000 AC 04/23 PO 1345 Ondansetron HCl 4 MG .STK-MED ONE 04/24 0022 DC PO 04/24 0023 Ondansetron HCl 4 MG Q6P PRN 04/24 0015 AC IV Phosphate 250 MG PC AND AT BEDTIME 04/24 1300 CAN PO Potassium Chloride 40 MEQ BID 04/24 1000 AC PO 04/24 2201 Potassium Chloride 40 MEQ ONCE ONE 04/23 1645 DC 04/23 PO 04/23 1646 1718 Ramelteon 8 MG AT BEDTIME 04/22 2200 AC 04/23 PO 2122 Sertraline HCl 100 MG DAILY 04/23 1000 AC 04/23 PO 1345 Sevelamer Carbonate 1,600 MG WM 04/22 1700 AC 04/24 PO 0803 Tamsulosin HCl 0.4 MG DAILY 04/23 1000 AC 04/23 PO 1352 Trazodone HCl 150 MG AT BEDTIME 04/22 2200 AC 04/23 PO 2122 Trimethobenzamide HCl 200 MG Q6P PRN 04/24 0030 AC IM Trimethobenzamide HCl 200 MG 4 TIMES/DAY PRN 04/24 0015 CAN IM Findings Pertinent Lab/Angus Results: Laboratory Tests 04/24 04/23 0706 0948 Chemistry Sodium (137 - 145 mmol/L) 133 L Potassium (3.5 - 5.1 mmol/L) 3.3 L Chloride (98 - 107 mmol/L) 98 Carbon Dioxide (22 - 30 mmol/L) 21 L Anion Gap (5 - 16) 13 BUN (9 - 20 mg/dL) 8 L Creatinine (0.7 - 1.2 mg/dL) 2.7 H Estimated GFR (>60 ml/min) 24 L BUN/Creatinine Ratio (7 - 25 %) 3.0 L Calcium (8.4 - 10.2 mg/dL) 8.6 Phosphorus (2.5 - 4.5 mg/dL) 0.8 *L Magnesium (1.6 - 2.3 mg/dL) 1.5 L Troponin I (<0.11 ng/ml) 0.81 *H Hematology CBC w Diff NO MAN DIFF REQ WBC (4.8 - 10.8 /CUMM) 3.3 L RBC (4.70 - 6.10 /CUMM) 3.52 L Hgb (14.0 - 18.0 G/DL) 9.5 L Hct (42 - 52 %) 28.7 L MCV (80.0 - 94.0 FL) 81.3 MCH (27.0 - 31.0 PG) 26.8 L RDW (11.5 - 14.5 %) 20.0 H Plt Count (130 - 400 /CUMM) 148 MPV (7.4 - 10.4 FL) 8.4 Gran % (42.2 - 75.2 %) 55.6 Lymphocytes % (20.5 - 51.1 %) 35.5 Monocytes % (1.7 - 9.3 %) 8.1 Eosinophils % (0 - 5 %) 0.3 Basophils % (0.0 - 2.0 %) 0.5 Absolute Granulocytes (1.4 - 6.5 /CUMM) 1.9 Absolute Lymphocytes (1.2 - 3.4 /CUMM) 1.2 Absolute Monocytes (0.10 - 0.60 /CUMM) 0.3 Absolute Eosinophils (0.0 - 0.7 /CUMM) 0.0 Absolute Basophils (0.0 - 0.2 /CUMM) 0.0 PUBS MCHC (33.0 - 37.0 G/DL) 33.0 Serology Hep Bs Antibody Cancelled
--- NOTE | 2017-04-24 11:57 | PN- Att Addend ---
Attending Addendum Attending Brief Note Patient seen and examined. Plan of care discussed with the medical team and the patient. Available lab work and radiology test reports were reviewed. Patient has low-grade temperature 100.2. Patient denies any new symptoms. He appears comfortable. His blood pressure has been stable and there have been no further episodes of hypertension. Patient denies any lightheadedness or dizziness. He denies any fever chills any nausea vomiting or abdominal pain or difficulty breathing. Vital Signs Date Time Temp Pulse Resp B/P B/P Pulse O2 O2 Flow FiO2 Mean Ox Delivery Rate 04/24 1050 67 132/70 04/24 1050 67 132/70 04/24 1049 67 132/70 04/24 0638 100.0 76 20 132/70 100 Room Air 04/24 0006 100.2 100 04/23 2247 98.0 69 16 98/60 98 Room Air 04/23 1947 63 108/50 04/23 1526 98.0 64 20 116/54 98 Room Air 04/23 1352 98.4 62 138/70 04/23 1345 62 138/70 Intake & Output 04/24 1600 04/24 0800 04/24 0000 Intake Total 200 400 Output Total 100 700 Balance -100 -500 400 Intake, IV 0 Intake, Oral 200 400 Number 1 Bowel Movements Output, 700 Emesis Output, Urine 100 Patient 195 lb Weight Weight Standing Scale Measurement Method Exam: General: Patient awake alert oriented without any distress CVS: S1 plus S2 without any murmur or gallops Chest: Few scattered crepitation without any wheeze. There is no respiratory distress. Srinath catheter site is clean without any redness or erythema Abdomen: Soft nontender, bowel sound present, no guarding or rebound INFORMATION RESOURCES MANAGER: Awake alert oriented without any focal neuro deficit and follows command appropriately Extremities: No edema; no clubbing or cyanosis noted Laboratory Tests 04/24 0706 Chemistry Sodium (137 - 145 mmol/L) 133 L Potassium (3.5 - 5.1 mmol/L) 3.3 L Chloride (98 - 107 mmol/L) 98 Carbon Dioxide (22 - 30 mmol/L) 21 L Anion Gap (5 - 16) 13 BUN (9 - 20 mg/dL) 8 L Creatinine (0.7 - 1.2 mg/dL) 2.7 H Estimated GFR (>60 ml/min) 24 L BUN/Creatinine Ratio (7 - 25 %) 3.0 L Calcium (8.4 - 10.2 mg/dL) 8.6 Phosphorus (2.5 - 4.5 mg/dL) 0.8 *L Magnesium (1.6 - 2.3 mg/dL) 1.5 L Troponin I (<0.11 ng/ml) 0.81 *H Hematology CBC w Diff NO MAN DIFF REQ WBC (4.8 - 10.8 /CUMM) 3.3 L RBC (4.70 - 6.10 /CUMM) 3.52 L Hgb (14.0 - 18.0 G/DL) 9.5 L Hct (42 - 52 %) 28.7 L MCV (80.0 - 94.0 FL) 81.3 MCH (27.0 - 31.0 PG) 26.8 L RDW (11.5 - 14.5 %) 20.0 H Plt Count (130 - 400 /CUMM) 148 MPV (7.4 - 10.4 FL) 8.4 Gran % (42.2 - 75.2 %) 55.6 Lymphocytes % (20.5 - 51.1 %) 35.5 Monocytes % (1.7 - 9.3 %) 8.1 Eosinophils % (0 - 5 %) 0.3 Basophils % (0.0 - 2.0 %) 0.5 Absolute Granulocytes (1.4 - 6.5 /CUMM) 1.9 Absolute Lymphocytes (1.2 - 3.4 /CUMM) 1.2 Absolute Monocytes (0.10 - 0.60 /CUMM) 0.3 Absolute Eosinophils (0.0 - 0.7 /CUMM) 0.0 Absolute Basophils (0.0 - 0.2 /CUMM) 0.0 PUBS MCHC (33.0 - 37.0 G/DL) 33.0 Assessment and plan * Hypotension likely due to medication- currently stable * End-stage renal disease on hemodialysis- patient had hemodialysis yesterday * Diabetes- patient has been seen by Dr. Agrawal. Recommendations noted. Agree with discontinuation of victoza and Lantus. Continue sliding scale. * Hypokalemia improved from a level of 2.9 yesterday to 3.3 today. * Fever while on antibiotics- no clear sign of infection. If patient has recurrent fever we will draw cultures; we'll monitor patient for next 24 hours. * If patient remains stable and without any recurrence of fever we will consider for discharge tomorrow
--- NOTE | 2017-04-24 13:30 | PN- Cardiology ---
Subjective Subjective: Patient is resting comfortably. Denies any dyspnea, palpitations, or chest pain. Had dialysis yesterday. Objective Vital Signs and I&Os Vital Signs Date Time Temp Pulse Resp B/P B/P Pulse O2 O2 Flow FiO2 Mean Ox Delivery Rate 04/24 1314 99.1 04/24 1050 67 132/70 04/24 1050 67 132/70 04/24 1049 67 132/70 04/24 0638 100.0 76 20 132/70 100 Room Air 04/24 0006 100.2 100 04/23 2247 98.0 69 16 98/60 98 Room Air 04/23 1947 63 108/50 04/23 1526 98.0 64 20 116/54 98 Room Air 04/23 1352 98.4 62 138/70 04/23 1345 62 138/70 Intake & Output 04/24 1600 04/24 0800 04/24 0000 04/23 1600 04/23 0800 04/23 0000 Intake Total 200 400 450 120 240 Output Total 516 966 9313 350 Balance -100 -500 400 -750 120 -110 Intake, IV 0 Intake, Oral 200 400 450 120 240 Number 1 1 Bowel Movements Output, 1000 Dialysate Output, 700 Emesis Output, Urine 100 200 350 Patient 195 lb 189 lb 184 lb Weight Weight Standing Scale Standing Scale Chair scale Measurement Method Physical Exam: General: no apparent distress. Alert. Eyes: No obvious scleral icterus. HEENT: No jugular venous distention or abnormal jugular venous pulsations. Cardiovascular: Normal intensity S1/S2. Regular Respiratory: Lungs clear to auscultation bilaterally. Abdomen: Soft, nontender with no guarding or rebound tenderness. Musculoskeletal: No clubbing or cyanosis noted, no edema Skin: Warm Neurologic: No gross focal deficits noted. Current Medications: Current Medications Sig/Julissa Start time Last Medication Dose Route Stop Time Status Admin Acetaminophen 325 MG Q6P PRN 04/22 1330 AC PO Acetaminophen 1,000 MG Q6P PRN 04/22 1330 AC IV Albuterol Sulfate 2 PUF Q4P PRN 04/22 1345 AC INH Alprazolam 0.5 MG BID PRN 04/22 1345 AC 04/24 PO 04/29 1344 1053 Aspirin Buffered 81 MG QPM 07 2200 AC 04/23 PO 212 Atorvastatin Calcium 80 MG QPM 04/22 2200 AC 04/23 PO 2122 Bisacodyl 10 MG DAILY PRN 04/22 1800 AC 04/22 MN 2124 Clopidogrel Bisulfate 75 MG DAILY 04/23 1000 AC 04/24 PO 1049 Docusate Sodium 100 MG BID 04/22 2200 AC 04/24 PO 1050 Enoxaparin Sodium 30 MG DAILY 04/22 1316 AC 04/24 SC 1050 Epoetin [place] 8,000 UNIT TuThSa 04/23 0800 AC 04/23 SC 1351 Folic Acid 1 MG DAILY 04/23 1000 AC 04/24 PO 1049 Insulin Aspart 0 TIDAC 04/22 1700 AC 04/23 SC 1718 Isosorbide 60 MG DAILY 04/23 1000 AC 04/24 Mononitrate PO 1050 Levothyroxine Sodium 0.2 MG DAILY AC 04/23 0700 AC 04/24 PO 0629 Melatonin 5 MG AT BEDTIME 04/23 0200 AC 04/23 PO 2122 Metoprolol Tartrate 12.5 MG BID 04/24 1000 AC 04/24 PO 1049 Multivitamins 1 TAB DAILY 04/23 1000 AC 04/24 PO 1056 Ondansetron HCl 4 MG .STK-MED ONE 04/24 0022 DC PO 04/24 0023 Ondansetron HCl 4 MG Q6P PRN 04/24 0015 AC IV Phosphate 250 MG PC AND AT BEDTIME 04/24 1300 CAN PO Potassium Chloride 40 MEQ BID 04/24 1000 AC 04/24 PO 04/24 2201 1049 Potassium Chloride 40 MEQ ONCE ONE 04/23 1645 DC 04/23 PO 04/23 1646 1718 Ramelteon 8 MG AT BEDTIME 04/22 2200 AC 04/23 PO 2122 Sertraline HCl 100 MG DAILY 04/23 1000 AC 04/24 PO 1049 Sevelamer Carbonate 1,600 MG WM 04/22 1700 AC 04/24 PO 1219 Tamsulosin HCl 0.4 MG DAILY 04/23 1000 AC 04/24 PO 1050 Trazodone HCl 150 MG AT BEDTIME 04/22 2200 AC 04/23 PO 2122 Trimethobenzamide HCl 200 MG Q6P PRN 04/24 0030 AC IM Trimethobenzamide HCl 200 MG 4 TIMES/DAY PRN 04/24 0015 CAN IM Results Last 48 Hrs of Labs/Mics: Laboratory Tests 04/24/17 1300: Troponin I Pending 04/24/17 0706: Anion Gap 13, Estimated GFR 24 L, BUN/Creatinine Ratio 3.0 L, Calcium 8.6, Phosphorus 0.8 *L, Magnesium 1.5 L, Troponin I 0.81 *H, CBC w Diff NO MAN DIFF REQ, RBC 3.52 L, MCV 81.3, MCH 26.8 L, RDW 20.0 H, MPV 8.4, Gran % 55.6, Lymphocytes % 35.5, Monocytes % 8.1, Eosinophils % 0.3, Basophils % 0.5, Absolute Granulocytes 1.9, Absolute Lymphocytes 1.2, Absolute Monocytes 0.3, Absolute Eosinophils 0.0, Absolute Basophils 0.0, PUBS MCHC 33.0 04/23/17 0948: Hep Bs Antibody Cancelled 04/23/17 0645: Anion Gap 13, Estimated GFR 17 L, BUN/Creatinine Ratio 4.2 L, TSH 26.100 H, Thyroxine (T4) 3.5 L, CBC w Diff NO MAN DIFF REQ, RBC 3.45 L, MCV 81.4, MCH 27.4, RDW 18.0 H, MPV 8.2, Gran % 33.3 L, Lymphocytes % 50.7, Monocytes % 12.6 H, Eosinophils % 2.2, Basophils % 1.2, Absolute Granulocytes 1.0 L, Absolute Lymphocytes 1.5, Absolute Monocytes 0.4, Absolute Eosinophils 0.1, Absolute Basophils 0, PUBS MCHC 33.7, Hep Bs Antibody NONREACTIVE 04/22/17 2250: Troponin I 0.37 *H 04/22/17 1710: Troponin I 0.48 *H Recent Imaging Studies: Telemetry tracings were personally reviewed and shows sinus rhythm Assessment/Plan Assessment/Plan 1. Hypotension with lightheadedness; possibly orthostatic hypotension 2. Elevated troponin 3. History of CAD; status post Ramus and M1 stents in 10/26 4. ESRD on HD 5. 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 History of HTN 7. History of IDDM 8. Recent Coag negative staph bacteremia 9. Normocytic anemia 10. Hypocalcemia/hypophoshatemia/hypomagnesemia BP stable. Low grade fever noted. Elevated troponin, fluctuating without chest pain; not consistent with ACS. B-surya has been resumed. Replete Mg/Phosph. James Romero MD [facility] Continue telemetry? Yes
[2017-04-24 14:54] VITALS: BP 142/80
--- NOTE | 2017-04-24 18:09 | Event Note ---
Event Note Event Note: Pt had a very low phosphorus level 0.8 mg/dL this am, and was also found to have an elevation of cardiac enzymes w/ no change in EKG. Received a call from Dr. Pradhan, equipment operator intermodal yard product consultant, who advised discontinuing phosphate binders overnight, and administer iv sodium phosphorous 15mM. Discussed with him about managing hypophosphatemia in renal failure, who is on hemodialysis-and he was of the opinion that hypophosphatemia needs to be treated in this case. Recheck phosphate level around midnight. Informed the tele resident product consultant.
--- NOTE | 2017-04-24 18:11 | NUR ---
1600, patient c/o naussea followed by vomitining x1, Tigan IM given, patient BP 90/48, HR 76, Patient denies any pain, sob, dizziness. Symptoms resolved. MD López notified, WCTM.
[2017-04-24 22:51] VITALS: BP 118/68
--- NOTE | 2017-04-25 05:55 | PN- Housestaff ---
BREE POOLE 04/25/17 0553: Subjective Follow-up For: - elevated troponin Complaints: no complaints Subjective: The patient was comfortable this morning. Did not have any complaints. Vitals were stable, blood pressure remained within normal limits. Orthostatic vitals- negative. Discussed with him about medication changes that were made. Low blood pressure was likely attributed to his hemodialysis schedule. Also made changes to his antidiabetic medications-insulin, after discussing with Dr. Agrawal. Review of Systems Constitutional: Reports: see HPI. Objective Last 24 Hrs of Vital Signs/I&O Vital Signs Date Time Temp Pulse Resp B/P B/P Pulse O2 O2 Flow FiO2 Mean Ox Delivery Rate 04/24 2251 98.6 75 20 118/68 100 Room Air 04/24 2248 89 118/68 04/24 2149 98.6 04/24 1825 99.8 04/24 1454 99.1 87 20 142/80 100 Room Air 04/24 1314 99.1 04/24 1050 67 132/70 04/24 1050 67 132/70 04/24 1049 67 132/70 04/24 0638 100.0 76 20 132/70 100 Room Air Intake & Output 04/25 0800 04/25 0000 04/24 1600 Intake Total 320 Output Total 100 300 Balance 220 -300 Intake, IV 120 Intake, Oral 200 Number 1 Bowel Movements Output, Urine 100 300 Physical Exam General Appearance: No Acute Distress Other Physical Findings: General Exam: AAOx3, No acute distress, Skin: No rashes, no breakdown, no erythema or tenderness at the cath insertion site. HEENT: PERRLA, EOMI Neck: Supple, No JVD No cervical lymphadenopathy CVS: Reg Rate, Normal S1,S2, No MGR Resp: Normal air entry, no ronchi/rales Abdomen: Soft, No tenderness, Normal Bowel Sounds Neuro: Normal Speech, Strength 5/5 b/l x 4 extremities, Sensation intact, CN III -XII NL, Reflexes 2+ Extremities: No cyanosis, pedal edema Current Medications: Current Medications Sig/Julissa Start time Last Medication Dose Route Stop Time Status Admin Acetaminophen 650 MG .STK-MED ONE 04/24 1823 DC PO 04/24 182 Acetaminophen 325 MG Q6P PRN 04/22 1330 AC 04/24 PO 1825 Acetaminophen 1,000 MG Q6P PRN 04/22 1330 AC IV Albuterol Sulfate 2 PUF Q4P PRN 04/22 1345 AC INH Alprazolam 0.5 MG BID PRN 04/22 1345 AC 04/24 PO 04/29 1344 2244 Aspirin Buffered 81 MG QPM 04/22 2200 AC 04/24 PO 2244 Atorvastatin Calcium 80 MG QPM 04/22 2200 AC 04/24 PO 2245 Bisacodyl 10 MG DAILY PRN 04/22 1800 AC 04/22 GA 2124 Clopidogrel Bisulfate 75 MG DAILY 04/23 1000 AC 04/24 PO 1049 Docusate Sodium 100 MG BID 04/22 2200 AC 04/24 PO 2244 Enoxaparin Sodium 30 MG DAILY 04/22 1316 AC 04/24 SC 1050 [facility] [place] [facility] 04/23 0800 AC 04/23 SC 1351 Folic Acid 1 MG DAILY 04/23 1000 AC 04/24 PO 1049 Insulin Aspart 0 TIDAC 04/22 1700 AC 04/23 SC 1718 Isosorbide 60 MG DAILY 04/23 1000 AC 04/24 Mononitrate PO 1050 Levothyroxine Sodium 0.2 MG AT BEDTIME 04/25 2200 AC PO Levothyroxine Sodium 0.2 MG DAILY AC 04/23 0700 DC 04/24 PO 0629 Magnesium Sulfate 1 GM ONCE ONE 04/24 1915 DC 04/24 Dextrose/Water 100 ML IV 04/24 2314 1930 Melatonin 5 MG AT BEDTIME 04/23 0200 AC 04/24 PO 2245 Metoprolol Tartrate 12.5 MG BID 04/24 1000 AC 04/24 PO 2248 Multivitamins 1 TAB DAILY 04/23 1000 AC 04/24 PO 1056 Omeprazole 40 MG DAILY AC 04/24 1843 AC 04/24 PO 1903 Ondansetron HCl 4 MG Q6P PRN 04/24 0015 AC IV Phosphate 250 MG PC AND AT BEDTIME 04/24 2100 CAN PO 04/25 0901 Phosphate 250 MG PC AND AT BEDTIME 04/24 1300 CAN PO Potassium Chloride 40 MEQ BID 04/24 1000 DC 04/24 PO 04/24 2201 1049 Ramelteon 8 MG AT BEDTIME 04/22 2200 AC 04/24 PO 2245 Sertraline HCl 100 MG DAILY 04/23 1000 AC 04/24 PO 1049 Sevelamer Carbonate 1,600 MG WM 04/25 0800 AC PO Sevelamer Carbonate 1,600 MG WM 04/22 1700 DC 04/24 PO 1219 Sodium Phosphate 15 mMol ONE ONE 04/24 1845 DC 04/24 Sodium Chloride 250 ML IV 04/24 2248 2141 Tamsulosin HCl 0.4 MG DAILY 04/23 1000 AC 04/24 PO 1050 Trazodone HCl 150 MG AT BEDTIME 04/22 2200 AC 04/24 PO 2244 Trimethobenzamide HCl 200 MG Q6P PRN 04/24 0030 AC 04/24 IM 1556 Last 24 Hrs of Lab/Angus Results Last 24 Hrs of Labs/Mics: Laboratory Tests 04/24/17 2100: Troponin I 1.22 *H 04/24/17 1300: Troponin I 1.41 *H 04/24/17 0706: Anion Gap 13, Estimated GFR 24 L, BUN/Creatinine Ratio 3.0 L, Calcium 8.6, Phosphorus 0.8 *L, Magnesium 1.5 L, Troponin I 0.81 *H, CBC w Diff NO MAN DIFF REQ, RBC 3.52 L, MCV 81.3, MCH 26.8 L, RDW 20.0 H, MPV 8.4, Gran % 55.6, Lymphocytes % 35.5, Monocytes % 8.1, Eosinophils % 0.3, Basophils % 0.5, Absolute Granulocytes 1.9, Absolute Lymphocytes 1.2, Absolute Monocytes 0.3, Absolute Eosinophils 0.0, Absolute Basophils 0.0, PUBS MCHC 33.0 Assessment/Plan Assessment: Mr. 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 Agrawal's office for dizziness and hypotension. Assessment and Plan: # Hypotension and dizziness 2/2 orthostatic hypotension/ overmedication Check orthostatics q shift Continue to hold home medications metoprolol, and clonidine Close monitoring of the blood pressure # elevated troponin In the setting of ESRD on HD Patient is asymptomatic with no new EKG changes and negative cardiac biomarkers Likely demand ischemia troponins trended dowbn # HFwrEF EF of 45-50% with akinetic apex. Elevated proBNP at 27,600 Monitor ins and outs Daily weight checks Continue to hold Lasix 40 bid with close monitoring of the blood pressure. #4 End-stage renal disease on hemodialysis Patient is scheduled for dialysis on Tuesday//Tuesday He will b undergoing dialysis in the am. Hold sevelemir, and resume in the am after checking phosphorous levels; as per Dr. Vigil. # Hypertension Holding on metoprolol and clonidine at this time due to low blood pressure. Changed the anti-hypertensives, and furosemide as per the attendings recommnedation. Informed Dr. Benedict, to monitor BP closely while the blood pressure meds were recently changed. # Insulin-dependent diabetes melitis with recent episode of hypoglycemia Daily Accu-Cheks NovoLog sliding scale low-dose. Discharge the pt on low dose insulin sliding scale, and discontinue long acting insulin. # Recent staph coagulase-negative bacteremia with replacement of Bao cath Posttreatment with 13 days of vancomycin, catheter site looks clean and intact Negative TTE/LILIANE for vegetation No symptoms at this time # history of coronary artery disease status post stents Continue aspirin, statin, Plavix, Imdur Continue beta surya once blood pressure more stable -DVT prophylaxis Subcutaneous Lovenox Full code Renal dialysis diet Problem List: 1. Elevated troponin 2. Hypotension 3. ESRD (end stage renal disease) on dialysis Pain Ratin Pain Location: back pain Pain Goal: Pain 4 or less Pain Plan: tylenol prn Tomorrow's Labs & Rationales: no labs necessary. pt is to be discharged. ANMOL MOLINA 04/25/17 1155: Attending MD Review Statement Attending Statement Attending MD Statement: examined this patient, discuss w/resident/PA/WHISTLE PUNK, agreed w/resident/PA/WHISTLE PUNK, discussed with family, reviewed EMR data (avail), discussed with nursing, discussed with case mgmt, reviewed images, amended to note Attending Assessment/Plan: Patient admitted 2/2 hypotension and weakness, clonidine discontinues and lasix held, metoprolol reduced 12.5 bid, BP parameters in systolic 120s, underwent HD without issues, Patient is asymptomatic, afebrile with no complaints and wishes to go home. D/c patient today with close follow up with nephrology and decide about use of diuretics.
[2017-04-25 06:37] VITALS: BP 120/70
--- NOTE | 2017-04-25 07:42 | PN- Diabetes ---
Assessment/Plan Assessment: The patient has had no further vomiting. He is eating okay. The patient is on low-dose NovoLog sliding scale for his diabetes. Blood sugars yesterday were 126 before breakfast, 104 before lunch, 220 at suppertime, and 125 at bedtime. The patient's thyroid tests reveal a TSH of 26.1. Therefore patient's test show evidence of hypothyroidism despite the administration of 200 g of levothyroxin a day. This could be related to sevelemer which can interfere with the absorption of thyroid hormone. We have now changed the timing of his thyroid hormone administration to be at bedtime. Plan: Suggest continue low dose sliding scale NovoLog before meals only. Check postural blood pressures. Continue levothyroxine 200 g at bedtime daily. The patient will need repeat thyroid function tests in 3-4 weeks. Objective Last 24 Hrs of Vital Signs/I&O Vital Signs Date Time Temp Pulse Resp B/P B/P Pulse O2 O2 Flow FiO2 Mean Ox Delivery Rate 04/25 0637 98.7 70 20 120/70 97 Room Air 04/24 2251 98.6 75 20 118/68 100 Room Air 04/24 2248 89 118/68 04/24 2149 98.6 04/24 1825 99.8 04/24 1454 99.1 87 20 142/80 100 Room Air 04/24 1314 99.1 04/24 1050 67 132/70 04/24 1050 67 132/70 04/24 1049 67 132/70 Intake & Output 04/25 0804/25 0000 04/24 1600 Intake Total 320 Output Total 100 300 Balance 220 -300 Intake, IV 120 Intake, Oral 200 Number 1 Bowel Movements Output, Urine 100 300 Vital Signs Date Time Temp Pulse Resp B/P B/P Pulse O2 O2 Flow FiO2 Mean Ox Delivery Rate 04/25 0637 98.7 70 20 120/70 97 Room Air 04/24 2251 98.6 75 20 118/68 100 Room Air 04/24 2248 89 118/68 04/24 2149 98.6 04/24 1825 99.8 04/24 1454 99.1 87 20 142/80 100 Room Air 04/24 1314 99.1 04/24 1050 67 132/70 04/24 1050 67 132/70 04/24 1049 67 132/70 Intake & Output 04/25 0800 04/25 0000 04/24 1600 Intake Total 320 Output Total 100 300 Balance 220 -300 Intake, IV 120 Intake, Oral 200 Number 1 Bowel Movements Output, Urine 100 300 Current Medications: Current Medications Sig/Julissa Start time Last Medication Dose Route Stop Time Status Admin Acetaminophen 650 MG .STK-MED ONE 04/24 1823 DC PO 04/24 1824 Acetaminophen 325 MG Q6P PRN 04/22 1330 04/24 PO 1825 Acetaminophen 1,000 MG Q6P PRN 04/22 1330 IV Albuterol Sulfate 2 PUF Q4P PRN 04/22 1345 AC INH Alprazolam 0.5 MG BID PRN 04/22 1345 AC 04/24 PO 04/29 1344 2244 Aspirin Buffered 81 MG QPM 04/22 2200 AC 04/24 PO 2244 Atorvastatin Calcium 80 MG QPM 04/22 2200 04/24 PO 2245 Bisacodyl 10 MG DAILY PRN 04/22 1800 AC 04/22 MT 2124 Clopidogrel Bisulfate 75 MG DAILY 04/23 1000 AC 04/24 PO 1049 Docusate Sodium 100 MG BID 04/22 2200 04/24 PO 2244 Enoxaparin Sodium 30 MG DAILY 04/22 1316 04/24 SC 1050 Epoetin [place] 8,000 UNIT TuThSa 04/23 0800 04/23 SC 1351 Folic Acid 1 MG DAILY 04/23 1000 04/24 PO 1049 Insulin Aspart 0 TIDAC 04/22 1700 04/23 SC 1718 Isosorbide 60 MG DAILY 04/23 1000 04/24 Mononitrate PO 1050 Levothyroxine Sodium 0.2 MG AT BEDTIME 04/25 2200 PO Levothyroxine Sodium 0.2 MG DAILY AC 04/23 0700 [place] 04/24 PO 0629 Magnesium Sulfate 1 GM ONCE ONE 04/24 1915 W[place] 04/24 Dextrose/Water 100 ML IV 04/24 2314 1930 Melatonin 5 MG AT BEDTIME 04/23 0200 04/24 PO 2245 Metoprolol Tartrate 12.5 MG BID 04/24 1000 04/24 PO 2248 Multivitamins 1 TAB DAILY 04/23 1000 AC 04/24 PO 1056 Omeprazole 40 MG DAILY AC 04/24 1843 AC 04/24 PO 1903 Ondansetron HCl 4 MG Q6P PRN 04/24 0015 AC IV Phosphate 250 MG PC AND AT BEDTIME 04/24 2100 CAN PO 04/25 0901 Phosphate 250 MG PC AND AT BEDTIME 04/24 1300 CAN PO Potassium Chloride 40 MEQ BID 04/24 1000 DC 04/24 PO 04/24 2201 1049 Ramelteon 8 MG AT BEDTIME 04/22 2200 AC 04/24 PO 2245 Sertraline HCl 100 MG DAILY 04/23 1000 AC 04/24 PO 1049 Sevelamer Carbonate 1,600 MG 04/25 0800 AC PO Sevelamer Carbonate 1,600 MG WM 04/22 1700 DC 04/24 PO 1219 Sodium Phosphate 15 mMol ONE ONE 04/24 1845 DC 04/24 Sodium Chloride 250 ML IV 04/24 2248 2141 Tamsulosin HCl 0.4 MG DAILY 04/23 1000 AC 04/24 PO 1050 Trazodone HCl 150 MG AT BEDTIME 04/22 2200 AC 04/24 PO 2244 Trimethobenzamide HCl 200 MG Q6P PRN 04/24 0030 AC 04/24 IM 1556 Findings Pertinent Lab/Angus Results: Laboratory Tests 04/24 04/24 2100 1300 Chemistry Troponin I (<0.11 ng/ml) 1.22 *H 1.41 *H
--- NOTE | 2017-04-25 09:56 | PN- Nephrology ---
Assessment/Plan Assessment: 1. Hypotension. Likely medication related 2. Positive troponins 3. Hypophosphatemia. 4. End-stage renal disease plan on hemodialysis again tomorrow Suggestion: 1. Continue to hold Renvela 2. Would replace the phosphorus by mouth only if phosphorus is less than 1. 3. Phosphorus will be rechecked tomorrow with dialysis Subjective Subjective: Feels okay. No shortness of breath no cough. A little tired of being in the hospital. Objective Vital Signs and I&Os Vital Signs Date Time Temp Pulse Resp B/P B/P Pulse O2 O2 Flow FiO2 Mean Ox Delivery Rate 04/25 0637 98.7 70 20 120/70 97 Room Air 04/24 2251 98.6 75 20 118/68 100 Room Air 04/24 2248 89 118/68 04/24 2149 98.6 04/24 1825 99.8 04/24 1454 99.1 87 20 142/80 100 Room Air 04/24 1314 99.1 04/24 1050 67 132/70 04/24 1050 67 132/70 04/24 1049 67 132/70 Intake & Output 04/25 1600 04/25 0400 04/24 1600 04/24 0400 04/23 1600 04/23 0400 Intake Total 100 320 200 400 570 240 Output Total 100 1000 1200 350 Balance 100 220 -800 400 -630 -110 Intake, IV 120 0 Intake, Oral 100 200 200 400 570 240 Number 1 1 1 Bowel Movements Output, 1000 Dialysate Output, 700 Emesis Output, Urine 100 300 200 350 Patient 192 lb 195 lb 189 lb Weight Weight Chair scale Standing Scale Standing Scale Measurement Method Physical Exam Head: atraumatic, normal appearance Ears, Nose, Throat: normal pharynx, normal ENT inspection Neck: normal inspection Respiratory: normal breath sounds, chest non-tender, lungs clear Cardiovascular: regular rate/rhythm Abdomen: normal bowel sounds, soft, no organomegaly Back: normal inspection, normal range of motion Extremities: normal inspection Neurologic/Psychiatric: no motor/sensory deficits Current Medications: Current Medications Sig/Julissa Start time Last Medication Dose Route Stop Time Status Admin Acetaminophen 650 MG .STK-MED ONE 04/24 182 DC PO 04/24 182 Acetaminophen 325 MG Q6P PRN 04/22 1330 AC 04/24 PO 1825 Acetaminophen 1,000 MG Q6P PRN 04/22 1330 AC IV Albuterol Sulfate 2 PUF Q4P PRN 04/22 1345 AC INH Alprazolam 0.5 MG BID PRN 04/22 1345 AC 04/24 PO 04/29 1344 2244 Aspirin Buffered 81 MG QPM 04/22 2200 AC 04/24 PO 2244 Atorvastatin Calcium 80 MG QPM 04/22 2200 AC 04/24 PO 2245 Bisacodyl 10 MG DAILY PRN 04/22 1800 AC 04/22 LA 2124 Clopidogrel Bisulfate 75 MG DAILY 04/23 1000 AC 04/25 PO 1127 Docusate Sodium 100 MG BID 04/22 2200 AC 04/25 PO 1126 Enoxaparin Sodium 30 MG DAILY 04/22 1316 AC 04/25 SC 1127 [facility] [place] [facility] AC 04/23 SC 1351 Folic Acid 1 MG DAILY 04/23 1000 AC 04/25 PO 1126 Insulin Aspart 0 TIDAC 04/22 1700 AC 04/23 SC 1718 Isosorbide 60 MG DAILY 04/23 1000 AC 04/25 Mononitrate PO 1126 Levothyroxine Sodium 0.2 MG AT BEDTIME 04/25 2200 AC PO Levothyroxine Sodium 0.2 MG DAILY AC 04/23 0700 DC 04/24 PO 0629 Magnesium Sulfate 1 GM ONCE ONE 04/24 1915 DC 04/24 Dextrose/Water 100 ML IV 04/24 2314 1930 Melatonin 5 MG AT BEDTIME 04/23 0200 AC 04/24 PO 2245 Metoprolol Tartrate 12.5 MG BID 04/24 1000 AC 04/25 PO 1126 Multivitamins 1 TAB DAILY 04/23 1000 AC 04/25 PO 1126 Omeprazole 40 MG DAILY AC 04/24 1843 AC 04/25 PO 0700 Ondansetron HCl 4 MG Q6P PRN 04/24 0015 AC IV Phosphate 250 MG PC AND AT BEDTIME 04/24 2100 CAN PO 04/25 0901 Potassium Chloride 40 MEQ ONCE ONE 04/25 1045 DC 04/25 PO 04/25 1046 1128 Potassium Chloride 40 MEQ BID 04/24 1000 DC 04/24 PO 04/24 2201 1049 Ramelteon 8 MG AT BEDTIME 04/22 2200 AC 04/24 PO 2245 Sertraline HCl 100 MG DAILY 04/23 1000 AC 04/25 PO 1127 Sevelamer Carbonate 1,600 MG WM 04/25 0800 AC PO Sevelamer Carbonate 1,600 MG WM 04/22 1700 DC 04/24 PO 1219 Sodium Phosphate 15 mMol ONE ONE 04/24 1845 DC 04/24 Sodium Chloride 250 ML IV 04/248 2141 Tamsulosin HCl 0.4 MG DAILY 04/23 1000 AC 04/25 PO 1126 Trazodone HCl 150 MG AT BEDTIME 04/22 2200 AC 04/24 PO 2244 Trimethobenzamide HCl 200 MG Q6P PRN 04/24 0030 AC 04/24 IM 1556 Results Pertinent Lab Results: Laboratory Tests 04/25 04/25 04/24 04/24 0910 0000 2100 1300 Chemistry Phosphorus Cancelled Troponin I (<0.11 ng/ml) 1.22 *H 1.41 *H Hematology CBC w Diff Pending WBC Pending RBC Pending Hgb Pending Hct Pending MCV Pending MCH Pending RDW Pending Plt Count Pending MPV Pending PUBS MCHC Pending 04/24 04/23 0706 0948 Chemistry Sodium (137 - 145 mmol/L) 133 L Potassium (3.5 - 5.1 mmol/L) 3.3 L Chloride (98 - 107 mmol/L) 98 Carbon Dioxide (22 - 30 mmol/L) 21 L Anion Gap (5 - 16) 13 BUN (9 - 20 mg/dL) 8 L Creatinine (0.7 - 1.2 mg/dL) 2.7 H Estimated GFR (>60 ml/min) 24 L BUN/Creatinine Ratio (7 - 25 %) 3.0 L Calcium (8.4 - 10.2 mg/dL) 8.6 Phosphorus (2.5 - 4.5 mg/dL) 0.8 *L Magnesium (1.6 - 2.3 mg/dL) 1.5 L Troponin I (<0.11 ng/ml) 0.81 *H Hematology CBC w Diff NO MAN DIFF REQ WBC (4.8 - 10.8 /CUMM) 3.3 L RBC (4.70 - 6.10 /CUMM) 3.52 L Hgb (14.0 - 18.0 G/DL) 9.5 L Hct (42 - 52 %) 28.7 L MCV (80.0 - 94.0 FL) 81.3 MCH (27.0 - 31.0 PG) 26.8 L RDW (11.5 - 14.5 %) 20.0 H Plt Count (130 - 400 /CUMM) 148 MPV (7.4 - 10.4 FL) 8.4 Gran % (42.2 - 75.2 %) 55.6 Lymphocytes % (20.5 - 51.1 %) 35.5 Monocytes % (1.7 - 9.3 %) 8.1 Eosinophils % (0 - 5 %) 0.3 Basophils % (0.0 - 2.0 %) 0.5 Absolute Granulocytes (1.4 - 6.5 /CUMM) 1.9 Absolute Lymphocytes (1.2 - 3.4 /CUMM) 1.2 Absolute Monocytes (0.10 - 0.60 /CUMM) 0.3 Absolute Eosinophils (0.0 - 0.7 /CUMM) 0.0 Absolute Basophils (0.0 - 0.2 /CUMM) 0.0 PUBS MCHC (33.0 - 37.0 G/DL) 33.0 Serology Hep Bs Antibody Cancelled 04/23 04/22 04/22 0645 7450 1710 Chemistry Sodium (137 - 145 mmol/L) 135 L Potassium (3.5 - 5.1 mmol/L) 3.0 L Chloride (98 - 107 mmol/L) 100 Carbon Dioxide (22 - 30 mmol/L) 22 Anion Gap (5 - 16) 13 BUN (9 - 20 mg/dL) 15 Creatinine (0.7 - 1.2 mg/dL) 3.6 H Estimated GFR (>60 ml/min) 17 L BUN/Creatinine Ratio (7 - 25 %) 4.2 L Troponin I (<0.11 ng/ml) 0.37 *H 0.48 *H TSH (0.270 - 4.200 uIU/mL) 26.100 H Thyroxine (T4) (4.5 - 10.9 ug/dL) 3.5 L Hematology CBC w Diff NO MAN DIFF REQ WBC (4.8 - 10.8 /CUMM) 2.9 L RBC (4.70 - 6.10 /CUMM) 3.45 L Hgb (14.0 - 18.0 G/DL) 9.4 L Hct (42 - 52 %) 28.0 L MCV (80.0 - 94.0 FL) 81.4 MCH (27.0 - 31.0 PG) 27.4 RDW (11.5 - 14.5 %) 18.0 H Plt Count (130 - 400 /CUMM) 157 MPV (7.4 - 10.4 FL) 8.2 Gran % (42.2 - 75.2 %) 33.3 L Lymphocytes % (20.5 - 51.1 %) 50.7 Monocytes % (1.7 - 9.3 %) 12.6 H Eosinophils % (0 - 5 %) 2.2 Basophils % (0.0 - 2.0 %) 1.2 Absolute Granulocytes (1.4 - 6.5 /CUMM) 1.0 L Absolute Lymphocytes (1.2 - 3.4 /CUMM) 1.5 Absolute Monocytes (0.10 - 0.60 /CUMM) 0.4 Absolute Eosinophils (0.0 - 0.7 /CUMM) 0.1 Absolute Basophils (0.0 - 0.2 /CUMM) 0 PUBS MCHC (33.0 - 37.0 G/DL) 33.7 Serology Hep Bs Antibody (NONREACTIVE) NONREACTIVE 04/22 1050 Chemistry Sodium (137 - 145 mmol/L) 138 Potassium (3.5 - 5.1 mmol/L) 3.6 Chloride (98 - 107 mmol/L) 100 Carbon Dioxide (22 - 30 mmol/L) 23 Anion Gap (5 - 16) 15 BUN (9 - 20 mg/dL) 11 Creatinine (0.7 - 1.2 mg/dL) 2.9 H Estimated GFR (>60 ml/min) 22 L BUN/Creatinine Ratio (7 - 25 %) 3.8 L Glucose (65 - 99 mg/dL) 142 H Calcium (8.4 - 10.2 mg/dL) 8.0 L Total Bilirubin (0.2 - 1.3 mg/dL) 1.4 H AST (17 - 59 U/L) 27 ALT (21 - 72 U/L) 31 Alkaline Phosphatase (< 127 U/L) 119 Troponin I (<0.11 ng/ml) 0.67 *H Acd-R-Txohstvhtbm Pept (<125 pg/mL) 33838 H Total Protein (6.3 - 8.2 g/dL) 6.6 Albumin (3.5 - 5.0 g/dL) 3.8 Globulin (1.9 - 4.2 gm/dL) 2.8 Albumin/Globulin Ratio (1.1 - 2.2 %) 1.4 Coagulation D-Dimer High Sensitivty (0 - 243 ng/ml) 496 H Hematology CBC w Diff NO MAN DIFF REQ WBC (4.8 - 10.8 /CUMM) 3.6 L RBC (4.70 - 6.10 /CUMM) 3.71 L Hgb (14.0 - 18.0 G/DL) 10.0 L Hct (42 - 52 %) 30.3 L MCV (80.0 - 94.0 FL) 81.6 MCH (27.0 - 31.0 PG) 27.0 RDW (11.5 - 14.5 %) 17.8 H Plt Count (130 - 400 /CUMM) 192 MPV (7.4 - 10.4 FL) 7.8 Gran % (42.2 - 75.2 %) 49.9 Lymphocytes % (20.5 - 51.1 %) 39.3 Monocytes % (1.7 - 9.3 %) 9.2 Eosinophils % (0 - 5 %) 0.8 Basophils % (0.0 - 2.0 %) 0.8 Absolute Granulocytes (1.4 - 6.5 /CUMM) 1.8 Absolute Lymphocytes (1.2 - 3.4 /CUMM) 1.4 Absolute Monocytes (0.10 - 0.60 /CUMM) 0.3 Absolute Eosinophils (0.0 - 0.7 /CUMM) 0 Absolute Basophils (0.0 - 0.2 /CUMM) 0 PUBS MCHC (33.0 - 37.0 G/DL) 33.1
[2017-04-25 09:57] LABS: ABSOLUTE BASOPHIL COUNT 0 /CUMM (0.0-0.2); ABSOLUTE EOSINOPHIL COUNT 0.1 /CUMM (0.0-0.7); ABSOLUTE GRANULOCYTE CT 0.9 /CUMM (1.4-6.5); ABSOLUTE LYMPH COUNT 1.1 /CUMM (1.2-3.4); ABSOLUTE MONOCYTE COUNT 0.2 /CUMM (0.10-0.60); BASOPHIL % 1.3 % (0.0-2.0); EOSINOPHIL % 2.9 % (0-5); GRANULOCYTE % 39.5 % (42.2-75.2); HEMATOCRIT 27.4 % (42-52); MEAN CORPUSCULAR HGB 27.1 PG (27.0-31.0); MEAN PLATELET VOLUME 8.3 FL (7.4-10.4); PLATELET COUNT 146 /CUMM (130-400); RBC DISTRIBUTION WIDTH 20.5 % (11.5-14.5); RED BLOOD CELL CT 3.34 /CUMM (4.70-6.10); WHITE BLOOD CELL COUNT 2.4 /CUMM (4.8-10.8)
--- NOTE | 2017-04-25 10:46 | Patient Discharge Instructions ---
Discharge Instructions General Discharge Information You were seen/treated for: Low blood pressure Elevated cardiac enzymes Watch for these problems: #1 shortness of breath, chest pain #2 elevated cardiac enzymes Special Instructions: #1 please follow up with her primary care provider within the week of discharge. 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 #3 please follow up with her red mud thickener operator within a week of discharge. #4 please follow up with her media relations associate within 1-2 weeks of discharge. Please discuss with him about elevated TSH level that was found while urine the hospital. Please repeat TSH level on 05/16/2017. Diet Continue normal diet: No Recommended Diet: Renal Dialysis Acute Coronary Syndrome Inclusion Criteria At DC or during hospital stay patient has or had the following: ACS DIAGNOSIS No Discharge Core Measures Meds if any: Prescribed or Continued at Discharge Meds if any: NOT Prescribed or Continued at Discharge Congestive Heart Failure Inclusion Criteria At DC or during hospital stay patient has or had the following: CHF DIAGNOSIS No Discharge Core Measures Meds if any: Prescribed or Continued at Discharge Meds if any: NOT Prescribed or Continued at Discharge Cerebrovascular accident Inclusion Criteria At DC or during hospital stay patient has or had the following: CVA/TIA Diagnosis No Discharge Core Measures Meds if any: Prescribed or Continued at Discharge Meds if any: NOT Prescribed or Continued at Discharge Venous thromboembolism Inclusion Criteria VTE Diagnosis No VTE Type NONE VTE Confirmed by (Test) NONE Discharge Core Measures - Per Current guidelines, there needs to be overlap - treatment for the first 5 days of Warfarin therapy. - If discharged on Warfarin prior to 5 days of - overlap therapy, the patient will need to be - assessed for post discharge needs including - *Post discharge parental anticoagulation - *Warfarin and/or parental anticoagulation education - *Follow up date to check INR post discharge At least 5 days overlap therapy as Inpatient No Meds if any: Prescribed or Continued at Discharge Note: Overlap Therapy is Warfarin and Anticoagulant Meds if any: NOT Prescribed or Continued at Discharge
[2017-04-25] MEDS ORDERED: NOVOLOG100 UNIT/1 SC ×4 (11:19→11:54)
[2017-04-25 11:26] VITALS: BP 120/64
[2017-04-25] MEDS ORDERED: METOPROLOL TART25 M1 PO (13:36)
--- NOTE | 2017-04-25 15:13 | PN- Cardiology ---
Subjective Subjective: The patient reports that he is feeling well. No chest pain. No shortness of breath. No palpitations. No lightheadedness or dizziness. No diaphoresis. Objective Vital Signs and I&Os Vital Signs Date Time Temp Pulse Resp B/P B/P Pulse O2 O2 Flow FiO2 Mean Ox Delivery Rate 04/25 1126 64 120/64 04/25 0637 98.7 70 20 120/70 97 Room Air 04/24 2251 98.6 75 20 118/68 100 Room Air 04/24 2248 89 118/68 04/24 2149 98.6 04/24 1825 99.8 Intake & Output 04/25 1600 04/25 0800 04/25 0000 04/24 1600 04/24 0800 04/24 0000 Intake Total 480 100 320 200 400 Output Total 300 100 200 800 Balance 180 100 220 -200 -600 400 Intake, IV 120 0 Intake, Oral 480 100 200 200 400 Number 2 1 1 Bowel Movements Output, 700 Emesis Output, Urine 300 100 200 100 Patient 192 lb 195 lb Weight Weight Chair scale Standing Scale Measurement Method Physical Exam: General: no apparent distress. Alert. Eyes: No obvious scleral icterus. HEENT: No jugular venous distention or abnormal jugular venous pulsations. Cardiovascular: Normal intensity S1/S2. Regular Respiratory: Lungs clear to auscultation bilaterally. Abdomen: Soft, nontender with no guarding or rebound tenderness. Musculoskeletal: No clubbing or cyanosis noted, no edema Skin: Warm Neurologic: No gross focal deficits noted. Current Medications: Current Medications Sig/Julissa Start time Last Medication Dose Route Stop Time Status Admin Acetaminophen 650 MG .STK-MED ONE 04/24 1823 DC PO 04/24 1824 Acetaminophen 325 MG Q6P PRN 04/22 1330 DCD 04/24 PO 1825 Acetaminophen 1,000 MG Q6P PRN 04/22 1330 DCD IV Albuterol Sulfate 2 PUF Q4P PRN 04/22 1345 DCD INH Alprazolam 0.5 MG BID PRN 04/22 1345 DCD 04/24 PO 04/29 1344 2244 Aspirin Buffered 81 MG QPM 07/14 2200 DCD 04/24 PO 2244 Atorvastatin Calcium 80 MG QPM 07 2200 DCD 04/24 PO 2245 Bisacodyl 10 MG DAILY PRN 04/22 1800 DCD 04/22 SD 2124 Clopidogrel Bisulfate 75 MG DAILY 04/23 1000 DCD 04/25 PO 1127 Docusate Sodium 100 MG BID 04/22 2200 DCD 04/25 PO 1126 Enoxaparin Sodium 30 MG DAILY 04/22 1316 DCD 04/25 SC 1127 Epoetin [place] 8,000 UNIT [facility] 04/23 0800 DCD 04/23 SC 1351 Folic Acid 1 MG DAILY 04/23 1000 DCD 04/25 PO 1126 Insulin Aspart 0 TIDAC 04/22 1700 DCD 04/23 SC 1718 Isosorbide 60 MG DAILY 04/23 1000 DCD 04/25 Mononitrate PO 1126 Levothyroxine Sodium 0.2 MG AT BEDTIME 04/25 2200 DCD PO Levothyroxine Sodium 0.2 MG DAILY AC 04/23 0700 DC 04/24 PO 0629 Magnesium Sulfate 1 GM ONCE ONE 04/24 1915 DC 04/24 Dextrose/Water 100 ML IV 04/24 2314 1930 Melatonin 5 MG AT BEDTIME 04/23 0200 DCD 04/24 PO 2245 Metoprolol Tartrate 12.5 MG BID 04/24 1000 DCD 04/25 PO 1126 Multivitamins 1 TAB DAILY 04/23 1000 DCD 04/25 PO 1126 Omeprazole 40 MG DAILY AC 04/24 1843 DCD 04/25 PO 0700 Ondansetron HCl 4 MG Q6P PRN 04/24 0015 DCD IV Phosphate 250 MG PC AND AT BEDTIME 04/24 2100 CAN PO 04/25 0901 Potassium Chloride 40 MEQ ONCE ONE 04/25 1045 DC 04/25 PO 04/25 1046 1128 Potassium Chloride 40 MEQ BID 04/24 1000 DC 04/24 PO 04/24 2201 1049 Ramelteon 8 MG AT BEDTIME 04/22 2200 DCD 04/24 PO 2245 Sertraline HCl 100 MG DAILY 04/23 1000 DCD 04/25 PO 1127 Sevelamer Carbonate 1,600 MG WM 04/25 0800 DCD 04/25 PO 1244 Sevelamer Carbonate 1,600 MG WM 04/22 1700 DC 04/24 PO 1219 Sodium Phosphate 15 mMol ONE ONE 04/24 1845 DC 04/24 Sodium Chloride 250 ML IV 04/24 2248 2141 Tamsulosin HCl 0.4 MG DAILY 07/15 1000 DCD 04/25 PO 1126 Trazodone HCl 150 MG AT BEDTIME 04/22 2200 DCD 04/24 PO 2244 Trimethobenzamide HCl 200 MG Q6P PRN 04/24 0030 DCD 04/24 IM 1556 Results Last 48 Hrs of Labs/Mics: Laboratory Tests 04/25/17 0910: Anion Gap 10, Estimated GFR 20 L, BUN/Creatinine Ratio 3.9 L, Phosphorus 3.4, Magnesium 1.8, CBC w Diff NO MAN DIFF REQ, RBC 3.34 L, MCV 82.0, MCH 27.1, RDW 20.5 H, MPV 8.3, Gran % 39.5 L, Lymphocytes % 48.9, Monocytes % 7.4, Eosinophils % 2.9, Basophils % 1.3, Absolute Granulocytes 0.9 L, Absolute Lymphocytes 1.1 L, Absolute Monocytes 0.2, Absolute Eosinophils 0.1, Absolute Basophils 0, PUBS MCHC 33.0 04/25/17 0000: Phosphorus Cancelled 04/24/17 2100: Troponin I 1.22 *H 04/24/17 1300: Troponin I 1.41 *H 04/24/17 0706: Anion Gap 13, Estimated GFR 24 L, BUN/Creatinine Ratio 3.0 L, Calcium 8.6, Phosphorus 0.8 *L, Magnesium 1.5 L, Troponin I 0.81 *H, CBC w Diff NO MAN DIFF REQ, RBC 3.52 L, MCV 81.3, MCH 26.8 L, RDW 20.0 H, MPV 8.4, Gran % 55.6, Lymphocytes % 35.5, Monocytes % 8.1, Eosinophils % 0.3, Basophils % 0.5, Absolute Granulocytes 1.9, Absolute Lymphocytes 1.2, Absolute Monocytes 0.3, Absolute Eosinophils 0.0, Absolute Basophils 0.0, PUBS MCHC 33.0 Assessment/Plan Assessment/Plan 1. Hypotension, improved 2. Mild troponin elevation, likely secondary to demand ischemia 3. End-stage renal disease on hemodialysis 4. History of coronary artery disease 5. Recent coag-negative staph bacteremia plan: * Continue current medications. * Follow up with Dr. Lee as an outpatient. Continue telemetry? No
--- NOTE | 2017-04-25 16:07 | Discharge Summary ---
Visit Information Visit Dates Admission Date: 04/22/17 Hospital Course Course Attending Physician: JESSE ELDRIDGE,ANMOL Primary Care Physician: CARLITA PAGE DO Allergies: Coded Allergies: Iodinated Contrast- Oral and IV Dye (PER PT STATES HIS KIDNEYS ARE SHOT HE IS ON DIALYSIS 03/27/17) morphine (Mild, LOOPY 01/18/17) hydromorphone (DEPRESSED RESPIRATIONS 01/18/17) Discharge Instructions General Discharge Information Code Status: Full Code Medications at Discharge Discharge Medications: Stop taking the following medications: Metoprolol Tartrate (Metoprolol Tartrate) 100 MG TABLET ORAL DAILY Qty = 14 Clonidine HCl (Clonidine HCl) 0.1 MG TABLET ORAL TWICE DAILY Qty = 60 Sevelamer Carbonate (Renvela) 800 MG TABLET ORAL WITH MEALS Furosemide (Lasix) 40 MG TABLET ORAL DAILY Qty = 30 Insulin Glargine,Hum.rec.anlog (Lantus Solostar) 100 UNIT/ML (3 ML) INSULN.PEN Inject into fatty tissue TWICE DAILY Continue taking these medications: Liraglutide (Victoza 3-Zeus) 0.6 MG/0.1 ML (18 MG/3 ML) PEN.INJCTR 1.8 Milligram Inject into fatty tissue Every night Comments: NOT GIVEN IN HOSPITAL Trazodone HCl (Trazodone HCl) 150 MG TABLET 1 Tablet ORAL Every night Qty = 35 Comments: Last Taken: 04/25/17 Time: 10:30 PM Tamsulosin HCl (Tamsulosin HCl) 0.4 MG CAP.ER.24H 1 Capsule ORAL DAILY Qty = 30 Comments: Last Taken: 04/25/17 Time: 11:30 AM Folic Acid (Folic Acid) 1 MG TABLET 1 Tablet ORAL DAILY Qty = 30 Comments: Last Taken: 04/25/17 Time: 11:30 AM Aspirin (Ecotrin*) 81 MG TABLET.DR 1 Tablet ORAL Every night Comments: Last Taken: 04/24/17 Time 10:30 PM Atorvastatin Calcium (Lipitor) 80 MG TABLET 1 Tablet ORAL Every night Comments: Last Taken: 04/24/17 Time: 10:30 PM Alprazolam (Xanax) 0.5 MG TABLET 1 Tablet ORAL TWICE DAILY as needed for ANXIETY Qty = 15 Comments: Last Taken: 04/24/17 Time: 10:45 PM Budesonide/Formoterol Fumarate (Symbicort 160-4.5 Mcg Inhaler) 160 MCG-4.5 MCG/ ACTUATION HFA.AER.AD 2 Puff Inhale through mouth TWICE DAILY Qty = 1 Instructions: Rinse your mouth after using inhaler. Comments: NOT GIVEN WHILE IN HOSPITAL Isosorbide Mononitrate (Isosorbide Mononitrate ER) 60 MG TAB.ER.24H 1 Tablet ORAL DAILY Qty = 30 Comments: Last Taken: 04/25/17 Time: 11:30 AM Levothyroxine Sodium (Synthroid) 200 MCG TABLET 0.2 Milligram ORAL DAILY BEFORE BREAKFAST Days = 28 Comments: Last Taken: 04/25/17 Time: 6:30 AM Ramelteon (Rozerem) 8 MG TABLET 1 Tablet ORAL AT BEDTIME Qty = 30 Comments: Last Taken: 04/24/17 Time: 10:45 PM Sertraline HCl (Zoloft) 100 MG TABLET 1 Tablet ORAL DAILY Comments: Last Taken: 04/25/17 Time: 11:30 AM Clopidogrel Bisulfate (Plavix) 75 MG TABLET 75 Milligram ORAL DAILY Qty = 30 Comments: Last Taken:04/25/17 Time: 11:30 AM Albuterol Sulfate (Proair Hfa) 90 MCG HFA.AER.AD 2 Puff Inhale through mouth Q4H as needed for SOB Comments: NOT GIVEN IN HOSPITAL Sennosides/Docusate Sodium (Senna S Tablet) 8.6 MG-50 MG TABLET 2 Tablet ORAL Every night Comments: NOT GIVEN IN HOSPITAL Nut.tx.impaired Renal Fxn,Soy (Nepro Carb Steady) (Unknown Strength) LIQUID 120 Milliliters ORAL TWICE DAILY Comments: NOT GIVEN IN HOSPITAL Start taking the following new medications: Insulin Aspart (Novolog) 100 UNIT/ML CARTRIDGE 0 Inject into fatty tissue 3 TIMES DAILY BEFORE MEALS Qty = 2 Refills = 2 Instructions: BEFORE MEALS... Blood Insulin Sugar Units <80 0 81-100 0 101-200 0 201-250 2 251-300 3 301-350 4 351-400 5 >400 Call Doctor Comments: Last Taken: 04/23/17 Time: 5:15 PM Metoprolol Tartrate (Metoprolol Tartrate) 25 MG TABLET 0.5 Tablet ORAL TWICE DAILY Qty = 60 Refills = 2
[2017-04-26] MEDS ORDERED: AMLODIPINE BESY10 M1 PO (10:47)
[2017-04-26] MEDS ORDERED: CLONIDINE HCL0.1 MG PO (10:49)
[2017-04-26] MEDS ORDERED: CYCLOBENZAPRINE5 M2 PO (10:49)
[2017-04-26] MEDS ORDERED: DIAZEPAM5 M1 PO (10:50)
[2017-04-26] MEDS ORDERED: FUROSEMIDE80 M1 PO (10:51)
[2017-04-26] MEDS ORDERED: FUROSEMIDE40 M1 PO (10:53)
[2017-04-26] MEDS ORDERED: LANTUS SOL100 UNIT/1 SC ×2 (10:54)
[2017-04-26] MEDS ORDERED: LOSARTAN-HCTZ1 EAC2 PO (10:55)
[2017-04-26] MEDS ORDERED: LEVOTHYROXINE137 MCG PO (10:57)
[2017-04-26] MEDS ORDERED: RENVELA800 M1 PO (10:58)
[2017-04-26] MEDS ORDERED: BRILINTA90 M1 PO (10:59)
== END 2017-04-25 13:55 | disposition home health service (06) | DRG 312 ==
LOC: ERH 09:26 → ERHI 12:51 → 1NO 12:51 → ENRESERV 13:46 → ENTRNSPT 14:26 → EDTRNSPT 14:35 → EDTRNSPTSTS 14:35 → 1NO 14:47 → CMPTRNSPT 14:58 → 1NO 20:05 → ENPENDDIS 04-25 12:28 → 1NO 04-25 13:55
PROVIDERS: Emergency Medicine; Student in an Organized Health Care Education/Training Program; ADMIT Internal Medicine
PROC: 5A1D60Z (ICD-10-PCS; principal; 2017-04-23)
DX: I95.1 Orthostatic hypotension (principal); I13.2 Hypertensive heart and chronic kidney disease with heart failure and with stage 5 chronic kidney disease, or end stage renal disease; N18.6 End stage renal disease; I24.8 Other forms of acute ischemic heart disease; E11.22 Type 2 diabetes mellitus with diabetic chronic kidney disease; E11.51 Type 2 diabetes mellitus with diabetic peripheral angiopathy without gangrene; I50.32 Chronic diastolic (congestive) heart failure; E11.65 Type 2 diabetes mellitus with hyperglycemia; Z79.4 Long term (current) use of insulin; Z99.2 Dependence on renal dialysis; E83.51 Hypocalcemia; E87.6 Hypokalemia; E83.39 Other disorders of phosphorus metabolism; T46.5X5A Adverse effect of other antihypertensive drugs, initial encounter; I25.10 Atherosclerotic heart disease of native coronary artery without angina pectoris; M54.9 Dorsalgia, unspecified; G89.29 Other chronic pain; Z98.1 Arthrodesis status; Z95.5 Presence of coronary angioplasty implant and graft; Z87.891 Personal history of nicotine dependence; D64.9 Anemia, unspecified
CPT/HCPCS: 1NP; 36415; 74176; 82436; 93005; 93010; J0131; J0885; J1650; J2405; J3101; J3250; J3490; J7040

== ENCOUNTER 2017-04-26 10:39 | Inpatient (IN) | payer OTHER, MEDICARE ==
[~2017-04-26] VITALS: Ht 177.8 cm; Wt 87.6 kg
[~2017-04-26 10:39] MED LIST changes: +METOPROLOL TART25 M1 PO; +NOVOLOG100 UNIT/1 SC
[2017-04-26] MEDS ORDERED: AMLODIPINE BESY10 M1 PO (10:47)
[2017-04-26] MEDS ORDERED: CLONIDINE HCL0.1 MG PO (10:49)
[2017-04-26] MEDS ORDERED: CYCLOBENZAPRINE5 M2 PO (10:49)
--- NOTE | 2017-04-26 10:49 | ED GENERAL ADULT ---
History of Present Illness General Chief Complaint: Nausea, Vomiting, Diarrhea Stated Complaint: N/V Source: patient Exam Limitations: no limitations Vital Signs & Intake/Output Vital Signs & Intake/Output Vital Signs Date Time Temp Pulse Resp B/P B/P Pulse O2 O2 Flow FiO2 Mean Ox Delivery Rate 04/26 1905 106 134/80 04/26 1721 97.8 106 16 134/80 100 Room Air 04/26 1538 94 Room Air 04/26 1447 98.2 110 26 177/104 97 Room Air 04/26 1308 98.0 108 20 182/106 96 Nasal 3.0L Cannula 04/26 1200 100 04/26 1135 100 180/100 04/26 1047 100 Room Air 04/26 1041 97.0 105 18 178/93 100 Room Air Allergies Coded Allergies: Iodinated Contrast- Oral and IV Dye (PER PT STATES HIS KIDNEYS ARE SHOT HE IS ON DIALYSIS 03/27/17) morphine (Mild, LOOPY 01/18/17) hydromorphone (DEPRESSED RESPIRATIONS 01/18/17) Reconcile Medications Alprazolam (Xanax) 0.5 MG TABLET 1 TAB PO BID PRN ANXIETY Amlodipine Besylate 10 MG TABLET 1 TAB PO DAILY HEART (Reported) Aspirin (Ecotrin*) 325 MG TABLET.DR 1 TAB PO QPM CAD (Reported) Atorvastatin Calcium (Lipitor) 80 MG TABLET 1 TAB PO QPM CHOLESTEROL ( Reported) Budesonide/Formoterol Fumarate (Symbicort 160-4.5 Mcg Inhaler) 160 MCG-4.5 MCG/ ACTUATION HFA.AER.AD 2 PUF INH BID COPD Rinse your mouth after using inhaler. Clonidine HCl 0.1 MG TABLET 1 TAB PO BID UNKNOWN (Reported) Clopidogrel Bisulfate (Plavix) 75 MG TABLET 75 MG PO DAILY ANTIPLATELET Cyclobenzaprine HCl 5 MG TABLET 1 TAB PO TID PAIN (Reported) Diazepam 5 MG TABLET 1 TAB PO TIDPRN PRN SPASMS (Reported) Folic Acid 1 MG TABLET 1 TAB PO DAILY SUPPLEMENT (Reported) Furosemide 80 MG TABLET 1 TAB PO DAILY WATER RETENTION (Reported) Furosemide 40 MG TABLET 1 TAB PO BID WATER RETENTION (Reported) Insulin Aspart (Novolog) 100 UNIT/ML CARTRIDGE 0 SC TIDAC DIABETES BEFORE MEALS... Blood Insulin Sugar Units <80 0 81-100 0 101-200 0 201-250 2 251-300 3 301-350 4 351-400 5 >400 Call Doctor Insulin Glargine,Hum.rec.anlog (Lantus Solostar) 100 UNIT/ML (3 ML) INSULN.PEN 62 UNIT SC QPM DIABETES (Reported) Insulin Glargine,Hum.rec.anlog (Lantus Solostar) 100 UNIT/ML (3 ML) INSULN.PEN 5 UNIT SC BID DIABETES (Reported) Isosorbide Mononitrate (Isosorbide Mononitrate ER) 60 MG TAB.ER.24H 1 TAB PO DAILY CAD Levothyroxine Sodium 137 MCG TABLET 2 TAB PO DAILY AC THYROID (Reported) Liraglutide (Victoza 3-Zeus) 0.6 MG/0.1 ML (18 MG/3 ML) PEN.INJCTR 1.8 MG SC QPM DIABETES (Reported) Losartan/Hydrochlorothiazide (Losartan-Hctz 100-25 MG Tab) 100 MG-25 MG TABLET 1 TAB PO DAILY HEART (Reported) Metoprolol Tartrate 25 MG TABLET 0.5 TAB PO BID high blood pressure Nut.tx.impaired Renal Fxn,Soy (Nepro Carb Steady) (Unknown Strength) LIQUID 120 ML PO BID UNKNOWN (Reported) Ramelteon (Rozerem) 8 MG TABLET 1 TAB PO AT BEDTIME SLEEP HELP Sennosides/Docusate Sodium (Senna S Tablet) 8.6 MG-50 MG TABLET 2 TAB PO QPM GI (Reported) Sertraline HCl (Zoloft) 100 MG TABLET 1 TAB PO DAILY ANXIETY (Reported) Sevelamer Carbonate (Renvela) 800 MG TABLET 2 TAB PO TIDAC ERSD (Reported) Tamsulosin HCl 0.4 MG CAP.ER.24H 1 CAP PO DAILY PROSTATE (Reported) Ticagrelor (Brilinta) 90 MG TABLET 1 TAB PO BID BLOOD THINNER (Reported) Trazodone HCl 150 MG TABLET 1 TAB PO QPM SLEEP (Reported) Triage Nurses Notes Reviewed? yes Onset: Abrupt Duration: hour(s): Timing: recent history HPI: 04/26/17 12 PM 67-year-old man presents to the emergency department for vomiting. The patient was just discharged earlier today and now he presents vomiting up bilious material. He denies abdominal pain or other complaints. He has a past medical history of renal failure. He has a dialysis catheter in his right anterior chest. He is for dialysis today. Onset of the symptoms was abrupt. Duration of the symptoms was just the past several hours. The severity was significant as his symptoms required him to come to the emergency department for care. Past History Travel History Traveled to [place] past 21 day No Medical History Any Pertinent Medical History? see below for history Neurological: NONE EENT: NONE Cardiovascular: CAD, hypertension, hyperlipidemia, PVD, 6 CARDIAC STENTS Respiratory: COPD Gastrointestinal: NONE Hepatic: NONE Renal: chronic kidney disease, L ARM AVF PLACED 01/17/17 Musculoskeletal: chronic back pain, ?BACK PROBLEM REQUIRE SX Psychiatric: NONE Endocrine: diabetes Blood Disorders: NONE Cancer(s): THYROID CA PIANO TUNER/Reproductive: NONE History of MRSA: No History of VRE: No History of CDIFF: No Surgical History Surgical History: CARDIAC STENTS X 6 THYROIDECTOMY LEFT LEG FX REPAIR ELBOW FX REPAIR SPINAL FUSION C4-C5 AV fistula Psychosocial History Who do you live with Significant Other Services at Home Physical Therapy What is your primary language Ivorian Tobacco Use: Quit >30 days ago Family History Family History, If Any: FATHER FH: heart disease Relation not specified for: FH: diabetes mellitus FH: hypertension Hx Contributory? No Review of Systems Review of Systems Constitutional: Reports: no symptoms. EENTM: Reports: no symptoms. Respiratory: Reports: see HPI, cough, short of breath. Cardiovascular: Denies: chest pain. GI: Reports: vomiting. Denies: abdominal pain. Genitourinary: Reports: no symptoms. Musculoskeletal: Reports: no symptoms. Skin: Reports: no symptoms. Neurological/Psychological: Reports: no symptoms. Hematologic/Endocrine: Reports: no symptoms. Immunologic/Allergic: Reports: no symptoms. All Other Systems: Reviewed and Negative Physical Exam Physical Exam General Appearance: alert, awake, anxious Head: atraumatic, normal appearance Eyes: Bilateral: normal appearance, PERRL, EOMI. Ears, Nose, Throat: normal ENT inspection Neck: full range of motion Respiratory: decreased breath sounds, accessory muscle use, rhonchi Cardiovascular: regular rate/rhythm Peripheral Pulses: 4+ radial (R), 4+ radial (L) Gastrointestinal: non-tender Back: decreased range of motion Extremities: pedal edema Neurologic/Psych: no motor/sensory deficits, awake, alert, oriented x 3 Skin: intact, normal color, warm/dry Core Measures ACS in differential dx? Yes ASA ordered for poss ACS? Yes-ordered (actively vomiting/renal failur), No-other contraindication CVA/TIA Diagnosis: No Severe Sepsis Present: No Septic Shock Present: No Progress Differential Diagnoses I considered the following diagnoses in my evaluation of the patient: [Acute coronary syndrome, sepsis, obstruction, electrolyte derangement, hyperkalemia,] Plan of Care: Orders Procedure Date/time Status Nothing by Mouth 04/26 D Active TROPONIN LEVEL 04/26 2350 Active EKG 04/26 2350 Active Hemo-Dialysis 04/26 1844 Active TROPONIN LEVEL 04/26 1800 Active EKG 04/26 1800 Active URINE DRUGS OF ABUSE 04/26 1548 Active Vital Signs 04/26 1502 Active Teach/Educate 04/26 1502 Active Pain Treatment and Response 04/26 1502 Active Nutritional Intake, Monitor 04/26 1502 Active Isolation 04/26 1502 Active Intake & Output 04/26 1502 Active Patient Care Conference 04/26 1502 Active Activity/Ambulation 04/26 1502 Active PHOSPHORUS 04/26 1442 Active FingerStick- Glucose 04/26 1433 Complete Pathway - chart 04/26 1320 Active House Staff 04/26 1320 Active Patient Data 04/26 1320 Active Code Status 04/26 1320 Active Admit to inpatient 04/26 1317 Active Patient Data 04/26 1302 Active Vital Signs 04/26 1259 Active Code Status 04/26 1259 Complete EKG 04/26 1224 Active PHOSPHORUS 04/26 1126 Complete TROPONIN LEVEL 04/26 1114 Complete D-DIMER 04/26 1114 Complete COMPREHENSIVE METABOLIC PANEL 04/26 1114 Complete CBC WITHOUT DIFFERENTIAL 04/26 1114 Complete B-TYPE NATRIURETIC PEP (BNP) 04/26 1114 Complete Intake & Output 04/26 1047 Active FingerStick- Glucose 04/26 1043 Active Lab Add-on Test 04/26 UNK Active VTE Mechanical Prophylaxis 04/26 UNK Active Telemetry/Research Chef 04/26 UNK Active MISSING MEDICATION FORM 04/26 UNK Active Current Medications Sig/Julissa Start time Last Medication Dose Stop Time Status Admin Sertraline HCl 100 MG DAILY 04/27 1000 AC (Zoloft) Tamsulosin HCl 0.4 MG DAILY 04/27 1000 AC (Flomax) Aspirin Buffered 325 MG QPM 04/26 2200 AC (Ecotrin) Atorvastatin Calcium 80 MG QPM 04/26 2200 AC (Lipitor) Ramelteon 8 MG AT BEDTIME 04/26 2200 AC (Rozerem) Ticagrelor 90 MG BID 04/26 2200 AC (Brilinta) Trazodone HCl 150 MG AT BEDTIME 04/26 2200 AC (Desyrel) Guaifenesin 10 ML Q6-PRN PRN 04/26 2130 UNVr (Robitussin) Insulin Aspart 0 TIDAC 04/26 1745 AC (NovoLOG) Insulin Aspart 0 TIDAC 04/26 1700 CAN (NovoLOG) Cyclobenzaprine HCl 5 MG TID 04/26 1600 AC (Flexeril 5MG Tab) Alprazolam 0.5 MG BID PRN 04/26 1430 AC (Xanax) 05/03 1429 Trimethobenzamide HCl 200 MG 4 TIMES/DAY PRN 04/26 1430 AC 04/26 (Tigan) 1522 Morphine Sulfate 0 .STK-MED ONE 04/26 1427 CAN (Morphine) Isosorbide 60 MG DAILY 04/26 1420 AC 04/26 Mononitrate 1905 (Imdur) Levothyroxine Sodium 0.274 MG DAILY AC 04/26 1420 AC (Synthroid) Metoprolol Tartrate 50 MG BID 04/26 1420 AC (Lopressor) Budesonide/ 2 PUF BID 04/26 1419 AC Formoterol Fumarate (Symbicort) Clopidogrel Bisulfate 75 MG DAILY 04/26 1419 AC 04/26 (Plavix) 1904 Furosemide 40 MG BID 04/26 1419 AC (Lasix) Heparin Sodium 5,000 UNIT Q8 04/26 1400 AC 04/26 (Porcine) 1426 Acetaminophen 325 MG Q6P PRN 04/26 1330 AC (Tylenol) Acetaminophen 1,000 MG Q6P PRN 04/26 1330 AC (Ofirmev) Sodium Chloride 1,000 ML ONCE ONE 04/26 1115 AC 04/26 (Normal Saline 0.9%) 04/27 0714 1150 Laboratory Tests 04/26/17 1126: Anion Gap 14, Estimated GFR 16 L, BUN/Creatinine Ratio 4.7 L, Glucose 141 H, Calcium 8.9, Phosphorus 1.2 L, Total Bilirubin 2.1 H, AST 36, ALT 31, Alkaline Phosphatase 119, Troponin I 0.50 *H, Vge-T-Vkoodlgjjzz Pept 08284 H, Total Protein 7.0, Albumin 4.2, Globulin 2.8, Albumin/Globulin Ratio 1.5, D-Dimer High Sensitivty 459 H, CBC w Diff NO MAN DIFF REQ, RBC 3.93 L, MCV 81.1, MCH 27.1, RDW 20.5 H, MPV 8.5, Gran % 68.4, Lymphocytes % 24.4, Monocytes % 6.5, Eosinophils % 0.1, Basophils % 0.6, Absolute Granulocytes 2.7, Absolute Lymphocytes 1.0 L, Absolute Monocytes 0.3, Absolute Eosinophils 0, Absolute Basophils 0, PUBS MCHC 33.5 Initial ED EKG: NSR, nonspecific ST T wave chg, ICLBB, LVH Prior EKG: unchanged Departure Departure Disposition: STILL A PATIENT Condition: Stable Clinical Impression Primary Impression: Troponin level elevated Secondary Impressions: SABRINA (acute kidney injury), Intractable vomiting Referrals: CARLITA PAGE DO (PCP/Family) Departure Forms: Customer Survey General Discharge Information Comments PATIENT: DEEPIKA BRANDT PRESENT AGE: 67 PATIENT ACCOUNT NO: [id number] : 52 LOCATION: [facility] ORDERING PHYSICIAN: TESFAYE MONSON DO SERVICE DATE: 04/26/17 EXAM TYPE: CAT - CT ABD & PELVIS W/O IV CONTRAS EXAMINATION: CT ABDOMEN AND PELVIS WITHOUT CONTRAST CLINICAL INFORMATION: Vomiting. Assess for obstruction. COMPARISON: CT abdomen and pelvis without contrast 04/22/2017 and 05/30/2015. TECHNIQUE: Multidetector volumetric imaging was performed from the superior aspect of the liver through the pubic symphysis. Sagittal and coronal reformatted images were obtained on the technologist's workstation. No oral or intravenous contrast. DLP: 422 mGy-cm FINDINGS: LUNG BASES: Small bibasilar effusions again seen. Trace pericardial effusion stable. Fissural-based nodules right lateral base stable from prior exam. LIVER, GALLBLADDER, AND BILIARY TREE: The liver is normal in size and smooth in contour. Again, there are some scattered calcified hepatic granulomata dome left lobe. There is no interval hepatic parenchymal lesion or intrahepatic biliary ductal dilatation. The gallbladder is unremarkable with no evidence of radiopaque gallstones, gallbladder wall thickening, or obvious pericholecystic inflammatory changes. PANCREAS: Unremarkable. SPLEEN: Borderline splenic enlargement measuring 13.6 cm. Prior measurement 14.5 cm. ADRENAL GLANDS: Unremarkable. KIDNEYS AND URETERS: There is no hydronephrosis, hydroureter, or perinephric stranding. There are renovascular calcifications. No visible renal or ureteral calculi. Again, there are bilateral renal cysts largest posterior left lower pole 3.2 cm (8 HU attenuation) and medial right upper pole 4.8 cm (7HU attenuation). BLADDER: Unremarkable. GASTROINTESTINAL TRACT: There is no bowel obstruction or focal inflammatory changes in the bowel or mesentery. The appendix is unremarkable. No ascites or fluid collection. ABDOMINAL WALL: No significant hernia is appreciated. LYMPH NODES: No lymphadenopathy. VASCULAR: Extensive coronary artery atherosclerotic calcifications again seen. Atherosclerotic calcifications aorta, iliac arteries, splenic artery, and renal vascular calcifications. PELVIC VISCERA: Unremarkable. OSSEOUS STRUCTURES: No acute bony abnormality. IMPRESSION: 1. No obstruction or focal inflammatory changes abdomen or pelvis. 2. No hydronephrosis or perinephric stranding. DICTATED BY: GIA TAVERAS MD DATE/TIME DICTATED:04/26/171133 CLASSROOM INSTRUCTIONAL AIDE:SAVANA DATE/TIME TRANSCRIBED:04/26/171133 CONFIDENTIAL, DO NOT COPY WITHOUT APPROPRIATE AUTHORIZATION. <Electronically signed in Other Vendor System> SIGNED BY: GIA TAVERAS MD 1203 Patient continues to vomit. His vital signs are stable. EKG unchanged. Chest x-ray negative. CT scan of the abdomen and pelvis without contrast is unremarkable. I discussed the case with Dr. Zamudoi who evaluated the patient prior to discharge, and spoke with Dr. Red. She is accepted the patient to inpatient observation on telemetry. We will also get nephrology consultation , and I will call Dr. Lee to see him. Admission Note Spoke With: FATOUMATA ELDRIDGE,LINDA Documentation of Exam: Documentation of any treatments & extenuating circumstances including Concerns Regarding Discharge (functional status, medication knowledge or non-compliance, living conditions, etc.) that warrant an admission rather than observation: [The patient needs admission for IV fluids, inpatient dialysis, IV antiemetics, cardiology consultation, renal consultation, consider CTA to rule out pulmonary embolism] Aspirin was not given beause he is actively vomiting The patient had multiple episodes of vomiting despite multiple doses of antiemetics. Cardiology and renal consultations were requested. He was admitted to the hospital for further care. Critical Care Note Critical Care Note Critical Care Time: 30-74 min
[2017-04-26] MEDS ORDERED: DIAZEPAM5 M1 PO (10:50)
[2017-04-26] MEDS ORDERED: FUROSEMIDE80 M1 PO (10:51)
[2017-04-26] MEDS ORDERED: FUROSEMIDE40 M1 PO (10:53)
[2017-04-26] MEDS ORDERED: LANTUS SOL100 UNIT/1 SC ×2 (10:54)
[2017-04-26] MEDS ORDERED: LOSARTAN-HCTZ1 EAC2 PO (10:55)
--- NOTE | 2017-04-26 10:55 | NUR ---
67 Y/O MALE BIBA FROM HOME FOR EVAL OF N/V SINCE THIS MORNING. PT ARRIVES ALERT AND ORIENTED X 4, SPEAKING CLEARLY WITH NO DISTRESS OR DEFICITS NOTED. PT STATES HE WAS ADMITTED TO HOSPITAL AND D/IFRAH YESTERDAY, "I FELT GREAT, I WAS PERFECT". STATES HE WOKE THIS MORNING AND HAS HAD VOMITING SINCE. VISITING NURSE SUGGESTED HE COMES TO ED FOR EVAL. PT DENIES ANY PAIN. DENIES OTHER COMPLAINTS. STATES HE USES 02 AT HOME NEEDED AND REQUESTING 2L AT THIS TIME, PROVIDED WITH SAME - SAT 100%. PT STATES HE RECEIVES DIALYSIS T--SAT - LAST HAD SESSION SAT AND IS DUE THIS AFTERNOON. PT HAS MATURING FISTULA IN L ARM (RESTRICTED BAND PLACED) AND ROBINA CATH TO R TORSO FINGERSTICK 144 AWAITING EVAL
[2017-04-26] MEDS ORDERED: LEVOTHYROXINE137 MCG PO (10:57)
[2017-04-26] MEDS ORDERED: RENVELA800 M1 PO (10:58)
[2017-04-26] MEDS ORDERED: BRILINTA90 M1 PO (10:59)
--- NOTE | 2017-04-26 11:12 | NUR ---
DR MONSON AT THE BEDSIDE REPORT GIVEN TO CASSIE DE JESUS
--- NOTE | 2017-04-26 11:13 | NUR ---
REPORT RECEIVED; CARE OF PT ASSUMED
[2017-04-26 11:51] LABS: ABSOLUTE BASOPHIL COUNT 0 /CUMM (0.0-0.2); ABSOLUTE EOSINOPHIL COUNT 0 /CUMM (0.0-0.7); ABSOLUTE GRANULOCYTE CT 2.7 /CUMM (1.4-6.5); ABSOLUTE MONOCYTE COUNT 0.3 /CUMM (0.10-0.60); BASOPHIL % 0.6 % (0.0-2.0); EOSINOPHIL % 0.1 % (0-5); HEMATOCRIT 31.9 % (42-52); MEAN CORPUSCULAR HGB 27.1 PG (27.0-31.0); MEAN CORPUSCULAR HGB CONC 33.5 G/DL (33.0-37.0); MEAN CORPUSCULAR VOLUME 81.1 FL (80.0-94.0); MEAN PLATELET VOLUME 8.5 FL (7.4-10.4); PLATELET COUNT 197 /CUMM (130-400); RBC DISTRIBUTION WIDTH 20.5 % (11.5-14.5); RED BLOOD CELL CT 3.93 /CUMM (4.70-6.10)
[2017-04-26 11:59] LABS: GRANULOCYTE % 68.4 % (42.2-75.2)
--- NOTE | 2017-04-26 12:03 | CT SCAN REPORT ---
EXAMINATION: CT ABDOMEN AND PELVIS WITHOUT CONTRAST CLINICAL INFORMATION: Vomiting. Assess for obstruction. COMPARISON: CT abdomen and pelvis without contrast 04/22/2017 and 05/30/2015. TECHNIQUE: Multidetector volumetric imaging was performed from the superior aspect of the liver through the pubic symphysis. Sagittal and coronal reformatted images were obtained on the technologist's workstation. No oral or intravenous contrast. DLP: 422 mGy-cm FINDINGS: LUNG BASES: Small bibasilar effusions again seen. Trace pericardial effusion stable. Fissural-based nodules right lateral base stable from prior exam. LIVER, GALLBLADDER, AND BILIARY TREE: The liver is normal in size and smooth in contour. Again, there are some scattered calcified hepatic granulomata dome left lobe. There is no interval hepatic parenchymal lesion or intrahepatic biliary ductal dilatation. The gallbladder is unremarkable with no evidence of radiopaque gallstones, gallbladder wall thickening, or obvious pericholecystic inflammatory changes. PANCREAS: Unremarkable. SPLEEN: Borderline splenic enlargement measuring 13.6 cm. Prior measurement 14.5 cm. ADRENAL GLANDS: Unremarkable. KIDNEYS AND URETERS: There is no hydronephrosis, hydroureter, or perinephric stranding. There are renovascular calcifications. No visible renal or ureteral calculi. Again, there are bilateral renal cysts largest posterior left lower pole 3.2 cm (8 HU attenuation) and medial right upper pole 4.8 cm (7HU attenuation). BLADDER: Unremarkable. GASTROINTESTINAL TRACT: There is no bowel obstruction or focal inflammatory changes in the bowel or mesentery. The appendix is unremarkable. No ascites or fluid collection. ABDOMINAL WALL: No significant hernia is appreciated. LYMPH NODES: No lymphadenopathy. VASCULAR: Extensive coronary artery atherosclerotic calcifications again seen. Atherosclerotic calcifications aorta, iliac arteries, splenic artery, and renal vascular calcifications. PELVIC VISCERA: Unremarkable. OSSEOUS STRUCTURES: No acute bony abnormality. IMPRESSION: 1. No obstruction or focal inflammatory changes abdomen or pelvis. 2. No hydronephrosis or perinephric stranding.
--- NOTE | 2017-04-26 12:08 | RADIOLOGY REPORT ---
EXAMINATION: XR PORTABLE CHEST CLINICAL INFORMATION: Vomiting. Possible aspiration. COMPARISON: Portable chest 04/22/2017, 04/12/2017, 03/31/2017, CT abdomen 04/22/2017. TECHNIQUE: Portable upright AP 85 degree view of the chest was obtained. FINDINGS: There is mild elevation right diaphragm similar to prior studies. Right internal jugular dialysis catheter stable in position. The vascularity is normal. There is no pneumothorax, vascular congestion, or interval airspace consolidation. No visible effusion. Heart size normal. Hilar and mediastinal contours and bony structures are stable. IMPRESSION: Lungs clear. No acute intrathoracic disease.
--- NOTE | 2017-04-26 12:23 | NUR ---
CRITICAL TEST RESULTS [id number] DEEPIKA BRANDT 67 M TESTS AND RESULTS: TROPONIN 0.50 Results received and read back by: MELISSA RIVERO Results received date and time: 04/26/17 1224 The following provider was notified of the results, and read the results back: DR. MONSON Notified date and time: 04/26/17 at 1226
--- NOTE | 2017-04-26 12:38 | NUR ---
DR MONSON AT PT BEDSIDE
--- NOTE | 2017-04-26 12:40 | NUR ---
EKG BEING DONE AT BEDSIDE. PT ON TELEMETRY
--- NOTE | 2017-04-26 12:53 | NUR ---
11:30AM PT C/O OF NAUSEA. PT STATES CAN'T TAKE NEB TX AT THIS TIME. 12:00PM NEB TX GIVEN. PT C/O OF ABDOMINAL PAIN. AFTER 5 MINS PT STATES CAN'T FINISH NEB TX DUE TO ABDOMINAL PAIN. RN AND DR. MONSON AWARE.
--- NOTE | 2017-04-26 12:58 | NUR ---
PT WITH ONGOING N/V DESPITE ZOFRAN. DR MONSON AWARE
--- NOTE | 2017-04-26 13:25 | History & Physical ---
VERONICA DIANE MD 04/26/17 6285: General Information and HPI MD Statement: I have seen and personally examined DEEPIKA BRANDT and documented this H&P. The patient is a 67 year old M who presented with a patient stated chief complaint of nausea, vomiting, hypertensive urgency. Source of Information: patient Exam Limitations: no limitations History of Present Illness: This is a 67-year-old male with history of CAD, IA status post 2 drug-eluting stents in October 2016 on dual antiplatelet therapy, COPD, hypertension, diabetes, end-stage renal disease dialysis Tuesday that recently was a patient in telemetry for complaints of dizziness and was found to have hypotension. He was discharged on a lower dose of his metoprolol and his clonidine and Lasix were stopped during that admission. One day after discharge, today he presents with chief complaints of nausea, vomiting since this morning and shortness of breath, hypertensive urgency blood pressure 180/100 with a normal pulse rate and afebrile. Patient states that after discharge he went home, ate dinner, took his medications that he was prescribed including a new insulin regimen and a lower dose of metoprolol 25 mg. His clonidine and Lasix were stopped during that admission. He that he was not able to sleep and got out of bed in the morning to 6 hours worth of nausea and vomiting. He states that he vomited about 12 times and that the vomitus was bilious. He states that he has a little abdominal pain while he is vomiting. He also states that he has some shortness of breath. He states that he has a diagnosis of anxiety and usually takes Xanax in the morning and at night. His last dose that he took was last night. He denies fever, urinary symptoms, diarrhea, constipation, visual changes, headache, itchiness, chest pain. He was supposed to go for dialysis today. In the ED patient continued to vomit. His temperature was 97.0, his pulse 105, and his blood pressure 178/93. He was satting 100% on room air but was put on 2 L nasal cannula due to subjective feeling of shortness of breath. He was given 1 L of fluids and was given Lopressor 50 mg and Lasix 40 mg. He was given Zofran for nausea. His blood pressure after this went down to 134/80 with a pulse rate of 106. His hemoglobin was 10.7, WBCs 4.0, d-dimer 459, potassium 4.1 sodium 134 creatinine 3.8, phosphorus 1.2, proBNP 34 700, total bilirubin 2.1, normal liver function tests otherwise. His first set of troponins is 0.5. Hemoglobin A1c 9.1. Chest x-ray showed no acute intrathoracic disease. CT abdomen and pelvis without contrast showed no pathology. Upon admission endocrinology, cardiology and nephrology were consulted. Patient is admitted to telemetry for hypertensive urgency. Allergies/Medications Allergies: Coded Allergies: Iodinated Contrast- Oral and IV Dye (PER PT STATES HIS KIDNEYS ARE SHOT HE IS ON DIALYSIS 03/27/17) morphine (Mild, LOOPY 01/18/17) hydromorphone (DEPRESSED RESPIRATIONS 01/18/17) Home Med list Alprazolam (Xanax) 0.5 MG TABLET 1 TAB PO BID PRN ANXIETY Amlodipine Besylate 10 MG TABLET 1 TAB PO DAILY HEART (Reported) Aspirin (Ecotrin*) 325 MG TABLET.DR 1 TAB PO QPM CAD (Reported) Atorvastatin Calcium (Lipitor) 80 MG TABLET 1 TAB PO QPM CHOLESTEROL ( Reported) Budesonide/Formoterol Fumarate (Symbicort 160-4.5 Mcg Inhaler) 160 MCG-4.5 MCG/ ACTUATION HFA.AER.AD 2 PUF INH BID COPD Rinse your mouth after using inhaler. Clonidine HCl 0.1 MG TABLET 1 TAB PO BID UNKNOWN (Reported) Clopidogrel Bisulfate (Plavix) 75 MG TABLET 75 MG PO DAILY ANTIPLATELET Cyclobenzaprine HCl 5 MG TABLET 1 TAB PO TID PAIN (Reported) Diazepam 5 MG TABLET 1 TAB PO TIDPRN PRN SPASMS (Reported) Folic Acid 1 MG TABLET 1 TAB PO DAILY SUPPLEMENT (Reported) Furosemide 80 MG TABLET 1 TAB PO DAILY WATER RETENTION (Reported) Furosemide 40 MG TABLET 1 TAB PO BID WATER RETENTION (Reported) Insulin Aspart (Novolog) 100 UNIT/ML CARTRIDGE 0 SC TIDAC DIABETES BEFORE MEALS... Blood Insulin Sugar Units <80 0 81-100 0 101-200 0 201-250 2 251-300 3 301-350 4 351-400 5 >400 Call Doctor Insulin Glargine,Hum.rec.anlog (Lantus Solostar) 100 UNIT/ML (3 ML) INSULN.PEN 62 UNIT SC QPM DIABETES (Reported) Insulin Glargine,Hum.rec.anlog (Lantus Solostar) 100 UNIT/ML (3 ML) INSULN.PEN 5 UNIT SC BID DIABETES (Reported) Isosorbide Mononitrate (Isosorbide Mononitrate ER) 60 MG TAB.ER.24H 1 TAB PO DAILY CAD Levothyroxine Sodium 137 MCG TABLET 2 TAB PO DAILY AC THYROID (Reported) Liraglutide (Victoza 3-Zeus) 0.6 MG/0.1 ML (18 MG/3 ML) PEN.INJCTR 1.8 MG SC QPM DIABETES (Reported) Losartan/Hydrochlorothiazide (Losartan-Hctz 100-25 MG Tab) 100 MG-25 MG TABLET 1 TAB PO DAILY HEART (Reported) Metoprolol Tartrate 25 MG TABLET 0.5 TAB PO BID high blood pressure Nut.tx.impaired Renal Fxn,Soy (Nepro Carb Steady) (Unknown Strength) LIQUID 120 ML PO BID UNKNOWN (Reported) Ramelteon (Rozerem) 8 MG TABLET 1 TAB PO AT BEDTIME SLEEP HELP Sennosides/Docusate Sodium (Senna S Tablet) 8.6 MG-50 MG TABLET 2 TAB PO QPM GI (Reported) Sertraline HCl (Zoloft) 100 MG TABLET 1 TAB PO DAILY ANXIETY (Reported) Sevelamer Carbonate (Renvela) 800 MG TABLET 2 TAB PO TIDAC ERSD (Reported) Tamsulosin HCl 0.4 MG CAP.ER.24H 1 CAP PO DAILY PROSTATE (Reported) Ticagrelor (Brilinta) 90 MG TABLET 1 TAB PO BID BLOOD THINNER (Reported) Trazodone HCl 150 MG TABLET 1 TAB PO QPM SLEEP (Reported) Compliance With Home Meds: GOOD Past History Travel History Traveled to [place] past 21 day No Medical History Neurological: NONE EENT: NONE Cardiovascular: CAD, hypertension, hyperlipidemia, PVD, 6 CARDIAC STENTS Respiratory: COPD Gastrointestinal: NONE Hepatic: NONE Renal: chronic kidney disease, L ARM AVF PLACED 01/17/17 Musculoskeletal: chronic back pain, ?BACK PROBLEM REQUIRE SX Psychiatric: NONE Endocrine: diabetes Blood Disorders: NONE Cancer(s): THYROID CA 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 Home Who Do You Live With? spouse Services at Home: Physical Therapy Functional Ability ADLs Independent: dressing, eating, toileting, bathing. Ambulation: cane IADLs Independent: shopping, housework, finances, food prep, telephone, transportation , medication admin. Review of Systems Review of Systems Constitutional: Reports: weakness. EENTM: Reports: no symptoms. Cardiovascular: Reports: no symptoms. Respiratory: Reports: short of breath. GI: Reports: abdominal pain, nausea, vomiting. Genitourinary: Reports: no symptoms. Musculoskeletal: Reports: no symptoms. Skin: Reports: no symptoms. Neurological/Psychological: Reports: anxiety. Hematologic/Endocrine: Reports: no symptoms. Immunologic/Allergic: Reports: no symptoms. Exam & Diagnostic Data Last 24 Hrs of Vital Signs/I&O Vital Signs Date Time Temp Pulse Resp B/P B/P Pulse O2 O2 Flow FiO2 Mean Ox Delivery Rate 04/26 1905 106 134/80 04/26 1721 97.8 106 16 134/80 100 Room Air 04/26 1538 94 Room Air 04/26 1447 98.2 110 26 177/104 97 Room Air 04/26 1308 98.0 108 20 182/106 96 Nasal 3.0L Cannula 04/26 1200 100 04/26 1135 100 180/100 04/26 1047 100 Room Air 04/26 1041 97.0 105 18 178/93 100 Room Air Intake & Output 04/26 1600 04/26 0800 04/26 0000 Intake Total Output Total Balance Patient 189 lb Weight Weight Reported by Patient Measurement Method Physical Exam General Appearance Alert, Oriented X3, Cooperative, Moderate Distress Skin No Rashes, No Breakdown, No Significant Lesion Skin Temp/Moisture Exam: Warm/Dry Sepsis Skin Exam (color): Normal for Ethnicity HEENT Atraumatic, PERRLA, EOMI, Mucous Membr. moist/pink Neck Supple Cardiovascular Regular Rate, Normal S1, Normal S2, No Murmurs, Gallops, Rubs Lungs Clear to Auscultation, Normal Air Movement Abdomen Normal Bowel Sounds, Soft, No Tenderness Neurological Normal Speech Extremities No Edema, Normal Pulses, No Tenderness/Swelling Vascular Normal Pulses, Pulses Symmetrical Sepsis Peripheral Pulse Location: Radial Sepsis Peripheral Pulse Exam: Normal Last 24 Hrs of Labs/Angus: Laboratory Tests 04/26/17 1126: Anion Gap 14, Estimated GFR 16 L, BUN/Creatinine Ratio 4.7 L, Glucose 141 H, Calcium 8.9, Phosphorus 1.2 L, Total Bilirubin 2.1 H, AST 36, ALT 31, Alkaline Phosphatase 119, Troponin I 0.50 *H, Foy-Q-Tcrcfiaivik Pept 20381 H, Total Protein 7.0, Albumin 4.2, Globulin 2.8, Albumin/Globulin Ratio 1.5, D-Dimer High Sensitivty 459 H, CBC w Diff NO MAN DIFF REQ, RBC 3.93 L, MCV 81.1, MCH 27.1, RDW 20.5 H, MPV 8.5, Gran % 68.4, Lymphocytes % 24.4, Monocytes % 6.5, Eosinophils % 0.1, Basophils % 0.6, Absolute Granulocytes 2.7, Absolute Lymphocytes 1.0 L, Absolute Monocytes 0.3, Absolute Eosinophils 0, Absolute Basophils 0, PUBS MCHC 33.5 Diagnostic Data EKG Results EKG showed sinus tachycardia, no significant ST-T wave changes, QTC 480 Assessment/Plan Assessment: Assessment This is a 67-year-old male with history of CAD, IA status post 2 drug-eluting stents in October 2016 on dual antiplatelet therapy, COPD, hypertension, diabetes, end-stage renal disease dialysis Tuesday that recently was a patient in telemetry for complaints of dizziness and was found to have hypotension. He was discharged on a lower dose of his metoprolol and his clonidine and Lasix were stopped during that admission. One day after discharge , today he presents with chief complaints of nausea, vomiting since this morning and shortness of breath, hypertensive urgency blood pressure 180/100 with a normal pulse rate and afebrile. The following is a list of current issues: * Nausea and vomiting * Hypertensive urgency * Elevated troponins * End-stage renal disease on dialysis * COPD history and shortness of breath * Type 2 diabetes * CAD status post IA and 2 drug-eluting stents in October 2016 * CHF Plan Nausea and vomiting: * Patient was given 1 dose of Zofran in the ED, we have ordered Tigan for now as his QT interval was on the higher side of normal. * As per nephrology, this patient's nausea is not should be able to his uremia. B UN is 18, creatinine is 3.8. He was recently dialyzed on Tuesday. Although today is his next day for scheduled dialysis, it is too soon for uremic effects to have contributed to nausea and vomiting. This usually happens when someone has missed dialysis for at least 2-3 weeks and has a creatinine of 8, 9, 10 or higher, not 3.8. * Patient denies history of gastroparesis. This nausea and vomiting is likely viral etiology. * Keep patient nothing by mouth. Hypertensive urgency * Monitor patient on telemetry * First troponin is 0.50, follow-up repeat troponins and EKGs * Patient has been given metoprolol, blood pressure already better, continue to follow Elevated troponins * In light of negative EKG, this is likely due to chronic kidney disease. Patient has had elevated troponins in the past. * Today to monitor in telemetry Type 2 Diabetes * Daily Accu-Cheks * Dr. Torres, endocrinology recommends NovoLog coverage AC, with low dose insulin coverage starting above glucose levels of 251. * Hold Victoza * Monitor glucose and electrolytes End-stage renal disease on dialysis * Patient's potassium is 3.8, chest x-ray is clear. * As per nephrology plan on dialysis tomorrow. * Strict intakes and outputs and daily weights. CAD * Continue aspirin 325 mg daily * Atorvastatin 80 mg every day * Brillinta 90 mg twice a day * Plavix 75 mg * Imdur 60 mg daily CHF * ProBNP 01248 * Monitor intake and outtake * Continue home dose 40 mg twice a day Lasix * Monitor BP and pulse rate Anxiety * Continue home meds COPD * Continue home meds Patient is full code DVT heparin subcutaneous Patient is on renal dialysis diet As Ranked By This Provider Problem List: 1. CAD (coronary artery disease) 2. Intractable vomiting 3. Elevated troponin 4. ESRD (end stage renal disease) on dialysis 5. COPD (chronic obstructive pulmonary disease) 6. DVT prophylaxis 7. Shortness of breath 8. Nausea 9. Type 2 diabetes mellitus 10. Hypertension Core Measures/Miscellaneous Acute Coronary Syndrome ACS Diagnosis: Yes Last Known EF % 50 SHERRELL/ARB For EF <40% No ASA W/I 24hr of admit Yes Beta-Christine W/I 24hrs Yes LDL assessed W/I 24 hrs Yes Currently on Statin Yes Cerebrovascular Accident CVA/TIA Diagnosis: No Congestive Heart Failure CHF Diagnosis: Yes Last Known EF %: 50 VTE (View Protocol) VTE Risk Factors: Acute medical illness, Age > 40, Immobility, paresis [facility] prophylaxis d/t: No contraindications No VTE Pharm Prophylaxis d/t: No contraindications VTE Diagnosis: No VTE Type: NONE VTE Confirmed by (Test): NONE Sepsis (View Protocol) Severe Sepsis Present: No Septic Shock Septic Shock Present: No Miscellaneous Documentation Attending Case Discussed With: IRENE KERN MD Primary Care Physician: CARLITA PGAE DO Patient sees these Specialists Nephrology, endocrinology, cardiology Level of Patient Care: Telemetry GERBER BETHEA 04/26/17 1341: Resident Review Statement Resident Statement: examined this patient, discussed with test engineering intern Other Findings: Mr. 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 Patient reports that after going home he has been feeling very nauseous and weak. He hasn't been able to sleep or eat well. He started vomiting and had mild abdominal pain in the suprapubic and umbilical area. Denies any fever, chills, chest pain, palpitations, urinary or bowel symptoms. His Lasix and blood pressure medications had been held at the previous admission due to hypotension and he was discharged home on 12.5 mg of metoprolol twice a day. He was scheduled for a dialysis session today however he was feeling so sick that his visiting nurse insisted that he came to the ED for evaluation. He also reports mild shortness of breath that started this morning which the patient attributes to anxiety. He is on and Xanax daily and had taken the last dose yesterday night. On arrival to the ED his temperature was 97, pulse 105, respiration 18, blood pressure 178/93, pulse ox 100% on room air. He desaturated and was put on 3 Loxygen Labs showed no white count, H&H 10.7 /31.9(chronic disease), sodium 134, creatinine 3.8, Bilirubin 2.1, troponin 0.50, ProBNP 94970 d-dimer of 459 EKG: sinus tachycardia, no significant ST-T wave changes, QTC 480 Chest x-ray showed clear lungs with no acute disease ion CT abdomen and pelvis had no acute findings,no hydronephrosis or perinephric stranding Physical exam Gen: Awake alert and oriented with mild distress HEENT: Bruising no bruit noted over the right eyebrow and right cheek secondary to fall. PERRLA, EOMI. Right neck IJ catheter with no inflammation Lungs: Decreased bilateral breath sounds CVS: S1 and S2 heard, no murmurs Or Gallops Extremities: Left upper extremity fistulA, bruit, trace, no pedal edema Plan #1 Nausea and vomiting: Symptoms likely secondary to uremia. Patient is scheduled for dialysis today. We'll try and contact nephrology service and get the patient dialyzed today CAT scan was negative for any acute findings We will continue IV Tigan [id number] for nausea(QTC 480) Continue Toradol prn for abdominal pain #2 Acute onset of shortness of breath: Differentials were PE/ pneumonia, anxiety or fluid overload. Low probability of PE given low d-dimer values Chest x-ray showed no evidence of any acute process Will continue Xanax for anxiety Might benefit from hemodialysis #3 Hypertensive urgency: Patient's blood pressure medications were held at last admission due to hypotension and he was sent home on 12.5 twice a day of metoprolol. Will resume his metoprolol at 50 twice a day Restart Lasix dose of 40 mg bid Can slowly restart clonidine and amlodipine for better pressure control later #4 Elevated troponin: Patient is asymptomatic with no new EKG changes and negative cardiac biomarkers Likely demand ischemia and chronic kidney disease 3 sets of troponin and EKG to rule out ACS #5 HFwrEF: EF of 45-50% with akinetic apex. Elevated proBNP at 27,600 Monitor ins and outs Daily weight checks Continue Lasix at home dose of 40 bid with close monitoring of the blood pressure. Cardiology on board #6 End-stage renal disease on hemodialysis and hyperphosphatemia(last admission) Patient is scheduled for dialysis on Tuesday//Tuesday. We'll try and get dialysis done today We will continue to hold sevelamer Check phosphorus and replace by mouth only if phosphorous less than 1 Nephrology on board #7Hypertension Holding on metoprolol and clonidine at this time due to low blood pressure Can resume metoprolol in a.m. if blood pressure stable Follow cardiology recommendations #8M Insulin-dependent diabetes melitis with recent episode of hypoglycemia Daily Accu-Cheks NovoLog sliding scale low-dose Endocrinology consult(Dr. Agrawal was planning to take him off insulin due to low requirements) #9 Recent staph coagulase-negative bacteremia with replacement of Bao cath Posttreatment with 13 days of vancomycin, catheter site looks clean and intact Negative TTE/LILIANE for vegetation No symptoms at this time #10 history of coronary artery disease status post stents Continue aspirin, statin, Plavix, Imdur Resume home dose of beta christine beta christine #11 DVT prophylaxis Subcutaneous heparin Full code Diabetic diet IRENE KERN MD 04/26/17 2313: Attending MD Review Statement Attending Statement Attending MD Statement: examined this patient, discuss w/resident/PA/REIMBURSEMENT ANALYST, agreed w/resident/PA/REIMBURSEMENT ANALYST, reviewed EMR data (avail), reviewed images, amended to note Attending Assessment/Plan: The patient is a 67 yo male with h/o CAD (s/p IA and 2 stents 10/2016), COPD, HTN , DM22, ESRD on dialysis who was discharged form [facility] yesterday and presented today when found by nurse to have weakness, nausea, vomiting at home. He had been discharged off of furosemide and clonidine and lower dose of Metoprolol. He also described some dyspnea and hemoptysis. He was found with a BP of 180/100. He stated that he vomited 12 x. Denied diarrhea. He was seen by Nephrology and felt not to require emergent dialysis in that his BUN/Cr were not that significantly above baseline. Upon reviewing chart, the patient was on Clonidine 0.1 mg bid that was abruptly stopped on the last admission. Physical Exam: VS: T 97.0, P 105, R 18, BP 178/93-132/80, PO 100% RA HEENT: eyes- PERRLA, EOMI kim- moist mucosa Neck: no JVD/bruits Chest: clear Cor: RRR, nl S1, S2 w/o murm Abd: BS+, soft, NT, no guarding/rebound Ext: no edema Neuro: alert & oriented x 3, non-focal exam Labs/Tests: as above Impression/Plan: #Nausea/Vomiting- ? gastritis. Patient with no fever/chills. Uremia is in differential, however BUN not significantly elevated. Another possibility is Clonidine withdrawal as this was abruptly stopped at time of last admission. Plan: Will advise resident to give Clonidine this evening (discussed with Dr. Bob) to see if symptoms resolve. Consider slower taper of Clonidine. Hold other antihypertensives. Zofran for nausea. #Hypertensive Urgency-BP significantly elevated. Plan: As above, would reintroduce Clonidine first along with Lasix and follow. Await dialysis. #ESRD on Dialysis- Nephrology input appreciated. Plan: Dialysis in morning. #Elevated Troponin Levels/CAD- chronic and w/o change c/w renal failure. Plan: Cardiology input appreciated. Will follow on Telemetry and trend. Continue Isosorbide. #DM- Endocrinology input appreciated. Plan: Novolog coverage as is vomiting- sliding scale as per Endocrinology. Hold Victoza and Glargine. #Depression- on Zoloft/Trazodone. Plan: Continue if not vomiting. #Hypothyroid- on Levothyroxine. Plan: Continue Levothyroxine.
--- NOTE | 2017-04-26 13:27 | NUR ---
PT CLAIMS RELIEF FROM 2ND DOSE OF ZOFRAN. RESTING COMFORTABLY IN ROOM
--- NOTE | 2017-04-26 13:38 | NUR ---
HOUSE STAFF AT BEDSIDE
--- NOTE | 2017-04-26 13:46 | NUR ---
PT HAS A BED 182-01
--- NOTE | 2017-04-26 14:27 | NUR ---
HEPARIN GIVEN ORDERED. NO MORPHINE GIVEN. PT HAS ALLERGY. NOTIFIED
--- NOTE | 2017-04-26 14:41 | NUR ---
REPORT TO NARINDER MATTHEWS ON 1N
--- NOTE | 2017-04-26 14:45 | Cons- Nephrology ---
General Information and HPI Consulting Request Date of Consult: 04/26/17 Requested By: ANMOL MOLINA MD Reason for Consult: Evaluation and management of end-stage renal disease Source of Information: patient, old records Exam Limitations: no limitations History of Present Illness: This 67-year-old gentleman has a history of end-stage renal disease and is due for dialysis today. Because of his end-stage renal disease is diabetes. He also has a history of coronary artery disease. He recently had a coagulase- negative staph line infection. He was discharged on April 15. He then returned last week with an episode of hypotension. Troponins were positive. Doppler and now are declining. He went home from [facility] yesterday. This morning, when he woke, he developed intractable nausea and vomiting. Denies a previous history of gastroparesis. He is due for dialysis today. He was last dialyzed uneventfully on Tuesday. That was here at [facility]. He was discharged from [facility] yesterday. He is now referred observation because of the development of intractable nausea. He was admitted last week with hypotension. He also had positive troponins. His episode of hypotension may have been precipitated by medications. Today, he has not eaten anything. He had fish for dinner at home last night. Allergies/Medications Allergies: Coded Allergies: Iodinated Contrast- Oral and IV Dye (PER PT STATES HIS KIDNEYS ARE SHOT HE IS ON DIALYSIS 03/27/17) morphine (Mild, LOOPY 01/18/17) hydromorphone (DEPRESSED RESPIRATIONS 01/18/17) Home Med List: Alprazolam (Xanax) 0.5 MG TABLET 1 TAB PO BID PRN ANXIETY Amlodipine Besylate 10 MG TABLET 1 TAB PO DAILY HEART (Reported) Aspirin (Ecotrin*) 325 MG TABLET.DR 1 TAB PO QPM CAD (Reported) Atorvastatin Calcium (Lipitor) 80 MG TABLET 1 TAB PO QPM CHOLESTEROL ( Reported) Budesonide/Formoterol Fumarate (Symbicort 160-4.5 Mcg Inhaler) 160 MCG-4.5 MCG/ ACTUATION HFA.AER.AD 2 PUF INH BID COPD Rinse your mouth after using inhaler. Clonidine HCl 0.1 MG TABLET 1 TAB PO BID UNKNOWN (Reported) Clopidogrel Bisulfate (Plavix) 75 MG TABLET 75 MG PO DAILY ANTIPLATELET Cyclobenzaprine HCl 5 MG TABLET 1 TAB PO TID PAIN (Reported) Diazepam 5 MG TABLET 1 TAB PO TIDPRN PRN SPASMS (Reported) Folic Acid 1 MG TABLET 1 TAB PO DAILY SUPPLEMENT (Reported) Furosemide 80 MG TABLET 1 TAB PO DAILY WATER RETENTION (Reported) Furosemide 40 MG TABLET 1 TAB PO BID WATER RETENTION (Reported) Insulin Aspart (Novolog) 100 UNIT/ML CARTRIDGE 0 SC TIDAC DIABETES BEFORE MEALS... Blood Insulin Sugar Units <80 0 81-100 0 101-200 0 201-250 2 251-300 3 301-350 4 351-400 5 >400 Call Doctor Insulin Glargine,Hum.rec.anlog (Lantus Solostar) 100 UNIT/ML (3 ML) INSULN.PEN 62 UNIT SC QPM DIABETES (Reported) Insulin Glargine,Hum.rec.anlog (Lantus Solostar) 100 UNIT/ML (3 ML) INSULN.PEN 5 UNIT SC BID DIABETES (Reported) Isosorbide Mononitrate (Isosorbide Mononitrate ER) 60 MG TAB.ER.24H 1 TAB PO DAILY CAD Levothyroxine Sodium 137 MCG TABLET 2 TAB PO DAILY AC THYROID (Reported) Liraglutide (Victoza 3-Zeus) 0.6 MG/0.1 ML (18 MG/3 ML) PEN.INJCTR 1.8 MG SC QPM DIABETES (Reported) Losartan/Hydrochlorothiazide (Losartan-Hctz 100-25 MG Tab) 100 MG-25 MG TABLET 1 TAB PO DAILY HEART (Reported) Metoprolol Tartrate 25 MG TABLET 0.5 TAB PO BID high blood pressure Nut.tx.impaired Renal Fxn,Soy (Nepro Carb Steady) (Unknown Strength) LIQUID 120 ML PO BID UNKNOWN (Reported) Ramelteon (Rozerem) 8 MG TABLET 1 TAB PO AT BEDTIME SLEEP HELP Sennosides/Docusate Sodium (Senna S Tablet) 8.6 MG-50 MG TABLET 2 TAB PO QPM GI (Reported) Sertraline HCl (Zoloft) 100 MG TABLET 1 TAB PO DAILY ANXIETY (Reported) Sevelamer Carbonate (Renvela) 800 MG TABLET 2 TAB PO TIDAC ERSD (Reported) Tamsulosin HCl 0.4 MG CAP.ER.24H 1 CAP PO DAILY PROSTATE (Reported) Ticagrelor (Brilinta) 90 MG TABLET 1 TAB PO BID BLOOD THINNER (Reported) Trazodone HCl 150 MG TABLET 1 TAB PO QPM SLEEP (Reported) Current Medications: Current Medications Sig/Julissa Start time Last Medication Dose Route Stop Time Status Admin Acetaminophen 325 MG Q6P PRN 04/26 1330 AC PO Acetaminophen 1,000 MG Q6P PRN 04/26 1330 AC IV Albuterol Sulfate 3 ML ONCE ONE 04/26 1115 DC 04/26 INH 04/26 1116 1200 Alprazolam 0.5 MG BID PRN 04/26 1430 UNVr PO 05/03 1429 Aspirin Buffered 325 MG QPM 04/26 2200 UNVr PO Atorvastatin Calcium 80 MG QPM 04/26 2200 UNVr PO Budesonide/ 2 PUF BID 04/26 1419 UNVr Formoterol Fumarate INH Clopidogrel Bisulfate 75 MG DAILY 04/26 1419 UNVr PO Cyclobenzaprine HCl 5 MG TID 04/26 1600 UNVr PO Furosemide 40 MG BID 04/26 1419 UNVr PO Heparin Sodium 0 .STK-MED ONE 04/26 1426 DC (Porcine) .ROUTE Heparin Sodium 5,000 UNIT Q8 04/26 1400 AC 04/26 (Porcine) SC 1426 Insulin Aspart 0 TIDAC 04/26 1700 UNVr SC Ipratropium Hibbs 2.5 ML ONCE ONE 04/26 1115 DC 04/26 INH 04/26 1116 1200 Isosorbide 60 MG DAILY 04/26 1420 UNVr Mononitrate PO Ketorolac 30 MG ONCE ONE 04/26 1430 UNVr Tromethamine IV 04/26 1431 Levothyroxine Sodium 0.274 MG DAILY AC 04/26 1420 UNVr PO Metoprolol Tartrate 50 MG BID 04/26 1420 UNVr PO Morphine Sulfate 0 .STK-MED ONE 04/26 1427 CAN .ROUTE Morphine Sulfate 1 MG Q4 04/26 1400 AC IV Ondansetron HCl 0 .STK-MED ONE 04/26 1307 DC .ROUTE Ondansetron HCl 4 MG ONCE ONE 04/26 1300 DC 04/26 IV 04/26 1301 1306 Ondansetron HCl 0 .STK-MED ONE 04/26 1123 DC .ROUTE Ondansetron HCl 4 MG ONCE ONE 04/26 1115 DC 04/26 IV 04/26 1116 1150 Ramelteon 8 MG AT BEDTIME 04/26 2200 UNVr PO Sertraline HCl 100 MG DAILY 04/27 1000 UNVr PO Sodium Chloride 1,000 ML ONCE ONE 04/26 1115 AC 04/26 IV 04/27 0714 1150 Tamsulosin HCl 0.4 MG DAILY 04/27 1000 UNVr PO Ticagrelor 90 MG BID 04/26 2200 UNVr PO Trazodone HCl 150 MG AT BEDTIME 04/26 2200 UNVr PO Trimethobenzamide HCl 200 MG 4 TIMES/DAY PRN 04/26 1430 UNVr IM Review of Systems Review of Systems Constitutional: Reports: chills. Denies: diaphoresis, fever, malaise. EENTM: Denies: double vision, visual changes. Cardiovascular: Denies: chest pain, edema. Respiratory: Denies: cough, orthopnea, short of breath. GI: Reports: nausea (now becoming blood tinged), vomiting. Denies: abdominal pain. Skin: Denies: rash. 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 Ambulation: cane IADLs Independent: shopping, housework, finances, food prep, telephone, transportation , medication admin. Exam & Diagnostic Data Vital Signs and I&O Vital Signs Date Time Temp Pulse Resp B/P B/P Pulse O2 O2 Flow FiO2 Mean Ox Delivery Rate 04/26 1308 98.0 108 20 182/106 96 Nasal 3.0L Cannula 04/26 1200 100 04/26 1135 100 180/100 04/26 1047 100 Room Air 04/26 1041 97.0 105 18 178/93 100 Room Air Intake & Output 04/26 1600 04/26 0400 04/25 0400 04/24 0400 Intake Total Output Total Balance Patient 289 lb Weight Weight Reported by Patient Measurement Method Physical Exam General Appearance: well developed/nourished, moderate distress Head: atraumatic, normal appearance Eyes: Bilateral: PERRL, EOMI, pale conjunctivae. Ears, Nose, Throat: normal pharynx Neck: normal inspection, supple Respiratory: normal breath sounds, chest non-tender, no respiratory distress, lungs clear Cardiovascular: regular rate/rhythm, edema, gallop Gastrointestinal: normal bowel sounds Extremities: normal inspection, normal capillary refill, no edema Neurologic/Psych: no motor/sensory deficits, awake, alert, oriented x 3 Cranial Nerves: normal hearing, normal speech Results Pertinent Lab Results: Laboratory Tests 04/26 1126 Chemistry Sodium (137 - 145 mmol/L) 134 L Potassium (3.5 - 5.1 mmol/L) 4.1 Chloride (98 - 107 mmol/L) 98 Carbon Dioxide (22 - 30 mmol/L) 22 Anion Gap (5 - 16) 14 BUN (9 - 20 mg/dL) 18 Creatinine (0.7 - 1.2 mg/dL) 3.8 H Estimated GFR (>60 ml/min) 16 L BUN/Creatinine Ratio (7 - 25 %) 4.7 L Glucose (65 - 99 mg/dL) 141 H Calcium (8.4 - 10.2 mg/dL) 8.9 Phosphorus (2.5 - 4.5 mg/dL) 1.2 L Total Bilirubin (0.2 - 1.3 mg/dL) 2.1 H AST (17 - 59 U/L) 36 ALT (21 - 72 U/L) 31 Alkaline Phosphatase (< 127 U/L) 119 Troponin I (<0.11 ng/ml) 0.50 *H [id number] Pept (<125 pg/mL) 68970 H Total Protein (6.3 - 8.2 g/dL) 7.0 Albumin (3.5 - 5.0 g/dL) 4.2 Globulin (1.9 - 4.2 gm/dL) 2.8 Albumin/Globulin Ratio (1.1 - 2.2 %) 1.5 Coagulation D-Dimer High Sensitivty (0 - 243 ng/ml) 459 H Hematology CBC w Diff NO MAN DIFF REQ WBC (4.8 - 10.8 /CUMM) 4.0 L RBC (4.70 - 6.10 /CUMM) 3.93 L Hgb (14.0 - 18.0 G/DL) 10.7 L Hct (42 - 52 %) 31.9 L MCV (80.0 - 94.0 FL) 81.1 MCH (27.0 - 31.0 PG) 27.1 RDW (11.5 - 14.5 %) 20.5 H Plt Count (130 - 400 /CUMM) 197 MPV (7.4 - 10.4 FL) 8.5 Gran % (42.2 - 75.2 %) 68.4 Lymphocytes % (20.5 - 51.1 %) 24.4 Monocytes % (1.7 - 9.3 %) 6.5 Eosinophils % (0 - 5 %) 0.1 Basophils % (0.0 - 2.0 %) 0.6 Absolute Granulocytes (1.4 - 6.5 /CUMM) 2.7 Absolute Lymphocytes (1.2 - 3.4 /CUMM) 1.0 L Absolute Monocytes (0.10 - 0.60 /CUMM) 0.3 Absolute Eosinophils (0.0 - 0.7 /CUMM) 0 Absolute Basophils (0.0 - 0.2 /CUMM) 0 PUBS MCHC (33.0 - 37.0 G/DL) 33.5 Imaging/Other Studies: PATIENT: DEEPIKA BRANDT PRESENT AGE: 67 PATIENT ACCOUNT NO: [id number] : 52 LOCATION: [facility] ORDERING PHYSICIAN: TESFAYE MONSON SERVICE DATE: 04/26/17 EXAM TYPE: RAD - XRY-PORTABLE CHEST XRAY EXAMINATION: XR PORTABLE CHEST CLINICAL INFORMATION: Vomiting. Possible aspiration. COMPARISON: Portable chest 04/22/2017, 04/12/2017, 03/31/2017, CT abdomen 04/22/2017. TECHNIQUE: Portable upright AP 85 degree view of the chest was obtained. FINDINGS: There is mild elevation right diaphragm similar to prior studies. Right internal jugular dialysis catheter stable in position. The vascularity is normal. There is no pneumothorax, vascular congestion, or interval airspace consolidation. No visible effusion. Heart size normal. Hilar and mediastinal contours and bony structures are stable. IMPRESSION: Lungs clear. No acute intrathoracic disease. DICTATED BY: GIA TAVERAS MD DATE/TIME DICTATED:04/26/171158 BAKERY DEMONSTRATOR:SAVANA DATE/TIME TRANSCRIBED:04/26/171158 CONFIDENTIAL, DO NOT COPY WITHOUT APPROPRIATE AUTHORIZATION. <Electronically signed in Other Vendor System> SIGNED BY: GIA TAVERAS MD [id number] PATIENT: DEEPIKA BRANDT PRESENT AGE: 67 PATIENT ACCOUNT NO: [id number] : 52 LOCATION: [facility] ORDERING PHYSICIAN: TESFAYE MONSON DO SERVICE DATE: 04/26/17 EXAM TYPE: CAT - CT ABD & PELVIS W/O IV CONTRAS EXAMINATION: CT ABDOMEN AND PELVIS WITHOUT CONTRAST CLINICAL INFORMATION: Vomiting. Assess for obstruction. COMPARISON: CT abdomen and pelvis without contrast 04/22/2017 and 05/30/2015. TECHNIQUE: Multidetector volumetric imaging was performed from the superior aspect of the liver through the pubic symphysis. Sagittal and coronal reformatted images were obtained on the technologist's workstation. No oral or intravenous contrast. DLP: 422 mGy-cm FINDINGS: LUNG BASES: Small bibasilar effusions again seen. Trace pericardial effusion stable. Fissural-based nodules right lateral base stable from prior exam. LIVER, GALLBLADDER, AND BILIARY TREE: The liver is normal in size and smooth in contour. Again, there are some scattered calcified hepatic granulomata dome left lobe. There is no interval hepatic parenchymal lesion or intrahepatic biliary ductal dilatation. The gallbladder is unremarkable with no evidence of radiopaque gallstones, gallbladder wall thickening, or obvious pericholecystic inflammatory changes. PANCREAS: Unremarkable. SPLEEN: Borderline splenic enlargement measuring 13.6 cm. Prior measurement 14.5 cm. ADRENAL GLANDS: Unremarkable. KIDNEYS AND URETERS: There is no hydronephrosis, hydroureter, or perinephric stranding. There are renovascular calcifications. No visible renal or ureteral calculi. Again, there are bilateral renal cysts largest posterior left lower pole 3.2 cm (8 HU attenuation) and medial right upper pole 4.8 cm (7HU attenuation). BLADDER: Unremarkable. GASTROINTESTINAL TRACT: There is no bowel obstruction or focal inflammatory changes in the bowel or mesentery. The appendix is unremarkable. No ascites or fluid collection. ABDOMINAL WALL: No significant hernia is appreciated. LYMPH NODES: No lymphadenopathy. VASCULAR: Extensive coronary artery atherosclerotic calcifications again seen. Atherosclerotic calcifications aorta, iliac arteries, splenic artery, and renal vascular calcifications. PELVIC VISCERA: Unremarkable. OSSEOUS STRUCTURES: No acute bony abnormality. IMPRESSION: 1. No obstruction or focal inflammatory changes abdomen or pelvis. 2. No hydronephrosis or perinephric stranding. DICTATED BY: GIA TAVERAS MD DATE/TIME DICTATED:04/26/171133 BAKERY DEMONSTRATOR:SAVANA DATE/TIME TRANSCRIBED:04/26/171133 CONFIDENTIAL, DO NOT COPY WITHOUT APPROPRIATE AUTHORIZATION. <Electronically signed in Other Vendor System> SIGNED BY: GIA TAVERAS MD 1208 Assessment/Plan Assessment/Recommendations Assessment: 1. Nausea. This is not uremia. The gentleman was dialyzed on Tuesday. In fact, his serum creatinine seems to be the best it's been. Suspect that the nausea represents some GI pathology. He denies a previous history of gastroparesis. His serum creatinine is 3.8. His BUN is 18. Nausea associated with uremia, is generally seen in someone who has missed dialysis for at least 2 -3 weeks. In addition, the serum creatinine I would expect to be 89 or 10 or higher, not 3.8. 2. End-stage renal disease. His usual dialysis will be planned for tomorrow. 3. Coronary artery disease 4. COPD 5. Hypertension Recommendations: 1. Strict intakes and outputs and daily weights. 2. Will plan on dialysis tomorrow. 3. I do not see any urgent dialytic need today. His potassium is 3.8 and his chest x-ray is clear. As discussed above, this is not consistent with any historical presentation for uremia.
--- NOTE | 2017-04-26 15:00 | PN- Student ---
Subjective Subjective: Chief Complaint: vomiting History of Present Illness: Mr. Dodd is a 67-year-old male with past medical history significant for end stage renal disease on hemodialysis (tuesday, , tuesday), COPD not on home O2, Hypertension, Heart failure with reduced ejection fraction, CAD status post 6 stents (last two are drug eluding placed October 2016) on Plavix, Brilinta, and Aspirin, Hyperlipidemia, Insulin dependent DM2 with diabetic neuropathy, Thyroid cancer status post thyroidectomy, and MILES non-compliant with CPAP, presented to [facility] today for intractable vomiting and suprapubic pain 2-12/17. Patient states that after he was discharged from the hospital yesterday he went home, ate dinner, and took his normal night time pills. Patient began to have nasuea and vomit starting at 6am and describes it as bilious. Patient says that he has vomited about 12 times since onset. Currently patient is also short of breath which he attributes to his anxiety. He states he feels weak and currently has "the shakes". He has not taken any of his daily medications today. While in ED found to be in hypertensive urgency BP 182/106. Patient denies chest pain, fever, chills, palpitations, or diarrhea at this time. He has no known sick contacts and no history of similar symptoms or gastroparesis. Patient was due for dialysis today and was last dialyzed on Tuesday. Patient was discharged from [facility] yesterday for hypotension, dizziness, positive troponins, and hyperphosphatemia. Due to hypotension his clonidine, amlodipine, and lasix were discontinued and his metoprolol was decreased to 25mgBID. Past Medical History * ESRD with Left arm AVF placed 01/17/17 * COPD not on home O2 * Hypertension * CAD s/p 6 stents * Hyperlipidemia * PVD * Insulin dependant DM2 with diabetic neuropathy * Thyroid cancer s/p thyroidectomy * MILES non-compliant with CPAP * Heart Failure with reduced EF Past Surgical History * Thyroidectomy * Cardiac stents X6 * Left leg fracture * Elbow fracture * C4-C4 spinal fusion * AV fistula for hemodialysis Medications * Aspirin 81MG PO every night * Lipitor 80mg PO every night * Metoprolol 25mg BID * Symbicort 160 -4.5 Mcg Inhaler 2 Puff through mouth twice daily * Albuterol Sulfate 90MCG HFA 2 Puff inhale through mouth Q4H as needed for SOB * Liraglutide 0.6MG/0.1ML (18MG/3ML) Pen Injector. 1.8 milligram Every night * Trazodone HCL 150Mg at night * Tamsulosin HCL 0.4MG PO daily * Folic acid 1MG PO daily * Alprazolam 0.5MG BID PRN for anxiety * Isosorbide Mononitrate 60MG ER tab 1 Tab PO daily * Synthroid 200 MCG PO daily * Ramelreon 8MG PO at bedtime * Sertraline HCL 100MG PO daily * Clopidogrel Bisulfate 75MG PO daily * Senna S Tablet 8.6MG - 50MG tabled. 2 tablets at night * Novolog 100 unit/ML cartridge. Inject into fatty tissues 3x daily before meals * Metoprolol Tartrate 25mg tablet take 1/2 tabled twice daily Allergies * Iodinated Contrast * Morphine - loopy * Hydromorphine - depressed respiration Social History * No recent travel * Patient lives at home with his girlfriend. He is independent and has visiting nurse and PT * Patient has a cat. No recent bites or scratches. * Patient quit smoking 4 years ago. Used to smoke 4 packs per day for 40 years * Patient denies alcohol use or illicit drug use. Family History Father has history of CAD Review of Systems General: +decreased appetite, + shakes, + fatigue, + malaise. No sweats or fever. Skin: no rash or skin changes apparent. Head: No headache, lightheadedness. Eyes: Patient wears corrective lenses. No visual changes. Ears: No ear pain or hearing changes. Nose/sinuses: No nasal sx. Mouth, throat, neck: No sore throat, hoarness, or swelling. Cardiovascular: No chest pain. Respiratory: + SOB, + cough. GI: No diarrhea, no constipation. Urinary: No flank pain, no frequency. Vascular: No leg edema MSK: No muscle weakness, no joint stiffness. Neurologic: No numbness or tingling Hematologic: No easily bruising Endocrine: No polydipsia/polyphagia, no heat/cold intolerance Psychiatric: + anxiety, + sleep disturbances HOME MEDS Home Med List Alprazolam (Xanax) 0.5 MG TABLET 1 TAB PO BID PRN ANXIETY Amlodipine Besylate 10 MG TABLET 1 TAB PO DAILY HEART (Reported) Aspirin (Ecotrin*) 325 MG TABLET.DR 1 TAB PO QPM CAD (Reported) Atorvastatin Calcium (Lipitor) 80 MG TABLET 1 TAB PO QPM CHOLESTEROL ( Reported) Budesonide/Formoterol Fumarate (Symbicort 160-4.5 Mcg Inhaler) 160 MCG-4.5 MCG/ ACTUATION HFA.AER.AD 2 PUF INH BID COPD Clonidine HCl 0.1 MG TABLET 1 TAB PO BID UNKNOWN (Reported) Clopidogrel Bisulfate (Plavix) 75 MG TABLET 75 MG PO DAILY ANTIPLATELET Cyclobenzaprine HCl 5 MG TABLET 1 TAB PO TID PAIN (Reported) Diazepam 5 MG TABLET 1 TAB PO TIDPRN PRN SPASMS (Reported) Folic Acid 1 MG TABLET 1 TAB PO DAILY SUPPLEMENT (Reported) Furosemide 80 MG TABLET 1 TAB PO DAILY WATER RETENTION (Reported) Furosemide 40 MG TABLET 1 TAB PO BID WATER RETENTION (Reported) Insulin Aspart (Novolog) 100 UNIT/ML CARTRIDGE 0 SC TIDAC DIABETES Insulin Glargine,Hum.rec.anlog (Lantus Solostar) 100 UNIT/ML (3 ML) INSULN.PEN 62 UNIT SC QPM DIABETES (Reported) Insulin Glargine,Hum.rec.anlog (Lantus Solostar) 100 UNIT/ML (3 ML) INSULN.PEN 5 UNIT SC BID DIABETES (Reported) Isosorbide Mononitrate (Isosorbide Mononitrate ER) 60 MG TAB.ER.24H 1 TAB PO DAILY CAD Levothyroxine Sodium 137 MCG TABLET 2 TAB PO DAILY AC THYROID (Reported) Liraglutide (Victoza 3-Zeus) 0.6 MG/0.1 ML (18 MG/3 ML) PEN.INJCTR 1.8 MG SC QPM DIABETES (Reported) Losartan/Hydrochlorothiazide (Losartan-Hctz 100-25 MG Tab) 100 MG-25 MG TABLET 1 TAB PO DAILY HEART (Reported) Metoprolol Tartrate 25 MG TABLET 0.5 TAB PO BID high blood pressure Nut.tx.impaired Renal Fxn,Soy (Nepro Carb Steady) (Unknown Strength) LIQUID 120 ML PO BID UNKNOWN (Reported) Ramelteon (Rozerem) 8 MG TABLET 1 TAB PO AT BEDTIME SLEEP HELP Sennosides/Docusate Sodium (Senna S Tablet) 8.6 MG-50 MG TABLET 2 TAB PO QPM GI (Reported) Sertraline HCl (Zoloft) 100 MG TABLET 1 TAB PO DAILY ANXIETY (Reported) Sevelamer Carbonate (Renvela) 800 MG TABLET 2 TAB PO TIDAC ERSD (Reported) Tamsulosin HCl 0.4 MG CAP.ER.24H 1 CAP PO DAILY PROSTATE (Reported) Ticagrelor (Brilinta) 90 MG TABLET 1 TAB PO BID BLOOD THINNER (Reported) Trazodone HCl 150 MG TABLET 1 TAB PO QPM SLEEP (Reported) Discontinued Medications Clonidine HCl 0.1 MG TABLET 1 TAB PO BID BP (Reported) Discontinued reason: Low Blood Pressure Furosemide (Lasix) 40 MG TABLET 80 MG PO DAILY diuresis Discontinued reason: Med no longer needed Insulin Glargine,Hum.rec.anlog (Lantus Solostar) 100 UNIT/ML (3 ML) INSULN.PEN 5 UNIT SC BID DIABETES (Reported) Discontinued reason: Changed to different med Metoprolol Tartrate 100 MG TABLET 1 TAB PO DAILY HEART (Reported) Discontinued reason: Changed Dose Sevelamer Carbonate (Renvela) 800 MG TABLET 2 TAB PO WM ESRD (Reported) Discontinued reason: Changed Dose Objective Objective: Vitals on admission T: 98, P 104, RR 20, BP 182/106, O2 SAT 96% on 3L Nasal cannula Physical Exam General: Mr. Dodd is a middle aged white male who is in mild distress bent over on bed retching. He is short of breath and anxious. Skin: Skin warm and dry without visible bruises, rashes, or cyanosis HEENT -Head: Normocephalic atraumatic -Eyes: PEERLA. EOMI. Conjunctiva not injected. -Ears: Hearing grossly intact. -Nose: Nares patent. -Mouth/throat: Mouth pink. Uvula midline. Throat without injection or exudates. Neck: Non-tender Cardiovascular: Normal S1 S2. Normal rhythm, tachycardic, no murmurs, rubs, or gallops. Radial pulse 2+ bilaterally Lungs: Decreased sounds bilaterally Abdomen: Normal abdominal bowel sounds. Tender to palpatin in suprapubic area. Genitourinary: Not done MSK: Not done Extremities: No pedal edema bilaterally, no clubbing. Left upper extremty fistula. Lymphatic: no cervical, parasternal, or supraclavicular lymphnodes noted. Neurologic: Awake and oriented x3. No gross neurological deficits. Pertinent Labs WBC 4.0L, RBC 3.93L, Hgb 10.7L, Hct 31.9L D-dimer 459 NA 134L, BUN 18 N,Creatinine 3.8H, Glucose 141, Phosphorus 1.2L, Total bilirubin 2.1H Troponin 0.50H, BNP [id number] EKG Sinus tachycardia, no significant ST-T wave changes, QTC 480 Chest X-ray - Portable Lungs clear. No acute intrathoracic disease. CT of Abdomen and Pelvis 1. No obstruction or focal inflammatory changes abdomen or pelvis. 2. No hydronephrosis or perinephric stranding. Results Results: Laboratory Tests 04/26/17 1126: Anion Gap 14, Estimated GFR 16 L, BUN/Creatinine Ratio 4.7 L, Glucose 141 H, Calcium 8.9, Phosphorus 1.2 L, Total Bilirubin 2.1 H, AST 36, ALT 31, Alkaline Phosphatase 119, Troponin I 0.50 *H, Btp-P-Fsiulukxwab Pept 93427 H, Total Protein 7.0, Albumin 4.2, Globulin 2.8, Albumin/Globulin Ratio 1.5, D-Dimer High Sensitivty 459 H, CBC w Diff NO MAN DIFF REQ, RBC 3.93 L, MCV 81.1, MCH 27.1, RDW 20.5 H, MPV 8.5, Gran % 68.4, Lymphocytes % 24.4, Monocytes % 6.5, Eosinophils % 0.1, Basophils % 0.6, Absolute Granulocytes 2.7, Absolute Lymphocytes 1.0 L, Absolute Monocytes 0.3, Absolute Eosinophils 0, Absolute Basophils 0, PUBS MCHC 33.5 Assessment/Plan Assessment: Mr. Dodd is a 67-year-old male with past medical history significant for end stage renal disease on hemodialysis (tuesday, , tuesday), COPD not on home O2, Hypertension, Heart failure with reduced ejection fraction, CAD status post 6 stents (last two are drug eluding placed October 2016) on Plavix, Brilinta, and Aspirin, Hyperlipidemia, Insulin dependent DM2 with diabetic neuropathy, Thyroid cancer status post thyroidectomy, and MILES non-compliant with CPAP, presented to [facility] ED today for intractable vomiting, suprapubic pain, and shortness. Was found to be in hypertensive urgency on arrival. CXR and CT abdomen and pelvis were unrevealing. Problem List 1. Nausea and Vomiting 2. Hypertensive urgency 3. Acute shortness of breath 4. Elevated troponins 5. Heart failure with reduced EF 6. End-stage renal disease on hemodialysis 7. Insulin dependent DM2 8. History of CAD status post 6 stents 9. History of anxiety 10. History of COPD 11. DVT prophylaxis Plan: 1. Nausea and Vomiting * Nephrology recommendations - BUN 18 and creatinine 3.8 - Unlikely to be uremia. - Dialysis tomorrow. - Strict input and outputs and daily weights. * CT negative for any acute findings * IV Tigan 4 times/day PRN for nausea/vomiting * Toradol PRN for abdominal pain 2. Hypertensive urgency * Resume metroprolol at 50mg BID * Restart Lasix 40 mg BID 3. Acute shortness of breath * Differentials include, anxiety, COPD exacerbation, Fluid overload, or PE * PE unlikely due to D-Dimer value * CXR negative for any acute process * Continue home Xanax for anxiety 4. Elevated troponins * Likely due to chronic kidney disease and demand ischemia * No new EKG changes * Similiar to last admission * Cardiology recommendations -Monitor on telemetry -Check repeat troponin -Repeat EKG in the morning * 3 sets of troponin and EKG to rule out ACS 5. Heart failure with reduced EF * Monitor intake and outake * Continue home lasix * Monitor BP 6. End-stage renal disease on hemodialysis * Dialysis scheduled for tomorrow 7. Insulin dependent DM2 * Daily accuchecks * Endocrinology recommendation -Novolog sliding scale Bolus Insulin: Novolog < 80 mg/dl: no coverage 80-100 mg/dl: no coverage 101-120 mg/dl: no coverage 121-150 mg/dl: no coverage 151-200 mg/dl: no coverage 201-250 mg/dl: no coverage 251-300 mg/dl: 2 units 301-350 mg/dl: 4 units 351-400 mg/dl: 6 units > 400 mg/dl: 8 units 8. History of CAD status post 6 stents * Continue home Asprin 325mg daily, Atorvastatin 80mg QPM, Brilinta 90mg BID, Plavix 75MG daily, and Imdur 60mg daily. 9. History of Anxiety * Continue home Setraline 100mg dailym [place]elton 8mg at bed, Trazodone 150mg at bed, and Alprazolam .5mg BID PRN 10. History of COPD * Continue home symbicort and albuterol. 11. DVT prophylaxis * Heparin Diet: Diabetic Code Status: Full
[2017-04-26 17:21] VITALS: BP 134/80
--- NOTE | 2017-04-26 17:26 | NUR ---
PT SCORES 7 ON FALL ASSESSMENT; PT IS REFUSING RED SOCKS, BED ALARM, ALPS. NEURODIAGNOSTIC TECH VERONICA AWARE.
--- NOTE | 2017-04-26 19:04 | Cons- Cardiology ---
General Information and HPI Consulting Request Date of Consult: 04/26/17 Requested By: JESSE ELDRIDGE,ANMOL Reason for Consult: CAD, vomiting History of Present Illness: the patient is a 67-year-old male with history of CAD, diabetes mellitus, ESRD on HD, COPD, status post drug-eluting stent placement x2 in October 2016. he is followed for her cardiology issues by Dr. Lee. His left ventricular ejection fraction is 45 to 50%. He was previously admitted with hypotension and mild troponin elevation, and was discharged yesterday. During his prior admission he had a coag-negative staph infection of his catheter. He was feeling well at the time of his discharge yesterday, however this morning he awoke with severe nausea and vomiting. No chest pain. No current shortness of breath. No diaphoresis. No palpitations. Allergies/Medications Allergies: Coded Allergies: Iodinated Contrast- Oral and IV Dye (PER PT STATES HIS KIDNEYS ARE SHOT HE IS ON DIALYSIS 03/27/17) morphine (Mild, LOOPY 01/18/17) hydromorphone (DEPRESSED RESPIRATIONS 01/18/17) Home Med List: Alprazolam (Xanax) 0.5 MG TABLET 1 TAB PO BID PRN ANXIETY Amlodipine Besylate 10 MG TABLET 1 TAB PO DAILY HEART (Reported) Aspirin (Ecotrin*) 325 MG TABLET.DR 1 TAB PO QPM CAD (Reported) Atorvastatin Calcium (Lipitor) 80 MG TABLET 1 TAB PO QPM CHOLESTEROL ( Reported) Budesonide/Formoterol Fumarate (Symbicort 160-4.5 Mcg Inhaler) 160 MCG-4.5 MCG/ ACTUATION HFA.AER.AD 2 PUF INH BID COPD Rinse your mouth after using inhaler. Clonidine HCl 0.1 MG TABLET 1 TAB PO BID UNKNOWN (Reported) Clopidogrel Bisulfate (Plavix) 75 MG TABLET 75 MG PO DAILY ANTIPLATELET Cyclobenzaprine HCl 5 MG TABLET 1 TAB PO TID PAIN (Reported) Diazepam 5 MG TABLET 1 TAB PO TIDPRN PRN SPASMS (Reported) Folic Acid 1 MG TABLET 1 TAB PO DAILY SUPPLEMENT (Reported) Furosemide 80 MG TABLET 1 TAB PO DAILY WATER RETENTION (Reported) Furosemide 40 MG TABLET 1 TAB PO BID WATER RETENTION (Reported) Insulin Aspart (Novolog) 100 UNIT/ML CARTRIDGE 0 SC TIDAC DIABETES BEFORE MEALS... Blood Insulin Sugar Units <80 0 81-100 0 101-200 0 201-250 2 251-300 3 301-350 4 351-400 5 >400 Call Doctor Insulin Glargine,Hum.rec.anlog (Lantus Solostar) 100 UNIT/ML (3 ML) INSULN.PEN 62 UNIT SC QPM DIABETES (Reported) Insulin Glargine,Hum.rec.anlog (Lantus Solostar) 100 UNIT/ML (3 ML) INSULN.PEN 5 UNIT SC BID DIABETES (Reported) Isosorbide Mononitrate (Isosorbide Mononitrate ER) 60 MG TAB.ER.24H 1 TAB PO DAILY CAD Levothyroxine Sodium 137 MCG TABLET 2 TAB PO DAILY AC THYROID (Reported) Liraglutide (Victoza 3-Zeus) 0.6 MG/0.1 ML (18 MG/3 ML) PEN.INJCTR 1.8 MG SC QPM DIABETES (Reported) Losartan/Hydrochlorothiazide (Losartan-Hctz 100-25 MG Tab) 100 MG-25 MG TABLET 1 TAB PO DAILY HEART (Reported) Metoprolol Tartrate 25 MG TABLET 0.5 TAB PO BID high blood pressure Nut.tx.impaired Renal Fxn,Soy (Nepro Carb Steady) (Unknown Strength) LIQUID 120 ML PO BID UNKNOWN (Reported) Ramelteon (Rozerem) 8 MG TABLET 1 TAB PO AT BEDTIME SLEEP HELP Sennosides/Docusate Sodium (Senna S Tablet) 8.6 MG-50 MG TABLET 2 TAB PO QPM GI (Reported) Sertraline HCl (Zoloft) 100 MG TABLET 1 TAB PO DAILY ANXIETY (Reported) Sevelamer Carbonate (Renvela) 800 MG TABLET 2 TAB PO TIDAC ERSD (Reported) Tamsulosin HCl 0.4 MG CAP.ER.24H 1 CAP PO DAILY PROSTATE (Reported) Ticagrelor (Brilinta) 90 MG TABLET 1 TAB PO BID BLOOD THINNER (Reported) Trazodone HCl 150 MG TABLET 1 TAB PO QPM SLEEP (Reported) Current Medications: Current Medications Sig/Julissa Start time Last Medication Dose Route Stop Time Status Admin Acetaminophen 325 MG Q6P PRN 04/26 1330 AC PO Acetaminophen 1,000 MG Q6P PRN 04/26 1330 AC IV Albuterol Sulfate 3 ML ONCE ONE 04/26 1115 DC 04/26 INH 04/26 1116 1200 Alprazolam 0.5 MG BID PRN 04/26 1430 AC PO 05/03 1429 Aspirin Buffered 325 MG QPM 04/26 2200 AC PO Atorvastatin Calcium 80 MG QPM 04/26 2200 AC PO Budesonide/ 2 PUF BID 04/26 1419 AC Formoterol Fumarate INH Clopidogrel Bisulfate 75 MG DAILY 04/26 1419 AC PO Cyclobenzaprine HCl 5 MG TID 04/26 1600 AC PO Furosemide 40 MG BID 04/26 1419 AC PO Heparin Sodium 0 .STK-MED ONE 04/26 1426 DC (Porcine) .ROUTE Heparin Sodium 5,000 UNIT Q8 04/26 1400 AC 04/26 (Porcine) SC 1426 Insulin Aspart 0 AC 04/27 0700 DC SC Insulin Aspart 0 TIDAC 04/26 1745 AC SC Insulin Aspart 0 TIDAC 04/26 1700 CAN SC Ipratropium [place] 2.5 ML ONCE ONE 04/26 1115 DC 04/26 INH 04/26 1116 1200 Isosorbide 60 MG DAILY 04/26 1420 AC Mononitrate PO Ketorolac 0 .STK-MED ONE 04/26 1449 DC Tromethamine .ROUTE Ketorolac 30 MG ONCE ONE 04/26 1430 DC 04/26 Tromethamine IV 04/26 1431 1447 Levothyroxine Sodium 0.274 MG DAILY AC 04/26 1420 AC PO Lorazepam 0.5 MG ONCE ONE 04/26 1515 DC 04/26 IV 04/26 1516 1522 Metoprolol Tartrate 50 MG BID 04/26 1420 AC PO Morphine Sulfate 0 .STK-MED ONE 04/26 1427 CAN .ROUTE Morphine Sulfate 1 MG Q4 04/26 1400 DC IV Ondansetron HCl 0 .STK-MED ONE 04/26 1307 DC .ROUTE Ondansetron HCl 4 MG ONCE ONE 04/26 1300 DC 04/26 IV 04/26 1301 1306 Ondansetron HCl 0 .STK-MED ONE 04/26 1123 DC .ROUTE Ondansetron HCl 4 MG ONCE ONE 04/26 1115 DC 04/26 IV 04/26 1116 1150 Ramelteon 8 MG AT BEDTIME 04/26 2200 AC PO Sertraline HCl 100 MG DAILY 04/27 1000 AC PO Sodium Chloride 1,000 ML ONCE ONE 04/26 1115 AC 04/26 IV 04/27 0714 1150 Tamsulosin HCl 0.4 MG DAILY 04/27 1000 AC PO Ticagrelor 90 MG BID 04/26 2200 AC PO Trazodone HCl 150 MG AT BEDTIME 04/26 220 AC PO Trimethobenzamide HCl 200 MG 4 TIMES/DAY PRN 04/26 1430 AC 04/26 IM 1522 Review of Systems Review of Systems: No rash. No tremor. No melena. All other systems are reviewed and are noted to be negative Past History Travel History Traveled to [place] past 21 day No Medical History Blood Transfusion Hx: Yes Neurological: NONE EENT: NONE Cardiovascular: CAD, hypertension, hyperlipidemia, PVD, 6 CARDIAC STENTS Respiratory: COPD Gastrointestinal: NONE Hepatic: NONE Renal: chronic kidney disease, L ARM AVF PLACED 01/17/17 Musculoskeletal: chronic back pain, ?BACK PROBLEM REQUIRE SX Psychiatric: NONE Endocrine: diabetes Blood Disorders: NONE Cancer(s): THYROID CA SURGICAL RN/Reproductive: NONE Surgical History Surgical History: CARDIAC STENTS X 6 THYROIDECTOMY LEFT LEG FX REPAIR ELBOW FX REPAIR SPINAL FUSION C4-C5 AV fistula Family History Relations & Conditions If Any: FATHER FH: heart disease Relation not specified for: FH: diabetes mellitus FH: hypertension Psychosocial History Where Do You Live? Home Services at Home: Physical Therapy Smoking Status: Former Smoker Functional Ability ADLs Independent: dressing, eating, toileting, bathing. Ambulation: cane IADLs Independent: shopping, housework, finances, food prep, telephone, transportation , medication admin. Exam & Diagnostic Data Vital Signs and I&O Vital Signs Date Time Temp Pulse Resp B/P B/P Pulse O2 O2 Flow FiO2 Mean Ox Delivery Rate 04/26 1721 97.8 106 16 134/80 100 Room Air 04/26 1538 94 Room Air 04/26 1447 98.2 110 26 177/104 97 Room Air 04/26 1308 98.0 108 20 182/106 96 Nasal 3.0L Cannula 04/26 1200 100 04/26 1135 100 180/100 04/26 1047 100 Room Air 04/26 1041 97.0 105 18 178/93 100 Room Air Intake & Output 04/26 1600 04/26 0800 04/26 0000 04/25 1600 04/25 0800 04/25 0000 Intake Total Output Total Balance Patient 189 lb Weight Weight Reported by Patient Measurement Method Physical Exam: Gen: The patient is in no acute distress HEENT: Normal nose, ears, and oropharynx. Pupils equal bilaterally. Conjunctiva normal. Neck: Supple with no JVD, no masses, and no thyromegaly Lungs: Clear to auscultation with normal respiratory effort Heart: RRR, S1, S2, 1/6 systolic murmur. No peripheral edema, 2+ pulses in the lower extremities bilaterally Abdomen: Soft, nontender, no masses. No hepatomegaly. No splenomegaly Extremities: No clubbing or cyanosis. Normal muscle strength in the upper and lower extremities. Skin: Normal skin turgor with no skin ulcers or lesions noted. Neuro: Cranial nerves intact. Sensation intact Psych: Alert and oriented 3 with appropriate affect Labs/Angus Results: Laboratory Tests 04/26 1126 Chemistry Sodium (137 - 145 mmol/L) 134 L Potassium (3.5 - 5.1 mmol/L) 4.1 Chloride (98 - 107 mmol/L) 98 Carbon Dioxide (22 - 30 mmol/L) 22 Anion Gap (5 - 16) 14 BUN (9 - 20 mg/dL) 18 Creatinine (0.7 - 1.2 mg/dL) 3.8 H Estimated GFR (>60 ml/min) 16 L BUN/Creatinine Ratio (7 - 25 %) 4.7 L Glucose (65 - 99 mg/dL) 141 H Calcium (8.4 - 10.2 mg/dL) 8.9 Phosphorus (2.5 - 4.5 mg/dL) 1.2 L Total Bilirubin (0.2 - 1.3 mg/dL) 2.1 H AST (17 - 59 U/L) 36 ALT (21 - 72 U/L) 31 Alkaline Phosphatase (< 127 U/L) 119 Troponin I (<0.11 ng/ml) 0.50 *H [id number] Pept (<125 pg/mL) 91617 H Total Protein (6.3 - 8.2 g/dL) 7.0 Albumin (3.5 - 5.0 g/dL) 4.2 Globulin (1.9 - 4.2 gm/dL) 2.8 Albumin/Globulin Ratio (1.1 - 2.2 %) 1.5 Coagulation D-Dimer High Sensitivty (0 - 243 ng/ml) 459 H Hematology CBC w Diff NO MAN DIFF REQ WBC (4.8 - 10.8 /CUMM) 4.0 L RBC (4.70 - 6.10 /CUMM) 3.93 L Hgb (14.0 - 18.0 G/DL) 10.7 L Hct (42 - 52 %) 31.9 L MCV (80.0 - 94.0 FL) 81.1 MCH (27.0 - 31.0 PG) 27.1 RDW (11.5 - 14.5 %) 20.5 H Plt Count (130 - 400 /CUMM) 197 MPV (7.4 - 10.4 FL) 8.5 Gran % (42.2 - 75.2 %) 68.4 Lymphocytes % (20.5 - 51.1 %) 24.4 Monocytes % (1.7 - 9.3 %) 6.5 Eosinophils % (0 - 5 %) 0.1 Basophils % (0.0 - 2.0 %) 0.6 Absolute Granulocytes (1.4 - 6.5 /CUMM) 2.7 Absolute Lymphocytes (1.2 - 3.4 /CUMM) 1.0 L Absolute Monocytes (0.10 - 0.60 /CUMM) 0.3 Absolute Eosinophils (0.0 - 0.7 /CUMM) 0 Absolute Basophils (0.0 - 0.2 /CUMM) 0 PUBS MCHC (33.0 - 37.0 G/DL) 33.5 Diagnostic Data EKG Results EKG tracing is independently reviewed, and reveals sinus tachycardia at 109 with incomplete left bundle branch block CXR Results Lungs clear. No acute intrathoracic disease. Other Results CT scan of the abdomen and pelvis: 1. No obstruction or focal inflammatory changes abdomen or pelvis. 2. No hydronephrosis or perinephric stranding. Assessment/Plan Assessment/Plan Assessment: 1. Coronary artery disease 2. recent admission with mild troponin elevation 3. End-stage renal disease 4. Recent coag-negative staph bacteremia 5. nausea and vomiting, uncertain etiology. Possible gastroparesis plan: * Monitor on telemetry * Check repeat troponin * Repeat EKG in the morning Consult Acknowledgment - Thank you for your consult request.
--- NOTE | 2017-04-26 21:33 | Cons- Endocrinology ---
General Information and HPI Consulting Request Date of Consult: 04/26/17 Requested By: medical team Reason for Consult: management of DM type 2 Source of Information: patient, old records Exam Limitations: no limitations History of Present Illness: 67 y/o male, hx of diabetes type 2, ESRD on HD, thyroid cancer s/p total thyroidectomy, hypothyroidism, HTN, caediomyopathy, CHF and recent coagulase- negative staph sepsis, was in hospital over the weekend for hypotension and was readmitted for significant nausea, vomiting , SOB and hypertension. I was asked to see him for DM managment. During previous admission, his DM regimen was adjusted. He was discharged home on Victoza 1.8 mg daily and low dose Novolog coverage at meal time. Allergies/Medications Allergies: Coded Allergies: Iodinated Contrast- Oral and IV Dye (PER PT STATES HIS KIDNEYS ARE SHOT HE IS ON DIALYSIS 03/27/17) morphine (Mild, LOOPY 01/18/17) hydromorphone (DEPRESSED RESPIRATIONS 01/18/17) Home Med List: Alprazolam (Xanax) 0.5 MG TABLET 1 TAB PO BID PRN ANXIETY Amlodipine Besylate 10 MG TABLET 1 TAB PO DAILY HEART (Reported) Aspirin (Ecotrin*) 325 MG TABLET.DR 1 TAB PO QPM CAD (Reported) Atorvastatin Calcium (Lipitor) 80 MG TABLET 1 TAB PO QPM CHOLESTEROL ( Reported) Budesonide/Formoterol Fumarate (Symbicort 160-4.5 Mcg Inhaler) 160 MCG-4.5 MCG/ ACTUATION HFA.AER.AD 2 PUF INH BID COPD Rinse your mouth after using inhaler. Clonidine HCl 0.1 MG TABLET 1 TAB PO BID UNKNOWN (Reported) Clopidogrel Bisulfate (Plavix) 75 MG TABLET 75 MG PO DAILY ANTIPLATELET Cyclobenzaprine HCl 5 MG TABLET 1 TAB PO TID PAIN (Reported) Diazepam 5 MG TABLET 1 TAB PO TIDPRN PRN SPASMS (Reported) Folic Acid 1 MG TABLET 1 TAB PO DAILY SUPPLEMENT (Reported) Furosemide 80 MG TABLET 1 TAB PO DAILY WATER RETENTION (Reported) Furosemide 40 MG TABLET 1 TAB PO BID WATER RETENTION (Reported) Insulin Aspart (Novolog) 100 UNIT/ML CARTRIDGE 0 SC TIDAC DIABETES BEFORE MEALS... Blood Insulin Sugar Units <80 0 81-100 0 101-200 0 201-250 2 251-300 3 301-350 4 351-400 5 >400 Call Doctor Insulin Glargine,Hum.rec.anlog (Lantus Solostar) 100 UNIT/ML (3 ML) INSULN.PEN 62 UNIT SC QPM DIABETES (Reported) Insulin Glargine,Hum.rec.anlog (Lantus Solostar) 100 UNIT/ML (3 ML) INSULN.PEN 5 UNIT SC BID DIABETES (Reported) Isosorbide Mononitrate (Isosorbide Mononitrate ER) 60 MG TAB.ER.24H 1 TAB PO DAILY CAD Levothyroxine Sodium 137 MCG TABLET 2 TAB PO DAILY AC THYROID (Reported) Liraglutide (Victoza 3-Zeus) 0.6 MG/0.1 ML (18 MG/3 ML) PEN.INJCTR 1.8 MG SC QPM DIABETES (Reported) Losartan/Hydrochlorothiazide (Losartan-Hctz 100-25 MG Tab) 100 MG-25 MG TABLET 1 TAB PO DAILY HEART (Reported) Metoprolol Tartrate 25 MG TABLET 0.5 TAB PO BID high blood pressure Nut.tx.impaired Renal Fxn,Soy (Nepro Carb Steady) (Unknown Strength) LIQUID 120 ML PO BID UNKNOWN (Reported) Ramelteon (Rozerem) 8 MG TABLET 1 TAB PO AT BEDTIME SLEEP HELP Sennosides/Docusate Sodium (Senna S Tablet) 8.6 MG-50 MG TABLET 2 TAB PO QPM GI (Reported) Sertraline HCl (Zoloft) 100 MG TABLET 1 TAB PO DAILY ANXIETY (Reported) Sevelamer Carbonate (Renvela) 800 MG TABLET 2 TAB PO TIDAC ERSD (Reported) Tamsulosin HCl 0.4 MG CAP.ER.24H 1 CAP PO DAILY PROSTATE (Reported) Ticagrelor (Brilinta) 90 MG TABLET 1 TAB PO BID BLOOD THINNER (Reported) Trazodone HCl 150 MG TABLET 1 TAB PO QPM SLEEP (Reported) Review of Systems Review of Systems Constitutional: Reports: see HPI. Cardiovascular: Reports: orthopena, palpitations. Respiratory: Reports: short of breath. GI: Reports: nausea, vomiting. Hematologic/Endocrine: Denies: polyuria, polydipsia. 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 Home Who Do You Live With? spouse Services at Home: Physical Therapy Smoking Status: Former Smoker Functional Ability ADLs Independent: dressing, eating, toileting, bathing. Ambulation: cane IADLs Independent: shopping, housework, finances, food prep, telephone, transportation , medication admin. ECHO Results (as available) EF% 50 Exam & Diagnostic Data Last 24 Hrs of Vital Signs/I&O Vital Signs Date Time Temp Pulse Resp B/P B/P Pulse O2 O2 Flow FiO2 Mean Ox Delivery Rate 04/26 1905 106 134/80 04/26 1721 97.8 106 16 134/80 100 Room Air 04/26 1538 94 Room Air 04/26 1447 98.2 110 26 177/104 97 Room Air 04/26 1308 98.0 108 20 182/106 96 Nasal 3.0L Cannula 04/26 1200 100 04/26 1135 100 180/100 04/26 1047 100 Room Air 04/26 1041 97.0 105 18 178/93 100 Room Air Intake & Output 04/26 1600 04/26 0800 04/26 0000 Intake Total Output Total Balance Patient 189 lb Weight Weight Reported by Patient Measurement Method Physical Exam General Appearance: mild distress Neck: normal inspection Respiratory: decreased breath sounds Cardiovascular: regular rate/rhythm Gastrointestinal: distention Extremities: no edema Labs/Angus Results: Laboratory Tests 04/26 1126 Chemistry Sodium (137 - 145 mmol/L) 134 L Potassium (3.5 - 5.1 mmol/L) 4.1 Chloride (98 - 107 mmol/L) 98 Carbon Dioxide (22 - 30 mmol/L) 22 Anion Gap (5 - 16) 14 BUN (9 - 20 mg/dL) 18 Creatinine (0.7 - 1.2 mg/dL) 3.8 H Estimated GFR (>60 ml/min) 16 L BUN/Creatinine Ratio (7 - 25 %) 4.7 L Glucose (65 - 99 mg/dL) 141 H Calcium (8.4 - 10.2 mg/dL) 8.9 Phosphorus (2.5 - 4.5 mg/dL) 1.2 L Total Bilirubin (0.2 - 1.3 mg/dL) 2.1 H AST (17 - 59 U/L) 36 ALT (21 - 72 U/L) 31 Alkaline Phosphatase (< 127 U/L) 119 Troponin I (<0.11 ng/ml) 0.50 *H [id number] Pept (<125 pg/mL) 40026 H Total Protein (6.3 - 8.2 g/dL) 7.0 Albumin (3.5 - 5.0 g/dL) 4.2 Globulin (1.9 - 4.2 gm/dL) 2.8 Albumin/Globulin Ratio (1.1 - 2.2 %) 1.5 Coagulation D-Dimer High Sensitivty (0 - 243 ng/ml) 459 H Hematology CBC w Diff NO MAN DIFF REQ WBC (4.8 - 10.8 /CUMM) 4.0 L RBC (4.70 - 6.10 /CUMM) 3.93 L Hgb (14.0 - 18.0 G/DL) 10.7 L Hct (42 - 52 %) 31.9 L MCV (80.0 - 94.0 FL) 81.1 MCH (27.0 - 31.0 PG) 27.1 RDW (11.5 - 14.5 %) 20.5 H Plt Count (130 - 400 /CUMM) 197 MPV (7.4 - 10.4 FL) 8.5 Gran % (42.2 - 75.2 %) 68.4 Lymphocytes % (20.5 - 51.1 %) 24.4 Monocytes % (1.7 - 9.3 %) 6.5 Eosinophils % (0 - 5 %) 0.1 Basophils % (0.0 - 2.0 %) 0.6 Absolute Granulocytes (1.4 - 6.5 /CUMM) 2.7 Absolute Lymphocytes (1.2 - 3.4 /CUMM) 1.0 L Absolute Monocytes (0.10 - 0.60 /CUMM) 0.3 Absolute Eosinophils (0.0 - 0.7 /CUMM) 0 Absolute Basophils (0.0 - 0.2 /CUMM) 0 PUBS MCHC (33.0 - 37.0 G/DL) 33.5 Assessment/Plan Assessment/Plan 67 y/o male, hx of diabetes type 2, ESRD on HD, thyroid cancer s/p total thyroidectomy, hypothyroidism, HTN, caediomyopathy, CHF and recent coagulase- negative staph sepsis, was in hospital over the weekend for hypotension and was readmitted for significant nausea, vomiting , SOB and hypertension. DM regimen: As patient still has significant nausea, I have recommended Novolog coverage before meals-- detail see the insulin order sheet; Victoza will be held; monitor FSGs and electrolytes; will follow. Inpatient Diabetes Orders Before Each Meal: Bolus Insulin: Novolog < 80 mg/dl: no coverage 80-100 mg/dl: no coverage 101-120 mg/dl: no coverage 121-150 mg/dl: no coverage 151-200 mg/dl: no coverage 201-250 mg/dl: no coverage 251-300 mg/dl: 2 units 301-350 mg/dl: 4 units 351-400 mg/dl: 6 units > 400 mg/dl: 8 units Consult Acknowledgment - Thank you for your consult request.
[2017-04-26 22:40] VITALS: BP 112/74
--- NOTE | 2017-04-26 23:26 | NUR ---
SINCE 1900, PT DRY HEAVING AND VOMITING A TOTAL OF 100ML CLEAR YELLOW EMESIS. UNABLE TO LAY DOWN DUE TO FEELING EXTREME NAUSEA. NOT TOLERATING PO MEDS. VS: 112/74, HR 130-140S. TEMP 98.1, RR 24 SAT 100% ON RA. DR. JIMENEZ AWARE THAT PATIENT IS STILL VERY NAUSEOUS AND VOMITING AFTER IM TIGAN, IV REGLAN AND IV ZOFRAN. HR REMAINS IN THE 130S. PT STATING "SOMEBODY NEEDS TO HELP ME AND STOP THIS.". UNDER 4 BLANKETS, WITH WARM PACKS, AND DRINKING HOT WATER TO WARM UP. ALSO EXPERIENCING RIGORS. STILL UNABLE TO DRAW 1800 OR MIDNIGHT TROPONIN ON PATIENT DUE TO BEING DIFFICULT STICK. DR. JIMENEZ AWARE.
--- NOTE | 2017-04-26 23:47 | Admission Certification ---
Admission Certification Certification Statement - As attending physician, I certify that at the time of - admission, based on clinical presentation, severity of - symptoms, need for further diagnostic testing and - therapeutic interventions, and risk of adverse outcomes - without in-hospital treatment, in my clinical assessment, - this patient requires an acute hospital stay for a minimum - of two nights or longer. I have also considered psychsocial - factors such as support system, advanced age, financial - issues, cognitive issues, and failed out-patient treatments, - past re-admission history, safety of patient, and lack of - compliance as applicable. Specific rationale supporting this admission is: The patient was admitted with nausea/vomiting, elevated TI, and increased HTN. Needs admit to telemetry, dialysis, Cardiology consult, trend toponins. Suspect Clonidine withdrawal and will give Clonidine 0.1 mg this evening.
[2017-04-27 05:47] VITALS: BP 73/55
[2017-04-27 07:30] VITALS: BP 92/61
--- NOTE | 2017-04-27 08:31 | PN- Diabetes ---
Assessment/Plan Assessment: 67 y/o male, hx of diabetes type 2, ESRD on HD, thyroid cancer s/p total thyroidectomy, hypothyroidism, HTN, caediomyopathy, CHF and recent coagulase- negative staph sepsis, was in hospital over the weekend for hypotension and was readmitted for significant nausea, vomiting , SOB and hypertension. His nausea has been better. 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 He is on Novolog coverage every 4 hours and his FSGs were 144, 173, 167 and 231. Patient is still kept NPO. Plan: 1. start Levemir 6 units daily at 10 am 2. continue the current Novolog coverage every 4 hours for now; 3. if patient will be on a diet, I will recommend discontinuing Novolog coverage every 4 hours and starting patient on Novolog coverage before meals--- FSG < 150 , no coverage; 150-200, 2 units; 201-250, 3 units; 251-300, 4 units; 301-350, 6 units; 351-400, 8 units; > 400, 10 units. 4. continue Levothyroxine 274 mcg daily; repeat TSH and free T4; 5. recommend checking am cortisol. will follow. 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 Objective Last 24 Hrs of Vital Signs/I&O Vital Signs Date Time Temp Pulse Resp B/P B/P Pulse O2 O2 Flow FiO2 Mean Ox Delivery Rate 04/27 0730 95 92/61 04/27 0547 97.8 101 22 73/55 99 Room Air 04/27 0225 110 80/60 04/27 0000 Room Air 04/26 2319 129 112/72 04/26 2240 98.1 131 24 112/74 100 Room Air 04/26 1905 106 134/80 04/26 1721 97.8 106 16 134/80 100 Room Air 04/26 1538 94 Room Air 04/26 1447 98.2 110 26 177/104 97 Room Air 04/26 1308 98.0 108 20 182/106 96 Nasal 3.0L Cannula 04/26 1200 100 04/26 1135 100 180/100 04/26 1047 100 Room Air 04/26 1041 97.0 105 18 178/93 100 Room Air Intake & Output 04/27 1600 04/27 0800 04/27 0000 Intake Total 740 292.25 Output Total 800 Balance 740 -507.75 Intake, IV 500 20.25 Intake, Oral 240 272 Number 0 1 Bowel Movements Output, 100 Emesis Output, Urine 700 Patient 194 lb Weight Weight Chair scale Measurement Method Findings Pertinent Lab/Angus Results: Laboratory Tests 04/27 04/26 04/26 0105 1442 1126 Chemistry Sodium (137 - 145 mmol/L) 134 L Potassium (3.5 - 5.1 mmol/L) 4.1 Chloride (98 - 107 mmol/L) 98 Carbon Dioxide (22 - 30 mmol/L) 22 Anion Gap (5 - 16) 14 BUN (9 - 20 mg/dL) 18 Creatinine (0.7 - 1.2 mg/dL) 3.8 H Estimated GFR (>60 ml/min) 16 L BUN/Creatinine Ratio (7 - 25 %) 4.7 L Glucose (65 - 99 mg/dL) 141 H Calcium (8.4 - 10.2 mg/dL) 8.9 Phosphorus (2.5 - 4.5 mg/dL) 1.9 L Cancelled 1.2 L Total Bilirubin (0.2 - 1.3 mg/dL) 2.1 H AST (17 - 59 U/L) 36 ALT (21 - 72 U/L) 31 Alkaline Phosphatase (< 127 U/L) 119 Troponin I (<0.11 ng/ml) 1.88 *H 0.50 *H [id number] Pept (<125 pg/mL) 94019 H Total Protein (6.3 - 8.2 g/dL) 7.0 Albumin (3.5 - 5.0 g/dL) 4.2 Globulin (1.9 - 4.2 gm/dL) 2.8 Albumin/Globulin Ratio (1.1 - 2.2 %) 1.5 Coagulation D-Dimer High Sensitivty (0 - 243 ng/ml) 459 H Hematology CBC w Diff NO MAN DIFF REQ WBC (4.8 - 10.8 /CUMM) 4.0 L RBC (4.70 - 6.10 /CUMM) 3.93 L Hgb (14.0 - 18.0 G/DL) 10.7 L Hct (42 - 52 %) 31.9 L MCV (80.0 - 94.0 FL) 81.1 MCH (27.0 - 31.0 PG) 27.1 RDW (11.5 - 14.5 %) 20.5 H Plt Count (130 - 400 /CUMM) 197 MPV (7.4 - 10.4 FL) 8.5 Gran % (42.2 - 75.2 %) 68.4 Lymphocytes % (20.5 - 51.1 %) 24.4 Monocytes % (1.7 - 9.3 %) 6.5 Eosinophils % (0 - 5 %) 0.1 Basophils % (0.0 - 2.0 %) 0.6 Absolute Granulocytes (1.4 - 6.5 /CUMM) 2.7 Absolute Lymphocytes (1.2 - 3.4 /CUMM) 1.0 L Absolute Monocytes (0.10 - 0.60 /CUMM) 0.3 Absolute Eosinophils (0.0 - 0.7 /CUMM) 0 Absolute Basophils (0.0 - 0.2 /CUMM) 0 PUBS MCHC (33.0 - 37.0 G/DL) 33.5
[2017-04-27 09:11] VITALS: BP 102/68
--- NOTE | 2017-04-27 09:29 | PN- Housestaff ---
BENEDICTO ELDRIDGE,VERONICA 04/27/17 0928: Subjective Follow-up For: Nausea vomiting Hypertensive urgency End-stage renal disease on dialysis Elevated troponins Diabetes mellitus Complaints: no complaints Subjective: Patient is seen and examined bedside. He states he feels better. His last episode of vomiting was 10 PM last night. He denies chest pain, headache, nausea vomiting, dizziness, vision changes, or shortness of breath. Patient is requesting to eat. Review of Systems Constitutional: Reports: no symptoms. EENTM: Reports: no symptoms. Cardiovascular: Reports: no symptoms. Respiratory: Reports: no symptoms. Gastrointestinal: Reports: no symptoms. Genitourinary: Reports: no symptoms. Musculoskeletal: Reports: no symptoms. Skin: Reports: no symptoms. Neurological/Psychological: Reports: no symptoms. Hematologic/Endocrine: Reports: no symptoms. Immunologic/Allergic: Reports: no symptoms. Comments: Going into last night patient had blood pressure 134/80 at 18:28. Overnight patient had low blood pressure to 75/55. He maintained a low blood pressure even after giving 500 mils normal saline. She received clonidine last night and metoprolol and these were DC'd. Objective Last 24 Hrs of Vital Signs/I&O Vital Signs Date Time Temp Pulse Resp B/P B/P Pulse O2 O2 Flow FiO2 Mean Ox Delivery Rate 04/27 0911 94 102/68 04/27 0730 95 92/61 04/27 0547 97.8 101 22 73/55 99 Room Air 04/27 0225 110 80/60 04/27 0000 Room Air 04/26 2319 129 112/72 04/26 2240 98.1 131 24 112/74 100 Room Air 04/26 1905 106 134/80 04/26 1721 97.8 106 16 134/80 100 Room Air 04/26 1538 94 Room Air 04/26 1447 98.2 110 26 177/104 97 Room Air Intake & Output 04/27 1600 04/27 0800 04/27 0000 Intake Total 740 292.25 Output Total 800 Balance 740 -507.75 Intake, IV 500 20.25 Intake, Oral 240 272 Number 0 1 Bowel Movements Output, 100 Emesis Output, Urine 700 Patient 194 lb Weight Weight Chair scale Measurement Method Physical Exam General Appearance: Alert, Oriented X3, Cooperative, No Acute Distress Skin: No Rashes, No Breakdown, No Significant Lesion Skin Temp/Moisture Exam: Warm/Dry Sepsis Skin Exam (color): Normal for Ethnicity HEENT: Atraumatic, PERRLA, EOMI, Mucous Membr. moist/pink Neck: Supple Cardiovascular: Regular Rate, Normal S1, Normal S2, No Murmurs, Gallops, Rubs Lungs: Clear to Auscultation, Normal Air Movement Abdomen: Normal Bowel Sounds, Soft, No Tenderness, No Masses Neurological: Normal Speech Extremities: No Edema, Normal Pulses, No Tenderness/Swelling Vascular: Normal Pulses, Pulses Symmetrical Sepsis Peripheral Pulse Location: Radial Sepsis Peripheral Pulse Exam: Normal Current Medications: Current Medications Sig/Julissa Start time Last Medication Dose Route Stop Time Status Admin Acetaminophen 325 MG Q6P PRN 04/26 1330 AC PO Acetaminophen 1,000 MG Q6P PRN 04/26 1330 AC IV Alprazolam 0.5 MG BID PRN 04/26 1430 AC 04/26 PO 05/03 1429 2336 Aspirin Buffered 325 MG QPM 04/26 2200 AC PO Atorvastatin Calcium 80 MG QPM 04/26 2200 AC PO Budesonide/ 2 PUF BID 04/26 1419 AC 04/27 Formoterol Fumarate INH 0948 Clonidine 0.1 MG ONCE ONE 04/26 2345 DC PO 04/26 2346 Clopidogrel Bisulfate 75 MG DAILY 04/26 1419 AC 04/27 PO 0948 Cyclobenzaprine HCl 5 MG TID 04/26 1600 AC 04/27 PO 0948 Epoetin [place] 8,000 UNIT Tuesday .. 04/27 1000 DC IV Epoetin [place] 8,000 UNIT SAT PRN 04/27 1000 AC IV Furosemide 40 MG BID 04/26 1419 DC PO Guaifenesin 10 ML Q6P PRN 04/26 2130 DC PO Heparin Sodium 0 .STK-MED ONE 04/26 1426 DC (Porcine) .ROUTE Heparin Sodium 5,000 UNIT Q8 04/26 1400 AC 04/27 (Porcine) SC 0543 Insulin Aspart 0 AC 04/27 0700 DC SC Insulin Aspart 0 TIDAC 04/26 1745 AC 04/27 SC 1145 Insulin Aspart 0 TIDAC 04/26 1700 CAN SC Isosorbide 60 MG DAILY 04/26 1420 AC 04/26 Mononitrate PO 1905 Ketorolac 0 .STK-MED ONE 04/26 1449 DC Tromethamine .ROUTE Ketorolac 30 MG ONCE ONE 04/26 1430 DC 04/26 Tromethamine IV 04/26 1431 1447 Levothyroxine Sodium 0.274 MG DAILY AC 04/26 1420 AC 04/27 PO 0543 Lorazepam 0.5 MG ONCE ONE 04/26 1515 DC 04/26 IV 04/26 1516 1522 Melatonin 3 MG ONCE ONE 04/27 0315 DC 04/27 PO 04/27 0316 0327 Metoclopramide HCl 10 MG ONCE ONE 04/26 2200 DC 04/26 IV 04/26 2201 2212 Metoprolol Tartrate 50 MG BID 04/26 1420 DC 04/26 PO 2319 Morphine Sulfate 0 .STK-MED ONE 04/26 1427 CAN .ROUTE Morphine Sulfate 1 MG Q4 04/26 1400 DC IV Ondansetron HCl 4 MG ONCE ONE 04/26 2315 DC 04/26 IV 04/26 2316 2317 Ramelteon 8 MG AT BEDTIME 04/26 2200 04/26 PO 2321 Sertraline HCl 100 MG DAILY 04/27 1000 AC 04/27 PO 0948 Sodium Chloride 1,000 ML BOLUS ONE 04/27 0745 DC 04/27 IV 04/27 0944 0754 Sodium Chloride 500 ML BOLUS ONE 04/27 0245 DC 04/27 IV 04/27 0344 0259 Sodium Chloride 1,000 ML ONCE ONE 04/26 1115 DC 04/26 IV 04/27 0714 1150 Tamsulosin HCl 0.4 MG DAILY 04/27 1000 AC PO Ticagrelor 90 MG BID 04/26 2200 DC 04/27 PO 1211 Trazodone HCl 150 MG AT BEDTIME 04/26 2200 04/26 PO 2321 Trimethobenzamide HCl 200 MG ONCE ONE 04/26 2030 DC 04/26 IM 04/26 2031 2037 Trimethobenzamide HCl 200 MG 4 TIMES/DAY PRN 04/26 1430 04/26 IM 1522 Last 24 Hrs of Lab/Angus Results Last 24 Hrs of Labs/Mics: Laboratory Tests 04/27/17 1000: Urine Opiates Screen Pending, Methadone Screen Pending, Barbiturate Screen Pending, Ur Phencyclidine Scrn Pending, Amphetamines Screen Pending, U Benzodiazepines Scrn Pending, Urine Cocaine Screen Pending, Urine Cannabis Screen Pending 04/27/17 0105: Phosphorus 1.9 L, Troponin I 1.88 *H 04/26/17 1548: Methadone Screen Cancelled, Barbiturate Screen Cancelled, Ur Phencyclidine Scrn Cancelled, Amphetamines Screen Cancelled, U Benzodiazepines Scrn Cancelled, Urine Cocaine Screen Cancelled, Urine Cannabis Screen Cancelled 04/26/17 1442: Phosphorus Cancelled Assessment/Plan Assessment: This is a 67-year-old male with history of CAD, [place] status post 2 drug-eluting stents in October 2016 on dual antiplatelet therapy, COPD, hypertension, diabetes, end-stage renal disease dialysis Tuesday that recently was a patient in telemetry for complaints of dizziness and was found to have hypotension. He was discharged on a lower dose of his metoprolol and his clonidine and Lasix were stopped during that admission. One day after discharge , today he presents with chief complaints of nausea, vomiting since this morning and shortness of breath, hypertensive urgency blood pressure 180/100 with a normal pulse rate and afebrile. The following is a list of current issues: * Nausea and vomiting * Hypertensive urgency * Elevated troponins * End-stage renal disease on dialysis * COPD history and shortness of breath * Type 2 diabetes * CAD status post [place] and 2 drug-eluting stents in October 2016 * CHF Plan Nausea and vomiting: * Patient was given 1 dose of Zofran in the ED, we have ordered Tigan for now as his QT interval was on the higher side of normal, continue. * As per nephrology, this patient's nausea is not attributable to his uremia so emergent dialysis was not necessary yesterday. Plan for dialysis today. We will likely need to give him some fluid with dialysis as he is volume depleted at this point after one days worth nausea and vomiting. * Hold Lasix for now as patient is volume depleted. * Patient denies history of gastroparesis. This nausea and vomiting is likely viral etiology. * Keep patient nothing by mouth. Hypertensive urgency * Possibly could be due to clonidine withdrawal as he was on this last admission and it was abruptly stopped. Last night we gave 0.1 mg clonidine. As patient had low blood pressure last night we DC'd clonidine and metoprolol. * Monitor patient on telemetry * First troponin is 0.50, follow-up repeat troponins and EKGs * Patient has been given metoprolol, blood pressure already better, continue to follow Elevated troponins * In light of negative EKG, this is likely due to chronic kidney disease. Patient has had elevated troponins in the past. Type 2 Diabetes * Daily Accu-Cheks * He is on NovoLog coverage every 4 hours and his fasting glucose levels were 144, 173, 167, 231. * As per endocrinology, start Levemir 6 units daily from 10 AM * Continue the current NovoLog coverage every 4 hours * If patient will be on a diet, I will recommend discontinuing Novolog coverage every 4 hours and starting patient on Novolog coverage before meals--- FSG < 150 , no coverage; 150-200, 2 units; 201-250, 3 units; 251-300, 4 units; 301-350, 6 units; 351-400, 8 units; > 400, 10 units. * Hold Victoza * Monitor glucose and electrolytes * Check a.m. cortisol level as per endocrinology. End-stage renal disease on dialysis * Patient's potassium is 3.8, chest x-ray is clear. * As per nephrology plan dialyze today. * Strict intakes and outputs and daily weights. As his weight has decreased we will need to give him 1-2 L with dialysis. * He will need to follow up with nephrology outpatient for possible 48 hour urine for residual renal function test. CAD * Continue aspirin 325 mg daily * Atorvastatin 80 mg every day * Brillinta 90 mg twice a day * Plavix 75 mg * Imdur 60 mg daily CHF * ProBNP 53888 * Monitor intake and outtake * Continue home dose 40 mg twice a day Lasix * Monitor BP and pulse rate Anxiety * Continue home meds COPD * Continue home meds Hypothyroidism * Continue patient's levothyroxine 274 g daily, check TSH and free T4. Patient is full code DVT heparin subcutaneous Patient is on renal dialysis diet Problem List: 1. Hypertension 2. Intractable vomiting 3. CAD (coronary artery disease) 4. Elevated troponin 5. ESRD (end stage renal disease) on dialysis Pain Ratin Pain Location: None Pain Goal: Remain pain free Pain Plan: Toradol Tomorrow's Labs & Rationales: . IRENE KERN MD 04/27/17 1840: Attending MD Review Statement Attending Statement Attending MD Statement: examined this patient, discuss w/resident/PA/SUPERVISOR MAJOR APPLIANCE ASSEMBLY, agreed w/resident/PA/SUPERVISOR MAJOR APPLIANCE ASSEMBLY, discussed with family, reviewed EMR data (avail), discussed with nursing, discussed with case mgmt, reviewed images, amended to note Attending Assessment/Plan: The patient was seen and discussed with house staff. Underwent dialysis today and noted bloodwork showing increased troponin level to 10. No EKG changes or chest pain. Seen by Dr. Zamudio. H/H drop noted that may be dilutional due to fluid being given. Agree with transfer to ICU for closer observation. Repeat EKG , troponin, H/H. May need transfusion. No obvious bleeding. Will monitor closely in ICU.
--- NOTE | 2017-04-27 09:38 | PN- Nephrology ---
Assessment/Plan Assessment: 1. End-stage renal disease. We'll plan on dialysis this afternoon area he says he is not making much urine. However, even his age, given his size and gender, I would expect that his predialysis creatinine would be 6,7 or 8. His serum creatinine of 3.9 without his being dialyzed since Tuesday raises the possibility that perhaps he has recovered some kidney function. His orthostasis points to his being dry. 2. Nausea and vomiting. We'll likely need to give him some fluid with dialysis. 3. Volume status. It may be rodriguez to hold his furosemide for now. 4. Hypophosphatemia. Continue to hold the Renvela but also, I instructed the patient to liberalize his diet. Suggestion: 1. Plan dialysis today 2. Hold furosemide for now 3. We'll consider a 48 hour urine for residual renal function however that can be accomplished as an outpatient. 4. His estimated dry weight is 89 kg. He is below that according to today's weight. We'll plan to give him 1-2 L with dialysis. Subjective Subjective: Patient is pleased that he is not still vomiting. He is not yet on dialysis but was due yesterday. He is scheduled for second shift. He tells me that he was eating well when he was here during his last hospital stay. Said he was eating about half. His BUN however was 18. Which was without his being dialyzed since Tuesday. This could imply recovery of renal function and also inadequate by mouth intake. Objective Vital Signs and I&Os Vital Signs Date Time Temp Pulse Resp B/P B/P Pulse O2 O2 Flow FiO2 Mean Ox Delivery Rate 04/27 0911 94 102/68 04/27 0730 95 92/61 04/27 0547 97.8 101 22 73/55 99 Room Air 04/27 0225 110 80/60 04/27 0000 Room Air 04/26 2319 129 112/72 04/26 2240 98.1 131 24 112/74 100 Room Air 04/26 1905 106 134/80 04/26 1721 97.8 106 16 134/80 100 Room Air 04/26 1538 94 Room Air 04/26 1447 98.2 110 26 177/104 97 Room Air 04/26 1308 98.0 108 20 182/106 96 Nasal 3.0L Cannula 04/26 1200 100 04/26 1135 100 180/100 04/26 1047 100 Room Air 04/26 1041 97.0 105 18 178/93 100 Room Air Intake & Output 04/27 1600 04/27 0400 04/26 1600 04/26 0400 04/25 1600 04/25 0400 Intake Total 740 292.25 Output Total 800 Balance 740 -507.75 Intake, IV 500 20.25 Intake, Oral 240 272 Number 0 1 Bowel Movements Output, 100 Emesis Output, Urine 700 Patient 194 lb 189 lb Weight Weight Chair scale Reported by Patient Measurement Method Physical Exam: General Appearance: well developed/nourished, in no acute distress Head: atraumatic, normal appearance Eyes: Bilateral: PERRL, EOMI, pale conjunctivae. Neck: normal inspection, supple Respiratory: normal breath sounds, chest non-tender, no respiratory distress, lungs clear Cardiovascular: regular rate/rhythm, edema, gallop Gastrointestinal: normal bowel sounds Extremities: normal inspection, normal capillary refill, no edema Neurologic/Psych: no motor/sensory deficits, awake, alert, oriented x 3 Cranial Nerves: normal hearing, normal speech Current Medications: Current Medications Sig/Julissa Start time Last Medication Dose Route Stop Time Status Admin Acetaminophen 325 MG Q6P PRN 04/26 1330 AC PO Acetaminophen 1,000 MG Q6P PRN 04/26 1330 AC IV Albuterol Sulfate 3 ML ONCE ONE 04/26 1115 DC 04/26 INH 04/26 1116 1200 Alprazolam 0.5 MG BID PRN 04/26 1430 AC 04/26 PO 05/03 1429 2336 Aspirin Buffered 325 MG QPM 04/26 2200 AC PO Atorvastatin Calcium 80 MG QPM 04/26 2200 AC PO Budesonide/ 2 PUF BID 04/26 1419 AC Formoterol Fumarate INH Clonidine 0.1 MG ONCE ONE 04/26 2345 DC PO 04/26 2346 Clopidogrel Bisulfate 75 MG DAILY 04/26 1419 AC 04/26 PO 1904 Cyclobenzaprine HCl 5 MG TID 04/26 1600 AC PO Furosemide 40 MG BID 04/26 1419 AC PO Guaifenesin 10 ML Q6P PRN 04/26 2130 DC PO Heparin Sodium 0 .STK-MED ONE 04/26 1426 DC (Porcine) .ROUTE Heparin Sodium 5,000 UNIT Q8 04/26 1400 AC 04/27 (Porcine) SC 0543 Insulin Aspart 0 AC 04/27 0700 DC SC Insulin Aspart 0 TIDAC 04/26 1745 AC SC Insulin Aspart 0 TIDAC 04/26 1700 CAN SC Ipratropium [place] 2.5 ML ONCE ONE 04/26 1115 DC 04/26 INH 04/26 1116 1200 Isosorbide 60 MG DAILY 04/26 1420 AC 04/26 Mononitrate PO 1905 Ketorolac 0 .STK-MED ONE 04/26 1449 DC Tromethamine .ROUTE Ketorolac 30 MG ONCE ONE 04/26 1430 DC 04/26 Tromethamine IV 04/26 1431 1447 Levothyroxine Sodium 0.274 MG DAILY AC 04/26 1420 AC 04/27 PO 0543 Lorazepam 0.5 MG ONCE ONE 04/26 1515 DC 04/26 IV 04/26 1516 1522 Melatonin 3 MG ONCE ONE 04/27 0315 DC 04/27 PO 04/27 0316 0327 Metoclopramide HCl 10 MG ONCE ONE 04/26 2200 DC 04/26 IV 04/26 2201 2212 Metoprolol Tartrate 50 MG BID 04/26 1420 DC 04/26 PO 2319 Morphine Sulfate 0 .STK-MED ONE 04/26 1427 CAN .ROUTE Morphine Sulfate 1 MG Q4 04/26 1400 DC IV Ondansetron HCl 4 MG ONCE ONE 04/26 2315 DC 04/26 IV 04/26 2316 2317 Ondansetron HCl 0 .STK-MED ONE 04/26 1307 DC .ROUTE Ondansetron HCl 4 MG ONCE ONE 04/26 1300 DC 04/26 IV 04/26 1301 1306 Ondansetron HCl 0 .STK-MED ONE 04/26 1123 DC .ROUTE Ondansetron HCl 4 MG ONCE ONE 04/26 1115 DC 04/26 IV 04/26 1116 1150 Ramelteon 8 MG AT BEDTIME 04/26 2200 04/26 PO 2321 Sertraline HCl 100 MG DAILY 04/27 1000 AC PO Sodium Chloride 1,000 ML BOLUS ONE 04/27 0745 AC 04/27 IV 04/27 0944 0754 Sodium Chloride 500 ML BOLUS ONE 04/27 0245 DC 04/27 IV 04/27 0344 0259 Sodium Chloride 1,000 ML ONCE ONE 04/26 1115 DC 04/26 IV 04/27 0714 1150 Tamsulosin HCl 0.4 MG DAILY 04/27 1000 AC PO Ticagrelor 90 MG BID 04/26 2200 AC PO Trazodone HCl 150 MG AT BEDTIME 04/26 2200 AC 04/26 PO 2321 Trimethobenzamide HCl 200 MG ONCE ONE 04/26 2030 DC 04/26 IM 04/26 Trimethobenzamide HCl 200 MG 4 TIMES/DAY PRN 04/26 1430 AC 04/26 IM 1522 Results Pertinent Lab Results: Laboratory Tests 04/27 04/26 04/26 0105 1442 1126 Chemistry Sodium (137 - 145 mmol/L) 134 L Potassium (3.5 - 5.1 mmol/L) 4.1 Chloride (98 - 107 mmol/L) 98 Carbon Dioxide (22 - 30 mmol/L) 22 Anion Gap (5 - 16) 14 BUN (9 - 20 mg/dL) 18 Creatinine (0.7 - 1.2 mg/dL) 3.8 H Estimated GFR (>60 ml/min) 16 L BUN/Creatinine Ratio (7 - 25 %) 4.7 L Glucose (65 - 99 mg/dL) 141 H Calcium (8.4 - 10.2 mg/dL) 8.9 Phosphorus (2.5 - 4.5 mg/dL) 1.9 L Cancelled 1.2 L Total Bilirubin (0.2 - 1.3 mg/dL) 2.1 H AST (17 - 59 U/L) 36 ALT (21 - 72 U/L) 31 Alkaline Phosphatase (< 127 U/L) 119 Troponin I (<0.11 ng/ml) 1.88 *H 0.50 *H Iid-[id number] Pept (<125 pg/mL) 87299 H Total Protein (6.3 - 8.2 g/dL) 7.0 Albumin (3.5 - 5.0 g/dL) 4.2 Globulin (1.9 - 4.2 gm/dL) 2.8 Albumin/Globulin Ratio (1.1 - 2.2 %) 1.5 Coagulation D-Dimer High Sensitivty (0 - 243 ng/ml) 459 H Hematology CBC w Diff NO MAN DIFF REQ WBC (4.8 - 10.8 /CUMM) 4.0 L RBC (4.70 - 6.10 /CUMM) 3.93 L Hgb (14.0 - 18.0 G/DL) 10.7 L Hct (42 - 52 %) 31.9 L MCV (80.0 - 94.0 FL) 81.1 MCH (27.0 - 31.0 PG) 27.1 RDW (11.5 - 14.5 %) 20.5 H Plt Count (130 - 400 /CUMM) 197 MPV (7.4 - 10.4 FL) 8.5 Gran % (42.2 - 75.2 %) 68.4 Lymphocytes % (20.5 - 51.1 %) 24.4 Monocytes % (1.7 - 9.3 %) 6.5 Eosinophils % (0 - 5 %) 0.1 Basophils % (0.0 - 2.0 %) 0.6 Absolute Granulocytes (1.4 - 6.5 /CUMM) 2.7 Absolute Lymphocytes (1.2 - 3.4 /CUMM) 1.0 L Absolute Monocytes (0.10 - 0.60 /CUMM) 0.3 Absolute Eosinophils (0.0 - 0.7 /CUMM) 0 Absolute Basophils (0.0 - 0.2 /CUMM) 0 PUBS MCHC (33.0 - 37.0 G/DL) 33.5 04/26 0105 Chemistry Troponin I Cancelled
--- NOTE | 2017-04-27 13:37 | PN- Student ---
Subjective Subjective: Chief Complaint: vomiting History of Present Illness: Mr. Dodd is a 67-year-old male with past medical history significant for end stage renal disease on hemodialysis (tuesday, , tuesday), COPD not on home O2, Hypertension, Heart failure with reduced ejection fraction, CAD status post 6 stents (last two are drug eluding placed October 2016) on Plavix, Brilinta, and Aspirin, Hyperlipidemia, Insulin dependent DM2 with diabetic neuropathy, Thyroid cancer status post thyroidectomy, and MILES non-compliant with CPAP, presented to [facility] ED today for intractable vomiting and suprapubic pain 2-12/17. Patient states that after he was discharged from the hospital yesterday he went home, ate dinner, and took his normal night time pills. Patient began to have nasuea and vomit starting at 6am and describes it as bilious. Patient says that he has vomited about 12 times since onset. Currently patient is also short of breath which he attributes to his anxiety. He states he feels weak and currently has "the shakes". He has not taken any of his daily medications today. While in ED found to be in hypertensive urgency BP 182/106. Patient denies chest pain, fever, chills, palpitations, or diarrhea at this time. He has no known sick contacts and no history of similar symptoms or gastroparesis. Patient was due for dialysis today and was last dialyzed on Tuesday. Patient was [facility] from [facility] for hypotension, dizziness, positive troponins, and hyperphosphatemia. Due to hypotension his clonidine, amlodipine, and lasix were discontinued and his metoprolol was decreased to 25mgBID. Past Medical History * ESRD with Left arm AVF placed 01/17/17 * COPD not on home O2 * Hypertension * CAD s/p 6 stents * Hyperlipidemia * PVD * Insulin dependant DM2 with diabetic neuropathy * Thyroid cancer s/p thyroidectomy * MILES non-compliant with CPAP * Heart Failure with reduced EF Past Surgical History * Thyroidectomy * Cardiac stents X6 * Left leg fracture * Elbow fracture * C4-C4 spinal fusion * AV fistula for hemodialysis Medications * Aspirin 81MG PO every night * Lipitor 80mg PO every night * Metoprolol 25mg BID * Symbicort 160 -4.5 Mcg Inhaler 2 Puff through mouth twice daily * Albuterol Sulfate 90MCG HFA 2 Puff inhale through mouth Q4H as needed for SOB * Liraglutide 0.6MG/0.1ML (18MG/3ML) Pen Injector. 1.8 milligram Every night * Trazodone HCL 150Mg at night * Tamsulosin HCL 0.4MG PO daily * Folic acid 1MG PO daily * Alprazolam 0.5MG BID PRN for anxiety * Isosorbide Mononitrate 60MG ER tab 1 Tab PO daily * Synthroid 200 MCG PO daily * Ramelreon 8MG PO at bedtime * Sertraline HCL 100MG PO daily * Clopidogrel Bisulfate 75MG PO daily * Senna S Tablet 8.6MG - 50MG tabled. 2 tablets at night * Novolog 100 unit/ML cartridge. Inject into fatty tissues 3x daily before meals * Metoprolol Tartrate 25mg tablet take 1/2 tabled twice daily Allergies * Iodinated Contrast * Morphine - loopy * Hydromorphine - depressed respiration Social History * No recent travel * Patient lives at home with his girlfriend. He is independent and has visiting nurse and PT * Patient has a cat. No recent bites or scratches. * Patient quit smoking 4 years ago. Used to smoke 4 packs per day for 40 years * Patient denies alcohol use or illicit drug use. Family History Father has history of CAD Review of Systems General: +decreased appetite, + shakes, + fatigue, + malaise. No sweats or fever. Skin: no rash or skin changes apparent. Head: No headache, lightheadedness. Eyes: Patient wears corrective lenses. No visual changes. Ears: No ear pain or hearing changes. Nose/sinuses: No nasal sx. Mouth, throat, neck: No sore throat, hoarness, or swelling. Cardiovascular: No chest pain. Respiratory: + SOB, + cough. GI: No diarrhea, no constipation. Urinary: No flank pain, no frequency. Vascular: No leg edema MSK: No muscle weakness, no joint stiffness. Neurologic: No numbness or tingling Hematologic: No easily bruising Endocrine: No polydipsia/polyphagia, no heat/cold intolerance Psychiatric: + anxiety, + sleep disturbances Objective Objective: Vitals on admission T: 98, P 104, RR 20, BP 182/106, O2 SAT 96% on 3L Nasal cannula Physical Exam General: Mr. Dodd is a middle aged white male who is in mild distress bent over on bed retching. He is short of breath and anxious. Skin: Skin warm and dry without visible bruises, rashes, or cyanosis HEENT -Head: Normocephalic atraumatic -Eyes: PEERLA. EOMI. Conjunctiva not injected. -Ears: Hearing grossly intact. -Nose: Nares patent. -Mouth/throat: Mouth pink. Uvula midline. Throat without injection or exudates. Neck: Non-tender Cardiovascular: Normal S1 S2. Normal rhythm, tachycardic, no murmurs, rubs, or gallops. Radial pulse 2+ bilaterally Lungs: Decreased sounds bilaterally Abdomen: Normal abdominal bowel sounds. Tender to palpatin in suprapubic area. Genitourinary: Not done MSK: Not done Extremities: No pedal edema bilaterally, no clubbing. Left upper extremty fistula. Lymphatic: no cervical, parasternal, or supraclavicular lymphnodes noted. Neurologic: Awake and oriented x3. No gross neurological deficits. Pertinent Labs WBC 4.0L, RBC 3.93L, Hgb 10.7L, Hct 31.9L D-dimer 459 NA 134L, BUN 18 N,Creatinine 3.8H, Glucose 141, Phosphorus 1.2L, Total bilirubin 2.1H Troponin 0.50H, BNP [id number] EKG Sinus tachycardia, no significant ST-T wave changes, QTC 480 Chest X-ray - Portable Lungs clear. No acute intrathoracic disease. CT of Abdomen and Pelvis 1. No obstruction or focal inflammatory changes abdomen or pelvis. 2. No hydronephrosis or perinephric stranding. Results Results: Laboratory Tests 04/27/17 1000: Urine Opiates Screen < 100.00, Methadone Screen 41, Barbiturate Screen < 60, Ur Phencyclidine Scrn < 6.00, Amphetamines Screen < 100, U Benzodiazepines Scrn > 800 H, Urine Cocaine Screen < 50, Urine Cannabis Screen < 5.00 04/27/17 0105: Phosphorus 1.9 L, Troponin I 1.88 *H 04/26/17 1548: Methadone Screen Cancelled, Barbiturate Screen Cancelled, Ur Phencyclidine Scrn Cancelled, Amphetamines Screen Cancelled, U Benzodiazepines Scrn Cancelled, Urine Cocaine Screen Cancelled, Urine Cannabis Screen Cancelled 04/26/17 1442: Phosphorus Cancelled 04/26/17 1126: Anion Gap 14, Estimated GFR 16 L, BUN/Creatinine Ratio 4.7 L, Glucose 141 H, Calcium 8.9, Phosphorus 1.2 L, Total Bilirubin 2.1 H, AST 36, ALT 31, Alkaline Phosphatase 119, Troponin I 0.50 *H, Pwr-[id number]-Psgvstnybed Pept 10556 H, Total Protein 7.0, Albumin 4.2, Globulin 2.8, Albumin/Globulin Ratio 1.5, D-Dimer High Sensitivty 459 H, CBC w Diff NO MAN DIFF REQ, RBC 3.93 L, MCV 81.1, MCH 27.1, RDW 20.5 H, MPV 8.5, Gran % 68.4, Lymphocytes % 24.4, Monocytes % 6.5, Eosinophils % 0.1, Basophils % 0.6, Absolute Granulocytes 2.7, Absolute Lymphocytes 1.0 L, Absolute Monocytes 0.3, Absolute Eosinophils 0, Absolute Basophils 0, PUBS MCHC 33.5 04/26/17 0105: Troponin I Cancelled Assessment/Plan Assessment: Mr. Dodd is a 67-year-old male with past medical history significant for end stage renal disease on hemodialysis (tuesday, , tuesday), COPD not on home O2, Hypertension, Heart failure with reduced ejection fraction, CAD status post 6 stents (last two are drug eluding placed October 2016) on Plavix, Brilinta, and Aspirin, Hyperlipidemia, Insulin dependent DM2 with diabetic neuropathy, Thyroid cancer status post thyroidectomy, and MILES non-compliant with CPAP, presented to [facility] ED today for intractable vomiting, suprapubic pain, and shortness. Was found to be in hypertensive urgency on arrival. CXR and CT abdomen and pelvis were unrevealing. Problem List 1. Nausea and Vomiting 2. Hypertensive urgency 3. Acute shortness of breath 4. Elevated troponins 5. Heart failure with reduced EF 6. End-stage renal disease on hemodialysis 7. Insulin dependent DM2 8. History of CAD status post 6 stents 9. History of anxiety 10. History of COPD 11. DVT prophylaxis Plan: 1. Nausea and Vomiting * Nephrology recommendations - BUN 18 and creatinine 3.8 - Unlikely to be uremia. - Dialysis tomorrow. - Strict input and outputs and daily weights. * CT negative for any acute findings * IV Tigan 4 times/day PRN for nausea/vomiting * Toradol PRN for abdominal pain 2. Hypertensive urgency * Resume metroprolol at 50mg BID * Restart Lasix 40 mg BID 3. Acute shortness of breath * Differentials include, anxiety, COPD exacerbation, Fluid overload, or PE * PE unlikely due to D-Dimer value * CXR negative for any acute process * Continue home Xanax for anxiety 4. Elevated troponins * Likely due to chronic kidney disease and demand ischemia * No new EKG changes * Similiar to last admission * Cardiology recommendations -Monitor on telemetry -Check repeat troponin -Repeat EKG in the morning * 3 sets of troponin and EKG to rule out ACS 5. Heart failure with reduced EF * Monitor intake and outake * Continue home lasix * Monitor BP 6. End-stage renal disease on hemodialysis * Dialysis scheduled for tomorrow 04/27 7. Insulin dependent DM2 * Daily accuchecks * Endocrinology recommendation -Novolog sliding scale Bolus Insulin: Novolog < 80 mg/dl: no coverage 80-100 mg/dl: no coverage 101-120 mg/dl: no coverage 121-150 mg/dl: no coverage 151-200 mg/dl: no coverage 201-250 mg/dl: no coverage 251-300 mg/dl: 2 units 301-350 mg/dl: 4 units 351-400 mg/dl: 6 units > 400 mg/dl: 8 units 8. History of CAD status post 6 stents * Continue home Asprin 325mg daily, Atorvastatin 80mg QPM, Brilinta 90mg BID, Plavix 75MG daily, and Imdur 60mg daily. 9. History of Anxiety * Continue home Setraline 100mg dailym Ramelton 8mg at bed, Trazodone 150mg at bed, and Alprazolam .5mg BID PRN 10. History of COPD * Continue home symbicort and albuterol. 11. DVT prophylaxis * Heparin Diet: Diabetic Code Status: Full
[2017-04-27 15:14] LABS: ABSOLUTE BASOPHIL COUNT 0 /CUMM (0.0-0.2); ABSOLUTE EOSINOPHIL COUNT 0 /CUMM (0.0-0.7); ABSOLUTE GRANULOCYTE CT 2.1 /CUMM (1.4-6.5); ABSOLUTE LYMPH COUNT 0.9 /CUMM (1.2-3.4); ABSOLUTE MONOCYTE COUNT 0.2 /CUMM (0.10-0.60); BASOPHIL % 1.1 % (0.0-2.0); EOSINOPHIL % 0 % (0-5); GRANULOCYTE % 65.1 % (42.2-75.2); MEAN CORPUSCULAR HGB 26.9 PG (27.0-31.0); MEAN CORPUSCULAR HGB CONC 32.8 G/DL (33.0-37.0); MEAN CORPUSCULAR VOLUME 81.8 FL (80.0-94.0); MEAN PLATELET VOLUME 9.1 FL (7.4-10.4); PLATELET COUNT 115 /CUMM (130-400); RBC DISTRIBUTION WIDTH 21.2 % (11.5-14.5); WHITE BLOOD CELL COUNT 3.2 /CUMM (4.8-10.8)
[2017-04-27 15:22] LABS: HEMATOCRIT 24.6 % (42-52)
--- NOTE | 2017-04-27 16:10 | PN- Student ---
Subjective Subjective: Today Mr. Dodd says he has no complaints. He has not vomited since last night and no longer is shaking. He denies abdominal pain at this time and has regained his normal appetite. Objective Objective: Vitals T: 97.8, HR 101, BP 75/55, RR 22, O2 sat 99% on room air Physical Exam General: Patient is laying comfortably in bed in no acute distress. CV: Normal S1S2. Tachycardic Lungs: Decreased breath sounds throughout. Extremities: No edema. Pertinent Labs WBC 3.2L, Hgb 8.1L, Hct 24.6L, Plt 115L NA 133L, K3.7, BUN 21H, Creatinine 4.2H Troponin 1.88H Albumin 3.2L Utox Negative opiates, methadone, barbituates, PCP, Cocaine and Cannabis Positive Benzodiazepines Finger Stick Glucose 04/26 1621: 173 04/26 2000: 167 04/27 0755: 231 04/27 1145: 253 Results Results: Laboratory Tests 04/27/17 1300: Anion Gap 13, Estimated GFR 14 L, BUN/Creatinine Ratio 5.0 L, Calcium 7.1 L, Phosphorus 2.7, Magnesium 1.7, Albumin 3.2 L, CBC w Diff NO MAN DIFF REQ, RBC 3.00 L, MCV 81.8, MCH 26.9 L, RDW 21.2 H, MPV 9.1, Gran % 65.1, Lymphocytes % 27.7, Monocytes % 6.1, Eosinophils % 0, Basophils % 1.1, Absolute Granulocytes 2.1, Absolute Lymphocytes 0.9 L, Absolute Monocytes 0.2, Absolute Eosinophils 0 , Absolute Basophils 0, PUBS MCHC 32.8 L 04/27/17 1000: Urine Opiates Screen < 100.00, Methadone Screen 41, Barbiturate Screen < 60, Ur Phencyclidine Scrn < 6.00, Amphetamines Screen < 100, U Benzodiazepines Scrn > 800 H, Urine Cocaine Screen < 50, Urine Cannabis Screen < 5.00 04/27/17 0105: Phosphorus 1.9 L, Troponin I 1.88 *H 04/26/17 1548: Methadone Screen Cancelled, Barbiturate Screen Cancelled, Ur Phencyclidine Scrn Cancelled, Amphetamines Screen Cancelled, U Benzodiazepines Scrn Cancelled, Urine Cocaine Screen Cancelled, Urine Cannabis Screen Cancelled 04/26/17 1442: Phosphorus Cancelled 04/26/17 1126: Anion Gap 14, Estimated GFR 16 L, BUN/Creatinine Ratio 4.7 L, Glucose 141 H, Calcium 8.9, Phosphorus 1.2 L, Total Bilirubin 2.1 H, AST 36, ALT 31, Alkaline Phosphatase 119, Troponin I 0.50 *H, [id number] Pept 89602 H, Total Protein 7.0, Albumin 4.2, Globulin 2.8, Albumin/Globulin Ratio 1.5, D-Dimer High Sensitivty 459 H, CBC w Diff NO MAN DIFF REQ, RBC 3.93 L, MCV 81.1, MCH 27.1, RDW 20.5 H, MPV 8.5, Gran % 68.4, Lymphocytes % 24.4, Monocytes % 6.5, Eosinophils % 0.1, Basophils % 0.6, Absolute Granulocytes 2.7, Absolute Lymphocytes 1.0 L, Absolute Monocytes 0.3, Absolute Eosinophils 0, Absolute Basophils 0, PUBS MCHC 33.5 04/26/17 0105: Troponin I Cancelled Assessment/Plan Assessment: Mr. Dodd is a 67-year-old male with past medical history significant for end stage renal disease on hemodialysis (tuesday, , tuesday), COPD not on home O2, Hypertension, Heart failure with reduced ejection fraction, CAD status post 6 stents (last two are drug eluding placed October 2016) on Plavix, Brilinta, and Aspirin, Hyperlipidemia, Insulin dependent DM2 with diabetic neuropathy, Thyroid cancer status post thyroidectomy, and MILES non-compliant with CPAP. Today he has no current complaints and is feeling improved from yesterday. This AM his BP was 75/55, patient was asymptomatic. Problem List 1. Nausea and Vomiting 2. Hypertensive urgency 3. Acute shortness of breath 4. Hypotension 5. Elevated troponins 6. Heart failure with reduced EF 7. End-stage renal disease on hemodialysis 8. Insulin dependent DM2 9. History of CAD status post 6 stents 10. History of anxiety 11. History of COPD 12. Thyroid CX S/P thyroidectomy 13. DVT prophylaxis Plan: 1. Nausea and Vomiting--RESOLVED * Continue Tigan 4 times/day PRN for nausea/vomiting 2. Hypertensive urgency -- RESOLVED * Antihypertensive meds were held due to AM hypotension 3. Acute shortness of breath -- RESOLVED * Continue to monitor 4. Hypotension * BP at 05:47 was 75/55 * All antihypertensive meds held. * Endocrinology suggested AM cortisol for assessment of adrenal insufficiency 5. Elevated troponins * Likely due to chronic kidney disease and demand ischemia * No new EKG changes * Similiar to last admission * Cardiology recommendations -Contine to monitor on telemetry * 3 sets of troponin and EKG to rule out ACS - First .55 - Second 1.88 6. Heart failure with reduced EF * Monitor intake and outake * Holding home dose of lasix due to hypotension and decreased dry weight * Monitor BP 7. End-stage renal disease on hemodialysis * Patient currently in dialysis. 1-2L fluids given during dialysis due to hypotension and decrease in dry weight * Nephrology consult - Hold Lasix - Consider 48-hr urine outpatient due to changes in baseline BUN and creatinine 8. Insulin dependent DM2 * Daily accuchecks * Endocrinology recommendation 04/27 -start Levemir 6 units daily at 10 am -if patient will be on a diet recommend discontinuing Novolog coverage every 4 hours and starting patient on Novolog coverage before meals FSG < 150, no coverage 150-200, 2 units 201-250, 3 units 251-300, 4 units 301-350, 6 units 351-400, 8 units > 400, 10 units 9. History of CAD status post 6 stents * Continue home Asprin 325mg daily, Atorvastatin 80mg QPM, Brilinta 90mg BID, Plavix 75MG daily, and Imdur 60mg daily. 10. History of Anxiety * Continue home Setraline 100mg dailym Ramelton 8mg at bed, Trazodone 150mg at bed, and Alprazolam .5mg BID PRN 11. History of COPD * Continue home symbicort and albuterol. 12. Thyroid CX S/P thyroidectomy * Continue Levothyroxine 274 mcg daily * Repeat TSH and free T4 13. DVT prophylaxis * Heparin Patient potential discharge tomorrow Diet: Diabetic Code Status: Full 11. Thyroid CX S/P thyroidectomy * Continue Levothyroxine 274 mcg daily * Repeat TSH and free T4 12. DVT prophylaxis * Heparin Diet: Diabetic Code Status: Full
--- NOTE | 2017-04-27 17:10 | PN- Cardiology ---
Subjective Subjective: The patient is seen on dialysis. He reports that he is feeling better. His last episode of vomiting was yesterday evening. No current chest pain, shortness of breath, palpitations. Objective Vital Signs and I&Os Vital Signs Date Time Temp Pulse Resp B/P B/P Pulse O2 O2 Flow FiO2 Mean Ox Delivery Rate 04/27 0911 94 102/68 04/27 0730 95 92/61 04/27 0547 97.8 101 22 73/55 99 Room Air 04/27 0225 110 80/60 04/27 0000 Room Air 04/26 2319 129 112/72 04/26 2240 98.1 131 24 112/74 100 Room Air 04/26 1905 106 134/80 04/26 1721 97.8 106 16 134/80 100 Room Air Intake & Output 04/27 1600 04/27 0800 04/27 0000 04/26 1600 04/26 0800 04/26 0000 Intake Total 740 292.25 Output Total 800 Balance 740 -507.75 Intake, IV 500 20.25 Intake, Oral 240 272 Number 0 1 Bowel Movements Output, 100 Emesis Output, Urine 700 Patient 194 lb 189 lb Weight Weight Chair scale Reported by Patient Measurement Method Physical Exam: Gen: The patient is in no acute distress HEENT: Normal nose, ears, and oropharynx. Pupils equal bilaterally. Conjunctiva normal. Neck: Supple with no JVD, no masses, and no thyromegaly Lungs: Clear to auscultation with normal respiratory effort Heart: RRR, S1, S2, 1/6 systolic murmur. No peripheral edema, 2+ pulses in the lower extremities bilaterally Abdomen: Soft, nontender, no masses. No hepatomegaly. No splenomegaly Extremities: No clubbing or cyanosis. Normal muscle strength in the upper and lower extremities. Skin: Normal skin turgor with no skin ulcers or lesions noted. Neuro: Cranial nerves intact. Sensation intact Current Medications: Current Medications Sig/Julissa Start time Last Medication Dose Route Stop Time Status Admin Acetaminophen 325 MG Q6P PRN 04/26 1330 AC PO Acetaminophen 1,000 MG Q6P PRN 04/26 1330 AC IV Alprazolam 0.5 MG BID PRN 04/26 1430 AC 04/26 PO 05/03 1429 2336 Aspirin Buffered 325 MG QPM 04/26 2200 AC PO Atorvastatin Calcium 80 MG QPM 04/26 2200 AC PO Budesonide/ 2 PUF BID 04/26 1419 AC 04/27 Formoterol Fumarate INH 0948 Clonidine 0.1 MG ONCE ONE 04/26 2345 DC PO 04/26 2346 Clopidogrel Bisulfate 75 MG DAILY 04/26 1419 AC 04/27 PO 0948 Cyclobenzaprine HCl 5 MG TID 04/26 1600 AC 04/27 PO 0948 Epoetin [place] 8,000 UNIT Tuesday .. 04/27 1000 DC IV Epoetin [place] 8,000 UNIT SAT PRN 04/27 1000 AC IV Furosemide 40 MG BID 04/26 1419 DC PO Guaifenesin 10 ML Q6P PRN 04/26 2130 DC PO Heparin Sodium 5,000 UNIT Q8 04/26 1400 DC 04/27 (Porcine) SC 0543 Insulin Aspart 0 Q4 04/27 1800 AC SC Insulin Aspart 0 AC 04/27 0700 DC SC Insulin Aspart 0 TIDAC 04/26 1745 DC 04/27 SC 1145 Insulin Detemir 6 UNITS DAILY 04/27 1515 AC SC Isosorbide 60 MG DAILY 04/26 1420 AC 04/26 Mononitrate PO 1905 Levothyroxine Sodium 0.274 MG DAILY AC 04/26 1420 AC 04/27 PO 0543 Melatonin 3 MG ONCE ONE 04/27 0315 DC 04/27 PO 04/27 0316 0327 Metoclopramide HCl 10 MG ONCE ONE 04/26 2200 DC 04/26 IV 04/26 2201 2212 Metoprolol Tartrate 50 MG BID 04/26 1420 DC 04/26 PO 2319 Morphine Sulfate 1 MG Q4 04/26 1400 DC IV Ondansetron HCl 4 MG ONCE ONE 04/26 2315 DC 04/26 IV 04/26 2316 2317 Patient Medication 1 ED .STK-MED ONE 04/27 1358 DC Teaching ED 04/27 1359 Potassium Chloride 10 MEQ ONCE ONE 04/27 1630 CAN IV 04/27 1631 Ramelteon 8 MG AT BEDTIME 04/26 2200 AC 04/26 PO 2321 Sertraline HCl 100 MG DAILY 04/27 1000 AC 04/27 PO 0948 Sodium Chloride 1,000 ML BOLUS ONE 04/27 0745 DC 04/27 IV 04/27 0944 0754 Sodium Chloride 500 ML BOLUS ONE 04/27 0245 DC 04/27 IV 04/27 0344 0259 Sodium Chloride 1,000 ML ONCE ONE 04/26 1115 DC 04/26 IV 04/27 0714 1150 Tamsulosin HCl 0.4 MG DAILY 04/27 1000 AC PO Ticagrelor 90 MG BID 04/26 2200 DC 04/27 PO 1211 Trazodone HCl 150 MG AT BEDTIME 04/26 2200 AC 04/26 PO 2321 Trimethobenzamide HCl 200 MG ONCE ONE 04/26 2030 DC 04/26 IM 04/26 2031 203 Trimethobenzamide HCl 200 MG 4 TIMES/DAY PRN 04/26 1430 AC 04/27 IM 1539 Results Last 48 Hrs of Labs/Mics: Laboratory Tests 04/27/17 1300: Anion Gap 13, Estimated GFR 14 L, BUN/Creatinine Ratio 5.0 L, Calcium 7.1 L, Phosphorus 2.7, Magnesium 1.7, Troponin I 10.00 *H, Albumin 3.2 L, CBC w Diff NO MAN DIFF REQ, RBC 3.00 L, MCV 81.8, MCH 26.9 L, RDW 21.2 H, MPV 9.1, Gran % 65.1, Lymphocytes % 27.7, Monocytes % 6.1, Eosinophils % 0, Basophils % 1.1, Absolute Granulocytes 2.1, Absolute Lymphocytes 0.9 L, Absolute Monocytes 0.2, Absolute Eosinophils 0, Absolute Basophils 0, PUBS MCHC 32.8 L 04/27/17 1000: Urine Opiates Screen < 100.00, Methadone Screen 41, Barbiturate Screen < 60, Ur Phencyclidine Scrn < 6.00, Amphetamines Screen < 100, U Benzodiazepines Scrn > 800 H, Urine Cocaine Screen < 50, Urine Cannabis Screen < 5.00 04/27/17 0105: Phosphorus 1.9 L, Troponin I 1.88 *H 04/26/17 1548: Methadone Screen Cancelled, Barbiturate Screen Cancelled, Ur Phencyclidine Scrn Cancelled, Amphetamines Screen Cancelled, U Benzodiazepines Scrn Cancelled, Urine Cocaine Screen Cancelled, Urine Cannabis Screen Cancelled 04/26/17 1442: Phosphorus Cancelled 04/26/17 1126: Anion Gap 14, Estimated GFR 16 L, BUN/Creatinine Ratio 4.7 L, Glucose 141 H, Calcium 8.9, Phosphorus 1.2 L, Total Bilirubin 2.1 H, AST 36, ALT 31, Alkaline Phosphatase 119, Troponin I 0.50 *H, Lgh-W-Mqwnawsgnka Pept 98412 H, Total Protein 7.0, Albumin 4.2, Globulin 2.8, Albumin/Globulin Ratio 1.5, D-Dimer High Sensitivty 459 H, CBC w Diff NO MAN DIFF REQ, RBC 3.93 L, MCV 81.1, MCH 27.1, RDW 20.5 H, MPV 8.5, Gran % 68.4, Lymphocytes % 24.4, Monocytes % 6.5, Eosinophils % 0.1, Basophils % 0.6, Absolute Granulocytes 2.7, Absolute Lymphocytes 1.0 L, Absolute Monocytes 0.3, Absolute Eosinophils 0, Absolute Basophils 0, PUBS MCHC 33.5 04/26/17 0105: Troponin I Cancelled Assessment/Plan Assessment/Plan Assessment: 1. CAD 2. Diabetes mellitus 3. End-stage renal disease 4. Nausea and vomiting 5. Positive troponin, likely demand ischemia Plan: * Continue cardiac meds * Dialysis as per renal * Repeat Troponin Continue telemetry? Yes
[2017-04-27 18:11] VITALS: BP 150/74
--- NOTE | 2017-04-27 18:24 | NUR ---
17:40 PM PT TRANSFERRED TO [facility] ROOM [address] KAHN. PT TRANSFERRED DIRECTLY FROM DIALYSIS ROOM. VS: 145/79 T 98.2 P 105 RR 20. A&O X3. PALE. 97% ON RA. DENIES SOB. C/O NAUSEA & PRODUCED SMALL AMOUNT OF BLOOD-TINGED SPUTUM DURING TRANSFER. EKG DONE. REPORT GIVEN TO BENTON MATTHEWS.
--- NOTE | 2017-04-27 18:35 | NUR ---
PT COUGHED UP BLOOD TINGED SPUTUM, MADE AWARE, WILL CONT TO MON.
[2017-04-27 18:47] LABS: ABSOLUTE BASOPHIL COUNT 0 /CUMM (0.0-0.2); ABSOLUTE EOSINOPHIL COUNT 0 /CUMM (0.0-0.7); ABSOLUTE GRANULOCYTE CT 3.2 /CUMM (1.4-6.5); ABSOLUTE LYMPH COUNT 0.5 /CUMM (1.2-3.4); ABSOLUTE MONOCYTE COUNT 0.2 /CUMM (0.10-0.60); BASOPHIL % 0.4 % (0.0-2.0); EOSINOPHIL % 0 % (0-5); GRANULOCYTE % 81.5 % (42.2-75.2); HEMATOCRIT 28.2 % (42-52); MEAN CORPUSCULAR HGB 27.2 PG (27.0-31.0); MEAN CORPUSCULAR VOLUME 82.5 FL (80.0-94.0); MEAN PLATELET VOLUME 8.3 FL (7.4-10.4); PLATELET COUNT 157 /CUMM (130-400); RBC DISTRIBUTION WIDTH 21.7 % (11.5-14.5); RED BLOOD CELL CT 3.42 /CUMM (4.70-6.10); WHITE BLOOD CELL COUNT 3.9 /CUMM (4.8-10.8)
[2017-04-27 23:00] VITALS: BP 120/70
[2017-04-28 00:10] LABS: ABSOLUTE BASOPHIL COUNT 0 /CUMM (0.0-0.2); ABSOLUTE EOSINOPHIL COUNT 0 /CUMM (0.0-0.7); ABSOLUTE GRANULOCYTE CT 2.2 /CUMM (1.4-6.5); ABSOLUTE LYMPH COUNT 0.6 /CUMM (1.2-3.4); ABSOLUTE MONOCYTE COUNT 0.3 /CUMM (0.10-0.60); BASOPHIL % 0.4 % (0.0-2.0); EOSINOPHIL % 0 % (0-5); GRANULOCYTE % 70.5 % (42.2-75.2); HEMATOCRIT 25.5 % (42-52); MEAN CORPUSCULAR VOLUME 81.6 FL (80.0-94.0); MEAN PLATELET VOLUME 8.4 FL (7.4-10.4); PLATELET COUNT 116 /CUMM (130-400); RBC DISTRIBUTION WIDTH 21.5 % (11.5-14.5); RED BLOOD CELL CT 3.13 /CUMM (4.70-6.10); WHITE BLOOD CELL COUNT 3.2 /CUMM (4.8-10.8)
[2017-04-28 04:59] LABS: PTT 33 SEC (25-37)
[2017-04-28 05:13] LABS: ABSOLUTE BASOPHIL COUNT 0 /CUMM (0.0-0.2); ABSOLUTE EOSINOPHIL COUNT 0 /CUMM (0.0-0.7); ABSOLUTE GRANULOCYTE CT 1.6 /CUMM (1.4-6.5); ABSOLUTE LYMPH COUNT 1.2 /CUMM (1.2-3.4); ABSOLUTE MONOCYTE COUNT 0.3 /CUMM (0.10-0.60); BASOPHIL % 0.9 % (0.0-2.0); EOSINOPHIL % 0.7 % (0-5); GRANULOCYTE % 52.3 % (42.2-75.2); HEMATOCRIT 26.9 % (42-52); MEAN CORPUSCULAR HGB 27.4 PG (27.0-31.0); MEAN CORPUSCULAR VOLUME 83.1 FL (80.0-94.0); MEAN PLATELET VOLUME 9.2 FL (7.4-10.4); PLATELET COUNT 116 /CUMM (130-400); RBC DISTRIBUTION WIDTH 21.6 % (11.5-14.5); RED BLOOD CELL CT 3.23 /CUMM (4.70-6.10); WHITE BLOOD CELL COUNT 3.1 /CUMM (4.8-10.8)
[2017-04-28 07:00] VITALS: BP 141/85
[2017-04-28 08:00] VITALS: BP 140/80
--- NOTE | 2017-04-28 08:03 | NUR ---
PATIENT IS A/O X3, PERRLA, INDEPENDENTLY WALKS TO THE BATHROOM WHEN VOIDING, C/O ABDOMINAL PAIN, PRN IV TYLENOL GIVEN, PAIN WAS RESOLVED, SLEEP WELL THE WHOLE NIGHT .AFEBILE, SINUS TACH, HR AT 110'S, BP IS STABLE AT 90'S TO 130'S SYSTOLIC. LUNGS IS CLEAR, GOOD O2 SAT, NO SOB. ABDOMEN IS SOFT, GOOD BS, C/O N/V AND VOMITED ONCE OF ABDOMINAL CONTENT, PRN ZOFRAN GIVEN, N/V RESOLVED. ABLE TO VOID TO THE BATHROOM. SKIN IS INTACT. HEPARIN DRIP STARTED AT 2100 (04/27/17) AT 12 UNITS/KG/HR, PTT DONE Q 6, AT 4 AM HEPARIN DRIP INCREASED TO 16 UNITS/KG/HR AFTER THE PTT RESULT IS IN AT 5AM (PTT IS 33) AND IV BOLUS OF 5000 UNITS HEPARIN ALSO GIVEN PER PROTOCOL. NO SIGNS OF BLEEDING SEEN. NEXT PTT AT 11 AM, MORNING NURSE INFORMED.
--- NOTE | 2017-04-28 08:22 | PN- Diabetes ---
Assessment/Plan Assessment: 67 y/o male, hx of diabetes type 2, ESRD on HD, thyroid cancer s/p total thyroidectomy, hypothyroidism, HTN, caediomyopathy, CHF and recent coagulase- negative staph sepsis, was in hospital over the weekend for hypotension and was readmitted for significant nausea, vomiting , SOB and hypertension. His nausea has been better. His BP was down to 73/55 yesterday morning. But BP has been better since then. Am cortisol was 8.3 which is borderline. Troponin has been elevated with the most recent Troponin level of 10.7. He used to be on Levothyroxine 274 mcg daily. However, Levothyroxine was cut back to 200 mcg daily. On 04/23/2017, his TSH was 26.1 and T4 was 3.5. Over the past 2 days in hospital, he has been on Levothyroxine 274 mcg daily. Repeat FT this morning showed TSH 30.8 and free T4 0.69. He was put on renal diet; but he hasn't been eating. He is on Levemir 6 units daily and Novolog coverage every 4 hours. His FSGs were 231, 253, 128, 260, 196 and 173. Plan: 1. thyroid: ---continue Levothyroxine 274 mcg po daily; ---repeat TSH and free T4 in 2 days to look for a trend. 2. borderline am cortisol ---repeat am cortisol and albumin; 3. DM: ---continue levemir 6 units daily; ---change Novolog coverage every 4 hours to Novolog coverage before meals and Novolog coverage at bedtime; detail see the inpatient DM orders; ---monitor FSGs. will follow. Inpatient Diabetes Orders Before Each Meal: Bolus Insulin: Novolog < 80 mg/dl: no coverage 80-100 mg/dl: no coverage 101-120 mg/dl: no coverage 121-150 mg/dl: 2 units 151-200 mg/dl: 3 units 201-250 mg/dl: 4 units 251-300 mg/dl: 5 units 301-350 mg/dl: 6 units 351-400 mg/dl: 8 units > 400 mg/dl: 10 units Bedtime: Bolus Insulin: Novolog < 80 mg/dl: no coverage 80-100 mg/dl: no coverage 101-120 mg/dl: no coverage 121-150 mg/dl: no coverage 151-200 mg/dl: no coverage 201-250 mg/dl: no coverage 251-300 mg/dl: 2 units 301-350 mg/dl: 3 units 351-400 mg/dl: 4 units > 400 mg/dl: 5 units Subjective Subjective: His nausea has been better; he will try to eat meals today. Objective Last 24 Hrs of Vital Signs/I&O Vital Signs Date Time Temp Pulse Resp B/P B/P Pulse O2 O2 Flow FiO2 Mean Ox Delivery Rate 04/28 07 98.7 100 22 141/85 94 Room Air 04/28 0400 99 Nasal 2.0L Cannula 04/28 0000 93 Room Air 04/27 2300 98.4 110 27 120/70 96 Room Air 04/27 2000 Room Air 04/27 1811 99.0 112 10 150/74 97 Room Air 04/27 0911 94 102/68 Intake & Output 04/28 1600 04/28 0800 04/28 0000 Intake Total 639.8 634.4 Output Total Balance 639.8 634.4 Intake, IV 189.8 184.4 Intake, Oral 450 450 Patient 193 lb 193 lb Weight Findings Pertinent Lab/Angus Results: Laboratory Tests 04/28 04/28 0400 0000 Chemistry Sodium (137 - 145 mmol/L) 136 L Potassium (3.5 - 5.1 mmol/L) 4.1 Chloride (98 - 107 mmol/L) 99 Carbon Dioxide (22 - 30 mmol/L) 25 Anion Gap (5 - 16) 12 BUN (9 - 20 mg/dL) 11 Creatinine (0.7 - 1.2 mg/dL) 2.8 H Estimated GFR (>60 ml/min) 23 L BUN/Creatinine Ratio (7 - 25 %) 3.9 L Troponin I (<0.11 ng/ml) 10.70 *H 7.47 *H TSH (0.270 - 4.200 uIU/mL) 30.800 H Free T4 (0.78 - 2.44 ng/dL) 0.69 L Cortisol AM Sample (4.46 - 22.7 ug/dL) 8.3 Coagulation APTT (25 - 37 SEC) 33 Hematology CBC w Diff NO MAN DIFF REQ NO MAN DIFF REQ WBC (4.8 - 10.8 /CUMM) 3.1 L 3.2 L RBC (4.70 - 6.10 /CUMM) 3.23 L 3.13 L Hgb (14.0 - 18.0 G/DL) 8.9 L 8.4 L Hct (42 - 52 %) 26.9 L 25.5 L MCV (80.0 - 94.0 FL) 83.1 81.6 MCH (27.0 - 31.0 PG) 27.4 27.0 RDW (11.5 - 14.5 %) 21.6 H 21.5 H Plt Count (130 - 400 /CUMM) 116 L 116 L MPV (7.4 - 10.4 FL) 9.2 8.4 Gran % (42.2 - 75.2 %) 52.3 70.5 Lymphocytes % (20.5 - 51.1 %) 37.6 20.1 L Monocytes % (1.7 - 9.3 %) 8.5 9.0 Eosinophils % (0 - 5 %) 0.7 0 Basophils % (0.0 - 2.0 %) 0.9 0.4 Absolute Granulocytes (1.4 - 6.5 /CUMM) 1.6 2.2 Absolute Lymphocytes (1.2 - 3.4 /CUMM) 1.2 0.6 L Absolute Monocytes (0.10 - 0.60 /CUMM) 0.3 0.3 Absolute Eosinophils (0.0 - 0.7 /CUMM) 0 0 Absolute Basophils (0.0 - 0.2 /CUMM) 0 0 PUBS MCHC (33.0 - 37.0 G/DL) 33.0 33.0 04/27 04/27 04/27 1810 1810 1807 Chemistry Sodium Cancelled Potassium Cancelled Chloride Cancelled Carbon Dioxide Cancelled Anion Gap Cancelled BUN (9 - 20 mg/dL) 9 Cancelled Creatinine Cancelled BUN/Creatinine Ratio Cancelled Troponin I (<0.11 ng/ml) 9.22 *H Hematology CBC w Diff NO MAN DIFF REQ WBC (4.8 - 10.8 /CUMM) 3.9 L RBC (4.70 - 6.10 /CUMM) 3.42 L Hgb (14.0 - 18.0 G/DL) 9.3 L Hct (42 - 52 %) 28.2 L MCV (80.0 - 94.0 FL) 82.5 MCH (27.0 - 31.0 PG) 27.2 RDW (11.5 - 14.5 %) 21.7 H Plt Count (130 - 400 /CUMM) 157 MPV (7.4 - 10.4 FL) 8.3 Gran % (42.2 - 75.2 %) 81.5 H Lymphocytes % (20.5 - 51.1 %) 12.1 L Monocytes % (1.7 - 9.3 %) 6.0 Eosinophils % (0 - 5 %) 0 Basophils % (0.0 - 2.0 %) 0.4 Absolute Granulocytes (1.4 - 6.5 /CUMM) 3.2 Absolute Lymphocytes (1.2 - 3.4 /CUMM) 0.5 L Absolute Monocytes (0.10 - 0.60 /CUMM) 0.2 Absolute Eosinophils (0.0 - 0.7 /CUMM) 0 Absolute Basophils (0.0 - 0.2 /CUMM) 0 PUBS MCHC (33.0 - 37.0 G/DL) 33.0 04/27 04/27 1300 1000 Chemistry Sodium (137 - 145 mmol/L) 133 L Potassium (3.5 - 5.1 mmol/L) 3.7 Chloride (98 - 107 mmol/L) 98 Carbon Dioxide (22 - 30 mmol/L) 21 L Anion Gap (5 - 16) 13 BUN (9 - 20 mg/dL) 21 H Creatinine (0.7 - 1.2 mg/dL) 4.2 H Estimated GFR (>60 ml/min) 14 L BUN/Creatinine Ratio (7 - 25 %) 5.0 L Calcium (8.4 - 10.2 mg/dL) 7.1 L Phosphorus (2.5 - 4.5 mg/dL) 2.7 Magnesium (1.6 - 2.3 mg/dL) 1.7 Troponin I (<0.11 ng/ml) 10.00 *H Albumin (3.5 - 5.0 g/dL) 3.2 L Hematology CBC w Diff NO MAN DIFF REQ WBC (4.8 - 10.8 /CUMM) 3.2 L RBC (4.70 - 6.10 /CUMM) 3.00 L Hgb (14.0 - 18.0 G/DL) 8.1 L Hct (42 - 52 %) 24.6 L MCV (80.0 - 94.0 FL) 81.8 MCH (27.0 - 31.0 PG) 26.9 L RDW (11.5 - 14.5 %) 21.2 H Plt Count (130 - 400 /CUMM) 115 L MPV (7.4 - 10.4 FL) 9.1 Gran % (42.2 - 75.2 %) 65.1 Lymphocytes % (20.5 - 51.1 %) 27.7 Monocytes % (1.7 - 9.3 %) 6.1 Eosinophils % (0 - 5 %) 0 Basophils % (0.0 - 2.0 %) 1.1 Absolute Granulocytes (1.4 - 6.5 /CUMM) 2.1 Absolute Lymphocytes (1.2 - 3.4 /CUMM) 0.9 L Absolute Monocytes (0.10 - 0.60 /CUMM) 0.2 Absolute Eosinophils (0.0 - 0.7 /CUMM) 0 Absolute Basophils (0.0 - 0.2 /CUMM) 0 PUBS MCHC (33.0 - 37.0 G/DL) 32.8 L Toxicology Urine Opiates Screen (>2000 NG/ML) < 100.00 Methadone Screen (>300 NG/ML) 41 Barbiturate Screen (>200 NG/ML) < 60 Ur Phencyclidine Scrn (>25 NG/ML) < 6.00 Amphetamines Screen (>1000 NG/ML) < 100 U Benzodiazepines Scrn (>200 NG/ML) > 800 H Urine Cocaine Screen (>300 NG/ML) < 50 Urine Cannabis Screen (>50 NG/ML) < 5.00
[2017-04-28 09:19] VITALS: BP 130/80
--- NOTE | 2017-04-28 09:22 | PN- Nephrology ---
Assessment/Plan Assessment: 1. End-stage renal disease. No HD today. likely plan Tuesday. There is no urgent indication. 2. Nausea and vomiting. resolved. 3. Volume status. EDW is 89 Kg (195.8 lb). Still 4. Hypophosphatemia. diet liberalized Suggestion: 1. Hold dialysis today 2. Hold furosemide for now 3. We'll consider a 48 hour urine for residual renal function however that can be accomplished as an outpatient. 4. His estimated dry weight is 89 kg. He is still 2 Kg below EDW below that according to today's weight. It would be appropriate to give NS @ 50 cc/hour for one litre Subjective Subjective: Patiet transfered to ICU with increasing Troponins and an episode of Hypotension. He is not nauseated or dyspneic. he felt better with 1.5 L administered with HD. He is still not voiding. Objective Vital Signs and I&Os Vital Signs Date Time Temp Pulse Resp B/P B/P Pulse O2 O2 Flow FiO2 Mean Ox Delivery Rate 04/28 0919 100 130/80 04/28 0918 104 130/80 04/28 0700 98.7 100 22 141/85 94 Room Air 04/28 0400 99 Nasal 2.0L Cannula 04/28 0000 93 Room Air 04/27 2300 98.4 110 27 120/70 96 Room Air 04/27 2000 Room Air 04/27 1811 99.0 112 10 150/74 97 Room Air Intake & Output 04/28 1600 04/28 0400 04/27 1600 04/27 0400 04/26 1600 04/26 0400 Intake Total 639.8 634.4 860 292.25 Output Total 115 800 Balance 639.8 634.4 745 -507.75 Intake, IV 189.8 184.4 500 20.25 Intake, Oral 450 450 360 272 Number 0 1 Bowel Movements Output, 100 Emesis Output, Urine 115 700 Patient 193 lb 194 lb 189 lb Weight Weight Chair scale Reported by Patient Measurement Method Physical Exam: General Appearance: well developed/nourished, in no acute distress Head: atraumatic, normal appearance Eyes: Bilateral: PERRL, EOMI, pale conjunctivae. Neck: normal inspection, supple, No masss Respiratory: normal breath sounds, chest non-tender, no respiratory distress, lungs clear Cardiovascular: regular rate/rhythm, edema, gallop Gastrointestinal: normal bowel sounds Extremities: normal inspection, normal capillary refill, no edema Neurologic/Psych: no motor/sensory deficits, awake, alert, oriented x 3 Cranial Nerves: normal hearing, normal speech Current Medications: Current Medications Sig/Julissa Start time Last Medication Dose Route Stop Time Status Admin Acetaminophen 1,000 MG .STK-MED ONE 04/27 1922 DC IV 04/27 1923 Acetaminophen 325 MG Q6P PRN 04/26 1330 AC PO Acetaminophen 1,000 MG Q6P PRN 04/26 1330 AC 04/27 IV 1925 Alprazolam 0.5 MG BID PRN 04/26 1430 AC 04/28 PO 05/03 142 0918 Aspirin Buffered 325 MG QPM 04/26 2200 AC 04/27 PO 211 Atorvastatin Calcium 80 MG QPM 04/26 2200 AC 04/27 PO 211 Budesonide/ 2 PUF BID 04/26 1419 AC 04/28 Formoterol Fumarate INH 0917 Clopidogrel Bisulfate 75 MG DAILY 04/26 1419 AC 04/28 PO 09 Cyclobenzaprine HCl 5 MG TID 04/26 1600 AC 04/28 PO 09 Epoetin [place] 8,000 UNIT Tuesday .. 04/27 1000 DC IV Epoetin [place] 8,000 UNIT SAT PRN 04/27 1000 AC IV Furosemide 40 MG BID 04/26 1419 DC PO Heparin Sodium 5,000 UNIT ONCE ONE 04/28 0530 CAN (Porcine) IV 04/28 0531 Heparin Sodium 5,000 UNIT ONCE ONE 04/28 05 DC 04/28 (Porcine) IV 04/28 0521 0535 Heparin Sodium 4,000 UNIT ONCE ONE 04/27 2000 DC 04/27 (Porcine) IV 04/27 2001 211 Heparin Sodium 25,000 UNIT Q24H 04/27 2000 AC 04/27 (Porcine) IV 2123 Sodium Chloride 500 ML Heparin Sodium 5,000 UNIT Q8 04/26 1400 DC 04/27 (Porcine) SC 0543 Insulin Aspart 0 AC & AT BEDTIME 04/28 1200 AC SC Insulin Aspart 0 Q4 04/27 1800 DC 04/28 SC 0516 Insulin Aspart 0 TIDAC 04/26 1745 DC 04/27 SC 1145 Insulin Detemir 6 UNITS DAILY 04/27 1515 AC 04/28 SC 0918 Isosorbide 60 MG DAILY 04/26 1420 AC 04/28 Mononitrate PO 0918 Levothyroxine Sodium 0.274 MG DAILY AC 04/26 1420 AC 04/28 PO 0616 Ondansetron HCl 4 MG ONCE ONE 04/27 1930 DC 04/27 IV 04/27 Pantoprazole Sodium 40 MG ONCE ONE 04/27 1945 DC 04/27 IV 04/27 Patient Medication 1 ED .STK-MED ONE 04/27 1358 DC Teaching ED 04/27 1359 Potassium Chloride 10 MEQ ONCE ONE 04/27 1630 CAN IV 04/27 1631 Ramelteon 8 MG AT BEDTIME 04/26 2200 AC 04/27 PO 211 Sertraline HCl 100 MG DAILY 04/27 1000 AC 04/28 PO 0919 Sodium Chloride 1,000 ML BOLUS ONE 04/27 0745 DC 04/27 IV 04/27 0944 0754 Tamsulosin HCl 0.4 MG DAILY 04/27 1000 AC 04/28 PO 0919 Ticagrelor 90 MG BID 04/26 2200 DC 04/27 PO 1211 Trazodone HCl 150 MG AT BEDTIME 04/26 2200 AC 04/27 PO 2111 Trimethobenzamide HCl 200 MG .STK-MED ONE 04/27 1858 DC IM 04/27 1859 Trimethobenzamide HCl 200 MG 4 TIMES/DAY PRN 04/26 1430 AC 04/27 IM 1833 Results Pertinent Lab Results: Laboratory Tests 04/28 04/28 0400 0000 Chemistry Sodium (137 - 145 mmol/L) 136 L Potassium (3.5 - 5.1 mmol/L) 4.1 Chloride (98 - 107 mmol/L) 99 Carbon Dioxide (22 - 30 mmol/L) 25 Anion Gap (5 - 16) 12 BUN (9 - 20 mg/dL) 11 Creatinine (0.7 - 1.2 mg/dL) 2.8 H Estimated GFR (>60 ml/min) 23 L BUN/Creatinine Ratio (7 - 25 %) 3.9 L Troponin I (<0.11 ng/ml) 10.70 *H 7.47 *H TSH (0.270 - 4.200 uIU/mL) 30.800 H Free T4 (0.78 - 2.44 ng/dL) 0.69 L Cortisol AM Sample (4.46 - 22.7 ug/dL) 8.3 Coagulation APTT (25 - 37 SEC) 33 Hematology CBC w Diff NO MAN DIFF REQ NO MAN DIFF REQ WBC (4.8 - 10.8 /CUMM) 3.1 L 3.2 L RBC (4.70 - 6.10 /CUMM) 3.23 L 3.13 L Hgb (14.0 - 18.0 G/DL) 8.9 L 8.4 L Hct (42 - 52 %) 26.9 L 25.5 L MCV (80.0 - 94.0 FL) 83.1 81.6 MCH (27.0 - 31.0 PG) 27.4 27.0 RDW (11.5 - 14.5 %) 21.6 H 21.5 H Plt Count (130 - 400 /CUMM) 116 L 116 L MPV (7.4 - 10.4 FL) 9.2 8.4 Gran % (42.2 - 75.2 %) 52.3 70.5 Lymphocytes % (20.5 - 51.1 %) 37.6 20.1 L Monocytes % (1.7 - 9.3 %) 8.5 9.0 Eosinophils % (0 - 5 %) 0.7 0 Basophils % (0.0 - 2.0 %) 0.9 0.4 Absolute Granulocytes (1.4 - 6.5 /CUMM) 1.6 2.2 Absolute Lymphocytes (1.2 - 3.4 /CUMM) 1.2 0.6 L Absolute Monocytes (0.10 - 0.60 /CUMM) 0.3 0.3 Absolute Eosinophils (0.0 - 0.7 /CUMM) 0 0 Absolute Basophils (0.0 - 0.2 /CUMM) 0 0 PUBS MCHC (33.0 - 37.0 G/DL) 33.0 33.0 04/27 181 1807 Chemistry Sodium Cancelled Potassium Cancelled Chloride Cancelled Carbon Dioxide Cancelled Anion Gap Cancelled BUN (9 - 20 mg/dL) 9 Cancelled Creatinine Cancelled BUN/Creatinine Ratio Cancelled Troponin I (<0.11 ng/ml) 9.22 *H Hematology CBC w Diff NO MAN DIFF REQ WBC (4.8 - 10.8 /CUMM) 3.9 L RBC (4.70 - 6.10 /CUMM) 3.42 L Hgb (14.0 - 18.0 G/DL) 9.3 L Hct (42 - 52 %) 28.2 L MCV (80.0 - 94.0 FL) 82.5 MCH (27.0 - 31.0 PG) 27.2 RDW (11.5 - 14.5 %) 21.7 H Plt Count (130 - 400 /CUMM) 157 MPV (7.4 - 10.4 FL) 8.3 Gran % (42.2 - 75.2 %) 81.5 H Lymphocytes % (20.5 - 51.1 %) 12.1 L Monocytes % (1.7 - 9.3 %) 6.0 Eosinophils % (0 - 5 %) 0 Basophils % (0.0 - 2.0 %) 0.4 Absolute Granulocytes (1.4 - 6.5 /CUMM) 3.2 Absolute Lymphocytes (1.2 - 3.4 /CUMM) 0.5 L Absolute Monocytes (0.10 - 0.60 /CUMM) 0.2 Absolute Eosinophils (0.0 - 0.7 /CUMM) 0 Absolute Basophils (0.0 - 0.2 /CUMM) 0 PUBS MCHC (33.0 - 37.0 G/DL) 33.0 04/27 04/27 04/27 1300 1000 0105 Chemistry Sodium (137 - 145 mmol/L) 133 L Potassium (3.5 - 5.1 mmol/L) 3.7 Chloride (98 - 107 mmol/L) 98 Carbon Dioxide (22 - 30 mmol/L) 21 L Anion Gap (5 - 16) 13 BUN (9 - 20 mg/dL) 21 H Creatinine (0.7 - 1.2 mg/dL) 4.2 H Estimated GFR (>60 ml/min) 14 L BUN/Creatinine Ratio (7 - 25 %) 5.0 L Calcium (8.4 - 10.2 mg/dL) 7.1 L Phosphorus (2.5 - 4.5 mg/dL) 2.7 1.9 L Magnesium (1.6 - 2.3 mg/dL) 1.7 Troponin I (<0.11 ng/ml) 10.00 *H 1.88 *H Albumin (3.5 - 5.0 g/dL) 3.2 L Hematology CBC w Diff NO MAN DIFF REQ WBC (4.8 - 10.8 /CUMM) 3.2 L RBC (4.70 - 6.10 /CUMM) 3.00 L Hgb (14.0 - 18.0 G/DL) 8.1 L Hct (42 - 52 %) 24.6 L MCV (80.0 - 94.0 FL) 81.8 MCH (27.0 - 31.0 PG) 26.9 L RDW (11.5 - 14.5 %) 21.2 H Plt Count (130 - 400 /CUMM) 115 L MPV (7.4 - 10.4 FL) 9.1 Gran % (42.2 - 75.2 %) 65.1 Lymphocytes % (20.5 - 51.1 %) 27.7 Monocytes % (1.7 - 9.3 %) 6.1 Eosinophils % (0 - 5 %) 0 Basophils % (0.0 - 2.0 %) 1.1 Absolute Granulocytes (1.4 - 6.5 /CUMM) 2.1 Absolute Lymphocytes (1.2 - 3.4 /CUMM) 0.9 L Absolute Monocytes (0.10 - 0.60 /CUMM) 0.2 Absolute Eosinophils (0.0 - 0.7 /CUMM) 0 Absolute Basophils (0.0 - 0.2 /CUMM) 0 PUBS MCHC (33.0 - 37.0 G/DL) 32.8 L Toxicology Urine Opiates Screen (>2000 NG/ML) < 100.00 Methadone Screen (>300 NG/ML) 41 Barbiturate Screen (>200 NG/ML) < 60 Ur Phencyclidine Scrn (>25 NG/ML) < 6.00 Amphetamines Screen (>1000 NG/ML) < 100 U Benzodiazepines Scrn (>200 NG/ML) > 800 H Urine Cocaine Screen (>300 NG/ML) < 50 Urine Cannabis Screen (>50 NG/ML) < 5.00 04/26 04/26 04/26 1548 [id number] Chemistry Sodium (137 - 145 mmol/L) 134 L Potassium (3.5 - 5.1 mmol/L) 4.1 Chloride (98 - 107 mmol/L) 98 Carbon Dioxide (22 - 30 mmol/L) 22 Anion Gap (5 - 16) 14 BUN (9 - 20 mg/dL) 18 Creatinine (0.7 - 1.2 mg/dL) 3.8 H Estimated GFR (>60 ml/min) 16 L BUN/Creatinine Ratio (7 - 25 %) 4.7 L Glucose (65 - 99 mg/dL) 141 H Calcium (8.4 - 10.2 mg/dL) 8.9 Phosphorus (2.5 - 4.5 mg/dL) Cancelled 1.2 L Total Bilirubin (0.2 - 1.3 mg/dL) 2.1 H AST (17 - 59 U/L) 36 ALT (21 - 72 U/L) 31 Alkaline Phosphatase (< 127 U/L) 119 Troponin I (<0.11 ng/ml) 0.50 *H Eke-O-Ciorpevbmjt Pept (<125 pg/mL) 81268 H Total Protein (6.3 - 8.2 g/dL) 7.0 Albumin (3.5 - 5.0 g/dL) 4.2 Globulin (1.9 - 4.2 gm/dL) 2.8 Albumin/Globulin Ratio (1.1 - 2.2 %) 1.5 Coagulation D-Dimer High Sensitivty (0 - 243 ng/ml) 459 H Hematology CBC w Diff NO MAN DIFF REQ WBC (4.8 - 10.8 /CUMM) 4.0 L RBC (4.70 - 6.10 /CUMM) 3.93 L Hgb (14.0 - 18.0 G/DL) 10.7 L Hct (42 - 52 %) 31.9 L MCV (80.0 - 94.0 FL) 81.1 MCH (27.0 - 31.0 PG) 27.1 RDW (11.5 - 14.5 %) 20.5 H Plt Count (130 - 400 /CUMM) 197 MPV (7.4 - 10.4 FL) 8.5 Gran % (42.2 - 75.2 %) 68.4 Lymphocytes % (20.5 - 51.1 %) 24.4 Monocytes % (1.7 - 9.3 %) 6.5 Eosinophils % (0 - 5 %) 0.1 Basophils % (0.0 - 2.0 %) 0.6 Absolute Granulocytes (1.4 - 6.5 /CUMM) 2.7 Absolute Lymphocytes (1.2 - 3.4 /CUMM) 1.0 L Absolute Monocytes (0.10 - 0.60 /CUMM) 0.3 Absolute Eosinophils (0.0 - 0.7 /CUMM) 0 Absolute Basophils (0.0 - 0.2 /CUMM) 0 PUBS MCHC (33.0 - 37.0 G/DL) 33.5 Toxicology Methadone Screen Cancelled Barbiturate Screen Cancelled Ur Phencyclidine Scrn Cancelled Amphetamines Screen Cancelled U Benzodiazepines Scrn Cancelled Urine Cocaine Screen Cancelled Urine Cannabis Screen Cancelled 04/26 0105 Chemistry Troponin I Cancelled
--- NOTE | 2017-04-28 10:57 | PN- Cardiology ---
Subjective Subjective: The patient was noted to develop elevated troponin yesterday. He did not have any chest pain. He had dialysis yesterday when he was noted to have rigors for a few minutes. No palp. No syncope. No palp. Objective Vital Signs and I&Os Vital Signs Date Time Temp Pulse Resp B/P B/P Pulse O2 O2 Flow FiO2 Mean Ox Delivery Rate 04/28 0919 100 130/80 04/28 0918 104 130/80 04/28 0700 98.7 100 22 141/85 94 Room Air 04/28 0400 99 Nasal 2.0L Cannula 04/28 0000 93 Room Air 04/27 2300 98.4 110 27 120/70 96 Room Air 04/27 2000 Room Air 04/27 1811 99.0 112 10 150/74 97 Room Air Intake & Output 04/28 1600 04/28 0800 04/28 0000 04/27 1600 04/27 0800 04/27 0000 Intake Total 639.8 634.4 120 740 292.25 Output Total 115 800 Balance 639.8 634.4 5 740 -507.75 Intake, IV 189.8 184.4 500 20.25 Intake, Oral 450 450 120 240 272 Number 0 1 Bowel Movements Output, 100 Emesis Output, Urine 115 700 Patient 193 lb 193 lb 194 lb Weight Weight Chair scale Measurement Method Physical Exam: Gen: The patient is in no acute distress HEENT: Normal nose, ears, and oropharynx. Pupils equal bilaterally. Conjunctiva normal. Neck: Supple with no JVD, no masses, and no thyromegaly Lungs: Clear to auscultation with normal respiratory effort Heart: RRR, S1, S2, 1/6 systolic murmuyr. No peripheral edema, 2+ pulses in the lower extremities bilaterally Abdomen: Soft, nontender, no masses. No hepatomegaly. No splenomegaly Extremities: No clubbing or cyanosis. Normal muscle strength in the upper and lower extremities Skin: Normal skin turgor with no skin ulcers or lesions noted. Neuro: Cranial nerves intact. Sensation intact Psych: Alert and oriented 3 with appropriate affect Current Medications: Current Medications Sig/Julissa Start time Last Medication Dose Route Stop Time Status Admin Acetaminophen 1,000 MG .STK-MED ONE 04/27 1922 DC IV 04/27 1923 Acetaminophen 325 MG Q6P PRN 04/26 1330 AC PO Acetaminophen 1,000 MG Q6P PRN 04/26 1330 AC 04/27 IV 1925 Alprazolam 0.5 MG BID PRN 04/26 1430 AC 04/28 PO 05/03 1429 0918 Aspirin Buffered 325 MG QPM 04/26 2200 AC 04/27 PO 2111 Atorvastatin Calcium 80 MG QPM 04/26 2200 AC 04/27 PO 2111 Budesonide/ 2 PUF BID 04/26 1419 AC 04/28 Formoterol Fumarate INH 0917 Clopidogrel Bisulfate 75 MG DAILY 04/26 1419 AC 04/28 PO 0919 Cyclobenzaprine HCl 5 MG TID 04/26 1600 AC 04/28 PO 0919 Epoetin [place] 8,000 UNIT TUES THURS SAT PRN 04/27 1000 AC IV Furosemide 40 MG BID 04/26 1419 DC PO Heparin Sodium 5,000 UNIT ONCE ONE 04/28 0530 CAN (Porcine) IV 04/28 0531 Heparin Sodium 5,000 UNIT ONCE ONE 04/28 0520 DC 04/28 (Porcine) IV 04/28 0521 0535 Heparin Sodium 4,000 UNIT ONCE ONE 04/27 2000 DC 04/27 (Porcine) IV 04/27 2001 211 Heparin Sodium 25,000 UNIT Q24H 04/27 2000 AC 04/27 (Porcine) IV 2123 Sodium Chloride 500 ML Heparin Sodium 5,000 UNIT Q8 04/26 1400 DC 04/27 (Porcine) SC 0543 Insulin Aspart 0 AC & AT BEDTIME 04/28 1200 AC SC Insulin Aspart 0 Q4 04/27 1800 DC 04/28 SC 0516 Insulin Aspart 0 TIDAC 04/26 1745 DC 04/27 SC 1145 Insulin Detemir 6 UNITS DAILY 04/27 1515 AC 04/28 SC 0918 Isosorbide 60 MG DAILY 04/26 1420 AC 04/28 Mononitrate PO 0918 Levothyroxine Sodium 0.274 MG DAILY AC 04/26 1420 AC 04/28 PO 0616 Ondansetron HCl 4 MG ONCE ONE 04/27 1930 DC 04/27 IV 04/27 193 194 Pantoprazole Sodium 40 MG ONCE ONE 04/27 1945 DC 04/27 IV 04/27 1946 194 Patient Medication 1 ED .STK-MED ONE 04/27 1358 DC Teaching ED 04/27 1359 Potassium Chloride 10 MEQ ONCE ONE 04/27 1630 CAN IV 04/27 1631 Ramelteon 8 MG AT BEDTIME 04/26 2200 AC 04/27 PO 2110 Sertraline HCl 100 MG DAILY 04/27 1000 AC 04/28 PO 918 Tamsulosin HCl 0.4 MG DAILY 04/27 1000 AC 04/28 PO 09 Ticagrelor 90 MG BID 04/260 DC 04/27 PO 1211 Trazodone HCl 150 MG AT BEDTIME 04/26 2200 AC 04/27 PO 2110 Trimethobenzamide HCl 200 MG .STK-MED ONE 04/27 185 DC IM 04/27 185 Trimethobenzamide HCl 200 MG 4 TIMES/DAY PRN 04/26 1430 AC 04/27 IM 1833 Results Last 48 Hrs of Labs/Mics: Laboratory Tests 04/28/17 0920: Troponin I 10.40 *H 04/28/17 0400: Anion Gap 12, Estimated GFR 23 L, BUN/Creatinine Ratio 3.9 L, Troponin I 10.70 *H, TSH 30.800 H, Free T4 0.69 L, Cortisol AM Sample 8.3, APTT 33, CBC w Diff NO MAN DIFF REQ, RBC 3.23 L, MCV 83.1, MCH 27.4, RDW 21.6 H, MPV 9.2, Gran % 52.3, Lymphocytes % 37.6, Monocytes % 8.5, Eosinophils % 0.7, Basophils % 0.9, Absolute Granulocytes 1.6, Absolute Lymphocytes 1.2, Absolute Monocytes 0.3, Absolute Eosinophils 0, Absolute Basophils 0, PUBS MCHC 33.0 04/28/17 0000: Troponin I 7.47 *H, CBC w Diff NO MAN DIFF REQ, RBC 3.13 L, MCV 81.6, MCH 27.0, RDW 21.5 H, MPV 8.4, Gran % 70.5, Lymphocytes % 20.1 L, Monocytes % 9.0, Eosinophils % 0, Basophils % 0.4, Absolute Granulocytes 2.2, Absolute Lymphocytes 0.6 L, Absolute Monocytes 0.3, Absolute Eosinophils 0, Absolute Basophils 0, PUBS MCHC 33.0 04/27/17 1810: Troponin I 9.22 *H 04/27/17 1810: CBC w Diff NO MAN DIFF REQ, RBC 3.42 L, MCV 82.5, MCH 27.2, RDW 21.7 H, MPV 8.3, Gran % 81.5 H, Lymphocytes % 12.1 L, Monocytes % 6.0, Eosinophils % 0, Basophils % 0.4, Absolute Granulocytes 3.2, Absolute Lymphocytes 0.5 L, Absolute Monocytes 0.2, Absolute Eosinophils 0, Absolute Basophils 0, PUBS MCHC 33.0 04/27/17 1807: Sodium Cancelled, Potassium Cancelled, Chloride Cancelled, Carbon Dioxide Cancelled, Anion Gap Cancelled, BUN Cancelled, Creatinine Cancelled, BUN/ Creatinine Ratio Cancelled 04/27/17 1300: Anion Gap 13, Estimated GFR 14 L, BUN/Creatinine Ratio 5.0 L, Calcium 7.1 L, Phosphorus 2.7, Magnesium 1.7, Troponin I 10.00 *H, Albumin 3.2 L, CBC w Diff NO MAN DIFF REQ, RBC 3.00 L, MCV 81.8, MCH 26.9 L, RDW 21.2 H, MPV 9.1, Gran % 65.1, Lymphocytes % 27.7, Monocytes % 6.1, Eosinophils % 0, Basophils % 1.1, Absolute Granulocytes 2.1, Absolute Lymphocytes 0.9 L, Absolute Monocytes 0.2, Absolute Eosinophils 0, Absolute Basophils 0, PUBS MCHC 32.8 L 04/27/17 1000: Urine Opiates Screen < 100.00, Methadone Screen 41, Barbiturate Screen < 60, Ur Phencyclidine Scrn < 6.00, Amphetamines Screen < 100, U Benzodiazepines Scrn > 800 H, Urine Cocaine Screen < 50, Urine Cannabis Screen < 5.00 04/27/17 0105: Phosphorus 1.9 L, Troponin I 1.88 *H 04/26/17 1548: Methadone Screen Cancelled, Barbiturate Screen Cancelled, Ur Phencyclidine Scrn Cancelled, Amphetamines Screen Cancelled, U Benzodiazepines Scrn Cancelled, Urine Cocaine Screen Cancelled, Urine Cannabis Screen Cancelled 04/26/17 1442: Phosphorus Cancelled 04/26/17 1126: Anion Gap 14, Estimated GFR 16 L, BUN/Creatinine Ratio 4.7 L, Glucose 141 H, Calcium 8.9, Phosphorus 1.2 L, Total Bilirubin 2.1 H, AST 36, ALT 31, Alkaline Phosphatase 119, Troponin I 0.50 *H, Ibj-N-Veikqgacfwi Pept 03936 H, Total Protein 7.0, Albumin 4.2, Globulin 2.8, Albumin/Globulin Ratio 1.5, D-Dimer High Sensitivty 459 H, CBC w Diff NO MAN DIFF REQ, RBC 3.93 L, MCV 81.1, MCH 27.1, RDW 20.5 H, MPV 8.5, Gran % 68.4, Lymphocytes % 24.4, Monocytes % 6.5, Eosinophils % 0.1, Basophils % 0.6, Absolute Granulocytes 2.7, Absolute Lymphocytes 1.0 L, Absolute Monocytes 0.3, Absolute Eosinophils 0, Absolute Basophils 0, PUBS MCHC 33.5 Recent Imaging Studies: CXR: Lungs clear. No acute intrathoracic disease. EKG tracing is reviewed, and reveals sinus tachycardia at 114 with incomple LBBB and LAFB Assessment/Plan Assessment/Plan Assessment: 1. CAD 2. Diabetes mellitus 3. End-stage renal disease 4. Nausea and vomiting 5. Acute Non ST Elevation HI Plan: * IV heparin * Continue Aspirin * Continue Plavix * Continue other cardiac mes * Transfer to [place] for cardiac catheterization with Dr. Paz * Echocardiogram either at [place] or at [place] Continue telemetry? Yes
--- NOTE | 2017-04-28 11:16 | NUR ---
[facility] CALLED. PT ASSIGNED BED. PT GOING TO [facility], [place] [address] [address], BED 2 - DR VELAZCO. REPORT TO BE CALLED TO [phone].
[2017-04-28] MEDS ORDERED: HEPARIN-NS25000 UNIT IV (11:52)
[2017-04-28 12:00] LABS: PTT 27 SEC (25-37)
--- NOTE | 2017-04-28 12:51 | Discharge Summary ---
See Addendum Visit Information Visit Dates Admission Date: 04/26/17 Discharge Date: 04/28/17 Hospital Course Course Attending Physician: IRENE KERN MD Primary [facility] Phys[facility]: Mr. Dodd is a 67-year-old gentleman with a PMH of CAD s/p 6 stents 2 drug eluting stents most recently in Oct 2016, on dual antiplatelet therapy, COPD, T2DM, neuropathy, chronic hypoxic respiratory failure on 2L O2, MILES noncompliant with CPAP, HFpEF, multiple admits for chest pain, dyspnea and elevated troponins , end-stage renal disease on HD //Tue, with a recently had a coagulase- negative staph Bao cath line infection presented to the hospital with an episode of intractable nausea/vomiting. He was noted to have elevated troponins w/o EKG changes. He was placed in observation for treatment. He was admitted last week with hypotension. He also had positive troponins. This admission, his nausea was treated with tigan. he was dialyzed and as he was hypotension and below his dry weight, we was given 1.5L of NS. He was transfered to the ICU for an episode of hypotension in plans of pressor support if needed. He never required pressors, but upon repeat labs, he was found to have a significant jump in his troponin to 10.00, from 1.88. He repeat trop after dialysis was 9.22, then 7.47, but again trended up to 10.70, four hours later. He did not have any chest pain. No palp. No syncope. He was evaluated by cardiology, started on IV heparin. His ASA and plavix were continued, along with his other cardiac meds. As he does have significant coronary disease, and his trop is increasing, we are suspecting underlying impaired coronary perfusion. [place] [facility] was contacted and he is planned for cardiac catheterization at [facility] with Dr. Paz. Allergies: Coded Allergies: Iodinated Contrast- Oral and IV Dye (PER PT STATES HIS KIDNEYS ARE SHOT HE IS ON DIALYSIS 03/27/17) morphine (Mild, LOOPY 01/18/17) hydromorphone (DEPRESSED RESPIRATIONS 01/18/17) Significant Procedures: SERVICE DATE: 04/26/17111 EXAM TYPE: RAD - XRY-PORTABLE CHEST XRAY EXAMINATION: XR PORTABLE CHEST CLINICAL INFORMATION: Vomiting. Possible aspiration. COMPARISON: Portable chest 04/22/2017, 04/12/2017, 03/31/2017, CT abdomen 04/22/2017. TECHNIQUE: Portable upright AP 85 degree view of the chest was obtained. FINDINGS: There is mild elevation right diaphragm similar to prior studies. Right internal jugular dialysis catheter stable in position. The vascularity is normal. There is no pneumothorax, vascular congestion, or interval airspace consolidation. No visible effusion. Heart size normal. Hilar and mediastinal contours and bony structures are stable. IMPRESSION: Lungs clear. No acute intrathoracic disease. Pertinent Lab Results: SERVICE DATE: 04/26/17 EXAM TYPE: CAT - CT ABD & PELVIS W/O IV CONTRAS EXAMINATION: CT ABDOMEN AND PELVIS WITHOUT CONTRAST CLINICAL INFORMATION: Vomiting. Assess for obstruction. COMPARISON: CT abdomen and pelvis without contrast 04/22/2017 and 05/30/2015. TECHNIQUE: Multidetector volumetric imaging was performed from the superior aspect of the liver through the pubic symphysis. Sagittal and coronal reformatted images were obtained on the technologist's workstation. No oral or intravenous contrast. DLP: 422 mGy-cm FINDINGS: LUNG BASES: Small bibasilar effusions again seen. Trace pericardial effusion stable. Fissural-based nodules right lateral base stable from prior exam. LIVER, GALLBLADDER, AND BILIARY TREE: The liver is normal in size and smooth in contour. Again, there are some scattered calcified hepatic granulomata dome left lobe. There is no interval hepatic parenchymal lesion or intrahepatic biliary ductal dilatation. The gallbladder is unremarkable with no evidence of radiopaque gallstones, gallbladder wall thickening, or obvious pericholecystic inflammatory changes. PANCREAS: Unremarkable. SPLEEN: Borderline splenic enlargement measuring 13.6 cm. Prior measurement 14.5 cm. ADRENAL GLANDS: Unremarkable. KIDNEYS AND URETERS: There is no hydronephrosis, hydroureter, or perinephric stranding. There are renovascular calcifications. No visible renal or ureteral calculi. Again, there are bilateral renal cysts largest posterior left lower pole 3.2 cm (8 HU attenuation) and medial right upper pole 4.8 cm (7HU attenuation). BLADDER: Unremarkable. GASTROINTESTINAL TRACT: There is no bowel obstruction or focal inflammatory changes in the bowel or mesentery. The appendix is unremarkable. No ascites or fluid collection. ABDOMINAL WALL: No significant hernia is appreciated. LYMPH NODES: No lymphadenopathy. VASCULAR: Extensive coronary artery atherosclerotic calcifications again seen. Atherosclerotic calcifications aorta, iliac arteries, splenic artery, and renal vascular calcifications. PELVIC VISCERA: Unremarkable. OSSEOUS STRUCTURES: No acute bony abnormality. IMPRESSION: 1. No obstruction or focal inflammatory changes abdomen or pelvis. 2. No hydronephrosis or perinephric stranding. Disposition Summary Disposition Principal Diagnosis: NSTEMI Additional Diagnosis: ESRD DM HTN CHF with pEF Hypothyroidism Discharge Disposition: other general hospital Discharge Instructions General Discharge Information Code Status: Full Code Patient's Diet: NPO, then renal dialysis diet after cath Patient's Activity: As tolerated Follow-Up Instructions/Appts: Please follow up with your owner spa director within 1 week of discharge. Please follow up with your industrial manufacturing technician and continue Medications at Discharge Discharge Medications: Continue taking these medications: Liraglutide (Victoza 3-Zeus) 0.6 MG/0.1 ML (18 MG/3 ML) PEN.INJCTR 1.8 Milligram Inject into fatty tissue Every night Comments: NOT GIVEN IN HOSPITAL Trazodone HCl (Trazodone HCl) 150 MG TABLET 1 Tablet ORAL Every night Qty = 35 Comments: Last Taken: 04/25/17 Time: 10:30 PM Tamsulosin HCl (Tamsulosin HCl) 0.4 MG CAP.ER.24H 1 Capsule ORAL DAILY Qty = 30 Comments: Last Taken: 04/25/17 Time: 11:30 AM Folic Acid (Folic Acid) 1 MG TABLET 1 Tablet ORAL DAILY Qty = 30 Comments: Last Taken: 04/25/17 Time: 11:30 AM Aspirin (Ecotrin*) 325 MG TABLET.DR 1 Tablet ORAL Every night Comments: Last Taken: 04/24/17 Time 10:30 PM Atorvastatin Calcium (Lipitor) 80 MG TABLET 1 Tablet ORAL Every night Comments: Last Taken: 04/24/17 Time: 10:30 PM Alprazolam (Xanax) 0.5 MG TABLET 1 Tablet ORAL TWICE DAILY as needed for ANXIETY Qty = 15 Comments: Last Taken: 04/24/17 Time: 10:45 PM Budesonide/Formoterol Fumarate (Symbicort 160-4.5 Mcg Inhaler) 160 MCG-4.5 MCG/ ACTUATION HFA.AER.AD 2 Puff Inhale through mouth TWICE DAILY Qty = 1 Instructions: Rinse your mouth after using inhaler. Comments: NOT GIVEN WHILE IN HOSPITAL Isosorbide Mononitrate (Isosorbide Mononitrate ER) 60 MG TAB.ER.24H 1 Tablet ORAL DAILY Qty = 30 Comments: Last Taken: 04/25/17 Time: 11:30 AM Ramelteon (Rozerem) 8 MG TABLET 1 Tablet ORAL AT BEDTIME Qty = 30 Comments: Last Taken: 04/24/17 Time: 10:45 PM Sertraline HCl (Zoloft) 100 MG TABLET 1 Tablet ORAL DAILY Comments: Last Taken: 04/25/17 Time: 11:30 AM Clopidogrel Bisulfate (Plavix) 75 MG TABLET 75 Milligram ORAL DAILY Qty = 30 Comments: Last Taken:04/25/17 Time: 11:30 AM Sennosides/Docusate Sodium (Senna S Tablet) 8.6 MG-50 MG TABLET 2 Tablet ORAL Every night Comments: NOT GIVEN IN HOSPITAL Nut.tx.impaired Renal Fxn,Soy (Nepro Carb Steady) (Unknown Strength) LIQUID 120 Milliliters ORAL TWICE DAILY Comments: NOT GIVEN IN HOSPITAL Insulin Aspart (Novolog) 100 UNIT/ML CARTRIDGE 0 Inject into fatty tissue 3 TIMES DAILY BEFORE MEALS Qty = 2 Instructions: BEFORE MEALS... Blood Insulin Sugar Units <80 0 81-100 0 101-200 0 201-250 2 251-300 3 301-350 4 351-400 5 >400 Call Doctor Comments: Last Taken: 04/23/17 Time: 5:15 PM Metoprolol Tartrate (Metoprolol Tartrate) 25 MG TABLET 0.5 Tablet ORAL TWICE DAILY Qty = 60 Amlodipine Besylate (Amlodipine Besylate) 10 MG TABLET 1 Tablet ORAL DAILY Clonidine HCl (Clonidine HCl) 0.1 MG TABLET 1 Tablet ORAL TWICE DAILY Cyclobenzaprine HCl (Cyclobenzaprine HCl) 5 MG TABLET 1 Tablet ORAL THREE TIMES DAILY Diazepam (Diazepam) 5 MG TABLET 1 Tablet ORAL THREE TIMES A DAY NEEDED as needed for SPASMS Furosemide (Furosemide) 80 MG TABLET 1 Tablet ORAL DAILY Furosemide (Furosemide) 40 MG TABLET 1 Tablet ORAL TWICE DAILY Insulin Glargine,Hum.rec.anlog (Lantus Solostar) 100 UNIT/ML (3 ML) INSULN.PEN 62 Unit Inject into fatty tissue Every night Insulin Glargine,Hum.rec.anlog (Lantus Solostar) 100 UNIT/ML (3 ML) INSULN.PEN 5 Unit Inject into fatty tissue TWICE DAILY Losartan/Hydrochlorothiazide (Losartan-Hctz 100-25 MG Tab) 100 MG-25 MG TABLET 1 Tablet ORAL DAILY Levothyroxine Sodium (Levothyroxine Sodium) 137 MCG TABLET 2 Tablet ORAL DAILY BEFORE BREAKFAST Sevelamer Carbonate (Renvela) 800 MG TABLET 2 Tablet ORAL 3 TIMES DAILY BEFORE MEALS Start taking the following new medications: Heparin Sod,Porcine/0.9 % NaCl (Heparin-Ns 25,000 Units/250 Ml) 25,000 UNIT/250 ML (100 UNIT/ML) IV.SOLN 25,000 Units INTRAVEN DAILY Days = 1 No Refills Instructions: PLEASE TITRATE ACCORDING TO aPTT, 2x UPPER LIMIT OF NORMAL. Copies To: CYDNEY PAGE DO, MD,SEVEN Smith; CONCHA ELDRIDGE,IRENE; Geo SHINE MD; CRISS ELDRIDGE,MARIA GUADALUPE
--- NOTE | 2017-04-28 13:13 | PN- Resident CRCU ---
ZEINAB POST 04/28/17 1313: Subjective HPI/CRCU Issues: Mr. Dodd is a 67-year-old gentleman with a PMH of CAD s/p 6 stents 2 drug eluting stents most recently in Oct 2016, on dual antiplatelet therapy, COPD, T2DM, neuropathy, chronic hypoxic respiratory failure on 2L O2, MILES noncompliant with CPAP, HFpEF, multiple admits for chest pain, dyspnea and elevated troponins , end-stage renal disease on HD //Tue, with a recently had a coagulase- negative staph Bao cath line infection presented to the hospital with an episode of intractable nausea/vomiting. He was transferred to the ICU yesterday evening after he bumped his troponin significantly with complaints of some abdominal pain and nausea. His trops continued to rise in spite of HD. He was placed on a heparin drip after cardiology was consulted. This morning, he states his nausea has resolved. He denies any chest pain, palpitations, dyspnea or lightheadedness. Objective Vital Signs & I&O Last 8 Hrs of Vitals and I&O: Intake & Output 04/28 1600 Intake Total 400 Output Total Balance 400 Intake, Oral 400 Number 0 Bowel Movements Patient 87.6 kg Weight Exam General Appearance: well developed/nourished, no apparent distress, alert, awake , comfortable, HEENT: Normal nose, ears, and oropharynx. Pupils equal bilaterally. Conjunctiva normal. Neck: Supple with no JVD, no masses, and no thyromegaly Lungs: Clear to auscultation with normal respiratory effort Heart: RRR, S1, S2, 1/6 systolic murmuyr. No peripheral edema, 2+ pulses in the lower extremities bilaterally Chest: Right BAO cath Abdomen: Soft, nontender, nornal BS Neuro: Cranial nerves intact. Sensation intact Psych: Alert and oriented 3 with appropriate affect Extremities: Left arm AV fistula Current Medications: Current Medications Sig/Julissa Start time Last Medication Dose Route Stop Time Status Admin Acetaminophen 1,000 MG .STK-MED ONE 04/27 1922 DC IV 04/27 1923 Acetaminophen 325 MG Q6P PRN 04/26 1330 AC PO Acetaminophen 1,000 MG Q6P PRN 04/26 1330 AC 04/27 IV 192 Alprazolam 0.5 MG BID PRN 04/26 1430 AC 04/28 PO 05/03 1429 0918 Aspirin Buffered 325 MG QPM 04/26 2200 AC 04/27 PO 2111 Atorvastatin Calcium 80 MG QPM 04/26 2200 AC 04/27 PO 211 Budesonide/ 2 PUF BID 04/26 1419 AC 04/28 Formoterol Fumarate INH 0917 Clopidogrel Bisulfate 75 MG DAILY 04/26 1419 AC 04/28 PO 0919 Cyclobenzaprine HCl 5 MG TID 04/26 1600 AC 04/28 PO 0919 Epoetin [place] 8,000 UNIT TUES THURS SAT PRN 04/27 1000 AC IV Heparin Sodium 5,000 UNIT ONCE ONE 04/28 0530 CAN (Porcine) IV 04/28 0531 Heparin Sodium 5,000 UNIT ONCE ONE 04/28 05 DC 04/28 (Porcine) IV 04/28 0521 0535 Heparin Sodium 4,000 UNIT ONCE ONE 04/27 2000 DC 04/27 (Porcine) IV 04/27 2001 211 Heparin Sodium 25,000 UNIT Q24H 04/27 2000 AC 04/27 (Porcine) IV 212 Sodium Chloride 500 ML Heparin Sodium 5,000 UNIT Q8 04/26 1400 DC 04/27 (Porcine) SC 0543 Insulin Aspart 0 AC & AT BEDTIME 04/28 1200 AC SC Insulin Aspart 0 Q4 04/27 1800 DC 04/28 SC 0516 Insulin Aspart 0 TIDAC 04/26 1745 DC 04/27 SC 1145 Insulin Detemir 6 UNITS DAILY 04/27 1515 AC 04/28 SC 0918 Isosorbide 60 MG DAILY 04/26 1420 AC 04/28 Mononitrate PO 0918 Levothyroxine Sodium 0.274 MG DAILY AC 04/26 1420 AC 04/28 PO 0616 Ondansetron HCl 4 MG ONCE ONE 04/27 1930 DC 04/27 IV 04/27 1931 194 Pantoprazole Sodium 40 MG ONCE ONE 04/27 194 DC 04/27 IV 04/27 1946 194 Potassium Chloride 10 MEQ ONCE ONE 04/27 1630 CAN IV 04/27 1631 Ramelteon 8 MG AT BEDTIME 04/26 2200 AC 04/27 PO 211 Sertraline HCl 100 MG DAILY 04/27 1000 AC 04/28 PO 0919 Tamsulosin HCl 0.4 MG DAILY 04/27 1000 AC 04/28 PO 0919 Trazodone HCl 150 MG AT BEDTIME 04/26 2200 AC 04/27 PO 2111 Trimethobenzamide HCl 200 MG .STK-MED ONE 04/27 1858 DC IM 04/27 1859 Trimethobenzamide HCl 200 MG 4 TIMES/DAY PRN 04/26 1430 AC 04/27 IM 1833 Impression/Plan Impression/Problem List Impression: Mr. Dodd is a 67-year-old gentleman with a PMH of CAD s/p 6 stents 2 drug eluting stents most recently in Oct 2016, on dual antiplatelet therapy, COPD, T2DM, neuropathy, chronic hypoxic respiratory failure on 2L O2, MILES noncompliant with CPAP, HFpEF, multiple admits for chest pain, dyspnea and elevated troponins , end-stage renal disease on HDwho presented to the hospital with an episode of intractable nausea/vomiting, now in the ICU for hypotension and elevated troponins on IV heparin. Respiratory: * No acute distress, saturating 100% on room air. * Goal SPO2 greater than 92 Cardiovascular: * He remains in sinus tachycardia with incomplete left bundle branch block [LAFB ] * His nausea/abdominal pain have resolved. His troponin levels continue to rise , however he does not have any acute EKG changes. * He remains on IV heparin. Continue IV heparin with a goal of PTT 2 times upper limit of normal * He is also on aspirin and Plavix. He was seen and examined by Dr. Zamudio, and will go to [facility] for cardiac catheterization with Dr. Paz Hematology/oncology: * White count 3.1. H&H 8.9/26.9. Platelets 116. * Stable, no acute issues Metabolic: * Nephrology consult appreciated. Electrolytes stable, BUNs/creatinine improved after dialysis 2.8. * No plan for dialysis today. Most likely will require dialysis after cardiac catheterization * Endocrinology consult appreciatd. No change in LT4 dose. We will recheck tomorrow morning. * Borderline am cortisol -- repeat am cortisol and albumin * Continue levemir 6 units daily and Novolog coverage before meals/at bedtime and Novolog Alimentary: * Nothing by mouth for cardiac catheterization DVT prophylaxis: * On IV heparin FULL CODE NPO Transfer to [facility] for Cardiac catheter[facility]. Problem List: 1. Hypothyroidism Pain Ratin Tomorrow's Labs & Rationales: na Plan DVT/Prophylaxis: pharmacological Code Status: Full Code IRENE KERN MD 04/29/171914: Attending MD Review Statement Attending Sign Off Attending Cosign Statement: I have: examined this patient, reviewed avalbl EMR data, personally reviewd images, discussd w/resident/PA/BUNDLE SORTER, discussed mgmt plan w/CM, discussed mgmt plan w/pt, agreed w/resident/PA/BUNDLE SORTER, amended to note. Other Findings: The patient was seen and agree with the plan of care as outlined. Transfer to [facility] for cardiac catheterization.
== END 2017-04-28 13:35 | disposition short-term general hospital (02) | DRG 280 ==
LOC: ERH 10:39 → 1NO 13:17 → ERHI 13:17 → ENRESERV 13:36 → EDBEDREQ 13:43 → ENTRNSPT 14:36 → EDTRNSPTSTS 14:46 → 1NO 14:52 → CMPTRNSPT 15:05 → 1NO 23:17 → ENPENDDIS 04-27 15:35 → EDPENDDISTM 04-27 15:50 → CRI 04-27 17:49
PROVIDERS: Emergency Medicine; Internal Medicine; Student in an Organized Health Care Education/Training Program; ADMIT Internal Medicine
PROC: 5A1D60Z (ICD-10-PCS; principal; 2017-04-27)
DX: I16.0 Hypertensive urgency (principal); I21.4 Non-ST elevation (NSTEMI) myocardial infarction; N18.6 End stage renal disease; J96.11 Chronic respiratory failure with hypoxia; I50.22 Chronic systolic (congestive) heart failure; I13.2 Hypertensive heart and chronic kidney disease with heart failure and with stage 5 chronic kidney disease, or end stage renal disease; E11.22 Type 2 diabetes mellitus with diabetic chronic kidney disease; T46.5X6A Underdosing of other antihypertensive drugs, initial encounter; Z91.138 Patient's unintentional underdosing of medication regimen for other reason; Y92.009 Unspecified place in unspecified non-institutional (private) residence as the place of occurrence of the external cause; E11.65 Type 2 diabetes mellitus with hyperglycemia; Z99.2 Dependence on renal dialysis; Z79.4 Long term (current) use of insulin; I25.10 Atherosclerotic heart disease of native coronary artery without angina pectoris; Z95.5 Presence of coronary angioplasty implant and graft; Z79.02 Long term (current) use of antithrombotics/antiplatelets; J44.9 Chronic obstructive pulmonary disease, unspecified; E11.40 Type 2 diabetes mellitus with diabetic neuropathy, unspecified; G47.33 Obstructive sleep apnea (adult) (pediatric); Z99.81 Dependence on supplemental oxygen; Z91.19 Patient's noncompliance with other medical treatment and regimen; E11.51 Type 2 diabetes mellitus with diabetic peripheral angiopathy without gangrene; E78.5 Hyperlipidemia, unspecified; M54.9 Dorsalgia, unspecified; G89.29 Other chronic pain; Z85.850 Personal history of malignant neoplasm of thyroid; E89.0 Postprocedural hypothyroidism; Z87.891 Personal history of nicotine dependence; R01.1 Cardiac murmur, unspecified; F41.9 Anxiety disorder, unspecified; E83.39 Other disorders of phosphorus metabolism
CPT/HCPCS: 1NP; CCU; 36415; 74176; 80307; 82436; 93005; 93010; 96374; 96376; 99291; J0131; J0885; J1644; J1885; J2060; J2405; J2765; J3250; J3490; J7040

== ENCOUNTER 2017-10-11 19:26 | Emergency (ER) | payer OTHER, MEDICARE ==
[~2017-10-11 19:26] MED LIST changes: +AMLODIPINE BESY10 M1 PO; +CALCIUM CARBON200 MG PO; +CIPRODEX OTIC7.5 ML OT; +CYCLOBENZAPRINE5 M2 PO; +DIAZEPAM5 M1 PO; +FUROSEMIDE40 M1 PO; +FUROSEMIDE80 M1 PO; +HEPARIN-NS25000 UNIT IV; +HYDROXYZINE HCL25 M2 PO; +LOSARTAN POTASS50 M1 PO; +OXYCODONE HCL5 M1 PO; +PROCRIT2000 UNIT/ IV; +PROCRIT3000 UNIT/ IV; +SYNTHROID100 MCG PO; +TIROSINT150 MC1 PO
--- NOTE | 2017-10-11 20:05 | ED GI/GU/ABDOMINAL COMPLAINT ---
History of Present Illness General Chief Complaint: General Adult Stated Complaint: BIBA FOR CONSTIPATION Source: patient, old records, EMS Exam Limitations: no limitations Vital Signs & Intake/Output Vital Signs & Intake/Output Vital Signs Date Time Temp Pulse Resp B/P B/P Pulse O2 O2 Flow FiO2 Mean Ox Delivery Rate 10/12 0012 98.2 83 20 132/78 97 Nasal 2.0L Cannula 10/11 2219 97.5 97 22 141/78 99 Nasal 2.0L Cannula 10/11 1955 Nasal 2.0L Cannula 10/11 193 97.7 89 22 126/67 100 Nasal 2.0L Cannula ED Intake and Output 10/12 0000 10/11 1200 Intake Total Output Total 500 Balance -500 Output, Urine 500 Allergies Coded Allergies: morphine (Mild, LOOPY 01/18/17) hydromorphone (DEPRESSED RESPIRATIONS 01/18/17) Reconcile Medications Alprazolam (Xanax) 0.5 MG TABLET 1 TAB PO BID PRN ANXIETY Aspirin (Ecotrin*) 325 MG TABLET.DR 1 TAB PO QPM CAD (Reported) Calcium Carbonate 200 MG CALCIUM (500 MG) TAB.CHEW 2,500 MG PO WM supplement Clopidogrel Bisulfate (Plavix) 75 MG TABLET 75 MG PO DAILY ANTIPLATELET Cyclobenzaprine HCl 5 MG TABLET 1 TAB PO TID PAIN (Reported) Epoetin [place] (Procrit) 3,000 UNIT/ML VIAL 3,000 UNIT IV TuThSa PRN HEMODIALYSIS Epoetin [place] (Procrit) 2,000 UNIT/ML VIAL 2,000 UNIT IV TuThSa PRN HEMODIALYSIS Folic Acid 1 MG TABLET 1 TAB PO DAILY SUPPLEMENT (Reported) Hydroxyzine Hydrochloride (Atarax) 25 MG TAB 25 MG PO TID PRN ITCHING ONLY 10 PILLS Insulin Aspart (Novolog) 100 UNIT/ML CARTRIDGE 0 SC TIDAC DIABETES BEFORE MEALS... Blood Insulin Sugar Units <80 0 81-150 3 151-200 4 201-250 6 251-300 7 301-350 8 351-400 9 >400 10 Call Doctor Isosorbide Mononitrate (Isosorbide Mononitrate ER) 60 MG TAB.ER.24H 1 TAB PO DAILY CAD Levothyroxine Sodium (Tirosint) 150 MCG CAPSULE 300 MCG PO AT BEDTIME thyroid DO NOT REPLACE WITH GENERIC Losartan Potassium 50 MG TABLET 50 MG PO DAILY high BP Metoprolol Tartrate 25 MG TABLET 0.5 TAB PO BID high blood pressure Oxycodone HCl 5 MG TABLET 5 MG PO Q4-6 PRN PRN moderate to severe pain ONLY 5 PILLS Ramelteon (Rozerem) 8 MG TABLET 1 TAB PO AT BEDTIME SLEEP HELP Sennosides/Docusate Sodium (Senna S Tablet) 8.6 MG-50 MG TABLET 2 TAB PO QPM GI (Reported) Sertraline HCl (Zoloft) 100 MG TABLET 1 TAB PO DAILY ANXIETY (Reported) Sevelamer Carbonate (Renvela) 800 MG TABLET 2 TAB PO TIDAC ERSD (Reported) Tamsulosin HCl 0.4 MG CAP.ER.24H 1 CAP PO DAILY PROSTATE (Reported) Trazodone HCl 150 MG TABLET 1 TAB PO QPM SLEEP (Reported) Triage Note: PT ALEX FROM [facility] WITH C/O CONSTIPATION. PER PT. HE HAS NOT HAD A BOWEL MOVEMENT IN 4 DAYS, AND HAS RECEIVED "3 ENEMAS, 3 SUPPOSITORIES, PLUS A NURSE HAD HER FINGERS WHERE I WON'T EVEN TELL YOU". PT EXPLAINS CURRENT CONSTIPATION FEELS LIKE HE'S "SITTING ON A GRAPEFRUIT". CURRENT PAIN LEVEL 5/10. PT IS A HEMODIALYSIS PT ON T/T/S SCHEDULE, BUT DID NOT HAVE TX TODAY Triage Nurses Notes Reviewed? yes HPI: This is a 67 old male history of diabetes, end-stage renal disease on hemodialysis who [facility] EMS from prison for chief complaint of abdominal pain and constipation. He reports he has not had a bowel movement in 4 days. He states that in the prison they gave him 3 suppositories, 3 enemas without relief. He states he attempted to manually disimpact himself while on the toilet. Patient reports severe pain at the rectum. No fever or chills. Denies any vomiting he does feel nauseous at this time. Patient states that his diet is somewhat changed and has had diminished fluid intake. He is not on any pain medications that would cause him to be constipated. Currently he is there rehabbing secondary to weakness. (Deedee ELDRIDGE,Farzaneh) Past History Travel History Traveled to [place] past 21 day No Medical History Any Pertinent Medical History? see below for history Neurological: proximal muscle pain & weakness UE/LE B/L EENT: NONE Cardiovascular: CAD, hypertension, hyperlipidemia, PVD, 6 CARDIAC STENTS Respiratory: NONE (on O2-2L), COPD Gastrointestinal: hx colon polyps Hepatic: cholelithiasis (vs. 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 FH: heart disease MOTHER, , Age 85; Cause: ASHD (arteriosclerotic heart disease). Relation not specified for: FH: diabetes mellitus FH: hypertension Hx Contributory? No (Farzaneh Mark MD) Review of Systems Review of Systems Constitutional: Denies: chills, fever. EENTM: Reports: no symptoms. Respiratory: Denies: cough, short of breath. Cardiovascular: Denies: chest pain, palpitations. GI: Reports: abdominal pain, constipation, nausea, changes in stool. Denies: diarrhea, vomiting. Genitourinary: Reports: no symptoms. Musculoskeletal: Reports: no symptoms. Skin: Reports: no symptoms. Neurological/Psychological: Reports: no symptoms. Hematologic/Endocrine: Denies: bruising, bleeding, polyuria, polydipsia. Immunologic/Allergic: Reports: no symptoms. All Other Systems: Reviewed and Negative (Farzaneh Mark MD) Physical Exam Physical Exam General Appearance: well developed/nourished, alert, awake Head: atraumatic, normal appearance Eyes: Bilateral: normal appearance, PERRL, EOMI. Ears, Nose, Throat, Mouth: hearing grossly normal, moist mucous membrane Neck: normal inspection, supple, full range of motion Respiratory: normal breath sounds, chest non-tender, no respiratory distress Cardiovascular: regular rate/rhythm Peripheral Pulses: 2+ radial (R), 2+ radial (L) Gastrointestinal: normal bowel sounds, soft, tenderness (LLQ, POSITIVE REBOUND) Rectal: TENDERNESS AT RECTUM, FECAL IMPACTION Back: normal inspection, normal range of motion Extremities: normal range of motion Neurologic/Psych: no motor/sensory deficits, awake, alert, oriented x 3 Skin: intact, normal color, warm/dry Core Measures ACS in differential dx? No Sepsis Present: No Sepsis Focused Exam Completed? No (Deedee ELDRIDGE,Farzaneh) Progress Differential Diagnosis: FECAL IMPACTION, SBO, STERCOCOLITIS, DIVERTICULIITS Plan of Care: Orders Procedure Date/time Status Straight Cath 10/11 2157 Active Enema 10/11 2106 Active 9:59 PM PATIENT STILL WITH RECTAL PAIN, DISTENDED BLADDER ON CT. PATIENT REFUSING STRAIGHT CATH OF BLADDER WITHOUT PAIN CONTROL BECAUSE IT HURTS TOO MUCH. HE IS UNABLE TO VOID ON HIS OWN. 11:04 PM PATIENT FINALLY LET ME DO MANUAL DISIMPACTION. REMAINDER OF SSE TO BE ADMINISTERED. Diagnostic Imaging: Viewed by Me: CT Scan. Discussed w/RAD: CT Scan. Radiology Impression: PATIENT: DEEPIKA BRANDT PRESENT AGE: 67 PATIENT ACCOUNT NO: [id number] : 52 LOCATION: [facility] ORDERING PHYSICIAN: Farzaneh Mark MD SERVICE DATE: 10/11/17 EXAM TYPE: CAT - CT ABD & PELVIS W/O IV CONTRAS EXAMINATION: CT ABDOMEN AND PELVIS WITHOUT CONTRAST CLINICAL INFORMATION: Left lower quadrant pain. COMPARISON: 10/01/2017. TECHNIQUE: Contiguous axial thin section helical images of the abdomen and pelvis were performed without oral or IV contrast. The data set was reformatted in the coronal and sagittal planes and reviewed on an independent workstation. DLP: 453 mGy-cm. FINDINGS: There are [id number] bilateral pleural effusions. The visualized lung bases are otherwise clear. The visualized portions of the heart are unremarkable. The liver is of normal size and attenuation without focal lesions nor intrahepatic biliary ductal dilation. A normal gallbladder is identified. There is no wall thickening or discernible pericholecystic fluid. The spleen, pancreas, adrenal glands are unremarkable. Both kidneys are of normal size and attenuation without hydronephrosis or nephrolithiasis. Within the upper pole of the right kidney, there is a stable exophytic heterogeneous attenuation focus measuring 4.6 cm. There are 2 cysts within the lower pole of the left kidney. The largest measures 3.4 cm. There is no abdominal free fluid. There is neither mesenteric nor retroperitoneal lymphadenopathy. Again identified is a subcutaneous low-attenuation focus superior to the left buttock measuring 4.6 cm with faint increased peripheral attenuation. Normal unopacified loops of small and large bowel are identified. There is no pelvic free fluid. The urinary bladder is unremarkable. There is neither pelvic nor inguinal lymphadenopathy. Bone windows: Neither sclerotic nor lytic bone lesions are identified. IMPRESSION: No evidence for acute abdominal or pelvic inflammatory or infectious processes. Bilateral pleural effusions. Stable exophytic mass emanating from the upper pole of the right kidney. Stable left renal cysts. DICTATED BY: Trevor Rodriguez MD DATE/TIME DICTATED:10/11/172048 DRAW OFF WORKER:SAVANA DATE/TIME TRANSCRIBED:10/11/172048 CONFIDENTIAL, DO NOT COPY WITHOUT APPROPRIATE AUTHORIZATION. <Electronically signed in Other Vendor System> SIGNED BY: Trevor Rodriguez MD 10/11/172058 Initial ED EKG: none Hand-Off Endorsed To: Saravanan Ponce MD Endorsed Time: 2303 Pending: other (SSE) (Farzaneh Mark MD) Departure Departure Condition: Stable Referrals: Kurt ELDRIDGE,Juan Houser (PCP/Family) Departure Forms: Customer Survey General Discharge Information (Farzaneh Mark MD) Departure Disposition: HOME OR SELF CARE Clinical Impression Primary Impression: Constipation Comments pt tolerated soap suds enema... safe for discharge back to [facility]. (Saravanan Ponce MD)
--- NOTE | 2017-10-11 20:59 | CT SCAN REPORT ---
EXAMINATION: CT ABDOMEN AND PELVIS WITHOUT CONTRAST CLINICAL INFORMATION: Left lower quadrant pain. COMPARISON: 10/01/2017. TECHNIQUE: Contiguous axial thin section helical images of the abdomen and pelvis were performed without oral or IV contrast. The data set was reformatted in the coronal and sagittal planes and reviewed on an independent workstation. DLP: 453 mGy-cm. FINDINGS: There are [id number] bilateral pleural effusions. The visualized lung bases are otherwise clear. The visualized portions of the heart are unremarkable. The liver is of normal size and attenuation without focal lesions nor intrahepatic biliary ductal dilation. A normal gallbladder is identified. There is no wall thickening or discernible pericholecystic fluid. The spleen, pancreas, adrenal glands are unremarkable. Both kidneys are of normal size and attenuation without hydronephrosis or nephrolithiasis. Within the upper pole of the right kidney, there is a stable exophytic heterogeneous attenuation focus measuring 4.6 cm. There are 2 cysts within the lower pole of the left kidney. The largest measures 3.4 cm. There is no abdominal free fluid. There is neither mesenteric nor retroperitoneal lymphadenopathy. Again identified is a subcutaneous low-attenuation focus superior to the left buttock measuring 4.6 cm with faint increased peripheral attenuation. Normal unopacified loops of small and large bowel are identified. There is no pelvic free fluid. The urinary bladder is unremarkable. There is neither pelvic nor inguinal lymphadenopathy. Bone windows: Neither sclerotic nor lytic bone lesions are identified. IMPRESSION: No evidence for acute abdominal or pelvic inflammatory or infectious processes. Bilateral pleural effusions. Stable exophytic mass emanating from the upper pole of the right kidney. Stable left renal cysts.
[2017-10-12 00:12] VITALS: BP 132/78
== END 2017-10-12 00:17 ==
LOC: ERH 19:26
DX: K59.00 Constipation, unspecified (principal)
CPT/HCPCS: 74176; 96374

== ENCOUNTER 2017-11-22 13:35 | Inpatient (IN) | payer OTHER, MEDICARE ==
[~2017-11-22] VITALS: Ht 177.8 cm; Wt 79.2 kg
--- NOTE | 2017-11-22 14:12 | ED DYSPNEA/ASTHMA COMPLAINT ---
History of Present Illness General Chief Complaint: Dyspnea (COPD, CHF, Other) Stated Complaint: SOB Source: patient Exam Limitations: no limitations Vital Signs & Intake/Output Vital Signs & Intake/Output Vital Signs Date Time Temp Pulse Resp B/P B/P Pulse O2 O2 Flow FiO2 Mean Ox Delivery Rate 11/22 1640 97.4 77 20 103/71 100 Nasal 2.0L Cannula 11/22 1426 Nasal Cannula 11/22 1413 100 Nasal 2.0L Cannula 11/22 1357 97.6 80 24 108/74 100 Nasal 2.0L Cannula Allergies Coded Allergies: morphine (Mild, LOOPY 01/18/17) hydromorphone (DEPRESSED RESPIRATIONS 01/18/17) Reconcile Medications Alprazolam (Xanax) 0.5 MG TABLET 1 TAB PO BID PRN ANXIETY Aspirin (Ecotrin*) 325 MG TABLET.DR 1 TAB PO QPM CAD (Reported) Calcium Carbonate 200 MG CALCIUM (500 MG) TAB.CHEW 2,500 MG PO WM supplement Clopidogrel Bisulfate (Plavix) 75 MG TABLET 75 MG PO DAILY ANTIPLATELET Cyclobenzaprine HCl 5 MG TABLET 1 TAB PO TID PAIN (Reported) Epoetin [place] (Procrit) 3,000 UNIT/ML VIAL 3,000 UNIT IV TuThSa PRN HEMODIALYSIS Epoetin [place] (Procrit) 2,000 UNIT/ML VIAL 2,000 UNIT IV TuThSa PRN HEMODIALYSIS Folic Acid 1 MG TABLET 1 TAB PO DAILY SUPPLEMENT (Reported) Hydroxyzine Hydrochloride (Atarax) 25 MG TAB 25 MG PO TID PRN ITCHING ONLY 10 PILLS Insulin Aspart (Novolog) 100 UNIT/ML CARTRIDGE 0 SC TIDAC DIABETES BEFORE MEALS... Blood Insulin Sugar Units <80 0 81-150 3 151-200 4 201-250 6 251-300 7 301-350 8 351-400 9 >400 10 Call Doctor Isosorbide Mononitrate (Isosorbide Mononitrate ER) 60 MG TAB.ER.24H 1 TAB PO DAILY CAD Levothyroxine Sodium (Tirosint) 150 MCG CAPSULE 300 MCG PO AT BEDTIME thyroid DO NOT REPLACE WITH GENERIC Losartan Potassium 50 MG TABLET 50 MG PO DAILY high BP Metoprolol Tartrate 25 MG TABLET 0.5 TAB PO BID high blood pressure Oxycodone HCl 5 MG TABLET 5 MG PO Q4-6 PRN PRN moderate to severe pain ONLY 5 PILLS Ramelteon (Rozerem) 8 MG TABLET 1 TAB PO AT BEDTIME SLEEP HELP Sennosides/Docusate Sodium (Senna S Tablet) 8.6 MG-50 MG TABLET 2 TAB PO QPM GI (Reported) Sertraline HCl (Zoloft) 100 MG TABLET 1 TAB PO DAILY ANXIETY (Reported) Sevelamer Carbonate (Renvela) 800 MG TABLET 2 TAB PO TIDAC ERSD (Reported) Tamsulosin HCl 0.4 MG CAP.ER.24H 1 CAP PO DAILY PROSTATE (Reported) Trazodone HCl 150 MG TABLET 1 TAB PO QPM SLEEP (Reported) Triage Note: PT BIBA FOR DYSPNEA WHILE WORKING WITH PHYSICAL THERAPY AT HOME. PT WEARS O2 AT 2L BASELINE. ARRIVED ON NON-REBREATHER SATTING 100%. HX OF COPD. OF NOTE PT WAS SCHEDULED FOR DIALYSIS TODAY. Triage Nurses Notes Reviewed? yes Onset: Gradual Duration: worse persistent since (1 DAY) Timing: recent history Severity: moderate Activities at Onset: PHYSICAL THERAPY Prior Episodes/Possible Cause: occasional episodes HPI: Patient is a 67-year-old male with history of COPD, on 2 L nasal cannula chronically presenting to the emergency department chief complaining of increasing shortness of breath that started after doing physical therapy this morning. Patient denies any cc chest pain. Patient does report diffuse body aches and chills. No fevers. Has not taken anything for pain prior to arrival. He was due for dialysis today but has not gone because he came in for evaluation of shortness of breath. Patient denies any increasing lower extremity swelling. Patient does report diffuse itchiness, reports that he scratches his skin in his sleep and has been doing this for a while. His primary care physician recently, medication help with itching. Reports it has not been helping. Denies palpitations. No sick contacts or recent travel. (Jose Carlos VARGAS,Anny) Past History Travel History Traveled to [place] past 21 day No Medical History Any Pertinent Medical History? see below for history Neurological: proximal muscle pain & weakness UE/LE B/L EENT: NONE Cardiovascular: CAD, hypertension, hyperlipidemia, PVD, 6 CARDIAC STENTS Respiratory: NONE (on O2-2L), COPD Gastrointestinal: hx colon polyps Hepatic: cholelithiasis (vs. 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 FH: heart disease MOTHER, , Age 85; Cause: ASHD (arteriosclerotic heart disease). Relation not specified for: FH: diabetes mellitus FH: hypertension Hx Contributory? Yes (Anny Langford) Review of Systems Review of Systems Constitutional: Reports: see HPI, malaise. Comments Review of systems: See HPI, All other systems negative. Constitutional, no fever or weight loss HEENT: No visual changes no sore throat no congestion Cardiovascular: No chest pain ,palpitation , orthopnea or ankle swelling Skin, no jaundice no rashes Respiratory: No sputum or hemoptysis GI: No nausea no vomiting : No dysuria No hematuria Muscle skeletal: no back pain, no neck pain, Neurologic: No numbness no confusion, no headaches Psych: No stress anxiety or depression,. Heme/endocrine: No bruising no bleeding no polyuria or polydipsia Immunology: No splenectomy or history of AIDS (Anny Langford) Physical Exam Physical Exam General Appearance: alert, anxious, mild distress Respiratory: decreased breath sounds Comments: Well-developed well-nourished person in mild distress HEENT: Pupils equally round and reactive to light and accommodation. Nose is atraumatic. External auditory canal and Tympanic membranes clear. Pharynx normal. No swelling or edema. Slightly dry oral mucosa. Neck: Supple, no lymphadenopathy, normal range of motion without pain or tenderness Back: Nontender, no CVA tenderness. Full range of motion Cardiovascular: Regular rate and rhythms no murmurs rubs or gallops Respiratory: Chest nontender. No respiratory distress.breath sounds diminished to auscultation bilaterally Abdomen: Soft, nontender nondistended, no appreciable organomegaly. Normal bowel sounds. No ascites [place] rebound or guarding. Extremity: 2+ pitting edema in the lower extremities bilaterally, mild erythema over the lower extremities bilaterally, several old excoriations noted over the upper and lower extremities. Pain to palpation over the upper and lower extremities diffusely. No focal tenderness. Limited range of motion secondary to pain. Neuro: Alert oriented x3, motor sensory normal, cranial nerves II through XII grossly intact. Skin: Diffuse excoriations and scabbing noted over the upper and lower extremities and the trunk area. Skin is dry. Psych: Mood and affect is normal, memory and judgment is normal. Core Measures ACS in differential dx? Yes CVA/TIA Diagnosis Yes Sepsis Present: No Sepsis Focused Exam Completed? No (Jose Carlos VARGAS,Anny) Progress Differential Diagnosis: asthma, AMI, bronchitis, costochondritis, CHF, COPD, musculoskeletal pain, pneumonia, unstable angina, CHF, CELLULITIS, VIRAL SYNDROME, INFLUENZA Diagnostic Imaging: Viewed by Me: Radiology Read. Discussed w/RAD: Radiology Read. Radiology Impression: ATIENT: DEEPIKA BRANDT PRESENT AGE: 67 PATIENT ACCOUNT NO: [id number] : 52 LOCATION: [facility] ORDERING PHYSICIAN: Anny VARGAS SERVICE DATE: 11/22/17 EXAM TYPE: RAD - XRY-PORTABLE CHEST XRAY EXAMINATION: XR PORTABLE CHEST CLINICAL INFORMATION: Shortness of breath. COMPARISON: Chest x-ray 09/25/2017 TECHNIQUE: Portable frontal view of the chest was obtained. 2:45 PM FINDINGS: Increased moderate prominence of the central hilar vasculature and increased moderate interstitial lung markings consistent with pulmonary vascular congestion with interstitial edema. No large pleural effusion. No focal consolidation. There is asymmetric elevation of the right diaphragm compared to left. IMPRESSION: Increased pulmonary vascular congestion and interstitial edema compared to prior chest x-ray 09/25/2017. DICTATED BY: Abebe Seth MD DATE/TIME DICTATED:11/22/171518 BIODIESEL PROCESSING TECHNICIAN:SAVANA DATE/TIME TRANSCRIBED:11/22/171518 CONFIDENTIAL, DO NOT COPY WITHOUT APPROPRIATE AUTHORIZATION. <Electronically signed in Other Vendor System> SIGNED BY: Abebe Seth MD 11/22/17 9449 Initial ED EKG: SINUS RHYTHM AT 77 BPM INFERIOR INFARCT OLD, LONG qt INTERVAL (Anny Langford) Plan of Care: Orders Procedure Date/time Status Renal Dialysis Diet 11/23 B Active Patient Data 11/22 1910 Active Misc Message 11/22 1908 Active ED Holding Orders 11/22 1908 Active Admit to inpatient 11/22 1908 Active Vital Signs 11/22 1908 Active Code Status 11/22 1908 Active EKG 11/22 1426 Active Telemetry/Regional Office Coordinator 11/22 142 Active PARTIAL THROMBOPLASTIN TIME 11/22 142 Complete PROTHROMBIN TIME 11/22 1423 Complete RAPID VIRAL INFLUENZA A 11/22 1422 Complete TROPONIN LEVEL 11/22 1422 Complete COMPREHENSIVE METABOLIC PANEL 11/22 1422 Complete CBC WITHOUT DIFFERENTIAL 11/22 142 Complete B-TYPE NATRIURETIC PEP (BNP) 11/22 1422 Complete Intake & Output 11/22 1410 Active Current Medications Sig/Julissa Start time Last Medication Dose Stop Time Status Admin Lorazepam 1 MG ONCE ONE 11/22 1500 CAN (Ativan) 11/22 1501 Laboratory Tests 11/22/17 1625: Anion Gap 19 H, Estimated GFR 10 L, BUN/Creatinine Ratio 11.5, Glucose 243 H, Calcium 6.7 L, Total Bilirubin 1.7 H, AST 27, ALT 38, Alkaline Phosphatase 417 H, Troponin I 0.92 *H, Uoz-V-Nvcwfsuhkhi Pept > 62340 H, Total Protein 6.7, Albumin 3.7, Globulin 3.0, Albumin/Globulin Ratio 1.2, PT 13.4 H, INR 1.28 H, APTT 37, CBC w Diff NO MAN DIFF REQ, RBC 5.06, MCV 88.6, MCH 28.9, MCHC 32.6 L, RDW 17.8 H, MPV 8.6, Gran % 83.3 H, Lymphocytes % 11.0 L, Monocytes % 5.2, Eosinophils % 0.2, Basophils % 0.3, Absolute Granulocytes 5.1, Absolute Lymphocytes 0.7 L, Absolute Monocytes 0.3, Absolute Eosinophils 0, Absolute Basophils 0 Microbiology 11/22 1637 NASOPHARYN: Influenza Virus A & B Rapid Smear - COMP INFLUENZA TYPE B Comments: 11/22/2017 5:39:14 PM I have discussed this patient's case with Dr. Pina. Patient to be admitted given his pulmonary edema on chest x-ray complicated by influenza and missed dialysis today. Patient is at risk of worsening pulmonary edema, hypoxia and respiratory failure and mortality. His troponin is elevated and although it is chronically elevated, his troponin is higher than his baseline placing him at risk of acute coronary syndrome/SD. Patient's troponin should be trended and cardiology consultation obtained as needed. Oxygen should be supplemented as needed to maintain normal oxygen saturations. This patient's presentation/condition is challenging given his congestive heart failure in the face of renal failure/dialysis. The usual treatment with Lasix and induced diuresis would be ineffective in this patient. 11/22/2017 5:49:22 PM patient's case discussed with Dr. Zamudio who agrees with the above. (Benita ELDRIDGE,Hugo Jay) Departure Departure Time of Disposition: 1801 Disposition: STILL A PATIENT Condition: Stable Clinical Impression Primary Impression: Volume overload Qualifiers: Hypervolemia type: unspecified Qualified Code: E87.70 - Fluid overload, unspecified Secondary Impressions: Elevated troponin Referrals: Kurt ELDRIDGE,Juan Houser Departure Forms: Customer Survey General Discharge Information Admission Note Spoke With: Ariane Pina MD Documentation of Exam: Documentation of any treatments & extenuating circumstances including Concerns Regarding Discharge (functional status, medication knowledge or non-compliance, living conditions, etc.) that warrant an admission rather than observation: Patient requiring supplemental oxygen, requiring cardiology consultation, trending troponins and EKG, patient will require dialysis which will help with fluid overload, discharge at this time is medically harmful. (Anny Langford) Critical Care Note Critical Care Note Critical Care Time: 30-74 min (Anny Langford)
--- NOTE | 2017-11-22 15:24 | RADIOLOGY REPORT ---
EXAMINATION: XR PORTABLE CHEST CLINICAL INFORMATION: Shortness of breath. COMPARISON: Chest x-ray 09/25/2017 TECHNIQUE: Portable frontal view of the chest was obtained. 2:45 PM FINDINGS: Increased moderate prominence of the central hilar vasculature and increased moderate interstitial lung markings consistent with pulmonary vascular congestion with interstitial edema. No large pleural effusion. No focal consolidation. There is asymmetric elevation of the right diaphragm compared to left. IMPRESSION: Increased pulmonary vascular congestion and interstitial edema compared to prior chest x-ray 09/25/2017.
[2017-11-22 16:33] LABS: ABSOLUTE BASOPHIL COUNT 0 /CUMM (0.0-0.2); ABSOLUTE EOSINOPHIL COUNT 0 /CUMM (0.0-0.7); ABSOLUTE GRANULOCYTE CT 5.1 /CUMM (1.4-6.5); ABSOLUTE LYMPH COUNT 0.7 /CUMM (1.2-3.4); ABSOLUTE MONOCYTE COUNT 0.3 /CUMM (0.10-0.60); BASOPHIL % 0.3 % (0.0-2.0); EOSINOPHIL % 0.2 % (0-5); GRANULOCYTE % 83.3 % (42.2-75.2); HEMATOCRIT 44.9 % (42-52); MEAN CORPUSCULAR HGB 28.9 PG (27.0-31.0); MEAN CORPUSCULAR HGB CONC 32.6 G/DL (33.0-37.0); MEAN CORPUSCULAR VOLUME 88.6 FL (80.0-94.0); MEAN PLATELET VOLUME 8.6 FL (7.4-10.4); PLATELET COUNT 261 /CUMM (130-400); RBC DISTRIBUTION WIDTH 17.8 % (11.5-14.5); RED BLOOD CELL CT 5.06 /CUMM (4.70-6.10); WHITE BLOOD CELL COUNT 6.1 /CUMM (4.8-10.8)
[2017-11-22 16:42] LABS: PT 13.4 SEC (9.4-12.5); PTT 37 SEC (25-37)
--- NOTE | 2017-11-22 19:41 | History & Physical ---
[facility] General Information and HPI History of Present Illness: 67-year-old gentleman who lives with his girlfriend with past medical history of COPD on 2 L of oxygen, coronary artery disease status post 6 stents last placed in November 2016, hypertension, hyperlipidemia, peripheral vascular disease [ left leg stent], colon polyp, end-stage renal disease on hemodialysis [has left arm AV fistula], chronic low back pain, anxiety, depression, diabetes, thyroid cancer status post thyroidectomy came to [facility] with complaints of shortness of breath, myalgia, itching and found to be influenza type B positive. Patient was in usual state of health until today morning, felt very short of breath following a physical therapy session. He had a dialysis schedule today which he couldn't attend because of his increased shortness of breath. He has shortmess of breath for past couple of days which got worse today morning accompanied with anxiety. He felt lousy to attend dialysis session today. His girlfriend called 911 to be brought to [facility]. The shortness of breath was associated with nausea and one time vomiting which contained bile and had dry heaves later. He denied chest pain, chest pressure, left arm pain, lower abdominal pain, headache , weakness, altered sensation, loss of consciousness, trauma. Patient has increased itching for the past 2 weeks and saw his primary care physician who gave him Hydroxazine. Patient also complains of decreased by mouth intake since October. Patient was recently admitted in September for weakness and lethargy. He had a left arm fistula done during the same time [patient underwent fistula angioplasty and stent displacement by vascular surgery which was successful] He also found to have bilateral renal cyst. Patient used to be a past smoker, smoking for packs a day for the past 40 years and he quit 4 years ago. Occasional alcoholic. He is to take illicit drugs 20 years ago. Patient had myalgia and increased liver enzymes and his Lipitor was stopped during September 2017. Patient had colonoscopy done 2 years ago and had 11 polyps removed. Patient had left knee and both elbow surgeries done in the past. Patient still making urine and takes Lasix every day. Patient had 100 pound weight loss in one year. There was no recent change in his medication other than Lipitor which was stopped. Allergies/Medications Allergies: Coded Allergies: morphine (Mild, LOOPY 01/18/17) hydromorphone (DEPRESSED RESPIRATIONS 01/18/17) Compliance With Home Meds: GOOD Past History Travel History Traveled to [place] past 21 day No Medical History Neurological: proximal muscle pain & weakness UE/LE B/L EENT: NONE Cardiovascular: CAD, hypertension, hyperlipidemia, PVD, 6 CARDIAC STENTS Respiratory: NONE (on O2-2L), COPD Gastrointestinal: hx colon polyps Hepatic: cholelithiasis (vs. 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 FH: heart disease MOTHER, , Age 85; Cause: ASHD (arteriosclerotic heart disease). Relation not specified for: FH: diabetes mellitus FH: hypertension Psychosocial History Where do you live? Home Who Do You Live With? girlfriend Services at Home: Oxygen Primary Language: Occitan Smoking Status: Former Smoker ETOH Use: occasional use Illicit Drug Use: denies illicit drug use Living Will? no Power of Relations Director/HCP? no Functional Ability ADLs Independent: dressing, eating, toileting, bathing. Ambulation: independent (and/or rolling walker), cane IADLs Independent: shopping, housework, finances, food prep, telephone, transportation , medication admin. Review of Systems Review of Systems Constitutional: Reports: malaise. EENTM: Reports: no symptoms. Cardiovascular: Reports: no symptoms. Respiratory: Reports: short of breath. GI: Reports: nausea, vomiting. Genitourinary: Reports: no symptoms. Skin: Reports: rash (itching). Exam & Diagnostic Data Last 24 Hrs of Vital Signs/I&O Vital Signs Date Time Temp Pulse Resp B/P B/P Pulse O2 O2 Flow FiO2 Mean Ox Delivery Rate 11/224 Nasal 2.0L Cannula 02/13 2236 97.0 83 20 110/70 93 11/22 2100 Nasal 2.0L Cannula 11/22 2041 97.6 77 20 100/64 100 Nasal 2.0L Cannula 11/22 1640 97.4 77 20 103/71 100 Nasal 2.0L Cannula 11/22 1426 Nasal Cannula 11/22 1413 100 Nasal 2.0L Cannula 11/22 1357 97.6 80 24 108/74 100 Nasal 2.0L Cannula Intake & Output 11/23 0800 11/23 0000 11/22 1600 Intake Total 0 Output Total Balance 0 Intake, Oral 0 Patient 188 lb 185 lb Weight Weight Bed scale Reported by Patient Measurement Method Physical Exam General Appearance Alert, Oriented X3, Cooperative, Mild Distress Skin extensive excoriation HEENT PERRLA, Mucous Membr. moist/pink Neck Supple, No JVD, No thryomegaly Cardiovascular Normal S1, Normal S2, No Murmurs Lungs Clear to Auscultation Abdomen Soft, No Tenderness, No Hepatospenomegaly Neurological Strength at 5/5 X4 Ext, Normal Tone, Sensation Intact, Cranial Nerves 3-12 NL Extremities bilateral 1+ pedal edema. Last 24 Hrs of Labs/Angus: Laboratory Tests 11/22/17 1625: Anion Gap 19 H, Estimated GFR 10 L, BUN/Creatinine Ratio 11.5, Glucose 243 H, Calcium 6.7 L, Total Bilirubin 1.7 H, Direct Bilirubin 1.7 H, GGT 828 H, AST 27, ALT 38, Alkaline Phosphatase 417 H, Troponin I 0.92 *H, Odx-[id number]-[id number] Pept > 47122 H, Total Protein 6.7, Albumin 3.7, Globulin 3.0, Albumin/Globulin Ratio 1.2, PT 13.4 H, INR 1.28 H, APTT 37, CBC w Diff NO MAN DIFF REQ, RBC 5.06, MCV 88.6, MCH 28.9, MCHC 32.6 L, RDW 17.8 H, MPV 8.6, Gran % 83.3 H, Lymphocytes % 11.0 L, Monocytes % 5.2, Eosinophils % 0.2, Basophils % 0.3, Absolute Granulocytes 5.1, Absolute Lymphocytes 0.7 L, Absolute Monocytes 0.3, Absolute Eosinophils 0, Absolute Basophils 0 Microbiology 11/22 1637 NASOPHARYN: Influenza Virus A & B Rapid Smear - COMP INFLUENZA TYPE B Diagnostic Data EKG Results Sinus rhythm, QTC 548, first-degree AV block CXR Results IMPRESSION: Increased pulmonary vascular congestion and interstitial edema compared to prior chest x-ray 09/25/2017. Assessment/Plan Assessment: 67-year-old gentleman with past medical history of COPD on 2 L of oxygen, coronary artery disease status post 6 stents last placed in November 2016, hypertension, hyperlipidemia, peripheral vascular disease [left leg stent], colon polyp, end-stage renal disease on hemodialysis [has left arm AV fistula], chronic low back pain, anxiety, depression, diabetes, thyroid cancer status post thyroidectomy came to [place] [facility] with complaints of shortness of breath, myalgia , itching and found to be influenza type B positive. Admission labs-WBC 6.1, hemoglobin 14.6, sodium 132, potassium 4.8, BUNs 68, creatinine 5.9, total bilirubin 1.7, calcium 6.7, glucose 243, alkaline phosphatase 4.7, troponin 0.92, proBNP 35,000, influenza type B+ Admission vitals-temperature 97.6, blood pressure 103/71, respiratory rate 20, pulse rate 83 on 2 L of oxygen. ED treatment-albuterol, ipratropium, Ativan 1 mg by mouth Imaging-IMPRESSION: Increased pulmonary vascular congestion and interstitial edema compared to prior chest x-ray 09/25/2017. Assessment and plan 1. We will admit in telemetry. Serial troponin and EKG. 2. Patient has borderline blood pressure and we will hold Lasix, metoprolol, losartan. Patient was scheduled for hemodialysis today, which he missed due to this admission. We will get a nephrology consult for hemodialysis. 3. Cardiology consult in a.m. 4. Strict I's and O's. Daily weights. 5. We will start him on Tamiflu 30 mg daily-renally adjusted dose. 6. Patient has high colored urine and increased alkaline phosphatase. We will get a GGT and right upper quadrant ultrasound in a.m. We will get a GI consult in a.m. patient was extensively worked up last admission for myalgia and found to have elevated liver enzymes and CPK and his Lipitor was stopped. Hepatitis panel negative, Antinuclear antibody, anti-smooth muscle antibody, rheumatoid factor, ANCA titer liver/kidney microsomal type and antibody negative in the last admission 7. Patient sees Jose A Zuniga MD David Moll, MD as outpatient. Patient has left arm AV fistula which appears clean with no swelling or erythema. Code-full code Diet - renal diet As Ranked By This Provider Problem List: 1. ESRD (end stage renal disease) 2. Shortness of breath 3. Influenza B Core Measures/Misc (06/26) Acute Coronary Syndrome ACS Diagnosis: No Congestive Heart Failure Congestive Heart Failure Diagnosis No Cerebrovascular Accident CVA/TIA Diagnosis: No VTE (View Protocol) VTE Risk Factors Age>40 No Mechanical VTE Prophylaxis d/t Other No VTE Pharm Prophylaxis d/t Other Sepsis (View protocol) Sepsis Present: No Paulino ELDRIDGE,[facility] 11/22/171942: General Information and HPI Allergies/Medications Home Med list Alprazolam (Xanax) 0.5 MG TABLET 1 TAB PO BID PRN ANXIETY Aspirin (Ecotrin*) 325 MG TABLET. 1 TAB PO QPM CAD (Reported) Calcium Carbonate 200 MG CALCIUM (500 MG) TAB.CHEW 2,500 MG PO WM supplement Clopidogrel Bisulfate (Plavix) 75 MG TABLET 75 MG PO DAILY ANTIPLATELET Cyclobenzaprine HCl 5 MG TABLET 1 TAB PO TID PAIN (Reported) Epoetin [place] (Procrit) 3,000 UNIT/ML VIAL 3,000 UNIT IV TuThSa PRN HEMODIALYSIS Epoetin [place] (Procrit) 2,000 UNIT/ML VIAL 2,000 UNIT IV TuThSa PRN HEMODIALYSIS Folic Acid 1 MG TABLET 1 TAB PO DAILY SUPPLEMENT (Reported) Hydroxyzine Hydrochloride (Atarax) 25 MG TAB 1 TAB PO TID PRN ITCHING ONLY 10 PILLS. Insulin Aspart (Novolog) 100 UNIT/ML CARTRIDGE 0 SC TIDAC DIABETES BEFORE MEALS... Blood Insulin Sugar Units <80 0 81-150 3 151-200 4 201-250 6 251-300 7 301-350 8 351-400 9 >400 10 Call Doctor Isosorbide Mononitrate (Isosorbide Mononitrate ER) 60 MG TAB.ER.24H 1 TAB PO DAILY CAD Levothyroxine Sodium (Tirosint) 150 MCG CAPSULE 200 MCG PO AT BEDTIME thyroid DO NOT REPLACE WITH GENERIC. Losartan Potassium 50 MG TABLET 50 MG PO DAILY high BP Metoprolol Tartrate 25 MG TABLET 0.5 TAB PO BID high blood pressure Oseltamivir Phosphate (Tamiflu) 30 MG CAPSULE 1 TAB PO SEE ADMIN CRITERIA FLU Please take 1 pill on 11/26 after your hemodialysis treatment. Ramelteon (Rozerem) 8 MG TABLET 1 TAB PO AT BEDTIME SLEEP HELP Sennosides/Docusate Sodium (Senna S Tablet) 8.6 MG-50 MG TABLET 2 TAB PO QPM GI (Reported) Sertraline HCl (Zoloft) 100 MG TABLET 1 TAB PO DAILY ANXIETY (Reported) Sevelamer Carbonate (Renvela) 800 MG TABLET 2 TAB PO TIDAC ERSD (Reported) Tamsulosin HCl 0.4 MG CAP.ER.24H 1 CAP PO DAILY PROSTATE (Reported) Trazodone HCl 150 MG TABLET 1 TAB PO QPM SLEEP (Reported) Resident Review Statement Resident Statement: examined this patient, discussed with regulatory affairs internship Other Findings: H:Mr. Dodd is a 67-year-old gentleman with a PMH of CAD s/p 6 stents 2 drug eluting stents most recently in Oct 2016, on dual antiplatelet therapy, COPD, T2DM, neuropathy, chronic hypoxic respiratory failure on 2L O2, MILES noncompliant with CPAP, HFpEF, presented to the emergency department complaining of shortness of breath, pruritis dyspnea on exertion while working with physical therapy on . Patient states that shortly after finishing his session he could not catch his breath. He was subsequently scheduled to undergo dialysis and although did have the intention to go however felt extremely anxious and subsequently did not go. Patient also reports a decreased appetite over the last few days prior to admission. Reports a significant weight loss over the last 12 months approximately 100 pounds. He was originally started on hydroxyzine for extensive pruritus. Patient's primary care physician is Lakeisha Benedict DO. Patient's airline flight attendant is Dr. Lee. Patient's branch sales and service representative is Dr. Palma. Undergoes hemodialysis on Tuesday, , Tuesday. reports that he is still making urine Does have a significant smoking history approximately 160 pack years. R: At the time of admission the patient denies any fever, chills, nausea, vomiting. Denies any headaches, denies any chest pain. Does endorse 2 episodes of emesis. Emesis were described as containing bile. No evidence of any blood. E: Temperature 97.6. Pulse 80. Respirations 24. Blood pressure 108/74. Pulse ox 100%. NC 2.0 General Appearance Alert, Oriented X3, Cooperative, Mild Distress. On supplemental Oxygen. Skin: extensive excoriation bilaterral upper extremity. HEENT PERRLA, Mucous Membr. moist/pink Neck Supple, No JVD, No thryomegaly Cardiovascular Normal S1, Normal S2, No Murmurs Lungs Clear to Auscultation Abdomen Soft, No Tenderness, No Hepatospenomegaly. Lester sign negative. Neurological Strength at 5/5 X4 Ext, Normal Tone, Sensation Intact, Cranial Nerves 3-12 NL Extremities bilateral 1+ pedal edema. L: WBC 6.1. H&H 14.6. Platelets 261. Sodium 132. Potassium 4.8. Creatinine 5.9. BUN 68. ProBNP greater than 35,000. I: As Above IMPRESSION: Increased pulmonary vascular congestion and interstitial edema compared to prior chest x-ray 09/25/2017. A/P Mr. Dodd is a 67-year-old gentleman with a PMH of CAD s/p 6 stents 2 drug eluting stents most recently in Oct 2016, on dual antiplatelet therapy, COPD, T2DM, neuropathy, chronic hypoxic respiratory failure on 2L O2, MILES noncompliant with CPAP, HFpEF, presented to the emergency department complaining of shortness of breath, pruritis dyspnea on exertion while working with physical therapy on . Symptoms are likely worsened due to recent diagnosis of flu, anxiety and missing his dialysis appointment. Admit the patient to telemetry. Serial EKG and troponins ruling out ACS. Tamiflu 30 mg daily. Maintain flu precautions. Strict inputs and outputs and daily weights. Follow formal cardiology recommendations Defer to cardiology regarding resuming Lasix. Echocardiogram Will obtain nephrology consultation in a.m. Continue dialysis as per schedule Fractionate [place]. GGT in am. Will repeat an LFT. If elevated, consider additional Imaging studing and possibly GI consultation. Diet Renal Dialysis Patient is a full code. Chuckie Garcia 11/23/17 0352: Attending MD Review Statement Attending Statement Attending MD Statement: examined this patient, discuss w/resident/PA/MAIL ORDER CLERK, agreed w/resident/PA/MAIL ORDER CLERK, reviewed EMR data (avail), reviewed images, amended to note Attending Assessment/Plan: CC: Shortness of breath PMH: CAD S/P stent, COPD on 2 L nasal cannula, DM, peripheral neuropathy, MILES noncompliant with CPAP, HFpEF , ESRD on hemodialysis Tuesday since Tuesday since last 9 months, HTN, HLD, PVD, ex-smoker Patient came to ER for worsening of shortness of breath since last 1 week gradually worsened but more so today. Patient was also complaining of lethargy and myalgias over that time. He also felt nauseous and had 1 episode of vomiting today. Since last 1 week he has been feeling extremely itchy, has multiple scratch walden on his body, itchiness only relieved after Atarax prescribed by PCP. Since his hemodialysis is started 9 months back he has been noticing decreased appetite, gradual progressive weight loss. Patient denies any cough, expectoration, chest pain, chest tightness, fever, chills, abdominal pain, presyncope, urinary symptoms. Patient had postnasal drip since last 5 months which has not changed much. Patient could not go to dialysis today. Vitals: T max 97.6, pulse 80, RR 24, blood pressure 108/74, saturating 100% on 2 L nasal cannula On exam: A O 3, cooperative, no acute distress, neck supple, JVD normal, no lymphadenopathy, mucosa moist, no focal neurological deficit, +1 dependent edema , no obvious skin rashes or inflammation CVS: S1-S2, RRR. RS: Clear to auscultate bilaterally. Abdomen: Soft, NT, ND, bowel sounds present. CXR:Increased pulmonary vascular congestion and interstitial edema compared to prior chest x-ray 09/25/2017. Assessment and plan 67-year-old male with multiple comorbidities presented in ER for progressive worsening of shortness of breath over last 1 week more so today associated with one episode of nausea and vomiting. He shortness of breath was also associated with weakness and myalgia since last 1 week but denies any fever, chills, cough, expectoration, chest pain. Patient does not have significant wheezing or crackles but has decreased a left air entry bilaterally, has +1 pedal edema which is much better for him. I could not appreciate JVD but chest x-ray mentions about increased pulmonary congestion and interstitial edema. Patient is not requiring more than his baseline oxygen. But patient is found to have influenza B+ given his multiple comorbidities he would benefit from in hospital treatment for influenza. Meanwhile he is also found to have elevated troponin, even though his troponins are chronically elevated this is worsened from his baseline. Shortness of breath could be a typical symptom of ACS or patient may have some demand ischemia secondary to influenza. He would benefit from hemodialysis. He is alkaline phosphatase is increased as compared to his previous hospitalization in September, bilirubin being the same. His transaminitis is improved as compared to September. It is unclear if his itching is related to cholestasis, we will repeat GGT, GI opinion if required. Patient was recently investigated for same with HIDA scan and MRI results unremarkable. + Influenza B + Mild interstitial edema + Suspected demand ischemia with elevated troponin + History of CAD S/P stent, COPD on 2 L nasal cannula, DM, peripheral neuropathy , MILES noncompliant with CPAP, HFpEF , ESRD on hemodialysis Tuesday since Tuesday since last 9 months, HTN, HLD, PVD, ex-smoker - Admit to telemetry - Continuous telemetry monitoring - Continue O2 by nasal cannula - IV Lasix 40 mg daily if okay with branch sales and service representative and airline flight attendant - Strict I's and O's - Daily weights - Serial troponin and EKGs - 2-D echo in a.m. - Cardiology consult in a.m. - DVT prophylaxis - Nephrology consultation for hemodialysis - Continue renally adjusted Tamiflu - Nebulization treatment with albuterol and ipratropium - Follow cardiology recommendation - Continue all his home medications except hold losartan and metoprolol for now, resume in a.m. if blood pressure stable and change Lasix to equivalent IV dose as mentioned above if okay with nephrology and cardiology - Obtain GGT, repeat LFT in am,
--- NOTE | 2017-11-22 20:28 | Cons- Cardiology ---
General Information and HPI Consulting Request Date of Consult: 11/22/17 Requested By: Ariane Pina MD History of Present Illness: The patient is a 67-year-old male with history of CAD, diabetes mellitus, end- stage renal disease on hemodialysis, COPD who is followed in the office by Dr. Lee. He is status post drug-eluting stent placement 2 in October 2016. LV ejection fraction is mildly reduced. He complained of increased shortness of breath starting after doing physical therapy this morning. He also notes diffuse body aches and chills. No fevers. He presents to the emergency department for evaluation of shortness of breath. He was due for dialysis today , however he missed the dialysis because of being at the hospital. No chest pain. No palpitations. No syncope. No nausea or vomiting. Allergies/Medications Allergies: Coded Allergies: morphine (Mild, LOOPY 01/18/17) hydromorphone (DEPRESSED RESPIRATIONS 01/18/17) Home Med List: Alprazolam (Xanax) 0.5 MG TABLET 1 TAB PO BID PRN ANXIETY Aspirin (Ecotrin*) 325 MG TABLET.DR 1 TAB PO QPM CAD (Reported) Calcium Carbonate 200 MG CALCIUM (500 MG) TAB.CHEW 2,500 MG PO WM supplement Clopidogrel Bisulfate (Plavix) 75 MG TABLET 75 MG PO DAILY ANTIPLATELET Cyclobenzaprine HCl 5 MG TABLET 1 TAB PO TID PAIN (Reported) Epoetin [place] (Procrit) 3,000 UNIT/ML VIAL 3,000 UNIT IV TuThSa PRN HEMODIALYSIS Epoetin [place] (Procrit) 2,000 UNIT/ML VIAL 2,000 UNIT IV TuThSa PRN HEMODIALYSIS Folic Acid 1 MG TABLET 1 TAB PO DAILY SUPPLEMENT (Reported) Hydroxyzine Hydrochloride (Atarax) 25 MG TAB 25 MG PO TID PRN ITCHING ONLY 10 PILLS Insulin Aspart (Novolog) 100 UNIT/ML CARTRIDGE 0 SC TIDAC DIABETES BEFORE MEALS... Blood Insulin Sugar Units <80 0 81-150 3 151-200 4 201-250 6 251-300 7 301-350 8 351-400 9 >400 10 Call Doctor Isosorbide Mononitrate (Isosorbide Mononitrate ER) 60 MG TAB.ER.24H 1 TAB PO DAILY CAD Levothyroxine Sodium (Tirosint) 150 MCG CAPSULE 300 MCG PO AT BEDTIME thyroid DO NOT REPLACE WITH GENERIC Losartan Potassium 50 MG TABLET 50 MG PO DAILY high BP Metoprolol Tartrate 25 MG TABLET 0.5 TAB PO BID high blood pressure Oxycodone HCl 5 MG TABLET 5 MG PO Q4-6 PRN PRN moderate to severe pain ONLY 5 PILLS Ramelteon (Rozerem) 8 MG TABLET 1 TAB PO AT BEDTIME SLEEP HELP Sennosides/Docusate Sodium (Senna S Tablet) 8.6 MG-50 MG TABLET 2 TAB PO QPM GI (Reported) Sertraline HCl (Zoloft) 100 MG TABLET 1 TAB PO DAILY ANXIETY (Reported) Sevelamer Carbonate (Renvela) 800 MG TABLET 2 TAB PO TIDAC ERSD (Reported) Tamsulosin HCl 0.4 MG CAP.ER.24H 1 CAP PO DAILY PROSTATE (Reported) Trazodone HCl 150 MG TABLET 1 TAB PO QPM SLEEP (Reported) Current Medications: Current Medications Sig/Julissa Start time Last Medication Dose Route Stop Time Status Admin Albuterol Sulfate 3 ML ONCE ONE 11/22 1430 DC 11/22 INH 11/22 1431 1427 Ipratropium [place] 2.5 ML ONCE ONE 11/22 1430 DC 11/22 INH 11/22 1431 1427 Lorazepam 0 .STK-MED ONE 11/22 1632 DC PO Lorazepam 1 MG ONCE ONE 11/22 1600 DC 11/22 PO 11/22 1601 1631 Lorazepam 1 MG ONCE ONE 11/22 1500 CAN IV 11/22 1501 Past History Travel History Traveled to [place] past 21 day No Medical History Neurological: proximal muscle pain & weakness UE/LE B/L EENT: NONE Cardiovascular: CAD, hypertension, hyperlipidemia, PVD, 6 CARDIAC STENTS Respiratory: NONE (on O2-2L), COPD Gastrointestinal: hx colon polyps Hepatic: cholelithiasis (vs. 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 FH: heart disease MOTHER, , Age 85; Cause: ASHD (arteriosclerotic heart disease). Relation not specified for: FH: diabetes mellitus FH: hypertension Psychosocial History Who Do You Live With? girlfriend Services at Home: Oxygen Primary Language: Slovak Living Will? no Power of Vessel Engineer/HCP? no Functional Ability ADLs Independent: dressing, eating, toileting, bathing. Ambulation: independent (and/or rolling walker), cane IADLs Independent: shopping, housework, finances, food prep, telephone, transportation , medication admin. Exam & Diagnostic Data Vital Signs and I&O Vital Signs Date Time Temp Pulse Resp B/P B/P Pulse O2 O2 Flow FiO2 Mean Ox Delivery Rate 11/22 2100 Nasal 2.0L Cannula 11/22 2041 97.6 77 20 100/64 100 Nasal 2.0L Cannula 11/22 1640 97.4 77 20 103/71 100 Nasal 2.0L Cannula 11/22 1426 Nasal Cannula 11/22 1413 100 Nasal 2.0L Cannula 11/22 1357 97.6 80 24 108/74 100 Nasal 2.0L Cannula Intake & Output 11/22 1600 11/22 0800 11/22 0000 11/21 1600 11/21 0800 11/21 0000 Intake Total 0 Output Total Balance 0 Intake, Oral 0 Patient 185 lb Weight Weight Reported by Patient Measurement Method Labs/Angus Results: Laboratory Tests 11/22 1625 Chemistry Sodium (137 - 145 mmol/L) 132 L Potassium (3.5 - 5.1 mmol/L) 4.8 Chloride (98 - 107 mmol/L) 90 L Carbon Dioxide (22 - 30 mmol/L) 23 Anion Gap (5 - 16) 19 H BUN (9 - 20 mg/dL) 68 H Creatinine (0.7 - 1.2 mg/dL) 5.9 *H Estimated GFR (>60 ml/min) 10 L BUN/Creatinine Ratio (7 - 25 %) 11.5 Glucose (65 - 99 mg/dL) 243 H Calcium (8.4 - 10.2 mg/dL) 6.7 L Total Bilirubin (0.2 - 1.3 mg/dL) 1.7 H AST (17 - 59 U/L) 27 ALT (21 - 72 U/L) 38 Alkaline Phosphatase (< 127 U/L) 417 H Troponin I (<0.11 ng/ml) 0.92 *H [id number] Pept (<125 pg/mL) > 86011 H Total Protein (6.3 - 8.2 g/dL) 6.7 Albumin (3.5 - 5.0 g/dL) 3.7 Globulin (1.9 - 4.2 gm/dL) 3.0 Albumin/Globulin Ratio (1.1 - 2.2 %) 1.2 Coagulation PT (9.4 - 12.5 SEC) 13.4 H INR (0.90 - 1.17) 1.28 H APTT (25 - 37 SEC) 37 Hematology CBC w Diff NO MAN DIFF REQ WBC (4.8 - 10.8 /CUMM) 6.1 RBC (4.70 - 6.10 /CUMM) 5.06 Hgb (14.0 - 18.0 G/DL) 14.6 Hct (42 - 52 %) 44.9 MCV (80.0 - 94.0 FL) 88.6 MCH (27.0 - 31.0 PG) 28.9 MCHC (33.0 - 37.0 G/DL) 32.6 L RDW (11.5 - 14.5 %) 17.8 H Plt Count (130 - 400 /CUMM) 261 MPV (7.4 - 10.4 FL) 8.6 Gran % (42.2 - 75.2 %) 83.3 H Lymphocytes % (20.5 - 51.1 %) 11.0 L Monocytes % (1.7 - 9.3 %) 5.2 Eosinophils % (0 - 5 %) 0.2 Basophils % (0.0 - 2.0 %) 0.3 Absolute Granulocytes (1.4 - 6.5 /CUMM) 5.1 Absolute Lymphocytes (1.2 - 3.4 /CUMM) 0.7 L Absolute Monocytes (0.10 - 0.60 /CUMM) 0.3 Absolute Eosinophils (0.0 - 0.7 /CUMM) 0 Absolute Basophils (0.0 - 0.2 /CUMM) 0 Diagnostic Data EKG Results EKG tracing is independently reviewed, and reveals normal sinus rhythm at 77, left atrial Charanjit, inferior infarct old, anterior infarct age undetermined CXR Results Increased pulmonary vascular congestion and interstitial edema compared to prior chest x-ray 09/25/2017. Other Results Echocardiogram 04/15/17: 1. Mild to moderate aortic sclerosis is present with minimal aortic insufficiency. 2. MItral leaflet thickening is present with mild to moderate anular calcification and mild mitral insufficiency with moderate left atrial enlargement. 3. A very small pericardial effusion is present 4. The left ventricular chamber size is upper normal. Akinesia of the apical segments is present with an ejection fraction of 45-50%. Mild eccentric hypertrophy is present. 5. The right heart chambers are upper normal in size with mild tricuspid insufficiency and an RV systolic pressure of 44 mmHg. 6. A catheter isnoted in the right atrial cavity. 7. There are no definite vegetations detected. If clinically indicated a LILIANE would better exclude valvular vegetative lesions. Assessment/Plan Assessment/Plan 67-year-old male with history of CAD, COPD, diabetes mellitus, and end-stage renal disease presenting with increased shortness of breath. Chest x-ray shows evidence of increased pulmonary vascular congestion and interstitial edema. Troponin is noted to be mildly elevated, however the patient has had elevated troponin chronically in the past. ProBNP is similar to baseline. Recommendations: * Monitor on telemetry * Check serial troponin to rule out myocardial infarction * Dialysis as soon as possible with increased fluid removal Consult Acknowledgment - Thank you for your consult request.
[2017-11-22 22:36] VITALS: BP 110/70
--- NOTE | 2017-11-23 03:53 | Admission Certification ---
Admission Certification Certification Statement - As attending physician, I certify that at the time of - admission, based on clinical presentation, severity of - symptoms, need for further diagnostic testing and - therapeutic interventions, and risk of adverse outcomes - without in-hospital treatment, in my clinical assessment, - this patient requires an acute hospital stay for a minimum - of two nights or longer. I have also considered psychsocial - factors such as support system, advanced age, financial - issues, cognitive issues, and failed out-patient treatments, - past re-admission history, safety of patient, and lack of - compliance as applicable. Specific rationale supporting this admission is: Influenza B, elevated troponin secondary to demand ischemia, mild interstitial edema
[2017-11-23 06:43] VITALS: BP 120/78
--- NOTE | 2017-11-23 08:19 | PN- Housestaff ---
See Addendum Subjective Follow-up For: Fluid overload Influenza B Elevated troponin in setting of ESRD ESRD on hemodialysis Anxiety Subjective: Patient was seen and examined today. Patient reports improvement in breathing. Reports feeling anxious and believes he was having a panic attack yesterday. Patient reports increased swelling as he missed his dialysis session the day prior. Patient denies chest pain, palpitations, abdominal pain, fever/chills, n/ v/c/d. Review of Systems Constitutional: Reports: see HPI. Objective Last 24 Hrs of Vital Signs/I&O Vital Signs Date Time Temp Pulse Resp B/P B/P Pulse O2 O2 Flow FiO2 Mean Ox Delivery Rate 11/23 1434 97.9 76 20 116/68 92 Nasal 2.0L Cannula 11/23 1337 Nasal 2.0L Cannula 11/23 0915 95 Nasal 2.0L Cannula 11/23 0643 97.5 81 20 120/78 98 Room Air 11/23 0000 Nasal 2.0L Cannula 11/22 2244 Nasal 2.0L Cannula 11/22 2236 97.0 83 20 110/70 93 Intake & Output 11/23 1600 11/23 0800 11/23 0000 Intake Total 600 246 Output Total 200 450 Balance 400 -204 Intake, IV 10 Intake, Oral 600 236 Output, Urine 200 450 Patient 177 lb 188 lb Weight Weight Chair scale Bed scale Measurement Method Physical Exam General Appearance: Alert, Oriented X3, Cooperative, No Acute Distress Skin Temp/Moisture Exam: Warm/Dry HEENT: Atraumatic, PERRLA, EOMI, Mucous Membr. moist/pink Cardiovascular: Regular Rate, Normal S1, Normal S2, No Murmurs Lungs: Clear to Auscultation, Normal Air Movement Abdomen: Normal Bowel Sounds, Soft, No Tenderness Neurological: Normal Speech Extremities: No Clubbing, No Cyanosis, Normal Pulses, No Tenderness/Swelling Current Medications: Current Medications Sig/Julissa Start time Last Medication Dose Route Stop Time Status Admin Albuterol Sulfate 3 ML Q6P PRN 11/23 0645 AC INH Alprazolam 0.5 MG ONCE ONE 11/23 1545 DC 11/23 PO 11/23 1546 1534 Calcitriol 1 MCG ONCE ONE 11/23 1615 DC IV 11/23 1616 Calcium Carbonate 1,250 MG TIDAC 11/23 1200 AC 11/23 PO 1230 Calcium Carbonate 500 MG ONCE ONE 11/23 0600 DC 11/23 PO 11/23 0601 0620 Diphenhydramine HCl 50 MG ONCE ONE 11/22 2215 DC 11/22 PO 11/22 2216 2257 Glycerin/Mineral Oil 1 ANGEL Q8 11/23 0602 AC 11/23 EXT 1300 Heparin Sodium 5,000 UNIT Q8 11/23 0841 AC 11/23 (Porcine) SC 1458 Hydroxyzine HCl 25 MG ONCE ONE 11/22 2215 CAN PO 11/22 2216 Ipratropium Universal 2.5 ML ONCE ONE 11/23 0645 DC INH 11/23 0646 Melatonin 5 MG AT BEDTIME 11/22 2355 AC 11/23 PO 0040 Mirtazapine 7.5 MG AT BEDTIME 11/23 2200 AC PO Multivitamins 1 TAB DAILY 11/23 1000 AC 11/23 PO 1000 Oseltamivir Phosphate 30 MG ONCE ONE 11/26 2130 UNVr PO 11/26 2131 Oseltamivir Phosphate 30 MG ONCE ONE 11/24 2200 UNVr PO 11/24 2201 Oseltamivir Phosphate 30 MG ONCE ONE 11/24 2130 UNVr PO 11/24 2131 Oseltamivir Phosphate 30 MG TU THURS SAT 11/24 1000 DC PO 11/28 0959 Oseltamivir Phosphate 30 MG 2000 11/22 2345 DC 11/23 PO 11/27 0959 0040 Trimethobenzamide HCl 200 MG 4 TIMES/DAY PRN 11/23 1245 AC IM Zinc Oxide 1 ANGEL BID 11/23 1000 AC 11/23 TOP 0907 Last 24 Hrs of Lab/Angus Results Last 24 Hrs of Labs/Mics: Laboratory Tests 11/23/17 1500: Anion Gap 20 H, Estimated GFR 8 L, BUN/Creatinine Ratio 11.5, Troponin I 0.85 *H, CBC w Diff NO MAN DIFF REQ, RBC 5.10, MCV 89.7, MCH 28.5, MCHC 31.7 L, RDW 17.6 H, MPV 9.2, Gran % 80.9 H, Lymphocytes % 12.0 L, Monocytes % 6.8, Eosinophils % 0, Basophils % 0.3, Absolute Granulocytes 6.0, Absolute Lymphocytes 0.9 L, Absolute Monocytes 0.5, Absolute Eosinophils 0, Absolute Basophils 0 11/22/17 2255: Troponin I Cancelled Assessment/Plan Assessment: 67-year-old gentleman with past medical history of COPD on 2 L of oxygen, coronary artery disease status post 6 stents last placed in November 2016, hypertension, hyperlipidemia, peripheral vascular disease [left leg stent], colon polyp, end-stage renal disease on hemodialysis [has left arm AV fistula], chronic low back pain, anxiety, depression, diabetes, thyroid cancer status post thyroidectomy came to [facility] with complaints of shortness of breath, myalgia , itching and found to be influenza type B positive. Patient today remained anxious. Denied any shortness of breath. Physical exam showed fluid overload. Patient was due for hemodialysis the day prior. Patient was seen by nephrology today and had hemodialysis session. Patient today remained anxious and described what appeared to be a panic attack the day before. Psych was consulted for further recommendations. Patient given ativan 0.5mg for anixety. Will give remeron today for sleep. Will await psych recommendations prior to restarting psych meds. Assessment and plan Admitted to telemetry. Patient's blood pressure today reamains normal and has dialysis today. Will continue to hold Lasix, metoprolol, losartan. Patient is to receive dialysis tomorrow Nephrology and cardiology on board. Appreciate recommendations Strict I/O and daily weights Tamiflu after each dialysis per nephrology recommendations. Tamiflu one dose 2/ 14, 2/15 and then 2/17 in the evening after each dialysis. Patient had elevated alk phos and GGT. Patient had elevated LFTs and CPK in the past and lipitor was stopped. Patient was previously worked up during his last admission. Hepatitis panel negative, Antinuclear antibody, anti-smooth muscle antibody, rheumatoid factor, ANCA titer liver/kidney microsomal type and antibody negative in the last admission. Patient sees Dr. Lee, Dr. Palma, Dr. Agrawal outpatient Patient has left arm AV fistula which appears clean with no swelling or erythema. Code-full code Diet - renal diet with addition of calcium carbonate Problem List: 1. Influenza B 2. ESRD (end stage renal disease) on dialysis 3. Volume overload Pain Ratin Pain Location: n/a Pain Goal: Pain 4 or less Pain Plan: n/a Tomorrow's Labs & Rationales: bep cbc
--- NOTE | 2017-11-23 09:44 | Cons- Nephrology ---
General Information and HPI Consulting Request Date of Consult: 11/23/17 Requested By: Ariane Pina MD Reason for Consult: ESRD & SOB Source of Information: patient, old records Exam Limitations: no limitations History of Present Illness: 67 yr old WM w mult med problems including DM, HTN, CAD, recent statin induced rhabdo, & ESRD on chronic HD admit yesterday w SOB. No cough, fever, or rigors but found Influenza B postive & started on Tamiflu. Last HD 4 days ago & c/o anorexia today but no vomiting since yesterday. Has large interdialytic wt gains w increasing leg edema over last couple of days. No CP but continued myalgias. Allergies/Medications Allergies: Coded Allergies: morphine (Mild, LOOPY 01/18/17) hydromorphone (DEPRESSED RESPIRATIONS 01/18/17) Home Med List: Alprazolam (Xanax) 0.5 MG TABLET 1 TAB PO BID PRN ANXIETY Aspirin (Ecotrin*) 325 MG TABLET.DR 1 TAB PO QPM CAD (Reported) Calcium Carbonate 200 MG CALCIUM (500 MG) TAB.CHEW 2,500 MG PO WM supplement Clopidogrel Bisulfate (Plavix) 75 MG TABLET 75 MG PO DAILY ANTIPLATELET Cyclobenzaprine HCl 5 MG TABLET 1 TAB PO TID PAIN (Reported) Epoetin [place] (Procrit) 3,000 UNIT/ML VIAL 3,000 UNIT IV TuThSa PRN HEMODIALYSIS Epoetin [place] (Procrit) 2,000 UNIT/ML VIAL 2,000 UNIT IV TuThSa PRN HEMODIALYSIS Folic Acid 1 MG TABLET 1 TAB PO DAILY SUPPLEMENT (Reported) Hydroxyzine Hydrochloride (Atarax) 25 MG TAB 25 MG PO TID PRN ITCHING ONLY 10 PILLS Insulin Aspart (Novolog) 100 UNIT/ML CARTRIDGE 0 SC TIDAC DIABETES BEFORE MEALS... Blood Insulin Sugar Units <80 0 81-150 3 151-200 4 201-250 6 251-300 7 301-350 8 351-400 9 >400 10 Call Doctor Isosorbide Mononitrate (Isosorbide Mononitrate ER) 60 MG TAB.ER.24H 1 TAB PO DAILY CAD Levothyroxine Sodium (Tirosint) 150 MCG CAPSULE 300 MCG PO AT BEDTIME thyroid DO NOT REPLACE WITH GENERIC Losartan Potassium 50 MG TABLET 50 MG PO DAILY high BP Metoprolol Tartrate 25 MG TABLET 0.5 TAB PO BID high blood pressure Oxycodone HCl 5 MG TABLET 5 MG PO Q4-6 PRN PRN moderate to severe pain ONLY 5 PILLS Ramelteon (Rozerem) 8 MG TABLET 1 TAB PO AT BEDTIME SLEEP HELP Sennosides/Docusate Sodium (Senna S Tablet) 8.6 MG-50 MG TABLET 2 TAB PO QPM GI (Reported) Sertraline HCl (Zoloft) 100 MG TABLET 1 TAB PO DAILY ANXIETY (Reported) Sevelamer Carbonate (Renvela) 800 MG TABLET 2 TAB PO TIDAC ERSD (Reported) Tamsulosin HCl 0.4 MG CAP.ER.24H 1 CAP PO DAILY PROSTATE (Reported) Trazodone HCl 150 MG TABLET 1 TAB PO QPM SLEEP (Reported) Current Medications: Current Medications Sig/Julissa Start time Last Medication Dose Route Stop Time Status Admin Albuterol Sulfate 3 ML Q6P PRN 11/23 0645 AC INH Albuterol Sulfate 3 ML ONCE ONE 11/22 1430 DC 11/22 INH 11/22 1431 1427 Calcium Carbonate 500 MG ONCE ONE 11/23 0600 DC 11/23 PO 11/23 0601 0620 Diphenhydramine HCl 50 MG ONCE ONE 11/22 2215 DC 11/22 PO 11/22 2216 2257 Glycerin/Mineral Oil 1 ANGEL Q8 11/23 0602 AC 11/23 EXT 0657 Heparin Sodium 5,000 UNIT Q8 11/23 0841 AC (Porcine) SC Hydroxyzine HCl 25 MG ONCE ONE 11/22 2215 CAN PO 11/22 2216 Ipratropium [place] 2.5 ML ONCE ONE 11/23 0645 DC INH 11/23 0646 Ipratropium [place] 2.5 ML ONCE ONE 11/22 1430 DC 11/22 INH 11/22 1431 1427 Lorazepam 0 .STK-MED ONE 11/22 1632 DC PO Lorazepam 1 MG ONCE ONE 11/22 1600 DC 11/22 PO 11/22 1601 1631 Lorazepam 1 MG ONCE ONE 11/22 1500 CAN IV 11/22 1501 Melatonin 5 MG AT BEDTIME 11/22 2355 AC 11/23 PO 0040 Oseltamivir Phosphate 30 MG 2000 11/22 2345 AC 11/23 PO 11/27 0959 0040 Zinc Oxide 1 ANGEL BID 11/23 1000 AC 11/23 TOP 0907 Review of Systems Review of Systems Constitutional: Reports: malaise, weakness. EENTM: Reports: no symptoms. Cardiovascular: Reports: edema. Respiratory: Reports: see HPI, cough. GI: Reports: vomiting (yesterday). Genitourinary: Reports: no symptoms. Musculoskeletal: Reports: muscle pain. Skin: Reports: no symptoms. Neurological/Psychological: Reports: no symptoms. Hematologic/Endocrine: Reports: no symptoms. Immunologic/Allergic: Reports: no symptoms. All Other Systems: Reviewed and Negative Past History Travel History Traveled to [place] past 21 day No Medical History Blood Transfusion Hx: No Neurological: proximal muscle pain & weakness UE/LE B/L EENT: NONE Cardiovascular: CAD, hypertension, hyperlipidemia, PVD, 6 CARDIAC STENTS Respiratory: NONE (on O2-2L), COPD Gastrointestinal: hx colon polyps Hepatic: cholelithiasis (vs. 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 FH: heart disease MOTHER, , Age 85; Cause: ASHD (arteriosclerotic heart disease). Relation not specified for: FH: diabetes mellitus FH: hypertension Psychosocial History Where Do You Live? Home Who Do You Live With? girlfriend Services at Home: Home Health Aide, Nursing, Oxygen, Physical Therapy Primary Language: Greek Smoking Status: Former Smoker ETOH Use: occasional use Illicit Drug Use: denies illicit drug use Living Will? 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 no Functional Ability ADLs Independent: dressing, eating, toileting, bathing. Ambulation: independent (and/or rolling walker), cane IADLs Independent: shopping, housework, finances, food prep, telephone, transportation , medication admin. ECHO Results (as available) EF% 45 Exam & Diagnostic Data Vital Signs and I&O Vital Signs Date Time Temp Pulse Resp B/P B/P Pulse O2 O2 Flow FiO2 Mean Ox Delivery Rate 11/23 0915 95 Nasal 2.0L Cannula 11/23 0643 97.5 81 20 120/78 98 Room Air 11/23 0000 Nasal 2.0L Cannula 11/22 2244 Nasal 2.0L Cannula 11/22 2236 97.0 83 20 110/70 93 11/22 2100 Nasal 2.0L Cannula 11/22 2041 97.6 77 20 100/64 100 Nasal 2.0L Cannula 11/22 1640 97.4 77 20 103/71 100 Nasal 2.0L Cannula 11/22 1426 Nasal Cannula 11/22 1413 100 Nasal 2.0L Cannula 11/22 1357 97.6 80 24 108/74 100 Nasal 2.0L Cannula Intake & Output 11/23 1600 11/23 0400 11/22 1600 11/22 0400 11/21 1600 11/21 0400 Intake Total 246 0 Output Total 450 Balance -204 0 Intake, IV 10 Intake, Oral 236 0 Output, Urine 450 Patient 177 lb 188 lb 185 lb Weight Weight Chair scale Bed scale Reported by Patient Measurement Method Physical Exam General Appearance: well developed/nourished, anxious Head: atraumatic, normal appearance Eyes: Bilateral: normal appearance. Ears, Nose, Throat: normal ENT inspection Neck: normal inspection, supple Respiratory: no respiratory distress, quiet respiration, lungs clear Cardiovascular: regular rate/rhythm, friction rub (none) Gastrointestinal: soft, non-tender, no organomegaly Back: normal inspection Extremities: swelling, + bruit KAREY AVF Neurologic/Psych: no motor/sensory deficits, awake, alert, oriented x 3, rubber calender helper II- XII nml as tested Skin: intact, normal color, warm/dry Lymphatic: no anterior cervical юлия, no axillary adenopathy Results Pertinent Lab Results: Laboratory Tests 11/22 11/22 1625 1422 Chemistry Sodium (137 - 145 mmol/L) 132 L Potassium (3.5 - 5.1 mmol/L) 4.8 Chloride (98 - 107 mmol/L) 90 L Carbon Dioxide (22 - 30 mmol/L) 23 Anion Gap (5 - 16) 19 H BUN (9 - 20 mg/dL) 68 H Creatinine (0.7 - 1.2 mg/dL) 5.9 *H Estimated GFR (>60 ml/min) 10 L BUN/Creatinine Ratio (7 - 25 %) 11.5 Glucose (65 - 99 mg/dL) 243 H Calcium (8.4 - 10.2 mg/dL) 6.7 L Total Bilirubin (0.2 - 1.3 mg/dL) 1.7 H Direct Bilirubin (< 0.4 mg/dL) 1.7 H GGT (15 - 73 U/L) 828 H AST (17 - 59 U/L) 27 ALT (21 - 72 U/L) 38 Alkaline Phosphatase (< 127 U/L) 417 H Troponin I (<0.11 ng/ml) 0.92 *H [id number] Pept (<125 pg/mL) > 47328 H Total Protein (6.3 - 8.2 g/dL) 6.7 Albumin (3.5 - 5.0 g/dL) 3.7 Globulin (1.9 - 4.2 gm/dL) 3.0 Albumin/Globulin Ratio (1.1 - 2.2 %) 1.2 Coagulation PT (9.4 - 12.5 SEC) 13.4 H INR (0.90 - 1.17) 1.28 H APTT (25 - 37 SEC) 37 Hematology CBC w Diff NO MAN DIFF REQ WBC (4.8 - 10.8 /CUMM) 6.1 RBC (4.70 - 6.10 /CUMM) 5.06 Hgb (14.0 - 18.0 G/DL) 14.6 Hct (42 - 52 %) 44.9 MCV (80.0 - 94.0 FL) 88.6 MCH (27.0 - 31.0 PG) 28.9 MCHC (33.0 - 37.0 G/DL) 32.6 L RDW (11.5 - 14.5 %) 17.8 H Plt Count (130 - 400 /CUMM) 261 MPV (7.4 - 10.4 FL) 8.6 Gran % (42.2 - 75.2 %) 83.3 H Lymphocytes % (20.5 - 51.1 %) 11.0 L Monocytes % (1.7 - 9.3 %) 5.2 Eosinophils % (0 - 5 %) 0.2 Basophils % (0.0 - 2.0 %) 0.3 Absolute Granulocytes (1.4 - 6.5 /CUMM) 5.1 Absolute Lymphocytes (1.2 - 3.4 /CUMM) 0.7 L Absolute Monocytes (0.10 - 0.60 /CUMM) 0.3 Absolute Eosinophils (0.0 - 0.7 /CUMM) 0 Absolute Basophils (0.0 - 0.2 /CUMM) 0 Serology Virus Culture Pending Imaging/Other Studies: EXAMINATION: XR PORTABLE CHEST CLINICAL INFORMATION: Shortness of breath. COMPARISON: Chest x-ray 09/25/2017 TECHNIQUE: Portable frontal view of the chest was obtained. 2:45 PM FINDINGS: Increased moderate prominence of the central hilar vasculature and increased moderate interstitial lung markings consistent with pulmonary vascular congestion with interstitial edema. No large pleural effusion. No focal consolidation. There is asymmetric elevation of the right diaphragm compared to left. IMPRESSION: Increased pulmonary vascular congestion and interstitial edema compared to prior chest x-ray 09/25/2017. Assessment/Plan Assessment/Recommendations Assessment: 1. ESRD: due to DM & HTN 2. Volume overload: need UF w HD today 3. Influenza: Tamiflu dose needs adjustment for ESRD 4. Hypocalcemia: needs phos, Mg, CK checked; HD via hi Ca bath & add IV calcitriol w HD Recommendations: 1. HD & UF today --> target 4 liters 2. Repeat HD tomorrow 3. Tamiflu dose 30 mg post every other HD 4. Check CK, Mg, phos 5. CaCO3 1250 mg w meals
[2017-11-23 14:34] VITALS: BP 116/68
[2017-11-23 16:19] LABS: ABSOLUTE BASOPHIL COUNT 0 /CUMM (0.0-0.2); ABSOLUTE EOSINOPHIL COUNT 0 /CUMM (0.0-0.7); ABSOLUTE LYMPH COUNT 0.9 /CUMM (1.2-3.4); ABSOLUTE MONOCYTE COUNT 0.5 /CUMM (0.10-0.60); BASOPHIL % 0.3 % (0.0-2.0); EOSINOPHIL % 0 % (0-5); GRANULOCYTE % 80.9 % (42.2-75.2); HEMATOCRIT 45.8 % (42-52); MEAN CORPUSCULAR HGB 28.5 PG (27.0-31.0); MEAN CORPUSCULAR HGB CONC 31.7 G/DL (33.0-37.0); MEAN CORPUSCULAR VOLUME 89.7 FL (80.0-94.0); MEAN PLATELET VOLUME 9.2 FL (7.4-10.4); PLATELET COUNT 233 /CUMM (130-400); RBC DISTRIBUTION WIDTH 17.6 % (11.5-14.5); WHITE BLOOD CELL COUNT 7.4 /CUMM (4.8-10.8)
[2017-11-23 22:15] VITALS: BP 110/60
[2017-11-24 07:12] VITALS: BP 130/82
--- NOTE | 2017-11-24 09:23 | PN- Housestaff ---
See Addendum Subjective Follow-up For: Fluid overload Influenza B Elevated troponin in setting of ESRD ESRD on hemodialysis Anxiety Subjective: Patient was seen and examined today. Patient states that he had 1 episode of nonbloody vomiting after breakfast morning. Patient noted that he had some nausea as well. Patient denies any abdominal discomfort, fever/chills. Patient states he continues to make some urine. Denies any dysuria or hematuria. Denies any chest pain, shortness of breath, palpitations. Patient notes some skin itching. Patient is due for hemodialysis today. Review of Systems Constitutional: Reports: see HPI. Cardiovascular: Reports: no symptoms. Respiratory: Reports: no symptoms. Gastrointestinal: Reports: see HPI. Genitourinary: Reports: no symptoms. Musculoskeletal: Reports: no symptoms. Skin: Reports: see HPI, dryness. Objective Last 24 Hrs of Vital Signs/I&O Vital Signs Date Time Temp Pulse Resp B/P B/P Pulse O2 O2 Flow FiO2 Mean Ox Delivery Rate 11/24 0800 Nasal 2.0L Cannula 11/24 0712 97.7 89 18 130/82 94 Nasal Cannula 11/24 0000 Nasal 2.0L Cannula 11/23 2215 97.6 88 18 110/60 94 Intake & Output 11/24 1600 11/24 0800 11/24 0000 Intake Total 600 480 720 Output Total 210 0 4000 Balance 390 480 -3280 Intake, Oral 600 480 720 Number 0 Bowel Movements Output, 4000 Dialysate Output, 60 Emesis Output, Urine 150 0 0 Patient 175 lb 175 lb 173 lb Weight Weight Bed scale Bed scale Measurement Method Physical Exam General Appearance: Alert, Oriented X3, Cooperative, No Acute Distress Other Physical Findings: Skin Temp/Moisture Exam: Warm/Dry HEENT: Atraumatic, PERRLA, EOMI, Mucous Membr. moist/pink Cardiovascular: Regular Rate, Normal S1, Normal S2, No Murmurs Lungs: Clear to Auscultation, Normal Air Movement Abdomen: Normal Bowel Sounds, Soft, No Tenderness Neurological: Normal Speech Extremities: No Clubbing, No Cyanosis, Normal Pulses, No Tenderness/Swelling, less edema today Current Medications: Current Medications Sig/Julissa Start time Last Medication Dose Route Stop Time Status Admin Albuterol Sulfate 3 ML Q6P PRN 11/23 0645 AC INH Alprazolam 0.5 MG BID PRN 11/23 2300 AC 11/24 PO 11/30 2259 1146 Calcitriol 1 MCG TUES THURS SAT PRN 11/24 1000 AC IV Calcium Carbonate 1,250 MG TIDAC 11/23 1200 AC 11/24 PO 0847 Diphenhydramine HCl 25 MG ONCE ONE 11/24 1700 DC 11/24 PO 11/24 1701 1713 Glycerin/Mineral Oil 1 ANGEL TID PRN 11/24 1145 AC TOP Glycerin/Mineral Oil 1 ANGEL Q8 11/23 0602 AC 11/24 EXT 0647 Heparin Sodium 5,000 UNIT Q8 11/23 0841 AC 11/24 (Porcine) SC 0647 Melatonin 5 MG AT BEDTIME 11/22 2355 AC 11/23 PO 2304 Mirtazapine 7.5 MG AT BEDTIME 11/23 2200 AC 11/23 PO 2304 Multivitamins 1 TAB DAILY 11/23 1000 AC 11/24 PO 1146 Oseltamivir Phosphate 30 MG ONCE ONE 11/26 2130 CAN PO 11/26 2131 Oseltamivir Phosphate 30 MG ONCE ONE 11/24 2345 DC 11/23 PO 11/24 2346 2348 Oseltamivir Phosphate 30 MG ONCE ONE 11/24 2200 AC PO 11/24 2201 Oseltamivir Phosphate 30 MG ONCE ONE 11/24 2130 DC PO 11/24 2131 Oseltamivir Phosphate 30 MG TUES THURS SAT 11/24 1000 DC PO 11/28 0959 Oxycodone/ 1 TAB ONCE ONE 11/23 2300 DC 11/23 Acetaminophen PO 11/23 2301 2304 Patient Medication 1 ED ONE ONE 11/24 1430 IN Teaching ED 11/24 1431 Patient Medication 1 ED ONE ONE 11/24 1415 IN Teaching ED 11/24 1416 Prochlorperazine 5 MG Q6 11/24 1615 AC 11/24 PO 1711 Trimethobenzamide HCl 200 MG 4 TIMES/DAY PRN 11/23 1245 AC IM Zinc Oxide 1 ANGEL BID 11/23 1000 11/23 TOP 2305 Last 24 Hrs of Lab/Angus Results Last 24 Hrs of Labs/Mics: Laboratory Tests 11/24/17 1420: CBC w Diff NO MAN DIFF REQ, RBC 4.91, MCV 89.3, MCH 28.6, MCHC 32.0 L, RDW 17.3 H, MPV 9.4, Gran % 79.1 H, Lymphocytes % 13.9 L, Monocytes % 6.6, Eosinophils % 0.1, Basophils % 0.3, Absolute Granulocytes 4.4, Absolute Lymphocytes 0.8 L, Absolute Monocytes 0.4, Absolute Eosinophils 0, Absolute Basophils 0 11/24/17 1330: Anion Gap 17 H, Estimated GFR 17 L, BUN/Creatinine Ratio 8.9, Calcium 8.1 L, Phosphorus 5.2 H, Magnesium 1.9, Creatine Kinase 189 H, Albumin 3.2 L, Hep Bs Antigen NONREACTIVE, Hep Bs Antibody NONREACTIVE 11/24/17 1329: Sodium Cancelled, Potassium Cancelled, Chloride Cancelled, Carbon Dioxide Cancelled, Anion Gap Cancelled, BUN Cancelled, Creatinine Cancelled, BUN/ Creatinine Ratio Cancelled, Calcium Cancelled, Phosphorus Cancelled, Magnesium Cancelled, Albumin Cancelled Assessment/Plan Assessment: 67-year-old gentleman with past medical history of COPD on 2 L of oxygen, coronary artery disease status post 6 stents last placed in November 2016, hypertension, hyperlipidemia, peripheral vascular disease [left leg stent], colon polyp, end-stage renal disease on hemodialysis [has left arm AV fistula], chronic low back pain, anxiety, depression, diabetes, thyroid cancer status post thyroidectomy came to [facility] with complaints of shortness of breath, myalgia , itching and found to be influenza type B positive. Patient today had nausea and vomiting. Tigan as prescribed as needed however patient refused. Patient went for hemodialysis today. Patient's breathing has improved since his hemodialysis yesterday. Patient continues to complain of anxiety. Psych consulted and have made no recommendations for any further changes in his medications at this moment. If patient nausea and vomiting resolve he will likely be discharged tomorrow. Assessment and plan Admitted to telemetry. Patient's blood pressure today reamains normal and has dialysis today. Will continue to hold Lasix, metoprolol, losartan. Patient is to receive dialysis today Nephrology and cardiology on board. Appreciate recommendations Strict I/O and daily weights Tamiflu after each dialysis per nephrology recommendations. Tamiflu one dose , 11/24 and then / in the evening after each dialysis. Patient had elevated alk phos and GGT. Patient had elevated LFTs and CPK in the past and lipitor was stopped. Patient was previously worked up during his last admission. Hepatitis panel negative, Antinuclear antibody, anti-smooth muscle antibody, rheumatoid factor, ANCA titer liver/kidney microsomal type and antibody negative in the last admission. Patient sees Dr. Lee, Dr. Palma, Dr. Agrawal outpatient Patient has left arm AV fistula which appears clean with no swelling or erythema. Code-full code Diet - renal diet with addition of calcium carbonate Problem List: 1. Influenza B 2. ESRD (end stage renal disease) on dialysis 3. Volume overload 4. Anxiety disorder Pain Ratin Pain Location: NA Pain Goal: Remain pain free Pain Plan: NA Tomorrow's Labs & Rationales: None
--- NOTE | 2017-11-24 09:49 | PN- Nephrology ---
Assessment/Plan Assessment: 1. ESRD: due to DM & HTN 2. Volume overload: needs more UF 3. Influenza: improving --> will need another dose Tamiflu today post HD 4. HypoCa/hyperphos: discussed neeed for binder; continue on 3 meq/L Ca dialysate & calcitriol w HD 5. Hyperkalemia: should have corrected w yesterday's HD --> recheck today Suggestion: 1. HD/UF again today 2. CaCO3 w meals 3. IV calcitriol w HD 4. Tamiflu 30 mg po post HD today Subjective Subjective: Feeling better w improved SOB & cough Myalgias better but not gone HD yesterday uneventful Admits noncompliance phos binders Objective Vital Signs and I&Os Vital Signs Date Time Temp Pulse Resp B/P B/P Pulse O2 O2 Flow FiO2 Mean Ox Delivery Rate 11/24 0712 97.7 89 18 130/82 94 Nasal Cannula 11/24 0000 Nasal 2.0L Cannula 11/23 2215 97.6 88 18 110/60 94 11/23 1434 97.9 76 20 116/68 92 Nasal 2.0L Cannula 11/23 1337 Nasal 2.0L Cannula Intake & Output 11/24 1600 11/24 0400 11/23 1600 11/23 0400 11/22 1600 11/22 0400 Intake Total 480 720 846 0 Output Total 0 4000 650 Balance 480 -3280 196 0 Intake, IV 10 Intake, Oral 480 720 836 0 Output, 4000 Dialysate Output, Urine 0 0 650 Patient 175 lb 173 lb 177 lb 188 lb 185 lb Weight Weight Bed scale Bed scale Chair scale Bed scale Reported by Patient Measurement Method Physical Exam General Appearance: no apparent distress, alert, awake Head: atraumatic, normal appearance Neck: normal inspection Respiratory: no respiratory distress, quiet respiration, rhonchi Cardiovascular: regular rate/rhythm Abdomen: soft, non-tender, no organomegaly Extremities: swelling, + bruit KAREY AVF Neurologic/Psychiatric: no motor/sensory deficits, awake, alert, oriented x 3, no [place] Current Medications: Current Medications Sig/Julissa Start time Last Medication Dose Route Stop Time Status Admin Albuterol Sulfate 3 ML Q6P PRN 11/23 0645 AC INH Alprazolam 0.5 MG BID PRN 11/230 AC 11/23 PO 11/30 2258 2304 Alprazolam 0.5 MG ONCE ONE 11/23 1545 DC 11/23 PO 11/23 1546 1534 Calcitriol 1 MCG ONCE ONE 11/23 1615 DC IV 11/23 1616 Calcium Carbonate 1,250 MG TIDAC 11/23 1200 AC 11/24 PO 0847 Glycerin/Mineral Oil 1 ANGEL Q8 11/23 0602 AC 11/24 EXT 0647 Heparin Sodium 5,000 UNIT Q8 11/23 0841 AC 11/24 (Porcine) SC 0647 Melatonin 5 MG AT BEDTIME 11/22 2355 AC 11/23 PO 2304 Mirtazapine 7.5 MG AT BEDTIME 11/23 2200 AC 11/23 PO 2304 Multivitamins 1 TAB DAILY 11/23 1000 AC 11/23 PO 1000 Oseltamivir Phosphate 30 MG ONCE ONE 11/26 2130 CAN PO 11/26 2131 Oseltamivir Phosphate 30 MG ONCE ONE 11/24 2345 DC 11/23 PO 11/24 2346 2348 Oseltamivir Phosphate 30 MG ONCE ONE 11/24 2200 AC PO 11/24 2201 Oseltamivir Phosphate 30 MG ONCE ONE 11/24 2130 DC PO 11/24 2131 Oseltamivir Phosphate 30 MG TUES THURS SAT 11/24 1000 DC PO 11/28 0959 Oseltamivir Phosphate 30 MG 2000 11/22 2345 DC 11/23 PO 11/27 0959 0040 Oxycodone/ 1 TAB ONCE ONE 11/23 2300 DC 11/23 Acetaminophen PO 11/23 2301 2304 Trimethobenzamide HCl 200 MG 4 TIMES/DAY PRN 11/23 1245 AC IM Zinc Oxide 1 ANGEL BID 11/23 1000 AC 11/23 TOP 2305 Results Pertinent Lab Results: Laboratory Tests 11/23 11/23 11/23 1500 1414 0600 Chemistry Sodium (137 - 145 mmol/L) 128 L Potassium (3.5 - 5.1 mmol/L) 5.9 H Chloride (98 - 107 mmol/L) 91 L Carbon Dioxide (22 - 30 mmol/L) 17 L Anion Gap (5 - 16) 20 H BUN (9 - 20 mg/dL) 76 H Creatinine (0.7 - 1.2 mg/dL) 6.6 *H Estimated GFR (>60 ml/min) 8 L BUN/Creatinine Ratio (7 - 25 %) 11.5 Total Bilirubin Cancelled Direct Bilirubin Cancelled AST Cancelled ALT Cancelled Alkaline Phosphatase Cancelled Troponin I (<0.11 ng/ml) 0.85 *H Total Protein Cancelled Albumin Cancelled Hematology CBC w Diff NO MAN DIFF REQ Cancelled WBC (4.8 - 10.8 /CUMM) 7.4 Cancelled RBC (4.70 - 6.10 /CUMM) 5.10 Cancelled Hgb (14.0 - 18.0 G/DL) 14.5 Cancelled Hct (42 - 52 %) 45.8 Cancelled MCV (80.0 - 94.0 FL) 89.7 Cancelled MCH (27.0 - 31.0 PG) 28.5 Cancelled MCHC (33.0 - 37.0 G/DL) 31.7 L Cancelled RDW (11.5 - 14.5 %) 17.6 H Cancelled Plt Count (130 - 400 /CUMM) 233 Cancelled MPV (7.4 - 10.4 FL) 9.2 Cancelled Gran % (42.2 - 75.2 %) 80.9 H Lymphocytes % (20.5 - 51.1 %) 12.0 L Monocytes % (1.7 - 9.3 %) 6.8 Eosinophils % (0 - 5 %) 0 Basophils % (0.0 - 2.0 %) 0.3 Absolute Granulocytes (1.4 - 6.5 /CUMM) 6.0 Absolute Lymphocytes (1.2 - 3.4 /CUMM) 0.9 L Absolute Monocytes (0.10 - 0.60 /CUMM) 0.5 Absolute Eosinophils (0.0 - 0.7 /CUMM) 0 Absolute Basophils (0.0 - 0.2 /CUMM) 0 11/22 11/22 11/22 7525 1625 1422 Chemistry Sodium (137 - 145 mmol/L) 132 L Potassium (3.5 - 5.1 mmol/L) 4.8 Chloride (98 - 107 mmol/L) 90 L Carbon Dioxide (22 - 30 mmol/L) 23 Anion Gap (5 - 16) 19 H BUN (9 - 20 mg/dL) 68 H Creatinine (0.7 - 1.2 mg/dL) 5.9 *H Estimated GFR (>60 ml/min) 10 L BUN/Creatinine Ratio (7 - 25 %) 11.5 Glucose (65 - 99 mg/dL) 243 H Calcium (8.4 - 10.2 mg/dL) 6.7 L Phosphorus (2.5 - 4.5 mg/dL) 8.1 H Magnesium (1.6 - 2.3 mg/dL) 1.9 Total Bilirubin (0.2 - 1.3 mg/dL) 1.7 H Direct Bilirubin (< 0.4 mg/dL) 1.7 H GGT (15 - 73 U/L) 828 H AST (17 - 59 U/L) 27 ALT (21 - 72 U/L) 38 Alkaline Phosphatase (< 127 U/L) 417 H Creatine Kinase (55 - 170 U/L) 254 H Troponin I (<0.11 ng/ml) Cancelled 0.92 *H [id number] Pept (<125 pg/mL) > 96583 H Total Protein (6.3 - 8.2 g/dL) 6.7 Albumin (3.5 - 5.0 g/dL) 3.7 Globulin (1.9 - 4.2 gm/dL) 3.0 Albumin/Globulin Ratio (1.1 - 2.2 %) 1.2 Coagulation PT (9.4 - 12.5 SEC) 13.4 H INR (0.90 - 1.17) 1.28 H APTT (25 - 37 SEC) 37 Hematology CBC w Diff NO MAN DIFF REQ WBC (4.8 - 10.8 /CUMM) 6.1 RBC (4.70 - 6.10 /CUMM) 5.06 Hgb (14.0 - 18.0 G/DL) 14.6 Hct (42 - 52 %) 44.9 MCV (80.0 - 94.0 FL) 88.6 MCH (27.0 - 31.0 PG) 28.9 MCHC (33.0 - 37.0 G/DL) 32.6 L RDW (11.5 - 14.5 %) 17.8 H Plt Count (130 - 400 /CUMM) 261 MPV (7.4 - 10.4 FL) 8.6 Gran % (42.2 - 75.2 %) 83.3 H Lymphocytes % (20.5 - 51.1 %) 11.0 L Monocytes % (1.7 - 9.3 %) 5.2 Eosinophils % (0 - 5 %) 0.2 Basophils % (0.0 - 2.0 %) 0.3 Absolute Granulocytes (1.4 - 6.5 /CUMM) 5.1 Absolute Lymphocytes (1.2 - 3.4 /CUMM) 0.7 L Absolute Monocytes (0.10 - 0.60 /CUMM) 0.3 Absolute Eosinophils (0.0 - 0.7 /CUMM) 0 Absolute Basophils (0.0 - 0.2 /CUMM) 0 Serology Virus Culture Pending Imaging/Other Studies: EXAMINATION: XR PORTABLE CHEST CLINICAL INFORMATION: Shortness of breath. COMPARISON: Chest x-ray 09/25/2017 TECHNIQUE: Portable frontal view of the chest was obtained. 2:45 PM FINDINGS: Increased moderate prominence of the central hilar vasculature and increased moderate interstitial lung markings consistent with pulmonary vascular congestion with interstitial edema. No large pleural effusion. No focal consolidation. There is asymmetric elevation of the right diaphragm compared to left. IMPRESSION: Increased pulmonary vascular congestion and interstitial edema compared to prior chest x-ray 09/25/2017.
--- NOTE | 2017-11-24 13:42 | Cons- Psychiatry ---
Les Rojas 11/24/17 1258: Psychiatric Consult Date of Consult: 11/24/17 Reason for Consult: Anxiety History of Present Illness: The patient is a 67 yo male with multiple comorbidities including COPD on 2 L of oxygen at home, CAD s/p 6 stents, CHF, and ESRD on dialysis presenting with shortness of breath, myalgias, and itching. Patient was admitted on telemetry with history of CHF and CAD and with positive result for influenza type B. Psych: Patient is feeling anxious. Patient says that "everything started to go downhill" after 3 heart attacks last year which was treated with stents. He has been feeling helpless since then, but still has interest in doing what likes to do. He feels that he has a decrease in his energy level and does not get enough sleep. Patient denies suicidal ideations and states that he has no past history of suicidal ideations or attempts. Patient also denies any visual or auditory hallucinations or delusions. Patient denies any current substance abuse. Allergies: Coded Allergies: morphine (Mild, LOOPY 01/18/17) hydromorphone (DEPRESSED RESPIRATIONS 01/18/17) Current Medications: Current Medications Sig/Julissa Start time Last Medication Dose Stop Time Status Admin Albuterol Sulfate 3 ML Q6P PRN 11/23 0645 AC (Proventil) Alprazolam 0.5 MG BID PRN 11/23 2300 AC 11/24 (Xanax) 11/30 225 1146 Calcitriol 1 MCG TUES TH SAT PRN 11/24 1000 AC (Calcijex Inj. (1MCG/ Ml)) Calcium Carbonate 1,250 MG TIDAC 11/23 1200 AC 11/24 (Calcium Carbonate) 0847 Glycerin/Mineral Oil 1 ANGEL TID PRN 11/24 1145 AC (Lubriderm) Glycerin/Mineral Oil 1 ANGEL Q8 11/23 0602 AC 11/24 (Lubriderm) 0647 Heparin Sodium 5,000 UNIT Q8 11/23 0841 AC 11/24 (Porcine) 0647 Melatonin 5 MG AT BEDTIME 11/22 2355 AC 11/23 (Melatonin) 2304 Mirtazapine 7.5 MG AT BEDTIME 11/23 2200 AC 11/23 (Remeron) 2304 Multivitamins 1 TAB DAILY 11/23 1000 AC 02/15 (Nephrocaps) 1146 Oseltamivir Phosphate 30 MG ONCE ONE 11/26 2129 CAN (Tamiflu) 11/26 2130 Oseltamivir Phosphate 30 MG ONCE ONE 11/24 2199 AC (Tamiflu) 11/24 2200 Trimethobenzamide HCl 200 MG 4 TIMES/DAY PRN 11/23 1245 AC (Tigan) Zinc Oxide 1 ANGEL BID 11/23 1000 AC 11/23 (Desitin) 2305 Significant home medications include Alprazolam 0.5 mg PO bid PRN anxiety, Cyclobenzaprine 5 mg PO tid PRN pain, Hydroxyzine 25 mg PO tid PRN itching, Levothyroxine 300 mcg PO 1 cap qhs, Oxycodone 5 mg PO 1 tab q4-6 hrs PRN moderate to severe pain, Ramelteon 8 mg PO 1 tab qhs for sleep, Sertraline 100 mg PO 1 tab daily for anxiety, Trazodone 150 mg PO 1 tab qhs for sleep. Past History Past Medical History Neurological: proximal muscle pain & weakness UE/LE B/L EENT: NONE Cardiovascular: CAD, hypertension, hyperlipidemia, PVD, 6 CARDIAC STENTS Respiratory: NONE (on O2-2L), COPD Gastrointestinal: hx colon polyps Hepatic: cholelithiasis (vs. 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 Past Surgical History Surgical History: CARDIAC STENTS X 6 THYROIDECTOMY LEFT LEG FX REPAIR ELBOW FX REPAIR SPINAL FUSION C4-C5 LUE AV fistula Psychosocial History Strengths/Capabilities: Treatment motivated, supportive family Physical Limitations (Interventions): Multiple medical illnesses Psychiatric Treatment History Psych Treatment Psychiatric Treatment Yes Inpatient Treatment No Outpatient Treatment Yes (Sees Luca Manzanares APRN) Location of Treatment [facility] Reason for Treatment Referred from inpatient psych consult at [facility] after hospitalization for CHF in February 2017 Dates of Treatment 03/09/17, 05/13/17, 08/05/17 Response to Treatment Good response to treatment, improvement seen with medications Diagnosis: F41.9 Unspecified Anxiety Disorder; r/o F32.9 Unspecified Depression Risk Factors: age (under 24/over 65), access to lethal means, chronic/serious med cond., high anxiety/distress, male Substance Use/Abuse History Drug Use/Abuse 1 Substances Used/Abused Yes Substance Used/Abused Alcohol First Use 17 Last Used 45 How much used/taken Until drunk How often Almost every night Route of use PO Drug Use/Abuse 2 Substances Used/Abused Yes Substance Used/Abused Marijuana First Use 22 Last Used 45 How much used/taken Patient does not remember How often Patient does not remember Route of use Smoking Drug Use/Abuse 3 Substances Used/Abused Yes Substance Used/Abused Cocaine First Use 20's Last Used 45 How much used/taken Patient cannot remember How often Patient cannot remember Drug Use/Abuse 4 Substances Used/Abused Yes Substance Used/Abused Hallucinogens First Use 25 Drug Use/Abuse 5 Substances Used/Abused Yes Substance Used/Abused Nicotine First Use 15 Last Used 61 How much used/taken 4 packs per day How often everyday For how long 40 years Route of use smoking Substance Abuse Treatment Substance Abuse Treatment Past Substance Abuse [place] No Comments: Patient denies any inpatient or outpatient care for substance abuse. Assessment/Plan Mental Status Orientation: Person, Place, Situation Affect: Anxious Speech: Normal, WNL Neuro-vegetative: Energy Decreased, Sleep Disturbance Mental Status Exam: The patient is alert and oriented x 3 and sitting at the edge of his bed. He is cooperative and answering all questions. His speech is normal in rate and volume. He maintained good eye contact. His mood is anxious and his affect has full range. His thought process is linear and goal directed. He denies suicidal ideations, homicidal ideations, paranoia, or racing thoughts. He denies visual hallucinations, auditory hallucinations, or delusions. His insight and judgment appear fair. Lab Results: Laboratory Tests 11/23 11/23 1500 1414 Chemistry Sodium (137 - 145 mmol/L) 128 L Potassium (3.5 - 5.1 mmol/L) 5.9 H Chloride (98 - 107 mmol/L) 91 L Carbon Dioxide (22 - 30 mmol/L) 17 L Anion Gap (5 - 16) 20 H BUN (9 - 20 mg/dL) 76 H Creatinine (0.7 - 1.2 mg/dL) 6.6 *H Estimated GFR (>60 ml/min) 8 L BUN/Creatinine Ratio (7 - 25 %) 11.5 Troponin I (<0.11 ng/ml) 0.85 *H Hematology CBC w Diff NO MAN DIFF REQ Cancelled WBC (4.8 - 10.8 /CUMM) 7.4 Cancelled RBC (4.70 - 6.10 /CUMM) 5.10 Cancelled Hgb (14.0 - 18.0 G/DL) 14.5 Cancelled Hct (42 - 52 %) 45.8 Cancelled MCV (80.0 - 94.0 FL) 89.7 Cancelled MCH (27.0 - 31.0 PG) 28.5 Cancelled MCHC (33.0 - 37.0 G/DL) 31.7 L Cancelled RDW (11.5 - 14.5 %) 17.6 H Cancelled Plt Count (130 - 400 /CUMM) 233 Cancelled MPV (7.4 - 10.4 FL) 9.2 Cancelled Gran % (42.2 - 75.2 %) 80.9 H Lymphocytes % (20.5 - 51.1 %) 12.0 L Monocytes % (1.7 - 9.3 %) 6.8 Eosinophils % (0 - 5 %) 0 Basophils % (0.0 - 2.0 %) 0.3 Absolute Granulocytes (1.4 - 6.5 /CUMM) 6.0 Absolute Lymphocytes (1.2 - 3.4 /CUMM) 0.9 L Absolute Monocytes (0.10 - 0.60 /CUMM) 0.5 Absolute Eosinophils (0.0 - 0.7 /CUMM) 0 Absolute Basophils (0.0 - 0.2 /CUMM) 0 Diffential Diagnosis: F41.9 Unspecified Anxiety Disorder; r/o F32.9 Unspecified Depression Impression: Patient is a 67 yo male with multiple medical comorbidities is currently diagnosed with anxiety and currently being treated at [facility] by Luca Manzanares APRN. No suicidal ideations or psychotic symptoms and no concerns for safety at this time. Provisional Treatment Plan: 1. Follow up at [facility] for anxiety. No changes to medications at this time. 2. No psychotropic interventions at this time. Thank you for this consult and we will continue to follow this patient. Jose Angel Neff APRN 11/25/17 0817: Assessment/Plan Provisional Treatment Plan: I agree with htis note, and we will notify the patient's prescriber at [facility]PS, and obtain a followup appointment there.
[2017-11-24] MEDS ORDERED: TAMIFLU30 M1 PO (14:10)
[2017-11-24 15:59] LABS: ABSOLUTE BASOPHIL COUNT 0 /CUMM (0.0-0.2); ABSOLUTE EOSINOPHIL COUNT 0 /CUMM (0.0-0.7); ABSOLUTE GRANULOCYTE CT 4.4 /CUMM (1.4-6.5); ABSOLUTE LYMPH COUNT 0.8 /CUMM (1.2-3.4); ABSOLUTE MONOCYTE COUNT 0.4 /CUMM (0.10-0.60); BASOPHIL % 0.3 % (0.0-2.0); EOSINOPHIL % 0.1 % (0-5); GRANULOCYTE % 79.1 % (42.2-75.2); HEMATOCRIT 43.9 % (42-52); MEAN CORPUSCULAR HGB 28.6 PG (27.0-31.0); MEAN CORPUSCULAR VOLUME 89.3 FL (80.0-94.0); MEAN PLATELET VOLUME 9.4 FL (7.4-10.4); PLATELET COUNT 192 /CUMM (130-400); RBC DISTRIBUTION WIDTH 17.3 % (11.5-14.5); RED BLOOD CELL CT 4.91 /CUMM (4.70-6.10); WHITE BLOOD CELL COUNT 5.5 /CUMM (4.8-10.8)
--- NOTE | 2017-11-24 16:20 | PN- Cardiology ---
Subjective Subjective: currently in dialysis. No new cardiac issues or symptoms. Overall feeling better. Major complaint is muscle discomfort. Objective Vital Signs and I&Os Vital Signs Date Time Temp Pulse Resp B/P B/P Pulse O2 O2 Flow FiO2 Mean Ox Delivery Rate 11/24 0800 Nasal 2.0L Cannula 11/24 0712 97.7 89 18 130/82 94 Nasal Cannula 11/24 0000 Nasal 2.0L Cannula 11/23 2215 97.6 88 18 110/60 94 Intake & Output 11/24 1600 11/24 0800 11/24 0000 11/23 1600 11/23 0800 11/23 0000 Intake Total 600 480 720 600 246 Output Total 210 0 4000 200 450 Balance 390 480 -3280 400 -204 Intake, IV 10 Intake, Oral 600 480 720 600 236 Number 0 Bowel Movements Output, 4000 Dialysate Output, 60 Emesis Output, Urine 150 0 0 200 450 Patient 175 lb 175 lb 173 lb 177 lb 188 lb Weight Weight Bed scale Bed scale Chair scale Bed scale Measurement Method Current Medications: Current Medications Sig/Julissa Start time Last Medication Dose Route Stop Time Status Admin Albuterol Sulfate 3 ML Q6P PRN 11/23 0645 AC INH Alprazolam 0.5 MG BID PRN 11/23 2300 AC 11/24 PO 11/30 2259 1146 Calcitriol 1 MCG TUES THURS SAT PRN 11/24 1000 AC IV Calcium Carbonate 1,250 MG TIDAC 11/23 1200 AC 11/24 PO 0847 Glycerin/Mineral Oil 1 ANGEL TID PRN 11/24 1145 AC TOP Glycerin/Mineral Oil 1 ANGEL Q8 11/23 0602 AC 11/24 EXT 0647 Heparin Sodium 5,000 UNIT Q8 11/23 0841 AC 11/24 (Porcine) SC 0647 Melatonin 5 MG AT BEDTIME 11/22 2355 AC 11/23 PO 2304 Mirtazapine 7.5 MG AT BEDTIME 11/23 2200 AC 11/23 PO 2304 Multivitamins 1 TAB DAILY 11/23 1000 AC 11/24 PO 1146 Oseltamivir Phosphate 30 MG ONCE ONE 11/26 2130 CAN PO 11/26 2130 Oseltamivir Phosphate 30 MG ONCE ONE 11/24 2345 DC 11/23 PO 11/24 2346 2348 Oseltamivir Phosphate 30 MG ONCE ONE 11/24 2200 AC PO 11/24 220 Oseltamivir Phosphate 30 MG ONCE ONE 11/24 2130 DC PO 11/241 Oseltamivir Phosphate 30 MG TUES THURS SAT 11/24 1000 DC PO 11/28 0959 Oxycodone/ 1 TAB ONCE ONE 11/23 2300 DC 11/23 Acetaminophen PO 11/23 2301 2304 Patient Medication 1 ED ONE ONE 11/24 1430 TN Teaching ED 11/24 1431 Patient Medication 1 ED ONE ONE 11/24 1415 TN Teaching ED 11/24 1416 Prochlorperazine 5 MG Q6 11/24 1615 AC PO Trimethobenzamide HCl 200 MG 4 TIMES/DAY PRN 11/23 1245 AC IM Zinc Oxide 1 ANGEL BID 11/23 1000 AC 11/23 TOP 2305 Results Last 48 Hrs of Labs/Mics: Laboratory Tests 11/24/17 1420: CBC w Diff NO MAN DIFF REQ, RBC 4.91, MCV 89.3, MCH 28.6, MCHC 32.0 L, RDW 17.3 H, MPV 9.4, Gran % 79.1 H, Lymphocytes % 13.9 L, Monocytes % 6.6, Eosinophils % 0.1, Basophils % 0.3, Absolute Granulocytes 4.4, Absolute Lymphocytes 0.8 L, Absolute Monocytes 0.4, Absolute Eosinophils 0, Absolute Basophils 0 11/24/17 1330: Anion Gap 17 H, Estimated GFR 17 L, BUN/Creatinine Ratio 8.9, Calcium 8.1 L, Phosphorus 5.2 H, Magnesium 1.9, Creatine Kinase 189 H, Albumin 3.2 L, Hep Bs Antigen NONREACTIVE, Hep Bs Antibody NONREACTIVE 11/24/17 1329: Sodium Cancelled, Potassium Cancelled, Chloride Cancelled, Carbon Dioxide Cancelled, Anion Gap Cancelled, BUN Cancelled, Creatinine Cancelled, BUN/ Creatinine Ratio Cancelled, Calcium Cancelled, Phosphorus Cancelled, Magnesium Cancelled, Albumin Cancelled 11/23/17 1500: Anion Gap 20 H, Estimated GFR 8 L, BUN/Creatinine Ratio 11.5, Troponin I 0.85 *H, CBC w Diff NO MAN DIFF REQ, RBC 5.10, MCV 89.7, MCH 28.5, MCHC 31.7 L, RDW 17.6 H, MPV 9.2, Gran % 80.9 H, Lymphocytes % 12.0 L, Monocytes % 6.8, Eosinophils % 0, Basophils % 0.3, Absolute Granulocytes 6.0, Absolute Lymphocytes 0.9 L, Absolute Monocytes 0.5, Absolute Eosinophils 0, Absolute Basophils 0 11/23/17 1414: CBC w Diff Cancelled, WBC Cancelled, RBC Cancelled, Hgb Cancelled, Hct Cancelled , MCV Cancelled, MCH Cancelled, MCHC Cancelled, RDW Cancelled, Plt Count Cancelled, MPV Cancelled 11/23/17 0600: Total Bilirubin Cancelled, Direct Bilirubin Cancelled, AST Cancelled, ALT Cancelled, Alkaline Phosphatase Cancelled, Total Protein Cancelled, Albumin Cancelled 11/22/17 2255: Troponin I Cancelled 11/22/17 1625: Anion Gap 19 H, Estimated GFR 10 L, BUN/Creatinine Ratio 11.5, Glucose 243 H, Calcium 6.7 L, Phosphorus 8.1 H, Magnesium 1.9, Total Bilirubin 1.7 H, Direct Bilirubin 1.7 H, GGT 828 H, AST 27, ALT 38, Alkaline Phosphatase 417 H, Creatine Kinase 254 H, Troponin I 0.92 *H, [id number] Pept > 43051 H, Total Protein 6.7, Albumin 3.7, Globulin 3.0, Albumin/Globulin Ratio 1.2, PT 13.4 H, INR 1.28 H, APTT 37, CBC w Diff NO MAN DIFF REQ, RBC 5.06, MCV 88.6, MCH 28.9, MCHC 32.6 L, RDW 17.8 H, MPV 8.6, Gran % 83.3 H, Lymphocytes % 11.0 L, Monocytes % 5.2, Eosinophils % 0.2, Basophils % 0.3, Absolute Granulocytes 5.1, Absolute Lymphocytes 0.7 L, Absolute Monocytes 0.3, Absolute Eosinophils 0 , Absolute Basophils 0 Microbiology 11/22 1637 NASOPHARYN: Influenza Virus A & B Rapid Smear - COMP INFLUENZA TYPE B Assessment/Plan Assessment/Plan assessment: 1. Shortness of breath, likely multifactorial 2. Acute on chronic HFrEF 3. End-stage renal disease on dialysis 4. History of coronary artery disease 5. COPD 6. Diabetes 7. Mildly elevated troponin Recommendations: -Continue current cardiac medications -Continue dialysis as per nephrology -From a cardiac standpoint, the patient appears to be stable to come off of telemetry. Continue telemetry? No
--- NOTE | 2017-11-24 19:42 | ECHOCARDIOGRAM REPORT ---
DEEPIKA BRANDT Age: 67 : 1950 Gender: M Exam Date: 11/23/2017 20:07 Exam Location: [place] Ht (in): 70 Wt (lb): 176 BSA: 1.99 BP: 120 / 78 Ordering Physician: Megan Brooks MD Referring Physician: Lilibeth Lee MD Technologist: Pebbles Joseph CELINA Room Number: 171 Indications: SHORTNESS OF BREATH Rhythm: Sinus Technical Quality: Fair FINDINGS Left Ventricle Left ventricular dilatation. Moderately reduced global left ventricular systolic function. Moderately abnormal left ventricular ejection fraction estimated at 30-35%. Right Ventricle Right ventricle at upper limits of normal. Right Atrium Right atrial dilatation. Left Atrium Moderate left atrial dilatation. Mitral Valve Mitral valve thickened. Mild mitral annular calcification. Mild-to- moderate mitral regurgitation. Aortic Valve Trileaflet aortic valve. Diffuse thickening (sclerosis) of the aortic valve cusps without reduced excursion. No aortic stenosis. Trace aortic regurgitation. Tricuspid Valve Tricuspid valve not well visualized, grossly normal. Moderate tricuspid regurgitation. Right ventricular systolic pressure estimated to be elevated at 46 mmHg. Pulmonic Valve Structurally normal pulmonic valve. Trace pulmonic regurgitation. Pericardium No pericardial effusion. Great Vessels Aortic root and proximal ascending aorta not well visualized, grossly normal. CONCLUSIONS 1. [id number] aortic sclerosis is present with minimal aortic insufficiency. 2. Mitral leaflet thickening is present with mild annular calcification and mild to moderate mitral insufficiency with moderate left atrial enlargement. 3. No significant pericardial fluid is detected 4. The left ventricular chamber is minimally dilated with mild eccentric hypertrophy. There is global hypokinesia present which is worse in the distal septum and anteroapical segments which are markedly hypokinetic to akinetic. The ejection fraction is approximately 30%. 5. Moderate tricuspid insufficiency is present with minimal pulmonic insufficiency and a right ventricular systolic pressure of 46 mmHg. Lilibeth Lee M.D. (Electronically Signed) Final Date: 24 November 2017 19:42 MEASUREMENTS (Male / Female) Normal Values 2D ECHO LV Diastolic Diameter PLAX 5.7 cm 4.2 - 5.9 / 3.9 - 5.3 cm LV Systolic Diameter PLAX 4.7 cm 2.1 - 4.0 cm LV Fractional Shortening PLAX 17.5 % 25 - 46 % LV Ejection Fraction 2D Teich 36.0 % IVS Diastolic Thickness 1.2 cm LVPW Diastolic Thickness 1.2 cm LV Relative Wall Thickness 0.4 RV Internal Dim ED PLAX 3.7 cm 1.9 - 3.8 cm LVOT Diameter 2.2 cm Aortic Root Diameter 2.9 cm LA Systolic Diameter LX 5.0 cm 3.0 - 4.0 / 2.7 - 3.8 cm LA Volume 87.0 cm 18 - 58 / 22 - 52 cm Ascending Aorta Diameter 3.2 cm DOPPLER AV Peak Velocity 118.0 cm/s AV Peak Gradient 5.6 mmHg AV Mean Velocity 75.1 cm/s AV Mean Gradient 3.0 mmHg AV Velocity Time Integral 22.5 cm LVOT Peak Velocity 82.0 cm/s LVOT Peak Gradient 2.7 mmHg LVOT Mean Velocity 56.8 cm/s LVOT Mean Gradient 2.0 mmHg LVOT Velocity Time Integral 14.8 cm LVOT Stroke Volume 56.3 cm AV Area Cont Eq vti 2.5 cm AV Area Cont Eq pk 2.6 cm MV Peak Velocity 119.0 cm/s MV Peak Gradient 5.7 mmHg MV Mean Velocity 47.1 cm/s MV Mean Gradient 1.0 mmHg Mitral E Point Velocity 104.0 cm/s Mitral A Point Velocity 33.6 cm/s Mitral E to A Ratio 3.1 MV PHT Velocity 127.0 cm/s MV Deceleration Mcculloch 746.0 cm/s MV Pressure Half Time 51.1 ms MV Area PHT 4.3 cm MV Deceleration Time 137.0 ms TR Peak Velocity 300.0 cm/s TR Peak Gradient 36.0 mmHg Right Atrial Pressure 10.0 mmHg Pulmonary Artery Systolic Pressu 46.0 mmHg Right Ventricular Systolic Press 46.0 mmHg PV Peak Velocity 60.9 cm/s PV Peak Gradient 1.5 mmHg PV Mean Velocity 40.7 cm/s PV Mean Gradient 1.0 mmHg PV Velocity Time Integral 10.6 cm LV E' Lateral Velocity 8.9 cm/s Mitral E to LV E' Lateral Ratio 11.7 LV E' Septal Velocity 3.7 cm/s Mitral E to LV E' Septal Ratio 28.1
[2017-11-25 07:00] VITALS: BP 136/62
--- NOTE | 2017-11-25 07:50 | PN- Housestaff ---
See Addendum Subjective Follow-up For: Fluid overload Influenza B Elevated troponin in setting of ESRD ESRD on hemodialysis Anxiety Tele-Events Since Last Visit: Off telemetry Subjective: Patient was seen and examined today. Patient complains of itching which he notes is a chronic problem for him. Patient denies any chest pain, palpitations , shortness of breath, fever/chills, abdominal pain. Patient notes feeling nauseous and having hiccups today. Patient also noted lower extremity pain that is mostly located places feet for initially when he is walking. Pain subsided after a few minutes of walking. Patient notes that he is going to see a vascular surgeon, Dr. Rodriguez, next week. Patient also notes that his hands and feet are always cold. Patient is unsure if he has been taking his thyroid medications. States he was confused the last time his medication was changed and is unsure when the last time he took the medication was. Review of Systems Constitutional: Reports: see HPI. Objective Last 24 Hrs of Vital Signs/I&O Vital Signs Date Time Temp Pulse Resp B/P B/P Pulse O2 O2 Flow FiO2 Mean Ox Delivery Rate 11/25 0700 98.1 91 20 136/62 97 Nasal 2.0L Cannula 11/25 0000 Nasal 2.0L Cannula 11/24 1600 Nasal 2.0L Cannula Intake & Output 11/25 1600 11/25 0800 11/25 0000 Intake Total 482 450 Output Total 3000 Balance 482 -2550 Intake, IV 10 Intake, Oral 472 450 Number 0 Bowel Movements Output, 3000 Dialysate Output, Urine 0 Physical Exam General Appearance: Alert, Oriented X3, Cooperative, No Acute Distress Skin: Multiple excoriations and healed scabs on max hands and legs, Bilateral lower extremity erythema Skin Temp/Moisture Exam: Warm/Dry HEENT: Atraumatic, PERRLA, EOMI, Mucous Membr. moist/pink Cardiovascular: Regular Rate, Normal S1, Normal S2 Lungs: Clear to Auscultation, Normal Air Movement Abdomen: Normal Bowel Sounds, Soft, No Tenderness Extremities: No Clubbing, No Cyanosis, No Edema, Normal Pulses, No Tenderness/ Swelling Vascular: poorly palpable pulses Current Medications: Current Medications Sig/Julissa Start time Last Medication Dose Route Stop Time Status Admin Albuterol Sulfate 3 ML Q6P PRN 11/23 0645 AC INH Alprazolam 0.5 MG BID PRN 11/23 2300 AC 11/24 PO 11/30 2259 2226 Calcitriol 1 MCG TUES THURS SAT PRN 11/24 1000 AC IV Calcium Carbonate 1,250 MG TIDAC 11/23 1200 AC 11/24 PO 1841 Diphenhydramine HCl 25 MG ONCE ONE 11/24 1700 DC 11/24 PO 11/24 1701 1713 Glycerin/Mineral Oil 1 ANGEL TID PRN 11/24 1145 AC 11/24 TOP 2226 Glycerin/Mineral Oil 1 ANGEL Q8 11/23 0602 AC 11/25 EXT 0544 Heparin Sodium 5,000 UNIT Q8 11/23 0841 AC 11/25 (Porcine) SC 0545 Hydroxyzine HCl 25 MG 4 TIMES/DAY PRN 11/25 0815 PO Levothyroxine Sodium 0.025 MG DAILY AC 11/24 2100 AC 11/25 PO 0544 Melatonin 5 MG AT BEDTIME 11/22 2355 AC 11/24 PO 2225 Mirtazapine 7.5 MG AT BEDTIME 11/23 2200 AC 11/25 PO 0018 Multivitamins 1 TAB DAILY 11/23 1000 AC 11/24 PO 1146 Oseltamivir Phosphate 30 MG ONCE ONE 11/24 2345 DC 11/23 PO 11/24 2346 2348 Oseltamivir Phosphate 30 MG ONCE ONE 11/24 2200 DC 11/24 PO 11/24 2201 2226 Oxycodone/ 1 TAB ONCE ONE 11/24 2145 CAN Acetaminophen PO 11/24 2146 Patient Medication 1 ED ONE ONE 11/24 1430 ID Teaching ED 11/24 1431 Patient Medication 1 ED ONE ONE 11/24 1415 ID Teaching ED 11/24 1416 Prochlorperazine 5 MG Q6 11/24 1615 AC 11/25 PO 0544 Tramadol HCl 50 MG ONCE ONE 11/24 2145 DC 11/24 PO 11/24 2146 2226 Trimethobenzamide HCl 200 MG 4 TIMES/DAY PRN 11/23 1245 AC IM Zinc Oxide 1 ANGEL BID 11/23 1000 AC 11/24 TOP 2227 Last 24 Hrs of Lab/Angus Results Last 24 Hrs of Labs/Mics: Laboratory Tests 11/24/17 1730: 11/24/17 1420: CBC w Diff NO MAN DIFF REQ, RBC 4.91, MCV 89.3, MCH 28.6, MCHC 32.0 L, RDW 17.3 H, MPV 9.4, Gran % 79.1 H, Lymphocytes % 13.9 L, Monocytes % 6.6, Eosinophils % 0.1, Basophils % 0.3, Absolute Granulocytes 4.4, Absolute Lymphocytes 0.8 L, Absolute Monocytes 0.4, Absolute Eosinophils 0, Absolute Basophils 0 11/24/17 1330: Anion Gap 17 H, Estimated GFR 17 L, BUN/Creatinine Ratio 8.9, Calcium 8.1 L, Phosphorus 5.2 H, Magnesium 1.9, Total Bilirubin 1.5 H, Direct Bilirubin 1.5 H, AST 31, ALT 33, Alkaline Phosphatase 401 H, Creatine Kinase 189 H, Total Protein 5.9 L, Albumin 3.2 L, TSH 23.400 H, Free T4 0.18 L, Total T3 0.47 L , Hep Bs Antigen NONREACTIVE, Hep Bs Antibody NONREACTIVE 11/24/17 1329: Sodium Cancelled, Potassium Cancelled, Chloride Cancelled, Carbon Dioxide Cancelled, Anion Gap Cancelled, BUN Cancelled, Creatinine Cancelled, BUN/ Creatinine Ratio Cancelled, Calcium Cancelled, Phosphorus Cancelled, Magnesium Cancelled, Albumin Cancelled Assessment/Plan Assessment: 67-year-old gentleman with past medical history of COPD on 2 L of oxygen, coronary artery disease status post 6 stents last placed in November 2016, hypertension, hyperlipidemia, peripheral vascular disease [left leg stent], colon polyp, end-stage renal disease on hemodialysis [has left arm AV fistula], chronic low back pain, anxiety, depression, diabetes, thyroid cancer status post thyroidectomy came to [facility] with complaints of shortness of breath, myalgia , itching and found to be influenza type B positive. Patient has had no episodes of vomitting today. Patient's shortness of breath has resolved. Patient is back to his baseline oxygen. Patient complains of itching which has been chronic and complains of leg pain. According to CT [employer] POWER [employer]CTOR patient was given Percocet on 11/21. Patient has enough medication until he sees his vascular surgeon next week. Patient was given Atarax for itching. Patient is to follow-up with nephrology and has a dialysis session tomorrow on 11/26. Patient is to take 1 more dose of Tamiflu after his dialysis. Patient's thyroid levels were checked yesterday which shows hypothyroidism with elevated TSH and low free T4 and T3. Patient is unsure of whether or not he has been taking his thyroid medications. We spoke to Dr. Martinez with the patient's enrollment counselor and stated patient should be taking 200 mcg of tirosint daily and should be seen in 1 week. Assessment and plan Admitted to telemetry. Patient's blood pressure today is within normal range. Patient can restart his antihypertensives. Patient is to receive dialysis tomorrow 11/26. Nephrology and cardiology on board. Appreciate recommendations. Patient is to follow-up with his ged teacher and concrete paver. Strict I/O and daily weights Tamiflu after each dialysis per nephrology recommendations. Tamiflu one dose , 11/24 and then 11/26 in the evening after each dialysis. Patient had elevated alk phos and GGT. Patient had elevated LFTs and CPK in the past and lipitor was stopped. Patient was previously worked up during his last admission. Hepatitis panel negative, Antinuclear antibody, anti-smooth muscle antibody, rheumatoid factor, ANCA titer liver/kidney microsomal type and antibody negative in the last admission. Patient sees Dr. Lee, Dr. Palma, Dr. Agrawal outpatient Patient has left arm AV fistula which appears clean with no swelling or erythema. Code-full code Diet - renal diet with addition of calcium carbonate Dispo: discharge home today Problem List: 1. Influenza B 2. ESRD (end stage renal disease) on dialysis 3. Volume overload 4. Anxiety disorder Pain Ratin Pain Location: legs Pain Goal: Pain 4 or less Pain Plan: patient has percocet tabs already prescribed at home per [facility]PMP Tomorrow's Labs & Rationales: none- discharge today
--- NOTE | 2017-11-25 09:18 | Patient Discharge Instructions ---
Discharge Instructions General Discharge Information You were seen/treated for: Flu Shortness of breath Anxiety Renal disease You had these procedures: Dialysis Special Instructions: 1. Please follow up with your pcp within 1 week of discharge. 2. Please follow up with your pole sander operator within 1 week of discharge. 3. Please follow up with your cad draftsman and go to dialysis. Next session on Sunday 11/26. 4. Please take one more dose of Tamiflu after your dialysis on 11/26. 5. Please follow up with the vascular surgeon for your legs. 6. Please take your thyroid medication as prescribed 7. You have been given medication for itching. Please take as prescribed. 8. The medication record was checked. You have pain medication (percocet) filled recently on 11/21. No more medication can be prescribed for you at this time. Diet Continue normal diet: No Recommended Diet: Renal Dialysis Activity Full Activity/No Limits: No Activity Self Limited: Yes Acute Coronary Syndrome Inclusion Criteria At DC or during hospital stay patient has or had the following: ACS DIAGNOSIS No Discharge Core Measures Meds if any: Prescribed or Continued at Discharge Meds if any: NOT Prescribed or Continued at Discharge Congestive Heart Failure Inclusion Criteria At DC or during hospital stay patient has or had the following: CHF DIAGNOSIS No Discharge Core Measures Meds if any: Prescribed or Continued at Discharge Meds if any: NOT Prescribed or Continued at Discharge Cerebrovascular accident Inclusion Criteria At DC or during hospital stay patient has or had the following: CVA/TIA Diagnosis No Discharge Core Measures Meds if any: Prescribed or Continued at Discharge Meds if any: NOT Prescribed or Continued at Discharge Venous thromboembolism Inclusion Criteria VTE Diagnosis No VTE Type NONE VTE Confirmed by (Test) NONE Discharge Core Measures - Per Current guidelines, there needs to be overlap - treatment for the first 5 days of Warfarin therapy. - If discharged on Warfarin prior to 5 days of - overlap therapy, the patient will need to be - assessed for post discharge needs including - *Post discharge parental anticoagulation - *Warfarin and/or parental anticoagulation education - *Follow up date to check INR post discharge At least 5 days overlap therapy as Inpatient No Meds if any: Prescribed or Continued at Discharge Note: Overlap Therapy is Warfarin and Anticoagulant Meds if any: NOT Prescribed or Continued at Discharge
--- NOTE | 2017-11-25 10:06 | PN- Nephrology ---
Assessment/Plan Nephrology Assessment: 1. ESRD: due to DM & HTN; no HD need today 2. Volume overload: improved post UF 3. Influenza: improved; complete Tamiflu dose post HD tomorrow 4. HypoCa/hyperphos: improved 5. Hyperkalemia: resolved Suggestion: HD tomorrow - can do as outpt OK for d/c from renal perspective Subjective Subjective: Feeling much better SOB & cough resolved Still having myalgias Objective Vital Signs and I&Os Vital Signs Date Time Temp Pulse Resp B/P B/P Pulse O2 O2 Flow FiO2 Mean Ox Delivery Rate 11/25 0700 98.1 91 20 136/62 97 Nasal 2.0L Cannula 11/25 0000 Nasal 2.0L Cannula 11/24 1600 Nasal 2.0L Cannula Intake & Output 11/25 1600 11/25 0400 11/24 1600 11/24 0400 11/23 1600 11/23 0400 Intake Total 140 510 8128 720 846 Output Total 3000 210 4000 650 Balance 782 -2550 870 -3280 196 Intake, IV 10 10 Intake, Oral 406 467 6220 720 836 Number 0 0 Bowel Movements Output, 3000 4000 Dialysate Output, 60 Emesis Output, Urine 0 150 0 650 Patient 175 lb 173 lb 177 lb 188 lb Weight Weight Bed scale Bed scale Chair scale Bed scale Measurement Method Physical Exam General Appearance: well developed/nourished, no apparent distress, alert Head: atraumatic Ears, Nose, Throat: normal ENT inspection Respiratory: normal breath sounds, chest non-tender, no respiratory distress, quiet respiration, lungs clear Cardiovascular: regular rate/rhythm, edema (trace legs) Abdomen: soft, non-tender, no organomegaly Extremities: swelling (trace), + bruit KAREY AVF Neurologic/Psychiatric: awake, alert, oriented x 3 Skin: intact Current Medications: Current Medications Sig/Julissa Start time Last Medication Dose Route Stop Time Status Admin Albuterol Sulfate 3 ML Q6P PRN 11/23 0645 AC INH Alprazolam 0.5 MG BID PRN 11/23 2300 AC 11/24 PO 11/30 2259 2226 Calcitriol 1 MCG TUES THURS SAT PRN 11/24 1000 AC IV Calcium Carbonate 1,250 MG TIDAC 11/23 1200 AC 11/25 PO 0852 Diphenhydramine HCl 25 MG ONCE ONE 11/24 1700 DC 11/24 PO 11/24 1701 1713 Glycerin/Mineral Oil 1 ANGEL TID PRN 11/24 1145 AC 11/24 TOP 2226 Glycerin/Mineral Oil 1 ANGEL Q8 11/23 0602 AC 11/25 EXT 0544 Heparin Sodium 5,000 UNIT Q8 11/23 0841 AC 11/25 (Porcine) SC 0545 Hydroxyzine HCl 25 MG 4 TIMES/DAY PRN 11/25 0815 AC 11/25 PO 0916 Levothyroxine Sodium 0.025 MG DAILY AC 11/24 2100 AC 11/25 PO 0544 Melatonin 5 MG AT BEDTIME 11/22 2355 AC 11/24 PO 2225 Mirtazapine 7.5 MG AT BEDTIME 11/23 2200 AC 11/25 PO 0018 Multivitamins 1 TAB DAILY 11/23 1000 AC 11/25 PO 0916 Oseltamivir Phosphate 30 MG ONCE ONE 11/24 2345 DC 11/23 PO 11/24 2346 2348 Oseltamivir Phosphate 30 MG ONCE ONE 11/24 2200 DC 11/24 PO 11/24 2201 2226 Oxycodone/ 1 TAB ONCE ONE 11/24 2145 CAN Acetaminophen PO 11/24 2146 Patient Medication 1 ED ONE ONE 11/24 1430 NM Teaching ED 11/24 1431 Patient Medication 1 ED ONE ONE 11/24 1415 NM Teaching ED 11/24 1416 Prochlorperazine 5 MG Q6 11/24 1615 AC 11/25 PO 0544 Tramadol HCl 50 MG ONCE ONE 11/24 2145 DC 11/24 PO 11/24 2146 2226 Trimethobenzamide HCl 200 MG 4 TIMES/DAY PRN 11/23 1245 AC IM Zinc Oxide 1 ANGEL BID 11/23 1000 AC 11/24 TOP 2227 Results Pertinent Lab Results: Laboratory Tests 11/24 11/24 11/24 1730 1420 1330 Chemistry Sodium (137 - 145 mmol/L) 137 Potassium (3.5 - 5.1 mmol/L) 4.2 Chloride (98 - 107 mmol/L) 97 L Carbon Dioxide (22 - 30 mmol/L) 22 Anion Gap (5 - 16) 17 H BUN (9 - 20 mg/dL) 16 32 H Creatinine (0.7 - 1.2 mg/dL) 3.6 H Estimated GFR (>60 ml/min) 17 L BUN/Creatinine Ratio (7 - 25 %) 8.9 Calcium (8.4 - 10.2 mg/dL) 8.1 L Phosphorus (2.5 - 4.5 mg/dL) 5.2 H Magnesium (1.6 - 2.3 mg/dL) 1.9 Total Bilirubin (0.2 - 1.3 mg/dL) 1.5 H Direct Bilirubin (< 0.4 mg/dL) 1.5 H AST (17 - 59 U/L) 31 ALT (21 - 72 U/L) 33 Alkaline Phosphatase (< 127 U/L) 401 H Creatine Kinase (55 - 170 U/L) 189 H Total Protein (6.3 - 8.2 g/dL) 5.9 L Albumin (3.5 - 5.0 g/dL) 3.2 L TSH (0.270 - 4.200 uIU/mL) 23.400 H Free T4 (0.78 - 2.44 ng/dL) 0.18 L Total T3 (0.97 - 1.69 ng/mL) 0.47 L Hematology CBC w Diff NO MAN DIFF REQ WBC (4.8 - 10.8 /CUMM) 5.5 RBC (4.70 - 6.10 /CUMM) 4.91 Hgb (14.0 - 18.0 G/DL) 14.1 Hct (42 - 52 %) 43.9 MCV (80.0 - 94.0 FL) 89.3 MCH (27.0 - 31.0 PG) 28.6 MCHC (33.0 - 37.0 G/DL) 32.0 L RDW (11.5 - 14.5 %) 17.3 H Plt Count (130 - 400 /CUMM) 192 MPV (7.4 - 10.4 FL) 9.4 Gran % (42.2 - 75.2 %) 79.1 H Lymphocytes % (20.5 - 51.1 %) 13.9 L Monocytes % (1.7 - 9.3 %) 6.6 Eosinophils % (0 - 5 %) 0.1 Basophils % (0.0 - 2.0 %) 0.3 Absolute Granulocytes (1.4 - 6.5 /CUMM) 4.4 Absolute Lymphocytes (1.2 - 3.4 /CUMM) 0.8 L Absolute Monocytes (0.10 - 0.60 /CUMM) 0.4 Absolute Eosinophils (0.0 - 0.7 /CUMM) 0 Absolute Basophils (0.0 - 0.2 /CUMM) 0 Serology Hep Bs Antigen (NONREACTIVE) NONREACTIVE Hep Bs Antibody (NONREACTIVE) NONREACTIVE 11/24 11/24 11/23 1329 0600 1500 Chemistry Sodium (137 - 145 mmol/L) Cancelled Cancelled 128 L Potassium (3.5 - 5.1 mmol/L) Cancelled Cancelled 5.9 H Chloride (98 - 107 mmol/L) Cancelled Cancelled 91 L Carbon Dioxide (22 - 30 mmol/L) Cancelled Cancelled 17 L Anion Gap (5 - 16) Cancelled Cancelled 20 H BUN (9 - 20 mg/dL) Cancelled Cancelled 76 H Creatinine (0.7 - 1.2 mg/dL) Cancelled Cancelled 6.6 *H Estimated GFR (>60 ml/min) 8 L BUN/Creatinine Ratio (7 - 25 %) Cancelled Cancelled 11.5 Calcium Cancelled Phosphorus Cancelled Cancelled Magnesium Cancelled Cancelled Total Bilirubin Cancelled Direct Bilirubin Cancelled AST Cancelled ALT Cancelled Alkaline Phosphatase Cancelled Troponin I (<0.11 ng/ml) 0.85 *H Total Protein Cancelled Albumin Cancelled Cancelled Hematology CBC w Diff NO MAN DIFF REQ WBC (4.8 - 10.8 /CUMM) 7.4 RBC (4.70 - 6.10 /CUMM) 5.10 Hgb (14.0 - 18.0 G/DL) 14.5 Hct (42 - 52 %) 45.8 MCV (80.0 - 94.0 FL) 89.7 MCH (27.0 - 31.0 PG) 28.5 MCHC (33.0 - 37.0 G/DL) 31.7 L RDW (11.5 - 14.5 %) 17.6 H Plt Count (130 - 400 /CUMM) 233 MPV (7.4 - 10.4 FL) 9.2 Gran % (42.2 - 75.2 %) 80.9 H Lymphocytes % (20.5 - 51.1 %) 12.0 L Monocytes % (1.7 - 9.3 %) 6.8 Eosinophils % (0 - 5 %) 0 Basophils % (0.0 - 2.0 %) 0.3 Absolute Granulocytes (1.4 - 6.5 /CUMM) 6.0 Absolute Lymphocytes (1.2 - 3.4 /CUMM) 0.9 L Absolute Monocytes (0.10 - 0.60 /CUMM) 0.5 Absolute Eosinophils (0.0 - 0.7 /CUMM) 0 Absolute Basophils (0.0 - 0.2 /CUMM) 0 11/23 11/23 11/23 11/22 1414 1413 0600 2255 Chemistry Sodium Cancelled Potassium Cancelled Chloride Cancelled Carbon Dioxide Cancelled Anion Gap Cancelled BUN Cancelled Creatinine Cancelled BUN/Creatinine Ratio Cancelled Calcium Cancelled Phosphorus Cancelled Magnesium Cancelled Total Bilirubin Cancelled Direct Bilirubin Cancelled AST Cancelled ALT Cancelled Alkaline Phosphatase Cancelled Troponin I Cancelled Total Protein Cancelled Albumin Cancelled Cancelled Hematology CBC w Diff Cancelled WBC Cancelled RBC Cancelled Hgb Cancelled Hct Cancelled MCV Cancelled MCH Cancelled MCHC Cancelled RDW Cancelled Plt Count Cancelled MPV Cancelled Serology Hep Bs Antibody Cancelled 11/22 11/22 1625 1422 Chemistry Sodium (137 - 145 mmol/L) 132 L Potassium (3.5 - 5.1 mmol/L) 4.8 Chloride (98 - 107 mmol/L) 90 L Carbon Dioxide (22 - 30 mmol/L) 23 Anion Gap (5 - 16) 19 H BUN (9 - 20 mg/dL) 68 H Creatinine (0.7 - 1.2 mg/dL) 5.9 *H Estimated GFR (>60 ml/min) 10 L BUN/Creatinine Ratio (7 - 25 %) 11.5 Glucose (65 - 99 mg/dL) 243 H Calcium (8.4 - 10.2 mg/dL) 6.7 L Phosphorus (2.5 - 4.5 mg/dL) 8.1 H Magnesium (1.6 - 2.3 mg/dL) 1.9 Total Bilirubin (0.2 - 1.3 mg/dL) 1.7 H Direct Bilirubin (< 0.4 mg/dL) 1.7 H GGT (15 - 73 U/L) 828 H AST (17 - 59 U/L) 27 ALT (21 - 72 U/L) 38 Alkaline Phosphatase (< 127 U/L) 417 H Creatine Kinase (55 - 170 U/L) 254 H Troponin I (<0.11 ng/ml) 0.92 *H [id number] Pept (<125 pg/mL) > 34806 H Total Protein (6.3 - 8.2 g/dL) 6.7 Albumin (3.5 - 5.0 g/dL) 3.7 Globulin (1.9 - 4.2 gm/dL) 3.0 Albumin/Globulin Ratio (1.1 - 2.2 %) 1.2 Coagulation PT (9.4 - 12.5 SEC) 13.4 H INR (0.90 - 1.17) 1.28 H APTT (25 - 37 SEC) 37 Hematology CBC w Diff NO MAN DIFF REQ WBC (4.8 - 10.8 /CUMM) 6.1 RBC (4.70 - 6.10 /CUMM) 5.06 Hgb (14.0 - 18.0 G/DL) 14.6 Hct (42 - 52 %) 44.9 MCV (80.0 - 94.0 FL) 88.6 MCH (27.0 - 31.0 PG) 28.9 MCHC (33.0 - 37.0 G/DL) 32.6 L RDW (11.5 - 14.5 %) 17.8 H Plt Count (130 - 400 /CUMM) 261 MPV (7.4 - 10.4 FL) 8.6 Gran % (42.2 - 75.2 %) 83.3 H Lymphocytes % (20.5 - 51.1 %) 11.0 L Monocytes % (1.7 - 9.3 %) 5.2 Eosinophils % (0 - 5 %) 0.2 Basophils % (0.0 - 2.0 %) 0.3 Absolute Granulocytes (1.4 - 6.5 /CUMM) 5.1 Absolute Lymphocytes (1.2 - 3.4 /CUMM) 0.7 L Absolute Monocytes (0.10 - 0.60 /CUMM) 0.3 Absolute Eosinophils (0.0 - 0.7 /CUMM) 0 Absolute Basophils (0.0 - 0.2 /CUMM) 0 Serology Virus Culture Pending
[2017-11-25] MEDS ORDERED: HYDROXYZINE HCL25 M2 PO ×2 (10:33→10:44)
[2017-11-25] MEDS ORDERED: TIROSINT150 MC1 PO ×2 (10:36→10:44)
[2017-11-25] MEDS ORDERED: TAMIFLU30 M1 PO (10:44)
--- NOTE | 2017-11-25 17:31 | Discharge Summary ---
Visit Information Visit Dates Admission Date: 11/22/17 Discharge Date: 11/25/17 Hospital Course Course Attending Physician: Trevor Ibarra MD Primary Care Physician: Lakeisha Benedict DO Consulting Request: 1 Consulting Specialty: Cardiology Consulting Physician: Dr. Zamudio Consulting Request: 2 Consulting Specialty: Nephrology Consulting Physician: Dr. Garcia Reason for Consult: Renal Dilaysis Consulting Request: 3 Consulting Specialty: Psychiatry Hospital Course: Patient is a 67 y/o male with PMH of ESRD on hemodialysis, COPD on 2L NC, CAD s/ p 6 stents (in November 2016), HTN, HLD, PVD (left leg stent), colon polyp, chronic low back pain, anxiety, depression, diabetes, thyroid cancer status post thyroidectomy presented this admission with complaints of shortness of breath, myalgia, itching and found to be influenza type B positive. On admission: Vitals: Temperature 97.6, blood pressure 103/71, respiratory rate 20, pulse rate 80, Saturating 100% on on 2 L of oxygen. Labs: WBC 6.1, hemoglobin 14.6, sodium 132, potassium 4.8, BUNs 68, creatinine 5.9, total bilirubin 1.7, calcium 6.7, glucose 243, alkaline phosphatase 4.7, troponin 0.92, proBNP 35,000, influenza type B+ Imaging: Increased pulmonary vascular congestion and interstitial edema compared to prior chest x-ray 09/25/2017. Patient was admitted to telemetry for management of the followin. Dyspnea 2/2 to Volume Overload from ESRD, Dyspnea 2/2 Anxiety Patient presented with shortness of breath and symptoms of what he described as a panic attack. Patient was due for a hemodialysis treatment on the day of admission which he missed and presented to the ED instead. Patient's last hemodialysis was on 11/19. Patient on physical exam appeared fluid overloaded. Patient's CXR showed increased pulmonary congestion and vascular edema compared to previous xray. Patient seen by nephrology and received hemodialysis x 2 on and 11/24. After which his symptoms improved. Patient also noted increased anxiety. He was seen by psychiatry who recommended outpatient psychiatry. * Patient to continue regular hemodialysis schedule starting 11/26 * Patient should follow up with [facility] * Patient to continue his current psychiatric medications * Hydroxyzine for itching 2. Influenza B Patient tested Influenza B positve. Patient was started on Tamiflu 30mg (renally dosed). Per nephrology patient received Tamiflu after his dialysis sessions. * Patient due for 1 more Tamiflu dose after dialysis on 11/26 3. Hypothyroidism Patient's thyroid studies were checked this admission. Patient is unsure if he has been taking this thyroid medications. TSH: 23.4, Free T4: 0.18, T3: 0.47. This is an improvement from previous levels. * Per Dr. Agrawal, patient to continue taking Tirosint 200mcg PO daily * Patient should follow up with Dr. Agrawal (endocrinology) 4. Elevated Troponin Patient had elevated Troponin which downtrended. Patient has chronically elevated troponin with no changes on EKG or chest pain. Patient was monitored on telemetry and seen by cardiology. Troponins likely elevated in the setting of ESRD. 5. Elevated LFTs Patient had elevated bilirubin, alkaline phosphatase and GGT. Patient had elevated LFTs and CPK in the past and lipitor was stopped. Patient was previously worked up during his last admission. Hepatitis panel negative, Antinuclear antibody, anti-smooth muscle antibody, rheumatoid factor, ANCA titer liver/kidney microsomal type and antibody negative in the last admission. * Further outpatient evaluation with pcp and GI Allergies: Coded Allergies: morphine (Mild, LOOPY 01/18/17) hydromorphone (DEPRESSED RESPIRATIONS 01/18/17) Pertinent Lab Results: SERVICE DATE: 11/22/17-1422 EXAM TYPE: RAD - XRY-PORTABLE CHEST XRAY EXAMINATION: XR PORTABLE CHEST CLINICAL INFORMATION: Shortness of breath. COMPARISON: Chest x-ray 09/25/2017 TECHNIQUE: Portable frontal view of the chest was obtained. 2:45 PM FINDINGS: Increased moderate prominence of the central hilar vasculature and increased moderate interstitial lung markings consistent with pulmonary vascular congestion with interstitial edema. No large pleural effusion. No focal consolidation. There is asymmetric elevation of the right diaphragm compared to left. IMPRESSION: Increased pulmonary vascular congestion and interstitial edema compared to prior chest x-ray 09/25/2017. SERVICE DATE: 11/23/17- EXAM TYPE: CARD - ECHOCARDIOGRAM DEEPIKA BRANDT Age: 67 : 1950 Gender: M Exam Date: 11/23/2017 20:07 Exam Location: [place] Ht (in): 70 Wt (lb): 176 BSA: 1.99 BP: 120 / 78 Ordering Physician: Megan Brooks MD Referring Physician: Lilibeth Lee MD Technologist: Pebbles Joseph [facility] Room Number: 171 Indications: SHORTNESS OF BREATH Rhythm: Sinus Technical Quality: Fair FINDINGS Left Ventricle Left ventricular dilatation. Moderately reduced global left ventricular systolic function. Moderately abnormal left ventricular ejection fraction estimated at 30-35%. Right Ventricle Right ventricle at upper limits of normal. Right Atrium Right atrial dilatation. Left Atrium Moderate left atrial dilatation. Mitral Valve Mitral valve thickened. Mild mitral annular calcification. Mild-to- moderate mitral regurgitation. Aortic Valve Trileaflet aortic valve. Diffuse thickening (sclerosis) of the aortic valve cusps without reduced excursion. No aortic stenosis. Trace aortic regurgitation. Tricuspid Valve Tricuspid valve not well visualized, grossly normal. Moderate tricuspid regurgitation. Right ventricular systolic pressure estimated to be elevated at 46 mmHg. Pulmonic Valve Structurally normal pulmonic valve. Trace pulmonic regurgitation. Pericardium No pericardial effusion. Great Vessels Aortic root and proximal ascending aorta not well visualized, grossly normal. CONCLUSIONS 1. Mepi-od-wzorvxlh aortic sclerosis is present with minimal aortic insufficiency. 2. Mitral leaflet thickening is present with mild annular calcification and mild to moderate mitral insufficiency with moderate left atrial enlargement. 3. No significant pericardial fluid is detected 4. The left ventricular chamber is minimally dilated with mild eccentric hypertrophy. There is global hypokinesia present which is worse in the distal septum and anteroapical segments which are markedly hypokinetic to akinetic. The ejection fraction is approximately 30%. 5. Moderate tricuspid insufficiency is present with minimal pulmonic insufficiency and a right ventricular systolic pressure of 46 mmHg. Lilibeth Lee M.D. (Electronically Signed) Final Date: 24 November 2017 19:42 MEASUREMENTS (Male / Female) Normal Values 2D ECHO LV Diastolic Diameter PLAX 5.7 cm 4.2 - 5.9 / 3.9 - 5.3 cm LV Systolic Diameter PLAX 4.7 cm 2.1 - 4.0 cm LV Fractional Shortening PLAX 17.5 % 25 - 46 % LV Ejection Fraction 2D Teich 36.0 % IVS Diastolic Thickness 1.2 cm LVPW Diastolic Thickness 1.2 cm LV Relative Wall Thickness 0.4 RV Internal Dim ED PLAX 3.7 cm 1.9 - 3.8 cm LVOT Diameter 2.2 cm Aortic Root Diameter 2.9 cm LA Systolic Diameter LX 5.0 cm 3.0 - 4.0 / 2.7 - 3.8 cm LA Volume 87.0 cm 18 - 58 / 22 - 52 cm Ascending Aorta Diameter 3.2 cm DOPPLER AV Peak Velocity 118.0 cm/s AV Peak Gradient 5.6 mmHg AV Mean Velocity 75.1 cm/s AV Mean Gradient 3.0 mmHg AV Velocity Time Integral 22.5 cm LVOT Peak Velocity 82.0 cm/s LVOT Peak Gradient 2.7 mmHg LVOT Mean Velocity 56.8 cm/s LVOT Mean Gradient 2.0 mmHg LVOT Velocity Time Integral 14.8 cm LVOT Stroke Volume 56.3 cm AV Area Cont Eq vti 2.5 cm AV Area Cont Eq pk 2.6 cm MV Peak Velocity 119.0 cm/s MV Peak Gradient 5.7 mmHg MV Mean Velocity 47.1 cm/s MV Mean Gradient 1.0 mmHg Mitral E Point Velocity 104.0 cm/s Mitral A Point Velocity 33.6 cm/s Mitral E to A Ratio 3.1 MV PHT Velocity 127.0 cm/s MV Deceleration [place] 746.0 cm/s MV Pressure Half Time 51.1 ms MV Area PHT 4.3 cm MV Deceleration Time 137.0 ms TR Peak Velocity 300.0 cm/s TR Peak Gradient 36.0 mmHg Right Atrial Pressure 10.0 mmHg Pulmonary Artery Systolic Pressu 46.0 mmHg Right Ventricular Systolic Press 46.0 mmHg PV Peak Velocity 60.9 cm/s PV Peak Gradient 1.5 mmHg PV Mean Velocity 40.7 cm/s PV Mean Gradient 1.0 mmHg PV Velocity Time Integral 10.6 cm LV E' Lateral Velocity 8.9 cm/s Mitral E to LV E' Lateral Ratio 11.7 LV E' Septal Velocity 3.7 cm/s Mitral E to LV E' Septal Ratio 28.1 Disposition Summary Disposition Principal Diagnosis: Volume Overload 2/2 ESRD Additional Diagnosis: Influenza B, Anxiety, Hypothyroidism, Elevated Troponin Discharge Disposition: home health services Discharge Instructions General Discharge Information Code Status: Full Code Patient's Diet: Renal Dialysis Patient's Activity: Self-Limited Follow-Up Instructions/Appts: 1. Please follow up with your pcp within 1 week of discharge. 2. Please follow up with your creative perfumer within 1 week of discharge. 3. Please follow up with your health type technician and go to dialysis. Next session on Sunday 11/26. 4. Please take one more dose of Tamiflu after your dialysis on 11/26. 5. Please follow up with the vascular surgeon for your legs. 6. Please take your thyroid medication as prescribed. 7. You have been given medication for itching. Please take as prescribed. 8. The medication record was checked. You have pain medication (percocet) filled recently on November 21. No more medication can be prescribed for you at this time. Medications at Discharge Discharge Medications: Stop taking the following medications: Oxycodone HCl (Oxycodone HCl) 5 MG TABLET ORAL EVERY 4-6 HOURS NEEDED as needed for moderate to severe pain Qty = 5 Continue taking these medications: Trazodone HCl (Trazodone HCl) 150 MG TABLET 1 Tablet ORAL Every night Qty = 35 Comments: NOT GIVEN IN HOSPITAL Tamsulosin HCl (Tamsulosin HCl) 0.4 MG CAP.ER.24H 1 Capsule ORAL DAILY Qty = 30 Comments: NOT GIVEN IN HOSPITAL Folic Acid (Folic Acid) 1 MG TABLET 1 Tablet ORAL DAILY Qty = 30 Comments: NOT GIVEN IN HOSPITAL Aspirin (Ecotrin*) 325 MG TABLET.DR 1 Tablet ORAL Every night Comments: NOT GIVEN IN HOSPITAL Alprazolam (Xanax) 0.5 MG TABLET 1 Tablet ORAL TWICE DAILY as needed for ANXIETY Qty = 15 Comments: Last Taken: 11/24/17 Time: 10:30 PM Isosorbide Mononitrate (Isosorbide Mononitrate ER) 60 MG TAB.ER.24H 1 Tablet ORAL DAILY Qty = 30 Comments: NOT GIVEN IN HOSPITAL Ramelteon (Rozerem) 8 MG TABLET 1 Tablet ORAL AT BEDTIME Qty = 30 Comments: NOT GIVEN IN HOSPITAL Sertraline HCl (Zoloft) 100 MG TABLET 1 Tablet ORAL DAILY Comments: NOT GIVEN IN HOSPITAL Clopidogrel Bisulfate (Plavix) 75 MG TABLET 75 Milligram ORAL DAILY Qty = 30 Comments: NOT GIVEN IN HOSPITAL Sennosides/Docusate Sodium (Senna S Tablet) 8.6 MG-50 MG TABLET 2 Tablet ORAL Every night Comments: NOT GIVEN IN HOSPITAL Metoprolol Tartrate (Metoprolol Tartrate) 25 MG TABLET 0.5 Tablet ORAL TWICE DAILY Qty = 60 Comments: NOT GIVEN IN HOSPITAL Cyclobenzaprine HCl (Cyclobenzaprine HCl) 5 MG TABLET 1 Tablet ORAL THREE TIMES DAILY Comments: NOT GIVEN IN HOSPITAL Sevelamer Carbonate (Renvela) 800 MG TABLET 2 Tablet ORAL 3 TIMES DAILY BEFORE MEALS Comments: NOT GIVEN IN HOSPITAL Losartan Potassium (Losartan Potassium) 50 MG TABLET 50 Milligram ORAL DAILY Qty = 30 Comments: NOT GIVEN IN HOSPITAL Calcium Carbonate (Calcium Carbonate) 200 MG CALCIUM (500 MG) TAB.CHEW 2,500 Milligram ORAL WITH MEALS Qty = 60 Comments: Last Taken: 11/25/17 Time: 9:00 AM Epoetin [place] (Procrit) 3,000 UNIT/ML VIAL 3,000 Unit INTRAVEN TuThSa as needed for HEMODIALYSIS Qty = 1 Comments: GIVEN WITH DIALYSIS Epoetin [place] (Procrit) 2,000 UNIT/ML VIAL 2,000 Unit INTRAVEN TuThSa as needed for HEMODIALYSIS Qty = 1 Comments: GIVEN WITH DIALYSIS Insulin Aspart (Novolog) 100 UNIT/ML CARTRIDGE 0 Inject into fatty tissue 3 TIMES DAILY BEFORE MEALS Qty = 2 Instructions: BEFORE MEALS... Blood Insulin Sugar Units <80 0 81-150 3 151-200 4 201-250 6 251-300 7 301-350 8 351-400 9 >400 10 Call Doctor Comments: NOT GIVEN IN HOSPITAL Start taking the following new medications: Oseltamivir Phosphate (Tamiflu) 30 MG CAPSULE 1 Tablet ORAL SEE INSTRUCTIONS Qty = 1 No Refills Instructions: Please take 1 pill on 11/26 after your hemodialysis treatment. Comments: Last Taken: 11/24/17 Time: 10:30 PM The following medications have been changed: Old: Hydroxyzine Hydrochloride (Atarax) 25 MG TAB 1 Tablet ORAL THREE TIMES DAILY as needed for ITCHING Qty = 10 New: Hydroxyzine Hydrochloride (Atarax) 25 MG TAB 1 Tablet ORAL THREE TIMES DAILY as needed for ITCHING Qty = 10 Instructions: ONLY 10 PILLS. Comments: Last Taken: 10/01/17 Time: 185 Old: Levothyroxine Sodium (Tirosint) 150 MCG CAPSULE 200 Microgram ORAL AT BEDTIME Qty = 30 New: Levothyroxine Sodium (Tirosint) 150 MCG CAPSULE 200 Microgram ORAL AT BEDTIME Qty = 30 Instructions: DO NOT REPLACE WITH GENERIC. Comments: Last Taken: 11/25/17 Time: 5:45 AM Copies To: Lakeisha Benedict DO Attending Review Statement Documenting Attending: Trevor Ibarra MD Other Findings: The patient was seen and discussed with house staff. Agree with the plan of care upon discharge.
== END 2017-11-25 11:10 | disposition home health service (06) | DRG 193 ==
LOC: ERH 13:35 → ERHI 19:09 → 1NO 19:09 → ENRESERV 20:56 → ENTRNSPT 21:41 → EDTRNSPT 21:55 → EDTRNSPTSTS 21:55 → 1NO 22:09 → CMPTRNSPT 22:19 → 1NO 11-23 22:58 → ENPENDDIS 11-25 10:44 → 1NO 11-25 11:10
PROVIDERS: Internal Medicine Nephrology; Physician Assistant; Student in an Organized Health Care Education/Training Program
PROC: 5A1D70Z Performance of Urinary Filtration, Intermittent, Less than 6 Hours Per Day (ICD-10-PCS; principal; 2017-11-23)
DX: J10.1 Influenza due to other identified influenza virus with other respiratory manifestations (principal); N18.6 End stage renal disease; I13.2 Hypertensive heart and chronic kidney disease with heart failure and with stage 5 chronic kidney disease, or end stage renal disease; E11.22 Type 2 diabetes mellitus with diabetic chronic kidney disease; E11.40 Type 2 diabetes mellitus with diabetic neuropathy, unspecified; I24.8 Other forms of acute ischemic heart disease; E83.39 Other disorders of phosphorus metabolism; J44.1 Chronic obstructive pulmonary disease with (acute) exacerbation; I50.32 Chronic diastolic (congestive) heart failure; E83.51 Hypocalcemia; E87.70 Fluid overload, unspecified; Z99.81 Dependence on supplemental oxygen; Z99.2 Dependence on renal dialysis; E03.9 Hypothyroidism, unspecified; E87.5 Hyperkalemia; I25.10 Atherosclerotic heart disease of native coronary artery without angina pectoris; Z09 Encounter for follow-up examination after completed treatment for conditions other than malignant neoplasm; Z95.5 Presence of coronary angioplasty implant and graft; F41.9 Anxiety disorder, unspecified; F32.9 Major depressive disorder, single episode, unspecified; Z87.891 Personal history of nicotine dependence
CPT/HCPCS: 1NP; 36415; 71045; 82436; 87804; 87804-59; 93005; 93010; 93306; 99232; 99291; J0636; J0780; J1644; J3250

== ENCOUNTER 2018-01-05 09:33 | Inpatient (IN) | payer OTHER, MEDICARE ==
[~2018-01-05] VITALS: Ht 177.8 cm; Wt 86.9 kg
[~2018-01-05 09:33] MED LIST changes: +TAMIFLU30 M1 PO
[2018-01-05] MEDS ORDERED: NITROGLYCERIN0.4 M1 SL (10:24)
[2018-01-05] MEDS ORDERED: HYDROCODON-ACE1 EAC2 PO (10:26)
[2018-01-05] MEDS ORDERED: LEVOTHYROXINE200 MC1 PO (10:30)
--- NOTE | 2018-01-05 11:29 | ULTRASOUND REPORT ---
EXAMINATION: US TRIPLEX OF LOWER EXTREMITIES, BILATERAL CLINICAL INFORMATION: Fall, pain. Swelling, redness in both lower extremities. COMPARISON: None TECHNIQUE: Color-flow triplex imaging with spectral analysis and compression Doppler were performed on the lower extremities. The exam is somewhat limited. The patient was moving throughout the exam and the exam was terminated early. FINDINGS: Respiratory variation, normal compression and augmented flow are noted throughout the lower extremities. The visualized common femoral vein, superficial femoral vein, profunda femoral vein, popliteal vein and midcalf peroneal and posterior tibial venous segments show no evidence of deep venous thrombosis. There are small bilateral Iyer's cysts. IMPRESSION: Normal triplex scan without evidence of deep venous thrombosis involving the lower extremities.
--- NOTE | 2018-01-05 11:34 | RADIOLOGY REPORT ---
EXAMINATION: CHEST X-RAY X-RAY PELVIS CLINICAL INFORMATION: Status post fall. Pain. COMPARISON: Chest x-ray most recent prior dated 04/12/2017 TECHNIQUE: AP upright chest and AP pelvis FINDINGS: CHEST: Interval removal of right-sided double-lumen internal jugular catheter. Cardiomegaly noted again. Moderate elevation of the right hemidiaphragm appears slightly more prominent on the current examination. Left lung is clear. Atelectatic changes noted in the right base. Trace right effusion suspected. Bony thorax is intact. Left-sided vascular stent noted in the subclavian. PELVIS Mild bony osteopenia. No gross plain radiographic evidence of acute fracture or dislocation. Femoral heads maintain normal round contour. SI joints appear symmetric. Vascular calcification is noted. Degenerative changes bilateral hips, and lower lumbar spine. IMPRESSION: 1. Slight interval increase elevation of the right hemidiaphragm. Small right effusion. Right basilar atelectasis. 2. No acute osseous abnormality appreciated in the chest or pelvis.
--- NOTE | 2018-01-05 11:40 | RADIOLOGY REPORT ---
EXAMINATION: XR KNEE, RIGHT XR KNEE, LEFT CLINICAL INFORMATION: Fall with bilateral knee pain for 2 weeks. COMPARISON: None TECHNIQUE: AP, bilateral oblique, and crosstable lateral views (5 images on the right, 4 images on the left) of each knee are obtained. FINDINGS: RIGHT KNEE: There is no fracture, malalignment, or definite joint effusion. There is chondrocalcinosis. There is no apparent joint space narrowing. There are extensive arterial calcifications. LEFT KNEE: There is a lateral plate and multiple screws transfixing the proximal tibia. There is no acute fracture, malalignment, or joint effusion. There are is chondrocalcinosis. There are small marginal osteophytes of the patella. There is no apparent joint space narrowing. There are extensive arterial calcifications. IMPRESSION: 1. RIGHT KNEE: Chondrocalcinosis. No evidence of acute injury. 2. LEFT KNEE: Chondrocalcinosis. Minor spurring of the patella. No evidence of acute injury.
[2018-01-05 11:46] LABS: ABSOLUTE BASOPHIL COUNT 0 /CUMM (0.0-0.2); ABSOLUTE EOSINOPHIL COUNT 0 /CUMM (0.0-0.7); ABSOLUTE GRANULOCYTE CT 8.6 /CUMM (1.4-6.5); ABSOLUTE LYMPH COUNT 0.3 /CUMM (1.2-3.4); ABSOLUTE MONOCYTE COUNT 0.5 /CUMM (0.10-0.60); BASOPHIL % 0.3 % (0.0-2.0); EOSINOPHIL % 0 % (0-5); MEAN CORPUSCULAR HGB CONC 33.4 G/DL (33.0-37.0); MEAN CORPUSCULAR VOLUME 89.9 FL (80.0-94.0); MEAN PLATELET VOLUME 8.3 FL (7.4-10.4); PLATELET COUNT 181 /CUMM (130-400); RBC DISTRIBUTION WIDTH 18.2 % (11.5-14.5); RED BLOOD CELL CT 4.12 /CUMM (4.70-6.10); WHITE BLOOD CELL COUNT 9.5 /CUMM (4.8-10.8)
--- NOTE | 2018-01-05 14:08 | ED GENERAL ADULT ---
History of Present Illness General Chief Complaint: Lower Extremity Problems Stated Complaint: KNEE PAIN Source: patient, old records Exam Limitations: no limitations Allergies Coded Allergies: morphine (Mild, LOOPY 01/18/17) hydromorphone (DEPRESSED RESPIRATIONS 01/18/17) Reconcile Medications Alprazolam (Xanax) 0.5 MG TABLET 1 TAB PO BID PRN ANXIETY Aspirin (Ecotrin*) 81 MG TABLET.DR 1 TAB PO DAILY HEART HEALTH (Reported) Calcium Acetate 667 MG CAPSULE 2 CAP PO TID UNKNOWN (Reported) Clopidogrel Bisulfate (Plavix) 75 MG TABLET 75 MG PO DAILY ANTIPLATELET Folic Acid 1 MG TABLET 1 TAB PO DAILY SUPPLEMENT (Reported) Furosemide (Lasix) 80 MG TABLET 1 TAB PO DAILY WATER RETENTION (Reported) Hydrocodone/Acetaminophen (Hydrocodon-Acetaminophen 5-325) 5 MG-325 MG TABLET 1 TAB PO Q8 PRN PAIN (Reported) Hydroxyzine Hydrochloride (Atarax) 25 MG TAB 1 TAB PO TID PRN ITCHING ONLY 10 PILLS. Insulin Aspart (Novolog) 100 UNIT/ML CARTRIDGE 0 SC TIDAC DIABETES BEFORE MEALS... Blood Insulin Sugar Units <80 0 81-150 3 151-200 4 201-250 6 251-300 7 301-350 8 351-400 9 >400 10 Call Doctor Isosorbide Mononitrate (Isosorbide Mononitrate ER) 60 MG TAB.ER.24H 1 TAB PO DAILY CAD Levothyroxine Sodium 200 MCG TABLET 1 TAB PO DAILY AC THYROID (Reported) Losartan Potassium 50 MG TABLET 50 MG PO DAILY high BP Metoprolol Succinate 25 MG TAB 1 TAB PO DAILY HEART (Reported) Nitroglycerin 0.4 MG TAB.SUBL 1 TAB SL DAILY PRN CHEST PAIN (Reported) 1st sign of attack; may repeat every 5 minutes until relief; if pain persists after 3 tablets in 15 minutes, prompt medical att Ramelteon (Rozerem) 8 MG TABLET 1 TAB PO AT BEDTIME SLEEP HELP Sertraline HCl (Zoloft) 100 MG TABLET 1.5 TAB PO DAILY ANXIETY (Reported) Sevelamer Carbonate (Renvela) 800 MG TABLET 2 TAB PO TIDAC ERSD (Reported) Trazodone HCl 150 MG TABLET 1 TAB PO QPM SLEEP (Reported) Triage Note: BIBA FROM HOME, REPORTING CHRONIC BLE PAIN, BACK PAIN AND GENERALIZED PAIN. PATIENT IS ALERT, ORIENTED, SPEECH CLEAR. PATIENT STATES HE IS SCHEDULED TO GO TO DIALYSIS TODAY BUT DUE TO HIS PAIN HE NEEDED TO COME IN TO BE EVALUATED. PATIENT TRASNFERRED ONTO STRETCHER AND BROUGHT INTO ROOM 7. PATIENT HAS MULTIPLE WOUNDS TO EXTREMTIES, BILATERAL KNEES ARE RED, WARM TO THE TOUCH, AND TENDER. PATIENT CHANGED INTO HOSPITAL GOWN. AWAITING PROVIDER EVAL. WILL CONTINUE TO MONITOR. Triage Nurses Notes Reviewed? yes Onset: Abrupt Duration: day(s):, constant, getting worse Timing: recent history Injury Environment: home No Modifying Factors: none HPI: 68-year-old male comes into the emergency room for further evaluation of generalized pain everywhere. Patient is a dialysis patient. Due at dialysis today around 2 PM. He reports that he fell a couple weeks ago. He is been unable to ambulate for the last couple days. He saw his vascular surgeon yesterday Dr. Rodrigeuz. He was told that he needs to get surgery and is due to get an angiogram next week done of his lower extremities. He had a CAT scan of his head and neck done after the fall which was negative. Reports severe pain to his knees bilaterally. Denies any chest pain shortness of breath abdominal pain. Some intermittent vomiting. (Delfin VARGAS,David) Vital Signs & Intake/Output Vital Signs & Intake/Output Vital Signs Date Time Temp Pulse Resp B/P B/P Pulse O2 O2 Flow FiO2 Mean Ox Delivery Rate 01/05 1412 98 22 97/51 99 Room Air 01/05 1345 98.8 90 20 80/46 94 Room Air 01/05 1242 90 72/44 01/05 1145 98.3 92 20 72/44 93 Room Air 01/05 0946 98.5 100 15 97/52 96 Room Air Room Air (Obed ELDRIDGE,Manuel Jade) Past History Travel History Traveled to [place] past 21 day No Medical History Any Pertinent Medical History? see below for history Neurological: proximal muscle pain & weakness UE/LE B/L EENT: NONE Cardiovascular: CAD, hypertension, hyperlipidemia, PVD, 6 CARDIAC STENTS Respiratory: NONE (on O2-2L), COPD Gastrointestinal: hx colon polyps Hepatic: cholelithiasis (vs. 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 FH: heart disease MOTHER, , Age 85; Cause: ASHD (arteriosclerotic heart disease). Relation not specified for: FH: diabetes mellitus FH: hypertension Hx Contributory? No (David Barraza) Review of Systems Review of Systems Constitutional: Reports: see HPI. EENTM: Reports: no symptoms. Respiratory: Reports: no symptoms. Cardiovascular: Reports: no symptoms. GI: Reports: no symptoms. Genitourinary: Reports: no symptoms. Musculoskeletal: Reports: see HPI. Skin: Reports: no symptoms. Neurological/Psychological: Reports: no symptoms. Hematologic/Endocrine: Reports: no symptoms. Immunologic/Allergic: Reports: no symptoms. All Other Systems: Reviewed and Negative (David Barraza) Physical Exam Physical Exam General Appearance: alert, awake Head: ecchymosis Eyes: Bilateral: normal appearance. Ears, Nose, Throat: hearing grossly normal Neck: normal inspection Respiratory: normal breath sounds, no respiratory distress Cardiovascular: regular rate/rhythm Gastrointestinal: soft, non-tender Extremities: SOME SHINY ERYTHEMA TO LEGS AND FEET BILATERALLY, CAP REFILL INTACT , NO WARMTH, SOME SCABBING OF SKIN, Neurologic/Psych: awake, alert Skin: intact, normal color Core Measures ACS in differential dx? No CVA/TIA Diagnosis: No Sepsis Present: No Sepsis Focused Exam Completed? No (David Barraza) Progress Differential Diagnoses I considered the following diagnoses in my evaluation of the patient: Cellulitis, peripheral vascular disease, sepsis, dehydration, pneumonia, Plan of Care: Orders Procedure Date/time Status MAGNESIUM 01/06 0600 Active CALCIUM 01/06 0600 Active BASIC ELECTROLYTES PLUS BUN&CR 01/06 06 Active TROPONIN LEVEL 01/06 0400 Active EKG 01/06 0400 Active WESTERGREN SED RATE 01/05 UNK Complete Renal Dialysis Diet 01/05 D Active TROPONIN LEVEL 01/05 2000 Active EKG 01/06 2000 Active PHOSPHORUS 01/05 1919 Active MAGNESIUM 01/05 1919 Active CALCIUM 01/05 1919 Active BASIC ELECTROLYTES PLUS BUN&CR 01/05 1919 Active Hemo-Dialysis 01/05 1816 Active Weight 01/05 1815 Active Vital Signs 01/05 1815 Active Teach/Educate 01/05 181 Active Pain Treatment and Response 01/05 181 Active Nutritional Intake, Monitor 01/05 181 Active Isolation 01/05 181 Active Intake & Output 01/05 181 Active Patient Care Conference 01/05 181 Active Activity/Ambulation 01/05 181 Active EKG 01/05 1652 Active PT Evaluate & Treat 01/05 1546 Active Pathway - chart 01/05 1546 Active House Staff 01/05 1546 Active Weight 01/05 1546 Active Vital Signs 01/05 1546 Complete Intake & Output 01/05 1546 Complete PHOSPHORUS 01/05 1546 Active CBC WITHOUT DIFFERENTIAL 01/05 1546 Active BASIC ELECTROLYTES PLUS BUN&CR 01/05 1546 Active CASE MANAGEMENT CONSULT 01/05 1546 Active Code Status 01/05 1546 Active MAGNESIUM 01/05 1543 Complete LIPASE 01/05 1543 Complete AMYLASE 01/05 1543 Complete Intake & Output 01/05 1523 Complete Lab Add-on Test 01/05 1504 Active Patient Data 01/05 1434 Active ED Holding Orders 01/05 1415 Active Admit to inpatient 01/05 1415 Active Vital Signs 01/05 1415 Active Code Status 01/05 1415 Complete Add-on Test (ER Only) 01/05 1343 Active BLOOD CULTURE 01/05 1127 Active TROPONIN LEVEL 01/05 1122 Complete PHOSPHORUS 01/05 1122 Complete C-REACTIVE PROTEIN 01/05 1007 Complete COMPREHENSIVE METABOLIC PANEL 01/05 1007 Complete CBC WITHOUT DIFFERENTIAL 01/05 1007 Complete EKG 01/05 1007 Active Weight 01/05 UNK Active VTE Mechanical Prophylaxis 01/05 UNK Active Hemoccult 01/05 UNK Active FingerStick- Glucose 01/05 UNK Active Activity/Ambulation 01/05 UNK Complete Current Medications Sig/Julissa Start time Last Medication Dose Stop Time Status Admin Aspirin Buffered 81 MG DAILY 01/06 1000 AC (Ecotrin) Clopidogrel Bisulfate 75 MG DAILY 01/06 1000 AC (Plavix) Folic Acid 1 MG DAILY 01/06 1000 AC (Folic Acid) Sertraline HCl 150 MG DAILY 01/06 1000 AC (Zoloft) Levothyroxine Sodium 0.2 MG DAILY AC 01/06 0700 AC (Synthroid) Calcium Acetate 1,334 MG TID 01/05 2200 AC (PhosLo) Heparin Sodium 5,000 UNIT Q8 01/05 220 AC (Porcine) Ramelteon 8 MG AT BEDTIME 01/05 220 AC (Rozerem) Trazodone HCl 150 MG QPM 01/05 220 AC (Desyrel) Ondansetron HCl 4 MG ONCE ONE 01/05 1930 AC (Zofran) 01/05 193 Alprazolam 0.5 MG BID PRN 01/05 1700 AC (Xanax) 01/12 165 Sevelamer Carbonate 1,600 MG TIDAC 01/05 1700 AC (Renvela) Epoetin [place] 4,000 UNIT TuThSa PRN 01/05 1445 AC (Epogen Inj 4000 (DIALYSIS PATIENT)) Laboratory Tests 01/05/18 1450: Magnesium 1.5 L, Amylase < 30 L, Lipase 37 01/05/18 1140: ESR Westergren 20 H 01/05/18 1122: Anion Gap 22 H, Estimated GFR 10 L, BUN/Creatinine Ratio 10.2, Glucose 196 H, Calcium 7.4 L, Phosphorus 6.4 H, Total Bilirubin 3.4 H, AST 29, ALT 35, Alkaline Phosphatase 431 H, Troponin I 0.17 *H, C-Reactive Prot, Quant 3.6 H, Total Protein 6.3, Albumin 3.5, Globulin 2.8, Albumin/Globulin Ratio 1.3, CBC w Diff NO MAN DIFF REQ, RBC 4.12 L, MCV 89.9, MCH 30.0, MCHC 33.4, RDW 18.2 H, MPV 8.3, Gran % 91.0 H, Lymphocytes % 3.4 L, Monocytes % 5.3, Eosinophils % 0, Basophils % 0.3, Absolute Granulocytes 8.6 H, Absolute Lymphocytes 0.3 L, Absolute Monocytes 0.5, Absolute Eosinophils 0, Absolute Basophils 0 Microbiology 01/05 1140 BLOOD: Blood Culture - RECD 01/05 1126 BLOOD: Blood Culture - RECD Diagnostic Imaging: Viewed by Me: CT Scan. Discussed w/RAD: CT Scan. Radiology Impression: PATIENT: DEEPIKA BRANDT PRESENT AGE: 68 PATIENT ACCOUNT NO: [id number] : 52 LOCATION: [facility] [place] ORDERING PHYSICIAN: David VARGAS SERVICE DATE: 01/05/182927 EXAM TYPE : CAT - CT ABD & PELVIS W/O IV CONTRAS; CT CHEST WO IV CONTRAST EXAMINATION: CT ABDOMEN AND PELVIS WITHOUT CONTRAST CT CHEST WITHOUT CONTRAST CLINICAL INFORMATION: Hypotensive. Fall. COMPARISON: CT abdomen pelvis dated 10/11/2017. CT chest dated 03/31/2017. TECHNIQUE: Multidetector volumetric imaging was performed through the chest, abdomen and pelvis. Sagittal and coronal reformatted images were obtained on the technologist's workstation. DLP: 619.35 mGy-cm FINDINGS: There are small bilateral pleural effusions, right side greater than left. There is right middle lobe atelectasis similar to the previous exam. No consolidative process. The heart is normal in size. There is no pericardial effusion. There are dense coronary artery calcifications. No mediastinal or hilar adenopathy. No axillary adenopathy. The thoracic aorta is normal in caliber. Main pulmonary artery is normal in caliber. The liver is normal in size and attenuation. The gallbladder is physiologically distended. The spleen is normal in size and attenuation. The pancreas is grossly normal in size and attenuation. There is no adrenal gland nodule. Both kidneys are somewhat diminutive in size. The right kidney contains several low-attenuation lesions, likely representing cysts. Additionally, there is a heterogeneous, mixed attenuation lesion arising from the upper pole measuring 3.6 cm. There is dense vascular calcification throughout the right kidney. There are dense vascular calcification throughout the left kidney. There are several low-attenuation lesions within the left kidney the largest measuring up to 3 cm, consistent with a simple cyst. There is no hydronephrosis. There is a moderate amount of abdominal ascites. The urinary bladder is unremarkable. The prostate gland is enlarged. There is no evidence of bowel obstruction. There is a large volume of pelvic ascites. No abdominal or pelvic lymphadenopathy. The subcutaneous low- attenuation focus superior to the left buttock is decreased in size, currently measuring 3.4 cm, previously measuring 4.6 cm. There are degenerative changes throughout the thoracolumbar spine. Neither sclerotic nor lytic bone lesions are identified. IMPRESSION: 1. Small bilateral pleural effusions, right greater than left. 2. Right middle lobe atelectasis, similar to the previous examination. 3. Large volume of abdominal and pelvic ascites. This is new when compared with the prior study. 4. No evidence of bowel obstruction. 5. Exophytic mass arising from the upper pole of the right kidney. DICTATED BY: Anil Anderson MD DATE/TIME DICTATED:01/05/181429 DUPLICATING MACHINE SERVICER:SAVANA DATE/TIME TRANSCRIBED:1429 CONFIDENTIAL, DO NOT COPY WITHOUT APPROPRIATE AUTHORIZATION. < Electronically signed in Other Vendor System> SIGNED BY: Anil Anderson MD 01/05/181599 Initial ED EKG: normal sinus rhythm, rate (95) (David Barraza) Departure Departure Disposition: STILL A PATIENT Condition: Stable Clinical Impression Primary Impression: Hypotension Secondary Impressions: Multifactorial gait disorder, Vomiting Referrals: Lakeisha Benedict DO (PCP/Family) Departure Forms: Customer Survey General Discharge Information (David Barraza) Admission Note Spoke With: Dalton ELDRIDGE,Leatha Documentation of Exam: Documentation of any treatments & extenuating circumstances including Concerns Regarding Discharge (functional status, medication knowledge or non-compliance, living conditions, etc.) that warrant an admission rather than observation: [ DIALYSIS, VASCULAR CONSULT, PT CONSULT, CARDIOLOGY CONSULT, PT IS UNABABLE TO AMBULATE] PA/ANODISER Co-Sign Statement Statement: ED Attending supervision documentation- [X] I saw and evaluated the patient. I have also reviewed all the pertinent lab results and diagnostic results. I agree with the findings and the plan of care as documented in the PA's/ANODISER's documentation. [X] I have reviewed the ED Record and agree with the PA's/ANODISER's documentation. [] Additions or exceptions (if any) to the PAs/ANODISER's note and plan are summarized below: [] (Obed ELDRIDGE,Manuel Jade) Critical Care Note Critical Care Note Critical Care Time: 30-74 min (45) (David Barraza)
--- NOTE | 2018-01-05 14:57 | History & Physical ---
Trina Mayes 01/05/18 1449: General Information and HPI MD Statement: I have seen and personally examined DEEPIKA BRANDT and documented this H&P. The patient is a 68 year old M who presented with a patient stated chief complaint of [BLE pain]. Source of Information: patient Exam Limitations: no limitations History of Present Illness: Mr. Brandt is a 68-year-old male with PMH of CAD S/P 6 stents, COPD on home oxygen 2 L, ESRD on HD with left arm aVF, hypertension, hyperlipidemia, PVD, chronic back pain, diabetes, thyroid cancer status post thyroidectomy, chronic BUE BLE muscle pain/weakness, CBP, anxiety/depression, presented to ER with chief complaint of generalized pain over the body, and inability to ambulate due to the right knee pain. Patient reported pain in his bilateral knees, and a mechanical for 2 weeks ago, however now the pain is mostly in his right knee, and inability to bend or move without being painful, is feeling of sharp knife stabbing pain 7-8/10, no radiations, and denies fever/chills. Patient also reported multiple chronic pulses especially on his bilateral upper and lower extremities. Due to the knee pain, patient was unable to make to dialysis today and presented to the ER for further evaluation. Patient denies any loss of consciousness/chest pain/palpitations/dyspnea/pedal edema. Patient was supposed to get angiogram for evaluation of peripheral vascular disease by Dr. Rodriguez. Dr. Rodriguez was contacted over the phone, and confirmed up appointment to be around 01/13/2018. Allergies/Medications Allergies: Coded Allergies: morphine (Mild, LOOPY 01/18/17) hydromorphone (DEPRESSED RESPIRATIONS 01/18/17) Home Med list Alprazolam (Xanax) 0.5 MG TABLET 1 TAB PO BID PRN ANXIETY Aspirin (Ecotrin*) 81 MG TABLET. 1 TAB PO DAILY HEART HEALTH (Reported) Calcium Acetate 667 MG CAPSULE 2 CAP PO TID UNKNOWN (Reported) Clopidogrel Bisulfate (Plavix) 75 MG TABLET 75 MG PO DAILY ANTIPLATELET Folic Acid 1 MG TABLET 1 TAB PO DAILY SUPPLEMENT (Reported) Furosemide (Lasix) 80 MG TABLET 1 TAB PO DAILY WATER RETENTION (Reported) Hydrocodone/Acetaminophen (Hydrocodon-Acetaminophen 5-325) 5 MG-325 MG TABLET 1 TAB PO Q8 PRN PAIN (Reported) Hydroxyzine Hydrochloride (Atarax) 25 MG TAB 1 TAB PO TID PRN ITCHING ONLY 10 PILLS. Insulin Aspart (Novolog) 100 UNIT/ML CARTRIDGE 0 SC TIDAC DIABETES BEFORE MEALS... Blood Insulin Sugar Units <80 0 81-150 3 151-200 4 201-250 6 251-300 7 301-350 8 351-400 9 >400 10 Call Doctor Isosorbide Mononitrate (Isosorbide Mononitrate ER) 60 MG TAB.ER.24H 1 TAB PO DAILY CAD Levothyroxine Sodium 200 MCG TABLET 1 TAB PO DAILY AC THYROID (Reported) Losartan Potassium 50 MG TABLET 50 MG PO DAILY high BP Metoprolol Succinate 25 MG TAB 1 TAB PO DAILY HEART (Reported) Nitroglycerin 0.4 MG TAB.SUBL 1 TAB SL DAILY PRN CHEST PAIN (Reported) 1st sign of attack; may repeat every 5 minutes until relief; if pain persists after 3 tablets in 15 minutes, prompt medical att Ramelteon (Rozerem) 8 MG TABLET 1 TAB PO AT BEDTIME SLEEP HELP Sertraline HCl (Zoloft) 100 MG TABLET 1.5 TAB PO DAILY ANXIETY (Reported) Sevelamer Carbonate (Renvela) 800 MG TABLET 2 TAB PO TIDAC ERSD (Reported) Trazodone HCl 150 MG TABLET 1 TAB PO QPM SLEEP (Reported) Past History Travel History Traveled to [place] past 21 day No Medical History Neurological: proximal muscle pain & weakness UE/LE B/L EENT: NONE Cardiovascular: CAD, hypertension, hyperlipidemia, PVD, 6 CARDIAC STENTS Respiratory: NONE (on O2-2L), COPD Gastrointestinal: hx colon polyps Hepatic: cholelithiasis (vs. 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 FH: heart disease MOTHER, , Age 85; Cause: ASHD (arteriosclerotic heart disease). Relation not specified for: FH: diabetes mellitus FH: hypertension Psychosocial History Who Do You Live With? girlfriend Services at Home: Home Health Aide, Nursing, Oxygen, Physical Therapy Primary Language: Luxembourgish Smoking Status: Former Smoker (quit>5yrs) ETOH Use: heavy use, quitted 25 years ago Illicit Drug Use: denies illicit drug use Living Will? no Power of Disk Sharpener/HCP? no Functional Ability ADLs Independent: dressing, eating, toileting, bathing. Ambulation: independent (and/or rolling walker), cane IADLs Independent: shopping, housework, finances, food prep, telephone, transportation , medication admin. Review of Systems Review of Systems Constitutional: Reports: see HPI. Exam & Diagnostic Data Last 24 Hrs of Vital Signs/I&O Vital Signs Date Time Temp Pulse Resp B/P B/P Pulse O2 O2 Flow FiO2 Mean Ox Delivery Rate 01/05 1412 98 22 97/51 99 Room Air 01/05 1345 98.8 90 20 80/46 94 Room Air 01/05 1242 90 72/44 01/05 1145 98.3 92 20 72/44 93 Room Air 01/05 0946 98.5 100 15 97/52 96 Room Air Room Air Intake & Output 01/05 1600 01/05 0800 01/05 0000 Intake Total Output Total Balance Patient 77.111 kg Weight Weight Reported by Patient Measurement Method Physical Exam General Appearance Alert, Oriented X3, Cooperative, Mild Distress Skin Healing ulcers on BUE/BLE with ecchymosis Skin Temp/Moisture Exam: Cool/Dry Sepsis Skin Exam (color): Normal for Ethnicity ADRIÁN LAWRENCE, healing wound on left eyebrow from fall 2 weeks ago. Neck Supple, No JVD Cardiovascular Regular Rate Lungs Clear to Auscultation, Normal Air Movement Abdomen Normal Bowel Sounds, Soft, mild tenderness on palpation in mid ab Neurological Normal Speech Extremities BLE healing ulcers on cardenas, and heals, and feet BL knees cool to touch, however R knee very tender to touch, without signs of swelling, limited ROM, no elevation of skin temp, bony walden available. Last 24 Hrs of Labs/Angus: Laboratory Tests 01/05/18 1140: ESR Westergren 20 H 01/05/18 1122: Anion Gap 22 H, Estimated GFR 10 L, BUN/Creatinine Ratio 10.2, Glucose 196 H, Calcium 7.4 L, Total Bilirubin 3.4 H, AST 29, ALT 35, Alkaline Phosphatase 431 H, Troponin I 0.17 *H, C-Reactive Prot, Quant 3.6 H, Total Protein 6.3, Albumin 3.5, Globulin 2.8, Albumin/Globulin Ratio 1.3, CBC w Diff NO MAN DIFF REQ, RBC 4.12 L, MCV 89.9, MCH 30.0, MCHC 33.4, RDW 18.2 H, MPV 8.3, Gran % 91.0 H, Lymphocytes % 3.4 L, Monocytes % 5.3, Eosinophils % 0, Basophils % 0.3 , Absolute Granulocytes 8.6 H, Absolute Lymphocytes 0.3 L, Absolute Monocytes 0.5, Absolute Eosinophils 0, Absolute Basophils 0 Microbiology 01/05 1140 BLOOD: Blood Culture - RECD 01/05 1126 BLOOD: Blood Culture - RECD Assessment/Plan Assessment: Mr. Brandt is a 68-year-old male with PMH of CAD S/P 6 stents, COPD on home oxygen 2 L, ESRD on HD with left arm aVF, hypertension, hyperlipidemia, PVD, chronic back pain, diabetes, thyroid cancer status post thyroidectomy, chronic BUE BLE muscle pain/weakness, CBP, anxiety/depression, presented to ER with chief complaint of generalized pain over the body, and inability to ambulate due to the right knee pain. Patient reported pain in his bilateral knees, and a mechanical for 2 weeks ago, however now the pain is mostly in his right knee, and inability to bend or move without being painful, is feeling of sharp knife stabbing pain 7-8/10, no radiations, and denies fever/chills. Patient also reported multiple chronic pulses especially on his bilateral upper and lower extremities. Due to the knee pain, patient was unable to make to dialysis today and presented to the ER for further evaluation. Patient denies any loss of consciousness/chest pain/palpitations/dyspnea/pedal edema. Patient was supposed to get angiogram for evaluation of peripheral vascular disease by Dr. Rodriguez. Dr. Rodriguez was contacted over the phone, and confirmed up appointment to be around 01/13/2018. On admission, Vitals: Afebrile BP 70s-90s/40s-50s, HR 90s, satting 99% on room air -CBC: WBC 9.5 (91% granulocytes), H/H 12.4/47.0 (anemia of chronic disease), PLT 181, -BMP: NA 144, K5.1, BUN 57, CR 5.6 (ESRD), EGFR 10, glucose 196, CA 7.4, bicarb 19 (metabolic acidosis) -Misc: ALK P 41, troponin 1 0.17, CRP 3.6, ESR 20, -CXR: 1. Slight interval increase elevation of the right hemidiaphragm. Small right effusion. Right basilar atelectasis. 2. No acute osseous abnormality appreciated in the chest or pelvis. -Knee Xray: 1. RIGHT KNEE: Chondrocalcinosis. No evidence of acute injury. 2. LEFT KNEE: Chondrocalcinosis. Minor spurring of the patella. No evidence of acute injury. -Pelvis XR: 1. Slight interval increase elevation of the right hemidiaphragm. Small right effusion. Right basilar atelectasis. 2. No acute osseous abnormality appreciated in the chest or pelvis. -BLE V-doppler: Negative for DVT -EKG: Pending. -Interventions in ER: IVF 2.5 L bolus, Zofran, Tylenol, Epogen 4000 units IV Tuesday scheduled. Assessment: Patient's clinical picture represented need of immediate dialysis to correct electrolyte this disturbance, and would warrant further cardiac evaluation of his elevated troponin, however likely secondary to type II AR pending rule out other causes. Problem list #Elevated Trop, likely type II AR #R knee pain #Chronic chest discomfort #ESRD on HD #Hypocalcemia #PVD pending angiogram #PMH of CAD S/P 6 stents, hypertension, hyperlipidemia, PVD, chronic back pain, diabetes, thyroid cance status post thyroidectomy, CBP, anxiety/depression Plan - Admit to telemetry 2018 DVT prophylaxis ALPS Dialysis diet Full Code As Ranked By This Provider Problem List: 1. Diabetes mellitus 2. Muscle pain 3. Elevated troponin 4. ESRD (end stage renal disease) on dialysis Core Measures/Misc (06/26) Acute Coronary Syndrome ACS Diagnosis: No Congestive Heart Failure Congestive Heart Failure Diagnosis No Cerebrovascular Accident CVA/TIA Diagnosis: No VTE (View Protocol) VTE Risk Factors Age>40 No Mechanical VTE Prophylaxis d/t N/A MechProphylax Ordered No VTE Pharm Prophylaxis d/t Medical Contraindication Sepsis (View protocol) Sepsis Present: No Neymar Burr 01/05/18 1502: Resident Review Statement Resident Statement: agreed with internal salesperson, amended to note Other Findings: Mr Melendez is a 67-year-old gentleman w/ a PMHx of CAD s/p 6 stents (10/26,on DAPT) COPD, T2DM, MILES, HFrEF and ESRD on HD(Tuesday//Tuesday-AV fistula left upper extremity), chronic hypoxic respiratory failure on 2 L oxygen ( nocturnal as needed) , COPD, thyroid cancer status post thyroidectomy, staph coag negative Bao cath infection, multiple admits to [facility] for atypical chest pain and elevated troponins came into the hospital with a chief concern of generalized pain all over the body, and inability to ambulate. Reported a pain in his bilateral knees R > L and mechanical fall a few weeks ago with no head injury, but reported a wound on his right side of the face. Reported severe pain in his right knee, and inability to bend his knee- sharp pain 7/10, with no radiation. Also reported inability to ambulate due to worsening pain in his lower extermities upon ambulation thus limiting his movement. Also has new ulcers on the leg bilaterally, which he noticed them last week. No pain associated w/ ulcers, or discharge. No fever, or chills. Reported multiple ulcers on the alexia lower extemity. No loss of consciousness, chest pain, palpitations, dyspnea, pedal edema. Also due for his hemodialysis on 01/05/2018 at 2 PM, and was taken to the HD suite immediately from the ER. As per the pt, she was supposed to get angiogram for evaluation of peripheral vascular disease by Dr. Rodriguez on 01/06/18 as an outpatient. At the time of admission-vitals 98.5, pulse rate 100, respiration 50, blood pressure 97/52, pulse ox 96% on room air. General Exam: AAOx3, mild distres due to pain, Skin: No rashes, multiple ulcers on the plantar surface b/l feet, toes 1-2 cmx 1 cm wounds, no discharge, associated w/ dark eschar, mild erythematous;HEENT: PERRLA, EOMI;Neck: Supple, No JVD, No cervical lymphadenopathy; CVS: Reg Rate, Normal S1,S2, Systolic murmur. pulses reduced b/l dorsalis pedis artery and tibialis posterior; Resp: Normal air entry, no ronchi/rales;Abdomen: Soft, No tenderness, distended, Normal Bowel Sounds;Neuro: Normal Speech, Strength 5/5 b/l x 4 extremities, Sensation intact, CN III-XII NL, Reflexes 2+;Extremities: No cyanosis, 1 + pedal edema, right knee, non erythematous, tender +, no warmth or swelling with knee joint restriction. Pertinent lab findings: WBC 9.5 (91% granulocytosis), hemoglobin 12.4 (anemia of chronic disease), hematocrit 37, platelet count 181. Sodium 134, potassium 5.1, chloride 93, bicarb 19 (metabolic acidosis), anion gap 22, BUN 57, creatinine 5.6 (history of end-stage renal disease), glucose 186. Calcium 7.4, albumin 3.5 (likely due to secondary hyperparathyroidism), total bilirubin 3.4 AST 29, ALT 35, alkaline phosphatase 431 ( likely osteodystrophy ). Cardiac enzymes-troponin I 0.17 Echo that was done in 11/2017 revealed moderately abnormal left ventricular ejection fraction estimated at 30-35%. Right ventricular systolic pressure estimated to be elevated at 46 mmHg. Eioy-oe-xumdwjpo aortic sclerosis is present with minimal aortic insufficiency. Mitral leaflet thickening is present with mild annular calcification and mild to moderate mitral insufficiency with moderate left atrial enlargement. There is global hypokinesia present which is worse in the distal septum and anteroapical segments which are markedly hypokinetic to akinetic. EKG revealed NSR, left axis deviation, left anterior physical or block, first- degree AV block, no ST-T wave changes noted. Chest x-ray-1. Slight interval increase elevation of the right hemidiaphragm. Small right effusion. Right basilar atelectasis. Knee x-ray- Rt knee- Chondrocalcinosis. No evidence of acute injury. Venous Doppler bilateral lower extremities. Lt knee- Chondrocalcinosis. Minor spurring of the patella. No evidence of acute injury. Bilateral lower extremity Dopplers -venous negative for DVT. CT abdomen and pelvis, chest revealed small bilateral pleural effusion, right greater than left. Right middle lobe atelectasis. Large volume abdominal and pelvic ascites. An exophytic mass arising from the upper pole of right kidney. Etiology in this case is likely due to deconditioning, and end-stage renal disease thus resulting in fluid overload. Elevation of troponin could be explained by end-stage renal disease. He has history of severe electrolyte abnormalities, particularly hypophosphatemia which could be contributing to his symptoms. In regards to ulcers, they appear to be due to peripheral arterial disease. Calciphylaxis is in the differential. Problem list: #1 elevated troponin, type II AR #2 generalized body aches #3 Hypocalcemia, hyperphosphatemia #4 diabetes #5 peripheral artery disease #6 hypotension #7 anemia-anemia of chronic disease #8 volume overload #9 elevated bilirubin #10 end-stage renal disease on hemodialysis. #11 anion gap metabolic acidosis #12 history of hypothyroidism Problem: -Patient should be monitored on telemetry given elevated cardiac enzymes -Serial electrocardiograms, cardiac enzymes every 8 hourly until they peak. -Hemodialysis as per schedule -Daily BEP -Continue insulin sliding scale, Accu-Cheks -Hold antihypertensives for now. -Aspirin 325. Continue aspirin and Plavix -hold off on intravenous heparin. -Check phosphorus. Hold Renvela if it's very low. -Vascular, cardiology and nephrology consult. -Hold insulin for now. -Patient's electrocardiograms have been misplaced at the time of admission. Reorder EKGs for evaluation. -Cardiology consult Dr. Lee. -Intravenous IV heparin after conferring with the rubbing bed operator. -Daily ins and outs -Daily weights -Continue calcium as stated for now. -Workup of peripheral arterial disease as per vascular. As of now, there is no urgency. The patient objects any signs of ischemia, vascular needs to be consulted stat. Housekeeping: #1 DVT prophylaxis-subcutaneous heparin #2 pain management-Vicodin #3 renal diet #4 Code status-full code. Ashleigh ELDRIDGE,Patricia 01/05/181931: Attending Review Statement Attending Statement Attending Statement: examined this patient, discuss w/resident/PA/WATER REGULATOR AND VALVE REPAIRER, agreed w/resident/PA/WATER REGULATOR AND VALVE REPAIRER, reviewed EMR data (avail), reviewed images Attending Assessment/Plan: Patient seen and examined. Plan of care discussed with the medical team and the patient. Available lab work and radiology test reports were reviewed. This is a 68-year-old male with PMH of CAD S/P 6 stents, COPD on home oxygen 2 L, ESRD on HD with left arm aVF, hypertension, hyperlipidemia, PVD, chronic back pain, diabetes, thyroid cancer status post thyroidectomy who presents with generalized pain more pronounced lower extremities. Patient also recently had a fall. He at home has been taking Vicodin. He is undergoing VAS surgery evaluation and their plans for angiography of lower extremities next Tuesday. Patient missed his dialysis today. Exam: General: Patient awake alert oriented with moderate distress due to pain CVS: S1 plus S2 without any murmur or gallops Chest: Few scattered crepitation without any wheeze. There is no respiratory distress. Abdomen: Soft non-tender, signs of ascites is noted. Bowel sound present, no guarding or rebound RADIO TIME SALESPERSON: Awake alert oriented without any focal neuro deficit and follows commands appropriately Extremities: Both legs shows fixed erythema and evidence of poor circulation. Pulses are nonpalpable Assessment and plan * Persistently elevated troponin level- patient last troponin on December 24 was 0.14. I believe this is due to his chronic renal insufficiency * Generalized body aches and pain more pronounced lower extremities, likely attributed to ischemic disease- patient will need the vascular surgery evaluation * Ascites and elevated bilirubin- need to review records to assess the underlying liver cirrhosis; other possibility is fluid overload due to end-stage renal disease * Hypocalcemia and hyperphosphatemia- possibly due to noncompliance with medications * Gap acidosis- due to missed dialysis, patient underwent hemodialysis today. We'll recheck labs in morning Assessment plan Current Medications Sig/Julissa Start time Last Medication Dose Route Stop Time Status Admin Acetaminophen 0 .STK-MED ONE 01/05 1446 DC IV Acetaminophen 1,000 MG ONCE ONE 01/05 1415 DC 01/05 N/A 1 UNIT IV 01/05 1429 1451 Alprazolam 0.5 MG BID PRN 01/05 1700 AC PO 01/12 1659 Aspirin 325 MG ONCE ONE 01/05 1600 DC PO 01/05 1601 Aspirin Buffered 81 MG DAILY 01/06 1000 AC PO Calcium Acetate 1,334 MG TID 01/05 2200 AC PO Clopidogrel Bisulfate 75 MG DAILY 01/06 1000 AC PO Epoetin [place] 4,000 UNIT TuThSa PRN 01/05 1445 AC IV Folic Acid 1 MG DAILY 01/06 1000 AC PO Heparin Sodium 5,000 UNIT Q8 01/05 2200 AC (Porcine) SC Hydrocodone Bitart/ 1 TAB Q8P PRN 01/05 1930 AC Acetaminophen PO Levothyroxine Sodium 0.2 MG DAILY AC 01/06 0700 AC PO Ondansetron HCl 4 MG ONCE ONE 01/05 1930 DC IV 01/05 1931 Ondansetron HCl 0 .STK-MED ONE 01/05 1446 DC .ROUTE Ondansetron HCl 4 MG ONCE ONE 01/05 1445 DC 01/05 IV 01/05 1446 1451 Ondansetron HCl 4 MG ONCE ONE 01/05 1230 DC 01/05 IV 01/05 1231 1206 Ondansetron HCl 0 .STK-MED ONE 01/05 1217 DC .ROUTE Ramelteon 8 MG AT BEDTIME 01/05 2200 AC PO Sertraline HCl 150 MG DAILY 01/06 1000 AC PO Sevelamer Carbonate 1,600 MG TIDAC 01/05 1700 AC PO Sodium Chloride 1,000 ML BOLUS ONE 01/05 1345 DC 01/05 IV 01/05 1444 1348 Sodium Chloride 500 ML BOLUS ONE 01/05 1245 DC 01/05 IV 01/05 1344 1253 Sodium Chloride 1,000 ML BOLUS ONE 01/05 1200 DC 01/05 IV 01/05 1359 1209 Trazodone HCl 150 MG QPM 01/05 2200 AC PO Laboratory Tests 01/05/18 1450: Magnesium 1.5 L, Amylase < 30 L, Lipase 37 01/05/18 1140: ESR Westergren 20 H 01/05/18 1122: Anion Gap 22 H, Estimated GFR 10 L, BUN/Creatinine Ratio 10.2, Glucose 196 H, Calcium 7.4 L, Phosphorus 6.4 H, Total Bilirubin 3.4 H, AST 29, ALT 35, Alkaline Phosphatase 431 H, Troponin I 0.17 *H, C-Reactive Prot, Quant 3.6 H, Total Protein 6.3, Albumin 3.5, Globulin 2.8, Albumin/Globulin Ratio 1.3, CBC w Diff NO MAN DIFF REQ, RBC 4.12 L, MCV 89.9, MCH 30.0, MCHC 33.4, RDW 18.2 H, MPV 8.3, Gran % 91.0 H, Lymphocytes % 3.4 L, Monocytes % 5.3, Eosinophils % 0, Basophils % 0.3, Absolute Granulocytes 8.6 H, Absolute Lymphocytes 0.3 L, Absolute Monocytes 0.5, Absolute Eosinophils 0, Absolute Basophils 0 Microbiology 01/05 1140 BLOOD: Blood Culture - RECD 01/05 1126 BLOOD: Blood Culture - RECD Vital Signs Date Time Temp Pulse Resp B/P B/P Pulse O2 O2 Flow FiO2 Mean Ox Delivery Rate 01/05 1412 98 22 97/51 99 Room Air 01/05 1345 98.8 90 20 80/46 94 Room Air 01/05 1242 90 72/44 01/05 1145 98.3 92 20 72/44 93 Room Air 01/05 0946 98.5 100 15 97/52 96 Room Air Room Air Intake & Output 01/05 1600 01/05 0800 01/05 0000 Intake Total 3000 Output Total Balance 3000 Intake, IV 3000 Patient 170 lb Weight Weight Reported by Patient Measurement Method Radiology studies were reviewed including CT scan of chest abdomen and pelvis. In addition venous Doppler study was negative. Pelvic x-ray did not show any acute fracture. Did not show any acute fracture. Chest x-ray shows chronicelevation of right hemidiaphragm.
--- NOTE | 2018-01-05 16:00 | CT SCAN REPORT ---
EXAMINATION: CT ABDOMEN AND PELVIS WITHOUT CONTRAST CT CHEST WITHOUT CONTRAST CLINICAL INFORMATION: Hypotensive. Fall. COMPARISON: CT abdomen pelvis dated 10/11/2017. CT chest dated 03/31/2017. TECHNIQUE: Multidetector volumetric imaging was performed through the chest, abdomen and pelvis. Sagittal and coronal reformatted images were obtained on the technologist's workstation. DLP: 619.35 mGy-cm FINDINGS: There are small bilateral pleural effusions, right side greater than left. There is right middle lobe atelectasis similar to the previous exam. No consolidative process. The heart is normal in size. There is no pericardial effusion. There are dense coronary artery calcifications. No mediastinal or hilar adenopathy. No axillary adenopathy. The thoracic aorta is normal in caliber. Main pulmonary artery is normal in caliber. The liver is normal in size and attenuation. The gallbladder is physiologically distended. The spleen is normal in size and attenuation. The pancreas is grossly normal in size and attenuation. There is no adrenal gland nodule. Both kidneys are somewhat diminutive in size. The right kidney contains several low-attenuation lesions, likely representing cysts. Additionally, there is a heterogeneous, mixed attenuation lesion arising from the upper pole measuring 3.6 cm. There is dense vascular calcification throughout the right kidney. There are dense vascular calcification throughout the left kidney. There are several low-attenuation lesions within the left kidney the largest measuring up to 3 cm, consistent with a simple cyst. There is no hydronephrosis. There is a moderate amount of abdominal ascites. The urinary bladder is unremarkable. The prostate gland is enlarged. There is no evidence of bowel obstruction. There is a large volume of pelvic ascites. No abdominal or pelvic lymphadenopathy. The subcutaneous low-attenuation focus superior to the left buttock is decreased in size, currently measuring 3.4 cm, previously measuring 4.6 cm. There are degenerative changes throughout the thoracolumbar spine. Neither sclerotic nor lytic bone lesions are identified. IMPRESSION: 1. Small bilateral pleural effusions, right greater than left. 2. Right middle lobe atelectasis, similar to the previous examination. 3. Large volume of abdominal and pelvic ascites. This is new when compared with the prior study. 4. No evidence of bowel obstruction. 5. Exophytic mass arising from the upper pole of the right kidney.
--- NOTE | 2018-01-05 19:32 | Admission Certification ---
Admission Certification Certification Statement - As attending physician, I certify that at the time of - admission, based on clinical presentation, severity of - symptoms, need for further diagnostic testing and - therapeutic interventions, and risk of adverse outcomes - without in-hospital treatment, in my clinical assessment, - this patient requires an acute hospital stay for a minimum - of two nights or longer. I have also considered psychsocial - factors such as support system, advanced age, financial - issues, cognitive issues, and failed out-patient treatments, - past re-admission history, safety of patient, and lack of - compliance as applicable. Specific rationale supporting this admission is: Generalized pain and ascites
--- NOTE | 2018-01-05 22:02 | Cons- Nephrology ---
General Information and HPI Consulting Request Date of Consult: 01/05/18 Requested By: Trevor Ibarra MD Reason for Consult: Management of ESRD Source of Information: patient, old records Exam Limitations: no limitations History of Present Illness: 67yo man with a background of dialysis dependant ESRD, DM, HTN, HLD, CAD s/p multiple PCI's, COPD, MILES on home O2, PVD, s/p thyroidectomy for Ca, chronic back pain s/p fusion, anxiety/depression, recent influenza (Tamiflu) and rhabdomyolysis now admitted with 1 day h/o severe weakness (unable to stand or walk), bilateral LE and knee pains, as well as nausea with multiple episodes of vomiting today as well as severe diffuse myalgias/arthralgias. No fever, chills, cough, sob or diarrhea. He is normally dialyzed on , and Sat at [facility] (formerly [facility]), and therefore due for treatment today. PMH as noted above Meds: see below Allergies: opioids, contrast FH + for HTN and DM, neg for kidney disease. SH: He lives with his sig other who has her own health issues, former smoker ( 5yrs ago), former alcohol abuser (remote), no h/o drug abuse. Allergies/Medications Allergies: Coded Allergies: morphine (Mild, LOOPY 01/18/17) hydromorphone (DEPRESSED RESPIRATIONS 01/18/17) Home Med List: Alprazolam (Xanax) 0.5 MG TABLET 1 TAB PO BID PRN ANXIETY Aspirin (Ecotrin*) 81 MG TABLET. 1 TAB PO DAILY HEART HEALTH (Reported) Calcium Acetate 667 MG CAPSULE 2 CAP PO TID UNKNOWN (Reported) Clopidogrel Bisulfate (Plavix) 75 MG TABLET 75 MG PO DAILY ANTIPLATELET Folic Acid 1 MG TABLET 1 TAB PO DAILY SUPPLEMENT (Reported) Furosemide (Lasix) 80 MG TABLET 1 TAB PO DAILY WATER RETENTION (Reported) Hydrocodone/Acetaminophen (Hydrocodon-Acetaminophen 5-325) 5 MG-325 MG TABLET 1 TAB PO Q8 PRN PAIN (Reported) Hydroxyzine Hydrochloride (Atarax) 25 MG TAB 1 TAB PO TID PRN ITCHING ONLY 10 PILLS. Insulin Aspart (Novolog) 100 UNIT/ML CARTRIDGE 0 SC TIDAC DIABETES BEFORE MEALS... Blood Insulin Sugar Units <80 0 81-150 3 151-200 4 201-250 6 251-300 7 301-350 8 351-400 9 >400 10 Call Doctor Isosorbide Mononitrate (Isosorbide Mononitrate ER) 60 MG TAB.ER.24H 1 TAB PO DAILY CAD Levothyroxine Sodium 200 MCG TABLET 1 TAB PO DAILY AC THYROID (Reported) Losartan Potassium 50 MG TABLET 50 MG PO DAILY high BP Metoprolol Succinate 25 MG TAB 1 TAB PO DAILY HEART (Reported) Nitroglycerin 0.4 MG TAB.SUBL 1 TAB SL DAILY PRN CHEST PAIN (Reported) 1st sign of attack; may repeat every 5 minutes until relief; if pain persists after 3 tablets in 15 minutes, prompt medical att Ramelteon (Rozerem) 8 MG TABLET 1 TAB PO AT BEDTIME SLEEP HELP Sertraline HCl (Zoloft) 100 MG TABLET 1.5 TAB PO DAILY ANXIETY (Reported) Sevelamer Carbonate (Renvela) 800 MG TABLET 2 TAB PO TIDAC ERSD (Reported) Trazodone HCl 150 MG TABLET 1 TAB PO QPM SLEEP (Reported) Past History Travel History Traveled to [place] past 21 day No Medical History Neurological: proximal muscle pain & weakness UE/LE B/L EENT: NONE Cardiovascular: CAD, hypertension, hyperlipidemia, PVD, 6 CARDIAC STENTS Respiratory: NONE (on O2-2L), COPD Gastrointestinal: hx colon polyps Hepatic: cholelithiasis (vs. 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 FH: heart disease MOTHER, , Age 85; Cause: ASHD (arteriosclerotic heart disease). Relation not specified for: FH: diabetes mellitus FH: hypertension Psychosocial History Where Do You Live? Home Who Do You Live With? girlfriend Services at Home: Home Health Aide, Nursing, Oxygen, Physical Therapy Primary Language: Spanish Smoking Status: Former Smoker (quit>5yrs) ETOH Use: heavy use, quitted 25 years ago Illicit Drug Use: denies illicit drug use Living Will? 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 Ambulation: independent (and/or rolling walker), cane IADLs Independent: shopping, housework, finances, food prep, telephone, transportation , medication admin. Exam & Diagnostic Data Vital Signs and I&O Vital Signs Date Time Temp Pulse Resp B/P B/P Pulse O2 O2 Flow FiO2 Mean Ox Delivery Rate 01/05 1412 98 22 97/51 99 Room Air 01/05 1345 98.8 90 20 80/46 94 Room Air 01/05 1242 90 72/44 01/05 1145 98.3 92 20 72/44 93 Room Air 01/05 0946 98.5 100 15 97/52 96 Room Air Room Air Intake & Output 01/05 1600 01/05 0400 01/04 1600 01/04 0400 01/03 1600 01/03 0400 Intake Total 3000 Output Total Balance 3000 Intake, IV 3000 Patient 170 lb Weight Weight Reported by Patient Measurement Method Physical Exam: General: Well-developed white male, appearing to be very uncomfortable frequently in need of an emesis basin Skin: Generalized skin rash with areas of macules, papules, excoriations, as well as discoloration in pretibial regions and feet; no jaundice HEENT: Conjunctivae pink, sclerae anicteric, mucous membranes dry Chest: Clear with diminished BS at bases Heart: Regular rate and rhythm without S3 or rub Abdomen: Distended but soft with mod diffuse tenderness without palpable masses or organomegaly Extremities: Areas of dry gangrene and necrosis in multiple toes bilaterally; 1+ edema; the left upper arm AVF is patent Neuro: Awake, alert, c/o diffuse pain and nausea, no asterixis or myoclonus Results Pertinent Lab Results: Laboratory Tests 01/05 01/05 01/05 01/05 01/05 2205 2000 1856 1450 1140 Chemistry Sodium (137 - 145 mmol/L) Pending 139 Potassium (3.5 - 5.1 mmol/L) Pending 2.2 *L Chloride (98 - 107 mmol/L) Pending 98 Carbon Dioxide (22 - 30 mmol/L) Pending 31 H Anion Gap (5 - 16) Pending 10 BUN (9 - 20 mg/dL) Pending < 2 L Creatinine (0.7 - 1.2 mg/dL) Pending 0.4 L Estimated GFR (>60 ml/min) > 60 BUN/Creatinine Ratio (7 - 25 %) Pending 5.0 L Calcium (8.4 - 10.2 mg/dL) 8.6 Phosphorus (2.5 - 4.5 mg/dL) Pending 0.6 *L Magnesium (1.6 - 2.3 mg/dL) 1.8 1.5 L Troponin I (<0.11 ng/ml) Cancelled 0.31 *H Amylase (30 - 110 U/L) < 30 L Lipase (23 - 300 U/L) 37 Hematology ESR Westergren (0 - 10 MM) 20 H 01/05 1122 Chemistry Sodium (137 - 145 mmol/L) 134 L Potassium (3.5 - 5.1 mmol/L) 5.1 Chloride (98 - 107 mmol/L) 93 L Carbon Dioxide (22 - 30 mmol/L) 19 L Anion Gap (5 - 16) 22 H BUN (9 - 20 mg/dL) 57 H Creatinine (0.7 - 1.2 mg/dL) 5.6 *H Estimated GFR (>60 ml/min) 10 L BUN/Creatinine Ratio (7 - 25 %) 10.2 Glucose (65 - 99 mg/dL) 196 H Calcium (8.4 - 10.2 mg/dL) 7.4 L Phosphorus (2.5 - 4.5 mg/dL) 6.4 H Total Bilirubin (0.2 - 1.3 mg/dL) 3.4 H AST (17 - 59 U/L) 29 ALT (21 - 72 U/L) 35 Alkaline Phosphatase (< 127 U/L) 431 H Troponin I (<0.11 ng/ml) 0.17 *H C-Reactive Prot, Quant (<1.0 mg/dL) 3.6 H Total Protein (6.3 - 8.2 g/dL) 6.3 Albumin (3.5 - 5.0 g/dL) 3.5 Globulin (1.9 - 4.2 gm/dL) 2.8 Albumin/Globulin Ratio (1.1 - 2.2 %) 1.3 Hematology CBC w Diff NO MAN DIFF REQ WBC (4.8 - 10.8 /CUMM) 9.5 RBC (4.70 - 6.10 /CUMM) 4.12 L Hgb (14.0 - 18.0 G/DL) 12.4 L Hct (42 - 52 %) 37.0 L MCV (80.0 - 94.0 FL) 89.9 MCH (27.0 - 31.0 PG) 30.0 MCHC (33.0 - 37.0 G/DL) 33.4 RDW (11.5 - 14.5 %) 18.2 H Plt Count (130 - 400 /CUMM) 181 MPV (7.4 - 10.4 FL) 8.3 Gran % (42.2 - 75.2 %) 91.0 H Lymphocytes % (20.5 - 51.1 %) 3.4 L Monocytes % (1.7 - 9.3 %) 5.3 Eosinophils % (0 - 5 %) 0 Basophils % (0.0 - 2.0 %) 0.3 Absolute Granulocytes (1.4 - 6.5 /CUMM) 8.6 H Absolute Lymphocytes (1.2 - 3.4 /CUMM) 0.3 L Absolute Monocytes (0.10 - 0.60 /CUMM) 0.5 Absolute Eosinophils (0.0 - 0.7 /CUMM) 0 Absolute Basophils (0.0 - 0.2 /CUMM) 0 Assessment/Plan Assessment/Recommendations Assessment: 1. ESRD 2. Severe weakness with nausea, vomiting, arthralgias, myalgias (alexander LE's), ascites - r/o sepsis, septic arthritis, GI pathology, cardiac ischemia 3. Hypotension - mostly chronic 4. Diffuse dermopathy - chronic/?acute 5. Right upper pole renal mass Recommendations: 1. Pancultures 2. Check amylase, lipase, LFT's, CK, lactate level, troponins 3. Consider dxtic paracentesis 4. GI and Vasc Surgery input 5. Hemodialysis today with only 1-2L UF as tolerated; next HD tentatively for Sat 01/07 6. Anti-emetics; npo for now 7. Continue outpt meds as feasible 8. Dermatology opinion 9. Once acute illness resolved/stabilized, consider MRI of right renal mass Thank you we will follow with you.
[2018-01-05 22:53] VITALS: BP 76/00
[2018-01-06 06:47] VITALS: BP 70/00
[2018-01-06 07:36] VITALS: BP 91/57
--- NOTE | 2018-01-06 07:54 | PN- Housestaff ---
Subjective Follow-up For: #Elevated Trop, likely type II [place] #R knee pain #Chronic chest discomfort #ESRD on HD #Hypocalcemia #PVD pending angiogram #PMH of CAD S/P 6 stents, hypertension, hyperlipidemia, PVD, chronic back pain, diabetes, thyroid cance status post thyroidectomy, CBP, anxiety/depression Tele-Events Since Last Visit: NSR 80-90s Subjective: No overnight event. Patient was complaining of the same painful R knee this AM. underwent dialysis without complication. Review of Systems Constitutional: Reports: see HPI. Objective Last 24 Hrs of Vital Signs/I&O Vital Signs Date Time Temp Pulse Resp B/P B/P Pulse O2 O2 Flow FiO2 Mean Ox Delivery Rate 01/06 0800 Room Air 01/06 0736 90 91/57 01/06 0647 98.9 88 18 70/00 96 01/05 2253 97.8 92 20 76/00 95 Room Air 01/05 1412 98 22 97/51 99 Room Air 01/05 1345 98.8 90 20 80/46 94 Room Air Intake & Output 01/06 1600 01/06 0800 01/06 0000 Intake Total 600 200 Output Total Balance 600 200 Intake, IV 500 Intake, Oral 100 200 Patient 86.353 kg Weight Weight Bed scale Measurement Method Physical Exam General Appearance: Alert, Oriented X3, Cooperative, Mild Distress Cardiovascular: Regular Rate Lungs: Clear to Auscultation, Normal Air Movement Abdomen: Soft, distended Neurological: Normal Speech Extremities: R knee pain on touch, erythematous but not swelling or elevated skin temps. numerous ulcers on BLE w/ ecchymoses, appeared stable Current Medications: Current Medications Sig/Julissa Start time Last Medication Dose Route Stop Time Status Admin Acetaminophen 1,000 MG ONCE ONE 01/06 0030 DC 01/06 N/A 1 UNIT IV 01/06 0044 0050 Acetaminophen 1,000 MG ONCE ONE 01/05 2200 DC 01/05 N/A 1 UNIT IV 01/05 2214 2210 Acetaminophen 0 .STK-MED ONE 01/05 1446 DC IV Acetaminophen 1,000 MG ONCE ONE 01/05 1415 DC 01/05 N/A 1 UNIT IV 01/05 1429 1451 Al Hydroxide/Mg 30 ML .STK-MED ONE 01/06 0343 DC Hydroxide PO 01/06 0344 Al Hydroxide/Mg 30 ML ONCE ONE 01/06 0330 DC 01/06 Hydroxide PO 01/06 0331 0343 Al Hydroxide/Mg 30 ML ONCE ONE 01/06 0100 DC 01/06 Hydroxide PO 01/06 0101 0124 Alprazolam 0.5 MG BID PRN 01/05 1700 AC PO 04/ 1659 Aspirin 325 MG ONCE ONE 01/05 1600 DC 01/05 PO 01/05 1601 2014 Aspirin Buffered 81 MG DAILY 01/06 1000 AC PO Calcium Acetate 1,334 MG TID 01/05 2200 AC 01/05 PO 2143 Clopidogrel Bisulfate 75 MG DAILY 01/06 1000 AC PO Epoetin [place] 4,000 UNIT TuThSa PRN 01/05 1445 AC IV Folic Acid 1 MG DAILY 01/06 1000 AC PO Heparin Sodium 5,000 UNIT Q8 01/05 2200 AC 01/06 (Porcine) SC 0651 Hydrocodone Bitart/ 1 TAB Q8P PRN 01/05 1930 AC 01/06 Acetaminophen PO 0409 Levothyroxine Sodium 0.2 MG DAILY AC 01/06 0700 AC 01/06 PO 0651 Melatonin 5 MG ONCE ONE 01/06 0045 DC 01/06 PO 01/06 0046 0050 Metoclopramide HCl 10 MG Q6P PRN 01/06 0830 AC 01/06 IV 0838 Ondansetron HCl 4 MG ONCE ONE 01/06 0115 DC 01/06 IV 01/06 0116 0418 Ondansetron HCl 4 MG ONCE ONE 01/05 1930 DC 01/05 IV 01/05 1931 1952 Ondansetron HCl 0 .STK-MED ONE 01/05 1446 DC .ROUTE Ondansetron HCl 4 MG ONCE ONE 01/05 1445 DC 01/05 IV 01/05 1446 1451 Pantoprazole Sodium 40 MG DAILY 01/06 1000 AC 01/06 IV 1204 Patient Medication 1 ED ONE ONE 01/06 1230 DC 01/06 Teaching ED 01/06 1231 1252 Ramelteon 8 MG AT BEDTIME 01/05 2200 AC 01/05 PO 2143 Sertraline HCl 150 MG DAILY 01/06 1000 AC PO Sevelamer Carbonate 1,600 MG TIDAC 01/06 1200 AC PO Sevelamer Carbonate 1,600 MG TIDAC 01/05 1700 DC 01/05 PO 1952 Sodium Chloride 500 ML BOLUS ONE 01/06 0115 DC 01/06 IV 01/06 0214 0124 Sodium Chloride 1,000 ML BOLUS ONE 01/05 1345 DC 01/05 IV 01/05 1444 1348 Sodium Chloride 500 ML BOLUS ONE 01/05 1245 DC 01/05 IV 01/05 1344 1253 Sodium Chloride 1,000 ML BOLUS ONE 01/05 1200 DC 01/05 IV 01/05 1359 1209 Trazodone HCl 150 MG QPM 01/05 2200 AC 01/05 PO 2142 Last 24 Hrs of Lab/Angus Results Last 24 Hrs of Labs/Mics: Laboratory Tests 01/06/18 1225: Troponin I Pending 01/06/18 1225: Lactic Acid Pending 01/06/18 0400: Troponin I 0.68 *H 01/06/18 0400: Anion Gap 20 H, Estimated GFR 19 L, BUN/Creatinine Ratio 8.8, Calcium 7.7 L, Phosphorus 5.6 H, Magnesium 1.8, Total Bilirubin 5.5 H, Direct Bilirubin 4.8 H, AST 50, ALT 36, Alkaline Phosphatase 376 H, Creatine Kinase 135, Total Protein 5.8 L, Albumin 3.0 L, Amylase < 30 L, Lipase 25 01/05/18 2205: Anion Gap 16, Estimated GFR 23 L, BUN/Creatinine Ratio 8.6, Phosphorus 4.0 01/05/18 2000: Troponin I Cancelled 01/05/18 1856: Anion Gap 10, Estimated GFR > 60, BUN/Creatinine Ratio 5.0 L, Calcium 8.6, Phosphorus 0.6 *L, Magnesium 1.8, Troponin I 0.31 *H 01/05/18 1546: Sodium Cancelled, Potassium Cancelled, Chloride Cancelled, Carbon Dioxide Cancelled, Anion Gap Cancelled, BUN Cancelled, Creatinine Cancelled, BUN/ Creatinine Ratio Cancelled, Phosphorus Cancelled 01/05/18 1450: Magnesium 1.5 L, Amylase < 30 L, Lipase 37 Microbiology 01/06 0604 URINE ROUT: Urine Culture - COLB Assessment/Plan Assessment: Mr. Dodd is a 68-year-old male with PMH of CAD S/P 6 stents, COPD on home oxygen 2 L, ESRD on HD with left arm aVF, hypertension, hyperlipidemia, PVD, chronic back pain, diabetes, thyroid cancer status post thyroidectomy, chronic BUE BLE muscle pain/weakness, CBP, anxiety/depression, presented to ER with chief complaint of generalized pain over the body, and inability to ambulate due to the right knee pain. Patient reported pain in his bilateral knees, and a mechanical for 2 weeks ago, however now the pain is mostly in his right knee, and inability to bend or move without being painful, is feeling of sharp knife stabbing pain 7-8/10, no radiations, and denies fever/chills. Patient also reported multiple chronic pulses especially on his bilateral upper and lower extremities. Due to the knee pain, patient was unable to make to dialysis today and presented to the ER for further evaluation. Patient denies any loss of consciousness/chest pain/palpitations/dyspnea/pedal edema. Patient was supposed to get angiogram for evaluation of peripheral vascular disease by Dr. Rodriguez. Dr. Rodriguez was contacted over the phone, and confirmed up appointment to be around 01/13/2018. On admission, Vitals: Afebrile BP 70s-90s/40s-50s, HR 90s, satting 99% on room air -CBC: WBC 9.5 (91% granulocytes), H/H 12.4/47.0 (anemia of chronic disease), PLT 181, -BMP: NA 144, K5.1, BUN 57, CR 5.6 (ESRD), EGFR 10, glucose 196, CA 7.4, bicarb 19 (metabolic acidosis) -Misc: ALK P 41, troponin 1 0.17, CRP 3.6, ESR 20, -CXR: 1. Slight interval increase elevation of the right hemidiaphragm. Small right effusion. Right basilar atelectasis. 2. No acute osseous abnormality appreciated in the chest or pelvis. -Knee Xray: 1. RIGHT KNEE: Chondrocalcinosis. No evidence of acute injury. 2. LEFT KNEE: Chondrocalcinosis. Minor spurring of the patella. No evidence of acute injury. -Pelvis XR: 1. Slight interval increase elevation of the right hemidiaphragm. Small right effusion. Right basilar atelectasis. 2. No acute osseous abnormality appreciated in the chest or pelvis. -BLE V-doppler: Negative for DVT -EKG: Pending. -Interventions in ER: IVF 2.5 L bolus, Zofran, Tylenol, Epogen 4000 units IV Tuesday scheduled. Assessment: Patient's clinical picture represented need of immediate dialysis to correct electrolyte this disturbance, and would warrant further cardiac evaluation of his elevated troponin, however likely secondary to type II WI pending rule out other causes. Problem list #Elevated Trop, likely type II WI #R knee pain #Chronic chest discomfort #ESRD on HD #New onset Ascites #Right renal mass #Hypocalcemia #PVD pending angiogram #PMH of CAD S/P 6 stents, hypertension, hyperlipidemia, PVD, chronic back pain, diabetes, thyroid cance status post thyroidectomy, CBP, anxiety/depression Plan -COntinue telemetry every 8 hours. If continue to increase, would repeat Echo per cardio - Repeat EKG in the PM and next AM -Plan for Paracentesis of new onset ascites by IR, pending scheduling. -Pending dermatology consult. DVT prophylaxis ALPS Dialysis diet Full Code Problem List: 1. 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 Vomiting 3. ESRD (end stage renal disease) on dialysis Pain Ratin Pain Location: R knee Pain Goal: Pain 7 or less Pain Plan: see AP Tomorrow's Labs & Rationales: CBC/BEP
--- NOTE | 2018-01-06 08:32 | Cons- Vascular Surgery ---
General Information and HPI History of Present Illness: 68 yo male, with CAD S/P 6 stents, COPD on home oxygen 2 L, ESRD on HD with left arm aVF, hypertension, hyperlipidemia, PVD, chronic back pain, diabetes, thyroid cancer status post thyroidectomy. has b/l foot ulcers and pain, and PAD. Has plans for LE angiogram as outpatient with Dr. Rodriguez, next week. But admitted yesterday with right thigh pain, swelling. denies fever, chills. has chronic pain b/l feet at rest. Allergies/Medications Allergies: Coded Allergies: morphine (Mild, LOOPY 01/18/17) hydromorphone (DEPRESSED RESPIRATIONS 01/18/17) Home Med List: Alprazolam (Xanax) 0.5 MG TABLET 1 TAB PO BID PRN ANXIETY Aspirin (Ecotrin*) 81 MG TABLET.DR 1 TAB PO DAILY HEART HEALTH (Reported) Calcium Acetate 667 MG CAPSULE 2 CAP PO TID UNKNOWN (Reported) Clopidogrel Bisulfate (Plavix) 75 MG TABLET 75 MG PO DAILY ANTIPLATELET Folic Acid 1 MG TABLET 1 TAB PO DAILY SUPPLEMENT (Reported) Furosemide (Lasix) 80 MG TABLET 1 TAB PO DAILY WATER RETENTION (Reported) Hydrocodone/Acetaminophen (Hydrocodon-Acetaminophen 5-325) 5 MG-325 MG TABLET 1 TAB PO Q8 PRN PAIN (Reported) Hydroxyzine Hydrochloride (Atarax) 25 MG TAB 1 TAB PO TID PRN ITCHING ONLY 10 PILLS. Insulin Aspart (Novolog) 100 UNIT/ML CARTRIDGE 0 SC TIDAC DIABETES BEFORE MEALS... Blood Insulin Sugar Units <80 0 81-150 3 151-200 4 201-250 6 251-300 7 301-350 8 351-400 9 >400 10 Call Doctor Isosorbide Mononitrate (Isosorbide Mononitrate ER) 60 MG TAB.ER.24H 1 TAB PO DAILY CAD Levothyroxine Sodium 200 MCG TABLET 1 TAB PO DAILY AC THYROID (Reported) Losartan Potassium 50 MG TABLET 50 MG PO DAILY high BP Metoprolol Succinate 25 MG TAB 1 TAB PO DAILY HEART (Reported) Nitroglycerin 0.4 MG TAB.SUBL 1 TAB SL DAILY PRN CHEST PAIN (Reported) 1st sign of attack; may repeat every 5 minutes until relief; if pain persists after 3 tablets in 15 minutes, prompt medical att Ramelteon (Rozerem) 8 MG TABLET 1 TAB PO AT BEDTIME SLEEP HELP Sertraline HCl (Zoloft) 100 MG TABLET 1.5 TAB PO DAILY ANXIETY (Reported) Sevelamer Carbonate (Renvela) 800 MG TABLET 2 TAB PO TIDAC ERSD (Reported) Trazodone HCl 150 MG TABLET 1 TAB PO QPM SLEEP (Reported) Past History Medical History Neurological: proximal muscle pain & weakness UE/LE B/L EENT: NONE Cardiovascular: CAD, hypertension, hyperlipidemia, PVD, 6 CARDIAC STENTS Respiratory: NONE (on O2-2L), COPD Gastrointestinal: hx colon polyps Hepatic: cholelithiasis (vs. 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 FH: heart disease MOTHER, , Age 85; Cause: ASHD (arteriosclerotic heart disease). Relation not specified for: FH: diabetes mellitus FH: hypertension Psychosocial History Where Do You Live? Home Who Do You Live With? girlfriend Services at Home: Home Health Aide, Nursing, Oxygen, Physical Therapy Primary Language: [place] Smoking Status: Former Smoker (quit>5yrs) ETOH Use: heavy use, quitted 25 years ago Illicit Drug Use: denies illicit drug use Living Will? no Power of Radio Division Officer/HCP? no Functional Ability ADLs Independent: dressing, eating, toileting, bathing. Ambulation: independent (and/or rolling walker), cane IADLs Independent: shopping, housework, finances, food prep, telephone, transportation , medication admin. Employment History Retired? yes Review of Systems Review of Systems Constitutional: Denies: chills, fever. EENTM: Denies: blurred vision. Cardiovascular: Denies: chest pain. Respiratory: Reports: short of breath. GI: Reports: distention. Musculoskeletal: Reports: joint swelling. Skin: Reports: lesions. Hematologic/Endocrine: Denies: bleeding. Exam & Diagnostic Data Vital Signs and I&O Vital Signs Date Time Temp Pulse Resp B/P B/P Pulse O2 O2 Flow FiO2 Mean Ox Delivery Rate 01/06 0736 90 91/57 01/06 0647 98.9 88 18 70/00 96 01/05 2253 97.8 92 20 76/00 95 Room Air 01/05 1412 98 22 97/51 99 Room Air 01/05 1345 98.8 90 20 80/46 94 Room Air 01/05 1242 90 72/44 01/05 1145 98.3 92 20 72/44 93 Room Air 01/05 0946 98.5 100 15 97/52 96 Room Air Room Air Intake & Output 01/06 1600 01/06 0800 01/06 0000 01/05 1600 01/05 0800 01/05 0000 Intake Total 383 791 4990 Output Total Balance 637 768 4337 Intake, IV 500 3000 Intake, Oral 100 200 Patient 86.353 kg 77.111 kg Weight Weight Bed scale Reported by Patient Measurement Method Physical Exam General Appearance: well developed/nourished, no apparent distress, alert, awake Head: atraumatic Eyes: Bilateral: normal appearance. Respiratory: normal breath sounds Cardiovascular: regular rate/rhythm Gastrointestinal: distention Extremities: Right lower thigh with erythema, subcut edema medially Skin: intact, b/l foot eschars Assessment/Plan Assessment/Plan B/l foot ulcer and PAD. At some needs angiogram. Will defer to Dr. Rodriguez such timing. Patient for possible paracentesis as per medicine. Problem List: 1. 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
--- NOTE | 2018-01-06 10:46 | PN- Nephrology ---
Assessment/Plan Nephrology Assessment: ESRD: No acute dialytic need today. Next dialysis tomorrow (Tuesday), as per his Tuesday schedule. Right kidney mass: Suggest urology evaluation New onset ascites: Diagnostic/therapeutic paracentesis reportedly planned Chronic skin lesions: Would benefit from dermatology evaluation Suggestion: as above Subjective Subjective: Continues to feel weak Poor by mouth intake Denies additional vomiting CAT scan made note of significant ascites, which is new Also has a right renal mass which had been seen on prior imaging Dialyzed yesterday, 1 L removed SBP running low in 80s to 90s however upon review of outpatient records as his baseline Review of Systems: Positive weakness Positive poor by mouth Did have nausea and vomiting but this is a bit better Positive abdominal distention No chest pain or shortness of breath No edema Objective Vital Signs and I&Os Vital Signs Date Time Temp Pulse Resp B/P B/P Pulse O2 O2 Flow FiO2 Mean Ox Delivery Rate 01/06 0800 Room Air 01/06 0736 90 91/57 01/06 0647 98.9 88 18 70/00 96 01/05 2253 97.8 92 20 76/00 95 Room Air 01/05 1412 98 22 97/51 99 Room Air 01/05 1345 98.8 90 20 80/46 94 Room Air 01/05 1242 90 72/44 01/05 1145 98.3 92 20 / 93 Room Air Intake & Output 01/06 1600 01/06 0400 01/05 1600 01/05 0400 01/04 1600 01/04 0400 Intake Total 836 318 0397 Output Total Balance 933 957 0685 Intake, IV 500 3000 Intake, Oral 100 200 Patient 190 lb 170 lb Weight Weight Bed scale Reported by Patient Measurement Method Physical Exam: nad ctab abd: distended, nt no edema s1 s2 LUE AVF+thrill/bruit skin: +chronic skin lesions Current Medications: Current Medications Sig/Julissa Start time Last Medication Dose Route Stop Time Status Admin Acetaminophen 1,000 MG ONCE ONE 01/06 0030 DC 01/06 N/A 1 UNIT IV 01/06 0044 0050 Acetaminophen 1,000 MG ONCE ONE 01/05 2200 DC 01/05 N/A 1 UNIT IV 01/05 2214 2210 Acetaminophen 0 .STK-MED ONE 01/05 1446 DC IV Acetaminophen 1,000 MG ONCE ONE 01/05 1415 DC 01/05 N/A 1 UNIT IV 01/05 1429 1451 Al Hydroxide/Mg 30 ML ONCE ONE 01/06 0330 DC 01/06 Hydroxide PO 01/06 0331 0343 Al Hydroxide/Mg 30 ML ONCE ONE 01/06 0100 DC 01/06 Hydroxide PO 01/06 0101 0124 Alprazolam 0.5 MG BID PRN 01/05 1700 AC PO / 1659 Aspirin 325 MG ONCE ONE 01/05 1600 DC 01/05 PO 01/05 1601 2014 Aspirin Buffered 81 MG DAILY 01/06 1000 AC PO Calcium Acetate 1,334 MG TID 01/05 2200 AC 01/05 PO 2143 Clopidogrel Bisulfate 75 MG DAILY 01/06 1000 AC PO Epoetin [place] 4,000 UNIT TuThSa PRN 01/05 1445 AC IV Folic Acid 1 MG DAILY 01/06 1000 AC PO Heparin Sodium 5,000 UNIT Q8 01/05 2200 AC 01/06 (Porcine) SC 0651 Hydrocodone Bitart/ 1 TAB Q8P PRN 01/05 1930 AC 01/06 Acetaminophen PO 0409 Levothyroxine Sodium 0.2 MG DAILY AC 01/06 0700 AC 01/06 PO 0651 Melatonin 5 MG ONCE ONE 01/06 0045 DC 01/06 PO 01/06 0046 0050 Metoclopramide HCl 10 MG Q6P PRN 01/06 0830 AC 01/06 IV 0838 Ondansetron HCl 4 MG ONCE ONE 01/06 0115 DC 01/06 IV 01/06 0116 0418 Ondansetron HCl 4 MG ONCE ONE 01/05 1930 DC 01/05 IV 01/05 1931 1952 Ondansetron HCl 0 .STK-MED ONE 01/05 1446 DC .ROUTE Ondansetron HCl 4 MG ONCE ONE 01/05 1445 DC 01/05 IV 01/05 1446 1451 Ondansetron HCl 4 MG ONCE ONE 01/05 1230 DC 01/05 IV 01/05 1231 1206 Ondansetron HCl 0 .STK-MED ONE 01/05 1217 DC .ROUTE Pantoprazole Sodium 40 MG DAILY 01/06 1000 AC IV Ramelteon 8 MG AT BEDTIME 01/05 2200 AC 01/05 PO 2143 Sertraline HCl 150 MG DAILY 01/06 1000 AC PO Sevelamer Carbonate 1,600 MG TIDAC 01/06 1200 AC PO Sevelamer Carbonate 1,600 MG TIDAC 01/05 1700 DC 01/05 PO 1952 Sodium Chloride 500 ML BOLUS ONE 01/06 0115 DC 01/06 IV 01/06 0214 0124 Sodium Chloride 1,000 ML BOLUS ONE 01/05 1345 DC 01/05 IV 01/05 1444 1348 Sodium Chloride 500 ML BOLUS ONE 01/05 1245 DC 01/05 IV 01/05 1344 1253 Sodium Chloride 1,000 ML BOLUS ONE 01/05 1200 DC 01/05 IV 01/05 1359 1209 Trazodone HCl 150 MG QPM 01/05 2200 AC 01/05 PO 2142 Results Pertinent Lab Results: Laboratory Tests 01/06 01/06 01/05 01/05 01/05 0400 0400 220 2000 1856 Chemistry Sodium (137 - 145 mmol/L) 138 137 139 Potassium (3.5 - 5.1 mmol/L) 4.4 3.9 2.2 *L Chloride (98 - 107 mmol/L) 96 L 97 L 98 Carbon Dioxide (22 - 30 mmol/L) 23 24 31 H Anion Gap (5 - 16) 20 H 16 10 BUN (9 - 20 mg/dL) 29 H 24 H < 2 L Creatinine (0.7 - 1.2 mg/dL) 3.3 H 2.8 H 0.4 L Estimated GFR (>60 ml/min) 19 L 23 L > 60 BUN/Creatinine Ratio (7 - 25 %) 8.8 8.6 5.0 L Calcium (8.4 - 10.2 mg/dL) 7.7 L 8.6 Phosphorus (2.5 - 4.5 mg/dL) 5.6 H 4.0 0.6 *L Magnesium (1.6 - 2.3 mg/dL) 1.8 1.8 Total Bilirubin (0.2 - 1.3 mg/dL) 5.5 H Direct Bilirubin (< 0.4 mg/dL) 4.8 H AST (17 - 59 U/L) 50 ALT (21 - 72 U/L) 36 Alkaline Phosphatase (< 127 U/L) 376 H Creatine Kinase (55 - 170 U/L) 135 Troponin I (<0.11 ng/ml) 0.68 *H Cancelled 0.31 *H Total Protein (6.3 - 8.2 g/dL) 5.8 L Albumin (3.5 - 5.0 g/dL) 3.0 L Amylase (30 - 110 U/L) < 30 L Lipase (23 - 300 U/L) 25 01/05 01/05 01/05 1546 1450 1140 Chemistry Sodium Cancelled Potassium Cancelled Chloride Cancelled Carbon Dioxide Cancelled Anion Gap Cancelled BUN Cancelled Creatinine Cancelled BUN/Creatinine Ratio Cancelled Phosphorus Cancelled Magnesium (1.6 - 2.3 mg/dL) 1.5 L Amylase (30 - 110 U/L) < 30 L Lipase (23 - 300 U/L) 37 Hematology ESR Westergren (0 - 10 MM) 20 H 01/05 1122 Chemistry Sodium (137 - 145 mmol/L) 134 L Potassium (3.5 - 5.1 mmol/L) 5.1 Chloride (98 - 107 mmol/L) 93 L Carbon Dioxide (22 - 30 mmol/L) 19 L Anion Gap (5 - 16) 22 H BUN (9 - 20 mg/dL) 57 H Creatinine (0.7 - 1.2 mg/dL) 5.6 *H Estimated GFR (>60 ml/min) 10 L BUN/Creatinine Ratio (7 - 25 %) 10.2 Glucose (65 - 99 mg/dL) 196 H Calcium (8.4 - 10.2 mg/dL) 7.4 L Phosphorus (2.5 - 4.5 mg/dL) 6.4 H Total Bilirubin (0.2 - 1.3 mg/dL) 3.4 H AST (17 - 59 U/L) 29 ALT (21 - 72 U/L) 35 Alkaline Phosphatase (< 127 U/L) 431 H Troponin I (<0.11 ng/ml) 0.17 *H C-Reactive Prot, Quant (<1.0 mg/dL) 3.6 H Total Protein (6.3 - 8.2 g/dL) 6.3 Albumin (3.5 - 5.0 g/dL) 3.5 Globulin (1.9 - 4.2 gm/dL) 2.8 Albumin/Globulin Ratio (1.1 - 2.2 %) 1.3 Hematology CBC w Diff NO MAN DIFF REQ WBC (4.8 - 10.8 /CUMM) 9.5 RBC (4.70 - 6.10 /CUMM) 4.12 L Hgb (14.0 - 18.0 G/DL) 12.4 L Hct (42 - 52 %) 37.0 L MCV (80.0 - 94.0 FL) 89.9 MCH (27.0 - 31.0 PG) 30.0 MCHC (33.0 - 37.0 G/DL) 33.4 RDW (11.5 - 14.5 %) 18.2 H Plt Count (130 - 400 /CUMM) 181 MPV (7.4 - 10.4 FL) 8.3 Gran % (42.2 - 75.2 %) 91.0 H Lymphocytes % (20.5 - 51.1 %) 3.4 L Monocytes % (1.7 - 9.3 %) 5.3 Eosinophils % (0 - 5 %) 0 Basophils % (0.0 - 2.0 %) 0.3 Absolute Granulocytes (1.4 - 6.5 /CUMM) 8.6 H Absolute Lymphocytes (1.2 - 3.4 /CUMM) 0.3 L Absolute Monocytes (0.10 - 0.60 /CUMM) 0.5 Absolute Eosinophils (0.0 - 0.7 /CUMM) 0 Absolute Basophils (0.0 - 0.2 /CUMM) 0
--- NOTE | 2018-01-06 13:27 | Cons- Cardiology ---
General Information and HPI Consulting Request Date of Consult: 01/06/18 Requested By: Ashleigh ELDRIDGE,Patricia Reason for Consult: Elevated troponin Source of Information: patient, old records Exam Limitations: no limitations History of Present Illness: The patient is a 68-year-old male who is well-known to me. His past medical history is remarkable for coronary disease, status post multiple stents, prior myocardial infarction, cardiomyopathy with depressed left ventricular function, hypertension, hyperlipidemia, peripheral vascular disease, venous insufficiency with peripheral venous disease, end-stage renal disease on hemodialysis, thyroid disease, etc. The patient now is readmitted to the hospital with complaints of generalized discomfort, most prominent in his right lower extremity and the inability to weight bear or ambulate due to right leg/knee discomfort. Has had apparently multiple mechanical falls. I was asked see the patient for evidence of a mildly elevated troponin Allergies/Medications Allergies: Coded Allergies: morphine (Mild, LOOPY 01/18/17) hydromorphone (DEPRESSED RESPIRATIONS 01/18/17) Home Med List: Alprazolam (Xanax) 0.5 MG TABLET 1 TAB PO BID PRN ANXIETY Aspirin (Ecotrin*) 81 MG TABLET.DR 1 TAB PO DAILY HEART HEALTH (Reported) Calcium Acetate 667 MG CAPSULE 2 CAP PO TID UNKNOWN (Reported) Clopidogrel Bisulfate (Plavix) 75 MG TABLET 75 MG PO DAILY ANTIPLATELET Folic Acid 1 MG TABLET 1 TAB PO DAILY SUPPLEMENT (Reported) Furosemide (Lasix) 80 MG TABLET 1 TAB PO DAILY WATER RETENTION (Reported) Hydrocodone/Acetaminophen (Hydrocodon-Acetaminophen 5-325) 5 MG-325 MG TABLET 1 TAB PO Q8 PRN PAIN (Reported) Hydroxyzine Hydrochloride (Atarax) 25 MG TAB 1 TAB PO TID PRN ITCHING ONLY 10 PILLS. Insulin Aspart (Novolog) 100 UNIT/ML CARTRIDGE 0 SC TIDAC DIABETES BEFORE MEALS... Blood Insulin Sugar Units <80 0 81-150 3 151-200 4 201-250 6 251-300 7 301-350 8 351-400 9 >400 10 Call Doctor Isosorbide Mononitrate (Isosorbide Mononitrate ER) 60 MG TAB.ER.24H 1 TAB PO DAILY CAD Levothyroxine Sodium 200 MCG TABLET 1 TAB PO DAILY AC THYROID (Reported) Losartan Potassium 50 MG TABLET 50 MG PO DAILY high BP Metoprolol Succinate 25 MG TAB 1 TAB PO DAILY HEART (Reported) Nitroglycerin 0.4 MG TAB.SUBL 1 TAB SL DAILY PRN CHEST PAIN (Reported) 1st sign of attack; may repeat every 5 minutes until relief; if pain persists after 3 tablets in 15 minutes, prompt medical att Ramelteon (Rozerem) 8 MG TABLET 1 TAB PO AT BEDTIME SLEEP HELP Sertraline HCl (Zoloft) 100 MG TABLET 1.5 TAB PO DAILY ANXIETY (Reported) Sevelamer Carbonate (Renvela) 800 MG TABLET 2 TAB PO TIDAC ERSD (Reported) Trazodone HCl 150 MG TABLET 1 TAB PO QPM SLEEP (Reported) Current Medications: Current Medications Sig/Julissa Start time Last Medication Dose Route Stop Time Status Admin Acetaminophen 1,000 MG ONCE ONE 01/06 0030 DC 01/06 N/A 1 UNIT IV 01/06 0044 0050 Acetaminophen 1,000 MG ONCE ONE 01/05 2200 DC 01/05 N/A 1 UNIT IV 01/05 2214 2210 Acetaminophen 0 .STK-MED ONE 01/05 1446 DC IV Acetaminophen 1,000 MG ONCE ONE 01/05 1415 DC 01/05 N/A 1 UNIT IV 01/05 1429 1451 Al Hydroxide/Mg 30 ML .STK-MED ONE 01/06 0343 DC Hydroxide PO 01/06 0344 Al Hydroxide/Mg 30 ML ONCE ONE 01/06 0330 DC 01/06 Hydroxide PO 01/06 0331 0343 Al Hydroxide/Mg 30 ML ONCE ONE 01/06 0100 DC 01/06 Hydroxide PO 01/06 0101 0124 Alprazolam 0.5 MG BID PRN 01/05 1700 AC PO 04/ 1659 Aspirin 325 MG ONCE ONE 01/05 1600 DC 01/05 PO 01/05 1601 2014 Aspirin Buffered 81 MG DAILY 01/06 1000 AC PO Calcium Acetate 1,334 MG TID 01/05 2200 AC 01/05 PO 2143 Clopidogrel Bisulfate 75 MG DAILY 01/06 1000 AC PO Epoetin [place] 4,000 UNIT TuThSa PRN 01/05 1445 AC IV Folic Acid 1 MG DAILY 01/06 1000 AC PO Heparin Sodium 5,000 UNIT Q8 01/05 2200 AC 01/06 (Porcine) SC 0651 Hydrocodone Bitart/ 1 TAB Q8P PRN 01/05 1930 AC 01/06 Acetaminophen PO 0409 Levothyroxine Sodium 0.2 MG DAILY AC 01/06 0700 AC 01/06 PO 0651 Melatonin 5 MG ONCE ONE 01/06 0045 DC 01/06 PO 01/06 0046 0050 Metoclopramide HCl 10 MG Q6P PRN 01/06 0830 AC 01/06 IV 0838 Ondansetron HCl 4 MG ONCE ONE 01/06 0115 DC 01/06 IV 01/06 0116 0418 Ondansetron HCl 4 MG ONCE ONE 01/05 1930 DC 01/05 IV 01/05 1931 1952 Ondansetron HCl 0 .STK-MED ONE 01/05 1446 DC .ROUTE Ondansetron HCl 4 MG ONCE ONE 01/05 1445 DC 01/05 IV 01/05 1446 1451 Pantoprazole Sodium 40 MG DAILY 01/06 1000 AC 01/06 IV 1204 Patient Medication 1 ED ONE ONE 01/06 1230 DC 01/06 Teaching ED 01/06 1231 1252 Ramelteon 8 MG AT BEDTIME 01/05 2200 AC 01/05 PO 2143 Sertraline HCl 150 MG DAILY 01/06 1000 AC PO Sevelamer Carbonate 1,600 MG TIDAC 01/06 1200 AC PO Sevelamer Carbonate 1,600 MG TIDAC 01/05 1700 DC 01/05 PO 1952 Sodium Chloride 500 ML BOLUS ONE 01/06 0115 DC 01/06 IV 01/06 0214 0124 Sodium Chloride 1,000 ML BOLUS ONE 01/05 1345 DC 01/05 IV 01/05 1444 1348 Sodium Chloride 500 ML BOLUS ONE 01/05 1245 DC 01/05 IV 01/05 1344 1253 Sodium Chloride 1,000 ML BOLUS ONE 01/05 1200 DC 01/05 IV 01/05 1359 1209 Trazodone HCl 150 MG QPM 01/05 2200 AC 01/05 PO 2142 Past History Travel History Traveled to [place] past 21 day No Medical History Neurological: proximal muscle pain & weakness UE/LE B/L EENT: NONE Cardiovascular: CAD, hypertension, hyperlipidemia, PVD, 6 CARDIAC STENTS Respiratory: NONE (on O2-2L), COPD Gastrointestinal: hx colon polyps Hepatic: cholelithiasis (vs. 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 FH: heart disease MOTHER, , Age 85; Cause: ASHD (arteriosclerotic heart disease). Relation not specified for: FH: diabetes mellitus FH: hypertension Psychosocial History Where Do You Live? Home Who Do You Live With? girlfriend Services at Home: Home Health Aide, Nursing, Oxygen, Physical Therapy Primary Language: Portuguese Smoking Status: Former Smoker (quit>5yrs) ETOH Use: heavy use, quitted 25 years ago Illicit Drug Use: denies illicit drug use Living Will? no Power of Blogs Manager/HCP? no Functional Ability ADLs Independent: dressing, eating, toileting, bathing. Ambulation: independent (and/or rolling walker), cane IADLs Independent: shopping, housework, finances, food prep, telephone, transportation , medication admin. Exam & Diagnostic Data Vital Signs and I&O Vital Signs Date Time Temp Pulse Resp B/P B/P Pulse O2 O2 Flow FiO2 Mean Ox Delivery Rate 01/06 08 Room Air 01/06 0736 90 91/57 01/06 0647 98.9 88 18 70/00 96 01/05 2253 97.8 92 20 76/00 95 Room Air 01/05 1412 98 22 97/51 99 Room Air 01/05 1345 98.8 90 20 80/46 94 Room Air Intake & Output 01/06 1600 01/06 0801/06 0000 01/05 1600 01/05 0000 Intake Total 375 435 6367 Output Total Balance 792 883 0759 Intake, IV 500 3000 Intake, Oral 100 200 Patient 190 lb 170 lb Weight Weight Bed scale Reported by Patient Measurement Method Physical Exam: General Appearance Alert, Oriented X3, Cooperative, Mild Distress Skin Healing ulcers on BUE/BLE with ecchymosis Skin Temp/Moisture Exam: Cool/Dry Sepsis Skin Exam (color): Normal for Ethnicity HEENT PERRLA, healing wound on left eyebrow from fall 2 weeks ago. Neck Supple, No JVD, carotids normal bilaterally Cardiovascular Regular, S1, S2, 1 to 2/6 systolic murmur Lungs Clear to Auscultation and percussion bilaterally Abdomen Normal Bowel Sounds, Soft, mild tenderness on palpation in mid ab Neurological Normal/nonfocal Extremities BLE healing ulcers on cardenas, and heals, and feet BL knees cool to touch, however R knee very tender to touch, without signs of swelling, limited ROM, no elevation of skin temp, bony walden available. Labs/Angus Results: Laboratory Tests 01/06 01/06 01/06 01/06 01/05 1225 1225 0400 0400 2205 Chemistry Sodium (137 - 145 mmol/L) 138 137 Potassium (3.5 - 5.1 mmol/L) 4.4 3.9 Chloride (98 - 107 mmol/L) 96 L 97 L Carbon Dioxide (22 - 30 mmol/L) 23 24 Anion Gap (5 - 16) 20 H 16 BUN (9 - 20 mg/dL) 29 H 24 H Creatinine (0.7 - 1.2 mg/dL) 3.3 H 2.8 H Estimated GFR (>60 ml/min) 19 L 23 L BUN/Creatinine Ratio (7 - 25 %) 8.8 8.6 Lactic Acid Pending Calcium (8.4 - 10.2 mg/dL) 7.7 L Phosphorus (2.5 - 4.5 mg/dL) 5.6 H 4.0 Magnesium (1.6 - 2.3 mg/dL) 1.8 Total Bilirubin (0.2 - 1.3 mg/dL) 5.5 H Direct Bilirubin (< 0.4 mg/dL) 4.8 H AST (17 - 59 U/L) 50 ALT (21 - 72 U/L) 36 Alkaline Phosphatase (< 127 U/L) 376 H Creatine Kinase (55 - 170 U/L) 135 Troponin I (<0.11 ng/ml) Pending 0.68 *H Total Protein (6.3 - 8.2 g/dL) 5.8 L Albumin (3.5 - 5.0 g/dL) 3.0 L Amylase (30 - 110 U/L) < 30 L Lipase (23 - 300 U/L) 01/05 1856 1546 1450 1140 Chemistry Sodium (137 - 145 mmol/L) 139 Cancelled Potassium (3.5 - 5.1 mmol/L) 2.2 *L Cancelled Chloride (98 - 107 mmol/L) 98 Cancelled Carbon Dioxide (22 - 30 mmol/L) 31 H Cancelled Anion Gap (5 - 16) 10 Cancelled BUN (9 - 20 mg/dL) < 2 L Cancelled Creatinine (0.7 - 1.2 mg/dL) 0.4 L Cancelled Estimated GFR (>60 ml/min) > 60 BUN/Creatinine Ratio (7 - 25 %) 5.0 L Cancelled Calcium (8.4 - 10.2 mg/dL) 8.6 Phosphorus (2.5 - 4.5 mg/dL) 0.6 *L Cancelled Magnesium (1.6 - 2.3 mg/dL) 1.8 1.5 L Troponin I (<0.11 ng/ml) Cancelled 0.31 *H Amylase (30 - 110 U/L) < 30 L Lipase (23 - 300 U/L) 37 Hematology ESR Westergren (0 - 10 MM) 20 H 01/05 1122 Chemistry Sodium (137 - 145 mmol/L) 134 L Potassium (3.5 - 5.1 mmol/L) 5.1 Chloride (98 - 107 mmol/L) 93 L Carbon Dioxide (22 - 30 mmol/L) 19 L Anion Gap (5 - 16) 22 H BUN (9 - 20 mg/dL) 57 H Creatinine (0.7 - 1.2 mg/dL) 5.6 *H Estimated GFR (>60 ml/min) 10 L BUN/Creatinine Ratio (7 - 25 %) 10.2 Glucose (65 - 99 mg/dL) 196 H Calcium (8.4 - 10.2 mg/dL) 7.4 L Phosphorus (2.5 - 4.5 mg/dL) 6.4 H Total Bilirubin (0.2 - 1.3 mg/dL) 3.4 H AST (17 - 59 U/L) 29 ALT (21 - 72 U/L) 35 Alkaline Phosphatase (< 127 U/L) 431 H Troponin I (<0.11 ng/ml) 0.17 *H C-Reactive Prot, Quant (<1.0 mg/dL) 3.6 H Total Protein (6.3 - 8.2 g/dL) 6.3 Albumin (3.5 - 5.0 g/dL) 3.5 Globulin (1.9 - 4.2 gm/dL) 2.8 Albumin/Globulin Ratio (1.1 - 2.2 %) 1.3 Hematology CBC w Diff NO MAN DIFF REQ WBC (4.8 - 10.8 /CUMM) 9.5 RBC (4.70 - 6.10 /CUMM) 4.12 L Hgb (14.0 - 18.0 G/DL) 12.4 L Hct (42 - 52 %) 37.0 L MCV (80.0 - 94.0 FL) 89.9 MCH (27.0 - 31.0 PG) 30.0 MCHC (33.0 - 37.0 G/DL) 33.4 RDW (11.5 - 14.5 %) 18.2 H Plt Count (130 - 400 /CUMM) 181 MPV (7.4 - 10.4 FL) 8.3 Gran % (42.2 - 75.2 %) 91.0 H Lymphocytes % (20.5 - 51.1 %) 3.4 L Monocytes % (1.7 - 9.3 %) 5.3 Eosinophils % (0 - 5 %) 0 Basophils % (0.0 - 2.0 %) 0.3 Absolute Granulocytes (1.4 - 6.5 /CUMM) 8.6 H Absolute Lymphocytes (1.2 - 3.4 /CUMM) 0.3 L Absolute Monocytes (0.10 - 0.60 /CUMM) 0.5 Absolute Eosinophils (0.0 - 0.7 /CUMM) 0 Absolute Basophils (0.0 - 0.2 /CUMM) 0 Assessment/Plan Assessment/Plan Assessment: 1. Elevated troponin-the patient frequently has newly elevated troponins, likely on the basis of underlying renal insufficiency. Nevertheless, he does have significant, nonintravenous, underlying coronary artery disease. At the moment, he denies any significant cardiac symptoms and I suspect that the troponin elevation is not related to any underlying cardiac issue but rather his renal insufficiency. 2. Generalized pain 3. Chronic issues with lower extremity arterial and venous insufficiency/PAD/ PVI 4. End-stage renal disease on hemodialysis 5. Elevated bilirubin 6. Recommendations: -Keep on telemetry another 24 hours -The troponin started at 0.17 and has now risen to 0.6 today. Continue to trend troponin until decreasing. -If the troponin continues to rise, I would repeat a limited follow-up echo cardiac gram to reassess left ventricular function and wall motion. -Repeat ECG later today and again in the morning -Further plans at that time Consult Acknowledgment - Thank you for your consult request.
--- NOTE | 2018-01-06 13:44 | PN- Att Addend ---
Attending Addendum Attending Brief Note Patient seen and examined. Plan of care discussed with the medical team and the patient. Available lab work and radiology test reports were reviewed. She complains of been nauseous morning. He denies any difficulty breathing or chest pain or abdominal pain. His by mouth intake is 4. Denies any fever chills. Exam: General: Patient awake but appears sleepy; oriented with mild distress due to nausea CVS: S1 plus S2 without any murmur or gallops Chest: Few scattered crepitation without any wheeze. There is no respiratory distress. 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 Pulses are nonpalpable Assessment and plan * Persistently elevated troponin level- patient last troponin on December 24 was 0.14. I believe this is due to his chronic renal insufficiency; troponin level has increased. Wait for cardiology input * Generalized body aches and pain more pronounced in lower extremities, likely attributed to ischemic peripheral vascular disease - patient will need the vascular surgery evaluation such as angiogram which is planned for next Tuesday. [facility] surgery note reviewed * Ascites and elevated bilirubin- need to review records to assess the underlying liver cirrhosis; other possibility is fluid overload due to end-stage renal disease or CHF. We'll check his BNP. Review of prior echo shows ejection fraction 30-35%. * Hypocalcemia and hyperphosphatemia- possibly due to noncompliance with medications * Gap acidosis- due to missed dialysis, patient underwent hemodialysis yesterday. We'll recheck labs in morning * End-stage renal disease- plan for hematemesis tomorrow * Exophytic mass right kidney- please obtain urology consult; check urine cytology Current Medications Sig/Julissa Start time Last Medication Dose Route Stop Time Status Admin Acetaminophen 1,000 MG ONCE ONE 01/06 0030 DC 01/06 N/A 1 UNIT IV 01/06 0044 0050 Acetaminophen 1,000 MG ONCE ONE 01/05 2200 DC 01/05 N/A 1 UNIT IV 01/05 2214 2210 Acetaminophen 0 .STK-MED ONE 01/05 1446 DC IV Acetaminophen 1,000 MG ONCE ONE 01/05 1415 DC 01/05 N/A 1 UNIT IV 01/05 1429 1451 Al Hydroxide/Mg 30 ML .STK-MED ONE 01/06 0343 DC Hydroxide PO 01/06 0344 Al Hydroxide/Mg 30 ML ONCE ONE 01/06 0330 DC 01/06 Hydroxide PO 01/06 0331 0343 Al Hydroxide/Mg 30 ML ONCE ONE 01/06 0100 DC 01/06 Hydroxide PO 01/06 0101 0124 Alprazolam 0.5 MG BID PRN 01/05 1700 AC PO 01/12 1659 Aspirin 325 MG ONCE ONE 01/05 1600 DC 01/05 PO 01/05 1601 2014 Aspirin Buffered 81 MG DAILY 01/06 1000 AC PO Calcium Acetate 1,334 MG TID 01/05 2200 AC 01/05 PO 2143 Clopidogrel Bisulfate 75 MG DAILY 01/06 1000 AC PO Epoetin [place] 4,000 UNIT TuThSa PRN 01/05 1445 AC IV Folic Acid 1 MG DAILY 01/06 1000 AC PO Heparin Sodium 5,000 UNIT Q8 01/05 2200 AC 01/06 (Porcine) SC 0651 Hydrocodone Bitart/ 1 TAB Q8P PRN 01/05 1930 AC 01/06 Acetaminophen PO 0409 Levothyroxine Sodium 0.2 MG DAILY AC 01/06 0700 AC 01/06 PO 0651 Melatonin 5 MG ONCE ONE 01/06 0045 DC 01/06 PO 01/06 0046 0050 Metoclopramide HCl 10 MG Q6P PRN 01/06 0830 AC 01/06 IV 0838 Ondansetron HCl 4 MG ONCE ONE 01/06 0115 DC 01/06 IV 01/06 0116 0418 Ondansetron HCl 4 MG ONCE ONE 01/05 1930 DC 01/05 IV 01/05 1931 1952 Ondansetron HCl 0 .STK-MED ONE 01/05 1446 DC .ROUTE Ondansetron HCl 4 MG ONCE ONE 01/05 1445 DC 01/05 IV 01/05 1446 1451 Pantoprazole Sodium 40 MG DAILY 01/06 1000 AC 01/06 IV 1204 Patient Medication 1 ED ONE ONE 01/06 1230 DC 01/06 Teaching ED 01/06 1231 1252 Ramelteon 8 MG AT BEDTIME 01/05 2200 AC 01/05 PO 2143 Sertraline HCl 150 MG DAILY 01/06 1000 AC PO Sevelamer Carbonate 1,600 MG TIDAC 01/06 1200 AC PO Sevelamer Carbonate 1,600 MG TIDAC 01/05 1700 DC 01/05 PO 1952 Sodium Chloride 500 ML BOLUS ONE 01/06 0115 DC 01/06 IV 01/06 0214 0124 Sodium Chloride 1,000 ML BOLUS ONE 01/05 1345 DC 01/05 IV 01/05 1444 1348 Sodium Chloride 500 ML BOLUS ONE 01/05 1245 DC 01/05 IV 01/05 1344 1253 Sodium Chloride 1,000 ML BOLUS ONE 01/05 1200 DC 01/05 IV 01/05 1359 1209 Trazodone HCl 150 MG QPM 01/05 2200 AC 01/05 PO 2142 Laboratory Tests 01/06/18 1225: Troponin I Pending 01/06/18 1225: Lactic Acid Pending 01/06/18 0400: Troponin I 0.68 *H 01/06/18 0400: Anion Gap 20 H, Estimated GFR 19 L, BUN/Creatinine Ratio 8.8, Calcium 7.7 L, Phosphorus 5.6 H, Magnesium 1.8, Total Bilirubin 5.5 H, Direct Bilirubin 4.8 H, AST 50, ALT 36, Alkaline Phosphatase 376 H, Creatine Kinase 135, Total Protein 5.8 L, Albumin 3.0 L, Amylase < 30 L, Lipase 25 01/05/18 2205: Anion Gap 16, Estimated GFR 23 L, BUN/Creatinine Ratio 8.6, Phosphorus 4.0 01/05/18 2000: Troponin I Cancelled 01/05/18 1856: Anion Gap 10, Estimated GFR > 60, BUN/Creatinine Ratio 5.0 L, Calcium 8.6, Phosphorus 0.6 *L, Magnesium 1.8, Troponin I 0.31 *H 01/05/18 1546: Sodium Cancelled, Potassium Cancelled, Chloride Cancelled, Carbon Dioxide Cancelled, Anion Gap Cancelled, BUN Cancelled, Creatinine Cancelled, BUN/ Creatinine Ratio Cancelled, Phosphorus Cancelled 01/05/18 1450: Magnesium 1.5 L, Amylase < 30 L, Lipase 37 01/05/18 1140: ESR Westergren 20 H 01/05/18 1122: Anion Gap 22 H, Estimated GFR 10 L, BUN/Creatinine Ratio 10.2, Glucose 196 H, Calcium 7.4 L, Phosphorus 6.4 H, Total Bilirubin 3.4 H, AST 29, ALT 35, Alkaline Phosphatase 431 H, Troponin I 0.17 *H, C-Reactive Prot, Quant 3.6 H, Total Protein 6.3, Albumin 3.5, Globulin 2.8, Albumin/Globulin Ratio 1.3, CBC w Diff NO MAN DIFF REQ, RBC 4.12 L, MCV 89.9, MCH 30.0, MCHC 33.4, RDW 18.2 H, MPV 8.3, Gran % 91.0 H, Lymphocytes % 3.4 L, Monocytes % 5.3, Eosinophils % 0, Basophils % 0.3, Absolute Granulocytes 8.6 H, Absolute Lymphocytes 0.3 L, Absolute Monocytes 0.5, Absolute Eosinophils 0, Absolute Basophils 0 Microbiology 01/06 0604 URINE ROUT: Urine Culture - COLB 01/05 1140 BLOOD: Blood Culture - RES 01/05 1126 BLOOD: Blood Culture - RES Vital Signs Date Time Temp Pulse Resp B/P B/P Pulse O2 O2 Flow FiO2 Mean Ox Delivery Rate 01/06 0800 Room Air 01/06 0736 90 91/57 01/06 0647 98.9 88 18 70/00 96 01/05 2253 97.8 92 20 76/00 95 Room Air 01/05 1412 98 22 97/51 99 Room Air 01/05 1345 98.8 90 20 80/46 94 Room Air Intake & Output 01/06 1600 01/06 0800 01/06 0000 Intake Total 600 200 Output Total Balance 600 200 Intake, IV 500 Intake, Oral 100 200 Patient 190 lb Weight Weight Bed scale Measurement Method CT abdomen and pelvis January 05 1. Small bilateral pleural effusions, right greater than left. 2. Right middle lobe atelectasis, similar to the previous examination. 3. Large volume of abdominal and pelvic ascites. This is new when compared with the prior study. 4. No evidence of bowel obstruction. 5. Exophytic mass arising from the upper pole of the right kidney.
[2018-01-06 14:11] VITALS: BP 92/60
--- NOTE | 2018-01-06 17:58 | Cons- Urology ---
General Information and HPI Consulting Request Date of Consult: 01/06/18 Requested By: Ashleigh ELDRIDGE,Patricia Reason for Consult: R renal mass Source of Information: patient, old records Exam Limitations: no limitations History of Present Illness: This patient has multiple medical conditions including CAD, Cardiomyopathy, PVD, and ESRD on dialysis. He presented to the ER with inablility to ambulate and urgent need for dialysis. He also had fallen at home. Non contrast CT in the ER showed no hydronephrosis, extensive renal vascular calcifications, bilateral renal cysts and a 5 cm R upper pole renal mass of mixed density. He makes very little urine and has not had any gross hematuria. Old imaging was reviewed and the R upper pole lesion has been present for years. In 09/2017 he had a non contrast CT and a non contrast MRI. The R upper pole mass was felt to be a hemorrhagic cyst Allergies/Medications Allergies: Coded Allergies: morphine (Mild, LOOPY 01/18/17) hydromorphone (DEPRESSED RESPIRATIONS 01/18/17) Home Med List: Alprazolam (Xanax) 0.5 MG TABLET 1 TAB PO BID PRN ANXIETY Aspirin (Ecotrin*) 81 MG TABLET.DR 1 TAB PO DAILY HEART HEALTH (Reported) Calcium Acetate 667 MG CAPSULE 2 CAP PO TID UNKNOWN (Reported) Clopidogrel Bisulfate (Plavix) 75 MG TABLET 75 MG PO DAILY ANTIPLATELET Folic Acid 1 MG TABLET 1 TAB PO DAILY SUPPLEMENT (Reported) Furosemide (Lasix) 80 MG TABLET 1 TAB PO DAILY WATER RETENTION (Reported) Hydrocodone/Acetaminophen (Hydrocodon-Acetaminophen 5-325) 5 MG-325 MG TABLET 1 TAB PO Q8 PRN PAIN (Reported) Hydroxyzine Hydrochloride (Atarax) 25 MG TAB 1 TAB PO TID PRN ITCHING ONLY 10 PILLS. Insulin Aspart (Novolog) 100 UNIT/ML CARTRIDGE 0 SC TIDAC DIABETES BEFORE MEALS... Blood Insulin Sugar Units <80 0 81-150 3 151-200 4 201-250 6 251-300 7 301-350 8 351-400 9 >400 10 Call Doctor Isosorbide Mononitrate (Isosorbide Mononitrate ER) 60 MG TAB.ER.24H 1 TAB PO DAILY CAD Levothyroxine Sodium 200 MCG TABLET 1 TAB PO DAILY AC THYROID (Reported) Losartan Potassium 50 MG TABLET 50 MG PO DAILY high BP Metoprolol Succinate 25 MG TAB 1 TAB PO DAILY HEART (Reported) Nitroglycerin 0.4 MG TAB.SUBL 1 TAB SL DAILY PRN CHEST PAIN (Reported) 1st sign of attack; may repeat every 5 minutes until relief; if pain persists after 3 tablets in 15 minutes, prompt medical att Ramelteon (Rozerem) 8 MG TABLET 1 TAB PO AT BEDTIME SLEEP HELP Sertraline HCl (Zoloft) 100 MG TABLET 1.5 TAB PO DAILY ANXIETY (Reported) Sevelamer Carbonate (Renvela) 800 MG TABLET 2 TAB PO TIDAC ERSD (Reported) Trazodone HCl 150 MG TABLET 1 TAB PO QPM SLEEP (Reported) Past History Medical History Neurological: proximal muscle pain & weakness UE/LE B/L EENT: NONE Cardiovascular: CAD, hypertension, hyperlipidemia, PVD, 6 CARDIAC STENTS Respiratory: NONE (on O2-2L), COPD Gastrointestinal: hx colon polyps Hepatic: cholelithiasis (vs. 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 FH: heart disease MOTHER, , Age 85; Cause: ASHD (arteriosclerotic heart disease). Relation not specified for: FH: diabetes mellitus FH: hypertension Psychosocial History Where Do You Live? Home Who Do You Live With? girlfriend Services at Home: Home Health Aide, Nursing, Oxygen, Physical Therapy Primary Language: Syriac Smoking Status: Former Smoker (quit>5yrs) ETOH Use: heavy use, quitted 25 years ago Illicit Drug Use: denies illicit drug use Living Will? 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 Ambulation: independent (and/or rolling walker), cane IADLs Independent: shopping, housework, finances, food prep, telephone, transportation , medication admin. Employment History Retired? yes Exam & Diagnostic Data Vital Signs and I&O Vital Signs Date Time Temp Pulse Resp B/P B/P Pulse O2 O2 Flow FiO2 Mean Ox Delivery Rate 01/06 1411 98.3 82 12 92/60 93 Room Air 01/06 0800 Room Air 01/06 0736 90 91/57 01/06 0647 98.9 88 18 70/00 96 01/05 2253 97.8 92 20 76/00 95 Room Air Intake & Output 01/06 0800 01/06 0000 01/05 1600 01/05 0801/05 0000 Intake Total 150 087 481 6801 Output Total Balance 150 422 272 7227 Intake, IV 90 500 3000 Intake, Oral 60 100 200 Patient 190 lb 170 lb Weight Weight Bed scale Reported by Patient Measurement Method Lying in bed comfortably Back: No CVA tenderness Abd: soft and non tender Laboratory Tests 01/06 01/06 01/06 01/06 01/05 1225 1225 0400 0400 2205 Chemistry Sodium (137 - 145 mmol/L) 138 137 Potassium (3.5 - 5.1 mmol/L) 4.4 3.9 Chloride (98 - 107 mmol/L) 96 L 97 L Carbon Dioxide (22 - 30 mmol/L) 23 24 Anion Gap (5 - 16) 20 H 16 BUN (9 - 20 mg/dL) 29 H 24 H Creatinine (0.7 - 1.2 mg/dL) 3.3 H 2.8 H Estimated GFR (>60 ml/min) 19 L 23 L BUN/Creatinine Ratio (7 - 25 %) 8.8 8.6 Lactic Acid (0.7 - 2.1 mmol/L) 3.5 H Calcium (8.4 - 10.2 mg/dL) 7.7 L Phosphorus (2.5 - 4.5 mg/dL) 5.6 H 4.0 Magnesium (1.6 - 2.3 mg/dL) 1.8 Total Bilirubin (0.2 - 1.3 mg/dL) 5.5 H Direct Bilirubin (< 0.4 mg/dL) 4.8 H AST (17 - 59 U/L) 50 ALT (21 - 72 U/L) 36 Alkaline Phosphatase (< 127 U/L) 376 H Creatine Kinase (55 - 170 U/L) 135 Troponin I (<0.11 ng/ml) 1.31 *H 0.68 *H Vei-Z-Nljmiugejac Pept (<125 pg/mL) 07743.0 H Total Protein (6.3 - 8.2 g/dL) 5.8 L Albumin (3.5 - 5.0 g/dL) 3.0 L Amylase (30 - 110 U/L) < 30 L Lipase (23 - 300 U/L) 01/05 1856 Chemistry Sodium (137 - 145 mmol/L) 139 Potassium (3.5 - 5.1 mmol/L) 2.2 *L Chloride (98 - 107 mmol/L) 98 Carbon Dioxide (22 - 30 mmol/L) 31 H Anion Gap (5 - 16) 10 BUN (9 - 20 mg/dL) < 2 L Creatinine (0.7 - 1.2 mg/dL) 0.4 L Estimated GFR (>60 ml/min) > 60 BUN/Creatinine Ratio (7 - 25 %) 5.0 L Calcium (8.4 - 10.2 mg/dL) 8.6 Phosphorus (2.5 - 4.5 mg/dL) 0.6 *L Magnesium (1.6 - 2.3 mg/dL) 1.8 Troponin I (<0.11 ng/ml) Cancelled 0.31 *H Assessment/Plan Assessment/Plan Imp: 1. R upper pole renal mass felt to be a hemorrhagic cyst based on comparison to previous imaging. This would be a benign lesion 2. Bilateral renal cyst 3. ESRD 4. Multiple medical conditions Plan: 1. No intervention for R upper pole hemorrhagic renal cyst 2. This could be followed with serial imaging in the future Consult Acknowledgment - Thank you for your consult request.
[2018-01-06 23:58] VITALS: BP 74/00
[2018-01-07 01:30] VITALS: BP 90/58
[2018-01-07 06:50] VITALS: BP 92/64
[2018-01-07 07:47] LABS: ABSOLUTE BASOPHIL COUNT 0 /CUMM (0.0-0.2); ABSOLUTE EOSINOPHIL COUNT 0 /CUMM (0.0-0.7); ABSOLUTE GRANULOCYTE CT 9.2 /CUMM (1.4-6.5); ABSOLUTE MONOCYTE COUNT 0.8 /CUMM (0.10-0.60); BASOPHIL % 0 % (0.0-2.0); EOSINOPHIL % 0.1 % (0-5); GRANULOCYTE % 84.2 % (42.2-75.2); MEAN CORPUSCULAR HGB 29.9 PG (27.0-31.0); MEAN CORPUSCULAR HGB CONC 32.5 G/DL (33.0-37.0); MEAN CORPUSCULAR VOLUME 92.2 FL (80.0-94.0); MEAN PLATELET VOLUME 8.9 FL (7.4-10.4); PLATELET COUNT 181 /CUMM (130-400); RBC DISTRIBUTION WIDTH 19.8 % (11.5-14.5); RED BLOOD CELL CT 4.12 /CUMM (4.70-6.10)
[2018-01-07 09:27] LABS: ABSOLUTE BASOPHIL COUNT 0 /CUMM (0.0-0.2); ABSOLUTE EOSINOPHIL COUNT 0.1 /CUMM (0.0-0.7); ABSOLUTE GRANULOCYTE CT 8.5 /CUMM (1.4-6.5); ABSOLUTE LYMPH COUNT 0.7 /CUMM (1.2-3.4); ABSOLUTE MONOCYTE COUNT 0.7 /CUMM (0.10-0.60); BASOPHIL % 0 % (0.0-2.0); EOSINOPHIL % 0.6 % (0-5); GRANULOCYTE % 85.4 % (42.2-75.2); HEMATOCRIT 37.3 % (42-52); MEAN CORPUSCULAR HGB 29.5 PG (27.0-31.0); MEAN CORPUSCULAR HGB CONC 32.3 G/DL (33.0-37.0); MEAN CORPUSCULAR VOLUME 91.2 FL (80.0-94.0); MEAN PLATELET VOLUME 8.6 FL (7.4-10.4); PLATELET COUNT 206 /CUMM (130-400); RBC DISTRIBUTION WIDTH 19.7 % (11.5-14.5); RED BLOOD CELL CT 4.09 /CUMM (4.70-6.10)
[2018-01-07 10:03] LABS: WHITE BLOOD CELL COUNT 10.9 /CUMM (4.8-10.8)
--- NOTE | 2018-01-07 11:40 | PN- Att Addend ---
Attending Addendum Attending Brief Note Patient seen and examined. He is undergoing hemodialysis morning Plan of care discussed with the medical team and the patient. Available lab work and radiology test reports were reviewed. He denies any difficulty breathing or chest pain or abdominal pain. He feels tired this morning. Denies any fever chills. Exam: General: Patient awake but appears sleepy; oriented with mild distress due to pain in the knee CVS: S1 plus S2 without any murmur or gallops Chest: Few scattered crepitation without any wheeze. There is no respiratory distress. 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 Pulses are nonpalpable Assessment and plan * Persistently elevated troponin level- patient last troponin on December 24 was 0.14. I believe this is due to his chronic renal insufficiency; troponin level has increased. Patient being followed by cardiology. Plan is obtain echocardiogram given persistent elevation of troponin above his baseline * Generalized body aches and pain more pronounced in lower extremities, likely attributed to ischemic peripheral vascular disease - patient will need the vascular surgery evaluation such as angiogram which is planned for next Tuesday. [facility] surgery note reviewed * Ascites and elevated bilirubin- most likely from CHF given the severe elevation of BNP and presence of pleural fluid as well as ascites. prior echo shows ejection fraction 30-35%. Plans for diagnostic and therapeutic ascitic tap. * Hypocalcemia and hyperphosphatemia- possibly due to noncompliance with medications * Gap acidosis- due to missed dialysis, patient underwent hemodialysis yesterday. Improved * End-stage renal disease-patient undergoing hemodialysis today * Exophytic mass right kidney- as per urology evaluation this is considered to be a benign hemorrhagic cyst and no further evaluation is needed as per urology Current Medications Sig/Julissa Start time Last Medication Dose Route Stop Time Status Admin Alprazolam 0.5 MG BID PRN 01/05 1700 AC 01/06 PO 01/12 1659 2121 Aspirin Buffered 81 MG DAILY 01/06 1000 AC PO Calcium Acetate 1,334 MG TID 01/05 2200 AC 01/06 PO 2122 Clopidogrel Bisulfate 75 MG DAILY 01/06 1000 AC PO Epoetin [place] 4,000 UNIT TuThSa PRN 01/05 1445 AC IV Folic Acid 1 MG DAILY 01/06 1000 AC PO Heparin Sodium 5,000 UNIT Q8 01/05 2200 AC 01/07 (Porcine) SC 0524 Hydrocodone Bitart/ 1 TAB Q8P PRN 01/05 1930 AC 01/07 Acetaminophen PO 1052 Levothyroxine Sodium 0.2 MG DAILY AC 01/06 0700 AC 01/07 PO 0525 Metoclopramide HCl 10 MG Q6P PRN 01/06 0830 AC 01/06 IV 1421 Pantoprazole Sodium 40 MG DAILY 01/06 1000 AC 01/06 IV 1204 Patient Medication 1 ED ONE ONE 01/06 1230 DC 01/06 Teaching ED 01/06 1231 1252 Ramelteon 8 MG AT BEDTIME 01/05 2200 AC 01/06 PO 2121 Sertraline HCl 150 MG DAILY 01/06 1000 AC PO Sevelamer Carbonate 1,600 MG TIDAC 01/06 1200 AC 01/06 PO 1715 Sodium Chloride 250 ML BOLUS ONE 01/07 0015 DC 01/07 IV 01/07 0114 0018 Trazodone HCl 150 MG QPM 01/05 220 AC 01/06 PO 2121 Laboratory Tests 01/07/18 1115: Troponin I Pending 01/07/18 0800: Anion Gap 15, Estimated GFR 13 L, BUN/Creatinine Ratio 10.7, Glucose 140 H, Calcium 7.2 L, CBC w Diff MAN DIFF ORDERED, RBC 4.09 L, MCV 91.2, MCH 29.5, MCHC 32.3 L, RDW 19.7 H, MPV 8.6, Gran % 85.4 H, Lymphocytes % 6.9 L, Monocytes % 7.1, Eosinophils % 0.6, Basophils % 0, Absolute Granulocytes 8.5 H, Segmented Neutrophils 83 H, Band Neutrophils 5, Absolute Lymphocytes 0.7 L, Lymphocytes 7 L, Monocytes 5, Absolute Monocytes 0.7 H, Absolute Eosinophils 0.1, Absolute Basophils 0, Platelet Estimate VERIFIED BY SMEAR, Polychromasia 1+ , Anisocytosis 1+ 01/07/18 0630: Lactic Acid 2.0, CBC w Diff NO MAN DIFF REQ, RBC 4.12 L, MCV 92.2, MCH 29.9, MCHC 32.5 L, RDW 19.8 H, MPV 8.9, Gran % 84.2 H, Lymphocytes % 8.7 L, Monocytes % 7.0, Eosinophils % 0.1, Basophils % 0, Absolute Granulocytes 9.2 H, Absolute Lymphocytes 1.0 L, Absolute Monocytes 0.8 H, Absolute Eosinophils 0, Absolute Basophils 0 01/07/18 0340: Troponin I 2.53 *H 01/06/181999: Lactic Acid 2.7 H, Troponin I 2.28 *H 01/06/18 1225: Troponin I 1.31 *H, Rgk-C-Hctnihnimer Pept 95427.0 H 01/06/18 1225: Lactic Acid 3.5 H 01/06/18 0400: Troponin I 0.68 *H 01/06/18 0400: Anion Gap 20 H, Estimated GFR 19 L, BUN/Creatinine Ratio 8.8, Calcium 7.7 L, Phosphorus 5.6 H, Magnesium 1.8, Total Bilirubin 5.5 H, Direct Bilirubin 4.8 H, AST 50, ALT 36, Alkaline Phosphatase 376 H, Creatine Kinase 135, Total Protein 5.8 L, Albumin 3.0 L, Amylase < 30 L, Lipase 25 01/05/18 2205: Anion Gap 16, Estimated GFR 23 L, BUN/Creatinine Ratio 8.6, Phosphorus 4.0 01/05/181999: Troponin I Cancelled 01/05/18 1856: Anion Gap 10, Estimated GFR > 60, BUN/Creatinine Ratio 5.0 L, Calcium 8.6, Phosphorus 0.6 *L, Magnesium 1.8, Troponin I 0.31 *H 01/05/18 1546: Sodium Cancelled, Potassium Cancelled, Chloride Cancelled, Carbon Dioxide Cancelled, Anion Gap Cancelled, BUN Cancelled, Creatinine Cancelled, BUN/ Creatinine Ratio Cancelled, Phosphorus Cancelled 01/05/18 1450: Magnesium 1.5 L, Amylase < 30 L, Lipase 37 01/05/18 1140: ESR Westergren 20 H 01/05/18 1122: Anion Gap 22 H, Estimated GFR 10 L, BUN/Creatinine Ratio 10.2, Glucose 196 H, Calcium 7.4 L, Phosphorus 6.4 H, Total Bilirubin 3.4 H, AST 29, ALT 35, Alkaline Phosphatase 431 H, Troponin I 0.17 *H, C-Reactive Prot, Quant 3.6 H, Total Protein 6.3, Albumin 3.5, Globulin 2.8, Albumin/Globulin Ratio 1.3, CBC w Diff NO MAN DIFF REQ, RBC 4.12 L, MCV 89.9, MCH 30.0, MCHC 33.4, RDW 18.2 H, MPV 8.3, Gran % 91.0 H, Lymphocytes % 3.4 L, Monocytes % 5.3, Eosinophils % 0, Basophils % 0.3, Absolute Granulocytes 8.6 H, Absolute Lymphocytes 0.3 L, Absolute Monocytes 0.5, Absolute Eosinophils 0, Absolute Basophils 0 Microbiology 01/06 0604 URINE ROUT: Urine Culture - COLB 01/05 1140 BLOOD: Blood Culture - RES 01/05 1126 BLOOD: Blood Culture - RES Vital Signs Date Time Temp Pulse Resp B/P B/P Pulse O2 O2 Flow FiO2 Mean Ox Delivery Rate 01/07 0650 98.0 93 20 92/64 92 01/07 0130 90/58 01/06 2358 74/00 01/06 2338 98.0 91 18 94 Room Air 01/06 1411 98.3 82 12 92/60 93 Room Air Intake & Output 01/07 1600 01/07 0800 01/07 0000 Intake Total 200 300 Output Total Balance 200 300 Intake, Oral 200 300 Patient 190 lb 191 lb Weight Weight Bed scale Measurement Method
--- NOTE | 2018-01-07 13:12 | PN- Cardiology ---
Subjective Subjective: Patient seen during dialysis. Continues to complain of significant pain in his right leg. Continues to deny any shortness of breath, chest pain, or palpitations. Objective Vital Signs and I&Os Vital Signs Date Time Temp Pulse Resp B/P B/P Pulse O2 O2 Flow FiO2 Mean Ox Delivery Rate 01/07 0650 98.0 93 20 92/64 92 01/07 0130 90/58 01/06 2358 74/00 01/06 2338 98.0 91 18 94 Room Air 01/06 1411 98.3 82 12 92/60 93 Room Air Intake & Output 01/07 1600 01/07 0800 01/07 0000 01/06 1600 01/06 0800 01/06 0000 Intake Total 200 300 150 600 200 Output Total Balance 200 300 150 600 200 Intake, IV 90 500 Intake, Oral 200 300 60 100 200 Patient 190 lb 191 lb 190 lb Weight Weight Bed scale Bed scale Measurement Method Physical Exam: General: no apparent distress. Eyes: No obvious scleral icterus. HEENT: No jugular venous distention or abnormal jugular venous pulsations. Cardiovascular: Normal intensity S1/S2. Regular Respiratory: No rales or rhonchi, mildly decreased air entry at the bases Abdomen: No rebound tenderness; firm Musculoskeletal: Right lower extremity erythema/edema Skin: Warm Neurologic: No gross focal deficits noted. Current Medications: Current Medications Sig/Julissa Start time Last Medication Dose Route Stop Time Status Admin Alprazolam 0.5 MG BID PRN 01/05 1700 AC 01/06 PO 01/12 1659 2121 Aspirin Buffered 81 MG DAILY 01/06 1000 AC PO Calcium Acetate 1,334 MG TID 01/05 2200 AC 01/06 PO 2122 Clopidogrel Bisulfate 75 MG DAILY 01/06 1000 AC PO Epoetin [place] 4,000 UNIT TuThSa PRN 01/05 1445 AC IV Folic Acid 1 MG DAILY 01/06 1000 AC PO Heparin Sodium 5,000 UNIT Q8 01/05 2200 AC 01/07 (Porcine) SC 0524 Hydrocodone Bitart/ 1 TAB Q8P PRN 01/05 1930 AC 01/07 Acetaminophen PO 1052 Levothyroxine Sodium 0.2 MG DAILY AC 01/06 0700 AC 01/07 PO 0525 Metoclopramide HCl 10 MG Q6P PRN 01/06 0830 AC 01/06 IV 1421 Pantoprazole Sodium 40 MG DAILY 01/06 1000 AC 01/06 IV 1204 Ramelteon 8 MG AT BEDTIME 01/05 2200 AC 01/06 PO 212 Sertraline HCl 150 MG DAILY 01/06 1000 AC PO Sevelamer Carbonate 1,600 MG TIDAC 01/06 1200 AC 01/06 PO 1715 Sodium Chloride 250 ML BOLUS ONE 01/07 0015 DC 01/07 IV 01/07 0114 0018 Trazodone HCl 150 MG QPM 01/05 2200 AC 01/06 PO 212 Results Last 48 Hrs of Labs/Mics: Laboratory Tests 01/07/18 1115: Troponin I 2.78 *H 01/07/18 0800: Anion Gap 15, Estimated GFR 13 L, BUN/Creatinine Ratio 10.7, Glucose 140 H, Calcium 7.2 L, CBC w Diff MAN DIFF ORDERED, RBC 4.09 L, MCV 91.2, MCH 29.5, MCHC 32.3 L, RDW 19.7 H, MPV 8.6, Gran % 85.4 H, Lymphocytes % 6.9 L, Monocytes % 7.1, Eosinophils % 0.6, Basophils % 0, Absolute Granulocytes 8.5 H, Segmented Neutrophils 83 H, Band Neutrophils 5, Absolute Lymphocytes 0.7 L, Lymphocytes 7 L, Monocytes 5, Absolute Monocytes 0.7 H, Absolute Eosinophils 0.1, Absolute Basophils 0, Platelet Estimate VERIFIED BY SMEAR, Polychromasia 1+ , Anisocytosis 1+ 01/07/18 0630: Lactic Acid 2.0, CBC w Diff NO MAN DIFF REQ, RBC 4.12 L, MCV 92.2, MCH 29.9, MCHC 32.5 L, RDW 19.8 H, MPV 8.9, Gran % 84.2 H, Lymphocytes % 8.7 L, Monocytes % 7.0, Eosinophils % 0.1, Basophils % 0, Absolute Granulocytes 9.2 H, Absolute Lymphocytes 1.0 L, Absolute Monocytes 0.8 H, Absolute Eosinophils 0, Absolute Basophils 0 01/07/18 0340: Troponin I 2.53 *H 01/06/18 2000: Lactic Acid 2.7 H, Troponin I 2.28 *H 01/06/18 1225: Troponin I 1.31 *H, Hxw-V-Oqtwuwjzuge Pept 93335.0 H 01/06/18 1225: Lactic Acid 3.5 H 01/06/18 0400: Troponin I 0.68 *H 01/06/18 0400: Anion Gap 20 H, Estimated GFR 19 L, BUN/Creatinine Ratio 8.8, Calcium 7.7 L, Phosphorus 5.6 H, Magnesium 1.8, Total Bilirubin 5.5 H, Direct Bilirubin 4.8 H, AST 50, ALT 36, Alkaline Phosphatase 376 H, Creatine Kinase 135, Total Protein 5.8 L, Albumin 3.0 L, Amylase < 30 L, Lipase 25 01/05/18 2205: Anion Gap 16, Estimated GFR 23 L, BUN/Creatinine Ratio 8.6, Phosphorus 4.0 01/05/181999: Troponin I Cancelled 01/05/18 1856: Anion Gap 10, Estimated GFR > 60, BUN/Creatinine Ratio 5.0 L, Calcium 8.6, Phosphorus 0.6 *L, Magnesium 1.8, Troponin I 0.31 *H 01/05/18 1546: Sodium Cancelled, Potassium Cancelled, Chloride Cancelled, Carbon Dioxide Cancelled, Anion Gap Cancelled, BUN Cancelled, Creatinine Cancelled, BUN/ Creatinine Ratio Cancelled, Phosphorus Cancelled 01/05/18 1450: Magnesium 1.5 L, Amylase < 30 L, Lipase 37 Recent Imaging Studies: Telemetry tracings were personally reviewed and shows sinus rhythm with [address]: 1. Small bilateral pleural effusions, right greater than left. 2. Right middle lobe atelectasis, similar to the previous examination. 3. Large volume of abdominal and pelvic ascites. This is new when compared with the prior study. 4. No evidence of bowel obstruction. 5. Exophytic mass arising from the upper pole of the right kidney. Assessment/Plan Assessment/Plan 1. Elevated troponins unlikely due to acute coronary syndrome 2. Generalized pain 3. Chronic issues with lower extremity arterial and venous insufficiency/PAD/ PVI 4. End-stage renal disease on hemodialysis 5. Elevated bilirubin 6. Abdominal ascites 7. History of ischemic cardiomyopathy Patient with elevated troponins but continues to deny any chest pain or dyspnea. Repeat echocardiogram is pending. Dialysis schedule per renal; blood pressure remains borderline so would not restart his anti-myopathic regimen; continue on dual antiplatelets. Continue to follow troponins until they begin to decline. Would have a low threshold for ICU transfer if blood pressure further deteriorates. James Romero MD FACC Continue telemetry? Yes
[2018-01-07 14:58] VITALS: BP 90/58
--- NOTE | 2018-01-07 15:51 | PN- Nephrology ---
Assessment/Plan Nephrology Assessment: ESRD. ascites, anasarca. Dialyzed but fay able to remove about 1L due to low BP. Suggestion: . Subjective Subjective: Pt comfortabl. edema fluid removal limited by BP. Objective Vital Signs and I&Os M NAD 90/58 97 Lungs clear Cor RRR Abd soft pos ascites Ext 3+edema Results Pertinent Lab Results: Laboratory Tests 01/07 01/07 1115 0800 Chemistry Sodium (137 - 145 mmol/L) 133 L Potassium (3.5 - 5.1 mmol/L) 4.9 Chloride (98 - 107 mmol/L) 94 L Carbon Dioxide (22 - 30 mmol/L) 23 Anion Gap (5 - 16) 15 BUN (9 - 20 mg/dL) 48 H Creatinine (0.7 - 1.2 mg/dL) 4.5 H Estimated GFR (>60 ml/min) 13 L BUN/Creatinine Ratio (7 - 25 %) 10.7 Glucose (65 - 99 mg/dL) 140 H Calcium (8.4 - 10.2 mg/dL) 7.2 L Troponin I (<0.11 ng/ml) 2.78 *H Hematology CBC w Diff MAN DIFF ORDERED WBC (4.8 - 10.8 /CUMM) 10.0 RBC (4.70 - 6.10 /CUMM) 4.09 L Hgb (14.0 - 18.0 G/DL) 12.1 L Hct (42 - 52 %) 37.3 L MCV (80.0 - 94.0 FL) 91.2 MCH (27.0 - 31.0 PG) 29.5 MCHC (33.0 - 37.0 G/DL) 32.3 L RDW (11.5 - 14.5 %) 19.7 H Plt Count (130 - 400 /CUMM) 206 MPV (7.4 - 10.4 FL) 8.6 Gran % (42.2 - 75.2 %) 85.4 H Lymphocytes % (20.5 - 51.1 %) 6.9 L Monocytes % (1.7 - 9.3 %) 7.1 Eosinophils % (0 - 5 %) 0.6 Basophils % (0.0 - 2.0 %) 0 Absolute Granulocytes (1.4 - 6.5 /CUMM) 8.5 H Segmented Neutrophils (42.2 - 75.2 %) 83 H Band Neutrophils (0.0 - 5.0 %) 5 Absolute Lymphocytes (1.2 - 3.4 /CUMM) 0.7 L Lymphocytes (20.5 - 51.1 %) 7 L Monocytes (1.7 - 9.3 %) 5 Absolute Monocytes (0.10 - 0.60 /CUMM) 0.7 H Absolute Eosinophils (0.0 - 0.7 /CUMM) 0.1 Absolute Basophils (0.0 - 0.2 /CUMM) 0 Platelet Estimate (ADEQUATE) VERIFIED BY SMEAR Polychromasia 1+ Anisocytosis 1+ 01/07 01/07 01/06 0630 0340 1999 Chemistry Lactic Acid (0.7 - 2.1 mmol/L) 2.0 2.7 H Troponin I (<0.11 ng/ml) 2.53 *H 2.28 *H Hematology CBC w Diff NO MAN DIFF REQ WBC (4.8 - 10.8 /CUMM) 10.9 H RBC (4.70 - 6.10 /CUMM) 4.12 L Hgb (14.0 - 18.0 G/DL) 12.3 L Hct (42 - 52 %) 38.0 L MCV (80.0 - 94.0 FL) 92.2 MCH (27.0 - 31.0 PG) 29.9 MCHC (33.0 - 37.0 G/DL) 32.5 L RDW (11.5 - 14.5 %) 19.8 H Plt Count (130 - 400 /CUMM) 181 MPV (7.4 - 10.4 FL) 8.9 Gran % (42.2 - 75.2 %) 84.2 H Lymphocytes % (20.5 - 51.1 %) 8.7 L Monocytes % (1.7 - 9.3 %) 7.0 Eosinophils % (0 - 5 %) 0.1 Basophils % (0.0 - 2.0 %) 0 Absolute Granulocytes (1.4 - 6.5 /CUMM) 9.2 H Absolute Lymphocytes (1.2 - 3.4 /CUMM) 1.0 L Absolute Monocytes (0.10 - 0.60 /CUMM) 0.8 H Absolute Eosinophils (0.0 - 0.7 /CUMM) 0 Absolute Basophils (0.0 - 0.2 /CUMM) 0 01/06 01/06 01/06 01/06 1225 1225 0604 0400 Chemistry Lactic Acid (0.7 - 2.1 mmol/L) 3.5 H Troponin I (<0.11 ng/ml) 1.31 *H 0.68 *H [id number] Pept (<125 pg/mL) 52611.0 H Urines Urine Color Cancelled Urine Clarity Cancelled Urine pH Cancelled Ur Specific [place] Cancelled Urine Protein Cancelled Urine Ketones Cancelled Urine Nitrite Cancelled Urine Bilirubin Cancelled Urine Urobilinogen Cancelled Ur Leukocyte Esterase Cancelled Ur Microscopic Cancelled Urine Hemoglobin Cancelled Urine Glucose Cancelled 01/06 01/05 01/05 01/05 01/05 0400 2205 9310 1856 1546 Chemistry Sodium (137 - 145 mmol/L) 138 137 139 Cancelled Potassium (3.5 - 5.1 mmol/L) 4.4 3.9 2.2 *L Cancelled Chloride (98 - 107 mmol/L) 96 L 97 L 98 Cancelled Carbon Dioxide (22 - 30 mmol/L) 23 24 31 H Cancelled Anion Gap (5 - 16) 20 H 16 10 Cancelled BUN (9 - 20 mg/dL) 29 H 24 H < 2 L Cancelled Creatinine (0.7 - 1.2 mg/dL) 3.3 H 2.8 H 0.4 L Cancelled Estimated GFR (>60 ml/min) 19 L 23 L > 60 BUN/Creatinine Ratio (7 - 25 %) 8.8 8.6 5.0 L Cancelled Calcium (8.4 - 10.2 mg/dL) 7.7 L 8.6 Phosphorus (2.5 - 4.5 mg/dL) 5.6 H 4.0 0.6 *L Cancelled Magnesium (1.6 - 2.3 mg/dL) 1.8 1.8 Total Bilirubin (0.2 - 1.3 mg/dL) 5.5 H Direct Bilirubin (< 0.4 mg/dL) 4.8 H AST (17 - 59 U/L) 50 ALT (21 - 72 U/L) 36 Alkaline Phosphatase (< 127 U/L) 376 H Creatine Kinase (55 - 170 U/L) 135 Troponin I (<0.11 ng/ml) Cancelled 0.31 *H Total Protein (6.3 - 8.2 g/dL) 5.8 L Albumin (3.5 - 5.0 g/dL) 3.0 L Amylase (30 - 110 U/L) < 30 L Lipase (23 - 300 U/L) 01/05 1450 1140 1122 Chemistry Sodium (137 - 145 mmol/L) 134 L Potassium (3.5 - 5.1 mmol/L) 5.1 Chloride (98 - 107 mmol/L) 93 L Carbon Dioxide (22 - 30 mmol/L) 19 L Anion Gap (5 - 16) 22 H BUN (9 - 20 mg/dL) 57 H Creatinine (0.7 - 1.2 mg/dL) 5.6 *H Estimated GFR (>60 ml/min) 10 L BUN/Creatinine Ratio (7 - 25 %) 10.2 Glucose (65 - 99 mg/dL) 196 H Calcium (8.4 - 10.2 mg/dL) 7.4 L Phosphorus (2.5 - 4.5 mg/dL) 6.4 H Magnesium (1.6 - 2.3 mg/dL) 1.5 L Total Bilirubin (0.2 - 1.3 mg/dL) 3.4 H AST (17 - 59 U/L) 29 ALT (21 - 72 U/L) 35 Alkaline Phosphatase (< 127 U/L) 431 H Troponin I (<0.11 ng/ml) 0.17 *H C-Reactive Prot, Quant (<1.0 mg/dL) 3.6 H Total Protein (6.3 - 8.2 g/dL) 6.3 Albumin (3.5 - 5.0 g/dL) 3.5 Globulin (1.9 - 4.2 gm/dL) 2.8 Albumin/Globulin Ratio (1.1 - 2.2 %) 1.3 Amylase (30 - 110 U/L) < 30 L Lipase (23 - 300 U/L) 37 Hematology CBC w Diff NO MAN DIFF REQ WBC (4.8 - 10.8 /CUMM) 9.5 RBC (4.70 - 6.10 /CUMM) 4.12 L Hgb (14.0 - 18.0 G/DL) 12.4 L Hct (42 - 52 %) 37.0 L MCV (80.0 - 94.0 FL) 89.9 MCH (27.0 - 31.0 PG) 30.0 MCHC (33.0 - 37.0 G/DL) 33.4 RDW (11.5 - 14.5 %) 18.2 H Plt Count (130 - 400 /CUMM) 181 MPV (7.4 - 10.4 FL) 8.3 Gran % (42.2 - 75.2 %) 91.0 H Lymphocytes % (20.5 - 51.1 %) 3.4 L Monocytes % (1.7 - 9.3 %) 5.3 Eosinophils % (0 - 5 %) 0 Basophils % (0.0 - 2.0 %) 0.3 Absolute Granulocytes (1.4 - 6.5 /CUMM) 8.6 H Absolute Lymphocytes (1.2 - 3.4 /CUMM) 0.3 L Absolute Monocytes (0.10 - 0.60 /CUMM) 0.5 Absolute Eosinophils (0.0 - 0.7 /CUMM) 0 Absolute Basophils (0.0 - 0.2 /CUMM) 0 ESR Westergren (0 - 10 MM) 20 H
--- NOTE | 2018-01-07 16:16 | ULTRASOUND REPORT ---
EXAMINATION: RIGHT LOWER EXTREMITY VENOUS DOPPLER ULTRASOUND CLINICAL INFORMATION: Pain and swelling in the right lower extremity. Discoloration. Evaluate for DVT. COMPARISON: Bilateral lower extremity venous Doppler ultrasound dated 01/05/2018. TECHNIQUE: Doppler spectral analysis and color flow Doppler imaging was performed of the right lower extremity. Compression and augmentation maneuvers were performed. FINDINGS: Evaluation is limited due to patient's inability to tolerate graded compression ultrasound. The proximal and mid femoral vein are normally compressible and show normal color flow. The patient was unable to tolerate compression of the distal femoral vein. However, normal color flow is demonstrated with color Doppler imaging within the distal femoral vein. The right common femoral vein, greater saphenous vein takeoff, and popliteal vein are normally compressible with normal augmentation responses and phasic changes seen with Doppler imaging. The proximal peroneal and posterior tibial veins are patent as well. There is a 2.3 x 0.8 x 1.3 cm cyst in the right popliteal fossa, previously measuring 2.0 x 1.1 x 1.6 cm. IMPRESSION: 1. Slightly limited evaluation, but no evidence of deep venous thrombosis in the right lower extremity is seen. 2. Small popliteal cyst.
--- NOTE | 2018-01-07 18:55 | Cons- General Surgery ---
Tony Mahan 01/07/18 1809: General Information and HPI Consulting Request Date of Consult: 01/07/18 Requested By: Ashleigh ELDRIDGE,Patricia Reason for Consult: R/o necrotizing fascitis Source of Information: patient Exam Limitations: poor historian History of Present Illness: This is a 68 year-old male with multiple comorbidities, including ESRD on hemodialysis with left arm avf, CAD s/p 6 stents, COPD on home oxygen, hypertension, hyperlipidemia, PVD, chronic back pain and diabetes who presented to the ER generalized pain, elevated troponins and electrolyte imbalances requiring immediate dialysis. Patient reports pain in his right inner thigh for the past 5 days. Pain is worse with movement and touch. After recieving dialysis today, he had worsening right inner thigh pain and redness has expanded in distribution of redness. Surgery contacted to rule to necrotizing fascitis. Currently, patient reports minimal improvement with Morphine. He reports associated nausea, vomiting clear material over the past 5 days, last episode was last night and dry heaves. Denies fever, chills. Allergies/Medications Allergies: Coded Allergies: morphine (Mild, LOOPY 01/18/17) hydromorphone (DEPRESSED RESPIRATIONS 01/18/17) Home Med List: Alprazolam (Xanax) 0.5 MG TABLET 1 TAB PO BID PRN ANXIETY Aspirin (Ecotrin*) 81 MG TABLET. 1 TAB PO DAILY HEART HEALTH (Reported) Calcium Acetate 667 MG CAPSULE 2 CAP PO TID UNKNOWN (Reported) Clopidogrel Bisulfate (Plavix) 75 MG TABLET 75 MG PO DAILY ANTIPLATELET Folic Acid 1 MG TABLET 1 TAB PO DAILY SUPPLEMENT (Reported) Furosemide (Lasix) 80 MG TABLET 1 TAB PO DAILY WATER RETENTION (Reported) Hydrocodone/Acetaminophen (Hydrocodon-Acetaminophen 5-325) 5 MG-325 MG TABLET 1 TAB PO Q8 PRN PAIN (Reported) Hydroxyzine Hydrochloride (Atarax) 25 MG TAB 1 TAB PO TID PRN ITCHING ONLY 10 PILLS. Insulin Aspart (Novolog) 100 UNIT/ML CARTRIDGE 0 SC TIDAC DIABETES BEFORE MEALS... Blood Insulin Sugar Units <80 0 81-150 3 151-200 4 201-250 6 251-300 7 301-350 8 351-400 9 >400 10 Call Doctor Isosorbide Mononitrate (Isosorbide Mononitrate ER) 60 MG TAB.ER.24H 1 TAB PO DAILY CAD Levothyroxine Sodium 200 MCG TABLET 1 TAB PO DAILY AC THYROID (Reported) Losartan Potassium 50 MG TABLET 50 MG PO DAILY high BP Metoprolol Succinate 25 MG TAB 1 TAB PO DAILY HEART (Reported) Nitroglycerin 0.4 MG TAB.SUBL 1 TAB SL DAILY PRN CHEST PAIN (Reported) 1st sign of attack; may repeat every 5 minutes until relief; if pain persists after 3 tablets in 15 minutes, prompt medical att Ramelteon (Rozerem) 8 MG TABLET 1 TAB PO AT BEDTIME SLEEP HELP Sertraline HCl (Zoloft) 100 MG TABLET 1.5 TAB PO DAILY ANXIETY (Reported) Sevelamer Carbonate (Renvela) 800 MG TABLET 2 TAB PO TIDAC ERSD (Reported) Trazodone HCl 150 MG TABLET 1 TAB PO QPM SLEEP (Reported) Current Medications: Current Medications Sig/Julissa Start time Last Medication Dose Route Stop Time Status Admin Acetaminophen 1,000 MG ONCE ONE 01/07 1515 DC 01/07 IV 01/07 1516 1620 Albuterol Sulfate 3 ML TID 01/07 2200 AC INH Alprazolam 0.5 MG BID PRN 01/05 1700 AC 01/06 PO 01/12 1659 2121 Aspirin Buffered 81 MG DAILY 01/06 1000 AC 01/07 PO 1323 Calcium Acetate 1,334 MG TID 01/05 2200 AC 01/07 PO 1653 Clopidogrel Bisulfate 75 MG DAILY 01/06 1000 AC 01/07 PO 1323 Epoetin [place] 4,000 UNIT TuThSa PRN 01/05 1445 AC IV Folic Acid 1 MG DAILY 01/06 1000 AC 01/07 PO 1323 Heparin Sodium 5,000 UNIT Q8 01/05 2200 AC 01/07 (Porcine) SC 1335 Hydrocodone Bitart/ 1 TAB Q8P PRN 01/05 1930 AC 01/07 Acetaminophen PO 1052 Ipratropium Gideon 2.5 ML TID 01/07 2200 AC INH Levothyroxine Sodium 0.2 MG DAILY AC 01/06 0700 AC 01/07 PO 0525 Metoclopramide HCl 10 MG Q6P PRN 01/06 0830 AC 01/06 IV 1421 Morphine Sulfate 1 MG ONCE ONE 01/07 1700 DC 01/07 IV 01/07 1701 1652 Pantoprazole Sodium 40 MG DAILY 01/06 1000 AC 01/07 IV 1329 Ramelteon 8 MG AT BEDTIME 01/05 2200 AC 01/06 PO 2121 Sertraline HCl 150 MG DAILY 01/06 1000 AC 01/07 PO 1323 Sevelamer Carbonate 1,600 MG TIDAC 01/06 1200 AC 01/07 PO 1653 Sodium Chloride 250 ML BOLUS ONE 01/07 0015 DC 01/07 IV 01/07 0114 0018 Trazodone HCl 150 MG QPM 01/05 2200 AC 01/06 PO 2121 Past History Medical History Neurological: proximal muscle pain & weakness UE/LE B/L EENT: NONE Cardiovascular: CAD, hypertension, hyperlipidemia, PVD, 6 CARDIAC STENTS Respiratory: NONE (on O2-2L), COPD Gastrointestinal: hx colon polyps Hepatic: cholelithiasis (vs. 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 FH: heart disease MOTHER, , Age 85; Cause: ASHD (arteriosclerotic heart disease). Relation not specified for: FH: diabetes mellitus FH: hypertension Psychosocial History Where Do You Live? Home Who Do You Live With? girlfriend Services at Home: Home Health Aide, Nursing, Oxygen, Physical Therapy Primary Language: [place] Leone[place] Smoking Status: Former Smoker (quit>5yrs) ETOH Use: heavy use, quitted 25 years ago Illicit Drug Use: denies illicit drug use Living Will? 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 Ambulation: independent (and/or rolling walker), cane IADLs Independent: shopping, housework, finances, food prep, telephone, transportation , medication admin. Employment History Retired? yes Exam & Diagnostic Data Vital Signs and I&O Vital Signs Date Time Temp Pulse Resp B/P B/P Pulse O2 O2 Flow FiO2 Mean Ox Delivery Rate 01/07 1458 97.6 92 20 90/58 91 Room Air 01/07 0650 98.0 93 20 92/64 92 01/07 0130 90/58 01/06 2358 74/00 01/06 2338 98.0 91 18 94 Room Air Intake & Output 01/07 1600 01/07 0800 01/07 0000 01/06 1600 01/06 0800 01/06 0000 Intake Total 500 200 300 150 600 200 Output Total 800 Balance -300 200 300 150 600 200 Intake, IV 90 500 Intake, Oral 500 200 300 60 100 200 Output, 800 Dialysate Patient 190 lb 191 lb 190 lb Weight Weight Bed scale Bed scale Measurement Method Physical Exam: Gen - no acute distress Cardiac - S1S2 noted Abd - slightly firm and mildly distended with well healed incisions, nontender throughout Skin - right inner thigh with 5 in x 3.5 in area of erythema with a 3 mm escar, area is warm and significantly tender to touch with blanching, mild induration with no active drainage, area marked, diffuse pustules and purple papules throughout lower extremities Ext - healing ulcers on knees, cardenas and feet B/L Last 24 Hours of Labs: Laboratory Tests 01/07 01/07 01/07 1715 1115 0800 Chemistry Sodium (137 - 145 mmol/L) 133 L Potassium (3.5 - 5.1 mmol/L) 4.9 Chloride (98 - 107 mmol/L) 94 L Carbon Dioxide (22 - 30 mmol/L) 23 Anion Gap (5 - 16) 15 BUN (9 - 20 mg/dL) 48 H Creatinine (0.7 - 1.2 mg/dL) 4.5 H Estimated GFR (>60 ml/min) 13 L BUN/Creatinine Ratio (7 - 25 %) 10.7 Glucose (65 - 99 mg/dL) 140 H Calcium (8.4 - 10.2 mg/dL) 7.2 L Troponin I (<0.11 ng/ml) Pending 2.78 *H Hematology CBC w Diff MAN DIFF ORDERED WBC (4.8 - 10.8 /CUMM) 10.0 RBC (4.70 - 6.10 /CUMM) 4.09 L Hgb (14.0 - 18.0 G/DL) 12.1 L Hct (42 - 52 %) 37.3 L MCV (80.0 - 94.0 FL) 91.2 MCH (27.0 - 31.0 PG) 29.5 MCHC (33.0 - 37.0 G/DL) 32.3 L RDW (11.5 - 14.5 %) 19.7 H Plt Count (130 - 400 /CUMM) 206 MPV (7.4 - 10.4 FL) 8.6 Gran % (42.2 - 75.2 %) 85.4 H Lymphocytes % (20.5 - 51.1 %) 6.9 L Monocytes % (1.7 - 9.3 %) 7.1 Eosinophils % (0 - 5 %) 0.6 Basophils % (0.0 - 2.0 %) 0 Absolute Granulocytes (1.4 - 6.5 /CUMM) 8.5 H Segmented Neutrophils (42.2 - 75.2 %) 83 H Band Neutrophils (0.0 - 5.0 %) 5 Absolute Lymphocytes (1.2 - 3.4 /CUMM) 0.7 L Lymphocytes (20.5 - 51.1 %) 7 L Monocytes (1.7 - 9.3 %) 5 Absolute Monocytes (0.10 - 0.60 /CUMM) 0.7 H Absolute Eosinophils (0.0 - 0.7 /CUMM) 0.1 Absolute Basophils (0.0 - 0.2 /CUMM) 0 Platelet Estimate (ADEQUATE) VERIFIED BY SMEAR Polychromasia 1+ Anisocytosis 1+ 01/07 01/07 01/06 0630 0340 1999 Chemistry Lactic Acid (0.7 - 2.1 mmol/L) 2.0 2.7 H Troponin I (<0.11 ng/ml) 2.53 *H 2.28 *H Hematology CBC w Diff NO MAN DIFF REQ WBC (4.8 - 10.8 /CUMM) 10.9 H RBC (4.70 - 6.10 /CUMM) 4.12 L Hgb (14.0 - 18.0 G/DL) 12.3 L Hct (42 - 52 %) 38.0 L MCV (80.0 - 94.0 FL) 92.2 MCH (27.0 - 31.0 PG) 29.9 MCHC (33.0 - 37.0 G/DL) 32.5 L RDW (11.5 - 14.5 %) 19.8 H Plt Count (130 - 400 /CUMM) 181 MPV (7.4 - 10.4 FL) 8.9 Gran % (42.2 - 75.2 %) 84.2 H Lymphocytes % (20.5 - 51.1 %) 8.7 L Monocytes % (1.7 - 9.3 %) 7.0 Eosinophils % (0 - 5 %) 0.1 Basophils % (0.0 - 2.0 %) 0 Absolute Granulocytes (1.4 - 6.5 /CUMM) 9.2 H Absolute Lymphocytes (1.2 - 3.4 /CUMM) 1.0 L Absolute Monocytes (0.10 - 0.60 /CUMM) 0.8 H Absolute Eosinophils (0.0 - 0.7 /CUMM) 0 Absolute Basophils (0.0 - 0.2 /CUMM) 0 Imaging Results: SERVICE DATE: 01/07/18151 EXAM TYPE: US - US-UNILATERAL VENOUS DOPPLER EXAMINATION: RIGHT LOWER EXTREMITY VENOUS DOPPLER ULTRASOUND CLINICAL INFORMATION: Pain and swelling in the right lower extremity. Discoloration. Evaluate for DVT. COMPARISON: Bilateral lower extremity venous Doppler ultrasound dated 01/05/2018. TECHNIQUE: Doppler spectral analysis and color flow Doppler imaging was performed of the right lower extremity. Compression and augmentation maneuvers were performed. FINDINGS: Evaluation is limited due to patient's inability to tolerate graded compression ultrasound. The proximal and mid femoral vein are normally compressible and show normal color flow. The patient was unable to tolerate compression of the distal femoral vein. However, normal color flow is demonstrated with color Doppler imaging within the distal femoral vein. The right common femoral vein, greater saphenous vein takeoff, and popliteal vein are normally compressible with normal augmentation responses and phasic changes seen with Doppler imaging. The proximal peroneal and posterior tibial veins are patent as well. There is a 2.3 x 0.8 x 1.3 cm cyst in the right popliteal fossa, previously measuring 2.0 x 1.1 x 1.6 cm. IMPRESSION: 1. Slightly limited evaluation, but no evidence of deep venous thrombosis in the right lower extremity is seen. 2. Small popliteal cyst. SERVICE DATE: 01/05/18-1237 EXAM TYPE: CAT - CT ABD & PELVIS W/O IV CONTRAS; CT CHEST WO IV CONTRAST EXAMINATION: CT ABDOMEN AND PELVIS WITHOUT CONTRAST CT CHEST WITHOUT CONTRAST CLINICAL INFORMATION: Hypotensive. Fall. COMPARISON: CT abdomen pelvis dated 10/11/2017. CT chest dated 03/31/2017. TECHNIQUE: Multidetector volumetric imaging was performed through the chest, abdomen and pelvis. Sagittal and coronal reformatted images were obtained on the technologist's workstation. DLP: 619.35 mGy-cm FINDINGS: There are small bilateral pleural effusions, right side greater than left. There is right middle lobe atelectasis similar to the previous exam. No consolidative process. The heart is normal in size. There is no pericardial effusion. There are dense coronary artery calcifications. No mediastinal or hilar adenopathy. No axillary adenopathy. The thoracic aorta is normal in caliber. Main pulmonary artery is normal in caliber. The liver is normal in size and attenuation. The gallbladder is physiologically distended. The spleen is normal in size and attenuation. The pancreas is grossly normal in size and attenuation. There is no adrenal gland nodule. Both kidneys are somewhat diminutive in size. The right kidney contains several low-attenuation lesions, likely representing cysts. Additionally, there is a heterogeneous, mixed attenuation lesion arising from the upper pole measuring 3.6 cm. There is dense vascular calcification throughout the right kidney. There are dense vascular calcification throughout the left kidney. There are several low-attenuation lesions within the left kidney the largest measuring up to 3 cm, consistent with a simple cyst. There is no hydronephrosis. There is a moderate amount of abdominal ascites. The urinary bladder is unremarkable. The prostate gland is enlarged. There is no evidence of bowel obstruction. There is a large volume of pelvic ascites. No abdominal or pelvic lymphadenopathy. The subcutaneous low-attenuation focus superior to the left buttock is decreased in size, currently measuring 3.4 cm, previously measuring 4.6 cm. There are degenerative changes throughout the thoracolumbar spine. Neither sclerotic nor lytic bone lesions are identified. IMPRESSION: 1. Small bilateral pleural effusions, right greater than left. 2. Right middle lobe atelectasis, similar to the previous examination. 3. Large volume of abdominal and pelvic ascites. This is new when compared with the prior study. 4. No evidence of bowel obstruction. 5. Exophytic mass arising from the upper pole of the right kidney. Assessment/Plan Assessment/Plan 68 M with multiple comorbidites with right medial thigh cellulitis Start IV abx - unasyn and clinda May require emergent surgical intervention if he develops signs of necrotizing fascitis Will closely follow D/w Dr. So and medicine team Consult Acknowledgment - Thank you for your consult request. Isaiah So MD 01/08/18 0921: Assessment/Plan Consult Acknowledgment - Thank you for your consult request. Attending MD Review Statement Attending Statement Attending MD Statement: discuss w/resident/PA/RADIOLOGY SERVICES MANAGER, reviewed images Attending Assessment/Plan: photo of leg viewed last evening. small bullae and erythema in setting of severe arterial chronic ischemia. Suspect atypical cellulitis rather than necrotizing soft tissue infection. Would try to avoid incision and drainage as he will never heal such a large wound. Start broad spectrum abx (unasyn/clinda). serial examination.
[2018-01-07 23:08] VITALS: BP 100/58
[2018-01-08 07:11] VITALS: BP 122/67
[2018-01-08 07:42] VITALS: BP 88/00
--- NOTE | 2018-01-08 07:55 | PN- General Surgery ---
Subjective Subjective: Patient complaining of worsening pain to inner aspect of right thigh. Is concerned about worsening erythema. Denies chest pain, shortness of breath and difficulty breathing. Denies dizziness, nausea, vomiting or flulike symptoms. Objective Vital Signs and I&Os Vital Signs Date Time Temp Pulse Resp B/P B/P Pulse O2 O2 Flow FiO2 Mean Ox Delivery Rate 01/08 0742 97.6 99 20 88/00 01/08 0711 97.6 95 20 122/67 92 01/08 0000 Nasal 2.0L Cannula 01/078 98.3 96 18 100/58 94 01/07 1954 Room Air 01/07 1458 97.6 92 20 90/58 91 Room Air Intake & Output 01/08 0801/08 0000 01/07 1600 01/07 0801/07 0000 01/06 1600 Intake Total 300 240 500 200 300 150 Output Total 800 Balance 300 240 -300 200 300 150 Intake, IV 90 Intake, Oral 300 240 500 200 300 60 Output, 800 Dialysate Patient 188 lb 190 lb 191 lb 190 lb Weight Weight Bed scale Bed scale Measurement Method Physical Exam: General: Alert and oriented x3, no acute distress Cardiac: RRR, s1s2 Pulm: C T A bialterally, non-labored respiratory effort Extremiteis: Bilateral lower extremities with evidence of peripheral vascular disease. Multiple areas of redness and poor healing ulcerations bilaterally. Inner right thigh indurated. Eschar measuring approximately 3mm with small blister forming. No palpable crepitus. No fluctuance noted. No drainage noted. Warmth and tenderness to touch. Assessment/Plan Assessment/Plan Bedside evaluation by myself and Dr. So Wound appears stable presently, continue unasyn and clindamycin IV Manage pain Can have diet now Will continue to assess induration, does not appear to be a necrotizing fasciitis presently Follow up superficial ultrasound
[2018-01-08 08:24] LABS: ABSOLUTE BASOPHIL COUNT 0 /CUMM (0.0-0.2); ABSOLUTE EOSINOPHIL COUNT 0 /CUMM (0.0-0.7); ABSOLUTE GRANULOCYTE CT 7.1 /CUMM (1.4-6.5); ABSOLUTE LYMPH COUNT 0.8 /CUMM (1.2-3.4); ABSOLUTE MONOCYTE COUNT 0.6 /CUMM (0.10-0.60); BASOPHIL % 0 % (0.0-2.0); EOSINOPHIL % 0.1 % (0-5); GRANULOCYTE % 83.3 % (42.2-75.2); HEMATOCRIT 38.1 % (42-52); MEAN CORPUSCULAR HGB CONC 32.4 G/DL (33.0-37.0); MEAN CORPUSCULAR VOLUME 92.5 FL (80.0-94.0); MEAN PLATELET VOLUME 8.5 FL (7.4-10.4); PLATELET COUNT 191 /CUMM (130-400); RBC DISTRIBUTION WIDTH 20.5 % (11.5-14.5); RED BLOOD CELL CT 4.12 /CUMM (4.70-6.10); WHITE BLOOD CELL COUNT 8.5 /CUMM (4.8-10.8)
--- NOTE | 2018-01-08 09:29 | PN- General Surgery ---
Subjective Subjective: persistent pain. wants pain meds. no deterioration overnight. hungry. Objective Vital Signs and I&Os Vital Signs Date Time Temp Pulse Resp B/P B/P Pulse O2 O2 Flow FiO2 Mean Ox Delivery Rate 01/08 0742 97.6 99 20 88/00 01/08 0711 97.6 95 20 122/67 92 01/08 0000 Nasal 2.0L Cannula 01/078 98.3 96 18 100/58 94 01/07 1954 Room Air 01/07 1458 97.6 92 20 90/58 91 Room Air Intake & Output 01/08 1600 01/08 0800 01/08 0000 01/07 1600 01/07 0800 01/07 0000 Intake Total 300 240 500 200 300 Output Total 800 Balance 300 240 -300 200 300 Intake, Oral 300 240 500 200 300 Output, 800 Dialysate Patient 188 lb 190 lb 191 lb Weight Weight Bed scale Measurement Method Physical Exam: gen; looks chronically ill. diffuse skin ulceration c/w severe PVD heent; anicteric, perrl,. eomi right lower thigh: induration and erythema 10cm. no fluctuance. no significant progression of erythema from lines drawn last night. There are three clustered vesicles with dark discoloration, measuring 3-4mm each. Current Medications: Current Medications Sig/Julissa Start time Last Medication Dose Route Stop Time Status Admin Acetaminophen 1,000 MG ONCE ONE 01/07 1515 DC 01/07 IV 01/07 1516 1620 Albuterol Sulfate 3 ML TID 01/07 220 AC INH Alprazolam 0.5 MG BID PRN 01/05 1700 AC 01/07 PO 01/12 1659 2134 Ampicillin Sodium/ 1,500 MG Q12 01/07 2200 AC 01/07 Sulbactam Sodium IV 2316 Sodium Chloride 100 ML Aspirin Buffered 81 MG DAILY 01/06 1000 AC 01/07 PO 1323 Calcium Acetate 1,334 MG TID 01/05 2200 AC 01/07 PO 2128 Clindamycin 600 MG IQ8 01/08 0000 AC 01/08 Dextrose/Water 50 ML IV 0754 Clopidogrel Bisulfate 75 MG DAILY 01/06 1000 AC 01/07 PO 1323 Epoetin [place] 4,000 UNIT TuThSa PRN 01/05 1445 AC IV Folic Acid 1 MG DAILY 01/06 1000 AC 01/07 PO 1323 Heparin Sodium 5,000 UNIT Q8 01/05 220 AC 01/08 (Porcine) SC 0613 Hydrocodone Bitart/ 1 TAB Q8P PRN 01/05 1930 AC 01/08 Acetaminophen PO 0648 Ipratropium [place] 2.5 ML TID 01/07 2200 AC INH Levothyroxine Sodium 0.2 MG DAILY AC 01/06 0700 AC 01/08 PO 0613 Metoclopramide HCl 10 MG Q6P PRN 01/06 0830 AC 01/06 IV 1421 Morphine Sulfate 1 MG ONCE ONE 01/07 2315 DC 01/08 IV 01/07 2316 0309 Morphine Sulfate 1 MG ONCE ONE 01/07 1700 DC 01/07 IV 01/07 1701 1652 Pantoprazole Sodium 40 MG DAILY 01/06 1000 AC 01/07 IV 1329 Ramelteon 8 MG AT BEDTIME 01/05 220 AC 01/07 PO 2128 Sertraline HCl 150 MG DAILY 01/06 1000 AC 01/07 PO 1323 Sevelamer Carbonate 1,600 MG TIDAC 01/06 1200 AC 01/07 PO 1653 Trazodone HCl 150 MG QPM 01/05 220 AC 01/07 PO 2127 Results Last 48 Hours of Labs: Laboratory Tests 01/08 01/07 01/07 0720 1715 1115 Chemistry Sodium (137 - 145 mmol/L) 134 L Potassium (3.5 - 5.1 mmol/L) 4.3 Chloride (98 - 107 mmol/L) 95 L Carbon Dioxide (22 - 30 mmol/L) 24 Anion Gap (5 - 16) 15 BUN (9 - 20 mg/dL) 31 H Creatinine (0.7 - 1.2 mg/dL) 3.7 H Estimated GFR (>60 ml/min) 17 L BUN/Creatinine Ratio (7 - 25 %) 8.4 Troponin I (<0.11 ng/ml) 1.98 *H 2.78 *H Hematology CBC w Diff MAN DIFF ORDERED WBC (4.8 - 10.8 /CUMM) 8.5 RBC (4.70 - 6.10 /CUMM) 4.12 L Hgb (14.0 - 18.0 G/DL) 12.3 L Hct (42 - 52 %) 38.1 L MCV (80.0 - 94.0 FL) 92.5 MCH (27.0 - 31.0 PG) 30.0 MCHC (33.0 - 37.0 G/DL) 32.4 L RDW (11.5 - 14.5 %) 20.5 H Plt Count (130 - 400 /CUMM) 191 MPV (7.4 - 10.4 FL) 8.5 Gran % (42.2 - 75.2 %) 83.3 H Lymphocytes % (20.5 - 51.1 %) 9.3 L Monocytes % (1.7 - 9.3 %) 7.3 Eosinophils % (0 - 5 %) 0.1 Basophils % (0.0 - 2.0 %) 0 Absolute Granulocytes (1.4 - 6.5 /CUMM) 7.1 H Segmented Neutrophils (42.2 - 75.2 %) Pending Absolute Lymphocytes (1.2 - 3.4 /CUMM) 0.8 L Absolute Monocytes (0.10 - 0.60 /CUMM) 0.6 Absolute Eosinophils (0.0 - 0.7 /CUMM) 0 Absolute Basophils (0.0 - 0.2 /CUMM) 0 01/07 01/07 0800 0630 Chemistry Sodium (137 - 145 mmol/L) 133 L Potassium (3.5 - 5.1 mmol/L) 4.9 Chloride (98 - 107 mmol/L) 94 L Carbon Dioxide (22 - 30 mmol/L) 23 Anion Gap (5 - 16) 15 BUN (9 - 20 mg/dL) 48 H Creatinine (0.7 - 1.2 mg/dL) 4.5 H Estimated GFR (>60 ml/min) 13 L BUN/Creatinine Ratio (7 - 25 %) 10.7 Glucose (65 - 99 mg/dL) 140 H Lactic Acid (0.7 - 2.1 mmol/L) 2.0 Calcium (8.4 - 10.2 mg/dL) 7.2 L Hematology CBC w Diff MAN DIFF ORDERED NO MAN DIFF REQ WBC (4.8 - 10.8 /CUMM) 10.0 10.9 H RBC (4.70 - 6.10 /CUMM) 4.09 L 4.12 L Hgb (14.0 - 18.0 G/DL) 12.1 L 12.3 L Hct (42 - 52 %) 37.3 L 38.0 L MCV (80.0 - 94.0 FL) 91.2 92.2 MCH (27.0 - 31.0 PG) 29.5 29.9 MCHC (33.0 - 37.0 G/DL) 32.3 L 32.5 L RDW (11.5 - 14.5 %) 19.7 H 19.8 H Plt Count (130 - 400 /CUMM) 206 181 MPV (7.4 - 10.4 FL) 8.6 8.9 Gran % (42.2 - 75.2 %) 85.4 H 84.2 H Lymphocytes % (20.5 - 51.1 %) 6.9 L 8.7 L Monocytes % (1.7 - 9.3 %) 7.1 7.0 Eosinophils % (0 - 5 %) 0.6 0.1 Basophils % (0.0 - 2.0 %) 0 0 Absolute Granulocytes (1.4 - 6.5 /CUMM) 8.5 H 9.2 H Segmented Neutrophils (42.2 - 75.2 %) 83 H Band Neutrophils (0.0 - 5.0 %) 5 Absolute Lymphocytes (1.2 - 3.4 /CUMM) 0.7 L 1.0 L Lymphocytes (20.5 - 51.1 %) 7 L Monocytes (1.7 - 9.3 %) 5 Absolute Monocytes (0.10 - 0.60 /CUMM) 0.7 H 0.8 H Absolute Eosinophils (0.0 - 0.7 /CUMM) 0.1 0 Absolute Basophils (0.0 - 0.2 /CUMM) 0 0 Platelet Estimate (ADEQUATE) VERIFIED BY SMEAR Polychromasia 1+ Anisocytosis 1+ 01/07 01/06 01/06 01/06 0340 1999 1225 1225 Chemistry Lactic Acid (0.7 - 2.1 mmol/L) 2.7 H 3.5 H Troponin I (<0.11 ng/ml) 2.53 *H 2.28 *H 1.31 *H [id number] Pept (<125 pg/mL) 81905.0 H Recent Imaging Studies: ultrasound of leg site pending. Assessment/Plan Assessment/Plan Cellulitis without abscess or necrotizing soft tissue infection. No role for surgical intervention. Observe findings on broad spectrum abx. Suspect atypical appearance and pain due to component of ischemia.
--- NOTE | 2018-01-08 09:31 | ULTRASOUND REPORT ---
EXAMINATION: US SUPERFICIAL IMAGING, RIGHT EXTREMITY CLINICAL INFORMATION: Right lower medial thigh redness and pain. COMPARISON: None TECHNIQUE: Routine grayscale imaging of right medial thigh was performed. FINDINGS: There is mild edematous subcutaneous soft tissues of right medial thigh. No focal collection, mass or mass effect seen. IMPRESSION: Mild subcutaneous edema right medial thigh. No focal mass or collection seen.
--- NOTE | 2018-01-08 09:43 | PN- Housestaff ---
GerberTrina 01/08/18 0943: Subjective Follow-up For: #Elevated Trop, likely type II PR #R knee pain #Chronic chest discomfort #ESRD on HD #Hypocalcemia #PVD pending angiogram #PMH of CAD S/P 6 stents, hypertension, hyperlipidemia, PVD, chronic back pain, diabetes, thyroid cance status post thyroidectomy, CBP, anxiety/depression Tele-Events Since Last Visit: NSR Subjective: No overnight event/ Patient appeared more spirited compared w/ admission. Skin ulcers improved but knee still in pain, localized swelling under knee cap and erythema at inner thign of RLE, press tender long goods to touch however no other specific compalint. S/p dialysis on Sat. Eating drinking all well. Review of Systems Constitutional: Reports: see HPI. Objective Last 24 Hrs of Vital Signs/I&O Vital Signs Date Time Temp Pulse Resp B/P B/P Pulse O2 O2 Flow FiO2 Mean Ox Delivery Rate 01/08 1107 91 82/00 01/08 0800 92 Room Air 01/08 0742 97.6 99 20 88/00 01/08 0711 97.6 95 20 122/67 92 / 0000 Nasal 2.0L Cannula 01/07 2308 98.3 96 18 100/58 94 01/07 1954 Room Air 01/07 1458 97.6 92 20 90/58 91 Room Air Intake & Output 01/08 1600 01/08 0800 01/08 0000 Intake Total 300 240 Output Total Balance 300 240 Intake, Oral 300 240 Patient 85.417 kg Weight Physical Exam General Appearance: Alert, Oriented X3, Cooperative, No Acute Distress Cardiovascular: Regular Rate Lungs: Clear to Auscultation, Normal Air Movement Abdomen: Soft, No Tenderness Neurological: Normal Speech Extremities: BLE multiple healing skin ulcers R knee swelling localized to R knee cap, tender to light touch R inner thign erythema Current Medications: Current Medications Sig/Julissa Start time Last Medication Dose Route Stop Time Status Admin Acetaminophen 1,000 MG ONCE ONE 01/07 1515 DC 01/07 IV 01/07 1516 1620 Albuterol Sulfate 3 ML TID 01/07 2200 AC INH Alprazolam 0.5 MG BID PRN 01/05 1700 AC 01/07 PO 01/12 1659 2134 Ampicillin Sodium/ 1,500 MG Q12 01/07 2200 AC 01/08 Sulbactam Sodium IV 0955 Sodium Chloride 100 ML Aspirin Buffered 81 MG DAILY 01/06 1000 AC 01/08 PO 0955 Calcium Acetate 1,334 MG WM 01/08 1200 AC PO Calcium Acetate 1,334 MG TID 01/05 2200 DC 01/08 PO 0956 Clindamycin 600 MG IQ8 01/08 0000 AC 01/08 Dextrose/Water 50 ML IV 0754 Clopidogrel Bisulfate 75 MG DAILY 01/06 1000 AC 01/08 PO 0956 Epoetin [place] 4,000 UNIT TuThSa PRN 01/05 1445 AC IV Folic Acid 1 MG DAILY 01/06 1000 AC 01/08 PO 0956 Heparin Sodium 5,000 UNIT Q8 01/05 2200 AC 01/08 (Porcine) SC 0613 Hydrocodone Bitart/ 1 TAB Q8P PRN 01/05 1930 AC 01/08 Acetaminophen PO 0648 Insulin Aspart 0 TIDAC 01/08 1200 AC SC Ipratropium [place] 2.5 ML TID 01/07 2200 AC INH Levothyroxine Sodium 0.2 MG DAILY AC 01/06 0700 AC 01/08 PO 0613 Metoclopramide HCl 10 MG Q6P PRN 01/06 0830 AC 01/06 IV 1421 Morphine Sulfate 4 MG .STK-MED ONE 01/08 0308 DC IM 01/08 0309 Morphine Sulfate 1 MG ONCE ONE 01/07 2315 DC 01/08 IV 01/07 2316 0309 Morphine Sulfate 1 MG ONCE ONE 01/07 1700 DC 01/07 IV 01/07 1701 1652 Pantoprazole Sodium 40 MG DAILY 01/06 1000 AC 01/08 IV 0956 Ramelteon 8 MG AT BEDTIME 01/05 2200 AC 01/07 PO 2128 Sertraline HCl 150 MG DAILY 01/06 1000 AC 01/08 PO 0956 Sevelamer Carbonate 1,600 MG TIDAC 01/06 1200 AC 01/08 PO 0955 Trazodone HCl 150 MG QPM 01/05 220 AC 01/07 PO 2127 Last 24 Hrs of Lab/Angus Results Last 24 Hrs of Labs/Mics: Laboratory Tests 01/08/18 0720: Anion Gap 15, Estimated GFR 17 L, BUN/Creatinine Ratio 8.4, Total Bilirubin 3.2 H, Direct Bilirubin 2.9 H, AST 40, ALT 46, Alkaline Phosphatase 423 H, Total Protein 6.1 L, Albumin 3.1 L, CBC w Diff MAN DIFF ORDERED, RBC 4.12 L, MCV 92.5, MCH 30.0, MCHC 32.4 L, RDW 20.5 H, MPV 8.5, Gran % 83.3 H, Lymphocytes % 9.3 L, Monocytes % 7.3, Eosinophils % 0.1, Basophils % 0, Absolute Granulocytes 7.1 H, Absolute Lymphocytes 0.8 L, Absolute Monocytes 0.6, Absolute Eosinophils 0, Absolute Basophils 0, Platelet Estimate VERIFIED BY SMEAR, Anisocytosis 2+ 01/07/18 1715: Troponin I 1.98 *H Assessment/Plan Assessment: Mr. Dodd is a 68-year-old male with PMH of CAD S/P 6 stents, COPD on home oxygen 2 L, ESRD on HD with left arm aVF, hypertension, hyperlipidemia, PVD, chronic back pain, diabetes, thyroid cancer status post thyroidectomy, chronic BUE BLE muscle pain/weakness, CBP, anxiety/depression, presented to ER with chief complaint of generalized pain over the body, and inability to ambulate due to the right knee pain. Patient reported pain in his bilateral knees, and a mechanical for 2 weeks ago, however now the pain is mostly in his right knee, and inability to bend or move without being painful, is feeling of sharp knife stabbing pain 7-8/10, no radiations, and denies fever/chills. Patient also reported multiple chronic pulses especially on his bilateral upper and lower extremities. Due to the knee pain, patient was unable to make to dialysis today and presented to the ER for further evaluation. Patient denies any loss of consciousness/chest pain/palpitations/dyspnea/pedal edema. Patient was supposed to get angiogram for evaluation of peripheral vascular disease by Dr. Rodriguez. Dr. Rodriguez was contacted over the phone, and confirmed up appointment to be around 01/13/2018. On admission, Vitals: Afebrile BP 70s-90s/40s-50s, HR 90s, satting 99% on room air -CBC: WBC 9.5 (91% granulocytes), H/H 12.4/47.0 (anemia of chronic disease), PLT 181, -BMP: NA 144, K5.1, BUN 57, CR 5.6 (ESRD), EGFR 10, glucose 196, CA 7.4, bicarb 19 (metabolic acidosis) -Misc: ALK P 41, troponin 1 0.17, CRP 3.6, ESR 20, -CXR: 1. Slight interval increase elevation of the right hemidiaphragm. Small right effusion. Right basilar atelectasis. 2. No acute osseous abnormality appreciated in the chest or pelvis. -Knee Xray: 1. RIGHT KNEE: Chondrocalcinosis. No evidence of acute injury. 2. LEFT KNEE: Chondrocalcinosis. Minor spurring of the patella. No evidence of acute injury. -Pelvis XR: 1. Slight interval increase elevation of the right hemidiaphragm. Small right effusion. Right basilar atelectasis. 2. No acute osseous abnormality appreciated in the chest or pelvis. -BLE V-doppler: Negative for DVT -EKG: Pending. -Interventions in ER: IVF 2.5 L bolus, Zofran, Tylenol, Epogen 4000 units IV Tuesday scheduled. Assessment: Patient's clinical picture represented need of immediate dialysis to correct electrolyte this disturbance, and would warrant further cardiac evaluation of his elevated troponin, however likely secondary to type II PR pending rule out other causes. Problem list #Elevated Trop, likely type II PR #R knee pain #Cellulitis of inner R thigh #Chronic chest discomfort #ESRD on HD #New onset Ascites #Right renal mass #Hypocalcemia #PVD pending angiogram #PMH of CAD S/P 6 stents, hypertension, hyperlipidemia, PVD, chronic back pain, diabetes, thyroid cance status post thyroidectomy, CBP, anxiety/depression Plan -COntinue telemetry to increase, pending repeat Echo. hypotensive today w/ SBP around 80s, however asymptomatic. Low threshold for ICU transfer. -Continue Cleocin and Unasyn for Inner R thigh cellulitis. BC had NGTD. -Plan for Paracentesis of new onset ascites by IR, pending scheduling. -Urology consult recommended serial images f.u for right renal cyst in outpatient. currently no inhospital intervention. - DVT prophylaxis ALPS Dialysis diet Full Code Problem List: 1. 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 Elevated troponin 3. ESRD (end stage renal disease) on dialysis Pain Ratin Pain Location: R knee Pain Goal: Pain 7 or less Pain Plan: see AP Tomorrow's Labs & Rationales: CBC/BEP D'Hamilton MDVero 01/08/18 1304: Attending MD Review Statement Attending Statement Attending MD Statement: examined this patient, discuss w/resident/PA/INDUSTRIAL RELATIONS OFFICER, agreed w/resident/PA/INDUSTRIAL RELATIONS OFFICER, reviewed EMR data (avail), discussed with nursing, reviewed images Attending Assessment/Plan: Pt has pain and tenderness on the inner aspect of the right thigh. He was evaluated by surgery, he's been started on IV Unasyn and clindamycin for the suspected cellulitis. Ultrasound was negative for DVT or a superficial fluid collection and surgery felt there was nothing to surgically intervene on. He is a very complicated 68-year-old with multiple medical problems including DM, end- stage renal disease on hemodialysis and significant peripheral arterial disease. He is hypotensive, volume overloaded and because of the blood pressure issues, only 1 L of fluid was taken out during dialysis yesterday. He also has evidence of pleural effusions and ascites presumably all from volume overload and congestive heart failure with a bili that's in the range of 3 again all presumably chronic passive congestion and heart failure. Right now we can't give him any medications that could potentially lower his blood pressure, he is on aspirin and Plavix and on the antibiotics and we are watching the blood pressure and clinical status closely. He may need a diagnostic paracentesis for of the ascitic fluid. Given the blood pressure I would not attempt a therapeutic tap.
[2018-01-08 11:07] VITALS: BP 82/00
--- NOTE | 2018-01-08 12:53 | PN- Cardiology ---
Subjective Subjective: Resting comfortably. Denies any dizziness, chest pain, or dyspnea. He still complains of significant right lower extremity pain. Objective Vital Signs and I&Os Vital Signs Date Time Temp Pulse Resp B/P B/P Pulse O2 O2 Flow FiO2 Mean Ox Delivery Rate 01/08 1107 91 82/00 01/08 0800 92 Room Air 01/08 0742 97.6 99 20 88/00 01/08 0711 97.6 95 20 122/67 92 01/08 0000 Nasal 2.0L Cannula 01/07 2308 98.3 96 18 100/58 94 01/07 1954 Room Air 01/07 1458 97.6 92 20 90/58 91 Room Air Intake & Output 01/08 1600 01/08 0800 01/08 0000 01/07 1600 01/07 0801/07 0000 Intake Total 300 240 500 200 300 Output Total 800 Balance 300 240 -300 200 300 Intake, Oral 300 240 500 200 300 Output, 800 Dialysate Patient 188 lb 190 lb 191 lb Weight Weight Bed scale Measurement Method Physical Exam: General: no apparent distress. Eyes: No obvious scleral icterus. HEENT: No jugular venous distention or abnormal jugular venous pulsations. Cardiovascular: Normal intensity S1/S2. Regular Respiratory: No rales or rhonchi, mildly decreased air entry at the bases Abdomen: No rebound tenderness; firm Musculoskeletal: Right lower extremity erythema/edema tender to palpation Skin: Warm Neurologic: No gross focal deficits noted. Current Medications: Current Medications Sig/Julissa Start time Last Medication Dose Route Stop Time Status Admin Acetaminophen 1,000 MG ONCE ONE 01/07 1515 DC 01/07 IV 01/07 1516 1620 Al Hydroxide/Mg 30 ML ONCE ONE 01/08 1215 UNVr Hydroxide PO 01/08 1216 Albuterol Sulfate 3 ML TID 01/07 2200 AC INH Alprazolam 0.5 MG BID PRN 01/05 1700 AC 01/07 PO 01/12 1659 2134 Ampicillin Sodium/ 1,500 MG Q12 01/07 2200 AC 01/08 Sulbactam Sodium IV 0955 Sodium Chloride 100 ML Aspirin Buffered 81 MG DAILY 01/06 1000 AC 01/08 PO 0955 Calcium Acetate 1,334 MG WM 01/08 1200 AC PO Calcium Acetate 1,334 MG TID 01/05 2200 DC 01/08 PO 0956 Clindamycin 600 MG IQ8 01/08 0000 AC 01/08 Dextrose/Water 50 ML IV 0754 Clopidogrel Bisulfate 75 MG DAILY 01/06 1000 AC 01/08 PO 0956 Epoetin [place] 4,000 UNIT TuThSa PRN 01/05 1445 AC IV Folic Acid 1 MG DAILY 01/06 1000 AC 01/08 PO 0956 Heparin Sodium 5,000 UNIT Q8 01/05 2200 AC 01/08 (Porcine) SC 0613 Hydrocodone Bitart/ 1 TAB Q8P PRN 01/05 1930 AC 01/08 Acetaminophen PO 0648 Insulin Aspart 0 TIDAC 01/08 1200 AC SC Ipratropium [place] 2.5 ML TID 01/07 2200 AC INH Levothyroxine Sodium 0.2 MG DAILY AC 01/06 0700 AC 01/08 PO 0613 Metoclopramide HCl 10 MG Q6P PRN 01/06 0830 AC 01/06 IV 1421 Morphine Sulfate 4 MG .STK-MED ONE 01/08 0308 DC IM 01/08 0309 Morphine Sulfate 1 MG ONCE ONE 01/07 2315 DC 01/08 IV 01/07 2316 0309 Morphine Sulfate 1 MG ONCE ONE 01/07 1700 DC 01/07 IV 01/07 1701 1652 Pantoprazole Sodium 40 MG DAILY 01/06 1000 AC 01/08 IV 0956 Ramelteon 8 MG AT BEDTIME 01/05 220 AC 01/07 PO 2128 Sertraline HCl 150 MG DAILY 01/06 1000 AC 01/08 PO 0956 [place]velamer Carbonate 1,600 MG TIDAC 01/06 1200 AC 01/08 PO 0955 Trazodone HCl 150 MG QPM 01/05 220 AC 01/07 PO 2127 Results Last 48 Hrs of Labs/Mics: Laboratory Tests 01/08/18 0720: Anion Gap 15, Estimated GFR 17 L, BUN/Creatinine Ratio 8.4, Total Bilirubin 3.2 H, Direct Bilirubin 2.9 H, AST 40, ALT 46, Alkaline Phosphatase 423 H, Troponin I 1.58 *H, Total Protein 6.1 L, Albumin 3.1 L, CBC w Diff MAN DIFF ORDERED, RBC 4.12 L, MCV 92.5, MCH 30.0, MCHC 32.4 L, RDW 20.5 H, MPV 8.5, Gran % 83.3 H, Lymphocytes % 9.3 L, Monocytes % 7.3, Eosinophils % 0.1, Basophils % 0, Absolute Granulocytes 7.1 H, Absolute Lymphocytes 0.8 L, Absolute Monocytes 0.6, Absolute Eosinophils 0, Absolute Basophils 0, Platelet Estimate VERIFIED BY SMEAR, Anisocytosis 2+ 01/07/18 1715: Troponin I 1.98 *H 01/07/18 1115: Troponin I 2.78 *H 01/07/18 0800: Anion Gap 15, Estimated GFR 13 L, BUN/Creatinine Ratio 10.7, Glucose 140 H, Calcium 7.2 L, CBC w Diff MAN DIFF ORDERED, RBC 4.09 L, MCV 91.2, MCH 29.5, MCHC 32.3 L, RDW 19.7 H, MPV 8.6, Gran % 85.4 H, Lymphocytes % 6.9 L, Monocytes % 7.1, Eosinophils % 0.6, Basophils % 0, Absolute Granulocytes 8.5 H, Segmented Neutrophils 83 H, Band Neutrophils 5, Absolute Lymphocytes 0.7 L, Lymphocytes 7 L, Monocytes 5, Absolute Monocytes 0.7 H, Absolute Eosinophils 0.1, Absolute Basophils 0, Platelet Estimate VERIFIED BY SMEAR, Polychromasia 1+ , Anisocytosis 1+ 01/07/18 0630: Lactic Acid 2.0, CBC w Diff NO MAN DIFF REQ, RBC 4.12 L, MCV 92.2, MCH 29.9, MCHC 32.5 L, RDW 19.8 H, MPV 8.9, Gran % 84.2 H, Lymphocytes % 8.7 L, Monocytes % 7.0, Eosinophils % 0.1, Basophils % 0, Absolute Granulocytes 9.2 H, Absolute Lymphocytes 1.0 L, Absolute Monocytes 0.8 H, Absolute Eosinophils 0, Absolute Basophils 0 01/07/18 0340: Troponin I 2.53 *H 01/06/18 2000: Lactic Acid 2.7 H, Troponin I 2.28 *H Recent Imaging Studies: Telemetry tracings were personally reviewed and shows sinus rhythm Assessment/Plan Assessment/Plan 1. Elevated troponins unlikely due to acute coronary syndrome 2. Generalized pain 3. Chronic issues with lower extremity arterial and venous insufficiency/PAD/ PVI 4. End-stage renal disease on hemodialysis 5. Elevated bilirubin 6. Abdominal ascites 7. History of ischemic cardiomyopathy 8. Cellulitis The patient's blood pressure remains borderline but he is alert and mentating appropriately. He is on antibiotics. Denies chest pain or dyspnea; troponins are declining. Repeat echocardiogram pending. Blood pressure will not tolerate restarting his anti-myopathic regimen currently. Dialysis schedule with fluid removal per renal. James Romero MD [facility] Continue telemetry? Yes
[2018-01-08 13:48] VITALS: BP 82/00
[2018-01-08 17:04] VITALS: BP 80/00
[2018-01-08 23:00] VITALS: BP 90/00
[2018-01-09 06:58] VITALS: BP 100/60
--- NOTE | 2018-01-09 07:18 | PN- Housestaff ---
GerberTrina 01/09/18 0718: Subjective Follow-up For: #Elevated Trop, likely type II [place] #R knee pain #Chronic chest discomfort #ESRD on HD #Hypocalcemia #PVD pending angiogram #PMH of CAD S/P 6 stents, hypertension, hyperlipidemia, PVD, chronic back pain, diabetes, thyroid cance status post thyroidectomy, CBP, anxiety/depression Tele-Events Since Last Visit: NSR Subjective: No overnight event. Patient resting comfortably on bed with same complaint of his R knee pain, otherwise stable without new specific complaint. Denied lightheadedness/CP/SOB/Headache/Ab pain. Review of Systems Constitutional: Reports: see HPI. Objective Last 24 Hrs of Vital Signs/I&O Vital Signs Date Time Temp Pulse Resp B/P B/P Pulse O2 O2 Flow FiO2 Mean Ox Delivery Rate 01/09 0658 97.5 56 20 100/60 92 Room Air 01/09 0000 Nasal 2.0L Cannula 01/08 2300 97.6 92 20 90/00 94 01/08 1704 97 80/00 01/08 1600 94 Room Air 01/08 1348 96.7 95 20 82/00 94 Room Air 01/08 1107 91 82/00 Intake & Output 01/09 1600 / 0800 01/09 0000 Intake Total 300 860 Output Total 0 Balance 300 860 Intake, IV 80 Intake, Oral 300 780 Number 0 Bowel Movements Output, Urine 0 Patient 92.221 kg 92.136 kg Weight Physical Exam General Appearance: Alert, Oriented X3, Cooperative, No Acute Distress Cardiovascular: Regular Rate Lungs: Clear to Auscultation, Normal Air Movement Abdomen: Soft, No Tenderness Neurological: Normal Speech Extremities: R knee erythema/swelling without elevated skin temp. Erythema on R inner thigh with border marked from before, some retraction of redness Current Medications: Current Medications Sig/Julissa Start time Last Medication Dose Route Stop Time Status Admin Al Hydroxide/Mg 30 ML ONCE ONE 01/09 415 DC 01/09 Hydroxide PO 01/10 416 0419 Al Hydroxide/Mg 30 ML ONCE ONE 01/08 1215 DC 01/08 Hydroxide PO 01/08 1216 1252 Al Hydroxide/Mg 30 ML .STK-MED ONE 01/08 1213 DC Hydroxide PO 01/08 1214 Albuterol Sulfate 3 ML TID 01/07 2200 AC INH Alprazolam 0.5 MG BID PRN 01/05 1700 AC 01/07 PO 01/12 1659 2134 Ampicillin Sodium/ 1,500 MG Q12 01/07 2200 AC 01/09 Sulbactam Sodium IV 0813 Sodium Chloride 100 ML Aspirin Buffered 81 MG DAILY 01/06 1000 AC 01/09 PO 0816 Calcium Acetate 1,334 MG WM 01/08 1200 AC 01/08 PO 1810 Calcium Acetate 1,334 MG TID 01/05 2200 DC 01/08 PO 0956 Clindamycin 600 MG IQ8 01/08 0000 AC 01/09 Dextrose/Water 50 ML IV 0720 Clopidogrel Bisulfate 75 MG DAILY 01/06 1000 AC 01/09 PO 0816 Epoetin [place] 4,000 UNIT TuThSa PRN 01/05 1445 AC IV Folic Acid 1 MG DAILY 01/06 1000 AC 01/08 PO 0956 Heparin Sodium 5,000 UNIT Q8 01/05 2200 AC 01/09 (Porcine) SC 0501 Hydrocodone Bitart/ 1 TAB Q8P PRN 01/05 1930 AC 01/08 Acetaminophen PO 1430 Insulin Aspart 0 TIDAC 01/08 1200 AC 01/08 SC 1800 Ipratropium [place] 2.5 ML TID 01/07 2200 AC INH Levothyroxine Sodium 0.2 MG DAILY AC 01/06 0700 AC 01/09 PO 0501 Metoclopramide HCl 10 MG Q6P PRN 01/06 0830 AC 01/08 IV 1338 Pantoprazole Sodium 40 MG DAILY 01/06 1000 AC 01/09 IV 0816 Polyethylene Glycol 17 GM DAILY 01/08 1416 AC 01/08 PO 1603 Ramelteon 8 MG AT BEDTIME 01/05 2200 AC 01/08 PO 2107 Senna 187 MG AT BEDTIME 01/08 2200 AC 01/08 PO 2107 Sertraline HCl 150 MG DAILY 01/06 1000 AC 01/09 PO 0816 Sevelamer Carbonate 1,600 MG TIDAC 01/06 1200 AC 01/08 PO 1810 Trazodone HCl 150 MG QPM 01/05 2200 AC 01/08 PO 2107 Last 24 Hrs of Lab/Angus Results Last 24 Hrs of Labs/Mics: Laboratory Tests 01/09/18 0714: Anion Gap 17 H, Estimated GFR 14 L, BUN/Creatinine Ratio 9.1, Calcium 7.2 L, Phosphorus 4.2, Magnesium 2.0, Total Bilirubin 3.2 H, Direct Bilirubin 3.0 H, AST 28, ALT 44, Alkaline Phosphatase 396 H, Total Protein 5.7 L, Albumin 2.9 L, CBC w Diff Pending, WBC Pending, RBC Pending, Hgb Pending, Hct Pending, MCV Pending, MCH Pending, MCHC Pending, RDW Pending, Plt Count Pending, MPV Pending, Gran % Pending, Lymphocytes % Pending, Monocytes % Pending, Eosinophils % Pending, Basophils % Pending, Absolute Granulocytes Pending, Absolute Lymphocytes Pending, Absolute Monocytes Pending, Absolute Eosinophils Pending, Absolute Basophils Pending Assessment/Plan Assessment: Mr. Dodd is a 68-year-old male with PMH of CAD S/P 6 stents, COPD on home oxygen 2 L, ESRD on HD with left arm aVF, hypertension, hyperlipidemia, PVD, chronic back pain, diabetes, thyroid cancer status post thyroidectomy, chronic BUE BLE muscle pain/weakness, CBP, anxiety/depression, presented to ER with chief complaint of generalized pain over the body, and inability to ambulate due to the right knee pain. Patient reported pain in his bilateral knees, and a mechanical for 2 weeks ago, however now the pain is mostly in his right knee, and inability to bend or move without being painful, is feeling of sharp knife stabbing pain 7-8/10, no radiations, and denies fever/chills. Patient also reported multiple chronic pulses especially on his bilateral upper and lower extremities. Due to the knee pain, patient was unable to make to dialysis today and presented to the ER for further evaluation. Patient denies any loss of consciousness/chest pain/palpitations/dyspnea/pedal edema. Patient was supposed to get angiogram for evaluation of peripheral vascular disease by Dr. Rodriguez. Dr. Rodriguez was contacted over the phone, and confirmed up appointment to be around 01/13/2018. On admission, Vitals: Afebrile BP 70s-90s/40s-50s, HR 90s, satting 99% on room air -CBC: WBC 9.5 (91% granulocytes), H/H 12.4/47.0 (anemia of chronic disease), PLT 181, -BMP: NA 144, K5.1, BUN 57, CR 5.6 (ESRD), EGFR 10, glucose 196, CA 7.4, bicarb 19 (metabolic acidosis) -Misc: ALK P 41, troponin 1 0.17, CRP 3.6, ESR 20, -CXR: 1. Slight interval increase elevation of the right hemidiaphragm. Small right effusion. Right basilar atelectasis. 2. No acute osseous abnormality appreciated in the chest or pelvis. -Knee Xray: 1. RIGHT KNEE: Chondrocalcinosis. No evidence of acute injury. 2. LEFT KNEE: Chondrocalcinosis. Minor spurring of the patella. No evidence of acute injury. -Pelvis XR: 1. Slight interval increase elevation of the right hemidiaphragm. Small right effusion. Right basilar atelectasis. 2. No acute osseous abnormality appreciated in the chest or pelvis. -BLE V-doppler: Negative for DVT -EKG: Pending. -Interventions in ER: IVF 2.5 L bolus, Zofran, Tylenol, Epogen 4000 units IV Tuesday scheduled. Problem list #Elevated Trop, likely type II AK #R knee pain #Cellulitis of inner R thigh #Chronic chest discomfort #ESRD on HD #New onset Ascites #Right renal mass #Hypocalcemia #PVD pending angiogram #PMH of CAD S/P 6 stents, hypertension, hyperlipidemia, PVD, chronic back pain, diabetes, thyroid cance status post thyroidectomy, CBP, anxiety/depression Plan -COntinue telemetry to increase, pending repeat Echo. hypotensive today w/ SBP around 80s, however asymptomatic. Low threshold for ICU transfer. - Pending dialysis on Wednesday 01/10 -Continue Cleocin and Unasyn for Inner R thigh cellulitis. BC had NGTD. -Plan for Paracentesis of new onset ascites by IR, pending scheduling if capable from clinical conditions. hypotension. -Urology consult recommended serial images f.u for right renal cyst in outpatient. currently no inhospital intervention. DVT prophylaxis ALPS Dialysis diet Full Code Problem List: 1. ESRD (end stage renal disease) on dialysis Pain Ratin Pain Location: R knee Pain Goal: Pain 4 or less Pain Plan: see AP Tomorrow's Labs & Rationales: CBC/BEP Vale Diehl 01/09/18 1337: Attending MD Review Statement Attending Statement Attending MD Statement: examined this patient, discuss w/resident/PA/ASBESTOS HANDLER, agreed w/resident/PA/ASBESTOS HANDLER, discussed with family, reviewed EMR data (avail), discussed with nursing, discussed with case mgmt, reviewed images, amended to note Attending Assessment/Plan: 68 o/m with ESRD on HD, Left lower extremity cellultiis being treated with abx no evidence of necrotizing fascitis. Surgery consulted no acute intervention. Nephrology and dialysis plan as per nephrology. Consult dermatology for erythema and swelling on lower extrmeity. IR consult for posible paracentesis if BP allows.
[2018-01-09 07:48] LABS: ABSOLUTE BASOPHIL COUNT 0 /CUMM (0.0-0.2); ABSOLUTE EOSINOPHIL COUNT 0 /CUMM (0.0-0.7); ABSOLUTE GRANULOCYTE CT 5.1 /CUMM (1.4-6.5); ABSOLUTE LYMPH COUNT 0.4 /CUMM (1.2-3.4); ABSOLUTE MONOCYTE COUNT 0.4 /CUMM (0.10-0.60); BASOPHIL % 0.2 % (0.0-2.0); EOSINOPHIL % 0.3 % (0-5); GRANULOCYTE % 86.8 % (42.2-75.2); HEMATOCRIT 37.7 % (42-52); MEAN CORPUSCULAR HGB CONC 32.5 G/DL (33.0-37.0); MEAN CORPUSCULAR VOLUME 92.1 FL (80.0-94.0); MEAN PLATELET VOLUME 8.4 FL (7.4-10.4); PLATELET COUNT 186 /CUMM (130-400); RBC DISTRIBUTION WIDTH 19.4 % (11.5-14.5); RED BLOOD CELL CT 4.09 /CUMM (4.70-6.10); WHITE BLOOD CELL COUNT 5.9 /CUMM (4.8-10.8)
[2018-01-09 14:54] VITALS: BP 80/60
--- NOTE | 2018-01-09 15:25 | PN- Nephrology ---
Assessment/Plan Nephrology Assessment: 1. ESRD 2. Cellulitis right lower extremity medial to knee; I am somewhat concerned that this may represent a calciphylaxis lesion 3. Hypotension - chronic with exacerbations 4. 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 acute 5. Right upper pole renal mass Suggestion: 1. No dialysis need today; will schedule for tomorrow 2. Suggest dermatology and ID consults 3. Check PTH and vitamin D levels with dialysis tomorrow 4. Discontinue calcium acetate 5. Continue empiric antibiotic coverage for now Subjective Subjective: Patient continues to complain of severe pain both generalized and specifically in the area of the leg around right knee, especially medially. He remains afebrile with normal WBC and with systolic blood pressures generally between 80 and 100. All cultures remain negative. Imaging studies of right lower extremities show no specific pathology. Objective Vital Signs and I&Os Vital Signs Date Time Temp Pulse Resp B/P B/P Pulse O2 O2 Flow FiO2 Mean Ox Delivery Rate 01/09 1506 Room Air 2.0L 01/09 1454 98.6 72 18 80/60 89 Room Air 01/09 0658 97.5 56 20 100/60 92 Room Air 01/09 0000 Nasal 2.0L Cannula 01/08 2300 97.6 92 20 90/00 94 01/08 1704 97 80/00 01/08 1600 94 Room Air Intake & Output 01/09 1600 01/09 0400 01/08 1600 01/08 0400 01/07 1600 01/07 0400 Intake Total 687 760 1689 240 700 300 Output Total 0 0 800 Balance 068 838 8101 240 -100 300 Intake, IV 150 80 180 Intake, Oral 449 740 4678 240 700 300 Number 1 0 0 Bowel Movements Output, 800 Dialysate Output, Urine 0 0 Patient 203 lb 203 lb 188 lb 190 lb 191 lb Weight Weight Bed scale Measurement Method Physical Exam: General: Well-developed white male, complaining of both generalized and right lower extremity pain Skin: Generalized skin rash with areas of macules, papules, excoriations, as well as discoloration in pretibial regions and feet; no jaundice HEENT: Conjunctivae pink, sclerae anicteric, mucous membranes moist Chest: Clear with diminished BS at bases Heart: Regular rate and rhythm without S3 or rub Abdomen: Distended but soft with mod diffuse tenderness without palpable masses or organomegaly Extremities: Areas of dry gangrene and necrosis in multiple toes bilaterally; 1+ edema; the left upper arm AVF is patent Neuro: Awake, alert, c/o diffuse pain as well as pain around the right knee area , no asterixis or myoclonus Results Pertinent Lab Results: Laboratory Tests 01/09 01/08 0714 0720 Chemistry Sodium (137 - 145 mmol/L) 132 L 134 L Potassium (3.5 - 5.1 mmol/L) 4.6 4.3 Chloride (98 - 107 mmol/L) 93 L 95 L Carbon Dioxide (22 - 30 mmol/L) 23 24 Anion Gap (5 - 16) 17 H 15 BUN (9 - 20 mg/dL) 40 H 31 H Creatinine (0.7 - 1.2 mg/dL) 4.4 H 3.7 H Estimated GFR (>60 ml/min) 14 L 17 L BUN/Creatinine Ratio (7 - 25 %) 9.1 8.4 Calcium (8.4 - 10.2 mg/dL) 7.2 L Phosphorus (2.5 - 4.5 mg/dL) 4.2 Magnesium (1.6 - 2.3 mg/dL) 2.0 Total Bilirubin (0.2 - 1.3 mg/dL) 3.2 H 3.2 H Direct Bilirubin (< 0.4 mg/dL) 3.0 H 2.9 H AST (17 - 59 U/L) 28 40 ALT (21 - 72 U/L) 44 46 Alkaline Phosphatase (< 127 U/L) 396 H 423 H Troponin I (<0.11 ng/ml) 1.58 *H Total Protein (6.3 - 8.2 g/dL) 5.7 L 6.1 L Albumin (3.5 - 5.0 g/dL) 2.9 L 3.1 L Hematology CBC w Diff NO MAN DIFF REQ MAN DIFF ORDERED WBC (4.8 - 10.8 /CUMM) 5.9 8.5 RBC (4.70 - 6.10 /CUMM) 4.09 L 4.12 L Hgb (14.0 - 18.0 G/DL) 12.3 L 12.3 L Hct (42 - 52 %) 37.7 L 38.1 L MCV (80.0 - 94.0 FL) 92.1 92.5 MCH (27.0 - 31.0 PG) 30.0 30.0 MCHC (33.0 - 37.0 G/DL) 32.5 L 32.4 L RDW (11.5 - 14.5 %) 19.4 H 20.5 H Plt Count (130 - 400 /CUMM) 186 191 MPV (7.4 - 10.4 FL) 8.4 8.5 Gran % (42.2 - 75.2 %) 86.8 H 83.3 H Lymphocytes % (20.5 - 51.1 %) 6.1 L 9.3 L Monocytes % (1.7 - 9.3 %) 6.6 7.3 Eosinophils % (0 - 5 %) 0.3 0.1 Basophils % (0.0 - 2.0 %) 0.2 0 Absolute Granulocytes (1.4 - 6.5 /CUMM) 5.1 7.1 H Absolute Lymphocytes (1.2 - 3.4 /CUMM) 0.4 L 0.8 L Absolute Monocytes (0.10 - 0.60 /CUMM) 0.4 0.6 Absolute Eosinophils (0.0 - 0.7 /CUMM) 0 0 Absolute Basophils (0.0 - 0.2 /CUMM) 0 0 Platelet Estimate (ADEQUATE) VERIFIED BY SMEAR Anisocytosis 2+ 01/07 01/07 01/07 1715 1115 0800 Chemistry Sodium (137 - 145 mmol/L) 133 L Potassium (3.5 - 5.1 mmol/L) 4.9 Chloride (98 - 107 mmol/L) 94 L Carbon Dioxide (22 - 30 mmol/L) 23 Anion Gap (5 - 16) 15 BUN (9 - 20 mg/dL) 48 H Creatinine (0.7 - 1.2 mg/dL) 4.5 H Estimated GFR (>60 ml/min) 13 L BUN/Creatinine Ratio (7 - 25 %) 10.7 Glucose (65 - 99 mg/dL) 140 H Calcium (8.4 - 10.2 mg/dL) 7.2 L Troponin I (<0.11 ng/ml) 1.98 *H 2.78 *H Hematology CBC w Diff MAN DIFF ORDERED WBC (4.8 - 10.8 /CUMM) 10.0 RBC (4.70 - 6.10 /CUMM) 4.09 L Hgb (14.0 - 18.0 G/DL) 12.1 L Hct (42 - 52 %) 37.3 L MCV (80.0 - 94.0 FL) 91.2 MCH (27.0 - 31.0 PG) 29.5 MCHC (33.0 - 37.0 G/DL) 32.3 L RDW (11.5 - 14.5 %) 19.7 H Plt Count (130 - 400 /CUMM) 206 MPV (7.4 - 10.4 FL) 8.6 Gran % (42.2 - 75.2 %) 85.4 H Lymphocytes % (20.5 - 51.1 %) 6.9 L Monocytes % (1.7 - 9.3 %) 7.1 Eosinophils % (0 - 5 %) 0.6 Basophils % (0.0 - 2.0 %) 0 Absolute Granulocytes (1.4 - 6.5 /CUMM) 8.5 H Segmented Neutrophils (42.2 - 75.2 %) 83 H Band Neutrophils (0.0 - 5.0 %) 5 Absolute Lymphocytes (1.2 - 3.4 /CUMM) 0.7 L Lymphocytes (20.5 - 51.1 %) 7 L Monocytes (1.7 - 9.3 %) 5 Absolute Monocytes (0.10 - 0.60 /CUMM) 0.7 H Absolute Eosinophils (0.0 - 0.7 /CUMM) 0.1 Absolute Basophils (0.0 - 0.2 /CUMM) 0 Platelet Estimate (ADEQUATE) VERIFIED BY SMEAR Polychromasia 1+ Anisocytosis + 01/07 01/07 01/06 0630 5150 1999 Chemistry Lactic Acid (0.7 - 2.1 mmol/L) 2.0 2.7 H Troponin I (<0.11 ng/ml) 2.53 *H 2.28 *H Hematology CBC w Diff NO MAN DIFF REQ WBC (4.8 - 10.8 /CUMM) 10.9 H RBC (4.70 - 6.10 /CUMM) 4.12 L Hgb (14.0 - 18.0 G/DL) 12.3 L Hct (42 - 52 %) 38.0 L MCV (80.0 - 94.0 FL) 92.2 MCH (27.0 - 31.0 PG) 29.9 MCHC (33.0 - 37.0 G/DL) 32.5 L RDW (11.5 - 14.5 %) 19.8 H Plt Count (130 - 400 /CUMM) 181 MPV (7.4 - 10.4 FL) 8.9 Gran % (42.2 - 75.2 %) 84.2 H Lymphocytes % (20.5 - 51.1 %) 8.7 L Monocytes % (1.7 - 9.3 %) 7.0 Eosinophils % (0 - 5 %) 0.1 Basophils % (0.0 - 2.0 %) 0 Absolute Granulocytes (1.4 - 6.5 /CUMM) 9.2 H Absolute Lymphocytes (1.2 - 3.4 /CUMM) 1.0 L Absolute Monocytes (0.10 - 0.60 /CUMM) 0.8 H Absolute Eosinophils (0.0 - 0.7 /CUMM) 0 Absolute Basophils (0.0 - 0.2 /CUMM) 0
--- NOTE | 2018-01-09 18:10 | Cons- Infect Disease ---
General Information and HPI Consulting Request Date of Consult: 01/09/18 Requested By: Vale Diehl MD Reason for Consult: Rule out cellulitis of the right inner thigh Source of Information: patient, old records History of Present Illness: This is a 68-year-old man with a history of hypertension, coronary artery disease, status post multiple stents, COPD, maintained on 2 L of oxygen, chronic back pain, diabetes, complicated by end-stage renal disease, maintained on hemodialysis Tuesdays, and Saturdays via a left upper extremity AV fistula, and peripheral vascular disease, scheduled for a lower extremity angiogram later this week, admitted on January 05 with a painful lesion on the medial aspect of his right thigh beginning several days prior to admission and making ambulation increasingly difficult, with no associated fevers or chills. On admission he was afebrile. Laboratory data revealed a white blood cell count of 9.5, BUN/creatinine 57 and 5.6, phosphorus 6.4, bilirubin 3.4, alkaline phosphatase 431, troponin 0.17. Bilateral lower extremity Dopplers were negative for DVT. Chest x-ray revealed a small right effusion and right basilar atelectasis. X-ray of the pelvis was negative for any fracture. X-rays of both knees revealed chondrocalcinosis. CT of the chest, abdomen and pelvis revealed small bilateral pleural effusions, right greater than left, right middle lobe atelectasis a large volume of abdominal and pelvic ascites and an exophytic mass arising from the upper pole of the right kidney. Late on January 07 he was begun on Unasyn and Clindamycin. He has remained afebrile and his white blood cell count has actually decreased. He noted some improvement in the pain this morning but still notes severe pain with any palpation or movement of the leg. He was evaluated by Vascular surgery and is scheduled for a biopsy/debridement in the a.m. Allergies/Medications Allergies: Coded Allergies: morphine (Mild, LOOPY 01/18/17) hydromorphone (DEPRESSED RESPIRATIONS 01/18/17) Home Med List: Alprazolam (Xanax) 0.5 MG TABLET 1 TAB PO BID PRN ANXIETY Aspirin (Ecotrin*) 81 MG TABLET.DR 1 TAB PO DAILY HEART HEALTH (Reported) Calcium Acetate 667 MG CAPSULE 2 CAP PO TID UNKNOWN (Reported) Clopidogrel Bisulfate (Plavix) 75 MG TABLET 75 MG PO DAILY ANTIPLATELET Folic Acid 1 MG TABLET 1 TAB PO DAILY SUPPLEMENT (Reported) Furosemide (Lasix) 80 MG TABLET 1 TAB PO DAILY WATER RETENTION (Reported) Hydrocodone/Acetaminophen (Hydrocodon-Acetaminophen 5-325) 5 MG-325 MG TABLET 1 TAB PO Q8 PRN PAIN (Reported) Hydroxyzine Hydrochloride (Atarax) 25 MG TAB 1 TAB PO TID PRN ITCHING ONLY 10 PILLS. Insulin Aspart (Novolog) 100 UNIT/ML CARTRIDGE 0 SC TIDAC DIABETES BEFORE MEALS... Blood Insulin Sugar Units <80 0 81-150 3 151-200 4 201-250 6 251-300 7 301-350 8 351-400 9 >400 10 Call Doctor Isosorbide Mononitrate (Isosorbide Mononitrate ER) 60 MG TAB.ER.24H 1 TAB PO DAILY CAD Levothyroxine Sodium 200 MCG TABLET 1 TAB PO DAILY AC THYROID (Reported) Losartan Potassium 50 MG TABLET 50 MG PO DAILY high BP Metoprolol Succinate 25 MG TAB 1 TAB PO DAILY HEART (Reported) Nitroglycerin 0.4 MG TAB.SUBL 1 TAB SL DAILY PRN CHEST PAIN (Reported) 1st sign of attack; may repeat every 5 minutes until relief; if pain persists after 3 tablets in 15 minutes, prompt medical att Ramelteon (Rozerem) 8 MG TABLET 1 TAB PO AT BEDTIME SLEEP HELP Sertraline HCl (Zoloft) 100 MG TABLET 1.5 TAB PO DAILY ANXIETY (Reported) Sevelamer Carbonate (Renvela) 800 MG TABLET 2 TAB PO TIDAC ERSD (Reported) Trazodone HCl 150 MG TABLET 1 TAB PO QPM SLEEP (Reported) Past History Travel History Traveled to [place] past 21 day No Medical History Neurological: proximal muscle pain & weakness UE/LE B/L EENT: NONE Cardiovascular: CAD, hypertension, hyperlipidemia, PVD, 6 CARDIAC STENTS Respiratory: COPD (on 2lpm O2) Gastrointestinal: hx colon polyps Hepatic: cholelithiasis (vs. GB sludge) Renal: chronic kidney disease, ESRD on HD, L ARM AVF PLACED 01/17/17 Musculoskeletal: chronic back pain Psychiatric: anxiety, depression, substance abuse (previously) Endocrine: diabetes Blood Disorders: NONE Cancer(s): THYROID [place] [employer]OR/Reproductive: NONE History of MRSA: No History of VRE: No History of CDIFF: No Isolation History: Standard Influenza Vaccine: 08/12/17 Surgical History Surgical History: spinal fusion (C4/C5), THYROIDECTOMY LEFT LEG FX REPAIR ELBOW FX REPAIR LUE AV fistula Family History Relations & Conditions If Any: FATHER, , Age 87; Cause: Old age. FH: heart disease MOTHER, , Age 85; Cause: ASHD (arteriosclerotic heart disease). Relation not specified for: FH: diabetes mellitus FH: hypertension Psychosocial History Where Do You Live? Home Who Do You Live With? girlfriend Services at Home: Home Health Aide, Nursing, Oxygen, Physical Therapy Primary Language: Tanzanian Smoking Status: Former Smoker (quit>5yrs) ETOH Use: heavy use, quitted 25 years ago Illicit Drug Use: denies illicit drug use Living Will? no Power of Harvest Contractor/HCP? no Functional Ability ADLs Independent: dressing, eating, toileting, bathing. Ambulation: independent (and/or rolling walker), cane IADLs Independent: shopping, housework, finances, food prep, telephone, transportation , medication admin. Review of Systems Review of Systems All Other Systems: Reviewed and Negative Exam & Diagnostic Data Last 24 Hrs of Vital Signs/I&O Vital Signs Date Time Temp Pulse Resp B/P B/P Pulse O2 O2 Flow FiO2 Mean Ox Delivery Rate 01/09 1506 Room Air 2.0L 01/09 1454 98.6 72 18 80/60 89 Room Air 01/09 0658 97.5 56 20 100/60 92 Room Air 01/09 0000 Nasal 2.0L Cannula 01/08 2300 97.6 92 20 90/00 94 Intake & Output 01/09 1600 01/09 0800 / 0000 Intake Total 630 300 860 Output Total 0 Balance 630 300 860 Intake, IV 150 80 Intake, Oral 480 300 780 Number 1 0 Bowel Movements Output, Urine 0 Patient 203 lb 203 lb Weight Physical Exam Other Physical Findings: Afebrile. He is awake and alert in no acute distress. Skin reveals multiple necrotic lesions on the digits of his upper and lower extremities. HEENT poor dentition. Neck is supple with no adenopathy. Lungs are clear. Heart regular rhythm with no murmur. Abdomen is distended, nontender with positive bowel sounds. Back no CVA tenderness. Extremities necrotic lesion on the medial aspect of his right thigh, especially tender to palpation, with surrounding erythema; both lower extremities are cool to touch, with decreased pulses both feet; bilateral necrotic finger, toe and heel lesions. Neuro is without focality. Last 24 Hours of Lab Results: Laboratory Tests 01/09 0714 Chemistry Sodium (137 - 145 mmol/L) 132 L Potassium (3.5 - 5.1 mmol/L) 4.6 Chloride (98 - 107 mmol/L) 93 L Carbon Dioxide (22 - 30 mmol/L) 23 Anion Gap (5 - 16) 17 H BUN (9 - 20 mg/dL) 40 H Creatinine (0.7 - 1.2 mg/dL) 4.4 H Estimated GFR (>60 ml/min) 14 L BUN/Creatinine Ratio (7 - 25 %) 9.1 Calcium (8.4 - 10.2 mg/dL) 7.2 L Phosphorus (2.5 - 4.5 mg/dL) 4.2 Magnesium (1.6 - 2.3 mg/dL) 2.0 Total Bilirubin (0.2 - 1.3 mg/dL) 3.2 H Direct Bilirubin (< 0.4 mg/dL) 3.0 H AST (17 - 59 U/L) 28 ALT (21 - 72 U/L) 44 Alkaline Phosphatase (< 127 U/L) 396 H Total Protein (6.3 - 8.2 g/dL) 5.7 L Albumin (3.5 - 5.0 g/dL) 2.9 L Hematology CBC w Diff NO MAN DIFF REQ WBC (4.8 - 10.8 /CUMM) 5.9 RBC (4.70 - 6.10 /CUMM) 4.09 L Hgb (14.0 - 18.0 G/DL) 12.3 L Hct (42 - 52 %) 37.7 L MCV (80.0 - 94.0 FL) 92.1 MCH (27.0 - 31.0 PG) 30.0 MCHC (33.0 - 37.0 G/DL) 32.5 L RDW (11.5 - 14.5 %) 19.4 H Plt Count (130 - 400 /CUMM) 186 MPV (7.4 - 10.4 FL) 8.4 Gran % (42.2 - 75.2 %) 86.8 H Lymphocytes % (20.5 - 51.1 %) 6.1 L Monocytes % (1.7 - 9.3 %) 6.6 Eosinophils % (0 - 5 %) 0.3 Basophils % (0.0 - 2.0 %) 0.2 Absolute Granulocytes (1.4 - 6.5 /CUMM) 5.1 Absolute Lymphocytes (1.2 - 3.4 /CUMM) 0.4 L Absolute Monocytes (0.10 - 0.60 /CUMM) 0.4 Absolute Eosinophils (0.0 - 0.7 /CUMM) 0 Absolute Basophils (0.0 - 0.2 /CUMM) 0 Last 24 Hours of Angus Results: Blood cultures 2 January 05 negative Diagnostic Data Recent Imaging Findings: Bilateral lower extremity Dopplers January 05 were negative for DVT. Doppler of the right lower extremity January 07 negative Chest x-ray January 05 revealed a small right effusion and right basilar atelectasis. X-ray of the pelvis January 05 was negative for any fracture. X-rays of both knees January [address] of the chest, abdomen and pelvis January 05 revealed small bilateral pleural effusions, right greater than left, right middle lobe atelectasis, large volume of abdominal and pelvic ascites and an exophytic mass arising from the upper pole of the right kidney. Ultrasound of the right medial thigh January 07 reveals mild subcutaneous edema with no focal mass or collection Assessment/Plan Assessment/Plan Impression: This is a 68-year-old man with a history of diabetes, complicated by end-stage renal disease, maintained on hemodialysis Tuesdays, and Saturdays via a left upper extremity AV fistula, and peripheral vascular disease admitted on January 05 with a painful lesion on the medial aspect of his right thigh, beginning several days prior to admission and making ambulation increasingly difficult, with no associated fevers or chills, begun on antibiotics 2 days after admission for a possible cellulitis and now scheduled for a biopsy/ debridement of this lesion in the a.m.. 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 He does have surrounding erythema and , though he had no fever or significant leucocytosis, the possibility of a bacterial superinfection can be considered and he can be continued on antibiotics, though his regimen can be adjusted. He clearly has evidence of peripheral vascular disease and was already scheduled for a bilateral lower extremity angiogram, which may be able to be done on this admission. His ascites suggest an element of fluid overload and a diagnostic paracentesis could be considered as well. Other issues include the renal mass, seen on previous studies and felt to represent a cyst, and elevated liver enzymes, with evaluation in the past revealing gallstones with no obstruction. Suggestion: 1. Await biopsy of the right medial thigh necrotic lesion in the a.m. 2. Further evaluation, including bilateral lower extremity angiogram, per Vascular Surgery 3. Would defer treatment for possible calciphylaxis to Renal 4. Consider paracentesis 5. Discontinue Clindamycin 6. Continue Unasyn Consult Acknowledgment - Thank you for your consult request.
--- NOTE | 2018-01-09 20:54 | PN- Cardiology ---
Subjective Subjective: cardiac status unchanged. Continues to complain of right lower extremity discomfort with any movement. Objective Vital Signs and I&Os Vital Signs Date Time Temp Pulse Resp B/P B/P Pulse O2 O2 Flow FiO2 Mean Ox Delivery Rate 01/09 1506 Room Air 2.0L 01/09 1454 98.6 72 18 80/60 89 Room Air 01/09 0658 97.5 56 20 100/60 92 Room Air 01/09 0000 Nasal 2.0L Cannula 01/08 2300 97.6 92 20 90/00 94 Intake & Output 01/09 1600 01/09 0800 01/09 0000 01/08 1600 01/08 0801/08 0000 Intake Total 630 737 092 3473 300 240 Output Total 0 0 Balance 630 722 638 5494 300 240 Intake, IV 150 80 180 Intake, Oral 480 300 780 860 300 240 Number 1 0 0 Bowel Movements Output, Urine 0 0 Patient 203 lb 203 lb 188 lb Weight Current Medications: Current Medications Sig/Julissa Start time Last Medication Dose Route Stop Time Status Admin Al Hydroxide/Mg 30 ML .STK-MED ONE 01/09 041 DC Hydroxide PO 01/09 0419 Al Hydroxide/Mg 30 ML ONCE ONE 01/09 0415 DC 01/09 Hydroxide PO 01/09 0416 0419 Albuterol Sulfate 3 ML TID 01/07 2200 AC INH Alprazolam 0.5 MG BID PRN 01/05 1700 AC 01/07 PO 01/12 1659 2134 Ampicillin Sodium/ 1,500 MG Q12 01/07 2200 AC 01/09 Sulbactam Sodium IV 0813 Sodium Chloride 100 ML Aspirin Buffered 81 MG DAILY 01/06 1000 AC 01/09 PO 0816 Bisacodyl 10 MG ONCE ONE 01/09 0845 DC 01/09 ME 01/09 0846 0934 Calcium Acetate 1,334 MG WM 01/08 1200 DC 01/09 PO 1151 Clindamycin 600 MG IQ8 01/08 0000 DC 01/09 Dextrose/Water 50 ML IV 0720 Clopidogrel Bisulfate 75 MG DAILY 01/06 1000 AC 01/09 PO 0816 Epoetin [place] 4,000 UNIT TuThSa PRN 01/05 1445 AC IV Folic Acid 1 MG DAILY 01/06 1000 AC 01/08 PO 0956 Furosemide 40 MG ONE ONE 01/09 1600 CAN PO 01/09 1601 Heparin Sodium 5,000 UNIT Q8 01/05 2200 AC 01/09 (Porcine) SC 1325 Hydrocodone Bitart/ 1 TAB Q8P PRN 01/05 1930 AC 01/09 Acetaminophen PO 1652 Insulin Aspart 0 TIDAC 01/08 1200 AC 01/09 SC 1652 Ipratropium [place] 2.5 ML TID 01/07 2200 AC INH Levothyroxine Sodium 0.2 MG DAILY AC 01/06 0700 AC 01/09 PO 0501 Metoclopramide HCl 10 MG Q6P PRN 01/06 0830 AC 01/08 IV 1338 Pantoprazole Sodium 40 MG DAILY 01/06 1000 AC 01/09 IV 0816 Polyethylene Glycol 17 GM DAILY 01/08 1416 AC 01/08 PO 1603 Ramelteon 8 MG AT BEDTIME 01/05 220 AC 01/08 PO 2107 Senna 187 MG AT BEDTIME 01/08 2200 AC 01/08 PO 2107 Sertraline HCl 150 MG DAILY 01/06 1000 AC 01/09 PO 0816 Sevelamer Carbonate 1,600 MG TIDAC 01/06 1200 AC 01/09 PO 1652 Sodium Phosphate 1 UNIT ONCE ONE 01/09 1200 DC 01/09 ME 01/09 1201 1258 Trazodone HCl 150 MG QPM 01/05 220 AC 01/08 PO 2107 Results Last 48 Hrs of Labs/Mics: Laboratory Tests 01/09/18 0714: Anion Gap 17 H, Estimated GFR 14 L, BUN/Creatinine Ratio 9.1, Calcium 7.2 L, Phosphorus 4.2, Magnesium 2.0, Total Bilirubin 3.2 H, Direct Bilirubin 3.0 H, AST 28, ALT 44, Alkaline Phosphatase 396 H, Total Protein 5.7 L, Albumin 2.9 L, CBC w Diff NO MAN DIFF REQ, RBC 4.09 L, MCV 92.1, MCH 30.0, MCHC 32.5 L, RDW 19.4 H, MPV 8.4, Gran % 86.8 H, Lymphocytes % 6.1 L, Monocytes % 6.6, Eosinophils % 0.3, Basophils % 0.2, Absolute Granulocytes 5.1, Absolute Lymphocytes 0.4 L, Absolute Monocytes 0.4, Absolute Eosinophils 0, Absolute Basophils 0 01/08/18 0720: Anion Gap 15, Estimated GFR 17 L, BUN/Creatinine Ratio 8.4, Total Bilirubin 3.2 H, Direct Bilirubin 2.9 H, AST 40, ALT 46, Alkaline Phosphatase 423 H, Troponin I 1.58 *H, Total Protein 6.1 L, Albumin 3.1 L, CBC w Diff MAN DIFF ORDERED, RBC 4.12 L, MCV 92.5, MCH 30.0, MCHC 32.4 L, RDW 20.5 H, MPV 8.5, Gran % 83.3 H, Lymphocytes % 9.3 L, Monocytes % 7.3, Eosinophils % 0.1, Basophils % 0, Absolute Granulocytes 7.1 H, Absolute Lymphocytes 0.8 L, Absolute Monocytes 0.6, Absolute Eosinophils 0, Absolute Basophils 0, Platelet Estimate VERIFIED BY SMEAR, Anisocytosis 2+ Assessment/Plan Assessment/Plan 1. Elevated troponins unlikely due to acute coronary syndrome 2. Generalized pain 3. Chronic issues with lower extremity arterial and venous insufficiency/PAD/ PVI 4. End-stage renal disease on hemodialysis 5. Elevated bilirubin 6. Abdominal ascites 7. History of ischemic cardiomyopathy 8. Cellulitis The patient's blood pressure remains borderline but he is alert and mentating appropriately. He is on antibiotics. Denies chest pain or dyspnea; troponins are declining. Repeat echocardiogram pending. Blood pressure will not tolerate restarting his anti-myopathic regimen currently. Dialysis schedule with fluid removal per renal. Continue telemetry? Yes
[2018-01-09 22:16] VITALS: BP 104/76
--- NOTE | 2018-01-10 06:55 | ECHOCARDIOGRAM REPORT ---
DEEPIKA BRANDT Age: 68 : 1950 Gender: M Exam Date: 01/09/2018 10:11 Exam Location: [place] Ht (in): 70 Wt (lb): 190 BSA: 2.08 BP: 120 / 60 Ordering Physician: Javier Sims MD Referring Physician: Javier Sims MD Technologist: Luca Babb [facility] Room Number: 189-2 Indications: Chest Pain Rhythm: Sinus Technical Quality: Fair FINDINGS Left Ventricle Left ventricular dilatation. Severely reduced global left ventricular systolic function. Moderately abnormal left ventricular ejection fraction estimated at 20-25%. [place] akinetic. Right Ventricle Right ventricular dilatation. Right Atrium Right atrial dilatation. Left Atrium Moderate left atrial dilatation. Mitral Valve Mitral valve thickened. Mitral annular calcification. Mild-to- moderate mitral regurgitation. Aortic Valve Trileaflet aortic valve. Diffuse thickening (sclerosis) of the aortic valve cusps without reduced excursion. No aortic stenosis. No aortic regurgitation. Tricuspid Valve Tricuspid valve not well visualized, grossly normal. Moderate tricuspid regurgitation. Right ventricular systolic pressure estimated at 26 mmHg. Pulmonic Valve Pulmonic valve not well visualized, grossly normal. Mild pulmonic regurgitation. Pericardium Normal pericardium. No pericardial effusion. Great Vessels Normal size aortic root and proximal ascending aorta. CONCLUSIONS 1. This was a technically difficult study 2. Mild to moderate aortic sclerosis is present with no valvular stenosis or insufficiency. 3. Mitral leaflet thickening is present with mild annular calcification and mild to moderate mitral insufficiency with moderate left atrial enlargement. 4. There is no significant pericardial fluid detected on the study. 5. The left ventricular chamber is minimally dilated with eccentric hypertrophy and global hypokinesia. The hypokinesia is significantly worse in the anteroseptal and anteroapical segments. The apex is essentially akinetic. The ejection fraction is approximately 25%. Additional images were obtained following the administration of IV contrast 6. Right heart chamber enlargement is present. Moderate tricuspid insufficiency is present with mild pulmonic insufficiency. The right ventricular systolic pressure is 26 mmHg. Lilibeth Lee M.D. (Electronically Signed) Final Date: 10 January 2018 06:55 MEASUREMENTS (Male / Female) Normal Values 2D ECHO LV Diastolic Diameter PLAX 5.7 cm 4.2 - 5.9 / 3.9 - 5.3 cm LV Systolic Diameter PLAX 4.9 cm 2.1 - 4.0 cm LV Fractional Shortening PLAX 14.0 % 25 - 46 % LV Ejection Fraction 2D Teich 29.5 % IVS Diastolic Thickness 1.2 cm LVPW Diastolic Thickness 1.2 cm LV Relative Wall Thickness 0.4 RV Internal Dim ED PLAX 4.5 cm 1.9 - 3.8 cm LVOT Diameter 1.9 cm Aortic Root Diameter 2.7 cm LA Systolic Diameter LX 5.3 cm 3.0 - 4.0 / 2.7 - 3.8 cm LV Ejection Fraction MOD BP 22.1 % >= 55 % LV Diastolic Length 4C 8.2 cm 6.9 - 10.3 cm LV Diastolic Area 4C 31.9 cm LV Diastolic Volume MOD 4C 103.0 cm LV Ejection Fraction MOD 4C 29.1 % LV Stroke Volume MOD 4C 30.0 cm LV Systolic Length 4C 8.5 cm LV Systolic Area 4C 26.6 cm LV Systolic Volume MOD 4C 73.0 cm LV Ejection Fraction MOD 2C 13.5 % LV Diastolic Volume 4C AL 105.7 cm 85 - 139 / 69 - 109 cm LV Systolic Volume 4C AL 71.2 cm LV Ejection Fraction 4C AL 32.7 % LV Stroke Volume 4C AL 34.6 cm LV Ejection Fraction 2C AL 11.2 % DOPPLER TR Peak Velocity 223.0 cm/s TR Peak Gradient 19.9 mmHg Right Atrial Pressure 10.0 mmHg Pulmonary Artery Systolic Pressu 29.9 mmHg Right Ventricular Systolic Press 29.9 mmHg PV Peak Velocity 59.3 cm/s PV Peak Gradient 1.4 mmHg PV Mean Velocity 40.4 cm/s PV Mean Gradient 1.0 mmHg PV Velocity Time Integral 10.2 cm
[2018-01-10 06:56] VITALS: BP 100/58
--- NOTE | 2018-01-10 07:36 | PN- Housestaff ---
Trina Mayes Wisam Terry 01/10/18 0735: Subjective Follow-up For: #Elevated Trop, likely type II DC #R knee pain #Chronic chest discomfort #ESRD on HD #Hypocalcemia #PVD pending angiogram #PMH of CAD S/P 6 stents, hypertension, hyperlipidemia, PVD, chronic back pain, diabetes, thyroid cance status post thyroidectomy, CBP, anxiety/depression Tele-Events Since Last Visit: NSR Subjective: No overnight event. Patient was in dialysis this AM. Review of Systems Constitutional: Reports: see HPI. Objective Last 24 Hrs of Vital Signs/I&O Vital Signs Date Time Temp Pulse Resp B/P B/P Pulse O2 O2 Flow FiO2 Mean Ox Delivery Rate 01/10 06 97.4 86 20 100/58 96 Nasal 2.0L Cannula 01/09 221 Nasal 2.0L Cannula 01/09 221 97.6 92 19 104/76 91 01/09 1506 Room Air 2.0L 01/09 1454 98.6 72 18 80/60 89 Room Air Intake & Output 01/10 1600 01/10 0800 01/10 0000 Intake Total 20 240 Output Total Balance 20 240 Intake, Oral 20 240 Patient 93.128 kg Weight Physical Exam General Appearance: Not in room, sent for dialysis Current Medications: Current Medications Sig/Julissa Start time Last Medication Dose Route Stop Time Status Admin Albuterol Sulfate 3 ML TID 01/07 2200 AC INH Alprazolam 0.5 MG BID PRN 01/05 1700 AC 01/09 PO 01/12 1659 2317 Ampicillin Sodium/ 1,500 MG Q12 01/07 2200 AC 01/09 Sulbactam Sodium IV 2111 Sodium Chloride 100 ML Aspirin Buffered 81 MG DAILY 01/06 1000 AC 01/09 PO 0816 Bisacodyl 10 MG ONCE ONE 01/09 0845 DC 01/09 NM 01/09 0846 0934 Calcium Acetate 1,334 MG WM 01/08 1200 DC 01/09 PO 1151 Clindamycin 600 MG IQ8 01/08 0000 DC 01/09 Dextrose/Water 50 ML IV 0720 Clopidogrel Bisulfate 75 MG DAILY 01/06 1000 AC 01/09 PO 0816 Epoetin [place] 4,000 UNIT TuThSa PRN 01/05 1445 AC IV Folic Acid 1 MG DAILY 01/06 1000 AC 01/08 PO 0956 Furosemide 40 MG ONE ONE 01/09 1600 CAN PO 01/09 1601 Heparin Sodium 5,000 UNIT Q8 01/05 2200 AC 01/10 (Porcine) SC 0550 Hydrocodone Bitart/ 1 TAB Q8P PRN 01/05 1930 AC 01/09 Acetaminophen PO 1652 Insulin Aspart 0 TIDAC 01/08 1200 AC 01/09 SC 1652 Ipratropium [place] 2.5 ML TID 01/07 2200 AC INH Levothyroxine Sodium 0.2 MG DAILY AC 01/06 0700 AC 01/10 PO 0550 Metoclopramide HCl 10 MG Q6P PRN 01/06 0830 AC 01/08 IV 1338 Morphine Sulfate 1 MG ONE TIME ONE 01/09 2315 DC 01/09 IV 01/09 2316 2317 Morphine Sulfate 4 MG .STK-MED ONE 01/09 2314 DC IM 01/09 2315 Pantoprazole Sodium 40 MG DAILY 01/06 1000 AC 01/09 IV 0816 Polyethylene Glycol 17 GM DAILY 01/08 1416 AC 01/08 PO 1603 Ramelteon 8 MG AT BEDTIME 01/05 2200 AC 01/09 PO 2112 Senna 187 MG AT BEDTIME 01/08 2200 AC 01/09 PO 2112 Sertraline HCl 150 MG DAILY 01/06 1000 AC 01/09 PO 0816 Sevelamer Carbonate 1,600 MG TIDAC 01/06 1200 AC 01/09 PO 1652 Sodium Phosphate 1 UNIT ONCE ONE 01/09 1200 DC 01/09 NM 01/09 1201 1258 Trazodone HCl 150 MG QPM 01/05 2200 AC 01/09 PO 2112 Last 24 Hrs of Lab/Angus Results Last 24 Hrs of Labs/Mics: Laboratory Tests 01/10/18 0728: CBC w Diff Pending, WBC Pending, RBC Pending, Hgb Pending, Hct Pending, MCV Pending, MCH Pending, MCHC Pending, RDW Pending, Plt Count Pending, MPV Pending 01/10/18 0709: Sodium Cancelled, Potassium Cancelled, Chloride Cancelled, Carbon Dioxide Cancelled, Anion Gap Cancelled, BUN Cancelled, Creatinine Cancelled, BUN/ Creatinine Ratio Cancelled, Calcium Cancelled 01/10/18 0600: Sodium Pending, Potassium Pending, Chloride Pending, Carbon Dioxide Pending, Anion Gap Pending, BUN Pending, Creatinine Pending, BUN/Creatinine Ratio Pending , Calcium Pending, Phosphorus Pending, 25-OH Vitamin D Total Pending, PTH Intact Pending Microbiology 01/10 1532 BODY FLUID: Body Fluid Culture - CAN Cancelled: Cancelled via OE: Error 01/10 1532 BODY FLUID: Gram Stain - CAN Cancelled: Cancelled via OE: Error Assessment/Plan Assessment: Mr. Dodd is a 68-year-old male with PMH of CAD S/P 6 stents, COPD on home oxygen 2 L, ESRD on HD with left arm aVF, hypertension, hyperlipidemia, PVD, chronic back pain, diabetes, thyroid cancer status post thyroidectomy, chronic BUE BLE muscle pain/weakness, CBP, anxiety/depression, presented to ER with chief complaint of generalized pain over the body, and inability to ambulate due to the right knee pain. Patient reported pain in his bilateral knees, and a mechanical for 2 weeks ago, however now the pain is mostly in his right knee, and inability to bend or move without being painful, is feeling of sharp knife stabbing pain 7-8/10, no radiations, and denies fever/chills. Patient also reported multiple chronic pulses especially on his bilateral upper and lower extremities. Due to the knee pain, patient was unable to make to dialysis today and presented to the ER for further evaluation. Patient denies any loss of consciousness/chest pain/palpitations/dyspnea/pedal edema. Patient was supposed to get angiogram for evaluation of peripheral vascular disease by Dr. Rodriguez. Dr. Rodriguez was contacted over the phone, and confirmed up appointment to be around 01/13/2018. On admission, Vitals: Afebrile BP 70s-90s/40s-50s, HR 90s, satting 99% on room air -CBC: WBC 9.5 (91% granulocytes), H/H 12.4/47.0 (anemia of chronic disease), PLT 181, -BMP: NA 144, K5.1, BUN 57, CR 5.6 (ESRD), EGFR 10, glucose 196, CA 7.4, bicarb 19 (metabolic acidosis) -Misc: ALK P 41, troponin 1 0.17, CRP 3.6, ESR 20, -CXR: 1. Slight interval increase elevation of the right hemidiaphragm. Small right effusion. Right basilar atelectasis. 2. No acute osseous abnormality appreciated in the chest or pelvis. -Knee Xray: 1. RIGHT KNEE: Chondrocalcinosis. No evidence of acute injury. 2. LEFT KNEE: Chondrocalcinosis. Minor spurring of the patella. No evidence of acute injury. -Pelvis XR: 1. Slight interval increase elevation of the right hemidiaphragm. Small right effusion. Right basilar atelectasis. 2. No acute osseous abnormality appreciated in the chest or pelvis. -BLE V-doppler: Negative for DVT -EKG: Pending. -Interventions in ER: IVF 2.5 L bolus, Zofran, Tylenol, Epogen 4000 units IV Tuesday scheduled. Problem list #Elevated Trop, likely type II DC #R knee pain #Cellulitis of inner R thigh #Chronic chest discomfort #ESRD on HD #New onset Ascites #Right renal mass #Hypocalcemia #PVD pending angiogram #PMH of CAD S/P 6 stents, hypertension, hyperlipidemia, PVD, chronic back pain, diabetes, thyroid cance status post thyroidectomy, CBP, anxiety/depression Plan -COntinue telemetry to increase, pending repeat Echo. hypotensive today w/ SBP around 80s, however asymptomatic. Low threshold for ICU transfer. - Pending dialysis today 01/10 -Continue only Unasyn for R medial thigh necrotic lesioncellulitis/calciphylaxis , may need Biopsy today. BC had NGTD. -Discussed with IR radiologist Dr. Harris on phone regarding patient's ascites, that patient had no clear clinical indication for proceeding with paracentesis, and the amount of ascites was too small for U/S guided. A bowel prep and CT- guided procedure would be needed, which would expose patient to unnecessary risks in return of minimal clinical benefit. Patient's ascites without leukocytosis/fever/active abdominal symptoms was likely a result of volume overload. Would hold off IR paracentesis for now. - Patient is pending OR biopsy for calciphylaxis/cellulitis/necrotic region of R medial thigh. 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 hypotension. -Urology consult recommended serial images f.u for right renal cyst in outpatient. currently no inhospital intervention. DVT prophylaxis ALPS Dialysis diet Full Code Problem List: 1. ESRD (end stage renal disease) Pain Ratin Pain Location: Patient not in room, went for dialysis. However, likely remained in similar R knee pain Pain Goal: Pain 4 or less Pain Plan: see AP Tomorrow's Labs & Rationales: CBC/BEP/electrolytes Vale Diehl 01/10/18 1120: Attending MD Review Statement Attending Statement Attending MD Statement: examined this patient, discuss w/resident/PA/COMPUTER SYSTEMS CONSULTANT, agreed w/resident/PA/COMPUTER SYSTEMS CONSULTANT, discussed with family, reviewed EMR data (avail), discussed with nursing, discussed with case mgmt, reviewed images, amended to note Attending Assessment/Plan: 68 o/m with ESRD on HD, hypotensive epsiodes and asymptomatic. Left lower extremity cellultiis being treated with abx, ID consulted and plan for abx as per ID. Surgery for possible biopsy today for possible calciphylaxis lesion. Nephrology on board and dialysis plan as per nephrology. Consult dermatology for erythema and swelling on lower extrmeity/rash. IR consult for posible paracentesis if BP allows. Patient off telemetry and can be trasnferred to gen/ med.
[2018-01-10 08:44] LABS: ABSOLUTE BASOPHIL COUNT 0 /CUMM (0.0-0.2); ABSOLUTE EOSINOPHIL COUNT 0 /CUMM (0.0-0.7); ABSOLUTE GRANULOCYTE CT 5.9 /CUMM (1.4-6.5); ABSOLUTE LYMPH COUNT 0.7 /CUMM (1.2-3.4); ABSOLUTE MONOCYTE COUNT 0.6 /CUMM (0.10-0.60); BASOPHIL % 0.3 % (0.0-2.0); EOSINOPHIL % 0.1 % (0-5); GRANULOCYTE % 82.4 % (42.2-75.2); HEMATOCRIT 36.7 % (42-52); MEAN CORPUSCULAR HGB 30.1 PG (27.0-31.0); MEAN CORPUSCULAR HGB CONC 32.8 G/DL (33.0-37.0); MEAN CORPUSCULAR VOLUME 91.8 FL (80.0-94.0); MEAN PLATELET VOLUME 8.8 FL (7.4-10.4); PLATELET COUNT 174 /CUMM (130-400); RBC DISTRIBUTION WIDTH 19.5 % (11.5-14.5); WHITE BLOOD CELL COUNT 7.2 /CUMM (4.8-10.8)
--- NOTE | 2018-01-10 09:33 | Event Note ---
Event Note Event Note: Dr. Costa evaluated patient yesterday and discussed findings with Dr. Rodriguez. The plan is to take patient to OR for I&D of right thigh abscess today. He was made NPO p mn last night, plavix was held today and will be resumed post operatively pending instructions from Dr. Rodriguez.
--- NOTE | 2018-01-10 11:05 | PN- Nephrology ---
Assessment/Plan Nephrology Assessment: 1. ESRD 2. Cellulitis right lower extremity medial to knee; ?calciphylaxis 3. Hypotension - chronic with exacerbations 4. 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 acute 5. Right upper pole renal mass - to be followed as an outpatient Suggestion: 1. Hemodialysis today in progress with ultrafiltration of 1.5-2 L as blood pressure will allow 2. Agree with ID that a punch biopsy may be helpful in confirming a diagnosis of calciphylaxis 3. We will begin empiric therapy with sodium thiosulfate 25gms IV over last 30min of each HD TIW 4. Dermatology consult pending Subjective Subjective: Patient seems more comfortable today but continues to have pain in the same area around his right knee. He remains afebrile with normal WBC. PTH 92.6, phosphorus 4.6. ID input appreciated. Seen with hemodialysis. Objective Vital Signs and I&Os Vital Signs Date Time Temp Pulse Resp B/P B/P Pulse O2 O2 Flow FiO2 Mean Ox Delivery Rate 01/10 0656 97.4 86 20 100/58 96 Nasal 2.0L Cannula 01/09 2216 Nasal 2.0L Cannula 01/09 221 97.6 92 19 104/76 91 01/09 1506 Room Air 2.0L 01/09 1454 98.6 72 18 80/60 89 Room Air Intake & Output 01/10 1600 01/10 0400 01/09 1600 01/09 0400 01/08 1600 01/08 0400 Intake Total 20 240 745 449 2793 240 Output Total 0 0 Balance 20 240 594 426 6007 240 Intake, IV 150 80 180 Intake, Oral 20 240 186 072 6038 240 Number 1 0 0 Bowel Movements Output, Urine 0 0 Patient 205 lb 203 lb 203 lb 188 lb Weight Physical Exam: General: Well-developed white male, in no acute distress Skin: Generalized skin rash with areas of macules, papules, excoriations, as well as discoloration in pretibial regions and feet; no jaundice HEENT: Conjunctivae pink, sclerae anicteric, mucous membranes moist Chest: Clear with diminished BS at bases Heart: Regular rate and rhythm without S3 or rub Abdomen: Distended but soft with mod diffuse tenderness without palpable masses or organomegaly Extremities: Areas of dry gangrene and necrosis in multiple toes bilaterally; 1+ edema; on the medial aspect of the right knee there is marked tender erythema and induration with a central area of purple/ecchymotic lesions also quite tender; the left upper arm AVF is patent Neuro: Awake, alert, no asterixis or myoclonus Results Pertinent Lab Results: Laboratory Tests 01/10 01/10 01/10 0728 0709 0709 Chemistry Sodium Cancelled Potassium Cancelled Chloride Cancelled Carbon Dioxide Cancelled Anion Gap Cancelled BUN Cancelled Creatinine Cancelled BUN/Creatinine Ratio Cancelled Calcium Cancelled PTH Intact (18.4 - 80.1 pg/ML) 92.6 H Hematology CBC w Diff NO MAN DIFF REQ WBC (4.8 - 10.8 /CUMM) 7.2 RBC (4.70 - 6.10 /CUMM) 4.00 L Hgb (14.0 - 18.0 G/DL) 12.0 L Hct (42 - 52 %) 36.7 L MCV (80.0 - 94.0 FL) 91.8 MCH (27.0 - 31.0 PG) 30.1 MCHC (33.0 - 37.0 G/DL) 32.8 L RDW (11.5 - 14.5 %) 19.5 H Plt Count (130 - 400 /CUMM) 174 MPV (7.4 - 10.4 FL) 8.8 Gran % (42.2 - 75.2 %) 82.4 H Lymphocytes % (20.5 - 51.1 %) 9.5 L Monocytes % (1.7 - 9.3 %) 7.7 Eosinophils % (0 - 5 %) 0.1 Basophils % (0.0 - 2.0 %) 0.3 Absolute Granulocytes (1.4 - 6.5 /CUMM) 5.9 Absolute Lymphocytes (1.2 - 3.4 /CUMM) 0.7 L Absolute Monocytes (0.10 - 0.60 /CUMM) 0.6 Absolute Eosinophils (0.0 - 0.7 /CUMM) 0 Absolute Basophils (0.0 - 0.2 /CUMM) 0 01/10 01/09 0600 0714 Chemistry Sodium (137 - 145 mmol/L) 132 L 132 L Potassium (3.5 - 5.1 mmol/L) 4.9 4.6 Chloride (98 - 107 mmol/L) 94 L 93 L Carbon Dioxide (22 - 30 mmol/L) 22 23 Anion Gap (5 - 16) 16 17 H BUN (9 - 20 mg/dL) 49 H 40 H Creatinine (0.7 - 1.2 mg/dL) 5.2 *H 4.4 H Estimated GFR (>60 ml/min) 11 L 14 L BUN/Creatinine Ratio (7 - 25 %) 9.4 9.1 Calcium (8.4 - 10.2 mg/dL) 7.0 L 7.2 L Phosphorus (2.5 - 4.5 mg/dL) 4.6 H 4.2 Magnesium (1.6 - 2.3 mg/dL) 2.0 Total Bilirubin (0.2 - 1.3 mg/dL) 3.2 H Direct Bilirubin (< 0.4 mg/dL) 3.0 H AST (17 - 59 U/L) 28 ALT (21 - 72 U/L) 44 Alkaline Phosphatase (< 127 U/L) 396 H Total Protein (6.3 - 8.2 g/dL) 5.7 L Albumin (3.5 - 5.0 g/dL) 2.9 L 25-OH Vitamin D Total (30 - 100 ng/ml) 9.3 L PTH Intact (18.4 - 80.1 pg/ML) 62.0 Hematology CBC w Diff NO MAN DIFF REQ WBC (4.8 - 10.8 /CUMM) 5.9 RBC (4.70 - 6.10 /CUMM) 4.09 L Hgb (14.0 - 18.0 G/DL) 12.3 L Hct (42 - 52 %) 37.7 L MCV (80.0 - 94.0 FL) 92.1 MCH (27.0 - 31.0 PG) 30.0 MCHC (33.0 - 37.0 G/DL) 32.5 L RDW (11.5 - 14.5 %) 19.4 H Plt Count (130 - 400 /CUMM) 186 MPV (7.4 - 10.4 FL) 8.4 Gran % (42.2 - 75.2 %) 86.8 H Lymphocytes % (20.5 - 51.1 %) 6.1 L Monocytes % (1.7 - 9.3 %) 6.6 Eosinophils % (0 - 5 %) 0.3 Basophils % (0.0 - 2.0 %) 0.2 Absolute Granulocytes (1.4 - 6.5 /CUMM) 5.1 Absolute Lymphocytes (1.2 - 3.4 /CUMM) 0.4 L Absolute Monocytes (0.10 - 0.60 /CUMM) 0.4 Absolute Eosinophils (0.0 - 0.7 /CUMM) 0 Absolute Basophils (0.0 - 0.2 /CUMM) 0 01/08 01/07 0720 1715 Chemistry Sodium (137 - 145 mmol/L) 134 L Potassium (3.5 - 5.1 mmol/L) 4.3 Chloride (98 - 107 mmol/L) 95 L Carbon Dioxide (22 - 30 mmol/L) 24 Anion Gap (5 - 16) 15 BUN (9 - 20 mg/dL) 31 H Creatinine (0.7 - 1.2 mg/dL) 3.7 H Estimated GFR (>60 ml/min) 17 L BUN/Creatinine Ratio (7 - 25 %) 8.4 Total Bilirubin (0.2 - 1.3 mg/dL) 3.2 H Direct Bilirubin (< 0.4 mg/dL) 2.9 H AST (17 - 59 U/L) 40 ALT (21 - 72 U/L) 46 Alkaline Phosphatase (< 127 U/L) 423 H Troponin I (<0.11 ng/ml) 1.58 *H 1.98 *H Total Protein (6.3 - 8.2 g/dL) 6.1 L Albumin (3.5 - 5.0 g/dL) 3.1 L Hematology CBC w Diff MAN DIFF ORDERED WBC (4.8 - 10.8 /CUMM) 8.5 RBC (4.70 - 6.10 /CUMM) 4.12 L Hgb (14.0 - 18.0 G/DL) 12.3 L Hct (42 - 52 %) 38.1 L MCV (80.0 - 94.0 FL) 92.5 MCH (27.0 - 31.0 PG) 30.0 MCHC (33.0 - 37.0 G/DL) 32.4 L RDW (11.5 - 14.5 %) 20.5 H Plt Count (130 - 400 /CUMM) 191 MPV (7.4 - 10.4 FL) 8.5 Gran % (42.2 - 75.2 %) 83.3 H Lymphocytes % (20.5 - 51.1 %) 9.3 L Monocytes % (1.7 - 9.3 %) 7.3 Eosinophils % (0 - 5 %) 0.1 Basophils % (0.0 - 2.0 %) 0 Absolute Granulocytes (1.4 - 6.5 /CUMM) 7.1 H Absolute Lymphocytes (1.2 - 3.4 /CUMM) 0.8 L Absolute Monocytes (0.10 - 0.60 /CUMM) 0.6 Absolute Eosinophils (0.0 - 0.7 /CUMM) 0 Absolute Basophils (0.0 - 0.2 /CUMM) 0 Platelet Estimate (ADEQUATE) VERIFIED BY SMEAR Anisocytosis 2+
--- NOTE | 2018-01-10 11:57 | PN- Infect Dx ---
Subjective Subjective: Afebrile. He continues to complain of pain in the right inner thigh. Objective Last 24 Hrs of Vital Signs/I&O Vital Signs Date Time Temp Pulse Resp B/P B/P Pulse O2 O2 Flow FiO2 Mean Ox Delivery Rate 01/10 0656 97.4 86 20 100/58 96 Nasal 2.0L Cannula 01/10 2216 Nasal 2.0L Cannula 01/10 2216 97.6 92 19 104/76 91 01/09 1506 Room Air 2.0L 01/09 1454 98.6 72 18 80/60 89 Room Air Intake & Output 01/10 1600 01/10 0800 01/10 0000 Intake Total 20 240 Output Total Balance 20 240 Intake, Oral 20 240 Patient 205 lb Weight Physical Exam Other Physical Findings: He appears comfortable, currently on dialysis, in no acute distress Lungs are clear Heart regular rhythm with no murmur Extremities necrotic lesion on the medial aspect of his right thigh, with surrounding erythema, especially tender to palpation; right knee with mild swelling, tender to palpation Results Last 24 Hours of Lab Results: Laboratory Tests 01/10 01/10 01/10 0728 0709 0709 Chemistry Sodium Cancelled Potassium Cancelled Chloride Cancelled Carbon Dioxide Cancelled Anion Gap Cancelled BUN Cancelled Creatinine Cancelled BUN/Creatinine Ratio Cancelled Calcium Cancelled PTH Intact Pending Hematology CBC w Diff NO MAN DIFF REQ WBC (4.8 - 10.8 /CUMM) 7.2 RBC (4.70 - 6.10 /CUMM) 4.00 L Hgb (14.0 - 18.0 G/DL) 12.0 L Hct (42 - 52 %) 36.7 L MCV (80.0 - 94.0 FL) 91.8 MCH (27.0 - 31.0 PG) 30.1 MCHC (33.0 - 37.0 G/DL) 32.8 L RDW (11.5 - 14.5 %) 19.5 H Plt Count (130 - 400 /CUMM) 174 MPV (7.4 - 10.4 FL) 8.8 Gran % (42.2 - 75.2 %) 82.4 H Lymphocytes % (20.5 - 51.1 %) 9.5 L Monocytes % (1.7 - 9.3 %) 7.7 Eosinophils % (0 - 5 %) 0.1 Basophils % (0.0 - 2.0 %) 0.3 Absolute Granulocytes (1.4 - 6.5 /CUMM) 5.9 Absolute Lymphocytes (1.2 - 3.4 /CUMM) 0.7 L Absolute Monocytes (0.10 - 0.60 /CUMM) 0.6 Absolute Eosinophils (0.0 - 0.7 /CUMM) 0 Absolute Basophils (0.0 - 0.2 /CUMM) 0 04/03 0600 Chemistry Sodium (137 - 145 mmol/L) 132 L Potassium (3.5 - 5.1 mmol/L) 4.9 Chloride (98 - 107 mmol/L) 94 L Carbon Dioxide (22 - 30 mmol/L) 22 Anion Gap (5 - 16) 16 BUN (9 - 20 mg/dL) 49 H Creatinine (0.7 - 1.2 mg/dL) 5.2 *H Estimated GFR (>60 ml/min) 11 L BUN/Creatinine Ratio (7 - 25 %) 9.4 Calcium (8.4 - 10.2 mg/dL) 7.0 L Phosphorus (2.5 - 4.5 mg/dL) 4.6 H 25-OH Vitamin D Total (30 - 100 ng/ml) 9.3 L PTH Intact (18.4 - 80.1 pg/ML) 62.0 Last 24 Hours of Angus Results: No new cultures Assessment/Plan ID Impression: Overall stable, with temperatures and white blood cell count remaining normal, on Unasyn now Day 3 of treatment for possible cellulitis complicating what appears to be calciphylaxis of the right medial thigh, with plans for a biopsy later today. His knee x-rays did reveal chondrocalcinosis, which could explain the pain and swelling of his right knee, and further evaluation/management of this may be necessary if his symptoms persist. Suggestion: 1. Await punch biopsy of the right medial thigh necrotic lesion later today 2. Further management of possible calciphylaxis per Renal 3. Eventual lower extremity angiogram per Vascular Surgery 4. Consider paracentesis 5. Consider empiric treatment for pseudogout if right knee pain persists 6. Continue Unasyn
[2018-01-10 15:16] VITALS: BP 104/62
[2018-01-10 23:34] VITALS: BP 102/60
[2018-01-11 06:39] VITALS: BP 98/60
--- NOTE | 2018-01-11 07:46 | PN- Housestaff ---
See Addendum Subjective Follow-up For: #Elevated Trop, likely type II [place] #R knee pain #Chronic chest discomfort #ESRD on HD #Hypocalcemia #PVD pending angiogram #PMH of CAD S/P 6 stents, hypertension, hyperlipidemia, PVD, chronic back pain, diabetes, thyroid cance status post thyroidectomy, CBP, anxiety/depression Tele-Events Since Last Visit: Off tele Subjective: Per night team patient had bright blood in stool, however appeared to be from hemorrhoid. Patient felt the knee pain improved with increased ROM. he had 3 BMs overnight. [place] more spirited today. No other specific complaint. Review of Systems Constitutional: Reports: see HPI. Objective Last 24 Hrs of Vital Signs/I&O Vital Signs Date Time Temp Pulse Resp B/P B/P Pulse O2 O2 Flow FiO2 Mean Ox Delivery Rate 01/11 0639 97.5 95 20 98/60 96 01/11 0000 Nasal 3.0L Cannula 01/10 2334 97.8 75 20 102/60 95 01/10 1516 97.4 87 20 104/62 98 Nasal 2.0L Cannula Intake & Output 01/11 1600 01/11 0800 01/11 0000 Intake Total 120 560 Output Total 1 Balance 119 560 Intake, IV 110 Intake, Oral 120 450 Number 1 Bowel Movements Output, Stool 1 Patient 94.886 kg Weight Physical Exam General Appearance: Alert, Oriented X3, Cooperative, No Acute Distress Cardiovascular: Regular Rate Lungs: Clear to Auscultation, Normal Air Movement Abdomen: Soft, No Tenderness Neurological: Normal Speech Extremities: decreased on spotty ulcers, s/p punch biopsy in surgical dress of R medial thigh., Decreased erythema of R knee. Current Medications: Current Medications Sig/Julissa Start time Last Medication Dose Route Stop Time Status Admin Albuterol Sulfate 3 ML TID 01/07 2200 AC INH Alprazolam 0.5 MG BID PRN 01/05 1700 AC 01/10 PO 01/12 1659 2118 Ampicillin Sodium/ 1,500 MG Q12 01/07 2200 AC 01/10 Sulbactam Sodium IV 2114 Sodium Chloride 100 ML Aspirin Buffered 81 MG DAILY 01/06 1000 AC 01/10 PO 191 Clopidogrel Bisulfate 75 MG DAILY 01/10 1745 AC 01/10 PO 191 Clopidogrel Bisulfate 75 MG DAILY 01/06 1000 DC 01/09 PO 0816 Epoetin [place] 4,000 UNIT TuThSa PRN 01/05 1445 AC IV Ergocalciferol 50,000 IU QTUES 01/10 1530 AC 01/10 PO 1631 Fentanyl Citrate 100 MCG .STK-MED ONE 01/10 1249 DC IM 01/10 1250 Folic Acid 1 MG DAILY 01/06 1000 AC 01/10 PO 1630 Heparin Sodium 5,000 UNIT Q8 01/05 2200 AC 01/11 (Porcine) SC 0632 Hydrocodone Bitart/ 1 TAB Q8P PRN 01/05 1930 AC 01/10 Acetaminophen PO 1635 Insulin Aspart 0 TIDAC 01/08 1200 AC 01/09 SC 1652 Ipratropium Taylor 2.5 ML TID 01/07 2200 AC INH Ketamine HCl 50 MG .STK-MED ONE 01/10 1232 DC IM 01/10 1233 Levothyroxine Sodium 0.2 MG DAILY AC 01/06 0700 AC 01/11 PO 0632 Metoclopramide HCl 10 MG Q6P PRN 01/06 0830 AC 01/08 IV 1338 Midazolam HCl 2 MG .STK-MED ONE 01/10 1250 DC IM 01/10 1251 Morphine Sulfate 4 MG .STK-MED ONE 01/10 1438 DC IM 01/10 1439 Non-Formulary 0 SEE ADMIN CRITERIA 01/10 1245 CAN Medication ANY Pantoprazole Sodium 40 MG DAILY 01/06 1000 AC 01/10 IV 1630 Polyethylene Glycol 17 GM DAILY 01/08 1416 AC 01/10 PO 1630 Ramelteon 8 MG AT BEDTIME 01/05 2200 AC 01/10 PO 2112 Senna 187 MG AT BEDTIME 01/08 2200 AC 01/10 PO 2118 Sertraline HCl 150 MG DAILY 01/06 1000 AC 01/10 PO 1629 Sevelamer Carbonate 1,600 MG TIDAC 01/06 1200 AC 01/10 PO 1631 Sodium Chloride 2 SPRAY Q4P PRN 01/10 1930 AC 01/10 DALIA 2113 Sodium Thiosulfate 25 GM TuThSa@1000 01/12 1000 AC Sodium Chloride 250 ML IV Trazodone HCl 150 MG QPM 01/05 2200 AC 01/10 PO 2112 Last 24 Hrs of Lab/Angus Results Last 24 Hrs of Labs/Mics: Laboratory Tests 01/11/18 0640: Sodium Pending, Potassium Pending, Chloride Pending, Carbon Dioxide Pending, Anion Gap Pending, BUN Pending, Creatinine Pending, BUN/Creatinine Ratio Pending , Calcium Pending, Phosphorus Pending, CBC w Diff Pending, WBC Pending, RBC Pending, Hgb Pending, Hct Pending, MCV Pending, MCH Pending, MCHC Pending, RDW Pending, Plt Count Pending, MPV Pending 01/10/18 1532: Fluid Total Protein Cancelled Microbiology 01/10 1539 BODY FLUID: Body Fluid Culture - COLB 01/10 1539 BODY FLUID: Gram Stain - COLB 01/10 1330 EXTREMITIE: Gross Specimen Examination - RECD 01/10 133 EXTREMITIE: Gram Stain - RECD Assessment/Plan Assessment: Mr. oDdd is a 68-year-old male with PMH of CAD S/P 6 stents, COPD on home oxygen 2 L, ESRD on HD with left arm aVF, hypertension, hyperlipidemia, PVD, chronic back pain, diabetes, thyroid cancer status post thyroidectomy, chronic BUE BLE muscle pain/weakness, CBP, anxiety/depression, presented to ER with chief complaint of generalized pain over the body, and inability to ambulate due to the right knee pain. Patient reported pain in his bilateral knees, and a mechanical for 2 weeks ago, however now the pain is mostly in his right knee, and inability to bend or move without being painful, is feeling of sharp knife stabbing pain 7-8/10, no radiations, and denies fever/chills. Patient also reported multiple chronic pulses especially on his bilateral upper and lower extremities. Due to the knee pain, patient was unable to make to dialysis today and presented to the ER for further evaluation. Patient denies any loss of consciousness/chest pain/palpitations/dyspnea/pedal edema. Patient was supposed to get angiogram for evaluation of peripheral vascular disease by Dr. Rodriguez. Dr. Rodriguez was contacted over the phone, and confirmed up appointment to be around 01/13/2018. On admission, Vitals: Afebrile BP 70s-90s/40s-50s, HR 90s, satting 99% on room air -CBC: WBC 9.5 (91% granulocytes), H/H 12.4/47.0 (anemia of chronic disease), PLT 181, -BMP: NA 144, K5.1, BUN 57, CR 5.6 (ESRD), EGFR 10, glucose 196, CA 7.4, bicarb 19 (metabolic acidosis) -Misc: ALK P 41, troponin 1 0.17, CRP 3.6, ESR 20, -CXR: 1. Slight interval increase elevation of the right hemidiaphragm. Small right effusion. Right basilar atelectasis. 2. No acute osseous abnormality appreciated in the chest or pelvis. -Knee Xray: 1. RIGHT KNEE: Chondrocalcinosis. No evidence of acute injury. 2. LEFT KNEE: Chondrocalcinosis. Minor spurring of the patella. No evidence of acute injury. -Pelvis XR: 1. Slight interval increase elevation of the right hemidiaphragm. Small right effusion. Right basilar atelectasis. 2. No acute osseous abnormality appreciated in the chest or pelvis. -BLE V-doppler: Negative for DVT -EKG: Pending. -Interventions in ER: IVF 2.5 L bolus, Zofran, Tylenol, Epogen 4000 units IV Tuesday scheduled. Problem list #Elevated Trop, likely type II [place] #R knee pain #Cellulitis of inner R thigh #Chronic chest discomfort #ESRD on HD #New onset Ascites #Right renal mass #Hypocalcemia #PVD pending angiogram #PMH of CAD S/P 6 stents, hypertension, hyperlipidemia, PVD, chronic back pain, diabetes, thyroid cance status post thyroidectomy, CBP, anxiety/depression Plan -Discontinued Tele to increase, pending repeat Echo. hypotensive today w/ SBP around 80s, however asymptomatic. Low threshold for ICU transfer. - s/p HD on 01/10, no complication, SBP maintained around 100s, stable without complaint. -Continue only Unasyn for R medial thigh necrotic lesioncellulitis/calciphylaxis , BC had NGTD. -Pending biopsy result. 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 -Discussed with IR radiologist Dr. Harris on phone regarding patient's ascites, that patient had no clear clinical indication for proceeding with paracentesis, and the amount of ascites was too small for U/S guided. A bowel prep and CT- guided procedure would be needed, which would expose patient to unnecessary risks in return of minimal clinical benefit. Patient's ascites without leukocytosis/fever/active abdominal symptoms was likely a result of volume overload. Would hold off IR paracentesis for now. hypotension. -Urology consult recommended serial images f.u for right renal cyst in outpatient. currently no inhospital intervention. DVT prophylaxis ALPS Dialysis diet Full Code Problem List: 1. 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 ESRD (end stage renal disease) on dialysis Pain Ratin Pain Location: R knee Pain Goal: Pain 7 or less Pain Plan: see AP Tomorrow's Labs & Rationales: CBC/BEP/Ca
[2018-01-11 08:10] LABS: ABSOLUTE BASOPHIL COUNT 0 /CUMM (0.0-0.2); ABSOLUTE EOSINOPHIL COUNT 0 /CUMM (0.0-0.7); ABSOLUTE GRANULOCYTE CT 6.2 /CUMM (1.4-6.5); ABSOLUTE LYMPH COUNT 0.5 /CUMM (1.2-3.4); ABSOLUTE MONOCYTE COUNT 0.6 /CUMM (0.10-0.60); BASOPHIL % 0.1 % (0.0-2.0); EOSINOPHIL % 0.2 % (0-5); GRANULOCYTE % 84.9 % (42.2-75.2); HEMATOCRIT 36.2 % (42-52); MEAN CORPUSCULAR HGB 30.4 PG (27.0-31.0); MEAN CORPUSCULAR HGB CONC 32.8 G/DL (33.0-37.0); MEAN CORPUSCULAR VOLUME 92.4 FL (80.0-94.0); MEAN PLATELET VOLUME 8.2 FL (7.4-10.4); PLATELET COUNT 166 /CUMM (130-400); RBC DISTRIBUTION WIDTH 19.6 % (11.5-14.5); RED BLOOD CELL CT 3.92 /CUMM (4.70-6.10); WHITE BLOOD CELL COUNT 7.3 /CUMM (4.8-10.8)
--- NOTE | 2018-01-11 10:25 | Operative Report ---
Operative/Inv Procedure Report Surgery Date: 01/10/18 Name of Procedure: aspiration of subcutaneous edema with culture, excisional biopsy of skin and subcutaneous tissue, right leg Pre-Operative Diagnosis: necrotic medial thigh skin right leg Post-Operative Diagnosis: same Estimated Blood Loss: none Surgeon/Guard Range: Rogers Rodriguez MD Anesthesia: local monitored anesthesi Specimens: excisional biopsy of right medial thigh skin Microbiology: aspiration culture of subcutaneous edema right thigh Operative/Procedure Note Note: The patient was brought to the operating room and placed on the operating table in the supine position and prepped and draped in the usual sterile fashion. Prior to the start of the procedure, timeout was taken to confirm the patient and procedure. I began by utilizing ultrasound to visualize the subcutaneous space in the right medial thigh. I was unable to identify a discrete collection, though there was a significant amount of subcutaneous edema noted. I injected half percent Marcaine plain as an anesthetic and then advanced an 18-gauge needle into the subcutaneous edema and withdrew an aspiration. There was very little fluid I was able to withdraw, however, this was sent for microbiology. I then set about obtaining an excisional biopsy. I found an area at the edge of one of the necrotic patches overlapping with healthy-appearing skin. Approximately a 6-8 mm wide biopsy was removed with a 15 blade scalpel. There was no significant bleeding noted. An interrupted 3-0 nylon suture was placed in a vertical mattress configuration. Manual pressure was applied. Dressings were applied. The patient tolerated the procedure well. Discharge Disposition: PACU CC: Minerva ELDRIDGE,Jose A Alonso; Harriet ELDRIDGE,Hollis Fernandez
--- NOTE | 2018-01-11 11:55 | PN- Infect Dx ---
Subjective Subjective: Afebrile. He continues to complain of pain in the right medial thigh. Objective Last 24 Hrs of Vital Signs/I&O Vital Signs Date Time Temp Pulse Resp B/P B/P Pulse O2 O2 Flow FiO2 Mean Ox Delivery Rate 01/11 0639 97.5 95 20 98/60 96 01/11 0000 Nasal 3.0L Cannula 01/10 2334 97.8 75 20 102/60 95 01/10 1516 97.4 87 20 104/62 98 Nasal 2.0L Cannula Intake & Output 01/11 1600 01/11 0800 01/11 0000 Intake Total 120 560 Output Total 1 Balance 119 560 Intake, IV 110 Intake, Oral 120 450 Number 1 Bowel Movements Output, Stool 1 Patient 209 lb Weight Physical Exam Other Physical Findings: He appears comfortable in no acute distress Skin multiple necrotic lesions on the digits and extremities unchanged Extremities necrotic, exquisitely tender lesion in the right medial thigh, with surrounding erythema and tenderness unchanged Results Last 24 Hours of Lab Results: Laboratory Tests 01/11 01/10 0640 1532 Chemistry Sodium (137 - 145 mmol/L) 134 L Potassium (3.5 - 5.1 mmol/L) 4.3 Chloride (98 - 107 mmol/L) 96 L Carbon Dioxide (22 - 30 mmol/L) 24 Anion Gap (5 - 16) 14 BUN (9 - 20 mg/dL) 29 H Creatinine (0.7 - 1.2 mg/dL) 3.8 H Estimated GFR (>60 ml/min) 16 L BUN/Creatinine Ratio (7 - 25 %) 7.6 Calcium (8.4 - 10.2 mg/dL) 7.1 L Phosphorus (2.5 - 4.5 mg/dL) 3.5 Hematology CBC w Diff NO MAN DIFF REQ WBC (4.8 - 10.8 /CUMM) 7.3 RBC (4.70 - 6.10 /CUMM) 3.92 L Hgb (14.0 - 18.0 G/DL) 11.9 L Hct (42 - 52 %) 36.2 L MCV (80.0 - 94.0 FL) 92.4 MCH (27.0 - 31.0 PG) 30.4 MCHC (33.0 - 37.0 G/DL) 32.8 L RDW (11.5 - 14.5 %) 19.6 H Plt Count (130 - 400 /CUMM) 166 MPV (7.4 - 10.4 FL) 8.2 Gran % (42.2 - 75.2 %) 84.9 H Lymphocytes % (20.5 - 51.1 %) 7.0 L Monocytes % (1.7 - 9.3 %) 7.8 Eosinophils % (0 - 5 %) 0.2 Basophils % (0.0 - 2.0 %) 0.1 Absolute Granulocytes (1.4 - 6.5 /CUMM) 6.2 Absolute Lymphocytes (1.2 - 3.4 /CUMM) 0.5 L Absolute Monocytes (0.10 - 0.60 /CUMM) 0.6 Absolute Eosinophils (0.0 - 0.7 /CUMM) 0 Absolute Basophils (0.0 - 0.2 /CUMM) 0 Other Body Source Fluid Total Protein Cancelled Last 24 Hours of Angus Results: OR culture January 10 (just plated today) pending Assessment/Plan ID Impression: Stable, with temperatures and white blood cell count remaining normal, on Unasyn now Day 4 of treatment for possible cellulitis complicating what appears to be calciphylaxis of the right medial thigh, status post biopsy yesterday, with results pending. Suggestion: 1. Follow-up results of the recent biopsy and culture of the necrotic thigh lesion 2. Further management of possible calciphylaxis per Renal 3. Eventual lower extremity angiogram per Vascular Surgery 4. Consider paracentesis to further evaluate his ascites 5. Continue Unasyn pending above
[2018-01-11] MEDS ORDERED: VITAMIN D250000 UNIT PO (12:32)
--- NOTE | 2018-01-11 12:34 | Patient Discharge Instructions ---
Discharge Instructions General Discharge Information You were seen/treated for: -Cellulitis -ESRD Watch for these problems: - Chest pain, Shortness of breath, palpitations - Fever, worsening leg pain, or drainage Special Instructions: - Please continue your dialysis at current schedule of /Th/Sat, and add Thiosulfate 25gm at the last 30 minutes of dialysis. - Please follow up with your clinical account manager Dr. Palma within 1-2 weeks of discharge. - Please follow up with your primary care physician within 1-2 weeks of discharge. Inform your primary care physician of this admission to [facility]. - Continue your current medications per discharge instructions. - Please watch for these problems: Fever, Chills, Nausea, Vomiting, Shortness of Breath, Productive Cough, Chest Pain/Discomfort, Abdominal Pain, Active Bleeding or Bloody urine/stool. Diet Continue normal diet: Yes Recommended Diet: Renal Dialysis Activity Full Activity/No Limits: No Activity Self Limited: Yes Acute Coronary Syndrome Inclusion Criteria At DC or during hospital stay patient has or had the following: ACS DIAGNOSIS No Discharge Core Measures Meds if any: Prescribed or Continued at Discharge Meds if any: NOT Prescribed or Continued at Discharge Congestive Heart Failure Inclusion Criteria At DC or during hospital stay patient has or had the following: CHF DIAGNOSIS No Discharge Core Measures Meds if any: Prescribed or Continued at Discharge Meds if any: NOT Prescribed or Continued at Discharge Cerebrovascular accident Inclusion Criteria At DC or during hospital stay patient has or had the following: CVA/TIA Diagnosis No Discharge Core Measures Meds if any: Prescribed or Continued at Discharge Meds if any: NOT Prescribed or Continued at Discharge Venous thromboembolism Inclusion Criteria VTE Diagnosis No VTE Type NONE VTE Confirmed by (Test) NONE Discharge Core Measures - Per Current guidelines, there needs to be overlap - treatment for the first 5 days of Warfarin therapy. - If discharged on Warfarin prior to 5 days of - overlap therapy, the patient will need to be - assessed for post discharge needs including - *Post discharge parental anticoagulation - *Warfarin and/or parental anticoagulation education - *Follow up date to check INR post discharge At least 5 days overlap therapy as Inpatient No Meds if any: Prescribed or Continued at Discharge Note: Overlap Therapy is Warfarin and Anticoagulant Meds if any: NOT Prescribed or Continued at Discharge
--- NOTE | 2018-01-11 12:45 | PN- Nephrology ---
Assessment/Plan Nephrology Assessment: 1. ESRD 2. Cellulitis right lower extremity medial to knee- on Unasyn; ?calciphylaxis; biopsy results pending 3. Hypotension - chronic with exacerbations 4. 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 acute 5. Ascites which appears to be new 6. Right upper pole renal mass - to be followed as an outpatient Suggestion: 1. Continue current management with antibiotic therapy per ID 2. No dialysis need today; scheduled for tomorrow 3. Skin lesion biopsy result pending 4. Will get his first dose of sodium thiosulfate tomorrow with dialysis as empiric therapy for possible calciphylaxis 5. Vascular surgery follow-up 6. Paracentesis pending Subjective Subjective: He seems a little more comfortable today but still has pain and tenderness in the affected area near the right knee. He remains afebrile with normal WBC. All cultures remain negative. Diagnostic paracentesis pending. Objective Vital Signs and I&Os Vital Signs Date Time Temp Pulse Resp B/P B/P Pulse O2 O2 Flow FiO2 Mean Ox Delivery Rate 01/11 0639 97.5 95 20 98/60 96 01/11 0000 Nasal 3.0L Cannula 01/10 2334 97.8 75 20 102/60 95 /03 1516 97.4 87 20 104/62 98 Nasal 2.0L Cannula Intake & Output 01/11 1600 01/11 0400 01/10 1600 01/10 0400 01/09 1600 01/09 0400 Intake Total 120 560 20 240 930 860 Output Total 1 1500 0 Balance 119 560 -1480 240 930 860 Intake, IV 110 150 80 Intake, Oral 120 450 20 240 780 780 Number 1 1 0 Bowel Movements Output, 1500 Dialysate Output, Stool 1 Output, Urine 0 Patient 209 lb 205 lb 203 lb 203 lb Weight Physical Exam: General: Well-developed white male, in no acute distress Skin: Generalized skin rash with areas of macules, papules, excoriations, as well as discoloration in pretibial regions and feet; no jaundice HEENT: Conjunctivae pink, sclerae anicteric, mucous membranes moist Chest: Clear with diminished BS at bases Heart: Regular rate and rhythm without S3 or rub Abdomen: Distended but soft without palpable masses or organomegaly Extremities: Areas of dry gangrene and necrosis in multiple toes bilaterally; 1+ edema; on the medial aspect of the right knee there is marked tender erythema and induration with a central area of purple/ecchymotic lesions also quite tender; the left upper arm AVF is patent Neuro: Awake, alert, no asterixis or myoclonus Results Pertinent Lab Results: Laboratory Tests 01/11 01/10 0640 1532 Chemistry Sodium (137 - 145 mmol/L) 134 L Potassium (3.5 - 5.1 mmol/L) 4.3 Chloride (98 - 107 mmol/L) 96 L Carbon Dioxide (22 - 30 mmol/L) 24 Anion Gap (5 - 16) 14 BUN (9 - 20 mg/dL) 29 H Creatinine (0.7 - 1.2 mg/dL) 3.8 H Estimated GFR (>60 ml/min) 16 L BUN/Creatinine Ratio (7 - 25 %) 7.6 Calcium (8.4 - 10.2 mg/dL) 7.1 L Phosphorus (2.5 - 4.5 mg/dL) 3.5 Hematology CBC w Diff NO MAN DIFF REQ WBC (4.8 - 10.8 /CUMM) 7.3 RBC (4.70 - 6.10 /CUMM) 3.92 L Hgb (14.0 - 18.0 G/DL) 11.9 L Hct (42 - 52 %) 36.2 L MCV (80.0 - 94.0 FL) 92.4 MCH (27.0 - 31.0 PG) 30.4 MCHC (33.0 - 37.0 G/DL) 32.8 L RDW (11.5 - 14.5 %) 19.6 H Plt Count (130 - 400 /CUMM) 166 MPV (7.4 - 10.4 FL) 8.2 Gran % (42.2 - 75.2 %) 84.9 H Lymphocytes % (20.5 - 51.1 %) 7.0 L Monocytes % (1.7 - 9.3 %) 7.8 Eosinophils % (0 - 5 %) 0.2 Basophils % (0.0 - 2.0 %) 0.1 Absolute Granulocytes (1.4 - 6.5 /CUMM) 6.2 Absolute Lymphocytes (1.2 - 3.4 /CUMM) 0.5 L Absolute Monocytes (0.10 - 0.60 /CUMM) 0.6 Absolute Eosinophils (0.0 - 0.7 /CUMM) 0 Absolute Basophils (0.0 - 0.2 /CUMM) 0 Other Body Source Fluid Total Protein Cancelled 01/10 01/10 01/10 0728 0709 0709 Chemistry Sodium Cancelled Potassium Cancelled Chloride Cancelled Carbon Dioxide Cancelled Anion Gap Cancelled BUN Cancelled Creatinine Cancelled BUN/Creatinine Ratio Cancelled Calcium Cancelled PTH Intact (18.4 - 80.1 pg/ML) 92.6 H Hematology CBC w Diff NO MAN DIFF REQ WBC (4.8 - 10.8 /CUMM) 7.2 RBC (4.70 - 6.10 /CUMM) 4.00 L Hgb (14.0 - 18.0 G/DL) 12.0 L Hct (42 - 52 %) 36.7 L MCV (80.0 - 94.0 FL) 91.8 MCH (27.0 - 31.0 PG) 30.1 MCHC (33.0 - 37.0 G/DL) 32.8 L RDW (11.5 - 14.5 %) 19.5 H Plt Count (130 - 400 /CUMM) 174 MPV (7.4 - 10.4 FL) 8.8 Gran % (42.2 - 75.2 %) 82.4 H Lymphocytes % (20.5 - 51.1 %) 9.5 L Monocytes % (1.7 - 9.3 %) 7.7 Eosinophils % (0 - 5 %) 0.1 Basophils % (0.0 - 2.0 %) 0.3 Absolute Granulocytes (1.4 - 6.5 /CUMM) 5.9 Absolute Lymphocytes (1.2 - 3.4 /CUMM) 0.7 L Absolute Monocytes (0.10 - 0.60 /CUMM) 0.6 Absolute Eosinophils (0.0 - 0.7 /CUMM) 0 Absolute Basophils (0.0 - 0.2 /CUMM) 0 01/10 01/09 0600 0714 Chemistry Sodium (137 - 145 mmol/L) 132 L 132 L Potassium (3.5 - 5.1 mmol/L) 4.9 4.6 Chloride (98 - 107 mmol/L) 94 L 93 L Carbon Dioxide (22 - 30 mmol/L) 22 23 Anion Gap (5 - 16) 16 17 H BUN (9 - 20 mg/dL) 49 H 40 H Creatinine (0.7 - 1.2 mg/dL) 5.2 *H 4.4 H Estimated GFR (>60 ml/min) 11 L 14 L BUN/Creatinine Ratio (7 - 25 %) 9.4 9.1 Calcium (8.4 - 10.2 mg/dL) 7.0 L 7.2 L Phosphorus (2.5 - 4.5 mg/dL) 4.6 H 4.2 Magnesium (1.6 - 2.3 mg/dL) 2.0 Total Bilirubin (0.2 - 1.3 mg/dL) 3.2 H Direct Bilirubin (< 0.4 mg/dL) 3.0 H AST (17 - 59 U/L) 28 ALT (21 - 72 U/L) 44 Alkaline Phosphatase (< 127 U/L) 396 H Total Protein (6.3 - 8.2 g/dL) 5.7 L Albumin (3.5 - 5.0 g/dL) 2.9 L 25-OH Vitamin D Total (30 - 100 ng/ml) 9.3 L PTH Intact (18.4 - 80.1 pg/ML) 62.0 Hematology CBC w Diff NO MAN DIFF REQ WBC (4.8 - 10.8 /CUMM) 5.9 RBC (4.70 - 6.10 /CUMM) 4.09 L Hgb (14.0 - 18.0 G/DL) 12.3 L Hct (42 - 52 %) 37.7 L MCV (80.0 - 94.0 FL) 92.1 MCH (27.0 - 31.0 PG) 30.0 MCHC (33.0 - 37.0 G/DL) 32.5 L RDW (11.5 - 14.5 %) 19.4 H Plt Count (130 - 400 /CUMM) 186 MPV (7.4 - 10.4 FL) 8.4 Gran % (42.2 - 75.2 %) 86.8 H Lymphocytes % (20.5 - 51.1 %) 6.1 L Monocytes % (1.7 - 9.3 %) 6.6 Eosinophils % (0 - 5 %) 0.3 Basophils % (0.0 - 2.0 %) 0.2 Absolute Granulocytes (1.4 - 6.5 /CUMM) 5.1 Absolute Lymphocytes (1.2 - 3.4 /CUMM) 0.4 L Absolute Monocytes (0.10 - 0.60 /CUMM) 0.4 Absolute Eosinophils (0.0 - 0.7 /CUMM) 0 Absolute Basophils (0.0 - 0.2 /CUMM) 0
[2018-01-11 13:52] VITALS: BP 90/50
--- NOTE | 2018-01-11 14:01 | PN- Cardiology ---
Subjective Subjective: clinically, the patient is about the same. He continues to complain only of right leg discomfort. Objective Vital Signs and I&Os Vital Signs Date Time Temp Pulse Resp B/P B/P Pulse O2 O2 Flow FiO2 Mean Ox Delivery Rate 01/11 1352 97.4 85 20 90/50 87 Nasal 1.0L Cannula 01/11 0800 97 Nasal 2.0L Cannula 01/11 0639 97.5 95 20 98/60 96 01/11 0000 Nasal 3.0L Cannula 01/10 2334 97.8 75 20 102/60 95 01/10 1516 97.4 87 20 104/62 98 Nasal 2.0L Cannula Intake & Output 01/11 1600 01/11 0800 01/11 0000 01/10 1600 01/10 0800 01/10 0000 Intake Total 120 560 20 240 Output Total 1 1500 Balance 119 560 -1500 20 240 Intake, IV 110 Intake, Oral 120 450 20 240 Number 1 Bowel Movements Output, 1500 Dialysate Output, Stool 1 Patient 209 lb 205 lb Weight Physical Exam: General Appearance Alert, Oriented X3, Cooperative, Mild Distress Skin Healing ulcers on BUE/BLE with ecchymosis HEENT PERRLA, healing wound on left eyebrow from fall 2 weeks ago. Neck Supple, No JVD, carotids normal bilaterally Cardiovascular Regular, S1, S2, 1 to 2/6 systolic murmur Lungs Clear to Auscultation and percussion bilaterally Abdomen Normal Bowel Sounds, Soft, mild tenderness on palpation in mid ab Neurological Normal/nonfocal Extremities BLE healing ulcers on cardenas, and heals, and feet BL knees cool to touch, however R knee very tender to touch, without signs of swelling, limited ROM, no elevation of skin temp, bony walden available. Current Medications: Current Medications Sig/Julsisa Start time Last Medication Dose Route Stop Time Status Admin Albuterol Sulfate 3 ML TID 01/07 2200 AC INH Alprazolam 0.5 MG BID PRN 01/05 1700 AC 01/10 PO 01/12 1659 2118 Ampicillin Sodium/ 1,500 MG Q12 01/07 2200 AC 01/11 Sulbactam Sodium IV 1001 Sodium Chloride 100 ML Aspirin Buffered 81 MG DAILY 01/06 1000 AC 01/11 PO 1232 Clopidogrel Bisulfate 75 MG DAILY 01/10 1745 AC 01/11 PO 0957 Epoetin [place]ano 4,000 UNIT TuThSa PRN 01/05 1445 AC IV Ergocalciferol 50,000 IU QTUES 01/10 1530 AC 01/10 PO 1631 Folic Acid 1 MG DAILY 01/06 1000 AC 01/11 PO 1233 Gabapentin 100 MG DAILY 01/11 1000 AC 01/11 PO 1232 Heparin Sodium 5,000 UNIT Q8 01/05 2200 AC 01/11 (Porcine) SC 0632 Hydrocodone Bitart/ 1 TAB Q8P PRN 01/05 1930 AC 01/11 Acetaminophen PO 0833 Insulin Aspart 0 TIDAC 01/08 1200 AC 01/11 SC 0828 Ipratropium Meredith 2.5 ML TID 01/07 2200 AC INH Levothyroxine Sodium 0.2 MG DAILY AC 01/06 0700 AC 01/11 PO 0632 Metoclopramide HCl 10 MG Q6P PRN 01/06 0830 AC 01/08 IV 1338 Morphine Sulfate 4 MG .STK-MED ONE 01/10 1438 DC IM 01/10 1439 Non-Formulary 0 SEE ADMIN CRITERIA 01/10 1245 CAN Medication ANY Pantoprazole Sodium 40 MG DAILY 01/06 1000 AC 01/11 IV 0957 Polyethylene Glycol 17 GM DAILY 01/08 1416 AC 01/11 PO 1233 Ramelteon 8 MG AT BEDTIME 01/05 2200 AC 01/10 PO 2112 Senna 187 MG AT BEDTIME 01/08 2200 AC 01/10 PO 211 Sertraline HCl 150 MG DAILY 01/06 1000 AC 01/11 PO 1232 Sevelamer Carbonate 1,600 MG TIDAC 01/06 1200 AC 01/11 PO 1233 Sodium Chloride 2 SPRAY Q4P PRN 01/10 1930 AC 01/10 DALIA 2113 Sodium Thiosulfate 25 GM TuThSa@1000 01/12 1000 AC Sodium Chloride 250 ML IV Trazodone HCl 150 MG QPM 01/05 220 AC 01/10 PO 211 Results Last 48 Hrs of Labs/Mics: Laboratory Tests 01/11/18 0640: Anion Gap 14, Estimated GFR 16 L, BUN/Creatinine Ratio 7.6, Calcium 7.1 L, Phosphorus 3.5, CBC w Diff NO MAN DIFF REQ, RBC 3.92 L, MCV 92.4, MCH 30.4, MCHC 32.8 L, RDW 19.6 H, MPV 8.2, Gran % 84.9 H, Lymphocytes % 7.0 L, Monocytes % 7.8, Eosinophils % 0.2, Basophils % 0.1, Absolute Granulocytes 6.2, Absolute Lymphocytes 0.5 L, Absolute Monocytes 0.6, Absolute Eosinophils 0, Absolute Basophils 0 01/10/18 1532: Fluid Total Protein Cancelled 01/10/18 0728: CBC w Diff NO MAN DIFF REQ, RBC 4.00 L, MCV 91.8, MCH 30.1, MCHC 32.8 L, RDW 19.5 H, MPV 8.8, Gran % 82.4 H, Lymphocytes % 9.5 L, Monocytes % 7.7, Eosinophils % 0.1, Basophils % 0.3, Absolute Granulocytes 5.9, Absolute Lymphocytes 0.7 L, Absolute Monocytes 0.6, Absolute Eosinophils 0, Absolute Basophils 0 01/10/18 0709: PTH Intact 92.6 H 01/10/18 0709: Sodium Cancelled, Potassium Cancelled, Chloride Cancelled, Carbon Dioxide Cancelled, Anion Gap Cancelled, BUN Cancelled, Creatinine Cancelled, BUN/ Creatinine Ratio Cancelled, Calcium Cancelled 01/10/18 0600: Anion Gap 16, Estimated GFR 11 L, BUN/Creatinine Ratio 9.4, Calcium 7.0 L, Phosphorus 4.6 H, 25-OH Vitamin D Total 9.3 L, PTH Intact 62.0 Assessment/Plan Assessment/Plan Assessment: 1. Elevated troponin-the patient frequently has newly elevated troponins, likely on the basis of underlying renal insufficiency. Nevertheless, he does have significant, nonintravenous, underlying coronary artery disease. At the moment, he denies any significant cardiac symptoms and I suspect that the troponin elevation is not related to any underlying cardiac issue but rather his renal insufficiency. 2. Generalized pain 3. Chronic issues with lower extremity arterial and venous insufficiency/PAD/ PVI 4. End-stage renal disease on hemodialysis 5. Elevated bilirubin 6. cardiomyopathy of coronary artery disease with worsening left ventricular systolic function as noted on echocardiogram Recommendations: -okay to come off of telemetry -The troponin started at 0.17 and peak at 2.38, subsequently decreasing -follow-up echocardiogram shows further deterioration of left ventricular systolic function as noted. -repeat ECG with any cardiac symptoms -Further plans at that time -Continue current medications -Await further input from dermatology about right lower extremity skin lesions Continue telemetry? No
[2018-01-11 22:25] VITALS: BP 110/76
[2018-01-12 06:52] VITALS: BP 112/74
--- NOTE | 2018-01-12 07:48 | Discharge Summary ---
Visit Information Visit Dates Admission Date: 01/05/18 Discharge Date: 01/14/2018 Hospital Course Course Attending Physician: Vale Diehl MD Primary Care Physician: Lakeisha Benedict DO Consulting Request: Consulting Specialty: Nephrology Hospital Course: Mr. Dodd is a 68-year-old male with PMH of CAD S/P 6 stents, COPD on home oxygen1.5- 2 L, ESRD on HD with left arm aVF, HTN, HLD, PVD, chronic back pain, type 2 DM, thyroid cancer status post thyroidectomy, chronic BUE BLE muscle pain /weakness, CBP, anxiety, depression presented to the ER on 01/05/18 a with chief complaint of generalized pain over the body, and inability to ambulate due to the right knee pain. Since he was unable to ambulate, he missed his dialysis session on the day of presentation to the ED, which was arranged immediately after he presented to the ED. He was also scheduled to get an angiogram for evaluation of peripheral vascular disease by Dr. Rodriguez, which was postponed since he was admitted to the hospital. At the time of admission-vitals 98.5, pulse rate 100, respiration 50, blood pressure 97/52, pulse ox 96% on room air. Pertinent lab findings: WBC 9.5 (91% granulocytosis)--> 7.4 (01/13), hemoglobin 12.4 (anemia of chronic disease), hematocrit 37, platelet count 181. Sodium 134, potassium 5.1, chloride 93, bicarb 19 (metabolic acidosis), anion gap 22, BUN 57, creatinine 5.6 (history of end-stage renal disease), glucose 186. Calcium 7.4, albumin 3.5 (likely due to secondary hyperparathyroidism), total bilirubin 3.4 AST 29, ALT 35, alkaline phosphatase 431 ( likely osteodystrophy ). PTH 91.8, 25-hydroxy vitamin D 11.8. Phosphorus 3.8, magnesium 2.1. Bilirubin 3.2. Troponin I-peaked at 2.78 (01/07/2018). EKG revealed NSR, left axis deviation, left anterior physical or block, first- degree AV block, no ST-T wave changes noted. Chest x-ray-1. Slight interval increase elevation of the right hemidiaphragm. Small right effusion. Right basilar atelectasis. Knee x-ray- Rt knee- Chondrocalcinosis. No evidence of acute injury. Venous Doppler bilateral lower extremities. Lt knee- Chondrocalcinosis. Minor spurring of the patella. No evidence of acute injury. Bilateral lower extremity Dopplers -venous negative for DVT. CT abdomen and pelvis, chest revealed small bilateral pleural effusion, right greater than left. Right middle lobe atelectasis. Large volume abdominal and pelvic ascites. An exophytic mass arising from the upper pole of right kidney. Problem list: # Elevated troponins with no EKG changes, type II VA. # Chronic hypotension # R knee pain likely 2/2 chondrocalcinosis # Cellulitis of R medial thigh # Calciphylaxis of R medial thigh ( final pathology results pending ) # Chronic chest discomfort # ESRD on HD T//Tue # Ascites # Incidental right renal mass, likely renal cyst # Hypocalcemia # PVD w/ chronic BLE healing ulcers # PMH of CAD S/P 6 stents # Hypertension # Hyperlipidemia # diabetes, # thyroid cancer s/p thyroidectomy # Anxiety # Chronic pain He was admitted to telemetry given his conjugated past medical history and elevated cardiac enzymes. Serial EKGs were done, which did not reveal any ST-T wave changes. Cardiology was consulted for advice. An echocardiogram was done which revealed left ventricular dilation with severely reduced global left ventricular systolic function. Ejection fraction approximately 20-25% with akinesis in the apical area. (Detailed report below). He had previous history of elevated troponins likely from type II VA and contribution from chronic renal insufficiency. Given his significant coronary artery disease in the past, he was monitored closely. Cardiac enzymes troponin I peaked at 2.38. Consult-W. Gerardo Lee MD. He remained persistently hypotensive, and had nausea and vomiting. Hemodialysis was arranged, and was hemodialyzed on his regular scheduled days. Serum potassium levels remained within normal limits, And serum creatinine peaked at 5.6 during the stay in the hospital. Magnesium and phosphorus remained within normal limits. At the time of admission, it was noted on radiology that he had small bilateral pleural effusions and large volume abdominal and pelvic ascites and attributed this to volume overload as opposed to acetic fluid secondary to increased portal pressures from liver cirrhosis; and paracentesis was planned, which was eventually not done since interventional radiology felt that the fluid in the peritoneal space was so minimal that risk for visceral perforation was high. Risks versus benefits were discussed, and deferred the decision, if he developed any signs of infection to rule out any SBP. During the stay in the hospital, he remained afebrile, and did not have any leukocytosis. Although septic arthritis was considered in differential, but the pain in his knee was largely attributed to possible chondrocalcinosis. (Detailed report below). In regards to his inability to move his right lower extremity and severe pain, surgery was consulted to rule out any necrotizing fasciitis. He was treated for possible cellulitis in the right thigh area with Unasyn. Since he has long- standing end-stage renal disease, calciphylaxis was considered in the differential given the appearance of ulcers. An aspiration and excisional biopsy of subcutaneous edema with culture was done by Dr. Agrawal. Pathology was pending at the time of discharge, although preliminary report not suggestive of calciphylaxis but with the official report (from [place]) pending. He was started on thiosulfate, with dialysis for the treatment of calciphylaxis. During the stay in the hospital, he showed remarkable improvement in both mobility of right lower extremity and also erythema of right lower extremity. Dermatology was consulted for advice, felt that this workup could be done as an outpatient. Referral provided. Ruled out for DVT in lower extremity ( detailed report below ) Next Hemodialysis session 01/14/2018 which will be arranged, as per nephrology. In regards to his angiogram/vascular workup was to be done by Dr. Rodriguez as an outpatient. At the time of discharge, he was stable. He was discharged with recommendation to follow up with his primary care physician, cardiology, nephrology and vascular surgery closely. He had an incidental finding of renal mass, which needs to be worked up as an outpatient by urology/nephrology. Consults- #1 nephrology-Jose A Palma MD #2 infectious-Hollis Larios MD #3 cardiology-Dr. Lee #4 vascular-Dr. Rodriguez #5 dermatology-Dr. Aggarwal Allergies: Coded Allergies: hydromorphone (DEPRESSED RESPIRATIONS 01/18/17) Pertinent Lab Results: RAD - XRY-AP PELVIS; XRY-CHEST XRAY, SINGLE VIEW 01/05/18-1007 1. Slight interval increase elevation of the right hemidiaphragm. Small right effusion. Right basilar atelectasis. 2. No acute osseous abnormality appreciated in the chest or pelvis. RAD - XRY-KNEE COMPLETE LEFT; XRY-KNEE COMPLETE RIGHT 01/05/18 1. RIGHT KNEE: Chondrocalcinosis. No evidence of acute injury. 2. LEFT KNEE: Chondrocalcinosis. Minor spurring of the patella. No evidence of acute injury. US - US-EXT BILAT VENOUS DOPPLER 01/05/18 Normal triplex scan without evidence of deep venous thrombosis involving the lower extremities. CAT - CT ABD & PELVIS W/O IV CONTRAS; CT CHEST WO IV CONTRAST There are small bilateral pleural effusions, right side greater than left. There is right middle lobe atelectasis similar to the previous exam. No consolidative process. The heart is normal in size. There is no pericardial effusion. There are dense coronary artery calcifications. No mediastinal or hilar adenopathy. No axillary adenopathy. The thoracic aorta is normal in caliber. Main pulmonary artery is normal in caliber. The liver is normal in size and attenuation. The gallbladder is physiologically distended. The spleen is normal in size and attenuation. The pancreas is grossly normal in size and attenuation. There is no adrenal gland nodule. Both kidneys are somewhat diminutive in size. The right kidney contains several low-attenuation lesions, likely representing cysts. Additionally, there is a heterogeneous, mixed attenuation lesion arising from the upper pole measuring 3.6 cm. There is dense vascular calcification throughout the right kidney. There are dense vascular calcification throughout the left kidney. There are several low-attenuation lesions within the left kidney the largest measuring up to 3 cm, consistent with a simple cyst. There is no hydronephrosis. There is a moderate amount of abdominal ascites. The urinary bladder is unremarkable. The prostate gland is enlarged. There is no evidence of bowel obstruction. There is a large volume of pelvic ascites. No abdominal or pelvic lymphadenopathy. The subcutaneous low-attenuation focus superior to the left buttock is decreased in size, currently measuring 3.4 cm, previously measuring 4.6 cm. There are degenerative changes throughout the thoracolumbar spine. Neither sclerotic nor lytic bone lesions are identified. IMPRESSION: 1. Small bilateral pleural effusions, right greater than left. 2. Right middle lobe atelectasis, similar to the previous examination. 3. Large volume of abdominal and pelvic ascites. This is new when compared with the prior study. 4. No evidence of bowel obstruction. 5. Exophytic mass arising from the upper pole of the right kidney Disposition Summary Disposition Principal Diagnosis: Cellulitis of RLE Additional Diagnosis: ESRD Discharge Disposition: SNF Discharge Instructions General Discharge Information Code Status: Full Code Patient's Diet: Renal Dialysis Diet Patient's Activity: as tolerated. Follow-Up Instructions/Appts: 1. Please follow up with your PCP within one week of discharge. 2. Please follow up with your leasing machine tender, and discuss about scheduling the renal dialsysis. Please discuss about the change in medications that are added to your dialysate. Please discuss about duration of thiosulphate duration. 3. Please follow up with your web production artist within one week of discharge. 4. Please follow up with your digital associate, and vascular surgeon regarding the ulcer on left lower extremity. 5. Please follow up with your vascular surgeon for a possible angiogram. Medications at Discharge Discharge Medications: Stop taking the following medications: Losartan Potassium (Losartan Potassium) 50 MG TABLET ORAL DAILY Qty = 30 Continue taking these medications: Trazodone HCl (Trazodone HCl) 150 MG TABLET 1 Tablet ORAL Every night Qty = 35 Comments: Last Taken:01/13/18 Time:2200 Folic Acid (Folic Acid) 1 MG TABLET 1 Tablet ORAL DAILY Qty = 30 Comments: Last Taken:01/14/18 Time:1400 Aspirin (Ecotrin*) 81 MG TABLET.DR 1 Tablet ORAL DAILY Comments: Last Taken:01/14/18 Time:1400 Alprazolam (Xanax) 0.5 MG TABLET 1 Tablet ORAL TWICE DAILY as needed for ANXIETY Qty = 15 Comments: DID NOT ADMINISTER AT HOSPITAL Isosorbide Mononitrate (Isosorbide Mononitrate ER) 60 MG TAB.ER.24H 1 Tablet ORAL DAILY Qty = 30 Comments: NOT GIVEN IN HOSPITAL Ramelteon (Rozerem) 8 MG TABLET 1 Tablet ORAL AT BEDTIME Qty = 30 Comments: Last Taken:01/13/18 Time:2211 Sertraline HCl (Zoloft) 100 MG TABLET 1.5 Tablet ORAL DAILY Comments: Last Taken:01/14/18 Time:1400 Clopidogrel Bisulfate (Plavix) 75 MG TABLET 75 Milligram ORAL DAILY Qty = 30 Comments: Last Taken:01/14/18 Time:1400 Sevelamer Carbonate (Renvela) 800 MG TABLET 2 Tablet ORAL 3 TIMES DAILY BEFORE MEALS Comments: Last Taken:01/14/18 Time:1400 Insulin Aspart (Novolog) 100 UNIT/ML CARTRIDGE 0 Inject into fatty tissue 3 TIMES DAILY BEFORE MEALS Qty = 2 Instructions: BEFORE MEALS... Blood Insulin Sugar Units <80 0 81-150 3 151-200 4 201-250 6 251-300 7 301-350 8 351-400 9 >400 10 Call Doctor Comments: Last Taken:01/13/18 Time:1600 Hydroxyzine Hydrochloride (Atarax) 25 MG TAB 1 Tablet ORAL THREE TIMES DAILY as needed for ITCHING Qty = 10 Instructions: ONLY 10 PILLS. Comments: DID NOT GET WHILE IN THE HOSPITAL Nitroglycerin (Nitroglycerin) 0.4 MG TAB.SUBL 1 Tablet SUBLINGUAL DAILY as needed for CHEST PAIN Instructions: 1st sign of attack; may repeat every 5 minutes until relief; if pain persists after 3 tablets in 15 minutes, prompt medical att Comments: DID NOT ADMINISTER IN THE HOSPITAL Hydrocodone/Acetaminophen (Hydrocodon-Acetaminophen 5-325) 5 MG-325 MG TABLET 1 Tablet ORAL EVERY 8 HOURS as needed for PAIN Qty = 20 Comments: Last Taken:01/14/18 Time:0600 Levothyroxine Sodium (Levothyroxine Sodium) 200 MCG TABLET 1 Tablet ORAL DAILY BEFORE BREAKFAST Comments: Last Taken:01/14/18 Time:1400 Start taking the following new medications: Ergocalciferol (Vitamin D2) (Vitamin D2) 50,000 UNIT CAPSULE 50,000 International Unit ORAL EVERY TUESDAY Qty = 6 No Refills Comments: Last Taken:01/10/18 Time:1600 Gabapentin (Gabapentin) 100 MG CAPSULE 100 Milligram ORAL DAILY Qty = 30 No Refills Comments: Last Taken:01/14/18 Time:1400 Copies To: Lakeisha Benedict DO, MD Review Statement Documenting Attending: Vale Diehl MD
--- NOTE | 2018-01-12 07:54 | PN- Housestaff ---
Trina Mayes 01/12/18 0754: Subjective Follow-up For: see Problem list in AP Tele-Events Since Last Visit: OFF Subjective: No overnight event. Patient was in dialysis scheduled. Still complaining of R knee pain on touching. Acknowledged that we started gabapentin. Patient felt his R arm was more swelling than his L arm, however denied any tenderness/sensation loss He would like to catch up on Dr. Rodriguez's appointment tomorrow for Angioplasty. Review of Systems Constitutional: Reports: see HPI. Objective Last 24 Hrs of Vital Signs/I&O Vital Signs Date Time Temp Pulse Resp B/P B/P Pulse O2 O2 Flow FiO2 Mean Ox Delivery Rate 01/12 06 97.5 89 17 112/74 93 01/11 2225 97.7 90 16 110/76 86 01/11 2036 Nasal 1.0L Cannula 01/11 1600 95 Nasal 2.0L Cannula 01/11 1352 97.4 85 20 90/50 87 Nasal 1.0L Cannula Intake & Output 01/12 1600 01/12 0800 01/12 0000 Intake Total 360 480 Output Total Balance 360 480 Intake, Oral 360 480 Number 1 1 Bowel Movements Patient 91.796 kg Weight Physical Exam General Appearance: Alert, Oriented X3, Cooperative, No Acute Distress Cardiovascular: Regular Rate Lungs: Clear to Auscultation, Normal Air Movement Abdomen: Soft, No Tenderness Neurological: Normal Speech Extremities: R knee tenderness on touching, mild erythema at R knee cap without much swelling R medial thigh punch biopsy site in post-op dressing care, RLE strength 3/5 can move side ways against gravity but could not bend R knee Current Medications: Current Medications Sig/Julissa Start time Last Medication Dose Route Stop Time Status Admin Albuterol Sulfate 3 ML TID 01/07 2200 AC INH Alprazolam 0.5 MG BID PRN 01/05 1700 AC 01/10 PO 01/12 1659 2118 Ampicillin Sodium/ 1,500 MG Q12 01/07 2200 DC 01/11 Sulbactam Sodium IV 2114 Sodium Chloride 100 ML Aspirin Buffered 81 MG DAILY 01/06 1000 AC 01/11 PO 1232 Clopidogrel Bisulfate 75 MG DAILY 01/10 1745 AC 01/11 PO 0957 Epoetin [place] 4,000 UNIT TuThSa PRN 01/05 1445 AC IV Ergocalciferol 50,000 IU QTUES 01/10 1530 AC 01/10 PO 1631 Folic Acid 1 MG DAILY 01/06 1000 AC 01/11 PO 1233 Gabapentin 100 MG DAILY 01/11 1000 AC 01/11 PO 1232 Heparin Sodium 5,000 UNIT Q8 01/05 2200 AC 01/12 (Porcine) SC 0606 Hydrocodone Bitart/ 1 TAB Q8P PRN 01/05 1930 AC 01/11 Acetaminophen PO 1935 Insulin Aspart 0 TIDAC 01/08 1200 AC 01/11 SC 0828 Ipratropium [place] 2.5 ML TID 01/07 2200 AC INH Levothyroxine Sodium 0.2 MG DAILY AC 01/06 0700 AC 01/11 PO 0632 Metoclopramide HCl 10 MG Q6P PRN 01/06 0830 AC 01/08 IV 1338 Pantoprazole Sodium 40 MG DAILY 01/06 1000 AC 01/11 IV 0957 Polyethylene Glycol 17 GM DAILY 01/08 1416 AC 01/11 PO 1233 Ramelteon 8 MG AT BEDTIME 01/05 2200 AC 01/11 PO 2113 Senna 187 MG AT BEDTIME 01/08 2200 AC 01/11 PO 2113 Sertraline HCl 150 MG DAILY 01/06 1000 AC 01/11 PO 1232 Sevelamer Carbonate 1,600 MG TIDAC 01/06 1200 AC 01/11 PO 1711 Sodium Chloride 2 SPRAY Q4P PRN 01/10 1930 AC 01/10 DALIA 2113 Sodium Thiosulfate 25 GM TuThSa@1000 01/12 1000 AC Sodium Chloride 250 ML IV Trazodone HCl 150 MG QPM 01/05 2200 AC 01/11 PO 211 Last 24 Hrs of Lab/Angus Results Last 24 Hrs of Labs/Mics: Laboratory Tests 01/12/18 0710: Sodium Pending, Potassium Pending, Chloride Pending, Carbon Dioxide Pending, Anion Gap Pending, BUN Pending, Creatinine Pending, BUN/Creatinine Ratio Pending , Calcium Pending, Phosphorus Pending, Magnesium Pending, Albumin Pending, CBC w Diff Pending, WBC Pending, RBC Pending, Hgb Pending, Hct Pending, MCV Pending, MCH Pending, MCHC Pending, RDW Pending, Plt Count Pending, MPV Pending, Gran % Pending, Lymphocytes % Pending, Monocytes % Pending, Eosinophils % Pending, Basophils % Pending, Absolute Granulocytes Pending, Absolute Lymphocytes Pending , Absolute Monocytes Pending, Absolute Eosinophils Pending, Absolute Basophils Pending Assessment/Plan Assessment: Mr. Dodd is a 68-year-old male with PMH of CAD S/P 6 stents, COPD on home oxygen 2 L, ESRD on HD with left arm aVF, hypertension, hyperlipidemia, PVD, chronic back pain, diabetes, thyroid cancer status post thyroidectomy, chronic BUE BLE muscle pain/weakness, CBP, anxiety/depression, presented to ER with chief complaint of generalized pain over the body, and inability to ambulate due to the right knee pain. Patient reported pain in his bilateral knees, and a mechanical for 2 weeks ago, however now the pain is mostly in his right knee, and inability to bend or move without being painful, is feeling of sharp knife stabbing pain 7-8/10, no radiations, and denies fever/chills. Patient also reported multiple chronic pulses especially on his bilateral upper and lower extremities. Due to the knee pain, patient was unable to make to dialysis today and presented to the ER for further evaluation. Patient denies any loss of consciousness/chest pain/palpitations/dyspnea/pedal edema. Patient was supposed to get angiogram for evaluation of peripheral vascular disease by Dr. Rodriguez. Dr. Rodriguez was contacted over the phone, and confirmed up appointment to be around 01/13/2018. On admission, Vitals: Afebrile BP 70s-90s/40s-50s, HR 90s, satting 99% on room air -CBC: WBC 9.5 (91% granulocytes), H/H 12.4/47.0 (anemia of chronic disease), PLT 181, -BMP: NA 144, K5.1, BUN 57, CR 5.6 (ESRD), EGFR 10, glucose 196, CA 7.4, bicarb 19 (metabolic acidosis) -Misc: ALK P 41, troponin 1 0.17, CRP 3.6, ESR 20, -CXR: 1. Slight interval increase elevation of the right hemidiaphragm. Small right effusion. Right basilar atelectasis. 2. No acute osseous abnormality appreciated in the chest or pelvis. -Knee Xray: 1. RIGHT KNEE: Chondrocalcinosis. No evidence of acute injury. 2. LEFT KNEE: Chondrocalcinosis. Minor spurring of the patella. No evidence of acute injury. -Pelvis XR: 1. Slight interval increase elevation of the right hemidiaphragm. Small right effusion. Right basilar atelectasis. 2. No acute osseous abnormality appreciated in the chest or pelvis. -BLE V-doppler: Negative for DVT -EKG: Pending. -Interventions in ER: IVF 2.5 L bolus, Zofran, Tylenol, Epogen 4000 units IV Tuesday scheduled. Problem list #Elevated Trop, 2/2 renal insufficiency: multiple past admissions with elevated trops, with underlying hx of CAD. 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 borderline hypotensive w/ SBP improved to 100s, asymptomatic. Low threshold for ICU transfer. - In dialysis, stable without complaint. -Continue only Unasyn for R medial thigh necrotic lesioncellulitis/calciphylaxis , BC had NGTD. - Wound culture had S.Aureus growth, could be MRSA due to patient's long standing history in healthcare setting (dialysis, STR), however could be just colonization. No clinical signs of infection so far. -Pending biopsy result. 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 -Discussed with IR radiologist Dr. Harris on phone regarding patient's ascites, that patient had no clear clinical indication for proceeding with paracentesis, and the amount of ascites was too small for U/S guided. A bowel prep and CT- guided procedure would be needed, which would expose patient to unnecessary risks in return of minimal clinical benefit. Patient's ascites without leukocytosis/fever/active abdominal symptoms was likely a result of volume overload. Would hold off IR paracentesis for now. hypotension. patient's clinical condition and STR placement, this may be delayed. I had discussed with Dr. Rodriguez over the phone and will keep him updated on progress. -Urology consult recommended serial images f.u for right renal cyst in outpatient. currently no inhospital intervention. DVT prophylaxis ALPS Dialysis diet Full Code Problem List: 1. ESRD (end stage renal disease) on dialysis Pain Ratin Pain Location: R knee Pain Goal: Pain 7 or less Pain Plan: see AP Tomorrow's Labs & Rationales: CBC/BEP Vale Diehl 01/12/18 1127: Attending MD Review Statement Attending Statement Attending MD Statement: examined this patient, discuss w/resident/PA/BUSINESS SERVICES REPRESENTATIVE, agreed w/resident/PA/BUSINESS SERVICES REPRESENTATIVE, discussed with family, reviewed EMR data (avail), discussed with nursing, discussed with case mgmt, reviewed images, amended to note Attending Assessment/Plan: 68 o/m with ESRD on HD, severe peripheral vascular disease, chronic hypotensive epsiodes and asymptomatic with no dizziness came with right lower extremity pain , redness and inability to move his right lower extrmeity on admission as per patient. Though he can move sideways motor strength 3/5. Right lower extremity cellultiis being treated with abx, ID consulted and plan for abx as per ID. Wound culture grew MRSA and abx switched to vancomycin. Surgery did biopsy for possible calciphylaxis lesion, f/u final pathology prelim is negative. Nephrology on board and dialysis plan as per nephrology. Plan to treat with iv thiosulphate as per nephrology during HD sessions. Informed dermatology for erythema and swelling on lower extrmeity/rash and follow outpatient. IR consulted for posible paracentesis if BP allows (amount is small). Patient receiving pain meds for pain control. PVD to be followed by vascular surgery. Patient is unable to move his right lower extremity since admission. Plan for angiogram as per Vasc surgery. (f/u Dr Rodriguez) PT with assist of two. Needs STR placement with o/p dialysis arrangement and iv thiosulfate as per renal. Patient off telemetry and can be trasnferred to gen/med. PVD to be followed by vascular surgery. Patient is unable to move his right lower extremity since admission. Plan for angiogram as per Vas surgery. (f/u Dr Rodriguez) PT with assist of two. Needs STR placement with o/p dialysis arrangement and iv thiosulfate as per renal. Patient off telemetry and can be trasnferred to gen/med.
[2018-01-12 08:15] LABS: ABSOLUTE BASOPHIL COUNT 0 /CUMM (0.0-0.2); ABSOLUTE EOSINOPHIL COUNT 0 /CUMM (0.0-0.7); ABSOLUTE GRANULOCYTE CT 6.4 /CUMM (1.4-6.5); ABSOLUTE LYMPH COUNT 0.8 /CUMM (1.2-3.4); ABSOLUTE MONOCYTE COUNT 0.5 /CUMM (0.10-0.60); BASOPHIL % 0 % (0.0-2.0); EOSINOPHIL % 0.4 % (0-5); GRANULOCYTE % 83.2 % (42.2-75.2); HEMATOCRIT 37.1 % (42-52); MEAN CORPUSCULAR HGB 29.7 PG (27.0-31.0); MEAN CORPUSCULAR HGB CONC 32.6 G/DL (33.0-37.0); MEAN CORPUSCULAR VOLUME 91.2 FL (80.0-94.0); MEAN PLATELET VOLUME 8.7 FL (7.4-10.4); PLATELET COUNT 178 /CUMM (130-400); RBC DISTRIBUTION WIDTH 18.9 % (11.5-14.5); RED BLOOD CELL CT 4.07 /CUMM (4.70-6.10); WHITE BLOOD CELL COUNT 7.7 /CUMM (4.8-10.8)
--- NOTE | 2018-01-12 11:06 | PN- Infect Dx ---
Subjective Subjective: Afebrile. He feels slightly improved though still reports pain in the right medial thigh. Objective Last 24 Hrs of Vital Signs/I&O Vital Signs Date Time Temp Pulse Resp B/P B/P Pulse O2 O2 Flow FiO2 Mean Ox Delivery Rate 01/13 652 97.5 89 17 112/74 93 01/11 2225 97.7 90 16 110/76 86 01/11 2036 Nasal 1.0L Cannula 01/11 1600 95 Nasal 2.0L Cannula 01/11 1352 97.4 85 20 90/50 87 Nasal 1.0L Cannula Intake & Output 01/12 1600 01/12 0800 01/12 0000 Intake Total 360 480 Output Total Balance 360 480 Intake, Oral 360 480 Number 1 1 Bowel Movements Patient 202 lb Weight Physical Exam Other Physical Findings: He appears comfortable, currently on dialysis, in no acute distress Lungs are clear Heart regular rhythm with no murmur Extremities right medial thigh necrotic lesion, exquisitely tender to palpation, with surrounding erythema and tenderness unchanged Results Last 24 Hours of Lab Results: Laboratory Tests 01/12 07 Chemistry Sodium (137 - 145 mmol/L) 131 L Potassium (3.5 - 5.1 mmol/L) 4.8 Chloride (98 - 107 mmol/L) 95 L Carbon Dioxide (22 - 30 mmol/L) 21 L Anion Gap (5 - 16) 15 BUN (9 - 20 mg/dL) 36 H Creatinine (0.7 - 1.2 mg/dL) 4.6 H Estimated GFR (>60 ml/min) 13 L BUN/Creatinine Ratio (7 - 25 %) 7.8 Calcium (8.4 - 10.2 mg/dL) 7.0 L Phosphorus (2.5 - 4.5 mg/dL) 3.8 Magnesium (1.6 - 2.3 mg/dL) 2.1 Albumin (3.5 - 5.0 g/dL) 2.7 L Hematology CBC w Diff NO MAN DIFF REQ WBC (4.8 - 10.8 /CUMM) 7.7 RBC (4.70 - 6.10 /CUMM) 4.07 L Hgb (14.0 - 18.0 G/DL) 12.1 L Hct (42 - 52 %) 37.1 L MCV (80.0 - 94.0 FL) 91.2 MCH (27.0 - 31.0 PG) 29.7 MCHC (33.0 - 37.0 G/DL) 32.6 L RDW (11.5 - 14.5 %) 18.9 H Plt Count (130 - 400 /CUMM) 178 MPV (7.4 - 10.4 FL) 8.7 Gran % (42.2 - 75.2 %) 83.2 H Lymphocytes % (20.5 - 51.1 %) 9.9 L Monocytes % (1.7 - 9.3 %) 6.5 Eosinophils % (0 - 5 %) 0.4 Basophils % (0.0 - 2.0 %) 0 Absolute Granulocytes (1.4 - 6.5 /CUMM) 6.4 Absolute Lymphocytes (1.2 - 3.4 /CUMM) 0.8 L Absolute Monocytes (0.10 - 0.60 /CUMM) 0.5 Absolute Eosinophils (0.0 - 0.7 /CUMM) 0 Absolute Basophils (0.0 - 0.2 /CUMM) 0 Last 24 Hours of Angus Results: Right thigh biopsy culture positive for Staph aureus, sensitivities pending, with gram stain revealing no white blood cells and no organisms Skin biopsy January 10 (preliminary report) no evidence for calciphylaxis, with no calcium deposits noted in the blood vessels Assessment/Plan ID Impression: Stable, with temperatures and white blood cell count remaining normal, on Unasyn now Day 5 of treatment for possible cellulitis, status post skin biopsy 2 days ago of the necrotic right medial thigh lesion, with the preliminary report negative for calciphylaxis. The culture is growing Staph aureus, which may just represent colonization but, given the evidence of surrounding cellulitis, would treat for possible MRSA pending final culture. He is to be started on sodium thiosulfate today at the end of dialysis pending final biopsy results. Suggestion: 1. Follow-up final biopsy and culture results 2. Further management of possible calciphylaxis per Renal 3. Eventual lower extremity angiogram per Vascular Surgery (now planned as an outpatient) 4. Discontinue Unasyn 5. Would give 1 dose of Vancomycin 1250 mg IV 1 pending above
--- NOTE | 2018-01-12 11:16 | PN- Nephrology ---
Assessment/Plan Nephrology Assessment: 1. ESRD 2. Cellulitis right lower extremity medial to knee- on Unasyn; ?calciphylaxis; preliminary biopsy results showed no calcifications; biopsy culture growing staph aureus 3. Hypotension - chronic with exacerbations 4. 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 acute 5. Ascites which appears to be new 6. Right upper pole renal mass - to be followed as an outpatient Suggestion: 1. Hemodialysis today and progress with 2-3 L ultrafiltration as blood pressure will allow over 4 hours 2. To get his first dose of thiosulfate at end of dialysis today; I plan to continue it for at least several weeks while monitoring his thigh lesion 3. Skin biopsy final result pending 4. Antibiotic therapy per ID 5. Next hemodialysis for Sunday 01/14 Subjective Subjective: Patient seen with dialysis and definitely more comfortable today - states that the discomfort in his right thigh is somewhat less severe. He remains afebrile. Skin biopsy preliminary result as noted, final result pending. Skin biopsy culture growing staph aureus, sensitivities pending. Given 1 dose of vancomycin. Objective Vital Signs and I&Os Vital Signs Date Time Temp Pulse Resp B/P B/P Pulse O2 O2 Flow FiO2 Mean Ox Delivery Rate 01/12 0652 97.5 89 17 112/74 93 01/11 2225 97.7 90 16 110/76 86 01/11 2036 Nasal 1.0L Cannula 01/11 1600 95 Nasal 2.0L Cannula 01/11 1352 97.4 85 20 90/50 87 Nasal 1.0L Cannula Intake & Output 01/12 0400 01/11 1600 01/11 0400 01/10 1600 01/10 0400 Intake Total 360 480 720 560 20 240 Output Total 1 1500 Balance 360 480 719 560 -1480 240 Intake, IV 120 110 Intake, Oral 360 480 600 450 20 240 Number 1 1 1 1 Bowel Movements Output, 1500 Dialysate Output, Stool 1 Patient 202 lb 209 lb 205 lb Weight Physical Exam: General: Well-developed white male, in no acute distress Skin: Generalized skin rash with areas of macules, papules, excoriations, as well as discoloration in pretibial regions and feet; no jaundice HEENT: Conjunctivae pink, sclerae anicteric, mucous membranes moist Chest: Clear with diminished BS at bases Heart: Regular rate and rhythm without S3 or rub Abdomen: Distended but soft without palpable masses or organomegaly Extremities: Areas of dry gangrene and necrosis in multiple toes bilaterally; 1+ edema; on the medial aspect of the right knee there is tender erythema and induration with a central area of purple/ecchymotic lesions also quite tender; the left upper arm AVF is patent Neuro: Awake, alert, no asterixis or myoclonus Results Pertinent Lab Results: Laboratory Tests 01/12 01/11 0710 0640 Chemistry Sodium (137 - 145 mmol/L) 131 L 134 L Potassium (3.5 - 5.1 mmol/L) 4.8 4.3 Chloride (98 - 107 mmol/L) 95 L 96 L Carbon Dioxide (22 - 30 mmol/L) 21 L 24 Anion Gap (5 - 16) 15 14 BUN (9 - 20 mg/dL) 36 H 29 H Creatinine (0.7 - 1.2 mg/dL) 4.6 H 3.8 H Estimated GFR (>60 ml/min) 13 L 16 L BUN/Creatinine Ratio (7 - 25 %) 7.8 7.6 Calcium (8.4 - 10.2 mg/dL) 7.0 L 7.1 L Phosphorus (2.5 - 4.5 mg/dL) 3.8 3.5 Magnesium (1.6 - 2.3 mg/dL) 2.1 Albumin (3.5 - 5.0 g/dL) 2.7 L Hematology CBC w Diff NO MAN DIFF REQ NO MAN DIFF REQ WBC (4.8 - 10.8 /CUMM) 7.7 7.3 RBC (4.70 - 6.10 /CUMM) 4.07 L 3.92 L Hgb (14.0 - 18.0 G/DL) 12.1 L 11.9 L Hct (42 - 52 %) 37.1 L 36.2 L MCV (80.0 - 94.0 FL) 91.2 92.4 MCH (27.0 - 31.0 PG) 29.7 30.4 MCHC (33.0 - 37.0 G/DL) 32.6 L 32.8 L RDW (11.5 - 14.5 %) 18.9 H 19.6 H Plt Count (130 - 400 /CUMM) 178 166 MPV (7.4 - 10.4 FL) 8.7 8.2 Gran % (42.2 - 75.2 %) 83.2 H 84.9 H Lymphocytes % (20.5 - 51.1 %) 9.9 L 7.0 L Monocytes % (1.7 - 9.3 %) 6.5 7.8 Eosinophils % (0 - 5 %) 0.4 0.2 Basophils % (0.0 - 2.0 %) 0 0.1 Absolute Granulocytes (1.4 - 6.5 /CUMM) 6.4 6.2 Absolute Lymphocytes (1.2 - 3.4 /CUMM) 0.8 L 0.5 L Absolute Monocytes (0.10 - 0.60 /CUMM) 0.5 0.6 Absolute Eosinophils (0.0 - 0.7 /CUMM) 0 0 Absolute Basophils (0.0 - 0.2 /CUMM) 0 0 01/10 01/10 01/10 1532 1532 1532 Other Body Source Fluid WBC Cancelled Fld Total RBCs Counted Cancelled Fluid Glucose Cancelled Fluid Total Protein Cancelled Cancelled Fluid Albumin Cancelled Fluid LDH Cancelled Fluid Amylase Cancelled 01/10 01/10 01/10 0728 0709 0709 Chemistry Sodium Cancelled Potassium Cancelled Chloride Cancelled Carbon Dioxide Cancelled Anion Gap Cancelled BUN Cancelled Creatinine Cancelled BUN/Creatinine Ratio Cancelled Calcium Cancelled PTH Intact (18.4 - 80.1 pg/ML) 92.6 H Hematology CBC w Diff NO MAN DIFF REQ WBC (4.8 - 10.8 /CUMM) 7.2 RBC (4.70 - 6.10 /CUMM) 4.00 L Hgb (14.0 - 18.0 G/DL) 12.0 L Hct (42 - 52 %) 36.7 L MCV (80.0 - 94.0 FL) 91.8 MCH (27.0 - 31.0 PG) 30.1 MCHC (33.0 - 37.0 G/DL) 32.8 L RDW (11.5 - 14.5 %) 19.5 H Plt Count (130 - 400 /CUMM) 174 MPV (7.4 - 10.4 FL) 8.8 Gran % (42.2 - 75.2 %) 82.4 H Lymphocytes % (20.5 - 51.1 %) 9.5 L Monocytes % (1.7 - 9.3 %) 7.7 Eosinophils % (0 - 5 %) 0.1 Basophils % (0.0 - 2.0 %) 0.3 Absolute Granulocytes (1.4 - 6.5 /CUMM) 5.9 Absolute Lymphocytes (1.2 - 3.4 /CUMM) 0.7 L Absolute Monocytes (0.10 - 0.60 /CUMM) 0.6 Absolute Eosinophils (0.0 - 0.7 /CUMM) 0 Absolute Basophils (0.0 - 0.2 /CUMM) 0 04/03 0600 Chemistry Sodium (137 - 145 mmol/L) 132 L Potassium (3.5 - 5.1 mmol/L) 4.9 Chloride (98 - 107 mmol/L) 94 L Carbon Dioxide (22 - 30 mmol/L) 22 Anion Gap (5 - 16) 16 BUN (9 - 20 mg/dL) 49 H Creatinine (0.7 - 1.2 mg/dL) 5.2 *H Estimated GFR (>60 ml/min) 11 L BUN/Creatinine Ratio (7 - 25 %) 9.4 Calcium (8.4 - 10.2 mg/dL) 7.0 L Phosphorus (2.5 - 4.5 mg/dL) 4.6 H 25-OH Vitamin D Total (30 - 100 ng/ml) 9.3 L PTH Intact (18.4 - 80.1 pg/ML) 62.0
--- NOTE | 2018-01-12 11:46 | PN- Cardiology ---
Subjective Subjective: The patient is seen at dialysis. He reports that he is feeling well. No chest pain. No shortness of breath. No palpitations. No diaphoresis. Objective Vital Signs and I&Os Vital Signs Date Time Temp Pulse Resp B/P B/P Pulse O2 O2 Flow FiO2 Mean Ox Delivery Rate 01/13 800 95 Nasal 1.0L Cannula 01/12 06 97.5 89 17 112/74 93 01/11 2225 97.7 90 16 110/76 86 01/12 2036 Nasal 1.0L Cannula 01/12 1600 95 Nasal 2.0L Cannula 01/11 1352 97.4 85 20 90/50 87 Nasal 1.0L Cannula Intake & Output 01/12 0000 01/11 0000 Intake Total 360 480 600 120 560 Output Total 1 Balance 360 480 600 119 560 Intake, IV 120 110 Intake, Oral 360 480 480 120 450 Number 1 1 1 1 Bowel Movements Output, Stool 1 Patient 202 lb 209 lb Weight Physical Exam: Gen: NAD HEENT: normal Lungs: clear to auscultation, normal resp. effort Heart: RRR, S1, S2, 1 / 6 systolic murmur Abdomen: Soft, nontender, no masses Extremities: No clubbing, cyanosis, or edema. Neuro: Alert and oriented x 3, cranial nerves intact Current Medications: Current Medications Sig/Julissa Start time Last Medication Dose Route Stop Time Status Admin Albuterol Sulfate 3 ML TID 01/07 220 AC INH Alprazolam 0.5 MG BID PRN 01/05 1700 AC 01/10 PO 01/12 1659 2118 Ampicillin Sodium/ 1,500 MG Q12 01/07 2200 DC 01/11 Sulbactam Sodium IV 2114 Sodium Chloride 100 ML Aspirin Buffered 81 MG DAILY 01/06 1000 AC 01/11 PO 1232 Clopidogrel Bisulfate 75 MG DAILY 01/10 1745 AC 01/11 PO 0957 Epoetin [place] 4,000 UNIT TuThSa PRN 01/05 1445 AC IV Ergocalciferol 50,000 IU QTUES 01/10 1530 AC 01/10 PO 1631 Folic Acid 1 MG DAILY 01/06 1000 AC 01/11 PO 1233 Gabapentin 100 MG DAILY 01/11 1000 AC 01/11 PO 1232 Heparin Sodium 5,000 UNIT Q8 01/05 2200 AC 01/12 (Porcine) SC 0606 Hydrocodone Bitart/ 1 TAB Q8P PRN 01/05 193 AC 01/11 Acetaminophen PO 193 Insulin Aspart 0 TIDAC 01/08 1200 AC 01/11 SC 0828 Ipratropium [place] 2.5 ML TID 01/07 2200 AC INH Levothyroxine Sodium 0.2 MG DAILY AC 01/06 0700 AC 01/11 PO 0632 Metoclopramide HCl 10 MG Q6P PRN 01/06 0830 AC 01/08 IV 1338 Pantoprazole Sodium 40 MG DAILY 01/06 1000 AC 01/11 IV 0957 Polyethylene Glycol 17 GM DAILY 01/08 1416 AC 01/11 PO 1233 Ramelteon 8 MG AT BEDTIME 01/05 2200 AC 01/11 PO 211 Senna 187 MG AT BEDTIME 01/08 2200 AC 01/11 PO 211 Sertraline HCl 150 MG DAILY 01/06 1000 AC 01/11 PO 1232 Sevelamer Carbonate 1,600 MG TIDAC 01/06 1200 AC 01/12 PO 0830 Sodium Chloride 2 SPRAY Q4P PRN 01/10 193 AC 01/10 DALIA 2113 Sodium Thiosulfate 25 GM TuThSa@1000 01/12 1000 AC Sodium Chloride 250 ML IV Trazodone HCl 150 MG QPM 01/05 2200 AC 01/11 PO 211 Results Last 48 Hrs of Labs/Mics: Laboratory Tests 01/12/18 0710: Anion Gap 15, Estimated GFR 13 L, BUN/Creatinine Ratio 7.8, Calcium 7.0 L, Phosphorus 3.8, Magnesium 2.1, Albumin 2.7 L, CBC w Diff NO MAN DIFF REQ, RBC 4.07 L, MCV 91.2, MCH 29.7, MCHC 32.6 L, RDW 18.9 H, MPV 8.7, Gran % 83.2 H, Lymphocytes % 9.9 L, Monocytes % 6.5, Eosinophils % 0.4, Basophils % 0, Absolute Granulocytes 6.4, Absolute Lymphocytes 0.8 L, Absolute Monocytes 0.5, Absolute Eosinophils 0, Absolute Basophils 0 01/11/18 0640: Anion Gap 14, Estimated GFR 16 L, BUN/Creatinine Ratio 7.6, Calcium 7.1 L, Phosphorus 3.5, CBC w Diff NO MAN DIFF REQ, RBC 3.92 L, MCV 92.4, MCH 30.4, MCHC 32.8 L, RDW 19.6 H, MPV 8.2, Gran % 84.9 H, Lymphocytes % 7.0 L, Monocytes % 7.8, Eosinophils % 0.2, Basophils % 0.1, Absolute Granulocytes 6.2, Absolute Lymphocytes 0.5 L, Absolute Monocytes 0.6, Absolute Eosinophils 0, Absolute Basophils 0 01/10/18 1532: Fluid WBC Cancelled, Fld Total RBCs Counted Cancelled 01/10/18 1532: Fluid Total Protein Cancelled 01/10/18 1532: Fluid Glucose Cancelled, Fluid Total Protein Cancelled, Fluid Albumin Cancelled, Fluid LDH Cancelled, Fluid Amylase Cancelled Assessment/Plan Assessment/Plan 1. Elevated troponin with no cardiac symptoms. 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 2. Generalized pain 3. Chronic issues with lower extremity arterial and venous insufficiency/PAD/ PVI 4. End-stage renal disease on hemodialysis 5. Elevated bilirubin 6. cardiomyopathy of coronary artery disease with worsening left ventricular systolic function as noted on echocardiogram Plan: * Continue current cardiac medications. * No further inpatient cardiac workup * Follow up with Dr. Lee in 1-2 weeks after discharge Continue telemetry? No
[2018-01-12 14:31] VITALS: BP 86/60
[2018-01-13 06:32] VITALS: BP 94/00
--- NOTE | 2018-01-13 07:36 | PN- Housestaff ---
MayesTrina 01/13/18 0735: Subjective Follow-up For: As problem list in AP. Tele-Events Since Last Visit: Off Subjective: No overnight event. Patient was kept NPO for possible angioplasty today. Otherwise no complaint. Tried to bend his R knee, with slight bending and hurt at the R medial thigh. Was concerned about the transportation fee at [facility] if he remained at assist of 2 Review of Systems Constitutional: Reports: see HPI. Objective Last 24 Hrs of Vital Signs/I&O Vital Signs Date Time Temp Pulse Resp B/P B/P Pulse O2 O2 Flow FiO2 Mean Ox Delivery Rate 01/13 0632 97.6 91 20 94/00 97 Nasal Cannula 01/13 0000 Nasal 1.0L Cannula 01/12 2350 97.6 97 12 93 Nasal 1.0L Cannula 01/12 1600 Nasal 2.0L Cannula 01/12 1431 97.4 94 20 86/60 92 Nasal 1.0L Cannula 01/12 0800 95 Nasal 1.0L Cannula Intake & Output 01/13 0800 01/13 0000 01/12 1600 Intake Total 30 300 480 Output Total 3500 Balance 30 300 -3020 Intake, Oral 30 300 480 Number 1 Bowel Movements Output, 3500 Dialysate Patient 87.005 kg Weight Weight Bed scale Measurement Method Physical Exam General Appearance: Alert, Oriented X3, Cooperative, No Acute Distress Cardiovascular: Regular Rate Lungs: Clear to Auscultation, Normal Air Movement Abdomen: No Tenderness Neurological: Normal Speech Extremities: BLE improved on healing ulcers, R knee limited ROM however slightly improved on bending, still illicit pain at R medial thigh Current Medications: Current Medications Sig/Julissa Start time Last Medication Dose Route Stop Time Status Admin Albuterol Sulfate 3 ML TID 01/07 2200 AC INH Alprazolam 0.5 MG BID PRN 01/05 1700 DC 01/10 PO 01/12 1659 2118 Aspirin Buffered 81 MG DAILY 01/06 1000 AC 01/12 PO 1148 Clopidogrel Bisulfate 75 MG DAILY 01/10 1745 AC 01/12 PO 1148 Epoetin [place] 4,000 UNIT TuThSa PRN 01/05 1445 AC IV Ergocalciferol 50,000 IU QTUES 01/10 1530 AC 01/10 PO 1631 Folic Acid 1 MG DAILY 01/06 1000 AC 01/12 PO 1147 Gabapentin 100 MG DAILY 01/11 1000 AC 01/12 PO 1148 Heparin Sodium 5,000 UNIT Q8 01/05 2200 AC 01/13 (Porcine) SC 0638 Hydrocodone Bitart/ 1 TAB Q8P PRN 01/13 0400 AC 01/13 Acetaminophen PO 0420 Hydrocodone Bitart/ 1 TAB .STK-MED ONE 01/13 2032 DC Acetaminophen PO 01/12 203 Hydrocodone Bitart/ 1 TAB Q8P PRN 01/05 1930 DC 01/11 Acetaminophen PO 1935 Insulin Aspart 0 TIDAC 01/08 1200 AC 01/12 SC 1712 Ipratropium [place] 2.5 ML TID 01/07 2200 AC INH Levothyroxine Sodium 0.2 MG DAILY AC 01/06 0700 AC 01/13 PO 0701 Metoclopramide HCl 10 MG Q6P PRN 01/06 0830 AC 01/08 IV 1338 Pantoprazole Sodium 40 MG DAILY 01/06 1000 AC 01/12 IV 1153 Polyethylene Glycol 17 GM DAILY 01/08 1416 AC 01/12 PO 1148 Ramelteon 8 MG AT BEDTIME 01/05 2200 AC 01/12 PO 2038 Senna 187 MG AT BEDTIME 01/08 2200 AC 01/12 PO 2036 Sertraline HCl 150 MG DAILY 01/06 1000 AC 01/12 PO 1147 Sevelamer Carbonate 1,600 MG TIDAC 01/06 1200 AC 01/12 PO 1704 Sodium Chloride 2 SPRAY Q4P PRN 01/10 1930 AC 01/10 DALIA 2113 Sodium Thiosulfate 25 GM TuThSa@1000 01/12 1000 AC 01/12 Sodium Chloride 250 ML IV 1230 Trazodone HCl 150 MG QPM 01/05 220 AC 01/12 PO 2035 Vancomycin HCl 1,250 MG ONCE ONE 01/12 1330 DC 01/12 Dextrose/Water 250 ML IV 01/12 1429 1705 Last 24 Hrs of Lab/Angus Results Last 24 Hrs of Labs/Mics: Laboratory Tests 01/13/18 0706: Anion Gap 13, Estimated GFR 19 L, BUN/Creatinine Ratio 7.3, CBC w Diff Pending, WBC Pending, RBC Pending, Hgb Pending, Hct Pending, MCV Pending, MCH Pending, MCHC Pending, RDW Pending, Plt Count Pending, MPV Pending, Gran % Pending, Lymphocytes % Pending, Monocytes % Pending, Eosinophils % Pending, Basophils % Pending, Absolute Granulocytes Pending, Absolute Lymphocytes Pending, Absolute Monocytes Pending, Absolute Eosinophils Pending, Absolute Basophils Pending Assessment/Plan Assessment: Mr. Dodd is a 68-year-old male with PMH of CAD S/P 6 stents, COPD on home oxygen 2 L, ESRD on HD with left arm aVF, hypertension, hyperlipidemia, PVD, chronic back pain, diabetes, thyroid cancer status post thyroidectomy, chronic BUE BLE muscle pain/weakness, CBP, anxiety/depression, presented to ER with chief complaint of generalized pain over the body, and inability to ambulate due to the right knee pain. Patient reported pain in his bilateral knees, and a mechanical for 2 weeks ago, however now the pain is mostly in his right knee, and inability to bend or move without being painful, is feeling of sharp knife stabbing pain 7-8/10, no radiations, and denies fever/chills. Patient also reported multiple chronic pulses especially on his bilateral upper and lower extremities. Due to the knee pain, patient was unable to make to dialysis today and presented to the ER for further evaluation. Patient denies any loss of consciousness/chest pain/palpitations/dyspnea/pedal edema. Patient was supposed to get angiogram for evaluation of peripheral vascular disease by Dr. Rodriguez. Dr. Rodriguez was contacted over the phone, and confirmed up appointment to be around 01/13/2018. On admission, Vitals: Afebrile BP 70s-90s/40s-50s, HR 90s, satting 99% on room air -CBC: WBC 9.5 (91% granulocytes), H/H 12.4/47.0 (anemia of chronic disease), PLT 181, -BMP: NA 144, K5.1, BUN 57, CR 5.6 (ESRD), EGFR 10, glucose 196, CA 7.4, bicarb 19 (metabolic acidosis) -Misc: ALK P 41, troponin 1 0.17, CRP 3.6, ESR 20, -CXR: 1. Slight interval increase elevation of the right hemidiaphragm. Small right effusion. Right basilar atelectasis. 2. No acute osseous abnormality appreciated in the chest or pelvis. -Knee Xray: 1. RIGHT KNEE: Chondrocalcinosis. No evidence of acute injury. 2. LEFT KNEE: Chondrocalcinosis. Minor spurring of the patella. No evidence of acute injury. -Pelvis XR: 1. Slight interval increase elevation of the right hemidiaphragm. Small right effusion. Right basilar atelectasis. 2. No acute osseous abnormality appreciated in the chest or pelvis. -BLE V-doppler: Negative for DVT -EKG: Pending. -Interventions in ER: IVF 2.5 L bolus, Zofran, Tylenol, Epogen 4000 units IV Tuesday scheduled. Problem list #Elevated Trop, 2/2 renal insufficiency: multiple past admissions with elevated trops, with underlying hx of CAD. 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 borderline hypotensive w/ SBP improved to 100s, asymptomatic. Low threshold for ICU transfer. - In dialysis, stable without complaint. - Wound culture had S.Aureus growth, could be MRSA due to patient's long standing history in healthcare setting (dialysis, STR), however could be also just colonization. No clinical signs of infection so far. - DC Unasyn 01/12 - Pending biopsy result. - Derm over phone recommended no active intervention for BLE spotty ulcers, agreed that the R medial thigh lesion likely calciphylaxis, and recommended outpatient derm f/u. -Discussed with IR radiologist Dr. Harris on phone regarding patient's ascites, that patient had no clear clinical indication for proceeding with paracentesis, and the amount of ascites was too small for U/S guided. A bowel prep and CT- guided procedure would be needed, which would expose patient to unnecessary risks in return of minimal clinical benefit. Patient's ascites without leukocytosis/fever/active abdominal symptoms was likely a result of volume overload. Would hold off IR paracentesis for now. hypotension. patient's clinical condition and STR placement, this may be delayed. I had discussed with Dr. Rodriguez over the phone and will keep him updated on progress. -Urology consult recommended serial images f.u for right renal cyst in outpatient. currently no inhospital intervention. DVT prophylaxis ALPS Dialysis diet Full Code Problem List: 1. ESRD (end stage renal disease) Pain Ratin Pain Location: R knee Pain Goal: Pain 7 or less Pain Plan: see AP Tomorrow's Labs & Rationales: CBC/BEP Vale Diehl 01/13/18 1046: Attending MD Review Statement Attending Statement Attending MD Statement: examined this patient, discuss w/resident/PA/[employer]Y WORKER, agreed w/resident/PA/[employer] SUR[employer]Y WORKER, discussed with family, reviewed EMR data (avail), discussed with nursing, discussed with case mgmt, reviewed images, amended to note Attending Assessment/Plan: Patient seen/examined bedside. Patient denies any new complaints. He is ablt to move his lower extrmeity 4/5 strength today with marked improvement. His pain is well controlled. Patient is on iv abx as per ID. HD and iv thiosulfate as per nephrology. Needs to follow up vascular surgery for outpatient angiogram. PT ongoing. Discharge planning to STR. Anticipate dc soon.
[2018-01-13 08:03] LABS: ABSOLUTE BASOPHIL COUNT 0 /CUMM (0.0-0.2); ABSOLUTE EOSINOPHIL COUNT 0 /CUMM (0.0-0.7); ABSOLUTE GRANULOCYTE CT 6.4 /CUMM (1.4-6.5); ABSOLUTE LYMPH COUNT 0.5 /CUMM (1.2-3.4); ABSOLUTE MONOCYTE COUNT 0.4 /CUMM (0.10-0.60); BASOPHIL % 0.4 % (0.0-2.0); EOSINOPHIL % 0 % (0-5); HEMATOCRIT 37.9 % (42-52); MEAN CORPUSCULAR HGB 30.1 PG (27.0-31.0); MEAN CORPUSCULAR HGB CONC 32.6 G/DL (33.0-37.0); MEAN CORPUSCULAR VOLUME 92.1 FL (80.0-94.0); MEAN PLATELET VOLUME 8.4 FL (7.4-10.4); PLATELET COUNT 171 /CUMM (130-400); RBC DISTRIBUTION WIDTH 20.1 % (11.5-14.5); RED BLOOD CELL CT 4.11 /CUMM (4.70-6.10); WHITE BLOOD CELL COUNT 7.4 /CUMM (4.8-10.8)
[2018-01-13 09:26] LABS: GRANULOCYTE % 86.7 % (42.2-75.2)
--- NOTE | 2018-01-13 10:35 | PN- Infect Dx ---
Subjective Subjective: Afebrile. He feels improved with decreased pain on movement of the right leg Objective Last 24 Hrs of Vital Signs/I&O Vital Signs Date Time Temp Pulse Resp B/P B/P Pulse O2 O2 Flow FiO2 Mean Ox Delivery Rate 01/13 0632 97.6 91 20 94/00 97 Nasal Cannula 01/13 0000 Nasal 1.0L Cannula 01/12 2350 97.6 97 12 93 Nasal 1.0L Cannula 01/12 1600 Nasal 2.0L Cannula 01/12 1431 97.4 94 20 86/60 92 Nasal 1.0L Cannula Intake & Output 01/13 1600 01/13 0800 01/13 0000 Intake Total 30 300 Output Total Balance 30 300 Intake, Oral 30 300 Patient 192 lb Weight Weight Bed scale Measurement Method Physical Exam Other Physical Findings: He appears more comfortable in no acute distress Lungs are clear Heart regular rhythm with no murmur Extremities decreased pain with movement of the right thigh, though he still has significant tenderness over the necrotic medial thigh lesion; no change in the surrounding erythema Results Last 24 Hours of Lab Results: Laboratory Tests 01/13 706 Chemistry Sodium (137 - 145 mmol/L) 134 L Potassium (3.5 - 5.1 mmol/L) 4.3 Chloride (98 - 107 mmol/L) 96 L Carbon Dioxide (22 - 30 mmol/L) 24 Anion Gap (5 - 16) 13 BUN (9 - 20 mg/dL) 24 H Creatinine (0.7 - 1.2 mg/dL) 3.3 H Estimated GFR (>60 ml/min) 19 L BUN/Creatinine Ratio (7 - 25 %) 7.3 Hematology CBC w Diff NO MAN DIFF REQ WBC (4.8 - 10.8 /CUMM) 7.4 RBC (4.70 - 6.10 /CUMM) 4.11 L Hgb (14.0 - 18.0 G/DL) 12.4 L Hct (42 - 52 %) 37.9 L MCV (80.0 - 94.0 FL) 92.1 MCH (27.0 - 31.0 PG) 30.1 MCHC (33.0 - 37.0 G/DL) 32.6 L RDW (11.5 - 14.5 %) 20.1 H Plt Count (130 - 400 /CUMM) 171 MPV (7.4 - 10.4 FL) 8.4 Gran % (42.2 - 75.2 %) 86.7 H Lymphocytes % (20.5 - 51.1 %) 7.2 L Monocytes % (1.7 - 9.3 %) 5.7 Eosinophils % (0 - 5 %) 0 Basophils % (0.0 - 2.0 %) 0.4 Absolute Granulocytes (1.4 - 6.5 /CUMM) 6.4 Absolute Lymphocytes (1.2 - 3.4 /CUMM) 0.5 L Absolute Monocytes (0.10 - 0.60 /CUMM) 0.4 Absolute Eosinophils (0.0 - 0.7 /CUMM) 0 Absolute Basophils (0.0 - 0.2 /CUMM) 0 Last 24 Hours of Angus Results: Right thigh wound culture January 10 positive for Staph aureus sensitive to Oxacillin Assessment/Plan ID Impression: Appears improved, with decreased pain and tenderness over the right medial thigh , possibly secondary to the thiosulfate, which was begun yesterday, and which is to be continued after each dialysis for possible calciphylaxis, status post a skin biopsy 3 days ago, with the preliminary report not suggestive of calciphylaxis but with the official report (from [place]) pending. He remains afebrile with a normal white blood cell count status post one dose of Vancomycin yesterday, now Day 6 of treatment for possible secondary cellulitis, with the culture of the wound growing a sensitive Staph aureus. Suggestion: 1. Follow-up final biopsy results 2. Further management of possible calciphylaxis per Renal 3. Eventual lower extremity angiogram per Vascular Surgery 4. Would follow off further antibiotics at this time
[2018-01-13] MEDS ORDERED: GABAPENTIN100 M2 PO (13:37)
--- NOTE | 2018-01-13 14:27 | PN- Cardiology ---
Subjective Subjective: Clinically stable. No cardiac changes. Some improvement in right lower extremity discomfort Objective Vital Signs and I&Os Vital Signs Date Time Temp Pulse Resp B/P B/P Pulse O2 O2 Flow FiO2 Mean Ox Delivery Rate 01/13 0632 97.6 91 20 94/00 97 Nasal Cannula 01/13 0000 Nasal 1.0L Cannula 01/12 2350 97.6 97 12 93 Nasal 1.0L Cannula 01/12 1600 Nasal 2.0L Cannula 01/12 1431 97.4 94 20 86/60 92 Nasal 1.0L Cannula Intake & Output 01/13 0801/13 0000 01/12 1600 01/12 0801/12 0000 Intake Total 120 30 300 480 360 480 Output Total 3500 Balance 120 30 300 -3020 360 480 Intake, Oral 120 30 300 480 360 480 Number 1 1 1 Bowel Movements Output, 3500 Dialysate Patient 192 lb 202 lb Weight Weight Bed scale Measurement Method Physical Exam: General Appearance Alert, Oriented X3, Cooperative, Mild Distress Skin Healing ulcers on BUE/BLE with ecchymosis HEENT PERRLA, healing wound on left eyebrow from fall 2 weeks ago. Neck Supple, No JVD, carotids normal bilaterally Cardiovascular Regular, S1, S2, 1 to 2/6 systolic murmur Lungs Clear to Auscultation and percussion bilaterally Abdomen Normal Bowel Sounds, Soft, mild tenderness on palpation in mid ab Neurological Normal/nonfocal Extremities BLE healing ulcers on cardenas, and heals, and feet BL knees cool to touch, however R knee very tender to touch, without signs of swelling, limited ROM, no elevation of skin temp, bony walden available. Current Medications: Current Medications Sig/Julissa Start time Last Medication Dose Route Stop Time Status Admin Albuterol Sulfate 3 ML TID 01/07 2200 AC INH Alprazolam 0.5 MG BID PRN 01/05 1700 DC 01/10 PO 01/12 1659 2118 Aspirin Buffered 81 MG DAILY 01/06 1000 AC 01/13 PO 1030 Calcium Carbonate 500 MG ONCE ONE 01/13 1145 DC 01/13 PO 01/13 1146 1241 Clopidogrel Bisulfate 75 MG DAILY 01/10 1745 AC 01/13 PO 1029 Epoetin [place] 4,000 UNIT TuThSa PRN 01/05 1445 AC IV Ergocalciferol 50,000 IU QTUES 01/10 1530 AC 01/10 PO 1631 Folic Acid 1 MG DAILY 01/06 1000 AC 01/13 PO 1030 Gabapentin 100 MG DAILY 01/11 1000 AC 01/13 PO 1029 Heparin Sodium 5,000 UNIT Q8 01/05 2200 AC 01/13 (Porcine) SC 1409 Hydrocodone Bitart/ 1 TAB Q8P PRN 01/13 0400 AC 01/13 Acetaminophen PO 0420 Hydrocodone Bitart/ 1 TAB .STK-MED ONE 01/13 2032 DC Acetaminophen PO 01/12 2033 Hydrocodone Bitart/ 1 TAB Q8P PRN 01/05 1930 DC 01/11 Acetaminophen PO 193 Insulin Aspart 0 TIDAC 01/08 1200 AC 01/12 SC 1712 Ipratropium [place] 2.5 ML TID 01/07 2200 AC INH Levothyroxine Sodium 0.2 MG DAILY AC 01/06 0700 AC 01/13 PO 0701 Metoclopramide HCl 10 MG Q6P PRN 01/06 0830 AC 01/13 IV 1205 Pantoprazole Sodium 40 MG DAILY 01/06 1000 AC 01/13 IV 1030 Polyethylene Glycol 17 GM DAILY 01/08 1416 AC 01/13 PO 1030 Ramelteon 8 MG AT BEDTIME 01/05 2200 AC 01/12 PO 2038 Senna 187 MG AT BEDTIME 01/08 220 AC 01/12 PO 203 Sertraline HCl 150 MG DAILY 01/06 1000 AC 01/13 PO 1029 Sevelamer Carbonate 1,600 MG TIDAC 01/06 1200 AC 01/13 PO 1029 Sodium Chloride 2 SPRAY Q4P PRN 01/10 1930 AC 01/10 DALIA 2113 Sodium Thiosulfate 25 GM TuThSa@1000 01/12 1000 AC 01/12 Sodium Chloride 250 ML IV 1230 Trazodone HCl 150 MG QPM 01/05 220 AC 01/12 PO 2035 Vancomycin HCl 1,250 MG ONCE ONE 01/12 1330 DC 01/12 Dextrose/Water 250 ML IV 01/12 1429 1705 Results Last 48 Hrs of Labs/Mics: Laboratory Tests 01/13/18 0706: Anion Gap 13, Estimated GFR 19 L, BUN/Creatinine Ratio 7.3, CBC w Diff NO MAN DIFF REQ, RBC 4.11 L, MCV 92.1, MCH 30.1, MCHC 32.6 L, RDW 20.1 H, MPV 8.4, Gran % 86.7 H, Lymphocytes % 7.2 L, Monocytes % 5.7, Eosinophils % 0, Basophils % 0.4, Absolute Granulocytes 6.4, Absolute Lymphocytes 0.5 L, Absolute Monocytes 0.4, Absolute Eosinophils 0, Absolute Basophils 0 01/12/18 0710: Anion Gap 15, Estimated GFR 13 L, BUN/Creatinine Ratio 7.8, Calcium 7.0 L, Phosphorus 3.8, Magnesium 2.1, Albumin 2.7 L, 25-OH Vitamin D Total 11.8 L, PTH Intact 91.8 H, CBC w Diff NO MAN DIFF REQ, RBC 4.07 L, MCV 91.2, MCH 29.7, MCHC 32.6 L, RDW 18.9 H, MPV 8.7, Gran % 83.2 H, Lymphocytes % 9.9 L, Monocytes % 6.5, Eosinophils % 0.4, Basophils % 0, Absolute Granulocytes 6.4, Absolute Lymphocytes 0.8 L, Absolute Monocytes 0.5, Absolute Eosinophils 0, Absolute Basophils 0 Assessment/Plan Assessment/Plan Assessment: 1. 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 2. Generalized pain 3. Chronic issues with lower extremity arterial and venous insufficiency/PAD/ PVI 4. End-stage renal disease on hemodialysis 5. Elevated bilirubin 6. cardiomyopathy of coronary artery disease with worsening left ventricular systolic function as noted on echocardiogram Recommendations: -Continue as presently per the medical team -Patient has any signs of any cardiac symptoms please notify me. -Otherwise, we will sign off the case for now and follow-up on a when necessary basis. Continue telemetry? No
[2018-01-13] MEDS ORDERED: VITAMIN D250000 UNIT PO (14:28)
[2018-01-13 14:41] VITALS: BP 104/59
--- NOTE | 2018-01-13 17:04 | PN- Nephrology ---
Assessment/Plan Nephrology Assessment: 1. ESRD 2. Cellulitis right lower extremity medial to knee-now off antibiotics; ? calciphylaxis; preliminary biopsy results showed no calcifications; biopsy culture growing staph aureus 3. Hypotension - chronic with exacerbations 4. 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 acute 5. Ascites which appears to be new 6. Right upper pole renal mass - to be followed as an outpatient Suggestion: 1. If he has no further nausea/vomiting can consider discharge after dialysis tomorrow; I will arrange for thiosulfate dosing at outpatient dialysis 2. Would discontinue Lasix 3. Await final biopsy results but at this point I would commit to at least several weeks of thiosulfate therapy while monitoring progression or hopefully resolution of his thigh lesion 4. Needs outpatient follow-up with vascular surgery and podiatry Subjective Subjective: Patient had some nausea and vomiting earlier today but seems to be more comfortable at this time. He remains afebrile with normal WBC and states that his leg feels better. He has no other complaints. Objective Vital Signs and I&Os Vital Signs Date Time Temp Pulse Resp B/P B/P Pulse O2 O2 Flow FiO2 Mean Ox Delivery Rate 01/13 1507 97.7 01/13 1441 91 20 104/59 93 Nasal 1.0L Cannula 01/13 0632 97.6 91 20 94/00 97 Nasal Cannula 01/13 0000 Nasal 1.0L Cannula 01/12 2350 97.6 97 12 93 Nasal 1.0L Cannula Intake & Output 01/13 1600 01/13 0400 01/12 1600 01/12 0400 01/11 1600 01/11 0400 Intake Total 150 300 840 480 720 560 Output Total 3500 1 Balance 150 300 -2660 480 719 560 Intake, IV 120 110 Intake, Oral 150 300 840 480 600 450 Number 2 1 1 1 Bowel Movements Output, 3500 Dialysate Output, Stool 1 Patient 192 lb 202 lb 209 lb Weight Weight Bed scale Measurement Method Physical Exam: General: Well-developed white male, in no acute distress Skin: Generalized skin rash with areas of macules, papules, excoriations, as well as discoloration in pretibial regions and feet; no jaundice HEENT: Conjunctivae pink, sclerae anicteric, mucous membranes moist Chest: Clear with diminished BS at bases Heart: Regular rate and rhythm without S3 or rub Abdomen: Distended but soft without palpable masses or organomegaly Extremities: Areas of dry gangrene and necrosis in multiple toes bilaterally; 1+ edema; on the medial aspect of the right knee there is tender erythema and induration with a central area of purple/ecchymotic lesions also quite tender; the left upper arm AVF is patent Neuro: Awake, alert, no asterixis or myoclonus Results Pertinent Lab Results: Laboratory Tests 01/13 01/12 0706 0710 Chemistry Sodium (137 - 145 mmol/L) 134 L 131 L Potassium (3.5 - 5.1 mmol/L) 4.3 4.8 Chloride (98 - 107 mmol/L) 96 L 95 L Carbon Dioxide (22 - 30 mmol/L) 24 21 L Anion Gap (5 - 16) 13 15 BUN (9 - 20 mg/dL) 24 H 36 H Creatinine (0.7 - 1.2 mg/dL) 3.3 H 4.6 H Estimated GFR (>60 ml/min) 19 L 13 L BUN/Creatinine Ratio (7 - 25 %) 7.3 7.8 Calcium (8.4 - 10.2 mg/dL) 7.0 L Phosphorus (2.5 - 4.5 mg/dL) 3.8 Magnesium (1.6 - 2.3 mg/dL) 2.1 Albumin (3.5 - 5.0 g/dL) 2.7 L 25-OH Vitamin D Total (30 - 100 ng/ml) 11.8 L PTH Intact (18.4 - 80.1 pg/ML) 91.8 H Hematology CBC w Diff NO MAN DIFF REQ NO MAN DIFF REQ WBC (4.8 - 10.8 /CUMM) 7.4 7.7 RBC (4.70 - 6.10 /CUMM) 4.11 L 4.07 L Hgb (14.0 - 18.0 G/DL) 12.4 L 12.1 L Hct (42 - 52 %) 37.9 L 37.1 L MCV (80.0 - 94.0 FL) 92.1 91.2 MCH (27.0 - 31.0 PG) 30.1 29.7 MCHC (33.0 - 37.0 G/DL) 32.6 L 32.6 L RDW (11.5 - 14.5 %) 20.1 H 18.9 H Plt Count (130 - 400 /CUMM) 171 178 MPV (7.4 - 10.4 FL) 8.4 8.7 Gran % (42.2 - 75.2 %) 86.7 H 83.2 H Lymphocytes % (20.5 - 51.1 %) 7.2 L 9.9 L Monocytes % (1.7 - 9.3 %) 5.7 6.5 Eosinophils % (0 - 5 %) 0 0.4 Basophils % (0.0 - 2.0 %) 0.4 0 Absolute Granulocytes (1.4 - 6.5 /CUMM) 6.4 6.4 Absolute Lymphocytes (1.2 - 3.4 /CUMM) 0.5 L 0.8 L Absolute Monocytes (0.10 - 0.60 /CUMM) 0.4 0.5 Absolute Eosinophils (0.0 - 0.7 /CUMM) 0 0 Absolute Basophils (0.0 - 0.2 /CUMM) 0 0 04/04 0640 Chemistry Sodium (137 - 145 mmol/L) 134 L Potassium (3.5 - 5.1 mmol/L) 4.3 Chloride (98 - 107 mmol/L) 96 L Carbon Dioxide (22 - 30 mmol/L) 24 Anion Gap (5 - 16) 14 BUN (9 - 20 mg/dL) 29 H Creatinine (0.7 - 1.2 mg/dL) 3.8 H Estimated GFR (>60 ml/min) 16 L BUN/Creatinine Ratio (7 - 25 %) 7.6 Calcium (8.4 - 10.2 mg/dL) 7.1 L Phosphorus (2.5 - 4.5 mg/dL) 3.5 Hematology CBC w Diff NO MAN DIFF REQ WBC (4.8 - 10.8 /CUMM) 7.3 RBC (4.70 - 6.10 /CUMM) 3.92 L Hgb (14.0 - 18.0 G/DL) 11.9 L Hct (42 - 52 %) 36.2 L MCV (80.0 - 94.0 FL) 92.4 MCH (27.0 - 31.0 PG) 30.4 MCHC (33.0 - 37.0 G/DL) 32.8 L RDW (11.5 - 14.5 %) 19.6 H Plt Count (130 - 400 /CUMM) 166 MPV (7.4 - 10.4 FL) 8.2 Gran % (42.2 - 75.2 %) 84.9 H Lymphocytes % (20.5 - 51.1 %) 7.0 L Monocytes % (1.7 - 9.3 %) 7.8 Eosinophils % (0 - 5 %) 0.2 Basophils % (0.0 - 2.0 %) 0.1 Absolute Granulocytes (1.4 - 6.5 /CUMM) 6.2 Absolute Lymphocytes (1.2 - 3.4 /CUMM) 0.5 L Absolute Monocytes (0.10 - 0.60 /CUMM) 0.6 Absolute Eosinophils (0.0 - 0.7 /CUMM) 0 Absolute Basophils (0.0 - 0.2 /CUMM) 0
[2018-01-13 22:46] VITALS: BP 134/107
[2018-01-14 06:19] VITALS: BP 128/80
[2018-01-14 09:05] LABS: ABSOLUTE BASOPHIL COUNT 0 /CUMM (0.0-0.2); ABSOLUTE EOSINOPHIL COUNT 0 /CUMM (0.0-0.7); ABSOLUTE GRANULOCYTE CT 7.2 /CUMM (1.4-6.5); ABSOLUTE MONOCYTE COUNT 0.6 /CUMM (0.10-0.60); BASOPHIL % 0.3 % (0.0-2.0); EOSINOPHIL % 0.2 % (0-5); GRANULOCYTE % 81.1 % (42.2-75.2); HEMATOCRIT 37.5 % (42-52); MEAN PLATELET VOLUME 8.3 FL (7.4-10.4); PLATELET COUNT 206 /CUMM (130-400); RBC DISTRIBUTION WIDTH 19.5 % (11.5-14.5); RED BLOOD CELL CT 4.13 /CUMM (4.70-6.10); WHITE BLOOD CELL COUNT 8.8 /CUMM (4.8-10.8)
--- NOTE | 2018-01-14 11:59 | PN- Att Addend ---
Attending Addendum Attending Brief Note Patient went for dailysis. He is off telemetry. Vitals stable. PE no acute changes. 68 o/m with ESRD on HD, severe peripheral vascular disease, chronic hypotensive epsiodes and asymptomatic with no dizziness came with right lower extremity pain , redness and inability to move his right lower extremity on admission as per patient. Right lower extremity cellultiis being treated with abx, ID consulted and plan for abx as per ID. Wound culture grew MRSA and abx switched to vancomycin completed treatment. Surgery did biopsy for possible calciphylaxis lesion, f/u final pathology prelim is negative. Nephrology on board and dialysis plan as per nephrology. Plan to treat with iv thiosulphate as per nephrology during HD sessions. Informed dermatology for erythema and swelling on lower extrmeity/rash and follow outpatient. Patient received pain meds for pain control. PVD to be followed by vascular surgery. Plan for angiogram as per [facility] surgery. (f/u Dr Rodriguez) PT with assist of two. Needs STR placement with o/p dialysis arrangement and iv thiosulfate as per renal. Discharge to STR today. Admission Lab Results I reviewed the following labs: Laboratory Tests 01/14 0751 Chemistry Sodium (137 - 145 mmol/L) 131 L Potassium (3.5 - 5.1 mmol/L) 4.8 Chloride (98 - 107 mmol/L) 93 L Carbon Dioxide (22 - 30 mmol/L) 23 Anion Gap (5 - 16) 16 BUN (9 - 20 mg/dL) 31 H Creatinine (0.7 - 1.2 mg/dL) 4.3 H Estimated GFR (>60 ml/min) 14 L BUN/Creatinine Ratio (7 - 25 %) 7.2 Hematology CBC w Diff NO MAN DIFF REQ WBC (4.8 - 10.8 /CUMM) 8.8 RBC (4.70 - 6.10 /CUMM) 4.13 L Hgb (14.0 - 18.0 G/DL) 12.4 L Hct (42 - 52 %) 37.5 L MCV (80.0 - 94.0 FL) 91.0 MCH (27.0 - 31.0 PG) 30.0 MCHC (33.0 - 37.0 G/DL) 33.0 RDW (11.5 - 14.5 %) 19.5 H Plt Count (130 - 400 /CUMM) 206 MPV (7.4 - 10.4 FL) 8.3 Gran % (42.2 - 75.2 %) 81.1 H Lymphocytes % (20.5 - 51.1 %) 11.2 L Monocytes % (1.7 - 9.3 %) 7.2 Eosinophils % (0 - 5 %) 0.2 Basophils % (0.0 - 2.0 %) 0.3 Absolute Granulocytes (1.4 - 6.5 /CUMM) 7.2 H Absolute Lymphocytes (1.2 - 3.4 /CUMM) 1.0 L Absolute Monocytes (0.10 - 0.60 /CUMM) 0.6 Absolute Eosinophils (0.0 - 0.7 /CUMM) 0 Absolute Basophils (0.0 - 0.2 /CUMM) 0 Admission Meds I reviewed the following Meds: Current Medications Sig/Julissa Start time Last Medication Dose Stop Time Status Admin Albuterol Sulfate 3 ML TID 01/07 2200 AC (Proventil) Aspirin Buffered 81 MG DAILY 01/06 1000 AC 01/13 (Ecotrin) 1030 Clopidogrel Bisulfate 75 MG DAILY 01/10 1745 AC 01/13 (Plavix) 1029 Epoetin [place] 4,000 UNIT TuThSa PRN 01/05 1445 AC (Epogen Inj 4000 (DIALYSIS PATIENT)) Ergocalciferol 50,000 IU QTUES 01/10 1530 AC 01/10 (Drisdol) 1631 Folic Acid 1 MG DAILY 01/06 1000 AC 01/13 (Folic Acid) 1030 Gabapentin 100 MG DAILY 01/11 1000 AC 01/13 (Neurontin) 1029 Heparin Sodium 5,000 UNIT Q8 01/05 2200 AC 01/14 (Porcine) 0632 Hydrocodone Bitart/ 1 TAB Q8P PRN 01/13 0400 AC 01/14 Acetaminophen 0630 (Vicodin) Insulin Aspart 0 TIDAC 01/08 1200 AC 01/13 (NovoLOG) 1650 Ipratropium [place] 2.5 ML TID 01/07 2200 AC (Atrovent) Levothyroxine Sodium 0.2 MG DAILY AC 01/06 0700 AC 01/13 (Synthroid) 0701 Metoclopramide HCl 10 MG Q6P PRN 01/06 0830 AC 01/13 (Reglan) 1205 Pantoprazole Sodium 40 MG DAILY 01/06 1000 AC 01/13 (Protonix) 1030 Polyethylene Glycol 17 GM DAILY 01/08 1416 AC 01/13 (Miralax) 1030 Ramelteon 8 MG AT BEDTIME 01/05 2200 AC 01/13 (Rozerem) 221 Senna 187 MG AT BEDTIME 01/08 2200 AC 01/13 (Senokot) 221 Sertraline HCl 150 MG DAILY 01/06 1000 AC 01/13 (Zoloft) 1029 Sevelamer Carbonate 1,600 MG TIDAC 01/06 1200 AC 01/13 (Renvela) 1651 Sodium Chloride 2 SPRAY Q4P PRN 01/10 1930 AC 01/10 (Nasal) 2113 Sodium Thiosulfate 25 GM TuThSa@1000 01/12 1000 AC 01/12 (Sodium Thiosulfate) 1230 Sodium Chloride 250 ML (Normal Saline 0.9%) Trazodone HCl 150 MG QPM 01/05 2200 AC 01/13 (Desyrel) 2210
--- NOTE | 2018-01-14 12:33 | PN- Nephrology ---
Assessment/Plan Nephrology Assessment: 1. ESRD. Just completed dialysis 2. Cellulitis right lower extremity medial to knee-now off antibiotics; ? calciphylaxis; preliminary biopsy results showed no calcifications; biopsy culture growing staph aureus 3. Hypotension - chronic with exacerbations 4. Right upper pole renal mass - to be followed as an outpatient Suggestion: 1. plan's for discharge noted Subjective Subjective: Patient seen at the end of dialysis. He could not tolerate 3 L removal. Objective Vital Signs and I&Os Vital Signs Date Time Temp Pulse Resp B/P B/P Pulse O2 O2 Flow FiO2 Mean Ox Delivery Rate 01/14 619 98.2 94 18 128/80 95 Nasal Cannula 01/14 0000 98 Room Air 01/13 2246 97.9 95 20 134/107 98 01/13 1600 95 Nasal 1.0L Cannula 01/13 1507 97.7 01/13 1441 91 20 104/59 93 Nasal 1.0L Cannula Intake & Output 01/14 1600 01/14 0400 01/13 1600 01/13 0400 01/12 1600 01/12 0400 Intake Total 100 210 150 300 840 480 Output Total 0 3500 Balance 100 210 150 300 -2660 480 Intake, IV 0 10 Intake, Oral 100 200 150 300 840 480 Number 1 2 1 Bowel Movements Output, 3500 Dialysate Output, Urine 0 Patient 192 lb 191 lb 192 lb 202 lb Weight Weight Bed scale Bed scale Bed scale Measurement Method Physical Exam: General: Well-developed white male, in no acute distress Skin: Generalized skin rash with areas of macules, papules, excoriations, as well as discoloration in pretibial regions and feet; no jaundice Chest: Clear anteriorly Heart: Regular rate and rhythm without S3 or rub Abdomen: Distended but soft without palpable masses or organomegaly Extremities: No edema Neuro: Awake, alert, cooperative Current Medications: Current Medications Sig/Julissa Start time Last Medication Dose Route Stop Time Status Admin Albuterol Sulfate 3 ML TID 01/07 2200 AC INH Aspirin Buffered 81 MG DAILY 01/06 1000 AC 01/13 PO 1030 Calcium Carbonate 500 MG ONCE ONE 01/13 2245 DC 01/13 PO 01/13 2246 2348 Clopidogrel Bisulfate 75 MG DAILY 01/10 1745 AC 01/13 PO 1029 Epoetin [place] 4,000 UNIT TuThSa PRN 01/05 1445 AC IV Ergocalciferol 50,000 IU QTUES 01/10 1530 AC 01/10 PO 1631 Folic Acid 1 MG DAILY 01/06 1000 AC 01/13 PO 1030 Gabapentin 100 MG DAILY 01/11 1000 AC 01/13 PO 1029 Heparin Sodium 5,000 UNIT Q8 01/05 2200 AC 01/14 (Porcine) SC 0632 Hydrocodone Bitart/ 1 TAB Q8P PRN 01/13 0400 AC 01/14 Acetaminophen PO 0630 Insulin Aspart 0 TIDAC 01/08 1200 AC 01/13 SC 1650 Ipratropium [place] 2.5 ML TID 01/07 2200 AC INH Levothyroxine Sodium 0.2 MG DAILY AC 01/06 0700 AC 01/13 PO 0701 Metoclopramide HCl 10 MG Q6P PRN 01/06 0830 AC 01/13 IV 1205 Pantoprazole Sodium 40 MG DAILY 01/06 1000 AC 01/13 IV 1030 Polyethylene Glycol 17 GM DAILY 01/08 1416 AC 01/13 PO 1030 Ramelteon 8 MG AT BEDTIME 01/05 2200 AC 01/13 PO 2211 Senna 187 MG AT BEDTIME 01/08 2200 AC 01/13 PO 2211 Sertraline HCl 150 MG DAILY 01/06 1000 AC 01/13 PO 1029 Sevelamer Carbonate 1,600 MG TIDAC 01/06 1200 AC 01/13 PO 1651 Sodium Chloride 2 SPRAY Q4P PRN 01/10 1930 AC 01/10 DALIA 2113 Sodium Thiosulfate 25 GM TuThSa@1000 01/12 1000 AC 01/12 Sodium Chloride 250 ML IV 1230 Trazodone HCl 150 MG QPM 01/05 2200 AC 01/13 PO 2211 Results Pertinent Lab Results: Laboratory Tests 01/14 01/13 0751 0706 Chemistry Sodium (137 - 145 mmol/L) 131 L 134 L Potassium (3.5 - 5.1 mmol/L) 4.8 4.3 Chloride (98 - 107 mmol/L) 93 L 96 L Carbon Dioxide (22 - 30 mmol/L) 23 24 Anion Gap (5 - 16) 16 13 BUN (9 - 20 mg/dL) 31 H 24 H Creatinine (0.7 - 1.2 mg/dL) 4.3 H 3.3 H Estimated GFR (>60 ml/min) 14 L 19 L BUN/Creatinine Ratio (7 - 25 %) 7.2 7.3 Hematology CBC w Diff NO MAN DIFF REQ NO MAN DIFF REQ WBC (4.8 - 10.8 /CUMM) 8.8 7.4 RBC (4.70 - 6.10 /CUMM) 4.13 L 4.11 L Hgb (14.0 - 18.0 G/DL) 12.4 L 12.4 L Hct (42 - 52 %) 37.5 L 37.9 L MCV (80.0 - 94.0 FL) 91.0 92.1 MCH (27.0 - 31.0 PG) 30.0 30.1 MCHC (33.0 - 37.0 G/DL) 33.0 32.6 L RDW (11.5 - 14.5 %) 19.5 H 20.1 H Plt Count (130 - 400 /CUMM) 206 171 MPV (7.4 - 10.4 FL) 8.3 8.4 Gran % (42.2 - 75.2 %) 81.1 H 86.7 H Lymphocytes % (20.5 - 51.1 %) 11.2 L 7.2 L Monocytes % (1.7 - 9.3 %) 7.2 5.7 Eosinophils % (0 - 5 %) 0.2 0 Basophils % (0.0 - 2.0 %) 0.3 0.4 Absolute Granulocytes (1.4 - 6.5 /CUMM) 7.2 H 6.4 Absolute Lymphocytes (1.2 - 3.4 /CUMM) 1.0 L 0.5 L Absolute Monocytes (0.10 - 0.60 /CUMM) 0.6 0.4 Absolute Eosinophils (0.0 - 0.7 /CUMM) 0 0 Absolute Basophils (0.0 - 0.2 /CUMM) 0 0 04/05 0710 Chemistry Sodium (137 - 145 mmol/L) 131 L Potassium (3.5 - 5.1 mmol/L) 4.8 Chloride (98 - 107 mmol/L) 95 L Carbon Dioxide (22 - 30 mmol/L) 21 L Anion Gap (5 - 16) 15 BUN (9 - 20 mg/dL) 36 H Creatinine (0.7 - 1.2 mg/dL) 4.6 H Estimated GFR (>60 ml/min) 13 L BUN/Creatinine Ratio (7 - 25 %) 7.8 Calcium (8.4 - 10.2 mg/dL) 7.0 L Phosphorus (2.5 - 4.5 mg/dL) 3.8 Magnesium (1.6 - 2.3 mg/dL) 2.1 Albumin (3.5 - 5.0 g/dL) 2.7 L 25-OH Vitamin D Total (30 - 100 ng/ml) 11.8 L PTH Intact (18.4 - 80.1 pg/ML) 91.8 H Hematology CBC w Diff NO MAN DIFF REQ WBC (4.8 - 10.8 /CUMM) 7.7 RBC (4.70 - 6.10 /CUMM) 4.07 L Hgb (14.0 - 18.0 G/DL) 12.1 L Hct (42 - 52 %) 37.1 L MCV (80.0 - 94.0 FL) 91.2 MCH (27.0 - 31.0 PG) 29.7 MCHC (33.0 - 37.0 G/DL) 32.6 L RDW (11.5 - 14.5 %) 18.9 H Plt Count (130 - 400 /CUMM) 178 MPV (7.4 - 10.4 FL) 8.7 Gran % (42.2 - 75.2 %) 83.2 H Lymphocytes % (20.5 - 51.1 %) 9.9 L Monocytes % (1.7 - 9.3 %) 6.5 Eosinophils % (0 - 5 %) 0.4 Basophils % (0.0 - 2.0 %) 0 Absolute Granulocytes (1.4 - 6.5 /CUMM) 6.4 Absolute Lymphocytes (1.2 - 3.4 /CUMM) 0.8 L Absolute Monocytes (0.10 - 0.60 /CUMM) 0.5 Absolute Eosinophils (0.0 - 0.7 /CUMM) 0 Absolute Basophils (0.0 - 0.2 /CUMM) 0
[2018-01-14 14:09] VITALS: BP 100/60
[2018-01-14 14:15] VITALS: BP 100/60
[2018-01-14] MEDS ORDERED: CALCIUM ACETAT667 M3 PO (14:32)
[2018-01-14] MEDS ORDERED: LASIX80 M1 PO (14:33)
[2018-01-14] MEDS ORDERED: METOPROLOL SUCC25 M1 PO (14:34)
== END 2018-01-14 15:42 | DRG 602 ==
LOC: ERH 09:33 → 1NO 14:15 → ERHI 14:15 → ENRESERV 15:00 → 1NO 15:24 → ENTRNSPT 01-10 14:44 → EDTRNSPT 01-10 14:49 → EDTRNSPTSTS 01-10 14:49 → CMPTRNSPT 01-10 15:06 → 1NO 01-13 11:38 → ENTRNSPT 01-13 20:35 → EDTRNSPT 01-13 21:05 → EDTRNSPTSTS 01-13 21:05 → 2NA 01-13 21:26 → CMPTRNSPT 01-13 21:28 → ENPENDDIS 01-14 09:58 → 2NA 01-14 15:42
PROVIDERS: Internal Medicine Nephrology; Physician Assistant Medical
PROC: 5A1D70Z Performance of Urinary Filtration, Intermittent, Less than 6 Hours Per Day (ICD-10-PCS; 2018-01-05)
PROC: 0JBL0ZX Excision of Right Upper Leg Subcutaneous Tissue and Fascia, Open Approach, Diagnostic (ICD-10-PCS; principal; 2018-01-10)
PROC: 0J9L3ZX Drainage of Right Upper Leg Subcutaneous Tissue and Fascia, Percutaneous Approach, Diagnostic (ICD-10-PCS; principal; 2018-01-10)
DX: L03.115 Cellulitis of right lower limb (principal); N18.6 End stage renal disease; I21.A1 Myocardial infarction type 2; I13.2 Hypertensive heart and chronic kidney disease with heart failure and with stage 5 chronic kidney disease, or end stage renal disease; J96.11 Chronic respiratory failure with hypoxia; I95.9 Hypotension, unspecified; E87.2 Acidosis; R18.8 Other ascites; I50.22 Chronic systolic (congestive) heart failure; E11.22 Type 2 diabetes mellitus with diabetic chronic kidney disease; Z99.81 Dependence on supplemental oxygen; E83.51 Hypocalcemia; E83.39 Other disorders of phosphorus metabolism; J44.9 Chronic obstructive pulmonary disease, unspecified; N28.1 Cyst of kidney, acquired; L97.529 Non-pressure chronic ulcer of other part of left foot with unspecified severity; L97.519 Non-pressure chronic ulcer of other part of right foot with unspecified severity; Z95.5 Presence of coronary angioplasty implant and graft; I25.10 Atherosclerotic heart disease of native coronary artery without angina pectoris; I70.235 Atherosclerosis of native arteries of right leg with ulceration of other part of foot; I70.245 Atherosclerosis of native arteries of left leg with ulceration of other part of foot; E78.5 Hyperlipidemia, unspecified; G89.29 Other chronic pain; M54.9 Dorsalgia, unspecified; F41.9 Anxiety disorder, unspecified; F32.9 Major depressive disorder, single episode, unspecified; Z98.1 Arthrodesis status; G47.33 Obstructive sleep apnea (adult) (pediatric); E03.9 Hypothyroidism, unspecified; Z99.2 Dependence on renal dialysis; M11.262 Other chondrocalcinosis, left knee; M11.261 Other chondrocalcinosis, right knee; I25.5 Ischemic cardiomyopathy; Z88.5 Allergy status to narcotic agent; Z86.010 Personal history of colon polyps; Z90.89 Acquired absence of other organs; Z85.850 Personal history of malignant neoplasm of thyroid; Z79.4 Long term (current) use of insulin; Z87.891 Personal history of nicotine dependence; B95.62 Methicillin resistant Staphylococcus aureus infection as the cause of diseases classified elsewhere; Z87.81 Personal history of (healed) traumatic fracture
CPT/HCPCS: 1NSP; 2NASP; 87070; 87075; 87184; 36415; 36592; 71045; 72170; 73562-LT; 73562-RT; 74176; 76881; 82436; 87040; 87086; 87147; 93005; 93010; 93308; 93321; 93970; 96361; 96374; 97110-GO; 97161-GP; 97530-GO; 99291; J0131; J0885; J1644; J2405; J2765; J3370; J3490; J7040; J7060; Q9957

== ENCOUNTER 2018-02-14 07:08 | Inpatient (IN) | payer OTHER, MEDICARE ==
[~2018-02-14] VITALS: Ht 180.3 cm; Wt 88.7 kg
[~2018-02-14 07:08] MED LIST changes: +CALCIUM ACETAT667 M3 PO; +GABAPENTIN100 M2 PO; +HYDROCODON-ACE1 EAC2 PO; +LASIX80 M1 PO; +LEVOTHYROXINE200 MC1 PO; +METOPROLOL SUCC25 M1 PO; +NITROGLYCERIN0.4 M1 SL; +VITAMIN D250000 UNIT PO
--- NOTE | 2018-02-14 07:13 | ED GENERAL ADULT ---
See Addendum History of Present Illness General Chief Complaint: General Adult Stated Complaint: ?SEIZURE Source: patient, EMS Exam Limitations: no limitations Vital Signs & Intake/Output Vital Signs & Intake/Output Vital Signs Date Time Temp Pulse Resp B/P B/P Pulse O2 O2 Flow FiO2 Mean Ox Delivery Rate 02/14 921 96.0 88 20 80/40 Nasal 5.0L Cannula 02/15 808 87 20 80/40 90 Nasal 5.0L Cannula 02/14 0715 97.0 90 20 60/40 Nasal 2.0L Cannula Allergies Coded Allergies: hydromorphone (DEPRESSED RESPIRATIONS 01/18/17) Reconcile Medications Alprazolam (Xanax) 0.5 MG TABLET 1 TAB PO BID PRN ANXIETY Aspirin (Ecotrin*) 81 MG TABLET.DR 1 TAB PO DAILY HEART HEALTH (Reported) Clopidogrel Bisulfate (Plavix) 75 MG TABLET 75 MG PO DAILY ANTIPLATELET Ergocalciferol (Vitamin D2) (Vitamin D2) 50,000 UNIT CAPSULE 50,000 IU PO QTUES Vit D deficiency Folic Acid 1 MG TABLET 1 TAB PO DAILY SUPPLEMENT (Reported) Gabapentin 100 MG CAPSULE 100 MG PO DAILY Neuropathic pain Insulin Aspart (Novolog) 100 UNIT/ML CARTRIDGE 0 SC TIDAC DIABETES BEFORE MEALS... Blood Insulin Sugar Units <80 0 81-150 3 151-200 4 201-250 6 251-300 7 301-350 8 351-400 9 >400 10 Call Doctor Isosorbide Mononitrate (Isosorbide Mononitrate ER) 60 MG TAB.ER.24H 1 TAB PO DAILY CAD Levothyroxine Sodium 200 MCG TABLET 1 TAB PO DAILY AC THYROID (Reported) Melatonin 3 MG TABLET 1 TAB PO QPM SLEEP (Reported) Nitroglycerin 0.4 MG TAB.SUBL 1 TAB SL DAILY PRN CHEST PAIN (Reported) 1st sign of attack; may repeat every 5 minutes until relief; if pain persists after 3 tablets in 15 minutes, prompt medical att Ondansetron HCl (Zofran) 8 MG TABLET 1 TAB PO TID PRN NAUSEA/VOMITING ( Reported) Pantoprazole Sodium (Protonix) 40 MG TABLET.DR 1 TAB PO DAILY GI (Reported) Polyethylene Glycol 3350 (Miralax) 17 GRAM POWD.PACK 1 PAC PO DAILY CONSTIPATION (Reported) dissolve in water Sennosides/Docusate Sodium (Senna S Tablet) 8.6 MG-50 MG TABLET 2 TAB PO QPM CONSTIPATION (Reported) Sertraline HCl (Zoloft) 100 MG TABLET 1.5 TAB PO DAILY ANXIETY (Reported) Sevelamer Carbonate (Renvela) 800 MG TABLET 2 TAB PO TIDAC ERSD (Reported) Trazodone HCl 150 MG TABLET 1 TAB PO QPM SLEEP (Reported) Triage Nurses Notes Reviewed? yes Onset: Abrupt Duration: hour(s): Timing: no prior history HPI: 02/14/18 68-year-old male presents to the emergency department for new onset seizure. The patient has a history of renal failure. He had a generalized seizure apparently at [facility] today. In the emergency department he had a new onset wide-complex rhythm. I reviewed this with Dr. Zamudio who is in agreement that this is consistent with electrolyte derangement and not cardiac ischemia. Labs were sent. He was significantly hypotensive and 750 mL of IV fluid were given. Upon reevaluation of the patient after the fluid bolus he remains asymptomatic. The pressure is 80/50. Past History Travel History Traveled to [place] past 21 day No Medical History Any Pertinent Medical History? see below for history Neurological: proximal muscle pain & weakness UE/LE B/L EENT: NONE Cardiovascular: CAD, hypertension, hyperlipidemia, PVD, 6 CARDIAC STENTS Respiratory: COPD (on 2lpm O2) Gastrointestinal: hx colon polyps Hepatic: cholelithiasis (vs. 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 FH: heart disease MOTHER, , Age 85; Cause: ASHD (arteriosclerotic heart disease). Relation not specified for: FH: diabetes mellitus FH: hypertension Hx Contributory? No Review of Systems Review of Systems Constitutional: Denies: fever. EENTM: Reports: no symptoms. Respiratory: Denies: short of breath. Cardiovascular: Denies: chest pain. GI: Denies: abdominal pain. Genitourinary: Reports: see HPI. Musculoskeletal: Reports: see HPI. Neurological/Psychological: Reports: see HPI. Denies: confusion, headache. Hematologic/Endocrine: Reports: no symptoms. Physical Exam Physical Exam General Appearance: alert, awake, anxious, moderate distress Head: atraumatic, normal appearance Eyes: Bilateral: normal appearance, PERRL, EOMI. Ears, Nose, Throat: normal pharynx, normal ENT inspection Neck: normal inspection, supple Respiratory: normal breath sounds, chest non-tender, no respiratory distress Cardiovascular: regular rate/rhythm Peripheral Pulses: 3+ radial (R), 3+ radial (L) Gastrointestinal: soft, non-tender Back: decreased range of motion Extremities: pedal edema Neurologic/Psych: no motor/sensory deficits, awake, alert, oriented x 3 Skin: STASIS DERMATITIS LE Core Measures ACS in differential dx? Yes CVA/TIA Diagnosis: No Sepsis Present: No Sepsis Focused Exam Completed? No Progress Differential Diagnoses I considered the following diagnoses in my evaluation of the patient: [ Electrolyte derangement, adverse drug reaction, acute coronary syndrome, CVA, dysrhythmia] Plan of Care: Orders Procedure Date/time Status Renal Dialysis Diet 02/14 L Active Patient Data 02/14 1644 Active Patient Data 02/14 09 Active ED Holding Orders 02/14 915 Active Admit to inpatient 02/14 915 Active Vital Signs 02/14 915 Active Code Status 02/14 915 Active TROPONIN LEVEL 02/14 738 Complete PROTHROMBIN TIME 02/14 738 Complete D-DIMER 02/14 738 Complete COMPREHENSIVE METABOLIC PANEL 02/14 738 Complete CBC WITHOUT DIFFERENTIAL 02/14 738 Complete EKG 02/14 07 Active Laboratory Tests 02/14/18 0740: Anion Gap 29 H, Estimated GFR 12 L, BUN/Creatinine Ratio 6.5 L, Glucose 184 H, Calcium 7.4 L, Total Bilirubin 2.6 H, AST 21, ALT 19 L, Alkaline Phosphatase 540 H, Troponin I 0.04, Total Protein 6.2 L, Albumin 3.5, Globulin 2.7, Albumin/Globulin Ratio 1.3, PT 15.2 H, INR 1.39 H, D-Dimer High Sensitivty 718 H, CBC w Diff NO MAN DIFF REQ, RBC 4.20 L, MCV 94.2 H, MCH 30.7, MCHC 32.6 L, RDW 18.1 H, MPV 8.8, Gran % 79.9 H, Lymphocytes % 13.4 L, Monocytes % 6.3, Eosinophils % 0.1, Basophils % 0.3, Absolute Granulocytes 7.3 H, Absolute Lymphocytes 1.2, Absolute Monocytes 0.6, Absolute Eosinophils 0, Absolute Basophils 0 Initial ED EKG: NSR Prior EKG: changed Comments: 02/14/18 EKGs were reviewed with Dr. Zamudio. He is in agreement with the plan. I would also consider echocardiogram to rule out pericardial effusion. Departure Departure Disposition: STILL A PATIENT Condition: Stable Clinical Impression Primary Impression: Hypotension Secondary Impressions: Acute electrocardiogram changes, New onset seizure Referrals: Lakeisha Benedict DO Departure Forms: Customer Survey General Discharge Information Admission Note Spoke With: Tra ELDRIDGE,Hussain Mandel Documentation of Exam: Documentation of any treatments & extenuating circumstances including Concerns Regarding Discharge (functional status, medication knowledge or non-compliance, living conditions, etc.) that warrant an admission rather than observation: [The patient is being admitted for ICU monitoring, IV fluids, consider neurology consultation, extensive review of medications, follow electrolytes, nephrology consult] Critical Care Note Critical Care Note Critical Care Time: 30-74 min
[2018-02-14 07:48] LABS: ABSOLUTE BASOPHIL COUNT 0 /CUMM (0.0-0.2); ABSOLUTE EOSINOPHIL COUNT 0 /CUMM (0.0-0.7); ABSOLUTE GRANULOCYTE CT 7.3 /CUMM (1.4-6.5); ABSOLUTE LYMPH COUNT 1.2 /CUMM (1.2-3.4); ABSOLUTE MONOCYTE COUNT 0.6 /CUMM (0.10-0.60); BASOPHIL % 0.3 % (0.0-2.0); EOSINOPHIL % 0.1 % (0-5); GRANULOCYTE % 79.9 % (42.2-75.2); HEMATOCRIT 39.5 % (42-52); MEAN CORPUSCULAR HGB 30.7 PG (27.0-31.0); MEAN CORPUSCULAR HGB CONC 32.6 G/DL (33.0-37.0); MEAN CORPUSCULAR VOLUME 94.2 FL (80.0-94.0); MEAN PLATELET VOLUME 8.8 FL (7.4-10.4); PLATELET COUNT 215 /CUMM (130-400); RBC DISTRIBUTION WIDTH 18.1 % (11.5-14.5); WHITE BLOOD CELL COUNT 9.1 /CUMM (4.8-10.8)
[2018-02-14] MEDS ORDERED: MELATONIN3 M4 PO (08:11)
[2018-02-14] MEDS ORDERED: SENNA S TABLET1 EACH PO (08:13)
[2018-02-14] MEDS ORDERED: ZOFRAN8 M1 PO (08:14)
[2018-02-14] MEDS ORDERED: MIRALAX17 G1 PO (08:14)
[2018-02-14] MEDS ORDERED: PROTONIX40 M3 PO (08:17)
--- NOTE | 2018-02-14 08:22 | CT SCAN REPORT ---
EXAMINATION: CT HEAD WITHOUT CONTRAST CLINICAL INFORMATION: Seizure. COMPARISON: Head CT 12/24/2017 TECHNIQUE: Contiguous axial imaging was performed from the skull base to vertex without intravenous administration of contrast. There is mild to moderate motion artifact which somewhat hampers evaluation. DLP: 616 mGy-cm. FINDINGS: There is no intracranial hemorrhage, large infarction, or mass lesion. There is no extra-axial collection. The ventricles are normal in size and configuration without evidence of hydrocephalus. The paranasal sinuses are clear. The mastoids and middle ear cavities are clear. There are atherosclerotic calcification of the carotid siphons and vertebral arteries. The previously seen left frontal scalp hematoma has resorbed. There is partially imaged widening of the anterior atlantodental articulation. IMPRESSION: No acute intracranial abnormality.
[2018-02-14 08:35] LABS: PT 15.2 SEC (9.4-12.5)
--- NOTE | 2018-02-14 09:10 | RADIOLOGY REPORT ---
EXAMINATION: XR PORTABLE CHEST CLINICAL INFORMATION: Hypotension. COMPARISON: Prior chest radiographs, most recently 03/07/2018. TECHNIQUE: Portable frontal view of the chest was obtained. FINDINGS: There is stable cardiomegaly. No congestive heart failure is seen. Lung volumes are low. There is stable moderately severe elevation of the right hemidiaphragm. No focal infiltrate, effusion or pneumothorax is seen. There is no acute osseous abnormality. Lower cervical orthopedic hardware is seen. IMPRESSION: 1. There is cardiomegaly, without congestive heart failure. 2. There is stable elevation of the right hemidiaphragm. 4. No focal infiltrate or effusion is seen.
--- NOTE | 2018-02-14 10:04 | History & Physical ---
Sonal Braxton 02/14/18 1003: General Information and HPI MD Statement: I have seen and personally examined DEEPIKA BRANDT and documented this H&P. The patient is a 68 year old M who presented with a patient stated chief complaint of worsening lethargy and unresponsiveness this morning. []. Source of Information: patient, EMS Exam Limitations: no limitations History of Present Illness: Patient is a 68-year-old gentleman with past medical history significant for coronary artery disease status post multiple stent placement, COPD on 1.5-2 L home oxygen, end-stage renal disease on hemodialysis on Tuesdays , and Saturdays, hypertension, dyslipidemia, peripheral vascular disease, chronic back pain, type 2 diabetes, thyroid cancer status post thyroidectomy, chronic bilateral upper and lower extremity muscle pain/weakness with chronic dermatitis, anxiety and depression was brought in from extended care facility for questionable seizures and desaturation. Patient refused any unconsciousness event but he said he was feeling lethargic and very weak lately and was sent to ER because people over extended care facility not fully equipped to take care of him. While patient was arrived to emergency room he was alert and oriented 3 but found to be hypotensive to blood pressure 60/40 of note patient had chronic hypotension where his blood pressure remains in 80s to 90s systolic at baseline. He is also due for his dialysis today. He admits that he is pain having severe bilateral lower extremity pain lately with increased lower extremity skin wounds/dermatitis which were more pronounced for last 2 weeks and is not able to walk and uses wheelchair at facility. He also complaining of multiple upper extremity wounds where he he endorses that he scratches them a lot with multiple scars but denied any weeping ulcer or pussy discharge from his wounds. He denied any recent fever but was slightly chilly this morning. He denied any cough, chest pain, nausea, vomiting, headache, any urinary or bowel complaints. No seizure-like activity was noted while he is in emergency room brother some generalized body twitching were noted while he was sleeping. Vital signs on admission were temperature 97.0, pulse 90, blood pressure 60/40 which was increased to 80/40 and respiratory rate 20 with oxygen saturation 90% on 2 L nasal cannula later on required 5 L nasal cannula oxygen. Labs were significant for WBC count 9.1, hemoglobin 12.9, hematocrit 39.5, platelet count 2:15, INR 1.39, d-dimer 718, sodium 134, potassium 5.8, chloride 89, anion gap 29, BUNs 32, creatinine 4.9, lactic acid 5.4, calcium 7.4, bilirubin 2.6, troponin 0.04, Chest x-ray was negative for any infiltrate or effusion Head CT was negative for any acute intracranial pathology EKG showed very subtle changes in lead 1 and [address] elevation of note EKG was reviewed by Dr. Zamudio, he has new wide QRS complex in the anterior chest leads with underlying left bundle branch block but was new from previous EKGs. I called [facility] and spoke with nursing staff there and they reported that this morning when patient was coming out of bathroom accompanied by nursing staff there and staff noticed seizure-like activity for almost 1 minute but there was no witnessed fecal or urinary incontinence or tongue bite. He was signed noticed/martines hue to his color and desat to 81, blood pressure was 90/62 and blood sugar was 161. 911 was called and he was sent here. Of note patient while he was in ER had 2 witnessed seizures and after second seizure he was stuporous/agonal breathing is noted , found to be in pulseless electrical activity and CPR was initiated. He received 1 ampule of epinephrine and within 2 minutes of chest compressions carotid pulses were felt and CPR was stopped. He was immediately intubated by emergency physician and also given his persistent hypotension femoral line was placed and levo fed was started. Family and attending were updated immediately Allergies/Medications Allergies: Coded Allergies: hydromorphone (DEPRESSED RESPIRATIONS 01/18/17) Home Med list Alprazolam (Xanax) 0.5 MG TABLET 1 TAB PO BID PRN ANXIETY Aspirin (Ecotrin*) 81 MG TABLET. 1 TAB PO DAILY HEART HEALTH (Reported) Clopidogrel Bisulfate (Plavix) 75 MG TABLET 75 MG PO DAILY ANTIPLATELET Ergocalciferol (Vitamin D2) (Vitamin D2) 50,000 UNIT CAPSULE 50,000 IU PO QTUES Vit D deficiency Folic Acid 1 MG TABLET 1 TAB PO DAILY SUPPLEMENT (Reported) Gabapentin 100 MG CAPSULE 100 MG PO DAILY Neuropathic pain Insulin Aspart (Novolog) 100 UNIT/ML CARTRIDGE 0 SC TIDAC DIABETES BEFORE MEALS... Blood Insulin Sugar Units <80 0 81-150 3 151-200 4 201-250 6 251-300 7 301-350 8 351-400 9 >400 10 Call Doctor Isosorbide Mononitrate (Isosorbide Mononitrate ER) 60 MG TAB.ER.24H 1 TAB PO DAILY CAD Levothyroxine Sodium 200 MCG TABLET 1 TAB PO DAILY AC THYROID (Reported) Melatonin 3 MG TABLET 1 TAB PO QPM SLEEP (Reported) Nitroglycerin 0.4 MG TAB.SUBL 1 TAB SL DAILY PRN CHEST PAIN (Reported) 1st sign of attack; may repeat every 5 minutes until relief; if pain persists after 3 tablets in 15 minutes, prompt medical att Ondansetron HCl (Zofran) 8 MG TABLET 1 TAB PO TID PRN NAUSEA/VOMITING ( Reported) Pantoprazole Sodium (Protonix) 40 MG TABLET.DR 1 TAB PO DAILY GI (Reported) Polyethylene Glycol 3350 (Miralax) 17 GRAM POWD.PACK 1 PAC PO DAILY CONSTIPATION (Reported) dissolve in water Sennosides/Docusate Sodium (Senna S Tablet) 8.6 MG-50 MG TABLET 2 TAB PO QPM CONSTIPATION (Reported) Sertraline HCl (Zoloft) 100 MG TABLET 1.5 TAB PO DAILY ANXIETY (Reported) Sevelamer Carbonate (Renvela) 800 MG TABLET 2 TAB PO TIDAC ERSD (Reported) Trazodone HCl 150 MG TABLET 1 TAB PO QPM SLEEP (Reported) Compliance With Home Meds: FAIR Past History Travel History Traveled to [place] past 21 day No Medical History Neurological: proximal muscle pain & weakness UE/LE B/L EENT: NONE Cardiovascular: CAD, hypertension, hyperlipidemia, PVD, 6 CARDIAC STENTS Respiratory: COPD (on 2lpm O2) Gastrointestinal: hx colon polyps Hepatic: cholelithiasis (vs. 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 FH: heart disease MOTHER, , Age 85; Cause: ASHD (arteriosclerotic heart disease). Relation not specified for: FH: diabetes mellitus FH: hypertension Psychosocial History Who Do You Live With? girlfriend Services at Home: Home Health Aide, Nursing, Oxygen, Physical Therapy Primary Language: Malay ETOH Use: denies use Illicit Drug Use: denies illicit drug use Living Will? no Power of Grinding Machine Operator/HCP? no Functional Ability ADLs Independent: dressing, eating, toileting, bathing. Ambulation: independent (and/or rolling walker), cane IADLs Independent: shopping, housework, finances, food prep, telephone, transportation , medication admin. Review of Systems Review of Systems Constitutional: Reports: chills, weakness. Denies: diaphoresis. EENTM: Denies: blurred vision, visual changes. Cardiovascular: Denies: edema, orthopena, palpitations. Respiratory: Denies: cough, hemoptysis, orthopnea. GI: Denies: bloating, constipation, diarrhea. Genitourinary: Denies: discharge, dysuria. Musculoskeletal: Reports: back pain, muscle pain. Skin: Reports: see HPI. Exam & Diagnostic Data Last 24 Hrs of Vital Signs/I&O Vital Signs Date Time Temp Pulse Resp B/P B/P Pulse O2 O2 Flow FiO2 Mean Ox Delivery Rate 02/14 1050 96.0 88 20 80/50 98 Nasal 5.0L Cannula 02/14 1001 87 20 80/50 100 Nasal 5.0L Cannula 02/14 0921 96.0 88 20 80/40 Nasal 5.0L Cannula 02/14 0808 87 20 80/40 90 Nasal 5.0L Cannula 02/14 0730 90 Nasal 5.0L Cannula 02/14 0715 97.0 90 20 60/40 Nasal 2.0L Cannula Intake & Output 02/14 1600 08 0800 05/08 0000 Intake Total 1000 Output Total Balance 1000 Intake, IV 1000 Patient 280 lb Weight Weight Estimated Measurement Method Physical Exam General Appearance Alert, Oriented X3, Cooperative, No Acute Distress Skin MULTIPLE SKIN TEARS AND LACERATIONS IN DIFFERENT STAGES OF HEALING ON BILATERAL LOWER EXTREMITY AND UPPER EXTREMITIES HEENT PERRLA, EOMI, Mucous Membr. moist/pink Neck Supple, No JVD Cardiovascular Regular Rate, Normal S1, Normal S2 Lungs Normal Air Movement Abdomen Soft, No Tenderness Neurological Normal Speech, Strength at 5/5 X4 Ext, Normal Tone, DECREASED SENSATIONS ON LEFT LOWER EXTREMITY OVER LEFT FOOT Extremities No Cyanosis, No Edema, TENDERNESS POSITIVE ON BILATERAL LOWER EXTREMITY Assessment/Plan Assessment: Patient is a 68-year-old gentleman with past medical history significant for coronary artery disease status post multiple stent placement, COPD on 1.5-2 L home oxygen, end-stage renal disease on hemodialysis on Tuesdays , and Saturdays, hypertension, dyslipidemia, peripheral vascular disease, chronic back pain, type 2 diabetes, thyroid cancer status post thyroidectomy, chronic bilateral upper and lower extremity muscle pain/weakness with chronic dermatitis, anxiety and depression was brought in from [facility] care facility for questionable seizures and desaturation. Initial lab testing shows elevated lactic acid and hypotension even though his baseline systolic blood pressure remains in 80s to 90s but he dropped his blood pressure to 60s concerning for emerging sepsis most likely his multiple skin wounds could be the source of infection. Admit him in ICU and will take care for the following problems. Problem list 1. Lactic acidosis with elevated anion gap could be due to underlying infection which most likely is dermatological origin given multiple lower extremity ulcerative wounds. 2. ERSD on scheduled dialysis on Tuesdays, and Saturdays 3. Congestive heart failure with reduced ejection fraction 4. New onset seizures 5. Hypotension could be due to sepsis with history of low blood pressure at baseline 6. New subtle EKG changes in anterolateral leads with negative troponins 7. Severe metabolic acidosis/lactic acidosis on dialysis 8. Multiple bilateral lower extremity necrotic wounds with Squamated skin lesions 9. Status post CPR, on vasopressors, status post intubation 10. Right thigh wound concerning for calciphylaxis but biopsy came back negative in last admission Plan 1. We will admit patient in ICU 2. We will keep him on seizure precautions as he had a witnessed seizure while he was in ER. He was given loading dose of Keppra thousand milligrams IV once and neurology was already called and we will follow neurology recommendations. 2. Patient had severe metabolic acidosis with pH of 7.23 and lactic acidosis of 5.4. He is a dialysis patient. He is due for his dialysis today and Dr. Pradhan was already informed and patient is scheduled for dialysis. 3. He has hypotension to systolic blood pressure in 60s. Femoral line was placed by Dr. Reaves in emergency room and patient was initially started on levo fed which was maxed out and was started on vasopressin which was also maxed out and third agent dopamine was added and his blood pressure still remained in 60s systolic and he was started on Bassam. We will titrate his pressors to goal Of MAP more than 65. 4. He has severe lactic acidosis most likely due to sepsis and lactic acid is still trending UP his last one was 9.4. will trend after every 3 hours. Patient was given ampule of bicarbonate and later on was started on bicarbonate drip with 100 mEq in normal saline at rate 100 mL per hour. 5. Given his hypotension Dr. Pradhan was again called if he would need dialysis. Patient was discussed with Dr. Pradhan in detail and according to him given his hyperkalemia and severe metabolic/respiratory acidosis he would need dialysis but he will not take fluids out and if needed we can give him bolus of fluids accordingly. 6. He had 2 witnessed seizures in emergency room and after second seizure he became obtunded found to have pulseless electrical activity for which he was coded and CPR was initiated and pulses were palpated within 2 minutes of CPR. CPR was stopped and he was intubated immediately by ER physician and also given his hypotension femoral line was placed. 7. Neurology was consulted and I spoke with Dr. Ellison. Patient was already given thousand milligrams of IV Keppra after consulting Dr. Dutta. Dr. Ellison doesn't want any more [place] till he would receive his dialysis. He recommended to start Keppra 500 mg twice a day after dialysis as Keppra is nephrotoxic. Also recommended to load patient with Depacon 15 mg/kg body weight and started 500 mg twice a day after 8 hours off loading dose. 8. Infectious disease Hollis Larios MD was consulted and we started patient on vancomycin and Ceftin as for now. 9. Blood culture, respiratory culture and urine culture were sent 10. We will trend troponins and EKG for next 2 sets post CPR. 11. We will draw another ABG around 5 PM. 12. Seizure precautionschest x-ray in a.m. status post intubation 13. Once patient would be more stable we will consider diagnostic paracentesis 14. For closer/accurate monitoring of his arterial blood pressure and map we will place arterial line. Consent was taken from family on phone. 15. Wound care 16. We will hold oral medications for now and will ask cardiology regarding starting aspirin and Plavix through NG tube from tomorrow . IV proton pump inhibitors and IV levothyroxine Patient is DNR Nothing by mouth Pharmacological DVT prophylaxis As Ranked By This Provider Problem List: 1. Ischemic ulcer of foot due to atherosclerosis of [place] artery of extremity 2. ESRD (end stage renal disease) on dialysis 3. Hypotension Core Measures/Misc (06/26) Acute Coronary Syndrome ACS Diagnosis: No Congestive Heart Failure Congestive Heart Failure Diagnosis No Cerebrovascular Accident CVA/TIA Diagnosis: No VTE (View Protocol) VTE Risk Factors Age>40 No Mechanical VTE Prophylaxis d/t N/A MechProphylax Ordered No VTE Pharm Prophylaxis d/t NA PharmProphylax ordered Sepsis (View protocol) Sepsis Present: Yes Resident Review Statement Resident Statement: examined this [facility]8: Attending MD Review Statement Attending Statement Attending MD Statement: examined this patient, discuss w/resident/PA/PALLIATIVE CARE NURSE, agreed w/resident/PA/PALLIATIVE CARE NURSE, discussed with family, reviewed EMR data (avail), discussed with nursing, discussed with case mgmt, reviewed images, amended to note Attending Assessment/Plan: Patient is being seen by me multiple times since early this morning. Agree with above assessment. In brief this is an unfortunate gentleman with multiple organ failure including renal failure, recent sepsis and discharged from this hospital, significant coronary artery disease with very severe ischemic cardiomyopathy with EF of 20%, multiple stents in the past, severe peripheral vascular disease with recent instrumentation of both lower extremity, previous thyroid malignancy, recent skin issues with suspicion for calciphylaxis but biopsy unremarkable with recurrent infection with staph, right heart failure with ascites with no clinical evidence suggestive of shrunken liver with dysfunctional liver disease, on and off cellulitis, chronic chest discomfort, incidental renal mass, multiple electrolyte abnormality, hypertension, hyperlipidemia, chronic anxiety and pain, now came in with recurrent seizure. Since admission he has been hypotensive which responded well to fluid resuscitation. Patient has had no fever no chills no cough and his review of symptoms was otherwise unremarkable. His white count was not elevated. However he had significant low flow state and was fluid resuscitated. Subsequently he did have recurrent seizure and episodes of vomiting as well and had to be intubated. Ariane intubation patient did have quite complex rhythm and subsequently did lost his pulse and had to have a short period of chest compressions. At this time now he is intubated on vasopressors with a triple- lumen catheter. Initially when I had examined the patient in the morning he was alert awake and oriented 3, no headache no neck stiffness, no cough or sputum, no abdominal pain or discomfort, he did have complaints of skin lesions. He did explicitly indicate to me that he wanted to be intubated etc. but he only wanted one attempt for CPR if he did have cardiopulmonary arrest. He wanted his significant other Carie to make all his decisions if he were to be incapacitated. ISSUES Profound hypotension upon admission which responded to fluid boluses with no fever no white count with significant ascites BD edema highly suggestive of very severe right heart failure in a gentleman with low ejection fraction with low flow state including metabolic acidosis. Multiple skin lesions with recent sepsis with no clinical evidence suggestive of active septicemia however this cannot be ruled out. Patient would require broad -spectrum antibiotics. So far radiologically as work does not have a pneumonia and he is not to stable for any further imaging. Patient is not a candidate for aggressive fluid resuscitation due to very low ejection fraction and renal failure pending pulmonary edema Severe renal failure and electrolyte abnormality Profound ischemic cardiomyopathy with low ejection fraction, intraventricular abnormalities in the EKG, on and off broad complex tachycardia. Cardiology is aware and he is being managed symptomatically Severe metabolic acidosis with severe renal failure, lactic acidosis after seizure. Recurrent new onset seizure initial focality probably related to electrolyte abnormality versus ischemic injury to the brain. No clinical evidence suggestive of meningitis as when I had examined in the morning he was showing no signs of meningismus and he had no neck stiffness etc. Altered LFTs, profound ascites which has been present in the past, previous GI evaluation suggestive ofsignificant cirrhosis however this may be all related to profound right heart failure with congestion of the liver. Patient does have normal INR and normal albumin which was 3.5 this morning suggestive of preserved synthetic function however his bilirubin is significantly elevated and he has chronically elevated alkaline phosphatase etc. putting him at high risk for chronic liver disease Significant COPD on 2 L nasal cannula with chronic lung disease with previous history of smoking area no evidence suggestive of active COPD exacerbation Severe peripheral vascular disease with recent lower extremity stent placement bilaterally. Patient seems to be perfusing his lower extremity, no DVT noted Hypertension, hyperlipidemia, chronic back pain, type 2 diabetes which needs to be evaluated and followed while he is here RECOMMENDATION Gentle fluid resuscitation Panculture and broad-spectrum antibiotics Ultrasound of the abdomen and if he has significant ascites status may need to be tapped Cardiology is aware and will treat him symptomatically if he were to develop any other worsening tachycardia Repeat his labs every 4 hours initially to evaluate his calcium, potassium Renal, cardiology, ID evaluation pending Start him on hydrocortisone 100 every 8 Check random cortisol and TSH Convert his Synthroid to intravenous for now IV PPI Continue his antiplatelet therapy after putting in an OG tube Paracentesis by interventional radiology Follow sugars closely fingerstick glucose every 4 hours and only cover him if his blood sugar is more than 200 Adequate skin care Arterial line Neurology evaluation Loading with [facility] Bedside ultrasound to evaluate for pericardial effusion and tamponade Discussed multiple times without staph, cardiology, emergency room physicians since this morning Total time spent with the patient within 90 minutes 04 He did have a discussion with the patient when he first came in. He wished to be full code, however he did not want to have attempted chest compressions for more than one time. He wished to be made no chest compressions if he did have one cardiopulmonary arrest. Subsequently he wanted to have conservative therapy if he were to be significantly ill and he wanted his significant other Carie to make his decisions. I did discuss with her over the telephone. She agreed to make the patient DNR but will continue aggressive measures for now. A family meeting will be held tomorrow to discuss further goals of therapy. Clearly patient wished to be very conservatively if he were to be significantly sick but he wanted to have an attempt of intubation and CPR one time. Did discuss with his outpatient clearing house clerk Dr. Moyer and he did indicate that the patient had told multiple times that he wanted very conservative therapy as well. Addendum Seen and evaluated again this evening Patient continues to be insignificant shock requiring multiple vasopressors No fever, no sputum. He is less responsive and did receive Ativan. No further seizure noted He is now intubated and oxygenating well. His chest x-ray did not show any pneumonia or any effusion. No other tests could be done as he is critically ill. He did have an echocardiogram which showed very severe cardiomyopathy with severe dilated right ventricle with interventricular septum bowing consistent with severe right heart dysfunction and failure. Patient did undergo dialysis. Repeat ABG reviewed Patient continues to be metabolically acidotic whatsoever to be improving Other investigations reviewed CT scan of the head no significant. Lower extremity Doppler unremarkable Vital signs reviewed and discussed with the warehouse examiner. O2 sat 97% on 70% FiO2. Blood pressure is now stable with white complex tachycardia persisting. Lactic acidosis seems to be improving. TSH was significantly elevated, random cortisol level is 59. IMPRESSION Profound shock most likely related to right heart failure with cardiogenic etiology. No clinical evidence suggestive of severe septic shock. Was to his lactic acidosis doses is related to severe low flow state. Wide-complex tachycardia, intraventricular conduction delay noted with electrolyte abnormality. However his potassium has been relatively treated Significant renal failure status post dialysis nephrology assistance greatly advised Lower extremity multiple necrotic skin lesions but no evidence suggestive of significant inflammation, no significant intra-abdominal pathology, no significant aspiration pneumonia as noted in the chest x-ray. At this time he continues to be on broad-spectrum antibiotics Profound hypothyroidism he needs to be on intravenous levothyroxine him not sure whether he was receiving levothyroxine at home we will increase his dose No clinical evidence suggestive of hypercortisolism or other distributive shock. No lower extremity DVT and unlikely that this is venous thromboembolism and patient is not a candidate for anticoagulation at this present time due to multiple CPR and recurrent stroke Plan As noted above Increase levothyroxine to 200 MCG intravenously Continue antiplatelet therapy Wean off dopamine and continue other vasopressors We'll check ultrasound of the abdomen at the bedside and evaluated for ascites. This may need to be tapped tomorrow Repeat coags Reposition ET tube Continue broad-spectrum antibiotics Hold off on bicarbonate drip for now as he is hemodynamically stable next line we'll check ABG Continue his antiseizure medication Prognosis is extremely poor if he continues to improve will consider CTA of the chest to rule out pulmonary embolism and CT scan of the abdomen and pelvis subsequently. Additional 45 minutes of critical care time spent with the patient and did discuss with his significant other and the family meeting will be held tomorrow
--- NOTE | 2018-02-14 11:30 | ULTRASOUND REPORT ---
EXAMINATION: US TRIPLEX OF LOWER EXTREMITIES, BILATERAL CLINICAL INFORMATION: Bilateral lower extremity edema COMPARISON: None TECHNIQUE: Color-flow triplex imaging with spectral analysis and compression Doppler were performed on the lower extremities. FINDINGS: Respiratory variation, normal compression and augmented flow are noted throughout the lower extremities. The visualized common femoral vein, superficial femoral vein, profunda femoral vein and popliteal veins. Because of the marked lower extremity edema, tibial veins were not optimally seen. There is no Iyer's cyst on the right but there is a 3.0 x 0.5 x 3.5 cm Iyer's cyst on the left. IMPRESSION: No evidence of deep venous thrombosis involving the lower extremities from the popliteal veins upwards. Left-sided Iyer's cyst. Calf veins are not optimally visualized.
--- NOTE | 2018-02-14 14:26 | Cons- Infect Disease ---
General Information and HPI Consulting Request Date of Consult: 02/14/18 Requested By: Tra ELDRIDGE,Hussain Mandel Reason for Consult: Rule out sepsis Source of Information: old records Exam Limitations: clinical condition History of Present Illness: This is a 68-year-old man with a history of hypertension, coronary artery disease, status post multiple stents, cardiomyopathy, with a markedly reduced ejection fraction, COPD, maintained on 2 L of oxygen, diabetes, complicated by end-stage renal disease, maintained on hemodialysis Tuesdays, and Saturdays via a left upper extremity AV fistula, peripheral vascular disease, chronic back pain and elevated liver enzymes for the past 6 months, hospitalized 6 weeks prior to admission with a painful lesion on the medial aspect of his right thigh, 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 On admission he was afebrile, with a blood pressure of 60/40. Laboratory data revealed a white blood cell count of 9000, BUN/ creatinine 32 and 4.9, potassium 5.8, lactic acid 5.4, bilirubin 2.6, alkaline phosphatase 540, troponin 0.04, INR 1.39. Chest x-ray was negative. CT of the head was negative. Dopplers of both lower extremities revealed a right leg Iyer's cyst. Approximately 5 hours after arrival in the emergency room, upon drawing blood, he became martines, vomited and unresponsive, with slight seizure activity noted. He then became bradycardic and dyspneic. CPR was initiated and he was intubated. A right femoral triple lumen catheter was inserted, he was begun on Levophed and admitted to the ICU. Allergies/Medications Allergies: Coded Allergies: hydromorphone (DEPRESSED RESPIRATIONS 01/18/17) Home Med List: Alprazolam (Xanax) 0.5 MG TABLET 1 TAB PO BID PRN ANXIETY Aspirin (Ecotrin*) 81 MG TABLET.DR 1 TAB PO DAILY HEART HEALTH (Reported) Clopidogrel Bisulfate (Plavix) 75 MG TABLET 75 MG PO DAILY ANTIPLATELET Ergocalciferol (Vitamin D2) (Vitamin D2) 50,000 UNIT CAPSULE 50,000 IU PO QTUES Vit D deficiency Folic Acid 1 MG TABLET 1 TAB PO DAILY SUPPLEMENT (Reported) Gabapentin 100 MG CAPSULE 100 MG PO DAILY Neuropathic pain Insulin Aspart (Novolog) 100 UNIT/ML CARTRIDGE 0 SC TIDAC DIABETES BEFORE MEALS... Blood Insulin Sugar Units <80 0 81-150 3 151-200 4 201-250 6 251-300 7 301-350 8 351-400 9 >400 10 Call Doctor Isosorbide Mononitrate (Isosorbide Mononitrate ER) 60 MG TAB.ER.24H 1 TAB PO DAILY CAD Levothyroxine Sodium 200 MCG TABLET 1 TAB PO DAILY AC THYROID (Reported) Melatonin 3 MG TABLET 1 TAB PO QPM SLEEP (Reported) Nitroglycerin 0.4 MG TAB.SUBL 1 TAB SL DAILY PRN CHEST PAIN (Reported) 1st sign of attack; may repeat every 5 minutes until relief; if pain persists after 3 tablets in 15 minutes, prompt medical att Ondansetron HCl (Zofran) 8 MG TABLET 1 TAB PO TID PRN NAUSEA/VOMITING ( Reported) Pantoprazole Sodium (Protonix) 40 MG TABLET.DR 1 TAB PO DAILY GI (Reported) Polyethylene Glycol 3350 (Miralax) 17 GRAM POWD.PACK 1 PAC PO DAILY CONSTIPATION (Reported) dissolve in water Sennosides/Docusate Sodium (Senna S Tablet) 8.6 MG-50 MG TABLET 2 TAB PO QPM CONSTIPATION (Reported) Sertraline HCl (Zoloft) 100 MG TABLET 1.5 TAB PO DAILY ANXIETY (Reported) Sevelamer Carbonate (Renvela) 800 MG TABLET 2 TAB PO TIDAC ERSD (Reported) Trazodone HCl 150 MG TABLET 1 TAB PO QPM SLEEP (Reported) Past History Travel History Traveled to [place] past 21 day No Medical History Neurological: proximal muscle pain & weakness UE/LE B/L EENT: NONE Cardiovascular: CAD, hypertension, hyperlipidemia, PVD, 6 CARDIAC STENTS Respiratory: COPD (on 2lpm O2) Gastrointestinal: hx colon polyps Hepatic: cholelithiasis (vs. 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 FH: heart disease MOTHER, , Age 85; Cause: ASHD (arteriosclerotic heart disease). Relation not specified for: FH: diabetes mellitus FH: hypertension Psychosocial History Who Do You Live With? girlfriend Services at Home: Home Health Aide, Nursing, Oxygen, Physical Therapy Primary Language: [place] ETOH Use: denies use Illicit Drug Use: denies illicit drug use Living Will? 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 Ambulation: independent (and/or rolling walker), cane IADLs Independent: shopping, housework, finances, food prep, telephone, transportation , medication admin. Review of Systems Comments Unobtainable Exam & Diagnostic Data Last 24 Hrs of Vital Signs/I&O Vital Signs Date Time Temp Pulse Resp B/P B/P Pulse O2 O2 Flow FiO2 Mean Ox Delivery Rate 02/14 1315 96.0 88 20 80/00 02/14 1301 80/00 08 1300 60 08 1204 62/38 02/14 1050 96.0 88 20 80/50 98 Nasal 5.0L Cannula 02/14 1001 87 20 80/50 100 Nasal 5.0L Cannula 02/14 0921 96.0 88 20 80/40 Nasal 5.0L Cannula 02/14 0808 87 20 80/40 90 Nasal 5.0L Cannula 02/14 0730 90 Nasal 5.0L Cannula 02/14 0715 97.0 90 20 60/40 Nasal 2.0L Cannula Intake & Output 02/14 1600 08 0800 08 0000 Intake Total 1000 Output Total Balance 1000 Intake, IV 1000 Patient 280 lb Weight Weight Estimated Measurement Method Physical Exam Other Physical Findings: He is unresponsive on the ventilator. He is afebrile. Skin is ashen colored. HEENT exam is negative. Neck is supple with no adenopathy. Lungs are clear. Heart regular rhythm with no murmur. Abdomen is soft, nontender with positive bowel sounds. Back no CVA tenderness. Extremities right medial thigh ulceration, with no surrounding erythema; bilateral lower extremities cool to touch, with faint, though palpable, pulses; chronic venous stasis changes both lower extremities; left upper extremity fistula, with no bruit or thrill appreciated; right femoral triple-lumen catheter in place; necrotic finger, toe and heel lesions. Neuro is without obvious focality. Last 24 Hours of Lab Results: Laboratory Tests 02/14 02/14 02/14 1215 1214 1207 Blood Gas pH (7.35 - 7.45 PH) 7.23 *L pCO2 (35 - 45 TORR) 22 L pO2 (80 - 100 TORR) 320 H HCO3 (21 - 28 MEQ/L) 9 L ABG O2 Sat (Measured) (>96.0 %) 100.0 Carboxyhemoglobin (1.5 - 5.0 %) 1.2 L O2 Concentration % 100% O2 Delivery Method NRB Chemistry Lactic Acid (0.7 - 2.1 mmol/L) 5.0 H Prolactin (3.7 - 17.9 ng/mL) 91.3 H Miscellaneous Phlebotomy Draw Site RIGHT BRACHIAL 02/14 0740 Chemistry Sodium (137 - 145 mmol/L) 134 L Potassium (3.5 - 5.1 mmol/L) 5.8 H Chloride (98 - 107 mmol/L) 89 L Carbon Dioxide (22 - 30 mmol/L) 16 L Anion Gap (5 - 16) 29 H BUN (9 - 20 mg/dL) 32 H Creatinine (0.7 - 1.2 mg/dL) 4.9 H Estimated GFR (>60 ml/min) 12 L BUN/Creatinine Ratio (7 - 25 %) 6.5 L Glucose (65 - 99 mg/dL) 184 H Lactic Acid (0.7 - 2.1 mmol/L) 5.4 H Calcium (8.4 - 10.2 mg/dL) 7.4 L Magnesium (1.6 - 2.3 mg/dL) 2.2 Total Bilirubin (0.2 - 1.3 mg/dL) 2.6 H AST (17 - 59 U/L) 21 ALT (21 - 72 U/L) 19 L Alkaline Phosphatase (< 127 U/L) 540 H Troponin I (<0.11 ng/ml) 0.04 Total Protein (6.3 - 8.2 g/dL) 6.2 L Albumin (3.5 - 5.0 g/dL) 3.5 Globulin (1.9 - 4.2 gm/dL) 2.7 Albumin/Globulin Ratio (1.1 - 2.2 %) 1.3 Coagulation PT (9.4 - 12.5 SEC) 15.2 H INR (0.90 - 1.17) 1.39 H D-Dimer High Sensitivty (0 - 243 ng/ml) 718 H Hematology CBC w Diff NO MAN DIFF REQ WBC (4.8 - 10.8 /CUMM) 9.1 RBC (4.70 - 6.10 /CUMM) 4.20 L Hgb (14.0 - 18.0 G/DL) 12.9 L Hct (42 - 52 %) 39.5 L MCV (80.0 - 94.0 FL) 94.2 H MCH (27.0 - 31.0 PG) 30.7 MCHC (33.0 - 37.0 G/DL) 32.6 L RDW (11.5 - 14.5 %) 18.1 H Plt Count (130 - 400 /CUMM) 215 MPV (7.4 - 10.4 FL) 8.8 Gran % (42.2 - 75.2 %) 79.9 H Lymphocytes % (20.5 - 51.1 %) 13.4 L Monocytes % (1.7 - 9.3 %) 6.3 Eosinophils % (0 - 5 %) 0.1 Basophils % (0.0 - 2.0 %) 0.3 Absolute Granulocytes (1.4 - 6.5 /CUMM) 7.3 H Absolute Lymphocytes (1.2 - 3.4 /CUMM) 1.2 Absolute Monocytes (0.10 - 0.60 /CUMM) 0.6 Absolute Eosinophils (0.0 - 0.7 /CUMM) 0 Absolute Basophils (0.0 - 0.2 /CUMM) 0 Last 24 Hours of Angus Results: Blood cultures February 14 pending Diagnostic Data Recent Imaging Findings: Chest x-ray February [address] of the head no acute process Dopplers of both lower extremities February 14 reveals a left leg Iyer's cyst Assessment/Plan Assessment/Plan Impression: This is a 68-year-old man with a history of diabetes, complicated by end-stage renal disease, maintained on hemodialysis, peripheral vascular disease and a cardiomyopathy, hospitalized 6 weeks prior to admission with a painful lesion on the medial aspect of his right thigh 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 His hypotension may be multifactorial, with his underlying cardiomyopathy likely contributing. It is not clear if he is septic, with his temperatures and white blood cell count normal and with no obvious focus of infection. He does have multiple necrotic skin lesions, though his right medial lesion, which was felt to be secondary to calciphylaxis and was quite inflamed on his recent admission, has no surrounding inflammation presently, and he has no other areas suggestive of cellulitis. His chest x-ray is negative though, with his recent vomiting, he may well have aspirated. Given his poor condition he can be covered broadly for possible sepsis pending cultures. The etiology of his seizures is unclear, with the CT of his head negative and with no obvious metabolic abnormalities. His overall prognosis is quite poor and this may affect further management. Suggestion: 1. Would send sputum for culture 2. Follow-up recent blood cultures 3. Begin vancomycin 1 g IV 1 and Ceftazidime 1 g IV every 24 hours pending above Consult Acknowledgment - Thank you for your consult request.
--- NOTE | 2018-02-14 14:37 | Cons- Nephrology ---
General Information and HPI Consulting Request Date of Consult: 02/14/18 Requested By: Tra ELDRIDGE,Hussain Mandel History of Present Illness: Mr. Dodd is a 68 yo gentleman with ESRD on dialysis since last summer due to HTN/DM, CAD. He is chronically fluid overloaded (heart failure EF 25% mod pulm HTN, mod TR). He has been predominantly bed bound the past several weeks (per patient) with cracks in his feet which were treated with lotoin. He came to the hospital today with hypontension, poor po intake and not feeling well and is admitted with sepsis. he was last dialyzed on Tuesday. K is 5.8 today. Allergies/Medications Allergies: Coded Allergies: hydromorphone (DEPRESSED RESPIRATIONS 01/18/17) Home Med List: Alprazolam (Xanax) 0.5 MG TABLET 1 TAB PO BID PRN ANXIETY Aspirin (Ecotrin*) 81 MG TABLET.DR 1 TAB PO DAILY HEART HEALTH (Reported) Clopidogrel Bisulfate (Plavix) 75 MG TABLET 75 MG PO DAILY ANTIPLATELET Ergocalciferol (Vitamin D2) (Vitamin D2) 50,000 UNIT CAPSULE 50,000 IU PO QTUES Vit D deficiency Folic Acid 1 MG TABLET 1 TAB PO DAILY SUPPLEMENT (Reported) Gabapentin 100 MG CAPSULE 100 MG PO DAILY Neuropathic pain Insulin Aspart (Novolog) 100 UNIT/ML CARTRIDGE 0 SC TIDAC DIABETES BEFORE MEALS... Blood Insulin Sugar Units <80 0 81-150 3 151-200 4 201-250 6 251-300 7 301-350 8 351-400 9 >400 10 Call Doctor Isosorbide Mononitrate (Isosorbide Mononitrate ER) 60 MG TAB.ER.24H 1 TAB PO DAILY CAD Levothyroxine Sodium 200 MCG TABLET 1 TAB PO DAILY AC THYROID (Reported) Melatonin 3 MG TABLET 1 TAB PO QPM SLEEP (Reported) Nitroglycerin 0.4 MG TAB.SUBL 1 TAB SL DAILY PRN CHEST PAIN (Reported) 1st sign of attack; may repeat every 5 minutes until relief; if pain persists after 3 tablets in 15 minutes, prompt medical att Ondansetron HCl (Zofran) 8 MG TABLET 1 TAB PO TID PRN NAUSEA/VOMITING ( Reported) Pantoprazole Sodium (Protonix) 40 MG TABLET.DR 1 TAB PO DAILY GI (Reported) Polyethylene Glycol 3350 (Miralax) 17 GRAM POWD.PACK 1 PAC PO DAILY CONSTIPATION (Reported) dissolve in water Sennosides/Docusate Sodium (Senna S Tablet) 8.6 MG-50 MG TABLET 2 TAB PO QPM CONSTIPATION (Reported) Sertraline HCl (Zoloft) 100 MG TABLET 1.5 TAB PO DAILY ANXIETY (Reported) Sevelamer Carbonate (Renvela) 800 MG TABLET 2 TAB PO TIDAC ERSD (Reported) Trazodone HCl 150 MG TABLET 1 TAB PO QPM SLEEP (Reported) Review of Systems Review of Systems: As in HPI otherwise negative Past History Travel History Traveled to [place] past 21 day No Medical History Neurological: proximal muscle pain & weakness UE/LE B/L EENT: NONE Cardiovascular: CAD, hypertension, hyperlipidemia, PVD, 6 CARDIAC STENTS Respiratory: COPD (on 2lpm O2) Gastrointestinal: hx colon polyps Hepatic: cholelithiasis (vs. 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 FH: heart disease MOTHER, , Age 85; Cause: ASHD (arteriosclerotic heart disease). Relation not specified for: FH: diabetes mellitus FH: hypertension Psychosocial History Who Do You Live With? girlfriend Services at Home: Home Health Aide, Nursing, Oxygen, Physical Therapy Primary Language: Moroccan ETOH Use: denies use Illicit Drug Use: denies illicit drug use Living Will? 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 Ambulation: independent (and/or rolling walker), cane IADLs Independent: shopping, housework, finances, food prep, telephone, transportation , medication admin. Exam & Diagnostic Data Vital Signs and I&O M weak in ED 80/p P 63 T 96 Skin neg rash Eyes anicteric ENT moist Lungs diminished posteriorly Cor RRR Abd soft pos abdominal wal edema, 3+ sacral edema Ext 2+ LE edema, scabs/ base /sides of foot/toes AVF good bruit Results Pertinent Lab Results: 134 / 89 / 32 5.8 / 16 / 4.9 Hg 12 WBC 9.1 Assessment/Plan Assessment/Recommendations Assessment: ESRD admitted with hypotension sepsis. Blood cultures being sent in ED and pt to start antibiotics. He has total volume overloaded but much of that is right sided at the present time. he did get 1L NS. Okay to use IVF but given anasarca would tolerate BP in the 80's as long as he is mentating normally. May require pressors if BP drops. I will arrange dialysis today without fluid removal. THanks will follow Serg Pradhan MD Recommendations: .
--- NOTE | 2018-02-14 15:04 | Cons- Cardiology ---
General Information and HPI Consulting Request Date of Consult: 02/14/18 Requested By: Tra ELDRIDGE,Hussain Mandel Reason for Consult: Coronary artery disease, cardiomyopathy History of Present Illness: The patient is a 68-year-old male with history coronary artery disease status post multiple stents, myocardial infarction, cardiomyopathy with severely decreased left ventricular ejection fraction, hypertension, peripheral vascular disease, and end-stage renal disease on dialysis. He is followed in the office by Dr. Lee. The patient was sent to the emergency department from his extended care facility because of lethargy and weakness. On arrival in the emergency department he is no dot chief over 40 shortness of breath is stable. Emergency department he was noted to have widening of his QRS complexes compared to prior EKGs. He was observed to have 2 witnessed seizures in the emergency department. He subsequently was noted to be in bradycardia followed by pulseless electrical activity. chest compressions were performed with resumption of carotid pulses. He was intubated and a central line was placed with initiation of pressor therapy he was admitted to the intensive care unit. While in the ICU, he was noted to have multiple runs of nonsustained ventricular tachycardia Allergies/Medications Allergies: Coded Allergies: hydromorphone (DEPRESSED RESPIRATIONS 01/18/17) Home Med List: Alprazolam (Xanax) 0.5 MG TABLET 1 TAB PO BID PRN ANXIETY Aspirin (Ecotrin*) 81 MG TABLET.DR 1 TAB PO DAILY HEART HEALTH (Reported) Clopidogrel Bisulfate (Plavix) 75 MG TABLET 75 MG PO DAILY ANTIPLATELET Ergocalciferol (Vitamin D2) (Vitamin D2) 50,000 UNIT CAPSULE 50,000 IU PO QTUES Vit D deficiency Folic Acid 1 MG TABLET 1 TAB PO DAILY SUPPLEMENT (Reported) Gabapentin 100 MG CAPSULE 100 MG PO DAILY Neuropathic pain Insulin Aspart (Novolog) 100 UNIT/ML CARTRIDGE 0 SC TIDAC DIABETES BEFORE MEALS... Blood Insulin Sugar Units <80 0 81-150 3 151-200 4 201-250 6 251-300 7 301-350 8 351-400 9 >400 10 Call Doctor Isosorbide Mononitrate (Isosorbide Mononitrate ER) 60 MG TAB.ER.24H 1 TAB PO DAILY CAD Levothyroxine Sodium 200 MCG TABLET 1 TAB PO DAILY AC THYROID (Reported) Melatonin 3 MG TABLET 1 TAB PO QPM SLEEP (Reported) Nitroglycerin 0.4 MG TAB.SUBL 1 TAB SL DAILY PRN CHEST PAIN (Reported) 1st sign of attack; may repeat every 5 minutes until relief; if pain persists after 3 tablets in 15 minutes, prompt medical att Ondansetron HCl (Zofran) 8 MG TABLET 1 TAB PO TID PRN NAUSEA/VOMITING ( Reported) Pantoprazole Sodium (Protonix) 40 MG TABLET.DR 1 TAB PO DAILY GI (Reported) Polyethylene Glycol 3350 (Miralax) 17 GRAM POWD.PACK 1 PAC PO DAILY CONSTIPATION (Reported) dissolve in water Sennosides/Docusate Sodium (Senna S Tablet) 8.6 MG-50 MG TABLET 2 TAB PO QPM CONSTIPATION (Reported) Sertraline HCl (Zoloft) 100 MG TABLET 1.5 TAB PO DAILY ANXIETY (Reported) Sevelamer Carbonate (Renvela) 800 MG TABLET 2 TAB PO TIDAC ERSD (Reported) Trazodone HCl 150 MG TABLET 1 TAB PO QPM SLEEP (Reported) Current Medications: Current Medications Sig/Julissa Start time Last Medication Dose Route Stop Time Status Admin Acetaminophen 0 .STK-MED ONE 02/14 1130 DC PO Acetaminophen 325 MG Q6P PRN 02/14 1115 AC 02/14 PO 1144 Alprazolam 0.5 MG BID PRN 02/14 1100 AC PO 02/21 1059 Amiodarone HCl/ 150 MG ONCE ONE 02/14 1700 CAN Dextrose IV 02/14 1709 N/A 1 UNIT Aspirin 81 MG DAILY 02/15 900 AC PO Aspirin Buffered 81 MG DAILY 02/14 1048 DC 02/14 PO 1140 Calcium Gluconate 1 GM ONCE ONE 02/14 1415 DC 02/14 Sodium Chloride 100 ML IV 02/14 1514 1409 Ceftazidime 1,000 MG DAILY 02/15 900 AC IV Ceftazidime 1,000 MG ONCE ONE 02/14 1400 DC 02/14 IV 02/14 1401 1407 Clopidogrel Bisulfate 75 MG DAILY 02/15 900 AC PO Clopidogrel Bisulfate 75 MG DAILY 02/14 1048 AC 02/14 PO 1140 Collagenase 1 ANGEL DAILY 02/14 1800 AC TOP Dextrose 25 GM ONCE ONE 02/14 1945 UNVr IV 02/14 1946 Dextrose 25 GM ONCE ONE 02/14 1700 DC 02/14 IV 02/14 1701 1732 Dextrose 25 GM ONCE ONE 02/14 1415 DC 02/14 IV 02/14 1416 1444 Dopamine HCl 400 MG Q12H 02/14 1415 AC 02/14 Dextrose/Water 500 ML IV 1814 Epoetin [place] 8,000 UNIT TuThSa PRN 02/14 1445 AC IV Ergocalciferol 50,000 IU QTUES 02/14 1105 AC 05/ PO 1140 Folic Acid 1 MG DAILY 02/14 1048 DC 02/14 PO 1140 Gabapentin 100 MG DAILY 02/15 0900 CAN PO Heparin Sodium 5,000 UNIT Q8 02/14 2200 UNVr (Porcine) SC Heparin Sodium 5,000 UNIT Q8 02/14 1400 AC 02/14 (Porcine) SC 1732 Hydrocortisone 100 MG Q8 02/14 2200 AC Sodium Succinate IV Hydrocortisone 100 MG ONE ONE 02/14 1400 DC 02/14 Sodium Succinate IV 02/14 1401 1407 Insulin Aspart 0 TIDAC 02/14 1200 DC 02/14 SC 1144 Insulin Human Regular 10 UNITS ONCE ONE 02/14 1415 DC 02/14 IV 02/14 1416 1445 Levetiracetam 500 MG ONCE ONE 02/14 1315 DC 02/14 N/A 1 UNIT IV 02/14 1329 1306 Levetiracetam 500 MG ONCE ONE 02/14 1245 DC 02/14 N/A 1 UNIT IV 02/14 1259 1249 Levetiracetam 1,000 MG ONCE ONE 02/14 1215 CAN N/A 1 UNIT IV 02/14 1229 Levetiracetam 500 MG STAT STA 02/14 1205 CAN N/A 1 UNIT IV 02/14 1219 Levothyroxine Sodium 100 MCG DAILY 02/15 0900 CAN IV Levothyroxine Sodium 200 MCG DAILY AC 02/15 0700 UNVr IV Levothyroxine Sodium 100 MCG ONCE ONE 02/14 1915 UNVr IV 02/14 1916 Levothyroxine Sodium 0.2 MG DAILY AC 02/14 1050 DC 02/14 PO 1140 Lorazepam 2 MG ONE ONE 02/14 1715 DC 02/14 IV 02/14 1716 1733 Lorazepam 2 MG ONE ONE 02/14 1430 DC / IV 02/14 1431 1330 Lorazepam 0 .STK-MED ONE 02/14 1243 DC .ROUTE Lorazepam 0.5 MG STAT STA 02/14 1236 DC 05/08 IV 0508 1237 1259 Melatonin 3 MG QPM 02/14 2100 CAN PO Norepinephrine 8 MG Q6H 02/14 1900 AC Sodium Chloride 250 ML IV Norepinephrine 4 MG Q24H 02/14 1400 DC 02/14 Sodium Chloride 250 ML IV / 1900 1407 Norepinephrine 8 MG ONCE ONE 02/14 1345 CAN Sodium Chloride 250 ML IV 02/14 1346 Norepinephrine 8 MG ONCE ONE 02/14 1345 CAN Sodium Chloride 250 ML IV 02/14 1346 Norepinephrine 8 MG ONCE ONE 02/14 1345 DC 05 Sodium Chloride 250 ML IV 05 1346 1315 Norepinephrine 0 .STK-MED ONE 02/14 1255 DC IV Omeprazole 40 MG DAILY AC 02/14 1051 DC 02/14 PO 1140 Ondansetron HCl 4 MG ONCE ONE 02/14 1215 DC 05/ IV 02/14 1216 1210 Ondansetron HCl 0 .STK-MED ONE 02/14 1212 DC .ROUTE Pantoprazole Sodium 40 MG DAILY 02/14 1915 DCr IV Pantoprazole Sodium 40 MG DAILY 02/14 1327 AC 05 IV 1409 Phenylephrine HCl 40 MG Q4H 02/14 1900 AC Sodium Chloride 250 ML IV Phenylephrine HCl 40 MG Q24H 02/14 1445 DC 02/14 Sodium Chloride 250 ML IV 02/14 1900 1814 Polyethylene Glycol 17 GM DAILY 02/15 0900 AC PO Sertraline HCl 150 MG DAILY 02/15 0900 CAN PO Sevelamer Carbonate 1,600 MG TIDAC 05 1200 AC 05/08 PO 1140 Sodium Bicarbonate 100 MEQ Q10H 02/14 1500 DC Dextrose/Water 1,000 ML IV Sodium Bicarbonate 50 MEQ ONCE ONE 02/14 1400 DC 05/08 IV 02/14 1401 1406 Sodium Chloride 500 ML BOLUS ONE 02/14 1500 DC 05/08 IV 02/14 1559 1506 Sodium Chloride 250 ML BOLUS ONE 02/14 0930 DC 05/08 IV 02/14 1029 0933 Sodium Chloride 500 ML BOLUS ONE 02/14 0815 DC /08 IV 02/14 0914 0820 Sodium Chloride 250 ML BOLUS ONE 02/14 0745 DC 05/ IV 02/14 0844 0740 Trazodone HCl 150 MG AT BEDTIME 02/14 2100 CAN PO Valproate Sodium 500 MG Q12H 02/14 2300 CAN Sodium Chloride 50 ML IV Valproate Sodium 500 MG Q12H 02/14 2300 AC Sodium Chloride 50 ML IV Valproate Sodium 1,350 MG ONCE ONE 02/14 1500 DC / Sodium Chloride 100 ML IV 02/14 1608 1509 Vancomycin HCl 1,000 MG Q24H 02/15 1400 AC Sodium Chloride 250 ML IV Vancomycin HCl 2,000 MG ONCE ONE 02/14 1400 DC / Sodium Chloride 500 ML IV 02/14 1559 1407 Vasopressin 40 UNITS Q16H 02/14 1400 AC 05/08 Sodium Chloride 100 ML IV 1406 Review of Systems Review of Systems: Review of systems is not obtainable because the patient is intubated Past History Travel History Traveled to [place] past 21 day No Medical History Neurological: proximal muscle pain & weakness UE/LE B/L EENT: NONE Cardiovascular: CAD, hypertension, hyperlipidemia, PVD, 6 CARDIAC STENTS Respiratory: COPD (on 2lpm O2) Gastrointestinal: hx colon polyps Hepatic: cholelithiasis (vs. 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 FH: heart disease MOTHER, , Age 85; Cause: ASHD (arteriosclerotic heart disease). Relation not specified for: FH: diabetes mellitus FH: hypertension Psychosocial History Who Do You Live With? girlfriend Services at Home: Home Health Aide, Nursing, Oxygen, Physical Therapy Primary Language: [place]an ETOH Use: denies use Illicit Drug Use: denies illicit drug use Living Will? no Power of Computer Technologist/HCP? no Functional Ability ADLs Independent: dressing, eating, toileting, bathing. Ambulation: independent (and/or rolling walker), cane IADLs Independent: shopping, housework, finances, food prep, telephone, transportation , medication admin. Exam & Diagnostic Data Vital Signs and I&O Vital Signs Date Time Temp Pulse Resp B/P B/P Pulse O2 O2 Flow FiO2 Mean Ox Delivery Rate 02/14 1814 99 115/88 02/14 1800 97.0 100 20 110/0 96 Ventilator 100% 05/ 1606 100 / 1600 96 Ventilator 100% / 1411 63 74/00 /08 1407 70/0 / 1400 100 / 1330 Ventilator 60% 05/08 1315 96.0 88 20 80/00 /08 1301 80/00 /08 1300 60 /08 1204 62/38 / 1050 96.0 88 20 80/50 98 Nasal 5.0L Cannula 02/14 1001 87 20 80/50 100 Nasal 5.0L Cannula 02/14 0921 96.0 88 20 80/40 Nasal 5.0L Cannula 02/14 0808 87 20 80/40 90 Nasal 5.0L Cannula 02/14 0730 90 Nasal 5.0L Cannula 02/14 0715 97.0 90 20 60/40 Nasal 2.0L Cannula Intake & Output 02/14 1600 08 0800 08 0000 02/13 1600 02/13 0800 02/13 0000 Intake Total 2372 Output Total Balance 2372 Intake, IV 2372 Patient 196 lb 280 lb Weight Weight Bed scale Estimated Measurement Method Physical Exam: Gen: The patient is intubated HEENT: Normal nose, ears, and oropharynx. Pupils equal bilaterally. Conjunctiva normal. Neck: Supple with no JVD, no masses, and no thyromegaly Lungs: Decreased breath sounds on ventilator Heart: RRR, S1, S2, 1.6 systolic murmur. No peripheral edema, 2+ pulses in the lower extremities bilaterally Abdomen: Soft, nontender, no masses. No hepatomegaly. No splenomegaly Extremities: No clubbing or cyanosis. Normal muscle strength in the upper and lower extremities. Skin: Normal skin turgor with no skin ulcers or lesions noted. Neuro: Cranial nerves grossly intact. Sensation intact Psych: Intubated Labs/Angus Results: Laboratory Tests 02/14 1930 1635 1635 Blood Gas pH (7.35 - 7.45 PH) 7.11 *L pCO2 (35 - 45 TORR) 22 L pO2 (80 - 100 TORR) 101 H HCO3 (21 - 28 MEQ/L) 7 L ABG O2 Sat (Measured) (>96.0 %) 94.0 L Carboxyhemoglobin (1.5 - 5.0 %) 1.0 L O2 Concentration % 70% Respiration Rate (BPM) 20 O2 Delivery Method VENT Vent Mode AC Expiratory Pressure (CMH2O/P) 5 Tidal Volume (CC) 500 Pressure Support (CMH2O/P) 0 Chemistry Sodium (137 - 145 mmol/L) 137 Potassium (3.5 - 5.1 mmol/L) 3.5 Chloride (98 - 107 mmol/L) 97 L Carbon Dioxide (22 - 30 mmol/L) 18 L Anion Gap (5 - 16) 23 H BUN (9 - 20 mg/dL) 16 Creatinine (0.7 - 1.2 mg/dL) 2.2 H Estimated GFR (>60 ml/min) 30 L Glucose (65 - 99 mg/dL) 99 Lactic Acid (0.7 - 2.1 mmol/L) Pending 6.4 H Calcium (8.4 - 10.2 mg/dL) 6.9 L Phosphorus (2.5 - 4.5 mg/dL) 2.9 Magnesium (1.6 - 2.3 mg/dL) 1.9 Total Bilirubin (0.2 - 1.3 mg/dL) 2.8 H AST (17 - 59 U/L) 39 ALT (21 - 72 U/L) 24 Albumin (3.5 - 5.0 g/dL) 3.0 L Miscellaneous Phlebotomy Draw Site RIGHT RADIAL 02/14 02/14 02/14 02/14 1435 1401 1400 1400 Blood Gas pH (7.35 - 7.45 PH) 7.16 *L pCO2 (35 - 45 TORR) 24 L pO2 (80 - 100 TORR) 133 H HCO3 (21 - 28 MEQ/L) 8 L ABG O2 Sat (Measured) (>96.0 %) 96.0 P-50 (Temp Corrected) N Carboxyhemoglobin (1.5 - 5.0 %) 1.0 L O2 Concentration % 100% Respiration Rate (BPM) 20 O2 Delivery Method VENT Vent Mode AC Expiratory Pressure (CMH2O/P) 5 Tidal Volume (CC) 500 Pressure Support (CMH2O/P) 0 Chemistry Sodium (137 - 145 mmol/L) 133 L Potassium (3.5 - 5.1 mmol/L) 5.8 H Chloride (98 - 107 mmol/L) 90 L Carbon Dioxide (22 - 30 mmol/L) 13 L Anion Gap (5 - 16) 31 H BUN (9 - 20 mg/dL) 32 H Creatinine (0.7 - 1.2 mg/dL) 5.1 *H Estimated GFR (>60 ml/min) 11 L Glucose (65 - 99 mg/dL) 139 H Lactic Acid (0.7 - 2.1 mmol/L) Cancelled 9.5 H Calcium (8.4 - 10.2 mg/dL) 7.0 L Phosphorus (2.5 - 4.5 mg/dL) 6.4 H Magnesium (1.6 - 2.3 mg/dL) 2.3 Total Bilirubin (0.2 - 1.3 mg/dL) 2.8 H AST (17 - 59 U/L) 26 ALT (21 - 72 U/L) 20 L Troponin I (<0.11 ng/ml) 0.06 Albumin (3.5 - 5.0 g/dL) 3.2 L TSH (0.270 - 4.200 uIU/mL) 66.700 H Free T4 (0.78 - 2.44 ng/dL) 0.62 L Total T3 (0.97 - 1.69 ng/mL) 0.52 L Cortisol PM Sample (1.7 - 14.1) 59.9 H Miscellaneous Phlebotomy Draw Site RIGHT BRACHIAL 02/14 02/14 02/14 1215 1214 1207 Blood Gas pH (7.35 - 7.45 PH) 7.23 *L pCO2 (35 - 45 TORR) 22 L pO2 (80 - 100 TORR) 320 H HCO3 (21 - 28 MEQ/L) 9 L ABG O2 Sat (Measured) (>96.0 %) 100.0 Carboxyhemoglobin (1.5 - 5.0 %) 1.2 L O2 Concentration % 100% O2 Delivery Method NRB Chemistry Lactic Acid (0.7 - 2.1 mmol/L) 5.0 H Prolactin (3.7 - 17.9 ng/mL) 91.3 H Miscellaneous Phlebotomy Draw Site RIGHT BRACHIAL 02/14 0740 Chemistry Sodium (137 - 145 mmol/L) 134 L Potassium (3.5 - 5.1 mmol/L) 5.8 H Chloride (98 - 107 mmol/L) 89 L Carbon Dioxide (22 - 30 mmol/L) 16 L Anion Gap (5 - 16) 29 H BUN (9 - 20 mg/dL) 32 H Creatinine (0.7 - 1.2 mg/dL) 4.9 H Estimated GFR (>60 ml/min) 12 L BUN/Creatinine Ratio (7 - 25 %) 6.5 L Glucose (65 - 99 mg/dL) 184 H Lactic Acid (0.7 - 2.1 mmol/L) 5.4 H Calcium (8.4 - 10.2 mg/dL) 7.4 L Magnesium (1.6 - 2.3 mg/dL) 2.2 Total Bilirubin (0.2 - 1.3 mg/dL) 2.6 H AST (17 - 59 U/L) 21 ALT (21 - 72 U/L) 19 L Alkaline Phosphatase (< 127 U/L) 540 H Troponin I (<0.11 ng/ml) 0.04 Total Protein (6.3 - 8.2 g/dL) 6.2 L Albumin (3.5 - 5.0 g/dL) 3.5 Globulin (1.9 - 4.2 gm/dL) 2.7 Albumin/Globulin Ratio (1.1 - 2.2 %) 1.3 Coagulation PT (9.4 - 12.5 SEC) 15.2 H INR (0.90 - 1.17) 1.39 H D-Dimer High Sensitivty (0 - 243 ng/ml) 718 H Hematology CBC w Diff NO MAN DIFF REQ WBC (4.8 - 10.8 /CUMM) 9.1 RBC (4.70 - 6.10 /CUMM) 4.20 L Hgb (14.0 - 18.0 G/DL) 12.9 L Hct (42 - 52 %) 39.5 L MCV (80.0 - 94.0 FL) 94.2 H MCH (27.0 - 31.0 PG) 30.7 MCHC (33.0 - 37.0 G/DL) 32.6 L RDW (11.5 - 14.5 %) 18.1 H Plt Count (130 - 400 /CUMM) 215 MPV (7.4 - 10.4 FL) 8.8 Gran % (42.2 - 75.2 %) 79.9 H Lymphocytes % (20.5 - 51.1 %) 13.4 L Monocytes % (1.7 - 9.3 %) 6.3 Eosinophils % (0 - 5 %) 0.1 Basophils % (0.0 - 2.0 %) 0.3 Absolute Granulocytes (1.4 - 6.5 /CUMM) 7.3 H Absolute Lymphocytes (1.2 - 3.4 /CUMM) 1.2 Absolute Monocytes (0.10 - 0.60 /CUMM) 0.6 Absolute Eosinophils (0.0 - 0.7 /CUMM) 0 Absolute Basophils (0.0 - 0.2 /CUMM) 0 Diagnostic Data EKG Results Sinus rhythm with LBBB CXR Results 1. No interval change in positioning of the endotracheal tube tip, which remains at the level of the tracheal bifurcation. 2. Volume loss in right lung base and associated small pleural effusion again noted. Other Results Lower extremity Doppler study: No evidence of deep venous thrombosis involving the lower extremities from the popliteal veins upwards. Left-sided Iyer's cyst. Calf veins are not optimally visualized. Echocardiogram February 14, 2018: 1. Mild to moderate aortic sclerosis is present with no valvular stenosis or insufficiency. 2. Mitral leaflet thickening is present with mild to moderate anular calcification and moderate mitral insufficiency with moderate left atrial enlargement. 3. There is no pericardial fluid present. A moderate left pleural effusion is present. 4. The left ventricular chamber is upper normal in size with global hypokinesia which is worse in the anteroseptal and apical segments. The ejection fraction is approximately 20-25%. Flattening of the interventricular septum is present consistent with the presence of pulmonary hypertension. 5. Right heart chamber enlargement is present with moderate to moderately severe tricuspid insufficiency and an estimated RV systolic pressure of at least 42 mmHg. Assessment/Plan Assessment/Plan 68-year-old male with history of coronary artery disease, diabetes mellitus, end-stage renal disease, and cardiomyopathy brought to the hospital after decreased responsiveness and recurrent seizures. His noted to have increased QRS with compared to prior EKG. He is hypotensive and breast with therapy has been initiated. Nonsustained ventricular tachycardia is noted. Recommendations: * Continue pressor support to maintain adequate blood pressure * If persistent recurrences of ventricular tachycardia are noted, would consider giving bolus of IV amiodarone 150 milligrams. This could be followed by amiodarone drip if needed. * Initial 2 troponin levels are negative and there is no evidence at this time of acute coronary syndrome * Continue aspirin and Plavix * Hold other cardiac medications until hypotension improved Consult Acknowledgment - Thank you for your consult request.
--- NOTE | 2018-02-14 16:30 | RADIOLOGY REPORT ---
EXAMINATION: XR PORTABLE CHEST CLINICAL INFORMATION: Post intubation. COMPARISON: Several prior chest x-rays, most recent of which is dated 02/14/2018. TECHNIQUE: Portable AP supine view of the chest was obtained. FINDINGS: Evaluation is limited with incomplete inclusion of the right lower chest. Endotracheal tube is in place with tip at the level of the navid. Several EKG leads overlie the chest. Lower cervical spine fusion hardware is seen. The cardiomediastinal silhouette is enlarged, unchanged. A left subclavian stent is in place. There is asymmetric elevation of the right hemidiaphragm again seen, unchanged from the prior exam and shown to represent a combination of elevation of right hemidiaphragm, pleural effusion and volume loss and atelectasis in the right lower lobe on CT scan from 01/05/2018. No definite left-sided effusion is appreciated on plain film. There is central vascular congestion. No overt pulmonary edema. No pneumothorax. Osteopenia is noted. IMPRESSION: 1. Endotracheal tube tip is seen extending to the level of the navid. The endotracheal tube should be withdrawn 2 to 3 cm for more optimal positioning. 2. Increased density in the right lung base, likely due to a combination of elevation of hemidiaphragm, small effusion and associated atelectasis or consolidation in the lower lobe.
--- NOTE | 2018-02-14 17:19 | ECHOCARDIOGRAM REPORT ---
DEEPIKA BRANDT Age: 68 : 1950 Gender: M Exam Date: 02/14/2018 14:50 Exam Location: [facility] Ht (in): 70 Wt (lb): 280 BSA: 2.56 BP: 80 / 0 Ordering Physician: Jose Angel Zamudio MD Referring Physician: Jose Angel Zamudio MD Technologist: Pebbles Joseph CELINA Room Number: 114 Indications: CARDIOMYOPATHY Rhythm: Sinus Technical Quality: Fair FINDINGS Left Ventricle Left ventricular cavity size at the upper limits of normal. Severely reduced global left ventricular systolic function. Moderately abnormal left ventricular ejection fraction estimated at 20-25%. Right Ventricle Right ventricular dilatation. Right Atrium Right atrial dilatation. Left Atrium Moderate left atrial dilatation. Mitral Valve Mitral valve thickened. Mitral annular calcification. Moderate mitral regurgitation. Aortic Valve Trileaflet aortic valve. Diffuse thickening (sclerosis) of the aortic valve cusps without reduced excursion. No aortic stenosis. No aortic regurgitation. Tricuspid Valve Tricuspid valve not well visualized, grossly normal. Moderate-to- severe tricuspid regurgitation. Right ventricular systolic pressure estimated at 40 mmHg. Pulmonic Valve Pulmonic valve not well visualized, grossly normal. Mild pulmonic regurgitation. Pericardium No pericardial effusion pleural effusion. Great Vessels Aortic root and proximal ascending aorta not well visualized, grossly normal. CONCLUSIONS 1. Mild to moderate aortic sclerosis is present with no valvular stenosis or insufficiency. 2. Mitral leaflet thickening is present with mild to moderate anular calcification and moderate mitral insufficiency with moderate left atrial enlargement. 3. There is no pericardial fluid present. A moderate left pleural effusion is present. 4. The left ventricular chamber is upper normal in size with global hypokinesia which is worse in the anteroseptal and apical segments. The ejection fraction is approximately 20-25%. Flattening of the interventricular septum is present consistent with the presence of pulmonary hypertension. 5. Right heart chamber enlargement is present with moderate to moderately severe tricuspid insufficiency and an estimated RV systolic pressure of at least 42 mmHg. Lilibeth Lee M.D. (Electronically Signed) Final Date: 14 Feb 2018 17:18 MEASUREMENTS (Male / Female) Normal Values 2D ECHO LV Diastolic Diameter PLAX 5.5 cm 4.2 - 5.9 / 3.9 - 5.3 cm LV Systolic Diameter PLAX 4.9 cm 2.1 - 4.0 cm LV Fractional Shortening PLAX 10.9 % 25 - 46 % LV Ejection Fraction 2D Teich 23.5 % IVS Diastolic Thickness 1.0 cm LVPW Diastolic Thickness 1.1 cm LV Relative Wall Thickness 0.4 RV Internal Dim ED PLAX 3.5 cm 1.9 - 3.8 cm LVOT Diameter 1.9 cm Aortic Root Diameter 3.0 cm LA Systolic Diameter LX 5.2 cm 3.0 - 4.0 / 2.7 - 3.8 cm LA Volume 106.0 cm 18 - 58 / 22 - 52 cm Ascending Aorta Diameter 3.1 cm DOPPLER AV Peak Velocity 81.6 cm/s AV Peak Gradient 2.7 mmHg AV Mean Velocity 54.7 cm/s AV Mean Gradient 1.0 mmHg AV Velocity Time Integral 9.8 cm LVOT Peak Velocity 42.1 cm/s LVOT Peak Gradient 0.7 mmHg LVOT Mean Velocity 27.4 cm/s LVOT Mean Gradient 0.0 mmHg LVOT Velocity Time Integral 5.1 cm LVOT Stroke Volume 14.5 cm AV Area Cont Eq vti 1.5 cm AV Area Cont Eq pk 1.5 cm MV Peak Velocity 92.0 cm/s MV Peak Gradient 3.4 mmHg MV Mean Velocity 53.5 cm/s MV Mean Gradient 1.0 mmHg MV PHT Velocity 97.0 cm/s MV Deceleration [place] 806.0 cm/s MV Pressure Half Time 36.1 ms MV Area PHT 6.1 cm TR Peak Velocity 290.0 cm/s TR Peak Gradient 33.6 mmHg Right Atrial Pressure 10.0 mmHg Pulmonary Artery Systolic Pressu 43.6 mmHg Right Ventricular Systolic Press 43.6 mmHg LV E' Lateral Velocity 12.4 cm/s LV E' Septal Velocity 3.9 cm/s
[2018-02-14 18:00] VITALS: BP 110/0
--- NOTE | 2018-02-14 18:37 | RADIOLOGY REPORT ---
EXAMINATION: XR PORTABLE CHEST CLINICAL INFORMATION: Intubated patient. Check for placement of endotracheal tube. COMPARISON: Chest x-ray from earlier today. TECHNIQUE: Portable frontal view of the chest was obtained. FINDINGS: Endotracheal tube tip remains at the level of the tracheal bifurcation, unchanged from prior exam. Enteric tube extends into the abdomen with tip not included. EKG leads overlie the chest. There has been no interval change in the elevation of the right hemidiaphragm and associated right basilar atelectasis and effusion. Mild central vascular congestion is noted. No pneumothorax is seen. Bony structures are unremarkable. IMPRESSION: 1. No interval change in positioning of the endotracheal tube tip, which remains at the level of the tracheal bifurcation. 2. Volume loss in right lung base and associated small pleural effusion again noted. This urgent result was discussed with Dr. Booker Burr 02/14/2018, 6:30 PM and it was ascertained that the content and urgency of this report was understood at the time of direct communication.
--- NOTE | 2018-02-14 19:17 | Event Note ---
Event Note Event Note: Reviewed the labs from the pm, after he was hemodialyzed. He was found to have potassium of 3.5, bicarbonate 18, creatinine 2.2. An ABG was done which revealed pH of 7.11, PCO2 22, PO2 101. Since he was on multiple pressors, HCO3 drip was started given his acidemic state. He was also found to have NSVT of upto 11 beats, after the HD session. Dr. Zamudio was contacted, and plan to give amiodarone, if the pt has persistent NSVTs. He continued to be in normal sinus rhythm, and did not require any dose of amiodarone. Chest x-ray was repeated after ET tube was adjusted, which was found to be extending to the level of navid and was recommended to be withdrawn to-3 cm for optimal positioning. Informed the electronics warfare technician, who withdrew the ET tube to approximately 2-3 cm. The chest x-ray was done which did not reveal any significant change in the position of ET tube. As per the discussion with Dr. Dutta, the plan was to get a repeat chest x-ray with appropriate positioning of neck to be able to evaluate an exact positioning of ET tube. The electronics warfare technician, was informed who adjusted the ET tube, and the repeat chest x ray revealed terminating 9 cm above the navid. The RT was informed to advance the ET tube, and plan was to get a chest x ray. During the day, the dopamine drip was titrated down as tolerated. There was a plan to get CTA PE protocol and CT abdomen w/ pelvis, and Ms. Darnell was contacted to get a consent for intravenous contrast infusion. She did not want to get the CT scan done, and I explained to her about risks vs benefits. She wanted to discuss w/ Dr. Dutta in the morning before any tests are done. She was concerned about the costs of these tests. After Mr Dodd , informed Dr. Dutta. Rec'ed a phone call from [facility], ET tube is jose angel 9cm above the navid, which needs to be advanced by 4 cm. Informed the RT, and plan to get a follow up cxr.
[2018-02-14 19:51] VITALS: BP 107/87
--- NOTE | 2018-02-14 21:02 | RADIOLOGY REPORT ---
EXAMINATION: XR PORTABLE CHEST CLINICAL INFORMATION: Status post intubation. COMPARISON: Chest x-rays from earlier today. TECHNIQUE: Portable AP semierect view of the chest was obtained. FINDINGS: Endotracheal tube tip is approximately 1.3 cm above the level of the navid. Enteric tube courses into the abdomen with tip not included. EKG leads overlie the chest. The cardiac silhouette is now obscured by bilateral parenchymal opacities, which are progressive when compared to prior study and may be related to underinflation or interval development of edema. Previously noted right-sided pleural effusion and right basilar consolidation are also seen. No pneumothorax is noted. IMPRESSION: 1. Endotracheal tube tip remains just above the level of the navid. 2. Enteric tube courses into the abdomen with tip not included. 3. Increasing pulmonary opacities are seen bilaterally, perhaps related to underinflation versus interval development of pulmonary edema. Close clinical correlation is requested. 4. No change in right basilar consolidation, effusion, and volume loss.
--- NOTE | 2018-02-14 23:14 | RADIOLOGY REPORT ---
EXAMINATION: XR PORTABLE CHEST CLINICAL INFORMATION: Intubation. Endotracheal tube readjustment. COMPARISON: Multiple priors, most recently earlier today at 7:00 PM TECHNIQUE: Portable frontal view of the chest was obtained. FINDINGS: The endotracheal tube has been retracted, now terminating 9 cm above the navid. This is above the level of the clavicles. An enteric tube is in place with the distal aspect not seen. Cardiac leads overlie the chest. Lung volumes are low. There is elevation of the right hemidiaphragm with bibasilar opacities present. This is similar to prior. There is no pneumothorax. The cardiac silhouette remains prominent. Cervical fusion hardware noted. IMPRESSION: 1. Endotracheal tube retracted, now terminating 9 cm above the navid. Advancement is recommended. 2. Similar appearance of the lungs to the prior study with hazy opacities of the lung bases. This critical result was discussed with Neymar Burr MD by telephone at 02/14/2018 11:09 PM and it was ascertained that the content and urgency of the report was understood at the time of direct communication.
--- NOTE | 2018-02-14 23:55 | Event Note ---
Event Note Event Note: at 11:40 I called the pt friend Deepali because the patient bradycardia then he had pulseless electrical activity, I explained what happened to his friend that his heart stopped beating and he was currently intubated, she confirmed that she does not want resuscitation and state that she has an appointment with Dr. Dutta in the morning however she was come to the hospital to see him now. At 11:42 patient ,puplis were dilated and fixed, no pulse or BP, no cardiac activity on the monitor. Attendant Dr. Garcia was at the bed side and she examined the pt as well. His friend Deepali was updated, and she says she will come in the morning to see him and arrange for chief medical examier was called , ME case no [id number], and no case for autopsy
--- NOTE | 2018-02-24 14:00 | Discharge Summary ---
Visit Information Visit Dates Admission Date: 02/14/18 Discharge Date: 02/14/18 Hospital Course Course Attending Physician: Tra ELDRIDGE,Hussain Mandel Primary Care Physician: Kurt ELDRIDGE,Juan Houser Hospital Course: this is an unfortunate gentleman with multiple organ failure including renal failure, recent sepsis and discharged from this hospital, significant coronary artery disease with very severe ischemic cardiomyopathy with EF of 20%, multiple stents in the past, severe peripheral vascular disease with recent instrumentation of both lower extremity, previous thyroid malignancy, recent skin issues with suspicion for calciphylaxis but biopsy unremarkable with recurrent infection with staph, right heart failure with ascites with no clinical evidence suggestive of shrunken liver with dysfunctional liver disease, on and off cellulitis, chronic chest discomfort, incidental renal mass, multiple electrolyte abnormality, hypertension, hyperlipidemia, chronic anxiety and pain, now came in with recurrent seizure Since admission he has been hypotensive which responded well to fluid resuscitation. Patient has had no fever no chills no cough and his review of symptoms was otherwise unremarkable. His white count was not elevated. However he had significant low flow state and was fluid resuscitated. Subsequently he did have recurrent seizure and episodes of vomiting as well and had to be intubated. Ariane intubation patient did have quite complex rhythm and subsequently did lost his pulse and had to have a short period of chest compressions. Subsequently pt went into profound shock due to severe rv failure due to severe pulm htn and dilated rv Initially when I had examined the patient in the morning he was alert awake and oriented 3, no headache no neck stiffness, no cough or sputum, no abdominal pain or discomfort, he did have complaints of skin lesions. He did explicitly indicate to me that he wanted to be intubated etc. but he only wanted one attempt for CPR if he did have cardiopulmonary arrest. He wanted his significant other Carie to make all his decisions if he were to be incapacitated. ISSUES Profound hypotension upon admission which responded to fluid boluses with no fever no white count with significant ascites BD edema highly suggestive of very severe right heart failure in a gentleman with low ejection fraction with low flow state including metabolic acidosis. Multiple skin lesions with recent sepsis with no clinical evidence suggestive of active septicemia however this cannot be ruled out. ID eval done no active sepsis and all his cultures were neg and there was no signs of sepsis Severe renal failure and electrolyte abnormality due to profound heart failure, cardio eval urgenly done no tamponade etc Profound ischemic cardiomyopathy with low ejection fraction, intraventricular abnormalities in the EKG, on and off broad complex tachycardia. Upon admission Severe metabolic acidosis with severe renal failure, lactic acidosis after seizures and due to low flow state Recurrent new onset seizure initial focality probably related to electrolyte abnormality versus ischemic injury to the brain. No clinical evidence suggestive of meningitis as when I had examined in the morning he was showing no signs of meningismus and he had no neck stiffness etc. Altered LFTs, profound ascites which has been present in the past, previous GI evaluation suggestive ofsignificant cirrhosis however this may be all related to profound right heart failure with congestion of the liver. Patient does have normal INR and normal albumin which was 3.5 this morning suggestive of preserved synthetic function however his bilirubin is significantly elevated and he has chronically elevated alkaline phosphatase etc. putting him at high risk for chronic liver disease Significant COPD on 2 L nasal cannula with chronic lung disease with previous history of smoking area no evidence suggestive of active COPD exacerbation Severe peripheral vascular disease with recent lower extremity stent placement bilaterally. Patient seems to be perfusing his lower extremity, no DVT noted Hypertension, hyperlipidemia, chronic back pain, type 2 diabetes which needs to be evaluated and followed while he is here HOSPITAL COURSE Pt went into profound shock due to rv failure, and was treated with ivf adn multiple vasopressors and did not respond. Pt had cardio and id and emergent renal eval, and he did under go emergent dialysis aswell despite shock due to severe electrolyte abnormalities but his over all situation did deteriorate Pts wishes were clear that he did not want to pursue agg care after inital resusitation effort and his sig other did make the patient dnr and aft which he went into persistant rt heart failue and eventually became estevan despite max pressors and pt peacefully and his Sig other was informed aswell Allergies: Coded Allergies: hydromorphone (DEPRESSED RESPIRATIONS 01/18/17) Disposition Summary Disposition Principal Diagnosis: Cardiogenic shock due to RV failure Additional Diagnosis: Recurrent seizures Ischemic cardiomyopathy ESRD cirrhosis CAd Discharge Disposition: Discharge Instructions General Discharge Information Code Status: Do Not Resucitate (passed ) Patient's Diet: Patient's Activity: Follow-Up Instructions/Appts: Copies To: Kurt ELDRIDGE,uJan Houser Attending MD Review Statement Documenting Attending: Tra ELDRIDGE,Hussain Mandel
== END 2018-02-14 23:42 | disposition expired | DRG 291 ==
LOC: ERH 07:08 → ERHI 09:15 → ENRESERV 11:46 → CRI 13:27
PROVIDERS: Emergency Medicine
PROC: 0BH17EZ Insertion of Endotracheal Airway into Trachea, Via Natural or Artificial Opening (ICD-10-PCS; principal; 2018-02-14)
PROC: 5A1935Z Respiratory Ventilation, Less than 24 Consecutive Hours (ICD-10-PCS; 2018-02-14)
PROC: 02HV33Z Insertion of Infusion Device into Superior Vena Cava, Percutaneous Approach (ICD-10-PCS; 2018-02-14)
PROC: 5A1D70Z Performance of Urinary Filtration, Intermittent, Less than 6 Hours Per Day (ICD-10-PCS; 2018-02-14)
DX: I50.812 Chronic right heart failure (principal); N18.6 End stage renal disease; R57.0 Cardiogenic shock; I13.2 Hypertensive heart and chronic kidney disease with heart failure and with stage 5 chronic kidney disease, or end stage renal disease; E87.2 Acidosis; I95.89 Other hypotension; E11.22 Type 2 diabetes mellitus with diabetic chronic kidney disease; L97.419 Non-pressure chronic ulcer of right heel and midfoot with unspecified severity; R56.9 Unspecified convulsions; E11.51 Type 2 diabetes mellitus with diabetic peripheral angiopathy without gangrene; I42.9 Cardiomyopathy, unspecified; E11.621 Type 2 diabetes mellitus with foot ulcer; Z99.81 Dependence on supplemental oxygen; J44.9 Chronic obstructive pulmonary disease, unspecified; I25.10 Atherosclerotic heart disease of native coronary artery without angina pectoris; Z98.61 Coronary angioplasty status; E78.5 Hyperlipidemia, unspecified; I73.9 Peripheral vascular disease, unspecified; F41.9 Anxiety disorder, unspecified; F32.9 Major depressive disorder, single episode, unspecified; Z85.850 Personal history of malignant neoplasm of thyroid; Z79.82 Long term (current) use of aspirin; Z79.4 Long term (current) use of insulin; Z98.1 Arthrodesis status; I50.9 Heart failure, unspecified; Z99.2 Dependence on renal dialysis
CPT/HCPCS: CCU; 36415; 71045; 82436; 87040; 87070; 87086; 93005; 93010; 93306; 93970; 94799; 96360; 96374; 99291; J0610; J0713; J0885; J1265; J1644; J1720; J1815; J1953; J2001; J2060; J2405; J3010; J3370; J3490; J7040; J7060